=== PATIENT | female | born 1955 | race Caucasian/White ===

== ENCOUNTER 2023-06-15 20:23 | Observation (INO) | payer MEDICARE, SELFPAY ==
[2023-06-15] VITALS (32 sets, daily range): BP systolic 128–182; BP diastolic 69–104; PULSE 64–84; RESP 11–28; O2SAT 94–97; BMI 34.6
--- NOTE | 2023-06-15 20:39 | ECG_ITS ---
[facility] Test Date: 2023-06-15 Pat Name: MARTHA AVILA Department: Room: 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
--- NOTE | 2023-06-15 20:39 | XR_ITS ---
The [address] [address] Patient Name: MARTHA AVILA MRN: [id number] date: 1955 Sex: F Assigned Patient Location: ED.MAIN Current Patient Location: ER Accession/Order Number: [id number] Exam Date: 06/15/2023 21:19 Report Date: 06/15/2023 21:42 At the request of: MELLISSA WALKER Procedure: XR chest 1V EXAM: XR chest 1V HISTORY: Chest pain COMPARISON: 03/28/2022. TECHNIQUE: AP view of the chest FINDINGS: There is no focal airspace consolidation. There are mild reticular opacities in bilateral lower lungs and lingula, consistent with scarring or mild atelectasis. The cardiomediastinal silhouette is not enlarged. Median sternotomy wires and mediastinal surgical clips consistent with CABG. No evidence of pleural effusion or pneumothorax are identified. No acute osseous abnormality. XR/XR chest 1V IMPRESSION: No acute cardiopulmonary process. EXAM: XR shoulder LT min 2V HISTORY: Numbness in the left arm. COMPARISON: 06/29/2019. TECHNIQUE: 3 views of the left shoulder were obtained. FINDINGS: There is no radiographic evidence of acute fracture or dislocation. No significant focal osseous or articular abnormalities are identified. Soft tissues are grossly within normal limits. IMPRESSION: No acute osseous or joint abnormality. Electronically authenticated by: ISRA VINESU Date: 06/15/2023 21:42
[2023-06-15] MEDS: NITROGLYCERIN 0.4 MG TAB.SUBL PO (20:43)
[2023-06-15 20:48] LABS: Basophils Absolute Auto 0.1 10^3/uL (0.0-0.1); Basophils Percent Auto 1.1 % (0.2-2.0); Eosinophils Absolute Auto 0.5 10^3/uL (0.0-0.7); Eosinophils Percent Auto 4.3 % (0.9-7.0); Hematocrit 40.6 % (36.0-48.0); Hemoglobin 14.2 g/dL (12.0-16.0); Immature Granulocytes Abs Auto 0.04 10^3/uL (0.00-0.03); Immature Granulocytes Pct Auto 0.4 % (0.0-0.5); Lymphocytes Absolute Auto 3.7 10^3/uL (1.2-3.8); Lymphocytes Percent Auto 33.7 % (20.5-60.0); Mean Corpuscular Hemoglobin 30.7 pg (26.7-34.0); Mean Corpuscular Volume 87.7 fL (81.0-99.0); Mean Platelet Volume 11.1 fL (9.5-13.5); Monocytes Absolute Auto 0.8 10^3/uL (0.3-0.8); Monocytes Percent Auto 7.1 % (1.7-12.0); Neutrophils Absolute Auto 5.9 10^3/uL (1.4-6.5); Neutrophils Percent Auto 53.4 % (43.0-75.0); Platelet Count 257 10^3/uL (150-450); Red Blood Count 4.63 10^6/uL (4.20-5.40); Red Cell Distribution Width 12.4 % (11.0-15.0); White Blood Count 11.1 10^3/uL (4.0-11.0)
--- NOTE | 2023-06-15 20:48 | XR_ITS ---
The [address] [address] Patient Name: MARTHA AVILA MRN: [id number] date: 1955 Sex: F Assigned Patient Location: ED.MAIN Current Patient Location: ER Accession/Order Number: [id number] Exam Date: 06/15/2023 21:19 Report Date: 06/15/2023 21:42 At the request of: MELLISSA WALKER Procedure: XR shoulder LT min 2V EXAM: XR chest 1V HISTORY: Chest pain COMPARISON: 03/28/2022. TECHNIQUE: AP view of the chest FINDINGS: There is no focal airspace consolidation. There are mild reticular opacities in bilateral lower lungs and lingula, consistent with scarring or mild atelectasis. The cardiomediastinal silhouette is not enlarged. Median sternotomy wires and mediastinal surgical clips consistent with CABG. No evidence of pleural effusion or pneumothorax are identified. No acute osseous abnormality. XR/XR shoulder LT min 2V IMPRESSION: No acute cardiopulmonary process. EXAM: XR shoulder LT min 2V HISTORY: Numbness in the left arm. COMPARISON: 06/29/2019. TECHNIQUE: 3 views of the left shoulder were obtained. FINDINGS: There is no radiographic evidence of acute fracture or dislocation. No significant focal osseous or articular abnormalities are identified. Soft tissues are grossly within normal limits. IMPRESSION: No acute osseous or joint abnormality. Electronically authenticated by: ISRA CASTELLON Date: 06/15/2023 21:42
[2023-06-15] MEDS: MORPHINE SULFATE 2 MG/ML SYRINGE IV (20:51)
--- NOTE | 2023-06-15 20:51 | ED.CHESTPAI1 ---
HPI - Chest Pain General Chief Complaint: Chest Pain Stated Complaint: CHEST PAIN Time Seen by Provider: 06/15/23 20:30 Related Data Home Medications Medication Instructions Recorded Confirmed carvedilol 25 mg tablet 25 mg PO DAILY 06/15/23 06/15/23 clopidogrel 75 mg tablet 75 mg PO DAILY 06/15/23 06/15/23 duloxetine 60 mg capsule,delayed 60 mg PO DAILY 06/15/23 06/15/23 release glimepiride 4 mg tablet 4 mg PO DAILY 06/15/23 06/15/23 insulin NPH-regular 70-30 U-100 subcut 06/15/23 insulin 100 unit/mL subcutaneous pen (Novolin 70-30 FlexPen U-100 Insulin) irbesartan 150 mg tablet 150 mg PO DAILY 06/15/23 06/15/23 pantoprazole 40 mg tablet,delayed 40 mg PO DAILY 06/15/23 06/15/23 release simvastatin 40 mg tablet 40 mg PO DAILY 06/15/23 06/15/23 tizanidine 4 mg tablet 4 mg PO Q8H PRN muscle spasticity 06/15/23 06/15/23 Allergies Allergy/AdvReac Type Severity Reaction Status Date / Time acetaminophen Allergy Intermediate Hives Verified 06/15/23 20:49 [From Excedrin Migraine] aspirin Allergy Intermediate Hives Verified 06/15/23 20:49 [From Excedrin Migraine] caffeine Allergy Intermediate Hives Verified 06/15/23 20:49 [From Excedrin Migraine] sumatriptan [From Imitrex] Allergy Intermediate Nausea Verified 06/15/23 20:49 topiramate [From Topamax] Allergy Intermediate Nausea Verified 06/15/23 20:49 Iodinated Contrast Media Allergy Mild Hives Verified 06/15/23 20:49 lisinopril AdvReac Severe Swelling Verified 06/15/23 20:49 of Lip/Tongue/Throat Exam Constitutional Vital Signs, click to edit/add: Last Vital Signs Pulse 65 06/15/23 23:30 Resp 17 06/15/23 23:30 BP 139/72 06/15/23 23:30 Pulse Ox 95 06/15/23 22:50 O2 Del Method Room Air 06/15/23 20:30 Course Vital Signs Vital signs: Vital Signs Pulse Rate 78 06/15/23 20:30 Respiratory Rate 24 06/15/23 20:30 Blood Pressure 158/87 H 06/15/23 20:30 Pulse Oximetry 97 06/15/23 20:30 Oxygen Delivery Method Room Air 06/15/23 20:30 Pulse Rate 65 06/15/23 23:30 Respiratory Rate 17 06/15/23 23:30 Blood Pressure 139/72 06/15/23 23:30 Pulse Oximetry 95 06/15/23 22:50 Oxygen Delivery Method Room Air 06/15/23 20:30 MDM - Chest Pain MDM Narrative Medical decision making narrative: Patient EKG showing sinus rhythm with a heart rate of [address] elevation or depression compared to the old EKG The patient CBC and chemistry showed no acute significant pathology the troponin was repeated twice and was found to be negative yet her initial treatment with morphine and Toradol did not control the pain adequately she still have pain 7 out of 10 X-ray of the left shoulder as well as x-ray of the chest showed no acute significant pathology The patient is high risk with her heart score being 5 I will keep the patient for observation The patient case was discussed with Dr. Saavedra and he will admit the pt for observation pt admitteed under Dr Mclain Lab Data Labs: Lab Results 06/15/23 06/15/23 Range/Units 20:37 22:22 WBC 11.1 H (4.0-11.0) 10^3/uL RBC 4.63 (4.20-5.40) 10^6/uL Hgb 14.2 (12.0-16.0) g/dL Hct 40.6 (36.0-48.0) % MCV 87.7 (81.0-99.0) fL MCH 30.7 (26.7-34.0) pg MCHC 35.0 (29.9-35.2) g/dL RDW 12.4 (11.0-15.0) % Plt Count 257 (150-450) 10^3/uL MPV 11.1 (9.5-13.5) fL Neut % (Auto) 53.4 (43.0-75.0) % Lymph % (Auto) 33.7 (20.5-60.0) % [place] % (Auto) 7.1 (1.7-12.0) % Eos % (Auto) 4.3 (0.9-7.0) % Baso % (Auto) 1.1 (0.2-2.0) % Neut # (Auto) 5.9 (1.4-6.5) 10^3/uL Lymph # (Auto) 3.7 (1.2-3.8) 10^3/uL [place] # (Auto) 0.8 (0.3-0.8) 10^3/uL Eos # (Auto) 0.5 (0.0-0.7) 10^3/uL Baso # (Auto) 0.1 (0.0-0.1) 10^3/uL Abs Immat Gran (auto) 0.04 H (0.00-0.03) 10^3/uL Imm/Tot Granulo (auto) 0.4 (0.0-0.5) % Sodium 136 (136-145) mmol/L Potassium 4.0 (3.5-5.1) mmol/L Chloride 99 (98-107) mmol/L Carbon Dioxide 26.4 (21.0-32.0) mmol/L Anion Gap 14.6 BUN 16.0 (7.0-18.0) mg/dL Creatinine 1.16 H (0.55-1.02) mg/dL Est GFR ( Amer) 57 L (>=60) Est GFR (Non-Af Amer) 47 L (>=60) BUN/Creatinine Ratio 13.8 Glucose 350 H (74-106) mg/dL Calcium 9.0 (8.5-10.1) mg/dL Total Bilirubin 0.6 (0.2-1.0) mg/dL AST 9 L (15-37) U/L ALT 19 (14-59) U/L Alkaline Phosphatase 116 (46-116) U/L Troponin I High Sens 6.0 6.0 (4.0-51.3) pg/mL Total Protein 7.8 (6.4-8.2) g/dL Albumin 4.3 (3.4-5.0) g/dL Globulin 3.5 g/dL Albumin/Globulin Ratio 1.2 Heart Score History: Moderatly Suspicious ECG: Normal Age: >65 years Risk Factors: >3 Risk Factors/ HX of CAD:2 Troponin: <Normal Limit Total Heart Score Recommendations & Risks:: 5 Discharge Plan Discharge Chief Complaint: Chest Pain Clinical Impression: Chest pain Patient Disposition: Admitted as Observation Time of Disposition Decision: 23:59 Condition: Good
[2023-06-15] MEDS: KETOROLAC TROMETHAMINE 30 MG/ML VIAL 15 MG IVP (20:55)
[2023-06-15] MEDS: FAMOTIDINE/PF 20 MG/2 ML VIAL IV (20:55)
[2023-06-15 21:01] LABS: Alanine Aminotransferase 19 U/L (14-59); Albumin Globulin Ratio 1.2; Albumin Level 4.3 g/dL (3.4-5.0); Alkaline Phosphatase 116 U/L (46-116); Anion Gap 14.6; Aspartate Amino Transferase 9 U/L (15-37); BUN Creatinine Ratio 13.8; Bilirubin Total 0.6 mg/dL (0.2-1.0); Carbon Dioxide 26.4 mmol/L (21.0-32.0); Chloride 99 mmol/L (98-107); Estimated GFR (African America 57 (>=60); Estimated GFR (Non-African Ame 47 (>=60); Globulin 3.5 g/dL; Glucose 350 mg/dL (74-106); Sodium 136 mmol/L (136-145); Total Protein 7.8 g/dL (6.4-8.2)
[2023-06-15] MEDS: MORPHINE SULFATE 2 MG/ML SYRINGE 1 MG IV (23:58)
[2023-06-15] MEDS: ACETAMINOPHEN 325 MG TABLET 650 MG PO (23:59)
[2023-06-16] VITALS (16 sets, daily range): BP systolic 129–172; BP diastolic 68–96; PULSE 55–68; RESP 9–21; TEMP 36.1–36.6; O2SAT 94–99; BMI 35.8
--- NOTE | 2023-06-16 04:32 | ECG_ITS ---
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
--- NOTE | 2023-06-16 04:32 | CA_ITS ---
Patient: MARTHA AVILA Exam Date: 06/16/2023 : 1955 Gender:F Ordering : DR ROBIN PONCE . Admission #: [id number] Family : Order #: [id number] CLICK HERE TO VIEW EXAM ECHOCARDIOGRAM REPORT PROCEDURE: CA ECHO DOPPLER COMPLETE INDICATIONS: chest pain COMPARISON: None. DESCRIPTION: COMPLETE ECHOCARDIOGRAM Real-time transthoracic echocardiography with 2D, M-mode, spectral and color flow Doppler performed. QUALITY: Technical quality was adequate. LEFT VENTRICLE: Normal chamber size. Moderate concentric left ventricular hypertrophy. Global left ventricular systolic function is normal. LV EF: Estimated left ventricular ejection fraction is 60%. DIASTOLIC: Normal diastolic function. ATRIAL SEPTUM: LEFT ATRIUM: Normal chamber size. RIGHT ATRIUM: Normal chamber size. RIGHT VENTRICLE: Normal chamber size. Normal right ventricular systolic function. TRICUSPID VALVE: Normal mobility and thickness. No stenosis with mild to moderate regurgitation. No evidence of pulmonary hypertension. RVSP 27 mmHg MITRAL VALVE: Normal mobility and thickness. No evidence of mitral valve stenosis. Mild mitral annular calcification. Mild mitral regurgitation. AORTIC VALVE: Normal trileaflet appearance. No visible sclerosis. Normal leaflet mobility. No evidence of aortic valve stenosis. No aortic regurgitation. AORTIC ROOT: Normal diameter and appearance. PULMONIC VALVE: Normal thickness and mobility. No stenosis. Trivial regurgitation. PERICARDIUM: No evidence of pericardial effusion. IVC: Collapses with inspirations. Normal size. PLEURA: CONCLUSION: 1. Mild concentric left ventricular hypertrophy with normal systolic function. LVEF is 60%. 2. Normal right ventricular size and systolic function. 3. Mild mitral regurgitation. 4. Mild to moderate tricuspid regurgitation. 5. Normal right-sided pressures. 6. No pericardial effusion. Adult Echocardiography Procedure Report Left Ventricle LVEDD (3.7 - 5.6 cm): 4.45 cm LVESD (2.2 - 4.0 cm): 3.17 cm LVIVS thickness (0.6 - 1.2 cm): 1.37 cm LVPW thickness (0.5 - 1.0 cm): 1.46 cm e': 0.11 m/s E - e': 6.58 LVOT Max Gradient: 2.21 mm[Hg] LVOT Area (cm2): 0.74 m/s Peak Velocity (LVOT): 0.74 m/s Mean Velocity (LVOT): 0.53 m/s LVOT Diameter 2.22 cm Left Ventricular Ejection Fraction: 60 % Left Atrium LA Volume Index (2D A2C): 29.71 ml/m2 Left Atrium Systolic Dimension: 4.14 cm Mitral Valve MV E to A Ratio: 0.85 Mitral Valve A-Wave Peak Velocity: 0.84 m/s Mitral Valve E-Wave Peak Velocity: 0.71 m/s Right Ventricle RV Internal Diastolic Dimension: 3.59 cm Aorta AO Root Diam: 3.54 cm Ascending Ao Diam: 3.03 cm Aortic Valve AoV Area (Peak Wiliam): 2.70 cm2, 2.70 cm2 AoV Area (VTI): 2.80 cm2, 2.80 cm2 Peak Velocity(Antegrade Flow): 1.06 m/s Peak Gradient(Antegrade Flow): 4.52 mm[Hg] Mean Velocity(Antegrade Flow): 0.79 m/s Mean Gradient(Antegrade Flow): 2.67 mm[Hg] Velocity Time Integral: 26.70 cm Tricuspid Valve Peak Velocity (Regurgitant Flow): 2.33 m/s, 2.42 m/s, 2.45 m/s Pulmonic Valve Mean Gradient: 1.77 mm[Hg] Mean Velocity: 0.62 m/s Peak Velocity: 0.91 m/s, 0.95 m/s Peak Gradient: 3.64 mm[Hg], 3.32 mm[Hg] Right Atrium Right Atrium Systolic Pressure: 55.37 ml, 55.37 ml Dictated by: Javed Santana M.D. on 06/16/2023 at 17:36 Approved by: Javed Santana M.D. on 06/16/2023 at 17:38
--- NOTE | 2023-06-16 04:38 | W.PM.TELEPN ---
Progress Note: Subjective Subjective Interval history: Retrosternal pressure-like chest pain radiating to left shoulder and accompanied by tingling of the left and HPI: This is a 67 years old female with past medical history significant for coronary artery disease, diabetes, dyslipidemia, obesity who presents with above complaints. Patient stating that she has been in her usual state of health prior to developing above symptoms she also complains of shortness of breath. No fever or chills. No nausea or vomiting. Evaluation in the emergency room has been unremarkable including 2 sets of cardiac enzymes and electrocardiogram. Admitted for further work-up. Exam Narrative Exam Narrative: Physical Exam: Not in distress, pleasant, lucid, cooperative, obese, Head - atraumatic, eyes - pupils equal, round, reactive to light, extra ocular movement intact, MMM Neck - supple, thyroid not enlarged, LN not palpated Lungs - clear to auscultation, no dullness on percussion CVS - heart sounds S1, S2, no additional murmurs gallop, regular rate and rhythm Gastrointestinal?abdomen is soft, non-tender, non-distended, no organomegaly, positive bowel sounds Extremities no clubbing, cyanosis or edema Neurological?cranial nerve II?XII grossly intact, no meningeal signs, no cerebellar signs, no sensory deficit Musculoskeletal - DJD related changes in multiple joints, no effusions, ROM preserved Dermatological - the skin dry, warm, no rashes Psychiatric?patient is AAO X3, patient has normal affect Constitutional Vital Signs, click to edit/add: Last Vital Signs Temp 97.7 F 06/16/23 00:38 Pulse 64 06/16/23 04:00 Resp 18 06/16/23 02:00 BP 129/78 06/16/23 00:38 Pulse Ox 94 L 06/16/23 02:00 O2 Del Method Room Air 06/16/23 02:00 Progress Note: Objective Labs Labs: Short CBC 06/15/23 Range/Units 20:37 WBC 11.1 H (4.0-11.0) 10^3/uL Hgb 14.2 (12.0-16.0) g/dL Hct 40.6 (36.0-48.0) % Plt Count 257 (150-450) 10^3/uL BMP 06/15/23 20:37 Sodium 136 Potassium 4.0 Chloride 99 Carbon Dioxide 26.4 BUN 16.0 Creatinine 1.16 H Glucose 350 H Calcium 9.0 Liver Function 06/15/23 Range/Units 20:37 Total Bilirubin 0.6 (0.2-1.0) mg/dL AST 9 L (15-37) U/L ALT 19 (14-59) U/L Alkaline Phosphatase 116 (46-116) U/L Albumin 4.3 (3.4-5.0) g/dL Progress Note: A&P Assessment and Plan (1) Chest pain: Assessment and Plan: CAD - patient's condition is guarded and requires admission to telemetry floor for close monitoring and medical management - continue to trend Marina to r/u possibility of acute coronary event - will make sure that patient is on at least moderate potency dose of Atorvastatin, full dose of EC ASA (for now), BBs and ACEI if not contraindicated - will order an ECHO to look for wall motion abnormalities and evaluate valvular structures - Consider consulting Metal Organ Pipe Maker to assist with management (2) Diabetes mellitus: Assessment and Plan: DM- continue with ADA diet - hold off oral hypoglycemic agents while in the hospital to avoid hypoglycemic episodes - frequent accuchecks (TID AC + HS) - will provide coverage with long acting insulin as well as short acting insulin with meals - adjust as needed - hypoglycemia protocol in place (3) Coronary stent occlusion: Onset Date: ~2011 Assessment and Plan: As above (4) Aorta aneurysm: (5) CVA (cerebral vascular accident): Assessment and Plan: Evaluation in the emergency room has been negative for any signs of ruptured aneurysm Plan While examining the patient and noted that patient developed left-sided facial droop and relative weakness?patient's left arm is weaker than right and she cannot move her left leg. Code stroke activated. Waiting for further recommendation from neurologist. END: As the provider for the telehealth service, I attest that I introduced myself to the patient, provided my credentials, disclosed by location and determined that based on a review of the patient's chart and discussion with members of the patient's treatment team, telemedicine via real-time, 2 way, and interactive audio and video platform is an appropriate and effective means of providing the service. ?The patient and I mutually agree this visit is appropriate for telemedicine. ?The virtual encounter was taken place from? [facility] [place]. ?The encounter took approximately 35 minutes. ?The nurse was present during the entire time and I was able to move the stethoscope in appropriate directions. ?The patient was evaluated at the Hospital ? Portions of this note may be dictated using [employer] voice recognition software. Variances in spelling and vocabulary are possible and unintentional. Not all errors may be caught and/or corrected. Please notify the author if any discrepancies are noted and/or if the meaning of any statement is unclear.? ? Patient verbally consented for treatment via video visit with patient currently located at [facility] and provider located in [place]. Telemedicine Attestation Telemedicine Attestation I conducted this encounter from [[place]] via secure live, [id number] video conference with the patient, located at [facility] with []. Prior to the interview, the risks and benefits of telemedicine were discussed with the patient and verbal consent was obtained.
--- NOTE | 2023-06-16 04:48 | CT_ITS ---
[address] [address] Patient Name: MARTHA AVILA MRN: [id number] date: 1955 Sex: F Assigned Patient Location: ICU Current Patient Location: ICU Accession/Order Number: [id number] Exam Date: 06/16/2023 04:55 Report Date: 06/16/2023 05:23 At the request of: MELLISSA WALKER Procedure: CT head/brain wo con EXAMINATION: CT head/brain wo con, 06/16/2023 4:55 AM EDT HISTORY: Stroke symptoms COMPARISON: 03/28/2022 TECHNIQUE: CT scan of the head was performed without IV contrast. CT dose reduction technique was used, including Automated Exposure Control. FINDINGS: BRAIN: No edema, hemorrhage, mass, acute infarction, or inappropriate atrophy. CSF SPACES: No hydrocephalus, subarachnoid hemorrhage, or mass. Appropriate for age. SKULL: No fracture, mass, or other significant visible lesion. Hyperostosis frontalis interna SINUSES: No significant mucosal thickening or fluid on the limited views. ORBITS: No appreciable abnormality on the limited views. OTHER: Vascular calcifications CT/CT head/brain wo con IMPRESSION: No acute intracranial abnormality Electronically authenticated by: MIKAEL WILHELM Date: 06/16/2023 05:23
[2023-06-16] MEDS: KETOROLAC TROMETHAMINE 30 MG/ML VIAL 15 MG IVP (04:50)
[2023-06-16 04:56] LABS: Glucometer 324 mg/dL (74-106)
[2023-06-16 05:17] LABS: Basophils Absolute Auto 0.1 10^3/uL (0.0-0.1); Basophils Percent Auto 1.2 % (0.2-2.0); Eosinophils Absolute Auto 0.4 10^3/uL (0.0-0.7); Eosinophils Percent Auto 5.1 % (0.9-7.0); Hematocrit 38.8 % (36.0-48.0); Hemoglobin 13.3 g/dL (12.0-16.0); Immature Granulocytes Abs Auto 0.04 10^3/uL (0.00-0.03); Immature Granulocytes Pct Auto 0.5 % (0.0-0.5); Lymphocytes Absolute Auto 3.2 10^3/uL (1.2-3.8); Lymphocytes Percent Auto 37.1 % (20.5-60.0); Mean Corpuscular HGB Conc 34.3 g/dL (29.9-35.2); Mean Corpuscular Hemoglobin 30.8 pg (26.7-34.0); Mean Corpuscular Volume 89.8 fL (81.0-99.0); Mean Platelet Volume 10.9 fL (9.5-13.5); Monocytes Absolute Auto 0.6 10^3/uL (0.3-0.8); Monocytes Percent Auto 7.5 % (1.7-12.0); Neutrophils Absolute Auto 4.1 10^3/uL (1.4-6.5); Neutrophils Percent Auto 48.6 % (43.0-75.0); Platelet Count 210 10^3/uL (150-450); Red Blood Count 4.32 10^6/uL (4.20-5.40); Red Cell Distribution Width 12.3 % (11.0-15.0); White Blood Count 8.5 10^3/uL (4.0-11.0)
[2023-06-16 05:32] LABS: Chol HDL Ratio 2.8; Cholesterol 107 mg/dL (<=200); HDL Cholesterol 38 mg/dL (40-60); Prealbumin 26.4 mg/dL (20.9-45.5); Triglycerides 187 mg/dL (<=150); VLDL CHOLESTEROL 37.4 mg/dL
[2023-06-16 05:34] LABS: Troponin I High Sensitivity 6.6 pg/mL (4.0-51.3)
[2023-06-16 05:43] LABS: Partial Thromboplastin Time 26.8 sec (22.3-36.2)
--- NOTE | 2023-06-16 05:49 | PC.NURSE ---
04:08 Patient was sleeping when I walked into the room with Dr. Espinoza. When I woke the patient up to see the Dr. she was startled and said she can't stop shaking. After a few seconds Dr. Espinoza started his assessment on the patient. I noticed the patient was not speaking the same as she did earlier and was having difficulty remembering where she was and her name and situation. After Dr. Espinoza was done with his assessment I expressed to him that she has had a change in status and was behaving differently then she was when she came to the floor. Rik took Dr. Espinoza in to see another patient. I went back in to see Jessi and she was demonstrating severe weakness on the left hand side, slight droop in the corner of her mouth on the left side, she was not able to move her left arm or feel my hand on the left side of her face. She was also unable to tell me how she got to the hospital and her name. When she came up to the floor at 00:22 she was able to do all these acts. I called out for Rik QUEZADA and while he was doing his assessment I place 2L via NC on the patient. Patients VS were 160/85, pulse 68, O2 96%, Temperature 97.7, Respirations 18. While Rik finished his assessment, I contacted the sheet metal shop supervisor Steve QUEZADA as well as Dr. Espinoza. At 04:24 Dr. Espinoza instructed me to call a stroke code and we transferred the patient to the ICU. I gave report to Maria Esther QUEZADA.
[2023-06-16 07:05] LABS: Anion Gap 13.8; BUN Creatinine Ratio 18.8; Carbon Dioxide 27.2 mmol/L (21.0-32.0); Chloride 99 mmol/L (98-107); Estimated GFR (African America 59 (>=60); Estimated GFR (Non-African Ame 49 (>=60); Glucose 339 mg/dL (74-106); Sodium 136 mmol/L (136-145)
--- NOTE | 2023-06-16 07:41 | PC.NURSE ---
perform pt physical assessment at 0222 on 06/16/23, pt wasable to answer all questions asked and expressed pain in her chest or a squeezing feeling. noticed that there was a minute difference in pt grasp strength and after getting a history from pt that included stnts from a [place] asked if she ever had a stroke. pt stated she had a stroke in 2018, neuro checks at this time were negative. telehspitalist got back wi us @ 0400 and did his initial admit assessment, during the assessment nurse noticeda change in pt condition, called for myself and after assessing the pt found pt was not alert and oriented as before, left side was markedly weaker, and patient had troubleanswering even questions about her name. other nurse present was notifying the telehospitalist, I notified the cleaning supervisor and a plan was made to transfer to ICU and have pt re-evaluated by ER physician on condition. She did not remeber the ER doctor and a marked left side weaknes in the leg was noted. transfer care to ER nurse.
[2023-06-16 07:50] LABS: Glucometer 291 mg/dL (74-106)
--- NOTE | 2023-06-16 07:55 | MR_ITS ---
The [address] [address] Patient Name: MARTHA AVILA MRN: [facility]:[id number] date: 1955 Sex: F Assigned Patient Location: ICU Current Patient Location: ICU Accession/Order Number: [id number] Exam Date: 06/16/2023 08:30 Report Date: 06/16/2023 09:34 At the request of: ROBIN PONCE Procedure: MR head/brain wo con EXAM: MR head/brain wo con CLINICAL INDICATION: ams COMPARISON: CT head 06/16/2023. TECHNIQUE/PROTOCOL: Standard noncontrast protocol brain MRI performed (Sagittal T1 with axial T1, T2, GRE, FLAIR, and diffusion-weighted imaging). FINDINGS: No restricted diffusion, extra-axial fluid collection, hydrocephalus, midline shift, or other mass effect. Intracranial flow voids are maintained. Few punctate hyperintense T2/FLAIR periventricular and subcortical foci are likely on the basis of chronic microvascular angiopathic changes. Mild symmetric global volume loss without lobar predominance. Commensurate ventricular system caliber prominence. Normal marrow signal. No soft tissue abnormalities. Paranasal sinuses are well-aerated. Small right mastoid effusion. MR/MR head/brain wo con IMPRESSION: No acute intracranial process or recent infarction. Electronically authenticated by: ARTUR JEFFREY Date: 06/16/2023 09:34
[2023-06-16] MEDS: OMEPRAZOLE 20 MG CAPSULE.DR PO (08:26)
[2023-06-16] MEDS: INSULIN ASPART 300 UNIT/3 ML PEN SUBQ ×2 (08:26→12:39)
[2023-06-16] MEDS: DULOXETINE HCL 60 MG CAPSULE.DR PO (08:26)
[2023-06-16] MEDS: LOSARTAN POTASSIUM 50 MG TABLET PO (08:26)
[2023-06-16] MEDS: ATORVASTATIN CALCIUM 20 MG TABLET PO (08:27)
[2023-06-16] MEDS: CLOPIDOGREL BISULFATE 75 MG TABLET PO (08:27)
[2023-06-16] MEDS: ASPIRIN 81 MG TAB.CHEW PO (08:27)
[2023-06-16] MEDS: BUPROPION HCL 150 MG XL TABLET 24H PO (08:27)
[2023-06-16 08:50] LABS: Troponin I High Sensitivity 6.3 pg/mL (4.0-51.3)
--- NOTE | 2023-06-16 08:55 | P.HP_ITS ---
H&P: HPI History of Present Illness Chief complaint: CHEST PAIN Narrative: Patient presented to the emergency room with more left shoulder pain but describes some substernal nature to it as well. Was admitted for observation. Patient then developed difficulty with moving her left side. Some difficulty with her speech but it was was 4 in the morning. Staff noticed left facial droop. Stroke alert was instituted. Stroke team was consulted. [facility] Medical History (Updated 06/16/23 @ 04:41 by Farshad Saavedra MD) (~2011) Social History (Updated 06/16/23 @ 01:34 by Malcolm Hamilton) Within the past year, how often did you have a drink containing alcohol: never Score interpretation: A score less than 3 is consistent with normal alcohol consumption. Smoking status: Current every day smoker Non-prescribed substance use: denies use Feel stressed/tense/nervous/anxious/difficulty sleeping: only a little Life stressors: recent of family or friend Life stressor details: Husbands Due to disability, difficulty making decisions: No Meds Home Medications and Allergies Home Medications Medication Instructions Recorded Confirmed Type carvedilol 25 mg tablet 25 mg PO DAILY 06/15/23 06/16/23 History clopidogrel 75 mg tablet 75 mg PO DAILY 06/15/23 06/16/23 History duloxetine 60 mg capsule,delayed 60 mg PO DAILY 06/15/23 06/16/23 History release glimepiride 4 mg tablet 4 mg PO DAILY 06/15/23 06/16/23 History insulin NPH-regular 70-30 U-100 subcut 06/15/23 History insulin 100 unit/mL subcutaneous pen (Novolin 70-30 FlexPen U-100 Insulin) irbesartan 150 mg tablet 150 mg PO DAILY 06/15/23 06/16/23 History pantoprazole 40 mg tablet,delayed 40 mg PO DAILY 06/15/23 06/16/23 History release simvastatin 40 mg tablet 40 mg PO DAILY 06/15/23 06/16/23 History tizanidine 4 mg tablet 4 mg PO Q8H PRN muscle spasticity 06/15/23 06/16/23 History bupropion HCl 150 mg 24 hr tablet, 150 mg PO DAILY 06/16/23 06/16/23 History extended release diphenhydramine-phenylephrine 25 1 tab PO TID 06/16/23 06/16/23 History mg-10 mg tablet (Allergy and Sinus Relief) isosorbide mononitrate 60 mg 30 mg PO 06/16/23 History tablet,extended release 24 hr metoclopramide HCl 10 mg tablet mg 06/16/23 History Allergies Allergy/AdvReac Type Severity Reaction Status Date / Time acetaminophen Allergy Intermediate Hives Verified 06/15/23 20:49 [From Excedrin Migraine] aspirin Allergy Intermediate Hives Verified 06/15/23 20:49 [From Excedrin Migraine] caffeine Allergy Intermediate Hives Verified 06/15/23 20:49 [From Excedrin Migraine] sumatriptan [From Imitrex] Allergy Intermediate Nausea Verified 06/15/23 20:49 topiramate [From Topamax] Allergy Intermediate Nausea Verified 06/15/23 20:49 Iodinated Contrast Media Allergy Mild Hives Verified 06/15/23 20:49 lisinopril AdvReac Severe Swelling Verified 06/15/23 20:49 of Lip/Tongue/Throat Exam Constitutional Vital Signs, click to edit/add: Last Vital Signs Temp 97.9 F 06/16/23 08:12 Pulse 58 L 06/16/23 08:14 Resp 18 06/16/23 08:12 BP 145/74 H 06/16/23 08:12 Pulse Ox 98 06/16/23 08:12 O2 Del Method Room Air 06/16/23 08:12 O2 Flow Rate 2 06/16/23 06:05 Documenting provider has reviewed patient's vital signs: yes Common normals: no apparent distress HENMT Common normals: normocephalic (I did not notice any significant left facial droop) Chest Common normals: inspection of chest normal Respiratory Common normals: normal respiratory effort and clear to auscultation bilaterally Cardio Common normals: regular rate, regular rhythm and no murmurs GI Common normals: Normal to inspection, nondistended, normoactive bowel sounds present Neuro Common normals: oriented x3, CN's II-XII intact bilaterally and moves all extremities (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 weakness grant specialist Left sided- sl more than expected for being R handed) Results Labs Labs: Short CBC 06/15/23 06/16/23 Range/Units 20:37 05:05 WBC 11.1 H 8.5 (4.0-11.0) 10^3/uL Hgb 14.2 13.3 (12.0-16.0) g/dL Hct 40.6 38.8 (36.0-48.0) % Plt Count 257 210 (150-450) 10^3/uL BMP 06/15/23 06/16/23 20:37 05:05 Sodium 136 136 Potassium 4.0 4.0 Chloride 99 99 Carbon Dioxide 26.4 27.2 BUN 16.0 21.0 H Creatinine 1.16 H 1.12 H Glucose 350 H 339 H Calcium 9.0 9.0 Liver Function 06/15/23 Range/Units 20:37 Total Bilirubin 0.6 (0.2-1.0) mg/dL AST 9 L (15-37) U/L ALT 19 (14-59) U/L Alkaline Phosphatase 116 (46-116) U/L Albumin 4.3 (3.4-5.0) g/dL Assessment and Plan Assessment and Plan (1) Chest pain: (2) Diabetes mellitus: (3) Coronary stent occlusion: Onset Date: ~2011 (4) Aorta aneurysm: (5) CVA (cerebral vascular accident): Plan Chest pain with risk factors. - check echo, cardiac markers are neg - ecg unremarkable Left sided wakness - check ing MRI - unable to do CTA due to allergy, check carotid doppler, daughter feels is leda, to baseline but she didnt see her at 4 am. Poorly controlled DM - will work on med adjustments and diet - more as an outpt - Leukocytosis but no source - resolved today If all testing is neg - possible d/c to home with close follow up - see me later this week or next
--- NOTE | 2023-06-16 09:30 | US_ITS ---
[address] [address] Patient Name: MARTHA AVILA MRN: [id number] date: 1955 Sex: F Assigned Patient Location: ICU Current Patient Location: ICU Accession/Order Number: [id number] Exam Date: 06/16/2023 09:30 Report Date: 06/16/2023 12:03 At the request of: ROBIN PONCE Procedure: US carotid duplex BI EXAMINATION: US carotid duplex BI HISTORY: tia - left sided weakness COMPARISON: No relevant comparison available. TECHNIQUE: Duplex Doppler ultrasound analysis of carotid and vertebral arteries. . Bilateral carotid arterial duplex examination was performed using B-mode, color flow and spectral analysis. Carotid stenosis is reported according to validated velocity parameters, similar to NASCET criteria. FINDINGS: RIGHT CAROTID ARTERY: Mild plaque within bulb and proximal ICA without significant stenosis. RIGHT VERTEBRAL: Antegrade flow. Subclavian: PSV: 85.9 cm/s EDV: 5.1 cm/s CCA: Prox: PSV: 175.6 cm/s EDV: 22.3 cm/s Mid: PSV: 140.8 cm/s EDV: 17.7 cm/s Distal: PSV: 75.3 cm/s EDV: 12.3 cm/s BULB: PSV: 58.9 cm/s EDV: 13.8 cm/s ICA: Prox: PSV: 45.7 cm/s EDV: 13.8 cm/s Mid: PSV: 99.0 cm/s EDV: 29.6 cm/s Distal: PSV: 87.7 cm/s EDV: 18.2 cm/s ECA: PSV: 101.1 cm/s EDV: 10.7 cm/s VERTEBRAL: PSV: 30.3 cm/s EDV: 0.0 cm/s ICA/CCA ratio: PSV: 1.3 EDV: 2.4 LEFT CAROTID ARTERY: Mild plaque within bulb and proximal ICA without significant stenosis. LEFT VERTEBRAL: Antegrade flow. Subclavian: PSV: 159.5 cm/s EDV: 4.1 cm/s CCA: Prox: PSV: 108.2 cm/s EDV: 15.6 cm/s Mid: PSV: 68.1 cm/s EDV: 13.7 cm/s Distal: PSV: 73.2 cm/s EDV: 11.1 cm/s BULB: PSV: 50.0 cm/s EDV: 6.0 cm/s ICA: Prox: PSV: 83.6 cm/s EDV: 22.8 cm/s Mid: PSV: 82.3 cm/s EDV: 22.8 cm/s Distal: PSV: 109.5 cm/s EDV: 24.1 cm/s ECA: PSV: 75.8 cm/s EDV: 6.0 cm/s VERTEBRAL: PSV: 46.1 cm/s EDV: 12.4 cm/s ICA/CCA ratio: PSV: 1.5 EDV: 2.2 US/US carotid duplex BI IMPRESSION: 1. 0-49% flow stenosis within the right and left carotid arteries. 2. Mild atherosclerotic disease. Electronically authenticated by: MERCEDES ZEPEDA Date: 06/16/2023 12:03
--- NOTE | 2023-06-16 09:35 | CM.NOTE ---
Rounds made with Dr. Mclain. Potential discharge later today depending on MRI, Echo and carotids.
--- NOTE | 2023-06-16 11:22 | SWNOTE1 ---
SW met with pt to discuss dc needs. Pt's daughter in room as well. Pt lives at home by herself. She is independent at home and has been up independently in room as well during stay at hospital. Pt's daughter lives in [place] and helps any time pt needs anything. Pt does not voice any discharge concerns or needs at this time. Pt and daughter did want to know who was listed on her Health care power of assistant city attorney. SW went in to old system and printed her HCPOA and living will. Daughter is listed as secondary. SW gave daughter a copy. Pt's has passed and he was the POA, but SW advised it will go to daughter as she is listed. Daughter and pt asked about DNR, SW advised to address with her primary care physician. No other needs at this time. ANNE MARIE reviewed PHILLIPS form with pt, she voiced understanding, no questions. Pt signed PHILLIPS form and a copy was placed in chart and original given to patient.
[2023-06-16 11:31] LABS: Troponin I High Sensitivity 5.8 pg/mL (4.0-51.3)
[2023-06-16] MEDS: TIZANIDINE HCL 4 MG TABLET PO (11:50)
[2023-06-16 12:21] LABS: Glucometer 179 mg/dL (74-106)
--- NOTE | 2023-06-24 14:55 | CM.DCFOLLOWU ---
3 discharge follow up call attempts were made, no answer.
== END 2023-06-16 14:50 | disposition home or self-care (01) ==
LOC: ER 23:59 → MS 06-16 00:23 → ICU 06-16 04:44
PROVIDERS: Admitting Provider Internal Medicine; Emergency Provider Emergency Medicine; PCP Family Medicine; Visit Provider Family Medicine
DX: R07.9 Chest pain, unspecified (principal); R53.1 Weakness; E11.65 Type 2 diabetes mellitus with hyperglycemia; D72.829 Elevated white blood cell count, unspecified; I25.10 Atherosclerotic heart disease of native coronary artery without angina pectoris; E78.5 Hyperlipidemia, unspecified; E66.9 Obesity, unspecified; R06.02 Shortness of breath; R29.810 Facial weakness; I71.9 Aortic aneurysm of unspecified site, without rupture; F17.210 Nicotine dependence, cigarettes, uncomplicated; Z79.899 Other long term (current) drug therapy; Z79.4 Long term (current) use of insulin; Z68.35 Body mass index [BMI] 35.0-35.9, adult
CPT/HCPCS: 36415; 70450; 70551; 71045; 73030; 80048; 80053; 80061; 82948; 83880; 84134; 84484; 85025; 85730; 93005; 93306; 93880; 94761; 96374; 96375; 96376; 99285; G0378; Q3014

== ENCOUNTER 2023-08-25 17:45 | Emergency (ER) | payer MEDICARE, SELFPAY ==
[2023-08-25 17:51] VITALS: BP 120/81; PULSE 100; RESP 20; TEMP 37.1; O2SAT 96; BMI 43.6
--- NOTE | 2023-08-25 18:22 | ED_ITS ---
HPI - General Adult General Chief complaint: Skin/Abscess/Foreign Body Stated complaint: URTI, Rash Time Seen by Provider: 08/25/23 17:55 Source: patient Mode of arrival: walk-in History of Present Illness HPI narrative: Patient is a 67-year-old female who presents to the Emergency Room with chief complaint of bilateral hand itching, rash, irritation, swelling. This has been ongoing for a week. Patient was placed on oral steroids to help with the rash noted to it is not improved and actually has made it worse according to the patient. Patient also had a injection into her left shoulder of cortisone by Dr. Mclain. Dr. Mclain prescribed the steroids to help with the hand rash/itching. Patient has been using Benadryl with little relief. Patient feels like the itching, rash and mild swelling is getting worse. No secondary signs of infection of abscess or cellulitis. Patient has her bilateral hands, forearms or elbows that are involved. Not her feet, legs, face, or any other areas of skin. Patient also has a mild sore throat that started today. Patient says that she's also had mild midepigastric irritation in the past couple days. She has a history of acid reflux. . All systems are negative except as noted/marked. All systems reviewed and otherwise negative. . Nurses note and vital signs reviewed and patient is not hypoxic. General: The patient appears well and in no apparent distress. Patient is resting comfortably on cart. Patient is not toxic, lethargic, or listless Skin: Warm, dry, no pallor noted. There is no rash noted. No petechiae, purpura. Patient does have small areas of burrowing and tracking to the dorsal aspect of bilateral hands, bilateral wrists, and into her right and left elbow. Patient has some mild redness to the area from itching and irritation, she has mild swelling to bilateral hands. She appears to have burrowing or tracking that could be representation of scabies, fleas or mites. No track guerrero that are concerning for any type of IV illicit drug use. Patient does not have this note d to her toes or feet bilateral. No skin involvement of the face or anywhere else patient states. Head: Normocephalic, atraumatic Eye: Normal conjunctiva, no drainage, EOMI. PERRL Ears, Nose, Mouth, and Throat: oral mucosa is moist. Nares patent. Mouth without vesicles. Cardiovascular: Regular Rate and Rhythm, no murmur, gallop, rub Respiratory: Patient is in no distress, Back: non-tender, GI: soft, no tenderness to palpation, Midepigastric tenderness to palpation. no masses appreciated. No rebound, guarding, or rigidity noted. No flank pain bilateral, No distention Musculoskeletal: Patient has full range of motion of all of the extremities, no motor, sensory, or focal neurological deficits Neurological: A&O x3, normal speech Psychiatric: Cooperative Related Data Home Medications Medication Instructions Recorded Confirmed carvedilol 25 mg tablet 25 mg PO DAILY 06/15/23 06/16/23 clopidogrel 75 mg tablet 75 mg PO DAILY 06/15/23 06/16/23 duloxetine 60 mg capsule,delayed 60 mg PO DAILY 06/15/23 06/16/23 release glimepiride 4 mg tablet 4 mg PO DAILY 06/15/23 06/16/23 insulin NPH-regular 70-30 U-100 subcut 06/15/23 insulin 100 unit/mL subcutaneous pen (Novolin 70-30 FlexPen U-100 Insulin) irbesartan 150 mg tablet 150 mg PO DAILY 06/15/23 06/16/23 pantoprazole 40 mg tablet,delayed 40 mg PO DAILY 06/15/23 06/16/23 release simvastatin 40 mg tablet 40 mg PO DAILY 06/15/23 06/16/23 tizanidine 4 mg tablet 4 mg PO Q8H PRN muscle spasticity 06/15/23 06/16/23 bupropion HCl 150 mg 24 hr tablet, 150 mg PO DAILY 06/16/23 06/16/23 extended release diphenhydramine-phenylephrine 25 1 tab PO TID 06/16/23 06/16/23 mg-10 mg tablet (Allergy and Sinus Relief) isosorbide mononitrate 60 mg 30 mg PO 06/16/23 tablet,extended release 24 hr metoclopramide HCl 10 mg tablet mg 06/16/23 Previous Rx's Medication Instructions Recorded hydroxyzine pamoate 50 mg capsule 50 mg PO Q8H PRN itching #10 caps 08/25/23 (Vistaril) permethrin 5 % topical cream 1 applic topical Q14D scabies 2 08/25/23 (Elimite) doses #60 grams Allergies Allergy/AdvReac Type Severity Reaction Status Date / Time acetaminophen Allergy Intermediate Hives Verified 06/15/23 20:49 [From Excedrin Migraine] aspirin Allergy Intermediate Hives Verified 06/15/23 20:49 [From Excedrin Migraine] caffeine Allergy Intermediate Hives Verified 06/15/23 20:49 [From Excedrin Migraine] sumatriptan [From Imitrex] Allergy Intermediate Nausea Verified 06/15/23 20:49 topiramate [From Topamax] Allergy Intermediate Nausea Verified 06/15/23 20:49 Iodinated Contrast Media Allergy Mild Hives Verified 06/15/23 20:49 lisinopril AdvReac Severe Swelling Verified 06/15/23 20:49 of Lip/Tongue/Throat PFSH PFSH Medical History (Updated 08/25/23 @ 18:16 by Yusef Ho MD) Achilles rupture ?S86.019A - Strain of unspecified Achilles tendon, initial encounter (ICD-10) Aorta aneurysm ?I71.9 - Aortic aneurysm of unspecified site, without rupture (ICD-10) Chest pain ?R07.9 - Chest pain, unspecified (ICD-10) Coronary stent occlusion (~2011) ?T82.897A - Other specified complication of cardiac prosthetic devices, implants and grafts, initial encounter (ICD-10) CVA (cerebral vascular accident) ?I63.9 - Cerebral infarction, unspecified (ICD-10) Diabetes mellitus ?E11.9 - Type 2 diabetes mellitus without complications (ICD-10) Social History (Updated 06/16/23 @ 01:34 by Malcolm Hamilton) Within the past year, how often did you have a drink containing alcohol: never Score interpretation: A score less than 3 is consistent with normal alcohol consumption. Smoking status: Current every day smoker Non-prescribed substance use: denies use Feel stressed/tense/nervous/anxious/difficulty sleeping: only a little Life stressors: recent of family or friend Life stressor details: Husbands Due to disability, difficulty making decisions: No Exam Constitutional Vital Signs, click to edit/add: Last Vital Signs Temp 98.7 F 08/25/23 17:51 Pulse 100 H 08/25/23 17:51 Resp 20 08/25/23 17:51 BP 120/81 08/25/23 17:51 Pulse Ox 96 08/25/23 17:51 O2 Del Method Room Air 08/25/23 17:51 Course Vital Signs Vital signs: Vital Signs Temperature 98.7 F 08/25/23 17:51 Pulse Rate 100 H 08/25/23 17:51 Respiratory Rate 20 08/25/23 17:51 Blood Pressure 120/81 08/25/23 17:51 Pulse Oximetry 96 08/25/23 17:51 Oxygen Delivery Method Room Air 08/25/23 17:51 Temperature 98.7 F 08/25/23 17:51 Pulse Rate 100 H 08/25/23 17:51 Respiratory Rate 20 08/25/23 17:51 Blood Pressure 120/81 08/25/23 17:51 Pulse Oximetry 96 08/25/23 17:51 Oxygen Delivery Method Room Air 08/25/23 17:51 Medical Decision Making MDM Narrative Medical decision making narrative: Patient has what could be representation of fleas, mites, or scabies. Patient carty s been on steroids for 1 week and with no improvement. Patient has been using Benadryl no help. Steroids patient believes is made it worse. Patient also has some mild epigastric discomfort, she has a history of acid reflux. Patient was educated on using Pepcid help with itching and acid reflux. Patient was Claritin and Zyrtec in the morning, continue Benadryl nighttime. Patient was given a prescription for Vistaril. Patient was given a prescription for Elimite. Patient was educated there is no improvement in rash and itching it didn't really, to call Dr. Mclain make an appointment and she'll need to follow up with dermatology. Patient understands this, no questions at discharge Discharge Plan Discharge Chief Complaint: Skin/Abscess/Foreign Body Clinical Impression: Scabies, Rash/skin eruption, Itching Patient Disposition: Home, Self-Care Condition: Good Prescriptions / Home Meds: New hydroxyzine pamoate [Vistaril] 50 mg capsule 50 mg PO Q8H PRN (Reason: itching) Qty: 10 0RF permethrin [Elimite] 5 % cream 1 applic topical Q14D Qty: 60 0RF Rx Instructions: apply To all areas of skin below your chin at bedtime, keep lotion on for 8- 10 hours, and take a shower and rinse it off. second treatment 14 days after first treatment if live rash remains No Action carvedilol 25 mg tablet 25 mg PO DAILY tizanidine 4 mg tablet 4 mg PO Q8H PRN (Reason: muscle spasticity) clopidogrel 75 mg tablet 75 mg PO DAILY simvastatin 40 mg tablet 40 mg PO DAILY pantoprazole 40 mg tablet,delayed release (DR/EC) 40 mg PO DAILY glimepiride 4 mg tablet 4 mg PO DAILY irbesartan 150 mg tablet 150 mg PO DAILY duloxetine 60 mg capsule,delayed release(DR/EC) 60 mg PO DAILY Novolin 70-30 FlexPen U-100 100 unit/mL (70-30) insulin pen SUBCUT isosorbide mononitrate 60 mg tablet extended release 24 hr 30 mg PO metoclopramide HCl 10 mg tablet Allergy and Sinus Relief 25-10 mg tablet 1 tab PO TID bupropion HCl 150 mg tablet extended release 24 hr 150 mg PO DAILY Instructions: Contact Dermatitis (ED), Scabies (ED), Itchy Skin (ED) Additional Instructions: Sleeping clean sheets tonight. Take a shower, and apply the lotion on all areas of skin from her neck down to toes. Keep lotion on for 8-10 hours. Take a shower in the morning and then wash her sheets and sleep and new sheets tomorrow night in her bed. He may repeat this in one week if needed. If no improvement by the end of the week, follow-up with Dr. Mclain again for reevaluation. For your sore throat and itching, use Claritin or Zyrtec in the morning and then use Benadryl at nighttime. Use Pepcid twice a day to help with itching And acid reflux as well. He may also take the Vistaril with the Benadryl needed to help with itching and sleeping. Stand Alone Forms: Portal Instructions Referrals: Danilo Mclain MD [Primary Care Provider] - 1 week
== END 2023-08-25 18:30 | disposition home or self-care (01) ==
PROVIDERS: Emergency Provider Emergency Medicine; PCP Family Medicine
DX: B86 Scabies (principal); R21 Rash and other nonspecific skin eruption; L29.9 Pruritus, unspecified; K21.9 Gastro-esophageal reflux disease without esophagitis; Z79.899 Other long term (current) drug therapy; Z79.4 Long term (current) use of insulin; E11.9 Type 2 diabetes mellitus without complications; F17.210 Nicotine dependence, cigarettes, uncomplicated; Z86.73 Personal history of transient ischemic attack (TIA), and cerebral infarction without residual deficits
CPT/HCPCS: 99283

== ENCOUNTER 2023-08-27 10:12 | Outpatient (OUT) | payer MEDICARE, SELFPAY ==
--- NOTE | 2023-08-27 10:17 | MM_ITS ---
Patient: MARTHA AVILA Exam Date: 08/27/2023 : 1955 Gender:F Ordering : DR Danilo Mclain . Admission #: [id number] Family : Order #: [id number] CLICK HERE TO VIEW EXAM RADIOLOGY REPORT PROCEDURE: MM TOMOSYNTHESIS SCREENING BI COMPARISON: MG MAMM SCREEN 3D FELY CAD, 01/04/2022. MG MAMM SCREEN FELY W CAD, 10/06/2020. MG MAMM SCREEN FELY W CAD, 09/20/2019. MG MAMM FELY SCRN W CAD DIG, 08/03/2015. INDICATIONS: Screening Calculator Name NCI Breast Cancer Risk Assessment Tool 5 Year Breast Cancer Risk 1.50% Lifetime Breast Cancer Risk 5.60% Personal Breast Cancer No Personal Ovarian Cancer No Treatments excision of cancerous lesion from bladder wall Family Cancers Grandmother-paternal with breast cancer at age ~75. LOCATION: [facility] BREAST COMPOSITION: Heterogeneously dense,which may obscure small masses. FINDINGS: DIAGNOSTIC CATEGORY 2--BENIGN FINDING: RIGHT BREAST: No significant suspicious finding. Scattered benign-appearing calcifications are present. No significant change has occurred. LEFT BREAST: No significant suspicious finding. Scattered benign-appearing calcifications are present. No significant change has occurred. RECOMMENDATIONS: ROUTINE MAMMOGRAM AND CLINICAL EVALUATION IN 12 MONTHS. PLEASE NOTE: A NORMAL MAMMOGRAM DOES NOT EXCLUDE THE POSSIBILITY OF BREAST CANCER. A CLINICALLY SUSPICIOUS PALPABLE LUMP SHOULD BE BIOPSIED. Dictated by: Bart Clark M.D. on 08/28/2023 at 10:41 Approved by: Bart Clark M.D. on 08/28/2023 at 10:50
== END 2023-08-27 10:13 | disposition home or self-care (01) ==
LOC: MAMMO 10:14
PROVIDERS: PCP Family Medicine; Visit Provider Family Medicine
DX: Z12.31 Encounter for screening mammogram for malignant neoplasm of breast (principal); Z80.3 Family history of malignant neoplasm of breast
CPT/HCPCS: 77063; 77067

== ENCOUNTER 2023-08-28 11:40 | Emergency (ER) | payer MEDICARE, SELFPAY ==
[2023-08-28 11:46] VITALS: BP 142/71; PULSE 70; RESP 16; TEMP 36.9; O2SAT 97; BMI 34.5
--- NOTE | 2023-08-28 13:42 | PC.NURSE ---
rash is noted and areas have scabbed over. pt c/o eye lids itching. no swelling of the face, lips or tongue
--- NOTE | 2023-08-28 13:44 | ED_ITS ---
HPI - Skin/Abscess/Foreign Bdy General Chief complaint: Skin/Abscess/Foreign Body Stated complaint: ITCHY/BROKE OUT/SPREADING TO EYES Time Seen by Provider: 08/28/23 13:10 Source: patient Mode of arrival: walk-in History of Present Illness HPI narrative: patient is a 67-year-old female well-known to this emergency department who presents to the Emergency Room for continued itching associated with the rash. She states that she was diagnosed with scabies earlier this week, she was seen by both this emergency Department and her PCP. She used permethrin last night, she states that she was on a very short course of steroids earlier this week from her PCP but she has now run out. She complains of continued itching and states that she is now itching around her eyes and is worried that the scabies is spreading to her eyes. She has had no drainage or visual changes. She is Benadryl once without improvement. Related Data Home Medications Medication Instructions Recorded Confirmed carvedilol 25 mg tablet 25 mg PO DAILY 06/15/23 06/16/23 clopidogrel 75 mg tablet 75 mg PO DAILY 06/15/23 06/16/23 duloxetine 60 mg capsule,delayed 60 mg PO DAILY 06/15/23 06/16/23 release glimepiride 4 mg tablet 4 mg PO DAILY 06/15/23 06/16/23 insulin NPH-regular 70-30 U-100 subcut 06/15/23 insulin 100 unit/mL subcutaneous pen (Novolin 70-30 FlexPen U-100 Insulin) irbesartan 150 mg tablet 150 mg PO DAILY 06/15/23 06/16/23 pantoprazole 40 mg tablet,delayed 40 mg PO DAILY 06/15/23 06/16/23 release simvastatin 40 mg tablet 40 mg PO DAILY 06/15/23 06/16/23 tizanidine 4 mg tablet 4 mg PO Q8H PRN muscle spasticity 06/15/23 06/16/23 bupropion HCl 150 mg 24 hr tablet, 150 mg PO DAILY 06/16/23 06/16/23 extended release diphenhydramine-phenylephrine 25 1 tab PO TID 06/16/23 06/16/23 mg-10 mg tablet (Allergy and Sinus Relief) isosorbide mononitrate 60 mg 30 mg PO 06/16/23 tablet,extended release 24 hr metoclopramide HCl 10 mg tablet mg 06/16/23 Previous Rx's Medication Instructions Recorded hydroxyzine pamoate 50 mg capsule 50 mg PO Q8H PRN itching #10 caps 08/25/23 (Vistaril) permethrin 5 % topical cream 1 applic topical Q14D scabies 2 08/25/23 (Elimite) doses #60 grams hydroxyzine HCl 25 mg tablet 25 mg PO Q6H PRN itching #20 tabs 08/28/23 permethrin 5 % topical cream 1 applic topical ONCE 1 dose #60 08/28/23 grams prednisone 20 mg tablet See Rx Instructions .Route 08/28/23 .COMPLEX #8 tabs Allergies Allergy/AdvReac Type Severity Reaction Status Date / Time acetaminophen Allergy Intermediate Hives Verified 06/15/23 20:49 [From Excedrin Migraine] aspirin Allergy Intermediate Hives Verified 06/15/23 20:49 [From Excedrin Migraine] caffeine Allergy Intermediate Hives Verified 06/15/23 20:49 [From Excedrin Migraine] sumatriptan [From Imitrex] Allergy Intermediate Nausea Verified 06/15/23 20:49 topiramate [From Topamax] Allergy Intermediate Nausea Verified 06/15/23 20:49 Iodinated Contrast Media Allergy Mild Hives Verified 06/15/23 20:49 lisinopril AdvReac Severe Swelling Verified 06/15/23 20:49 of Lip/Tongue/Throat Review of Systems ROS Constitutional Denies: fever or chills Ears, nose, mouth, and throat Denies: throat pain Cardiovascular Denies: chest pain Respiratory Denies: shortness of breath or cough Gastrointestinal Denies: nausea or vomiting Musculoskeletal Denies: back pain Integumentary/Breast Reports: rash and itching Neurological Denies: headache Hematologic/Lymphatic Denies: easy bruising Allergic/Immunologic Denies: hives [facility] Medical History (Updated 08/28/23 @ 13:48 by REYNA Ellis) Achilles rupture ?S86.019A - Strain of unspecified Achilles tendon, initial encounter (ICD-10) Aorta aneurysm ?I71.9 - Aortic aneurysm of unspecified site, without rupture (ICD-10) Chest pain ?R07.9 - Chest pain, unspecified (ICD-10) Coronary stent occlusion (~2011) ?T82.897A - Other specified complication of cardiac prosthetic devices, implants and grafts, initial encounter (ICD-10) CVA (cerebral vascular accident) ?I63.9 - Cerebral infarction, unspecified (ICD-10) Diabetes mellitus ?E11.9 - Type 2 diabetes mellitus without complications (ICD-10) Social History Within the past year, how often did you have a drink containing alcohol: never Score interpretation: A score less than 3 is consistent with normal alcohol consumption. Smoking status: Current every day smoker Non-prescribed substance use: denies use Feel stressed/tense/nervous/anxious/difficulty sleeping: only a little Life stressors: recent of family or friend Life stressor details: Husbands Due to disability, difficulty making decisions: No Exam Narrative Exam Narrative: Gen.: Awake, alert, in no distress Head: Normocephalic, atraumatic ENT: Moist mucous membranes; no facial swelling noted, no conjunctival erythema or injection Respiratory: No respiratory distress Extremities: Moves extremities equally Psych: Normal mood and affect Neuro: No focal neuro deficit Skin: Warm, dry, excoriated linear rash over the volar forearms; no extension of rash to the face, patient with no vesicles, crusting or excoriation of the face or eyes. Constitutional Vital Signs, click to edit/add: Last Vital Signs Temp 98.4 F 08/28/23 11:46 Pulse 70 08/28/23 11:46 Resp 16 08/28/23 11:46 BP 142/71 H 08/28/23 11:46 Pulse Ox 97 08/28/23 11:46 O2 Del Method Room Air 08/28/23 11:46 Course Vital Signs Vital signs: Vital Signs Temperature 98.4 F 08/28/23 11:46 Pulse Rate 70 08/28/23 11:46 Respiratory Rate 16 08/28/23 11:46 Blood Pressure 142/71 H 08/28/23 11:46 Pulse Oximetry 97 08/28/23 11:46 Oxygen Delivery Method Room Air 08/28/23 11:46 Temperature 98.4 F 08/28/23 11:46 Pulse Rate 70 08/28/23 11:46 Respiratory Rate 16 08/28/23 11:46 Blood Pressure 142/71 H 08/28/23 11:46 Pulse Oximetry 97 08/28/23 11:46 Oxygen Delivery Method Room Air 08/28/23 11:46 MDM - Skin/Abscess/Foreign Bdy MDM Narrative Medical decision making narrative: patient will be treated with a short course of steroids. She was counseled that because she is diabetic she will need to be very careful with her diet and monitor her sugars closely over the next several days to avoid significant hyperglycemia. She verbalizes understanding. This is reiterated by attending physician prior to discharge. Patient with a benign exam, consistent with scabies rash. She was instructed she may need to repeat that permethrin in seven days, she is given an extra prescription of permethrin for this. Atarax given for itching. Return to the Emergency Room if symptoms change or worsen. Medical Records Attestation: I reviewed the patient's medical records. Discharge Plan Discharge Chief Complaint: Skin/Abscess/Foreign Body Clinical Impression: Scabies, Itching Patient Disposition: Home, Self-Care Time of Disposition Decision: 13:48 Condition: Good Prescriptions / Home Meds: New permethrin 5 % cream 1 applic topical ONCE Qty: 60 0RF Rx Instructions: Apply to skin and wash off after 8-10 hours; apply 7 days after initial application prednisone 20 mg tablet See Rx Instructions .ROUTE .COMPLEX Qty: 8 0RF Rx Instructions: 3 tabs daily for 1 days, then 2 tabs daily for 2 days, then 1 tab daily for 1 days hydroxyzine HCl 25 mg tablet 25 mg PO Q6H PRN (Reason: itching) Qty: 20 0RF No Action hydroxyzine pamoate [Vistaril] 50 mg capsule 50 mg PO Q8H PRN (Reason: itching) Qty: 10 0RF permethrin [Elimite] 5 % cream 1 applic topical Q14D Qty: 60 0RF Rx Instructions: apply To all areas of skin below your chin at bedtime, keep lotion on for 8- 10 hours, and take a shower and rinse it off. second treatment 14 days after first treatment if live rash remains carvedilol 25 mg tablet 25 mg PO DAILY tizanidine 4 mg tablet 4 mg PO Q8H PRN (Reason: muscle spasticity) clopidogrel 75 mg tablet 75 mg PO DAILY simvastatin 40 mg tablet 40 mg PO DAILY pantoprazole 40 mg tablet,delayed release (DR/EC) 40 mg PO DAILY glimepiride 4 mg tablet 4 mg PO DAILY irbesartan 150 mg tablet 150 mg PO DAILY duloxetine 60 mg capsule,delayed release(DR/EC) 60 mg PO DAILY Novolin 70-30 FlexPen U-100 100 unit/mL (70-30) insulin pen SUBCUT isosorbide mononitrate 60 mg tablet extended release 24 hr 30 mg PO metoclopramide HCl 10 mg tablet Allergy and Sinus Relief 25-10 mg tablet 1 tab PO TID bupropion HCl 150 mg tablet extended release 24 hr 150 mg PO DAILY Instructions: Scabies (ED), Itchy Skin (ED) Stand Alone Forms: Portal Instructions Referrals: Danilo Mclain MD [Primary Care Provider] - 1 week
--- NOTE | 2023-08-28 13:48 | PC.NURSE ---
excoriated rash to lower forarms after being dignosed with scabies nd started on medication. She hasno fcial swelling or resp. problems
== END 2023-08-28 13:55 | disposition home or self-care (01) ==
PROVIDERS: Emergency Provider Emergency Medicine; PCP Family Medicine
DX: B86 Scabies (principal); L29.9 Pruritus, unspecified; Z79.899 Other long term (current) drug therapy; Z79.4 Long term (current) use of insulin; E11.9 Type 2 diabetes mellitus without complications; Z86.73 Personal history of transient ischemic attack (TIA), and cerebral infarction without residual deficits; F17.210 Nicotine dependence, cigarettes, uncomplicated
CPT/HCPCS: 99282

== ENCOUNTER 2023-11-11 13:20 | Emergency (ER) | payer MEDICARE, SELFPAY ==
[2023-11-11 13:30] VITALS: BP 175/72; PULSE 73; RESP 20; TEMP 36.7; O2SAT 98; BMI 34.1
--- NOTE | 2023-11-11 13:40 | CT_ITS ---
The [address] [address] Patient Name: MARTHA AVILA MRN: [id number] date: 1955 Sex: F Assigned Patient Location: ER Current Patient Location: ER Accession/Order Number: [id number] Exam Date: 11/11/2023 14:16 Report Date: 11/11/2023 14:44 At the request of: CORINA PRETTY Procedure: CT abdomen pelvis wo con EXAM: CT ABDOMEN AND PELVIS WITHOUT CONTRAST HISTORY: kidney stone low back pain, left lower abdominal pain for 5 days. COMPARISON: CT 04/01/2023 TECHNIQUE: Computed tomography of the abdomen and pelvis was performed without intravenous contrast with a renal stone protocol. Coronal and sagittal reformations were obtained. Dose reduction: mA and/or kV are adjusted by automated exposure control software based on patient size. FINDINGS: There is a 10 x 6 x 14 mm stone lodged at the left renal pelvis and is slightly increased in size from previous study. There are few additional nonobstructing stones clustered at the lower pole left kidney, largest is 5 x 5 x 6 mm. There is no left hydronephrosis but there is mild urothelial thickening at the left renal pelvis. There is no ureteral calculus or stone seen on the right side. No obstructive or inflammatory changes of the right kidney. Bladder is decompressed without bladder stone. Soft tissue structures are suboptimally evaluated without intravenous contrast. Liver and spleen size are normal. There is a 1.3 cm nodule interposed between the spleen and the upper pole of the left kidney, with punctate calcification is probably a tiny splenule rather than a stable nodule arising from the left kidney, and appearance is unchanged from 11/21/2021. No inflammation of the gallbladder or the fatty replaced pancreas. No radiopaque gallstones. Adrenal glands are normal. Small and large bowel loops are normal caliber. Small to moderate colonic stool burden. No focal bowel inflammation. There is atherosclerosis of the abdominal aorta and branch vessels, without abdominal aortic aneurysm. Uterus surgically absent no adnexal abnormality. No free fluid, mesenteric inflammation, or free air. Limited imaging of lower chest demonstrates clear lungs. Heart size within normal limits with coronary artery stents and median sternotomy changes noted. Bony structures are normal for age. There is a tiny fat-containing umbilical hernia. CT/CT abdomen pelvis wo con IMPRESSION: 1. 10 x 6 x 14 mm stone lodged at the left renal pelvis with mild urothelial thickening of the left renal pelvis reflecting inflammation, without hydronephrosis. The size of the stone has increased from prior study 04/01/2023. There are additional stones in the left kidney measuring up to 6 mm. 2. Negative for ureteral calculus. No right-sided renal stone or obstructive changes. 3. 1.3 cm soft tissue nodule interposed between the spleen and the upper pole of the left kidney and contains a punctate calcification, probably a tiny splenule and less likely a nodule arising from the left kidney, and appearance is unchanged from 11/21/2021. Attention on follow-up studies to document stability. 4. Hysterectomy, coronary artery stents, and additional incidental findings as described. Electronically authenticated by: ERASTO CHENG Date: 11/11/2023 14:44
--- NOTE | 2023-11-11 13:56 | ED.GENADUL1 ---
HPI - General Adult General Chief complaint: Abdominal Pain Stated complaint: ABDOMINAL/BACK PAIN Time Seen by Provider: 11/11/23 13:40 Source: patient Mode of arrival: walk-in Limitations: no limitations History of Present Illness HPI narrative: Patient is a 68-year-old female who presents to the emergency department for left flank pain that an approximately 1 week ago. She states she has a history of passing a kidney stone about 40 years ago, no history of stones since that time. She states her urine is starting to get slightly darker but she has not noted any blood. She has had frequent urination but no dysuria. She has not had any fevers or vomiting but does have nausea. She states the pain started in the left low back, no injuries or traumas. Pain is now radiating to the left lower quadrant of the abdomen. No medications taken prior to arrival. Related Data Home Medications Medication Instructions Recorded Confirmed carvedilol 25 mg tablet 25 mg PO DAILY 06/15/23 06/16/23 clopidogrel 75 mg tablet 75 mg PO DAILY 06/15/23 06/16/23 duloxetine 60 mg capsule,delayed 60 mg PO DAILY 06/15/23 06/16/23 release glimepiride 4 mg tablet 4 mg PO DAILY 06/15/23 06/16/23 insulin NPH-regular 70-30 U-100 subcut 06/15/23 insulin 100 unit/mL subcutaneous pen (Novolin 70-30 FlexPen U-100 Insulin) irbesartan 150 mg tablet 150 mg PO DAILY 06/15/23 06/16/23 pantoprazole 40 mg tablet,delayed 40 mg PO DAILY 06/15/23 06/16/23 release simvastatin 40 mg tablet 40 mg PO DAILY 06/15/23 06/16/23 tizanidine 4 mg tablet 4 mg PO Q8H PRN muscle spasticity 06/15/23 06/16/23 bupropion HCl 150 mg 24 hr tablet, 150 mg PO DAILY 06/16/23 06/16/23 extended release diphenhydramine-phenylephrine 25 1 tab PO TID 06/16/23 06/16/23 mg-10 mg tablet (Allergy and Sinus Relief) isosorbide mononitrate 60 mg 30 mg PO 06/16/23 tablet,extended release 24 hr metoclopramide HCl 10 mg tablet mg 06/16/23 Previous Rx's Medication Instructions Recorded hydroxyzine pamoate 50 mg capsule 50 mg PO Q8H PRN itching #10 caps 08/25/23 (Vistaril) permethrin 5 % topical cream 1 applic topical Q14D scabies 2 08/25/23 (Elimite) doses #60 grams hydroxyzine HCl 25 mg tablet 25 mg PO Q6H PRN itching #20 tabs 08/28/23 permethrin 5 % topical cream 1 applic topical ONCE 1 dose #60 08/28/23 grams prednisone 20 mg tablet See Rx Instructions .Route 08/28/23 .COMPLEX #8 tabs cephalexin 500 mg capsule 500 mg PO BID 7 days #14 caps 11/11/23 hydrocodone 5 mg-acetaminophen 325 1 tab PO Q6H PRN pain 4 days #14 11/11/23 mg tablet tabs ondansetron 4 mg disintegrating 4 mg PO Q6H PRN nausea and 11/11/23 tablet vomiting #20 tabs Allergies Allergy/AdvReac Type Severity Reaction Status Date / Time acetaminophen Allergy Intermediate Hives Verified 06/15/23 20:49 [From Excedrin Migraine] aspirin Allergy Intermediate Hives Verified 06/15/23 20:49 [From Excedrin Migraine] caffeine Allergy Intermediate Hives Verified 06/15/23 20:49 [From Excedrin Migraine] sumatriptan [From Imitrex] Allergy Intermediate Nausea Verified 06/15/23 20:49 topiramate [From Topamax] Allergy Intermediate Nausea Verified 06/15/23 20:49 Iodinated Contrast Media Allergy Mild Hives Verified 06/15/23 20:49 lisinopril AdvReac Severe Swelling Verified 06/15/23 20:49 of Lip/Tongue/Throat Review of Systems ROS Constitutional Denies: fever or chills Ears, nose, mouth, and throat Denies: throat pain or nasal congestion Cardiovascular Denies: chest pain Respiratory Denies: shortness of breath or cough Gastrointestinal Reports: abdominal pain and nausea; Denies: vomiting or diarrhea Genitourinary Reports: urinary frequency; Denies: painful urination Musculoskeletal Reports: back pain Integumentary/Breast Denies: rash Endocrine Denies: excessive urination PFSH PFSH Medical History (Updated 11/11/23 @ 15:19 by Norman Knox) CVA (cerebral vascular accident) ?I63.9 - Cerebral infarction, unspecified (ICD-10) Diabetes mellitus ?E11.9 - Type 2 diabetes mellitus without complications (ICD-10) Aorta aneurysm ?I71.9 - Aortic aneurysm of unspecified site, without rupture (ICD-10) Achilles rupture ?S86.019A - Strain of unspecified Achilles tendon, initial encounter (ICD-10) Coronary stent occlusion (~2011) ?T82.897A - Other specified complication of cardiac prosthetic devices, implants and grafts, initial encounter (ICD-10) Chest pain ?R07.9 - Chest pain, unspecified (ICD-10) Social History Within the past year, how often did you have a drink containing alcohol: never Score interpretation: A score less than 3 is consistent with normal alcohol consumption. Smoking status: Heavy tobacco smoker Non-prescribed substance use: denies use Feel stressed/tense/nervous/anxious/difficulty sleeping: only a little Life stressors: recent of family or friend Life stressor details: Husbands Due to disability, difficulty making decisions: No Exam Narrative Exam Narrative: Gen.: Awake, alert, in no distress Head: Normocephalic, atraumatic ENT: Moist mucous membranes Respiratory: No respiratory distress, lungs clear bilaterally Cardio: Regular rate and rhythm Gastrointestinal: Abdomen is soft, nondistended and nontender to palpation; no CVA tenderness Extremities: Moves extremities equally Psych: Normal mood and affect Neuro: No focal neuro deficit Skin: Warm, dry, intact Constitutional Vital Signs, click to edit/add: Last Vital Signs Temp 98.1 F 11/11/23 13:30 Pulse 73 11/11/23 13:30 Resp 20 11/11/23 13:30 BP 175/72 H 11/11/23 13:30 Pulse Ox 98 11/11/23 13:30 O2 Del Method Room Air 11/11/23 13:30 Course Vital Signs Vital signs: Vital Signs Temperature 98.1 F 11/11/23 13:30 Pulse Rate 73 11/11/23 13:30 Respiratory Rate 20 11/11/23 13:30 Blood Pressure 175/72 H 11/11/23 13:30 Pulse Oximetry 98 11/11/23 13:30 Oxygen Delivery Method Room Air 11/11/23 13:30 Temperature 98.1 F 11/11/23 13:30 Pulse Rate 73 11/11/23 13:30 Respiratory Rate 20 11/11/23 13:30 Blood Pressure 175/72 H 11/11/23 13:30 Pulse Oximetry 98 11/11/23 13:30 Oxygen Delivery Method Room Air 11/11/23 13:30 Medical Decision Making MDM Narrative Medical decision making narrative: Laboratory studies reviewed and noted showing no leukocytosis, normal creatinine and urine with no evidence of UTI. CT of the abdomen and pelvis shows a 10 x 14 mm left renal pelvis stone causing inflammation with urothelial thickening. There is no evidence of ureteral stone or hydronephrosis. I discussed the case with Dr. Doran for urology, he would like to see the patient in the office in [place] tomorrow at 9 AM. He recommended that she be n.p.o. after midnight in case he pursues a stent tomorrow. He requested she be placed on antibiotics, she was also given a prescription for short course of analgesics and nausea medication. Return to the ER if symptoms change or worsen. Medical Records Medical records reviewed: Yes I reviewed the patient's medical records Lab Data Lab results reviewed: Yes I reviewed the patient's lab results Labs: Lab Results 11/11/23 11/11/23 Range/Units 13:50 14:03 WBC 10.2 (4.0-11.0) 10^3/uL RBC 4.92 (4.20-5.40) 10^6/uL Hgb 15.1 (12.0-16.0) g/dL Hct 45.1 (36.0-48.0) % MCV 91.7 (81.0-99.0) fL MCH 30.7 (26.7-34.0) pg MCHC 33.5 (29.9-35.2) g/dL RDW 12.2 (11.0-15.0) % Plt Count 249 (150-450) 10^3/uL MPV 10.8 (9.5-13.5) fL Neut % (Auto) 56.0 (43.0-75.0) % Lymph % (Auto) 32.3 (20.5-60.0) % [place] % (Auto) 6.5 (1.7-12.0) % Eos % (Auto) 3.8 (0.9-7.0) % Baso % (Auto) 1.2 (0.2-2.0) % Neut # (Auto) 5.7 (1.4-6.5) 10^3/uL Lymph # (Auto) 3.3 (1.2-3.8) 10^3/uL [place] # (Auto) 0.7 (0.3-0.8) 10^3/uL Eos # (Auto) 0.4 (0.0-0.7) 10^3/uL Baso # (Auto) 0.1 (0.0-0.1) 10^3/uL Abs Immat Gran (auto) 0.02 (0.00-0.03) 10^3/uL Imm/Tot Granulo (auto) 0.2 (0.0-0.5) % Sodium 134 L (136-145) mmol/L Potassium 4.0 (3.5-5.1) mmol/L Chloride 98 (98-107) mmol/L Carbon Dioxide 28.0 (21.0-32.0) mmol/L Anion Gap 12.0 BUN 16.0 (7.0-18.0) mg/dL Creatinine 0.86 (0.55-1.02) mg/dL Est GFR ( Amer) >60 (>=60) Est GFR (Non-Af Amer) >60 (>=60) BUN/Creatinine Ratio 18.6 Glucose 169 H (74-106) mg/dL Lactate 1.0 (0.4-2.0) mmol/L Calcium 9.9 (8.5-10.1) mg/dL Total Bilirubin 0.7 (0.2-1.0) mg/dL AST 14 L (15-37) U/L ALT 17 (14-59) U/L Alkaline Phosphatase 74 (46-116) U/L Total Protein 8.1 (6.4-8.2) g/dL Albumin 4.1 (3.4-5.0) g/dL Globulin 4.0 g/dL Albumin/Globulin Ratio 1.0 Urine Color Yellow (YELLOW) Urine Clarity Clear (CLEAR) Urine pH 5.5 (5.0-9.0) Ur Specific [place] 1.025 (1.005-1.025) Urine Protein Negative (NEG/TRACE) mg/dL Urine Glucose (UA) Negative (NEGATIVE) mg/dL Urine Ketones Negative (NEGATIVE) mg/dL Urine Occult Blood Trace-i (NEGATIVE) Urine Nitrite Negative (NEGATIVE) Urine Bilirubin Negative (NEGATIVE) Urine Urobilinogen 0.2 (0.2-1.0) EU/dL Ur Leukocyte Esterase Negative (NEGATIVE) Urine RBC 0-2 (0-2) #/HPF Urine WBC 0-2 A (NONE SEEN) #/HPF Ur Squamous Epith Cells Many A (NONE/RARE) #/LPF Urine Crystals Not Reportable Urine Bacteria Moderate A (NONE SEEN) #/HPF Urine Casts Not Reportable Urine Mucus None seen (NONE SEEN) Ur Culture Indicated? Yes Imaging Data CT scan - abdomen: Attestation: I have reviewed the pertinent imaging results. Radiologist's impression: Procedure: CT abdomen pelvis wo con EXAM: CT ABDOMEN AND PELVIS WITHOUT CONTRAST HISTORY: kidney stone low back pain, left lower abdominal pain for 5 days. COMPARISON: CT 04/01/2023 TECHNIQUE: Computed tomography of the abdomen and pelvis was performed without intravenous contrast with a renal stone protocol. Coronal and sagittal reformations were obtained. Dose reduction: mA and/or kV are adjusted by automated exposure control software based on patient size. FINDINGS: There is a 10 x 6 x 14 mm stone lodged at the left renal pelvis and is slightly increased in size from previous study. There are few additional nonobstructing stones clustered at the lower pole left kidney, largest is 5 x 5 x 6 mm. There is no left hydronephrosis but there is mild urothelial thickening at the left renal pelvis. There is no ureteral calculus or stone seen on the right side. No obstructive or inflammatory changes of the right kidney. Bladder is decompressed without bladder stone. Soft tissue structures are suboptimally evaluated without intravenous contrast. Liver and spleen size are normal. There is a 1.3 cm nodule interposed between the spleen and the upper pole of the left kidney, with punctate calcification is probably a tiny splenule rather than a stable nodule arising from the left kidney, and appearance is unchanged from 11/21/2021. No inflammation of the gallbladder or the fatty replaced pancreas. No radiopaque gallstones. Adrenal glands are normal. Small and large bowel loops are normal caliber. Small to moderate colonic stool burden. No focal bowel inflammation. There is atherosclerosis of the abdominal aorta and branch vessels, without abdominal aortic aneurysm. Uterus surgically absent no adnexal abnormality. No free fluid, mesenteric inflammation, or free air. Limited imaging of lower chest demonstrates clear lungs. Heart size within normal limits with coronary artery stents and median sternotomy changes noted. Bony structures are normal for age. There is a tiny fat-containing umbilical hernia. IMPRESSION: 1. 10 x 6 x 14 mm stone lodged at the left renal pelvis with mild urothelial thickening of the left renal pelvis reflecting inflammation, without hydronephrosis. The size of the stone has increased from prior study 04/01/2023. There are additional stones in the left kidney measuring up to 6 mm. 2. Negative for ureteral calculus. No right-sided renal stone or obstructive changes. 3. 1.3 cm soft tissue nodule interposed between the spleen and the upper pole of the left kidney and contains a punctate calcification, probably a tiny splenule and less likely a nodule arising from the left kidney, and appearance is unchanged from 11/21/2021. Attention on follow-up studies to document stability. 4. Hysterectomy, coronary artery stents, and additional incidental findings as described. Electronically authenticated by: ERASTO CHENG Date: 11/11/2023 14:44 Discharge Plan Discharge Chief Complaint: Abdominal Pain Clinical Impression: Renal colic, Calculus, renal Patient Disposition: Home, Self-Care Time of Disposition Decision: 15:19 Prescriptions / Home Meds: New cephalexin 500 mg capsule 500 mg PO BID 7 Days Qty: 14 0RF ondansetron 4 mg tablet,disintegrating 4 mg PO Q6H PRN (Reason: nausea and vomiting) Qty: 20 0RF hydrocodone-acetaminophen 5-325 mg tablet 1 tab PO Q6H PRN (Reason: pain) 4 Days Qty: 14 0RF Rx Instructions: ICD 10 = N20 No Action hydroxyzine pamoate [Vistaril] 50 mg capsule 50 mg PO Q8H PRN (Reason: itching) Qty: 10 0RF permethrin [Elimite] 5 % cream 1 applic topical Q14D Qty: 60 0RF Rx Instructions: apply To all areas of skin below your chin at bedtime, keep lotion on for 8-10 hours, and take a shower and rinse it off. second treatment 14 days after first treatment if live rash remains permethrin 5 % cream 1 applic topical ONCE Qty: 60 0RF Rx Instructions: Apply to skin and wash off after 8-10 hours; apply 7 days after initial application prednisone 20 mg tablet See Rx Instructions .ROUTE .COMPLEX Qty: 8 0RF Rx Instructions: 3 tabs daily for 1 days, then 2 tabs daily for 2 days, then 1 tab daily for 1 days hydroxyzine HCl 25 mg tablet 25 mg PO Q6H PRN (Reason: itching) Qty: 20 0RF carvedilol 25 mg tablet 25 mg PO DAILY tizanidine 4 mg tablet 4 mg PO Q8H PRN (Reason: muscle spasticity) clopidogrel 75 mg tablet 75 mg PO DAILY simvastatin 40 mg tablet 40 mg PO DAILY pantoprazole 40 mg tablet,delayed release (DR/EC) 40 mg PO DAILY glimepiride 4 mg tablet 4 mg PO DAILY irbesartan 150 mg tablet 150 mg PO DAILY duloxetine 60 mg capsule,delayed release(DR/EC) 60 mg PO DAILY Novolin 70-30 FlexPen U-100 100 unit/mL (70-30) insulin pen SUBCUT isosorbide mononitrate 60 mg tablet extended release 24 hr 30 mg PO metoclopramide HCl 10 mg tablet Allergy and Sinus Relief 25-10 mg tablet 1 tab PO TID bupropion HCl 150 mg tablet extended release 24 hr 150 mg PO DAILY Instructions: Kidney Stones (ED), Renal Colic (ED) Stand Alone Forms: Portal Instructions Referrals: Arturo Doran MD [Physician] - 11/12/23 9:00 am Discharge Date/Time: 11/11/23 15:45
[2023-11-11 14:06] LABS: Bilirubin Urine NEGATIVE (NEGATIVE); Blood Urine TRACE-I (NEGATIVE); Clarity Urine CLEAR (CLEAR); Color Urine YELLOW (YELLOW); Glucose Urine UA NEGATIVE (NEGATIVE); Ketones Urine NEGATIVE (NEGATIVE); Leukocyte Esterase Urine NEGATIVE (NEGATIVE); Nitrite Urine NEGATIVE (NEGATIVE); Protein Urine NEGATIVE (NEG/TRACE); Specific Gravity Urine 1.025 (1.005-1.025); Urobilinogen Urine 0.2 EU/dL (0.2-1.0); pH Urine 5.5 (5.0-9.0)
[2023-11-11] MEDS: ONDANSETRON PF 4 MG/2 ML VIAL IV (14:07)
[2023-11-11] MEDS: 0.9 % SODIUM CHLORIDE 1,000 ML 1000 ML IV (14:07)
[2023-11-11 14:10] LABS: Basophils Absolute Auto 0.1 10^3/uL (0.0-0.1); Basophils Percent Auto 1.2 % (0.2-2.0); Eosinophils Absolute Auto 0.4 10^3/uL (0.0-0.7); Eosinophils Percent Auto 3.8 % (0.9-7.0); Hematocrit 45.1 % (36.0-48.0); Hemoglobin 15.1 g/dL (12.0-16.0); Immature Granulocytes Abs Auto 0.02 10^3/uL (0.00-0.03); Immature Granulocytes Pct Auto 0.2 % (0.0-0.5); Lymphocytes Absolute Auto 3.3 10^3/uL (1.2-3.8); Lymphocytes Percent Auto 32.3 % (20.5-60.0); Mean Corpuscular HGB Conc 33.5 g/dL (29.9-35.2); Mean Corpuscular Hemoglobin 30.7 pg (26.7-34.0); Mean Corpuscular Volume 91.7 fL (81.0-99.0); Mean Platelet Volume 10.8 fL (9.5-13.5); Monocytes Absolute Auto 0.7 10^3/uL (0.3-0.8); Monocytes Percent Auto 6.5 % (1.7-12.0); Neutrophils Absolute Auto 5.7 10^3/uL (1.4-6.5); Platelet Count 249 10^3/uL (150-450); Red Blood Count 4.92 10^6/uL (4.20-5.40); Red Cell Distribution Width 12.2 % (11.0-15.0); White Blood Count 10.2 10^3/uL (4.0-11.0)
[2023-11-11] MEDS: HYDROMORPHONE HCL 1 MG/ML CARTRIDGE IV (14:10)
[2023-11-11 14:21] LABS: Urine Microscopic Indicated YES
[2023-11-11 14:22] LABS: RBC Urine 0-2 #/HPF (0-2); WBC Urine 0-2 #/HPF (NONE SEEN)
[2023-11-11 14:23] LABS: Bacteria Urine MODERATE #/HPF (NONE SEEN); Mucus Urine NONE SEEN (NONE SEEN); Squamous Epithelial Cell Urine MANY #/LPF (NONE/RARE)
[2023-11-11 14:25] LABS: Urine Culture Indicated YES
[2023-11-11 14:25] LABS: Alanine Aminotransferase 17 U/L (14-59); Albumin Level 4.1 g/dL (3.4-5.0); Alkaline Phosphatase 74 U/L (46-116); Aspartate Amino Transferase 14 U/L (15-37); BUN Creatinine Ratio 18.6; Bilirubin Total 0.7 mg/dL (0.2-1.0); Calcium 9.9 mg/dL (8.5-10.1); Chloride 98 mmol/L (98-107); Estimated GFR (African America >60 (>=60); Estimated GFR (Non-African Ame >60 (>=60); Glucose 169 mg/dL (74-106); Sodium 134 mmol/L (136-145); Total Protein 8.1 g/dL (6.4-8.2)
[2023-11-11] MEDS: OXYCODONE HCL/ACETAMINOPHEN 5MG/325MG 1 TAB PO (15:43)
== END 2023-11-11 15:45 | disposition home or self-care (01) ==
PROVIDERS: Physician Assistant; Emergency Provider Emergency Medicine; PCP Family Medicine
DX: N20.0 Calculus of kidney (principal); Z87.442 Personal history of urinary calculi; Z79.84 Long term (current) use of oral hypoglycemic drugs; Z79.4 Long term (current) use of insulin; Z79.899 Other long term (current) drug therapy; Z90.710 Acquired absence of both cervix and uterus; Z95.5 Presence of coronary angioplasty implant and graft; Z86.73 Personal history of transient ischemic attack (TIA), and cerebral infarction without residual deficits; E11.9 Type 2 diabetes mellitus without complications; I71.9 Aortic aneurysm of unspecified site, without rupture; F17.200 Nicotine dependence, unspecified, uncomplicated
CPT/HCPCS: 36415; 74176; 80053; 81001; 83605; 85025; 87086; 96374; 96375; 99285; J1170

== ENCOUNTER 2023-11-12 14:24 | Outpatient (OUT) | payer MEDICARE, SELFPAY ==
--- NOTE | 2023-11-12 14:30 | XR_ITS ---
The [address] [address] Patient Name: MARTHA AVILA MRN: [id number] date: 1955 Sex: F Assigned [facility] Current Patient Location: [facility] Accession/Order Number: [id number] Exam Date: 11/12/2023 15:12 Report Date: 11/12/2023 17:29 At the request of: KALYN DOLAN Procedure: XR chest 2V EXAM: XR chest 2V HISTORY: Preop examination. COMPARISON: Chest radiograph dated 06/15/2023. TECHNIQUE: PA and lateral views of the chest performed. FINDINGS: Stable median sternotomy wires. The trachea is midline. The heart size is within normal limits. The cardiomediastinal silhouette and hilar shadows are stable and unremarkable. Stable chronic reticular interstitial densities throughout both lung [place]. There is no new consolidation or infiltrate. There is no pleural effusion or pulmonary vascular congestion. There is no pneumothorax or osseous abnormality. XR/XR chest 2V IMPRESSION: There is no acute cardiopulmonary process. Stable chronic reticular interstitial densities throughout both lung [place]. Electronically authenticated by: MARIMAR MARCANO Date: 11/12/2023 17:29
--- NOTE | 2023-11-12 14:30 | ECG_ITS ---
[facility] Test Date: 2023-11-12 Pat Name: MARTHA AVILA Department: Room: - Gender: Female Radio Dispatcher: : 1955 Requested By: KALYN DOLAN Order Number: [id number] Reading MD: ESTELA JACOBS Measurements Intervals [place] Rate: 72 P: 54 MI: 220 QRS: 65 QRSD: 110 T: 78 QT: 422 QTc: 462 Interpretive Statements SINUS RHYTHM WITH FIRST DEGREE AV BLOCK Compared to ECG 06/16/2023 10:44:23 No significant changes Electronically Signed On 11-13-2023 7:12:23 EST by ESTELA JACOBS
[2023-11-12 15:42] LABS: INR 1.03; Partial Thromboplastin Time 27.2 sec (22.3-36.2); Prothrombin Time 10.9 sec (9.0-11.6)
== END 2023-11-12 14:25 | disposition home or self-care (01) ==
PROVIDERS: PCP Family Medicine; Visit Provider Urology
DX: Z01.812 Encounter for preprocedural laboratory examination (principal); Z01.810 Encounter for preprocedural cardiovascular examination; Z85.51 Personal history of malignant neoplasm of bladder; N20.0 Calculus of kidney
CPT/HCPCS: 71046; 85610; 85730; 93005

== ENCOUNTER 2023-11-13 10:50 | Day surgery (SDC) | payer MEDICARE, SELFPAY ==
[2023-11-12 15:04] VITALS: BP 138/78; PULSE 76; RESP 20; TEMP 36.2; O2SAT 95; BMI 34.4
[2023-11-13] VITALS (8 sets, daily range): BP systolic 120–142; BP diastolic 58–83; PULSE 61–76; RESP 12–18; TEMP 36.5–36.6; O2SAT 94–98; BMI 34.2
--- NOTE | 2023-11-13 | FL_ITS ---
[address] [address] Patient Name: MARTHA AVILA MRN: [id number] date: 1955 Sex: F Assigned Patient Location: [facility] Current Patient Location: Accession/Order Number: [id number] Exam Date: 11/13/2023 13:27 Report Date: 11/18/2023 09:12 At the request of: KALYN DOLAN Procedure: FL fluoroscopy <1hr NON-READ EXAM: FL fluoroscopy <1hr NON-READ HISTORY: left kidney stone TECHNIQUE: FINDINGS: Please see Operative Report. Electronically authenticated by: RADIOLOGIST NO Date: 11/18/2023 09:12
--- OUTSIDE RECORDS SUMMARY | 2023-11-13 11:00 | XMS_ITS | CCD ---
Author Name Unknown Address [address] [place] [address] Organization [facility] Care Team Providers Care Accounting Technician Name Role Phone Robin Ponce Primary Care Provider [phone] HERMELINDO ADKINS Consulting Unavailable ROBIN PONCE Primary Care Unavailable HERMELINDO ADKINS Attending Unavailable HERMELINDO ADKINS Admitting Unavailable LONDON VALLEJO Consulting Unavailable PATRICIATAJES, EHAB A Attending Unavailable CONCEPCIÓN EHAB A Admitting Unavailable ROBIN PONCE Referring Unavailable ROBIN PONCE Primary Care Unavailable MD Darby Hernandez Primary Care Provider MD Ese Tan Attending Provider [phone] SHAIKH HERNANDEZ Primary Care Physician DR DANK JOHNSON Admitting UnavailDR ROBIN Marie Primary Care Unavailable DR DANK JOHNSON Attending UnavailREYNA Ni Consulting UnavailLISSETT Simon Consulting Unavailable DR ROBIN SEGOVIA Primary Care Unavailable FAVIO Bingham, JEFFRY Admitting Unavailable SHELLEY II, TIMOTEO Consulting Unavailable TAMLYN ., JEFFRY Attending Unavailable TAMLYN ., JEFFRY Consulting Unavailable CHITO DE SOUZA Consulting Unavailable SHAIKH Enio HERNANDEZ Admitting Unavailable SHAIKH Enio HERNANDEZ Attending Unavailable SHAIKH Enio HERNANDEZ Primary Care Unavailable DR ROBIN SEGOVIA Admitting Unavailable DR ROBIN SEGOVIA Attending Unavailable DR ROBIN SEGOVIA Consulting Unavailable SHAIKH Enio HERNANDEZ Primary Care Unavailable MISC, DR SONI Admitting Unavailable MISC, DR DOCTOR Attending Unavailable MISC, DOCTOR Consulting Unavailable KRIS ., DR KELLY Primary Care Unavailable KATELYN, DR MERCEDES Bates Consulting Unavailable MISC, DOCTOR Attending Unavailable MISC, DR SONI Consulting Unavailable MISC, DOCTOR Admitting Unavailable FAWWAD, TRENT H Primary Care Unavailable REGIS, DR ZELALEM Bates Admitting Unavailable FAWWAD, TRENT H Primary Care Unavailable REGIS, DR ZELALEM Bates Attending Unavailable REGIS, DR ZELALEM Bates Consulting Unavailable MIKAEL GUZMAN Consulting Unavailable JONO LOPEZ Attending Unavailable JONO LOPEZ Attending Unavailable ALEXIA CLINE Attending Unavailable FAWWAD, TRENT Primary Care Unavailable PERLA Mbanefo Attending Unavailable DO Sunshine DUARTE Admitting Unavailabl e FAWWAD, TRENT Primary Care Unavailable Zaki Muñoz H Attending Unavailable Robin Ponce Primary Care Physician Allergies Allergy Classification Reported Allergen(s) Allergy Type Date of Onset Reaction(s) Facility Angiotensin Converting Enzyme (RYANNE) Inhibitors (1 source) Lisinopril Drug Allergy 011 [facility] Anti-Epileptic Agents (1 source) topiramate Drug Allergy [facility] Berries (1 source) [place] Food Allergy [facility] Cats (1 source) Cat Animal Allergy (Dander) [facility] Dextroamphetamine (1 source) Dextroamphetamine Drug Allergy [facility] Iodine (and Iodine containting drugs) (1 source) Iodine (And Iodine Containting Drugs) Drug Allergy [facility] Unclassified (2 sources) BLUE DYE; Translations: [BLUE DYE] Drug allergy (disorder) [facility] (6 sources) Aspirin; Translations: [Aspirin] Drug Allergy 016 Nausea [facility] Comment on above: uncoded aspirin (4 sources) atorvastatin; Translations: [atorvastatin] Drug Allergy 014 Unknown Reaction [facility] (7 sources) Lisinopril; Translations: [Lisinopril] Drug Allergy 013 Swelling of Lip/Tongue/Th roat, morphine [facility] (2 sources) Morphine; Translations: [morphine] Drug Allergy [facility] (4 sources) strawberry allergenic extract; Translations: [[place]] Drug Allergy 011 [facility] (4 sources) topiramate; Translations: [topiramate] Drug Allergy Urticaria (disorder) [facility] (1 source) cat dander Allergy to substance [facility] (2 sources) Iodinated Contrast Media; Translations: [IODINATED CONTRAST MEDIA] Allergy to substance [facility] (3 sources) Contrast media; Translations: [Contrast Dye] Drug allergy Urticaria (disorder) [facility] (3 sources) [place]; Translations: [Strawberries] Drug allergy Urticaria (disorder) [facility] (3 sources) SUMAtriptan; Translations: [sumatriptan] Drug Allergy [facility] (1 source) Acetaminophen / Aspirin / Caffeine Drug Allergy [facility] (2 sources) Dextroamphetamine; Translations: [Lipitor] Drug Allergy [facility] (2 sources) Iodine (And Iodine Containting Drugs) Drug allergy (disorder) [facility] (1 source) Ketorolac Drug Allergy [facility] (1 source) Plasmin Drug Allergy [facility] (3 sources) topiramate; Translations: [Topamax] Drug Allergy [facility] (2 sources) Dhe Drug allergy (disorder) [facility] (2 sources) Cat/Feline Product Derivatives Drug allergy (disorder) [facility] (1 source) Iodine; Translations: [IODINE] Drug Allergy [facility] (1 source) CAT/FELINE PRODUCTS; Translations: [CAT/FELINE PRODUCTS] Propensity to adverse reactions to drug (disorder) 016 [facility] Medications Current Medications Medication Drug Class(es) Dates Sig (Normalized) Sig (Original) acetaminophen 325 mg oral tablet (1 source) Start: 08-31-2020 650 mg, Oral, EVERY 4 HOURS PRN, Pain Mild (1-3), Pain Mild (1-3) or Fever greater than 100.5 F (38 C), Starting [facility] 08/31/20 at 0353 Maximum dose of acetaminophen is 4000 mg from all sources in 24 hours. acetaminophen 325 mg / butalbital 50 mg / caffeine 40 mg oral tablet (2 sources) Barbiturate, Central Nervous System Stimulant, Methylxanthine Start: 09-01-2020 butalbital-acetami nophen-caffeine (FIORICET, ESGIC) 50-325-40 MG per tablet Take 1 tab only for severe headache. Can repeat after 4 hrs. Max 2 tabs/24 hrs. Max 4 tabs/week 15 tablet 3 09/01/2020 Active Start: 08-04-2020 End: 09-01-2020 take 1 tablet by mouth every six hours as needed vnpshfaoto-ubmliorgvbhpz-zxmodfol (DAISY CET, ESGIC) 50-325-40 MG per tablet Take 1 tablet by mouth every 6 hours as needed for Migraine 0 08/04/2020 09/01/2020 Discontinued (REORDER) Acetaminophen / HYDROcodone (2 sources) Opioid Agonist Start: 09-25-2010 Vicodin Oral, q4hr, Refill(s) 0 Start Date: 09/25/10 Status: Ordered acetaminophen 325 mg / oxyCODONE hydrochloride 5 mg oral tablet (1 source) Opioid Agonist Start: 07-13-2023 End: 07-16-2023 Percocet 5 mg-325 mg oral tablet 1 tab(s), Oral, q6hr as needed for pain for 3 day(s), 15 tab(s), Refill(s) 0, [facility]/pharmacy #[id number], 165, cm, 07/13/23 11:34:00 EDT, Height/Length Dosing, 95.5, kg, 07/13/23 11:34:00 EDT, Weight Dosing Start Date: 07/13/23 Stop Date: 07/16/23 Status: Ordered aspirin 81 mg delayed release oral tablet (3 sources) Platelet Aggregation Inhibitor, Nonsteroidal Anti-inflammatory Drug Start: 09-02-2020 take 1 tablet by mouth once daily aspirin 81 MG EC tablet Take 1 tablet by mouth daily 30 tablet 3 09/02/2020 Active Start: 10-24-2018 take 81 mg by mouth once daily 81 mg, Oral, DAILY, First dose on [facility] 08/31/20 at 0900 Do NOT administer if bleed present on follow up CT-Head. Aspirin 81 mg Tab-EC (2 sources) Start: 07-06-2015 take 1 tablet by mouth once daily Aspirin 81 mg Tab-EC 81 mg = 1 tab(s), Oral, Daily, Refills(s) 0 Start Date: 07/06/15 Status: Ordered atorvastatin 20 mg oral tablet (2 sources) HMG-CoA Reductase Inhibitor Start: 09-01-2020 atorvastatin (LIPITOR) tablet 20 mg Start: 08-31-2020 End: 09-01-2020 take 80 mg by mouth once daily 80 mg, Oral, NIGHTLY, F irst dose on [facility] 08/31/20 at 2100 carvedilol 25 mg oral tablet (3 sources) alpha-Adrenergic Grabiel, beta-Adrenergic Grabiel Start: 10-24-2018 take 25 mg by mouth twice daily Carvedilol Active 25 MG PO Twice daily October 24, 2018 9:44pm Start: 07-06-2015 take 1 tablet by ray th twice daily Coreg 12.5 mg Tab 12.5 mg = 1 tab(s), Oral, BID, Refills(s) 0 Start Date: 07/06/15 Status: Ordered citalopram 20 mg oral tablet (3 sources) Serotonin Reuptake Inhibitor Start: 10-24-2018 take 1 tablet by mouth once daily Citalopram (Celexa) 20 mg Tablet Active 20 MG PO Daily October 24, 2018 9:44pm Start: 07-06-2015 take 1 tablet by ray th once daily CeleXA 40 mg Tab 40 mg = 1 tab(s), Oral, Daily, Refills(s) 0 Start Date: 07/06/15 Status: Ordered clonazePAM 0.5 mg oral tablet (1 source) Benzodiazepine Start: 08-15-2020 take 1 tablet by mouth once daily clonazePAM (KLONOPIN) 0.5 MG tablet Take 1 tablet by mouth daily. 0 08/15/2020 Active cloNIDine hydrochloride 0.1 mg oral tablet (2 sources) Central alpha-2 Adrenergic Agonist Start: 06-01-2020 take 0.1 mg by mouth three times daily 0.1 mg, Oral, 3 TIMES DAILY, First dose on Fri09/01/20 at 1400 clopidogrel 75 mg oral tablet (5 sources) P2Y12 Platelet Inhibitor Start: 07-06-2015 take 1 tablet by mouth once daily Plavix 75 mg Tab 75 mg = 1 tab(s), Oral, Daily, Refills(s) 0 Start Date: 07/06/15 Status: Ordered docusate sodium 100 mg oral capsule (2 sources) Start: 07-06-2015 take 1 capsule by mouth twice daily as needed for constipation Colace 100 mg Cap 100 mg = 1 cap(s), Oral, BID, PRN for constipation, # 20 cap(s), Refills(s) 0 Start Date: 07/06/15 Status: Ordered doxepin hydrochloride 10 mg oral capsule (2 sources) Tricyclic Antidepressant Start: 06-01-2020 take 10 mg by mouth twice daily 10 mg, Oral, 2 TIMES DAILY, First dose on Fri09/01/20 at 1345 DULoxetine 30 mg delayed release oral capsule (2 sources) Serotonin and Norepinephrine Reuptake Inhibitor Start: 09-01-2020 take 1 capsule by mouth once daily 60 mg, Oral, DAILY, First dose on Fri09/01/20 at 1345 Do not crush or break. May add contents of capsule to apple juice or apple sauce, but not chocolate. Start: 08-22-2020 take 1 capsule by mo [facility] once daily DULoxetine (CYMBALTA) 60 MG extended release capsule Take 1 capsule by mouth daily 0 08/22/2020 Active 0.4 ml enoxaparin sodium 100 mg/ml prefilled syringe (1 source) Low Molecular Weight Heparin Start: 08-31-2020 inject 40 mg by subcutaneous injection once daily 40 mg, Subcutaneous, DAILY, First dose on [facility] 08/31/20 at 0900 glimepiride 2 mg oral tablet (1 source) Sulfonylurea Start: 10-26-2018 take 2 mg by mouth once daily Glimepiride Active 2 MG PO Daily October 26, 2018 6:26pm hydrOXYzine hydrochloride 25 mg oral tablet (2 sources) Antihistamine Start: 09-01-2020 take 25 mg by mouth four times daily as needed for anxiety 25 mg, Oral, 4 TIMES DAILY PRN, Anxiety, Starting 09/01/20 at 1321 Start: 06-01-2020 take 1 capsule by [facility] four times daily as needed for anxiety hydrOXYzine (VISTARIL) 25 MG capsule Take 1 capsule by mouth 4 times daily as needed for Anxiety 0 06/01/2020 Active iopamidol (ISOVUE-370) 76 % injection 70 mL (1 source) Start: 08-30-2020 iopamidol (ISOVUE-370) 76 % injection 70 mL irbesartan 150 mg oral tablet (1 source) Angiotensin 2 Receptor Grabiel Start: 08-14-2020 take 1 tablet by mouth once daily irbesartan (AVAPRO) 150 MG tablet Take 1 tablet by mouth daily 0 08/14/2020 Active isosorbide dinitrate 30 mg oral tablet (2 sources) Nitrate Vasodilator Start: 07-06-2015 take 30 mg by mouth once daily isosorbide dinitrate 30 mg, Oral, Daily, Refills(s) 0 Start Date: 07/06/15 Status: Ordered losartan potassium 50 mg oral tablet (1 source) Angiotensin 2 Receptor Grabiel Start: 09-01-2020 losartan (COZAAR) tablet 50 mg omeprazole 40 mg delayed release oral capsule (3 sources) Proton Pump Inhibitor Start: 07-06-2015 take 1 capsule by mouth once daily omeprazole 40 mg Cap-EC 40 mg = 1 cap(s), Oral, Daily, Refills(s) 0 Start Date: 07/06/15 Status: Ordered perflutren lipid microspheres (DEFINITY) injection 1.65 mg (1 source) Start: 08-31-2020 1.65 mg (1.5 mL), Intravenous, IMG ONCE PRN, Other, Inability to detect 2 or more contiguous segments in any of the 3 apical views due to poor endocardial border definition, Starting [facility] 08/31/20 at 0353, For 1 dose Echocardiogram should first be performed without contrast and if exam is adequate then DO NOT administer the contrast and delete the order using Per Protocol order mode. If unable to detect 2 or more contiguous segments in any of the 3 apical views due to poor endocardial border definition, then assess patient for any contraindications to echo contrast and if none present administer the echo contrast. polyethylene glycol 3350 07654 mg powder for oral solution (1 source) Osmotic Laxative Start: 08-31-2020 17 g, Oral, DAILY PRN, Constipation, Starting [facility] 08/31/20 at 0353 First line therapy for constipation pravastatin sodium 10 mg oral tablet (2 sources) HMG-CoA Reductase Inhibitor Start: 09-07-2010 take 1 tablet by mouth once daily pravastatin 10 mg oral tablet = 1 tab(s), Oral, Daily, # 30 tab(s), Refills(s) 0 Start Date: 09/07/10 Status: Ordered rizatriptan 10 mg oral tablet (1 source) Serotonin-1b and Serotonin-1d Receptor Agonist Start: 08-02-2020 take 1 tablet by mouth every two hours as needed rizatriptan (MAXALT) 10 MG tablet Take 1 tablet by mouth every 2 hours as needed for Migraine 0 08/02/2020 Active simvastatin 40 mg oral tablet (4 sources) HMG-CoA Reductase Inhibitor Start: 07-06-2015 take 1 tablet by mouth once daily at bedtime simvastatin 40 mg Tab 40 mg = 1 tab(s), Oral, Once a day (at bedtime), Refills(s) 0 Start Date: 07/06/15 Status: Ordered 3 ml sodium chloride 9 mg/ml injection (6 sources) Start: 08-31-2020 10 mL, Intravenous, EVERY 12 HOURS SCHEDULED (2 times per day), First dose on [facility] 08/31/20 at 0900 Start: 08-31-2020 take 10 mL intraveno us route once as needed 10 mL, Intravenous, PRN, Line Care, After every IV line use, Starting [facility] 08/31/20 at 0353 Start: 08-30-2020 0.9 % sodium c hloride infusion Start: 08-30-2020 End: 08-31-2020 0.9 % sodium chloride bolus tiZANidine 4 mg oral tablet (2 sources) Central alpha-2 Adrenergic Agonist Start: 07-06-2015 take 1 tablet by mouth twice daily as needed for pain Zanaflex 4 mg Tab 4 mg = 1 tab(s), Oral, BID, PRN Muscle pain, Refills(s) 0 Start Date: 07/06/15 Status: Ordered Completed/Discontinued Medications Medication Drug Class(es) Dates Sig (Normalized) Sig (Original) cyclobenzaprine hydrochloride 10 mg oral tablet (2 sources) Muscle Relaxant Start: 10-24-2018 End: 09-01-2020 cyclobenzaprine (FLEXERIL) tablet 10 mg 1 ml diphenhydrAMINE hydrochloride 50 mg/ml cartridge (3 sources) Histamine-1 Receptor Antagonist Start: 08-31-2020 End: 08-31-2020 diphenhydrAMINE (BENADRYL) injection 12.5 mg Start: 08-30-2020 End: 09-02-2020 diphenhydrAMINE (BENADRYL) i njection 25 mg iopamidol (ISOVUE-370) 76 % injection 130 mL (1 source) Start: 08-30-2020 End: 08-30-2020 iopamidol (ISOVUE-370) 76 % injection 130 mL 4 ml labetalol hydrochloride 5 mg/ml cartridge (2 sources) beta-Adrenergic Grabiel Start: 09-01-2020 End: 09-01-2020 labetalol (NORMODYNE;TRANDATE) injection 10 mg Start: 08-31-2020 End: 09-01-2020 10 mg, Intravenous, EVERY 10 MIN PRN, High Blood Pressure, Starting [facility] 08/31/20 at 0353 Administer 10 mg IV every 10 minutes if SBP is 220 mmHg or greater OR DBP is 120 mmHg or greater. Notify provider if SBP is 220 mmHg or greater OR DBP is 120 mmHg or greater after 3 consecutive doses. 50 ml magnesium sulfate 40 mg/ml injection (1 source) Start: 08-30-2020 End: 08-31-2020 magnesium sulfate 2 g in 50 mL IVPB premix magnesium sulfate 1.5 g in dextrose 5 % 100 mL IVPB (1 source) Start: 08-31-2020 End: 09-01-2020 magnesium sulfate 1.5 g in dextrose 5 % 100 mL IVPB metFORMIN hydrochloride 1000 mg oral tablet (1 source) Biguanide Start: 10-24-2018 End: 03-19-2021 take 1000 mg by mouth twice daily Metformin Discontinued 1000 MG PO Twice daily October 24, 2018 9:44pm March 19, 2021 9:17pm 2 ml ondansetron 2 mg/ml injection (2 sources) Serotonin-3 Receptor Antagonist Start: 08-31-2020 End: 08-31-2020 ondansetron (ZOFRAN) injection 4 mg 2 ml prochlorperazine 5 mg/ml injection (2 sources) Phenothiazine Start: 08-30-2020 End: 08-31-2020 prochlorperazine (COMPAZINE) injection 10 mg Problems Active Problems Problem Classification Problem Date Documented Da te Episodic/Chronic Abdominal pain (1 source) Unspecified abdominal pain; Translations: [UNSPECIFIED ABDOMINAL PAIN] Onset: 04-03-2023 Episodic Acute and unspecified renal failure (1 source) Acute renal failure syndrome; Translations: [Acute kidney failure, unspecified] Onset: 02-24-2023 Episodic Anxiety disorders (3 sources) Anxiety disorder, unspecified; Translations: [Generalized anxiety disorder] Onset: 03-10-2023 Chronic Aortic; peripheral; and visceral artery aneurysms (1 source) Aortic aneurysm; Translations: [Aortic aneurysm of unspecified site, without rupture] Onset: 02-24-2023 Chronic Asthma (2 sources) Asthma 12-05-2021 Chronic Calculus of urinary tract (3 sources) Kidney stone; Translations: [Calculus of ureter] Onset: 04-03-2023 12-05-2021 Episodic Cancer of bladder (4 sources) Malignant tumor of urinary bladder 07-06-2015 Chronic Cancer of bladder (1 source) Personal history of malignant neoplasm of bladder; Translations: [PERSONAL HX MALIG NEOPLASM BLADDER] Onset: 04-16-2023 Episodic Chronic obstructive pulmonary disease and bronchiectasis (7 sources) Chronic obstructive lung disease; Translations: [Chronic obstructive pulmonary disease, unspecified] Onset: 02-14-2023 12-05-2021 Chronic Conditions associated with dizziness or vertigo (2 sources) Dizziness and giddiness; Translations: [Dizziness and giddiness] Onset: 04-25-2023 Episodic Congestive heart failure; nonhypertensive (3 sources) Heart failure, unspecified; Translations: [Chronic systolic (congestive) heart failure] Onset: 03-10-2023 Chronic Coronary atherosclerosis and other heart disease (10 sources) Coronary arteriosclerosis; Translations: [Atherosclerotic heart disease of [place] coronary artery without angina pectoris] Onset: 02-24-2023 03-20-2021 Chronic Coronary atherosclerosis and other heart disease (2 sources) Presence of coronary angioplasty implant and graft; Translations: [Coronary angioplasty status] Onset: 04-03-2023 Episodic Deficiency and other anemia (2 sources) Anemia 12-05-2021 Episodic Diabetes mellitus without complication (5 sources) Diabetes mellitus; Translations: [Type 2 diabetes mellitus without complications] Onset: 02-24-2023 03-20-2021 Chronic Diseases of white blood cells (1 source) Leukocytosis; Translations: [Elevated white blood cell count, unspecified] 03-20-2021 Chronic Disorders of lipid metabolism (7 sources) Hyperlipidemia; Translations: [Hyperlipidemia, unspecified] Onset: 02-24-2023 03-20-2021 Chronic Diverticulosis and diverticulitis (2 sources) Diverticular disease 01-28-2014 Chronic Esophageal disorders (1 source) Gastro-esophageal reflux disease without esophagitis; Translations: [GERD WITHOUT ESOPHAGITIS] Onset: 04-16-2023 Chronic Essential hypertension (9 sources) Hypertensive disorder; Translations: [Essential (primary) hypertension] Onset: 02-24-2023 03-20-2021 Chronic External cause codes: Fall (2 sources) Fall; Translations: [Fall] Onset: 08-30-2020 08-30-2020 Fluid and electrolyte disorders (1 source) Hypokalemia; Translations: [Hypokalemia] Onset: 02-24-2023 Episodic Gastrointestinal hemorrhage (5 sources) Hemorrhage of anus and rectum; Translations: [HEMORRHAGE OF ANUS AND RECTUM] Onset: 04-03-2023 Episodic Genitourinary symptoms and ill-defined conditions (1 source) Personal history of urinary (tract) infections; Translations: [PERS HX URINARY TRACT INFECTIONS] Onset: 04-03-2023 Episodic Headache; including migraine (6 sources) Hemiplegic migraine; 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] Onset: 08-30-2020 08-31-2020 Chronic Heart valve disorders (1 source) Presence of prosthetic heart valve; Translations: [PRESENCE OF PROSTHETIC HEART VALVE] Onset: 04-16-2023 Chronic Hypertension with complications and secondary hypertension (3 sources) Hypertensive urgency ; Translations: [Hypertensive heart disease with heart failure] Onset: 04-03-2023 08-31-2020 Chronic Mood disorders (1 source) Mood disorders; Translations: [DEPRESSION UNSPECIFIED] Onset: 04-03-2023 Nausea and vomiting (1 source) Nausea and vomiting; Translations: [Nausea with vomiting, unspecified] 03-20-2021 Episodic Osteoarthritis (3 sources) Arthritis; Translations: [Unspecified osteoarthritis, unspecified site] Onset: 04-16-2023 12-05-2021 Chronic Other aftercare (1 source) Long-term current use of drug therapy; Translations: [Other termite renewal inspector (current) drug therapy] Onset: 02-24-2023 Episodic Other aftercare (1 source) 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; Translations: [NURSING HOME CURRENT USE OF INSULIN] Onset: 04-16-2023 Episodic Other aftercare (1 source) Other termite renewal inspector (current) drug therapy; Translations: [OTH MERCHANDISE HANDLER CURRENT DRUG THERAPY] Onset: 04-16-2023 Episodic Other and ill-defined heart disease (2 sources) Heart disease 12-05-2021 Chronic Other circulatory disease (2 sources) History of cerebrovascular accident; Translations: [History of stroke] 08-31-2020 Episodic Other circulatory disease (1 source) Personal history of transient ischemic attack (TIA), and cerebral infarction without residual deficits; Translations: [PERS HX TIA AND CI NO RESID DEFICIT] Onset: 04-16-2023 Episodic Other connective tissue disease (2 sources) Fibromyositis 01-28-2014 Episodic Other connective tissue disease (1 source) Fibromyalgia; Translations: [FIBROMYALGIA] Onset: 04-16-2023 Episodic Other injuries and conditions due to external causes (2 sources) Injury of head; Translations: [Injury of head, initial encounter] 08-31-2020 Episodic Other nervous system disorders (1 source) Impaired cognition; Translations: [Other symptoms and signs involving cognitive functions and awareness] Onset: 02-24-2023 Episodic Other non-traumatic joint disorders (1 source) Shoulder joint pain; Translations: [Pain in unspecified shoulder] Onset: 07-13-2023 Episodic Other nutritional; endocrine; and metabolic disorders (2 sources) Obesity; Translations: [Obesity, unspecified] Onset: 02-24-2023 03-20-2021 Chronic Other nutritional; endocrine; and metabolic disorders (1 source) Obesity, unspecified; Translations: [OBESITY UNSPECIFIED] Onset: 04-03-2023 Chronic Other nutritional; endocrine; and metabolic disorders (1 source) Body mass index (BMI) 34.0-34.9, adult; Translations: [BODY MASS INDEX BMI 34.0-34.9 ADULT] Onset: 04-03-2023 Chronic Residual codes; unclassified (1 source) Acquired absence of both cervix and uterus; Translations: [ACQUIRED ABSENCE BOTH CERVIX AND UTERUS] Onset: 04-03-2023 Episodic Substance-related disorders (3 sources) Smoker; Translations: [Nicotine dependence, cigarettes, uncomplicated] Onset: 04-16-2023 02-24-2023 Chronic Comment on above: Added secondary to d ocumentation in Social History. Syncope (7 sources) Syncope and collapse; Translations: [Near syncope] Onset: 08-31-2020 08-31-2020 Episodic Unclassified (1 source) PERSONAL HISTORY OF COVID-19; Translations: [PERSONAL HISTORY OF COVID-19] Onset: 04-03-2023 Unclassified (1 source) CONTACT W/AND (SUSP) EXPOS COVID-19; Translations: [CONTACT W/AND (SUSP) EXPOS COVID-19] Onset: 02-21-2023 Past or Other Problems Problem Classification Problem Date Documented Date Episodic/Chronic E Codes: Fall (1 source) Unspecified fall, initial encounter; Translations: [UNSPECIFIED FALL INITIAL ENCOUNTER] Onset: 2022 Episodic Nonspecific chest pain (8 sources) Left sided chest pain; Translations: [Chest pain, unspecified] Onset: 03-10-2023 03-20-2021 Episodic Other aftercare (1 source) [facility] (current) use of antithrombotics/anti platelets; Translations: [NURSING HOME ANTITHROMBOT/ANTIPLA TLETS] Onset: 2022 Episodic Other aftercare (1 source) 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) use of 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; Translations: [NURSING HOME CURRENT USE OF ASPIRIN] Onset: 2022 Episodic Other aftercare (1 source) 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) use of oral hypoglycemic drugs; Translations: [NURSING HOME USE ORAL HYPOGLYCEMIC DX] Onset: 2022 Episodic Other lower respiratory disease (1 source) Personal history of pneumonia (recurrent); Translations: [PERSONAL HX OF PNEUMONIA RECURRENT] Onset: 2022 Episodic Other non-traumatic joint disorders (3 sources) Pain in right knee; Translations: [PAIN IN RIGHT KNEE] Onset: 10-05-2022 Episodic Superficial injury; contusion (1 source) Contusion of right knee, initial encounter; Translations: [CONTUSION RIGHT KNEE INITIAL ENC] Onset: 2022 Episodic Unclassified (2 sources) Cystoscopy and transurethral resection of bladder tumor 09-07-2010 Results Test Name Value Interpretation Reference Range Facility Consent for Treatmenton 06-18 Consent for Treatment [id number] #1.00CD:127 Normal [facility] Discharge Instructionson Discharge Instructions [id number] #1.00CD:127 Normal [facility] ED Clinical Summaryon 2022 ED Clinical Summary Normal [facility] ED Note-Physicianon 07-13-20 ED Note-Physician Normal [facility] Comment on above: Result Comment: Elec tronically Signed By: Rubén STAFFORD, Mathew\.br\Date and Time Signed: 07/13/23 12:04 EDT\.br\Electronically Co-Signed By: Zaki Muñoz M.D.\.br\Date and Time Co-Signed: 07/13/23 12:37 EDT ED Patient Education Noteon 07-13-2023 ED Patient Education Note Normal [facility] ED Patient Summaryon 023 ED Patient Summary Normal [facility] Office Visiton 07-08-2023 Follow-up visit [id number] JnaaronakYeyo S 1955 Date Provider Department Center 07/08/2023 120-ALEXIA CLINE [facility] No family history on file Level of Service:56420 [place] OFFICE/OUTPATIENT ESTABLISHED MOD MDM 30-39 MIN Reason for Visit and Comments: Hospital Follow-up [832] - Chest pain Normal [facility] Office Visiton 04-25-2023 Follow-up visit [id number] Yeyo Avila S 1955 F Date Provider Department Center 04/25/2023 [id number] LOPEZ [facility] No family history on file Level of Service:26882 [place] OFFICE/OUTPATIENT ESTABLISHED LOW MDM 20-29 MIN Normal [facility] POINT OF CARE GLUCOSEon 053 Glucose [Mass/Vol] 90 mg/dL Normal 74-106 [facility] Comment on above: Performed By: #### P OCGLUC #### [facility] [address] [address] [address] Win Ardon CARDIAC STRESS TESTon 2022 CARDIAC STRESS TEST CARDIAC STRESS TEST Requesting Physician: Procedure Date:04/01/2023 PERFORMING PROVIDER: Quintin Myers M.D. INDICATION: Chest pain, syncope, collapse. STRESS TEST PROTOCOL: Nuclear stress test with Lexiscan injection. Resting EKG: Sinus rhythm and non-specific ST/T-wave changes, first degree AV block. Resting heart rate: 61 Peak heart rate: 85 Resting blood pressure: 138/78 Peak blood pressure: 138/78 Symptoms: None. Arrhythmias: None. ST changes: No ST changes meeting the definite criteria of ischemia. CONCLUSIONS: 1. Abnormal resting EKG - Sinus rhythm with first degree AV block, non-specific ST-T wave changes. 2. No definitive EKG changes meeting the criteria for ischemia post Lexiscan injection. 3. Please refer to separately interpreted and reported nuclear myocardial perfusion imaging. Normal [facility] CBC AUTO DIFFon 04-01-2023 BASO # 0.1 103/ul Normal 0.0-0.1 [facility] Comment on above: Performed By: #### C BC #### [facility] [address] [address] [address] Win Ardon Basophils/100 WBC (Bld) 1.3 % Normal 0.2-2.0 [facility] Comment on above: Performed By: #### C BC #### [facility] [address] [address] [address] Win Ardon EO # 0.4 103/ul Normal 0.0-0.7 [facility] Comment on above: Performed By: #### C BC #### [facility] [address] [address] [address] Win Ardon Eosinophils/100 WBC (Bld) 4.1 % Normal 0.9-7.0 [facility] Comment on above: Performed By: #### C BC #### [facility] [address] [place] [address] Dr. Win Ardon Erythrocyte distribution width (RBC) [Ratio] 13.3 % Normal 11.0-15.0 [facility] Comment on above: Performed By: #### C BC #### [facility] [address] [address] [address] Win Ardon Hematocrit (Bld) [Volume fraction] 38.9 % Normal 36.0-48.0 [facility] Comment on above: Performed By: #### C BC #### [facility] [address] [address] [address] iWn Ardon Hemoglobin (Bld) [Mass/Vol] 13.2 g/dL Normal 12.0-16.0 [facility] Comment on above: Performed By: #### C BC #### [facility] [address] [address] [address] Win Ardon IG # 0.04 10e3/ul Critically high 0.00-0.03 [facility] Comment on above: Performed By: #### C BC #### [facility] [address] [place] [address] Dr. Win Ardon IG % 0.4 % Normal 0.0-0.5 [facility] Comment on above: Performed By: #### C BC #### [facility] [address] [place] [address] Dr. Win Ardon LYMPH # 3.2 103/ul Normal 1.2-3.8 [facility] Comment on above: Performed By: #### C BC #### [facility] [address] [place] [address] Dr. Win Ardon Lymphocytes/100 WBC (Bld) 34.7 % Normal 20.5-60.0 [facility] Comment on above: Performed By: #### C BC #### [facility] [address] [place] [address] Dr. Win Ardon MANUAL DIFF REQ NO Normal [facility] Comment on above: Performed By: #### C BC #### [facility] [address] [place] [address] Dr. Win Ardon MCH (RBC) [Entitic mass] 31.3 pg Normal 26.7-34.0 [facility] Comment on above: Performed By: #### C BC #### [facility] [address] [address] [address] Win Ardon MCHC (RBC) [Mass/Vol] 33.9 g/dL Normal 29.9-35.2 [facility] Comment on above: Performed By: #### C BC #### [facility] [address] [address] [address] Win Ardon MCV (RBC) [Entitic vol] 92.2 fL Normal 81.0-99.0 [facility] Comment on above: Performed By: #### C BC #### [facility] [address] [place] [address] Dr. Win Ardon MONO # 0.7 103/ul Normal 0.3-0.8 [facility] Comment on above: Performed By: #### C BC #### [facility] [address] [place] [address] Dr. Win Ardon Monocytes/100 WBC (Bld) 7.1 % Normal 1.7-12.0 [facility] Comment on above: Performed By: #### C BC #### [facility] [address] [place] [address] Dr. Win Ardon NEUT # 4.9 103/ul Normal 1.4-6.5 [facility] Comment on above: Performed By: #### C BC #### [facility] [address] [place] [address] Dr. Win Ardon Neutrophils/100 WBC (Bld) 52.4 % Normal 43.0-75.0 [facility] Comment on above: Performed By: #### C BC #### [facility] [address] [place] [address] Dr. Win Ardon Platelet mean volume (Bld) [Entitic vol] 10.6 fL Normal 9.5-13.5 [facility] Comment on above: Performed By: #### C BC #### [facility] [address] [place] [address] Dr. Win Ardon PLT 231 103/ul Normal 150-450 [facility] Comment on above: Performed By: #### C BC #### [facility] [address] [address] [address] Win Ardon RBC 4.22 106/ul Normal 4.20-5.40 [facility] Comment on above: Performed By: #### C BC #### [facility] [address] [address] [address] Win Ardon WBC 9.3 103/ul Normal 4.0-11.0 [facility] Comment on above: Performed By: #### C BC #### [facility] [address] [address] ABD/PELVIS WO CONon 04-01 CT ABD/PELVIS WO CON EXAMINATION: CT ABDOMEN AND PELVIS WITHOUT IV CONTRAST CLINICAL HISTORY: 3 day history of hematochezia TECHNIQUE: Non-IV contrast imaging of the abdomen and pelvis was performed using standard technique, scanning from just above the dome of the diaphragm to the symphysis pubis. Unenhanced imaging is limited for the evaluation of some intra-abdominal and pelvic pathology. All CT scans at this facility use dose modulation, iterative reconstruction, and/or weight based dosing when appropriate to reduce radiation dose to as low as reasonably achievable. Contrast: IV: None COMPARISON: CT abdomen and pelvis 11/21/2021 RESULT: Abdomen / Pelvis: Liver: Unremarkable. Biliary: The gallbladder is unremarkable. Spleen: No splenomegaly. Pancreas: Unremarkable. Adrenals: Normal. Kidneys: 8mm left proximal ureteral calculus. No significant hydronephrosis. GI Tract: No bowel dilation. Appendix not visualized. No diverticulosis. Lymph Nodes: No lymphadenopathy. Mesentery/peritoneum : No ascites. Retroperitoneum: No mass. Vasculature: No abdominal aortic or iliac artery aneurysm. Pelvis: No mass or ascites. Urinary bladder is unremarkable. Bones/Soft Tissues: No acute abnormality. Lower thorax: Unremarkable. IMPRESSION: No acute findings in the abdomen and pelvis. 8 mm proximal left ureteral calculus without hydronephrosis. Electronically authenticated by: LISSETT ALAN Date: 2023-04-01 20:03 Normal [facility] LACTATE/LACTIC ACIDon 2022 Lactate [Moles/Vol] 1.2 mmol/L Normal 0.4-2.0 [facility] Comment on above: Performed By: #### L ACT #### [facility] [address] [address] [address] 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 Order #: [id number] CLICK HERE TO VIEW EXAM RADIOLOGY REPORT PROCEDURE: RADIONUCLIDE IMAGING STRESS/REST MULTI COMPARISON: NM STRESS/REST MULTI, 01/31/2021. INDICATIONS: Chest pain, syncope and collapse TECHNIQUE: Exam Description: Stress/Rest one day protocol gated SPECT Rest Imagin.9 mCi Tc-99m Cardiolite IV on 04/01/2023 Stress Imaging 30.5 mCi Tc-99m Cardiolite IV on 04/01/2023 Exercise Protocol: 0.4 mg Lexiscan given IV Heart Rate (bpm): Rest: 61 Max: 85 PMHR: 54 Blood Pressure: Rest: 138/78 Max: 138/78 Symptoms: Rest and peak stress ECG findings were pending and the exercise portion of the study was pending per attending physician Dr. NEWMAN . For more details please see separate cardiac stress test report. FINDINGS: QUALITY OF STUDY: Excellent. PERFUSION DEFECT: None. LOCATION: N/A SIZE: N/A. SEVERITY: N/A. TYPE: N/A. WALL MOTION: Normal. LV SIZE: Normal. 103 mL. TID / TCD: None; 1.0 LVEF: Normal. Calculated EF 76%. SUMMARY: Myocardial perfusion imaging study is NORMAL. CONCLUSION: 1. Normal nuclear medicine myocardial perfusion scan. Dictated by: Mercedes Clark M.D. on 04/02/2023 at 11:08 Approved by: Mercedes Clark M.D. on 04/02/2023 at 11:10 Normal [facility] OCC BLD IMMUNO SCREENon 03-17 OCCULT BLOOD Positive Abnormal NEGATIVE [facility] Comment on above: Performed By: #### O BSCRN #### [facility] [address] [address] [address] Win Ardon PROF 14(COMP METB)on 023 Albumin [Mass/Vol] 3.8 g/dL Normal 3.4-5.0 [facility] Comment on above: Performed By: #### C MP ####[facility] [address] [place], [place] [address]DrOtilia Ardon Albumin/Globulin [Mass ratio] 1.1 {ratio} Normal [facility] Comment on above: Performed By: #### C MP ####[facility] [address] [place], [place] [address]DrOtilia Ardon ALP [Catalytic activity/Vol] 99 U/L Normal 46-116 [facility] Comment on above: Performed By: #### C MP ####[facility] [address] [place], [place] [address]DrOtilia Ardon ALT [Catalytic activity/Vol] 17 U/L Normal 14-59 [facility] Comment on above: Performed By: #### C MP ####[facility] [address] [place], [place] [address]DrOtilia Ardon Anion gap [Moles/Vol] 13.4 mmol/L Normal [facility] Comment on above: Performed By: #### C MP ####[facility] [address] [place], [place] [address]DrOtilia Ardon AST [Catalytic activity/Vol] 11 U/L Critically low 15-37 [facility] Comment on above: Performed By: #### C MP ####[facility] [address] [place], [place] [address]DrOtilia Ardon Bilirubin [Mass/Vol] 0.6 mg/dL Normal 0.2-1.0 [facility] Comment on above: Performed By: #### C MP ####[facility] [address] [place], [place] [address]DrOtilia Ardon Calcium [Mass/Vol] 9.1 mg/dL Normal 8.5-10.1 [facility] Comment on above: Performed By: #### C MP ####[facility] [address] [place], [place] [address]DrOtilia Ardon Chloride [Moles/Vol] 106 mmol/L Normal 98-107 [facility] Comment on above: Performed By: #### C MP ####[facility] [address] [address]Dr. Win Ardon CO2 [Moles/Vol] 29.2 mmol/L Normal 21.0-32.0 The [facility] Comment on above: Performed By: #### C MP ####[facility] [address] [address]Dr. Win Duglas Creatinine [Mass/Vol] 0.95 mg/dL Normal 0.55-1.02 [facility] Comment on above: Performed By: #### C MP ####[facility] [address] [place], [place] [address]Dr. Win Duglas EGFR-AF URUGUAYAN >60 Normal >=60 The [facility] Comment on above: Performed By: #### C MP ####[facility] [address] [address]Dr. Win Duglas EGFR-NON AF URUGUAYAN 59 mL/min/1.73m2 Critically low >=60 [facility] Comment on above: Performed By: #### C MP ####[facility] [address] [place], [place] [address]Dr. Win Duglas Globulin (S) [Mass/Vol] 3.4 g/dL Normal [facility] Comment on above: Performed By: #### C MP ####[facility] [address] [address]Dr. Win Duglas Glucose [Mass/Vol] 162 mg/dL Critically high 74-106 [facility] Comment on above: Performed By: #### C MP ####[facility] [address] [place], [place] [address]Dr. Win Duglas Potassium [Moles/Vol] 3.6 mmol/L Normal 3.5-5.1 [facility] Comment on above: Performed By: #### C MP ####[facility] [address] [place], [place] [address]Dr. Claudiaaida Ardon Protein [Mass/Vol] 7.2 g/dL Normal 6.4-8.2 [facility] Comment on above: Performed By: #### C MP ####[facility] [address] [place], [place] [address]Dr. Win Ardon Sodium [Moles/Vol] 145 mmol/L Normal 136-145 [facility] Comment on above: Performed By: #### C MP ####[facility] [address] [place], [place] [address]Dr. Win Ardon Urea nitrogen [Mass/Vol] 14.0 mg/dL Normal 7.0-18.0 [facility] Comment on above: Performed By: #### C MP ####[facility] [address] [place], [place] [address]Dr. Win Ardon Urea nitrogen/Creatinine [Mass ratio] 14.7 mg/mg Normal [facility] Comment on above: Performed By: #### C MP ####[facility] [address] [place], [place] [address]Dr. Win Ardon PROTIMEon 04-01-2023 INR Coag (PPP) [Relative time] 1.02 {INR} Normal [facility] Comment on above: Performed By: #### P TT, PT ####[facility] [address] [place], [place] [address]Dr. Win Ardon INR GUIDELINES SEE BELOW Normal [facility] Comment on above: Result Comment: MAGDA RED INR: 2.0 - 3.0 CONDITIONS NOT LISTED BELOW 2.5 - 3.5 FOR PROSTHETIC HEART VALVE REPLACEMENT 2.5 - 3.5 RECURRENT THROMBOSIS Performed By: #### P TT, PT ####[facility] [address] [place], [place] [address]Dr. Win Ardon PT Coag (PPP) [Time] 10.8 s Normal 9.0-11.6 [facility] Comment on above: Performed By: #### P TT, PT ####[facility] [address] [place], [place] [address]Dr. Win Ardon PTTon 04-01-2023 aPTT Coag (Bld) [Time] 26.5 s Normal 22.3-36.2 Th e [facility] Comment on above: Performed By: #### P TT, PT ####[facility] [address] [place], [place] [address]Dr. Win Duglas TYPE AND SCREENon 04-01-2023 TYPE AND SCREEN Negative Normal [facility] [place] Comment on above: Performed By: #### T NS ####[facility] [address] [place], [place] [address]Dr. Win Duglas CBC AUTO DIFFon 03-24-2023 BASO # 0.1 103/ul Normal 0.0-0.1 [facility] Comment on above: Performed By: #### C BC ####[facility] [address] [place], [place] [address]Dr. Win Ardon Basophils/100 WBC (Bld) 1.0 % Normal 0.2-2.0 [facility] Comment on above: Performed By: #### C BC ####[facility] [address] [place], [place] [address]Dr. Win Ardon EO # 0.3 103/ul Normal 0.0-0.7 [facility] Comment on above: Performed By: #### C BC ####[facility] [address] [place], [place] [address]Dr. Win Ardon Eosinophils/100 WBC (Bld) 3.3 % Normal 0.9-7.0 [facility] Comment on above: Performed By: #### C BC ####[facility] [address] [place], [place] [address]Dr. Win Ardon Erythrocyte distribution width (RBC) [Ratio] 13.2 % Normal 11.0-15.0 [facility] Comment on above: Performed By: #### C BC ####[facility] [address] [place], [place] [address]Dr. Win Ardon Hematocrit (Bld) [Volume fraction] 41.3 % Normal 36.0-48.0 [facility] Comment on above: Performed By: #### C BC ####[facility] [address] [place], [place] [address]DrOtilia Ardon Hemoglobin (Bld) [Mass/Vol] 13.6 g/dL Normal 12.0-16.0 [facility] Comment on above: Performed By: #### C BC ####[facility] [address] [address]DrOtilia Ardon IG # 0.04 10e3/ul Critically high 0.00-0.03 [facility] Comment on above: Performed By: #### C BC ####[facility] [address] [address]DrOtilia Ardon IG % 0.4 % Normal 0.0-0.5 [facility] Comment on above: Performed By: #### C BC ####[facility] [address] [place], [place] [address]DrOtilia Ardon LYMPH # 2.2 103/ul Normal 1.2-3.8 [facility] Comment on above: Performed By: #### C BC ####[facility] [address] [place], [place] [address]DrOtilia Ardon Lymphocytes/100 WBC (Bld) 23.8 % Normal 20.5-60.0 [facility] Comment on above: Performed By: #### C BC ####[facility] [address] [place], [place] [address]DrOtilia Ardon MANUAL DIFF REQ NO Normal [facility] Comment on above: Performed By: #### C BC ####[facility] [address] [address]DrOtilia Ardon MCH (RBC) [Entitic mass] 30.6 pg Normal 26.7-34.0 [facility] Comment on above: Performed By: #### C BC ####[facility] [address] [place], [place] [address]DrOtilia Ardon MCHC (RBC) [Mass/Vol] 32.9 g/dL Normal 29.9-35.2 [facility] Comment on above: Performed By: #### C BC ####[facility] [address] [place], [place] [address]DrOtilia Ardon MCV (RBC) [Entitic vol] 93.0 fL Normal 81.0-99.0 [facility] Comment on above: Performed By: #### C BC ####[facility] [address] [place], [place] [address]Dr. Win Ardon MONO # 0.7 103/ul Normal 0.3-0.8 [facility] Comment on above: Performed By: #### C BC ####[facility] [address] [place], [place] [address]Dr. Win Ardon Monocytes/100 WBC (Bld) 7.3 % Normal 1.7-12.0 [facility] Comment on above: Performed By: #### C BC ####[facility] [address] [place], [place] [address]Dr. Win Ardon NEUT # 5.8 103/ul Normal 1.4-6.5 [facility] Comment on above: Performed By: #### C BC ####[facility] [address] [place], [place] [address]Dr. Win Ardon Neutrophils/100 WBC (Bld) 64.2 % Normal 43.0-75.0 [facility] Comment on above: Performed By: #### C BC ####[facility] [address] [place], [place] [address]Dr. Win Ardon Platelet mean volume (Bld) [Entitic vol] 11.0 fL Normal 9.5-13.5 [facility] Comment on above: Performed By: #### C BC ####[facility] [address] [place], [place] [address]Dr. Win Ardon PLT 243 103/ul Normal 150-450 [facility] Comment on above: Performed By: #### C BC ####[facility] [address] [place], [place] [address]Dr. Win Duglas RBC 4.44 106/ul Normal 4.20-5.40 [facility] Comment on above: Performed By: #### C BC ####[facility] [address] [place], [place] [address]Dr. Claudiaaida Duglas WBC 9.1 103/ul Normal 4.0-11.0 [facility] Comment on above: Performed By: #### C BC ####[facility] [address] [place], [place] [address]IyDr. Win Ardon LIPID PROFILEon 03-24-2023 CHOL-HDL RATIO NORM SEE BELOW Normal [facility] Comment on above: Result Comment: 3.3 - 4.4 LOW RISK 4.4 - 7.1 AVERAGE RISK 7.1 - 11.0 MODERATE RISK >11.0 HIGH RISK Performed By: #### C MP, LIPID #### [facility] [address] [place], [place] [address] Dr. Win Ardon Cholesterol [Mass/Vol] 99 mg/dL Normal <=200 Th [facility] Comment on above: Performed By: #### C MP, LIPID #### [facility] [address] [place], [place] [address] Dr. Win Ardon Cholesterol in HDL [Mass/Vol] 34 mg/dL Critically low 40-60 [facility] Comment on above: Performed By: #### C MP, LIPID #### [facility] [address] [place], [place] [address] Dr. Win Ardon Cholesterol in LDL [Mass/Vol] 35.8 mg/dL Normal [facility] Comment on above: Performed By: #### C MP, LIPID #### [facility] [address] [place], [place] [address] Dr. Win Ardon Cholesterol.total/Chol esterol in HDL [Mass ratio] 2.9 {ratio} Normal [facility] Comment on above: Performed By: #### C MP, LIPID #### [facility] [address] [place], [place] [address] Dr. Win Ardon HDL NORMAL > or = 60 mg/dl - LOW CARDIOVASCULAR RISK <40 mg/dl - HIGH CARDIOVASCULAR RISK Normal [facility] Comment on above: Performed By: #### C MP, LIPID #### [facility] [address] [place], [place] [address] Dr. Win Ardon LDL CALC NORMAL SEE BELOW Normal [facility] [place] Comment on above: Result Comment: <100 mg/dl OPTIMAL 100 - 129 mg/dl NEAR OR ABOVE OPTIMAL 130 - 159 mg/dl BORDERLINE HIGH 160 - 189 mg/dl HIGH >190 mg/dl VERY HIGH Performed By: #### C MP, LIPID #### [facility] [address] [place] [address] Dr. Win Ardon Triglyceride [Mass/Vol] 146 mg/dL Normal <=150 [facility] Comment on above: Performed By: #### C MP, LIPID #### [facility] [address] [place] [address] Dr. Win Ardon VLDL CALC 29.2 mg/dL Normal [facility] Comment on above: Performed By: #### C MP, LIPID #### [facility] [address] [place] [address] Dr. Win Ardon PROF 14(COMP METB)on 023 Albumin [Mass/Vol] 3.9 g/dL Normal 3.4-5.0 [facility] Comment on above: Performed By: #### C MP, LIPID #### [facility] [address] [place] [address] Dr. Win Ardon Albumin/Globulin [Mass ratio] 1.1 {ratio} Normal [facility] Comment on above: Performed By: #### C MP, LIPID #### [facility] [address] [place] [address] Dr. Win Ardon ALP [Catalytic activity/Vol] 96 U/L Normal 46-116 [facility] Comment on above: Performed By: #### C MP, LIPID #### [facility] [address] [place] [address] Dr. Win Ardon ALT [Catalytic activity/Vol] 15 U/L Normal 14-59 [facility] Comment on above: Performed By: #### C MP, LIPID #### [facility] [address] [place] [address] Dr. Win Ardon Anion gap [Moles/Vol] 12.1 mmol/L Normal [facility] Comment on above: Performed By: #### C MP, LIPID #### [facility] [address] [place] [address] Dr. Win Ardon AST [Catalytic activity/Vol] 10 U/L Critically low 15-37 [facility] Comment on above: Performed By: #### C MP, LIPID #### [facility] [address] [place] [address] Dr. Win Ardon Bilirubin [Mass/Vol] 0.8 mg/dL Normal 0.2-1.0 [facility] Comment on above: Performed By: #### C MP, LIPID #### [facility] [address] [place] [address] Dr. Win Ardon Calcium [Mass/Vol] 9.1 mg/dL Normal 8.5-10.1 [facility] Comment on above: Performed By: #### C MP, LIPID #### [facility] [address] [place] [address] Dr. Win Ardon Chloride [Moles/Vol] 102 mmol/L Normal 98-107 [facility] Comment on above: Performed By: #### C MP, LIPID #### [facility] [address] [place] [address] Dr. Win Ardon CO2 [Moles/Vol] 26.0 mmol/L Normal 21.0-32.0 [facility] Comment on above: Performed By: #### C MP, LIPID #### [facility] [address] [place] [address] Dr. Win Ardon Creatinine [Mass/Vol] 0.95 mg/dL Normal 0.55-1.02 [facility] Comment on above: Performed By: #### C MP, LIPID #### [facility] [address] [place] [address] Dr. Win Ardon EGFR-AF URUGUAYAN >60 Normal >=60 [facility] Comment on above: Performed By: #### C MP, LIPID #### [facility] [address] [place] [address] Dr. Win Ardon EGFR-NON AF URUGUAYAN 59 mL/min/1.73m2 Critically low >=60 [facility] Comment on above: Performed By: #### C MP, LIPID #### [facility] [address] [place] [address] Dr. Win Ardon Globulin (S) [Mass/Vol] 3.7 g/dL Normal [facility] Comment on above: Performed By: #### C MP, LIPID #### [facility] [address] [place] [address] Dr. Win Ardon Glucose [Mass/Vol] 336 mg/dL Critically high 74-106 [facility] Comment on above: Performed By: #### C MP, LIPID #### [facility] [address] [place] [address] Dr. Win Ardon Potassium [Moles/Vol] 4.1 mmol/L Normal 3.5-5.1 [facility] Comment on above: Performed By: #### C MP, LIPID #### [facility] [address] [place] [address] Dr. Win Ardon Protein [Mass/Vol] 7.6 g/dL Normal 6.4-8.2 [facility] Comment on above: Performed By: #### C MP, LIPID #### [facility] [address] [place] [address] Dr. Win Ardon Sodium [Moles/Vol] 136 mmol/L Normal 136-145 [facility] Comment on above: Performed By: #### C MP, LIPID #### [facility] [address] [place] [address] Dr. Win Ardon Urea nitrogen [Mass/Vol] 10.0 mg/dL Normal 7.0-18.0 [facility] Comment on above: Performed By: #### C MP, LIPID #### [facility] [address] [place] [address] Dr. Win Ardon Urea nitrogen/Creatinine [Mass ratio] 10.5 mg/mg Normal [facility] Comment on above: Performed By: #### C MP, LIPID #### [facility] [address] [place], [place] [id number] Dr. Win Ardon EMS Documentationon 03-18-20 23 EMS Documentation Normal [facility] Office Visiton 03-10-2023 Follow-up visit [id number] Yeyo Avila 1955 Date Provider Department [place] 03/10/2023 JONO SAMS BH CARD [facility] No family history on file Level of Service:24338 [place] OFFICE/OUTPATIENT ESTABLISHED MOD MDM 30-39 MIN Reason for Visit and Comments: Coronary Artery Disease [187] Hypertension [138452] aneurysm of thoracic aorta [Other] Normal [facility] Coding Summary.on 02-27-2023 Coding Summary. Normal [facility] EMS Documentationon 02-28-20 EMS Documentation Normal [facility] EMS Documentation Normal [facility] Auto Diffon 02-24-2023 Basophils/100 WBC (Bld) 0.3 % Normal 0.0-2.0 [facility] Comment on above: Order Comment: Order Added by Discern Expert. Performed By: #### 2 163844, [id number], 0273584, 60851866, 2008940, 20212326, 5771887 ####[facility] [address] [place] [address] Basophils/Leukocytes Auto (Bld) [Pure # fraction] 0.1 E9/L Normal 0.0-0.2 [facility] Comment on above: Order Comment: Order Added by Discern Expert. Performed By: #### 2 990854, 30032564, 5682606, 68995818, 0733179, 72361118, 7400356 ####[facility] [address] [place] [address] Eosinophils/100 WBC (Bld) 1.4 % Normal 0.0-8.0 [facility] Comment on above: Order Comment: Order Added by Discern Expert. Performed By: #### 2 943463, 15756202, 1234483, 12353993, 3816702, 53682485, 4751379 ####[facility] [address] [place] [address] Eosinophils/Leukocytes Auto (Bld) [Pure # fraction] 0.2 E9/L Normal 0.0-0.5 [facility] Comment on above: Order Comment: Order Added by Discern Expert. Performed By: #### 2 754001, 85937128, 6876434, 69937639, 2879377, 28551448, 2590552 ####[facility] [address] [place] [address] Lymphocytes/100 WBC (Bld) 30.2 % Normal 14.0-50.0 [facility] Comment on above: Order Comment: Order Added by Discern Expert. Performed By: #### 2 400637, 89997326, 7059547, 23133701, 6825220, 19721575, 4060519 ####[address] [place] [address] Lymphocytes/Leukocytes Auto (Bld) [Pure # fraction] 5.1 E9/L High 1.0-4.0 [facility] Comment on above: Order Comment: Order Added by Discern Expert. Performed By: #### 2 772558, 79947924, 1470100, 24776979, 6972638, 80859511, 0349811 ####[address] [address] Monocytes/100 WBC (Bld) 8.3 % Normal 4.0-14.0 [facility] Comment on above: Order Comment: Order Added by Discern Expert. Performed By: #### 2 070903, 92625255, 4245768, 97479695, 9725806, 26415905, 3531996 ####[address] [place] [address] Monocytes/Leukocytes Auto (Bld) [Pure # fraction] 1.4 E9/L High 0.2-1.0 [facility] Comment on above: Order Comment: Order Added by Discern Expert. Performed By: #### 2 676022, 49293689, 1298588, 51556846, 4623922, 44703509, 7025739 ####[address] [address] Neutrophils/100 WBC (Bld) 59.8 % Normal 36.0-75.0 [facility] Comment on above: Order Comment: Order Added by Discern Expert. Performed By: #### 2 047042, 90739767, 8292391, 36656455, 9520185, 21672968, 7692755 ####[facility] [address] [place] [address] Neutrophils/Leukocytes Auto (Bld) [Pure # fraction] 10.0 E9/L High 2.0-7.5 [facility] Comment on above: Order Comment: Order Added by Discern Expert. Performed By: #### 2 164309, 57881864, 4797767, 77109274, 3557513, 23208904, 5809621 ####[facility] [address] [place] [address] BMPon 02-24-2023 Anion gap [Moles/Vol] 8 mmol/L Normal 6-16 [facility] Comment on above: Performed By: #### 1 3515883, 14154795, 3543801, 3325166, 2910630 ####[facility] [address] [place] [address] Calcium [Mass/Vol] 8.4 mg/dL Low 8.9-11.1 [facility] Comment on above: Performed By: #### 1 4004598, 57114858, 7609671, 5175895, 1905231 ####[facility] [address] [place] [address] Chloride [Moles/Vol] 108 mmol/L Normal 101-111 [facility] Comment on above: Performed By: #### 1 2953785, 64408737, 8997146, 5226034, 9004978 ####[facility] [address] [place] [address] CO2 [Moles/Vol] 25 mmol/L Normal 21-31 [facility] Comment on above: Performed By: #### 1 0465532, 66476796, 2283058, 9362176, 7638851 ####[facility] [address] [place] [address] Creatinine [Mass/Vol] 1.2 mg/dL Normal 0.5-1.3 [facility] Comment on above: Performed By: #### 1 6713760, 46152887, 4851710, 5643782, 1849559 ####[facility] [address] [place] [address] Glucose [Mass/Vol] 102 mg/dL Normal 55-199 [facility] Comment on above: Result Comment: If t his glucose result represents a fasting glucose, interpretation should refer to the following reference range: 55-99 mg/dL Performed By: #### 1 6767916, 24666381, 2403948, 5232188, 6026187 ####[facility] [address] [place] [address] Potassium [Moles/Vol] 3.4 mmol/L Low 3.5-5.3 [facility] Comment on above: Performed By: #### 1 2314454, 01618507, 4856857, 7769453, 8297362 ####[facility] [address] [place] [address] Sodium [Moles/Vol] 138 mmol/L Normal 135-145 [facility] Comment on above: Performed By: #### 1 4744868, 67654537, 2734998, 9398515, 9771113 ####[facility] [address] [place] [address] Urea nitrogen [Mass/Vol] 30 mg/dL High 5-21 [facility] Comment on above: Performed By: #### 1 7762430, 60692214, 1258917, 4436630, 2045906 ####[facility] [address] [place] [address] Urea nitrogen/Creatinine [Mass ratio] 25 No Units High 10-20 [facility] Comment on above: Performed By: #### 1 7118306, 27681959, 5947883, 6885051, 1444789 ####[facility] [address] [place] [address] Creatinine [Mass/Vol] 1.4 mg/dL High 0.5-1.3 [facility] Comment on above: Performed By: #### 2 976163, 54154186, 6067483, 37914049, 6424432, 27571237, 7922479 ####[facility] [address] [place] [address] Urea nitrogen [Mass/Vol] 30 mg/dL High 5-21 [facility] Comment on above: Performed By: #### 2 349060, 59337140, 3927229, 57087874, 9269254, 45345219, 1897684 ####[facility] [address] [place] [address] Urea nitrogen/Creatinine [Mass ratio] 21 No Units High 10-20 [facility] Comment on above: Performed By: #### 2 946023, 89191308, 0136650, 49542856, 1143144, 05035343, 1570748 ####[facility] [address] [place] [address] Anion gap [Moles/Vol] 11 mmol/L Normal 6-16 [facility] Comment on above: Performed By: #### 2 508495, 93614617, 1934035, 41884342, 4670170, 36331304, 1461868 ####[facility] [address] [place] [address] Calcium [Mass/Vol] 8.9 mg/dL Normal 8.9-11.1 [facility] Comment on above: Performed By: #### 2 084320, 35770195, 2033791, 33238268, 5318225, 66955249, 3277771 ####[facility] [address] [place] [address] Chloride [Moles/Vol] 103 mmol/L Normal 101-111 [facility] Comment on above: Performed By: #### 2 123719, 18909159, 6076622, 49208599, 2834952, 37404782, 3737029 ####[facility] [address] [place] [address] CO2 [Moles/Vol] 26 mmol/L Normal 21-31 [facility] Comment on above: Performed By: #### 2 749047, 82530682, 2452947, 98818709, 6399865, 32870531, 8585093 ####[facility] [address] [place] [address] Glucose [Mass/Vol] 118 mg/dL Normal 55-199 [facility] Comment on above: Result Comment: If t his glucose result represents a fasting glucose, interpretation should refer to the following reference range: 55-99 mg/dL Performed By: #### 2 585821, 86534352, 7828102, 36988089, 3972793, 42293267, 9257226 ####[facility] [address] [place] [address] Potassium [Moles/Vol] 3.0 mmol/L Low 3.5-5.3 [facility] Comment on above: Performed By: #### 2 484732, 75433313, 1851007, 52072714, 0677099, 10620315, 4466807 ####[facility] [address] [place] [address] Sodium [Moles/Vol] 137 mmol/L Normal 135-145 [facility] Comment on above: Performed By: #### 2 309104, 02969945, 2413596, 67008050, 2717861, 17079469, 7025045 ####[facility] [address] [place] [address] CBC w/ Auto Diffon Erythrocyte distribution width (RBC) [Ratio] 13.5 % Normal 10.9-14.2 [facility] Comment on above: Performed By: #### 2 865768, 93948366, 5374516, 40155052, 3351304, 52359643, 2082309 ####[facility] [address] [place] [address] Hematocrit (Bld) [Volume fraction] 40.8 % Normal 34.0-46.0 [facility] Comment on above: Performed By: #### 2 578259, 26777168, 4629531, 92469454, 7466767, 42565942, 4874467 ####[facility] [address] [place] [address] Hemoglobin (Bld) [Mass/Vol] 13.8 g/dL Normal 12.0-16.0 [facility] Comment on above: Performed By: #### 2 012603, 80264568, 8941247, 72182096, 6377365, 94078053, 0581759 ####[facility] [address] [place] [address] MCH (RBC) [Entitic mass] 29.6 pg Normal 27.0-34.0 [facility] Comment on above: Performed By: #### 2 130937, 19131619, 1940619, 37534550, 5941605, 43829949, 2735762 ####[address] [address] MCHC (RBC) [Mass/Vol] 33.9 g/dL Normal 31.4-36.0 [facility] Comment on above: Performed By: #### 2 076236, 71434453, 2602355, 83671903, 0848856, 02726051, 5385165 ####[address] [address] MCV (RBC) [Entitic vol] 87.3 fL Normal 80.0-100.0 [facility] Comment on above: Performed By: #### 2 597056, 97599261, 6067280, 34277851, 9838800, 66181308, 5249077 ####[facility] [address] [place] [address] Platelet mean volume (Bld) [Entitic vol] 9.3 fL Normal 6.4-10.8 [facility] Comment on above: Performed By: #### 2 537995, 33426686, 6434702, 98488543, 3942792, 46372645, 0576820 ####[address] [address] Platelets (Bld) [#/Vol] 234.0 E9/L Normal 150.0-500.0 [facility] Comment on above: Performed By: #### 2 124036, 56462331, 5901291, 96973398, 4760534, 78603686, 9787312 ####[facility] [address] [place] [address] RBC (Bld) [#/Vol] 4.7 E12/L Normal 4.3-5.9 [facility] Comment on above: Performed By: #### 2 835493, 13863996, 1505982, 57627751, 5672487, 45062975, 3381575 ####[facility] [address] [place] [address] WBC corrected for nucl RBC Auto (Bld) [#/Vol] 16.7 E9/L High 4.0-11.0 [facility] Comment on above: Result Comment: Slid e reviewed by AD. Performed By: #### 2 922054, 31253475, 8242230, 53281011, 4045822, 00459135, 7134693 ####[facility] [address] [place] [address] CHEMISTRYOrdered By: Lab ROP User on 02-24-2023 Glucose [Mass/Vol] 144 mg/dL High 55 - 99 mg/dL [facility] POC Subsection Comment on above: Result Comment: Edilia arleth Meter POC Device SN [id number] Invalid Interpretation Code [facility] POC Subsection POC User ID [id number] Invalid Interpretation Code [facility] POC Subsection POC Username KRISTI MADDEN Invalid Interpretation Code [facility] POC Subsection Glucose [Mass/Vol] 76 mg/dL Normal 55 - 99 mg/dL [facility] POC Subsection Comment on above: Result Comment: Edilia arleth Meter POC Device SN [id number] Invalid Interpretation Code [facility] POC Subsection POC User ID [id number] Invalid Interpretation Code [facility] POC Subsection POC Username KRISTI MADDEN Invalid Interpretation Code [facility] POC Subsection CHEMISTRYOrdered By: SYSTEM SYSTEM on 02-24-2023 Potassium [Moles/Vol] 3.7 mmol/L Normal 3.5 - 5.3 mmol/L [facility] Anion gap [Moles/Vol] 8 mmol/L Normal 6 - 16 mEq/L [facility] Calcium [Mass/Vol] 8.4 mg/dL Low 8.9 - 11. 1 mg/dL [facility] Chloride [Moles/Vol] 108 mmol/L Normal 101 - 1 11 mmol/L [facility] CO2 [Moles/Vol] 25 mmol/L Normal 21 - 31 mmol/L [facility] Creatinine [Mass/Vol] 1.2 mg/dL Normal 0.5 - 1.3 mg/dL [facility] GFR/1.73 sq M.predicted among blacks MDRD (S/P/Bld) [Vol rate/Area] 55 mL/min/1.73 m2 Low >=59mL/min/1 .73 m2 FT Chem S GFR/1.73 sq M.predicted among non-blacks MDRD (S/P/Bld) [Vol rate/Area] 45 mL/min/1.73 m2 Low >=59mL/min/1 .73 m2 [facility] Chem S Glucose [Mass/Vol] 102 mg/dL Normal 55 - 199 mg/dL [facility] Magnesium [Mass/Vol] 2.1 mg/dL Normal 1.3 - 2 .4 mg/dL [facility] Potassium [Moles/Vol] 3.4 mmol/L Low 3.5 - 5.3 mmol/L [facility] Sodium [Moles/Vol] 138 mmol/L Normal 135 - 145 mmol/L [facility] Troponin I.cardiac [Mass/Vol] 7.40 pg/mL Low 10.10 - 27.10 pg/mL [facility] TSH Qn 0.97 m[IU]/L Normal 0.34 - 5.60 mcIU/mL [facility] Urea nitrogen [Mass/Vol] 30 mg/dL High 5 - 21 mg/dL [facility] Urea nitrogen/Creatinine [Mass ratio] 25 mg/mg High 10 - 20 [facility] Troponin I.cardiac [Mass/Vol] 6.70 pg/mL Low 10.10 - 27.10 pg/mL [facility] Albumin [Mass/Vol] 3.7 g/dL Normal 3.3 - 5.0 gm/dL [facility] Albumin/Globulin [Mass ratio] 1.3 {ratio} Normal 1.1 - 2.2 [facility] ALP [Catalytic activity/Vol] 84 [iU]/d Normal 21 - 98 Int._Unit/L [facility] ALT No additional P-5'-P [Catalytic activity/Vol] 13 [iU]/d Normal 6 - 46 Int._Unit/L [facility] Anion gap [Moles/Vol] 11 mmol/L Normal 6 - 16 mEq/L [facility] AST [Catalytic activity/Vol] 14 [iU]/d Normal 5 - 43 Int._Unit/L [facility] Bilirubin [Mass/Vol] 1.1 mg/dL Normal 0.0 - 1 .1 mg/dL [facility] Bilirubin.direct [Mass/Vol] 0.3 mg/dL Normal 0.1 - 0.4 mg/dL [facility] Bilirubin.indirect [Mass or moles/Vol] 0.8 mg/dL Normal 0.1 - 0.9 mg/dL [facility] Calcium [Mass/Vol] 8.9 mg/dL Normal 8.9 - 11. 1 mg/dL [facility] Chloride [Moles/Vol] 103 mmol/L Normal 101 - 1 11 mmol/L [facility] CO2 [Moles/Vol] 26 mmol/L Normal 21 - 31 mmol/L [facility] Creatinine [Mass/Vol] 1.4 mg/dL High 0.5 - 1.3 mg/dL [facility] GFR/1.73 sq M.predicted among blacks MDRD (S/P/Bld) [Vol rate/Area] 46 mL/min/1.73 m2 Low >=59mL/min/1 .73 m2 [facility] Chem S GFR/1.73 sq M.predicted among non-blacks MDRD (S/P/Bld) [Vol rate/Area] 38 mL/min/1.73 m2 Low >=59mL/min/1 .73 m2 [facility] Chem S Globulin (S) [Mass/Vol] 2.8 g/dL Normal 1.4 - 4.0 gm/dL [facility] Glucose [Mass/Vol] 118 mg/dL Normal 55 - 199 mg/dL [facility] Potassium [Moles/Vol] 3.0 mmol/L Low 3.5 - 5.3 mmol/L [facility] Protein [Mass/Vol] 6.5 g/dL Normal 6.0 - 7.8 gm/dL [facility] Sodium [Moles/Vol] 137 mmol/L Normal 135 - 145 mmol/L [facility] Troponin I.cardiac [Mass/Vol] 8.00 pg/mL Low 10.10 - 27.10 pg/mL [facility] Urea nitrogen [Mass/Vol] 30 mg/dL High 5 - 21 mg/dL [facility] Urea nitrogen/Creatinine [Mass ratio] 21 mg/mg High 10 - 20 [facility] COAGULATIONOrdered By: Soheila Jenkins on 02-24-2023 aPTT Coag (PPP) [Time] 23.9 s Low 25.1 - 36.5 second(s) [facility] Auto Coag INR Coag (PPP) [Relative time] 1.2 {INR} Invalid Interpretation Code [facility] Auto Coag PT Coag (PPP) [Time] 13.7 s High 9.4 - 1 2.5 second(s) [facility] Auto Coag CT Head or Brain w/o Contras ton 02-24-2023 CT Head or Brain w/o Contrast Normal [facility] CT Spine Cervical w/o Contra ston 02-24-2023 CT Spine Cervical w/o Contrast Normal [facility] Capillary Glucose POCon 02-15 Glucose [Mass/Vol] 144 mg/dL High 55-99 [facility] Comment on above: Result Comment: Edilia arleth Meter Performed By: #### 2 [id number] ####[facility] [address] [place] [address] Glucose [Mass/Vol] 76 mg/dL Normal 55-99 [facility] Comment on above: Result Comment: Edilia arleth Meter Performed By: #### 2 [id number] ####[facility] [address] [place] [address] Consent for Treatmenton 02-15 Consent for Treatment [id number] 5#1.00CD:127 Normal [facility] Discharge Instructionson Discharge Instructions [id number] 8#1.00CD:127 Normal [facility] ED Clinical Summaryon 2022 ED Clinical Summary Normal [facility] ED Note-Physicianon 02-25-20 ED Note-Physician Normal [facility] Comment on above: Result Comment: Elec tronically Signed By: Timoteo PRADO, Jordy\.br\Date and Time Signed: 02/24/23 02:05 EDT ED Patient Education Noteon 02-24-2023 ED Patient Education Note Normal [facility] ED Patient Summaryon 023 ED Patient Summary Normal [facility] ED Traumaon 02-24-2023 ED Trauma [id number] 1#1.00CD:127 Normal [facility] HEMATOLOGYOrdered By: SYSTEM SYSTEM on 02-24-2023 Basophils/100 WBC (Bld) 0.3 % Normal 0.0 - 2.0 % [facility] HemeAutoSS Basophils/Leukocytes Auto (Bld) [Pure # fraction] 0.1 E9/L Normal 0.0 - 0.2 E9/L [facility] HemeAutoSS Eosinophils/100 WBC (Bld) 1.4 % Normal 0.0 - 8.0 % [facility] HemeAutoSS Eosinophils/Leukocytes Auto (Bld) [Pure # fraction] 0.2 E9/L Normal 0.0 - 0.5 E9/L [facility] HemeAutoSS Lymphocytes/100 WBC (Bld) 30.2 % Normal 14.0 - 50.0 % [facility] HemeAutoSS Lymphocytes/Leukocytes Auto (Bld) [Pure # fraction] 5.1 E9/L High 1.0 - 4.0 E9/L [facility] HemeAutoSS Monocytes/100 WBC (Bld) 8.3 % Normal 4.0 - 14.0 % [facility] HemeAutoSS Monocytes/Leukocytes Auto (Bld) [Pure # fraction] 1.4 E9/L High 0.2 - 1.0 E9/L [facility] HemeAutoSS Neutrophils/100 WBC (Bld) 59.8 % Normal 36.0 - 75.0 % [facility] HemeAutoSS Neutrophils/Leukocytes Auto (Bld) [Pure # fraction] 10.0 E9/L High 2.0 - 7.5 E9/L [facility] HemeAutoSS HEMATOLOGYOrdered By: Dave Jenkins on 02-24-2023 Erythrocyte distribution width (RBC) [Ratio] 13.5 % Normal 10.9 - 14.2 % [facility] HemeAutoSS Hematocrit (Bld) [Volume fraction] 40.8 % Normal 34.0 - 46.0 % [facility] HemeAutoSS Hemoglobin (Bld) [Mass/Vol] 13.8 g/dL Normal 12.0 - 16.0 gm/dL [facility] HemeAutoSS MCH (RBC) [Entitic mass] 29.6 pg Normal 27.0 - 34.0 pg [facility] HemeAutoSS MCHC (RBC) [Mass/Vol] 33.9 g/dL Normal 31.4 - 36.0 gm/dL [facility] HemeAutoSS MCV (RBC) [Entitic vol] 87.3 fL Normal 80.0 - 100.0 fL [facility]eAuto[facility] Platelet mean volume (Bld) [Entitic vol] 9.3 fL Normal 6.4 - 10.8 fL [facility] HemeAutoSS Platelets (Bld) [#/Vol] 234.0 E9/L Normal 150.0 - 500.0 E9/L [facility] HemeAutoSS RBC (Bld) [#/Vol] 4.7 E12/L Normal 4.3 - 5.9 E12/L [facility] HemeAutoSS WBC corrected for nucl RBC Auto (Bld) [#/Vol] 16.7 E9/L High 4.0 - 11.0 E9/L [facility]eAutoSS Comment on above: Result Comment: Slid e reviewed by Hep Func Panelon 02-24-2023 Albumin [Mass/Vol] 3.7 g/dL Normal 3.3-5.0 [facility] Comment on above: Performed By: #### 2 349267, 21025531, 5556809, 55745550, 9406637, 50626842, 4107681 ####[facility] [address] [place] [address] Albumin/Globulin (S) [Mass conc ratio] 1.3 Normal 1.1-2.2 [facility] Comment on above: Performed By: #### 2 338917, 17604511, 3260615, 50686704, 3516819, 88180187, 7829584 ####[facility] [address] [place] [address] ALP [Catalytic activity/Vol] 84 Int._Unit/L Normal 21-98 [facility] Comment on above: Performed By: #### 2 112334, 38094497, 7833720, 30814994, 9624397, 94458739, 8232340 ####[facility] [address] [place] [address] ALT No additional P-5'-P [Catalytic activity/Vol] 13 Int._Unit/L Normal 6-46 [facility] Comment on above: Performed By: #### 2 112330, 78527279, 7357332, 46790272, 7823561, 38584844, 8399552 ####[place] [address] AST [Catalytic activity/Vol] 14 Int._Unit/L Normal 5-43 [facility] Comment on above: Performed By: #### 2 764485, 77604379, 2192576, 69762367, 9848744, 45116836, 2184011 ####[place] [place] [address] Bilirubin [Mass/Vol] 1.1 mg/dL Normal 0.0-1.1 [facility] Comment on above: Performed By: #### 2 174677, 48787155, 9615476, 77445758, 9926537, 48324285, 5741646 ####[address] [place] [address] Bilirubin.direct [Mass/Vol] 0.3 mg/dL Normal 0.1-0.4 [facility] Comment on above: Performed By: #### 2 875579, 79730270, 7040523, 06838486, 6316855, 87163191, 5188796 ####[address] [place] [address] Bilirubin.indirect [Mass or moles/Vol] 0.8 mg/dL Normal 0.1-0.9 [facility] Comment on above: Performed By: #### 2 102382, 25728079, 4033304, 45572215, 4455760, 11544747, 8475267 ####[facility] [address] [place] [address] Globulin (S) [Mass/Vol] 2.8 g/dL Normal 1.4-4.0 [facility] Comment on above: Performed By: #### 2 651876, 96972751, 0991917, 19951310, 1124608, 97666753, 5115801 ####[facility] [address] [place] [address] Protein [Mass/Vol] 6.5 g/dL Normal 6.0-7.8 [facility] Comment on above: Performed By: #### 2 162556, 20371328, 1577493, 29190667, 4185746, 19255176, 8996204 ####[facility] [address] [place] [address] Inpatient Clinical Summaryon 02-24-2023 Inpatient Clinical Summary Normal [facility] Inpatient Patient Summaryon 02-24-2023 Inpatient Patient Summary Normal [facility] Inpatient Patient Summary Normal [facility] Interdisciplinary Note - Aaron e Manageron 02-24-2023 Interdisciplinary Note - Brazer Helper Induction Normal [facility] Comment on above: Result Comment: Elec tronically Signed By: Freda Dodson\.diane\Date and Time Signed: 02/24/23 11:14 EDT Interdisciplinary Note - PTo n 02-24-2023 Interdisciplinary Note - PT Normal [facility] Magnesiumon 02-24-2023 Magnesium [Mass/Vol] 2.1 mg/dL Normal 1.3-2.4 [facility] Comment on above: Performed By: #### 1 0790358, 75137035, 2453591, 1090286, 8227310 ####[facility] [address] [place] [address] Monitor Recordon 02-24-2023 Monitor Record [id number] 4#1.00CD:127 Normal [facility] Monitor Record [id number] 0#1.00CD:127 Normal [facility] Monitor Record [id number] 6#1.00CD:127 Normal [facility] PT & PTTon 02-24-2023 aPTT Coag (PPP) [Time] 23.9 second(s) Low 25.1-36.5 [facility] Comment on above: Result Comment: Para meter 15 days - 4 weeks 1 - 5 months 6 - 11 months 1 - 5 years 6 - 10 years 11 - 17 years PTT Mean: 35.4 (27.6-45.6) Mean: 33.5 (24.8-40.7) Mean: 32.4 (25.1-40.7) Mean: 31.6 (24.0-39.2) Mean: 31.6 (26.9-38.7) Mean: 31.0 (24.6-38.4) Pediatric Reference ranges were obtained from a study by Ganesh Hawkins et al. prepared from 1437 samples obtained at 7 different centers using the same coagulation reagent and instrumentation as [facility]. Currently there are no coagulation studies available worldwide for children to 14 days, and no normal ranges. Heparin therapeutic range (represented by Anti-Factor Xa activity of 0.2 - 0.4 U/mL) corresponds to PTT of 56.6 - 109.0 sec. Performed By: #### 2 038942, 12137877, 0446328, 30106802, 5684532, 95660768, 4823299 ####[facility] [address] [place] [address] INR Coag (PPP) [Relative time] 1.2 {INR} Invalid Interpretation Code [facility] Comment on above: Result Comment: INR results are specifically intended to assess patients stabilized on long-term Anticoagulation therapy suggested INR?s ?Less Intensive Anticoagulation? 2.0 ? 3.0Conventional Range 3.0 ? 4.5 Performed By: #### 2 968477, 38283198, 5037696, 41181681, 7948652, 17534202, 0290849 ####[facility] [address] [place] [address] PT Coag (PPP) [Time] 13.7 second(s) High 9.4-12.5 [facility] Comment on above: Result Comment: 15 d ays - 4 weeks 1 - 5 months 6 -11 months 1 ? 5 years 6 ? 10 years 11 -17 years Mean: 11.2 (9.5 ? 12.6) Mean: 11.0 (9.7 ? 12.8) Mean: 11.0 (9.8 ? 13.0) Mean: 11.3 (9.9 ? 13.4) Mean: 11.7 (10.0 ? 14.6) Mean: 11.8 (10.0 - 14.1) Pediatric Reference ranges were obtained from a study by froy Hung al. prepared from 1437 samples obtained at 7 different centers using the same coagulation reagent and instrumentation as [facility]. Currently there are no coagulation studies available worldwide for children to 14 days, and no normal ranges. Performed By: #### 2 361279, 90301983, 1549455, 57573650, 9828615, 05072630, 4902331 ####[facility] [address] [place] [address] Patient Education - Texton 0 02-24-2023 Patient Education - Text Normal [facility] Potassiumon 02-24-2023 Potassium [Moles/Vol] 3.7 mmol/L Normal 3.5-5.3 [facility] Comment on above: Order Comment: Gold e call me with result. Thanks Performed By: #### 2 836777 ####[facility] [address] [place] [address] Pre-Arrival Noteon Pre-Arrival Note Normal [facility] Progress Note-Physicianon Progress Note-Physician Normal [facility] Comment on above: Result Comment: Elec tronically Signed By: PERLA PRADO, Betyanefo\.br\Date and Time Signed: 02/24/23 09:47 EDT RAD - Preliminary Cat Scan R eporton 02-24-2023 RAD - Preliminary Cat Scan Report [id number] 6#1.00CD:127 Normal [facility] RAD - Preliminary Cat Scan Report [id number] 5#1.00CD:127 Normal [facility] TSH With T4fr Reflexon 02-24 TSH Qn 0.97 m[IU]/L Normal 0.34-5.60 [facility] Comment on above: Performed By: #### 1 3202684, 00392485, 5617029, 5917066, 4537346 ####[facility] [address] [place] [address] Troponinon 02-24-2023 Troponin I.cardiac [Mass/Vol] 7.40 pg/mL Low 10.10-27.10 [facility] Comment on above: Result Comment: The 95% CI (Confidence Interval) PPV (Positive Predictive Value) for myocardial infarction in females is 38 pg/mL, in males 51 pg/mL. The results should be used in conjunction with clinical conditions of myocardial infarction.(Buxfer High Sensitivity Troponin I Instructions For Use, [employer], June 2018) Performed By: #### 1 7997010, 00431531, 3787369, 0091346, 0058588 ####[facility] [address] [place] [address] Troponin 0 Hr.on 02-24-2023 Troponin I.cardiac [Mass/Vol] 8.00 pg/mL Low 10.10-27.10 [facility] Comment on above: Result Comment: The 95% CI (Confidence Interval) PPV (Positive Predictive Value) for myocardial infarction in females is 38 pg/mL, in males 51 pg/mL. The results should be used in conjunction with clinical conditions of myocardial infarction.(Access High Sensitivity Troponin I Instructions For Use, [employer], June 2018) Performed By: #### 2 808286, 36790867, 7882291, 67347178, 8985374, 43956956, 3690424 ####[facility] [address] [place] [address] Troponin 3 Hr.on 02-24-2023 Troponin I.cardiac [Mass/Vol] 6.70 pg/mL Low 10.10-27.10 [facility] Comment on above: Result Comment: The 95% CI (Confidence Interval) PPV (Positive Predictive Value) for myocardial infarction in females is 38 pg/mL, in males 51 pg/mL. The results should be used in conjunction with clinical conditions of myocardial infarction.(Access High Sensitivity Troponin I Instructions For Use, [employer], June 2018) Performed By: #### 1 4293484 ####[address] [address] UA With Cult Reflexon 2022 Bacteria LM Ql (Urine sed) TRACE Normal Trace [facility] Comment on above: Performed By: #### 1 6273204 ####[address] [address] Bilirubin Ql (U) Negative Normal Negative [facility] Comment on above: Performed By: #### 1 0564692 ####[address] [address] Clarity (U) SL CLOUDY Abnormal Clear [facility] Comment on above: Performed By: #### 1 4719324 ####[address] [address] Color (U) YELLOW Normal Yellow [facility] Comment on above: Performed By: #### 1 2899854 ####[facility] [address] [place] [address] Crystals LM Ql (Urine sed) Present Normal [facility] Comment on above: Performed By: #### 1 2942587 ####[address] [address] Epithelial cells.squamous LM.HPF (Urine sed) [#/Area] /[HPF] Normal 0-2 [facility] Comment on above: Performed By: #### 1 6564781 ####[facility] [address] [place] [address] Glucose Test strip (U) [Mass/Vol] Negative Normal Negative [facility] Comment on above: Performed By: #### 1 4568458 ####[address] [address] Hemoglobin Ql (U) 3+ Abnormal Negative [facility] Comment on above: Performed By: #### 1 8435422 ####[address] [address] Ketones (U) [Mass/Vol] TRACE Abnormal Negative [facility] Comment on above: Performed By: #### 1 6424225 ####[address] [address] [place].plasma/[place] .RBC (Bld) [Mass ratio] 21-30 Abnormal 0-3 [facility] Comment on above: Performed By: #### 1 0009164 ####[address] [address] Mucus Ql (Urine sed) TRACE Normal [facility] Comment on above: Performed By: #### 1 4108664 ####[address] [address] Nitrite Ql (U) Negative Normal Negative [facility] Comment on above: Performed By: #### 1 6842170 ####[address] [address] pH (U) 6.0 [pH] Invalid Interpretation Code 5.0-9.0 [facility] Comment on above: Performed By: #### 1 5330801 ####[address] [address] Protein (U) [Mass/Vol] 1+ Abnormal Negative [facility] Comment on above: Performed By: #### 1 2890938 ####[address] [address] Specific gravity (U) [Rel density] 1.020 Invalid Interpretation Code 1.005-1.030 [facility] Comment on above: Performed By: #### 1 9638539 ####[facility] [address] [place] [address] Type of Urine collection method Clean Catch Normal [facility] Comment on above: Performed By: #### 1 5065966 ####[facility] [address] [place] [address] Urobilinogen Qn (U) 0.2 {John'U}/dL Normal 0.0-1.0 [facility] Comment on above: Performed By: #### 1 9826516 ####[facility] [address] [place] [address] WBC Auto Ql (U) TRACE Abnormal Negative [facility] Comment on above: Performed By: #### 1 4867199 ####[facility] [address] [place] [address] WBC casts LM.LPF (Urine sed) [#/Area] 4-10 Normal [facility] Comment on above: Performed By: #### 1 0338671 ####[facility] [address] [place] [address] WBC LM.HPF (Urine sed) [#/Area] 0-5 Normal 0-5 [facility] Comment on above: Performed By: #### 1 1167799 ####[facility] [address] [place] [address] URINALYSISOrdered By: Dave Jenkins on 02-24-2023 Bacteria LM Ql (Urine sed) Trace /HPF Normal Trace/HPF [facility] UA Auto SS Bilirubin Ql (U) Negative (02/24/23 2:06 AM) Normal Negative [facility] UA Auto SS Clarity (U) Slightly Cloudy *ABN* (02/24/23 2:06 AM) Invalid Interpretation Code Clear [facility] UA Auto SS Color (U) Yellow (02/24/23 2:06 AM) Normal Yellow [facility] UA Auto SS Crystals LM Ql (Urine sed) Present (02/24/23 2:06 AM) Normal [facility] UA Auto SS Epithelial cells.squamous LM.HPF (Urine sed) [#/Area] /[HPF] Normal 0-2/HPF [facility] UA Aut o SS Glucose Test strip (U) [Mass/Vol] Negative (02/24/23 2:06 AM) Normal Negative [facility] UA Auto SS Hemoglobin Ql (U) 3+ *ABN* (02/24/23 2:06 AM) Invalid Interpretation Code Negative [facility] UA Auto SS Ketones (U) [Mass/Vol] Trace *ABN* (02/24/23 2:06 AM) Invalid Interpretation Code Negative [facility] UA Auto SS [place].plasma/[place] .RBC (Bld) [Mass ratio] 21-30 /HPF Invalid Interpretation Code 0-3/HPF [facility] UA Auto SS Mucus Ql (Urine sed) Trace (02/24/23 2:06 AM) Normal [facility] UA Auto SS Nitrite Ql (U) Negative (02/24/23 2:06 AM) Normal Negative [facility] UA Auto SS pH (U) 6.0 *NA* (02/24/23 2:06 AM) Invalid Interpretation Code 5.0 - 9.0 [facility]A Auto SS Protein (U) [Mass/Vol] 1+ *ABN* (02/24/23 2:06 AM) Invalid Interpretation Code Negative [facility] UA Auto SS Specific gravity (U) [Rel density] 1.020 *NA* (02/24/23 2:06 AM) Invalid Interpretation Code 1.005 - 1.030 [facility] UA Auto SS UA Spec Desc Clean Catch (02/24/23 2:06 AM) Normal [facility] UA Auto SS Urobilinogen Qn (U) 0.5669017 {John'U}/dL Normal 0.0 - 1.0 EU/dL [facility] UA Auto SS WBC Auto Ql (U) Trace *ABN* (02/24/23 2:06 AM) Invalid Interpretation Code Negative [facility] UA Auto SS WBC casts LM.LPF (Urine sed) [#/Area] 4-10 (02/24/23 2:06 AM) Normal [facility] UA Auto SS WBC LM.HPF (Urine sed) [#/Area] 0-5 /HPF Normal 0-5/HPF [facility] UA Auto SS XR Chest Single Viewon 02-24 XR Chest Single View Normal [facility] XR Spine Lumbosacral 2 or 3 Viewson 02-24-2023 XR Spine Lumbosacral 2 or 3 Views Normal [facility] eGFRon 02-24-2023 GFR/1.73 sq M.predicted among blacks MDRD (S/P/Bld) [Vol rate/Area] 55 mL/min/1.73 m2 Low >=59 [facility] Comment on above: Order Comment: Order added by Discern Expert. Result Comment: eGFR is race adjusted. AA=. Performed By: #### 1 8258005, 29339814, 1051946, 4993753, 6664061 ####[facility] [address] [place] [address] GFR/1.73 sq M.predicted among non-blacks MDRD (S/P/Bld) [Vol rate/Area] 45 mL/min/1.73 m2 Low >=59 [facility] Comment on above: Order Comment: Order added by Dereje Expert. Result Comment: Rd Project Manager kuldip kidney disease could be indicated at eGFR's of less than 60 mL/min/1.73m2. Kidney failure is indicated at less than 15 mL/min/1.73m2. Performed By: #### 1 7887538, 04086843, 6040698, 6400294, 2320509 ####[facility] [address] [place] [address] GFR/1.73 sq M.predicted among blacks MDRD (S/P/Bld) [Vol rate/Area] 46 mL/min/1.73 m2 Low >=59 [facility] Comment on above: Order Comment: Order added by Discern Expert. Result Comment: eGFR is race adjusted. AA=. Performed By: #### 2 117928, 24312982, 2730708, 86835683, 4535864, 60165572, 6073510 ####[facility] [address] [place] [address] GFR/1.73 sq M.predicted among non-blacks MDRD (S/P/Bld) [Vol rate/Area] 38 mL/min/1.73 m2 Low >=59 [facility] Comment on above: Order Comment: Order added by Discern Expert. Result Comment: Rd Project Manager kuldip kidney disease could be indicated at eGFR's of less than 60 mL/min/1.73m2. Kidney failure is indicated at less than 15 mL/min/1.73m2. Performed By: #### 2 472765, 37421438, 3901905, 15211611, 1398415, 03404021, 4805683 ####[facility] [address] [place] [address] Covid-19 PCR (CVDTB)on 01-17 SARS-CoV-2 (COVID-19) RNA OSVALDO+probe Ql (Unsp spec) Not detected Normal NOT DETECTED [facility] Comment on above: Result Comment: This test is not yet approved or cleared by the [place] FDA. When there are no FDA-approved or cleared tests available, and other criteria are met, FDA can make tests available under an emergency access mechanism called an Emergency Use Authorization (EUA). The EUA for this test is supported by the [place] and Human Service's (HHS's) declaration that circumstances exist to justify the emergency use of in vitro diagnostics for the detection and/or diagnosis of the virus that causes COVID-19. This EUA will remain in effect (meaning this test can be used) for the duration of the COVID-19 declaration justifying emergency of IVDs, unless it is terminated or revoked by FDA (after which the test may no longer be used). When diagnostic testing is negative, the possibility of a false negative should be considered in the context of a patient's recent exposures and the presence of clinical signs and symptoms consistent with SARS-CoV-2. Performed By: #### C VDTB #### [facility] [address] [place], [place] [address] Dr. Win Ardon SYMPTOMATIC COVID-19 ANTIGEN on 02-14-2023 EUA Statement SEE BELOW Normal [facility] Comment on above: Result Comment: This test has not been FDA cleared or approved, but has been authorized by the FDA under an Emergency Use Authorization (EUA) for use by authorized laboratories certified under CLIA that meet the requirements to perform moderate or high complexity testing. This test has been authorized only for the detection of proteins from SARS-CoV-2, not for any other viruses or pathogens. The emergency use of this test is authorized for the duration of the declaration that circumstances exist justifying the authorization of emergency use of in vitro diagnostic tests for detection and/or diagnosis of Covid-19 under section 564(b)(1) of the Act, 21 U.S.C. 360bbb-3(b)(1), unless the declaration is terminated or authorization is revoked sooner. Performed By: #### C VDAGS #### [facility] [address] [place] [address] [address] Win Ardon SARS-CoV-2 (COVID-19) RNA OSVALDO+probe Ql (Unsp spec) Negative Normal NEGATIVE [facility] Comment on above: Performed By: #### C VDAGS #### [facility] [address] [place] [address] Dr. Win Ardon XR KNEE RT 4V or >on 022 XR KNEE RT 4V or > EXAM: XR KNEE RT 4V or > HISTORY: Pain COMPARISON: None. TECHNIQUE: 4 views FINDINGS: No fracture, dislocation, subluxation or osseous lesion. Osteophytes are present off all articular surfaces with a medial compartment predominance. Medial compartment joint space narrowing. No knee effusion. Nondescript soft tissue edema. IMPRESSION: No visualized acute abnormality Electronically authenticated by: MIKAEL GUZMAN Date: 2022-10-05 19:58 Normal [facility] Creatinine (Bld) [Mass/Vol]O rdered By: Ese Tan on 02-18-2022 Creatinine [Mass/Vol] 0.8 mg/dL 0.6-1.3 [facility] Comment on above: ER/ESD physician is notified/shown all ISTAT results.Critical values may be confirmed by laboratory testing ifdeemed necessary by ER attending doctor. ISTAT XRay CREon 02-18-2022 Creatinine [Mass/Vol] 0.8 mg/dL Normal 0.6-1.3 [facility] Comment on above: Result Comment: ER/E SD physician is notified/shown all ISTAT results. Critical values may be confirmed by laboratory testing if deemed necessary by ER attending doctor. Performed By: #### B CNC WOOD LATHE OPERATOR, PTT, CKMB, LIPASE, CK, TROP, CBC, PT, CMP #### [address] ISTAT GFR ( > 60 Normal [facility] Comment on above: Result Comment: GFR estimated reference range: According to KDOQI guidelines, <60 ml/min/1.73m2 is sufficient to diagnose a patient with chronic kidney disease. PERFORMED BY: [place] [address] PATHOLOGIST MEDICAL BILLING ASSISTANT WALDO WANG M.D. Performed By: #### B CNC WOOD LATHE OPERATOR, PTT, CKMB, LIPASE, CK, TROP, CBC, PT, CMP #### [address] ISTAT GFR (Non- Am > 60 Normal [facility] Comment on above: Performed By: #### B CNC WOOD LATHE OPERATOR, PTT, CKMB, LIPASE, CK, TROP, CBC, PT, CMP #### [address] MR abdomen wo/w conon 2021 MR abdomen wo/w con [facility] [place] [address] [place] [address] MRI Report Signed Patient: Yeyo Avila MR#: [id number] : 1955 Acct:[id number] Age/Sex: 66 / F ADM Date: 02/18/22 Loc: Room: Type: [facility] Attending Dr: Ese Tan MD Ordering Provider: Ese Tan MD Date of Service: 02/18/22 MR/MR abdomen wo/w con: C67.9 Copies to: Ese Tan MD MRI OF THE ABDOMEN WITH AND WITHOUT CONTRAST: CLINICAL HISTORY: Renal mass on CT. COMPARISON: CTA abdomen and pelvis 03/19/2021 TECHNIQUE: Multisequence, multiplanar imaging of the abdomen was obtained before and after the use of IV contrast. FINDINGS: Visualized liver appears normal in contour with a Carmela's lobe present. Hepatic steatosis. No intraductal duct dilatation. A few subcentimeter arterial enhancing areas are identified within the liver likely represent vascular shunts. Visualized portal veins appear patent. Gallbladder appears unremarkable. No CBD dilatation is seen. No perinephric divisum. Pancreas enhances homogeneously without evidence of mass or pancreatitis. Visualized spleen appears grossly unremarkable. Visualized Adrenal glands appear unremarkable.. Abdominal aorta appears normal in caliber. No bulky lymphadenopathy or ascites. No pleural effusion. A small nonenhancing cyst is identified involving the superior pole of the left kidney. No enhancing renal mass is seen of either kidney. No hydronephrosis. IVC and renal veins appear patent. MR/MR abdomen wo/w con IMPRESSION: NONENHANCING RENAL CYST SUPERIOR POLE LEFT KIDNEY. NO ENHANCING RENAL MASS IS IDENTIFIED. Impression dictated by: Javi Warren Jr., D.O.02/18/2022 4:02 PM Dictation Location: [place] [address] Transcribed By: [facility] 02/18/22 1602 Dictated By: Javi Warren Jr, DO 02/18/22 1556 Signed By: 02/18/22 1602 Normal [facility] No Panel InformationOrdered By: Ese Tan on 02-18-2022 POC Estimated GFR > 60 [facility] Comment on above: GFR estimated refere nce range: According to KDOQI guidelines, <60 ml/min/1.73m2 is sufficient to diagnose a patient with chronic kidney disease. POC Estimated GFR Non- Amer > 60 [facility] Cardiovascular Lab Reporton 03-22-2021 Cardiovascular Lab Report [facility] Patient Name: Sheila [facility] Yeyo Cooper MR #: [id number] Department of Physician: Radha Carter M.D. Division of Service Date: 03/21/2021 Cardiology Birthdate: 1955 Adult Cardiovascular Room #: [address] [place] [address] Cardiovascular Laboratory Report FINAL IMPRESSIONS: 1. 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 2. Patent stent in the second diagonal branch of the left anterior descending coronary artery with [id number] in-stent restenosis. 3. Otherwise, nonobstructive coronary arteries angiographically. 4. Mildly elevated right-sided heart pressures. 5. Normal pulmonary capillary wedge pressure. 6. Normal cardiac output/cardiac index. 7. Moderate systemic hypertension. RECOMMENDATIONS: 1. Consider alternate etiologies for the patient's shortness of breath, mainly pulmonary and/or obesity related. 2. Aggressive cardiovascular risk factor modification. 3. Optimization of medical management; continue aspirin, high intensity statin therapy, beta-grabiel +/- an angiotensin-converti ng enzyme inhibitor as appropriate. 4. Follow up with Alexia Cline, certified nurse practitioner as scheduled. 5. Follow up with Dr. Robin Ponce as scheduled. PROCEDURES: Ultrasound-guided access to the right common femoral artery and right common femoral vein, right heart catheterization, bilateral selective coronary angiography, placement of a 6-Lithuanian MynxGrip closure device. METHODS: After risks, benefits, and alternatives were explained, written informed consent was obtained. The patient was prepped and draped in the usual sterile fashion over the right groin. Using 1% lidocaine solution, local infiltration anesthesia was achieved. Using a modified Seldinger technique, a micropuncture kit, an ultrasound guidance access to the right common femoral vein and artery was obtained. A 6-Lithuanian x 11 cm sheath were placed in each. Limited femoral angiography was performed via the micropuncture kit prior to upsizing through the 6-Lithuanian sheath in the artery. A Cazares catheter was used for right heart catheterization measuring pressures in the right atrium, right ventricle, pulmonary artery, and pulmonary capillary wedge positions. Oxygen saturations were obtained and cardiac output/cardiac index was calculated using the modified Lcaey principle. The Cazares catheter was removed. Bilateral selective coronary angiography was performed using JL4 and JR4 catheters. After reviewing the images, it was elected to conclude the procedure. All catheters were removed. A 6-Lithuanian MynxGrip closure device was deployed per protocol achieving optimal hemostasis. Overall, the patient tolerated the procedure well. There were no overt complications. She was to be transferred to the holding area in stable condition. FINDINGS: Hemodynamics. AO 146/82 (99). RA 10. RV 33/1, 7. PA 33/4 (24). PCWP 30. TPG 11. Cardiac output 7.08/cardiac index 3.33. AO sat 91%/PA sat 71%. LEFT VENTRICULOGRAPHY: This was not performed. Ejection fraction is normal by noninvasive imaging. CORONARY ARTERIES: Left main coronary artery: This arises from the left coronary cusp. It bifurcates into the left anterior descending and left circumflex coronary arteries and is free of significant stenosis. Left anterior descending coronary artery: It shows evidence of a patent stent in the proximal to midportion of the vessel with 20% to 30% in-stent restenosis. A moderate-sized second diagonal shows a patent stent in the proximal portion with a 40% to 50% proximal in-stent restenosis. The remainder of the left anterior descending shows mild luminal irregularities. Left circumflex coronary artery: This is angiographically nonobstructive. Right coronary artery: This is a dominant vessel giving rise to the posterior descending and posterolateral branches. It is angiographically nonobstructive. Limited femoral angiography shows no significant plaque and anatomy suitable for closure device. INDICATIONS: Exertional shortness of breath, chest pain, and abnormal stress test. Electronically Signed by: Rebeka Pardo M.D. 03/22/2021 02:45 P Rebeka Pardo M.D. Date Dict: 03/21/2021/01:03 P/Rebeka Pardo M.D. Date Trans: 03/22/2021 05:11 A/yoel [id number] cc: Alexia Cline, MSN, ACTIVITIES SPECIALIST-C Department Of Surgery [place] [address] [facility] [address] Robin Ponce M.D. [address] [address] [facility] angio abdomen pelvison CT angio abdomen pelvis [facility] [place] [address] [place] [address] [address] Scan Report Signed Patient: Yeyo Avila MR#: [id number] : 1955 Acct:[id number] Age/Sex: 65 / F ADM Date: 03/19/21 Loc: ER Room: Type: [facility] ER Attending Dr: Ordering Provider: Ismael Santillan DO Date of Service: 03/19/21 CT/CT angio chest: r/o dissection ([id number]) CT/CT angio abdomen pelvis: R/O DISSECTION Copies to: Ismael Santillan, DO CTA chest and CTA abdomen and pelvis 03/19/2021. CLINICAL DATA: Left chest pain. Abdominal pain with nausea and vomiting. Lower extremity weakness and numbness. TECHNIQUE: Intravenous contrast-enhanced CT angiography of the chest and CT angiography of the abdomen and pelvis were performed. Axial, sagittal, coronal, and 3-dimensional reconstructions were created and reviewed. These CT exams were performed using one or more of the following dose reduction techniques: Automated exposure control, adjustment of the mA and/or kV according to patient size, or use of iterative reconstruction technique. COMPARISON: CT abdomen and pelvis 10/26/2018. CHEST FINDINGS: The patient is status post sternotomy. The heart is normal in size. There is coronary calcification. The thoracic aorta appears unremarkable. No pulmonary embolus is identified on the right or left. There is incomplete imaging of a hypodense nodule in the left lobe of the thyroid. There is no mediastinal or hilar lymphadenopathy. There is no hiatal hernia. The central airways appear unremarkable. No pulmonary consolidation or collapse is identified. No pleural effusion is seen. No chest wall abnormality is noted. ABDOMEN AND PELVIS FINDINGS: Atherosclerotic changes are noted. The abdominal aorta appears otherwise unremarkable. The liver, spleen, pancreas, right kidney, and both adrenal glands appear unremarkable. There is a small cyst arising from the upper pole of the left kidney. The urinary bladder appears unremarkable. The uterus is surgically absent. No acute intestinal abnormality is identified. The appendix is surgically absent. No free intra-abdominal air or ascites is seen. No abdominal wall abnormality is noted. CT/CT angio chest IMPRESSION: 1. Atherosclerotic changes. Otherwise unremarkable thoracoabdominal aorta. 2. Left thyroid lobe nodule. 3. Small left renal cyst. Impression dictated by: Gavin Martinez Jr., M.D.03/20/2021 8:52 AM Dictation Location: [place] [address] Transcribed By: [facility] 03/20/2152 Dictated By: Gavin Martinez Jr, MD 03/20/21 0841 Signed By: 03/20/21 0852 Normal [facility] Dipstick and Microscopicon 0 03-20-2021 Appearance (U) Clear Normal Clear [facility] Comment on above: Order Comment: Name Collection Type:: Clean-Voided Midstream Performed By: #### A DDONUAPLUS #### [facility] [address] [place] [address] [place] Bacteria,Urine None Seen Normal None Seen [facility] Comment on above: Order Comment: Name Collection Type:: Clean-Voided Midstream Performed By: #### A DDONUAPLUS #### [facility] [address] [place] [address] [place] Bilirubin,Urine Negative Normal Negative [facility] Comment on above: Order Comment: Name Collection Type:: Clean-Voided Midstream Performed By: #### A DDONUAPLUS #### [place] [address] [place] Color (U) Yellow Normal Yellow [facility] Comment on above: Order Comment: Name Collection Type:: Clean-Voided Midstream Performed By: #### A DDONUAPLUS #### [facility] [address] [place] [address] [place] Glucose Ql (U) 500 mg/dL High Normal [facility] Comment on above: Order Comment: Name Collection Type:: Clean-Voided Midstream Performed By: #### A DDONUAPLUS #### [place] [address] [place] Hyaline Casts,Urine 0-8 Normal 0-8 [facility] Comment on above: Order Comment: Name Collection Type:: Clean-Voided Midstream Result Comment: PERF ORMED BY: [place] [address] PATHOLOGIST MEDICAL BILLING ASSISTANT WALDO WANG M.D. Performed By: #### A DDONUAPLUS #### [facility] [address] [place] [address] [place] Ketones Ql (U) Trace High Negative [facility] Comment on above: Order Comment: Name Collection Type:: Clean-Voided Midstream Performed By: #### A DDONUAPLUS #### [facility] [address] [place] [address] [place] Leukocyte esterase Test strip Ql (U) Negative Normal Negative [facility] Comment on above: Order Comment: Name Collection Type:: Clean-Voided Midstream Performed By: #### A DDONUAPLUS #### [facility] [address] [place] [address] [place] Nitrite,Urine Negative Normal Negative [facility] Comment on above: Order Comment: Name Collection Type:: Clean-Voided Midstream Performed By: #### A DDONUAPLUS #### [facility] [address] [place] [address] [place] Occult Blood,Urine Negative Normal Negative [facility] Comment on above: Order Comment: Name Collection Type:: Clean-Voided Midstream Performed By: #### A DDONUAPLUS #### [address] pH (U) 6.0 [pH] Normal 5.0-9.0 [facility] Comment on above: Order Comment: Name Collection Type:: Clean-Voided Midstream Performed By: #### A DDONUAPLUS #### [place] [address] [place] Protein,Urine Trace High Negative [facility] Comment on above: Order Comment: Name Collection Type:: Clean-Voided Midstream Performed By: #### A DDONUAPLUS #### [place] [address] [place] RBC,Urine 1-2 Normal 0-4 [facility] Comment on above: Order Comment: Name Collection Type:: Clean-Voided Midstream Performed By: #### A DDONUAPLUS #### [facility] [address] [place] [address] [place] Renal Epithelial Cells,Urine None Seen Normal 0-1 [facility] Comment on above: Order Comment: Name Collection Type:: Clean-Voided Midstream Performed By: #### A DDONUAPLUS #### [facility] [address] [place] [address] [place] Specificy [place],Urine > 1.050 High 1.001-1.030 [facility] Comment on above: Order Comment: Name Collection Type:: Clean-Voided Midstream Performed By: #### A DDONUAPLUS #### [place] [id number] [place] Squamous Epithelial Cell,Urine 3-4 High 0-2 [facility] Comment on above: Order Comment: Name Collection Type:: Clean-Voided Midstream Performed By: #### A DDONUAPLUS #### [facility] [address] [place] [address] Urobilinogen,Urine Normal Normal Normal [facility] Comment on above: Order Comment: Name Collection Type:: Clean-Voided Midstream Performed By: #### A DDONUAPLUS #### [facility] [address] [place] [address] WBC,Urine 1-2 Normal 0-4 [facility] Comment on above: Order Comment: Name Collection Type:: Clean-Voided Midstream Performed By: #### A DDONUAPLUS #### [address] ECG 12 lead ECGon 03-20-2021 ECG 12 lead ECG [facility] [place] [address] [place] [address] Electrocardiograph Report Signed Patient: Yeyo Avila MR#: [id number] : 1955 Acct:[id number] Age/Sex: 65 / F ADM Date: 03/19/21 Loc: ER Room: Type: [facility] ER Attending Dr: Ordering Provider: Ismael Santillan DO Date of Service: 03/19/21 ECG/ECG 12 lead ECG: Chest Pain Copies to: Test Reason : Blood Pressure : 139/071 mmHG Vent. Rate : 073 BPM Atrial Rate : 073 BPM P-R Int : 200 ms QRS Dur : 104 ms QT Int : 436 ms P-R-T Axes : 049 068 078 degrees QTc Int : 480 ms Normal sinus rhythm Nonspecific ST abnormality Prolonged QT Abnormal ECG When compared with ECG of 19-MAR-2021 21:13, (Unconfirmed) No significant change was found Confirmed by TIMOTEO COOPER MD ([id number]) on 03/21/2021 9:05:43 AM Referred By: Electronically Signed By:TIMOTEO COOPER MD Transcribed By: MUS Dictated By: Timoteo Cooper MD 03/19/212224 Signed By: 03/21/21 0905 [facility] XR chest 2V*on 03-20-2021 XR chest 2V* [facility] [place] [address] [place], [place] [id number] XRay Report Signed Patient: Yeyo Avila MR#: [id number] : 1955 Acct:[id number] Age/Sex: 65 / F ADM Date: 03/19/21 Loc: ER Room: Type: [facility] ER Attending Dr: Ordering Provider: Ismael Santillan DO Date of Service: 03/19/21 XR/XR chest 2V*: Chest Pain Copies to: Ismael Santillan DO Chest 03/19/2021. CLINICAL DATA: Chest pain. FINDINGS: 2 views of the chest were obtained and are compared with a prior study 10/24/2018. The patient is status post sternotomy. The cardiac silhouette is normal in size. The pulmonary vasculature is within normal limits. There are mild chronic findings in both lungs. No pulmonary consolidation or collapse is identified. No pneumothorax or pleural effusion is seen. XR/XR chest 2V* IMPRESSION: Mild chronic findings. No acute cardiopulmonary disease. Impression dictated by: Gavin Martinez Jr., M.D.03/20/2021 8:53 AM Dictation Location: [place] [address] Transcribed By: [facility] 03/20/21 0853 Dictated By: Gavin Martinez Jr, MD 03/20/21 0852 Signed By: 03/20/21 0853 [facility] B-Type Natriuretic Peptideon 03-19-2021 Natriuretic peptide B (Bld) [Mass/Vol] 30.0 pg/mL Normal 5-100 [facility] Comment on above: Result Comment: PERF ORMED BY: [place] [address] PATHOLOGIST MEDICAL BILLING ASSISTANT WALDO WANG M.D. Performed By: #### B CNC WOOD LATHE OPERATOR, PTT, CKMB, LIPASE, CK, TROP, CBC, PT, CMP #### [place] [id number] [facility] Complete Blood Count Auto Di ffon 03-19-2021 Basophils (Bld) [#/Vol] 0.2 10*3/uL Normal 0.0-0.2 [facility] Comment on above: Result Comment: PERF ORMED BY: [place] [address] PATHOLOGIST MEDICAL BILLING ASSISTANT WALDO WANG M.D. Performed By: #### B CNC WOOD LATHE OPERATOR, PTT, CKMB, LIPASE, CK, TROP, CBC, PT, CMP #### [address] Basophils/100 WBC (Bld) 0.9 % Normal . [facility] Comment on above: Performed By: #### B CNC WOOD LATHE OPERATOR, PTT, CKMB, LIPASE, CK, TROP, CBC, PT, CMP #### [address] Eosinophils (Bld) [#/Vol] 0.2 10*3/uL Normal 0.0-0.45 [facility] Comment on above: Performed By: #### B CNC WOOD LATHE OPERATOR, PTT, CKMB, LIPASE, CK, TROP, CBC, PT, CMP #### [address] Eosinophils/100 WBC (Bld) 1.1 % Normal . [facility] Comment on above: Performed By: #### B CNC WOOD LATHE OPERATOR, PTT, CKMB, LIPASE, CK, TROP, CBC, PT, CMP #### [address] Erythrocyte distribution width (RBC) [Ratio] 13.7 % Normal 11.9-15.3 [facility] Comment on above: Performed By: #### B CNC WOOD LATHE OPERATOR, PTT, CKMB, LIPASE, CK, TROP, CBC, PT, CMP #### [address] Hematocrit (Bld) [Volume fraction] 43.7 % Normal 34.0-46.4 [facility] Comment on above: Performed By: #### B CNC WOOD LATHE OPERATOR, PTT, CKMB, LIPASE, CK, TROP, CBC, PT, CMP #### [place] [address] [place] Hemoglobin (Bld) [Mass/Vol] 14.8 g/dL Normal 11.8-15.4 [facility] Comment on above: Performed By: #### B CNC WOOD LATHE OPERATOR, PTT, CKMB, LIPASE, CK, TROP, CBC, PT, CMP #### [address] Lymphocytes (Bld) [#/Vol] 4.2 10*3/uL Normal 1.00-4.8 [facility] Comment on above: Performed By: #### B CNC WOOD LATHE OPERATOR, PTT, CKMB, LIPASE, CK, TROP, CBC, PT, CMP #### [address] Lymphocytes/100 WBC (Bld) 23.0 % Normal . [facility] Comment on above: Performed By: #### B CNC WOOD LATHE OPERATOR, PTT, CKMB, LIPASE, CK, TROP, CBC, PT, CMP #### [address] MCH (RBC) [Entitic mass] 29.8 pg Normal 24.7-34.3 [facility] Comment on above: Performed By: #### B CNC WOOD LATHE OPERATOR, PTT, CKMB, LIPASE, CK, TROP, CBC, PT, CMP #### [address] MCV (RBC) [Entitic vol] 87.7 fL Normal 80-100 [facility] Comment on above: Performed By: #### B CNC WOOD LATHE OPERATOR, PTT, CKMB, LIPASE, CK, TROP, CBC, PT, CMP #### [address] Mean Corpuscular HGB Conc 33.9 g/dL Normal 32.0-35.0 [facility] Comment on above: Performed By: #### B CNC WOOD LATHE OPERATOR, PTT, CKMB, LIPASE, CK, TROP, CBC, PT, CMP #### [address] Monocytes (Bld) [#/Vol] 1.1 10*3/uL High 0.0-0.8 [facility] Comment on above: Performed By: #### B CNC WOOD LATHE OPERATOR, PTT, CKMB, LIPASE, CK, TROP, CBC, PT, CMP #### [address] Monocytes/100 WBC (Bld) 6.1 % Normal . [facility] Comment on above: Performed By: #### B CNC WOOD LATHE OPERATOR, PTT, CKMB, LIPASE, CK, TROP, CBC, PT, CMP #### [address] Neutrophils (Bld) [#/Vol] 12.4 10*3/uL High 1.8-7.7 [facility] Comment on above: Performed By: #### B CNC WOOD LATHE OPERATOR, PTT, CKMB, LIPASE, CK, TROP, CBC, PT, CMP #### [address] Neutrophils/100 WBC (Bld) 68.9 % Normal . [facility] Comment on above: Performed By: #### B CNC WOOD LATHE OPERATOR, PTT, CKMB, LIPASE, CK, TROP, CBC, PT, CMP #### [address] Nucleated RBC/100 WBC (Bld) [Ratio] 0.2 % Normal 0-0.5 [facility] Comment on above: Performed By: #### B CNC WOOD LATHE OPERATOR, PTT, CKMB, LIPASE, CK, TROP, CBC, PT, CMP #### [address] Platelet mean volume (Bld) [Entitic vol] 9.2 fL Normal 6.3-10.7 [facility] Comment on above: Performed By: #### B CNC WOOD LATHE OPERATOR, PTT, CKMB, LIPASE, CK, TROP, CBC, PT, CMP #### [place] [address] [place] Platelets (Bld) [#/Vol] 340 10*3/uL Normal 150-450 [facility] Comment on above: Performed By: #### B CNC WOOD LATHE OPERATOR, PTT, CKMB, LIPASE, CK, TROP, CBC, PT, CMP #### [address] RBC (Bld) [#/Vol] 4.98 10*6/uL Normal 3.60-5.00 [facility] Comment on above: Performed By: #### B CNC WOOD LATHE OPERATOR, PTT, CKMB, LIPASE, CK, TROP, CBC, PT, CMP #### [address] WBC (Bld) [#/Vol] 18.0 10*3/uL High 4.5-11.0 [facility] Comment on above: Performed By: #### B CNC WOOD LATHE OPERATOR, PTT, CKMB, LIPASE, CK, TROP, CBC, PT, CMP #### [address] Comprehensive Metabolic Pane talia 03-19-2021 Albumin [Mass/Vol] 4.7 g/dL Normal 3.2-5.5 [facility] Comment on above: Performed By: #### B CNC WOOD LATHE OPERATOR, PTT, CKMB, LIPASE, CK, TROP, CBC, PT, CMP #### [address] Albumin/Globulin [Mass ratio] 1.4 {ratio} Normal [facility] Comment on above: Performed By: #### B CNC WOOD LATHE OPERATOR, PTT, CKMB, LIPASE, CK, TROP, CBC, PT, CMP #### [address] ALP [Catalytic activity/Vol] 83 U/L Normal 32-92 [facility] Comment on above: Performed By: #### B CNC WOOD LATHE OPERATOR, PTT, CKMB, LIPASE, CK, TROP, CBC, PT, CMP #### [address] ALT [Catalytic activity/Vol] 15 U/L Normal 10-60 [facility] Comment on above: Performed By: #### B CNC WOOD LATHE OPERATOR, PTT, CKMB, LIPASE, CK, TROP, CBC, PT, CMP #### [address] AST [Catalytic activity/Vol] 15 U/L Normal 10-42 [facility] Comment on above: Performed By: #### B CNC WOOD LATHE OPERATOR, PTT, CKMB, LIPASE, CK, TROP, CBC, PT, CMP #### [facility] [address] Bilirubin [Mass/Vol] 1.6 mg/dL High 0.3-1.2 [facility] Comment on above: Result Comment: Samp les from patients who have taken Naproxen have shown spurious elevation in Total Bilirubin levels. A metabolite of Naproxen, O-desmethylnaproxen, has been shown to interfere with the Jendrassik-Grof method for measuring Total Bilirubin. Performed By: #### B CNC WOOD LATHE OPERATOR, PTT, CKMB, LIPASE, CK, TROP, CBC, PT, CMP #### [facility] [address] Calcium [Mass/Vol] 10.1 mg/dL Normal 8.2-10.2 [facility] Comment on above: Performed By: #### B CNC WOOD LATHE OPERATOR, PTT, CKMB, LIPASE, CK, TROP, CBC, PT, CMP #### [facility] [address] Chloride [Moles/Vol] 99 mmol/L Normal 95-114 [facility] Comment on above: Performed By: #### B CNC WOOD LATHE OPERATOR, PTT, CKMB, LIPASE, CK, TROP, CBC, PT, CMP #### [facility] [address] CO2 [Moles/Vol] 23.1 mmol/L Normal 22.0-30.0 [facility] Comment on above: Performed By: #### B CNC WOOD LATHE OPERATOR, PTT, CKMB, LIPASE, CK, TROP, CBC, PT, CMP #### [facility] [address] Creatinine [Mass/Vol] 1.07 mg/dL High 0.44-1.03 [facility] Comment on above: Performed By: #### B CNC WOOD LATHE OPERATOR, PTT, CKMB, LIPASE, CK, TROP, CBC, PT, CMP #### [facility] [address] Creatinine Clr Calc Pharmacy 64.26 [facility] Comment on above: Performed By: #### B CNC WOOD LATHE OPERATOR, PTT, CKMB, LIPASE, CK, TROP, CBC, PT, CMP #### [facility] [address] Estimated GFR ( [place] > 60 [facility] Comment on above: Result Comment: GFR estimated reference range: According to KDOQI guidelines, <60 ml/min/1.73m2 is sufficient to diagnose a patient with chronic kidney disease. Performed By: #### B CNC WOOD LATHE OPERATOR, PTT, CKMB, LIPASE, CK, TROP, CBC, PT, CMP #### [facility] [address] Estimated GFR (Non- Am 52 [facility] Comment on above: Performed By: #### B CNC WOOD LATHE OPERATOR, PTT, CKMB, LIPASE, CK, TROP, CBC, PT, CMP #### [facility] [address] Globulin (S) [Mass/Vol] 3.3 g/dL [facility] Comment on above: Performed By: #### B CNC WOOD LATHE OPERATOR, PTT, CKMB, LIPASE, CK, TROP, CBC, PT, CMP #### [facility] [address] Glucose [Mass/Vol] 264 mg/dL High 70-100 [facility] [facility] Comment on above: Result Comment: [place] Glucose Reference Range is dependent on time and content of last meal. Glucose of more than 200 mg/dL in a nonstressed, ambulatory subject supports the diagnosis of Diabetes Mellitus. ADA recommended reference range Performed By: #### B CNC WOOD LATHE OPERATOR, PTT, CKMB, LIPASE, CK, TROP, CBC, PT, CMP #### [facility] [address] Potassium [Moles/Vol] 3.8 mmol/L Normal 3.5-5.1 [facility] Comment on above: Performed By: #### B CNC WOOD LATHE OPERATOR, PTT, CKMB, LIPASE, CK, TROP, CBC, PT, CMP #### [facility] [address] Protein [Mass/Vol] 8.0 g/dL High 6.1-7.9 [facility] Comment on above: Performed By: #### B CNC WOOD LATHE OPERATOR, PTT, CKMB, LIPASE, CK, TROP, CBC, PT, CMP #### [facility] [address] Sodium [Moles/Vol] 137 mmol/L Normal 136-146 [facility] Comment on above: Performed By: #### B CNC WOOD LATHE OPERATOR, PTT, CKMB, LIPASE, CK, TROP, CBC, PT, CMP #### [facility] [address] Urea nitrogen [Mass/Vol] 29 mg/dL High 9-23 [facility] Comment on above: Performed By: #### B CNC WOOD LATHE OPERATOR, PTT, CKMB, LIPASE, CK, TROP, CBC, PT, CMP #### [address] Creatine Kinaseon 03-19-2021 CK [Catalytic activity/Vol] 42 U/L Normal 22-269 [facility] Comment on above: Performed By: #### B CNC WOOD LATHE OPERATOR, PTT, CKMB, LIPASE, CK, TROP, CBC, PT, CMP #### [facility] [address] Creatinine Kinase MBon 03-19 CK.MB [Mass/Vol] 1.3 ng/mL Normal 0.6-6.3 [facility] Comment on above: Performed By: #### B CNC WOOD LATHE OPERATOR, PTT, CKMB, LIPASE, CK, TROP, CBC, PT, CMP #### [address] CKMB Relative Index 3.0 % High 0.00-2.50 [facility] Comment on above: Performed By: #### B CNC WOOD LATHE OPERATOR, PTT, CKMB, LIPASE, CK, TROP, CBC, PT, CMP #### [address] ECG 12 lead ECGon 03-19-2021 ECG 12 lead ECG [facility] [address] [place] [address] Electrocardiograph Report Signed Patient: Yeyo Avila MR#: [id number] : 1955 Acct:[id number] Age/Sex: 65 / F ADM Date: 03/19/21 Loc: ER Room: Type: [facility] ER Attending Dr: Ordering Provider: Ismael Santillan DO Date of Service: 03/19/21 ECG/ECG 12 lead ECG: Chest Pain Copies to: Test Reason : Blood Pressure : 156/082 mmHG Vent. Rate : 075 BPM Atrial Rate : 075 BPM P-R Int : 190 ms QRS Dur : 100 ms QT Int : 430 ms P-R-T Axes : 060 078 078 degrees QTc Int : 480 ms Normal sinus rhythm Nonspecific ST abnormality Prolonged QT Abnormal ECG When compared with ECG of 24-OCT-2018 21:25, No significant change was found Confirmed by TIMOTEO COOPER MD ([id number]) on 03/21/2021 9:05:27 AM Referred By: Electronically Signed By:TIMOTEO COOPER MD Transcribed By: MUS Dictated By: Timoteo Cooper MD 03/19/212112 Signed By: 03/21/21 0905 Normal [facility] Lipaseon 03-19-2021 Lipase [Catalytic activity/Vol] 21.0 U/L Low 22-51 [facility] Comment on above: Result Comment: PERF ORMED BY: [place] [address] PATHOLOGIST MEDICAL BILLING ASSISTANT WALDO WANG M.D. Performed By: #### B CNC WOOD LATHE OPERATOR, PTT, CKMB, LIPASE, CK, TROP, CBC, PT, CMP #### [address] Partial Thromboplastin Timeo n 03-19-2021 aPTT Coag (Bld) [Time] 26.1 s Normal 25.1-36.5 [facility] Comment on above: Result Comment: PERF ORMED BY: [place] [address] PATHOLOGIST MEDICAL BILLING ASSISTANT WALDO WANG M.D. Performed By: #### B CNC WOOD LATHE OPERATOR, PTT, CKMB, LIPASE, CK, TROP, CBC, PT, CMP #### [place] [id number] [place] Prothrombin Time INRon 03-19 INR Coag (PPP) [Relative time] 1.2 {INR} Normal [facility] Comment on above: Result Comment: INR Therapeutic Range A) Pre- and Peroperative OAT started two weeks before surgery. NOT HIP SURGERY: 1.5 - 2.5 HIP SURGERY: 2 - 3 B) Primary and secondary prevention of venous THROMBOSIS: 2 - 3 C) Active venous thrombosis, pulmonary embolism and prevention of recurrent venous thrombosis: 2 - 3 D) Prevention of arterial thromboembolism including patients with mechanical heart valves: 3 - 4.5 Performed By: #### B CNC WOOD LATHE OPERATOR, PTT, CKMB, LIPASE, CK, TROP, CBC, PT, CMP #### [facility] [address] PT Coag (PPP) [Time] 13.6 s High 9.0-12.9 [facility] Comment on above: Performed By: #### B CNC WOOD LATHE OPERATOR, PTT, CKMB, LIPASE, CK, TROP, CBC, PT, CMP #### [facility] [address] Troponin I(TnI)on 03-19-2021 Troponin I.cardiac [Mass/Vol] ng/mL Normal 0-0.02 [facility] Comment on above: Result Comment: EBONY SD Cut off value > or equal to 0.03 ng/mL in conjunction with clinical conditions of myocardial infarction. (www.escardio.org/guidelines) PERFORMED BY: [place] [address] PATHOLOGIST MEDICAL BILLING ASSISTANT WALDO WANG M.D. Performed By: #### B CNC WOOD LATHE OPERATOR, PTT, CKMB, LIPASE, CK, TROP, CBC, PT, CMP #### [facility] [address] Basic Metab w/rfx MGon 09-01 (cont.) Normal [facility] Comment on above: Result Comment: Aver age GFR for 60-69 years old: 85 mL/min/1.73sq m Chronic Kidney Disease: <60 mL/min/1.73sq m Kidney failure: <15 mL/min/1.73sq m eGFR calculated using average adult body mass. Additional eGFR calculator available at: http://www.[employer].co.[employer]/multiple_crcl_2012.htm Performed By: #### E RTPF #### [address] [address] Ota: Dheeraj Garcia MD Anion gap [Moles/Vol] 13 mmol/L Normal 9-17 [facility] Comment on above: Performed By: #### E RTPF #### [address] [address] Ota: Dheeraj Garcia MD Calcium [Mass/Vol] 8.8 mg/dL Normal 8.6-10.4 [facility] Comment on above: Performed By: #### E RTPF #### [address] [address] Ota: Dheeraj Garcia MD Chloride [Moles/Vol] 106 mmol/L Normal 98-107 [facility] Comment on above: Performed By: #### E RTPF #### [address] [address] Ota: Dheeraj Garcia MD CO2 [Moles/Vol] 21 mmol/L Normal 20-31 [facility] Comment on above: Performed By: #### E RTPF #### [address] [address] Ota: Dheeraj Garcia MD Creatinine [Mass/Vol] 0.53 mg/dL Normal 0.50-0.90 [facility] Comment on above: Performed By: #### E RTPF #### [address] [address] Ota: Dheeraj Garcia MD GFR, Amer >60 Normal >60 [facility] Comment on above: Performed By: #### E RTPF #### [address] [address] Ota: Dheeraj Garcia MD GFR,non Amer >60 Normal >60 [facility] Comment on above: Performed By: #### E RTPF #### [address] [address] Ota: Dheeraj Garcia MD Glucose [Mass/Vol] 169 mg/dL High 70-99 [facility] Comment on above: Performed By: #### E RTPF #### [address] [address] Ota: Dheeraj Garcia MD Potassium [Moles/Vol] 4.0 mmol/L Normal 3.7-5.3 [facility] Comment on above: Performed By: #### E RTPF #### [address] [address] Ota: Dheeraj Garcia MD Sodium [Moles/Vol] 140 mmol/L Normal 135-144 [facility] Comment on above: Performed By: #### E RTPF #### [address] [address] Ota: Dheeraj Garcia MD Urea nitrogen [Mass/Vol] 10 mg/dL Normal 8-23 [facility] Comment on above: Performed By: #### E RTPF #### [address] [address] Ota: Dheeraj Garcia MD BUN/CRE Ratio NOT REPORTED Normal 9-20 [facility] Comment on above: Performed By: #### E RTPF #### [address] [address] Ota: Dheeraj Garcia MD Staging: NOT REPORTED Normal [facility] Comment on above: Performed By: #### E RTPF #### [facility] [address] [place] [address] Ota: Dheeraj Garcia MD Basic Metabolic Panel w/ Ref martín to MGon 09-01-2020 Anion gap [Moles/Vol] 13 mmol/L 9 - 17 mmol/L [place] Bun/Cre Ratio NOT REPORTED [place] Calcium [Mass/Vol] 8.8 mg/dL 8.6 - 10. 4 mg/dL [place] Chloride [Moles/Vol] 106 mmol/L 98 - 10 7 mmol/L [place] CO2 [Moles/Vol] 21 mmol/L 20 - 31 mmol/L [place] Creatinine [Mass/Vol] 0.53 mg/dL 0.5 - 0.9 mg/dL [place] GFR >60 >60 mL/min [place] GFR Non- >60 >60 mL/min [place] GFR/1.73 sq M predicted among non-blacks MDRD (S/P/Bld) [Vol rate/Area] [place] Comment on above: Average GFR for 60-6 9 years old: 85 mL/min/1.73sq m Chronic Kidney Disease: <60 mL/min/1.73sq m Kidney failure: <15 mL/min/1.73sq m eGFR calculated using average adult body mass. Additional eGFR calculator available at: http://www.[employer].co.[employer]/multiple_crcl_2012.htm GFR/1.73 sq M predicted among non-blacks MDRD (S/P/Bld) [Vol rate/Area] NOT REPORTED [place] Glucose [Mass/Vol] 169 mg/dL High 70 - 99 mg/dL [place] Interpretation and review of laboratory results Abnormal [place] Potassium [Moles/Vol] 4.0 mmol/L 3.7 - 5.3 mmol/L [place] Sodium [Moles/Vol] 140 mmol/L 135 - 144 mmol/L [place] Urea nitrogen [Mass/Vol] 10 mg/dL 8 - 23 mg/dL [place] CBC auto differentialon 10- 6-2019 Basophils (Bld) [#/Vol] 0.10 10*3/uL [place] Basophils/100 WBC (Bld) 1 % 0 - 2 % [place] Differential Type NOT REPORTED [place] Eosinophils (Bld) [#/Vol] 0.25 10*3/uL [place] Eosinophils/100 WBC (Bld) 3 % 1 - 4 % [place] Erythrocyte distribution width (RBC) [Ratio] 14.0 % 11.8 - 14.4 % [place] Hematocrit (Bld) [Volume fraction] 40.7 % 36.3 - 47.1 % [place] Hemoglobin (Bld) [Mass/Vol] 12.7 g/dL 11.9 - 15.1 g/dL [place] Immature granulocytes (Bld) [#/Vol] 0.06 10*3/uL [place] Immature granulocytes (Bld) [#/Vol] 1 % High 0 [place] Interpretation and review of laboratory results Abnormal [place] Lymphocytes (Bld) [#/Vol] 2.12 10*3/uL [place] Lymphocytes/100 WBC (Bld) 23 % Low 24 - 43 % [place] MCH (RBC) [Entitic mass] 28.1 pg 25.2 - 33.5 pg [place] MCHC (RBC) [Mass/Vol] 31.2 g/dL 28.4 - 34.8 g/dL [place] MCV (RBC) [Entitic vol] 90.0 fL 82.6 - 102.9 fL [place] Monocytes (Bld) [#/Vol] 0.68 10*3/uL [place] Monocytes/100 WBC (Bld) 7 % 3 - 12 % [place] Platelet mean volume (Bld) [Entitic vol] 10.6 fL 8.1 - 13.5 fL [place] Platelets (Bld) [#/Vol] NOT REPORTED [place] Platelets (Bld) [#/Vol] 251 10*3/uL [place] RBC (Bld) [#/Vol] 4.52 10*6/uL 3.95 - 5.1 1 m/uL [place] RBC morphology finding Nom (Bld) NOT REPORTED [place] Segmented neutrophils/100 WBC (Bld) 65 % 36 - 65 % [place] Segs Absolute 6.18 [place] WBC (Bld) [#/Vol] 0.0 10*3/uL 0.0 per 10 0 WBC [place] WBC (Bld) [#/Vol] 9.4 10*3/uL [place] WBC Morphology NOT REPORTED [place] CBC with Diffon 09-01-2020 Abs. Basophil 0.10 k/uL Normal 0.00-0.20 [facility] Comment on above: Performed By: #### C DP, HCG, ALCB, BMPX, LIPR, GLYHGB #### [facility] [address] [place] [address] Ota: Dheeraj Garcia MD Abs.Imm.Granulocyte 0.06 k/uL Normal 0.00-0.30 [facility] Comment on above: Performed By: #### C DP, HCG, ALCB, BMPX, LIPR, GLYHGB #### [facility] [address] [place] [address] [id number] Ota: Dheeraj Garcia MD Abs.Neutrophil (Seg) 6.18 k/uL Normal 1.50-8.10 [facility] Comment on above: Performed By: #### C DP, HCG, ALCB, BMPX, LIPR, GLYHGB #### [facility] [address] [place] [address] Ota: Dheeraj Garcia MD Basophils/100 WBC (Bld) 1 % Normal 0-2 [facility] Comment on above: Performed By: #### C DP, HCG, ALCB, BMPX, LIPR, GLYHGB #### [address] [address] Ota: Dheeraj Garcia MD Eosinophils (Bld) [#/Vol] 0.25 10*3/uL Normal 0.00-0.44 [facility] Comment on above: Performed By: #### C DP, HCG, ALCB, BMPX, LIPR, GLYHGB #### [facility] [address] [place] [address] [id number] Ota: Dheeraj Garcia MD Eosinophils/100 WBC (Bld) 3 % Normal 1-4 [facility] Comment on above: Performed By: #### C DP, HCG, ALCB, BMPX, LIPR, GLYHGB #### [place] [address] Ota: Dheeraj Garcia MD Erythrocyte distribution width (RBC) [Ratio] 14.0 % Normal 11.8-14.4 [facility] Comment on above: Performed By: #### C DP, HCG, ALCB, BMPX, LIPR, GLYHGB #### [address] [address] Ota: Dheeraj Garcia MD Hematocrit (Bld) [Volume fraction] 40.7 % Normal 36.3-47.1 [facility] Comment on above: Performed By: #### C DP, HCG, ALCB, BMPX, LIPR, GLYHGB #### [address] [phone] Ota: Dheeraj Garcia MD Hemoglobin (Bld) [Mass/Vol] 12.7 g/dL Normal 11.9-15.1 [facility] Comment on above: Performed By: #### C DP, HCG, ALCB, BMPX, LIPR, GLYHGB #### [address] [address] Ota: Dheeraj Garcia MD Immature granulocytes (Bld) [#/Vol] 1 % High 0 [facility] Comment on above: Performed By: #### C DP, HCG, ALCB, BMPX, LIPR, GLYHGB #### [address] [address] Ota: Dheeraj Garcia MD Lymphocytes (Bld) [#/Vol] 2.12 10*3/uL Normal 1.10-3.70 [facility] Comment on above: Performed By: #### C DP, HCG, ALCB, BMPX, LIPR, GLYHGB #### [address] [address] Ota: Dheeraj Garcia MD Lymphocytes/100 WBC (Bld) 23 % Low 24-43 [facility] Comment on above: Performed By: #### C DP, HCG, ALCB, BMPX, LIPR, GLYHGB #### [address] [address] Ota: Dheeraj Garcia MD MCH (RBC) [Entitic mass] 28.1 pg Normal 25.2-33.5 [facility] Comment on above: Performed By: #### C DP, HCG, ALCB, BMPX, LIPR, GLYHGB #### [address] [address] Ota: Dheeraj Garcia MD MCHC (RBC) [Mass/Vol] 31.2 g/dL Normal 28.4-34.8 [facility] Comment on above: Performed By: #### C DP, HCG, ALCB, BMPX, LIPR, GLYHGB #### [address] [address] Ota: Dheeraj Garcia MD MCV (RBC) [Entitic vol] 90.0 fL Normal 82.6-102.9 [facility] Comment on above: Performed By: #### C DP, HCG, ALCB, BMPX, LIPR, GLYHGB #### [address] [address] Ota: Dheeraj Garcia MD Monocytes (Bld) [#/Vol] 0.68 10*3/uL Normal 0.10-1.20 [facility] Comment on above: Performed By: #### C DP, HCG, ALCB, BMPX, LIPR, GLYHGB #### [address] [address] Ota: Dheeraj Garcia MD Monocytes/100 WBC (Bld) 7 % Normal 3-12 [facility] Comment on above: Performed By: #### C DP, HCG, ALCB, BMPX, LIPR, GLYHGB #### [place] [address] Ota: Dheeraj Garcia MD Neutrophil (Seg) 65 % Normal 36-65 [facility] Comment on above: Performed By: #### C DP, HCG, ALCB, BMPX, LIPR, GLYHGB #### [address] [address] Ota: Dheeraj Garcia MD NRBC Automated 0.0 per 100 WBC Normal 0.0 [facility] Comment on above: Performed By: #### C DP, HCG, ALCB, BMPX, LIPR, GLYHGB #### [address] [address] Ota: Dheeraj Garcia MD Platelet mean volume (Bld) [Entitic vol] 10.6 fL Normal 8.1-13.5 [facility] Comment on above: Performed By: #### C DP, HCG, ALCB, BMPX, LIPR, GLYHGB #### [address] [address] Ota: Dheeraj Garcia MD Platelets (Bld) [#/Vol] 251 10*3/uL Normal 138-453 [facility] Comment on above: Performed By: #### C DP, HCG, ALCB, BMPX, LIPR, GLYHGB #### [address] [address] Ota: Dheeraj Garcia MD RBC (Bld) [#/Vol] 4.52 10*6/uL Normal 3.95-5.11 [facility] Comment on above: Performed By: #### C DP, HCG, ALCB, BMPX, LIPR, GLYHGB #### [address] [address] Ota: Dheeraj Garcia MD WBC (Bld) [#/Vol] 9.4 10*3/uL Normal 3.5-11.3 [facility] Comment on above: Performed By: #### C DP, HCG, ALCB, BMPX, LIPR, GLYHGB #### [address] [address] Ota: Dheeraj Garcia MD Auto Diff Performed NOT REPORTED Normal [facility] Comment on above: Performed By: #### C DP, HCG, ALCB, BMPX, LIPR, GLYHGB #### [address] [address] Ota: Dheeraj Garcia MD Platelets (Bld) [#/Vol] NOT REPORTED Normal [facility] Comment on above: Performed By: #### C DP, HCG, ALCB, BMPX, LIPR, GLYHGB #### [address] [address] Ota: Dheeraj Garcia MD RBC morphology finding Nom (Bld) NOT REPORTED Normal [facility] Comment on above: Performed By: #### C DP, HCG, ALCB, BMPX, LIPR, GLYHGB #### [facility] [address] [place], [place] [phone] Ota: Dheeraj Garcia MD WBC Morphology NOT REPORTED Normal [facility] Comment on above: Performed By: #### C DP, HCG, ALCB, BMPX, LIPR, GLYHGB #### [facility] [address] [place], [place] [phone] Ota: Dheeraj Garcia MD Echo Completeon 09-01-2020 [place], pn Incoming Card[facility] - 09/01/2020 3:37 PM EDT Transthoracic Echocardiography Report (TTE) Patient Name DENDINGER Date of Study 09/01/2020 YEYO Date of 1955 Gender Female Age 64 year(s) Race Room Number 0234 Height: 65 inch, 165.1 cm Corporate ID [id number] Weight: 232 pounds, 105.2 kg # Patient Acct [id number] BSA: 2.11 m^2 BMI: 38.61 # kg/m^2 MR # [id number] Flake Or Shred Roll Operator GarfieldShanksPérez fritz Interpreting Physician Abundio Aguilar Fellow Referring Nurse Practitioner Interpreting Referring Physician Moisés Rodríguez Fellow Type of Study TTE procedure:2D Echocardiogram, M-Mode, Doppler, Color Doppler, Bubble Study. Procedure Date Date: 09/01/2020 Start: 07:38 AM Study Location: [facility] Technical Quality: Fair visualization Comments:Syncope, R/o CVA History / Tech. Comments: Procedure explained to patient. HTN. Patient Status: Inpatient Height: 65 inches Weight: 232 pounds BSA: 2.11 m^2 BMI: 38.61 kg/m^2 CONCLUSIONS Summary Left ventricle is normal in size Global left ventricular systolic function is hyperdynamic Estimated ejection fraction is 55 % . No obvious wall motion abnormality seen. Moderate left ventricular hypertrophy. No significant valvular regurgitation or stenosis seen. No significant pericardial effusion is seen. Signature - - - - FINDINGS Left Atrium Left atrium is normal in size. No evidence of patent foramen ovale by injection of agitated saline. Left Ventricle Left ventricle is normal in size Global left ventricular systolic function is hyperdynamic Estimated ejection fraction is 55 % . No obvious wall motion abnormality seen. Moderate left ventricular hypertrophy. Right Atrium Right atrium is normal in size. Right Ventricle Normal right ventricular size and function. Mitral Valve Thickened mitral valve leaflets. Trivial mitral regurgitation. Aortic Valve Aortic valve is sclerotic but opens well. No aortic insufficiency. Tricuspid Valve Normal tricuspid valve structure and function. Pulmonic Valve The pulmonic valve is normal in structure. No pulmonic insufficiency. Pericardial Effusion No significant pericardial effusion is seen. Miscellaneous Normal aortic root dimension. E/E' average = 9. IVC normal diameter & inspiratory collapse indicating normal RA filling pressure . M-mode / 2D Measurements & Calculations: LVIDd:4.2 cm(3.7 - 5.6 cm) Diastolic Volume:74.1 ml LVIDs:3.1 cm(2.2 - 4.0 cm) Systolic Volume:29.8 ml IVSd:1.5 cm(0.6 - 1.1 cm) Aortic Root:3.7 cm(2.0 - 3.7 cm) LVPWd:1.4 cm(0.6 - 1.1 cm) LA Dimension: 3.8 cm(1.9 - 4.0 cm) Fractional Shortenin.19 % LA volume/Index: 56 ml /27m^2 Calculated LVEF (%): 59.78 % LVOT:2.3 cm RVDd:3.4 cm Mitral: Aortic Valve Area (P1/2-Time): 3.38 cm^2 Peak Velocity: 1.26 m/s Peak E-Wave: 0.65 m/s Mean Velocity: 0.90 m/s Peak A-Wave: 0.87 m/s Peak Gradient: 6.35 mmHg E/A Ratio: 0.74 Mean Gradient: 4 mmHg Peak Gradient: 1.7 mmHg Mean Gradient: 2 mmHg Deceleration Time: 222 msec Area (continuity): 3.33 cm^2 P1/2t: 65 msec AV VTI: 28.1 cm Area (continuity): 4.08 cm^2 Mean Velocity: 0.69 m/s Tricuspid: Pulmonic: Peak TR Velocity: 2.56 m/s Peak Velocity: 1.00 m/s Peak TR Gradient: 26.2144 mmHg Peak Gradient: 4 mmHg Estimated RA Pressure: 5 mmHg Estimated PASP: 31.21 mmHg Diastology / Tissue Doppler Septal Wall E' velocity:0.07 m/s Septal Wall E/E':9.2 Lateral Wall E' velocity:0.07 m/s Lateral Wall E/E':8.8 [place] Transthoracic Echocardiography Report (TTE) Patient Name DENDINGER Date of Study 09/01/2020 YEYO Date of 1955 Gender Female Age 64 year(s) Race Room Number 0234 Height: 65 inch, 165.1 cm Corporate ID [id number] Weight: 232 pounds, 105.2 kg # Patient Acct [id number] BSA: 2.11 m^2 BMI: 38.61 # kg/m^2 MR # [id number] Flake Or Shred Roll Operator Pérez Lao Interpreting Physician Abundio Aguilar Fellow Referring Nurse Practitioner Interpreting Referring Physician Moisés Rodríguez Fellow Type of Study TTE procedure:2D Echocardiogram, M-Mode, Doppler, Color Doppler, Bubble Study. Procedure Date Date: 09/01/2020 Start: 07:38 AM Study Location: [facility] Technical Quality: Fair visualization Comments:Syncope, R/o CVA History / Tech. Comments: Procedure explained to patient. HTN. Patient Status: Inpatient Height: 65 inches Weight: 232 pounds BSA: 2.11 m^2 BMI: 38.61 kg/m^2 CONCLUSIONS Summary Left ventricle is normal in size Global left ventricular systolic function is hyperdynamic Estimated ejection fraction is 55 % . No obvious wall motion abnormality seen. Moderate left ventricular hypertrophy. No significant valvular regurgitation or stenosis seen. No significant pericardial effusion is seen. Signature FINDINGS Left Atrium Left atrium is normal in size. No evidence of patent foramen ovale by injection of agitated saline. Left Ventricle Left ventricle is normal in size Global left ventricular systolic function is hyperdynamic Estimated ejection fraction is 55 % . No obvious wall motion abnormality seen. Moderate left ventricular hypertrophy. Right Atrium Right atrium is normal in size. Right Ventricle Normal right ventricular size and function. Mitral Valve Thickened mitral valve leaflets. Trivial mitral regurgitation. Aortic Valve Aortic valve is sclerotic but opens well. No aortic insufficiency. Tricuspid Valve Normal tricuspid valve structure and function. Pulmonic Valve The pulmonic valve is normal in structure. No pulmonic insufficiency. Pericardial Effusion No significant pericardial effusion is seen. Miscellaneous Normal aortic root dimension. E/E' average = 9. IVC normal diameter & inspiratory collapse indicating normal RA filling pressure . M-mode / 2D Measurements & Calculations: LVIDd:4.2 cm(3.7 - 5.6 cm) Diastolic Volume:74.1 ml LVIDs:3.1 cm(2.2 - 4.0 cm) Systolic Volume:29.8 ml IVSd:1.5 cm(0.6 - 1.1 cm) Aortic Root:3.7 cm(2.0 - 3.7 cm) LVPWd:1.4 cm(0.6 - 1.1 cm) LA Dimension: 3.8 cm(1.9 - 4.0 cm) Fractional Shortenin.19 % LA volume/Index: 56 ml /27m^2 Calculated LVEF (%): 59.78 % LVOT:2.3 cm RVDd:3.4 cm Mitral: Aortic Valve Area (P1/2-Time): 3.38 cm^2 Peak Velocity: 1.26 m/s Peak E-Wave: 0.65 m/s Mean Velocity: 0.90 m/s Peak A-Wave: 0.87 m/s Peak Gradient: 6.35 mmHg E/A Ratio: 0.74 Mean Gradient: 4 mmHg Peak Gradient: 1.7 mmHg Mean Gradient: 2 mmHg Deceleration Time: 222 msec Area (continuity): 3.33 cm^2 P1/2t: 65 msec AV VTI: 28.1 cm Area (continuity): 4.08 cm^2 Mean Velocity: 0.69 m/s Tricuspid: Pulmonic: Peak TR Velocity: 2.56 m/s Peak Velocity: 1.00 m/s Peak TR Gradient: 26.2144 mmHg Peak Gradient: 4 mmHg Estimated RA Pressure: 5 mmHg Estimated PASP: 31.21 mmHg Diastology / Tissue Doppler Septal Wall E' velocity:0.07 m/s Septal Wall E/E':9.2 Lateral Wall E' velocity:0.07 m/s Lateral Wall E/E':8.8 [place] Ethanolon 09-01-2020 Ethanol [Mass/Vol] mg/dL <10 mg/dL [place] Ethanol percent <0.010 <0.010 % [place] Ethanol Alcoholon 09-01-2020 Ethanol [Mass/Vol] mg/dL Normal <10 [facility] Comment on above: Performed By: #### E RTPF #### [address] [address] Ota: Dheeraj Garcia MD Ethanol percent <0.010 Normal <0.010 [facility] Comment on above: Performed By: #### E RTPF #### [place] [id number] [place], [place] [id number] Ota: Dheeraj Garcia MD HCG Qualitative, Serumon hCG Qual Negative NEGATIVE [place], [place] Comment on above: Specimens with hCG l evels near the threshold of the test (25 mIU/mL) may give a negative or indeterminate result. In such cases, another test should be performed with a new specimen in 48-72 hours. If early is suspected clinically in this setting, correlation with quantitative serum b-hCG level is suggested. [employer] has confirmed the use of plasma for this test. This has not been cleared or approved by the U.S. Food and Drug Administration. The FDA has determined that such clearance is not necessary. HCG Screen, Blood 09-01-20 20 HCG Qn Negative Normal NEG [facility] Comment on above: Result Comment: Spec imens with hCG levels near the threshold of the test (25 mIU/mL) may give a negative or indeterminate result. In such cases, another test should be performed with a new specimen in 48-72 hours. If early is suspected clinically in this setting, correlation with quantitative serum b-hCG level is suggested. [facility] the use of plasma for this test. This has not been cleared or approved by the U.S. Food and Drug Administration. The FDA has determined that such clearance is not necessary. Performed By: #### E RTPF #### [address] [id number] Ota: Dheeraj Garcia MD Hematologyon 09-01-2020 WBC (Bld) [#/Vol] DUPLICATE ORDER per 100 WBC M [place], [place] Hemoglobin A1Con 09-01-2020 HbA1c (Bld) [Mass fraction] 151 mg/dL Normal [facility] Comment on above: Result Comment: The ADA and AACC recommend providing the estimated average glucose result to permit better patient understanding of their HBA1c result. Performed By: #### E RTPF #### [facility] [employer] [address] [place] [address] [id number] Ota: Dheeraj Garcia MD HbA1c (Bld) [Mass fraction] 6.9 % High 4.0-6.0 [facility] Comment on above: Performed By: #### E RTPF #### [facility] [address] [place], [place] [id number] Ota: Dheeraj Garcia MD Hemoglobin A1con 09-01-2020 Glucose [Mass/Vol] 151 mg/dL [place], [place] Comment on above: The ADA and AACC rec ommend providing the estimated average glucose result to permit better patient understanding of their HBA1c result. HbA1c (Bld) [Mass fraction] 6.9 % High 4 - 6 % [place], [place] Interpretation and review of laboratory results Abnormal [place] Lipid Profileon 09-01-2020 Cholesterol [Mass/Vol] 123 mg/dL Normal <200 [facility] Comment on above: Result Comment: Cholesterol Guidelines: <200 Desirable 200-240 Borderline >240 Undesirable Performed By: #### E RTPF #### [address] [address] Ota: Dheeraj Garcia MD Cholesterol in HDL [Mass/Vol] 43 mg/dL Normal >40 [facility] Comment on above: Result Comment: HDL Guidelines: <40 Undesirable 40-59 Borderline >59 Desirable Performed By: #### E RTPF #### [address] [address] Ota: Dheeraj Garcia MD Cholesterol in LDL [Mass/Vol] 50 mg/dL Normal 0-130 [facility] Comment on above: Result Comment: LDL Guidelines: <100 Desirable 100-129 Near to/above Desirable 130-159 Borderline >159 Undesirable Direct (measured) LDL and calculated LDL are not interchangeable tests. Performed By: #### E RTPF #### [address] [address] Ota: Dheeraj Garcia MD Cholesterol.total/Chol esterol in HDL [Mass ratio] 2.9 {ratio} Normal <5 [facility] Comment on above: Performed By: #### E RTPF #### [address] [address] Ota: Dheeraj Garcia MD Triglyceride [Mass/Vol] 149 mg/dL Normal <150 [facility] Comment on above: Result Comment: Triglyceride Guidelines: <150 Desirable 150-199 Borderline 200-499 High >499 Very high Based on AHA Guidelines for fasting triglyceride, August 2012. Performed By: #### E RTPF #### [address] [address] Ota: Dheeraj Garcia MD Cholesterol in VLDL [Mass/Vol] NOT REPORTED Normal 1-30 [facility] Comment on above: Performed By: #### E RTPF #### [facility] [employer] [address] [place], [place] [id number] Ota: Dheeraj Garcia MD Lipid panel - fastingon 08-17 Cholesterol [Mass/Vol] 123 mg/dL <200 [place], [place] Comment on above: Cholesterol Guidelines: <200 Desirable 200-240 Borderline >240 Undesirable Cholesterol in HDL [Mass/Vol] 43 mg/dL >40 [place] Comment on above: HDL Guidelines: <40 Undesirable 40-59 Borderline >59 Desirable Cholesterol in LDL [Mass/Vol] 50 mg/dL 0 - 130 mg/dL [place] Comment on above: LDL Guidelines: <100 Desirable 100-129 Near to/above Desirable 130-159 Borderline >159 Undesirable Direct (measured) LDL and calculated LDL are not interchangeable tests. Cholesterol in VLDL [Mass/Vol] NOT REPORTED 1 - 30 mg/dL [place] Cholesterol.total/Chol esterol in HDL [Mass ratio] 2.9 {ratio} <5 [place] Triglyceride [Mass/Vol] 149 mg/dL <150 [place] Comment on above: Triglyceride Guidelines: <150 Desirable 150-199 Borderline 200-499 High >499 Very high Based on AHA Guidelines for fasting triglyceride, August 2012. Metabolic Panelon 09-01-2020 GFR/1.73 sq M predicted among non-blacks MDRD (S/P/Bld) [Vol rate/Area] DUPLICATE ORDER [place], [place] TRAUMA PANELon 09-01-2020 Hubert Test NOT REPORTED [place], [place] Anion gap [Moles/Vol] DUPLICATE ORDER mmol/L [place] aPTT Coag (Bld) [Time] 27.5 s [place], [place] Comment on above: IV Heparin Therapy Range: 48.6-77.8 aPTT Coag (Bld) [Time] 37.0 s [place] Blood Bank Specimen BILL FOR SERVICES PERFORMED [place], [place] Carboxyhemoglobin 0.6 % 0 - 5 % [place], [place] Comment on above: Reference Range: Non-Smokers 0-2% Average Smoker 2-4% Heavy Smoker <10% Chloride [Moles/Vol] DUPLICATE ORDER mmol/L [place] CO2 [Moles/Vol] DUPLICATE ORDER mmol/L [place], [place] Creatinine [Mass/Vol] DUPLICATE ORDER mg/dL [place] Erythrocyte distribution width (RBC) [Ratio] DUPLICATE ORDER % [place] Ethanol [Mass/Vol] Order moved to nearest draw time. [id number] mg/dL [place] Ethanol percent Order moved to nearest draw time. [id number] % [place] FIO2 UNKNOWN [place] GFR DUPLICATE ORDER >60 mL/min [place] GFR Non- DUPLICATE ORDER >60 mL/min [place] Glucose [Mass/Vol] DUPLICATE ORDER mg/dL M [place] hCG Qual Order moved to nearest draw time. [id number] NEGATIVE [place] HCO3, Venous 27.6 mmol/L 24 - 30 mmol/L [place] Hematocrit (Bld) [Volume fraction] DUPLICATE ORDER % [place] Hemoglobin (Bld) [Mass/Vol] DUPLICATE ORDER g/dL [place], [place] INR Coag (PPP) [Relative time] 1.0 {INR} [place], [place] Comment on above: Therapeutic Range: Moderate Anticoagulant Intensity: INR = 2.0-3.0 High Anticoagulant Intensity: INR = 2.5-3.5 Interpretation and review of laboratory results Abnormal [place] MCH (RBC) [Entitic mass] DUPLICATE ORDER pg [place] MCHC (RBC) [Mass/Vol] DUPLICATE ORDER g/dL [place] MCV (RBC) [Entitic vol] DUPLICATE ORDER fL [place], [place] Methemoglobin NOT REPORTED 0 - 1.5 % [facility] [place], [place] Mode NOT REPORTED [place] Negative Base Excess, Christo NOT REPORTED 0 - 2 mmol/L [place] NOTIFICATION NOT REPORTED [place], [place] NOTIFICATION TIME NOT REPORTED [place] O2 Device/Flow/% NOT REPORTED [place] Oxygen saturation in Blood 43.1 % Low 60 - 85 % [place] Oxyhemoglobin NOT REPORTED 95 - 98 % [place], [place] pCO2, Christo 48.8 [place] pCO2, Christo, Temp Adj NOT REPORTED [place], [place] Peep/Cpap NOT REPORTED [place] pH, Christo 7.371 [place], [place] pH, Christo, Temp Adj NOT REPORTED [place] Platelet mean volume (Bld) [Entitic vol] DUPLICATE ORDER fL [place] Platelets (Bld) [#/Vol] DUPLICATE ORDER k/uL [place] pO2, Christo 23.6 Low [place] pO2, Christo, Temp Adj NOT REPORTED [place] Positive Base Excess, Christo 2.1 mmol/L High 0 - 2 mmol/L [place] Potassium [Moles/Vol] DUPLICATE ORDER mmol/L [place] PSV NOT REPORTED [place] PT Coag (PPP) [Time] 10.4 s [place] Pt. Position NOT REPORTED [place] RBC (Bld) [#/Vol] DUPLICATE ORDER m/uL [place] Sample Site NOT REPORTED [place], [place] Set Rate NOT REPORTED [place] Sodium [Moles/Vol] DUPLICATE ORDER mmol/L [place], [place] Text for Respiratory NOT REPORTED [place] Total Hb NOT REPORTED 12 - 16 g/dl [place], [place] Total Rate NOT REPORTED [place] Urea nitrogen [Mass/Vol] DUPLICATE ORDER mg/dL [place], [place] VT NOT REPORTED [place] Trauma Profileon 09-01-2020 aPTT Coag (Bld) [Time] 27.5 s Normal 20.5-30.5 [facility] Comment on above: Result Comment: IV Heparin Therapy Range: 48.6-77.8 Performed By: #### E RTPF #### [facility] [employer] [address] [place] [id number] Ota: Dheeraj Garcia MD INR Coag (PPP) [Relative time] 1.0 {INR} Normal [facility] Comment on above: Result Comment: Therapeutic Range: Moderate Anticoagulant Intensity: INR = 2.0-3.0 High Anticoagulant Intensity: INR = 2.5-3.5 Performed By: #### E RTPF #### [address] [address] Ota: Dheeraj Garcia MD PT Coag (PPP) [Time] 10.4 s Normal 9.0-12.0 [facility] Comment on above: Performed By: #### E RTPF #### [address] [address] Ota: Dheeraj Garcia MD Body Temp. 37.0 Normal [facility] Comment on above: Performed By: #### E RTPF #### [address] [address] Ota: Dheeraj Garcia MD Carboxy Hgb 0.6 % Normal 0-5 [facility] Comment on above: Result Comment: Reference Range: Non-Smokers 0-2% Average Smoker 2-4% Heavy Smoker <10% Performed By: #### E RTPF #### [address] [address] Ota: Dheeraj Garcia MD FIO2 UNKNOWN Normal [facility] Comment on above: Performed By: #### E RTPF #### [address] [address] Ota: Dheeraj Garcia MD HCO3 (Bld) [Moles/Vol] 27.6 mmol/L Normal 24-30 M [facility] Comment on above: Performed By: #### E RTPF #### [address] [address] Ota: Dheeraj Garcia MD Oxygen (Bld) [Partial pressure] 23.6 mm[Hg] Low 30-50 [facility] Comment on above: Performed By: #### E RTPF #### [address] [address] Ota: Dheeraj Garcia MD Oxygen saturation in Blood 43.1 % Low 60.0-85.0 [facility] Comment on above: Performed By: #### E RTPF #### [address] [address] Ota: Dheeraj Garcia MD pCO2 48.8 Normal 39-55 [facility] Comment on above: Performed By: #### E RTPF #### [address] [address] Ota: Dheeraj Garcia MD pH (Bld) 7.371 [pH] Normal 7.320-7.420 [facility] Comment on above: Performed By: #### E RTPF #### [address] [address] Ota: Dheeraj Garcia MD Positive Base Excess 2.1 mmol/L High 0.0-2.0 [facility] Comment on above: Performed By: #### E RTPF #### [address] [address] Ota: Dheeraj Garcia MD Hubert Test NOT REPORTED Normal [facility] Comment on above: Performed By: #### E RTPF #### [address] [address] Ota: Dheeraj Garcia MD Methemoglobin NOT REPORTED Normal 0.0-1.5 [facility] Comment on above: Performed By: #### E RTPF #### [address] [address] Ota: Dheeraj Garcia MD Mode NOT REPORTED Normal [facility] Comment on above: Performed By: #### E RTPF #### [address] [address] Ota: Dheeraj Garcia MD Negative Base Excess NOT REPORTED Normal 0.0-2.0 [facility] Comment on above: Performed By: #### E RTPF #### [address] [address] Ota: Dheeraj Garcia MD Notification Time NOT REPORTED Normal [facility] Comment on above: Performed By: #### E RTPF #### [address] [address] Ota: Dheeraj Garcia MD Notification: NOT REPORTED Normal [facility] Comment on above: Performed By: #### E RTPF #### [address] [address] Ota: Dheeraj Garcia MD O2 Device/Flow/% NOT REPORTED Normal [facility] Comment on above: Performed By: #### E RTPF #### [address] [address] Ota: Dheeraj Garcia MD Oxyhemoglobin NOT REPORTED Normal 95.0-98.0 [facility] Comment on above: Performed By: #### E RTPF #### [address] [address] Ota: Dheeraj Garcia MD Pco2 Adj'd for Temp. NOT REPORTED Normal 39-55 [facility] Comment on above: Performed By: #### E RTPF #### [address] [address] Ota: Dheeraj Garcia MD PEEP/CPAP NOT REPORTED Normal [facility] Comment on above: Performed By: #### E RTPF #### [facility] [employer] [address] [place] [id number] Ota: Dheeraj Garcia MD pH Adjst'd for Temp. NOT REPORTED Normal 7.320-7.420 M [facility] Comment on above: Performed By: #### E RTPF #### [address] [address] Ota: Dheeraj Garcia MD pO2 Adj'd for Temp. NOT REPORTED Normal 30-50 [facility] Comment on above: Performed By: #### E RTPF #### [address] [address] Ota: Dheeraj Garcia MD PSV NOT REPORTED Normal [facility] Comment on above: Performed By: #### E RTPF #### [address] [address] Ota: Dheeraj Garcia MD Pt. Position NOT REPORTED Normal [facility] Comment on above: Performed By: #### E RTPF #### [address] [address] Ota: Dheeraj Garcia MD Set Rate NOT REPORTED Normal [facility] Comment on above: Performed By: #### E RTPF #### [facility] [employer] [address] [place] [id number] Ota: Dheeraj Garcia MD Site Drawn NOT REPORTED Normal [facility] Comment on above: Performed By: #### E RTPF #### [facility] [employer] [address] [place] [id number] Ota: Dheeraj Garcia MD Text for Respiratory NOT REPORTED Normal [facility] Comment on above: Performed By: #### E RTPF #### [facility] [address] [place] [address] Ota: Dheeraj Garcia MD Total Hb NOT REPORTED Normal 12.0-16.0 [facility] Comment on above: Performed By: #### E RTPF #### [facility] [address] [place] [address] Ota: Dheeraj Garcia MD Total Rate NOT REPORTED Normal [facility] Comment on above: Performed By: #### E RTPF #### [facility] [place] [address] Ota: Dheeraj Garcia MD [place] NOT REPORTED Normal [facility] Comment on above: Performed By: #### E RTPF #### [address] [address] Ota: Dheeraj Garcia MD Blood Bank BILL FOR SERVICES PERFORMED Normal [facility] Comment on above: Performed By: #### E RTPF #### [address] [address] Ota: Dheeraj Garcia MD CT CERVICAL SPINE WO CONTRAS Ton 08-31-2020 CT CERVICAL SPINE WO CONTRAST EXAMINATION: CT OF THE CERVICAL SPINE WITHOUT CONTRAST 08/30/2020 9:33 pm TECHNIQUE: CT of the cervical spine was performed without the administration of intravenous contrast. Multiplanar reformatted images are provided for review. Dose modulation, iterative reconstruction, and/or weight based adjustment of the mA/kV was utilized to reduce the radiation dose to as low as reasonably achievable. COMPARISON: None. HISTORY: ORDERING SYSTEM PROVIDED HISTORY: trauma TECHNOLOGIST PROVIDED HISTORY: trauma Reason for Exam: trauma Acuity: Acute Type of Exam: Initial FINDINGS: BONES/ALIGNMENT: There is no acute fracture or traumatic malalignment. DEGENERATIVE CHANGES: Multilevel degenerative changes are present, most prominent at the C5-6 and C6-7 disc levels. SOFT TISSUES: There is no prevertebral soft tissue swelling. IMPRESSION: No evidence of an acute fracture or traumatic malalignment involving the cervical spine Interpreted by: Krishna Martell DO Signed by: Krishna Martell DO 08/30/20 Final result Normal [facility] CT CHEST ABDOMEN PELVIS W CO NTRASTon 08-31-2020 CT CHEST ABDOMEN PELVIS W CONTRAST EXAMINATION: CT OF THE CHEST, ABDOMEN, AND PELVIS WITH CONTRAST 08/30/2020 10:31 pm TECHNIQUE: CT of the chest, abdomen and pelvis was performed with the administration of intravenous contrast. Multiplanar reformatted images are provided for review. Dose modulation, iterative reconstruction, and/or weight based adjustment of the mA/kV was utilized to reduce the radiation dose to as low as reasonably achievable. COMPARISON: None HISTORY: ORDERING SYSTEM PROVIDED HISTORY: trauma TECHNOLOGIST PROVIDED HISTORY: trauma Reason for Exam: trauma Acuity: Acute Type of Exam: Initial FINDINGS: Chest: Mediastinum: Heart size is normal without pericardial effusion. Coronary artery atherosclerosis. The thoracic aorta is normal in caliber. There is dilation of the main pulmonary artery to 3.8 cm. No mediastinal hematoma. Lungs/pleura: No pulmonary contusion. No pleural effusion or pneumothorax. Soft Tissues/Bones: Prior sternotomy. No acute osseous abnormality. Abdomen/Pelvis: Organs: The liver is diffusely hypoattenuating with calcified granulomas. No cholelithiasis. There is heterogeneous enhancement of the spleen, likely due to contrast timing. No acute abnormality within the pancreas, adrenal glands, or kidneys. 1.6 cm left upper pole renal lesion is indeterminate. GI/Bowel: Stomach is partially distended. The small bowel is nondilated. The colon is normal in caliber. Pelvis: Bladder is partially collapsed around a Ac catheter. Uterus is absent. Peritoneum/Retroperi toneum: No ascites or pneumoperitoneum. Atherosclerosis of the nondilated abdominal aorta. Bones/Soft Tissues: No acute osseous abnormality. IMPRESSION: 1. No acute or traumatic intrathoracic abnormality. 2. No acute or traumatic intra-abdominal abnormality. 3. Dilation of the main pulmonary artery, suggestive of pulmonary artery hypertension. 4. Hepatic steatosis. 5. 1.6 cm left upper pole renal lesion is indeterminate, possibly a cyst. Renal protocol CT or MRI could provide further information as clinically indicated. Interpreted by: Brenda Sheldon MD Signed by: Brenda Sheldon MD 08/30/20 Final result Normal [facility] CT LUMBAR SPINE TRAUMA RECON STRUCTIONon 08-31-2020 CT LUMBAR SPINE TRAUMA RECONSTRUCTION EXAMINATION: CT OF THE LUMBAR SPINE WITHOUT CONTRAST 08/30/2020 TECHNIQUE: CT of the lumbar spine was performed without the administration of intravenous contrast. Multiplanar reformatted images are provided for review. Dose modulation, iterative reconstruction, and/or weight based adjustment of the mA/kV was utilized to reduce the radiation dose to as low as reasonably achievable. COMPARISON: None HISTORY: ORDERING SYSTEM PROVIDED HISTORY: TRAUMA TECHNOLOGIST PROVIDED HISTORY: trauma Reason for Exam: trauma Acuity: Acute Type of Exam: Initial FINDINGS: BONES/ALIGNMENT: There is normal alignment of the spine. The vertebral body heights are maintained. No osseous destructive lesion is seen. DEGENERATIVE CHANGES: No significant degenerative changes of the lumbar spine. SOFT TISSUES/RETROPERITON EUM: No paraspinal mass is seen. Cortical cyst formation is seen on the upper pole of the left kidney. IMPRESSION: No evidence of an acute fracture or traumatic malalignment involving the lumbar spine. Interpreted by: Krishna Martell DO Signed by: Krishna Martell DO 08/30/20 Final result Normal [facility] CT THORACIC SPINE TRAUMA REC ONSTRUCTIONon 08-31-2020 CT THORACIC SPINE TRAUMA RECONSTRUCTION EXAMINATION: CT OF THE THORACIC SPINE WITHOUT CONTRAST 08/30/2020 10:31 pm: TECHNIQUE: CT of the thoracic spine was performed without the administration of intravenous contrast. Multiplanar reformatted images are provided for review. Dose modulation, iterative reconstruction, and/or weight based adjustment of the mA/kV was utilized to reduce the radiation dose to as low as reasonably achievable. COMPARISON: None. HISTORY: ORDERING SYSTEM PROVIDED HISTORY: trauma TECHNOLOGIST PROVIDED HISTORY: trauma Reason for Exam: trauma Acuity: Acute Type of Exam: Initial FINDINGS: BONES/ALIGNMENT: There is normal alignment of the spine. The vertebral body heights are maintained. No osseous destructive lesion is seen. DEGENERATIVE CHANGES: No gross spinal canal stenosis or bony neural foraminal narrowing of the thoracic spine. Osseous fusion across the anterior aspect of the T5-T6 disc level is noted. SOFT TISSUES: No paraspinal mass is seen. Dependent changes are seen within the lung bases. No pneumothorax is noted. IMPRESSION: No evidence of an acute fracture or traumatic malalignment involving the thoracic spine Interpreted by: Krishna Martell DO Signed by: Krishna Martell DO 08/30/20 Final result Normal [facility] CTA HEAD NECK W CONTRASTon 1 0-15-2020 CTA HEAD NECK W CONTRAST EXAMINATION: CTA OF THE HEAD AND NECK WITH CONTRAST 08/30/2020 10:49 pm: TECHNIQUE: CTA of the head and neck was performed with the administration of intravenous contrast. Multiplanar reformatted images are provided for review. MIP images are provided for review. Stenosis of the internal carotid arteries measured using NASCET criteria. Dose modulation, iterative reconstruction, and/or weight based adjustment of the mA/kV was utilized to reduce the radiation dose to as low as reasonably achievable. 3D reconstructed images were performed on a separate workstation and provided for review. COMPARISON: None. HISTORY: ORDERING SYSTEM PROVIDED HISTORY: left arm and face weakness AMS TECHNOLOGIST PROVIDED HISTORY: left arm and face weakness AMS Reason for Exam: stroke Acuity: Unknown Type of Exam: Unknown FINDINGS: CTA NECK: AORTIC ARCH/ARCH VESSELS: No dissection or arterial injury. No significant stenosis of the brachiocephalic or subclavian arteries. CAROTID ARTERIES: No dissection, arterial injury, or hemodynamically significant stenosis by NASCET criteria. VERTEBRAL ARTERIES: No dissection, arterial injury, or significant stenosis. SOFT TISSUES: The lung apices are clear. No cervical or superior mediastinal lymphadenopathy. The larynx and pharynx are unremarkable. No acute abnormality of the salivary and thyroid glands. BONES: No acute osseous abnormality. CTA HEAD: ANTERIOR CIRCULATION: 50% stenosis of left paraclinoid segment ICA. No significant stenosis of the right intracranial internal carotid, either anterior cerebral, or either middle cerebral arteries. No aneurysm. POSTERIOR CIRCULATION: supply on the right. No significant stenosis of the vertebral, basilar, or posterior cerebral arteries. No aneurysm. OTHER: No dural venous sinus thrombosis on this non-dedicated study. BRAIN: No mass effect or midline shift. No extra-axial fluid collection. The durán-white differentiation is maintained. IMPRESSION: Unremarkable CTA of the neck. 50% stenosis left intracranial ICA, otherwise unremarkable CTA head. Interpreted by: Dom Zhong MD Signed by: Dom Zhong MD 08/30/20 Final result Normal [facility] MRI LIMITED BRAINon 08-31-20 20 MRI LIMITED BRAIN EXAMINATION: MRI OF THE BRAIN WITHOUT CONTRAST 08/31/2020 11:24 am TECHNIQUE: Multiplanar multisequence MRI of the brain was performed without the administration of intravenous contrast. COMPARISON: None. HISTORY: ORDERING SYSTEM PROVIDED HISTORY: Fall with bilateral upper and lower weakness. Rule out Acute CVA TECHNOLOGIST PROVIDED HISTORY: Fall with bilateral upper and lower weakness. Rule out Acute CVA Reason for Exam: fall with bilateral upper and lower weaknesses FINDINGS: INTRACRANIAL STRUCTURES/VENTRICLE S: There is no acute hemorrhage, mass effect, or midline shift. There is satisfactory overall durán-white matter differentiation. There is minimal chronic microvascular disease. The ventricular structures are symmetric and unremarkable. The infratentorial structures including the cerebellopontine angles and internal auditory canals are unremarkable. There is no abnormal restricted diffusion. There is no abnormal blooming artifact on susceptibility weighted imaging. ORBITS: The visualized portion of the orbits demonstrate no acute abnormality. SINUSES: The visualized paranasal sinuses and mastoid air cells are well aerated. BONES/SOFT TISSUES: The bone marrow signal intensity appears normal. The soft tissues demonstrate no acute abnormality. IMPRESSION: Minimal chronic microvascular disease without acute intracranial abnormality. Interpreted by: Hector Cooper MD Signed by: Hector Cooper MD 08/31/20 Final result Normal [facility] [place], [place] Incoming Radiant Results From [employer] - 08/31/2020 11:56 AM EDT EXAMINATION: MRI OF THE BRAIN WITHOUT CONTRAST 08/31/2020 11:24 am TECHNIQUE: Multiplanar multisequence MRI of the brain was performed without the administration of intravenous contrast. COMPARISON: None. HISTORY: ORDERING SYSTEM PROVIDED HISTORY: Fall with bilateral upper and lower weakness. Rule out Acute CVA TECHNOLOGIST PROVIDED HISTORY: Fall with bilateral upper and lower weakness. Rule out Acute CVA Reason for Exam: fall with bilateral upper and lower weaknesses FINDINGS: INTRACRANIAL STRUCTURES/VENTRICLE S: There is no acute hemorrhage, mass effect, or midline shift. There is satisfactory overall durán-white matter differentiation. There is minimal chronic microvascular disease. The ventricular structures are symmetric and unremarkable. The infratentorial structures including the cerebellopontine angles and internal auditory canals are unremarkable. There is no abnormal restricted diffusion. There is no abnormal blooming artifact on susceptibility weighted imaging. ORBITS: The visualized portion of the orbits demonstrate no acute abnormality. SINUSES: The visualized paranasal sinuses and mastoid air cells are well aerated. BONES/SOFT TISSUES: The bone marrow signal intensity appears normal. The soft tissues demonstrate no acute abnormality. IMPRESSION: Minimal chronic microvascular disease without acute intracranial abnormality. [facility], [place] Minimal chronic microvascular disease without acute intracranial abnormality. [place], [place] EXAMINATION: MRI OF THE BRAIN WITHOUT CONTRAST 08/31/2020 11:24 am TECHNIQUE: Multiplanar multisequence MRI of the brain was performed without the administration of intravenous contrast. COMPARISON: None. HISTORY: ORDERING SYSTEM PROVIDED HISTORY: Fall with bilateral upper and lower weakness. Rule out Acute CVA TECHNOLOGIST PROVIDED HISTORY: Fall with bilateral upper and lower weakness. Rule out Acute CVA Reason for Exam: fall with bilateral upper and lower weaknesses FINDINGS: INTRACRANIAL STRUCTURES/VENTRICLE S: There is no acute hemorrhage, mass effect, or midline shift. There is satisfactory overall durán-white matter differentiation. There is minimal chronic microvascular disease. The ventricular structures are symmetric and unremarkable. The infratentorial structures including the cerebellopontine angles and internal auditory canals are unremarkable. There is no abnormal restricted diffusion. There is no abnormal blooming artifact on susceptibility weighted imaging. ORBITS: The visualized portion of the orbits demonstrate no acute abnormality. SINUSES: The visualized paranasal sinuses and mastoid air cells are well aerated. BONES/SOFT TISSUES: The bone marrow signal intensity appears normal. The soft tissues demonstrate no acute abnormality. [place], [place] Trauma Profileon 08-31-2020 Erythrocyte distribution width (RBC) [Ratio] 14.1 % Normal 11.8-14.4 [facility] Comment on above: Performed By: #### E RTPF #### [employer] [address] [place] [address] [phone] Ota: Dheeraj Garcia MD Hematocrit (Bld) [Volume fraction] 38.2 % Normal 36.3-47.1 [facility] Comment on above: Performed By: #### E RTPF #### [employer] [facility] [place] [address] Ota: Dheeraj Garcia MD Hemoglobin (Bld) [Mass/Vol] 12.3 g/dL Normal 11.9-15.1 [facility] Comment on above: Performed By: #### E RTPF #### [facility] [address] [place] [address] [phone] Ota: Dheeraj Garcia MD MCH (RBC) [Entitic mass] 28.9 pg Normal 25.2-33.5 [facility] Comment on above: Performed By: #### E RTPF #### [address] [address] Ota: Dheeraj Garcia MD MCHC (RBC) [Mass/Vol] 32.2 g/dL Normal 28.4-34.8 [facility] Comment on above: Performed By: #### E RTPF #### [address] [address] Ota: Dheeraj Garcia MD MCV (RBC) [Entitic vol] 89.7 fL Normal 82.6-102.9 [facility] Comment on above: Performed By: #### E RTPF #### [address] [address] Ota: Dheeraj Garcia MD NRBC Automated 0.0 per 100 WBC Normal 0.0 [facility] Comment on above: Performed By: #### E RTPF #### [address] [address] Ota: Dheeraj Garcia MD Platelet mean volume (Bld) [Entitic vol] 10.6 fL Normal 8.1-13.5 [facility] Comment on above: Performed By: #### E RTPF #### [place] [address] Ota: Dheeraj Garcia MD Platelets (Bld) [#/Vol] 268 10*3/uL Normal 138-453 [facility] Comment on above: Performed By: #### E RTPF #### [address] [address] Ota: Dheeraj Garcia MD RBC (Bld) [#/Vol] 4.26 10*6/uL Normal 3.95-5.11 [facility] Comment on above: Performed By: #### E RTPF #### [address] [address] Ota: Dheeraj Garcia MD WBC (Bld) [#/Vol] 8.7 10*3/uL Normal 3.5-11.3 [facility] Comment on above: Performed By: #### E RTPF #### [place] [address] Ota: Dheeraj Garcia MD (cont.) [facility] Comment on above: Result Comment: Aver age GFR for 60-69 years old: 85 mL/min/1.73sq m Chronic Kidney Disease: <60 mL/min/1.73sq m Kidney failure: <15 mL/min/1.73sq m eGFR calculated using average adult body mass. Additional eGFR calculator available at: http://www.[employer]/multiple_crcl_2012.htm Performed By: #### E RTPF #### [address] [address] Ota: Dheeraj Garcia MD Anion gap [Moles/Vol] 10 mmol/L Normal 9-17 [facility] Comment on above: Performed By: #### E RTPF #### [address] [address] Ota: Dheeraj Garcia MD Chloride [Moles/Vol] 106 mmol/L Normal 98-107 [facility] Comment on above: Performed By: #### E RTPF #### [address] [address] Ota: Dheeraj Garcia MD CO2 [Moles/Vol] 23 mmol/L Normal 20-31 [facility] Comment on above: Performed By: #### E RTPF #### [address] [address] Ota: Dheeraj Garcia MD Creatinine [Mass/Vol] 0.62 mg/dL Normal 0.50-0.90 [facility] Comment on above: Performed By: #### E RTPF #### [address] [address] Ota: Dheeraj Garcia MD Ethanol [Mass/Vol] mg/dL Normal <10 [facility] Comment on above: Performed By: #### E RTPF #### [address] [address] Ota: Dheeraj Garcia MD Ethanol percent <0.010 Normal <0.010 [facility] Comment on above: Performed By: #### E RTPF #### [address] [address] Ota: Dheeraj Garcia MD GFR, Amer >60 Normal >60 [facility] Comment on above: Performed By: #### E RTPF #### [address] [address] Ota: Dheeraj Garcia MD GFR,non Amer >60 Normal >60 [facility] Comment on above: Performed By: #### E RTPF #### [address] [address] Ota: Dheeraj Garcia MD Glucose [Mass/Vol] 186 mg/dL High 70-99 [facility] Comment on above: Performed By: #### E RTPF #### [address] [address] Ota: Dheeraj Garcia MD Potassium [Moles/Vol] 3.5 mmol/L Low 3.7-5.3 [facility] Comment on above: Performed By: #### E RTPF #### [address] [address] Ota: Dheeraj Garcia MD Sodium [Moles/Vol] 139 mmol/L Normal 135-144 [facility] Comment on above: Performed By: #### E RTPF #### [address] [address] Ota: Dheeraj Garcia MD Urea nitrogen [Mass/Vol] 11 mg/dL Normal 8-23 [facility] Comment on above: Performed By: #### E RTPF #### [address] [address] Ota: Dheeraj Garcia MD aPTT Coag (Bld) [Time] 24.4 s Normal 20.5-30.5 [facility] Comment on above: Result Comment: IV Heparin Therapy Range: 48.6-77.8 Performed By: #### E RTPF #### [address] [address] Ota: Dheeraj Garcia MD INR Coag (PPP) [Relative time] 1.0 {INR} Normal [facility] Comment on above: Result Comment: Therapeutic Range: Moderate Anticoagulant Intensity: INR = 2.0-3.0 High Anticoagulant Intensity: INR = 2.5-3.5 Performed By: #### E RTPF #### [address] [address] Ota: Dheeraj Garcia MD PT Coag (PPP) [Time] 10.5 s Normal 9.0-12.0 [facility] Comment on above: Performed By: #### E RTPF #### [address] [address] Ota: Dheeraj Garcia MD Body Temp. 37.0 Normal [facility] Comment on above: Performed By: #### E RTPF #### [address] [address] Ota: Dheeraj Garcia MD Carboxy Hgb 2.2 % Normal 0-5 [facility] Comment on above: Result Comment: Reference Range: Non-Smokers 0-2% Average Smoker 2-4% Heavy Smoker <10% Performed By: #### E RTPF #### [address] [address] Ota: Dheeraj Garcia MD FIO2 INFORMATION NOT PROVIDED Normal [facility] Comment on above: Performed By: #### E RTPF #### [address] [address] Ota: Dheeraj Garcia MD HCO3 (Bld) [Moles/Vol] 23.6 mmol/L Low 24-30 M [facility] Comment on above: Performed By: #### E RTPF #### [address] [address] Ota: Dheeraj Garcia MD Negative Base Excess 0.8 mmol/L Normal 0.0-2.0 [facility] Comment on above: Performed By: #### E RTPF #### [address] [address] Ota: Dheeraj Garcia MD Oxygen (Bld) [Partial pressure] 143.0 mm[Hg] High 30-50 [facility] Comment on above: Performed By: #### E RTPF #### [address] [address] Ota: Dheeraj Garcia MD Oxygen saturation in Blood 98.6 % High 60.0-85.0 [facility] Comment on above: Performed By: #### E RTPF #### [address] [address] Ota: Dheeraj Garcia MD pCO2 40.6 Normal 39-55 [facility] Comment on above: Performed By: #### E RTPF #### [facility] [employer] [address] [place] [phone] Ota: Dheeraj Garcia MD pH (Bld) 7.383 [pH] Normal 7.320-7.420 [facility] Comment on above: Performed By: #### E RTPF #### [facility] [employer] [address] [place] [id number] Ota: Dheearj Garcia MD Blood Bank BILL FOR SERVICES PERFORMED Normal [facility] Comment on above: Performed By: #### E RTPF #### [address] [address] Ota: Dheeraj Garcia MD Hubert Test NOT REPORTED Normal [facility] Comment on above: Performed By: #### E RTPF #### [facility] [employer] [address] [place] [phone] Ota: Dheeraj Garcia MD Methemoglobin NOT REPORTED Normal 0.0-1.5 [facility] Comment on above: Performed By: #### E RTPF #### [address] [address] Ota: Dheeraj Garcia MD Mode NOT REPORTED Normal [facility] Comment on above: Performed By: #### E RTPF #### [facility] [employer] [address] [place] [id number] Ota: Dheeraj Garcia MD Notification Time NOT REPORTED Normal [facility] Comment on above: Performed By: #### E RTPF #### [facility] [employer] [address] [place] [phone] Ota: Dheeraj Garcia MD Notification: NOT REPORTED Normal [facility] Comment on above: Performed By: #### E RTPF #### [address] [address] Ota: Dheeraj Garcia MD O2 Device/Flow/% NOT REPORTED Normal [facility] Comment on above: Performed By: #### E RTPF #### [address] [address] Ota: Dheeraj Garcia MD Oxyhemoglobin NOT REPORTED Normal 95.0-98.0 [facility] Comment on above: Performed By: #### E RTPF #### [address] [address] Ota: Dheeraj Garcia MD Pco2 Adj'd for Temp. NOT REPORTED Normal 39-55 [facility] Comment on above: Performed By: #### E RTPF #### [address] [address] Ota: Dheeraj Garcia MD PEEP/CPAP NOT REPORTED Normal [facility] Comment on above: Performed By: #### E RTPF #### [address] [address] Ota: Dheeraj Garcia MD pH Adjst'd for Temp. NOT REPORTED Normal 7.320-7.420 M [facility] Comment on above: Performed By: #### E RTPF #### [address] [address] Ota: Dheeraj Garcia MD pO2 Adj'd for Temp. NOT REPORTED Normal 30-50 [facility] Comment on above: Performed By: #### E RTPF #### [address] [address] Ota: Dheeraj Garcia MD Positive Base Excess NOT REPORTED Normal 0.0-2.0 [facility] Comment on above: Performed By: #### E RTPF #### [address] [address] Ota: Dheeraj Garcia MD PSV NOT REPORTED Normal [facility] Comment on above: Performed By: #### E RTPF #### [address] [address] Ota: Dheeraj Garcia MD Pt. Position NOT REPORTED Normal [facility] Comment on above: Performed By: #### E RTPF #### [address] [address] Ota: Dheeraj Garcia MD Set Rate NOT REPORTED Normal [facility] Comment on above: Performed By: #### E RTPF #### [address] [address] Ota: Dheeraj Garcia MD Site Drawn NOT REPORTED Normal [facility] Comment on above: Performed By: #### E RTPF #### [address] [address] Ota: Dheeraj Garcia MD Staging: NOT REPORTED Normal [facility] Comment on above: Performed By: #### E RTPF #### [address] [address] Ota: Dheeraj Garcia MD Text for Respiratory NOT REPORTED Normal [facility] Comment on above: Performed By: #### E RTPF #### [address] [address] Ota: Dheeraj Garcia MD Total Hb NOT REPORTED Normal 12.0-16.0 [facility] Comment on above: Performed By: #### E RTPF #### [address] [address] Ota: Dheeraj Garcia MD Total Rate NOT REPORTED Normal [facility] Comment on above: Performed By: #### E RTPF #### [facility] [address] [place] [phone] Ota: Dheeraj Garcia MD VT NOT REPORTED Normal [facility] Comment on above: Performed By: #### E RTPF #### [facility] [address] [place] [id number] Ota: Dheeraj Garcia MD Type + Screenon 08-31-2020 Type + Screen Sample Expiration 09/02/2020,2359 Arm Band Number BE [id number] ABO/Rh(D) O POSITIVE Antibody Screen NEGATIVE Normal [facility] Comment on above: Performed By: #### T YS #### [address] [address] Ota: Dheeraj Garcia MD XR SHOULDER LEFT (MIN 2 VIEW S)on 08-31-2020 XR SHOULDER LEFT (MIN 2 VIEWS) EXAMINATION: TWO XRAY VIEWS OF THE LEFT SHOULDER 08/31/2020 8:25 am COMPARISON: None. HISTORY: ORDERING SYSTEM PROVIDED HISTORY: trauma TECHNOLOGIST PROVIDED HISTORY: trauma Reason for Exam: trauma Acuity: Acute Type of Exam: Initial FINDINGS: The bones and joints are unremarkable without definite fracture, dislocation, abnormal soft tissue calcification or bony destructive lesion IMPRESSION: Unremarkable three view left shoulder series Interpreted by: Delmis Adams MD Signed by: Delmis Adams MD 08/31/20 Final result Normal [facility] EXAMINATION: TWO XRAY VIEWS OF THE LEFT SHOULDER 08/31/2020 8:25 am COMPARISON: None. HISTORY: ORDERING SYSTEM PROVIDED HISTORY: trauma TECHNOLOGIST PROVIDED HISTORY: trauma Reason for Exam: trauma Acuity: Acute Type of Exam: Initial FINDINGS: The bones and joints are unremarkable without definite fracture, dislocation, abnormal soft tissue calcification or bony destructive lesion [facility] Unremarkable three view left shoulder series [facility] [place], [employer] Incoming Radiant Results From [employer] - 08/31/2020 8:46 AM EDT EXAMINATION: TWO XRAY VIEWS OF THE LEFT SHOULDER 08/31/2020 8:25 am COMPARISON: None. HISTORY: ORDERING SYSTEM PROVIDED HISTORY: trauma TECHNOLOGIST PROVIDED HISTORY: trauma Reason for Exam: trauma Acuity: Acute Type of Exam: Initial FINDINGS: The bones and joints are unremarkable without definite fracture, dislocation, abnormal soft tissue calcification or bony destructive lesion IMPRESSION: Unremarkable three view left shoulder series [place], [place] CT CERVICAL SPINE WO CONTRAS Ton 08-30-2020 No evidence of an acute fracture or traumatic malalignment involving the cervical spine [place], [place] EXAMINATION: CT OF THE CERVICAL SPINE WITHOUT CONTRAST 08/30/2020 9:33 pm TECHNIQUE: CT of the cervical spine was performed without the administration of intravenous contrast. Multiplanar reformatted images are provided for review. Dose modulation, iterative reconstruction, and/or weight based adjustment of the mA/kV was utilized to reduce the radiation dose to as low as reasonably achievable. COMPARISON: None. HISTORY: ORDERING SYSTEM PROVIDED HISTORY: trauma TECHNOLOGIST PROVIDED HISTORY: trauma Reason for Exam: trauma Acuity: Acute Type of Exam: Initial FINDINGS: BONES/ALIGNMENT: There is no acute fracture or traumatic malalignment. DEGENERATIVE CHANGES: Multilevel degenerative changes are present, most prominent at the C5-6 and C6-7 disc levels. SOFT TISSUES: There is no prevertebral soft tissue swelling. [place], [place], [place] Incoming Radiant Results From [employer] - 08/30/2020 11:01 PM EDT EXAMINATION: CT OF THE CERVICAL SPINE WITHOUT CONTRAST 08/30/2020 9:33 pm TECHNIQUE: CT of the cervical spine was performed without the administration of intravenous contrast. Multiplanar reformatted images are provided for review. Dose modulation, iterative reconstruction, and/or weight based adjustment of the mA/kV was utilized to reduce the radiation dose to as low as reasonably achievable. COMPARISON: None. HISTORY: ORDERING SYSTEM PROVIDED HISTORY: trauma TECHNOLOGIST PROVIDED HISTORY: trauma Reason for Exam: trauma Acuity: Acute Type of Exam: Initial FINDINGS: BONES/ALIGNMENT: There is no acute fracture or traumatic malalignment. DEGENERATIVE CHANGES: Multilevel degenerative changes are present, most prominent at the C5-6 and C6-7 disc levels. SOFT TISSUES: There is no prevertebral soft tissue swelling. IMPRESSION: No evidence of an acute fracture or traumatic malalignment involving the cervical spine [place], [place] CT CHEST ABDOMEN PELVIS W CO NTRASTon 08-30-2020 EXAMINATION: CT OF THE CHEST, ABDOMEN, AND PELVIS WITH CONTRAST 08/30/2020 10:31 pm TECHNIQUE: CT of the chest, abdomen and pelvis was performed with the administration of intravenous contrast. Multiplanar reformatted images are provided for review. Dose modulation, iterative reconstruction, and/or weight based adjustment of the mA/kV was utilized to reduce the radiation dose to as low as reasonably achievable. COMPARISON: None HISTORY: ORDERING SYSTEM PROVIDED HISTORY: trauma TECHNOLOGIST PROVIDED HISTORY: trauma Reason for Exam: trauma Acuity: Acute Type of Exam: Initial FINDINGS: Chest: Mediastinum: Heart size is normal without pericardial effusion. Coronary artery atherosclerosis. The thoracic aorta is normal in caliber. There is dilation of the main pulmonary artery to 3.8 cm. No mediastinal hematoma. Lungs/pleura: No pulmonary contusion. No pleural effusion or pneumothorax. Soft Tissues/Bones: Prior sternotomy. No acute osseous abnormality. Abdomen/Pelvis: Organs: The liver is diffusely hypoattenuating with calcified granulomas. No cholelithiasis. There is heterogeneous enhancement of the spleen, likely due to contrast timing. No acute abnormality within the pancreas, adrenal glands, or kidneys. 1.6 cm left upper pole renal lesion is indeterminate. GI/Bowel: Stomach is partially distended. The small bowel is nondilated. The colon is normal in caliber. Pelvis: Bladder is partially collapsed around a Ac catheter. Uterus is absent. Peritoneum/Retroperi toneum: No ascites or pneumoperitoneum. Atherosclerosis of the nondilated abdominal aorta. Bones/Soft Tissues: No acute osseous abnormality. [facility] [place], [place], [place] Incoming Radiant Results From [employer] - 08/30/2020 11:25 PM EDT EXAMINATION: CT OF THE CHEST, ABDOMEN, AND PELVIS WITH CONTRAST 08/30/2020 10:31 pm TECHNIQUE: CT of the chest, abdomen and pelvis was performed with the administration of intravenous contrast. Multiplanar reformatted images are provided for review. Dose modulation, iterative reconstruction, and/or weight based adjustment of the mA/kV was utilized to reduce the radiation dose to as low as reasonably achievable. COMPARISON: None HISTORY: ORDERING SYSTEM PROVIDED HISTORY: trauma TECHNOLOGIST PROVIDED HISTORY: trauma Reason for Exam: trauma Acuity: Acute Type of Exam: Initial FINDINGS: Chest: Mediastinum: Heart size is normal without pericardial effusion. Coronary artery atherosclerosis. The thoracic aorta is normal in caliber. There is dilation of the main pulmonary artery to 3.8 cm. No mediastinal hematoma. Lungs/pleura: No pulmonary contusion. No pleural effusion or pneumothorax. Soft Tissues/Bones: Prior sternotomy. No acute osseous abnormality. Abdomen/Pelvis: Organs: The liver is diffusely hypoattenuating with calcified granulomas. No cholelithiasis. There is heterogeneous enhancement of the spleen, likely due to contrast timing. No acute abnormality within the pancreas, adrenal glands, or kidneys. 1.6 cm left upper pole renal lesion is indeterminate. GI/Bowel: Stomach is partially distended. The small bowel is nondilated. The colon is normal in caliber. Pelvis: Bladder is partially collapsed around a Ac catheter. Uterus is absent. Peritoneum/Retroperi toneum: No ascites or pneumoperitoneum. Atherosclerosis of the nondilated abdominal aorta. Bones/Soft Tissues: No acute osseous abnormality. IMPRESSION: 1. No acute or traumatic intrathoracic abnormality. 2. No acute or traumatic intra-abdominal abnormality. 3. Dilation of the main pulmonary artery, suggestive of pulmonary artery hypertension. 4. Hepatic steatosis. 5. 1.6 cm left upper pole renal lesion is indeterminate, possibly a cyst. Renal protocol CT or MRI could provide further information as clinically indicated. [place], [place] 1. No acute or traumatic intrathoracic abnormality. 2. No acute or traumatic intra-abdominal abnormality. 3. Dilation of the main pulmonary artery, suggestive of pulmonary artery hypertension. 4. Hepatic steatosis. 5. 1.6 cm left upper pole renal lesion is indeterminate, possibly a cyst. Renal protocol CT or MRI could provide further information as clinically indicated. [place], [place] CT LUMBAR SPINE TRAUMA RECON STRUCTIONon 08-30-2020 EXAMINATION: CT OF THE LUMBAR SPINE WITHOUT CONTRAST 08/30/2020 TECHNIQUE: CT of the lumbar spine was performed without the administration of intravenous contrast. Multiplanar reformatted images are provided for review. Dose modulation, iterative reconstruction, and/or weight based adjustment of the mA/kV was utilized to reduce the radiation dose to as low as reasonably achievable. COMPARISON: None HISTORY: ORDERING SYSTEM PROVIDED HISTORY: TRAUMA TECHNOLOGIST PROVIDED HISTORY: trauma Reason for Exam: trauma Acuity: Acute Type of Exam: Initial FINDINGS: BONES/ALIGNMENT: There is normal alignment of the spine. The vertebral body heights are maintained. No osseous destructive lesion is seen. DEGENERATIVE CHANGES: No significant degenerative changes of the lumbar spine. SOFT TISSUES/RETROPERITON EUM: No paraspinal mass is seen. Cortical cyst formation is seen on the upper pole of the left kidney. [place], [place], [place] Incoming Radiant Results From [employer] - 08/30/2020 11:26 PM EDT EXAMINATION: CT OF THE LUMBAR SPINE WITHOUT CONTRAST 08/30/2020 TECHNIQUE: CT of the lumbar spine was performed without the administration of intravenous contrast. Multiplanar reformatted images are provided for review. Dose modulation, iterative reconstruction, and/or weight based adjustment of the mA/kV was utilized to reduce the radiation dose to as low as reasonably achievable. COMPARISON: None HISTORY: ORDERING SYSTEM PROVIDED HISTORY: TRAUMA TECHNOLOGIST PROVIDED HISTORY: trauma Reason for Exam: trauma Acuity: Acute Type of Exam: Initial FINDINGS: BONES/ALIGNMENT: There is normal alignment of the spine. The vertebral body heights are maintained. No osseous destructive lesion is seen. DEGENERATIVE CHANGES: No significant degenerative changes of the lumbar spine. SOFT TISSUES/RETROPERITON EUM: No paraspinal mass is seen. Cortical cyst formation is seen on the upper pole of the left kidney. IMPRESSION: No evidence of an acute fracture or traumatic malalignment involving the lumbar spine. [place], [place] No evidence of an acute fracture or traumatic malalignment involving the lumbar spine. [place], [place] THORACIC SPINE TRAUMA REC ONSTRUCTIONon 08-30-2020 EXAMINATION: CT OF THE THORACIC SPINE WITHOUT CONTRAST 08/30/2020 10:31 pm: TECHNIQUE: CT of the thoracic spine was performed without the administration of intravenous contrast. Multiplanar reformatted images are provided for review. Dose modulation, iterative reconstruction, and/or weight based adjustment of the mA/kV was utilized to reduce the radiation dose to as low as reasonably achievable. COMPARISON: None. HISTORY: ORDERING SYSTEM PROVIDED HISTORY: trauma TECHNOLOGIST PROVIDED HISTORY: trauma Reason for Exam: trauma Acuity: Acute Type of Exam: Initial FINDINGS: BONES/ALIGNMENT: There is normal alignment of the spine. The vertebral body heights are maintained. No osseous destructive lesion is seen. DEGENERATIVE CHANGES: No gross spinal canal stenosis or bony neural foraminal narrowing of the thoracic spine. Osseous fusion across the anterior aspect of the T5-T6 disc level is noted. SOFT TISSUES: No paraspinal mass is seen. Dependent changes are seen within the lung bases. No pneumothorax is noted. [place], [place], [place] Incoming Radiant Results From [employer] - 08/30/2020 11:29 PM EDT EXAMINATION: CT OF THE THORACIC SPINE WITHOUT CONTRAST 08/30/2020 10:31 pm: TECHNIQUE: CT of the thoracic spine was performed without the administration of intravenous contrast. Multiplanar reformatted images are provided for review. Dose modulation, iterative reconstruction, and/or weight based adjustment of the mA/kV was utilized to reduce the radiation dose to as low as reasonably achievable. COMPARISON: None. HISTORY: ORDERING SYSTEM PROVIDED HISTORY: trauma TECHNOLOGIST PROVIDED HISTORY: trauma Reason for Exam: trauma Acuity: Acute Type of Exam: Initial FINDINGS: BONES/ALIGNMENT: There is normal alignment of the spine. The vertebral body heights are maintained. No osseous destructive lesion is seen. DEGENERATIVE CHANGES: No gross spinal canal stenosis or bony neural foraminal narrowing of the thoracic spine. Osseous fusion across the anterior aspect of the T5-T6 disc level is noted. SOFT TISSUES: No paraspinal mass is seen. Dependent changes are seen within the lung bases. No pneumothorax is noted. IMPRESSION: No evidence of an acute fracture or traumatic malalignment involving the thoracic spine [place] No evidence of an acute fracture or traumatic malalignment involving the thoracic spine [place] CTA HEAD NECK W CONTRASTon 1 Unremarkable CTA of the neck. 50% stenosis left intracranial ICA, otherwise unremarkable CTA head. [place], [place], Rust Incoming Radiant Results From [facility] - 08/30/2020 11:48 PM EDT EXAMINATION: CTA OF THE HEAD AND NECK WITH CONTRAST 08/30/2020 10:49 pm: TECHNIQUE: CTA of the head and neck was performed with the administration of intravenous contrast. Multiplanar reformatted images are provided for review. MIP images are provided for review. Stenosis of the internal carotid arteries measured using NASCET criteria. Dose modulation, iterative reconstruction, and/or weight based adjustment of the mA/kV was utilized to reduce the radiation dose to as low as reasonably achievable. 3D reconstructed images were performed on a separate workstation and provided for review. COMPARISON: None. HISTORY: ORDERING SYSTEM PROVIDED HISTORY: left arm and face weakness AMS TECHNOLOGIST PROVIDED HISTORY: left arm and face weakness AMS Reason for Exam: stroke Acuity: Unknown Type of Exam: Unknown FINDINGS: CTA NECK: AORTIC ARCH/ARCH VESSELS: No dissection or arterial injury. No significant stenosis of the brachiocephalic or subclavian arteries. CAROTID ARTERIES: No dissection, arterial injury, or hemodynamically significant stenosis by NASCET criteria. VERTEBRAL ARTERIES: No dissection, arterial injury, or significant stenosis. SOFT TISSUES: The lung apices are clear. No cervical or superior mediastinal lymphadenopathy. The larynx and pharynx are unremarkable. No acute abnormality of the salivary and thyroid glands. BONES: No acute osseous abnormality. CTA HEAD: ANTERIOR CIRCULATION: 50% stenosis of left paraclinoid segment ICA. No significant stenosis of the right intracranial internal carotid, either anterior cerebral, or either middle cerebral arteries. No aneurysm. POSTERIOR CIRCULATION: supply on the right. No significant stenosis of the vertebral, basilar, or posterior cerebral arteries. No aneurysm. OTHER: No dural venous sinus thrombosis on this non-dedicated study. BRAIN: No mass effect or midline shift. No extra-axial fluid collection. The durán-white differentiation is maintained. IMPRESSION: Unremarkable CTA of the neck. 50% stenosis left intracranial ICA, otherwise unremarkable CTA head. [place] EXAMINATION: CTA OF THE HEAD AND NECK WITH CONTRAST 08/30/2020 10:49 pm: TECHNIQUE: CTA of the head and neck was performed with the administration of intravenous contrast. Multiplanar reformatted images are provided for review. MIP images are provided for review. Stenosis of the internal carotid arteries measured using NASCET criteria. Dose modulation, iterative reconstruction, and/or weight based adjustment of the mA/kV was utilized to reduce the radiation dose to as low as reasonably achievable. 3D reconstructed images were performed on a separate workstation and provided for review. COMPARISON: None. HISTORY: ORDERING SYSTEM PROVIDED HISTORY: left arm and face weakness AMS TECHNOLOGIST PROVIDED HISTORY: left arm and face weakness AMS Reason for Exam: stroke Acuity: Unknown Type of Exam: Unknown FINDINGS: CTA NECK: AORTIC ARCH/ARCH VESSELS: No dissection or arterial injury. No significant stenosis of the brachiocephalic or subclavian arteries. CAROTID ARTERIES: No dissection, arterial injury, or hemodynamically significant stenosis by NASCET criteria. VERTEBRAL ARTERIES: No dissection, arterial injury, or significant stenosis. SOFT TISSUES: The lung apices are clear. No cervical or superior mediastinal lymphadenopathy. The larynx and pharynx are unremarkable. No acute abnormality of the salivary and thyroid glands. BONES: No acute osseous abnormality. CTA HEAD: ANTERIOR CIRCULATION: 50% stenosis of left paraclinoid segment ICA. No significant stenosis of the right intracranial internal carotid, either anterior cerebral, or either middle cerebral arteries. No aneurysm. POSTERIOR CIRCULATION: supply on the right. No significant stenosis of the vertebral, basilar, or posterior cerebral arteries. No aneurysm. OTHER: No dural venous sinus thrombosis on this non-dedicated study. BRAIN: No mass effect or midline shift. No extra-axial fluid collection. The durán-white differentiation is maintained. [place], [place] TYPE AND SCREENon 08-30-2020 ABO/Rh Positive [place], [place] Arm Band Number BE [id number] [place], [place] Expiration Date 09/02/2020,235 [place], [place] Trauma Panelon 08-30-2020 Hubert Test NOT REPORTED [place] Anion gap [Moles/Vol] 10 mmol/L 9 - 17 mmol/L [place] aPTT Coag (Bld) [Time] 37.0 s [place] aPTT Coag (Bld) [Time] 24.4 s [place] Comment on above: IV Heparin Therapy Range: 48.6-77.8 Blood Bank Specimen BILL FOR SERVICES PERFORMED [place] Carboxyhemoglobin 2.2 % 0 - 5 % [place], [place] Comment on above: Reference Range: Non-Smokers 0-2% Average Smoker 2-4% Heavy Smoker <10% Chloride [Moles/Vol] 106 mmol/L 98 - 10 7 mmol/L [place] CO2 [Moles/Vol] 23 mmol/L 20 - 31 mmol/L [place] Creatinine [Mass/Vol] 0.62 mg/dL 0.5 - 0.9 mg/dL [place] Erythrocyte distribution width (RBC) [Ratio] 14.1 % 11.8 - 14.4 % [place] Ethanol [Mass/Vol] mg/dL <10 mg/dL [place] Ethanol percent <0.010 <0.010 % [place] FIO2 INFORMATION NOT PROVIDED [place] GFR >60 >60 mL/min [place] GFR Non- >60 >60 mL/min [place] GFR/1.73 sq M predicted among non-blacks MDRD (S/P/Bld) [Vol rate/Area] [place], [place] Comment on above: Average GFR for 60-6 9 years old: 85 mL/min/1.73sq m Chronic Kidney Disease: <60 mL/min/1.73sq m Kidney failure: <15 mL/min/1.73sq m eGFR calculated using average adult body mass. Additional eGFR calculator available at: http://www.[employer]/multiple_crcl_2012.htm GFR/1.73 sq M predicted among non-blacks MDRD (S/P/Bld) [Vol rate/Area] NOT REPORTED [place] Glucose [Mass/Vol] 186 mg/dL High 70 - 99 mg/dL [place] hCG Qual CANCELLED PER ED NEGATIVE [place] HCO3, Venous 23.6 mmol/L Low 24 - 30 mmol/L [place] Hematocrit (Bld) [Volume fraction] 38.2 % 36.3 - 47.1 % [place] Hemoglobin (Bld) [Mass/Vol] 12.3 g/dL 11.9 - 15.1 g/dL [place] INR Coag (PPP) [Relative time] 1.0 {INR} [place] Comment on above: Therapeutic Range: Moderate Anticoagulant Intensity: INR = 2.0-3.0 High Anticoagulant Intensity: INR = 2.5-3.5 Interpretation and review of laboratory results Abnormal [place] MCH (RBC) [Entitic mass] 28.9 pg 25.2 - 33.5 pg [place] MCHC (RBC) [Mass/Vol] 32.2 g/dL 28.4 - 34.8 g/dL [place] MCV (RBC) [Entitic vol] 89.7 fL 82.6 - 102.9 fL [place] Methemoglobin NOT REPORTED 0 - 1.5 % [place] Mode NOT REPORTED [place] Negative Base Excess, Christo 0.8 mmol/L 0 - 2 mmol/L [place] NOTIFICATION NOT REPORTED [place], [place] NOTIFICATION TIME NOT REPORTED [place] O2 Device/Flow/% NOT REPORTED [place] Oxygen saturation in Blood 98.6 % High 60 - 85 % [place] Oxyhemoglobin NOT REPORTED 95 - 98 % [place] pCO2, Christo 40.6 [place] pCO2, Christo, Temp Adj NOT REPORTED [place], [place] Peep/Cpap NOT REPORTED [place] pH, Christo 7.383 [place] pH, Christo, Temp Adj NOT REPORTED [place] Platelet mean volume (Bld) [Entitic vol] 10.6 fL 8.1 - 13.5 fL [place] Platelets (Bld) [#/Vol] 268 10*3/uL [place] pO2, Christo 143.0 High [place] pO2, Christo, Temp Adj NOT REPORTED [place], [place] Positive Base Excess, Christo NOT REPORTED 0 - 2 mmol/L [place] Potassium [Moles/Vol] 3.5 mmol/L Low 3.7 - 5.3 mmol/L [place] PSV NOT REPORTED [place] PT Coag (PPP) [Time] 10.5 s [place] Pt. Position NOT REPORTED [place] RBC (Bld) [#/Vol] 4.26 10*6/uL 3.95 - 5.1 1 m/uL [place] Sample Site NOT REPORTED [facility] [place] Set Rate NOT REPORTED [place] Sodium [Moles/Vol] 139 mmol/L 135 - 144 mmol/L [place] Text for Respiratory NOT REPORTED [place] Total Hb NOT REPORTED 12 - 16 g/dl [place] Total Rate NOT REPORTED [place] Urea nitrogen [Mass/Vol] 11 mg/dL 8 - 23 mg/dL [place] VT NOT REPORTED [place] WBC (Bld) [#/Vol] 0.0 10*3/uL 0.0 per 10 0 WBC [facility] WBC (Bld) [#/Vol] 8.7 10*3/uL [facility] Protein mass conc HNO ID: [id number] Author: Kamilah Jean) Kyle Service: ? Author Type: Physician Truck Greaser Type: Progress Notes Filed: 03/25/2019 10:38 AM Note Text: [facility] NOTE NAME: SHEMAR AVILA NO.: [id number] DATE OF SERVICE: 03/24/2019 [facility] DATE OF : 1955 CHIEF COMPLAINT: Skilled followup visit for discharge. Also complains of a cyst on her back. SUBJECTIVE FINDINGS: The patient was seen in her room today at [facility]. She is tentatively scheduled for discharge to home on March 24, 2019. She is scheduled to undergo home evaluation tomorrow. She reports that she resides in a trailer with her . Overall, she is feeling well and ambulating independently with a walker. She is doing well with her ADLs. She has slight headaches but reports that they are tolerable. She reports a chronic sebaceous cyst of her upper back, which is particularly painful and bothersome to her today. Her blood sugars have been fairly well controlled. She has had no significant anxiety. REVIEW OF SYSTEMS: Please see above. MEDICATIONS: Medications were reviewed in the detention records. [facility] report was run today and the patient was given prescription for 1 week supplies of clonazepam and tramadol for discharge. PHYSICAL EXAMINATION: Temp 97.9, pulse 82, respirations 18, and BP 128/74. Exam revealed a very pleasant, chronically ill-appearing woman who is able to ambulate with her walker without difficulty. Skin revealed an approximately 2 x 2 cm enlarged sebaceous cyst at the right mid back. This was manually expressed for a very moderate amount of thick, white discharge. The area was cleansed and a dry, sterile dressing was applied. HEENT: Mucosa moist. Neck: No JVD. Heart: Regular rate and rhythm. Lungs: Clear. Abdomen: Positive bowel sounds, soft. No tenderness. Lower extremities: No edema or calf tenderness. The patient on neurological exam did have some mild left-sided weakness. ASSESSMENT AND PLAN: 1. Sebaceous cyst. The cyst was manually expressed and area cleansed. This will need follow up as an outpatient. 2. Recent stroke with headache-type syndrome. She is utilizing tramadol and acetaminophen as well as antiplatelet therapy with Plavix and aspirin and on a statin for secondary prevention. She has done very well with therapy. She is okay for discharge to home on March 26, 2019, where she resides with her . She is undergoing home evaluation tomorrow and we will address any additional equipment needs at that time. 3. Anxiety with depression. She remains on Cymbalta and clonazepam, which is effective for her. 4. Type 2 diabetes mellitus. Blood sugars are well controlled on current regimen of metformin and glimepiride. 5. Coronary artery disease with previous coronary stent. Continue antiplatelet therapy. This can be followed as an outpatient. 6. Hypertension. Continue Coreg. 7. Gastroesophageal reflux disease. Continue PPI. Greater than 31 minutes spent in the discharge process on this patient. DICTATED BY: Kamilah Wright PA-C PG/Niharika JOB# [id number] cc:[facility] PROGRESSon 03-22-2019 Protein mass conc HNO ID: [id number] Author: Kamilah Wright (Pa) Service: ? Author Type: Physician Truck Greaser Type: Progress Notes Filed: 03/23/2019 11:37 AM Note Text: [facility] NOTE NAME: SHEMAR AVILA NO.: [id number] DATE OF SERVICE: 03/22/2019 [facility] DATE OF : 1955 CHIEF COMPLAINT: Skilled followup visit for stroke; today complaining of heartburn. SUBJECTIVE FINDINGS: The patient was seen in the therapy department at [facility]. She reports that overall she is feeling well. She had a slight headache this morning, but reported that it was tolerable. Yesterday, twice after taking her medications, she reported some heartburn-like discomfort in the chest. This resolved after drinking more water. She has not experienced this today. She is presently on pantoprazole daily for GERD. She does report some dysphagia since her stroke but states that this is not new. She has had no fever or chills. Blood sugar control has been fair on her present regimen with blood sugars in the high 100s to low 200s. REVIEW OF SYSTEMS: See above. MEDICATIONS: Reviewed in the detention record. CODE STATUS: Full code. PHYSICAL EXAM: Temp 98, pulse 76, respirations 18, and BP 116/72. Examination revealed a pleasant, chronically ill-appearing woman, sitting in a wheelchair in therapy, in no distress. She was at her baseline. She had a very slight left nasolabial droop and left-sided weakness. Skin: Dry. HEENT: Mucosa moist. Pharynx: No erythema. Neck: No adenopathy. Heart: Revealed a regular rate and rhythm. Lungs: Clear. Abdomen: Positive bowel sounds, soft. No tenderness. Lower extremities: No edema or calf tenderness. ASSESSMENT AND PLAN: 1. Heartburn. We will treat with Maalox or Mylanta as needed. 2. Recent stroke with headache-type syndrome. She is utilizing tramadol and acetaminophen as needed. She will continue intense physical and occupational therapy. She remains on antiplatelet therapy with Plavix and aspirin and also on a statin for secondary prevention. She is scheduled to undergo a home evaluation later this week. 3. Anxiety with depression. She reports that she has a lot on her mind with recent deaths in her family. She will remain on glimepiride. If she is still in the facility, she will also be seen by Psychiatry when he comes in. 4. Type 2 diabetes mellitus. Fair control on metformin and glimepiride. We will continue to monitor. 5. Coronary artery disease with previous coronary stent. Continue antiplatelet therapy and monitor. She is not having any anginal symptoms. 6. Hypertension. Blood pressure well controlled on Coreg. 7. Gastroesophageal reflux disease. We will continue PPI and monitor closely. DICTATED BY: Kamilah Wright PA-C PG/Niharika JOB# [id number] cc:[facility] PROGRESSon 03-19-2019 Protein mass conc HNO ID: [id number] Author: Kamilah Jean) Kyle Service: ? Author Type: Physician Truck Greaser Type: Progress Notes Filed: 03/22/2019 12:17 PM Note Text: [facility] NOTE NAME: SHEMAR AVILA NO.: [id number] DATE OF SERVICE: 03/19/2019 [facility] DATE OF : 1955 CHIEF COMPLAINT: Follow up for stroke and weakness. SUBJECTIVE FINDINGS: The patient was seen in her room at [facility]. She is complaining of a headache today. She states that she did not sleep well last night and relates this to not receiving her clonazepam to help her sleep. She is doing well with therapy and ambulating with the use of a walker. She reports that her strength is improving on the left side. She seems to be eating and drinking well. Her fingerstick blood sugars have not been checked. However, on recent lab work from 2 days ago was noted to have some hyperglycemia with a blood sugar of 225. She denies any chest pain or dyspnea. REVIEW OF SYSTEMS: See above. MEDICATIONS: Reviewed in the detention record. CODE STATUS: Full code. PHYSICAL EXAM: Temp 97. 4, pulse 66, respirations 18, and BP 117/78. Examination revealed an obese, elderly woman who was alert. She was lying in bed with the lights off and her eyes closed. She appeared to be somewhat uncomfortable. Skin: Slightly pale. HEENT: Mucosa moist. Neck: Supple. Heart: Regular rate and rhythm. Lungs: Clear. Abdomen: Positive bowel sounds, soft. Extremities: No significant edema. Neuro exam revealed a very slight left facial droop, also mild weakness of the left upper and left lower extremity, which was unchanged. ASSESSMENT AND PLAN: 1. Recent stroke. She remains on antiplatelet therapy with Plavix and aspirin. She will receive intense physical and occupational therapy as well as speech therapy. She hopes to return to her home in the near future. 2. Hyperlipidemia. We will continue statin. 3. Depression. She remains on duloxetine. She utilizes clonazepam at h.s. She will be followed also by Psychiatry. 4. Type 2 diabetes mellitus. Blood sugar well controlled on metformin and glimepiride. If fact, she is having some hyperglycemia. We will check fingerstick blood sugars b.i.d. 5. Coronary artery disease without angina. We will continue antiplatelet therapy and Isordil. 6. Hypertension. Continue carvedilol. Blood pressure controlled. 7. Gastroesophageal reflux disease. We will continue pantoprazole and monitor closely. DICTATED BY: Kamilah Wright PA-C PG/Niharika JOB# [id number] cc:[facility] PROGRESSon 03-17-2019 Protein mass conc HNO ID: [id number] Author: Kamilah Wright (Pa) Service: ? Author Type: Physician Truck Greaser Type: Progress Notes Filed: 03/18/2019 10:28 AM Note Text: [facility] NOTE NAME: SHEMAR AVILA NO.: [id number] DATE OF SERVICE: 03/17/2019 [facility] DATE OF : 1955 CHIEF COMPLAINT: Follow up for stroke and weakness. SUBJECTIVE FINDINGS: The patient was seen in the therapy department at [facility]. She is doing very well with therapy and ambulating with the use of a walker. She reports her strength is improving on the left side. She denies any headaches today. Her speech is improving. She relates that she is not particularly anxious at this time. She is eating and drinking well. Her blood sugars have been well controlled. She denies any chest pain. REVIEW OF SYSTEMS: See above. MEDICATIONS: Reviewed in the detention record. CODE STATUS: Full code. PHYSICAL EXAM: Temp 98, pulse 72, respirations 18, BP 120/60, and pulse ox 97%. Exam revealed an obese, elderly woman who is alert and very appropriate. She was quite pleasant. Skin slightly pale. No lesions. HEENT: Very slight left facial droop. Mucosa moist. Neck: No JVD. Heart: Regular rate and rhythm. Lungs: Clear. Abdomen: Obese. Positive bowel sounds, soft. Extremities: No significant edema. ASSESSMENT AND PLAN: 1. Possible recent stroke. She remains on antiplatelet therapy with Plavix and aspirin. She will receive intense physical occupational therapy and speech therapy. 2. Hyperlipidemia. We will continue statin. 3. Depression. She remains on clonazepam and duloxetine. She will be followed also by Psychiatry. 4. Type 2 diabetes mellitus. Blood sugar well controlled on metformin. Continue to monitor. 5. History of coronary artery disease without angina. Continue antiplatelet therapy and isosorbide. 6. Hypertension. Blood pressure well controlled on carvedilol. 7. Gastroesophageal reflux disease. We will change omeprazole to pantoprazole due to potential interaction with Plavix. We will continue to follow closely. She hopes to return home, where she resides with her . DICTATED BY: Kamilah Wright PA-C PG/Niharika JOB# [id number] cc:[facility] PROGRESSon 03-15-2019 Protein mass conc HNO ID: [id number] Author: Kyra Butler Service: ? Author Type: Physician Type: Progress Notes Filed: 03/18/2019 5:07 PM Note Text: [facility] DETENTION NOTE NAME: YEYO AVILA COLEEN NO.: [id number] DATE OF SERVICE: 03/15/2019 [facility] DATE OF : 1955 New Patient History and Physical HISTORY OF PRESENT ILLNESS: The patient is a 63-year-old female was admitted to us from [facility] in [place] with the diagnoses of complicated headache syndrome and major depressive disorder with stroke-like symptoms, chronic migraines, diabetes mellitus type 2, hypertension, GERD, history of depression and anxiety, previous ascending aortic aneurysm repair in 2010, anxiety disorder, surgically treated bladder cancer, COPD with smoking history, CAD with previous coronary stent placement x2, decreased urine, hyperlipidemia, obesity, remote hysterectomy and appendectomy, status post Achilles tendon rupture repair, and generalized weakness. She did initially presented to an outside hospital with the headache along with new onset left-sided numbness, tingling, and weakness along with slurred speech and left facial droop. She did undergo CT scan of the brain, which was negative. She was then transferred to [facility] where repeat CT scan along with MRI of the brain as well as MRI of the orbits were negative. She was seen in consultation by the neurology service. There is no evidence of acute stroke. She was also seen by the psychiatry service for her recurrent major depression. It was felt that she had developed stroke-like symptoms related to her complicated headache and major depression. Her medications were adjusted, her condition was stabilized, and she is now admitted to our facility for continued therapy prior to returning back to her home where she lives with her . REVIEW OF SYSTEMS: She is currently sitting up in her room. She is alert and oriented. She states she is feeling much better, though she still does have some left-sided head pain / headaches as well as left-sided weakness. She denies any shortness of breath. She does have a history of COPD, which has been stable. No recent pneumonias. She does have a CAD and previous coronary stent placement. She did undergo ascending aortic aneurysm in 2010. She is not aware of any actual heart attacks. She has been experiencing chest pain related to anxiety. No pacemakers or heart failure. She does have hypertension and hyperlipidemia. Her appetite has been improving. No bleeding ulcers, hepatitis, or melena. No prior past history of strokes or seizures. She is a diabetic type 2 with diabetic neuropathy. No bleeding problems or blood clots or any recent fevers, chills, or documented fall. Rest of system review is negative. FAMILY HISTORY: Positive for her mother with cancer. SOCIAL / FUNCTIONAL HISTORY: The patient stopped smoking 5 years ago. No history of alcohol abuse. Once again, she has been living at home with her . MEDICATIONS: Albuterol inhaler p.r.n., aspirin 325 mg daily, clonazepam 0.5 mg at bedtime, Coreg 25 mg b.i.d., Flexeril 10 mg t.i.d., Cymbalta 30 mg daily, fluticasone / albuterol inhaler b.i.d., glimepiride 4 mg at bedtime, isosorbide mononitrate 30 mg daily, magnesium oxide 400 mg daily, metformin 1000 mg b.i.d., omeprazole 40 mg daily, Plavix 75 mg daily, simvastatin 40 mg at bedtime, and tizanidine p.r.n. ALLERGIES: ATORVASTATIN, LISINOPRIL, TOPIRAMATE, IODINATED DIAGNOSTIC AGENTS, STRAWBERRIES, BLUE DYE, CATS / FELINE PRODUCTS, AND IODINE. EXAMINATION: Afebrile, vital signs stable. She is in no distress. She appears chronically ill. HEENT: Extraocular movements intact. Sclerae nonicteric. Ears intact. Lungs are clear. Heart: Regular. Abdomen: Soft, nontender. Bowel sounds present. Extremities: With trace edema. No calf tenderness or palpable cords. No ischemia or cyanosis. She does have left-sided weakness. IMPRESSION: 1. Acute stroke-like symptoms thought to be related to complicated headache along with recurrent major depression and anxiety - evaluation in the hospital negative for acute stroke. We will continue to monitor her neurologic status and symptoms closely. She is requesting stronger pain medication for her headache. I will try Ultram. She will follow up with Psychiatry and Neurology services outpatient as indicated. 2. Coronary artery disease with previous coronary stent placement - cardiac status appears stable. Maintain current cardiac medications. Monitor her cardiac status closely. 3. Hypertension - monitor blood pressure closely and make adjustment as needed. 4. Diabetes mellitus type 2 - maintain current diabetic regimen. Monitor blood sugars closely and make adjustment as needed. 5. Functional assessment - she does have generalized weakness including left-sided hemiparesis. She will be receiving aggressive rehabilitation services for overall strengthening and conditioning. Overall condition and prognosis is somewhat guarded. We will obtain followup laboratories including CBC and BMP. She will be returning home upon completion of therapy. DICTATED BY: MD NELIDA Larose/Niharika JOB# [id number] cc:[facility] Vital Signs Date Time Vital Sign Value Performing Clinician Facility 07-13-2023 11:32-0400 Body temperature 97.88 [degF] [facility] 07-13-2023 11:32-0400 Diastolic blood pressure 85 mm[Hg] [facility] 07-13-2023 11:32-0400 Heart rate 76 /min [facility] 07-13-2023 11:32-0400 Respiratory rate 18 /min [facility] 07-13-2023 11:32-0400 SaO2% (BldA) [Mass fraction] 97 % [facility] 07-13-2023 11:32-0400 Systolic blood pressure 147 mm[Hg] Zaki Muñoz [facility] 02-24-2023 13:08-0400 Promise to Return Ronobir FELICIA [facility] 02-24-2023 12:00-0400 Hourly Rounding Ronobir FELICIA [facility] 02-24-2023 12:00-0400 Promise to Return Ronobir FELICIA [facility] 02-24-2023 11:56-0400 Heart rate 62 /min Ronobir FELICIA [facility] 02-24-2023 11:56-0400 SaO2% (BldA) [Mass fraction] 97 % Ronobir FELICIA [facility] 02-24-2023 11:54-0400 Diastolic blood pressure 67 mm[Hg] Ronobir FELICIA [facility] 02-24-2023 11:54-0400 Mean blood pressure 88 mm[Hg] Ronobir FELICIA [facility] 02-24-2023 11:54-0400 Systolic blood pressure 130 mm[Hg] Ronobir FELICIA [facility] 02-24-2023 11:54-0400 Body temperature 97.88 [degF] Ronobir FELICIA [facility] 02-24-2023 11:11-0400 Hourly Rounding Ronobir FELICIA [facility] 02-24-2023 11:11-0400 Promise to Return Ronobir FELICIA [facility] 02-24-2023 11:00-0400 Hourly Rounding Ronobir FELICIA [facility] 02-24-2023 07:50-0400 SaO2% (BldA) [Mass fraction] 98 % Ronobir FELICIA [facility] 02-24-2023 07:43-0400 Heart rate 61 /min Ronobir FELICIA [facility] 02-24-2023 07:43-0400 SaO2% (BldA) [Mass fraction] 98 % Ronobir FELICIA [facility] 02-24-2023 07:41-0400 Body temperature 98.06 [degF] Ronobir FELICIA [facility] 02-24-2023 07:41-0400 Diastolic blood pressure 74 mm[Hg] Ronobir FELICIA [facility] 02-24-2023 07:41-0400 Mean blood pressure 92 mm[Hg] Ronobir FELICIA [facility] 02-24-2023 07:41-0400 Systolic blood pressure 128 mm[Hg] Ronobir FELICIA [facility] 02-24-2023 03:47-0400 Blood Pressure Location Ronobir FELICIA [facility] 02-24-2023 03:47-0400 Body temperature 97.52 [degF] Ronobir FELICIA [facility] 02-24-2023 03:47-0400 Diastolic blood pressure 70 mm[Hg] Ronobir FELICIA [facility] 02-24-2023 03:47-0400 Heart rate 57 /min Ronobir FELICIA [facility] 02-24-2023 03:47-0400 Mean blood pressure 87 mm[Hg] Ronobir FELICIA [facility] 02-24-2023 03:47-0400 Respiratory rate 17 /min Ronobir FELICIA [facility] 02-24-2023 03:47-0400 Systolic blood pressure 120 mm[Hg] Ronobir FELICIA [facility] 02-24-2023 03:06-0400 Mean blood pressure 77 mm[Hg] Ronobir FELICIA [facility] 02-24-2023 03:06-0400 Respiratory rate 16 /min Ronobir FELICIA [facility] 02-24-2023 02:49-0400 Respiratory rate 16 /min Ronobir FELICIA [facility] 02-24-2023 02:04-0400 Body temperature 96.8 [degF] Ronobir FELICIA [facility] 02-24-2023 02:04-0400 Mean blood pressure 68 mm[Hg] Ronobir FELICIA [facility] 02-24-2023 01:09-0400 Body temperature 96.62 [degF] Ronobir FELICIA [facility] 02-24-2023 00:21-0400 Heart rate 58 /min Ronobir FELICIA [facility] 02-24-2023 00:06-0400 gluc 139 mg/dL Ronobir FELICIA [facility] 02-24-2023 00:06-0400 Heart rate 61 /min Ronobir FELICIA [facility] 02-18-2022 13:50-0400 Body height 165.1 cm MD Shaikh Hernandez Work Phone: [facility] 02-18-2022 13:50-0400 Body weight 104.32 kg MD Shaikh Hernandez Work Phone: [facility] 09-01-2020 16:00-0400 BP Diastolic 85 mm[Hg] [facility] [place] 09-01-2020 16:00-0400 BP Systolic 158 mm[Hg] [facility] [place] 09-01-2020 14:12-0400 Pulse (Heart Rate) 72 /min [facility] [place] 09-01-2020 13:30-0400 Respiratory rate NOT REPORTED [facility] [place] [facility] 12:27-0400 Body Temperature 97.7 [degF] [facility] [place] [facility] 12:27-0400 Pulse Oximetry 94 % [facility] [place] 09-01-2020 07:15-0400 Respiratory rate NOT REPORTED [facility] Comment on above: Performed By: #### ERTPF #### [employer] [address], [place] [id number] Ota: Dheeraj Garcia MD 09-01-2020 04:45-0400 Respiratory Rate 15 /min Dankpaula Nunes [facility] [place] 08-31-2020 18:45-0400 BMI (Body Mass Index) 38.72 kg/m2 [facility] [place] 08-31-2020 18:45-0400 Body weight 105.55 kg [facility] [place] 08-31-2020 18:45-0400 Height 165.1 cm [facility] [place] 08-31-2020 00:34-0400 Respiratory rate NOT REPORTED [facility] Comment on above: Performed By: #### ERTPF #### [facility] [address], [place] [id number] Ota: Dheeraj Garcia MD 08-30-2020 23:08-0400 Respiratory rate NOT REPORTED Dank Manju [facility] [place] Encounters Encounter Date Encounter Type Care Provider Facility Start: 07-13-2023 End: 07-13-2023 Emergency department patient visit SHAIKH MARY Facility:[facility] Start: 07-13-2023 End: 07-13-2023 Emergency department patient visit Zaki Ramonsherice [facility] Start: 07-08-2023 End: 07-08-2023 ambulatory ALEXIA CLINE [facility] Start: 04-25-2023 End: 04-25-2023 ambulatory JONO [facility] Start: 04-15-2023 End: 04-15-[address] ROBIN PONCE . Facility:[facility] Start: 04-01-2023 End: 04-01-[address] DANK JOHSNON Facility:[facility] Start: 04-01-2023 End: 04-02-[address] DOCTOR CASTELLON Facility:[facility] Start: 03-24-2023 End: 03-25-[address] DOCTOR CASTELLON Facility:[facility] Start: 03-10-2023 End: 03[facility]10[facility] Start: 02-24-2023 End: 02-24-2023 ambulatory SHAIKH MARY Facility:[facility] Start: 02-24-2023 End: 02-24-2023 Observation Sunshine DUARTE [facility] Start: 02-14-2023 End: 02-14-[address] ROBIN PONCE . Facility:[facility] Start: 10-05-2022 End: 10-05-[address] ZELALEM STACY Facility:[facility] Start: 09-23-2022 ambulatory SHAIKH Enio HERNANDEZ Facilit y:[facility] Start: 02-18-2022 End: 02-18-2022 Patient encounter procedure MD Shaikh Hernandez Work Phone: [facility] Start: 03-21-2021 End: 03-22-2021 ambulatory EHAB A PATRICIATAHAWY Facility:[facility] Start: 08-31-2020 End: 09-01-2020 Evaluation and management of inpatient HERMELINDO ADKINS [facility] Start: 08-30-2020 End: 09-01-2020 Evaluation and management of inpatient Dank Nunes [facility] Comment on above: Injury of head, init ial encounter (Primary Dx) Procedures Date Procedure Procedure Detail Performing Clinician Start: 02-18-2022 MRI of abdomen with contrast MD Shaikh Hernandez Work Phone: Start: 09-01-2020 DISCHARGE PATIENT HERMELINDO ADKINS Start: 09-01-2020 IP CONSULT TO HOME CARE NEEDS HERMELINDO LUCILLE Start: 09-01-2020 PT EVAL AND TREAT HERMELINDO ADKINS Start: 09-01-2020 INITIATE OXYGEN THERAPY PROTOCOL HERMELINDO ADKINS Start: 09-01-2020 Echo tthrc r-t 2d w/wom-mode compl spec&colr d HERMELINDO ADKINS Start: 09-01-2020 Echo tthrc r-t 2d w/wom-mode compl spec&colr d Moisés A Tyda Start: 09-01-2020 Assay of ethanol HERMELINDO ADKINS Start: 09-01-2020 Blood count complete auto&auto difrntl wbc HERMELINDO ADKINS Start: 09-01-2020 Comprehensive metabolic panel HERMELINDO LUCILLE Start: 09-01-2020 Gonadotropin chorionic qualitative HERMELINDO ADKINS Start: 09-01-2020 Hemoglobin glycosylated a1c HERMELINDO ADKINS Start: 09-01-2020 Lipid panel HERMELINDO ADKINS Start: 09-01-2020 Cell enumeration immune selectj & id fluid spec HERMELINDO LUCILLE Start: 09-01-2020 Assay of ethanol Hermelindo Mehta Lucille Work Phone: Start: 09-01-2020 BASIC METABOLIC PANEL W/ REFLEX TO MG FOR LOW K Hermelindo Mehta Lucille Work Phone: Start: 09-01-2020 Blood count complete auto&auto difrntl wbc Hermelindo Mehta Lucille Work Phone: Start: 09-01-2020 Gonadotropin chorionic qualitative Hermelindo Mehta Lucille Work Phone: Start: 09-01-2020 Hemoglobin glycosylated a1c Hermelindo Mehta [place] Work Phone: Start: 09-01-2020 Lipid panel Hermelindo Mehta [place]ille Work Phone: Start: 09-01-2020 TRAUMA PANEL Hermelindo Mehta Lucille Work Phone: Start: 08-31-2020 CATHETER REMOVAL HERMELINDO LUCILLE Start: 08-31-2020 ADVANCE DIET TOLERATED (NURSING COMMUNICATION) HERMELINDO ADKINS Start: 08-31-2020 DIET CARB CONTROL HERMELINDOWHITNEY ADKINS Start: 08-31-2020 OT EVAL AND TREAT HERMELINDO LUCILLE Start: 08-31-2020 PLACE INTERMITTENT PNEUMATIC COMPRESSION DEVICE HERMELINDOWHITNEY ADKINS Start: 08-31-2020 TELEMETRY MONITORING HERMELINDO ADKINS Start: 08-31-2020 Mri brain brain stem w/o contrast material HERMELINDO ADKINS Start: 08-31-2020 Mri brain brain stem w/o contrast material Moisés A Tyda Start: 08-31-2020 Radex shoulder complete minimum 2 views HERMELINDO ADKINS Start: 08-31-2020 INITIATE OXYGEN THERAPY PROTOCOL HERMELINDOWHITNEY ADKINS Start: 08-31-2020 Radex shoulder complete minimum 2 views Christina Ever Work Phone: Start: 08-31-2020 HEIGHT AND WEIGHT HERMELINDO ADKINS Start: 08-31-2020 NURSING COMMUNICATION HERMELINDO ADKINS Start: 08-31-2020 FULL CODE HERMELINDOWHITNEY ADKINS Start: 08-31-2020 INITIATE OXYGEN THERAPY PROTOCOL HERMELINDO ADKINS Start: 08-31-2020 MISCELLANEOUS NURSING CARE ORDER (SPECIFY) HERMELINDO ADKINS Start: 08-31-2020 NIHSS HERMELINDO ADKINS Start: 08-31-2020 NOTIFY PHYSICIAN (SPECIFY) HERMELINDO ADKINS Start: 08-31-2020 NURSING SWALLOW ASSESSMENT HERMELINDO ADKINS Start: 08-31-2020 OT EVAL AND TREAT HERMELINDO ADKINS Start: 08-31-2020 PROVIDE PATIENT EDUCATION MATERIALS HERMELINDO ADKINS Start: 08-31-2020 PT EVAL AND TREAT HERMELINDO ADKINS Start: 08-31-2020 REASON FOR NO CHEMICAL VTE PROPHYLAXIS HERMELINDO ADKINS Start: 08-31-2020 PHOTOVOLTAIC PANEL INSTALLER EVAL AND TREAT HERMELINDO ADKINS Start: 08-31-2020 TOBACCO CESSATION EDUCATION HERMELINDO ADKINS Start: 08-31-2020 VITAL SIGNS HERMELINDO ADKINS Start: 08-31-2020 VITAL SIGNS - NOTIFY MD HERMELINDO ADKINS Start: 08-31-2020 PATIENT STATUS (FROM ED OR OR/PROCEDURAL) HERMELINDO ADKINS Start: 08-31-2020 IP CONSULT TO NEUROLOGY HERMELINDO ADKINS Start: 08-31-2020 Ct angiography head w/contrast/noncontrast HERMELINDO ADKINS Start: 08-31-2020 Ct lumbar spine w/o contrast material HERMELINDO ADKINS Start: 08-31-2020 Ct thoracic spine w/o contrast material HERMELINDO ADKINS Start: 08-31-2020 Ct thorax w/contrast material HERMELINDO ADKINS Start: 08-31-2020 Ct cervical spine w/o contrast material HERMELINDO ADKINS Start: 08-31-2020 TYPE AND SCREEN HERMELINDO ADKINS Start: 08-31-2020 Cell enumeration immune selectj & id fluid spec HERMELINDO ADKINS Start: 08-30-2020 Antibody screen Dank Nunes Start: 08-30-2020 Ct angiography neck w/contrast/noncontrast Moisés A Tyda Start: 08-30-2020 CT LUMBAR SPINE TRAUMA RECONSTRUCTION Pati B Zoodak Work Phone: Start: 08-30-2020 CT THORACIC SPINE TRAUMA RECONSTRUCTION Pati B Diop Work Phone: Start: 08-30-2020 Ct thorax w/contrast material Pati B Diop Work Phone: Start: 08-30-2020 Ct cervical spine w/o contrast material Pati B Diop Work Phone: Start: 08-30-2020 Blood typing serologic abo Dank Jorgensen n Start: 08-30-2020 TRAUMA PANEL Dank Nunes Abdominal hysterectomy Ronob ir FELICIA Appendectomy Ronobir FELICIA Closed fracture of p atella (disorder) Ronobir FELICIA Colonoscopy Ronobir FELICIA Exploratory laparotomy Ronob ir FELICIA History of coronary artery bypass grafting H/O coronary artery bypass surgery MD Shaikh Hernandez Work Phone: Plan of Treatment Date Care Activity Detail Author Start: 09-01-2021 Creatinine measurement Creatinine mo nitoring [place], [place] Start: 09-01-2021 HbA1c (Bld) [Mass fraction] A1C test (Diabetic or Prediabetic) [place], [place] Start: 09-01-2021 Lipid panel Lipid screen [place], [place] Start: 09-01-2021 Potassium monitoring Potassium monit [place]ing [place], [place] Start: 08-31-2020 Annual Wellness Visi t (AWV) Annual Wellness Visit (AWV) [place], [place] Start: 07-18-2020 Influenza vaccination Flu vaccine (# 1) [place], [place] Start: 2007 Screening for malign ant neoplasm of breast Breast cancer screen [place], [place] Start: 2007 Screening for malign ant neoplasm of colon Colon cancer screen colonoscopy [place], [place] Start: 2007 Shingles Vaccine (1 of 2) Shingles V accine (1 of 2) [place], [place] Start: 1978 Screening for malign ant neoplasm of cervix Cervical cancer screen [place], [place] Start: 1976 DTaP/Tdap/Td vaccine (1 - Tdap) DTaP/Tdap/Td vaccine (1 - Tdap) [place], [place] Start: 1975 Diabetic microalbumi betzy test Diabetic microalbuminuria test [place], [place] Start: 1972 HIV screening HIV screen [place], [place] Start: 1967 Diabetic foot examination Diabetic f oot exam [place], [place] Start: 1967 Diabetic retinal exam Diabetic retin al exam [place], [place] Start: 1957 Hepatitis C screening Hepatitis C sc reen [place], [place] Oxygen therapy [[facility] Data Set] Initiate Oxygen Therapy Protocol Respiratory Care Routine Daily until discontinued starting 08/31/2020 [place], [place] Comment on above: Daily until disconti nued starting 08/31/2020 End: 08-31-2020 Speech and language therapy regime [place], [place] Comment on above: One Time for 1 Occur rences starting 08/31/2020 until 08/31/2020 Immunizations Immunization Date Immunization Notes Care Provider Ronny pathak 08-17-2021 influenza virus vaccine, unspecified formulation Sunshine DUARTE [facility] 02-15-2021 SARS-CoV-2 (COVID-19 ) Ad26 vaccine, recombinant Ronobir FELICIA [facility] 01-15-2021 SARS-CoV-2 (COVID-19 ) Ad26 vaccine, recombinant Ronobir FELICIA [facility] Payers Date Payer Category Payer Medicare [id number] 1957 Self-pay [id number] 1955 Unknown [id number] [id number] 1957 Unknown [id number] 2.16.8 [id number] 1957 Unknown [id number] 2.16.84 [id number] 1957 Unknown [id number] 2.16.84 [id number] 1957 Unknown [id number] 2.16.84 [id number] 1957 Unknown [id number] 2.16.84 [id number] 1957 Unknown [id number] 2.16.84 [id number] 1957 Unknown [id number] 2.16.84 [id number] 1957 Unknown [id number] 2.16.84 [id number] 1957 Unknown [id number] 2.16.8 [id number] 1957 Unknown [id number] 2.16.8 [id number] Self-pay Self Pay [id number] Social History Date Type Detail Facility Tobacco smoking stat [facility] Unknown if ever smoked [facility]igned At Not on [facility] Start: 03-19-2021 Tobacco smoking stat [facility] Ex-smoker (finding) [facility] Start: 1955 Sex Assigned At Female [facility] Start: 02-24-2023 End: 07-13-2023 Tobacco smoking status Heavy tobacco smoker (finding) [facility] Comment on above: 1 pack a day Sex Assigned At Female [facility] Functional Status Date Assessment Result Facility 07-13-2023 Functional Status N/A [facility] 02-24-2023 Functional Status No [facility] 02-24-2023 Functional Status [facility] Clinical Notes 02-24-2023 to 07-13-2023 Note Date & Type Note Facility 07-13-2023 Hospital Discharg e instructions Patient Education 07/13/2023 12:19:06 Shoulder Pain Shoulder Pain Many things can cause shoulder pain, including: An injury to the shoulder. Overuse of the shoulder. Arthritis. The source of the pain can be: Inflammation. An injury to the shoulder joint. An injury to a tendon, ligament, or bone. Follow these instructions at home: Pay attention to changes in your symptoms. Let your health care provider know about them. Follow these instructions to relieve your pain. If you have a sling: Wear the sling as told by your health care provider. Remove it only as told by your health care provider. Loosen the sling if your fingers tingle, become numb, or turn cold and blue. Keep the sling clean. If the sling is not waterproof: ?Do not let it get wet. Remove it to shower or bathe. Move your arm as little as possible, but keep your hand moving to prevent swelling. Managing pain, stiffness, and swelling If directed, put ice on the painful area: ?Put ice in a plastic bag. ?Place a towel between your skin and the bag. ?Leave the ice on for 20 minutes, 2 3 times per day. Stop applying ice if it does not help with the pain. Squeeze a soft ball or a foam pad as much as possible. This helps to keep the shoulder from swelling. It also helps to strengthen the arm. General instructions Take etrt-wld-suntbbf and prescription medicines only as told by your health care provider. Keep all follow-up visits as told by your health care provider. This is important. Contact a health care provider if: Your pain gets worse. Your pain is not relieved with medicines. New pain develops in your arm, hand, or fingers. Get help right away if: Your arm, hand, or fingers: ?Tingle. ?Become numb. ?Become swollen. ?Become painful. ?Turn white or blue. Summary Shoulder pain can be caused by an injury, overuse, or arthritis. Pay attention to changes in your symptoms. Let your health care provider know about them. This condition may be treated with a sling, ice, and pain medicines. Contact your health care provider if the pain gets worse or new pain develops. Get help right away if your arm, hand, or fingers tingle or become numb, swollen, or painful. Keep all follow-up visits as told by your health care provider. This is important. This information is not intended to replace advice given to you by your health care provider. Make sure you discuss any questions you have with your health care provider. Document Revised: 07/19/2022 Document Reviewed: 07/19/2022 RxResults Patient Education 2022 [employer]. 07/13/2023 12:19:06 Muscle Strain Muscle Strain A muscle strain is an injury that occurs when a muscle is stretched beyond its normal length. Usually, a small number of muscle fibers are torn when this happens. There are three types of muscle strains. First-degree strains have the least amount of muscle fiber tearing and the least amount of pain. Second-degree and third-degree strains have more tearing and pain. Usually, recovery from muscle strain takes 1 2 weeks. Complete healing normally takes 5 6 weeks. What are the causes? This condition is caused when a sudden, violent force is placed on a muscle and stretches it too far. This may occur with a fall, while lifting, or during sports. What increases the risk? This condition is more likely to develop in athletes and people who are physically active. What are the signs or symptoms? Symptoms of this condition include: Pain. Tenderness. Bruising. Swelling. Trouble using the muscle. How is this diagnosed? This condition is diagnosed based on a physical exam and your medical history. Tests may also be done, including an X-ray, ultrasound, or MRI. How is this treated? This condition is initially treated with PALAFOX therapy. This therapy involves: Protecting the muscle from being injured again. Resting the injured muscle. Icing the injured muscle. Applying pressure (compression) to the injured muscle. This may be done with a splint or elastic bandage. Raising (elevating) the injured muscle. Your health care provider may also recommend medicine for pain. Follow these instructions at home: If you have a removable splint: Wear the splint as told by your health care provider. Remove it only as told by your health care provider. Check the skin around the splint every day. Tell your health care provider about any concerns. Loosen the splint if your fingers or toes tingle, become numb, or turn cold and blue. Keep the splint clean. If the splint is not waterproof: ?Do not let it get wet. ?Cover it with a watertight covering when you take a bath or a shower. Managing pain, stiffness, and swelling If directed, put ice on the injured area. To do this: ?If you have a removable splint, remove it as told by your health care provider. ?Put ice in a plastic bag. ?Place a towel between your skin and the bag. ?Leave the ice on for 20 minutes, 2 3 times a day. ?Remove the ice if your skin turns bright red. This is very important. If you cannot feel pain, heat, or cold, you have a greater risk of damage to the area. Move your fingers or toes often to reduce stiffness and swelling. Raise (elevate) the injured area above the level of your heart while you are sitting or lying down. Wear an elastic bandage as told by your health care provider. Make sure that it is not too tight. General instructions Take fcwm-noy-hdrgbnj and prescription medicines only as told by your health care provider. Treatment may include muscle relaxants or medicines for pain and inflammation that are taken by mouth or applied to the skin. Restrict your activity and rest the injured muscle as told by your health care provider. Gentle movements may be allowed. If physical therapy was prescribed, do exercises as told by your health care provider. Do not put pressure on any part of the splint until it is fully hardened. This may take several hours. Do not use any products that contain nicotine or tobacco. These products include cigarettes, chewing tobacco, and vaping devices, such as e-cigarettes. If you need help quitting, ask your health care provider. Ask your health care provider when it is safe to drive if you have a splint. Keep all follow-up visits. This is important. How is this prevented? Warm up before exercising. This helps to prevent future muscle strains. Contact a health care provider if: You have more pain or swelling in the injured area. Get help right away if: You have numbness or tingling in the injured area. You lose a lot of strength in the injured area. Summary A muscle strain is an injury that occurs when a muscle is stretched beyond its normal length. This condition is caused when a sudden, violent force is placed on a muscle and stretches it too far. This condition is initially treated with PALAFOX therapy, which involves protecting, resting, icing, compressing, and elevating. Gentle movements may be allowed. If physical therapy was prescribed, do exercises as told by your health care provider. This information is not intended to replace advice given to you by your health care provider. Make sure you discuss any questions you have with your health care provider. Document Revised: 01/21/2022 Document Reviewed: 01/21/2022 RxResults Patient Education 2022 [employer]. Follow Up Care 07/13/2023 11:23:52 With:Robin Kris Address: [address] [place] [id number] Business (1) When:07/16/2023 12:02:34 [facility] 07-13-2023 Evaluation + Plan note Extrac sherita from: Title:ED Note Author:Mathew Montana PA-C te:07/13/23 Shoulder pain (M25.519: Pain in unspecified shoulder) Ordered: acetaminophen-oxycodone, 1 tab(s), Oral, q6hr as needed for pain for 3 day(s), 15 tab(s), Refill(s) 0, [id number], 165, cm, 07/13/23 11:34:00 EDT, Height/Length Dosing, 95.5, kg, 07/13/23 11:34:00 EDT, Weight Dosing [facility]08-22-2023 NoteWill increase imdur to 60 mg and d/w pt that if migraines worsen she can reduce back to 30 mg Recent [facility] Recommended pt to [place] NoteCoronary artery disease is stable Continue GDMT- Coreg, simvastatin, imdur continue risk factor modifications- heart healthy diet, regular exercise as tolerated and continue all medications.[facility] 07-08-2023 NoteNYHC II- currently LVEF normal 60%- recovered Mild MR and TV regurg Normal rt sided pressure Continue current med regime. Coreg, irbesartan, simvastatin, [facility]ur[facility]2023 NoteHypertension is well controlled, Continue all current medsUniversity of [facility]08-[facility]-2023 NoteUTP CARDIOLOGY PROGRESS NOTE HPI: Yeyo Avila is a 67 y.o. female here for hospital f/U chest pain and Lt sided weakness/parathesia HPI Pt presents to clinic for hospital f/U after recent ED visit for chest pain and while there she had Lt sided weakness and r/O stroke. Currently admits chest discomfort, states it feels like her CABG scar and worsens with palpation. Denied shortness of breath, orthopnea, palpitations. Admits to having migraines frequently since she had children for about last 40 years. 06/16/23 ED visit Chief Complaint of: Left Sided Weakness, chest pain History of Present Illness: Yeyo Avila is a 67 year old female with past medical history significant for hypertension, hyperlipemia, CAD s/p stent, diabetes mellitus, nicotine use, depression, and migraines who initially presented to the ED with chest pain. While in the ED, she complained of left-sided weakness and paresthesia. Her noncontrast CT brain was negative for acute pathology. She is unable to get vessel imaging due to contrast allergy. She is on aspirin and Plavix at home. Yeyo was admitted for further cardiac and stroke workup. Her MRI brain was negative for acute stroke. This afternoon, yeyo is resting in bed and continues to have left-sided weakness and paresthesia in her arm and leg. She also complains of a headache. Of note, yeyo states she gets left-sided weakness and paresthesia associated with her migraines. She denies new neurologic symptoms including vision changes, speech disturbance, dizziness, diplopia or dysphagia. ASSESSMENT & PLAN - Teneteplase : No Symptoms resolved or minor - Transfer to comprehensive stroke center:No - Interventional Stroke Team activation: No tPA contraindications: non disabling and improving symptoms Additional Recommendations: Yeyo Avila is a 67 year old female with past medical history significant for hypertension, hyperlipemia, CAD s/p stent, diabetes mellitus, nicotine use, depression, and migraines who initially presented to the ED with chest pain. While in the ED, she complained of left-sided weakness and paresthesia. Her noncontrast CT brain was negative for acute pathology. She is unable to get vessel imaging due to contrast allergy. MRI brain is negative for acute stroke. Discussed with Yeyo her symptoms may be related to migraines as she states this is typical presentation of her symptoms. She denies recent neck or back injury. Complains of mild neck pain that she associates to being in bed. Echocardiogram ordered is currently pending. She remains on aspirin, plavix, and statin which are home medications. Last LDL per RN is 32. Consider lowering dose with follow up lipid profile in 3 months. SBP goal normotension. No further stroke warranted at this time. Stroke team will sign off. No need for outpatient stroke follow up as MRI brain is negative and persistent symptoms not consistent with TIA. Plan discussed with patient, family, and RN present at bedside. Consult completed in collaboration with my attending, Dr. Lin, who was present on camera for evaluation. Review of Systems Constitutional: Negative. Respiratory: Negative. Cardiovascular: Positive for chest pain. Neurological: Negative. All other systems reviewed and are negative. Visit Vitals BP 116/73 (BP Location: Left arm, Patient Position: Sitting, BP Cuff Size: Large adult) Pulse 76 Ht 1.651 m (5' 5 ) Wt 94.8 kg (209 lb) SpO2 97% BMI 34.78 kg/m??? Smoking Status Every Day BSA 2.09 m??? Allergies Allergen Reactions Iodinated Contrast Media Swelling Aspirin GI intolerance Atorvastatin Other States pain in groin Cat/Feline Products Hives [place] Hives Topiramate Hives and Other Blue Dye Other Iodine Other Lisinopril Other Medications: Current Outpatient Medications on File Prior to Visit Medication Sig Dispense Refill amLODIPine (Norvasc) 5 mg tablet Take 1 tablet (5 mg) by mouth once daily as directed. 90 tablet 3 buPROPion XL (Wellbutrin XL) 150 mg 24 hr tablet bupropion HCl XL 150 mg 24 hr tablet, extended release carvedilol (Coreg) 25 mg tablet Take 25 mg by mouth with breakfast and with evening meal. clopidogrel (Plavix) 75 mg tablet Take by mouth in the morning. DULoxetine (Cymbalta) [address] capsule Take 1 capsule by mouth in the morning. glimepiride (Amaryl) 4 mg tablet glimepiride 4 mg tablet hydrOXYzine pamoate (Vistaril) 25 mg capsule Take 25 mg by mouth at bedtime. irbesartan (Avapro) 150 mg tablet Take by mouth in the morning. metoclopramide (Reglan) 5 mg tablet nitroglycerin (Nitrostat) 0.4 mg SL tablet nitroglycerin 0.4 mg sublingual tablet 30 tablet 0 NovoLIN 70-30 FlexPen U-100 100 unit/mL (70-30) injection pantoprazole (ProtoNix) 40 mg EC tablet Take 1 tablet by mouth in the morning. simvastatin (Zocor) 40 mg tablet Take 40 mg by mouth at bedtime. [DISCONTINUED] isosorbide mononitrate ER (I (more content not included)... [facility]06-09-2023 NotePatient here for follow up Holter monitor and stress test. Also had labs a few weeks ago. Review of Systems Cardiovascular: Positive for chest pain, dyspnea on exertion and near-syncope (with bending over). Neurological: Positive for dizziness and light-headedness. All other systems reviewed and are negative.[facility] 04-25-2023 NoteCardiology Clinic Note Subjective Yeyo Avila is a 67 y.o. year old female patient medical history of coronary artery disease status post PCI to LAD and first diagonal in March 2014, hypertension, type 2 diabetes, systolic heart failure, are seen in follow-up. Patient Active Problem List Diagnosis Achilles tendon rupture Acquired cystic kidney disease Aneurysm of thoracic aorta (CMS/HCC) Benign essential hypertension Hypertension Cerebral infarction (CMS/HCC) Chronic obstructive pulmonary disease, unspecified (CMS/HCC) Chronic systolic heart failure (CMS/HCC) Complicated migraine Migraine, unspecified, not intractable, with status migrainosus Diabetes mellitus due to underlying condition without complications (CMS/HCC) Coronary atherosclerosis Diabetes (CMS/HCC) Difficulty in walking, not elsewhere classified Disorder of urinary tract Dyspnea Zaina hematuria Hemiplegia and hemiparesis following cerebral infarction affecting left non-dominant side (CMS/HCC) Head injury GERD (gastroesophageal reflux disease) NEGRITA (generalized anxiety disorder) Anxiety disorder, unspecified Hypertensive urgency Hyperlipidemia, unspecified History of stroke Hemiplegic migraine Major depressive disorder, recurrent, unspecified (CMS/HCC) MDD (major depressive disorder), recurrent episode, moderate (CMS/HCC) Muscle weakness (generalized) Obesity, unspecified Primary malignant neoplasm of bladder (CMS/HCC) Palpitations Old myocardial infarction Severe episode of recurrent major depressive disorder, without psychotic features (CMS/HCC) Stroke-like symptoms Status post percutaneous transluminal coronary angioplasty Syncope and collapse Transient ischemic attack Uterine leiomyoma No family history on file. HPI Yeyo Avila is a 67 y.o. year old female patient medical history of coronary artery disease status post PCI to LAD and first diagonal in March 2014, hypertension, type 2 diabetes, systolic heart failure, are seen in follow-up. She was last seen by Dr. Pardo in February 2022. She has been experiencing chest discomfort lasting for several minutes then dissipates since the loss of her in early January. Symptoms occur on exertion as well requiring frequent rest. She experiences lightheadedness and dizziness, with room spinning. She had a syncopal event the day after her 's . Update: 04/25/2023 Still has lightheadedness and dizziness Has brief chest pains No recurrent syncope Has a lot vertigo, has to sit down when symptoms occur Has a lot of stress related to the of her , found out today children are homeless Review of Systems Cardiovascular: Positive for chest pain and near-syncope. Negative for claudication, dyspnea on exertion, irregular heartbeat, leg swelling, orthopnea, palpitations, paroxysmal nocturnal dyspnea and syncope. Neurological: Positive for dizziness and light-headedness. Objective Visit Vitals BP 121/72 (BP Location: Left arm, Patient Position: Sitting) Pulse 70 Ht 1.651 m (5' 5 ) Wt 96.6 kg (213 lb) SpO2 98% BMI 35.45 kg/m??? BSA 2.1 m??? Physical Exam General: Awake, alert, good spirits. NAD Pulm: Breath sounds clear to ascultation bilaterally with no wheeze, crackles or rhonchi Cards: Regular rate and rhythm, S1, S2. No S3 or S4 gallop. Murmur: none Abd: Soft, Nontender, physiologic bowel sounds are present Extr: Lower extremity edema: None Skin: warm, dry, well perfused Neuro: A&Ox3, No gross deficits Allergies Allergies Allergen Reactions Iodinated Contrast Media Swelling Atorvastatin Other States pain in groin Cat/Feline Products Hives [place] Hives Topiramate Hives and Other Blue Dye Other Lisinopril Other Medications Current Outpatient Medications: amLODIPine (Norvasc) 5 mg tablet, Take 1 tablet (5 mg) by mouth once daily as directed., Disp: 90 tablet, Rfl: 3 buPROPion XL (Wellbutrin XL) 150 mg 24 hr tablet, bupropion HCl XL 150 mg 24 hr tablet, extended release, Disp: , Rfl: carvedilol (Coreg) 25 mg tablet, Take 25 mg by mouth with breakfast and with evening meal., Disp: , Rfl: clopidogrel (Plavix) 75 mg tablet, Take by mouth in the morning., Disp: , Rfl: DULoxetine (Cymbalta) [address] capsule, Take 1 capsule by mouth in the morning., Disp: , Rfl: glimepiride (Amaryl) 4 mg tablet, glimepiride 4 mg tablet, Disp: , Rfl: irbesartan (Avapro) 150 mg tablet, Take by mouth in the morning., Disp: , Rfl: isosorbide mononitrate ER (Imdur) 30 mg 24 hr tablet, isosorbide mononitrate ER 30 mg tablet,extended release 24 hr, Disp: , Rfl: metoclopramide (Reglan) 5 mg tablet, , Disp: , Rfl: pantoprazole (ProtoNix) 40 mg EC tablet, Take 1 tablet by mouth in the morning., Disp: , Rfl: simvastatin (Zocor) 40 mg tablet, Take 40 mg by mouth at bedtime., Disp: , Rfl: nitroglycerin (Nitrostat) 0.4 mg SL tablet, nitroglycerin 0.4 mg sublingual tablet, Dis (more content not included)...[facility] 03-10-2023 NoteCardiology Clinic Note Subjective Yeyo Avila is a 67 y.o. year old female patient medical history of coronary artery disease status post PCI to LAD and first diagonal in March 2014, hypertension, type 2 diabetes, systolic heart failure, are seen in follow-up. She was last seen by Dr. Pardo in February 2022. She has been experiencing chest discomfort lasting for several minutes them dissipates since the loss of her in early January. Symptoms occur on exertion as well requiring frequent rest. She experiences lightheadedness and dizziness, with room spinning. She had a syncopal event the day after her 's . Patient Active Problem List Diagnosis Achilles tendon rupture Acquired cystic kidney disease Aneurysm of thoracic aorta (CMS/HCC) Benign essential hypertension Hypertension Cerebral infarction (CMS/HCC) Chronic obstructive pulmonary disease, unspecified (CMS/HCC) Chronic systolic heart failure (CMS/HCC) Complicated migraine Migraine, unspecified, not intractable, with status migrainosus Diabetes mellitus due to underlying condition without complications (CMS/HCC) Coronary atherosclerosis Diabetes (CMS/HCC) Difficulty in walking, not elsewhere classified Disorder of urinary tract Dyspnea Zaina hematuria Hemiplegia and hemiparesis following cerebral infarction affecting left non-dominant side (CMS/HCC) Head injury GERD (gastroesophageal reflux disease) NEGRITA (generalized anxiety disorder) Anxiety disorder, unspecified Hypertensive urgency Hyperlipidemia, unspecified History of stroke Hemiplegic migraine Major depressive disorder, recurrent, unspecified (CMS/HCC) MDD (major depressive disorder), recurrent episode, moderate (CMS/HCC) Muscle weakness (generalized) Obesity, unspecified Primary malignant neoplasm of bladder (CMS/HCC) Palpitations Old myocardial infarction Severe episode of recurrent major depressive disorder, without psychotic features (CMS/HCC) Stroke-like symptoms Status post percutaneous transluminal coronary angioplasty Syncope and collapse Transient ischemic attack Uterine leiomyoma No family history on file. Review of Systems Cardiovascular: Positive for chest pain, dyspnea on exertion, near-syncope and syncope. Negative for claudication, irregular heartbeat, leg swelling, orthopnea, palpitations and paroxysmal nocturnal dyspnea. Neurological: Positive for dizziness and light-headedness. Objective Visit Vitals BP 139/77 (BP Location: Right arm, Patient Position: Standing) Pulse 73 Ht 1.651 m (5' 5 ) Wt 97.1 kg (214 lb) SpO2 95% BMI 35.61 kg/m??? BSA 2.11 m??? Physical Exam General: Awake, alert, good spirits. NAD Pulm: Breath sounds clear to ascultation bilaterally with no wheeze, crackles or rhonchi Cards: Regular rate and rhythm, S1, S2. No S3 or S4 gallop. Murmur: none Abd: Soft, Nontender, physiologic bowel sounds are present Extr: Lower extremity edema: None Skin: warm, dry, well perfused Neuro: A&Ox3, No gross deficits Allergies Allergies Allergen Reactions Iodinated Contrast Media Swelling Atorvastatin Other States pain in groin Cat/Feline Products Hives [place] Hives Topiramate Hives and Other Blue Dye Other Lisinopril Other Medications Current Outpatient Medications: buPROPion XL (Wellbutrin XL) 150 mg 24 hr tablet, bupropion HCl XL 150 mg 24 hr tablet, extended release, Disp: , Rfl: carvedilol (Coreg) 25 mg tablet, Take 25 mg by mouth with breakfast and with evening meal., Disp: , Rfl: clopidogrel (Plavix) 75 mg tablet, Take by mouth in the morning., Disp: , Rfl: DULoxetine (Cymbalta) [address] capsule, Take 1 capsule by mouth in the morning., Disp: , Rfl: glimepiride (Amaryl) 4 mg tablet, glimepiride 4 mg tablet, Disp: , Rfl: irbesartan (Avapro) 150 mg tablet, Take by mouth in the morning., Disp: , Rfl: isosorbide mononitrate ER (Imdur) 30 mg 24 hr tablet, isosorbide mononitrate ER 30 mg tablet,extended release 24 hr, Disp: , Rfl: metoclopramide (Reglan) 5 mg tablet, , Disp: , Rfl: nitroglycerin (Nitrostat) 0.4 mg SL tablet, nitroglycerin 0.4 mg sublingual tablet, Disp: , Rfl: pantoprazole (ProtoNix) 40 mg EC tablet, Take 1 tablet by mouth in the morning., Disp: , Rfl: simvastatin (Zocor) 40 mg tablet, Take 40 mg by mouth at bedtime., Disp: , Rfl: amLODIPine (Norvasc) 5 mg tablet, Take 1 tablet (5 mg) by mouth once daily as directed., Disp: 90 tablet, Rfl: 3 Recent Labs No results found for: NA, K, CL, CO2, BUN, CREATININE, GLUCOSE, CALCIUM No results found for: WBC, HGB, HCT, MCV, PLT No results found for: CHOL, TRIG, HDL, LDLDIRECT Imaging and other tests Echo: 03/29/2022 Global left ventricular systolic function is normal ejection fraction 60 to 65%. Mild left ventricular hypertrophy. Significant wall motion abnormalities Normal diastolic function Right ventricle is normal in size and systolic function. No significant (more content not included)...[facility] 02-24-2023 NoteOur [facility] - AndersonComment on above:Result Comment: Electronically Signed By: Leann GUNTER MD\.br\Date and Time Signed: 02/24/23 12:35 [id number] Evaluation + Plan noteExtracted from: Title:Discharge Note Author:Leann GUNTER MD ate:02/24/23 Discharge To, Anticipated II - Home with responsible caregiver Discharged to - Home independently Discharge Diet(s): Low Sodium- 2000 mg (02/24/23 08:44:00) Prescriptions No active prescription medications Home Aspirin 81 mg Tab-EC, 81 mg= 1 tab(s), Oral, Daily CeleXA 40 mg Tab, 40 mg= 1 tab(s), Oral, Daily Colace 100 mg Cap, 100 mg= 1 cap(s), Oral, BID, PRN, Not taking: patient states I don't know I am suppose to Coreg 12.5 mg Tab, 12.5 mg= 1 tab(s), Oral, BID isosorbide dinitrate, 30 mg, Oral, Daily omeprazole 40 mg Cap-EC, 40 mg= 1 cap(s), Oral, Daily Plavix 75 mg Tab, 75 mg= 1 tab(s), Oral, Daily pravastatin 10 mg oral tablet, 1 tab(s), Oral, Daily simvastatin 40 mg Tab, 40 mg= 1 tab(s), Oral, Once a day (at bedtime) Vicodin, Oral, q4hr Zanaflex 4 mg Tab, 4 mg= 1 tab(s), Oral, BID, PRN With When Contact Information Robin Ponce [address] [place] [address] [place] [address]- Business (1) Additional Instructions: Office is closed for lunch between Noon and 1 p.m. Please contact office for follow up appointment. Thank you! SHAIKH SHANEMARIO Within 5 to 7 days [address] [place] [address] Business (1) Additional Instructions: Not a patient. Syncope, [id number] Extracted from: Title:APSO Note Author:PERLA PRADO, Mbanefo Date: 67-year-old obese female with history of diabetes mellitus, hypertension, hyperlipidemia, coronary artery disease, aortic aneurysm status post surgery, who has not been drinking enough water or eating following the demise of her earlier on in the day presented because of a syncopal episode and was admitted with syncope, acute kidney injury, hypokalemia. 1. Syncopal episodes (R55: Syncope and collapse) Suspect secondary to orthostatic hypotension from not drinking. CT scan of the brain and cervical spine that showed no acute pathology. No events reported on heart monitor. Check orthostatic vital signs. Ordered: [facility] Hospital Care/Day Moderate 35 Minutes [id number] 2. RAMA (acute kidney injury) (N17.9: Acute kidney failure, unspecified) Acute kidney injury secondary to ATN from dehydration and antihypertensives. Resolved. Treated with IV fluid. Ordered: [facility] Care/Day Moderate 35 Minutes [id number] 3. Hypokalemia (E87.6: Hypokalemia) Secondary to poor oral intake. Potassium level improving to 3.4. We will give patient additional potassium chloride. Ordered: potassium chloride, 40 mEq = 2 tab(s), Tab-ER, Oral, Once, Stop date 02/24/23 10:00:00 EDT, Routine, Start date 02/24/23 10:00:00 EDT, 02/24/23 9:46:00 EDT [facility] Hospital Care/Day Moderate 35 Minutes [id number] 4. Diabetes mellitus (E11.9: Type 2 diabetes mellitus without complications) Continue sliding scale insulin. Ordered: [facility] Care/Day Moderate 35 Minutes 97372 5. High cholesterol (E78.00: Pure hypercholesterolemia, unspecified) On Lipitor at home. Ordered: [facility] Hospital Care/Day Moderate 35 Minutes [id number] 6. Hypertension (I10: Essential (primary) hypertension) Blood pressure on the low side of normal. 7. CAD (coronary artery disease) (I25.10: Atherosclerotic heart disease of [place] coronary artery without angina pectoris) Continue on aspirin, Plavix. 8. Aortic aneurysm (I71.9: Aortic aneurysm of unspecified site, without rupture) Status post surgery. 9. Obese (E66.9: Obesity, unspecified) Recommend therapeutic lifestyle modification changes. 10. On deep vein thrombosis (DVT) prophylaxis (Z79.899: Other termite renewal inspector (current) drug therapy) Heparin. Disposition: Home soon pending physical therapy evaluation. I discussed the diagnosis and plan of care with the patient at the bedside. Moderate level of MDM based on addressing above issues. This documentation was transcribed using voice recognition software. Several attempts were made to ensure accuracy. However inadvertent computerized linen supervisor errors may be present. Leann Gunter. Hospitalist. Unresponsive episode (R41.89: Other symptoms and signs involving cognitive functions and awareness) Orders: Discharge Patient Orthostatic Vitals Signs Potassium Level Extracted from: Title:Admission H & P Author:Sunshine DUARTE DO Date:02/24/23 1. Syncopal episodes (R55: S yncope and collapse) Suspect patient was orthostatic due to dehydration. Will gently hydrate patient overnight and have physical therapy work with her for evaluation. Patient has no focal neurologic deficits therefore do not think cerebrovascular accident is likely cause of her syncope. Cardiac markers will be trended. We will check TSH with morning labs. 2. RAMA (acute kidney injury) (N17.9: Acute kidney failure, unspecified) Unknown baseline creatinine 2 therefore unclear if this is a chronic or acute issue. Will hydrate patient as noted above and recheck labs in the morning. 3. Hypokalemia (E87.6: Hypokalemia) Replete and recheck 4. Diabetes mellitus (E11.9: Type 2 diabetes mellitus without complications) Diabetic diet. Sliding scale insulin. Resume home medications once reconciled. 5. High cholesterol (E78.00: Pure hypercholesterolemia, unspecified) Resume home medications once reconciled. 6. Hypertension (I10: Essential (primary) hypertension) Hydralazine iv prn. see orders. Resume home medications once reconciled. 7. On deep vein thrombosis (DVT) prophylaxis (Z79.899: Other snf (current) drug therapy) SCD, heparin Orders: acetaminophen, 650 mg = 2 tab(s), Tab, Oral, q6hr PRN Pain, Routine, Start date 02/24/23 3:20:00 EDT, 02/24/23 3:20:00 EDT diphenhydrAMINE, 25 mg = 1 cap(s), Cap, Oral, q6hr PRN Itching, Routine, Start date 02/24/23 3:20:00 EDT, 02/24/23 3:20:00 EDT glucose, 50 mL, Soln-IV, IV Push, Once PRN Blood glucose, STAT, Start date 02/24/23 3:19:00 EDT heparin, 5,000 unit(s) = 1 mL, Injection, SubCutaneous, BID for 30 day(s), Stop date 03/26/23 8:59:00 EDT, Routine, Start date 02/24/23 9:00:00 EDT, 02/24/23 3:20:00 EDT hydrALAZINE, 10 mg = 0.5 mL, Injection, IV Push, q6hr PRN Other (see comment), Routine, Start date 02/24/23 3:20:00 EDT, 02/24/23 3:20:00 EDT insulin lispro, 0-10 Units, Injection-Insulin, SubCutaneous, QIDACHS, Routine, Start date 02/24/23 7:30:00 EDT ondansetron, 4 mg = 2 mL, Injection, IV Push, q6hr PRN Nausea, Routine, Start date 02/24/23 3:20:00 EDT, 02/24/23 3:20:00 EDT potassium chloride, 40 mEq = 2 tab(s), Tab-ER, Oral, Once, Stop date 02/24/23 4:00:00 EDT, Routine, Start date 02/24/23 4:00:00 EDT, 02/24/23 3:26:00 EDT promethazine, 12.5 mg = 0.5 mL, Injection, IV Push, q6hr PRN Nausea, Routine, Start date 02/24/23 3:20:00 EDT, 02/24/23 3:20:00 EDT Sodium Chloride 0.9% intravenous solution 1,000 mL, 1,000 mL, IV, 125 mL/hr, Routine, Start date 02/24/23 3:20:00 EDT, 8 hour(s), Total volume (mL): 1,000, 99.3 kg, 2.13, m2 Ambulate with Assistance Basic Metabolic Panel Below the Knee Intermittent Pneumatic Compression Device Cardiac Monitoring Diabetic/Calorie Control Diet Hypoglycemia Protocol Responsive Patient Hypoglycemia Protocol Unresponsive Patient Intake and Output Magnesium Level Notify Provider Vital Signs Notify Provider Vital Signs Oxygen Protocol Physical Therapy Evaluate Patient, Develop a Plan of Care and Implement Plan Place in Status Precautions Resuscitation Status - Full Routine Capillary Glucose POC Troponin TSH With T4fr Reflex Vital Signs Weight Anticipated stay less than 2 midnights. Patient will be observation status. Extracted from: Title:ED Note Author:Jordy Del Toro MD Date: 1. Syncopal episodes (R55: S yncope and collapse) 2. Unresponsive episode (R41.89: Other symptoms and signs involving cognitive functions and awareness) 3. Hypokalemia (E87.6: Hypokalemia) Orders: Sodium Chloride 0.9% intravenous solution, 1,000 mL, Soln-IV, IV, Once, Stop date 02/24/23 0:18:00 EDT, STAT, Start date 02/24/23 0:18:00 EDT, Infuse over 61, minute(s) Sodium Chloride 0.9% with KCl 20 mEq/l 1,000 mL, 1,000 mL, IV, 125 mL/hr, STAT, Start date 02/24/23 1:36:00 EDT, 8 hour(s), Total volume (mL): 1,000, 99.3 kg, 2.13, m2 Automated Diff Basic Metabolic Panel CBC w/ Auto Diff CT Head or Brain w/o Contrast CT Spine Cervical w/o Contrast ECG 12 Lead Adult ED Cardiac Monitoring ED Physician consult Hospitalist for continued care eGFR Hepatic Function Panel Oxygen Saturation PT & PTT Saline Lock Insert Troponin 0 Hr. Troponin 3 Hr. Troponin 6 Hr. Troponin 9 Hr. UA With Cult Reflex XR Chest Single View XR Spine Lumbosacral 2 or 3 Views [facility]04-10-2023 Hospital Discharge instructions Patient Education 02/24/2023 11:49:54 Syncope, [id number] Syncope Syncope is when you pass out (faint) for a short time. It is caused by a sudden decrease in blood flow to the brain. Signs that you may be about to pass out include: Feeling dizzy or light-headed. Feeling sick to your stomach (nauseous). Seeing all white or all black. Having cold, clammy skin. If you pass out, get help right away. Call your local emergency services (911 in the [place] Do not drive yourself to the hospital. Follow these instructions at home: Watch for any changes in your symptoms. Take these actions to stay safe and help with your symptoms: Lifestyle Do not drive, use machinery, or play sports until your doctor says it is okay. Do not drink alcohol. Do not use any products that contain nicotine or tobacco, such as cigarettes and e-cigarettes. If you need help quitting, ask your doctor. Drink enough fluid to keep your pee (urine) pale yellow. General instructions Take ozgv-lnl-rjpwezq and prescription medicines only as told by your doctor. If you are taking blood pressure or heart medicine, sit up and stand up slowly. Spend a few minutesgetting ready to sit and then stand. This can help you feel less dizzy. Have someone stay with you until you feel stable. If you start to feel like you might pass out, lie down right away and raise (elevate) your feet above the level of your heart. Breathe deeply and steadily. Wait until all of the symptoms are gone. Keep all follow-up visits as told by your doctor. This is important. Get help right away if: You have a very bad headache. You pass out once or more than once. You have pain in your chest, belly, or back. You have a very fast or uneven heartbeat (palpitations). It hurts to breathe. You are bleeding from your mouth or your bottom (rectum). You have black or tarry poop (stool). You have jerky movements that you cannot control (seizure). You are confused. You have trouble walking. You are very weak. You have vision problems. These symptoms may be an emergency. Do not wait to see if the symptoms will go away. Get medical help right away. Call your local emergency services (331 in the [place] Do not drive yourself to the hospital. Summary Syncope is when you pass out (faint) for a short time. It is caused by a sudden decrease in blood flow to the brain. Signs that you may be about to faint include feeling dizzy, light-headed, or sick to your stomach, seeing all white or all black, or having cold, clammy skin. If you start to feel like you might pass out, lie down right away and raise (elevate) your feet above the level of your heart. Breathe deeply and steadily. Wait until all of the symptoms are gone. This information is not intended to replace advice given to you by your health care provider. Make sure you discuss any questions you have with your health care provider. Document Released: 04/21/2009 Document Revised: 12/16/2018 Document Reviewed: 12/16/2018 RxResults Patient Education 2020 [employer]. Follow Up Care 02/24/2023 00:01:37 With:Robin Ponce Address: [address] [place] [id number] Business (1) When: Unknown Comments:Office is closed for lunch between Noon and 1 p.m. Please contact office for follow up appointment.Thank you! With:SHAIKH MARY Address: [address] [place] [id number] Business (1) When:5 to 7 days Comments:Not a patient. [facility]04-10-2023 NoteFisher Brandenburg CenterComment on above:Result Comment: Electronically Signed By: Sunshine DUARTE DO\Date and Time Signed: 02/24/23 03:41 EDTEvaluation noteNo assessment information availableTrumbull Regional Medical Center Work Phone: Hospital course Narrative No data available for this section [facility] No data available for this section [facility] Summary Purpose Family History No Family History Records FoundNo Family History Records FoundNo Family History Records FoundNo Family History Records FoundNo Family History Records FoundNo Family History Records FoundNo Family History Records Found Advance Directives Latest Code Status on File Code Status Date Activated Date Inactivated Comments Full Code 08/31/2020 3:54 AM Full Code 08/31/2020 3:54 AM 08/31/2020 3:54 AM Advance Directive Response Recorded Date/ Time Advance Directives No October 24, 2018 10:10pm Discharge Instructions * Discharge Instr - JOSH* Karal Call RN - 09/01/2020 11:36 AM EDT Continuity of Care Form Patient Name: Yeyo Avila : 1955 Admit date: 08/30/2020 Discharge date: 09/01/2020 Code Status Order: Full Code Advance Directives: Admitting Physician: Hermelindo Adkins MD PCP: Robin Ponce MD Discharging Nurse: Zaina QUEZADA Discharging Hospital Unit/Room#: 0234/0234-01 Discharging Unit Emergency Contact: Extended Emergency Contact Information Primary Emergency Contact: Jared Avila Mobile Relation: Spouse Past Surgical History: No past surgical history on file. Immunization History: There is no immunization history on file for this patient. Active Problems: Patient Active Problem List Diagnosis Code Fall W19.XXXA Hemiplegic migraine G43.409 Syncope and collapse R55 Hypertensive urgency I16.0 Complicated migraine G43.109 History of stroke Z86.73 Head injury S09.90XA Isolation/Infection: Isolation No Isolation Patient Infection Status None to display Nurse Assessment: Last Vital Signs: BP (!) 185/87 Pulse 81 Temp 98.3 F (36.8 C) (Oral) Resp 15 Ht 5' 5 (1.651 m) Wt 232 lb 11.2 oz (105.6 kg) SpO2 100% BMI 38.72 kg/m Last documented pain score (0-10 scale): Pain Level: 9 Last Weight: Wt Readings from Last 1 Encounters: 08/31/20 232 lb 11.2 oz (105.6 kg) Mental Status: oriented and alert IV Access: - None Nursing Mobility/ADLs: Walking Assisted Transfer Assisted Bathing Assisted Dressing Independent Toileting Assisted Feeding Independent Carbider Independent Med Delivery whole Wound Care Documentation and Therapy: Elimination: Continence: Bowel: Yes Bladder: Yes Urinary Catheter: None Colostomy/Ileostomy/Ileal Conduit: No Date of Last BM: 09/01/2020 Intake/Output Summary (Last 24 hours) at 09/01/2020 1136 Last data filed at 09/01/2020 0000 Gross per 24 hour Intake Output 1000 ml Net -1000 ml I/O last 3 completed shifts: In: - Out: 1000 [Urine:1000] Safety Concerns: At Risk for Falls Impairments/Disabilities: Paralysis - left hemiplegia Nutrition Therapy: Current Nutrition Therapy: - Oral Diet: General Routes of Feeding: Oral Liquids: No Restrictions Daily Fluid Restriction: no Last Modified Barium Swallow with Video (Video Swallowing Test): not done Treatments at the Time of Hospital Discharge: Respiratory Treatments: none Oxygen Therapy: is not on home oxygen therapy. Ventilator: - No ventilator support Rehab Therapies: Physical Therapy, Occupational Therapy and Speech/Language Therapy Weight Bearing Status/Restrictions: No weight bearing restirctions Other Medical Equipment (for information only, NOT a DME order): walker Other Treatments: none Patient's personal belongings (please select all that are sent with patient): None RN SIGNATURE: CASE MANAGEMENT/SOCIAL WORK SECTION Inpatient Status Date: 08/31/2020 Readmission Risk Assessment Score: Readmission Risk Risk of Unplanned Readmission: 9 Discharging to Facility/ Agency Name: [facility] FAX [address] [facility] [address] Address: Phone: Fax: Dialysis Facility (if applicable) Name: Address: Dialysis Schedule: Phone: Fax: [facility] Induction/Accident Investigator signature: EDT PHYSICIAN SECTION Prognosis: Good Condition at Discharge: Stable Rehab Potential (if transferring to Rehab): {Prognosis:[id number]} Recommended Labs or Other Treatments After Discharge: Physician Certification: I certify the above information and transfer of Yeyo Avila is necessary for the continuing treatment of the diagnosis listed and that she requires Home Care for less 30 days. Update Admission H&P: No change in H&P PHYSICIAN SIGNATURE: * Additional Instructions* Jose Daniel Tee RN - 09/01/2020 Discharge Instructions for Trauma What to do after you leave the hospital: General questions or concerns may be called to the trauma nurse line at [phone] and please leave a message. Trauma is a life-threatening condition. Your doctor will want to closely monitor you. Be sure to goto all of your appointments. * Attachments The following attachments cannot be sent through Care Everywhere. * Fall Prevention (Telugu) * Falls: Get Up Safely Instruction (Telugu) * Vasovagal Syncope (Telugu) documented in this encounter History of Present Illness * Debi Marques, OT - 09/01/2020 2:46 PM EDT Occupational Therapy Occupational Therapy Initial Assessment Date: 09/01/2020 Patient Name: Yeyo Avila : 1955 Date of Service: 09/01/2020 Discharge Recommendations: Further therapy recommended at discharge. Assessment Performance deficits / Impairments: Decreased functional mobility ;Decreased ADL status;Decreased ROM;Decreased strength;Decreased endurance;Decreased sensation;Decreased balance;Decreased high-levelIADLs;Decreased fine motor control Assessment: pt would benefit from further therapy at discharge in order to increase independence with ADLS and functional mobility. pt limited by decreased fine motor coordination and sensation to L UE impacting ability to participate in daily tasks. Treatment Diagnosis: fall Prognosis: Good Decision Making: Medium Complexity Patient Education: pt ed on POC, purpose of eval, benefits of therapy, importance of incorporating L UE into functional tasks, benefits of AAROM, step- to gait, AE, increasing sensation to L UE. good return REQUIRES OT FOLLOW UP: Yes Activity Tolerance Activity Tolerance: Patient Tolerated treatment well Safety Devices Safety Devices in place: Yes Type of devices: Gait belt;Patient at risk for falls;Call light within reach;Left in bed Restraints Initially in place: No Patient Diagnosis(es): The encounter diagnosis was Injury of head, initial encounter. has no past medical history on file. has no past surgical history on file. Treatment Diagnosis: fall Restrictions Restrictions/Precautions Restrictions/Precautions: Fall Risk Required Braces or Orthoses?: No Position Activity Restriction Other position/activity restrictions: CTLS clear, up as tolerated, Hx of CVA Subjective General Patient assessed for rehabilitation services?: Yes Family / Caregiver Present: No Diagnosis: fall General Comment Comments: RN ok'd for therapy this afternoon. Pt agreeable to participate in session and cooperative/pleasant throughout Patient Currently in Pain: Yes Pain Assessment Pain Assessment: 0-10 Pain Level: 7 Pain Type: Chronic pain Pain Location: Head Non-Pharmaceutical Pain Intervention(s): Ambulation/Increased Activity;Distraction;Therapeutic presence Response to Pain Intervention: Patient Satisfied Oxygen Therapy O2 Device: None (Room air) Social/Functional History Social/Functional History Lives With: Spouse Type of Home: House(duplex on bottom level) Home Layout: One level Home Access: Stairs to enter with rails Entrance Stairs - Number of Steps: 3 Entrance Stairs - Rails: Both Bathroom Shower/Tub: Walk-in shower, Shower chair with back Bathroom Toilet: Standard Bathroom Equipment: Toilet raiser, Grab bars around toilet, Grab bars in shower, Shower chair, Hand-held shower Home Equipment: Standard walker, Rolling walker, 4 wheeled walker, Cane, Quad cane, Crutches, Ibm Mainframe Developer, Sock aid(pt reported no use of DME at baseline) ADL Assistance: Independent Homemaking Assistance: Independent Homemaking Responsibilities: Yes Meal Prep Responsibility: Primary Laundry Responsibility: Primary Cleaning Responsibility: Primary Ambulation Assistance: Independent Transfer Assistance: Independent Active Automotive Mechanic: Yes Mode of Transportation: Car 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 pt reported daughter ableto stay if needed Objective Vision: Impaired Vision Exceptions: Wears glasses at all times Hearing: Exceptions to WFL(pt reported difficulty with hearing out of L ear) Hearing Exceptions: Hard of hearing/hearing concerns Orientation Overall Orientation Status: Within Functional Limits Balance Sitting Balance: Modified independent (~20 minutes on EOB) Standing Balance: Contact guard assistance(with RW) Standing Balance Time: ~3 minutes Activity: pt completed functional mobility to doorway and back to bed Comment: pt ed on utilizing step-to gait due to pt reported feeling like L LE was going to [facility] functional mobility. pt with no LOB ADL Feeding: Modified independent ;Increased time to complete;Setup Grooming: Setup;Increased time to complete;Minimal assistance UE Bathing: Minimal assistance;Increased time to complete;Setup LE Bathing: Increased time to complete;Setup;Moderate assistance UE Dressing: Increased time to complete;Setup;Moderate assistance LE Dressing: Increased time to complete;Setup;Moderate assistance Toileting: Moderate assistance Additional Comments: OT facilitated pt in donning/doffing R socks while sitting on EOB. pt able to doffing sock with increased time and SBA, but required mod A for donning sock Tone RUE RUE Tone: Normotonic Tone LUE LUE Tone: Normotonic Coordination Movements Are Fluid And Coordinated: No Coordination and Movement description: Fine motor impairments;Decreased speed;Left UE;Gross motor impairments Quality of Movement Other Comment: pt able to oppose all digits to thumb, except 5th digit, but required significantly increased time to complete. Pt also exhibited decreased gross motor movements Bed mobility Supine to Sit: Contact guard assistance Sit to Supine: Minimal assistance(for B LE progression) Scooting: Contact guard assistance Transfers Sit to stand: Minimal assistance Stand to sit: Contact guard assistance Transfer Comments: with RW Cognition Overall Cognitive Status: WFL Sensation Overall Sensation Status: Impaired(pt reported N/T to L UE and L LE. pt unable to identify when play writer was touching L UE (on elbow and distally) with eyes closed, but was able to identify on R UE) LUE AROM (degrees) LUE AROM : Exceptions L Shoulder Flexion 0-180: WFL AAROM L Elbow Flexion 0-145: 0-90 AAROM Left Hand AROM (degrees) Left Hand AROM: Exceptions Left Hand General AROM: pt able to extend all digits but unable to complete full flexion of all digits at MCP and PIP joints RUE AROM (degrees) RUE AROM : WFL Right Hand AROM (degrees) Right Hand AROM: WFL LUE Strength Gross LUE Strength: Exceptions to WFL L Shoulder Flex: 1/5 L Hand General: 1/5 RUE Strength Gross RUE Strength: WFL R Hand General: 5/5 Plan Plan Times per week: 3-5x/wk AM-PAC Score [facility] Inpatient Daily Activity Raw Score: 16 (09/01/20 144) AM-PAC Inpatient ADL T-Scale Score : 35.96 (09/01/20 144) ADL Inpatient CMS 0-100% Score: 53.32 (09/01/20 144) ADL Inpatient CMS G-Code Modifier : CK (09/01/201440) Goals Short term goals Time Frame for Short term goals: pt will, by discharge Short term goal 1: complete LB ADLs and toileting tasks with min A, set up and AE, as needed Short term goal 2: complete UB ADLs and grooming tasks with CGA, set up and modified tech Short term goal 3: increase activity tolerance to 25+ minutes in order to participate in daily tasks Short term goal 4: ind incorporate L UE into functional tasks in order to increase ROM and strength Short term goal 5: participate in ~6 minutes fine motor activity in order to increase coordination and coding coordinator strength to L hand Short term goal 6: dem SBA during functional transfers/functional mobility with LRD, as needed Therapy Time Individual Concurrent Group Co-treatment Time In 1316 Time Out 1404 Minutes 48 Variance: 40 Debi Marques OTR/L * Taya Bergeron, PHOTOVOLTAIC PANEL INSTALLER - 09/01/2020 11:39 AM EDT Speech Language Pathology Facility/Department: [address] ORTHO/MED SURG Initial Speech/Language/Cognitive Assessment NAME: Yeyo Avila : 1955 ADMISSION DATE: 08/30/2020 ADMITTING DIAGNOSIS: has Fall; Hemiplegic migraine; Syncope and collapse; Hypertensive urgency; Complicated migraine; History of stroke; and Head injury on their problem list. Date of Eval: 09/01/2020 Evaluating Therapist: Debi Andrade Primary Complaint: Yeyo Avila is a 64 y.o. female with history of stroke and falling who fell upon standing from the toilet tonight, upon which she hit her head on the bathtub. +LOC, on Plavix. Taken to [facility] where a stroke alert was initiated. CT head at 6pm today at [facility] did not show intracranial bleed. Transferred to [place] for trauma and neurology work-up. Upon arrival, Pt without neurological deficit, GCS 15, c/o REYNA. Pt deemed hemodynamically stable and was sent to CT. Pain: Pain Assessment Pain Assessment: Faces Pain Level: 0 Assessment: Pt presents with mild-moderate cognitive deficits characterized by difficulty with immediate and short-term memory, verbal reasoning skills, and word associations. Pt. SOKAOGON, which may haveaffected results of evaluation. Multiple repetitions provided throughout evaluation. Pt. Presents with no dysarthria, no O/M deficits at this time. ST to follow up and provide treatment to address noted deficits. Education provided. Recommendations: Requires PHOTOVOLTAIC PANEL INSTALLER Intervention: Yes Duration/Frequency of Treatment: 3-5X/week D/C Recommendations: Further therapy recommended at discharge. Plan: Goals: Short-term Goals Goal 1: Pt will complete word association tasks with 90% accuracy Goal 2: Pt will recall 3-5 units with and without distractions with 90% accuracy Goal 3: Pt will complete verbal reasoning tasks with 90% accuracy Goal 4: Pt. Will utilize memory compensatory strategies to aid in recall. Patient/family involved in developing goals and treatment plan: yes Subjective: General Chart Reviewed: Yes Patient assessed for rehabilitation services?: Yes Family / Caregiver Present: No Social/Functional History Lives With: Spouse Vision Vision: Impaired Vision Exceptions: Wears glasses at all times Hearing Hearing: Exceptions to WFL Hearing Exceptions: Hard of hearing/hearing concerns Objective: Oral/Motor Oral Motor: Within functional limits Motor Speech Motor Speech: Within Functional Limits Cognition: Orientation Overall Orientation Status: Within Normal Limits Attention Attention: Within Functional Limits Memory Memory: Exceptions to WFL Short-term Memory: Mild(1/3; 3/3) immediate Memory: Mild(Immediate Recall: 2/3; 4/5; 2/3) Problem Solving Problem Solving: Exceptions to WFL Verbal Reasoning Skills: Moderate(Opposites: 2/4) Safety/Judgement Safety/Judgement: Within Functional Limits Word Associations: Moderate (3/5) Sequencing: Within Functional Limits Word Generation: Within Functional Limits Prognosis: Speech Therapy Prognosis Prognosis: Fair Individuals consulted Consulted and agree with results and recommendations: Patient Education: Patient Education: yes Patient Education Response: Verbalizes understanding Therapy Time: Individual Concurrent Group Co-treatment Time In 1114 Time Out 1126 Minutes 12 Completed by: Debi Andrade Surgical Elastic Knitter Hand Frame Clinician Cosigned By: Taya Bergeron M.A.CCC/PHOTOVOLTAIC PANEL INSTALLER 09/01/2020 11:40 AM * Caleb Jefferson MD - 09/01/2020 10:26 AM EDT PROGRESS NOTE PATIENT NAME: Yeyo Avila DATE: 09/01/2020 SURGEON: Lucille PRIMARY CARE PHYSICIAN: Robin Ponce MD HD: # 2 ASSESSMENT Patient Active Problem List Diagnosis Fall Hemiplegic migraine Syncope and collapse Hypertensive urgency Complicated migraine History of stroke Head injury MEDICAL DECISION MAKING AND PLAN 1. Follow up neurosurgery recommendations 2. ECHO read pending 3. Tylenol pain control 4. DVT ppx Lovenox 40mg daily 5. CV: ASA and Plavix, labetalol PRN 6. PT/OT 7. Dispo: If patient tolerates physical therapy, anticipate discharge CC: I have a headache SUBJECTIVE Yeyo Avila is doing well this morning. She has a mild headache but overall fells better. She is eagar to go home today. Bilateral weakness has improved on the right. Back to baseline on left side from previous stroke. Patient is tolerating diet. Denies nausea, vomiting and SOB. OBJECTIVE VITALS: Temp: Temp: 98.3 F (36.8 C)Temp Av.3 F (36.8 C) Min: 98 F (36.7 C) Max: 98.7 F (37.1 C) BP Systolic (24hrs), Av , Min:158 , Max:186 Diastolic (24hrs), Av, Min:76, Max:95 Pulse Pulse Av Min: 81 Max: 89 Resp Resp Av.2 Min: 15 Max: 21 Pulse ox SpO2 Av.9 % Min: 95 % Max: 100 % GENERAL: alert, no distress NEURO: positive findings: baseline left upper and lower extremity weakness HEENT: PERRLA, mucosal membranes moist, forehead/ anterior skull tender. Trachea midline. : deferred LUNGS: symmetrical rise and fall of chest, no acute respiratory distress HEART: normal rate and regular rhythm ABDOMEN: soft, non-tender and non-distended EXTERMITY: No joint tenderness or erythema Drain/tube output: In: - Out: 1000 [Urine:1000] LAB: CBC: Recent Labs 08/30/20 2234 09/01/20 0515 09/01/20 0529 WBC 8.7 DUPLICATE ORDER 9.4 HGB 12.3 DUPLICATE ORDER 12.7 HCT 38.2 DUPLICATE ORDER 40.7 MCV 89.7 DUPLICATE ORDER 90.0 PLT 268 DUPLICATE ORDER 251 BMP: Recent Labs 08/30/20223309/01/2051409/01/2029 NA 139 DUPLICATE ORDER 140 K 3.5* DUPLICATE ORDER 4.0 CL 106 DUPLICATE ORDER 106 CO2 23 DUPLICATE ORDER 21 BUN 11 DUPLICATE ORDER 10 CREATININE 0.62 DUPLICATE ORDER 0.53 GLUCOSE 186* DUPLICATE ORDER 169* COAGS: Recent Labs 08/30/20223309/01/20514 APTT 24.4 PENDING INR 1.0 PENDING RADIOLOGY: No new imaging Christina Curtis MD 09/01/20, 10:26 AM Attending Note I have reviewed the above GCS note(s) and I either performed the gbibs elements of the medical history and physical exam or was present with the trauma resident when the gibbs elements of the medical history and physical exam were performed. I have discussed the findings, established the care plan and recommendations with the trauma team. Resting comfortably. No significant traumatic issues. W/u per neurology. Discharge planning. Caleb Jefferson MD 09/01/2020 4:00 PM * Nader Petit, GLOVE BOARDER - 09/01/2020 10:02 AM EDT Physical Therapy Facility/Department: [address] ORTHO/MED SURG Daily Treatment Note NAME: Yeyo Avila : 1955 Date of Service: 09/01/2020 Discharge Recommendations: Patient would benefit from continued therapy after discharge Assessment Body structures, Functions, Activity limitations: Decreased functional mobility ;Decreased strength;Decreased endurance;Decreased sensation;Decreased balance;Decreased cognition;Increased pain;Decreased posture;Decreased coordination;Decreased fine motor control Assessment: CGA for bed mobility. Ambulated ~20ft with CGA and RW. Pt Asc/Dsc 4 steps with B handrails and CGA. Pt demonstrates significant decrease in L sided function and is a fall risk. Pt would benefit from continued PT services to address balance and coordination deficits. Prognosis: Good PT Education: Goals;PT Role;Plan of Care;General Safety;Gait Training;Home Exercise Program;Adaptive Device Training Patient Education: Safe use of RW Barriers to Learning: SOKAOGON REQUIRES PT FOLLOW UP: Yes Activity Tolerance Activity Tolerance: Patient limited by fatigue;Patient limited by endurance Activity Tolerance: LLE fatigued after Ther Ex and AMB Patient Diagnosis(es): The encounter diagnosis was Injury of head, initial encounter. has no past medical history on file. has no past surgical history on file. Restrictions Restrictions/Precautions Restrictions/Precautions: General Precautions, Fall Risk, Up as Tolerated Required Braces or Orthoses?: No Position Activity Restriction Other position/activity restrictions: CTLS clear Subjective General Chart Reviewed: Yes Family / Caregiver Present: No Subjective Subjective: RN and pt in agreement to PT today. Pt supine in bed upon arrival. Pt reported that theleft side of her face hurts a little and that she feels achy from not moving much Pain Screening Patient Currently in Pain: Yes Pain Assessment Pain Assessment: Faces Torrez-Cuadra Pain Rating: Hurts little more Pain Type: Acute pain Pain Location: Generalized Pain Descriptors: Aching Non-Pharmaceutical Pain Intervention(s): Repositioned;Rest;Ambulation/Increased Activity;Distraction Response to Pain Intervention: Patient Satisfied Multiple Pain Sites: Yes Pain 2 Pain Rating 2: 4 Pain Type 2: Acute Pain Pain Location 2: Face Pain Orientation 2: Left Pain Descriptors 2: Aching Vital Signs Patient Currently in Pain: Yes Orientation Orientation Overall Orientation Status: Within Normal Limits Objective Bed mobility Supine to Sit: Contact guard assistance Sit to Supine: Contact guard assistance Scooting: Contact guard assistance Comment: HOB upright Transfers Sit to Stand: Contact guard assistance Stand to sit: Contact guard assistance Comment: Performed w RW Ambulation Ambulation?: Yes Ambulation 1 Surface: level tile Device: Rolling Walker Assistance: Contact guard assistance Gait Deviations: Slow Yudith;Decreased step height;Decreased step length Distance: 20ft Stairs: Pt Asc/Dsc 4 (8 ) steps with B handrails and CGA Balance Posture: Fair Sitting - Static: Good;- Sitting - Dynamic: Fair;+ Standing - Static: Fair Standing - Dynamic: Fair Exercises Heelslides: BLE x15 Hip Flexion: BLE x15 Hip Abduction: BLE x15 supine and seated Knee Long Arc Quad: BLE x15 Ankle Pumps: BLE x15 Goals Short term goals Time Frame for Short term goals: 14 visits Short term goal 1: Pt to perform bed mobility with modified independence Short term goal 2: Pt to perform functional transfers w least restrictive device and SBA Short term goal 3: Pt to ambulate 100 ft w least restrictive device and SBA Short term goal 4: Pt to demo good - standing dynamic balance to reduce risk of falls Short term goal 5: Pt to negotiate 3 stairs with CGA and use og 1 HR to simulate home environment Plan Plan Times per week: 5-6x/wk Times per day: Daily Current Treatment Recommendations: Strengthening, Balance Training, Functional Mobility Training, Transfer Training, Stair training, Gait Training, Neuromuscular Re-education, Home Exercise Program, Safety Education & Training, Patient/Caregiver Education & Training, Endurance Training Safety Devices Type of devices: All fall risk precautions in place, Call light within reach, Nurse notified, Gait belt, Left in chair, Patient at risk for falls Restraints Initially in place: No Therapy Time Individual Time In 1002 Time Out 1046 Minutes 44 Timed Code Treatment Minutes: 40 Minutes GLOVE BOARDER returned to pt's room to have her attempt stair management, to return home safely Individual Individual Time In 1140 Time Out 1205 Minutes 25 Timed Code Treatment Minutes: 9 Minutes (a doctor interrupted PT, to assess the pt) Nader Petit, GLOVE BOARDER * Debi Marques OT - 09/01/2020 8:34 AM EDT Occupational Therapy Not Seen Note DATE: 09/01/2020 Name: Yeyo Avila : 1955 Patient not available for Occupational Therapy due to: Testing echo Next Scheduled Treatment: check back later as able or 09/02/2020 * Pérez Gotti - 09/01/2020 8:05 AM EDT Echo done in echo lab. * Molly Lyons RN - 09/01/2020 1:00 AM EDT Patient's BP is 186/76. HR 89. Notified Dr. Madison via [employer]. Will continue to monitor. * Kiara Luna, PT - 08/31/2020 3:09 PM EDT Physical Therapy Facility/Department: [facility] ED Initial Assessment NAME: Yeyo Avila : 1955 Chief Complaint Patient presents with Fall Trauma Date of Service: 08/31/2020 Discharge Recommendations: Further therapy recommended at discharge. Pt is a fall risk and requires assistance for all mobility based on pt presentation this date. The patient should be able to tolerate at least three hours oftherapy per day over 5 days or 15 hours over 7 days. PT Equipment Recommendations Equipment Needed: No(Pt reports ownding RW, 4WW, crutches, cane) Assessment Body structures, Functions, Activity limitations: Decreased functional mobility ;Decreased strength;Decreased endurance;Decreased sensation;Decreased balance;Decreased cognition;Increased pain;Decreased posture;Decreased coordination;Decreased fine motor control Assessment: Pt ambulated 2 ft to HOB w CGA and RW. Pt sat EOB ~ 8 min. Pt required maxA for bed mobility for LLE progression. Pt demonstrates significant decrease in L sided function and is a fall risk. Pt would be unsafe to return to prior living arrangements. Pt would benfit from continued PT services to address balance and coordination deficits. Prognosis: Good Decision Making: Medium Complexity PT Education: Goals;PT Role;Plan of Care;General Safety;Gait Training;Transfer Training;Precautions Barriers to Learning: none REQUIRES PT FOLLOW UP: Yes Activity Tolerance Activity Tolerance: Patient limited by fatigue;Patient limited by endurance Activity Tolerance: Pt limited by coordination Patient Diagnosis(es): The encounter diagnosis was Injury of head, initial encounter. has no past medical history on file. has no past surgical history on file. Restrictions Restrictions/Precautions Restrictions/Precautions: General Precautions, Fall Risk, Up as Tolerated Required Braces or Orthoses?: No Position Activity Restriction Other position/activity restrictions: CTLS clear Vision/Hearing Vision: Impaired Vision Exceptions: (Pt reports new B blurred vision) Hearing: Exceptions to WFL Hearing Exceptions: (Hearing assessed: Diminished hearing in R more than L. Pt reports upcoming appointment for hearing aides) Subjective General Chart Reviewed: Yes Family / Caregiver Present: No Follows Commands: Within Functional Limits Subjective Subjective: RN and pt in agreement to eval/ treat. Pt supine in bed upon arrival. Pt distressed butpleasant and cooperative throughout. Pain Screening Patient Currently in Pain: Yes Pain Assessment Pain Assessment: 0-10 Pain Level: 9 Pain Type: Acute pain Pain Location: Head;Back Pain Frequency: Continuous Non-Pharmaceutical Pain Intervention(s): Repositioned;Ambulation/Increased Activity Response to Pain Intervention: Patient Satisfied Vital Signs Patient Currently in Pain: Yes Orientation Orientation Overall Orientation Status: Within Functional Limits(AAOx4. Pt reports distress about not remembering prior events) Social/Functional History Social/Functional History Lives With: Spouse Type of Home: Apartment Home Layout: One level(First story) Home Access: Stairs to enter with rails Entrance Stairs - Number of Steps: 3 Entrance Stairs - Rails: Both Bathroom Shower/Tub: Walk-in shower Bathroom Toilet: Handicap height Bathroom Equipment: Grab bars around toilet, Toilet raiser, Grab bars in shower Home Equipment: Crutches, Cane, Rolling walker, 4 wheeled walker(Pt reports not using AD at baseline. 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 PROM: DF WFL ROM RUE: WFL ROM LUE: AROM: shoulder abduction ~40 deg PROM WFL. PROM: shoulder abduction WFL Strength RLE Strength RLE: WFL Comment: grossly 4+/5 Strength LLE Strength LLE: Exception L Hip Flexion: 3-/5 L Knee Flexion: 3-/5 L Knee Extension: 3-/5 L Ankle Dorsiflexion: 3-/5 L Ankle Plantar Flexion: 3/5 Strength RUE Strength RUE: WFL Strength LUE Strength LUE: Exception Comment: Grossly 3-/5 Tone RLE RLE Tone: Normotonic Tone LLE LLE Tone: Hypotonic Motor Control Gross Motor?: Exceptions Comments: Unable to initiate motion in all planes on LUE/LLE Sensation Overall Sensation Status: Impaired(Pt demonstrates L sided numbness at foot and leg. Pt reports sensation of pressure but dimished sensation at lateral thigh. Pt reports chronic L sided tingling during migraines.) Bed mobility Supine to Sit: Maximum assistance(For LLE progression) Sit to Supine: Maximum assistance(For LLE progression) Scooting: Stand by assistance Comment: Performed w HOB elevated ~50 deg. Transfers Sit to Stand: Contact guard assistance Stand to sit: Contact guard assistance Comment: Performed w RW. Pt cued for foot placement to prevent posterior fall. Performed twice during session. Ambulation Ambulation?: Yes More Ambulation?: No Ambulation 1 Surface: level tile Device: Rolling Walker Assistance: Contact guard assistance Quality of Gait: Uncoordinated, laterally leans leans trunk to promote Hip adduction. Limited gait with report of dizziness with mobility. Pt reports high levels of fatigue and unable to ambulate further distance. Gait Deviations: Slow Yudith;Decreased step height;Decreased step length Distance: 2 ft Stairs/Curb Stairs?: No Balance Posture: Fair Sitting - Static: Good;- Sitting - Dynamic: Fair;+ Standing - Static: Fair Standing - Dynamic: Fair Comments: Standing balance assessed w RW. Plan Plan Times per week: 5-6x/wk Times per day: Daily Current Treatment Recommendations: Strengthening, Balance Training, Functional Mobility Training, Transfer Training, Stair training, Gait Training, Neuromuscular Re-education, Home Exercise Program, Safety Education & Training, Patient/Caregiver Education & Training, Endurance Training Safety Devices Type of devices: All fall risk precautions in place, Call light within reach, Left in bed, Nurse notified, Gait belt Restraints Initially in place: No AM-PAC Score AM-PAC Inpatient Mobility Raw Score : 13 (08/31/201509) AM-PAC Inpatient T-Scale Score : 36.74 (08/31/201509) Mobility Inpatient CMS 0-100% Score: 64.91 (08/31/201509) Mobility Inpatient CMS G-Code Modifier : CL (08/31/201509) Goals Short term goals Time Frame for Short term goals: 14 visits Short term goal 1: Pt to perform bed mobility with modified independence Short term goal 2: Pt to perform functional transfers w least restrictive device and SBA Short term goal 3: Pt to ambulate 100 ft w least restrictive device and SBA Short term goal 4: Pt to demo good - standing dynamic balance to reduce risk of falls Short term goal 5: Pt to negotiate 3 stairs with CGA and use og 1 HR to simulate home environment Therapy Time Individual Concurrent Group Co-treatment Time In 1347 Time Out 1426 Minutes 39 Timed Code Treatment Minutes: 24 Minutes Cammie Jason Evaluation/treatment performed by Student PT under the supervision of co-signing PT who agrees withall evaluation/treatment and documentation. * Angelina Madison MD - 08/31/2020 2:57 AM EDT C- Spine Evaluation for Spine Clearance: Pt is a 64 y.o. female who was admitted on 08/30/2020 s/p fall SH. Pt w/ complaints of her typical chronic back pain. C-Spine precautions of C-collar with spinal neutrality maintained since arrival with current exam directed at further evaluation of spine for clearance purposes. Pt chart and current images reviewed. CT C-Spine negative for acute fracture, subluxation, or traumatic injury. Patient does not have a distracting injury, is not acutely intoxicated and is alert, oriented and fully able to participate in exam. Pt denies c-spine pain while resting in c-collar. C-collar removed w/ c-spine neutrality maintained. Pt denies midline pain with palpation of spinous processes and axial loading. Pt demonstrated fullflexion, extension, and SB ROM without complaints of pain. TLS precautions of supine position maintained since arrival. Pt denies midline pain with palpation of spinous processes. CT dorsal lumbar negative for acute fracture, subluxation, or traumatic injury. C-spine is considered cleared w/out need for further imaging, evaluation, or continuation of c-collar. TLS considered clear w/out need for further imagine, evaluation, or continuation of supine bedrest precautions. 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 without mention of status migrainosus Syncope and collapse Hypertensive urgency Unspecified essential hypertension Complicated migraine Migraine with aura, without mention of intractable migraine without mention of status migrainosus History of stroke Transient ischemic attack (TIA), and cerebral infarction without residual deficits Chief Complaint and Reason for Visit Chief Complaint c67.9 Additional Source Comments INFORMATION SOURCE (unrecogn ized section and content) DATE CREATED AUTHOR 04/06/2019 [facility] DATE CREATED AUTHOR AUTHOR'S ORGANIZ ATION 09/12/2020 [facility] DATE CREATED AUTHOR AUTHOR'S ORGANIZ ATION 03/28/2021 [facility] DATE CREATED AUTHOR AUTHOR'S ORGANIZ ATION 03/03/2022 [facility] DATE CREATED AUTHOR AUTHOR'S ORGANIZ ATION 04/25/2023 [facility] DATE CREATED AUTHOR AUTHOR'S ORGANIZ ATION 07/09/2023 [facility] DATE CREATED AUTHOR AUTHOR'S ORGANIZ ATION 07/13/2023 [facility] Reason for Visit (unrecogniz ed section and content) Reason Comments Fall Trauma Status Reason Specialty Diagnoses / Procedures Referre d By Contact Referred To Contact Diagnoses Syncope and collapse Procedures Syncope and collapse Hermelindo Adkins MD [facility] [id number], [phone] [place] [address] [facility] Care Teams (unrecognized sec tion and content) Personnel Name: Robin Ponce MD Address: Address: [address] [place] [address] Team Status: Inactive Member Role Status Dates Shaikh Mary MD Primary Care Provider Active Ese Tan MD Attending Provider Active Team Status: Active Member Role Status Dates Shaikh Mary MD Primary Care Provider Active Goals (unrecognized section and content) Goals may be documented in a n alternate section No data available for this section No data available for this section FOR RECORDS PERTAINING TO PATIENTS WHO ARE OR HAVE BEEN ENROLLED IN A CHEMICAL DEPENDENCY/SUBSTANCEABUSE PROGRAM, SOME INFORMATION MAY BE OMITTED. This clinical summary was aggregated from multiple sources. Caution should be exercised in using it in the provision of clinical care. This summary normalizes information from multiple sources, and as a consequence, information in this document may materially change the coding, format and clinical context of patient data. In addition, data may be omitted in some cases. CLINICAL DECISIONS SHOULD BE BASED ON THE PRIMARY CLINICAL RECORDS. [facility] provides no warranty or guarantee of the accuracy or completeness of information in this document.
[2023-11-13] MEDS: LACTATED RINGER'S SOLUTION 1,000 ML 50 ML IV (11:20)
[2023-11-13] MEDS: CEFAZOLIN SODIUM/DEXTROSE,ISO 1 GM/50 ML IV.SOLN IV (13:12)
--- NOTE | 2023-11-13 13:47 | PM.URSON ---
Urology Surgery Operative Note Operative Note Procedure Date: 11/13/23 Time Out Performed: yes Pre-op Diagnosis: Left renal calculus Post-op Diagnosis: same as pre-op Procedures performed: 1. Cystoscopy. 2. Placement of 6 Albanian variable length left ureteral stent Anesthesia: General-LMA Primary Surgeon: Arturo Doran Complications: None Estimated blood loss (mL): 0 Findings: Left renal pelvis stone Specimens: None Drains: 6 Albanian variable length left ureteral stent Indications for Procedures: This lady has a 1.4 cm left renal pelvis stone causing pain. She now presents for cystoscopy and left stent placement. She has signed an informed consent. Detailed description of Procedure: The patient was brought to the operating room and placed on the operating room table in the supine position. SCDs were placed on the lower extremities and turned on and functioning during the entire case. Timeout was done by all parties in the room. We all agreed upon the patient's identification and the planned procedures for this patient. Genn. anesthesia was then administered. The patient was then repositioned into the modified dorsal lithotomy position. All pressure points were satisfactorily padded. Genitalia were sterilely prepped and draped in usual fashion. I started by passing a 22 Albanian Olympus cystoscope per urethra and into the bladder. Careful duran endoscopy in the bladder showed no evidence of any tumors stones or erythematous mucosal lesions. While using fluoroscopy I was unable to clearly see the stone in the area of the renal pelvis. I could not do a retrograde pyelogram due to her iodine allergy. I then passed a Glidewire through the scope and cannulated the left ureter. The wire went up to the L1 position and it then curled upon itself presumedly within the renal pelvis. I then slid a 6 Albanian variable length ureteral stent over the wire and up to the kidney. The wire was removed and there were good curls in the kidney and in the bladder. The bladder was drained of its contents and the scope was then removed. She was then transferred to a [facility] bed and wheeled to PACU in stable condition. She will continue her Keflex. I have sent a prescription for oxybutynin ER 10 mg daily. We will bring her back in a few weeks and we will do definitive ureteroscopic laser lithotripsy.
[2023-11-13] MEDS: SOLIFENACIN SUCCINATE 10 MG TABLET PO (14:24)
--- NOTE | 2023-11-13 15:01 | PC.NURSE ---
Up to bathroom and voided pink clear urine; has urgency
== END 2023-11-13 15:02 | disposition home or self-care (01) ==
PROVIDERS: PCP Family Medicine; Visit Provider Urology
PROC: (CPT 52332; principal; 2023-11-13 12:05)
DX: N20.0 Calculus of kidney (principal); E78.5 Hyperlipidemia, unspecified; M79.7 Fibromyalgia; M19.90 Unspecified osteoarthritis, unspecified site; I10 Essential (primary) hypertension; Z79.01 Long term (current) use of anticoagulants; D64.9 Anemia, unspecified; Z85.51 Personal history of malignant neoplasm of bladder; J44.9 Chronic obstructive pulmonary disease, unspecified; I25.10 Atherosclerotic heart disease of native coronary artery without angina pectoris; E78.00 Pure hypercholesterolemia, unspecified; I51.9 Heart disease, unspecified; Z87.442 Personal history of urinary calculi; Z90.710 Acquired absence of both cervix and uterus; R35.1 Nocturia; R39.15 Urgency of urination; Z95.5 Presence of coronary angioplasty implant and graft; Z79.82 Long term (current) use of aspirin; Z79.4 Long term (current) use of insulin; Z79.02 Long term (current) use of antithrombotics/antiplatelets; N28.1 Cyst of kidney, acquired; F17.200 Nicotine dependence, unspecified, uncomplicated; E10.9 Type 1 diabetes mellitus without complications
CPT/HCPCS: 52332; 36415; 76000; J2704

== ENCOUNTER 2023-12-11 11:01 | Outpatient (OUT) | payer MEDICARE, SELFPAY ==
--- OUTSIDE RECORDS SUMMARY | 2023-12-11 11:05 | XMS_ITS | CCD ---
Author Name Unknown Address [address] [place] [address] Organization [facility] Care Team Providers Care Hand Packager Name Role Phone Robin Ponce Primary Care Provider HERMELINDO ADKINS Consulting Unavailable ROBIN PONCE Primary Care Unavailable HERMELINDO ADKINS Attending Unavailable HERMELINDO ADKINS Admitting Unavailable GENEVIEVE LINGDEBO Consulting Unavailable CONCEPCIÓN, EHAB A Attending Unavailable VIJAY PARDOAB A Admitting Unavailable ROBIN PONCE Referring Unavailable ROBIN PONCE Primary Care Unavailable MD Darby Hernandez Primary Care Provider [phone] MD Ese Tan Attending Provider SHAIKH HERNANDEZ Primary Care Physician [phone] DR DANK JOHNSON Admitting UnavailDR ROBIN Marie Primary Care Unavailable DR DANK JOHNSON Attending UnavailREYNA Ni Consulting UnavailLISSETT Simon Consulting Unavailable DR ROBIN SEGOVIA Primary Care Unavailable JEFFRY WILLIAMSON Admitting Unavailable SHELLEY II, TIMOTEO Consulting Unavailable TAMYAHAIRA Bingham JEFFRY Attending Unavailable JEFFRY WILLIAMSON Consulting Unavailable CHITO DE SOUZA Consulting Unavailable SHAIKH Enio HERNANDEZ Admitting Unavailable SHAIKH Enio HERNANDEZ Attending Unavailable SHAIKH Enio HERNANDEZ Primary Care Unavailable DR ROBIN SEGOVIA Admitting Unavailable DR ROBIN SEGOVIA Attending Unavailable DR ROBIN SEGOVIA Consulting Unavailable SHAIKH Enio HERNANDEZ Primary Care Unavailable MISC, DR SONI Admitting Unavailable MISC, DR DOCTOR Attending Unavailable MISC, DR SONI Consulting Unavailable KRSI ., DR KELLY Primary Care Unavailable KATELYN, DR MERCEDES Bates Consulting Unavailable MISC, DR SONI Attending Unavailable MISC, DR SONI Consulting Unavailable MISC, DR SONI Admitting Unavailable FAWWAD, TRENT H Primary Care Unavailable REGIS, DR ZELALEM Bates Admitting Unavailable FAWWAD, TRENT H Primary Care Unavailable REGIS, DR ZELALEM Bates Attending Unavailable REGIS, DR ZELALEM Bates Consulting Unavailable MIKAEL GUZMAN Consulting Unavailable Robin Ponce Primary Care Physician FAWWAD, TRENT Primary Care Unavailable DO Sunshine DUARTE Admitting Unavailabl e OJUKWU, Mbanefo Attending Unavailable Zaki Muñzo Attending Unavailable MRAY, TRENT Primary Care Unavailable Arturo DOLAN Attending Unavailable Arturo DOLAN Attending Unavailable JONO LOPEZ Attending Unavailable JONO LOPEZ Attending Unavailable ALEXIA CLINE Attending Unavailable Allergies Allergy Classification Reported Allergen(s) Allergy Type Date of Onset Reaction(s) Facility Angiotensin Converting Enzyme (RYANNE) Inhibitors (1 source) Lisinopril Drug Allergy [facility] Anti-Epileptic Agents (1 source) topiramate Drug Allergy 011 [facility] Berries (1 source) [place] Food Allergy 009 [facility] Cats (1 source) Cat Animal Allergy (Dander) [facility] Dextroamphetamine (1 source) Dextroamphetamine Drug Allergy 011 [facility] Iodine (and Iodine containting drugs) (1 source) Iodine (And Iodine Containting Drugs) Drug Allergy 012 [facility] Unclassified (2 sources) BLUE DYE; Translations: [BLUE DYE] Drug allergy (disorder) [facility] (6 sources) Aspirin; Translations: [Aspirin] Drug Allergy 016 Nausea [facility] Comment on above: uncoded aspirin (4 sources) atorvastatin; Translations: [atorvastatin] Drug Allergy 014 Unknown Reaction [facility] (7 sources) Lisinopril; Translations: [Lisinopril] Drug Allergy Swelling of Lip/Tongue/Th roat, morphine [facility] (2 sources) Morphine; Translations: [morphine] Drug Allergy [facility] (4 sources) strawberry allergenic extract; Translations: [[place]] Drug Allergy 011 [facility] (4 sources) topiramate; Translations: [topiramate] Drug Allergy Urticaria (disorder) [facility] (1 source) cat dander Allergy to substance [facility] (2 sources) Iodinated Contrast Media; Translations: [IODINATED CONTRAST MEDIA] Allergy to substance [facility] (3 sources) Contrast media; Translations: [Contrast Dye] Drug allergy Urticaria (disorder) [facility] (3 sources) [place]; Translations: [Strawberries] Drug allergy Urticaria (disorder) [facility] (3 sources) SUMAtriptan; Translations: [sumatriptan] Drug Allergy [facility] (1 source) Acetaminophen / Aspirin / Caffeine Drug Allergy [facility] Repository (2 sources) Dextroamphetamine; Translations: [Lipitor] Drug Allergy [facility] Rep[facility] (2 sources) Iodine (And Iodine Containting Drugs) Drug allergy (disorder) [facility] Rep[facility] (1 source) Ketorolac Drug Allergy [facility] Rep[facility] (1 source) Plasmin Drug Allergy [facility] Rep[facility] (3 sources) topiramate; Translations: [Topamax] Drug Allergy [facility] Rep[facility] (2 sources) Dhe Drug allergy (disorder) [facility] Rep[facility] (2 sources) Cat/Feline Product Derivatives Drug allergy (disorder) [facility] Repository (1 source) Iodine; Translations: [IODINE] Drug Allergy [facility] (1 source) CAT/FELINE PRODUCTS; Translations: [CAT/FELINE PRODUCTS] Propensity to adverse reactions to drug (disorder) 016 [facility] Medications Current Medications Medication Drug Class(es) Dates Sig (Normalized) Sig (Original) acetaminophen 325 mg oral tablet (1 source) Start: 08-31-2020 650 mg, Oral, EVERY 4 HOURS PRN, Pain Mild (1-3), Pain Mild (1-3) or Fever greater than 100.5 F (38 C), Starting [facility] 08/31/20 at 0353 Maximum dose of acetaminophen [...] by mouth every six hours as needed gkvswxhyfs-gkrynesrsqdyn-cthfzbxk (DAISY CET, ESGIC) 50-325-40 MG per tablet [...] for 3 day(s), 15 tab(s), Refill(s) 0, [facility]/pharmacy #[id number], 165, cm, 07/13/23 11:34:00 EDT, Height/Length Dosing, [...] 81 mg, Oral, DAILY, First dose on [facility] 08/31/20 at 0900 Do NOT administer if [...] mg, Oral, NIGHTLY, F irst dose on [facility] 08/31/20 at 2100 carvedilol 25 mg oral [...] chocolate. Start: 08-22-2020 take 1 capsule by [facility] once daily DULoxetine (CYMBALTA) 60 MG extended [...] 1321 Start: 06-01-2020 take 1 capsule by [facility] four times daily as needed for anxiety [...] due to poor endocardial border definition, Starting [facility] 08/31/20 at 0353, For 1 dose Echocardiogram [...] administer the echo contrast. polyethylene glycol 3350 57349 mg powder for oral solution (1 source) Osmotic Laxative Start: 08-31-2020 17 g, Oral, DAILY PRN, Constipation, Starting [facility] 08/31/20 at 0353 First line therapy for [...] (2 times per day), First dose on [facility] 08/31/20 at 0900 Start: 08-31-2020 take 10 mL intraveno us route once as needed 10 mL, Intravenous, PRN, Line Care, After every IV line use, Starting [facility] 08/31/20 at 0353 Start: 08-30-2020 0.9 % [...] 10 MIN PRN, High Blood Pressure, Starting [facility] 08/31/20 at 0353 Administer 10 mg IV [...] pulmonary disease, unspecified] Onset: 02-14-2023 12-05-2021 Chronic Congestive heart failure; nonhypertensive (3 sources) Heart failure, unspecified; Translations: [Chronic systolic (congestive) heart failure] Onset: 03-10-2023 Chronic Coronary atherosclerosis and other heart disease (10 sources) Coronary arteriosclerosis; Translations: [Atherosclerotic heart disease of [place] coronary artery without angina pectoris] Onset: 02-24-2023 [...] current use of drug therapy; Translations: [Other longterm (current) drug therapy] Onset: 02-24-2023 Episodic Other aftercare (1 source) skilled nursing (current) use of insulin; 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 Unclassified (1 source) PERSONAL HISTORY OF COVID-19; Translations: [PERSONAL HISTORY OF COVID-19] Onset: 04-03-2023 Unclassified (1 source) CONTACT W/AND (SUSP) EXPOS COVID-19; Translations: [CONTACT W/AND (SUSP) EXPOS COVID-19] Onset: 02-21-2023 Past or Other Problems Problem Classification Problem Date Documented Date Episodic/Chronic Conditions associated with dizziness or vertigo (2 sources) Dizziness and giddiness; Translations: [Dizziness and giddiness] Onset: 04-25-2023 Episodic E Codes: Fall (1 source) Unspecified fall, initial encounter; Translations: [UNSPECIFIED FALL INITIAL ENCOUNTER] Onset: 2022 Episodic Nonspecific chest pain (8 sources) Left sided chest pain; Translations: [Chest pain, unspecified] Onset: 03-10-2023 03-20-2021 Episodic Other aftercare (1 source) skilled nursing (current) use of antithrombotics/anti platelets; Translations: [NURSING HOME ANTITHROMBOT/ANTIPLA TLETS] Onset: 2022 Episodic Other aftercare (1 source) 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; Translations: [NURSING HOME CURRENT USE OF ASPIRIN] Onset: 2022 Episodic Other aftercare (1 source) skilled nursing (current) use of oral hypoglycemic drugs; Translations: [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 No family history on file Normal [facility] RAD - MISCon 11-19-2023 RAD - MISC [id number] #1.00TIFF Normal [facility] Consent for Procedure/Surger yon 11-13-2023 Consent for Procedure/Surgery [id number] #1.00TIFF Normal [facility] ECG 12-Leadon 11-13-2023 ECG 12-Lead [id number] #1.00TIFF Normal [facility] Lab Reportson 11-13-2023 Lab Reports [id number] #1.00TIFF Normal [facility] Operative Reporton Operative Report [id number] #1.00TIFF Normal [facility] RAD - MISCon 11-13-2023 RAD - MISC [id number] #1.00TIFF [facility] Ambulatory Visit Summaryon 01-13-2023 Ambulatory Visit Summary Normal [facility] Ambulatory Visit Summary Normal [facility] ECG 12-Leadon 11-12-2023 ECG 12-Lead [id number] #1.00TIFF Normal [facility] ED Note-Physicianon 11-12-20 ED Note-Physician [id number] #1.00TIFF [facility] Lab Reportson 11-12-2023 Lab Reports [id number] #1.00TIFF Normal [facility] Patient Educationon 11-12-20 Patient Education Normal [facility] RAD - CT Reporton 11-12-2023 RAD - CT Report [id number] #1.00TIFF Normal [facility] Urology Office/Clinic Noteon 11-12-2023 Urology Office/Clinic Note Normal [facility] Comment on above: Result Comment: Elec tronically Signed By: Arturo DOLAN MD\.br\Date and Time Signed: 11/12/23 10:49 EST\.br\Electronically Co-Signed By: Francie Myers\.br\Date and Time Co-Signed: 11/12/23 10:44 EST Consent for Treatmenton 06-18 Consent for Treatment [id number] #1.00CD:127 Normal [facility] Discharge Instructionson Discharge Instructions [id number] #1.00CD:127 Normal [facility] ED Clinical Summaryon 2022 ED Clinical Summary Normal [facility] ED Note-Physicianon 07-13-20 ED Note-Physician Normal [facility] Comment on above: Result Comment: Elec tronically Signed By: Mathew Montana PA-C\.br\Date and Time Signed: 07/13/23 12:04 EDT\.br\Electronically Co-Signed By: Zaki Muñoz M.D.\.br\Date and Time Co-Signed: 07/13/23 12:37 EDT ED Patient Education Noteon 07-13-2023 ED Patient Education Note Normal [facility] ED Patient Summaryon 023 ED Patient Summary Normal [facility] Office Visiton 07-08-2023 Follow-up visit [id number] Yeyo Avila 1955 F Date Provider Department Center 07/08/2023 120-ALEXIA CLINE BH CARD [facility] No family history on file Level of Service:17212 [place] OFFICE/OUTPATIENT ESTABLISHED MOD MDM 30-39 MIN Reason for Visit and Comments: Hospital Follow-up [832] - Chest pain Normal [facility] Office Visiton 04-25-2023 Follow-up visit [id number] Yeyo Avila 1955 F Date Provider Department Center 04/25/2023 [id number] LOPEZ CARD [facility] No family history on file Level of Service:96569 [place] OFFICE/OUTPATIENT ESTABLISHED LOW MDM 20-29 MIN Normal [facility] POINT OF CARE GLUCOSEon 03-19 Glucose [Mass/Vol] 90 mg/dL Normal 74-106 [facility] Comment on above: Performed By: #### P OCGLUC #### [facility] [address] [place] [address] Dr. Win Ardon CARDIAC STRESS TESTon 2022 [...] reported nuclear myocardial perfusion imaging. Normal [facility] CBC AUTO DIFFon 04-01-2023 BASO # 0.1 103/ul Normal 0.0-0.1 [facility] Comment on above: Performed By: #### C BC #### [facility] [address] [address] [address] Win Ardon Basophils/100 WBC (Bld) 1.3 % Normal 0.2-2.0 [facility] Comment on above: Performed By: #### C BC #### [facility] [address] [place] [address] Dr. Win Ardon EO # 0.4 103/ul Normal 0.0-0.[address] [facility] Comment on above: Performed By: #### C BC #### [facility] [address] [place] [address] Dr. Win Ardon Eosinophils/100 WBC (Bld) 4.1 % Normal 0.9-7.[address] [facility] Comment on above: Performed By: #### C BC #### [facility] [address] [place] [address] Dr. Win Ardon Erythrocyte distribution width (RBC) [Ratio] 13.3 % Normal 11.0-15.0 [facility] Comment on above: Performed By: #### C BC #### [facility] [address] [place] [address] Dr. Win Ardon Hematocrit (Bld) [Volume fraction] 38.9 % Normal 36.0-48.0 [facility] Comment on above: Performed By: #### C BC #### [facility] [address] [place] [address] Dr. Win Ardon Hemoglobin (Bld) [Mass/Vol] 13.2 g/dL Normal 12.0-16.0 [facility] Comment on above: Performed By: #### C BC #### [facility] [address] [place] [address] Dr. Win Ardon IG # 0.04 10e3/ul Critically high 0.00-0.03 [facility] Comment on above: Performed By: #### C BC #### [facility] [address] [place] [address] Dr. Win Ardon IG % 0.4 % Normal 0.0-0.[address] [facility] Comment on above: Performed By: #### C BC #### [facility] [address] [place] [address] Dr. Win Ardon LYMPH # 3.2 103/ul Normal 1.2-3.[address] [facility] Comment on above: Performed By: #### C BC #### [facility] [address] [place] [address] Dr. Win Ardon Lymphocytes/100 WBC (Bld) 34.7 % Normal 20.5-60.[address] [facility] Comment on above: Performed By: #### C BC #### [facility] [address] [place] [address] Dr. Win Ardon MANUAL DIFF REQ NO Normal [facility] Comment on above: Performed By: #### C BC #### [facility] [address] [place] [address] Dr. Win Ardon MCH (RBC) [Entitic mass] 31.3 pg Normal 26.7-34.[address] [facility] Comment on above: Performed By: #### C BC #### [facility] [address] [place] [address] Dr. Win Ardon MCHC (RBC) [Mass/Vol] 33.9 g/dL Normal 29.9-35.[address] [facility] Comment on above: Performed By: #### C BC #### [facility] [address] [place] [address] Dr. Win Ardon MCV (RBC) [Entitic vol] 92.2 fL Normal 81.0-99.[address] [facility] Comment on above: Performed By: #### C BC #### [facility] [address] [place] [address] Dr. Win Ardon MONO # 0.7 103/ul Normal 0.3-0.[address] [facility] Comment on above: Performed By: #### C BC #### [facility] [address] [place] [address] Dr. Win Ardon Monocytes/100 WBC (Bld) 7.1 % Normal 1.7-12.[address] [facility] Comment on above: Performed By: #### C BC #### [facility] [address] [place] [address] Dr. Win Ardon NEUT # 4.9 103/ul Normal 1.4-6.[address] [facility] Comment on above: Performed By: #### C BC #### [facility] [address] [place] [address] Dr. Win Ardon Neutrophils/100 WBC (Bld) 52.4 % Normal 43.0-75.0 [facility] Comment on above: Performed By: #### C BC #### [facility] [address] [place] [address] Dr. Win Ardon Platelet mean volume (Bld) [Entitic vol] 10.6 fL Normal 9.5-13.5 [facility] Comment on above: Performed By: #### C BC #### [facility] [address] [place] [address] Dr. Win Ardon PLT 231 103/ul Normal 150-[address] [facility] Comment on above: Performed By: #### C BC #### [facility] [address] [place] [address] Dr. Win Ardon RBC 4.22 106/ul Normal 4.20-5.40 [facility] Comment on above: Performed By: #### C BC #### [facility] [address] [place] [address] Dr. Win Ardon WBC 9.3 103/ul Normal 4.0-11.[address] [facility] Comment on above: Performed By: #### C BC #### [facility] [address] [place] [address] ABD/PELVIS WO CONon [...] ALAN Date: 2023-04-01 20:03 Normal [facility] LACTATE/LACTIC ACIDon 2022 Lactate [Moles/Vol] 1.2 mmol/L Normal 0.4-2.0 [facility] Comment on above: Performed By: #### L ACT #### [facility] [address] [place] [address] Dr. 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 Order #: [id number] CLICK HERE TO VIEW EXAM RADIOLOGY REPORT [...] Clark M.D. on 04/02/2023 at 11:10 Normal [facility] OCC BLD IMMUNO SCREENon 03-17 OCCULT BLOOD Positive Abnormal NEGATIVE [facility] Comment on above: Performed By: #### O BSCRN #### [facility] [address] [address] [address] Win Ardon PROF 14(COMP METB)on 023 Albumin [Mass/Vol] 3.8 g/dL Normal 3.4-5.0 [facility] Comment on above: Performed By: #### C MP ####[facility] [address] [address]DrOtilia Ardon Albumin/Globulin [Mass ratio] 1.1 {ratio} Normal [facility] Comment on above: Performed By: #### C MP ####[facility] [address] [id number] Ardon ALP [Catalytic activity/Vol] 99 U/L Normal 46-116 [facility] Comment on above: Performed By: #### C MP ####[facility] [address] [id number] Ardon ALT [Catalytic activity/Vol] 17 U/L Normal 14-59 [facility] Comment on above: Performed By: #### C MP ####[facility] [address] [id number] Ardon Anion gap [Moles/Vol] 13.4 mmol/L Normal [facility] Comment on above: Performed By: #### C MP ####[facility] [address] [id number] Ardon AST [Catalytic activity/Vol] 11 U/L Critically low 15-37 [facility] Comment on above: Performed By: #### C MP ####[facility] [address] [address]Dr. Win Ardon Bilirubin [Mass/Vol] 0.6 mg/dL Normal 0.2-1.0 [facility] Comment on above: Performed By: #### C MP ####[facility] [address] [address]Dr. Win Ardon Calcium [Mass/Vol] 9.1 mg/dL Normal 8.5-10.1 [facility] Comment on above: Performed By: #### C MP ####[facility] [address] [address]Dr. Win Ardon Chloride [Moles/Vol] 106 mmol/L Normal 98-107 [facility] Comment on above: Performed By: #### C MP ####[facility] [address] [place], [place] [address]Dr. Win Ardon CO2 [Moles/Vol] 29.2 mmol/L Normal 21.0-32.0 [facility] Comment on above: Performed By: #### C MP ####[facility] [address] [place], [place] [address]Dr. Win Ardon Creatinine [Mass/Vol] 0.95 mg/dL Normal 0.55-1.02 [facility] Comment on above: Performed By: #### C MP ####[facility] [address] [place], [place] [address]Dr. Win Duglas EGFR-AF CITIZEN OF [place] >60 Normal >=60 [facility] Comment on above: Performed By: #### C MP ####[facility] [address] [id number][address] Win Duglas EGFR-NON AF CITIZEN OF [place] 59 mL/min/1.73m2 Critically low >=60 [facility] Comment on above: Performed By: #### C MP ####[facility] [address] [place], [place] [address]Dr. Win Ardon Globulin (S) [Mass/Vol] 3.4 g/dL Normal [facility] Comment on above: Performed By: #### C MP ####[facility] [address] [place] [id number]. Win Ardon Glucose [Mass/Vol] 162 mg/dL Critically high 74-106 T [facility] Comment on above: Performed By: #### C MP ####[facility] [address] [place] [address]Dr. Win Ardon Potassium [Moles/Vol] 3.6 mmol/L Normal 3.5-5.1 [facility] Comment on above: Performed By: #### C MP ####[facility] [address] [place] [address]Dr. Win Duglas Protein [Mass/Vol] 7.2 g/dL Normal 6.4-8.2 [facility] Comment on above: Performed By: #### C MP ####[facility] [address] [place], [place] [address]Dr. Win Ardon Sodium [Moles/Vol] 145 mmol/L Normal 136-145 [facility] Comment on above: Performed By: #### C MP ####[facility] Vxihxaewxn[address] [place], [place] [address]Dr. Claudiaaida Ardon Urea nitrogen [Mass/Vol] 14.0 mg/dL Normal 7.0-18.0 [facility] Comment on above: Performed By: #### C MP ####[facility] [address]vdtttju[address] [place], [place] [address]Dr. Win Ardon Urea nitrogen/Creatinine [Mass ratio] 14.7 mg/mg Normal [facility] Comment on above: Performed By: #### C MP ####[facility] [address] [place] [address]Dr. Win Ardon PROTIMEon 04-01-2023 INR Coag (PPP) [Relative time] 1.02 {INR} [facility] Comment on above: Performed By: #### P TT, PT ####[facility] [address] [place], [place] [address]Dr. Win Ardon INR GUIDELINES SEE BELOW Normal [facility] Comment on above: Result Comment: MAGDA RED INR: 2.0 - 3.0 CONDITIONS NOT LISTED BELOW 2.5 - 3.5 FOR PROSTHETIC HEART VALVE REPLACEMENT 2.5 - 3.5 RECURRENT THROMBOSIS Performed By: #### P TT, PT ####[facility] [address] [place] [address]Dr. Win Ardon PT Coag (PPP) [Time] 10.8 s Normal 9.0-11.6 [facility] Comment on above: Performed By: #### P TT, PT ####[facility] [address] [place], [place] [address]Dr. Win Ardon PTTon 04-01-2023 aPTT Coag (Bld) [Time] 26.5 s Normal 22.3-36.2 [facility] Comment on above: Performed By: #### P TT, PT ####[facility] [address] [place], [place] [address]Dr. Win Ardon TYPE AND SCREENon 04-01-2023 TYPE AND SCREEN Negative Normal [facility] Comment on above: Performed By: #### T NS ####[facility] Zy[address]cqtk[address] [place], [place] [address]Dr. Win Ardon CBC AUTO DIFFon 03-24-2023 BASO # 0.1 103/ul Normal 0.0-0.1 [facility] Comment on above: Performed By: #### C BC ####[facility] [address] [place], [place] [address]Dr. Win Ardon Basophils/100 WBC (Bld) 1.0 % Normal 0.2-2.[address] [facility] Comment on above: Performed By: #### C BC ####[facility] Ibkmpdgbze[address] [place], [place] [address]Dr. Win Ardon EO # 0.3 103/ul Normal 0.0-0.[address] [facility] Comment on above: Performed By: #### C BC ####[facility] Eoiximqpks[address] [place], [place] [address]Dr. Win Ardon Eosinophils/100 WBC (Bld) 3.3 % Normal 0.9-7.[address] [facility] Comment on above: Performed By: #### C BC ####[facility] [address] [place] [address]Dr. Win Ardon Erythrocyte distribution width (RBC) [Ratio] 13.2 % Normal 11.0-15.0 [facility] Comment on above: Performed By: #### C BC ####[facility] [address] [place] [address]Dr. Win Ardon Hematocrit (Bld) [Volume fraction] 41.3 % Normal 36.0-48.0 [facility] Comment on above: Performed By: #### C BC ####[facility] Alwcrsyszl[address] [place], [place] [address]Dr. Win Ardon Hemoglobin (Bld) [Mass/Vol] 13.6 g/dL Normal 12.0-16.0 [facility] Comment on above: Performed By: #### C BC ####[facility] [address]we[address]fzms[address] [place], [place] [address]Dr. Win Ardon IG # 0.04 10e3/ul Critically high 0.00-0.03 [facility] Comment on above: Performed By: #### C BC ####[facility] Dfqhwmlidp[address] [place], [place] [address]Dr. Win Ardon IG % 0.4 % Normal 0.0-0.5 [facility] Comment on above: Performed By: #### C BC ####[facility] Gxiavktehv[address] [place], [place] [address]Dr. Win Ardon LYMPH # 2.2 103/ul Normal 1.2-3.[address] [facility] Comment on above: Performed By: #### C BC ####[facility] Plqqagiint[address] [place], [place] [address]Dr. Win Ardon Lymphocytes/100 WBC (Bld) 23.8 % Normal 20.5-60.0 [facility] Comment on above: Performed By: #### C BC ####[facility] [address]ovtnokkx[address] [place], [place] [address]Dr. Win Ardon MANUAL DIFF REQ NO Normal [facility] Comment on above: Performed By: #### C BC ####[facility] [address] [place] [id number]. iWn Ardon MCH (RBC) [Entitic mass] 30.6 pg Normal 26.7-34.0 [facility] Comment on above: Performed By: #### C BC ####[facility] [address] [place] [address]Dr. Win Duglas MCHC (RBC) [Mass/Vol] 32.9 g/dL Normal 29.9-35.2 [facility] Comment on above: Performed By: #### C BC ####[facility] X[address]fdjzrl[address] [place], [place] [address]Dr. Claudiaaida Ardon MCV (RBC) [Entitic vol] 93.0 fL Normal 81.0-99.0 [facility] Comment on above: Performed By: #### C BC ####[facility] Cxuchcgrac[address] [place], [place] [address]Dr. Win Ardon MONO # 0.7 103/ul Normal 0.3-0.[address] [facility] Comment on above: Performed By: #### C BC ####[facility] W[address]tyhneuo[address] [place], [place] [address]Dr. Claudiaaida Ardon Monocytes/100 WBC (Bld) 7.3 % Normal 1.7-12.0 [facility] Comment on above: Performed By: #### C BC ####[facility] U[address]tszfvpy[address] [place], [place] [address]Dr. Claudiaaida Ardon NEUT # 5.8 103/ul Normal 1.4-6.[address] [facility] Comment on above: Performed By: #### C BC ####[facility] [address] [place], [place] [address]Dr. Win Ardon Neutrophils/100 WBC (Bld) 64.2 % Normal 43.0-75.[address] [facility] Comment on above: Performed By: #### C BC ####[facility] [address] [place], [place] [address]Dr. Win Ardon Platelet mean volume (Bld) [Entitic vol] 11.0 fL Normal 9.5-13.5 [facility] Comment on above: Performed By: #### C BC ####[facility] [address] [place], [place] [address]Yg. Claudiaaida Ardon PLT 243 103/ul Normal 150-450 [facility] Comment on above: Performed By: #### C BC ####[facility] [address] [place], [place] [address]Dr. Win Ardon RBC 4.44 106/ul Normal 4.20-5.40 [facility] Comment on above: Performed By: #### C BC ####[facility] [address] [place], [place] [address]Tp. Win Ardon WBC 9.1 103/ul Normal 4.0-11.0 [facility] Comment on above: Performed By: #### C BC ####[facility] [address] [place], [place] [address]WrOtilia Ardon LIPID PROFILEon 03-24-2023 CHOL-HDL RATIO NORM SEE BELOW Normal [facility] Comment on above: Result Comment: 3.3 - 4.4 LOW RISK 4.4 - 7.1 AVERAGE RISK 7.1 - 11.0 MODERATE RISK >11.0 HIGH RISK Performed By: #### C MP, LIPID #### [facility] [address] [address] [address] Win Ardon Cholesterol [Mass/Vol] 99 mg/dL Normal <=200 Th [facility] Comment on above: Performed By: #### C MP, LIPID #### [facility] [address] [address] [address] Win Ardon Cholesterol in HDL [Mass/Vol] 34 mg/dL Critically low 40-60 [facility] Comment on above: Performed By: #### C MP, LIPID #### [facility] [address] [address] [address] Win Ardon Cholesterol in LDL [Mass/Vol] 35.8 mg/dL Normal [facility] Comment on above: Performed By: #### C MP, LIPID #### [facility] [address] [address] [address] Win Ardon Cholesterol.total/Chol esterol in HDL [Mass ratio] 2.9 {ratio} Normal [facility] Comment on above: Performed By: #### C MP, LIPID #### [facility] [address] [address] [address] Win Ardon HDL NORMAL > or = 60 mg/dl - LOW CARDIOVASCULAR RISK <40 mg/dl - HIGH CARDIOVASCULAR RISK Normal [facility] Comment on above: Performed By: #### C MP, LIPID #### [facility] [address] [address] [address] Win Ardon LDL CALC NORMAL SEE BELOW Normal [facility] Comment on above: Result Comment: <100 mg/dl OPTIMAL 100 - 129 mg/dl NEAR OR ABOVE OPTIMAL 130 - 159 mg/dl BORDERLINE HIGH 160 - 189 mg/dl HIGH >190 mg/dl VERY HIGH Performed By: #### C MP, LIPID #### [facility] [address] [address] [address] Win Ardon Triglyceride [Mass/Vol] 146 mg/dL Normal <=150 [facility] Comment on above: Performed By: #### C MP, LIPID #### [facility] [address] [address] [address] Win Ardon VLDL CALC 29.2 mg/dL Normal [facility] Comment on above: Performed By: #### C MP, LIPID #### [facility] [address] [address] [address] Win Ardon PROF 14(COMP METB)on 023 Albumin [Mass/Vol] 3.9 g/dL Normal 3.4-5.0 [facility] Comment on above: Performed By: #### C MP, LIPID #### [facility] [address] [address] [address] Win Ardon Albumin/Globulin [Mass ratio] 1.1 {ratio} Normal [facility] Comment on above: Performed By: #### C MP, LIPID #### [facility] [address] [address] [address] Win Ardon ALP [Catalytic activity/Vol] 96 U/L Normal 46-116 [facility] Comment on above: Performed By: #### C MP, LIPID #### [facility] [address] [address] [address] Win Ardon ALT [Catalytic activity/Vol] 15 U/L Normal 14-59 [facility] Comment on above: Performed By: #### C MP, LIPID #### [facility] [address] [address] [address] Win Ardon Anion gap [Moles/Vol] 12.1 mmol/L Normal [facility] Comment on above: Performed By: #### C MP, LIPID #### [facility] [address] [address] [address] Win Ardon AST [Catalytic activity/Vol] 10 U/L Critically low 15-37 [facility] Comment on above: Performed By: #### C MP, LIPID #### [facility] [address] [address] [address] Win Ardon Bilirubin [Mass/Vol] 0.8 mg/dL Normal 0.2-1.0 [facility] Comment on above: Performed By: #### C MP, LIPID #### [facility] [address] [address] [address] Win Ardon Calcium [Mass/Vol] 9.1 mg/dL Normal 8.5-10.1 [facility] Comment on above: Performed By: #### C MP, LIPID #### [facility] [address] [address] [address] Win Ardon Chloride [Moles/Vol] 102 mmol/L Normal 98-107 [facility] Comment on above: Performed By: #### C MP, LIPID #### [facility] [address] [address] [address] Win Ardon CO2 [Moles/Vol] 26.0 mmol/L Normal 21.0-32.0 [facility] Comment on above: Performed By: #### C MP, LIPID #### [facility] [address] [address] [address] Win Ardon Creatinine [Mass/Vol] 0.95 mg/dL Normal 0.55-1.02 [facility] Comment on above: Performed By: #### C MP, LIPID #### [facility] [address] [address] [address] Win Ardon EGFR-AF CITIZ[place] >60 Normal >=60 [facility] Comment on above: Performed By: #### C MP, LIPID #### [facility] [address] [address] [address] Win Ardon EGFR-NON AF CITIZEN OF [place] 59 mL/min/1.73m2 Critically low >=60 [facility] Comment on above: Performed By: #### C MP, LIPID #### [facility] [address] [address] [address] Win Ardon Globulin (S) [Mass/Vol] 3.7 g/dL Normal [facility] Comment on above: Performed By: #### C MP, LIPID #### [facility] [address] [address] [address] Win Ardon Glucose [Mass/Vol] 336 mg/dL Critically high 74-106 [facility] Comment on above: Performed By: #### C MP, LIPID #### [facility] [address] [address] [address] Win Ardon Potassium [Moles/Vol] 4.1 mmol/L Normal 3.5-5.1 [facility] Comment on above: Performed By: #### C MP, LIPID #### [facility] [address] [address] [address] Win Ardon Protein [Mass/Vol] 7.6 g/dL Normal 6.4-8.2 [facility] Comment on above: Performed By: #### C MP, LIPID #### [facility] [address] [address] [address] Win Ardon Sodium [Moles/Vol] 136 mmol/L Normal 136-145 [facility] Comment on above: Performed By: #### C MP, LIPID #### [facility] [address] [address] [address] Win Ardon Urea nitrogen [Mass/Vol] 10.0 mg/dL Normal 7.0-18.0 [facility] Comment on above: Performed By: #### C MP, LIPID #### [facility] [address] [place], [place] [address] Dr. Win Ardon Urea nitrogen/Creatinine [Mass ratio] 10.5 mg/mg Normal [facility] Comment on above: Performed By: #### C MP, LIPID #### [facility] [address] [place], [place] [address] Dr. Win Ardon EMS Documentationon 03-18-20 23 EMS Documentation Normal [facility] Office Visiton 03-10-2023 Follow-up visit [id number] Yeyo Avila S 1955 F Date Provider Department Center 03/10/2023 [id number]-RMDZHBJVAJONO LOPEZ [facility] family history on file Level of Service:73906 [place] OFFICE/OUTPATIENT ESTABLISHED MOD MDM 30-39 MIN Reason for Visit and Comments: Coronary Artery Disease [187] Hypertension [314187] aneurysm of thoracic aorta [Other] Normal [facility] Coding Summary.on 02-27-2023 Coding Summary. Normal [facility] EMS Documentationon 02-28-20 23 EMS Documentation Normal [facility] EMS Documentation Normal [facility] Auto Diffon 02-24-2023 Basophils/100 WBC (Bld) 0.3 % Normal 0.0-2.0 [facility] Comment on above: Order Comment: Order Added by Discern Expert. Performed By: #### 2 759274, [id number], 0164966, 90052271, 7089395, 35187246, 4784166 ####[facility] [address] [place] [address] Basophils/Leukocytes Auto (Bld) [Pure # fraction] 0.1 E9/L Normal 0.0-0.2 [facility] Comment on above: Order Comment: Order Added by Discern Expert. Performed By: #### 2 694249, 65907443, 8754592, 48552908, 7045084, 75053908, 5375214 ####[facility] [address] [place] [address] Eosinophils/100 WBC (Bld) 1.4 % Normal 0.0-8.0 [facility] Comment on above: Order Comment: Order Added by Discern Expert. Performed By: #### 2 247732, 37583732, 0719476, 92958499, 3225794, 85860763, 2430252 ####[facility] [address] [place] [address] Eosinophils/Leukocytes Auto (Bld) [Pure # fraction] 0.2 E9/L Normal 0.0-0.5 [facility] Comment on above: Order Comment: Order Added by Discern Expert. Performed By: #### 2 943767, 12620469, 0377672, 49365469, 6692210, 26587553, 5865406 ####[address] [address] Lymphocytes/100 WBC (Bld) 30.2 % Normal 14.0-50.0 [facility] Comment on above: Order Comment: Order Added by Discern Expert. Performed By: #### 2 755577, 52241470, 2542572, 16045330, 7856914, 79785537, 1164765 ####[address] [address] Lymphocytes/Leukocytes Auto (Bld) [Pure # fraction] 5.1 E9/L High 1.0-4.0 [facility] Comment on above: Order Comment: Order Added by Discern Expert. Performed By: #### 2 084523, 48787192, 1523173, 95985875, 8443905, 46358697, 3537378 ####[facility] [address] [place] [address] Monocytes/100 WBC (Bld) 8.3 % Normal 4.0-14.0 [facility] Comment on above: Order Comment: Order Added by Discern Expert. Performed By: #### 2 478954, 86423827, 3339786, 97719411, 5559632, 72424278, 9450960 ####[facility] [address] [place] [address] Monocytes/Leukocytes Auto (Bld) [Pure # fraction] 1.4 E9/L High 0.2-1.0 [facility] Comment on above: Order Comment: Order Added by Discern Expert. Performed By: #### 2 057296, 35643178, 5706442, 12859964, 5136604, 66338997, 0979869 ####[facility] [address] [place] [address] Neutrophils/100 WBC (Bld) 59.8 % Normal 36.0-75.0 [facility] Comment on above: Order Comment: Order Added by Discern Expert. Performed By: #### 2 108171, 48936563, 6345300, 24250677, 2593046, 29908117, 0462473 ####[facility] [address] [place] [address] Neutrophils/Leukocytes Auto (Bld) [Pure # fraction] 10.0 E9/L High 2.0-7.5 [facility] Comment on above: Order Comment: Order Added by Discern Expert. Performed By: #### 2 756584, 36528618, 5588400, 76187334, 2352613, 37512864, 2460590 ####[facility] [address] [place] [address] BMPon 02-24-2023 Anion gap [Moles/Vol] 8 mmol/L Normal 6-16 [facility] Comment on above: Performed By: #### 1 9968958, 27980563, 4373598, 0365254, 5073258 ####[facility] [address] [place] [address] Calcium [Mass/Vol] 8.4 mg/dL Low 8.9-11.1 [facility] Comment on above: Performed By: #### 1 1640442, 20585358, 5853526, 7521791, 5686534 ####[facility] [address] [place] [address] Chloride [Moles/Vol] 108 mmol/L Normal 101-111 [facility] Comment on above: Performed By: #### 1 5134476, 25273836, 8050082, 8392466, 3085867 ####[facility] [address] [place] [address] CO2 [Moles/Vol] 25 mmol/L Normal 21-31 [facility] Comment on above: Performed By: #### 1 0285580, 40933707, 1941186, 9031961, 4679865 ####[facility] [address] [place] [address] Creatinine [Mass/Vol] 1.2 mg/dL Normal 0.5-1.3 [facility] Comment on above: Performed By: #### 1 0825824, 33325133, 6271350, 9272231, 4944697 ####[facility] [address] [place] [address] Glucose [Mass/Vol] 102 mg/dL Normal 55-199 [facility] Comment on above: Result Comment: If t his glucose result represents a fasting glucose, interpretation should refer to the following reference range: 55-99 mg/dL Performed By: #### 1 6976837, 93787077, 9498195, 5269345, 6915997 ####[facility] [address] [place] [address] Potassium [Moles/Vol] 3.4 mmol/L Low 3.5-5.3 [facility] Comment on above: Performed By: #### 1 1352333, 87303586, 3435014, 6558240, 8635258 ####[facility] [address] [place] [address] Sodium [Moles/Vol] 138 mmol/L Normal 135-145 [facility] Comment on above: Performed By: #### 1 2030766, 87146150, 1449121, 0306398, 5036373 ####[facility] [address] [place] [address] Urea nitrogen [Mass/Vol] 30 mg/dL High 5-21 [facility] Comment on above: Performed By: #### 1 7417743, 44165361, 8160923, 7207517, 1513629 ####[facility] [address] [place] [address] Urea nitrogen/Creatinine [Mass ratio] 25 No Units High 10-20 [facility] Comment on above: Performed By: #### 1 5893675, 14700917, 5854724, 7419816, 1026479 ####[facility] [address] [place] [address] Creatinine [Mass/Vol] 1.4 mg/dL High 0.5-1.3 [facility] Comment on above: Performed By: #### 2 880471, 78615129, 7817629, 96470492, 1721645, 92684336, 1731286 ####[facility] [address] [place] [address] Urea nitrogen [Mass/Vol] 30 mg/dL High 5-21 [facility] Comment on above: Performed By: #### 2 265029, 95736893, 2552093, 27437018, 0026628, 45485990, 6235404 ####[facility] [address] [place] [address] Urea nitrogen/Creatinine [Mass ratio] 21 No Units High 10-20 [facility] Comment on above: Performed By: #### 2 944775, 58068386, 2598032, 60573762, 0508144, 34011155, 5503467 ####[facility] [address] [place] [address] Anion gap [Moles/Vol] 11 mmol/L Normal 6-16 [facility] Comment on above: Performed By: #### 2 920844, 14848203, 5763811, 49223117, 8991881, 82301612, 9014278 ####[facility] [address] [place] [address] Calcium [Mass/Vol] 8.9 mg/dL Normal 8.9-11.1 [facility] Comment on above: Performed By: #### 2 885467, 89746017, 8010061, 87361107, 3073694, 11067669, 4378657 ####[facility] [address] [place] [address] Chloride [Moles/Vol] 103 mmol/L Normal 101-111 [facility] Comment on above: Performed By: #### 2 511676, 63715500, 5066154, 57637593, 5449852, 53612214, 8860421 ####[facility] [address] [place] [address] CO2 [Moles/Vol] 26 mmol/L Normal 21-31 [facility] Comment on above: Performed By: #### 2 556225, 69405791, 5057408, 37787535, 0482362, 15652542, 3731823 ####[facility] [address] [place] [address] Glucose [Mass/Vol] 118 mg/dL Normal 55-199 [facility] Comment on above: Result Comment: If t his glucose result represents a fasting glucose, interpretation should refer to the following reference range: 55-99 mg/dL Performed By: #### 2 205237, 43298186, 0877675, 24609397, 0407636, 36626824, 5500816 ####[facility] [address] [place] [address] Potassium [Moles/Vol] 3.0 mmol/L Low 3.5-5.3 [facility] Comment on above: Performed By: #### 2 674232, 89983066, 2330888, 82129709, 3455191, 94453765, 9813842 ####[facility] [address] [place] [address] Sodium [Moles/Vol] 137 mmol/L Normal 135-145 [facility] Comment on above: Performed By: #### 2 107463, 71843762, 3458364, 50418073, 1003599, 96978195, 7088842 ####[facility] [address] [place] [address] CBC w/ Auto Diffon Erythrocyte distribution width (RBC) [Ratio] 13.5 % Normal 10.9-14.2 [facility] Comment on above: Performed By: #### 2 023033, 89923269, 3946872, 37435726, 9140634, 46895480, 1025842 ####[facility] [address] [place] [address] Hematocrit (Bld) [Volume fraction] 40.8 % Normal 34.0-46.0 [facility] Comment on above: Performed By: #### 2 615843, 02537921, 3902468, 69180195, 2406135, 18169024, 6136015 ####[facility] [address] [place] [address] Hemoglobin (Bld) [Mass/Vol] 13.8 g/dL Normal 12.0-16.0 [facility] Comment on above: Performed By: #### 2 548409, 96457215, 2510843, 21403435, 6334191, 91060357, 3873296 ####[facility] [address] [place] [address] MCH (RBC) [Entitic mass] 29.6 pg Normal 27.0-34.0 [facility] Comment on above: Performed By: #### 2 894587, 64564343, 2230268, 48107672, 1363197, 22659573, 7235668 ####[facility] [address] [place] [address] MCHC (RBC) [Mass/Vol] 33.9 g/dL Normal 31.4-36.0 [facility] Comment on above: Performed By: #### 2 024184, 29660323, 3493259, 80893851, 2149204, 86727697, 3831617 ####[facility] [address] [place] [address] MCV (RBC) [Entitic vol] 87.3 fL Normal 80.0-100.0 [facility] Comment on above: Performed By: #### 2 158092, 73887174, 0994861, 23069050, 1754472, 76044805, 7581402 ####[facility] [address] [place] [address] Platelet mean volume (Bld) [Entitic vol] 9.3 fL Normal 6.4-10.8 [facility] Comment on above: Performed By: #### 2 252153, 57895782, 5914019, 94351418, 5050002, 53717575, 5908844 ####[facility] [address] [place] [address] Platelets (Bld) [#/Vol] 234.0 E9/L Normal 150.0-500.0 [facility] Comment on above: Performed By: #### 2 946254, 24919445, 4379522, 68886900, 1873755, 59293865, 9278385 ####[facility] [address] [place] [address] RBC (Bld) [#/Vol] 4.7 E12/L Normal 4.3-5.9 [facility] Comment on above: Performed By: #### 2 544442, 02493334, 4421928, 87599678, 5202148, 38929675, 8910642 ####[facility] [address] [place] [address] WBC corrected for nucl RBC Auto (Bld) [#/Vol] 16.7 E9/L High 4.0-11.0 [facility] Comment on above: Result Comment: Slid e reviewed by AD. Performed By: #### 2 762206, 54695328, 8804203, 86974687, 2936240, 99222189, 9021837 ####[facility] [address] [place] [address] CHEMISTRYOrdered By: Lab ROP User on 02-24-2023 Glucose [Mass/Vol] 144 mg/dL High 55 - 99 mg/dL [facility] POC Subsection Comment on above: Result Comment: Edilia arleth Meter POC Device SN [id number] Invalid Interpretation Code [facility] POC Subsection POC User ID [id number] Invalid Interpretation Code [facility] POC Subsection POC Username KRISTI MADDEN Invalid Interpretation Code [facility] POC Subsection Glucose [Mass/Vol] 76 mg/dL Normal 55 - 99 mg/dL [facility] POC Subsection Comment on above: Result Comment: Edilia arleth Meter POC Device SN [id number] Invalid Interpretation Code [facility] POC Subsection POC User ID [id number] Invalid Interpretation Code [facility] POC Subsection POC Username KRISTI MADDEN Invalid Interpretation Code [facility] POC Subsection CHEMISTRYOrdered By: SYSTEM SYSTEM on 02-24-2023 Potassium [Moles/Vol] 3.7 mmol/L Normal 3.5 - 5.3 mmol/L [facility] Remisol Anion gap [Moles/Vol] 8 mmol/L Normal 6 - 16 mEq/L [facility] Remisol Calcium [Mass/Vol] 8.4 mg/dL Low 8.9 - 11. 1 mg/dL [facility] Chloride [Moles/Vol] 108 mmol/L Normal 101 - 1 11 mmol/L [facility] CO2 [Moles/Vol] 25 mmol/L Normal 21 - 31 mmol/L [facility] Creatinine [Mass/Vol] 1.2 mg/dL Normal 0.5 - 1.3 mg/dL [facility] Remisol GFR/1.73 sq M.predicted among blacks MDRD (S/P/Bld) [Vol rate/Area] 55 mL/min/1.73 m2 Low >=59mL/min/1 .73 m2 [facility] Chem S GFR/1.73 sq M.predicted among non-blacks MDRD (S/P/Bld) [Vol rate/Area] 45 mL/min/1.73 m2 Low >=59mL/min/1 .73 m2 [facility] Chem S Glucose [Mass/Vol] 102 mg/dL Normal 55 - 199 mg/dL [facility] Magnesium [Mass/Vol] 2.1 mg/dL Normal 1.3 - 2 .4 mg/dL [facility] Potassium [Moles/Vol] 3.4 mmol/L Low 3.5 - 5.3 mmol/L [facility] Sodium [Moles/Vol] 138 mmol/L Normal 135 [...] 1.4 mg/dL High 0.5 - 1.3 mg/dL [facility] GFR/1.73 sq M.predicted among blacks MDRD (S/P/Bld) [Vol rate/Area] 46 mL/min/1.73 m2 Low >=59mL/min/1 .73 m2 [facility] Chem S GFR/1.73 sq M.predicted among non-blacks MDRD (S/P/Bld) [Vol rate/Area] 38 mL/min/1.73 m2 Low >=59mL/min/1 .73 m2 [facility] Chem S Globulin (S) [Mass/Vol] 2.8 g/dL Normal 1.4 - 4.0 gm/dL [facility] Glucose [Mass/Vol] 118 mg/dL Normal 55 - 199 mg/dL [facility] Potassium [Moles/Vol] 3.0 mmol/L Low 3.5 - 5.3 mmol/L [facility] Protein [Mass/Vol] 6.5 g/dL Normal 6.0 - 7.8 gm/dL [facility] Sodium [Moles/Vol] 137 mmol/L Normal 135 - 145 mmol/L [facility] Remisol Troponin I.cardiac [Mass/Vol] 8.00 pg/mL Low 10.10 - 27.10 pg/mL [facility] Remisol Urea nitrogen [Mass/Vol] 30 mg/dL High 5 - 21 mg/dL [facility] Remisol Urea nitrogen/Creatinine [Mass ratio] 21 mg/mg High 10 - 20 [facility] Remisol COAGULATIONOrdered By: Soheila Jenkins on 02-24-2023 [...] CT Head or Brain w/o Contrast Normal [facility] CT Spine Cervical w/o Contra ston 02-24-2023 CT Spine Cervical w/o Contrast Normal [facility] Capillary Glucose POCon 02-15 Glucose [Mass/Vol] 144 mg/dL High 55-99 [facility] Comment on above: Result Comment: Edilia arleth Meter Performed By: #### 2 [id number] ####[facility] [address] [place] [address] Glucose [Mass/Vol] 76 mg/dL Normal 55-99 [facility] Comment on above: Result Comment: Edilia arleth Meter Performed By: #### 2 [id number] ####[facility] [address] [place] [address] Consent for Treatmenton 02-15 Consent for Treatment [id number] 5#1.00CD:127 Normal [facility] Discharge Instructionson Discharge Instructions [id number] 8#1.00CD:127 Normal [facility] ED Clinical Summaryon 2022 ED Clinical Summary Normal [facility] ED Note-Physicianon 02-25-20 ED Note-Physician Normal [facility] Comment on above: Result Comment: Elec tronically Signed By: Timoteo PRADO, Jordy\.br\Date and Time Signed: 02/24/23 02:05 EDT ED Patient Education Noteon 02-24-2023 ED Patient Education Note Normal [facility] ED Patient Summaryon 023 ED Patient Summary Normal [facility] ED Traumaon 02-24-2023 ED Trauma [id number] 1#1.00CD:127 Normal [facility] HEMATOLOGYOrdered By: SYSTEM SYSTEM on 02-24-2023 Basophils/100 [...] 10.0 E9/L High 2.0 - 7.5 E9/L [facility] HemeAutoSS HEMATOLOGYOrdered By: Dave Jenkins on 02-24-2023 Erythrocyte distribution width (RBC) [Ratio] 13.5 % Normal 10.9 - 14.2 % [facility] HemeAutoSS Hematocrit (Bld) [Volume fraction] 40.8 % Normal 34.0 - 46.0 % [facility] HemeAutoSS Hemoglobin (Bld) [Mass/Vol] 13.8 g/dL Normal 12.0 - 16.0 gm/dL [facility] HemeAutoSS MCH (RBC) [Entitic mass] 29.6 pg Normal 27.0 - 34.0 pg [facility] HemeAutoSS MCHC (RBC) [Mass/Vol] 33.9 g/dL Normal 31.4 - 36.0 gm/dL [facility] HemeAutoSS MCV (RBC) [Entitic vol] 87.3 fL Normal 80.0 - 100.0 fL [facility] HemeAutoSS Platelet mean volume (Bld) [Entitic vol] 9.3 fL Normal 6.4 - 10.8 fL [facility] HemeAutoSS Platelets (Bld) [#/Vol] 234.0 E9/L Normal 150.0 - 500.0 E9/L [facility] HemeAutoSS RBC (Bld) [#/Vol] 4.7 E12/L Normal 4.3 - 5.9 E12/L [facility] HemeAutoSS WBC corrected for nucl RBC Auto (Bld) [#/Vol] 16.7 E9/L High 4.0 - 11.0 E9/L [facility] HemeAutoSS Comment on above: Result Comment: Slid e reviewed by AD. Barb Hopkinsc Panelon 02-24-2023 Albumin [Mass/Vol] 3.7 g/dL Normal 3.3-5.0 [facility] Comment on above: Performed By: #### 2 794569, 01135842, 5829651, 27286790, 9110199, 34938099, 0530161 ####[facility] [address] [place] [address] Albumin/Globulin (S) [Mass conc ratio] 1.3 Normal 1.1-2.2 [facility] Comment on above: Performed By: #### 2 263808, 78833577, 9539334, 37382956, 3314276, 50028259, 1360713 ####[facility] [address] [place] [address] ALP [Catalytic activity/Vol] 84 Int._Unit/L Normal 21-98 [facility] Comment on above: Performed By: #### 2 504738, 68866185, 7275994, 66012178, 1480088, 78291591, 4488596 ####[facility] [address] [place] [address] ALT No additional P-5'-P [Catalytic activity/Vol] 13 Int._Unit/L Normal 6-46 [facility] Comment on above: Performed By: #### 2 953774, 49587978, 4833646, 28113774, 4509642, 45660103, 4828533 ####[facility] [address] [place] [address] AST [Catalytic activity/Vol] 14 Int._Unit/L Normal 5-43 [facility] Comment on above: Performed By: #### 2 219435, 29174117, 9363172, 14336719, 7162625, 63373141, 8727926 ####[facility] [address] [place] [address] Bilirubin [Mass/Vol] 1.1 mg/dL Normal 0.0-1.1 [facility] Comment on above: Performed By: #### 2 613575, 02413343, 1930162, 94816185, 9054561, 81499239, 1565690 ####[facility] [address] [place] [address] Bilirubin.direct [Mass/Vol] 0.3 mg/dL Normal 0.1-0.4 [facility] Comment on above: Performed By: #### 2 881891, 26658520, 2754239, 59303645, 3370665, 08446098, 4283470 ####[facility] [address] [place] [address] Bilirubin.indirect [Mass or moles/Vol] 0.8 mg/dL Normal 0.1-0.9 [facility] Comment on above: Performed By: #### 2 655268, 00545707, 0648871, 63089466, 9881568, 66371967, 8136466 ####[facility] [address] [place] [address] Globulin (S) [Mass/Vol] 2.8 g/dL Normal 1.4-4.0 [facility] Comment on above: Performed By: #### 2 919773, 08248507, 9191430, 78608389, 5385809, 78199683, 5238808 ####[facility] [address] [place] [address] Protein [Mass/Vol] 6.5 g/dL Normal 6.0-7.8 [facility] Comment on above: Performed By: #### 2 645260, 85951399, 2961632, 34059525, 0302601, 76613559, 6422835 ####[facility] [address] [place] [address] Inpatient Clinical Summaryon 02-24-2023 Inpatient Clinical Summary Normal [facility] Inpatient Patient Summaryon 02-24-2023 Inpatient Patient Summary Normal [facility] Inpatient Patient Summary Normal [facility] Interdisciplinary Note - Aaron e Manageron 02-24-2023 Interdisciplinary Note - Tram Inspector Normal [facility] Comment on above: Result Comment: Elec tronically Signed By: Freda Dodson\Date and Time Signed: 02/24/23 11:14 EDT Interdisciplinary Note - PTo n 02-24-2023 Interdisciplinary Note - PT Normal [facility] Magnesiumon 02-24-2023 Magnesium [Mass/Vol] 2.1 mg/dL Normal 1.3-2.4 [facility] Comment on above: Performed By: #### 1 3682660, 86094128, 9850828, 0023234, 3358291 ####[facility] [address] [place] [address] Monitor Recordon 02-24-2023 Monitor Record [id number] 4#1.00CD:127 Normal [facility] Monitor Record [id number] 0#1.00CD:127 Normal [facility] Monitor Record [id number] 6#1.00CD:127 Normal [facility] PT & PTTon 02-24-2023 aPTT Coag (PPP) [Time] 23.9 second(s) Low 25.1-36.5 [facility] Comment on above: Result Comment: Para meter [...] the same coagulation reagent and instrumentation as [facility]. Currently there are no coagulation studies available worldwide for children to 14 days, and no normal ranges. Heparin therapeutic range (represented by Anti-Factor Xa activity of 0.2 - 0.4 U/mL) corresponds to PTT of 56.6 - 109.0 sec. Performed By: #### 2 392520, 39554339, 2158734, 26299316, 5076609, 64194920, 6931815 ####[facility] [address] [place] [address] INR Coag (PPP) [Relative time] 1.2 {INR} Invalid Interpretation Code [facility] Comment on above: Result Comment: INR results are specifically intended to assess patients stabilized on long-term Anticoagulation therapy suggested INR?s ?Less Intensive Anticoagulation? 2.0 ? 3.0Conventional Range 3.0 ? 4.5 Performed By: #### 2 552504, 26002207, 8729484, 78616754, 8633205, 29194560, 6266271 ####[facility] [address] [place] [address] PT Coag (PPP) [Time] 13.7 second(s) High 9.4-12.5 [facility] Comment on above: Result Comment: 15 d [...] the same coagulation reagent and instrumentation as [facility]. Currently there are no coagulation studies available worldwide for children to 14 days, and no normal ranges. Performed By: #### 2 570970, 26528394, 7768125, 63651434, 0104826, 30562217, 6605622 ####[facility] [address] [place] [address] Patient Education - Texton 0 02-24-2023 Patient Education - Text Normal [facility] Potassiumon 02-24-2023 Potassium [Moles/Vol] 3.7 mmol/L Normal 3.5-5.3 [facility] Comment on above: Order Comment: Pleas e call me with result. Thanks Performed By: #### 2 246985 ####[facility] [address] [place] [address] Pre-Arrival Noteon 3 Pre-Arrival Note Normal [facility] Progress Note-Physicianon Progress Note-Physician Normal [facility] Comment on above: Result Comment: Elec tronically Signed By: PERLA PRADO, Leann\.br\Date and Time Signed: 02/24/23 09:47 EDT RAD - Preliminary Cat Scan R eporton 02-24-2023 RAD - Preliminary Cat Scan Report [id number] 6#1.00CD:127 Normal [facility] RAD - Preliminary Cat Scan Report [id number] 5#1.00CD:127 Normal [facility] TSH With T4fr Reflexon 02-24 TSH Qn 0.97 m[IU]/L Normal 0.34-5.60 [facility] Comment on above: Performed By: #### 1 7478208, 80462067, 5889603, 4345727, 8888095 ####[facility] [address] [place] [address] Troponinon 02-24-2023 Troponin I.cardiac [Mass/Vol] 7.40 pg/mL Low 10.10-27.10 [facility] Comment on above: Result Comment: The 95% CI (Confidence Interval) PPV (Positive Predictive Value) for myocardial infarction in females is 38 pg/mL, in males 51 pg/mL. The results should be used in conjunction with clinical conditions of myocardial infarction.(Access High Sensitivity Troponin I Instructions For Use, Mary Cherry, June 2018) Performed By: #### 1 1496759, 51785723, 3679327, 4120815, 1574650 ####[facility] [address] [place] [address] Troponin 0 Hr.on 02-24-2023 Troponin I.cardiac [Mass/Vol] 8.00 pg/mL Low 10.10-27.10 [facility] Comment on above: Result Comment: The 95% CI (Confidence Interval) PPV (Positive Predictive Value) for myocardial infarction in females is 38 pg/mL, in males 51 pg/mL. The results should be used in conjunction with clinical conditions of myocardial infarction.(Access High Sensitivity Troponin I Instructions For Use, Tax Alli, June 2018) Performed By: #### 2 456160, 27965489, 3792168, 28745098, 5911628, 92393661, 2093480 ####[facility] [address] [place] [address] Troponin 3 Hr.on 02-24-2023 Troponin I.cardiac [Mass/Vol] 6.70 pg/mL Low 10.10-27.10 [facility] Comment on above: Result Comment: The 95% CI (Confidence Interval) PPV (Positive Predictive Value) for myocardial infarction in females is 38 pg/mL, in males 51 pg/mL. The results should be used in conjunction with clinical conditions of myocardial infarction.(Access High Sensitivity Troponin I Instructions For Use, Tax [employer], June 2018) Performed By: #### 1 [id number] ####[facility] [address] [place] [address] UA With Cult Reflexon 2022 Bacteria LM Ql (Urine sed) TRACE Normal Trace [facility] Comment on above: Performed By: #### 1 5485827 ####[facility] [address] [place] [address] Bilirubin Ql (U) Negative Normal Negative [facility] Comment on above: Performed By: #### 1 2746400 ####[facility] [address] [place] [address] Clarity (U) SL CLOUDY Abnormal Clear [facility] Comment on above: Performed By: #### 1 6999018 ####[facility] [address] [place] [address] Color (U) YELLOW Normal Yellow [facility] Comment on above: Performed By: #### 1 8176709 ####[facility] [address] [place] [address] Crystals LM Ql (Urine sed) Present Normal [facility] Comment on above: Performed By: #### 1 7965765 ####[address] [address] Epithelial cells.squamous LM.HPF (Urine sed) [#/Area] /[HPF] Normal 0-2 [facility] Comment on above: Performed By: #### 1 1794496 ####[address] [address] Glucose Test strip (U) [Mass/Vol] Negative Normal Negative [facility] Comment on above: Performed By: #### 1 7190212 ####[address] [address] Hemoglobin Ql (U) 3+ Abnormal Negative [facility] Comment on above: Performed By: #### 1 9252162 ####[address] [address] Ketones (U) [Mass/Vol] TRACE Abnormal Negative Fi [facility] Comment on above: Performed By: #### 1 1928317 ####[address] [address] [place].plasma/[place] .RBC (Bld) [Mass ratio] 21-30 Abnormal 0-3 [facility] Comment on above: Performed By: #### 1 6073712 ####[facility] [address] [place] [address] Mucus Ql (Urine sed) TRACE Normal [facility] Comment on above: Performed By: #### 1 0335847 ####[address] [address] Nitrite Ql (U) Negative Normal Negative [facility] Comment on above: Performed By: #### 1 1254987 ####[address] [address] pH (U) 6.0 [pH] Invalid Interpretation Code 5.0-9.0 [facility] Comment on above: Performed By: #### 1 5713525 ####[address] [address] Protein (U) [Mass/Vol] 1+ Abnormal Negative [facility] Comment on above: Performed By: #### 1 9060559 ####[address] [address] Specific gravity (U) [Rel density] 1.020 Invalid Interpretation Code 1.005-1.030 [facility] Comment on above: Performed By: #### 1 0619345 ####[address] [address] Type of Urine collection method Clean Catch Normal [facility] Comment on above: Performed By: #### 1 1922471 ####[address] [address] Urobilinogen Qn (U) 0.2 {John'U}/dL Normal 0.0-1.0 [facility] Comment on above: Performed By: #### 1 9379744 ####[address] [address] WBC Auto Ql (U) TRACE Abnormal Negative [facility] Comment on above: Performed By: #### 1 8143199 ####[address] [address] WBC casts LM.LPF (Urine sed) [#/Area] 4-10 Normal [facility] Comment on above: Performed By: #### 1 5512558 ####[address] [address] WBC LM.HPF (Urine sed) [#/Area] 0-5 Normal 0-5 [facility] Comment on above: Performed By: #### 1 4234322 ####[address] [place] [address] URINALYSISOrdered By: Dave Jenkins on 02-24-2023 Bacteria LM Ql (Urine sed) Trace /HPF Normal Trace/HPF [facility] UA Auto SS Bilirubin Ql (U) Negative [...] Interpretation Code Negative [facility] UA Auto SS [place].plasma/[place] .RBC (Bld) [Mass ratio] 21-30 /HPF Invalid Interpretation Code 0-3/HPF [facility] UA Auto SS Mucus Ql (Urine sed) Trace (02/24/23 2:06 AM) Normal [facility] UA Auto SS Nitrite Ql (U) Negative (02/24/23 2:06 AM) Normal Negative [facility] UA Auto SS pH (U) 6.0 *NA* (02/24/23 2:06 AM) Invalid Interpretation Code 5.0 - 9.0 [facility] UA Auto SS Protein (U) [Mass/Vol] 1+ *ABN* (02/24/23 2:06 AM) Invalid Interpretation Code Negative [facility] UA Auto SS Specific gravity (U) [Rel density] 1.020 *NA* (02/24/23 2:06 AM) Invalid Interpretation Code 1.005 - 1.030 [facility] UA Auto SS UA Spec Desc Clean Catch (02/24/23 2:06 AM) Normal [facility] UA Auto SS Urobilinogen Qn (U) 0.6840400 {John'U}/dL Normal 0.0 - 1.0 EU/dL [facility] UA Auto SS WBC Auto Ql (U) Trace *ABN* (02/24/23 2:06 AM) Invalid Interpretation Code Negative [facility] UA Auto SS WBC casts LM.LPF (Urine sed) [#/Area] 4-10 (02/24/23 2:06 AM) Normal [facility] UA Auto SS WBC LM.HPF (Urine sed) [#/Area] 0-5 /HPF Normal 0-5/HPF [facility] UA Auto SS XR Chest Single Viewon 02-24 XR Chest Single View Normal [facility] XR Spine Lumbosacral 2 or 3 Viewson 02-24-2023 XR Spine Lumbosacral 2 or 3 Views Normal [facility] eGFRon 02-24-2023 GFR/1.73 sq M.predicted among blacks MDRD (S/P/Bld) [Vol rate/Area] 55 mL/min/1.73 m2 Low >=59 [facility] Comment on above: Order Comment: Order added by Discern Expert. Result Comment: eGFR is race adjusted. AA=. Performed By: #### 1 4785696, 15726903, 0570054, 6051213, 5565184 ####[facility] [address] [place] [address] GFR/1.73 sq M.predicted among non-blacks MDRD (S/P/Bld) [Vol rate/Area] 45 mL/min/1.73 m2 Low >=59 [facility] Comment on above: Order Comment: Order added by Discern Expert. Result Comment: Manager Division kuldip kidney disease could be indicated at eGFR's of less than 60 mL/min/1.73m2. Kidney failure is indicated at less than 15 mL/min/1.73m2. Performed By: #### 1 4542697, 51180009, 9827307, 7112694, 4757576 ####[facility] [address] [place] [address] GFR/1.73 sq M.predicted among blacks MDRD (S/P/Bld) [Vol rate/Area] 46 mL/min/1.73 m2 Low >=59 [facility] Comment on above: Order Comment: Order added by Discern Expert. Result Comment: eGFR is race adjusted. AA=. Performed By: #### 2 003815, 54969645, 3365646, 08811768, 4013497, 84875378, 2851605 ####[facility] [address] [place] [address] GFR/1.73 sq M.predicted among non-blacks MDRD (S/P/Bld) [Vol rate/Area] 38 mL/min/1.73 m2 Low >=59 [facility] Comment on above: Order Comment: Order added by Discern Expert. Result Comment: Manager Division kuldip kidney disease could be indicated at eGFR's of less than 60 mL/min/1.73m2. Kidney failure is indicated at less than 15 mL/min/1.73m2. Performed By: #### 2 [id number], [id number], [id number], [id number], [id number], [id number], [id number] ####[facility] [address] [place] [address] [facility]17 SARS-CoV-2 (COVID-19) RNA OSVALDO+probe Ql (Unsp spec) Not detected Normal NOT DETECTED [facility] Comment on above: Result Comment: This test is not yet approved or cleared by the [place] FDA. When there are no FDA-approved or cleared tests available, and other criteria are met, FDA can make tests available under an emergency access mechanism called an Emergency Use Authorization (EUA). The EUA for this test is supported by the [employer] of Health and Human Service's (HHS's) declaration [...] consistent with SARS-CoV-2. Performed By: #### C VDTBH #### [facility] [address] [place], [place] [address] Dr. Win Ardon SYMPTOMATIC COVID-19 ANTIGEN on 02-14-2023 EUA Statement SEE BELOW Normal [facility] Comment on above: Result Comment: This [...] sooner. Performed By: #### C VDAGS #### [facility] [address] [place], [place] [address] Dr. Win Ardon SARS-CoV-2 (COVID-19) RNA OSVALDO+probe Ql (Unsp spec) Negative Normal NEGATIVE [facility] Comment on above: Performed By: #### C VDAGS #### [facility] [address] [place] [address] [id number] [address] Win Ardon XR KNEE RT 4V [...] MIKAEL GUZMAN Date: 2022-10-05 19:58 Normal [facility] Creatinine (Bld) [Mass/Vol]O rdered By: Ese Tan on 02-18-2022 Creatinine [Mass/Vol] 0.8 mg/dL 0.6-1.3 [facility] Comment on above: ER/ESD physician is notified/shown all ISTAT results.Critical values may be confirmed by laboratory testing ifdeemed necessary by ER attending doctor. ISTAT XRay CREon 02-18-2022 Creatinine [Mass/Vol] 0.8 mg/dL Normal 0.6-1.3 [facility] Comment on above: Result Comment: ER/E SD physician is notified/shown all ISTAT results. Critical values may be confirmed by laboratory testing if deemed necessary by ER attending doctor. Performed By: #### B MEDICAL MANAGEMENT TRAINER, PTT, CKMB, LIPASE, CK, TROP, CBC, PT, CMP #### [address] ISTAT GFR ( > 60 Normal [facility] Comment on above: Result Comment: GFR estimated reference range: According to KDOQI guidelines, <60 ml/min/1.73m2 is sufficient to diagnose a patient with chronic kidney disease. PERFORMED BY: [place] [address] PATHOLOGIST TACK MAKER WALDO WANG M.D. Performed By: #### B MEDICAL MANAGEMENT TRAINER, PTT, CKMB, LIPASE, CK, TROP, CBC, PT, CMP #### [address] ISTAT GFR (Non- Am > 60 Normal [facility] Comment on above: Performed By: #### B MEDICAL MANAGEMENT TRAINER, PTT, CKMB, LIPASE, CK, TROP, CBC, PT, CMP #### [address] MR abdomen wo/w conon 2021 MR abdomen wo/w con [facility] Main [place] [address] [place] [address] MRI Report Signed Patient: Yeyo Avila MR#: [id number] : 1955 Acct:[id number] Age/Sex: 66 / F ADM Date: 02/18/22 Loc: MR Room: Type: [facility] CLI Attending Dr: Ese Tan MD Ordering Provider: [...] Warren Jr., D.O.02/18/2022 4:02 PM Dictation Location: [place] [address] Transcribed By: [facility] 02/18/22 1602 Dictated By: Javi Warren Jr, DO 02/18/22 1556 Signed By: 02/18/22 1602 Normal [facility] No Panel InformationOrdered By: Ese Tan on 02-18-2022 POC Estimated GFR > 60 [facility] Comment on above: GFR estimated refere nce range: According to KDOQI guidelines, <60 ml/min/1.73m2 is sufficient to diagnose a patient with chronic kidney disease. POC Estimated GFR Non- Amer > 60 [facility] Cardiovascular Lab Reporton 03-22-2021 Cardiovascular Lab Report [facility] MR #: [id number] Department of Physician: Radha Carter M.D. Division of Service Date: 03/21/2021 Cardiology Birthdate: 1955 Adult Cardiovascular Room [address]: [address] [place] [place] [address] Cardiovascular Laboratory Report FINAL IMPRESSIONS: 1. 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 2. Patent stent in the second diagonal branch of the left anterior descending coronary artery with asae-xs-pgrnyyan in-stent restenosis. 3. Otherwise, nonobstructive coronary arteries [...] bilateral selective coronary angiography, placement of a 6-Scottish MynxGrip closure device. METHODS: After risks, benefits, and alternatives were explained, written informed consent was obtained. The patient was prepped and draped in the usual sterile fashion over the right groin. Using 1% lidocaine solution, local infiltration anesthesia was achieved. Using a modified Seldinger technique, a micropuncture kit, an ultrasound guidance access to the right common femoral vein and artery was obtained. A 6-Scottish x 11 cm sheath were placed in each. Limited femoral angiography was performed via the micropuncture kit prior to upsizing through the 6-Scottish sheath in the artery. A Cazares catheter was used for right heart catheterization measuring pressures in the right atrium, right ventricle, pulmonary artery, and pulmonary capillary wedge positions. Oxygen saturations were obtained and cardiac output/cardiac index was calculated using the modified Lacey principle. The Cazares catheter was removed. Bilateral selective coronary angiography was performed using JL4 and JR4 catheters. After reviewing the images, it was elected to conclude the procedure. All catheters were removed. A 6-Scottish MynxGrip closure device was deployed per protocol [...] P Rebeka Pardo M.D. Date Dict: 03/21/2021/01:03 Sergio/Rebeka Pardo M.D. Date Trans: 03/22/2021 05:11 Sean/yoel [id number] cc: Alexia Cline, MSN, ASSISTANT PROFESSOR OF PHYSICS-C Department Of Surgery [place] [address] [facility] [address] Robin Ponce M.D. [address] [place] [address] Normal [facility] CT angio abdomen pelvison CT angio abdomen pelvis [facility] Main [place] [address] [place] [address] [address] Scan Report Signed Patient: Yeyo Avila MR#: [id number] : 1955 Acct:[id number] Age/Sex: 65 / F ADM Date: 03/19/21 Loc: ER Room: Type: [facility] ER Attending Dr: Ordering Provider: Ismael Santillan DO Date of Service: 03/19/21 CT/CT angio chest: r/o dissection ([id number]) CT/CT angio abdomen pelvis: R/O DISSECTION Copies to: Ismael Santillan DO CTA chest and CTA abdomen and [...] Martinez Jr., M.D.03/20/2021 8:52 AM Dictation Location: [place] [address] Transcribed By: [facility] 03/20/2152 Dictated By: Gavin Martinez Jr, MD 03/20/2141 Signed By: 03/20/2152 Normal [facility] Dipstick and Microscopicon 0 03-20-2021 Appearance (U) Clear Normal Clear [facility] Comment on above: Order Comment: Name Collection Type:: Clean-Voided Midstream Performed By: #### A DDONUAPLUS #### [facility] [address] [place] [address] [place] Bacteria,Urine None Seen Normal None Seen [facility] Comment on above: Order Comment: Name Collection Type:: Clean-Voided Midstream Performed By: #### A DDONUAPLUS #### [facility] [address] [place] [id number] [place] Bilirubin,Urine Negative Normal Negative [facility] Comment on above: Order Comment: Name Collection Type:: Clean-Voided Midstream Performed By: #### A DDONUAPLUS #### [facility] [address] [place] [address] [place] Color (U) Yellow Normal Yellow [facility] Comment on above: Order Comment: Name Collection Type:: Clean-Voided Midstream Performed By: #### A DDONUAPLUS #### [facility] [address] [place] [id number] [place] Glucose Ql (U) 500 mg/dL High Normal [facility] Comment on above: Order Comment: Name Collection Type:: Clean-Voided Midstream Performed By: #### A DDONUAPLUS #### [facility] [address] [place] [id number] [place] Hyaline Casts,Urine 0-8 Normal 0-[address] [facility] Comment on above: Order Comment: Name Collection Type:: Clean-Voided Midstream Result Comment: PERF ORMED BY: [place] [address] PATHOLOGIST TACK MAKER WALDO WANG M.D. Performed By: #### A DDONUAPLUS #### [place] [address] [place] Ketones Ql (U) Trace High Negative [facility] Comment on above: Order Comment: Name Collection Type:: Clean-Voided Midstream Performed By: #### A DDONUAPLUS #### [address] Leukocyte esterase Test strip Ql (U) Negative Normal Negative [facility] Comment on above: Order Comment: Name Collection Type:: Clean-Voided Midstream Performed By: #### A DDONUAPLUS #### [place] [address] [place] Nitrite,Urine Negative Normal Negative [facility] Comment on above: Order Comment: Name Collection Type:: Clean-Voided Midstream Performed By: #### A DDONUAPLUS #### [place] [address] [place] Occult Blood,Urine Negative Normal Negative [facility] Comment on above: Order Comment: Name Collection Type:: Clean-Voided Midstream Performed By: #### A DDONUAPLUS #### [place] [address] [place] pH (U) 6.0 [pH] Normal 5.0-9.0 [facility] Comment on above: Order Comment: Name Collection Type:: Clean-Voided Midstream Performed By: #### A DDONUAPLUS #### [place] [address] [place] Protein,Urine Trace High Negative [facility] Comment on above: Order Comment: Name Collection Type:: Clean-Voided Midstream Performed By: #### A DDONUAPLUS #### [place] [address] [place] RBC,Urine 1-2 Normal 0-4 [facility] Comment on above: Order Comment: Name Collection Type:: Clean-Voided Midstream Performed By: #### A DDONUAPLUS #### [facility] [address] [place] [address] Renal Epithelial Cells,Urine None Seen Normal 0-1 [facility] Comment on above: Order Comment: Name Collection Type:: Clean-Voided Midstream Performed By: #### A DDONUAPLUS #### [address] Specificy [place],Urine > 1.050 High 1.001-1.030 [facility] Comment on above: Order Comment: Name Collection Type:: Clean-Voided Midstream Performed By: #### A DDONUAPLUS #### [address] Squamous Epithelial Cell,Urine 3-4 High 0-2 [facility] Comment on above: Order Comment: Name Collection Type:: Clean-Voided Midstream Performed By: #### A DDONUAPLUS #### [address] Urobilinogen,Urine Normal Normal Normal [facility] Comment on above: Order Comment: Name Collection Type:: Clean-Voided Midstream Performed By: #### A DDONUAPLUS #### [address] WBC,Urine 1-2 Normal 0-4 [facility] Comment on above: Order Comment: Name Collection Type:: Clean-Voided Midstream Performed By: #### A DDONUAPLUS #### [address] ECG 12 lead ECGon 03-20-2021 ECG 12 lead ECG [facility] [place] [address] Electrocardiograph Report Signed Patient: Yeyo Avila MR#: [id number] : 1955 Acct:[id number] Age/Sex: 65 / F ADM Date: 03/19/21 [...] Electronically Signed By:TIMOTEO COOPER MD Transcribed By: [facility] Dictated By: Timoteo Cooper MD 03/19/212224 Signed By: 03/21/21 0905 Normal [facility] XR chest 2V*on 03-20-2021 XR chest 2V* [facility] [place] [place] [address] XRay Report Signed Patient: Yeyo Avila MR#: [id number] : 1955 Acct:[id number] Age/Sex: 65 / F ADM Date: 03/19/21 [...] Martinez Jr., M.D.03/20/2021 8:53 AM Dictation Location: [place] [address] Transcribed By: [facility] 03/20/21 0853 Dictated By: Gavin Martinez Jr, MD 03/20/21 0852 Signed By: 03/20/21 0853 Normal [facility] B-Type Natriuretic Peptideon 03-19-2021 Natriuretic peptide B (Bld) [Mass/Vol] 30.0 pg/mL Normal 5-100 [facility] Comment on above: Result Comment: PERF ORMED BY: [place] [address] PATHOLOGIST TACK MAKER WALDO WANG M.D. Performed By: #### B MEDICAL MANAGEMENT TRAINER, PTT, CKMB, LIPASE, CK, TROP, CBC, PT, CMP #### [address] Complete Blood Count Auto Di ffon 03-19-2021 Basophils (Bld) [#/Vol] 0.2 10*3/uL Normal 0.0-0.2 [facility] Comment on above: Result Comment: PERF ORMED BY: [place] [address] PATHOLOGIST TACK MAKER WALDO WANG M.D. Performed By: #### B MEDICAL MANAGEMENT TRAINER, PTT, CKMB, LIPASE, CK, TROP, CBC, PT, CMP #### [address] Basophils/100 WBC (Bld) 0.9 % Normal . [facility] Comment on above: Performed By: #### B MEDICAL MANAGEMENT TRAINER, PTT, CKMB, LIPASE, CK, TROP, CBC, PT, CMP #### [place] [address] [place] Eosinophils (Bld) [#/Vol] 0.2 10*3/uL Normal 0.0-0.45 [facility] Comment on above: Performed By: #### B MEDICAL MANAGEMENT TRAINER, PTT, CKMB, LIPASE, CK, TROP, CBC, PT, CMP #### [address] Eosinophils/100 WBC (Bld) 1.1 % Normal . [facility] Comment on above: Performed By: #### B MEDICAL MANAGEMENT TRAINER, PTT, CKMB, LIPASE, CK, TROP, CBC, PT, CMP #### [address] Erythrocyte distribution width (RBC) [Ratio] 13.7 % Normal 11.9-15.3 [facility] Comment on above: Performed By: #### B MEDICAL MANAGEMENT TRAINER, PTT, CKMB, LIPASE, CK, TROP, CBC, PT, CMP #### [address] Hematocrit (Bld) [Volume fraction] 43.7 % Normal 34.0-46.4 [facility] Comment on above: Performed By: #### B MEDICAL MANAGEMENT TRAINER, PTT, CKMB, LIPASE, CK, TROP, CBC, PT, CMP #### [address] Hemoglobin (Bld) [Mass/Vol] 14.8 g/dL Normal 11.8-15.4 [facility] Comment on above: Performed By: #### B MEDICAL MANAGEMENT TRAINER, PTT, CKMB, LIPASE, CK, TROP, CBC, PT, CMP #### [address] Lymphocytes (Bld) [#/Vol] 4.2 10*3/uL Normal 1.00-4.8 [facility] Comment on above: Performed By: #### B MEDICAL MANAGEMENT TRAINER, PTT, CKMB, LIPASE, CK, TROP, CBC, PT, CMP #### [address] Lymphocytes/100 WBC (Bld) 23.0 % Normal . [facility] Comment on above: Performed By: #### B MEDICAL MANAGEMENT TRAINER, PTT, CKMB, LIPASE, CK, TROP, CBC, PT, CMP #### [address] MCH (RBC) [Entitic mass] 29.8 pg Normal 24.7-34.3 [facility] Comment on above: Performed By: #### B MEDICAL MANAGEMENT TRAINER, PTT, CKMB, LIPASE, CK, TROP, CBC, PT, CMP #### [address] MCV (RBC) [Entitic vol] 87.7 fL Normal 80-100 [facility] Comment on above: Performed By: #### B MEDICAL MANAGEMENT TRAINER, PTT, CKMB, LIPASE, CK, TROP, CBC, PT, CMP #### [address] Mean Corpuscular HGB Conc 33.9 g/dL Normal 32.0-35.0 [facility] Comment on above: Performed By: #### B MEDICAL MANAGEMENT TRAINER, PTT, CKMB, LIPASE, CK, TROP, CBC, PT, CMP #### [address] Monocytes (Bld) [#/Vol] 1.1 10*3/uL High 0.0-0.8 [facility] Comment on above: Performed By: #### B MEDICAL MANAGEMENT TRAINER, PTT, CKMB, LIPASE, CK, TROP, CBC, PT, CMP #### [address] Monocytes/100 WBC (Bld) 6.1 % Normal . [facility] Comment on above: Performed By: #### B MEDICAL MANAGEMENT TRAINER, PTT, CKMB, LIPASE, CK, TROP, CBC, PT, CMP #### [address] Neutrophils (Bld) [#/Vol] 12.4 10*3/uL High 1.8-7.7 [facility] Comment on above: Performed By: #### B MEDICAL MANAGEMENT TRAINER, PTT, CKMB, LIPASE, CK, TROP, CBC, PT, CMP #### [address] Neutrophils/100 WBC (Bld) 68.9 % Normal . [facility] Comment on above: Performed By: #### B MEDICAL MANAGEMENT TRAINER, PTT, CKMB, LIPASE, CK, TROP, CBC, PT, CMP #### [place] [address] [place] Nucleated RBC/100 WBC (Bld) [Ratio] 0.2 % Normal 0-0.5 [facility] Comment on above: Performed By: #### B MEDICAL MANAGEMENT TRAINER, PTT, CKMB, LIPASE, CK, TROP, CBC, PT, CMP #### [address] Platelet mean volume (Bld) [Entitic vol] 9.2 fL Normal 6.3-10.7 [facility] Comment on above: Performed By: #### B MEDICAL MANAGEMENT TRAINER, PTT, CKMB, LIPASE, CK, TROP, CBC, PT, CMP #### [address] Platelets (Bld) [#/Vol] 340 10*3/uL Normal 150-450 [facility] Comment on above: Performed By: #### B MEDICAL MANAGEMENT TRAINER, PTT, CKMB, LIPASE, CK, TROP, CBC, PT, CMP #### [address] RBC (Bld) [#/Vol] 4.98 10*6/uL Normal 3.60-5.[address] [facility] Comment on above: Performed By: #### B MEDICAL MANAGEMENT TRAINER, PTT, CKMB, LIPASE, CK, TROP, CBC, PT, CMP #### [address] WBC (Bld) [#/Vol] 18.0 10*3/uL High 4.5-11.[address] [facility] Comment on above: Performed By: #### B MEDICAL MANAGEMENT TRAINER, PTT, CKMB, LIPASE, CK, TROP, CBC, PT, CMP #### [address] Comprehensive Metabolic Pane talia 03-19-2021 Albumin [Mass/Vol] 4.7 g/dL Normal 3.2-5.5 [facility] Comment on above: Performed By: #### B MEDICAL MANAGEMENT TRAINER, PTT, CKMB, LIPASE, CK, TROP, CBC, PT, CMP #### [address] Albumin/Globulin [Mass ratio] 1.4 {ratio} Normal [facility] Comment on above: Performed By: #### B MEDICAL MANAGEMENT TRAINER, PTT, CKMB, LIPASE, CK, TROP, CBC, PT, CMP #### [address] ALP [Catalytic activity/Vol] 83 U/L Normal 32-92 [facility] Comment on above: Performed By: #### B MEDICAL MANAGEMENT TRAINER, PTT, CKMB, LIPASE, CK, TROP, CBC, PT, CMP #### [address] ALT [Catalytic activity/Vol] 15 U/L Normal 10-60 [facility] Comment on above: Performed By: #### B MEDICAL MANAGEMENT TRAINER, PTT, CKMB, LIPASE, CK, TROP, CBC, PT, CMP #### [address] AST [Catalytic activity/Vol] 15 U/L Normal 10-42 [facility] Comment on above: Performed By: #### B MEDICAL MANAGEMENT TRAINER, PTT, CKMB, LIPASE, CK, TROP, CBC, PT, CMP #### [address] Bilirubin [Mass/Vol] 1.6 mg/dL High 0.3-1.2 [facility] Comment on above: Result Comment: Samp les from patients who have taken Naproxen have shown spurious elevation in Total Bilirubin levels. A metabolite of Naproxen, O-desmethylnaproxen, has been shown to interfere with the Jendrassik-Grof method for measuring Total Bilirubin. Performed By: #### B MEDICAL MANAGEMENT TRAINER, PTT, CKMB, LIPASE, CK, TROP, CBC, PT, CMP #### [address] Calcium [Mass/Vol] 10.1 mg/dL Normal 8.2-10.2 [facility] Comment on above: Performed By: #### B MEDICAL MANAGEMENT TRAINER, PTT, CKMB, LIPASE, CK, TROP, CBC, PT, CMP #### [address] Chloride [Moles/Vol] 99 mmol/L Normal 95-114 [facility] Comment on above: Performed By: #### B MEDICAL MANAGEMENT TRAINER, PTT, CKMB, LIPASE, CK, TROP, CBC, PT, CMP #### [place] [address] [place] CO2 [Moles/Vol] 23.1 mmol/L Normal 22.0-30.0 [facility] Comment on above: Performed By: #### B MEDICAL MANAGEMENT TRAINER, PTT, CKMB, LIPASE, CK, TROP, CBC, PT, CMP #### [facility] [address] Creatinine [Mass/Vol] 1.07 mg/dL High 0.44-1.03 [facility] Comment on above: Performed By: #### B MEDICAL MANAGEMENT TRAINER, PTT, CKMB, LIPASE, CK, TROP, CBC, PT, CMP #### [facility] [address] Creatinine Clr Calc Pharmacy 64.26 [facility] Comment on above: Performed By: #### B MEDICAL MANAGEMENT TRAINER, PTT, CKMB, LIPASE, CK, TROP, CBC, PT, CMP #### [facility] [address] Estimated GFR ( [place] > 60 [facility] Comment on above: Result Comment: GFR estimated reference range: According to KDOQI guidelines, <60 ml/min/1.73m2 is sufficient to diagnose a patient with chronic kidney disease. Performed By: #### B MEDICAL MANAGEMENT TRAINER, PTT, CKMB, LIPASE, CK, TROP, CBC, PT, CMP #### [facility] [address] Estimated GFR (Non- Am 52 [facility] Comment on above: Performed By: #### B MEDICAL MANAGEMENT TRAINER, PTT, CKMB, LIPASE, CK, TROP, CBC, PT, CMP #### [facility] [address] Globulin (S) [Mass/Vol] 3.3 g/dL [facility] Comment on above: Performed By: #### B MEDICAL MANAGEMENT TRAINER, PTT, CKMB, LIPASE, CK, TROP, CBC, PT, CMP #### [facility] [address] Glucose [Mass/Vol] 264 mg/dL High 70-100 [facility] Comment on above: Result Comment: [facility] Glucose Reference Range is dependent on time and content of last meal. Glucose of more than 200 mg/dL in a nonstressed, ambulatory subject supports the diagnosis of Diabetes Mellitus. ADA recommended reference range Performed By: #### B MEDICAL MANAGEMENT TRAINER, PTT, CKMB, LIPASE, CK, TROP, CBC, PT, CMP #### [address] Potassium [Moles/Vol] 3.8 mmol/L Normal 3.5-5.1 [facility] Comment on above: Performed By: #### B MEDICAL MANAGEMENT TRAINER, PTT, CKMB, LIPASE, CK, TROP, CBC, PT, CMP #### [address] Protein [Mass/Vol] 8.0 g/dL High 6.1-7.9 [facility] Comment on above: Performed By: #### B MEDICAL MANAGEMENT TRAINER, PTT, CKMB, LIPASE, CK, TROP, CBC, PT, CMP #### [address] Sodium [Moles/Vol] 137 mmol/L Normal 136-146 [facility] Comment on above: Performed By: #### B MEDICAL MANAGEMENT TRAINER, PTT, CKMB, LIPASE, CK, TROP, CBC, PT, CMP #### [address] Urea nitrogen [Mass/Vol] 29 mg/dL High 9-23 [facility] Comment on above: Performed By: #### B MEDICAL MANAGEMENT TRAINER, PTT, CKMB, LIPASE, CK, TROP, CBC, PT, CMP #### [address] Creatine Kinaseon 03-19-2021 CK [Catalytic activity/Vol] 42 U/L Normal 22-269 [facility] Comment on above: Performed By: #### B MEDICAL MANAGEMENT TRAINER, PTT, CKMB, LIPASE, CK, TROP, CBC, PT, CMP #### [address] Creatinine Kinase MBon 03-19 CK.MB [Mass/Vol] 1.3 ng/mL Normal 0.6-6.3 [facility] Comment on above: Performed By: #### B MEDICAL MANAGEMENT TRAINER, PTT, CKMB, LIPASE, CK, TROP, CBC, PT, CMP #### [facility] [address] CKMB Relative Index 3.0 % High 0.00-2.[address] [facility] Comment on above: Performed By: #### B MEDICAL MANAGEMENT TRAINER, PTT, CKMB, LIPASE, CK, TROP, CBC, PT, CMP #### [facility] [address] ECG 12 lead ECGon 03-19-2021 ECG 12 lead ECG [facility] Main [place] [address] [place] [address] Electrocardiograph Report Signed Patient: Yeyo Avila MR#: [id number] : 1955 Acct:[id number] Age/Sex: 65 / F ADM Date: 03/19/21 [...] MD 03/19/212112 Signed By: 03/21/21 0905 Normal [facility] Lipaseon 03-19-2021 Lipase [Catalytic activity/Vol] 21.0 U/L Low 22-51 [facility] Comment on above: Result Comment: PERF ORMED BY: [place] [address] PATHOLOGIST TACK MAKER WALDO WNAG M.D. Performed By: #### B MEDICAL MANAGEMENT TRAINER, PTT, CKMB, LIPASE, CK, TROP, CBC, PT, CMP #### [facility] [address] Partial Thromboplastin Timeo n 03-19-2021 aPTT Coag (Bld) [Time] 26.1 s Normal 25.1-36.5 [facility] Comment on above: Result Comment: PERF ORMED BY: [place] [address] PATHOLOGIST TACK MAKER WALDO WANG M.D. Performed By: #### B MEDICAL MANAGEMENT TRAINER, PTT, CKMB, LIPASE, CK, TROP, CBC, PT, CMP #### [facility] [address] Prothrombin Time INRon 03-19 INR Coag (PPP) [Relative time] 1.2 {INR} Normal [facility] Comment on above: Result Comment: INR Therapeutic [...] 3 - 4.5 Performed By: #### B MEDICAL MANAGEMENT TRAINER, PTT, CKMB, LIPASE, CK, TROP, CBC, PT, CMP #### [facility] [address] PT Coag (PPP) [Time] 13.6 s High 9.0-12.9 [facility] Comment on above: Performed By: #### B MEDICAL MANAGEMENT TRAINER, PTT, CKMB, LIPASE, CK, TROP, CBC, PT, CMP #### [facility] [address] Troponin I(TnI)on 03-19-2021 Troponin I.cardiac [Mass/Vol] ng/mL Normal 0-0.02 [facility] Comment on above: Result Comment: EBONY ME Cut off value > or equal to 0.03 ng/mL in conjunction with clinical conditions of myocardial infarction. (www.escardio.org/guidelines) PERFORMED BY: [place] [address] PATHOLOGIST TACK MAKER WALDO WANG M.D. Performed By: #### B MEDICAL MANAGEMENT TRAINER, PTT, CKMB, LIPASE, CK, TROP, CBC, PT, CMP #### [facility] [address] Basic Metab w/rfx MGon 09-01 (cont.) Normal [facility] Comment on above: Result Comment: Aver age GFR for 60-69 years old: 85 mL/min/1.73sq m Chronic Kidney Disease: <60 mL/min/1.73sq m Kidney failure: <15 mL/min/1.73sq m eGFR calculated using average adult body mass. Additional eGFR calculator available at: http://www.PageFreezer/multiple_crcl_2012.htm Performed By: #### E RTPF #### [address] [address] Registered Nurse Behavioral Health: Dheeraj Garcia MD Anion gap [Moles/Vol] 13 mmol/L Normal 9-17 [facility] Comment on above: Performed By: #### E RTPF #### [address] [address] Registered Nurse Behavioral Health: Dheeraj Garcia MD Calcium [Mass/Vol] 8.8 mg/dL Normal 8.6-10.4 [facility] Comment on above: Performed By: #### E RTPF #### [address] [address] Registered Nurse Behavioral Health: Dheeraj Garcia MD Chloride [Moles/Vol] 106 mmol/L Normal 98-107 [facility] Comment on above: Performed By: #### E RTPF #### [address] [address] Registered Nurse Behavioral Health: Dheeraj Garcia MD CO2 [Moles/Vol] 21 mmol/L Normal 20-31 [facility] Comment on above: Performed By: #### E RTPF #### [address] [address] Registered Nurse Behavioral Health: Dheeraj Garcia MD Creatinine [Mass/Vol] 0.53 mg/dL Normal 0.50-0.90 [facility] Comment on above: Performed By: #### E RTPF #### [address] [address] Registered Nurse Behavioral Health: Dheeraj Garcia MD GFR, Amer >60 Normal >60 [facility] Comment on above: Performed By: #### E RTPF #### [address] [address] Registered Nurse Behavioral Health: Dheeraj Garcia MD GFR,non Amer >60 Normal >60 [facility] Comment on above: Performed By: #### E RTPF #### [address] [address] Registered Nurse Behavioral Health: Dheeraj Garcia MD Glucose [Mass/Vol] 169 mg/dL High 70-99 [facility] Comment on above: Performed By: #### E RTPF #### [address] [address] Registered Nurse Behavioral Health: Dheeraj Garcia MD Potassium [Moles/Vol] 4.0 mmol/L Normal 3.7-5.3 [facility] Comment on above: Performed By: #### E RTPF #### [address] [address] Registered Nurse Behavioral Health: Dheeraj Garcia MD Sodium [Moles/Vol] 140 mmol/L Normal 135-144 [facility] Comment on above: Performed By: #### E RTPF #### [address] [address] Registered Nurse Behavioral Health: Dheeraj Garcia MD Urea nitrogen [Mass/Vol] 10 mg/dL Normal 8-23 [facility] Comment on above: Performed By: #### E RTPF #### [facility] [address] [place], [place] [id number] Registered Nurse Behavioral Health: Dheeraj Garcia MD BUN/CRE Ratio NOT REPORTED Normal 9-20 [facility] Comment on above: Performed By: #### E RTPF #### [facility] [address] [place], [place] [id number] Registered Nurse Behavioral Health: Dheeraj Garcia MD Staging: NOT REPORTED Normal [facility] Comment on above: Performed By: #### E RTPF #### [facility] [address] [place], [place] [id number] Registered Nurse Behavioral Health: Dheeraj Garcia MD Basic Metabolic Panel w/ Ref martín to MGon 09-01-2020 Anion gap [Moles/Vol] 13 mmol/L 9 - 17 mmol/L [place] Bun/Cre Ratio NOT REPORTED [place] Calcium [Mass/Vol] 8.8 mg/dL 8.6 - 10. 4 mg/dL [place] Chloride [Moles/Vol] 106 mmol/L 98 - 10 7 mmol/L [place] CO2 [Moles/Vol] 21 mmol/L 20 - 31 mmol/L [place] Creatinine [Mass/Vol] 0.53 mg/dL 0.5 - 0.9 mg/dL [place] GFR >60 >60 mL/min [place] GFR Non- >60 >60 mL/min [place] GFR/1.73 sq M predicted among non-blacks MDRD (S/P/Bld) [Vol rate/Area] [place] Comment on above: Average GFR for 60-6 9 years old: 85 mL/min/1.73sq m Chronic Kidney Disease: <60 mL/min/1.73sq m Kidney failure: <15 mL/min/1.73sq m eGFR calculated using average adult body mass. Additional eGFR calculator available at: http://www.Your Survival.Blue Egg/multiple_crcl_2012.htm GFR/1.73 sq M predicted among non-blacks MDRD (S/P/Bld) [Vol rate/Area] NOT REPORTED [place] Glucose [Mass/Vol] 169 mg/dL High 70 - 99 mg/dL [place] Interpretation and review of laboratory results Abnormal [place] Potassium [Moles/Vol] 4.0 mmol/L 3.7 - 5.3 mmol/L [place] Sodium [Moles/Vol] 140 mmol/L 135 - 144 mmol/L [place] Urea nitrogen [Mass/Vol] 10 mg/dL 8 - 23 mg/dL [place] CBC auto differentialon 08-17 Basophils (Bld) [#/Vol] 0.10 10*3/uL [place] Basophils/100 WBC (Bld) 1 % 0 - 2 % [place] Differential Type NOT REPORTED [place] Eosinophils (Bld) [#/Vol] 0.25 10*3/uL [place] Eosinophils/100 WBC (Bld) 3 % 1 - 4 % [place] Erythrocyte distribution width (RBC) [Ratio] 14.0 % 11.8 - 14.4 % [place] Hematocrit (Bld) [Volume fraction] 40.7 % 36.3 - 47.1 % [place] Hemoglobin (Bld) [Mass/Vol] 12.7 g/dL 11.9 - 15.1 g/dL [place] Immature granulocytes (Bld) [#/Vol] 0.06 10*3/uL [place] Immature granulocytes (Bld) [#/Vol] 1 % High 0 [place] Interpretation and review of laboratory results Abnormal [place] Lymphocytes (Bld) [#/Vol] 2.12 10*3/uL [place] Lymphocytes/100 WBC (Bld) 23 % Low 24 - 43 % [place] MCH (RBC) [Entitic mass] 28.1 pg 25.2 - 33.5 pg [place] MCHC (RBC) [Mass/Vol] 31.2 g/dL 28.4 - 34.8 g/dL [place] MCV (RBC) [Entitic vol] 90.0 fL 82.6 - 102.9 fL [place] Monocytes (Bld) [#/Vol] 0.68 10*3/uL [place] Monocytes/100 WBC (Bld) 7 % 3 - 12 % [place] Platelet mean volume (Bld) [Entitic vol] 10.6 fL 8.1 - 13.5 fL [place] Platelets (Bld) [#/Vol] NOT REPORTED [place] Platelets (Bld) [#/Vol] 251 10*3/uL [place] RBC (Bld) [#/Vol] 4.52 10*6/uL 3.95 - 5.1 1 m/uL [place] RBC morphology finding Nom (Bld) NOT REPORTED [place] Segmented neutrophils/100 WBC (Bld) 65 % 36 - 65 % [place] Segs Absolute 6.18 [place] WBC (Bld) [#/Vol] 0.0 10*3/uL 0.0 per 10 0 WBC [place] WBC (Bld) [#/Vol] 9.4 10*3/uL [place] WBC Morphology NOT REPORTED [place] CBC with Diffon 09-01-2020 Abs. Basophil 0.10 k/uL Normal 0.00-0.20 [facility] Comment on above: Performed By: #### C DP, HCG, ALCB, BMPX, LIPR, GLYHGB #### [facility] [address] [place] [address] Registered Nurse Behavioral Health: Dheeraj Garcia MD Abs.Imm.Granulocyte 0.06 k/uL Normal 0.00-0.30 [facility] Comment on above: Performed By: #### C DP, HCG, ALCB, BMPX, LIPR, GLYHGB #### [facility] res[facility] [address] [place] [address] Registered Nurse Behavioral Health: Dheeraj Garcia MD Abs.Neutrophil (Seg) 6.18 k/uL Normal 1.50-8.10 [facility] Comment on above: Performed By: #### C DP, HCG, ALCB, BMPX, LIPR, GLYHGB #### [facility] [address] [place] [address] Registered Nurse Behavioral Health: Dheeraj Garcia MD Basophils/100 WBC (Bld) 1 % Normal 0-2 [facility] Comment on above: Performed By: #### C DP, HCG, ALCB, BMPX, LIPR, GLYHGB #### [facility] [address] [place] [address] Registered Nurse Behavioral Health: Dheeraj Garcia MD Eosinophils (Bld) [#/Vol] 0.25 10*3/uL Normal 0.00-0.44 [facility] Comment on above: Performed By: #### C DP, HCG, ALCB, BMPX, LIPR, GLYHGB #### [facility] [address] [place] [address] Registered Nurse Behavioral Health: Dheeraj Garcia MD Eosinophils/100 WBC (Bld) 3 % Normal 1-4 [facility] Comment on above: Performed By: #### C DP, HCG, ALCB, BMPX, LIPR, GLYHGB #### [facility] [address] [place] [address] Registered Nurse Behavioral Health: Dheeraj Garcia MD Erythrocyte distribution width (RBC) [Ratio] 14.0 % Normal 11.8-14.4 [facility] Comment on above: Performed By: #### C DP, HCG, ALCB, BMPX, LIPR, GLYHGB #### [facility] [address] [place] [address] Registered Nurse Behavioral Health: Dheeraj Garcia MD Hematocrit (Bld) [Volume fraction] 40.7 % Normal 36.3-47.1 [facility] Comment on above: Performed By: #### C DP, HCG, ALCB, BMPX, LIPR, GLYHGB #### [address] [address] Registered Nurse Behavioral Health: Dheeraj Garcia MD Hemoglobin (Bld) [Mass/Vol] 12.7 g/dL Normal 11.9-15.1 [facility] Comment on above: Performed By: #### C DP, HCG, ALCB, BMPX, LIPR, GLYHGB #### [place] [address] Registered Nurse Behavioral Health: Dheeraj Garcia MD Immature granulocytes (Bld) [#/Vol] 1 % High 0 [facility] Comment on above: Performed By: #### C DP, HCG, ALCB, BMPX, LIPR, GLYHGB #### [place] [address] Registered Nurse Behavioral Health: Dheeraj Garcia MD Lymphocytes (Bld) [#/Vol] 2.12 10*3/uL Normal 1.10-3.70 [facility] Comment on above: Performed By: #### C DP, HCG, ALCB, BMPX, LIPR, GLYHGB #### [place] [address] Registered Nurse Behavioral Health: Dheeraj Garcia MD Lymphocytes/100 WBC (Bld) 23 % Low 24-43 [facility] Comment on above: Performed By: #### C DP, HCG, ALCB, BMPX, LIPR, GLYHGB #### [place] [address] Registered Nurse Behavioral Health: Dheeraj Garcia MD MCH (RBC) [Entitic mass] 28.1 pg Normal 25.2-33.5 [facility] Comment on above: Performed By: #### C DP, HCG, ALCB, BMPX, LIPR, GLYHGB #### [address] [address] Registered Nurse Behavioral Health: Dheeraj Garcia MD MCHC (RBC) [Mass/Vol] 31.2 g/dL Normal 28.4-34.8 [facility] Comment on above: Performed By: #### C DP, HCG, ALCB, BMPX, LIPR, GLYHGB #### [address] [address] Registered Nurse Behavioral Health: Dheeraj Garcia MD MCV (RBC) [Entitic vol] 90.0 fL Normal 82.6-102.9 [facility] Comment on above: Performed By: #### C DP, HCG, ALCB, BMPX, LIPR, GLYHGB #### [place] [address] Registered Nurse Behavioral Health: Dheeraj Garcia MD Monocytes (Bld) [#/Vol] 0.68 10*3/uL Normal 0.10-1.20 [facility] Comment on above: Performed By: #### C DP, HCG, ALCB, BMPX, LIPR, GLYHGB #### [address] [address] Registered Nurse Behavioral Health: Dheeraj Garcia MD Monocytes/100 WBC (Bld) 7 % Normal 3-12 [facility] Comment on above: Performed By: #### C DP, HCG, ALCB, BMPX, LIPR, GLYHGB #### [address] [address] Registered Nurse Behavioral Health: Dheeraj Garcia MD Neutrophil (Seg) 65 % Normal 36-65 [facility] Comment on above: Performed By: #### C DP, HCG, ALCB, BMPX, LIPR, GLYHGB #### [place] [address] Registered Nurse Behavioral Health: Dheeraj Garcia MD NRBC Automated 0.0 per 100 WBC Normal 0.0 [facility] Comment on above: Performed By: #### C DP, HCG, ALCB, BMPX, LIPR, GLYHGB #### [address] [address] Registered Nurse Behavioral Health: Dheeraj Garcia MD Platelet mean volume (Bld) [Entitic vol] 10.6 fL Normal 8.1-13.5 [facility] Comment on above: Performed By: #### C DP, HCG, ALCB, BMPX, LIPR, GLYHGB #### [address] [address] Registered Nurse Behavioral Health: Dheeraj Garcia MD Platelets (Bld) [#/Vol] 251 10*3/uL Normal 138-453 [facility] Comment on above: Performed By: #### C DP, HCG, ALCB, BMPX, LIPR, GLYHGB #### [address] [address] Registered Nurse Behavioral Health: Dheeraj Garcia MD RBC (Bld) [#/Vol] 4.52 10*6/uL Normal 3.95-5.11 [facility] Comment on above: Performed By: #### C DP, HCG, ALCB, BMPX, LIPR, GLYHGB #### [address] [address] Registered Nurse Behavioral Health: Dheeraj Garcia MD WBC (Bld) [#/Vol] 9.4 10*3/uL Normal 3.5-11.3 [facility] Comment on above: Performed By: #### C DP, HCG, ALCB, BMPX, LIPR, GLYHGB #### [address] [address] Registered Nurse Behavioral Health: Dheeraj Garcia MD Auto Diff Performed NOT REPORTED Normal [facility] Comment on above: Performed By: #### C DP, HCG, ALCB, BMPX, LIPR, GLYHGB #### [facility] [address] [place] [address] Registered Nurse Behavioral Health: Dheeraj Garcia MD Platelets (Bld) [#/Vol] NOT REPORTED Normal [facility] Comment on above: Performed By: #### C DP, HCG, ALCB, BMPX, LIPR, GLYHGB #### [facility] [address] [place] [address] Registered Nurse Behavioral Health: Dheeraj Garcia MD RBC morphology finding Nom (Bld) NOT REPORTED Normal [facility] Comment on above: Performed By: #### C DP, HCG, ALCB, BMPX, LIPR, GLYHGB #### [facility] [address] [place] [address] Registered Nurse Behavioral Health: Dheeraj Garcia MD WBC Morphology NOT REPORTED Normal [facility] Comment on above: Performed By: #### C DP, HCG, ALCB, BMPX, LIPR, GLYHGB #### [facility] [address] [place] [address] Registered Nurse Behavioral Health: Dheeraj Garcia MD Echo Completeon 09-01-2020 [facility] Incoming Cardio Results From [facility]/ - 09/01/2020 3:37 PM EDT Transthoracic Echocardiography Report (TTE) Patient Name DENDINGER Date of Study 09/01/2020 YEYO Date of 1955 Gender Female Age 64 year(s) Race Room Number 0234 Height: 65 inch, 165.1 cm Corporate ID [id number] Weight: 232 pounds, 105.2 kg # Patient Acct [id number] BSA: 2.11 m^2 BMI: 38.61 # kg/m^2 MR # [id number] Supervisory Aide GarfieldRimmaPérez Interpreting Physician Abundio Aguilar Fellow Referring Nurse Practitioner Interpreting Referring Physician Moisés Rodríguez Fellow Type of Study TTE procedure:2D Echocardiogram, M-Mode, Doppler, Color Doppler, Bubble Study. Procedure Date Date: 09/01/2020 Start: 07:38 AM Study Location: [facility] Technical Quality: Fair visualization Comments:Syncope, R/o CVA [...] Wall E' velocity:0.07 m/s Lateral Wall E/E':8.8 [facility] [place] Transthoracic Echocardiography Report (TTE) Patient Name MARGARITA Date of Study 09/01/2020 YEYO Date of 1955 Gender Female Age 64 year(s) Race Room Number 0234 Height: 65 inch, 165.1 cm Corporate ID [id number] Weight: 232 pounds, 105.2 kg # Patient Acct [id number] BSA: 2.11 m^2 BMI: 38.61 # kg/m^2 MR # [id number] Supervisory Aide Pérez Lao Interpreting Physician Abundio Aguilar Fellow Referring Nurse Practitioner Interpreting Referring Physician Moisés Rodríguez Fellow Type of Study TTE procedure:2D Echocardiogram, M-Mode, Doppler, Color Doppler, Bubble Study. Procedure Date Date: 09/01/2020 Start: 07:38 AM Study Location: [facility] Technical Quality: Fair visualization Comments:Syncope, R/o CVA [...] Wall E' velocity:0.07 m/s Lateral Wall E/E':8.8 [place] Ethanolon 09-01-2020 Ethanol [Mass/Vol] mg/dL <10 mg/dL [place] Ethanol percent <0.010 <0.010 % [place] Ethanol Alcoholon 09-01-2020 Ethanol [Mass/Vol] mg/dL Normal <10 [facility] Comment on above: Performed By: #### E RTPF #### [facility] [address] [place] [address] Registered Nurse Behavioral Health: Dheeraj Garcia MD Ethanol percent <0.010 Normal <0.010 [facility] Comment on above: Performed By: #### E RTPF #### [facility] [address] [place], [place] [id number] Registered Nurse Behavioral Health: Dheeraj Garcia MD HCG Qualitative, Serumon hCG Qual Negative NEGATIVE [place] Comment on above: Specimens with hCG l evels near the threshold of the test (25 mIU/mL) may give a negative or indeterminate result. In such cases, another test should be performed with a new specimen in 48-72 hours. If early is suspected clinically in this setting, correlation with quantitative serum b-hCG level is suggested. [facility] has confirmed the use of plasma for this test. This has not been cleared or approved by the U.S. Food and Drug Administration. The FDA has determined that such clearance is not necessary. HCG Screen, Bloodon 09-01-20 20 HCG Qn Negative Normal NEG [facility] Comment on above: Result Comment: Spec imens with hCG levels near the threshold of the test (25 mIU/mL) may give a negative or indeterminate result. In such cases, another test should be performed with a new specimen in 48-72 hours. If early is suspected clinically in this setting, correlation with quantitative serum b-hCG level is suggested. [facility] has confirmed the use of plasma for this test. This has not been cleared or approved by the U.S. Food and Drug Administration. The FDA has determined that such clearance is not necessary. Performed By: #### E RTPF #### [facility] [address] [place], [place] [id number] Registered Nurse Behavioral Health: Dheeraj Garcia MD Hematologyon 09-01-2020 WBC (Bld) [#/Vol] DUPLICATE ORDER per 100 WBC [place] Hemoglobin A1Con 09-01-2020 HbA1c (Bld) [Mass fraction] 151 mg/dL Normal [facility] Comment on above: Result Comment: The ADA and AACC recommend providing the estimated average glucose result to permit better patient understanding of their HBA1c result. Performed By: #### E RTPF #### [facility] [address] [place], [place] [id number] Registered Nurse Behavioral Health: Dheeraj Garcia MD HbA1c (Bld) [Mass fraction] 6.9 % High 4.0-6.0 [facility] Comment on above: Performed By: #### E RTPF #### [address] [address] Registered Nurse Behavioral Health: Dheeraj Garcia MD Hemoglobin A1con 09-01-2020 Glucose [Mass/Vol] 151 mg/dL [place] Comment on above: The ADA and AACC rec ommend providing the estimated average glucose result to permit better patient understanding of their HBA1c result. HbA1c (Bld) [Mass fraction] 6.9 % High 4 - 6 % [place] Interpretation and review of laboratory results Abnormal [place] Lipid Profileon 09-01-2020 Cholesterol [Mass/Vol] 123 mg/dL Normal <200 [facility] Comment on above: Result Comment: Cholesterol Guidelines: <200 Desirable 200-240 Borderline >240 Undesirable Performed By: #### E RTPF #### [address] [address] Registered Nurse Behavioral Health: Dheeraj Garcia MD Cholesterol in HDL [Mass/Vol] 43 mg/dL Normal >40 [facility] Comment on above: Result Comment: HDL Guidelines: <40 Undesirable 40-59 Borderline >59 Desirable Performed By: #### E RTPF #### [address] [address] Registered Nurse Behavioral Health: Dheeraj Garcia MD Cholesterol in LDL [Mass/Vol] 50 mg/dL Normal 0-130 [facility] Comment on above: Result Comment: LDL Guidelines: <100 Desirable 100-129 Near to/above Desirable 130-159 Borderline >159 Undesirable Direct (measured) LDL and calculated LDL are not interchangeable tests. Performed By: #### E RTPF #### [address] [address] Registered Nurse Behavioral Health: Dheeraj Garcia MD Cholesterol.total/Chol esterol in HDL [Mass ratio] 2.9 {ratio} Normal <5 [facility] Comment on above: Performed By: #### E RTPF #### [facility] [address] [place] [address] Registered Nurse Behavioral Health: Dheeraj Garcia MD Triglyceride [Mass/Vol] 149 mg/dL Normal <150 [facility] Comment on above: Result Comment: Triglyceride Guidelines: <150 Desirable 150-199 Borderline 200-499 High >499 Very high Based on AHA Guidelines for fasting triglyceride, August 2012. Performed By: #### E RTPF #### [facility] [address] [place] [address] Registered Nurse Behavioral Health: Dheeraj Garcia MD Cholesterol in VLDL [Mass/Vol] NOT REPORTED Normal -30 [facility] Comment on above: Performed By: #### E RTPF #### [facility] [address] [place] [address] Registered Nurse Behavioral Health: Dheeraj Garcia MD Lipid panel - fastingon 08-17 Cholesterol [Mass/Vol] 123 mg/dL <200 [place] Comment on above: Cholesterol Guidelines: <200 Desirable 200-240 Borderline >240 Undesirable Cholesterol in HDL [Mass/Vol] 43 mg/dL >40 [place] Comment on above: HDL Guidelines: <40 Undesirable 40-59 Borderline >59 Desirable Cholesterol in LDL [Mass/Vol] 50 mg/dL 0 - 130 mg/dL [place] Comment on above: LDL Guidelines: <100 Desirable 100-129 Near to/above Desirable 130-159 Borderline >159 Undesirable Direct (measured) LDL and calculated LDL are not interchangeable tests. Cholesterol in VLDL [Mass/Vol] NOT REPORTED 1 - 30 mg/dL [place] Cholesterol.total/Chol esterol in HDL [Mass ratio] 2.9 {ratio} <5 [place] Triglyceride [Mass/Vol] 149 mg/dL <150 [place] Comment on above: Triglyceride Guidelines: <150 Desirable 150-199 Borderline 200-499 High >499 Very high Based on AHA Guidelines for fasting triglyceride, August 2012. Metabolic Panelon 09-01-2020 GFR/1.73 sq M predicted among non-blacks MDRD (S/P/Bld) [Vol rate/Area] DUPLICATE ORDER [place] TRAUMA PANELon 09-01-2020 Hubert Test NOT REPORTED [place] Anion gap [Moles/Vol] DUPLICATE ORDER mmol/L [place] aPTT Coag (Bld) [Time] 27.5 s [place] Comment on above: IV Heparin Therapy Range: 48.6-77.8 aPTT Coag (Bld) [Time] 37.0 s [place] Blood Bank Specimen BILL FOR SERVICES PERFORMED [place] Carboxyhemoglobin 0.6 % 0 - 5 % [place] Comment on above: Reference Range: Non-Smokers 0-2% Average Smoker 2-4% Heavy Smoker <10% Chloride [Moles/Vol] DUPLICATE ORDER mmol/L [place] CO2 [Moles/Vol] DUPLICATE ORDER mmol/L [place] Creatinine [Mass/Vol] DUPLICATE ORDER mg/dL [place] Erythrocyte distribution width (RBC) [Ratio] DUPLICATE ORDER % [place] Ethanol [Mass/Vol] Order moved to nearest draw time. [id number] mg/dL [place] Ethanol percent Order moved to nearest draw time. [id number] % [place] FIO2 UNKNOWN [place] GFR DUPLICATE ORDER >60 mL/min [place] GFR Non- DUPLICATE ORDER >60 mL/min [place] Glucose [Mass/Vol] DUPLICATE ORDER mg/dL [place] hCG Qual Order moved to nearest draw time. [id number] NEGATIVE [place] HCO3, Venous 27.6 mmol/L 24 - 30 mmol/L [place] Hematocrit (Bld) [Volume fraction] DUPLICATE ORDER % [place] Hemoglobin (Bld) [Mass/Vol] DUPLICATE ORDER g/dL [place] INR Coag (PPP) [Relative time] 1.0 {INR} [place] Comment on above: Therapeutic Range: Moderate Anticoagulant Intensity: INR = 2.0-3.0 High Anticoagulant Intensity: INR = 2.5-3.5 Interpretation and review of laboratory results Abnormal [place] MCH (RBC) [Entitic mass] DUPLICATE ORDER pg [place] MCHC (RBC) [Mass/Vol] DUPLICATE ORDER g/dL [place] MCV (RBC) [Entitic vol] DUPLICATE ORDER fL [place] Methemoglobin NOT REPORTED 0 - 1.5 % [place] Mode NOT REPORTED [place] Negative Base Excess, Christo NOT REPORTED 0 - 2 mmol/L [place] NOTIFICATION NOT REPORTED [place] NOTIFICATION TIME NOT REPORTED [place] O2 Device/Flow/% NOT REPORTED [place] Oxygen saturation in Blood 43.1 % Low 60 - 85 % [place] Oxyhemoglobin NOT REPORTED 95 - 98 % [place] pCO2, Christo 48.8 [place] pCO2, Christo, Temp Adj NOT REPORTED [place], [place] Peep/Cpap NOT REPORTED [place] pH, Christo 7.371 [place] pH, Christo, Temp Adj NOT REPORTED [place] Platelet mean volume (Bld) [Entitic vol] DUPLICATE ORDER fL [place] Platelets (Bld) [#/Vol] DUPLICATE ORDER k/uL [place] pO2, Christo 23.6 Low [place] pO2, Christo, Temp Adj NOT REPORTED [place] Positive Base Excess, Christo 2.1 mmol/L High 0 - 2 mmol/L [place] Potassium [Moles/Vol] DUPLICATE ORDER mmol/L [place] PSV NOT REPORTED [place] PT Coag (PPP) [Time] 10.4 s [place] Pt. Position NOT REPORTED [place] RBC (Bld) [#/Vol] DUPLICATE ORDER m/uL Me [place] Sample Site NOT REPORTED [facility] [place] Set Rate NOT REPORTED [place] Sodium [Moles/Vol] DUPLICATE ORDER mmol/L [place], [place] Text for Respiratory NOT REPORTED [place] Total Hb NOT REPORTED 12 - 16 g/dl [place] Total Rate NOT REPORTED [place] Urea nitrogen [Mass/Vol] DUPLICATE ORDER mg/dL [place] NOT REPORTED [place] Trauma Profileon 09-01-2020 aPTT Coag (Bld) [Time] 27.5 s Normal 20.5-30.5 [facility] Comment on above: Result Comment: IV Heparin Therapy Range: 48.6-77.8 Performed By: #### E RTPF #### [place] [address] Registered Nurse Behavioral Health: Dheeraj Garcia MD INR Coag (PPP) [Relative time] 1.0 {INR} Normal [facility] Comment on above: Result Comment: Therapeutic Range: Moderate Anticoagulant Intensity: INR = 2.0-3.0 High Anticoagulant Intensity: INR = 2.5-3.5 Performed By: #### E RTPF #### [place] [address] Registered Nurse Behavioral Health: Dheeraj Garcia MD PT Coag (PPP) [Time] 10.4 s Normal 9.0-12.0 [facility] Comment on above: Performed By: #### E RTPF #### [place] [address] Registered Nurse Behavioral Health: Dheeraj Garcia MD Body Temp. 37.0 Normal [facility] Comment on above: Performed By: #### E RTPF #### [place] [address] Registered Nurse Behavioral Health: Dheeraj Garcia MD Carboxy Hgb 0.6 % Normal 0-5 [facility] Comment on above: Result Comment: Reference Range: Non-Smokers 0-2% Average Smoker 2-4% Heavy Smoker <10% Performed By: #### E RTPF #### [address] [address] Registered Nurse Behavioral Health: Dheeraj Garcia MD FIO2 UNKNOWN Normal [facility] Comment on above: Performed By: #### E RTPF #### [address] [address] Registered Nurse Behavioral Health: Dheeraj Garcia MD HCO3 (Bld) [Moles/Vol] 27.6 mmol/L Normal 24-30 [facility] Comment on above: Performed By: #### E RTPF #### [address] [address] Registered Nurse Behavioral Health: Dheeraj Garcia MD Oxygen (Bld) [Partial pressure] 23.6 mm[Hg] Low 30-50 [facility] Comment on above: Performed By: #### E RTPF #### [address] [address] Registered Nurse Behavioral Health: Dheeraj Garcia MD Oxygen saturation in Blood 43.1 % Low 60.0-85.0 [facility] Comment on above: Performed By: #### E RTPF #### [address] [address] Registered Nurse Behavioral Health: Dheeraj Garcia MD pCO2 48.8 Normal 39-55 [facility] Comment on above: Performed By: #### E RTPF #### [address] [address] Registered Nurse Behavioral Health: Dheeraj Garcia MD pH (Bld) 7.371 [pH] Normal 7.320-7.420 [facility] Comment on above: Performed By: #### E RTPF #### [address] [address] Registered Nurse Behavioral Health: Dheeraj Garcia MD Positive Base Excess 2.1 mmol/L High 0.0-2.0 [facility] Comment on above: Performed By: #### E RTPF #### [address] [address] Registered Nurse Behavioral Health: Dheeraj Garcia MD Hubert Test NOT REPORTED Normal [facility] Comment on above: Performed By: #### E RTPF #### [address] [address] Registered Nurse Behavioral Health: Dheeraj Garcia MD Methemoglobin NOT REPORTED Normal 0.0-1.5 [facility] Comment on above: Performed By: #### E RTPF #### [address] [address] Registered Nurse Behavioral Health: Dheeraj Garcia MD Mode NOT REPORTED Normal [facility] Comment on above: Performed By: #### E RTPF #### [address] [address] Registered Nurse Behavioral Health: Dheeraj Garcia MD Negative Base Excess NOT REPORTED Normal 0.0-2.0 [facility] Comment on above: Performed By: #### E RTPF #### [address] [address] Registered Nurse Behavioral Health: Dheeraj Garcia MD Notification Time NOT REPORTED Normal [facility] Comment on above: Performed By: #### E RTPF #### [facility] [address] [place] [address] Registered Nurse Behavioral Health: Dheeraj Garcia MD Notification: NOT REPORTED Normal [facility] Comment on above: Performed By: #### E RTPF #### [facility] [address] [place] [address] Registered Nurse Behavioral Health: Dheeraj Garcia MD O2 Device/Flow/% NOT REPORTED Normal [facility] Comment on above: Performed By: #### E RTPF #### [facility] [address] [place] [address] Registered Nurse Behavioral Health: Dheeraj Garcia MD Oxyhemoglobin NOT REPORTED Normal 95.0-98.0 [facility] Comment on above: Performed By: #### E RTPF #### [address] [address] Registered Nurse Behavioral Health: Dheeraj Garcia MD Pco2 Adj'd for Temp. NOT REPORTED Normal 39-55 [facility] Comment on above: Performed By: #### E RTPF #### [address] [address] Registered Nurse Behavioral Health: Dheeraj Garcia MD PEEP/CPAP NOT REPORTED Normal [facility] Comment on above: Performed By: #### E RTPF #### [address] [address] Registered Nurse Behavioral Health: Dheeraj Garcia MD pH Adjst'd for Temp. NOT REPORTED Normal 7.320-7.420 [facility] Comment on above: Performed By: #### E RTPF #### [address] [address] Registered Nurse Behavioral Health: Dheeraj Garcia MD pO2 Adj'd for Temp. NOT REPORTED Normal 30-50 [facility] Comment on above: Performed By: #### E RTPF #### [address] [address] Registered Nurse Behavioral Health: Dheeraj Garcia MD PSV NOT REPORTED Normal [facility] Comment on above: Performed By: #### E RTPF #### [address] [address] Registered Nurse Behavioral Health: Dheeraj Garcia MD Pt. Position NOT REPORTED Normal [facility] Comment on above: Performed By: #### E RTPF #### [address] [address] Registered Nurse Behavioral Health: Dheeraj Garcia MD Set Rate NOT REPORTED Normal [facility] Comment on above: Performed By: #### E RTPF #### [address] [address] Registered Nurse Behavioral Health: Dheeraj Garcia MD Site Drawn NOT REPORTED Normal [facility] Comment on above: Performed By: #### E RTPF #### [address] [address] Registered Nurse Behavioral Health: Dheeraj Garcia MD Text for Respiratory NOT REPORTED Normal [facility] Comment on above: Performed By: #### E RTPF #### [address] [address] Registered Nurse Behavioral Health: Dheeraj Garcia MD Total Hb NOT REPORTED Normal 12.0-16.0 [facility] Comment on above: Performed By: #### E RTPF #### [address] [address] Registered Nurse Behavioral Health: Dheeraj Garcia MD Total Rate NOT REPORTED Normal [facility] Comment on above: Performed By: #### E RTPF #### [address] [address] Registered Nurse Behavioral Health: Dheeraj Garcia MD [place] NOT REPORTED Normal [facility] Comment on above: Performed By: #### E RTPF #### [address] [address] Registered Nurse Behavioral Health: Dheeraj Garcia MD Blood Bank BILL FOR SERVICES PERFORMED Normal [facility] Comment on above: Performed By: #### E RTPF #### [address] [address] Registered Nurse Behavioral Health: Dheeraj Garcia MD CT CERVICAL SPINE WO [...] Krishna Martell DO 08/30/20 Final result Normal [facility] CT CHEST ABDOMEN PELVIS W CO NTRASTon [...] Brenda Sheldon MD 08/30/20 Final result Normal [facility] CT LUMBAR SPINE TRAUMA RECON STRUCTIONon 08-31-2020 [...] Krishna Martell DO 08/30/20 Final result Normal [facility] CT THORACIC SPINE TRAUMA REC ONSTRUCTIONon 08-31-2020 [...] Krishna Martell DO 08/30/20 Final result Normal [facility] CTA HEAD NECK W CONTRASTon 1 CTA HEAD NECK W CONTRAST EXAMINATION: CTA [...] Dom Zhong MD 08/30/20 Final result Normal [facility] MRI LIMITED BRAINon 08-31-20 MRI LIMITED BRAIN EXAMINATION: MRI OF THE [...] Hector Cooper MD 08/31/20 Final result Normal [facility] [place], [place] Incoming Radiant Results From [employer] - 08/31/2020 11:56 AM EDT EXAMINATION: MRI [...] chronic microvascular disease without acute intracranial abnormality. [place] Minimal chronic microvascular disease without acute intracranial abnormality. [place] EXAMINATION: MRI OF THE BRAIN WITHOUT [...] The soft tissues demonstrate no acute abnormality[facility] Tra[facility] Profileon 08-31-2020 Erythrocyte distribution width (RBC) [Ratio] 14.1 % Normal 11.8-14.4 [facility] Comment on above: Performed By: #### E RTPF #### [facility] resmio [address] [place] [address] Registered Nurse Behavioral Health: Dheeraj Garcia MD Hematocrit (Bld) [Volume fraction] 38.2 % Normal 36.3-47.1 [facility] Comment on above: Performed By: #### E RTPF #### [address] [address] Registered Nurse Behavioral Health: Dheeraj Garcia MD Hemoglobin (Bld) [Mass/Vol] 12.3 g/dL Normal 11.9-15.1 [facility] Comment on above: Performed By: #### E RTPF #### [address] [address] Registered Nurse Behavioral Health: Dheeraj Garcia MD MCH (RBC) [Entitic mass] 28.9 pg Normal 25.2-33.5 [facility] Comment on above: Performed By: #### E RTPF #### [address] [address] Registered Nurse Behavioral Health: Dheeraj Garcia MD MCHC (RBC) [Mass/Vol] 32.2 g/dL Normal 28.4-34.8 [facility] Comment on above: Performed By: #### E RTPF #### [address] [address] Registered Nurse Behavioral Health: Dheeraj Garcia MD MCV (RBC) [Entitic vol] 89.7 fL Normal 82.6-102.9 [facility] Comment on above: Performed By: #### E RTPF #### [address] [address] Registered Nurse Behavioral Health: Dheeraj Garcia MD NRBC Automated 0.0 per 100 WBC Normal 0.0 [facility] Comment on above: Performed By: #### E RTPF #### [address] [address] Registered Nurse Behavioral Health: Dheeraj Garcia MD Platelet mean volume (Bld) [Entitic vol] 10.6 fL Normal 8.1-13.5 [facility] Comment on above: Performed By: #### E RTPF #### [address] [place] [address] Registered Nurse Behavioral Health: Dheeraj Garcia MD Platelets (Bld) [#/Vol] 268 10*3/uL Normal 138-453 [facility] Comment on above: Performed By: #### E RTPF #### [address] [address] Registered Nurse Behavioral Health: Dheeraj Garcia MD RBC (Bld) [#/Vol] 4.26 10*6/uL Normal 3.95-5.11 [facility] Comment on above: Performed By: #### E RTPF #### [address] [address] Registered Nurse Behavioral Health: Dheeraj Garcia MD WBC (Bld) [#/Vol] 8.7 10*3/uL Normal 3.5-11.3 [facility] Comment on above: Performed By: #### E RTPF #### [address] [address] Registered Nurse Behavioral Health: Dheeraj Garcia MD (cont.) Normal [facility] Comment on above: Result Comment: Aver age GFR for 60-69 years old: 85 mL/min/1.73sq m Chronic Kidney Disease: <60 mL/min/1.73sq m Kidney failure: <15 mL/min/1.73sq m eGFR calculated using average adult body mass. Additional eGFR calculator available at: http://www.Your [employer].com/multiple_crcl_2012.htm Performed By: #### E RTPF #### [address] [address] Registered Nurse Behavioral Health: Dheeraj Garcia MD Anion gap [Moles/Vol] 10 mmol/L Normal 9-17 [facility] Comment on above: Performed By: #### E RTPF #### [facility] resm[facility] [address] [place] [address] Registered Nurse Behavioral Health: Dheeraj Garcia MD Chloride [Moles/Vol] 106 mmol/L Normal 98-107 [facility] Comment on above: Performed By: #### E RTPF #### [address] [address] Registered Nurse Behavioral Health: Dheeraj Garcia MD CO2 [Moles/Vol] 23 mmol/L Normal 20-31 [facility] Comment on above: Performed By: #### E RTPF #### [address] [address] Registered Nurse Behavioral Health: Dheeraj Garcia MD Creatinine [Mass/Vol] 0.62 mg/dL Normal 0.50-0.90 [facility] Comment on above: Performed By: #### E RTPF #### [address] [address] Registered Nurse Behavioral Health: Dheeraj Garcia MD Ethanol [Mass/Vol] mg/dL Normal <10 [facility] Comment on above: Performed By: #### E RTPF #### [address] [address] Registered Nurse Behavioral Health: Dheeraj Garcia MD Ethanol percent <0.010 Normal <0.010 [facility] Comment on above: Performed By: #### E RTPF #### [facility] [address] [place] [address] Registered Nurse Behavioral Health: Dheeraj Garcia MD GFR, Amer >60 Normal >60 [facility] Comment on above: Performed By: #### E RTPF #### [address] [address] Registered Nurse Behavioral Health: Dheeraj Garcia MD GFR,non Amer >60 Normal >60 [facility] Comment on above: Performed By: #### E RTPF #### [address] [address] Registered Nurse Behavioral Health: Dheeraj Garcia MD Glucose [Mass/Vol] 186 mg/dL High 70-99 [facility] Comment on above: Performed By: #### E RTPF #### [address] [address] Registered Nurse Behavioral Health: Dheeraj Garcia MD Potassium [Moles/Vol] 3.5 mmol/L Low 3.7-5.3 [facility] Comment on above: Performed By: #### E RTPF #### [address] [address] Registered Nurse Behavioral Health: Dheeraj Garcia MD Sodium [Moles/Vol] 139 mmol/L Normal 135-144 [facility] Comment on above: Performed By: #### E RTPF #### [address] [address] Registered Nurse Behavioral Health: Dheeraj Garcia MD Urea nitrogen [Mass/Vol] 11 mg/dL Normal 8-23 [facility] Comment on above: Performed By: #### E RTPF #### [address] [address] Registered Nurse Behavioral Health: Dheeraj Garcia MD aPTT Coag (Bld) [Time] 24.4 s Normal 20.5-30.5 [facility] Comment on above: Result Comment: IV Heparin Therapy Range: 48.6-77.8 Performed By: #### E RTPF #### [address] [address] Registered Nurse Behavioral Health: Dheeraj Garcia MD INR Coag (PPP) [Relative time] 1.0 {INR} Normal [facility] Comment on above: Result Comment: Therapeutic Range: Moderate Anticoagulant Intensity: INR = 2.0-3.0 High Anticoagulant Intensity: INR = 2.5-3.5 Performed By: #### E RTPF #### [address] [address] Registered Nurse Behavioral Health: Dheeraj Garcia MD PT Coag (PPP) [Time] 10.5 s Normal 9.0-12.0 [facility] Comment on above: Performed By: #### E RTPF #### [address] [address] Registered Nurse Behavioral Health: Dheeraj Garcia MD Body Temp. 37.0 Normal [facility] Comment on above: Performed By: #### E RTPF #### [address] [address] Registered Nurse Behavioral Health: Dheeraj Garcia MD Carboxy Hgb 2.2 % Normal 0-5 [facility] Comment on above: Result Comment: Reference Range: Non-Smokers 0-2% Average Smoker 2-4% Heavy Smoker <10% Performed By: #### E RTPF #### [address] [address] Registered Nurse Behavioral Health: Dheeraj Garcia MD FIO2 INFORMATION NOT PROVIDED [facility] Comment on above: Performed By: #### E RTPF #### [address] [address] Registered Nurse Behavioral Health: Dheeraj Garcia MD HCO3 (Bld) [Moles/Vol] 23.6 mmol/L Low 24-30 [facility] Comment on above: Performed By: #### E RTPF #### [address] [address] Registered Nurse Behavioral Health: Dheeraj Garcia MD Negative Base Excess 0.8 mmol/L Normal 0.0-2.0 [facility] Comment on above: Performed By: #### E RTPF #### [address] [address] Registered Nurse Behavioral Health: Dheeraj Garcia MD Oxygen (Bld) [Partial pressure] 143.0 mm[Hg] High 30-50 [facility] Comment on above: Performed By: #### E RTPF #### [address] [address] Registered Nurse Behavioral Health: Dheeraj Garcia MD Oxygen saturation in Blood 98.6 % High 60.0-85.0 [facility] Comment on above: Performed By: #### E RTPF #### [address] [address] Registered Nurse Behavioral Health: Dheeraj Garcia MD pCO2 40.6 Normal 39-55 [facility] Comment on above: Performed By: #### E RTPF #### [address] [address] Registered Nurse Behavioral Health: Dheeraj Garcia MD pH (Bld) 7.383 [pH] Normal 7.320-7.420 [facility] Comment on above: Performed By: #### E RTPF #### [address] [address] Registered Nurse Behavioral Health: Dheeraj Garcia MD Blood Bank BILL FOR SERVICES PERFORMED Normal [facility] Comment on above: Performed By: #### E RTPF #### [address] [address] Registered Nurse Behavioral Health: Dheeraj Garcia MD Hubert Test NOT REPORTED Normal [facility] Comment on above: Performed By: #### E RTPF #### [address] [address] Registered Nurse Behavioral Health: Dheeraj Garcia MD Methemoglobin NOT REPORTED Normal 0.0-1.5 [facility] Comment on above: Performed By: #### E RTPF #### [address] [address] Registered Nurse Behavioral Health: Dheeraj Garcia MD Mode NOT REPORTED Normal [facility] Comment on above: Performed By: #### E RTPF #### [address] [address] Registered Nurse Behavioral Health: Dheeraj Garcia MD Notification Time NOT REPORTED Normal [facility] Comment on above: Performed By: #### E RTPF #### [address] [address] Registered Nurse Behavioral Health: Dheeraj Garcia MD Notification: NOT REPORTED Normal [facility] Comment on above: Performed By: #### E RTPF #### [address] [address] Registered Nurse Behavioral Health: Dheeraj Garcia MD O2 Device/Flow/% NOT REPORTED Normal [facility] Comment on above: Performed By: #### E RTPF #### [address] [address] Registered Nurse Behavioral Health: Dheeraj Garcia MD Oxyhemoglobin NOT REPORTED Normal 95.0-98.0 [facility] Comment on above: Performed By: #### E RTPF #### [address] [address] Registered Nurse Behavioral Health: Dheeraj Garcia MD Pco2 Adj'd for Temp. NOT REPORTED Normal 39-55 [facility] Comment on above: Performed By: #### E RTPF #### [address] [address] Registered Nurse Behavioral Health: Dheeraj Garcia MD PEEP/CPAP NOT REPORTED Normal [facility] Comment on above: Performed By: #### E RTPF #### [address] [address] Registered Nurse Behavioral Health: Dheeraj Garcia MD pH Adjst'd for Temp. NOT REPORTED Normal 7.320-7.420 [facility] Comment on above: Performed By: #### E RTPF #### [address] [address] Registered Nurse Behavioral Health: Dheeraj Garcia MD pO2 Adj'd for Temp. NOT REPORTED Normal 30-[address] [facility] Comment on above: Performed By: #### E RTPF #### [address] [address] Registered Nurse Behavioral Health: Dheeraj Garcia MD Positive Base Excess NOT REPORTED Normal 0.0-2.0 [facility] Comment on above: Performed By: #### E RTPF #### [address] [address] Registered Nurse Behavioral Health: Dheeraj Garcia MD PSV NOT REPORTED Normal [facility] Comment on above: Performed By: #### E RTPF #### [address] [address] Registered Nurse Behavioral Health: Dheeraj Garcia MD Pt. Position NOT REPORTED Normal [facility] Comment on above: Performed By: #### E RTPF #### [address] [address] Registered Nurse Behavioral Health: Dheeraj Garcia MD Set Rate NOT REPORTED Normal [facility] Comment on above: Performed By: #### E RTPF #### [address] [address] Registered Nurse Behavioral Health: Dheeraj Garcia MD Site Drawn NOT REPORTED Normal [facility] Comment on above: Performed By: #### E RTPF #### [address] [address] Registered Nurse Behavioral Health: Dheerja Garcia MD Staging: NOT REPORTED Normal [facility] Comment on above: Performed By: #### E RTPF #### [facility] resmio [address] [place] [address] Registered Nurse Behavioral Health: Dheeraj Garcia MD Text for Respiratory NOT REPORTED Normal [facility] Comment on above: Performed By: #### E RTPF #### [address] [address] Registered Nurse Behavioral Health: Dheeraj Garcia MD Total Hb NOT REPORTED Normal 12.0-16.0 [facility] Comment on above: Performed By: #### E RTPF #### [address] [address] Registered Nurse Behavioral Health: Dheeraj Garcia MD Total Rate NOT REPORTED Normal [facility] Comment on above: Performed By: #### E RTPF #### [address] [address] Registered Nurse Behavioral Health: Dheeraj Garcia MD [place] NOT REPORTED Normal [facility] Comment on above: Performed By: #### E RTPF #### [address] [address] Registered Nurse Behavioral Health: Dheeraj Garcia MD Type + Screenon 08-31-2020 Type + Screen Sample Expiration 09/02/2020,2359 Arm Band Number BE [id number] ABO/Rh(D) O POSITIVE Antibody Screen NEGATIVE Normal [facility] Comment on above: Performed By: #### T YS #### [address] [address] Registered Nurse Behavioral Health: Dheeraj Garcia MD XR SHOULDER LEFT (MIN [...] Delmis Adams MD 08/31/20 Final result Normal [facility] EXAMINATION: TWO XRAY VIEWS OF THE LEFT SHOULDER 08/31/2020 8:25 am COMPARISON: None. HISTORY: ORDERING SYSTEM PROVIDED HISTORY: trauma TECHNOLOGIST PROVIDED HISTORY: trauma Reason for Exam: trauma Acuity: Acute Type of Exam: Initial FINDINGS: The bones and joints are unremarkable without definite fracture, dislocation, abnormal soft tissue calcification or bony destructive lesion [facility] [place] Unremarkable three view left shoulder series [place] Incoming Radiant Results From [employer] - 08/31/2020 8:46 AM EDT EXAMINATION: TWO [...] IMPRESSION: Unremarkable three view left shoulder series [place] CT CERVICAL SPINE WO CONTRAS Ton 08-30-2020 No evidence of an acute fracture or traumatic malalignment involving the cervical spine [place], [place] EXAMINATION: CT OF THE CERVICAL SPINE [...] There is no prevertebral soft tissue swelling. [facility] [place] [place], [place] Incoming Radiant Results From [employer] - 08/30/2020 11:01 PM EDT EXAMINATION: CT [...] or traumatic malalignment involving the cervical spine [facility] [place] [facility]: CT OF THE CHEST, ABDOMEN, [...] aorta. Bones/Soft Tissues: No acute osseous abnormality. [place], [place] Incoming Radiant Results From [employer] - 08/30/2020 11:25 PM EDT EXAMINATION: CT [...] could provide further information as clinically indicated. [place], [place] 1. No acute or traumatic intrathoracic abnormality. 2. No acute or traumatic intra-abdominal abnormality. 3. Dilation of the main pulmonary artery, suggestive of pulmonary artery hypertension. 4. Hepatic steatosis. 5. 1.6 cm left upper pole renal lesion is indeterminate, possibly a cyst. Renal protocol CT or MRI could provide further information as clinically indicated. [place] LUMBAR SPINE TRAUMA RECON STRUCTIONon [...] the upper pole of the left kidney. [place], [place], [place] Incoming Radiant Results From [employer] - 08/30/2020 11:26 PM EDT EXAMINATION: CT [...] or traumatic malalignment involving the lumbar spine. [place] No evidence of an acute fracture or traumatic malalignment involving the lumbar spine. [place] THORACIC SPINE TRAUMA REC ONSTRUCTIONon [...] the lung bases. No pneumothorax is noted. [place] Incoming Radiant Results From [employer] - 08/30/2020 11:29 PM EDT EXAMINATION: CT [...] or traumatic malalignment involving the thoracic spine [place] No evidence of an acute fracture or traumatic malalignment involving the thoracic spine [place] CTA HEAD NECK W CONTRASTon 1 Unremarkable CTA of the neck. 50% stenosis left intracranial ICA, otherwise unremarkable CTA head. [place], [place] Incoming Radiant Results From [employer]/[facility] - 08/30/2020 11:48 PM EDT EXAMINATION: CTA [...] left intracranial ICA, otherwise unremarkable CTA head. [place] EXAMINATION: CTA OF THE HEAD AND [...] fluid collection. The durán-white differentiation is maintained. [place] TYPE AND SCREENon 08-30-2020 ABO/Rh Positive [place], [place] Arm Band Number BE [id number] [facility] [place] [place] Expiration Date 09/02/2020,2359 [place], [place] Trauma Panelon 08-30-2020 Hubert Test NOT REPORTED [place] Anion gap [Moles/Vol] 10 mmol/L 9 - 17 mmol/L [place] aPTT Coag (Bld) [Time] 37.0 s [place] aPTT Coag (Bld) [Time] 24.4 s [place] Comment on above: IV Heparin Therapy Range: 48.6-77.8 Blood Bank Specimen BILL FOR SERVICES PERFORMED [place] Carboxyhemoglobin 2.2 % 0 - 5 % [place] Comment on above: Reference Range: Non-Smokers 0-2% Average Smoker 2-4% Heavy Smoker <10% Chloride [Moles/Vol] 106 mmol/L 98 - 10 7 mmol/L [place] CO2 [Moles/Vol] 23 mmol/L 20 - 31 mmol/L [place] Creatinine [Mass/Vol] 0.62 mg/dL 0.5 - 0.9 mg/dL [place] Erythrocyte distribution width (RBC) [Ratio] 14.1 % 11.8 - 14.4 % [place] Ethanol [Mass/Vol] mg/dL <10 mg/dL [place] Ethanol percent <0.010 <0.010 % [place] FIO2 INFORMATION NOT PROVIDED [place] GFR >60 >60 mL/min [place] GFR Non- >60 >60 mL/min [place] GFR/1.73 sq M predicted among non-blacks MDRD (S/P/Bld) [Vol rate/Area] [place] Comment on above: Average GFR for 60-6 9 years old: 85 mL/min/1.73sq m Chronic Kidney Disease: <60 mL/min/1.73sq m Kidney failure: <15 mL/min/1.73sq m eGFR calculated using average adult body mass. Additional eGFR calculator available at: http://www.Page[employer]/multiple_crcl_2012.htm GFR/1.73 sq M predicted among non-blacks MDRD (S/P/Bld) [Vol rate/Area] NOT REPORTED [place] Glucose [Mass/Vol] 186 mg/dL High 70 - 99 mg/dL [place] hCG Qual CANCELLED PER ED NEGATIVE [place] HCO3, Venous 23.6 mmol/L Low 24 - 30 mmol/L [place] Hematocrit (Bld) [Volume fraction] 38.2 % 36.3 - 47.1 % [place] Hemoglobin (Bld) [Mass/Vol] 12.3 g/dL 11.9 - 15.1 g/dL [place] INR Coag (PPP) [Relative time] 1.0 {INR} [place] Comment on above: Therapeutic Range: Moderate Anticoagulant Intensity: INR = 2.0-3.0 High Anticoagulant Intensity: INR = 2.5-3.5 Interpretation and review of laboratory results Abnormal [place] MCH (RBC) [Entitic mass] 28.9 pg 25.2 - 33.5 pg [place] MCHC (RBC) [Mass/Vol] 32.2 g/dL 28.4 - 34.8 g/dL [place] MCV (RBC) [Entitic vol] 89.7 fL 82.6 - 102.9 fL [place] Methemoglobin NOT REPORTED 0 - 1.5 % [place] Mode NOT REPORTED [place] Negative Base Excess, Christo 0.8 mmol/L 0 - 2 mmol/L [place] NOTIFICATION NOT REPORTED [place] NOTIFICATION TIME NOT REPORTED [place] O2 Device/Flow/% NOT REPORTED [place] Oxygen saturation in Blood 98.6 % High 60 - 85 % [place] Oxyhemoglobin NOT REPORTED 95 - 98 % [place] pCO2, Christo 40.6 [place] pCO2, Christo, Temp Adj NOT REPORTED [place], [place] Peep/Cpap NOT REPORTED [place] pH, Christo 7.383 [place] pH, Christo, Temp Adj NOT REPORTED [place] Platelet mean volume (Bld) [Entitic vol] 10.6 fL 8.1 - 13.5 fL [place] Platelets (Bld) [#/Vol] 268 10*3/uL [place] pO2, Christo 143.0 High [place] pO2, Christo, Temp Adj NOT REPORTED [place], [place] Positive Base Excess, Christo NOT REPORTED 0 - 2 mmol/L [place] Potassium [Moles/Vol] 3.5 mmol/L Low 3.7 - 5.3 mmol/L [place] PSV NOT REPORTED [place] PT Coag (PPP) [Time] 10.5 s [place] Pt. Position NOT REPORTED [place] RBC (Bld) [#/Vol] 4.26 10*6/uL 3.95 - 5.1 1 m/uL [place] Sample Site NOT REPORTED [place] Set Rate NOT REPORTED [place] Sodium [Moles/Vol] 139 mmol/L 135 - 144 mmol/L [place] Text for Respiratory NOT REPORTED [place] Total Hb NOT REPORTED 12 - 16 g/dl [place], [place] Total Rate NOT REPORTED [place] Urea nitrogen [Mass/Vol] 11 mg/dL 8 - 23 mg/dL [place] VT NOT REPORTED [place] WBC (Bld) [#/Vol] 0.0 10*3/uL 0.0 per 10 0 WBC [place] WBC (Bld) [#/Vol] 8.7 10*3/uL [place] PROGRESSon 03-24-2019 Protein mass conc HNO ID: [id number] Author: Kamilah Jean) Kyle Service: ? Author Type: Physician Compliance Consultant Type: Progress Notes Filed: 03/25/2019 10:38 AM Note Text: [facility] NOTE NAME: SHEMAR AVILA NO.: [id number] DATE OF SERVICE: 03/24/2019 [facility] DATE OF : 1955 CHIEF COMPLAINT: Skilled followup visit for discharge. Also complains of a cyst on her back. SUBJECTIVE FINDINGS: The patient was seen in her room today at [facility]. She is tentatively scheduled for discharge to [...] above. MEDICATIONS: Medications were reviewed in the fdc records. OARRS report was run today and [...] DICTATED BY: Kamilah Wright PA-C PG/Niharika JOB# [id number] cc:[facility]iviana M[facility] PROGRESSon 03-22-2019 Protein mass conc HNO ID: [id number] Author: Kamilah Jean) Kyle Service: ? Author Type: Physician Compliance Consultant Type: Progress Notes Filed: 03/23/2019 11:37 AM Note Text: [facility] NOTE NAME: SHEMAR AVILA NO.: [id number] DATE OF SERVICE: 03/22/2019 [facility] DATE OF : 1955 CHIEF COMPLAINT: Skilled followup visit for stroke; today complaining of heartburn. SUBJECTIVE FINDINGS: The patient was seen in the therapy department at [facility]. She reports that overall she is feeling [...] SYSTEMS: See above. MEDICATIONS: Reviewed in the fdc record. CODE STATUS: Full code. PHYSICAL EXAM: [...] DICTATED BY: Kamilah Wright PA-C PG/Niharika JOB# [id number] cc:[facility] PROGRESSon 03-19-2019 Protein mass conc HNO ID: [id number] Author: Kamilah Wright (Pa) Service: ? Author Type: Physician Compliance Consultant Type: Progress Notes Filed: 03/22/2019 12:17 PM Note Text: [facility] NOTE NAME: SHEMAR AVILA NO.: [id number] DATE OF SERVICE: 03/19/2019 [facility] DATE OF : 1955 CHIEF COMPLAINT: Follow up for stroke and weakness. SUBJECTIVE FINDINGS: The patient was seen in her room at [facility]. She is complaining of a headache today. [...] SYSTEMS: See above. MEDICATIONS: Reviewed in the fdc record. CODE STATUS: Full code. PHYSICAL EXAM: [...] DICTATED BY: Kamilah Wright PA-C PG/Niharika JOB# [id number] cc:[facility] PROGRESSon 03-17-2019 Protein mass conc HNO ID: [id number] Author: Kamilah Wright (Pa) Service: ? Author Type: Physician Compliance Consultant Type: Progress Notes Filed: 03/18/2019 10:28 AM Note Text: [facility] NOTE NAME: SHEMAR AVILA NO.: [id number] DATE OF SERVICE: 03/17/2019 [facility] DATE OF : 1955 CHIEF COMPLAINT: Follow up for stroke and weakness. SUBJECTIVE FINDINGS: The patient was seen in the therapy department at [facility]. She is doing very well with therapy [...] SYSTEMS: See above. MEDICATIONS: Reviewed in the fdc record. CODE STATUS: Full code. PHYSICAL EXAM: [...] DICTATED BY: Kamilah Wright PA-C PG/Niharika JOB# [id number] cc:[facility]iviana M[facility] PROGRESSon 03-15-2019 Protein mass conc HNO ID: [id number] Author: Kyra Butler Service: ? Author Type: Physician Type: Progress Notes Filed: 03/18/2019 5:07 PM Note Text: [facility] NOTE NAME: YEYO AVILA COLEEN NO.: [id number] DATE OF SERVICE: 03/15/2019 Viviana Mota DATE OF : 1955 New Patient History and Physical HISTORY OF PRESENT ILLNESS: The patient is a 63-year-old female was admitted to us from [facility] in [place] with the diagnoses of complicated headache syndrome and major depressive disorder with stroke-like symptoms, chronic migraines, diabetes mellitus type 2, hypertension, GERD, history of depression and anxiety, previous ascending aortic aneurysm repair in 2011, anxiety disorder, surgically treated bladder cancer, COPD [...] was negative. She was then transferred to [facility] where repeat CT scan along with MRI [...] therapy. DICTATED BY: MD NELIDA Larose/Niharika JOB# [id number] cc:[facility] Vital Signs Date Time Vital Sign Value Performing Clinician Facility 07-13-2023 11:32-0400 Body temperature 97.88 [degF] [facility] 07-13-2023 11:32-0400 Diastolic blood pressure 85 mm[Hg] [facility] 07-13-2023 11:32-0400 Heart rate 76 /min [facility] 07-13-2023 11:32-0400 Respiratory rate 18 /min [facility] 07-13-2023 11:32-0400 SaO2% (BldA) [Mass fraction] 97 % [facility] 07-13-2023 11:32-0400 Systolic blood pressure 147 mm[Hg] [facility] 02-24-2023 13:08-0400 Promise to Return Ronobir FELICIA [facility] 02-24-2023 12:00-0400 Hourly Rounding Ronobir FELICIA [facility] 02-24-2023 12:00-0400 Promise to Return Ronobir FELICIA [facility] 02-24-2023 11:56-0400 Heart rate 62 /min Ronobir FELICIA [facility] 02-24-2023 11:56-0400 SaO2% (BldA) [Mass fraction] 97 % Ronobir FELICIA [facility] 02-24-2023 11:54-0400 Diastolic blood pressure 67 mm[Hg] Ronobir FELICIA [facility] 02-24-2023 11:54-0400 Mean blood pressure 88 mm[Hg] Ronobir FELICIA [facility] 02-24-2023 11:54-0400 Systolic blood pressure 130 mm[Hg] Ronobir FELICIA [facility] 02-24-2023 11:54-0400 Body temperature 97.88 [degF] Ronobir FELICIA [facility] 02-24-2023 11:11-0400 Hourly Rounding Ronobir FELICIA [facility] 02-24-2023 11:11-0400 Promise to Return Ronobir FELICIA [facility] 02-24-2023 11:00-0400 Hourly Rounding Ronobir FELICIA [facility] 02-24-2023 07:50-0400 SaO2% (BldA) [Mass fraction] 98 % Ronobir FELICIA [facility] 02-24-2023 07:43-0400 Heart rate 61 /min Ronobir FELICIA [facility] 02-24-2023 07:43-0400 SaO2% (BldA) [Mass fraction] 98 % Ronobir FELICIA [facility] 02-24-2023 07:41-0400 Body temperature 98.06 [degF] Ronobir FELICIA [facility] 02-24-2023 07:41-0400 Diastolic blood pressure 74 mm[Hg] Ronobir FELICIA [facility] 02-24-2023 07:41-0400 Mean blood pressure 92 mm[Hg] Ronobir FELICIA [facility] 02-24-2023 07:41-0400 Systolic blood pressure 128 mm[Hg] Ronobir FELICIA [facility] 02-24-2023 03:47-0400 Blood Pressure Location Ronobir FELICIA [facility] 02-24-2023 03:47-0400 Body temperature 97.52 [degF] Ronobir FELICIA [facility] 02-24-2023 03:47-0400 Diastolic blood pressure 70 mm[Hg] Ronobir FELICIA [facility] 02-24-2023 03:47-0400 Heart rate 57 /min Ronobir FELICIA [facility] 02-24-2023 03:47-0400 Mean blood pressure 87 mm[Hg] Ronobir FELICIA [facility] 02-24-2023 03:47-0400 Respiratory rate 17 /min Ronobir FELICIA [facility] 02-24-2023 03:47-0400 Systolic blood pressure 120 mm[Hg] Ronobir FELICIA [facility] 02-24-2023 03:06-0400 Mean blood pressure 77 mm[Hg] Ronobir FELICIA [facility] 02-24-2023 03:06-0400 Respiratory rate 16 /min Ronobir FELICIA [facility] 02-24-2023 02:49-0400 Respiratory rate 16 /min Ronobir FELICIA [facility] 02-24-2023 02:04-0400 Body temperature 96.8 [degF] Ronobir FELICIA [facility] 02-24-2023 02:04-0400 Mean blood pressure 68 mm[Hg] Ronobir FELICIA [facility] 02-24-2023 01:09-0400 Body temperature 96.62 [degF] Ronobir FELICIA [facility] 02-24-2023 00:21-0400 Heart rate 58 /min Ronobir FELICIA [facility] 02-24-2023 00:06-0400 gluc 139 mg/dL Ronobir FELICIA [facility] 02-24-2023 00:06-0400 Heart rate 61 /min Ronobir FELICIA [facility] 02-18-2022 13:50-0400 Body height 165.1 cm MD Shaikh Hernandez Work Phone: [facility] 02-18-2022 13:50-0400 Body weight 104.32 kg MD Shaikh Hernandez Work Phone: [facility] 09-01-2020 16:00-0400 BP Diastolic 85 mm[Hg] [facility] [place] 09-01-2020 16:00-0400 BP Systolic 158 mm[Hg] [facility] , [place] 09-01-2020 14:12-0400 Pulse (Heart Rate) 72 /min [facility] 09-01-2020 13:30-0400 Respiratory rate NOT REPORTED [facility] 09-01-2020 12:27-0400 Body Temperature 97.7 [degF] [facility]ank MichelleCounts include 234 beds at the [facility] [place] , [place] 09-01-2020 12:27-0400 Pulse Oximetry 94 % [facility] [place] 09-01-2020 07:15-0400 Respiratory rate NOT REPORTED HERMELINDO ADKINS [facility] Comment on above: Performed By: #### ERTPF #### [facility] [address] [place] [id number] Registered Nurse Behavioral Health: Dheeraj Garcia MD 09-01-2020 04:45-0400 Respiratory Rate 15 /min [facility] [place] [facility] [place] 08-31-2020 18:45-0400 BMI (Body Mass Index) 38.72 kg/m2 Dank Rodgers [facility] [place], [place] 08-31-2020 18:45-0400 Body weight 105.55 kg Dank Rodgers [facility] , [place] 08-31-2020 18:45-0400 Height 165.1 cm Dank Rodgers [facility] , [place] 08-31-2020 00:34-0400 Respiratory rate NOT REPORTED HERMELINDO ADKINS [facility] Comment on above: Performed By: #### ERTPF #### [facility] [address] [place] [address] Registered Nurse Behavioral Health: Dheeraj Garcia MD 08-30-2020 23:08-0400 Respiratory rate NOT REPORTED Dank [facility], [place] Encounters Encounter Date Encounter Type Care Provider Facility Start: 11-13-2023 ambulatory Arturo DOLAN [facility] ty:CD:[id number] Start: 11-12-2023 End: 11-13-2023 ambulatory Arturo DOLAN Facility: [place] Start: 07-13-2023 End: 07-13-2023 Emergency department patient visit [facility] Enio Muñoz Facility:[facility] Start: 07-13-2023 End: 07-13-2023 [facility] Start: 07-08-2023 End: 07-08-2023 ambulatory ALEXIA CLINE [facility] Start: 04-25-2023 End: 04-25-2023 ambulatory JONO LOPEZ [facility] Start: 04-15-2023 End: 04-15-[address] ROBIN PONCE . Facility:[facility] Start: 04-01-2023 End: 04-01-[address] DANK JOHNSON Facility:[facility] Start: 04-01-2023 End: 04-02-[address] DOCTOR CASTELLON Facility:[facility] Start: 03-24-2023 End: 03-25-[address] DOCTOR CASTELLON Facility:[facility] Start: 03-10-2023 End: 03-10-2023 ambulatory JONO LOPEZ [facility] Start: 02-24-2023 End: 02-24-2023 ambulatory SHAIKH MARY Facility:[facility] Start: 02-24-2023 End: 02-24-2023 Observation Sunshine DUARTE [facility] Start: 02-14-2023 End: 02-14-[address] ROBIN PONCE . Facility:[facility] Start: 10-05-2022 End: 10-05-[address] ZELALEM STACY Facility:[facility] Start: 09-23-2022 ambulatory SHAIKH Enio HERNANDEZ Facilit y:[facility] Start: 02-18-2022 End: 02-18-2022 Patient encounter procedure MD Shaikh Hernandez Work Phone: [facility] [place] Start: 03-21-2021 End: 03-22-2021 ambulatory REBEKA PARDO Facility:[facility] Start: 08-31-2020 End: 09-01-2020 Evaluation and management of inpatient HERMELINDO ADKINS [facility] Start: 08-30-2020 End: 09-01-2020 Evaluation and management of inpatient Dank Diamond Nunes [facility] 2C Ortho/Med Surg Comment on above: Injury of head, init ial encounter (Primary Dx) Procedures Date Procedure Procedure Detail Performing Clinician Start: 02-18-2022 MRI of abdomen with contrast MD Shaikh Hernandez Work Phone: Start: 09-01-2020 DISCHARGE PATIENT HERMELINDO ADKINS Start: 09-01-2020 IP CONSULT TO HOME CARE NEEDS HERMELINDO LUCILLE Start: 09-01-2020 PT EVAL AND TREAT HERMELINDO LUCILLE Start: 09-01-2020 INITIATE OXYGEN THERAPY PROTOCOL HERMELINDO LUCILLE Start: 09-01-2020 Echo tthrc r-t 2d w/wom-mode compl spec&colr d HERMELINDO LUCILLE Start: 09-01-2020 Echo tthrc r-t 2d w/wom-mode compl spec&colr d Moisés A Tyda Start: 09-01-2020 Assay of ethanol HERMELINDO LUCILLE Start: 09-01-2020 Blood count complete auto&auto difrntl wbc HERMELINDO LUCILLE Start: 09-01-2020 Comprehensive metabolic panel HERMELINDO LUCILLE Start: 09-01-2020 Gonadotropin chorionic qualitative HERMELINDO LUCILLE Start: 09-01-2020 Hemoglobin glycosylated a1c HERMELINDO LUCILLE Start: 09-01-2020 Lipid panel HERMELINDO LUCILLE Start: 09-01-2020 Cell enumeration immune selectj & id fluid spec HERMELINDO ADKINS Start: 09-01-2020 Assay of ethanol Hermelindo Mehta Adkins Work Phone: Start: 09-01-2020 BASIC METABOLIC PANEL W/ REFLEX TO MG FOR LOW K Hermelindo Adkins Work Phone: Start: 09-01-2020 Blood count complete auto&auto difrntl wbc Hermelindo Adkins Work Phone: Start: 09-01-2020 Gonadotropin chorionic qualitative Hermelindo Adkins Work Phone: Start: 09-01-2020 Hemoglobin glycosylated a1c Hermelindo Adkins Work Phone: Start: 09-01-2020 Lipid panel Hermelindo Mehta Adkins Work Phone: Start: 09-01-2020 TRAUMA PANEL Hermelindo Adkins Work Phone: Start: 08-31-2020 CATHETER REMOVAL HERMELINDO LUCILLE Start: 08-31-2020 ADVANCE DIET TOLERATED (NURSING COMMUNICATION) HERMELINDOWHITNEY ADKINS Start: 08-31-2020 DIET CARB CONTROL HERMELINDO LUCILLE Start: 08-31-2020 OT EVAL AND TREAT HERMELINDO [...] OXYGEN THERAPY PROTOCOL HERMELINDO ADKINS Start: 08-31-2020 Radex shoulder complete minimum 2 views Christina Curtis Work Phone: Start: 08-31-2020 HEIGHT AND WEIGHT HERMELINDO ADKINS Start: 08-31-2020 NURSING COMMUNICATION HERMELINDO ADKINS Start: 08-31-2020 FULL CODE HERMELINDO ADKINS Start: 08-31-2020 INITIATE OXYGEN THERAPY PROTOCOL HERMELINDOWHITNEY ADKINS Start: 08-31-2020 MISCELLANEOUS NURSING CARE ORDER (SPECIFY) HERMELINDOWHITNEY ADKINS Start: 08-31-2020 NIHSS HERMELINDO ADKINS Start: 08-31-2020 NOTIFY PHYSICIAN (SPECIFY) HERMELINDO ADKINS Start: 08-31-2020 NURSING SWALLOW ASSESSMENT HERMELINDOWHITNEY ADKINS Start: 08-31-2020 OT EVAL AND TREAT HERMELINDO LUCILLE Start: 08-31-2020 PROVIDE PATIENT EDUCATION MATERIALS HERMELINDO ADKINS Start: 08-31-2020 PT EVAL AND TREAT HERMELINDO ADKINS Start: 08-31-2020 REASON FOR NO CHEMICAL VTE PROPHYLAXIS HERMELINDO ADKINS Start: 08-31-2020 BOTTOM SAW OPERATOR EVAL AND TREAT HERMELINDOWHITNEY ADKINS Start: 08-31-2020 TOBACCO CESSATION EDUCATION HERMELINDO ADKINS Start: 08-31-2020 VITAL SIGNS HERMELINDO ADKINS Start: 08-31-2020 VITAL SIGNS - NOTIFY MD HERMELINDO ADKINS Start: 08-31-2020 PATIENT STATUS (FROM ED OR OR/PROCEDURAL) HERMELINDOWHITNEY ADKINS Start: 08-31-2020 IP CONSULT TO NEUROLOGY HERMELINDO ADKINS Start: 08-31-2020 Ct angiography head w/contrast/noncontrast HERMELINDO ADKINS Start: 08-31-2020 Ct lumbar spine w/o contrast material HERMELINDO ADKINS Start: 08-31-2020 Ct thoracic spine w/o contrast material HERMELINDO ADKINS Start: 08-31-2020 Ct thorax w/contrast material HERMELINDO ADKINS Start: 08-31-2020 Ct cervical spine w/o contrast material HERMELINDO ADKINS Start: 08-31-2020 TYPE AND SCREEN HERMELINDOWHITNEY ADKINS Start: 08-31-2020 Cell enumeration immune selectj & id fluid spec HERMELINDO ADKINS Start: 08-30-2020 Antibody screen Dank Nunes Start: 08-30-2020 Ct angiography neck w/contrast/noncontrast Moisés A Tyda Start: 08-30-2020 CT LUMBAR SPINE TRAUMA RECONSTRUCTION Pati Hernandezon Work Phone: Start: 08-30-2020 CT THORACIC SPINE TRAUMA RECONSTRUCTION Pati B Diop Work Phone: Start: 08-30-2020 Ct thorax w/contrast material Pati B Diop Work Phone: Start: 08-30-2020 Ct cervical spine w/o contrast material Pati Stewardderon Work Phone: Start: 08-30-2020 Blood typing serologic abo Dank Jorgensen n Start: 08-30-2020 TRAUMA PANEL Dank iFelds Michellecharanjit Abdominal hysterectomy Ronob ir FELICIA Appendectomy Ronobir FELICIA Closed fracture of p atella (disorder) Ronobir FELICIA Colonoscopy Guidoobir FELICIA Exploratory laparotomy Ronob ir FELICIA History of coronary artery bypass grafting H/O coronary artery bypass surgery MD Shaikh Hernandez Work Phone: Plan of Treatment Date Care Activity Detail Author Start: 09-01-2021 Creatinine measurement Creatinine mo [place]itoring [place] Start: 09-01-2021 HbA1c (Bld) [Mass fraction] A1C test (Diabetic or Prediabetic) [place] Start: 09-01-2021 Lipid panel Lipid screen [place], [place] Start: 09-01-2021 Potassium monitoring Potassium monit oring [place] Start: 08-31-2020 Annual Wellness Visi t (AWV) Annual Wellness Visit (AWV) [place] Start: 07-18-2020 Influenza vaccination Flu vaccine (# 1) [place] Start: 2007 Screening for malign ant neoplasm of breast Breast cancer screen [place] Start: 2007 Screening for malign ant neoplasm of colon Colon cancer screen colonoscopy [place] Start: 2007 Shingles Vaccine (1 of 2) Shingles V accine (1 of 2) [place] Start: 1978 Screening for malign ant neoplasm of cervix Cervical cancer screen [place] Start: 1976 DTaP/Tdap/Td vaccine (1 - Tdap) DTaP/Tdap/Td vaccine (1 - Tdap) [place] Start: 1975 Diabetic microalbumi betzy test Diabetic microalbuminuria test [place], [place] Start: 1972 HIV screening HIV screen [facility] [place] Start: 1967 Diabetic foot examination Diabetic f oot exam [place] Start: 1967 Diabetic retinal exam Diabetic retin al exam [place] Start: 1957 Hepatitis C screening Hepatitis C sc reen [place] Oxygen therapy [[facility] Data Set] Initiate Oxygen Therapy Protocol Respiratory Care Routine Daily until discontinued starting 08/31/2020 [place] Comment on above: Daily until disconti nued starting 08/31/2020 End: 08-31-2020 Speech and language therapy regime [place] Comment on above: One Time for 1 Occur rences starting 08/31/2020 until 08/31/2020 Immunizations Immunization Date Immunization Notes Care Provider Ronny pathak 08-17-2021 influenza virus vaccine, unspecified formulation Ronobir FELICIA [facility] 02-15-2021 SARS-CoV-2 (COVID-19 ) Ad26 vaccine, recombinant Ronobir FELICIA [facility] 01-15-2021 SARS-CoV-2 (COVID-19 ) Ad26 vaccine, recombinant Ronobir FELICIA [facility] Payers Date Payer Category Payer Medicare [id number] 1957 Self-pay [id number] 1955 Unknown [id number] 2.16.8 40.1.303098.3.579.2.175 1955 Unknown [id number] 2.16.8 40.1.417653.3.579.2.647 1955 Unknown [id number] 2.16.84 0.1.611940.3.579.2.593 1957 Unknown [id number] 2.16.84 0.1.598158.3.579.2.593 1957 Unknown [id number] 2.16.84 0.1.708612.3.579.2.593 1957 Unknown [id number] 2.16.84 0.1.939867.3.579.2.593 1957 Unknown [id number] 2.16.84 0.1.736318.3.579.2.593 1957 Unknown [id number] 2.16.84 0.1.013689.3.579.2.593 1957 Unknown [id number] 2.16.84 0.1.361537.3.579.2.593 1957 Unknown [id number] 2.16.8 40.1.294941.3.579.2.727 1957 Unknown [id number] 2.16.8 40.1.924632.3.579.2.727 1957 Unknown [id number] 2.16.8 40.1.302288.3.579.2.727 Self-pay Self Pay [id number] Social History Date Type Detail Facility Tobacco smoking stat [facility] Unknown if ever smoked [place], [place] Sex Assigned At Not on file [place], [place] Start: 03-19-2021 [facility] Start: 1955 Sex Assigned At Female [facility] Start: 02-24-2023 End: 07-13-2023 Tobacco smoking status Heavy tobacco smoker (finding) [facility] Comment on above: 1 pack a day Sex Assigned At Female [facility] Functional Status Date Assessment Result Facility 07-13-2023 Functional Status N/A [facility] 02-24-2023 Functional Status No [facility] 02-24-2023 Functional Status [facility] Clinical Notes 02-24-2023 to 01-17-2024 Note Date & Type Note Facility 12-03-2023 Note RCRI=3 points Class IV Risk 15.0 % 30-day risk of , ME, or cardiac arrest PMH- CAD s/p Stent, HFrEF, Stroke/TIAs, HTN, HPL, DM From a cardiac perspective pt may hold Plavix- but she most likely still is on DAPT r/t Stroke. Would prefer pt to not stop ASA if possible. She is a moderate risk for a low to mod risk urological procedure. Please monitor hemodynamics carefully and prevent any major fluid shifts. Resume all meds post op. Thank you Alexia Cline NP Division of Cardiology, [facility]- [phone] Pager- [phone] Email- [email or web address] 07-13-2023 Hospital Discharg e instructions Patient Education [...] to strengthen the arm. General instructions Take zidj-ilr-hoyqqhi and prescription medicines only as told by [...] provider. Document Revised: 07/19/2022 Document Reviewed: 07/19/2022 [employer] Patient Education 2022 [employer]af. 07/13/2023 12:19:06 Muscle Strain Muscle Strain A [...] is not too tight. General instructions Take texk-hwm-gjulzug and prescription medicines only as told by [...] provider. Document Revised: 01/21/2022 Document Reviewed: 01/21/2022 [employer] Patient Education 2022 FamilyLeaf. Follow Up Care 07/13/2023 11:23:52 With:Robin Ponce Address: [address] [place], [place] [phone] Business (1) When:07/16/2023 12:02:34 [facility] 07-13-2023 Evaluation + Plan note Extrac sherita from: Title:ED Note Author:Rubén STAFFORD, Mathew Sadler te:07/13/23 Shoulder pain (M25.519: Pain in unspecified shoulder) Ordered: acetaminophen-oxycodone, 1 tab(s), Oral, q6hr as needed for pain for 3 day(s), 15 tab(s), Refill(s) 0, [id number], 165, cm, 07/13/23 11:34:00 EDT, Height/Length Dosing, 95.5, kg, 07/13/23 11:34:00 EDT, Weight Dosing [facility]08-22-2023 NoteWill increase imdur to 60 mg and d/w pt that if migraines worsen she can reduce back to 30 mg Recent [facility] Recommended pt to [place] a [place] specialist [place]-2023 NoteCoronary artery disease is stable Continue GDMT- Coreg, simvastatin, imdur continue risk factor modifications- heart healthy diet, regular exercise as tolerated and continue all medications.[facility] 07-08-2023 NoteNYHC II- currently LVEF normal 60%- recovered Mild MR and TV regurg Normal rt sided pressure Continue current med regime. Coreg, irbesartan, simvastatin, [facility]ur[facility] 07-[facility]-2023 NoteHypertension is well controlled, Continue all current medsUniversity [facility]08-[facility]-2023 NoteUTP CARDIOLOGY PROGRESS NOTE HPI: Yeyo Avila [...] States pain in groin Cat/Feline Products Hives [place] Hives Topiramate Hives and Other Blue Dye [...] mononitrate ER (I (more content not included)... [facility]06-09-2023 NotePatient here for follow up Holter monitor and stress test. Also had labs a few weeks ago. Review of Systems Cardiovascular: Positive for chest pain, dyspnea on exertion and near-syncope (with bending over). Neurological: Positive for dizziness and light-headedness. All other systems reviewed and are negative.[facility] 04-25-2023 NoteCardiology Clinic Note Subjective Yeyo [...] States pain in groin Cat/Feline Products Hives [place] Hives Topiramate Hives and Other Blue Dye [...] mg sublingual tablet, Dis (more content not included)...[facility] 03-10-2023 NoteCardiology Clinic Note Subjective Yeyo [...] States pain in groin Cat/Feline Products Hives [place] Hives Topiramate Hives and Other Blue Dye [...] systolic function. No significant (more content not included)...[facility] 02-24-2023 NoteFisher The [facility] Pratt HospitalComment on above:Result Comment: Electronically Signed By: Leann GUNTER MD\.br\Date and Time Signed: 02/24/23 12:35 [id number] Evaluation + Plan noteExtracted from: Title:Discharge Note [...] PRN With When Contact Information Robin Ponce [address] [place] [address]- Business (1) Additional Instructions: Office is closed for lunch between Noon and 1 p.m. Please contact office for follow up appointment. Thank you! TRENT FAWWAD Within 5 to 7 days [address] [place] [address] Business (1) Additional Instructions: Not a patient. Syncope, Jmhe-dn-Wvyh Extracted from: Title:APSO Note Author:PERLA PRADO, Mbanefo [...] heart monitor. Check orthostatic vital signs. Ordered: [facility] Hospital Care/Day Moderate 35 Minutes 04229 2. RAMA (acute kidney injury) (N17.9: Acute kidney failure, unspecified) Acute kidney injury secondary to ATN from dehydration and antihypertensives. Resolved. Treated with IV fluid. Ordered: [facility] Hospital Care/Day Moderate 35 Minutes 34837 3. Hypokalemia (E87.6: Hypokalemia) Secondary to poor oral intake. Potassium level improving to 3.4. We will give patient additional potassium chloride. Ordered: potassium chloride, 40 mEq = 2 tab(s), Tab-ER, Oral, Once, Stop date 02/24/23 10:00:00 EDT, Routine, Start date 02/24/23 10:00:00 EDT, 02/24/23 9:46:00 EDT [facility] Hospital Care/Day Moderate 35 Minutes 74393 4. Diabetes mellitus (E11.9: Type 2 diabetes mellitus without complications) Continue sliding scale insulin. Ordered: [facility] Hospital Care/Day Moderate 35 Minutes 22293 5. High cholesterol (E78.00: Pure hypercholesterolemia, unspecified) On Lipitor at home. Ordered: [facility] Hospital Care/Day Moderate 35 Minutes 55252 6. Hypertension (I10: Essential (primary) hypertension) Blood pressure on the low side of normal. 7. CAD (coronary artery disease) (I25.10: Atherosclerotic heart disease of [place] coronary artery without angina pectoris) Continue on aspirin, Plavix. 8. Aortic aneurysm (I71.9: Aortic aneurysm of unspecified site, without rupture) Status post surgery. 9. Obese (E66.9: Obesity, unspecified) Recommend therapeutic lifestyle modification changes. 10. On deep vein thrombosis (DVT) prophylaxis (Z79.899: Other intermediate accountant (current) drug therapy) Heparin. Disposition: Home soon pending physical therapy evaluation. I discussed the diagnosis and plan of care with the patient at the bedside. Moderate level of MDM based on addressing above issues. This documentation was transcribed using voice recognition software. Several attempts were made to ensure accuracy. However inadvertent computerized limited radiology technician errors may be present. Leann Gunter. Hospitalist. [...] deep vein thrombosis (DVT) prophylaxis (Z79.899: Other longterm (current) drug therapy) SCD, heparin Orders: acetaminophen, [...] XR Spine Lumbosacral 2 or 3 Views [facility]04-10-2023 Hospital Discharge instructions Patient Education 02/24/2023 11:49:54 Syncope, Wlbf-aa-Uoqh Syncope Syncope is when you pass out [...] pee (urine) pale yellow. General instructions Take gvfs-bqf-qygcqxh and prescription medicines only as told by [...] right away. Call your local emergency services (801 in the [place] Do not drive yourself [...] 04/21/2009 Document Revised: 12/16/2018 Document Reviewed: 12/16/2018 [employer] Patient Education 2019 FamilyLeaf. Follow Up Care 02/24/2023 00:01:37 With:Robin Ponce Address: [facility] [place] [address]- Business (1) When: Unknown Comments:Office is closed for lunch between Noon and 1 p.m. Please contact office for follow up appointment.Thank you! With:TRENT SHANEAZConcepcion Address: [address] [place] [phone] Business (1) When:5 to 7 days Comments:Not a patient. [facility]04-10-2023 NoteAt[facility] Health Union Wester [facility] HospitalComment on above:Result Comment: Electronically Signed By: Sunshine DUARTE DO.diane\Date and Time Signed: 02/24/23 03:41 EDTEvaluation noteNo assessment information availableTogus Va Medical Center Work Phone: Hospital course Narrative No data available for this section [facility] HospitalProgress note No data available for this section [facility] Summary Purpose Family History No Family History Records FoundNo Family History Records FoundNo Family History Records FoundNo Family History Records FoundNo Family History Records FoundNo Family History Records FoundNo Family History Records Found Advance Directives No Advanced Directives Records FoundLatest Code Status on File Code Status Date Activated Date Inactivated Comments Full Code 08/31/2020 3:54 AM Full Code 08/31/2020 3:54 AM 08/31/2020 3:54 AM Advance Directive Response Recorded Date/ Time Advance Directives No October 24, 2018 10:10pm Discharge Instructions * Discharge Instr - JOSH* Karla Call RN - 09/01/2020 11:36 AM EDT [...] Assisted Dressing Independent Toileting Assisted Feeding Independent Cell Attendant Helper Independent Med Delivery whole Wound Care Documentation [...] Readmission: 9 Discharging to Facility/ Agency Name: [facility] FAX [address] [facility] [address] Address: Phone: Fax: Dialysis Facility (if applicable) Name: Address: Dialysis Schedule: Phone: Fax: Tram Inspector/Oil Filters Inspector signature: EDT PHYSICIAN SECTION Prognosis: Good Condition at Discharge: Stable Rehab Potential (if transferring to Rehab): {Prognosis:[id number]} Recommended Labs or Other Treatments After Discharge: [...] called to the trauma nurse line at [phone] and please leave a message. Trauma is a life-threatening condition. Your doctor will want to closely monitor you. Be sure to goto all of your appointments. * Attachments The following attachments cannot be sent through Care Everywhere. * Fall Prevention (Gibraltarian) * Falls: Get Up Safely Instruction (Gibraltarian) * Vasovagal Syncope (Gibraltarian) documented in this encounter History of Present [...] 4 wheeled walker, Cane, Quad cane, Crutches, Marking Machine Operator, Sock aid(pt reported no use of DME at baseline) ADL Assistance: Independent Homemaking Assistance: Independent Homemaking Responsibilities: Yes Meal Prep Responsibility: Primary Laundry Responsibility: Primary Cleaning Responsibility: Primary Ambulation Assistance: Independent Transfer Assistance: Independent Active Material Control Analyst: Yes Mode of Transportation: Car 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 pt with no LOB ADL [...] L LE. pt unable to identify when job specification writer was touching L UE (on elbow [...] Plan Times per week: 3-5x/wk AM-PAC Score AM-[facility] Inpatient Daily Activity Raw Score: 16 (09/01/201440) AM-PAC Inpatient ADL T-Scale Score : 35.96 (09/01/201440) ADL Inpatient [facility] 0-100% Score: 53.32 (09/01/201440) ADL Inpatient [facility] G-Code Modifier : CK (09/01/201440) Goals Short [...] activity in order to increase coordination and loss prevention investigator strength to L hand Short term goal 6: dem SBA during functional transfers/functional mobility with LRD, as needed Therapy Time Individual Concurrent Group Co-treatment Time In 1316 Time Out 1404 Minutes 48 Variance: 40 Debi Marques OTR/L * Taya Bergeron, BOTTOM SAW OPERATOR - 09/01/2020 11:39 AM EDT Speech Language Pathology Facility/Department: [address] ORTHO/MED SURG Initial Speech/Language/Cognitive Assessment NAME: [...] the bathtub. +LOC, on Plavix. Taken to [facility] where a stroke alert was initiated. CT head at 6pm today at [facility] did not show intracranial bleed. Transferred to [place] for trauma and neurology work-up. Upon arrival, Pt without neurological deficit, GCS 15, c/o REYNA. Pt deemed hemodynamically stable and was sent to CT. Pain: Pain Assessment Pain Assessment: Faces Pain Level: 0 Assessment: Pt presents with mild-moderate cognitive deficits characterized by difficulty with immediate and short-term memory, verbal reasoning skills, and word associations. Pt. NIKOLSKI, which may haveaffected results of evaluation. Multiple repetitions provided throughout evaluation. Pt. Presents with no dysarthria, no O/M deficits at this time. ST to follow up and provide treatment to address noted deficits. Education provided. Recommendations: Requires BOTTOM SAW OPERATOR Intervention: Yes Duration/Frequency of Treatment: 3-5X/week D/C [...] 1126 Minutes 12 Completed by: Debi Andrade Compliance Manager Clinician Cosigned By: Taya Bergeron M.A.CCC/BOTTOM SAW OPERATOR 09/01/2020 11:40 AM * Caleb Jefferson MD [...] Out: 1000 [Urine:1000] LAB: CBC: Recent Labs 08/30/20223309/01/20 0515 09/01/20 0529 WBC 8.7 DUPLICATE ORDER 9.4 HGB 12.3 DUPLICATE ORDER 12.7 HCT 38.2 DUPLICATE ORDER 40.7 MCV 89.7 DUPLICATE ORDER 90.0 PLT 268 DUPLICATE ORDER 251 BMP: Recent Labs 08/30/20223309/01/2015 09/01/20 0529 NA 139 DUPLICATE ORDER 140 K 3.5* DUPLICATE ORDER 4.0 CL 106 DUPLICATE ORDER 106 CO2 23 DUPLICATE ORDER 21 BUN 11 DUPLICATE ORDER 10 CREATININE 0.62 DUPLICATE ORDER 0.53 GLUCOSE 186* DUPLICATE ORDER 169* COAGS: Recent Labs 08/30/20 2234 09/01/20 0515 APTT 24.4 PENDING INR 1.0 PENDING RADIOLOGY: No new imaging Christina Curtis MD 09/01/20, 10:26 AM Attending Note I have reviewed the above GCS note(s) and I either performed the gibbs elements of the medical history and physical exam or was present with the trauma resident when the gibbs elements of the medical history and physical exam were performed. I have discussed the findings, established the care plan and recommendations with the trauma team. Resting comfortably. No significant traumatic issues. W/u per neurology. Discharge planning. Calbe Jefferson MD 09/01/2020 4:00 PM * Nader Petit, AIR CONDITIONING INSTALLER SUPERVISOR - 09/01/2020 10:02 AM EDT Physical Therapy Facility/Department: [address] ORTHO/MED SURG Daily Treatment Note NAME: [...] Safe use of RW Barriers to Learning: NIKOLSKI REQUIRES PT FOLLOW UP: Yes Activity Tolerance [...] 44 Timed Code Treatment Minutes: 40 Minutes AIR CONDITIONING INSTALLER SUPERVISOR returned to pt's room to have her attempt stair management, to return home safely Individual Individual Time In 1140 Time Out 1205 Minutes 25 Timed Code Treatment Minutes: 9 Minutes (a doctor interrupted PT, to assess the pt) Nader Petit, AIR CONDITIONING INSTALLER SUPERVISOR * Debi Marques OT - 09/01/2020 8:34 [...] Serve. Will continue to monitor. * Kiara Luna PT - 08/31/2020 3:09 PM EDT Physical Therapy Facility/Department: 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 Cognition Cognition Overall Cognitive [...] Restraints Initially in place: No AM-PAC Score AM-[facility] Inpatient Mobility Raw Score : 13 (08/31/201509) [facility] Inpatient T-Scale Score : 36.74 (08/31/201509) Mobility Inpatient CMS 0-100% Score: 64.91 (08/31/201509) Mobility Inpatient [facility] G-Code Modifier : CL (08/31/201509) Goals Short [...] section and content) DATE CREATED AUTHOR 04/06/2019 [facility] DATE CREATED AUTHOR AUTHOR'S ORGANIZ ATION 09/12/2020 [facility] DATE CREATED AUTHOR AUTHOR'S ORGANIZ ATION 03/28/2021 [facility] DATE CREATED AUTHOR AUTHOR'S ORGANIZ ATION 03/03/2022 [facility] DATE CREATED AUTHOR AUTHOR'S ORGANIZ ATION 04/25/2023 [facility] DATE CREATED AUTHOR AUTHOR'S ORGANIZ ATION 11/20/2023 [facility] DATE CREATED AUTHOR AUTHOR'S ORGANIZ ATION 12/04/2023 [facility] Reason for Visit (unrecogniz ed section and content) Reason Comments Fall Trauma Status Reason Specialty Diagnoses / Procedures Referre d By Contact Referred To Contact Diagnoses Syncope and collapse Procedures Syncope and collapse Hermelindo Adkins MD [address] [address], [address] [place] [phone] [facility] Care Teams (unrecognized sec tion and content) Team Status: Inactive Member Role Status Dates [...] BE BASED ON THE PRIMARY CLINICAL RECORDS. [employer] provides no warranty or guarantee of the accuracy or completeness of information in this document.
[2023-12-11 11:50] LABS: Basophils Absolute Auto 0.1 10^3/uL (0.0-0.1); Basophils Percent Auto 1.5 % (0.2-2.0); Eosinophils Absolute Auto 0.4 10^3/uL (0.0-0.7); Hematocrit 41.8 % (36.0-48.0); Immature Granulocytes Abs Auto 0.04 10^3/uL (0.00-0.03); Immature Granulocytes Pct Auto 0.6 % (0.0-0.5); Lymphocytes Absolute Auto 1.8 10^3/uL (1.2-3.8); Lymphocytes Percent Auto 26.6 % (20.5-60.0); Mean Corpuscular HGB Conc 33.5 g/dL (29.9-35.2); Mean Corpuscular Hemoglobin 30.5 pg (26.7-34.0); Mean Corpuscular Volume 91.1 fL (81.0-99.0); Mean Platelet Volume 10.9 fL (9.5-13.5); Monocytes Absolute Auto 0.5 10^3/uL (0.3-0.8); Monocytes Percent Auto 7.1 % (1.7-12.0); Neutrophils Absolute Auto 3.9 10^3/uL (1.4-6.5); Neutrophils Percent Auto 58.2 % (43.0-75.0); Platelet Count 252 10^3/uL (150-450); Red Blood Count 4.59 10^6/uL (4.20-5.40); White Blood Count 6.7 10^3/uL (4.0-11.0)
[2023-12-11 11:53] LABS: Anion Gap 16.2; BUN Creatinine Ratio 12.7; Carbon Dioxide 24.5 mmol/L (21.0-32.0); Chloride 102 mmol/L (98-107); Estimated GFR (African America >60 (>=60); Estimated GFR (Non-African Ame 50 (>=60); Glucose 239 mg/dL (74-106); Potassium 3.7 mmol/L (3.5-5.1); Sodium 139 mmol/L (136-145)
--- NOTE | 2023-12-11 12:05 | PM.PRESUREVA ---
History of Present Illness History of Present Illness Chief complaint: LEFT S/P STENT & LEFT KIDNEY STONE Narrative: Patient presents for preadmission testing accompanied by her friend. The patient states she had a procedure done here on 11/13/2023 and since the stent has been placed she has had incontinence. She states she is going through multiple Depends a day. The patient states she does continue to have dysuria as well as left flank pain. She denies hematuria, abdominal pain, nausea, vomiting, fever, or any other complaints. Review of Systems ROS Narrative REVIEW OF SYSTEMS: Negative except as stated in HPI, ten or more systems reviewed. Constitutional: No fever , chills, weakness ENT: No sore throat or epistaxis Cardiovascular: No edema, chest pain, or palpitations; Chronic dyspnea on exertion Respiratory: No cough or wheezing Musculoskeletal: No joint pain or swelling Neurological: No numbness, tingling, weakness, or headache Psychiatric: No mood changes PFSH [facility] Medical History (Updated 12/11/23 @ 11:27 by Freda Monteiro NP) Incontinence ?R32 - Unspecified urinary incontinence (ICD-10) Dysuria ?R30.0 - Dysuria (ICD-10) Atypical chest pain ?R07.89 - Other chest pain (ICD-10) Hemiplegic migraine ?G43.409 - Hemiplegic migraine, not intractable, without status migrainosus (ICD-10) Coronary atherosclerosis ?I25.10 - Atherosclerotic heart disease of [place] coronary artery without angina pectoris (ICD-10) Systolic heart failure ?I50.20 - Unspecified systolic (congestive) heart failure (ICD-10) 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 ?Z87.74 - Personal history of (corrected) congenital malformations of heart and circulatory system (ICD-10) Anemia ?D64.9 - Anemia, unspecified (ICD-10) Depression ?F32.A - Depression, unspecified (ICD-10) Chronic obstructive pulmonary disease ?J44.9 - Chronic obstructive pulmonary disease, unspecified (ICD-10) Right sided weakness ?R53.1 - Weakness (ICD-10) GERD (gastroesophageal reflux disease) ?K21.9 - Gastro-esophageal reflux disease without esophagitis (ICD-10) Dyspnea on exertion ?R06.09 - Other forms of dyspnea (ICD-10) Angina at rest ?I20.89 - Other forms of angina pectoris (ICD-10) Arthritis ?M19.90 - Unspecified osteoarthritis, unspecified site (ICD-10) Fibromyalgia ?M79.7 - Fibromyalgia (ICD-10) Hyperlipidemia ?E78.5 - Hyperlipidemia, unspecified (ICD-10) Bladder cancer ?C67.9 - Malignant neoplasm of bladder, unspecified (ICD-10) Hearing loss ?H91.90 - Unspecified hearing loss, unspecified ear (ICD-10) CVA (cerebral vascular accident) ?I63.9 - Cerebral infarction, unspecified (ICD-10) Diabetes mellitus ?E11.9 - Type 2 diabetes mellitus without complications (ICD-10) Aorta aneurysm ?I71.9 - Aortic aneurysm of unspecified site, without rupture (ICD-10) Achilles rupture ?S86.019A - Strain of unspecified Achilles tendon, initial encounter (ICD-10) Coronary stent occlusion (~2011) ?T82.897A - Other specified complication of cardiac prosthetic devices, implants and grafts, initial encounter (ICD-10) Chest pain ?R07.9 - Chest pain, unspecified (ICD-10) Surgical History (Updated 12/11/23 @ 12:08 by Freda Monteiro NP) Status post cystoscopy with ureteral stent placement ?Z96.0 - Presence of urogenital implants (ICD-10) H/O cystoscopy ?Z98.890 - Other specified postprocedural states (ICD-10) H/O cystoscopy (11/13/23) ?Z98.890 - Other specified postprocedural states (ICD-10) History of tonsillectomy ?Z90.89 - Acquired absence of other organs (ICD-10) History of laparoscopy ?Z98.890 - Other specified postprocedural states (ICD-10) History of colonoscopy ?Z98.890 - Other specified postprocedural states (ICD-10) H/O knee surgery ?Z98.890 - Other specified postprocedural states (ICD-10) H/O knee surgery ?Z98.890 - Other specified postprocedural states (ICD-10) History of appendectomy ?Z90.49 - Acquired absence of other specified parts of digestive tract (ICD-10) History of hysterectomy ?Z90.710 - Acquired absence of both cervix and uterus (ICD-10) History of cardiac catheterization ?Z98.890 - Other specified postprocedural states (ICD-10) History of heart artery stent ?Z95.5 - Presence of coronary angioplasty implant and graft (ICD-10) History of bladder surgery ?Z98.890 - Other specified postprocedural states (ICD-10) Family History (Updated 11/12/23 @ 14:55 by Freda Monteiro NP) Other Family history of diabetes mellitus Family history of hypertension Family history of lung cancer Family history of myocardial infarction Social History (Updated 11/12/23 @ 14:46 by Freda Monteiro NP) Within the past year, how often did you have a drink containing alcohol: never Score interpretation: A score less than 3 is consistent with normal alcohol consumption. Smoking status: Heavy tobacco smoker What tobacco products do you use: cigarettes Packs per day: 1 Years smoked: 50 Smoking pack-years: 50.00 Non-prescribed substance use: denies use Highest level of school completed/degree received: high school graduate Feel stressed/tense/nervous/anxious/difficulty sleeping: only a little Life stressors: recent of family or friend Life stressor details: Husbands Due to disability, difficulty making decisions: No Meds Home Medications and Allergies Home Medications Medication Instructions Recorded Confirmed Type carvedilol 25 mg tablet 25 mg PO DAILY 06/15/23 12/11/23 History clopidogrel 75 mg tablet 75 mg PO DAILY 06/15/23 12/11/23 History duloxetine 60 mg capsule,delayed 60 mg PO DAILY 06/15/23 12/11/23 History release glimepiride 4 mg tablet 4 mg PO DAILY 06/15/23 12/11/23 History insulin NPH-regular 70-30 U-100 See Protocol subcut 06/15/23 History insulin 100 unit/mL subcutaneous pen (Novolin 70-30 FlexPen U-100 Insulin) irbesartan 150 mg tablet 150 mg PO DAILY 06/15/23 12/11/23 History pantoprazole 40 mg tablet,delayed 40 mg PO DAILY 06/15/23 12/11/23 History release simvastatin 40 mg tablet 40 mg PO DAILY 06/15/23 12/11/23 History tizanidine 4 mg tablet 4 mg PO Q8H PRN muscle spasticity 06/15/23 12/11/23 History bupropion HCl 150 mg 24 hr tablet, 150 mg PO DAILY 06/16/23 12/11/23 History extended release diphenhydramine-phenylephrine 25 1 tab PO TID 06/16/23 12/11/23 History mg-10 mg tablet (Allergy and Sinus Relief) isosorbide mononitrate 60 mg 30 mg PO DAILY 06/16/23 12/11/23 History tablet,extended release 24 hr metoclopramide HCl 10 mg tablet 10 mg PO Q6H 06/16/23 12/11/23 History hydroxyzine pamoate 50 mg capsule 50 mg PO Q8H PRN itching #10 caps 08/25/23 11/12/23 Rx (Vistaril) cephalexin 500 mg capsule 500 mg PO BID 7 days #14 caps 11/11/23 11/12/23 Rx hydrocodone 5 mg-acetaminophen 325 1 tab PO Q6H PRN pain 4 days #14 11/11/23 11/12/23 Rx mg tablet tabs ondansetron 4 mg disintegrating 4 mg PO Q6H PRN nausea and 11/11/23 11/12/23 Rx tablet vomiting #20 tabs oxybutynin chloride 10 mg 10 mg PO DAILY #30 tabs 11/13/23 12/11/23 Rx tablet,extended release 24 hr Allergies Allergy/AdvReac Type Severity Reaction Status Date / Time acetaminophen Allergy Intermediate Hives Verified 06/15/23 20:49 [From Excedrin Migraine] aspirin Allergy Intermediate Hives Verified 06/15/23 20:49 [From Excedrin Migraine] caffeine Allergy Intermediate Hives Verified 06/15/23 20:49 [From Excedrin Migraine] Iodinated Contrast Media Allergy Mild Hives Verified 06/15/23 20:49 strawberry Allergy Verified 11/12/23 14:36 lisinopril AdvReac Severe Swelling Verified 06/15/23 20:49 of Lip/Tongue/Throat sumatriptan [From Imitrex] AdvReac Intermediate Nausea Verified 11/12/23 14:37 topiramate [From Topamax] AdvReac Intermediate Nausea Verified 11/12/23 14:37 Exam Narrative Exam Narrative: Constitutional: Awake, alert, comfortable, well-appearing, nontoxic, interactive, vital signs as charted Head: Normocephalic, atraumatic ENT: Edentulous, oral mucosa tacky Neck: Supple, normal appearance, normal range of motion, no meningeal signs, no lymphadenopathy Respiratory: No respiratory distress, breath sounds Diminished bilateral bases Cardiovascular: Regular rate and rhythm, strong and regular heart tones Abdomen: Nontender, normal bowel sounds, soft, no CVA tenderness Musculoskeletal: Normal gait, no swelling or edema Skin: No rashes or induration, no lesions, only visible skin inspected Neuro: No neurological deficits, normal sensation Psychiatric: Oriented ?3, normal affect Assessment and Plan Assessment and Plan (1) Calculus, renal: (2) Status post cystoscopy with ureteral stent placement: Plan Cystoscopy, left retrograde, left ureteroscopy, holmium laser, possible left stent change or removal scheduled with Dr. Doran 12/18/2023.
[2023-12-11 12:11] LABS: INR 1.03; Partial Thromboplastin Time 30.8 sec (22.3-36.2); Prothrombin Time 10.9 sec (9.0-11.6)
== END 2023-12-11 11:02 | disposition home or self-care (01) ==
LOC: PST 11:02
PROVIDERS: PCP Family Medicine; Visit Provider Urology
DX: Z01.810 Encounter for preprocedural cardiovascular examination (principal); I10 Essential (primary) hypertension; E11.9 Type 2 diabetes mellitus without complications; Z79.01 Long term (current) use of anticoagulants; D64.9 Anemia, unspecified; J44.9 Chronic obstructive pulmonary disease, unspecified; N20.0 Calculus of kidney; E78.00 Pure hypercholesterolemia, unspecified; M79.7 Fibromyalgia; Z85.51 Personal history of malignant neoplasm of bladder
CPT/HCPCS: 36415; 80048; 85025; 85610; 85730; G0463

== ENCOUNTER 2023-12-18 06:56 | Day surgery (SDC) | payer MEDICARE, SELFPAY ==
[2023-12-18] VITALS (23 sets, daily range): BP systolic 141–184; BP diastolic 68–138; PULSE 68–80; RESP 10–24; TEMP 35.4–36.4; O2SAT 95–99; BMI 33.6
--- OUTSIDE RECORDS SUMMARY | 2023-12-18 07:00 | XMS_ITS | CCD ---
Author Name Unknown Address [address] [place] [address] Organization [facility] Care Team Providers Care Business Unit Controller Name Role Phone Robin Ponce Primary Care Provider HERMELINDO ADKINS Consulting Unavailable ROBIN PONCE Primary Care Unavailable HERMELINDO ADKINS Attending Unavailable HERMELINDO ADKINS Admitting Unavailable GENEVIEVE LINGDEBO Consulting Unavailable CONCEPCIÓN, EHAB A Attending Unavailable VIJAY PARDOAB A Admitting Unavailable ROBIN PONCE Referring Unavailable ROBIN PONCE Primary Care Unavailable MD Darby Hernandez Primary Care Provider [phone] MD Ese Tan Attending Provider [phone] SHAIKH HERNANDEZ Primary Care Physician [phone] DR DANK JOHNSON Admitting UnavailDR ROBIN Marie Primary Care Unavailable DR DANK JOHNSON Attending UnavailREYNA Ni Consulting UnavailLISSETT Simon Consulting Unavailable DR ROBIN SEGOVIA Primary Care Unavailable JEFFRY WILILAMSON Admitting Unavailable SHELLEY II, TIMOTEO Consulting Unavailable [...] Attending Unavailable MISC, DR SONI Consulting Unavailable KRIS ., DR KELLY Primary [...] Consulting Unavailable Robin Ponce Primary Care Physician [phone] FAWWAD, TRENT Primary Care Unavailable DO Sunshine DUARTE Admitting Unavailabl e OJUKWU, Mbanefo Attending Unavailable Zaki Muñoz Attending Unavailable MARY, TRENT Primary Care Unavailable Arturo DOLAN Attending Unavailable Arturo DOLAN Attending Unavailable JONO LOPEZ Attending Unavailable JONO LOPEZ Attending Unavailable ALEXIA CLINE Attending Unavailable Allergies Allergy Classification Reported Allergen(s) Allergy Type Date of Onset Reaction(s) Facility Angiotensin Converting Enzyme (RYANNE) Inhibitors (1 source) Lisinopril Drug Allergy [facility] Repository Anti-Epileptic Agents (1 source) topiramate Drug Allergy [address] [facility] Berries (1 source) [place] Food Allergy [address] [facility] Cats (1 source) Cat Animal Allergy (Dander) [facility] Dextroamphetamine (1 source) Dextroamphetamine Drug Allergy [address] [facility] Iodine (and Iodine containting drugs) (1 source) Iodine (And Iodine Containting Drugs) Drug Allergy [address] [facility] Unclassified (2 sources) BLUE DYE; Translations: [BLUE DYE] Drug allergy (disorder) [facility] (6 sources) Aspirin; Translations: [Aspirin] Drug Allergy 016 Nausea [facility] Comment on above: uncoded aspirin (4 sources) atorvastatin; Translations: [atorvastatin] Drug Allergy 014 Unknown Reaction [facility] (7 sources) Lisinopril; Translations: [Lisinopril] Drug Allergy Swelling of Lip/Tongue/Th roat, morphine [facility] (2 sources) Morphine; Translations: [morphine] Drug Allergy [facility] (4 sources) strawberry allergenic extract; Translations: [[place]] Drug Allergy 011 [facility] (4 sources) topiramate; Translations: [topiramate] Drug Allergy Urticaria (disorder) [facility] (1 source) cat dander Allergy to substance [facility] (2 sources) Iodinated Contrast Media; Translations: [IODINATED CONTRAST MEDIA] Allergy to substance [facility] (3 sources) Contrast media; Translations: [Contrast Dye] Drug allergy Urticaria (disorder) [facility] (3 sources) [place]; Translations: [Strawberries] Drug allergy Urticaria (disorder) [facility] (3 sources) SUMAtriptan; Translations: [sumatriptan] Drug Allergy [facility] (1 source) Acetaminophen / Aspirin / Caffeine Drug Allergy [facility] Rep[facility] (2 sources) Dextroamphetamine; Translations: [Lipitor] Drug Allergy [facility] (2 sources) Iodine (And Iodine Containting Drugs) Drug allergy (disorder) [facility] (1 source) Ketorolac Drug Allergy [facility] (1 source) Plasmin Drug Allergy [facility] (3 sources) topiramate; Translations: [Topamax] Drug Allergy [facility] (2 sources) Dhe Drug allergy (disorder) [facility] (2 sources) Cat/Feline Product Derivatives Drug allergy (disorder) [facility] (1 source) Iodine; Translations: [IODINE] Drug Allergy [facility] (1 source) CAT/FELINE PRODUCTS; Translations: [CAT/FELINE PRODUCTS] Propensity to adverse reactions to drug (disorder) 016 [facility] Medications Current Medications Medication Drug Class(es) Dates Sig (Normalized) Sig (Original) acetaminophen 325 mg oral tablet (1 source) Start: 08-31-2020 650 mg, Oral, EVERY 4 HOURS PRN, Pain Mild (1-3), Pain Mild (1-3) or Fever greater than 100.5 F (38 C), Starting [facility] 08/31/20 at 0353 Maximum dose of acetaminophen [...] by mouth every six hours as needed nknvursjxi-gnrydafsasfoy-oskdlmkj (DAISY CET, ESGIC) 50-325-40 MG per tablet [...] for 3 day(s), 15 tab(s), Refill(s) 0, [facility]/pharmacy #[id number], 165, cm, 07/13/23 11:34:00 EDT, Height/Length Dosing, [...] 81 mg, Oral, DAILY, First dose on [facility] 08/31/20 at 0900 Do NOT administer if [...] mg, Oral, NIGHTLY, F irst dose on [facility] 08/31/20 at 2100 carvedilol 25 mg oral [...] chocolate. Start: 08-22-2020 take 1 capsule by [facility] once daily DULoxetine (CYMBALTA) 60 MG extended [...] 1321 Start: 06-01-2020 take 1 capsule by [facility] four times daily as needed for anxiety [...] due to poor endocardial border definition, Starting [facility] 08/31/20 at 0353, For 1 dose Echocardiogram [...] administer the echo contrast. polyethylene glycol 3350 30110 mg powder for oral solution (1 source) Osmotic Laxative Start: 08-31-2020 17 g, Oral, DAILY PRN, Constipation, Starting [facility] 08/31/20 at 0353 First line therapy for [...] (2 times per day), First dose on [facility] 08/31/20 at 0900 Start: 08-31-2020 take 10 mL intraveno us route once as needed 10 mL, Intravenous, PRN, Line Care, After every IV line use, Starting [facility] 08/31/20 at 0353 Start: 08-30-2020 0.9 % [...] 10 MIN PRN, High Blood Pressure, Starting [facility] 08/31/20 at 0353 Administer 10 mg IV [...] Coronary arteriosclerosis; Translations: [Atherosclerotic heart disease of [place] coronary artery without angina pectoris] Onset: 02-24-2023 [...] current use of drug therapy; Translations: [Other half-way (current) drug therapy] Onset: 02-24-2023 Episodic Other aftercare (1 source) correction (current) use of insulin; Translations: [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 INSULIN] Onset: 04-16-2023 Episodic Other aftercare (1 source) 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 (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) drug therapy; Translations: [OTH INTERMEDIATE CURRENT DRUG THERAPY] Onset: 04-16-2023 Episodic Other [...] 03-10-2023 03-20-2021 Episodic Other aftercare (1 source) correction (current) use of antithrombotics/anti platelets; Translations: [INTERMEDIATE ANTITHROMBOT/ANTIPLA TLETS] Onset: 2022 Episodic Other aftercare (1 source) 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 No family history on file Normal [facility] RAD - MISCon 11-19-2023 RAD - MISC [id number] #1.00TIFF Normal [facility] Consent for Procedure/Surger yon 11-13-2023 Consent for Procedure/Surgery [id number] #1.00TIFF Normal [facility] ECG 12-Leadon 11-13-2023 ECG 12-Lead [id number] #1.00TIFF Normal [facility] Lab Reportson 11-13-2023 Lab Reports [id number] #1.00TIFF Normal [facility] Operative Reporton Operative Report [id number] #1.00TIFF Normal [facility] RAD - MISCon 11-13-2023 RAD - MISC [id number] #1.00TIFF [facility] Ambulatory Visit Summaryon 01-13-2023 Ambulatory Visit Summary Normal [facility] Ambulatory Visit Summary Normal [facility] ECG 12-Leadon 11-12-2023 ECG 12-Lead [id number] #1.00TIFF Normal [facility] ED Note-Physicianon 11-12-20 ED Note-Physician [id number] #1.00TIFF [facility] Lab Reportson 11-12-2023 Lab Reports [id number] #1.00TIFF Normal [facility] Patient Educationon 11-12-20 Patient Education Normal [facility] RAD - CT Reporton 11-12-2023 RAD - CT Report [id number] #1.00TIFF Normal [facility] Urology Office/Clinic Noteon 11-12-2023 Urology Office/Clinic Note Normal [facility] Comment on above: Result Comment: Elec tronically Signed By: Arturo DOLAN MD\.br\Date and Time Signed: 11/12/23 10:49 EST\.br\Electronically Co-Signed By: Francie Myers\.br\Date and Time Co-Signed: 11/12/23 10:44 EST Consent for Treatmenton 06-18 Consent for Treatment [id number] #1.00CD:127 Normal [facility] Discharge Instructionson Discharge Instructions [id number] #1.00CD:127 Normal [facility] ED Clinical Summaryon 2022 ED Clinical Summary Normal [facility] ED Note-Physicianon 07-13-20 ED Note-Physician Normal [facility] Comment on above: Result Comment: Elec tronically Signed By: Mathew Montana PA-C\.br\Date and Time Signed: 07/13/23 12:04 EDT\.br\Electronically Co-Signed By: Zaki Muñoz M.D.\.br\Date and Time Co-Signed: 07/13/23 12:37 EDT ED Patient Education Noteon 07-13-2023 ED Patient Education Note Normal [facility] ED Patient Summaryon 023 ED Patient Summary Normal [facility] Office Visiton 07-08-2023 Follow-up visit [id number] Yeyo Avila 1955 F Date Provider Department Center 07/08/2023 120-ALEXIA CLINE BH CARD [facility] No family history on file Level of Service:32744 [place] OFFICE/OUTPATIENT ESTABLISHED MOD MDM 30-39 MIN Reason for Visit and Comments: Hospital Follow-up [832] - Chest pain Normal [facility] Office Visiton 04-25-2023 Follow-up visit [id number] Yeyo Avila 1955 F Date Provider Department Center 04/25/2023 12186-ZAYBPWCLQJONO LOPEZ CARD [facility] No family history on file Level of Service:43020 [place] OFFICE/OUTPATIENT ESTABLISHED LOW MDM 20-[address] [facility] POINT OF CARE GLUCOSEon 03-19 Glucose [Mass/Vol] 90 mg/dL Normal 74-106 [facility] Comment on above: Performed By: #### P OCGLUC #### [facility] [address] [place] [address] Dr. Win Ardon CARDIAC STRESS TESTon 2022 [...] reported nuclear myocardial perfusion imaging. Normal [facility] CBC AUTO DIFFon 04-01-2023 BASO # 0.1 103/ul Normal 0.0-0.1 [facility] Comment on above: Performed By: #### C BC #### [facility] [address] [address] [address] Win Ardon Basophils/100 WBC (Bld) 1.3 % Normal 0.2-2.0 [facility] Comment on above: Performed By: #### C BC #### [facility] [address] [place] [address] Dr. Win Ardno EO # 0.4 103/ul Normal 0.0-0.7 [facility] Comment on above: Performed By: #### C BC #### [facility] [address] [place] [address] Dr. Win Ardon Eosinophils/100 WBC (Bld) 4.1 % Normal 0.9-7.0 [facility] Comment on above: Performed By: #### C BC #### [facility] [address] [place] [address] Dr. Win Ardon Erythrocyte distribution width (RBC) [Ratio] 13.3 % Normal 11.0-15.0 [facility] Comment on above: Performed By: #### C BC #### [facility] [address] [place] [address] Dr. Win Ardon Hematocrit (Bld) [Volume fraction] 38.9 % Normal 36.0-48.0 [facility] Comment on above: Performed By: #### C BC #### [facility] [address] [place] [address] Dr. Win Ardon Hemoglobin (Bld) [Mass/Vol] 13.2 g/dL Normal 12.0-16.0 [facility] Comment on above: Performed By: #### C BC #### [facility] [address] [place] [address] Dr. Win Ardon IG # 0.04 10e3/ul Critically high 0.00-0.03 [facility] Comment on above: Performed By: #### C BC #### [facility] [address] [place] [address] Dr. Win Ardon IG % 0.4 % Normal 0.0-0.5 [facility] Comment on above: Performed By: #### C BC #### [facility] [address] [place] [address] Dr. Win Ardon LYMPH # 3.2 103/ul Normal 1.2-3.8 [facility] Comment on above: Performed By: #### C BC #### [facility] [address] [place] [address] Dr. Win Ardon Lymphocytes/100 WBC (Bld) 34.7 % Normal 20.5-60.0 [facility] Comment on above: Performed By: #### C BC #### [facility] [address] [place] [address] Dr. Win Ardon MANUAL DIFF REQ NO Normal [facility] Comment on above: Performed By: #### C BC #### [facility] [address] [place] [address] Dr. Win Ardon MCH (RBC) [Entitic mass] 31.3 pg Normal 26.7-34.0 [facility] Comment on above: Performed By: #### C BC #### [facility] [address] [place] [address] Dr. Win Ardon MCHC (RBC) [Mass/Vol] 33.9 g/dL Normal 29.9-35.2 [facility] Comment on above: Performed By: #### C BC #### [facility] [address] [place] [address] Dr. Win Ardon MCV (RBC) [Entitic vol] 92.2 fL Normal 81.0-99.0 [facility] Comment on above: Performed By: #### C BC #### [facility] [address] [place] [address] Dr. Win Ardon MONO # 0.7 103/ul Normal 0.3-0.8 [facility] Comment on above: Performed By: #### C BC #### [facility] [address] [place] [address] Dr. Win Ardon Monocytes/100 WBC (Bld) 7.1 % Normal 1.7-12.0 [facility] Comment on above: Performed By: #### C BC #### [facility] [address] [place] [address] Dr. Win Ardon NEUT # 4.9 103/ul Normal 1.4-6.5 [facility] Comment on above: Performed By: #### C BC #### [facility] [address] [place] [address] Dr. Win Ardon Neutrophils/100 WBC (Bld) 52.4 % Normal 43.0-75.0 [facility] Comment on above: Performed By: #### C BC #### [facility] [address] [place] [address] Dr. Win Ardon Platelet mean volume (Bld) [Entitic vol] 10.6 fL Normal 9.5-13.5 [facility] Comment on above: Performed By: #### C BC #### [facility] [address] [place] [address] Dr. Win Ardon PLT 231 103/ul Normal 150-450 [facility] Comment on above: Performed By: #### C BC #### [facility] [address] [place] [address] Dr. Win Ardon RBC 4.22 106/ul Normal 4.20-5.40 [facility] Comment on above: Performed By: #### C BC #### [facility] [address] [place] [address] Dr. Win Ardon WBC 9.3 103/ul Normal 4.0-11.0 [facility] Comment on above: Performed By: #### C BC #### [facility] [address] [place] [address] ABD/PELVIS WO CONon [...] by: LISSETT ALAN Date: 2023-04-01 20:03 Normal [facility] LACTATE/LACTIC ACIDon 2022 Lactate [Moles/Vol] 1.2 mmol/L Normal 0.4-2.0 [facility] Comment on above: Performed By: #### L ACT #### [facility] [address] [place] [address] Dr. 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 Order #: [id number] CLICK HERE TO VIEW EXAM RADIOLOGY REPORT [...] Clark M.D. on 04/02/2023 at 11:10 Normal [facility] OCC BLD IMMUNO SCREENon 03-17 OCCULT BLOOD Positive Abnormal NEGATIVE [facility] Comment on above: Performed By: #### O BSCRN #### [facility] [address] [address] [address] Win Ardon PROF 14(COMP METB)on 023 Albumin [Mass/Vol] 3.8 g/dL Normal 3.4-5.0 [facility] Comment on above: Performed By: #### C MP ####[facility] [address] [address]DrOtilia Ardon Albumin/Globulin [Mass ratio] 1.1 {ratio} Normal [facility] Comment on above: Performed By: #### C MP ####[facility] [address] [id number] Ardon ALP [Catalytic activity/Vol] 99 U/L Normal 46-116 [facility] Comment on above: Performed By: #### C MP ####[facility] [address] [id number] Ardon ALT [Catalytic activity/Vol] 17 U/L Normal 14-59 [facility] Comment on above: Performed By: #### C MP ####[facility] [address] [id number] Ardon Anion gap [Moles/Vol] 13.4 mmol/L Normal [facility] Comment on above: Performed By: #### C MP ####[facility] [address] [id number] Ardon AST [Catalytic activity/Vol] 11 U/L Critically low 15-37 [facility] Comment on above: Performed By: #### C MP ####[facility] [address] [address]Dr. Win Ardon Bilirubin [Mass/Vol] 0.6 mg/dL Normal 0.2-1.0 [facility] Comment on above: Performed By: #### C MP ####[facility] [address] [address]Dr. Win Ardon Calcium [Mass/Vol] 9.1 mg/dL Normal 8.5-10.1 [facility] Comment on above: Performed By: #### C MP ####[facility] [address] [address]Dr. Win Ardon Chloride [Moles/Vol] 106 mmol/L Normal 98-107 [facility] Comment on above: Performed By: #### C MP ####[facility] [address] [place], [place] [address]Dr. Win Ardon CO2 [Moles/Vol] 29.2 mmol/L Normal 21.0-32.0 [facility] Comment on above: Performed By: #### C MP ####[facility] [address] [place], [place] [address]Dr. Win Ardon Creatinine [Mass/Vol] 0.95 mg/dL Normal 0.55-1.02 [facility] Comment on above: Performed By: #### C MP ####[facility] [address] [place], [place] [address]Dr. Win Duglas EGFR-AF COMORAN >60 Normal >=60 [facility] Comment on above: Performed By: #### C MP ####[facility] [address] [id number][address] Win Duglas EGFR-NON AF COMORAN 59 mL/min/1.73m2 Critically low >=60 [facility] Comment on above: Performed By: #### C MP ####[facility] [address] [place], [place] [address]Dr. Win Ardon Globulin (S) [Mass/Vol] 3.4 g/dL Normal [facility] Comment on above: Performed By: #### C MP ####[facility] [address] [id number][address] Win Ardon Glucose [Mass/Vol] 162 mg/dL Critically high 74-[address] [facility] Comment on above: Performed By: #### C MP ####[facility] [address] [address]Dr. Win Ardon Potassium [Moles/Vol] 3.6 mmol/L Normal 3.5-5.1 [facility] Comment on above: Performed By: #### C MP ####[facility] [address] [address]Dr. Win Duglas Protein [Mass/Vol] 7.2 g/dL Normal 6.4-8.2 [facility] Comment on above: Performed By: #### C MP ####[facility] [address] [place], [place] [address]Dr. Win Ardon Sodium [Moles/Vol] 145 mmol/L Normal 136-145 [facility] Comment on above: Performed By: #### C MP ####[facility] [address] [place], [place] [address]Dr. Claudiaaida Ardon Urea nitrogen [Mass/Vol] 14.0 mg/dL Normal 7.0-18.0 [facility] Comment on above: Performed By: #### C MP ####[facility] [address] [place], [place] [address]Dr. Win Ardon Urea nitrogen/Creatinine [Mass ratio] 14.7 mg/mg Normal [facility] Comment on above: Performed By: #### C MP ####[facility] [address] [address]Dr[address] Win Ardon PROTIMEon 04-01-2023 INR Coag (PPP) [Relative time] 1.02 {INR} [facility] Comment on above: Performed By: #### P TT, PT ####[facility] [address] [place], [place] [address]Dr. Win Ardon INR GUIDELINES SEE BELOW Normal [facility] Comment on above: Result Comment: MAGDA RED INR: 2.0 - 3.0 CONDITIONS NOT LISTED BELOW 2.5 - 3.5 FOR PROSTHETIC HEART VALVE REPLACEMENT 2.5 - 3.5 RECURRENT THROMBOSIS Performed By: #### P TT, PT ####[facility] [address] [address]Dr[address] Win Ardon PT Coag (PPP) [Time] 10.8 s Normal 9.0-11.6 [facility] Comment on above: Performed By: #### P TT, PT ####[facility] [address] [place], [place] [address]Dr. Win Ardon PTTon 04-01-2023 aPTT Coag (Bld) [Time] 26.5 s Normal 22.3-36.2 [facility] Comment on above: Performed By: #### P TT, PT ####[facility] [address] [place], [place] [address]Dr. Win Ardon TYPE AND SCREENon 04-01-2023 TYPE AND SCREEN Negative Normal [facility] Comment on above: Performed By: #### T NS ####[facility] [address] [place], [place] [address]Dr. Win Ardon CBC AUTO DIFFon 03-24-2023 BASO # 0.1 103/ul Normal 0.0-0.1 [facility] Comment on above: Performed By: #### C BC ####[facility] [address] [place], [place] [address]Dr. Win Ardon Basophils/100 WBC (Bld) 1.0 % Normal 0.2-2.0 [facility] Comment on above: Performed By: #### C BC ####[facility] [address] [place], [place] [address]Dr. Win Ardon EO # 0.3 103/ul Normal 0.0-0.7 [facility] Comment on above: Performed By: #### C BC ####[facility] [address] [place], [place] [address]Dr. Win Ardon Eosinophils/100 WBC (Bld) 3.3 % Normal 0.9-7.0 [facility] Comment on above: Performed By: #### C BC ####[facility] [address] [address]Dr. Win Ardon Erythrocyte distribution width (RBC) [Ratio] 13.2 % Normal 11.0-15.0 [facility] Comment on above: Performed By: #### C BC ####[facility] [address] [address]Dr. Win Ardon Hematocrit (Bld) [Volume fraction] 41.3 % Normal 36.0-48.0 [facility] Comment on above: Performed By: #### C BC ####[facility] V[address] [place], [place] [address]Dr. Win Ardon Hemoglobin (Bld) [Mass/Vol] 13.6 g/dL Normal 12.0-16.0 [facility] Comment on above: Performed By: #### C BC ####[facility] [address] [place], [place] [address]Dr. Win Ardon IG # 0.04 10e3/ul Critically high 0.00-0.03 [facility] Comment on above: Performed By: #### C BC ####[facility] [address] [place], [place] [address]Dr. Win Ardon IG % 0.4 % Normal 0.0-0.5 [facility] Comment on above: Performed By: #### C BC ####[facility] Npdtsd[address] [place], [place] [address]Dr. Win Ardon LYMPH # 2.2 103/ul Normal 1.2-3.8 [facility] Comment on above: Performed By: #### C BC ####[facility] [address] [place], [place] [address]Dr. Win Ardon Lymphocytes/100 WBC (Bld) 23.8 % Normal 20.5-60.0 [facility] Comment on above: Performed By: #### C BC ####[facility] Lds[address] [place], [place] [address]Dr. Win Ardon MANUAL DIFF REQ NO Normal [facility] Comment on above: Performed By: #### C BC ####[facility] [address] [id number]. Win Ardon MCH (RBC) [Entitic mass] 30.6 pg Normal 26.7-34.0 [facility] Comment on above: Performed By: #### C BC ####[facility] [address] [address]Dr. Win Duglas MCHC (RBC) [Mass/Vol] 32.9 g/dL Normal 29.9-35.2 [facility] Comment on above: Performed By: #### C BC ####[facility] B[address] [place], [place] [address]Dr. Claudiaaida Ardon MCV (RBC) [Entitic vol] 93.0 fL Normal 81.0-99.0 [facility] Comment on above: Performed By: #### C BC ####[facility] Seoc[address]cmq[address] [place], [place] [address]Dr. Win Ardon MONO # 0.7 103/ul Normal 0.3-0.8 [facility] Comment on above: Performed By: #### C BC ####[facility] [address] [place], [place] [address]Dr. Claudiaaida Ardon Monocytes/100 WBC (Bld) 7.3 % Normal 1.7-12.0 [facility] Comment on above: Performed By: #### C BC ####[facility] [address] [place], [place] [address]Dr. Claudiaaida Ardon NEUT # 5.8 103/ul Normal 1.4-6.5 [facility] Comment on above: Performed By: #### C BC ####[facility] [address] [place], [place] [address]Dr. Win Ardon Neutrophils/100 WBC (Bld) 64.2 % Normal 43.0-75.0 [facility] Comment on above: Performed By: #### C BC ####[facility] [address] [place], [place] [address]Dr. Win Ardon Platelet mean volume (Bld) [Entitic vol] 11.0 fL Normal 9.5-13.5 [facility] Comment on above: Performed By: #### C BC ####[facility] [address] [place], [place] [address]Qy. Claudiaaida Ardon PLT 243 103/ul Normal 150-450 [facility] Comment on above: Performed By: #### C BC ####[facility] [address] [place], [place] [address]By. Win Ardon RBC 4.44 106/ul Normal 4.20-5.40 [facility] Comment on above: Performed By: #### C BC ####[facility] [address] [place], [place] [address]Ct. Win Ardon WBC 9.1 103/ul Normal 4.0-11.0 [facility] Comment on above: Performed By: #### C BC ####[facility] [address] [place], [place] [address]YiOtilia Ardon LIPID PROFILEon 03-24-2023 CHOL-HDL RATIO NORM SEE BELOW Normal [facility] Comment on above: Result Comment: 3.3 - 4.4 LOW RISK 4.4 - 7.1 AVERAGE RISK 7.1 - 11.0 MODERATE RISK >11.0 HIGH RISK Performed By: #### C MP, LIPID #### [facility] [address] [address] [address] Win Ardon Cholesterol [Mass/Vol] 99 mg/dL Normal <=200 [facility] Comment on above: Performed By: #### C MP, LIPID #### [facility] [address] [address] [address] Win Ardon Cholesterol in HDL [Mass/Vol] 34 mg/dL Critically low 40-60 [facility] Comment on above: Performed By: #### C MP, LIPID #### [facility] [address] [address] [address] Win Ardon Cholesterol in LDL [Mass/Vol] 35.8 mg/dL Normal [facility] Comment on above: Performed By: #### C MP, LIPID #### [facility] [address] [address] [address] Win Ardon Cholesterol.total/Chol esterol in HDL [Mass ratio] 2.9 {ratio} Normal [facility] Comment on above: Performed By: #### C MP, LIPID #### [facility] [address] [address] [address] Win Ardon HDL NORMAL > or = 60 mg/dl - LOW CARDIOVASCULAR RISK <40 mg/dl - HIGH CARDIOVASCULAR RISK Normal [facility] Comment on above: Performed By: #### C MP, LIPID #### [facility] [address] [address] [address] Win Ardon LDL CALC NORMAL SEE BELOW Normal [facility] Comment on above: Result Comment: <100 mg/dl OPTIMAL 100 - 129 mg/dl NEAR OR ABOVE OPTIMAL 130 - 159 mg/dl BORDERLINE HIGH 160 - 189 mg/dl HIGH >190 mg/dl VERY HIGH Performed By: #### C MP, LIPID #### [facility] [address] [address] [address] Win Ardon Triglyceride [Mass/Vol] 146 mg/dL Normal <=150 [facility] Comment on above: Performed By: #### C MP, LIPID #### [facility] [address] [address] [address] Win Ardon VLDL CALC 29.2 mg/dL Normal [facility] Comment on above: Performed By: #### C MP, LIPID #### [facility] [address] [address] [address] Win Ardon PROF 14(COMP METB)on 023 Albumin [Mass/Vol] 3.9 g/dL Normal 3.4-5.0 [facility] Comment on above: Performed By: #### C MP, LIPID #### [facility] [address] [address] [address] Win Ardon Albumin/Globulin [Mass ratio] 1.1 {ratio} Normal [facility] Comment on above: Performed By: #### C MP, LIPID #### [facility] [address] [address] [address] Win Ardon ALP [Catalytic activity/Vol] 96 U/L Normal 46-116 [facility] Comment on above: Performed By: #### C MP, LIPID #### [facility] [address] [address] [address] Win Ardon ALT [Catalytic activity/Vol] 15 U/L Normal 14-59 [facility] Comment on above: Performed By: #### C MP, LIPID #### [facility] [address] [address] [address] Win Ardon Anion gap [Moles/Vol] 12.1 mmol/L Normal [facility] Comment on above: Performed By: #### C MP, LIPID #### [facility] [address] [address] [address] Win Ardon AST [Catalytic activity/Vol] 10 U/L Critically low 15-37 [facility] Comment on above: Performed By: #### C MP, LIPID #### [facility] [address] [address] [address] Win Ardon Bilirubin [Mass/Vol] 0.8 mg/dL Normal 0.2-1.0 [facility] Comment on above: Performed By: #### C MP, LIPID #### [facility] [address] [address] [address] Win Ardon Calcium [Mass/Vol] 9.1 mg/dL Normal 8.5-10.1 [facility] Comment on above: Performed By: #### C MP, LIPID #### [facility] [address] [address] [address] Win Ardon Chloride [Moles/Vol] 102 mmol/L Normal 98-107 [facility] Comment on above: Performed By: #### C MP, LIPID #### [facility] [address] [address] [address] Win Ardon CO2 [Moles/Vol] 26.0 mmol/L Normal 21.0-32.0 [facility] Comment on above: Performed By: #### C MP, LIPID #### [facility] [address] [address] [address] Win Ardon Creatinine [Mass/Vol] 0.95 mg/dL Normal 0.55-1.02 [facility] Comment on above: Performed By: #### C MP, LIPID #### [facility] [address] [address] [address] Win Ardon EGFR-AF COMORAN >60 Normal >=60 [facility] Comment on above: Performed By: #### C MP, LIPID #### [facility] [address] [address] [address] Win Ardon EGFR-NON AF COMORAN 59 mL/min/1.73m2 Critically low >=60 [facility] Comment on above: Performed By: #### C MP, LIPID #### [facility] [address] [address] [address] Win Ardon Globulin (S) [Mass/Vol] 3.7 g/dL Normal [facility] Comment on above: Performed By: #### C MP, LIPID #### [facility] [address] [address] [address] Win Ardon Glucose [Mass/Vol] 336 mg/dL Critically high 74-106 [facility] Comment on above: Performed By: #### C MP, LIPID #### [facility] [address] [address] [address] Win Ardon Potassium [Moles/Vol] 4.1 mmol/L Normal 3.5-5.1 [facility] Comment on above: Performed By: #### C MP, LIPID #### [facility] [address] [address] [address] Win Ardon Protein [Mass/Vol] 7.6 g/dL Normal 6.4-8.2 [facility] Comment on above: Performed By: #### C MP, LIPID #### [facility] [address] [address] [address] Win Ardon Sodium [Moles/Vol] 136 mmol/L Normal 136-145 [facility] Comment on above: Performed By: #### C MP, LIPID #### [facility] [address] [address] [address] Win Ardon Urea nitrogen [Mass/Vol] 10.0 mg/dL Normal 7.0-18.0 [facility] Comment on above: Performed By: #### C MP, LIPID #### [facility] [address] [place], [place] [address] Dr. Win Ardon Urea nitrogen/Creatinine [Mass ratio] 10.5 mg/mg Normal [facility] Comment on above: Performed By: #### C MP, LIPID #### [facility] [address] [place], [place] [address] Dr. Win Ardon EMS Documentationon 03-18-20 23 EMS Documentation Normal [facility] Office Visiton 03-10-2023 Follow-up visit [id number] Yeyo Avila S 1955 F Date Provider Department Center 03/10/2023 31135-C[facility]JONO [facility] No family history on file Level of Service:28061 [place] OFFICE/OUTPATIENT ESTABLISHED MOD MDM 30-39 MIN Reason for Visit and Comments: Coronary Artery Disease [187] Hypertension [163915] aneurysm of thoracic aorta [Other] Normal [facility] Coding Summary.on 02-27-2023 Coding Summary. Normal [facility] EMS Documentationon 02-28-20 23 EMS Documentation Normal [facility] EMS Documentation Normal [facility] Auto Diffon 02-24-2023 Basophils/100 WBC (Bld) 0.3 % Normal 0.0-2.0 [facility] Comment on above: Order Comment: Order Added by Discern Expert. Performed By: #### 2 047667, 24329339, 3011680, 82904513, 4532131, 82967502, 9839832 ####[facility] [address] [place] [address] Basophils/Leukocytes Auto (Bld) [Pure # fraction] 0.1 E9/L Normal 0.0-0.2 [facility] Comment on above: Order Comment: Order Added by Discern Expert. Performed By: #### 2 549316, 61318837, 4221420, 88523846, 9611765, 02217809, 5568032 ####[facility] [address] [place] [address] Eosinophils/100 WBC (Bld) 1.4 % Normal 0.0-8.0 [facility] Comment on above: Order Comment: Order Added by Discern Expert. Performed By: #### 2 756608, 20269497, 9736460, 76936799, 5378226, 63998517, 2406658 ####[facility] [address] [place] [address] Eosinophils/Leukocytes Auto (Bld) [Pure # fraction] 0.2 E9/L Normal 0.0-0.5 [facility] Comment on above: Order Comment: Order Added by Discern Expert. Performed By: #### 2 847631, 72022336, 5631342, 58063941, 9973638, 40264459, 1186775 ####[address] [address] Lymphocytes/100 WBC (Bld) 30.2 % Normal 14.0-50.0 [facility] Comment on above: Order Comment: Order Added by Discern Expert. Performed By: #### 2 491141, 67589008, 2915257, 85711343, 4891577, 03050247, 0238806 ####[address] [address] Lymphocytes/Leukocytes Auto (Bld) [Pure # fraction] 5.1 E9/L High 1.0-4.0 [facility] Comment on above: Order Comment: Order Added by Discern Expert. Performed By: #### 2 473565, 55361502, 0391906, 70455780, 6065755, 21982707, 0167553 ####[facility] [address] [place] [address] Monocytes/100 WBC (Bld) 8.3 % Normal 4.0-14.0 [facility] Comment on above: Order Comment: Order Added by Discern Expert. Performed By: #### 2 847571, 73375979, 7183347, 00538796, 5486736, 20746741, 4164178 ####[facility] [address] [place] [address] Monocytes/Leukocytes Auto (Bld) [Pure # fraction] 1.4 E9/L High 0.2-1.0 [facility] Comment on above: Order Comment: Order Added by Discern Expert. Performed By: #### 2 046167, 98794710, 3767895, 33385185, 1909552, 29437201, 7246847 ####[facility] [address] [place] [address] Neutrophils/100 WBC (Bld) 59.8 % Normal 36.0-75.0 [facility] Comment on above: Order Comment: Order Added by Discern Expert. Performed By: #### 2 929756, 44779597, 4900971, 42994410, 2683025, 63113495, 1182643 ####[facility] [address] [place] [address] Neutrophils/Leukocytes Auto (Bld) [Pure # fraction] 10.0 E9/L High 2.0-7.5 [facility] Comment on above: Order Comment: Order Added by Discern Expert. Performed By: #### 2 860368, 77488572, 7732213, 78076090, 5473268, 53462631, 3868692 ####[facility] [address] [place] [address] BMPon 02-24-2023 Anion gap [Moles/Vol] 8 mmol/L Normal 6-16 [facility] Comment on above: Performed By: #### 1 4543453, 37867355, 5881559, 5451928, 4578138 ####[facility] [address] [place] [address] Calcium [Mass/Vol] 8.4 mg/dL Low 8.9-11.1 [facility] Comment on above: Performed By: #### 1 7180679, 00858928, 6641941, 9617910, 1299139 ####[facility] [address] [place] [address] Chloride [Moles/Vol] 108 mmol/L Normal 101-111 [facility] Comment on above: Performed By: #### 1 7685326, 47257592, 8724079, 2039923, 0631711 ####[facility] [address] [place] [address] CO2 [Moles/Vol] 25 mmol/L Normal 21-31 [facility] Comment on above: Performed By: #### 1 4349070, 32088254, 0339522, 8853994, 0073909 ####[facility] [address] [place] [address] Creatinine [Mass/Vol] 1.2 mg/dL Normal 0.5-1.3 [facility] Comment on above: Performed By: #### 1 0937057, 83744770, 6484333, 9125340, 4021047 ####[facility] [address] [place] [address] Glucose [Mass/Vol] 102 mg/dL Normal 55-199 [facility] Comment on above: Result Comment: If t his glucose result represents a fasting glucose, interpretation should refer to the following reference range: 55-99 mg/dL Performed By: #### 1 0761973, 33869889, 9312217, 6098895, 3128323 ####[facility] [address] [place] [address] Potassium [Moles/Vol] 3.4 mmol/L Low 3.5-5.3 [facility] Comment on above: Performed By: #### 1 8220387, 43439719, 5519877, 4114860, 9872819 ####[facility] [address] [place] [address] Sodium [Moles/Vol] 138 mmol/L Normal 135-145 [facility] Comment on above: Performed By: #### 1 2846197, 41707746, 5261143, 7221397, 7192094 ####[facility] [address] [place] [address] Urea nitrogen [Mass/Vol] 30 mg/dL High 5-21 [facility] Comment on above: Performed By: #### 1 6653845, 88391010, 3620684, 5042611, 0591773 ####[facility] [address] [place] [address] Urea nitrogen/Creatinine [Mass ratio] 25 No Units High 10-20 [facility] Comment on above: Performed By: #### 1 0299812, 76457567, 3486388, 8347763, 8517155 ####[facility] [address] [place] [address] Creatinine [Mass/Vol] 1.4 mg/dL High 0.5-1.3 [facility] Comment on above: Performed By: #### 2 522228, 45136834, 1991786, 84837977, 6417367, 13535944, 1281594 ####[facility] [address] [place] [address] Urea nitrogen [Mass/Vol] 30 mg/dL High 5-21 [facility] Comment on above: Performed By: #### 2 130727, 26189924, 6621640, 18591496, 5109033, 20718228, 7310032 ####[facility] [address] [place] [address] Urea nitrogen/Creatinine [Mass ratio] 21 No Units High 10-20 [facility] Comment on above: Performed By: #### 2 625617, 93583568, 5350159, 04187626, 6414229, 35162544, 3983906 ####[facility] [address] [place] [address] Anion gap [Moles/Vol] 11 mmol/L Normal 6-16 [facility] Comment on above: Performed By: #### 2 186614, 55058218, 4891608, 48344414, 3073211, 46084956, 6612488 ####[facility] [address] [place] [address] Calcium [Mass/Vol] 8.9 mg/dL Normal 8.9-11.1 [facility] Comment on above: Performed By: #### 2 884613, 80860933, 6456207, 78934206, 0900811, 63422180, 5062855 ####[facility] [address] [place] [address] Chloride [Moles/Vol] 103 mmol/L Normal 101-111 [facility] Comment on above: Performed By: #### 2 257878, 11214195, 1589827, 05665822, 7745216, 43424727, 9775506 ####[facility] [address] [place] [address] CO2 [Moles/Vol] 26 mmol/L Normal 21-31 [facility] Comment on above: Performed By: #### 2 135270, 17840129, 6172074, 29133414, 1661415, 48208645, 1036119 ####[facility] [address] [place] [address] Glucose [Mass/Vol] 118 mg/dL Normal 55-199 [facility] Comment on above: Result Comment: If t his glucose result represents a fasting glucose, interpretation should refer to the following reference range: 55-99 mg/dL Performed By: #### 2 131386, 52669708, 5125474, 19328700, 3407668, 13029866, 3973637 ####[facility] [address] [place] [address] Potassium [Moles/Vol] 3.0 mmol/L Low 3.5-5.3 [facility] Comment on above: Performed By: #### 2 794337, 72796659, 4745941, 44579272, 5545682, 14739265, 2553977 ####[facility] [address] [place] [address] Sodium [Moles/Vol] 137 mmol/L Normal 135-145 [facility] Comment on above: Performed By: #### 2 450279, 77961878, 6153162, 13707803, 0084099, 77803268, 1960353 ####[facility] [address] [place] [address] CBC w/ Auto Diffon Erythrocyte distribution width (RBC) [Ratio] 13.5 % Normal 10.9-14.2 [facility] Comment on above: Performed By: #### 2 992597, 08430669, 6628498, 40738151, 4322153, 51534393, 6918544 ####[facility] [address] [place] [address] Hematocrit (Bld) [Volume fraction] 40.8 % Normal 34.0-46.0 [facility] Comment on above: Performed By: #### 2 880561, 95333657, 4220426, 79798444, 2435291, 18940884, 0959677 ####[facility] [address] [place] [address] Hemoglobin (Bld) [Mass/Vol] 13.8 g/dL Normal 12.0-16.0 [facility] Comment on above: Performed By: #### 2 279654, 39967429, 9758895, 96601383, 4742703, 63003430, 6242593 ####[facility] [address] [place] [address] MCH (RBC) [Entitic mass] 29.6 pg Normal 27.0-34.0 [facility] Comment on above: Performed By: #### 2 207728, 27981252, 1660664, 98802138, 3204051, 11823208, 2525982 ####[facility] [address] [place] [address] MCHC (RBC) [Mass/Vol] 33.9 g/dL Normal 31.4-36.0 [facility] Comment on above: Performed By: #### 2 256256, 27775260, 4203053, 83600195, 1779976, 69749047, 1526625 ####[facility] [address] [place] [address] MCV (RBC) [Entitic vol] 87.3 fL Normal 80.0-100.0 [facility] Comment on above: Performed By: #### 2 312262, 31293063, 0608150, 27606283, 5978367, 84394362, 6294795 ####[facility] [address] [place] [address] Platelet mean volume (Bld) [Entitic vol] 9.3 fL Normal 6.4-10.8 [facility] Comment on above: Performed By: #### 2 017719, 87780604, 2490203, 85151479, 1368169, 86971401, 6864598 ####[facility] [address] [place] [address] Platelets (Bld) [#/Vol] 234.0 E9/L Normal 150.0-500.0 [facility] Comment on above: Performed By: #### 2 140435, 61581807, 1179820, 72324929, 6128950, 90869412, 1799592 ####[facility] [address] [place] [address] RBC (Bld) [#/Vol] 4.7 E12/L Normal 4.3-5.9 [facility] Comment on above: Performed By: #### 2 438413, 33956023, 2431689, 15401408, 9729109, 12070772, 0476502 ####[facility] [address] [place] [address] WBC corrected for nucl RBC Auto (Bld) [#/Vol] 16.7 E9/L High 4.0-11.0 [facility] Comment on above: Result Comment: Slid e reviewed by AD. Performed By: #### 2 889427, 00209079, 5157811, 99391154, 7227707, 02556816, 3001839 ####[facility] [address] [place] [address] CHEMISTRYOrdered By: Lab ROP User on 02-24-2023 Glucose [Mass/Vol] 144 mg/dL High 55 - 99 mg/dL [facility] POC Subsection Comment on above: Result Comment: Edilia arleth Meter POC Device SN [id number] Invalid Interpretation Code [facility] POC Subsection POC User ID [id number] Invalid Interpretation Code [facility] POC Subsection POC Username KRISTI MADDEN Invalid Interpretation Code [facility] POC Subsection Glucose [Mass/Vol] 76 mg/dL Normal 55 - 99 mg/dL [facility] POC Subsection Comment on above: Result Comment: Edilia arleth Meter POC Device SN [id number] Invalid Interpretation Code [facility] POC Subsection POC User ID [id number] Invalid Interpretation Code [facility] POC Subsection POC Username KRISTI MADDEN Invalid Interpretation Code [facility] POC Subsection CHEMISTRYOrdered By: SYSTEM SYSTEM on 02-24-2023 Potassium [Moles/Vol] 3.7 mmol/L Normal 3.5 - 5.3 mmol/L [facility] Remisol Anion gap [Moles/Vol] 8 mmol/L Normal 6 - 16 mEq/L [facility] Remisol Calcium [Mass/Vol] 8.4 mg/dL Low 8.9 - 11. 1 mg/dL [facility] Chloride [Moles/Vol] 108 mmol/L Normal 101 - 1 11 mmol/L [facility] Remisol CO2 [Moles/Vol] 25 mmol/L Normal 21 - 31 mmol/L [facility] Remisol Creatinine [Mass/Vol] 1.2 mg/dL Normal 0.5 - 1.3 mg/dL [facility] Remisol GFR/1.73 sq M.predicted among blacks MDRD (S/P/Bld) [Vol rate/Area] 55 mL/min/1.73 m2 Low >=59mL/min/1 .73 m2 [facility] Chem S GFR/1.73 sq M.predicted among non-blacks MDRD (S/P/Bld) [Vol rate/Area] 45 mL/min/1.73 m2 Low >=59mL/min/1 .73 m2 [facility] Chem S Glucose [Mass/Vol] 102 mg/dL Normal [...] 38 mL/min/1.73 m2 Low >=59mL/min/1 .73 m2 [facility] Chem S Globulin (S) [Mass/Vol] 2.8 g/dL [...] CT Head or Brain w/o Contrast Normal [facility] CT Spine Cervical w/o Contra ston 02-24-2023 CT Spine Cervical w/o Contrast Normal [facility] Capillary Glucose POCon 02-15 Glucose [Mass/Vol] 144 mg/dL High 55-99 [facility] Comment on above: Result Comment: Edilia arleth Meter Performed By: #### 2 [id number] ####[facility] [address] [place] [address] Glucose [Mass/Vol] 76 mg/dL Normal 55-99 [facility] Comment on above: Result Comment: Edilia arleth Meter Performed By: #### 2 [id number] ####[facility] [address] [place] [address] Consent for Treatmenton 02-15 Consent for Treatment [id number] 5#1.00CD:127 Normal [facility] Discharge Instructionson Discharge Instructions [id number] 8#1.00CD:127 Normal [facility] ED Clinical Summaryon 2022 ED Clinical Summary Normal [facility] ED Note-Physicianon 02-25-20 ED Note-Physician Normal [facility] Comment on above: Result Comment: Elec tronically Signed By: Timoteo PRADO, Jordy\.br\Date and Time Signed: 02/24/23 02:05 EDT ED Patient Education Noteon 02-24-2023 ED Patient Education Note Normal [facility] ED Patient Summaryon 023 ED Patient Summary Normal [facility] ED Traumaon 02-24-2023 ED Trauma [id number] 1#1.00CD:127 Normal [facility] HEMATOLOGYOrdered By: SYSTEM SYSTEM on 02-24-2023 [...] 16.7 E9/L High 4.0 - 11.0 E9/L [facility] HemeAutoSS Comment on above: Result Comment: Slid e reviewed by AD. Barb Hopkinsc Panelon 02-24-2023 Albumin [Mass/Vol] 3.7 g/dL Normal 3.3-5.0 [facility] Comment on above: Performed By: #### 2 862833, 99006860, 2117037, 77901617, 8739680, 92445732, 2976952 ####[facility] [address] [place] [address] Albumin/Globulin (S) [Mass conc ratio] 1.3 Normal 1.1-2.2 [facility] Comment on above: Performed By: #### 2 204130, 84142048, 1771708, 63544533, 0917116, 50883713, 7688036 ####[facility] [address] [place] [address] ALP [Catalytic activity/Vol] 84 Int._Unit/L Normal 21-98 [facility] Comment on above: Performed By: #### 2 702807, 37692343, 6402548, 49709443, 0642433, 02193139, 4502686 ####[facility] [address] [place] [address] ALT No additional P-5'-P [Catalytic activity/Vol] 13 Int._Unit/L Normal 6-46 [facility] Comment on above: Performed By: #### 2 247600, 37215892, 2699379, 59057637, 5474819, 90706894, 3907065 ####[facility] [address] [place] [address] AST [Catalytic activity/Vol] 14 Int._Unit/L Normal 5-43 [facility] Comment on above: Performed By: #### 2 275471, 57360214, 0859513, 41970644, 4254516, 80649821, 1791001 ####[facility] [address] [place] [address] Bilirubin [Mass/Vol] 1.1 mg/dL Normal 0.0-1.1 [facility] Comment on above: Performed By: #### 2 966094, 64061216, 9453330, 59850553, 3020001, 07435028, 2494812 ####[facility] [address] [place] [address] Bilirubin.direct [Mass/Vol] 0.3 mg/dL Normal 0.1-0.4 [facility] Comment on above: Performed By: #### 2 019866, 12326370, 5098057, 21463514, 4167437, 04620016, 4291400 ####[facility] [address] [place] [address] Bilirubin.indirect [Mass or moles/Vol] 0.8 mg/dL Normal 0.1-0.9 [facility] Comment on above: Performed By: #### 2 927539, 58051454, 3606733, 14057019, 7017682, 71901715, 2287368 ####[facility] [address] [place] [address] Globulin (S) [Mass/Vol] 2.8 g/dL Normal 1.4-4.0 [facility] Comment on above: Performed By: #### 2 844383, 45415111, 2146762, 88692682, 1763286, 71191126, 0585560 ####[facility] [address] [place] [address] Protein [Mass/Vol] 6.5 g/dL Normal 6.0-7.8 [facility] Comment on above: Performed By: #### 2 407194, 68871939, 5654798, 55475664, 5610837, 11455713, 9613541 ####[facility] [address] [place] [address] Inpatient Clinical Summaryon 02-24-2023 Inpatient Clinical Summary Normal [facility] Inpatient Patient Summaryon 02-24-2023 Inpatient Patient Summary Normal [facility] Inpatient Patient Summary Normal [facility] Interdisciplinary Note - Aaron e Manageron 02-24-2023 Interdisciplinary Note - Financial Aid Coordinator Normal [facility] Comment on above: Result Comment: Elec tronically Signed By: Freda Dodson\Date and Time Signed: 02/24/23 11:14 EDT Interdisciplinary Note - PTo n 02-24-2023 Interdisciplinary Note - PT Normal [facility] Magnesiumon 02-24-2023 Magnesium [Mass/Vol] 2.1 mg/dL Normal 1.3-2.4 [facility] Comment on above: Performed By: #### 1 3534307, 40989143, 0623597, 8683190, 4700687 ####[facility] [address] [place] [address] Monitor Recordon 02-24-2023 Monitor Record [id number] 4#1.00CD:127 Normal [facility] Monitor Record [id number] 0#1.00CD:127 Normal [facility] Monitor Record [id number] 6#1.00CD:127 Normal [facility] PT & PTTon 02-24-2023 aPTT Coag (PPP) [Time] 23.9 second(s) Low 25.1-36.5 [facility] Comment on above: Result Comment: Para [...] the same coagulation reagent and instrumentation as [facility]. Currently there are no coagulation studies available worldwide for children to 14 days, and no normal ranges. Heparin therapeutic range (represented by Anti-Factor Xa activity of 0.2 - 0.4 U/mL) corresponds to PTT of 56.6 - 109.0 sec. Performed By: #### 2 636544, 33254349, 7021272, 79703422, 4175528, 10869684, 5756944 ####[facility] [address] [place] [address] INR Coag (PPP) [Relative time] 1.2 {INR} Invalid Interpretation Code [facility] Comment on above: Result Comment: INR results are specifically intended to assess patients stabilized on long-term Anticoagulation therapy suggested INR?s ?Less Intensive Anticoagulation? 2.0 ? 3.0Conventional Range 3.0 ? 4.5 Performed By: #### 2 405449, 48581915, 9748156, 93281956, 0008058, 07840468, 9009062 ####[facility] [address] [place] [address] PT Coag (PPP) [Time] 13.7 second(s) High 9.4-12.5 [facility] Comment on above: Result Comment: 15 [...] the same coagulation reagent and instrumentation as [facility]. Currently there are no coagulation studies available worldwide for children to 14 days, and no normal ranges. Performed By: #### 2 122143, 89015463, 2808942, 80013353, 8196718, 26809692, 2744219 ####[facility] [address] [place] [address] Patient Education - Texton 0 02-24-2023 Patient Education - Text Normal [facility] Potassiumon 02-24-2023 Potassium [Moles/Vol] 3.7 mmol/L Normal 3.5-5.3 [facility] Comment on above: Order Comment: Pleas e call me with result. Thanks Performed By: #### 2 357705 ####[facility] [address] [place] [address] Pre-Arrival Noteon 3 Pre-Arrival Note Normal [facility] Progress Note-Physicianon Progress Note-Physician Normal [facility] Comment on above: Result Comment: Elec tronically Signed By: PERLA PRADO, Leann\.br\Date and Time Signed: 02/24/23 09:47 EDT RAD - Preliminary Cat Scan R eporton 02-24-2023 RAD - Preliminary Cat Scan Report [id number] 6#1.00CD:127 Normal [facility] RAD - Preliminary Cat Scan Report [id number] 5#1.00CD:127 Normal [facility] TSH With T4fr Reflexon 02-24 TSH Qn 0.97 m[IU]/L Normal 0.34-5.60 [facility] Comment on above: Performed By: #### 1 8179866, 69010583, 4118477, 5064310, 7561814 ####[facility] [address] [place] [address] Troponinon 02-24-2023 Troponin I.cardiac [Mass/Vol] 7.40 pg/mL Low 10.10-27.10 [facility] Comment on above: Result Comment: The 95% CI (Confidence Interval) PPV (Positive Predictive Value) for myocardial infarction in females is 38 pg/mL, in males 51 pg/mL. The results should be used in conjunction with clinical conditions of myocardial infarction.(Access High Sensitivity Troponin I Instructions For Use, Mary Cherry, June 2018) Performed By: #### 1 5519839, 94642160, 5809295, 8314567, 2201719 ####[facility] [address] [place] [address] Troponin 0 Hr.on 02-24-2023 Troponin I.cardiac [Mass/Vol] 8.00 pg/mL Low 10.10-27.10 [facility] Comment on above: Result Comment: The 95% CI (Confidence Interval) PPV (Positive Predictive Value) for myocardial infarction in females is 38 pg/mL, in males 51 pg/mL. The results should be used in conjunction with clinical conditions of myocardial infarction.(Access High Sensitivity Troponin I Instructions For Use, [employer], June 2018) Performed By: #### 2 279586, 56719841, 5372064, 44015185, 6484306, 27861401, 6775466 ####[facility] [address] [place] [address] Troponin 3 Hr.on 02-24-2023 Troponin I.cardiac [Mass/Vol] 6.70 pg/mL Low 10.10-27.10 [facility] Comment on above: Result Comment: The 95% CI (Confidence Interval) PPV (Positive Predictive Value) for myocardial infarction in females is 38 pg/mL, in males 51 pg/mL. The results should be used in conjunction with clinical conditions of myocardial infarction.(Access High Sensitivity Troponin I Instructions For Use, [employer], June 2018) Performed By: #### 1 3055305 ####[facility] [address] [place] [address] UA With Cult Reflexon 2022 Bacteria LM Ql (Urine sed) TRACE Normal Trace [facility] Comment on above: Performed By: #### 1 1879526 ####[facility] [address] [place] [address] Bilirubin Ql (U) Negative Normal Negative [facility] Comment on above: Performed By: #### 1 2360307 ####[facility] [address] [place] [address] Clarity (U) SL CLOUDY Abnormal Clear [facility] Comment on above: Performed By: #### 1 9247557 ####[facility] [address] [place] [address] Color (U) YELLOW Normal Yellow [facility] Comment on above: Performed By: #### 1 4603709 ####[facility] [address] [place] [address] Crystals LM Ql (Urine sed) Present Normal [facility] Comment on above: Performed By: #### 1 9871192 ####[address] [address] Epithelial cells.squamous LM.HPF (Urine sed) [#/Area] /[HPF] Normal 0-2 [facility] Comment on above: Performed By: #### 1 5747580 ####[address] [address] Glucose Test strip (U) [Mass/Vol] Negative Normal Negative [facility] Comment on above: Performed By: #### 1 7325868 ####[address] [address] Hemoglobin Ql (U) 3+ Abnormal Negative [facility] Comment on above: Performed By: #### 1 4189472 ####[address] [address] Ketones (U) [Mass/Vol] TRACE Abnormal Negative Fi [facility] Comment on above: Performed By: #### 1 4454559 ####[address] [address] [place].plasma/[place] .RBC (Bld) [Mass ratio] 21-30 Abnormal 0-3 [facility] Comment on above: Performed By: #### 1 0504067 ####[facility] [address] [place] [address] Mucus Ql (Urine sed) TRACE Normal [facility] Comment on above: Performed By: #### 1 7246742 ####[address] [address] Nitrite Ql (U) Negative Normal Negative [facility] Comment on above: Performed By: #### 1 0694612 ####[address] [address] pH (U) 6.0 [pH] Invalid Interpretation Code 5.0-9.0 [facility] Comment on above: Performed By: #### 1 8502775 ####[address] [address] Protein (U) [Mass/Vol] 1+ Abnormal Negative [facility] Comment on above: Performed By: #### 1 0760095 ####[address] [address] Specific gravity (U) [Rel density] 1.020 Invalid Interpretation Code 1.005-1.030 [facility] Comment on above: Performed By: #### 1 3526972 ####[address] [address] Type of Urine collection method Clean Catch Normal [facility] Comment on above: Performed By: #### 1 4698237 ####[address] [address] Urobilinogen Qn (U) 0.2 {John'U}/dL Normal 0.0-1.0 [facility] Comment on above: Performed By: #### 1 8944005 ####[address] [address] WBC Auto Ql (U) TRACE Abnormal Negative [facility] Comment on above: Performed By: #### 1 2326063 ####[address] [address] WBC casts LM.LPF (Urine sed) [#/Area] 4-10 Normal [facility] Comment on above: Performed By: #### 1 2310991 ####[address] [address] WBC LM.HPF (Urine sed) [#/Area] 0-5 Normal 0-5 [facility] Comment on above: Performed By: #### 1 3456502 ####[address] [place] [address] URINALYSISOrdered By: Dave Jenkins on 02-24-2023 Bacteria [...] Interpretation Code Negative [facility] UA Auto SS [place].plasma/[place] .RBC (Bld) [Mass ratio] 21-30 /HPF Invalid [...] [facility] UA Auto SS Urobilinogen Qn (U) 0.5676543 {John'U}/dL Normal 0.0 - 1.0 EU/dL [facility] UA Auto SS WBC Auto Ql (U) Trace *ABN* (02/24/23 2:06 AM) Invalid Interpretation Code Negative [facility] UA Auto SS WBC casts LM.LPF (Urine sed) [#/Area] 4-10 (02/24/23 2:06 AM) Normal [facility] UA Auto SS WBC LM.HPF (Urine sed) [#/Area] 0-5 /HPF Normal 0-5/HPF [facility] UA Auto SS XR Chest Single Viewon 02-24 XR Chest Single View Normal [facility] XR Spine Lumbosacral 2 or 3 Viewson 02-24-2023 XR Spine Lumbosacral 2 or 3 Views Normal [facility] eGFRon 02-24-2023 GFR/1.73 sq M.predicted among blacks MDRD (S/P/Bld) [Vol rate/Area] 55 mL/min/1.73 m2 Low >=59 [facility] Comment on above: Order Comment: Order added by Discern Expert. Result Comment: eGFR is race adjusted. AA=. Performed By: #### 1 8738587, 76595632, 3120690, 3273707, 6268921 ####[facility] [address] [place] [address] GFR/1.73 sq M.predicted among non-blacks MDRD (S/P/Bld) [Vol rate/Area] 45 mL/min/1.73 m2 Low >=59 [facility] Comment on above: Order Comment: Order added by Discern Expert. Result Comment: Professor Of History kuldip kidney disease could be indicated at eGFR's of less than 60 mL/min/1.73m2. Kidney failure is indicated at less than 15 mL/min/1.73m2. Performed By: #### 1 5081301, 23263898, 6625768, 0391969, 7072950 ####[facility] [address] [place] [address] GFR/1.73 sq M.predicted among blacks MDRD (S/P/Bld) [Vol rate/Area] 46 mL/min/1.73 m2 Low >=59 [facility] Comment on above: Order Comment: Order added by Discern Expert. Result Comment: eGFR is race adjusted. AA=. Performed By: #### 2 391299, 80582289, 7011108, 44788796, 7869189, 94460059, 1637936 ####[facility] [address] [place] [address] GFR/1.73 sq M.predicted among non-blacks MDRD (S/P/Bld) [Vol rate/Area] 38 mL/min/1.73 m2 Low >=59 [facility] Comment on above: Order Comment: Order added by Discern Expert. Result Comment: Professor Of History kuldip kidney disease could be indicated at eGFR's of less than 60 mL/min/1.73m2. Kidney failure is indicated at less than 15 mL/min/1.73m2. Performed By: #### 2 441023, 40998996, 1861625, 44479537, 9330430, 27164391, 2415286 ####[facility] [address] [place] [address] [facility] SARS-CoV-2 (COVID-19) RNA OSVALDO+probe Ql (Unsp spec) Not detected Normal NOT DETECTED [facility] Comment on above: Result Comment: This test is not yet approved or cleared by the [place] FDA. When there are no FDA-approved or cleared tests available, and other criteria are met, FDA can make tests available under an emergency access mechanism called an Emergency Use Authorization (EUA). The EUA for this test is supported by the Burning Machine Operator of Health and Human Service's (HHS's) declaration [...] SARS-CoV-2. Performed By: #### C VDTBH #### [facility] [address] [place], [place] [address] Dr. Win Ardon SYMPTOMATIC COVID-19 ANTIGEN on 02-14-2023 EUA Statement SEE BELOW Normal [facility] Comment on above: Result Comment: This [...] sooner. Performed By: #### C VDAGS #### [facility] [address] [place], [place] [address] Dr. Win Ardon SARS-CoV-2 (COVID-19) RNA OSVALDO+probe Ql (Unsp spec) Negative Normal NEGATIVE [facility] Comment on above: Performed By: #### C VDAGS #### [facility] [address] [place] [address] [address] [address] Win Ardon XR KNEE RT 4V [...] MIKAEL GUZMAN Date: 2022-10-05 19:58 Normal [facility] Creatinine (Bld) [Mass/Vol]O rdered By: Ese Tan on 02-18-2022 Creatinine [Mass/Vol] 0.8 mg/dL 0.6-1.3 [facility] Comment on above: ER/ESD physician is notified/shown all ISTAT results.Critical values may be confirmed by laboratory testing ifdeemed necessary by ER attending doctor. ISTAT XRay CREon 02-18-2022 Creatinine [Mass/Vol] 0.8 mg/dL Normal 0.6-1.3 [facility] Comment on above: Result Comment: ER/E SD physician is notified/shown all ISTAT results. Critical values may be confirmed by laboratory testing if deemed necessary by ER attending doctor. Performed By: #### B CLAY SHOP SUPERVISOR, PTT, CKMB, LIPASE, CK, TROP, CBC, PT, CMP #### [address] ISTAT GFR ( > 60 Normal [facility] Comment on above: Result Comment: GFR estimated reference range: According to KDOQI guidelines, <60 ml/min/1.73m2 is sufficient to diagnose a patient with chronic kidney disease. PERFORMED BY: [place] [address] PATHOLOGIST NATIONAL BUSINESS DIRECTOR WALDO WANG M.D. Performed By: #### B CLAY SHOP SUPERVISOR, PTT, CKMB, LIPASE, CK, TROP, CBC, PT, CMP #### [address] ISTAT GFR (Non- Am > 60 Normal [facility] Comment on above: Performed By: #### B CLAY SHOP SUPERVISOR, PTT, CKMB, LIPASE, CK, TROP, CBC, PT, CMP #### [address] MR abdomen wo/w conon 2021 MR abdomen wo/w con [facility] [place] [address] [place] [address] MRI Report Signed Patient: Yeyo Avila MR#: [id number] : 1955 Acct:[id number] Age/Sex: 66 / F ADM Date: 02/18/22 Loc: MR Room: Type: [facility] CLI Attending Dr: Ese Tan MD Ordering [...] Warren Jr., D.O.02/18/2022 4:02 PM Dictation Location: [place] [address] Transcribed By: [facility] 02/18/22 1602 Dictated By: Javi Warren Jr, DO 02/18/22 1556 Signed By: 02/18/22 1602 Normal [facility] No Panel InformationOrdered By: Ese Tan on 02-18-2022 POC Estimated GFR > 60 [facility] Comment on above: GFR estimated refere nce range: According to KDOQI guidelines, <60 ml/min/1.73m2 is sufficient to diagnose a patient with chronic kidney disease. POC Estimated GFR Non- Amer > 60 [facility] Cardiovascular Lab Reporton 03-22-2021 Cardiovascular Lab Report [facility] MR #: [id number] Department of Physician: Radha Carter M.D. Division of Service Date: 03/21/2021 Cardiology Birthdate: 1955 Adult Cardiovascular [address] [place] [place] [address] Cardiovascular Laboratory Report FINAL IMPRESSIONS: 1. 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 2. Patent stent in the second diagonal branch of the left anterior descending coronary artery with ohbe-kg-ziekgyhw in-stent restenosis. 3. Otherwise, nonobstructive coronary arteries [...] bilateral selective coronary angiography, placement of a 6-Swiss MynxGrip closure device. METHODS: After risks, benefits, and alternatives were explained, written informed consent was obtained. The patient was prepped and draped in the usual sterile fashion over the right groin. Using 1% lidocaine solution, local infiltration anesthesia was achieved. Using a modified Seldinger technique, a micropuncture kit, an ultrasound guidance access to the right common femoral vein and artery was obtained. A 6-Swiss x 11 cm sheath were placed in each. Limited femoral angiography was performed via the micropuncture kit prior to upsizing through the 6-Swiss sheath in the artery. A Cazares catheter [...] the procedure. All catheters were removed. A 6-Swiss MynxGrip closure device was deployed per protocol [...] Pardo M.D. Date Trans: 03/22/2021 05:11 Sean/yoel [id number] cc: Alexia Cline, MSN, CONSULTING TECHNICAL DIRECTOR-C Department Of Surgery [place] [address] [facility] [address] Robin Ponce M.D. [address] [place] [address] [facility] CT angio abdomen pelvison CT angio abdomen pelvis [facility] [place] [address] [place] [id number] Scan Report Signed Patient: Yeyo Avila MR#: [id number] : 1955 Acct:[id number] Age/Sex: 65 / F ADM Date: 03/19/21 Loc: ER Room: Type: [facility] ER Attending Dr: Ordering Provider: Ismael Santillan DO Date of Service: 03/19/21 CT/CT angio chest: r/o dissection ([id number]) CT/CT angio abdomen pelvis: R/O DISSECTION Copies [...] Martinez Jr., M.D.03/20/2021 8:52 AM Dictation Location: [place] [address] Transcribed By: [facility] 03/20/2152 Dictated By: Gavin Martinez Jr, MD 03/20/2141 Signed By: 03/20/2152 Normal [facility] Dipstick and Microscopicon 0 03-20-2021 Appearance (U) Clear Normal Clear [facility] Comment on above: Order Comment: Name Collection Type:: Clean-Voided Midstream Performed By: #### A DDONUAPLUS #### [facility] [address] [place] [address] [place] Bacteria,Urine None Seen Normal None Seen [facility] Comment on above: Order Comment: Name Collection Type:: Clean-Voided Midstream Performed By: #### A DDONUAPLUS #### [facility] [address] [place] [id number] [place] Bilirubin,Urine Negative Normal Negative [facility] Comment on above: Order Comment: Name Collection Type:: Clean-Voided Midstream Performed By: #### A DDONUAPLUS #### [facility] [address] [place] [address] [place] Color (U) Yellow Normal Yellow [facility] Comment on above: Order Comment: Name Collection Type:: Clean-Voided Midstream Performed By: #### A DDONUAPLUS #### [facility] [address] [place] [id number] [place] Glucose Ql (U) 500 mg/dL High Normal [facility] Comment on above: Order Comment: Name Collection Type:: Clean-Voided Midstream Performed By: #### A DDONUAPLUS #### [facility] [address] [place] [id number] [place] Hyaline Casts,Urine 0-8 Normal 0-8 [facility] Comment on above: Order Comment: Name Collection Type:: Clean-Voided Midstream Result Comment: PERF ORMED BY: [place] [address] PATHOLOGIST NATIONAL BUSINESS DIRECTOR WALDO WANG M.D. Performed By: #### A DDONUAPLUS #### [place] [address] [place] Ketones Ql (U) Trace High Negative [facility] Comment on above: Order Comment: Name Collection Type:: Clean-Voided Midstream Performed By: #### A DDONUAPLUS #### [address] Leukocyte esterase Test strip Ql (U) Negative Normal Negative [facility] Comment on above: Order Comment: Name Collection Type:: Clean-Voided Midstream Performed By: #### A DDONUAPLUS #### [place] [address] [place] Nitrite,Urine Negative Normal Negative [facility] Comment on above: Order Comment: Name Collection Type:: Clean-Voided Midstream Performed By: #### A DDONUAPLUS #### [place] [address] [place] Occult Blood,Urine Negative Normal Negative [facility] Comment on above: Order Comment: Name Collection Type:: Clean-Voided Midstream Performed By: #### A DDONUAPLUS #### [place] [address] [place] pH (U) 6.0 [pH] Normal 5.0-9.0 [facility] Comment on above: Order Comment: Name Collection Type:: Clean-Voided Midstream Performed By: #### A DDONUAPLUS #### [place] [address] [place] Protein,Urine Trace High Negative [facility] Comment on above: Order Comment: Name Collection Type:: Clean-Voided Midstream Performed By: #### A DDONUAPLUS #### [place] [address] [place] RBC,Urine 1-2 Normal 0-4 [facility] Comment on above: Order Comment: Name Collection Type:: Clean-Voided Midstream Performed By: #### A DDONUAPLUS #### [facility] [address] [place] [address] Renal Epithelial Cells,Urine None Seen Normal 0-1 [facility] Comment on above: Order Comment: Name Collection Type:: Clean-Voided Midstream Performed By: #### A DDONUAPLUS #### [address] Specificy [place],Urine > 1.050 High 1.001-1.030 [facility] Comment on above: Order Comment: Name Collection Type:: Clean-Voided Midstream Performed By: #### A DDONUAPLUS #### [address] Squamous Epithelial Cell,Urine 3-4 High 0-2 [facility] Comment on above: Order Comment: Name Collection Type:: Clean-Voided Midstream Performed By: #### A DDONUAPLUS #### [address] Urobilinogen,Urine Normal Normal Normal [facility] Comment on above: Order Comment: Name Collection Type:: Clean-Voided Midstream Performed By: #### A DDONUAPLUS #### [address] WBC,Urine 1-2 Normal 0-4 [facility] Comment on above: Order Comment: Name Collection Type:: Clean-Voided Midstream Performed By: #### A DDONUAPLUS #### [address] ECG 12 lead ECGon 03-20-2021 ECG 12 lead ECG [facility] [place] [address] Electrocardiograph Report Signed Patient: Yeyo Avila MR#: [id number] : 1955 Acct:[id number] Age/Sex: 65 / F ADM Date: 03/19/21 Loc: ER Room: Type: [facility] ER Attending Dr: Ordering Provider: Ismael [...] Electronically Signed By:TIMOTEO COOPER MD Transcribed By: [facility] Dictated By: Timoteo Cooper MD 03/19/212224 Signed By: 03/21/21 0905 Normal [facility] XR chest 2V*on 03-20-2021 XR chest 2V* [facility] [place] [address] XRay Report Signed Patient: Yeyo Avila MR#: [id number] : 1955 Acct:[id number] Age/Sex: 65 / F ADM Date: 03/19/21 Loc: ER Room: Type: [facility] ER Attending Dr: Ordering Provider: Ismael [...] Martinez Jr., M.D.03/20/2021 8:53 AM Dictation Location: [place] [address] Transcribed By: [facility] 03/20/21 0853 Dictated By: Gavin Martinez Jr, MD 03/20/21 0852 Signed By: 03/20/21 0853 Normal [facility] B-Type Natriuretic Peptideon 03-19-2021 Natriuretic peptide B (Bld) [Mass/Vol] 30.0 pg/mL Normal 5-100 [facility] Comment on above: Result Comment: PERF ORMED BY: [place] [address] PATHOLOGIST NATIONAL BUSINESS DIRECTOR WALDO WANG M.D. Performed By: #### B CLAY SHOP SUPERVISOR, PTT, CKMB, LIPASE, CK, TROP, CBC, PT, CMP #### [address] Complete Blood Count Auto Di ffon 03-19-2021 Basophils (Bld) [#/Vol] 0.2 10*3/uL Normal 0.0-0.2 [facility] Comment on above: Result Comment: PERF ORMED BY: [place] [address] PATHOLOGIST NATIONAL BUSINESS DIRECTOR WALDO WANG M.D. Performed By: #### B CLAY SHOP SUPERVISOR, PTT, CKMB, LIPASE, CK, TROP, CBC, PT, CMP #### [address] Basophils/100 WBC (Bld) 0.9 % Normal . [facility] Comment on above: Performed By: #### B CLAY SHOP SUPERVISOR, PTT, CKMB, LIPASE, CK, TROP, CBC, PT, CMP #### [place] [address] [place] Eosinophils (Bld) [#/Vol] 0.2 10*3/uL Normal 0.0-0.45 [facility] Comment on above: Performed By: #### B CLAY SHOP SUPERVISOR, PTT, CKMB, LIPASE, CK, TROP, CBC, PT, CMP #### [address] Eosinophils/100 WBC (Bld) 1.1 % Normal . [facility] Comment on above: Performed By: #### B CLAY SHOP SUPERVISOR, PTT, CKMB, LIPASE, CK, TROP, CBC, PT, CMP #### [address] Erythrocyte distribution width (RBC) [Ratio] 13.7 % Normal 11.9-15.3 [facility] Comment on above: Performed By: #### B CLAY SHOP SUPERVISOR, PTT, CKMB, LIPASE, CK, TROP, CBC, PT, CMP #### [address] Hematocrit (Bld) [Volume fraction] 43.7 % Normal 34.0-46.4 [facility] Comment on above: Performed By: #### B CLAY SHOP SUPERVISOR, PTT, CKMB, LIPASE, CK, TROP, CBC, PT, CMP #### [address] Hemoglobin (Bld) [Mass/Vol] 14.8 g/dL Normal 11.8-15.4 [facility] Comment on above: Performed By: #### B CLAY SHOP SUPERVISOR, PTT, CKMB, LIPASE, CK, TROP, CBC, PT, CMP #### [address] Lymphocytes (Bld) [#/Vol] 4.2 10*3/uL Normal 1.00-4.8 [facility] Comment on above: Performed By: #### B CLAY SHOP SUPERVISOR, PTT, CKMB, LIPASE, CK, TROP, CBC, PT, CMP #### [address] Lymphocytes/100 WBC (Bld) 23.0 % Normal . [facility] Comment on above: Performed By: #### B CLAY SHOP SUPERVISOR, PTT, CKMB, LIPASE, CK, TROP, CBC, PT, CMP #### [address] MCH (RBC) [Entitic mass] 29.8 pg Normal 24.7-34.3 [facility] Comment on above: Performed By: #### B CLAY SHOP SUPERVISOR, PTT, CKMB, LIPASE, CK, TROP, CBC, PT, CMP #### [address] MCV (RBC) [Entitic vol] 87.7 fL Normal 80-100 [facility] Comment on above: Performed By: #### B CLAY SHOP SUPERVISOR, PTT, CKMB, LIPASE, CK, TROP, CBC, PT, CMP #### [address] Mean Corpuscular HGB Conc 33.9 g/dL Normal 32.0-35.0 [facility] Comment on above: Performed By: #### B CLAY SHOP SUPERVISOR, PTT, CKMB, LIPASE, CK, TROP, CBC, PT, CMP #### [address] Monocytes (Bld) [#/Vol] 1.1 10*3/uL High 0.0-0.8 [facility] Comment on above: Performed By: #### B CLAY SHOP SUPERVISOR, PTT, CKMB, LIPASE, CK, TROP, CBC, PT, CMP #### [address] Monocytes/100 WBC (Bld) 6.1 % Normal . [facility] Comment on above: Performed By: #### B CLAY SHOP SUPERVISOR, PTT, CKMB, LIPASE, CK, TROP, CBC, PT, CMP #### [address] Neutrophils (Bld) [#/Vol] 12.4 10*3/uL High 1.8-7.7 [facility] Comment on above: Performed By: #### B CLAY SHOP SUPERVISOR, PTT, CKMB, LIPASE, CK, TROP, CBC, PT, CMP #### [address] Neutrophils/100 WBC (Bld) 68.9 % Normal . [facility] Comment on above: Performed By: #### B CLAY SHOP SUPERVISOR, PTT, CKMB, LIPASE, CK, TROP, CBC, PT, CMP #### [place] [address] [place] Nucleated RBC/100 WBC (Bld) [Ratio] 0.2 % Normal 0-0.5 [facility] Comment on above: Performed By: #### B CLAY SHOP SUPERVISOR, PTT, CKMB, LIPASE, CK, TROP, CBC, PT, CMP #### [address] Platelet mean volume (Bld) [Entitic vol] 9.2 fL Normal 6.3-10.7 [facility] Comment on above: Performed By: #### B CLAY SHOP SUPERVISOR, PTT, CKMB, LIPASE, CK, TROP, CBC, PT, CMP #### [address] Platelets (Bld) [#/Vol] 340 10*3/uL Normal 150-450 [facility] Comment on above: Performed By: #### B CLAY SHOP SUPERVISOR, PTT, CKMB, LIPASE, CK, TROP, CBC, PT, CMP #### [address] RBC (Bld) [#/Vol] 4.98 10*6/uL Normal 3.60-5.00 [facility] Comment on above: Performed By: #### B CLAY SHOP SUPERVISOR, PTT, CKMB, LIPASE, CK, TROP, CBC, PT, CMP #### [address] WBC (Bld) [#/Vol] 18.0 10*3/uL High 4.5-11.0 [facility] Comment on above: Performed By: #### B CLAY SHOP SUPERVISOR, PTT, CKMB, LIPASE, CK, TROP, CBC, PT, CMP #### [address] Comprehensive Metabolic Pane talia 03-19-2021 Albumin [Mass/Vol] 4.7 g/dL Normal 3.2-5.5 [facility] Comment on above: Performed By: #### B CLAY SHOP SUPERVISOR, PTT, CKMB, LIPASE, CK, TROP, CBC, PT, CMP #### [address] Albumin/Globulin [Mass ratio] 1.4 {ratio} Normal [facility] Comment on above: Performed By: #### B CLAY SHOP SUPERVISOR, PTT, CKMB, LIPASE, CK, TROP, CBC, PT, CMP #### [address] ALP [Catalytic activity/Vol] 83 U/L Normal 32-92 [facility] Comment on above: Performed By: #### B CLAY SHOP SUPERVISOR, PTT, CKMB, LIPASE, CK, TROP, CBC, PT, CMP #### [address] ALT [Catalytic activity/Vol] 15 U/L Normal 10-60 [facility] Comment on above: Performed By: #### B CLAY SHOP SUPERVISOR, PTT, CKMB, LIPASE, CK, TROP, CBC, PT, CMP #### [address] AST [Catalytic activity/Vol] 15 U/L Normal 10-42 [facility] Comment on above: Performed By: #### B CLAY SHOP SUPERVISOR, PTT, CKMB, LIPASE, CK, TROP, CBC, PT, CMP #### [address] Bilirubin [Mass/Vol] 1.6 mg/dL High 0.3-1.2 [facility] Comment on above: Result Comment: Samp les from patients who have taken Naproxen have shown spurious elevation in Total Bilirubin levels. A metabolite of Naproxen, O-desmethylnaproxen, has been shown to interfere with the Jendrassik-Grof method for measuring Total Bilirubin. Performed By: #### B CLAY SHOP SUPERVISOR, PTT, CKMB, LIPASE, CK, TROP, CBC, PT, CMP #### [address] Calcium [Mass/Vol] 10.1 mg/dL Normal 8.2-10.2 [facility] Comment on above: Performed By: #### B CLAY SHOP SUPERVISOR, PTT, CKMB, LIPASE, CK, TROP, CBC, PT, CMP #### [address] Chloride [Moles/Vol] 99 mmol/L Normal 95-114 [facility] Comment on above: Performed By: #### B CLAY SHOP SUPERVISOR, PTT, CKMB, LIPASE, CK, TROP, CBC, PT, CMP #### [place] [address] [place] CO2 [Moles/Vol] 23.1 mmol/L Normal 22.0-30.0 [facility] Comment on above: Performed By: #### B CLAY SHOP SUPERVISOR, PTT, CKMB, LIPASE, CK, TROP, CBC, PT, CMP #### [facility] [address] Creatinine [Mass/Vol] 1.07 mg/dL High 0.44-1.03 [facility] Comment on above: Performed By: #### B CLAY SHOP SUPERVISOR, PTT, CKMB, LIPASE, CK, TROP, CBC, PT, CMP #### [facility] [address] Creatinine Clr Calc Pharmacy 64.26 [facility] Comment on above: Performed By: #### B CLAY SHOP SUPERVISOR, PTT, CKMB, LIPASE, CK, TROP, CBC, PT, CMP #### [facility] [address] Estimated GFR ( Aleah > 60 [facility] Comment on above: Result Comment: GFR estimated reference range: According to KDOQI guidelines, <60 ml/min/1.73m2 is sufficient to diagnose a patient with chronic kidney disease. Performed By: #### B CLAY SHOP SUPERVISOR, PTT, CKMB, LIPASE, CK, TROP, CBC, PT, CMP #### [facility] [address] Estimated GFR (Non- Am 52 [facility] Comment on above: Performed By: #### B CLAY SHOP SUPERVISOR, PTT, CKMB, LIPASE, CK, TROP, CBC, PT, CMP #### [facility] [address] Globulin (S) [Mass/Vol] 3.3 g/dL [facility] Comment on above: Performed By: #### B CLAY SHOP SUPERVISOR, PTT, CKMB, LIPASE, CK, TROP, CBC, PT, CMP #### [facility] [address] Glucose [Mass/Vol] 264 mg/dL High 70-100 [facility] Comment on above: Result Comment: [facility] Glucose Reference Range is dependent on time and content of last meal. Glucose of more than 200 mg/dL in a nonstressed, ambulatory subject supports the diagnosis of Diabetes Mellitus. ADA recommended reference range Performed By: #### B CLAY SHOP SUPERVISOR, PTT, CKMB, LIPASE, CK, TROP, CBC, PT, CMP #### [address] Potassium [Moles/Vol] 3.8 mmol/L Normal 3.5-5.1 [facility] Comment on above: Performed By: #### B CLAY SHOP SUPERVISOR, PTT, CKMB, LIPASE, CK, TROP, CBC, PT, CMP #### [address] Protein [Mass/Vol] 8.0 g/dL High 6.1-7.9 [facility] Comment on above: Performed By: #### B CLAY SHOP SUPERVISOR, PTT, CKMB, LIPASE, CK, TROP, CBC, PT, CMP #### [address] Sodium [Moles/Vol] 137 mmol/L Normal 136-146 [facility] Comment on above: Performed By: #### B CLAY SHOP SUPERVISOR, PTT, CKMB, LIPASE, CK, TROP, CBC, PT, CMP #### [address] Urea nitrogen [Mass/Vol] 29 mg/dL High 9-23 [facility] Comment on above: Performed By: #### B CLAY SHOP SUPERVISOR, PTT, CKMB, LIPASE, CK, TROP, CBC, PT, CMP #### [address] Creatine Kinaseon 03-19-2021 CK [Catalytic activity/Vol] 42 U/L Normal 22-269 [facility] Comment on above: Performed By: #### B CLAY SHOP SUPERVISOR, PTT, CKMB, LIPASE, CK, TROP, CBC, PT, CMP #### [address] Creatinine Kinase MBon 03-19 CK.MB [Mass/Vol] 1.3 ng/mL Normal 0.6-6.3 [facility] Comment on above: Performed By: #### B CLAY SHOP SUPERVISOR, PTT, CKMB, LIPASE, CK, TROP, CBC, PT, CMP #### [facility] [address] CKMB Relative Index 3.0 % High 0.00-2.50 [facility] Comment on above: Performed By: #### B CLAY SHOP SUPERVISOR, PTT, CKMB, LIPASE, CK, TROP, CBC, PT, CMP #### [facility] [address] ECG 12 lead ECGon 03-19-2021 ECG 12 lead ECG [facility] [place] [address] [place] [address] Electrocardiograph Report Signed Patient: Yeyo Avila MR#: [id number] : 1955 Acct:[id number] Age/Sex: 65 / F ADM Date: 03/19/21 Loc: ER Room: Type: [facility] ER Attending Dr: Ordering Provider: Ismael [...] MD 03/19/212112 Signed By: 03/21/21 0905 Normal [facility] Lipaseon 03-19-2021 Lipase [Catalytic activity/Vol] 21.0 U/L Low 22-51 [facility] Comment on above: Result Comment: PERF ORMED BY: [place] [address] PATHOLOGIST NATIONAL BUSINESS DIRECTOR WALDO WANG M.D. Performed By: #### B CLAY SHOP SUPERVISOR, PTT, CKMB, LIPASE, CK, TROP, CBC, PT, CMP #### [facility] [address] Partial Thromboplastin Timeo n 03-19-2021 aPTT Coag (Bld) [Time] 26.1 s Normal 25.1-36.5 [facility] Comment on above: Result Comment: PERF ORMED BY: [place] [address] PATHOLOGIST NATIONAL BUSINESS DIRECTOR WALDO WANG M.D. Performed By: #### B CLAY SHOP SUPERVISOR, PTT, CKMB, LIPASE, CK, TROP, CBC, PT, CMP #### [facility] [address] Prothrombin Time INRon 03-19 INR Coag (PPP) [Relative time] 1.2 {INR} Normal [facility] Comment on above: Result Comment: INR Therapeutic [...] 3 - 4.5 Performed By: #### B CLAY SHOP SUPERVISOR, PTT, CKMB, LIPASE, CK, TROP, CBC, PT, CMP #### [facility] [address] PT Coag (PPP) [Time] 13.6 s High 9.0-12.9 [facility] Comment on above: Performed By: #### B CLAY SHOP SUPERVISOR, PTT, CKMB, LIPASE, CK, TROP, CBC, PT, CMP #### [facility] [address] Troponin I(TnI)on 03-19-2021 Troponin I.cardiac [Mass/Vol] ng/mL Normal 0-0.02 [facility] Comment on above: Result Comment: EBONY AR Cut off value > or equal to 0.03 ng/mL in conjunction with clinical conditions of myocardial infarction. (www.escardio.org/guidelines) PERFORMED BY: [place] [address] PATHOLOGIST NATIONAL BUSINESS DIRECTOR WALDO WANG M.D. Performed By: #### B CLAY SHOP SUPERVISOR, PTT, CKMB, LIPASE, CK, TROP, CBC, PT, CMP #### [facility] [address] Basic Metab w/rfx MGon 09-01 (cont.) Normal [facility] Comment on above: Result Comment: Aver age GFR for 60-69 years old: 85 mL/min/1.73sq m Chronic Kidney Disease: <60 mL/min/1.73sq m Kidney failure: <15 mL/min/1.73sq m eGFR calculated using average adult body mass. Additional eGFR calculator available at: http://www.[employer]/multiple_crcl_2012.htm Performed By: #### E RTPF #### [address] [address] Information Consultant: Dheeraj Garcia MD Anion gap [Moles/Vol] 13 mmol/L Normal 9-17 [facility] Comment on above: Performed By: #### E RTPF #### [address] [address] Information Consultant: Dheeraj Garcia MD Calcium [Mass/Vol] 8.8 mg/dL Normal 8.6-10.4 [facility] Comment on above: Performed By: #### E RTPF #### [address] [address] Information Consultant: Dheeraj Garcia MD Chloride [Moles/Vol] 106 mmol/L Normal 98-107 [facility] Comment on above: Performed By: #### E RTPF #### [address] [address] Information Consultant: Dheeraj Garcia MD CO2 [Moles/Vol] 21 mmol/L Normal 20-31 [facility] Comment on above: Performed By: #### E RTPF #### [address] [address] Information Consultant: Dheeraj Garcia MD Creatinine [Mass/Vol] 0.53 mg/dL Normal 0.50-0.90 [facility] Comment on above: Performed By: #### E RTPF #### [address] [address] Information Consultant: Dheeraj Garcia MD GFR, Amer >60 Normal >60 [facility] Comment on above: Performed By: #### E RTPF #### [address] [address] Information Consultant: Dheeraj Garcia MD GFR,non Amer >60 Normal >60 [facility] Comment on above: Performed By: #### E RTPF #### [address] [address] Information Consultant: Dheeraj Garcia MD Glucose [Mass/Vol] 169 mg/dL High 70-99 [facility] Comment on above: Performed By: #### E RTPF #### [address] [address] Information Consultant: Dheeraj Garcia MD Potassium [Moles/Vol] 4.0 mmol/L Normal 3.7-5.3 [facility] Comment on above: Performed By: #### E RTPF #### [address] [address] Information Consultant: Dheeraj Garcia MD Sodium [Moles/Vol] 140 mmol/L Normal 135-144 [facility] Comment on above: Performed By: #### E RTPF #### [address] [address] Information Consultant: Dheeraj Garcia MD Urea nitrogen [Mass/Vol] 10 mg/dL Normal 8-23 [facility] Comment on above: Performed By: #### E RTPF #### [facility] [employer] [address] [place], [place] [id number] Information Consultant: Dheeraj Garcia MD BUN/CRE Ratio NOT REPORTED Normal 9-20 [facility] Comment on above: Performed By: #### E RTPF #### [facility] [employer] [address] [place], [place] [id number] Information Consultant: Dheeraj Garcia MD Staging: NOT REPORTED Normal [facility] Comment on above: Performed By: #### E RTPF #### [facility] [address] [place], [place] [id number] Information Consultant: Dheeraj Garcia MD Basic Metabolic Panel w/ Ref martín to MGon 09-01-2020 Anion gap [Moles/Vol] 13 mmol/L 9 - 17 mmol/L [place], [place] Bun/Cre Ratio NOT REPORTED [place], [place] Calcium [Mass/Vol] 8.8 mg/dL 8.6 - 10. 4 mg/dL [place] Chloride [Moles/Vol] 106 mmol/L 98 - 10 7 mmol/L [place] CO2 [Moles/Vol] 21 mmol/L 20 - 31 mmol/L [place] Creatinine [Mass/Vol] 0.53 mg/dL 0.5 - 0.9 mg/dL [place] GFR >60 >60 mL/min [place], [place] GFR Non- >60 >60 mL/min [place] GFR/1.73 sq M predicted among non-blacks MDRD (S/P/Bld) [Vol rate/Area] [place], [place] Comment on above: Average GFR for 60-6 9 years old: 85 mL/min/1.73sq m Chronic Kidney Disease: <60 mL/min/1.73sq m Kidney failure: <15 mL/min/1.73sq m eGFR calculated using average adult body mass. Additional eGFR calculator available at: http://www.[employer]/multiple_crcl_2012.htm GFR/1.73 sq M predicted among non-blacks MDRD (S/P/Bld) [Vol rate/Area] NOT REPORTED [place], [place] Glucose [Mass/Vol] 169 mg/dL High 70 - 99 mg/dL [place], [place] Interpretation and review of laboratory results Abnormal [place] Potassium [Moles/Vol] 4.0 mmol/L 3.7 - 5.3 mmol/L [place] Sodium [Moles/Vol] 140 mmol/L 135 - 144 mmol/L [place] Urea nitrogen [Mass/Vol] 10 mg/dL 8 - 23 mg/dL [place] CBC auto differentialon 08-17 Basophils (Bld) [#/Vol] 0.10 10*3/uL [place] Basophils/100 WBC (Bld) 1 % 0 - 2 % [place] Differential Type NOT REPORTED [place] Eosinophils (Bld) [#/Vol] 0.25 10*3/uL [place] Eosinophils/100 WBC (Bld) 3 % 1 - 4 % [place] Erythrocyte distribution width (RBC) [Ratio] 14.0 % 11.8 - 14.4 % [place] Hematocrit (Bld) [Volume fraction] 40.7 % 36.3 - 47.1 % [place] Hemoglobin (Bld) [Mass/Vol] 12.7 g/dL 11.9 - 15.1 g/dL [place] Immature granulocytes (Bld) [#/Vol] 0.06 10*3/uL [place] Immature granulocytes (Bld) [#/Vol] 1 % High 0 [place] Interpretation and review of laboratory results Abnormal [place] Lymphocytes (Bld) [#/Vol] 2.12 10*3/uL [place] Lymphocytes/100 WBC (Bld) 23 % Low 24 - 43 % [place] MCH (RBC) [Entitic mass] 28.1 pg 25.2 - 33.5 pg [place] MCHC (RBC) [Mass/Vol] 31.2 g/dL 28.4 - 34.8 g/dL [place] MCV (RBC) [Entitic vol] 90.0 fL 82.6 - 102.9 fL [place] Monocytes (Bld) [#/Vol] 0.68 10*3/uL [place] Monocytes/100 WBC (Bld) 7 % 3 - 12 % [place] Platelet mean volume (Bld) [Entitic vol] 10.6 fL 8.1 - 13.5 fL [place] Platelets (Bld) [#/Vol] NOT REPORTED [place] Platelets (Bld) [#/Vol] 251 10*3/uL [place] RBC (Bld) [#/Vol] 4.52 10*6/uL 3.95 - 5.1 1 m/uL [place] RBC morphology finding Nom (Bld) NOT REPORTED [place] Segmented neutrophils/100 WBC (Bld) 65 % 36 - 65 % [place] Segs Absolute 6.18 [place] WBC (Bld) [#/Vol] 0.0 10*3/uL 0.0 per 10 0 WBC [place] WBC (Bld) [#/Vol] 9.4 10*3/uL [place] WBC Morphology NOT REPORTED [place] CBC with Diffon 09-01-2020 Abs. Basophil 0.10 k/uL Normal 0.00-0.20 [facility] Comment on above: Performed By: #### C DP, HCG, ALCB, BMPX, LIPR, GLYHGB #### [facility] [address] [place] [address] Information Consultant: Dheeraj Garcia MD Abs.Imm.Granulocyte 0.06 k/uL Normal 0.00-0.30 [facility] Comment on above: Performed By: #### C DP, HCG, ALCB, BMPX, LIPR, GLYHGB #### [facility] [employer] [address] [place] [address] Information Consultant: Dheeraj Garcia MD Abs.Neutrophil (Seg) 6.18 k/uL Normal 1.50-8.10 [facility] Comment on above: Performed By: #### C DP, HCG, ALCB, BMPX, LIPR, GLYHGB #### [facility] [employer] [address] [place] [address] Information Consultant: Dheeraj Garcia MD Basophils/100 WBC (Bld) 1 % Normal 0-2 [facility] Comment on above: Performed By: #### C DP, HCG, ALCB, BMPX, LIPR, GLYHGB #### [facility] [employer] [address] [place] [address] Information Consultant: Dheeraj Garcia MD Eosinophils (Bld) [#/Vol] 0.25 10*3/uL Normal 0.00-0.44 [facility] Comment on above: Performed By: #### C DP, HCG, ALCB, BMPX, LIPR, GLYHGB #### [facility] [employer] [address] [place] [address] Information Consultant: Dheeraj Garcia MD Eosinophils/100 WBC (Bld) 3 % Normal 1-4 [facility] Comment on above: Performed By: #### C DP, HCG, ALCB, BMPX, LIPR, GLYHGB #### [facility] [employer] [address] [place] [address] Information Consultant: Dheeraj Garcia MD Erythrocyte distribution width (RBC) [Ratio] 14.0 % Normal 11.8-14.4 [facility] Comment on above: Performed By: #### C DP, HCG, ALCB, BMPX, LIPR, GLYHGB #### [facility] [employer] [address] [place] [address] Information Consultant: Dheeraj Garcia MD Hematocrit (Bld) [Volume fraction] 40.7 % Normal 36.3-47.1 [facility] Comment on above: Performed By: #### C DP, HCG, ALCB, BMPX, LIPR, GLYHGB #### [address] [address] Information Consultant: Dheeraj Garcia MD Hemoglobin (Bld) [Mass/Vol] 12.7 g/dL Normal 11.9-15.1 [facility] Comment on above: Performed By: #### C DP, HCG, ALCB, BMPX, LIPR, GLYHGB #### [place] [address] Information Consultant: Dheeraj Garcia MD Immature granulocytes (Bld) [#/Vol] 1 % High 0 [facility] Comment on above: Performed By: #### C DP, HCG, ALCB, BMPX, LIPR, GLYHGB #### [place] [address] Information Consultant: Dheeraj Garcia MD Lymphocytes (Bld) [#/Vol] 2.12 10*3/uL Normal 1.10-3.70 [facility] Comment on above: Performed By: #### C DP, HCG, ALCB, BMPX, LIPR, GLYHGB #### [place] [address] Information Consultant: Dheeraj Garcia MD Lymphocytes/100 WBC (Bld) 23 % Low 24-43 [facility] Comment on above: Performed By: #### C DP, HCG, ALCB, BMPX, LIPR, GLYHGB #### [place] [address] Information Consultant: Dheeraj Garcia MD MCH (RBC) [Entitic mass] 28.1 pg Normal 25.2-33.5 [facility] Comment on above: Performed By: #### C DP, HCG, ALCB, BMPX, LIPR, GLYHGB #### [address] [address] Information Consultant: Dheeraj Garcia MD MCHC (RBC) [Mass/Vol] 31.2 g/dL Normal 28.4-34.8 [facility] Comment on above: Performed By: #### C DP, HCG, ALCB, BMPX, LIPR, GLYHGB #### [address] [address] Information Consultant: Dheeraj Garcia MD MCV (RBC) [Entitic vol] 90.0 fL Normal 82.6-102.9 [facility] Comment on above: Performed By: #### C DP, HCG, ALCB, BMPX, LIPR, GLYHGB #### [place] [address] Information Consultant: Dheeraj Garcia MD Monocytes (Bld) [#/Vol] 0.68 10*3/uL Normal 0.10-1.20 [facility] Comment on above: Performed By: #### C DP, HCG, ALCB, BMPX, LIPR, GLYHGB #### [address] [address] Information Consultant: Dheeraj Garcia MD Monocytes/100 WBC (Bld) 7 % Normal 3-12 [facility] Comment on above: Performed By: #### C DP, HCG, ALCB, BMPX, LIPR, GLYHGB #### [address] [address] Information Consultant: Dheeraj Garcia MD Neutrophil (Seg) 65 % Normal 36-65 [facility] Comment on above: Performed By: #### C DP, HCG, ALCB, BMPX, LIPR, GLYHGB #### [place] [address] Information Consultant: Dheeraj Garcia MD NRBC Automated 0.0 per 100 WBC Normal 0.0 [facility] Comment on above: Performed By: #### C DP, HCG, ALCB, BMPX, LIPR, GLYHGB #### [address] [address] Information Consultant: Dheeraj Garcia MD Platelet mean volume (Bld) [Entitic vol] 10.6 fL Normal 8.1-13.5 [facility] Comment on above: Performed By: #### C DP, HCG, ALCB, BMPX, LIPR, GLYHGB #### [address] [address] Information Consultant: Dheeraj Garcia MD Platelets (Bld) [#/Vol] 251 10*3/uL Normal 138-453 [facility] Comment on above: Performed By: #### C DP, HCG, ALCB, BMPX, LIPR, GLYHGB #### [address] [address] Information Consultant: Dheeraj Garcia MD RBC (Bld) [#/Vol] 4.52 10*6/uL Normal 3.95-5.11 [facility] Comment on above: Performed By: #### C DP, HCG, ALCB, BMPX, LIPR, GLYHGB #### [address] [address] Information Consultant: Dheeraj Garcia MD WBC (Bld) [#/Vol] 9.4 10*3/uL Normal 3.5-11.3 [facility] Comment on above: Performed By: #### C DP, HCG, ALCB, BMPX, LIPR, GLYHGB #### [address] [address] Information Consultant: Dheeraj Garcia MD Auto Diff Performed NOT REPORTED Normal [facility] Comment on above: Performed By: #### C DP, HCG, ALCB, BMPX, LIPR, GLYHGB #### [facility] [address] [place] [address] Information Consultant: Dheeraj Garcia MD Platelets (Bld) [#/Vol] NOT REPORTED Normal [facility] Comment on above: Performed By: #### C DP, HCG, ALCB, BMPX, LIPR, GLYHGB #### [facility] [address] [place] [address] Information Consultant: Dheeraj Garcia MD RBC morphology finding Nom (Bld) NOT REPORTED Normal [facility] Comment on above: Performed By: #### C DP, HCG, ALCB, BMPX, LIPR, GLYHGB #### [facility] [address] [place] [address] Information Consultant: Dheeraj Garcia MD WBC Morphology NOT REPORTED Normal [facility] Comment on above: Performed By: #### C DP, HCG, ALCB, BMPX, LIPR, GLYHGB #### [facility] [address] [place] [address] Information Consultant: Dheeraj Garcia MD Echo Completeon 09-01-2020 [facility] Incoming Cardio Results From [facility]/ - 09/01/2020 3:37 PM EDT Transthoracic Echocardiography Report (TTE) Patient Name DENDINGER Date of Study 09/01/2020 YEYO Date of 1955 Gender Female Age 64 year(s) Race Room Number 0234 Height: 65 inch, 165.1 cm Corporate ID [id number] Weight: 232 pounds, 105.2 kg # Patient Acct [id number] BSA: 2.11 m^2 BMI: 38.61 # kg/m^2 MR # [id number] On Site Construction Superintendent GarfieldRimmaPérez Interpreting Physician Abundio Aguilar Fellow Referring Nurse Practitioner Interpreting Referring Physician Moisés Rodríguez Fellow Type of Study TTE procedure:2D Echocardiogram, M-Mode, Doppler, Color Doppler, Bubble Study. Procedure Date Date: 09/01/2020 Start: 07:38 AM Study Location: [facility] Technical Quality: Fair visualization Comments:Syncope, R/o CVA [...] Wall E' velocity:0.07 m/s Lateral Wall E/E':8.8 [facility] [place] Transthoracic Echocardiography Report (TTE) Patient Name MARGARITA Date of Study 09/01/2020 YEYO Date of 1955 Gender Female Age 64 year(s) Race Room Number 0234 Height: 65 inch, 165.1 cm Corporate ID [id number] Weight: 232 pounds, 105.2 kg # Patient Acct [id number] BSA: 2.11 m^2 BMI: 38.61 # kg/m^2 MR # [id number] On Site Construction Superintendent Pérez Lao Interpreting Physician Abundio Aguilar Fellow Referring Nurse Practitioner Interpreting Referring Physician Moisés Rodríguez Fellow Type of Study TTE procedure:2D Echocardiogram, M-Mode, Doppler, Color Doppler, Bubble Study. Procedure Date Date: 09/01/2020 Start: 07:38 AM Study Location: [facility] Technical Quality: Fair visualization Comments:Syncope, R/o CVA [...] Wall E' velocity:0.07 m/s Lateral Wall E/E':8.8 [place] Ethanolon 09-01-2020 Ethanol [Mass/Vol] mg/dL <10 mg/dL [place] Ethanol percent <0.010 <0.010 % [place] Ethanol Alcoholon 09-01-2020 Ethanol [Mass/Vol] mg/dL Normal <10 [facility] Comment on above: Performed By: #### E RTPF #### [employer] [address] [place] [address] Information Consultant: Dheeraj Garcia MD Ethanol percent <0.010 Normal <0.010 [facility] Comment on above: Performed By: #### E RTPF #### [employer] [address] [place], [place] [id number] Information Consultant: Dheeraj Garcia MD HCG Qualitative, Serumon hCG Qual Negative NEGATIVE [place] Comment on above: Specimens with hCG l evels near the threshold of the test (25 mIU/mL) may give a negative or indeterminate result. In such cases, another test should be performed with a new specimen in 48-72 hours. If early is suspected clinically in this setting, correlation with quantitative serum b-hCG level is suggested. [employer] has confirmed the use of plasma for this test. This has not been cleared or approved by the U.S. Food and Drug Administration. The FDA has determined that such clearance is not necessary. HCG Screen, Bloodon 09-01-20 20 HCG Qn Negative Normal NEG [facility] Comment on above: Result Comment: Spec imens with hCG levels near the threshold of the test (25 mIU/mL) may give a negative or indeterminate result. In such cases, another test should be performed with a new specimen in 48-72 hours. If early is suspected clinically in this setting, correlation with quantitative serum b-hCG level is suggested. [employer] has confirmed the use of plasma for this test. This has not been cleared or approved by the U.S. Food and Drug Administration. The FDA has determined that such clearance is not necessary. Performed By: #### E RTPF #### [facility] [employer] [address] [place], [place] [id number] Information Consultant: Dheeraj Garcia MD Hematologyon 09-01-2020 WBC (Bld) [#/Vol] DUPLICATE ORDER per 100 WBC [place] Hemoglobin A1Con 09-01-2020 HbA1c (Bld) [Mass fraction] 151 mg/dL Normal [facility] Comment on above: Result Comment: The ADA and AACC recommend providing the estimated average glucose result to permit better patient understanding of their HBA1c result. Performed By: #### E RTPF #### [facility] [address] [place], [place] [phone] Information Consultant: Dheeraj Garcia MD HbA1c (Bld) [Mass fraction] 6.9 % High 4.0-6.0 [facility] Comment on above: Performed By: #### E RTPF #### [address] [address] Information Consultant: Dheeraj Garcia MD Hemoglobin A1con 09-01-2020 Glucose [Mass/Vol] 151 mg/dL [place] Comment on above: The ADA and AACC rec ommend providing the estimated average glucose result to permit better patient understanding of their HBA1c result. HbA1c (Bld) [Mass fraction] 6.9 % High 4 - 6 % [place] Interpretation and review of laboratory results Abnormal [place] Lipid Profileon 09-01-2020 Cholesterol [Mass/Vol] 123 mg/dL Normal <200 [facility] Comment on above: Result Comment: Cholesterol Guidelines: <200 Desirable 200-240 Borderline >240 Undesirable Performed By: #### E RTPF #### [address] [address] Information Consultant: Dheeraj Garcia MD Cholesterol in HDL [Mass/Vol] 43 mg/dL Normal >40 [facility] Comment on above: Result Comment: HDL Guidelines: <40 Undesirable 40-59 Borderline >59 Desirable Performed By: #### E RTPF #### [address] [address] Information Consultant: Dheeraj Garcia MD Cholesterol in LDL [Mass/Vol] 50 mg/dL Normal 0-130 [facility] Comment on above: Result Comment: LDL Guidelines: <100 Desirable 100-129 Near to/above Desirable 130-159 Borderline >159 Undesirable Direct (measured) LDL and calculated LDL are not interchangeable tests. Performed By: #### E RTPF #### [address] [address] Information Consultant: Dheeraj Garcia MD Cholesterol.total/Chol esterol in HDL [Mass ratio] 2.9 {ratio} Normal <5 [facility] Comment on above: Performed By: #### E RTPF #### [facility] [address] [place] [address] Information Consultant: Dheeraj Garcia MD Triglyceride [Mass/Vol] 149 mg/dL Normal <150 [facility] Comment on above: Result Comment: Triglyceride Guidelines: <150 Desirable 150-199 Borderline 200-499 High >499 Very high Based on AHA Guidelines for fasting triglyceride, August 2012. Performed By: #### E RTPF #### [facility] [address] [place] [address] Information Consultant: Dheeraj Garcia MD Cholesterol in VLDL [Mass/Vol] NOT REPORTED Normal -30 [facility] Comment on above: Performed By: #### E RTPF #### [facility] [employer] [address] [place] [address] Information Consultant: Dheeraj Garcia MD Lipid panel - fastingon 08-17 Cholesterol [Mass/Vol] 123 mg/dL <200 [place] Comment on above: Cholesterol Guidelines: <200 Desirable 200-240 Borderline >240 Undesirable Cholesterol in HDL [Mass/Vol] 43 mg/dL >40 [place] Comment on above: HDL Guidelines: <40 Undesirable 40-59 Borderline >59 Desirable Cholesterol in LDL [Mass/Vol] 50 mg/dL 0 - 130 mg/dL [place] Comment on above: LDL Guidelines: <100 Desirable 100-129 Near to/above Desirable 130-159 Borderline >159 Undesirable Direct (measured) LDL and calculated LDL are not interchangeable tests. Cholesterol in VLDL [Mass/Vol] NOT REPORTED 1 - 30 mg/dL [place] Cholesterol.total/Chol esterol in HDL [Mass ratio] 2.9 {ratio} <5 [place] Triglyceride [Mass/Vol] 149 mg/dL <150 [place] Comment on above: Triglyceride Guidelines: <150 Desirable 150-199 Borderline 200-499 High >499 Very high Based on AHA Guidelines for fasting triglyceride, August 2012. Metabolic Panelon 09-01-2020 GFR/1.73 sq M predicted among non-blacks MDRD (S/P/Bld) [Vol rate/Area] DUPLICATE ORDER [place] TRAUMA PANELon 09-01-2020 Hubert Test NOT REPORTED [place] Anion gap [Moles/Vol] DUPLICATE ORDER mmol/L [place] aPTT Coag (Bld) [Time] 27.5 s [place] Comment on above: IV Heparin Therapy Range: 48.6-77.8 aPTT Coag (Bld) [Time] 37.0 s [place] Blood Bank Specimen BILL FOR SERVICES PERFORMED [place], [place] Carboxyhemoglobin 0.6 % 0 - 5 % [place] Comment on above: Reference Range: Non-Smokers 0-2% Average Smoker 2-4% Heavy Smoker <10% Chloride [Moles/Vol] DUPLICATE ORDER mmol/L [place] CO2 [Moles/Vol] DUPLICATE ORDER mmol/L [place] Creatinine [Mass/Vol] DUPLICATE ORDER mg/dL [place] Erythrocyte distribution width (RBC) [Ratio] DUPLICATE ORDER % [place] Ethanol [Mass/Vol] Order moved to nearest draw time. [id number] mg/dL [place] Ethanol percent Order moved to nearest draw time. [id number] % [place] FIO2 UNKNOWN [place] GFR DUPLICATE ORDER >60 mL/min [place] GFR Non- DUPLICATE ORDER >60 mL/min [place] Glucose [Mass/Vol] DUPLICATE ORDER mg/dL [place] hCG Qual Order moved to nearest draw time. [id number] NEGATIVE [place] HCO3, Venous 27.6 mmol/L 24 - 30 mmol/L [place] Hematocrit (Bld) [Volume fraction] DUPLICATE ORDER % [place] Hemoglobin (Bld) [Mass/Vol] DUPLICATE ORDER g/dL [place] INR Coag (PPP) [Relative time] 1.0 {INR} [place] Comment on above: Therapeutic Range: Moderate Anticoagulant Intensity: INR = 2.0-3.0 High Anticoagulant Intensity: INR = 2.5-3.5 Interpretation and review of laboratory results Abnormal [place] MCH (RBC) [Entitic mass] DUPLICATE ORDER pg [place] MCHC (RBC) [Mass/Vol] DUPLICATE ORDER g/dL [place] MCV (RBC) [Entitic vol] DUPLICATE ORDER fL [place] Methemoglobin NOT REPORTED 0 - 1.5 % [place] Mode NOT REPORTED [place] Negative Base Excess, Christo NOT REPORTED 0 - 2 mmol/L [place] NOTIFICATION NOT REPORTED [place] NOTIFICATION TIME NOT REPORTED [place] O2 Device/Flow/% NOT REPORTED [place] Oxygen saturation in Blood 43.1 % Low 60 - 85 % [place] Oxyhemoglobin NOT REPORTED 95 - 98 % [place] pCO2, Christo 48.8 [place] pCO2, Christo, Temp Adj NOT REPORTED [place] Peep/Cpap NOT REPORTED [place] pH, Christo 7.371 [place], [place] pH, Christo, Temp Adj NOT REPORTED [place] Platelet mean volume (Bld) [Entitic vol] DUPLICATE ORDER fL [place] Platelets (Bld) [#/Vol] DUPLICATE ORDER k/uL [place] pO2, Christo 23.6 Low [place] pO2, Christo, Temp Adj NOT REPORTED [place] Positive Base Excess, Christo 2.1 mmol/L High 0 - 2 mmol/L [place] Potassium [Moles/Vol] DUPLICATE ORDER mmol/L [place] PSV NOT REPORTED [place] PT Coag (PPP) [Time] 10.4 s [place] Pt. Position NOT REPORTED [place] RBC (Bld) [#/Vol] DUPLICATE ORDER m/uL [place] Sample Site NOT REPORTED [facility] [place] Set Rate NOT REPORTED [place] Sodium [Moles/Vol] DUPLICATE ORDER mmol/L [place] Text for Respiratory NOT REPORTED [place] Total Hb NOT REPORTED 12 - 16 g/dl [place] Total Rate NOT REPORTED [place] Urea nitrogen [Mass/Vol] DUPLICATE ORDER mg/dL [place], [place] VT NOT REPORTED [place] Trauma Profileon 09-01-2020 aPTT Coag (Bld) [Time] 27.5 s Normal 20.5-30.5 [facility] Comment on above: Result Comment: IV Heparin Therapy Range: 48.6-77.8 Performed By: #### E RTPF #### [place] [address] Information Consultant: Dheeraj Garcia MD INR Coag (PPP) [Relative time] 1.0 {INR} Normal [facility] Comment on above: Result Comment: Therapeutic Range: Moderate Anticoagulant Intensity: INR = 2.0-3.0 High Anticoagulant Intensity: INR = 2.5-3.5 Performed By: #### E RTPF #### [place] [address] Information Consultant: Dheeraj Garcia MD PT Coag (PPP) [Time] 10.4 s Normal 9.0-12.0 [facility] Comment on above: Performed By: #### E RTPF #### [place] [address] Information Consultant: Dheeraj Garcia MD Body Temp. 37.0 Normal [facility] Comment on above: Performed By: #### E RTPF #### [place] [address] Information Consultant: Dheeraj Garcia MD Carboxy Hgb 0.6 % Normal 0-5 [facility] Comment on above: Result Comment: Reference Range: Non-Smokers 0-2% Average Smoker 2-4% Heavy Smoker <10% Performed By: #### E RTPF #### [address] [address] Information Consultant: Dheeraj Garcia MD FIO2 UNKNOWN Normal [facility] Comment on above: Performed By: #### E RTPF #### [address] [address] Information Consultant: Dheeraj Garcia MD HCO3 (Bld) [Moles/Vol] 27.6 mmol/L Normal 24-30 [facility] Comment on above: Performed By: #### E RTPF #### [address] [address] Information Consultant: Dheeraj Garcia MD Oxygen (Bld) [Partial pressure] 23.6 mm[Hg] Low 30-50 [facility] Comment on above: Performed By: #### E RTPF #### [address] [address] Information Consultant: Dheeraj Garcia MD Oxygen saturation in Blood 43.1 % Low 60.0-85.0 [facility] Comment on above: Performed By: #### E RTPF #### [address] [address] Information Consultant: Dheeraj Garcia MD pCO2 48.8 Normal 39-55 [facility] Comment on above: Performed By: #### E RTPF #### [address] [address] Information Consultant: Dheeraj Garcia MD pH (Bld) 7.371 [pH] Normal 7.320-7.420 [facility] Comment on above: Performed By: #### E RTPF #### [address] [address] Information Consultant: Dheeraj Garcia MD Positive Base Excess 2.1 mmol/L High 0.0-2.0 [facility] Comment on above: Performed By: #### E RTPF #### [address] [address] Information Consultant: Dheeraj Garcia MD Hubert Test NOT REPORTED Normal [facility] Comment on above: Performed By: #### E RTPF #### [address] [address] Information Consultant: Dheeraj Garcia MD Methemoglobin NOT REPORTED Normal 0.0-1.5 [facility] Comment on above: Performed By: #### E RTPF #### [address] [address] Information Consultant: Dheeraj Garcia MD Mode NOT REPORTED Normal [facility] Comment on above: Performed By: #### E RTPF #### [address] [address] Information Consultant: Dheeraj Garcia MD Negative Base Excess NOT REPORTED Normal 0.0-2.0 [facility] Comment on above: Performed By: #### E RTPF #### [address] [address] Information Consultant: Dheeraj Garcia MD Notification Time NOT REPORTED Normal [facility] Comment on above: Performed By: #### E RTPF #### [facility] [employer] [address] [place] [address] Information Consultant: Dheeraj Garcia MD Notification: NOT REPORTED Normal [facility] Comment on above: Performed By: #### E RTPF #### [facility] [employer] [address] [place] [address] Information Consultant: Dheeraj Garcia MD O2 Device/Flow/% NOT REPORTED Normal [facility] Comment on above: Performed By: #### E RTPF #### [facility] [employer] [address] [place] [address] Information Consultant: Dheeraj Garcia MD Oxyhemoglobin NOT REPORTED Normal 95.0-98.0 [facility] Comment on above: Performed By: #### E RTPF #### [address] [address] Information Consultant: Dheeraj Garcia MD Pco2 Adj'd for Temp. NOT REPORTED Normal 39-55 [facility] Comment on above: Performed By: #### E RTPF #### [address] [address] Information Consultant: Dheeraj Garcia MD PEEP/CPAP NOT REPORTED Normal [facility] Comment on above: Performed By: #### E RTPF #### [address] [address] Information Consultant: Dheeraj Garcia MD pH Adjst'd for Temp. NOT REPORTED Normal 7.320-7.420 [facility] Comment on above: Performed By: #### E RTPF #### [address] [address] Information Consultant: Dheeraj Garcia MD pO2 Adj'd for Temp. NOT REPORTED Normal 30-50 [facility] [facility] Comment on above: Performed By: #### E RTPF #### [address] [address] Information Consultant: Dheeraj Garcia MD PSV NOT REPORTED Normal [facility] Comment on above: Performed By: #### E RTPF #### [address] [address] Information Consultant: Dheeraj Garcia MD Pt. Position NOT REPORTED Normal [facility] Comment on above: Performed By: #### E RTPF #### [address] [address] Information Consultant: Dheeraj Garcia MD Set Rate NOT REPORTED Normal [facility] Comment on above: Performed By: #### E RTPF #### [address] [address] Information Consultant: Dheeraj Garcia MD Site Drawn NOT REPORTED Normal [facility] Comment on above: Performed By: #### E RTPF #### [address] [address] Information Consultant: Dheeraj Garcia MD Text for Respiratory NOT REPORTED Normal [facility] Comment on above: Performed By: #### E RTPF #### [address] [address] Information Consultant: Dheeraj Garcia MD Total Hb NOT REPORTED Normal 12.0-16.0 [facility] Comment on above: Performed By: #### E RTPF #### [address] [address] Information Consultant: Dheeraj Garcia MD Total Rate NOT REPORTED Normal [facility] Comment on above: Performed By: #### E RTPF #### [address] [address] Information Consultant: Dheeraj Garcia MD [place] NOT REPORTED Normal [facility] Comment on above: Performed By: #### E RTPF #### [address] [address] Information Consultant: Dheeraj Garcia MD Blood Bank BILL FOR SERVICES PERFORMED Normal [facility] Comment on above: Performed By: #### E RTPF #### [address] [address] Information Consultant: Dheeraj Garcia MD CT CERVICAL SPINE WO [...] Krishna Martell DO 08/30/20 Final result Normal [facility] CT CHEST ABDOMEN PELVIS W CO NTRASTon [...] Brenda Sheldon MD 08/30/20 Final result Normal [facility] CT LUMBAR SPINE TRAUMA RECON STRUCTIONon 08-31-2020 [...] Krishna Martell DO 08/30/20 Final result Normal [facility] CT THORACIC SPINE TRAUMA REC ONSTRUCTIONon 08-31-2020 [...] Krishna Martell DO 08/30/20 Final result Normal [facility] CTA HEAD NECK W CONTRASTon 1 CTA [...] Dom Zhong MD 08/30/20 Final result Normal [facility] MRI LIMITED BRAINon 08-31-20 MRI LIMITED BRAIN [...] Hector Cooper MD 08/31/20 Final result Normal [facility] [place], [place] Incoming Radiant Results From [employer]/Pacs - 08/31/2020 11:56 AM EDT EXAMINATION: MRI [...] chronic microvascular disease without acute intracranial abnormality. [place] Minimal chronic microvascular disease without acute intracranial abnormality. [place] EXAMINATION: MRI OF THE BRAIN WITHOUT [...] The soft tissues demonstrate no acute abnormality. [facility] Erythrocyte distribution width (RBC) [Ratio] 14.1 % Normal 11.8-14.4 [facility] Comment on above: Performed By: #### E RTPF #### [facility] [employer] [address] [place] [address] Information Consultant: Dheeraj Garcia MD Hematocrit (Bld) [Volume fraction] 38.2 % Normal 36.3-47.1 [facility] Comment on above: Performed By: #### E RTPF #### [address] [address] Information Consultant: Dheeraj Garcia MD Hemoglobin (Bld) [Mass/Vol] 12.3 g/dL Normal 11.9-15.1 [facility] Comment on above: Performed By: #### E RTPF #### [address] [address] Information Consultant: Dheeraj Garcia MD MCH (RBC) [Entitic mass] 28.9 pg Normal 25.2-33.5 [facility] Comment on above: Performed By: #### E RTPF #### [address] [address] Information Consultant: Dheeraj Garcia MD MCHC (RBC) [Mass/Vol] 32.2 g/dL Normal 28.4-34.8 [facility] Comment on above: Performed By: #### E RTPF #### [address] [address] Information Consultant: Dheeraj Garcia MD MCV (RBC) [Entitic vol] 89.7 fL Normal 82.6-102.9 [facility] Comment on above: Performed By: #### E RTPF #### [address] [address] Information Consultant: Dheeraj Garcia MD NRBC Automated 0.0 per 100 WBC Normal 0.0 [facility] Comment on above: Performed By: #### E RTPF #### [address] [address] Information Consultant: Dheeraj Garcia MD Platelet mean volume (Bld) [Entitic vol] 10.6 fL Normal 8.1-13.5 [facility] Comment on above: Performed By: #### E RTPF #### [address] [place] [address] Information Consultant: Dheeraj Garcia MD Platelets (Bld) [#/Vol] 268 10*3/uL Normal 138-453 [facility] Comment on above: Performed By: #### E RTPF #### [address] [address] Information Consultant: Dheeraj Garcia MD RBC (Bld) [#/Vol] 4.26 10*6/uL Normal 3.95-5.11 [facility] Comment on above: Performed By: #### E RTPF #### [address] [address] Information Consultant: Dheeraj Garcia MD WBC (Bld) [#/Vol] 8.7 10*3/uL Normal 3.5-11.3 [facility] Comment on above: Performed By: #### E RTPF #### [address] [address] Information Consultant: Dheeraj Garcia MD (cont.) Normal [facility] Comment on above: Result Comment: Aver age GFR for 60-69 years old: 85 mL/min/1.73sq m Chronic Kidney Disease: <60 mL/min/1.73sq m Kidney failure: <15 mL/min/1.73sq m eGFR calculated using average adult body mass. Additional eGFR calculator available at: http://www.InitMe.com/multiple_crcl_2012.htm Performed By: #### E RTPF #### [address] [address] Information Consultant: Dheeraj Garcia MD Anion gap [Moles/Vol] 10 mmol/L Normal 9-17 [facility] Comment on above: Performed By: #### E RTPF #### [facility] [employer] [address] [place] [address] Information Consultant: Dheeraj Garcia MD Chloride [Moles/Vol] 106 mmol/L Normal 98-107 [facility] Comment on above: Performed By: #### E RTPF #### [address] [address] Information Consultant: Dheeraj Garcia MD CO2 [Moles/Vol] 23 mmol/L Normal 20-31 [facility] Comment on above: Performed By: #### E RTPF #### [address] [address] Information Consultant: Dheeraj Garcia MD Creatinine [Mass/Vol] 0.62 mg/dL Normal 0.50-0.90 [facility] Comment on above: Performed By: #### E RTPF #### [address] [address] Information Consultant: Dheeraj Garcia MD Ethanol [Mass/Vol] mg/dL Normal <10 [facility] Comment on above: Performed By: #### E RTPF #### [address] [address] Information Consultant: Dheeraj Garcia MD Ethanol percent <0.010 Normal <0.010 [facility] Comment on above: Performed By: #### E RTPF #### [facility] [employer] [address] [place] [address] Information Consultant: Dheeraj Garcia MD GFR, Amer >60 Normal >60 [facility] Comment on above: Performed By: #### E RTPF #### [address] [address] Information Consultant: Dheeraj Garcia MD GFR,non Amer >60 Normal >60 [facility] Comment on above: Performed By: #### E RTPF #### [address] [address] Information Consultant: Dheeraj Garcia MD Glucose [Mass/Vol] 186 mg/dL High 70-99 [facility] Comment on above: Performed By: #### E RTPF #### [address] [address] Information Consultant: Dheeraj Garcia MD Potassium [Moles/Vol] 3.5 mmol/L Low 3.7-5.3 [facility] Comment on above: Performed By: #### E RTPF #### [address] [address] Information Consultant: Dheeraj Garcia MD Sodium [Moles/Vol] 139 mmol/L Normal 135-144 [facility] Comment on above: Performed By: #### E RTPF #### [address] [address] Information Consultant: Dheeraj Garcia MD Urea nitrogen [Mass/Vol] 11 mg/dL Normal 8-23 [facility] Comment on above: Performed By: #### E RTPF #### [address] [address] Information Consultant: Dheeraj Garcia MD aPTT Coag (Bld) [Time] 24.4 s Normal 20.5-30.5 [facility] Comment on above: Result Comment: IV Heparin Therapy Range: 48.6-77.8 Performed By: #### E RTPF #### [address] [address] Information Consultant: Dheeraj Garcia MD INR Coag (PPP) [Relative time] 1.0 {INR} Normal [facility] Comment on above: Result Comment: Therapeutic Range: Moderate Anticoagulant Intensity: INR = 2.0-3.0 High Anticoagulant Intensity: INR = 2.5-3.5 Performed By: #### E RTPF #### [address] [address] Information Consultant: Dheeraj Garcia MD PT Coag (PPP) [Time] 10.5 s Normal 9.0-12.0 [facility] Comment on above: Performed By: #### E RTPF #### [address] [address] Information Consultant: Dheeraj Garcia MD Body Temp. 37.0 Normal [facility] Comment on above: Performed By: #### E RTPF #### [address] [address] Information Consultant: Dheeraj Garcia MD Carboxy Hgb 2.2 % Normal 0-5 [facility] Comment on above: Result Comment: Reference Range: Non-Smokers 0-2% Average Smoker 2-4% Heavy Smoker <10% Performed By: #### E RTPF #### [address] [address] Information Consultant: Dheeraj Garcia MD FIO2 INFORMATION NOT PROVIDED [facility] Comment on above: Performed By: #### E RTPF #### [address] [address] Information Consultant: Dheeraj Garcia MD HCO3 (Bld) [Moles/Vol] 23.6 mmol/L Low 24-30 [facility] Comment on above: Performed By: #### E RTPF #### [address] [address] Information Consultant: Dheeraj Garcia MD Negative Base Excess 0.8 mmol/L Normal 0.0-2.0 [facility] Comment on above: Performed By: #### E RTPF #### [address] [address] Information Consultant: Dheeraj Garcia MD Oxygen (Bld) [Partial pressure] 143.0 mm[Hg] High 30-50 [facility] Comment on above: Performed By: #### E RTPF #### [address] [address] Information Consultant: Dheeraj Garcia MD Oxygen saturation in Blood 98.6 % High 60.0-85.0 [facility] Comment on above: Performed By: #### E RTPF #### [address] [address] Information Consultant: Dheeraj Garcia MD pCO2 40.6 Normal 39-55 [facility] Comment on above: Performed By: #### E RTPF #### [address] [address] Information Consultant: Dheeraj Garcia MD pH (Bld) 7.383 [pH] Normal 7.320-7.420 [facility] Comment on above: Performed By: #### E RTPF #### [address] [address] Information Consultant: Dheeraj Garcia MD Blood Bank BILL FOR SERVICES PERFORMED Normal [facility] Comment on above: Performed By: #### E RTPF #### [address] [address] Information Consultant: Dheeraj Garcia MD Hubert Test NOT REPORTED Normal [facility] Comment on above: Performed By: #### E RTPF #### [address] [address] Information Consultant: Dheeraj Garcia MD Methemoglobin NOT REPORTED Normal 0.0-1.5 [facility] Comment on above: Performed By: #### E RTPF #### [address] [address] Information Consultant: Dheeraj Garcia MD Mode NOT REPORTED Normal [facility] Comment on above: Performed By: #### E RTPF #### [address] [address] Information Consultant: Dheeraj Garcia MD Notification Time NOT REPORTED Normal [facility] Comment on above: Performed By: #### E RTPF #### [address] [address] Information Consultant: Dheeraj Garcia MD Notification: NOT REPORTED Normal [facility] Comment on above: Performed By: #### E RTPF #### [address] [address] Information Consultant: Dheeraj Garcia MD O2 Device/Flow/% NOT REPORTED Normal [facility] Comment on above: Performed By: #### E RTPF #### [address] [address] Information Consultant: Dheeraj Garcia MD Oxyhemoglobin NOT REPORTED Normal 95.0-98.0 [facility] Comment on above: Performed By: #### E RTPF #### [address] [address] Information Consultant: Dheeraj Garcia MD Pco2 Adj'd for Temp. NOT REPORTED Normal 39-55 [facility] Comment on above: Performed By: #### E RTPF #### [address] [address] Information Consultant: Dheeraj Garcia MD PEEP/CPAP NOT REPORTED Normal [facility] Comment on above: Performed By: #### E RTPF #### [address] [address] Information Consultant: Dheeraj Garcia MD pH Adjst'd for Temp. NOT REPORTED Normal 7.320-7.420 [facility] Comment on above: Performed By: #### E RTPF #### [address] [address] Information Consultant: Dheeraj Garcia MD pO2 Adj'd for Temp. NOT REPORTED Normal 30-50 [facility] Comment on above: Performed By: #### E RTPF #### [address] [address] Information Consultant: Dheeraj Garcia MD Positive Base Excess NOT REPORTED Normal 0.0-2.0 [facility] Comment on above: Performed By: #### E RTPF #### [address] [address] Information Consultant: Dheeraj Garcia MD PSV NOT REPORTED Normal [facility] Comment on above: Performed By: #### E RTPF #### [address] [address] Information Consultant: Dheeraj Garcia MD Pt. Position NOT REPORTED Normal [facility] Comment on above: Performed By: #### E RTPF #### [address] [address] Information Consultant: Dheeraj Garcia MD Set Rate NOT REPORTED Normal [facility] Comment on above: Performed By: #### E RTPF #### [address] [address] Information Consultant: Dheeraj Garcia MD Site Drawn NOT REPORTED Normal [facility] Comment on above: Performed By: #### E RTPF #### [address] [address] Information Consultant: Dheeraj Garcia MD Staging: NOT REPORTED Normal [facility] Comment on above: Performed By: #### E RTPF #### [facility] [employer] [address] [place] [address] Information Consultant: Dheeraj Garcia MD Text for Respiratory NOT REPORTED Normal [facility] Comment on above: Performed By: #### E RTPF #### [address] [address] Information Consultant: Dheeraj Garcia MD Total Hb NOT REPORTED Normal 12.0-16.0 [facility] Comment on above: Performed By: #### E RTPF #### [address] [address] Information Consultant: Dheeraj Garcia MD Total Rate NOT REPORTED Normal [facility] Comment on above: Performed By: #### E RTPF #### [address] [address] Information Consultant: Dheeraj Garcia MD [place] NOT REPORTED Normal [facility] Comment on above: Performed By: #### E RTPF #### [address] [address] Information Consultant: Dheeraj Garcia MD Type + Screenon 08-31-2020 Type + Screen Sample Expiration 09/02/2020,2359 Arm Band Number [id number] ABO/Rh(D) O POSITIVE Antibody Screen NEGATIVE Normal [facility] Comment on above: Performed By: #### T YS #### [address] [address] Information Consultant: Dheeraj Garcia MD XR SHOULDER LEFT (MIN [...] Delmis Adams MD 08/31/20 Final result Normal [facility] EXAMINATION: TWO XRAY VIEWS OF THE LEFT SHOULDER 08/31/2020 8:25 am COMPARISON: None. HISTORY: ORDERING SYSTEM PROVIDED HISTORY: trauma TECHNOLOGIST PROVIDED HISTORY: trauma Reason for Exam: trauma Acuity: Acute Type of Exam: Initial FINDINGS: The bones and joints are unremarkable without definite fracture, dislocation, abnormal soft tissue calcification or bony destructive lesion [facility] [place] Unremarkable three view left shoulder series [place], [place], [place] Incoming Radiant Results From [employer]/Ion Cores - 08/31/2020 8:46 AM EDT EXAMINATION: TWO [...] IMPRESSION: Unremarkable three view left shoulder series [place] CT CERVICAL SPINE WO CONTRAS Ton 08-30-2020 No evidence of an acute fracture or traumatic malalignment involving the cervical spine [place], [place] EXAMINATION: CT OF THE CERVICAL SPINE [...] There is no prevertebral soft tissue swelling. [facility] [place] [place], [place] Incoming Radiant Results From [employer]/Pacs - 08/30/2020 11:01 PM EDT EXAMINATION: CT [...] or traumatic malalignment involving the cervical spine [facility], [place] CT CHEST [facility]OM[facility] EXAMINATION: CT OF THE CHEST, [...] aorta. Bones/Soft Tissues: No acute osseous abnormality. [place], [place], [place] Incoming Radiant Results From [employer]/Ion Cores - 08/30/2020 11:25 PM EDT EXAMINATION: CT [...] could provide further information as clinically indicated. [place], [place] 1. No acute or traumatic intrathoracic abnormality. 2. No acute or traumatic intra-abdominal abnormality. 3. Dilation of the main pulmonary artery, suggestive of pulmonary artery hypertension. 4. Hepatic steatosis. 5. 1.6 cm left upper pole renal lesion is indeterminate, possibly a cyst. Renal protocol CT or MRI could provide further information as clinically indicated. [place] CT LUMBAR SPINE TRAUMA RECON STRUCTIONon [...] the upper pole of the left kidney. [place] Incoming Radiant Results From [employer] - 08/30/2020 11:26 PM EDT EXAMINATION: CT [...] or traumatic malalignment involving the lumbar spine. [place] No evidence of an acute fracture or traumatic malalignment involving the lumbar spine. [place] CT THORACIC SPINE TRAUMA REC ONSTRUCTIONon [...] the lung bases. No pneumothorax is noted. [place] Incoming Radiant Results From [employer]/OY LX Therapies - 08/30/2020 11:29 PM EDT EXAMINATION: CT [...] or traumatic malalignment involving the thoracic spine [place] No evidence of an acute fracture or traumatic malalignment involving the thoracic spine [place] CTA HEAD NECK W CONTRASTon 1 Unremarkable CTA of the neck. 50% stenosis left intracranial ICA, otherwise unremarkable CTA head. [place] Incoming Radiant Results From [employer] LX Therapies - 08/30/2020 11:48 PM EDT EXAMINATION: CTA [...] left intracranial ICA, otherwise unremarkable CTA head. [place] EXAMINATION: CTA OF THE HEAD AND [...] fluid collection. The durán-white differentiation is maintained. [place], [place] TYPE AND SCREENon 08-30-2020 ABO/Rh Positive [place], [place] Arm Band Number [id number] [facility] [place], [place] Expiration Date 09/02/2020,2359 [place], [place] Trauma Panelon 08-30-2020 Hubert Test NOT REPORTED [place] Anion gap [Moles/Vol] 10 mmol/L 9 - 17 mmol/L [place] aPTT Coag (Bld) [Time] 37.0 s [place] aPTT Coag (Bld) [Time] 24.4 s [place] Comment on above: IV Heparin Therapy Range: 48.6-77.8 Blood Bank Specimen BILL FOR SERVICES PERFORMED [place] Carboxyhemoglobin 2.2 % 0 - 5 % [place] Comment on above: Reference Range: Non-Smokers 0-2% Average Smoker 2-4% Heavy Smoker <10% Chloride [Moles/Vol] 106 mmol/L 98 - 10 7 mmol/L [place] CO2 [Moles/Vol] 23 mmol/L 20 - 31 mmol/L [place] Creatinine [Mass/Vol] 0.62 mg/dL 0.5 - 0.9 mg/dL [place] Erythrocyte distribution width (RBC) [Ratio] 14.1 % 11.8 - 14.4 % [place] Ethanol [Mass/Vol] mg/dL <10 mg/dL [place] Ethanol percent <0.010 <0.010 % [place] FIO2 INFORMATION NOT PROVIDED [place] GFR >60 >60 mL/min [place] GFR Non- >60 >60 mL/min [place] GFR/1.73 sq M predicted among non-blacks MDRD (S/P/Bld) [Vol rate/Area] [place], [place] Comment on above: Average GFR for 60-6 9 years old: 85 mL/min/1.73sq m Chronic Kidney Disease: <60 mL/min/1.73sq m Kidney failure: <15 mL/min/1.73sq m eGFR calculated using average adult body mass. Additional eGFR calculator available at: http://www.[employer]/multiple_crcl_2012.htm GFR/1.73 sq M predicted among non-blacks MDRD (S/P/Bld) [Vol rate/Area] NOT REPORTED [place], [place] Glucose [Mass/Vol] 186 mg/dL High 70 - 99 mg/dL [place] hCG Qual CANCELLED PER ED NEGATIVE [place] HCO3, Venous 23.6 mmol/L Low 24 - 30 mmol/L [place] Hematocrit (Bld) [Volume fraction] 38.2 % 36.3 - 47.1 % [place] Hemoglobin (Bld) [Mass/Vol] 12.3 g/dL 11.9 - 15.1 g/dL [place] INR Coag (PPP) [Relative time] 1.0 {INR} [place] Comment on above: Therapeutic Range: Moderate Anticoagulant Intensity: INR = 2.0-3.0 High Anticoagulant Intensity: INR = 2.5-3.5 Interpretation and review of laboratory results Abnormal [place] MCH (RBC) [Entitic mass] 28.9 pg 25.2 - 33.5 pg [place] MCHC (RBC) [Mass/Vol] 32.2 g/dL 28.4 - 34.8 g/dL [place] MCV (RBC) [Entitic vol] 89.7 fL 82.6 - 102.9 fL [place] Methemoglobin NOT REPORTED 0 - 1.5 % [place] Mode NOT REPORTED [place] Negative Base Excess, Christo 0.8 mmol/L 0 - 2 mmol/L [place] NOTIFICATION NOT REPORTED [place] NOTIFICATION TIME NOT REPORTED [place] O2 Device/Flow/% NOT REPORTED [place] Oxygen saturation in Blood 98.6 % High 60 - 85 % [place] Oxyhemoglobin NOT REPORTED 95 - 98 % [place] pCO2, Christo 40.6 [place] pCO2, Christo, Temp Adj NOT REPORTED [place] Peep/Cpap NOT REPORTED [place] pH, Christo 7.383 [place] pH, Christo, Temp Adj NOT REPORTED [place] Platelet mean volume (Bld) [Entitic vol] 10.6 fL 8.1 - 13.5 fL [place] Platelets (Bld) [#/Vol] 268 10*3/uL [place] pO2, Christo 143.0 High [place] pO2, Christ[place], Temp Adj NOT REPORTED [place] Positive Base Excess, Christo NOT REPORTED 0 - 2 mmol/L [place] Potassium [Moles/Vol] 3.5 mmol/L Low 3.7 - 5.3 mmol/L [place] PSV NOT REPORTED [place] PT Coag (PPP) [Time] 10.5 s [place] Pt. Position NOT REPORTED [place] RBC (Bld) [#/Vol] 4.26 10*6/uL 3.95 - 5.1 1 m/uL [place] Sample Site NOT REPORTED [place] Set Rate NOT REPORTED [place] Sodium [Moles/Vol] 139 mmol/L 135 - 144 mmol/L [place] Text for Respiratory NOT REPORTED [place] Total Hb NOT REPORTED 12 - 16 g/dl [place] Total Rate NOT REPORTED [place] Urea nitrogen [Mass/Vol] 11 mg/dL 8 - 23 mg/dL [place] NOT REPORTED [place] WBC (Bld) [#/Vol] 0.0 10*3/uL 0.0 per 10 0 WBC [place] WBC (Bld) [#/Vol] 8.7 10*3/uL [place] PROGRESSon 03-24-2019 Protein mass conc HNO ID: [id number] Author: Kamilah Jean) Kyle Service: ? Author Type: Physician Carpenter Maintenance Type: Progress Notes Filed: 03/25/2019 10:38 AM Note Text: [facility] NOTE NAME: SHEMAR AVILA NO.: [id number] DATE OF SERVICE: 03/24/2019 [facility] DATE OF : 1955 CHIEF COMPLAINT: Skilled followup visit for discharge. Also complains of a cyst on her back. SUBJECTIVE FINDINGS: The patient was seen in her room today at [facility]. She is tentatively scheduled for discharge [...] above. MEDICATIONS: Medications were reviewed in the custodial records. OAR[facility] report was run today and [...] DICTATED BY: Kamilah Wright PA-C PG/Niharika JOB# [id number] cc:Viviana Mota Normal [facility] PROGRESSon 03-22-2019 Protein mass conc HNO ID: [id number] Author: Kamilah Jean) Kyle Service: ? Author Type: Physician Carpenter Maintenance Type: Progress Notes Filed: 03/23/2019 11:37 AM Note Text: [facility] NOTE NAME: SHEMAR AVILA NO.: [id number] DATE OF SERVICE: 03/22/2019 [facility] DATE OF : 1955 CHIEF COMPLAINT: Skilled followup visit for stroke; today complaining of heartburn. SUBJECTIVE FINDINGS: The patient was seen in the therapy department at [facility]. She reports that overall she is [...] SYSTEMS: See above. MEDICATIONS: Reviewed in the custodial record. CODE STATUS: Full code. PHYSICAL EXAM: [...] DICTATED BY: Kamilah Wright PA-C PG/Niharika JOB# [id number] cc:[facility] Normal [facility] PROGRESSon 03-19-2019 Protein mass conc HNO ID: [id number] Author: Kamilah Wright (Pa) Service: ? Author Type: Physician Carpenter Maintenance Type: Progress Notes Filed: 03/22/2019 12:17 PM Note Text: [facility] NOTE NAME: SHEMAR AVILA NO.: [id number] DATE OF SERVICE: 03/19/2019 [facility] DATE OF : 1955 CHIEF COMPLAINT: Follow up for stroke and weakness. SUBJECTIVE FINDINGS: [facility] [facility] She is complaining of a headache [...] SYSTEMS: See above. MEDICATIONS: Reviewed in the custodial record. CODE STATUS: Full code. PHYSICAL EXAM: [...] DICTATED BY: Kamilah Wright PA-C PG/Niharika JOB# [id number] cc:[facility] PROGRESSon 03-17-2019 Protein mass conc HNO ID: [id number] Author: Kamilah Wright (Pa) Service: ? Author Type: Physician Carpenter Maintenance Type: Progress Notes Filed: 03/18/2019 10:28 AM Note Text: [facility] NOTE NAME: SHEMAR AVILA NO.: [id number] DATE OF SERVICE: 03/17/2019 [facility] DATE OF : 1955 CHIEF COMPLAINT: Follow up for stroke and weakness. SUBJECTIVE FINDINGS: The patient was seen in the therapy department at [facility]. She is doing very well with [...] SYSTEMS: See above. MEDICATIONS: Reviewed in the custodial record. CODE STATUS: Full code. PHYSICAL EXAM: [...] DICTATED BY: Kamilah Wright PA-C PG/Niharika JOB# [id number] cc:Viviana Mota Normal [facility] PROGRESSon 03-15-2019 Protein mass conc HNO ID: [id number] Author: Kyra Butler Service: ? Author Type: Physician Type: Progress Notes Filed: 03/18/2019 5:07 PM Note Text: [facility] NOTE NAME: YEYO AVILA COLEEN NO.: [id number] DATE OF SERVICE: 03/15/2019 Viviana Mota DATE OF : 1955 New Patient History and Physical HISTORY OF PRESENT ILLNESS: The patient is a 63-year-old female was admitted to us from [facility] in [place] with the diagnoses of complicated headache syndrome [...] was negative. She was then transferred to [facility] where repeat CT scan along with MRI [...] completion of therapy. DICTATED BY: MD NELIDA aLrose/Niharika JOB# [id number] cc:[facility] Normal [facility] Vital Signs Date Time Vital Sign Value Performing Clinician Facility 07-13-2023 11:32-0400 Body temperature 97.88 [degF] [facility] 07-13-2023 11:32-0400 Diastolic blood pressure 85 mm[Hg] [facility] 07-13-2023 11:32-0400 Heart rate 76 /min [facility] 07-13-2023 11:32-0400 Respiratory rate 18 /min [facility] 07-13-2023 11:32-0400 SaO2% (BldA) [Mass fraction] 97 % [facility] 07-13-2023 11:32-0400 Systolic blood pressure 147 mm[Hg] [facility] 02-24-2023 13:08-0400 Promise to Return Ronobir FELICIA [facility] 02-24-2023 12:00-0400 Hourly Rounding Ronobir FELICIA [facility] 02-24-2023 12:00-0400 Promise to Return Ronobir FELICIA [facility] 02-24-2023 11:56-0400 Heart rate 62 /min Ronobir FELICIA [facility] 02-24-2023 11:56-0400 SaO2% (BldA) [Mass fraction] 97 % Ronobir FELICIA [facility] 02-24-2023 11:54-0400 Diastolic blood pressure 67 mm[Hg] Ronobir FELICIA [facility] 02-24-2023 11:54-0400 Mean blood pressure 88 mm[Hg] Ronobir FELICIA [facility] 02-24-2023 11:54-0400 Systolic blood pressure 130 mm[Hg] Ronobir FELICIA [facility] 02-24-2023 11:54-0400 Body temperature 97.88 [degF] Ronobir FELICIA [facility] 02-24-2023 11:11-0400 Hourly Rounding Ronobir FELICIA [facility] 02-24-2023 11:11-0400 Promise to Return Ronobir FELICIA [facility] 02-24-2023 11:00-0400 Hourly Rounding Ronobir FELICIA [facility] 02-24-2023 07:50-0400 SaO2% (BldA) [Mass fraction] 98 % Ronobir FELICIA [facility] 02-24-2023 07:43-0400 Heart rate 61 /min Ronobir FELICIA [facility] 02-24-2023 07:43-0400 SaO2% (BldA) [Mass fraction] 98 % Ronobir FELICIA [facility] 02-24-2023 07:41-0400 Body temperature 98.06 [degF] Ronobir FELICIA [facility] 02-24-2023 07:41-0400 Diastolic blood pressure 74 mm[Hg] Ronobir FELICIA [facility] 02-24-2023 07:41-0400 Mean blood pressure 92 mm[Hg] Ronobir FELICIA [facility] 02-24-2023 07:41-0400 Systolic blood pressure 128 mm[Hg] Ronobir FELICIA [facility] 02-24-2023 03:47-0400 Blood Pressure Location Ronobir FELICIA [facility] 02-24-2023 03:47-0400 Body temperature 97.52 [degF] Ronobir FELICIA [facility] 02-24-2023 03:47-0400 Diastolic blood pressure 70 mm[Hg] Ronobir FELICIA [facility] 02-24-2023 03:47-0400 Heart rate 57 /min Ronobir FELICIA [facility] 02-24-2023 03:47-0400 Mean blood pressure 87 mm[Hg] Ronobir FELICIA [facility] 02-24-2023 03:47-0400 Respiratory rate 17 /min Ronobir FELICIA [facility] 02-24-2023 03:47-0400 Systolic blood pressure 120 mm[Hg] Ronobir FELICIA [facility] 02-24-2023 03:06-0400 Mean blood pressure 77 mm[Hg] Ronobir FELICIA [facility] 02-24-2023 03:06-0400 Respiratory rate 16 /min Ronobir FELICIA [facility] 02-24-2023 02:49-0400 Respiratory rate 16 /min Ronobir FELICIA [facility] 02-24-2023 02:04-0400 Body temperature 96.8 [degF] Ronobir FELICIA [facility] 02-24-2023 02:04-0400 Mean blood pressure 68 mm[Hg] Ronobir FELICIA [facility] 02-24-2023 01:09-0400 Body temperature 96.62 [degF] Ronobir FELICIA [facility] 02-24-2023 00:21-0400 Heart rate 58 /min Ronobir FELICIA [facility] 02-24-2023 00:06-0400 gluc 139 mg/dL Ronobir FELICIA [facility] 02-24-2023 00:06-0400 Heart rate 61 /min Ronobir FELICIA [facility] 02-18-2022 13:50-0400 Body height 165.1 cm MD Shaikh Hernandez Work Phone: [facility] 02-18-2022 13:50-0400 Body weight 104.32 kg MD Shaikh Hernandez Work Phone: [facility] 09-01-2020 16:00-0400 BP Diastolic 85 mm[Hg] Dank [facility] , [place] 09-01-2020 16:00-0400 BP Systolic 158 mm[Hg] [facility] , [place] 09-01-2020 14:12-0400 Pulse (Heart Rate) 72 /min [facility], [place] 09-01-2020 13:30-0400 Respiratory rate NOT REPORTED [facility] [place] 09-01-2020 12:27-0400 Body Temperature 97.7 [degF] [facility] [place] 09-01-2020 12:27-0400 Pulse Oximetry 94 % [facility]ank [facility] , [place] 09-01-2020 07:15-0400 Respiratory rate NOT REPORTED HERMELINDO ADKINS [facility] Comment on above: Performed By: #### ERTPF #### [facility] [address] [place] [address] Information Consultant: Dheeraj Garcia MD 09-01-2020 04:45-0400 Respiratory Rate 15 /min [facility] [place] [facility] [place] 08-31-2020 18:45-0400 BMI (Body Mass Index) 38.72 kg/m2 Dank Rodgers [facility] [place], [place] 08-31-2020 18:45-0400 Body weight 105.[address] [facility] , JHONATAN 08-31-2020 18:45-0400 Height 165.[address] [facility] , [place] 08-31-2020 00:34-0400 Respiratory rate NOT REPORTED HERMELINDO ADKINS [facility] Comment on above: Performed By: #### ERTPF #### [facility] [address] [place] [address] Information Consultant: Dheeraj Garcia MD 08-30-2020 23:08-0400 Respiratory rate NOT REPORTED Dank Rodgers [facility] H, [place]ON[place]AN Encounters Encounter Date Encounter Type Care Provider Facility Start: 11-13-2023 ambulatory Arturo DOLAN [facility] ty:CD:[id number] Start: 11-12-2023 End: 11-13-2023 ambulatory Arturo DOLAN Facility: [facility] Start: 07-13-2023 End: 07-13-2023 Emergency department patient visit [facility] Enio Muñoz Facility:[facility] Start: 07-13-2023 End: 07-13-2023 [facility] Start: 07-08-2023 End: 07-08-[address] [facility] Start: 04-25-2023 End: 04-25-[address] [facility] Start: 04-15-2023 End: 04-15-[address] ROBIN PONCE . Facility:[facility] Start: 04-01-2023 End: 04-01-[address] DANK JOHNSON Facility:[facility] Start: 04-01-2023 End: 04-02-[address] DOCTOR CASTELLON Facility:[facility] Start: 03-24-2023 End: 03-25-[address] DOCTOR CASTELLON Facility:[facility] Start: 03-10-2023 End: 03-10-[address] [facility] Start: 02-24-2023 End: 02-24-2023 ambulatory SHAIKH MARY Facility:[facility] Start: 02-24-2023 End: 02-24-2023 Observation Sunshine DUARTE [facility] Start: 02-14-2023 End: 02-14-[address] ROBIN PONCE . Facility:[facility] Start: 10-05-2022 End: 10-05-[address] ZELALEM STACY Facility:[facility] Start: 09-23-2022 ambulatory SHAIKH Enio HERNANDEZ Facilit y:[facility] Start: 02-18-2022 End: 02-18-2022 Patient encounter procedure MD Shaikh Hernandez Work Phone: [facility] [place] Start: 03-21-2021 End: 03-22-2021 ambulatory REBEKA PARDO Facility:[facility] Start: 08-31-2020 End: 09-01-2020 Evaluation and management of inpatient HERMELINDO ADKINS [facility] Start: 08-30-2020 End: 09-01-2020 Evaluation and management of inpatient Dank Diamond Nunes [facility] 2C Ortho/Med Surg Comment on above: Injury [...] CHEMICAL VTE PROPHYLAXIS HERMELINDO ADKINS Start: 08-31-2020 ESCROW SECRETARY EVAL AND TREAT HERMELINDOWHITNEY ADKINS Start: 08-31-2020 [...] Jorgensen n Start: 08-30-2020 TRAUMA PANEL Dank Fields Michellecharanjit Abdominal hysterectomy Ronob ir FELICIA Appendectomy Ronobir FELICIA Closed fracture of p atella (disorder) Ronobir FELICIA Colonoscopy Guidoobir FELICIA Exploratory laparotomy Ronob ir FELICIA History of coronary artery bypass grafting H/O coronary artery bypass surgery MD Shaikh Hernandez Work Phone: Plan of Treatment Date Care Activity Detail Author Start: 09-01-2021 Creatinine measurement Creatinine mo nitoring [place], [place] Start: 09-01-2021 HbA1c (Bld) [Mass fraction] A1C test (Diabetic or Prediabetic) [place] Start: 09-01-2021 Lipid panel Lipid screen [place], [place] Start: 09-01-2021 Potassium monitoring Potassium monit [place]ing [place] Start: 08-31-2020 Annual Wellness Visi t (AWV) Annual Wellness Visit (AWV) [place] Start: 07-18-2020 Influenza vaccination Flu vaccine (# 1) [place], [place] Start: 2007 Screening for malign ant neoplasm of breast Breast cancer screen [place], [place] Start: 2007 Screening for malign ant neoplasm of colon Colon cancer screen colonoscopy [place], [place] Start: 2007 Shingles Vaccine (1 of 2) Shingles V accine (1 of 2) [place] Start: 1978 Screening for malign ant neoplasm of cervix Cervical cancer screen [place] Start: 1976 DTaP/Tdap/Td vaccine (1 - Tdap) DTaP/Tdap/Td vaccine (1 - Tdap) [place] Start: 1975 Diabetic microalbumi betzy test Diabetic microalbuminuria test [place] Start: 1972 HIV screening HIV screen [facility] [place] Start: 1967 Diabetic foot examination Diabetic f oot exam [place], [place] Start: 1967 Diabetic retinal exam Diabetic retin al exam [place], [place] Start: 1955 Hepatitis C screening Hepatitis C sc reen [place], [place] Oxygen therapy [[facility] Data Set] Initiate Oxygen Therapy Protocol Respiratory Care Routine Daily until discontinued starting 08/31/2020 [place] Comment on above: Daily until disconti nued starting 08/31/2020 End: 08-31-2020 Speech and language therapy regime [place], [place] Comment on above: One Time for 1 Occur rences starting 08/31/2020 until 08/31/2020 Immunizations Immunization Date Immunization Notes Care Provider Ronny pathak 08-17-2021 influenza virus vaccine, unspecified formulation Ronobir FELICIA [facility] 02-15-2021 SARS-CoV-2 (COVID-19 ) Ad26 vaccine, recombinant Ronobir FELICIA [facility] 01-15-2021 SARS-CoV-2 (COVID-19 ) Ad26 vaccine, recombinant Ronobir FELICIA [facility] Payers Date Payer Category Payer Medicare [id number] [id number] [id number] 1957 Self-pay [id number] 1955 Unknown [id number] 2.16.8 [id number] 1955 Unknown [id number] 2.16.8 [id number] 1955 Unknown [id number] 2.16.84 [id number] 1955 Unknown [id number] 2.16.84 [id number] 1955 Unknown [id number] 2.16.84 [id number] 1955 Unknown [id number] 2.16.84 [id number] 1955 Unknown [id number] 2.16.84 [id number] 1955 Unknown [id number] 2.16.84 [id number] 1955 Unknown [id number] 2.16.84 [id number] 1955 Unknown [id number] 2.16.8 [id number] 1955 Unknown [id number] 2.16.8 [id number] 1955 Unknown [id number] 2.16.8 [id number] Self-pay Self Pay [id number] Social History Date Type Detail Facility Tobacco smoking stat [facility] Unknown if ever smoked [place], [place] Sex Assigned At Not on file [place] Start: 03-19-2021 [facility] Start: 1955 Sex Assigned At Female [facility] Start: 02-24-2023 End: 07-13-2023 Tobacco smoking status Heavy tobacco smoker (finding) [facility] Comment on above: 1 pack a day Sex Assigned At Female [facility] Functional Status Date Assessment Result Facility 07-13-2023 Functional Status N/A [facility] 02-24-2023 Functional Status No [facility] 02-24-2023 Functional Status [facility] Clinical Notes 02-24-2023 to 01-17-2024 Note Date & Type Note Facility 12-03-2023 Note RCRI=3 points Class IV Risk 15.0 % 30-day risk of , AR, or cardiac arrest PMH- CAD s/p Stent, [...] you Alexia Cline NP Division of Cardiology, [facility]- [phone] Pager- [phone] Email- [email or web address] 07-13-2023 Hospital Discharg e instructions Patient [...] to strengthen the arm. General instructions Take lvye-jhk-xxcjdqz and prescription medicines only as told by [...] provider. Document Revised: 07/19/2022 Document Reviewed: 07/19/2022 [employer]Genius Patient Education 2022 [employer]. 07/13/2023 12:19:06 Muscle Strain Muscle Strain A [...] is not too tight. General instructions Take xecl-gqm-tznugui and prescription medicines only as told by [...] provider. Document Revised: 01/21/2022 Document Reviewed: 01/21/2022 [employer]ius Patient Education 2022 [employer]. Follow Up Care 07/13/2023 11:23:52 With:Robin Ponce Address: [address] [place], [place] [phone] Business (1) When:07/16/2023 12:02:34 [facility] 07-13-2023 Evaluation + Plan note Extrac sherita from: Title:ED Note Author:Rubén STAFFORD, Mathew Sadler te:07/13/23 Shoulder pain (M25.519: Pain in unspecified shoulder) Ordered: acetaminophen-oxycodone, 1 tab(s), Oral, q6hr as needed for pain for 3 day(s), 15 tab(s), Refill(s) 0, [id number], 165, cm, 07/13/23 11:34:00 EDT, Height/Length Dosing, 95.5, kg, 07/13/23 11:34:00 EDT, Weight Dosing [facility]08-22-2023 NoteWill increase imdur to 60 mg and d/w pt that if migraines worsen she can reduce back to 30 mg [facility] Recommended pt to see a migraine specialist [place] NoteCoronary artery disease is stable Continue GDMT- Coreg, simvastatin, imdur continue risk factor modifications- heart healthy diet, regular exercise as tolerated and continue all medications.[facility] 07-08-2023 NoteNYHC II- currently LVEF normal 60%- recovered Mild MR and TV regurg Normal rt sided pressure Continue current med regime. Coreg, irbesartan, simvastatin, [facility]ur[facility] 07-08-2023 NoteHypertension is well controlled, Continue all current medsUniversity of [facility]08-22-2023 NoteUTP CARDIOLOGY PROGRESS NOTE HPI: Yeyo Avila [...] States pain in groin Cat/Feline Products Hives [place] Hives Topiramate Hives and Other Blue Dye [...] mononitrate ER (I (more content not included)... [facility]06-09-2023 NotePatient here for follow up Holter monitor and stress test. Also had labs a few weeks ago. Review of Systems Cardiovascular: Positive for chest pain, dyspnea on exertion and near-syncope (with bending over). Neurological: Positive for dizziness and light-headedness. All other systems reviewed and are negative.[facility] 04-25-2023 NoteCardiology Clinic Note Subjective Yeyo [...] States pain in groin Cat/Feline Products Hives [place] Hives Topiramate Hives and Other Blue Dye [...] mg sublingual tablet, Dis (more content not included)...[facility] 03-10-2023 NoteCardiology Clinic Note Subjective Yeyo [...] States pain in groin Cat/Feline Products Hives [place] Hives Topiramate Hives and Other Blue Dye [...] systolic function. No significant (more content not included)...[facility] 02-24-2023 NoteFisher [facility] Center [facility] HospitalComment on above:Result Comment: Electronically Signed By: Leann GUNTER MD\.br\Date and Time Signed: 02/24/23 12:35 [id number] Evaluation + Plan noteExtracted from: Title:Discharge Note [...] PRN With When Contact Information Robin Ponce [address] [place] [address]- Business (1) Additional Instructions: Office is closed for lunch between Noon and 1 p.m. Please contact office for follow up appointment. Thank you! TRENT FAWWAD Within 5 to 7 days [address] [place] [address] Business (1) Additional Instructions: Not a patient. Syncope, [id number] Extracted from: Title:APSO Note Author:PERLA PRADO, Mbanefo [...] heart monitor. Check orthostatic vital signs. Ordered: [facility] Hospital Care/Day Moderate 35 Minutes 49999 2. RAMA (acute kidney injury) (N17.9: Acute kidney failure, unspecified) Acute kidney injury secondary to ATN from dehydration and antihypertensives. Resolved. Treated with IV fluid. Ordered: [facility] Hospital Care/Day Moderate 35 Minutes 82181 3. Hypokalemia (E87.6: Hypokalemia) Secondary to poor oral intake. Potassium level improving to 3.4. We will give patient additional potassium chloride. Ordered: potassium chloride, 40 mEq = 2 tab(s), Tab-ER, Oral, Once, Stop date 02/24/23 10:00:00 EDT, Routine, Start date 02/24/23 10:00:00 EDT, 02/24/23 9:46:00 EDT [facility] Hospital Care/Day Moderate 35 Minutes 65593 4. Diabetes mellitus (E11.9: Type 2 diabetes mellitus without complications) Continue sliding scale insulin. Ordered: [facility] Hospital Care/Day Moderate 35 Minutes 10960 5. High cholesterol (E78.00: Pure hypercholesterolemia, unspecified) On Lipitor at home. Ordered: [facility] Hospital Care/Day Moderate 35 Minutes [id number] 6. Hypertension (I10: Essential (primary) hypertension) Blood pressure on the low side of normal. 7. CAD (coronary artery disease) (I25.10: Atherosclerotic heart disease of [place] coronary artery without angina pectoris) Continue on aspirin, Plavix. 8. Aortic aneurysm (I71.9: Aortic aneurysm of unspecified site, without rupture) Status post surgery. 9. Obese (E66.9: Obesity, unspecified) Recommend therapeutic lifestyle modification changes. 10. On deep vein thrombosis (DVT) prophylaxis (Z79.899: 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 (current) drug therapy) Heparin. Disposition: Home soon pending physical therapy evaluation. I discussed the diagnosis and plan of care with the patient at the bedside. Moderate level of MDM based on addressing above issues. This documentation was transcribed using voice recognition software. Several attempts were made to ensure accuracy. However inadvertent computerized corporate legal intern errors may be present. Leann Gunter. Hospitalist. [...] deep vein thrombosis (DVT) prophylaxis (Z79.899: Other half-way (current) drug therapy) SCD, heparin Orders: acetaminophen, [...] XR Spine Lumbosacral 2 or 3 Views [facility]04-10-2023 Hospital Discharge instructions Patient Education 02/24/2023 11:49:54 Syncope, Lhye-ll-Cwpz Syncope Syncope is when you pass out [...] pee (urine) pale yellow. General instructions Take bvsn-deg-zjazjft and prescription medicines only as told by [...] right away. Call your local emergency services (341 in the [place] Do not drive yourself [...] 04/21/2009 Document Revised: 12/16/2018 Document Reviewed: 12/16/2018 [employer]Genius Patient Education 2019 [employer]. Follow Up Care 02/24/2023 00:01:37 With:Robin Ponce Address: [facility] [place] [address]- Business (1) When: Unknown Comments:Office is closed for lunch between Noon and 1 p.m. Please contact office for follow up appointment.Thank you! With:TRENT SHANEVAConcepcion Address: [address] [place] [phone] Business (1) When:5 to 7 days Comments:Not a patient. [facility]04-10-2023 NoteCape Fear/Harnett Healther [facility] And HospitalComment on above:Result Comment: Electronically Signed By: Sunshine DUARTE DO.diane\Date and Time Signed: 02/24/23 03:41 EDTEvaluation noteNo assessment information availablePremier Health [facility] Work Phone: Hospital course Narrative No data available for this section [facility] No data available for this section [facility] Summary Purpose Family History No Family [...] Assisted Dressing Independent Toileting Assisted Feeding Independent Retail Selling Floor Leader Independent Med Delivery whole Wound Care Documentation [...] Readmission: 9 Discharging to Facility/ Agency Name: [facility] FAX [address] [facility] [address] Address: Phone: Fax: Dialysis Facility (if applicable) Name: Address: Dialysis Schedule: Phone: Fax: Financial Aid Coordinator/Mental Hygiene Consultant signature: EDT PHYSICIAN SECTION Prognosis: Good Condition at Discharge: Stable Rehab Potential (if transferring to Rehab): {Prognosis:[id number]} Recommended Labs or Other Treatments After Discharge: [...] called to the trauma nurse line at [phone] and please leave a message. Trauma is a life-threatening condition. Your doctor will want to closely monitor you. Be sure to goto all of your appointments. * Attachments The following attachments cannot be sent through Care Everywhere. * Fall Prevention (Croatian) * Falls: Get Up Safely Instruction (Croatian) * Vasovagal Syncope (Croatian) documented in this encounter History of Present [...] 4 wheeled walker, Cane, Quad cane, Crutches, Manager Social Media, Sock aid(pt reported no use of DME at baseline) ADL Assistance: Independent Homemaking Assistance: Independent Homemaking Responsibilities: Yes Meal Prep Responsibility: Primary Laundry Responsibility: Primary Cleaning Responsibility: Primary Ambulation Assistance: Independent Transfer Assistance: Independent Active Turbogenerator Operator: Yes Mode of Transportation: Car 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 pt with no LOB ADL [...] L LE. pt unable to identify when selling underwriter was touching L UE (on elbow and [...] Plan Times per week: 3-5x/wk AM-PAC Score [facility] Inpatient Daily Activity Raw Score: 16 (09/01/201440) AM-PAC Inpatient ADL T-Scale Score : 35.96 (09/01/201440) ADL Inpatient [facility] 0-100% Score: 53.32 (09/01/201440) ADL Inpatient [facility] G-Code Modifier : CK (09/01/201440) Goals Short [...] activity in order to increase coordination and ceo strength to L hand Short term goal 6: dem SBA during functional transfers/functional mobility with LRD, as needed Therapy Time Individual Concurrent Group Co-treatment Time In 1316 Time Out 1404 Minutes 48 Variance: 40 Debi Marques OTR/L * Taya Bergeron, ESCROW SECRETARY - 09/01/2020 11:39 AM EDT Speech Language Pathology Facility/Department: [address] ORTHO/MED SURG Initial Speech/Language/Cognitive Assessment NAME: [...] the bathtub. +LOC, on Plavix. Taken to [place] where a stroke alert was initiated. CT head at 6pm today at [place] did not show intracranial bleed. Transferred to [place] for trauma and neurology work-up. Upon arrival, Pt without neurological deficit, GCS 15, c/o REYNA. Pt deemed hemodynamically stable and was sent to CT. Pain: Pain Assessment Pain Assessment: Faces Pain Level: 0 Assessment: Pt presents with mild-moderate cognitive deficits characterized by difficulty with immediate and short-term memory, verbal reasoning skills, and word associations. Pt. [place], which may haveaffected results of evaluation. Multiple repetitions provided throughout evaluation. Pt. Presents with no dysarthria, no O/M deficits at this time. ST to follow up and provide treatment to address noted deficits. Education provided. Recommendations: Requires ESCROW SECRETARY Intervention: Yes Duration/Frequency of Treatment: 3-5X/week D/C [...] 1126 Minutes 12 Completed by: Debi Andrade Metal Sash Setter Clinician Cosigned By: Taya Bergeron M.A.CCC/ESCROW SECRETARY 09/01/2020 11:40 AM * Caleb Jefferson MD [...] MD 09/01/2020 4:00 PM * Nader Petit, TIN ASSORTER - 09/01/2020 10:02 AM EDT Physical Therapy Facility/Department: [address] ORTHO/MED SURG Daily Treatment Note NAME: [...] Safe use of RW Barriers to Learning: [place] REQUIRES PT FOLLOW UP: Yes Activity Tolerance [...] 44 Timed Code Treatment Minutes: 40 Minutes TIN ASSORTER returned to pt's room to have her attempt stair management, to return home safely Individual Individual Time In 1140 Time Out 1205 Minutes 25 Timed Code Treatment Minutes: 9 Minutes (a doctor interrupted PT, to assess the pt) Nader Petit, TIN ASSORTER * Debi Marques OT - 09/01/2020 8:34 [...] 08/31/2020 3:09 PM EDT Physical Therapy Facility/Department: [facility] ED Initial Assessment NAME: Yeyo Avila : [...] Ambulation Assistance: Independent Transfer Assistance: Independent Active Turbogenerator Operator: Yes Mode of Transportation: Car 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[employer], 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 Cognition Cognition Overall Cognitive [...] Restraints Initially in place: No AM-PAC Score [facility] Inpatient Mobility Raw Score : 13 (08/31/201509) [facility] Inpatient T-Scale Score : 36.74 (08/31/201509) Mobility Inpatient CMS 0-100% Score: 64.91 (08/31/201509) Mobility Inpatient [facility] G-Code Modifier : CL (08/31/201509) Goals Short [...] section and content) DATE CREATED AUTHOR 04/06/2019 [facility] DATE CREATED AUTHOR AUTHOR'S ORGANIZ ATION 09/12/2020 [facility] DATE CREATED AUTHOR AUTHOR'S ORGANIZ ATION 03/28/2021 [facility] DATE CREATED AUTHOR AUTHOR'S ORGANIZ ATION 03/03/2022 [facility] DATE CREATED AUTHOR AUTHOR'S ORGANIZ ATION 04/25/2023 [facility] DATE CREATED AUTHOR AUTHOR'S ORGANIZ ATION 11/20/2023 [facility] DATE CREATED AUTHOR AUTHOR'S ORGANIZ ATION 12/04/2023 [facility] Reason for Visit (unrecogniz ed section and content) Reason Comments Fall Trauma Status Reason Specialty Diagnoses / Procedures Referre d By Contact Referred To Contact Diagnoses Syncope and collapse Procedures Syncope and collapse Hermelindo Adkins MD [address] [id number], [phone] [place] [phone] [facility] Care Teams (unrecognized sec tion and content) [...] BE BASED ON THE PRIMARY CLINICAL RECORDS. [employer] provides no warranty or guarantee of the accuracy or completeness of information in this document.
[2023-12-18 07:16] LABS: Glucometer 93 mg/dL (74-106)
[2023-12-18] MEDS: LACTATED RINGER'S SOLUTION 1,000 ML 50 ML IV (07:34)
[2023-12-18] MEDS: CEFAZOLIN SODIUM/DEXTROSE,ISO 1 GM/50 ML IV.SOLN IV (08:00)
--- NOTE | 2023-12-18 09:23 | PM.URSON ---
Urology Surgery Operative Note Operative Note Procedure Date: 12/18/23 Time Out Performed: yes Pre-op Diagnosis: Left renal calculi status post left stent placement Post-op Diagnosis: same as pre-op Procedures performed: 1. Cystoscopy. 2. Left stent changed to 6 Bahraini variable length. 3. Left ureteroscopy. 4. Left pyeloscopy. 5. Thulium laser lithotripsy of the left renal calculi. 6. Stone fragment basket extraction. Anesthesia: General-LMA Primary Surgeon: Arturo Doran Complications: None Estimated blood loss (mL): 5 Findings: Large left renal stone burden Specimens: Left renal stone fragments Drains: 6 [place]raini variable length left ureteral stent Indications for Procedures: This lady has multiple left renal calculi. One of them is 1.2 cm and the others are 6 to 8 mm in size. She has been stented. She now presents for definitive ureteroscopic laser lithotripsy and possible stent change. She has signed an informed consent after risks were explained. Detailed description of Procedure: The patient was brought to the operating room and placed on the operating room table in the supine position. SCDs were placed on the lower extremities and turned on and functioning during the entire case. Timeout was done by all parties in the room. We all agreed upon the patient's identification and the planned procedures for this patient. Genn. anesthesia was then administered. The patient was then repositioned into the modified dorsal lithotomy position. All pressure points were satisfactorily padded. Genitalia were sterilely prepped and draped in usual fashion. I started by passing a 22 Bahraini Olympus cystoscope per urethra and into the bladder. 9 encrusted stent was grasped with a flexible grasping forceps. The end of the stent was then brought out the urethral meatus. I then slid a Glidewire through the stent into the kidney and removed the old stent. I then passed a navigator 09/29 ureteral access sheath over the wire and up to the L5 level. The wire and stylette were then removed. I then passed a flexible ureteroscope through the access sheath and into the ureter and ascended up the ureter and went into the kidney. Pyeloscopy revealed there was a large stone within the mid to lower pole calyx and there were several other stones in adjacent calyces. I started on the large stone and used a 200 ? laser fiber. I then began lasering at 10 W continuously under the dusting mode. We increased to a maximum of 12 W. We had a copious amount of laser dust due to the large size of the stone. Once it was totally dusted we then went into the adjacent calyx and began dusting the other stones. We were able to dust all of them leaving just a few fragments. I then used a 0 tip nitinol basket and engaged the fragments and these were taken out and sent for stone analysis. Due to the copious amount of dust I elected to replace a stent so she would not get obstructed. A wire was passed in the access sheath and the sheath was removed. The cystoscope was backloaded over the wire and passed into the bladder. I then slid a 6 Bahraini variable length stent over the wire up into the kidney. The wire was removed and there were good curls in the kidney and in the bladder. The bladder was drained of its contents and the scope was then removed. She was then transferred to a [facility] bed and wheeled to PACU in stable condition.
[2023-12-18 09:28] LABS: Glucometer 106 mg/dL (74-106)
[2023-12-18] MEDS: HYDRALAZINE HCL 20 MG/ML VIAL 5 MG IVP ×2 (09:41→09:56)
--- NOTE | 2023-12-18 11:09 | PC.NURSE ---
Incontinent of large amount urine on cart; up to bathroom and does pericare; no bleeding noted
[2023-12-27 15:08] LABS: Calcium Oxalate Monohydrate 10 % (.); Size 2x2 mm (.); Uric Acid 90 % (.)
== END 2023-12-18 11:05 | disposition home or self-care (01) ==
PROVIDERS: PCP Family Medicine; Visit Provider Urology
PROC: (CPT 52356; principal; 2023-12-18 08:00)
DX: N20.0 Calculus of kidney (principal); E78.00 Pure hypercholesterolemia, unspecified; M79.7 Fibromyalgia; Z85.51 Personal history of malignant neoplasm of bladder; I10 Essential (primary) hypertension; E11.9 Type 2 diabetes mellitus without complications; Z79.01 Long term (current) use of anticoagulants; D64.9 Anemia, unspecified; J44.9 Chronic obstructive pulmonary disease, unspecified; I25.10 Atherosclerotic heart disease of native coronary artery without angina pectoris; F17.210 Nicotine dependence, cigarettes, uncomplicated; F32.A Depression, unspecified; Z90.710 Acquired absence of both cervix and uterus; Z79.02 Long term (current) use of antithrombotics/antiplatelets; Z79.4 Long term (current) use of insulin; Z79.84 Long term (current) use of oral hypoglycemic drugs; Z79.82 Long term (current) use of aspirin; Z95.5 Presence of coronary angioplasty implant and graft
CPT/HCPCS: 52356; 36415; 76000; 82365; 82948; 99999; J0360; J0690; J1100; J1885; J2250; J2405; J2704; J3010

== ENCOUNTER 2024-01-01 15:56 | Outpatient (OUT) | payer MEDICARE, SELFPAY ==
[2024-01-01 16:29] LABS: Calcium 9.4 mg/dL (8.5-10.1); Carbon Dioxide 28.1 mmol/L (21.0-32.0); Chloride 100 mmol/L (98-107); Estimated GFR (African America >60 (>=60); Estimated GFR (Non-African Ame 55 (>=60); Phosphorus 3.2 mg/dL (2.6-4.7); Sodium 139 mmol/L (136-145); Uric Acid 4.9 mg/dL (2.6-6.0)
[2024-01-01 16:55] LABS: Creatinine Urine Random 87.77 mg/dL (20.00-300.00); Sodium Urine Random 74 mmol/L (30-90)
[2024-01-01 17:13] LABS: Sodium 24 Hour Urine 126 mmol/24h (40-220); Total Volume 24 Hour Urine 1700 mL/24hr
[2024-01-03 04:07] LABS: Magnesium, U 8.5 mg/dL (Not Estab.); Magnesium,Urine 24hr 148.8 mg/24 hr (12.0-293.0); Phosphorus, Urine 64.5 mg/dL (Not Estab.); Phosphorus,Urine 24h 1129 mg/24 hr (261-1078)
[2024-01-03 06:08] LABS: Uric Acid, Urine 43.7 mg/dL (Not Estab.); Uric Acid,Urine 24hr 764.8 mg/24 hr (142.3-713.2)
[2024-01-04 12:07] LABS: PTH, Intact 63 pg/mL (15-65)
[2024-01-05 16:16] LABS: Oxalates, Urine 12 mg/L (Undefined); Oxalates, Urine 24hr 21 mg/24 hr (4-31)
[2024-01-05 17:07] LABS: Citric Acid, U, 24hr 754 mg/24 hr (320-1240); Citric Acid, Urine 431 mg/L (Undefined)
== END 2024-01-01 15:57 | disposition home or self-care (01) ==
LOC: LAB 15:56
PROVIDERS: PCP Family Medicine; Visit Provider Urology
DX: N20.0 Calculus of kidney (principal)
CPT/HCPCS: 36415; 81050; 82310; 82340; 82374; 82435; 82507; 82565; 82570; 83735; 83945; 83970; 84100; 84105; 84295; 84300; 84520; 84550; 84560

== ENCOUNTER 2024-01-23 08:45 | Outpatient (OUT) | payer MEDICARE, SELFPAY ==
--- OUTSIDE RECORDS SUMMARY | 2024-01-23 08:56 | XMS_ITS | CCD ---
Author Name Unknown Address [address] [place] [address] Organization [facility] Care Team Providers Care Ocular Pathologist Name Role Phone Robin Ponce Primary Care Provider [phone] HERMELINDO ADKINS Consulting Unavailable ROBIN PONCE Primary Care Unavailable HERMELINDO ADKINS Attending Unavailable HERMELINDO ADKINS Admitting Unavailable LONDON VALLEJO Consulting Unavailable ELTAJES, EHAB A Attending Unavailable VIJAY PARDOAB Sean Admitting Unavailable ROBIN PONCE Referring Unavailable ROBIN PONCE Primary Care Unavailable MD Darby Hernandez Primary Care Provider MD Ese Tan Attending Provider SHAIKH HERNANDEZ Primary Care Physician DR DANK JOHNSON Admitting UnavailDR ROBIN Marie Primary Care Unavailable DR DANK JOHNSON Attending UnavailREYNA Ni Consulting UnavailLISSETT Simon Consulting Unavailable DR ROBIN SEGOVIA Primary Care Unavailable JEFFRY WILLIAMSON Admitting Unavailable SHELLEY II, TIMOTEO Consulting Unavailable TAMLYN ., JEFFRY Attending Unavailable FAVIO ., JEFFRY Consulting Unavailable CHITO DE SOUZA Consulting Unavailable SHAIKH Enio HERNANDEZ Admitting Unavailable SHAIKH Enio HERNANDEZ Attending Unavailable SHAIKH Enio HERNANDEZ Primary Care Unavailable DR ROBIN SEGOVIA Admitting Unavailable DR ROBIN SEGOVIA Attending Unavailable DR ROBIN SEGOVIA Consulting Unavailable SHAIKH Enio HERNANDEZ Primary Care Unavailable [facility] Admitting Unavailable MISC, DOCTOR Attending Unavailable MISC, DR SONI Consulting Unavailable KRIS ., DR KELLY Primary Care Unavailable KATELYN, DR MERCEDES Bates Consulting Unavailable MISC, DR SONI Attending Unavailable MISC, DR SONI Consulting Unavailable MISC, DR SONI Admitting Unavailable FAWWAD, TRENT H Primary Care Unavailable REGIS, DR ZELALEM Bates Admitting Unavailable FATalWAD, TRENT H Primary Care Unavailable REGIS, DR ZELALEM Bates Attending Unavailable REGIS, DR ZELALEM Bates Consulting Unavailable MIKAEL GUZMAN Consulting Unavailable Robin Ponce Primary Care Physician JONO LOPEZ Attending Unavailable JONO LOPEZ Attending Unavailable ALEXIA CLINE Attending Unavailable DOLAN, Arturo Bates Attending Unavailable DOLAN, Arturo Bates Referring Unavailable DOLAN, Arturo Bates Admitting Unavailable DOLANArturo Attending Unavailable OJUKWULeann Attending Unavailable FAWWAD, TRENT Primary Care Unavailable Sunshine DUARTE Admitting Unavailable Hajdari, Astrit H Attending Unavailable FAWWAD, TRENT Primary Care Unavailable DOLANArturo Attending Unavailable DOLAN, Arturo Bates Attending Unavailable Allergies Allergy Classification Reported Allergen(s) Allergy Type Date of Onset Reaction(s) Facility Angiotensin Converting Enzyme (RYANNE) Inhibitors (1 source) Lisinopril Drug Allergy [facility] Repository Anti-Epileptic Agents (1 source) topiramate Drug Allergy 011 [facility] Rep[facility] Berries (1 source) [place] Food Allergy [facility] Rep[facility] Cats (1 source) Cat Animal Allergy (Dander) [facility] Dextroamphetamine (1 source) Dextroamphetamine Drug Allergy 011 [facility] Rep[facility] Iodine (and Iodine containting drugs) (1 source) Iodine (And Iodine Containting Drugs) Drug Allergy [facility] Rep[facility] Unclassified (2 sources) BLUE DYE; Translations: [BLUE DYE] Drug allergy (disorder) [facility] (7 sources) Aspirin; Translations: [Aspirin] Drug Allergy 016 [facility] Comment on above: uncoded aspirin (5 sources) atorvastatin; Translations: [atorvastatin] Drug Allergy Unknown Reaction [facility] (8 sources) Lisinopril; Translations: [Lisinopril] Drug Allergy Swelling of Lip/Tongue/Th roat, morphine [facility] (2 sources) Morphine; Translations: [morphine] Drug Allergy [facility] (4 sources) strawberry allergenic extract; Translations: [[place]] Drug Allergy [facility] (5 sources) topiramate; Translations: [topiramate] Drug Allergy Urticaria (disorder) [facility] (1 source) cat dander Allergy to substance [facility] (2 sources) Iodinated Contrast Media; Translations: [IODINATED CONTRAST MEDIA] Allergy to substance [facility] (4 sources) Contrast media; Translations: [Contrast Dye] Drug allergy Urticaria (disorder) [facility] (4 sources) [place]; Translations: [Strawberries] Drug allergy Urticaria (disorder) [facility] (4 sources) SUMAtriptan; Translations: [sumatriptan] Drug Allergy [facility] (1 source) Acetaminophen / Aspirin / Caffeine Drug Allergy [facility] (2 sources) Dextroamphetamine; Translations: [Lipitor] Drug Allergy [facility] (2 sources) Iodine (And Iodine Containting Drugs) Drug allergy (disorder) [facility] (1 source) Ketorolac Drug Allergy [facility] (1 source) Plasmin Drug Allergy [facility] (3 sources) topiramate; Translations: [Topamax] Drug Allergy [facility] (2 sources) Dhe Drug allergy (disorder) [facility] (2 sources) Cat/Feline Product Derivatives Drug allergy (disorder) [facility] (1 source) Iodine; Translations: [IODINE] Drug Allergy [facility] Rep[facility] (1 source) CAT/FELINE PRODUCTS; Translations: [CAT/FELINE PRODUCTS] Propensity to adverse reactions to drug (disorder) [facility] Repository Medications Current Medications Medication Drug Class(es) [...] by mouth every six hours as needed egurcdfeiq-fyqliqswwbrat-ehczesza (DAISY CET, ESGIC) 50-325-40 MG per tablet Take 1 tablet by mouth every 6 hours as needed for Migraine 0 08/04/2020 09/01/2020 Discontinued (REORDER) acetaminophen 325 mg / HYDROcodone bitartrate 5 mg oral tablet (4 sources) Opioid Agonist Start: 11-12-2023 acetaminophen- hydrocodone 325 mg-5 mg oral tablet Refill(s) 0 Start Date: 11/12/23 Status: Ordered Start: 09-25-2010 Vicodin Oral, q4hr, Refill(s) 0 Start Date: 09/25/10 Status: Ordered acetaminophen 325 mg / oxyCODONE hydrochloride 5 mg oral tablet (1 source) Opioid Agonist Start: 07-13-2023 End: 07-16-2023 Percocet 5 mg-325 mg oral tablet 1 tab(s), Oral, q6hr as needed for pain for 3 day(s), 15 tab(s), Refill(s) 0, [facility]/pharmacy #[id number], 165, cm, 07/13/23 11:34:00 EDT, Height/Length [...] 81 mg, Oral, DAILY, First dose on Erinn 08/31/20 at 0900 Do NOT administer if bleed present on follow up CT-Head. Aspirin 81 mg Tab-EC (3 sources) Start: 07-06-2015 take 1 tablet by [...] mg, Oral, NIGHTLY, F irst dose on Erinn 08/31/20 at 2100 carvedilol 25 mg oral tablet (4 sources) alpha-Adrenergic Grabiel, beta-Adrenergic Grabiel Start: 10-24-2018 take 25 mg by mouth twice daily Carvedilol Active 25 MG PO Twice daily October 24, 2018 9:44pm Start: 07-06-2015 take 1 tablet by ray th twice daily Coreg 12.5 mg Tab 12.5 mg = 1 tab(s), Oral, BID, Refills(s) 0 Start Date: 07/06/15 Status: Ordered cephalexin 500 mg oral capsule (1 source) Cephalosporin Antibacterial Start: 11-12-2023 cephalexin 500 mg Cap Refills(s) 0 Start Date: 11/12/23 Status: Ordered citalopram 20 mg oral tablet (4 sources) Serotonin Reuptake Inhibitor Start: 10-24-2018 take 1 tablet by mouth once daily Citalopram (Celexa) 20 mg Tablet Active 20 MG PO Daily October 24, 2018 9:44pm Start: 07-06-2015 take 1 tablet by ray once daily CeleXA 40 mg Tab 40 [...] at 1400 clopidogrel 75 mg oral tablet (6 sources) P2Y12 Platelet Inhibitor Start: 07-06-2015 take [...] Start: 08-22-2020 take 1 capsule by mo [facility] once daily DULoxetine (CYMBALTA) 60 MG [...] PO Daily October 26, 2018 6:26pm hydrOXYzine pamoate 25 mg oral capsule (3 sources) Antihistamine Start: 11-12-2023 hydrOXYzine pamoate 25 mg Cap Refills(s) 0 Start Date: 11/12/23 Status: Ordered Start: 09-01-2020 take 25 mg by mouth four times daily as needed for anxiety 25 mg, Oral, 4 TIMES DAILY PRN, Anxiety, Starting 09/01/20 at 1321 Start: 06-01-2020 take 1 capsule by mo ut four times daily as needed for anxiety hydrOXYzine (VISTARIL) 25 MG capsule Take 1 capsule by mouth 4 times daily as needed for Anxiety 0 06/01/2020 Active 3 ml insulin isophane, human 70 unt/ml / insulin, regular, human 30 unt/ml pen injector (1 source) Insulin Start: 11-12-2023 NovoLIN 70/30 FlexPen subcutaneous suspension Refills(s) 0 Start Date: 11/12/23 Status: Ordered iopamidol (ISOVUE-370) 76 % injection 70 mL (1 source) Start: 08-30-2020 iopamidol (ISOVUE-370) 76 % injection 70 mL irbesartan 150 mg oral tablet (1 source) Angiotensin 2 Receptor Grabiel Start: 08-14-2020 take 1 tablet by mouth once daily irbesartan (AVAPRO) 150 MG tablet Take 1 tablet by mouth daily 0 08/14/2020 Active 24 hr isosorbide mononitrate 60 mg extended release oral tablet (1 source) Nitrate Vasodilator Start: 11-12-2023 isosorbide mononitrate 60 mg ER Tab Refills(s) 0 Start Date: 11/12/23 Status: Ordered isosorbide dinitrate 30 mg oral tablet (2 sources) Nitrate Vasodilator Start: 07-06-2015 take 30 mg by mouth once daily isosorbide dinitrate 30 mg, Oral, Daily, Refills(s) 0 Start Date: 07/06/15 Status: Ordered losartan potassium 50 mg oral tablet (1 source) Angiotensin 2 Receptor Grabiel Start: 09-01-2020 losartan (COZAAR) tablet 50 mg nitroglycerin 0.4 mg sublingual tablet (1 source) Nitrate Vasodilator Start: 11-12-2023 nitroglycerin 0.4 mg sublingual Tab Refills(s) 0 Start Date: 11/12/23 Status: Ordered omeprazole 40 mg delayed release oral capsule (4 sources) Proton Pump Inhibitor Start: 07-06-2015 take 1 capsule by mouth once daily omeprazole 40 mg Cap-EC 40 mg = 1 cap(s), Oral, Daily, Refills(s) 0 Start Date: 07/06/15 Status: Ordered ondansetron 4 mg disintegrating oral tablet (3 sources) Serotonin-3 Receptor Antagonist Start: 11-12-2023 ondansetron 4 mg Dis Tab Refills(s) 0 Start Date: 11/12/23 Status: Ordered Start: 08-31-2020 End: 08-31-2020 ondansetron (ZOFRAN) injecti on 4 mg perflutren lipid microspheres (DEFINITY) injection 1.65 mg (1 source) Start: 08-31-2020 1.65 mg (1.5 mL), Intravenous, IMG ONCE PRN, Other, Inability to detect 2 or more contiguous segments in any of the 3 apical views due to poor endocardial border definition, Starting Erinn 08/31/20 at 0353, For 1 dose Echocardiogram [...] administer the echo contrast. polyethylene glycol 3350 57237 mg powder for oral solution (1 source) Osmotic Laxative Start: 08-31-2020 17 g, Oral, DAILY PRN, Constipation, Starting Erinn 08/31/20 at 0353 First line therapy for constipation pravastatin sodium 10 mg oral tablet (3 sources) HMG-CoA Reductase Inhibitor Start: 09-07-2010 take [...] chloride bolus tiZANidine 4 mg oral tablet (3 sources) Central alpha-2 Adrenergic Agonist Start: 07-06-2015 [...] 10 MIN PRN, High Blood Pressure, Starting Erinn 08/31/20 at 0353 Administer 10 mg IV [...] 9:44pm March 19, 2021 9:17pm 2 ml prochlorperazine 5 mg/ml injection (2 [...] site, without rupture] Onset: 02-24-2023 Chronic Asthma (3 sources) Asthma 12-05-2021 Chronic Calculus of urinary tract (4 sources) Kidney stone; Translations: [Calculus of ureter] Onset: 04-03-2023 12-05-2021 Episodic Cancer of bladder (6 sources) Malignant tumor of urinary bladder 07-06-2015 Chronic Cancer of bladder (1 source) Personal history of malignant neoplasm of bladder; Translations: [PERSONAL HX MALIG NEOPLASM BLADDER] Onset: 04-16-2023 Episodic Cancer; other and unspecified primary (1 source) H/O: malignant neoplasm 11-12-2023 Episodic Chronic obstructive pulmonary disease and bronchiectasis (8 sources) Chronic obstructive lung disease; Translations: [Chronic obstructive pulmonary disease, unspecified] Onset: 02-14-2023 12-05-2021 Chronic Congestive heart failure; nonhypertensive (3 sources) Heart failure, unspecified; Translations: [Chronic systolic (congestive) heart failure] Onset: 03-10-2023 Chronic Coronary atherosclerosis and other heart disease (10 sources) Coronary arteriosclerosis; Translations: [Atherosclerotic heart disease of [place] coronary artery without angina pectoris] Onset: 02-24-2023 03-20-2021 Chronic Coronary atherosclerosis and other heart disease (2 sources) Presence of coronary angioplasty implant and graft; Translations: [Coronary angioplasty status] Onset: 04-03-2023 Episodic Deficiency and other anemia (3 sources) Anemia 12-05-2021 Episodic Diabetes mellitus without complication (6 sources) Diabetes mellitus; Translations: [Type 2 diabetes mellitus without complications] Onset: 02-24-2023 03-20-2021 Chronic Diseases of white blood cells (1 source) Leukocytosis; Translations: [Elevated white blood cell count, unspecified] 03-20-2021 Chronic Disorders of lipid metabolism (9 sources) Hyperlipidemia; Translations: [Hyperlipidemia, unspecified] Onset: 02-24-2023 03-20-2021 Chronic Diverticulosis and diverticulitis (3 sources) Diverticular disease 01-28-2014 Chronic Esophageal disorders (1 source) Gastro-esophageal reflux disease without esophagitis; Translations: [GERD WITHOUT ESOPHAGITIS] Onset: 04-16-2023 Chronic Essential hypertension (11 sources) Hypertensive disorder; Translations: [Essential (primary) hypertension] [...] [Nausea with vomiting, unspecified] 03-20-2021 Episodic Osteoarthritis (4 sources) Arthritis; Translations: [Unspecified osteoarthritis, unspecified site] Onset: 04-16-2023 12-05-2021 Chronic Other aftercare (1 source) Long-term current use of drug therapy; Translations: [Other terminal operator (current) drug therapy] Onset: 02-24-2023 Episodic Other aftercare (1 source) custodial (current) use of insulin; Translations: [BEEF SKINNER CURRENT USE OF INSULIN] Onset: 04-16-2023 Episodic Other aftercare (1 source) Other correction (current) drug therapy; Translations: [OTH FCI CURRENT DRUG THERAPY] Onset: 04-16-2023 Episodic Other and ill-defined heart disease (3 sources) Heart disease 12-05-2021 Chronic Other circulatory disease (2 sources) History of cerebrovascular accident; Translations: [History of stroke] 08-31-2020 Episodic Other circulatory disease (1 source) Personal history of transient ischemic attack (TIA), and cerebral infarction without residual deficits; Translations: [PERS HX TIA AND CI NO RESID DEFICIT] Onset: 04-16-2023 Episodic Other connective tissue disease (3 sources) Fibromyositis 01-28-2014 Episodic Other connective tissue disease (1 source) Fibromyalgia; Translations: [FIBROMYALGIA] Onset: 04-16-2023 Episodic Other diseases of kidney and ureters (1 source) Cyst of kidney 11-12-2023 Episodic Other injuries and conditions due to [...] AND UTERUS] Onset: 04-03-2023 Episodic Substance-related disorders (4 sources) Smoker; Translations: [Nicotine dependence, cigarettes, uncomplicated] [...] 03-10-2023 03-20-2021 Episodic Other aftercare (1 source) 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 of antithrombotics/anti platelets; Translations: [BEEF SKINNER ANTITHROMBOT/ANTIPLA TLETS] Onset: 2022 Episodic Other aftercare (1 source) custodial (current) use of aspirin; Translations: [FCI CURRENT USE OF ASPIRIN] Onset: 2022 Episodic Other aftercare (1 source) 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 of oral hypoglycemic drugs; Translations: [BEEF SKINNER USE ORAL HYPOGLYCEMIC DX] Onset: 2022 Episodic [...] [Near syncope] Onset: 08-31-2020 08-31-2020 Episodic Unclassified (3 sources) Cystoscopy and transurethral resection of bladder tumor 09-07-2010 Results Test Name Value Interpretation Reference Range Facility [facility] Reportson 01-06-2024 Lab Reports [id number] #1.00TIFF Normal [facility] Lab Reports [id number] #1.00TIFF Normal [facility] Lab Reports [id number] #1.00TIFF Normal [facility] Lab Reportson 01-05-2024 Lab Reports [id number] #1.00TIFF Normal [facility] Lab Reportson 01-02-2024 Lab Reports [id number] #1.00TIFF Normal [facility] Lab Reports [id number] #1.00TIFF Normal [facility] Consent for Procedure/Surger yon 12-30-2023 Consent for Procedure/Surgery [id number] 7#1.00TIFF Normal [facility] Consent for Treatmenton 12-18 Consent for Treatment [id number] #1.00TIFF [facility] IntraOperative Documentson 0 12-30-2023 IntraOperative Documents [id number]#1.00TIFF [facility] Main OR Intraoperative Recor don 12-30-2023 Main OR Intraoperative Record Normal [facility] Main OR Preoperative Recordo n 12-30-2023 Main OR Preoperative Record Normal [facility] Operative Reporton Operative Report Normal [facility] Comment on above: Result Comment: Elec tronically Signed By: MAGDALENO PRADO, Arturo Busch.diane\Date and Time Signed: 12/30/23 11:59 EST Patient Educationon 12-30-19 24 Patient Education Normal [facility] Lab Reportson 12-29-2023 Lab Reports [id number] #1.00TIFF [facility] Lab Reportson 12-19-2023 Lab Reports [id number] #1.00TIFF Normal [facility] Lab Reports [id number] #1.00TIFF Normal [facility] Operative Reporton Operative Report [id number] #1.00TIFF Normal [facility] Lab Reportson 12-12-2023 Lab Reports [id number] #1.00TIFF Normal [facility] Lab Reports [id number]# 1.00TIFF Normal [facility] Consultation Noteon 12-04-19 Consultation Note [id number] #1.00TIFF Normal [facility] Formson 12-04-2023 Forms [id number]# 1.00TIFF Normal [facility] Documentationon 12-03-2023 Documentation [id number] Yeyo Avila 1955 F Date Provider Department Center 12/03/2023 Adryan-ALEXIA CLINE [facility]. No family history on file Normal [facility] Consent for Procedure/Surger yon 11-28-2023 Consent for Procedure/Surgery [id number] 9#1.00TIFF Normal [facility] RAD - MISCon 11-19-2023 RAD - MISC [id number] #1.00TIFF Normal [facility] Consent for Procedure/Surger yon 11-13-2023 Consent for Procedure/Surgery [id number] #1.00TIFF Normal [facility] ECG 12-Leadon 11-13-2023 ECG 12-Lead [id number] #1.00TIFF Normal [facility] Lab Reportson 11-13-2023 Lab Reports [id number] #1.00TIFF Normal [facility] Operative Reporton Operative Report [id number] #1.00TIFF Normal [facility] RAD - MISCon 11-13-2023 RAD - MISC [id number] #1.00TIFF Normal [facility] Ambulatory Visit Summaryon 01-13-2023 Ambulatory Visit Summary Normal [facility] Ambulatory Visit Summary Normal [facility] ECG 12-Leadon 11-12-2023 ECG 12-Lead [id number] #1.00TIFF [facility] ED Note-Physicianon 11-12-20 ED Note-Physician [id number] #1.00TIFF Normal [facility] Lab Reportson 11-12-2023 Lab Reports [id number] #1.00TIFF [facility] Patient Educationon 11-12-20 Patient Education Normal [facility] RAD - CT Reporton 11-12-2023 RAD - CT Report [id number] #1.00TIFF [facility] Urology Office/Clinic Noteon 11-12-2023 Urology Office/Clinic Note Normal [facility] Comment on above: Result Comment: Elec tronically Signed By: Arturo DOLAN MD\.br\Date and Time Signed: 11/12/23 10:49 EST\.br\Electronically Co-Signed By: Francie Myers\.br\Date and Time Co-Signed: 11/12/23 10:44 EST Consent for Treatmenton 06-18 Consent for Treatment [id number] #1.00CD:127 Normal [facility] Discharge Instructionson Discharge Instructions [id number] #1.00CD:127 Normal [facility] ED Clinical Summaryon 2022 ED Clinical Summary Normal Doron b[facility] ED Note-Physicianon 07-13-20 ED Note-Physician Normal [facility] Comment on above: Result Comment: Elec tronically Signed By: Mathew Montana PA-C\.br\Date and Time Signed: 07/13/23 12:04 EDT\.br\Electronically Co-Signed By: Zaki Muñoz M.D.\.br\Date and Time Co-Signed: 07/13/23 12:37 EDT ED Patient Education Noteon 07-13-2023 ED Patient Education Note Normal [facility] ED Patient Summaryon 023 ED Patient Summary Normal [facility] Office Visiton 07-08-2023 Follow-up visit [id number] Yeyo Avila S 1955 Date Provider Department Center 07/08/2023 120-ALEXIA CLINE [facility] No family history on file Level of Service:52288 DC OFFICE/OUTPATIENT ESTABLISHED MOD MDM 30-39 MIN Reason for Visit and Comments: Hospital Follow-up [832] - Chest pain Normal [facility] Office Visiton 04-25-2023 Follow-up visit [id number] Yeyo Avila S 1955 F Date Provider Department Center 04/25/2023 [id number] LOPEZ [facility] No family history on file Level of Service:87699 DC OFFICE/OUTPATIENT ESTABLISHED LOW MDM 20-29 MIN Normal [facility] POINT OF CARE GLUCOSEon 05-3 Glucose [Mass/Vol] 90 mg/dL Normal 74-[address] [facility] Comment on above: Performed By: #### P OCGLUC #### [facility] [address] [place] [address] Dr. Win Ardon CARDIAC STRESS TESTon 2022 [...] reported nuclear myocardial perfusion imaging. Normal [facility] CBC AUTO DIFFon 04-01-2023 BASO # 0.1 103/ul Normal 0.0-0.1 [facility] Comment on above: Performed By: #### C BC #### [facility] [address] [address] [address] Win Ardon Basophils/100 WBC (Bld) 1.3 % Normal 0.2-2.0 [facility] Comment on above: Performed By: #### C BC #### [facility] [address] [address] [address] iWn Ardon EO # 0.4 103/ul Normal 0.0-0.7 [facility] Comment on above: Performed By: #### C BC #### [facility] [address] [address] [address] Win Ardon Eosinophils/100 WBC (Bld) 4.1 % Normal 0.9-7.0 [facility] Comment on above: Performed By: #### C BC #### [facility] [address] [address] [address] Win Ardon Erythrocyte distribution width (RBC) [Ratio] 13.3 % Normal 11.0-15.0 [facility] Comment on above: Performed By: #### C BC #### [facility] [address] [address] [address] Win Ardon Hematocrit (Bld) [Volume fraction] 38.9 % Normal 36.0-48.0 [facility] Comment on above: Performed By: #### C BC #### [facility] [address] [place] [address] Dr. Win Ardon Hemoglobin (Bld) [Mass/Vol] 13.2 g/dL Normal 12.0-16.0 [facility] Comment on above: Performed By: #### C BC #### [facility] [address] [place] [address] Dr. Win Ardon IG # 0.04 10e3/ul Critically high 0.00-0.03 [facility] Comment on above: Performed By: #### C BC #### [facility] [address] [place] [address] Dr. Win Ardon IG % 0.4 % Normal 0.0-0.5 [facility] Comment on above: Performed By: #### C BC #### [facility] [address] [place] [address] Dr. Win Ardon LYMPH # 3.2 103/ul Normal 1.2-3.8 [facility] Comment on above: Performed By: #### C BC #### [facility] [address] [place] [address] Dr. Win Ardon Lymphocytes/100 WBC (Bld) 34.7 % Normal 20.5-60.0 [facility] Comment on above: Performed By: #### C BC #### [facility] [address] [place] [address] Dr. Win Ardon MANUAL DIFF REQ NO Normal [facility] Comment on above: Performed By: #### C BC #### [facility] [address] [place] [address] Dr. Win Ardon MCH (RBC) [Entitic mass] 31.3 pg Normal 26.7-34.0 [facility] Comment on above: Performed By: #### C BC #### [facility] [address] [place] [address] Dr. Win Ardon MCHC (RBC) [Mass/Vol] 33.9 g/dL Normal 29.9-35.2 [facility] Comment on above: Performed By: #### C BC #### [facility] [address] [address] [address] Win Ardon MCV (RBC) [Entitic vol] 92.2 fL Normal 81.0-99.0 [facility] Comment on above: Performed By: #### C BC #### [facility] [address] [address] [address] Win Ardon MONO # 0.7 103/ul Normal 0.3-0.8 [facility] Comment on above: Performed By: #### C BC #### [facility] [address] [place] [address] Dr. Win Ardon Monocytes/100 WBC (Bld) 7.1 % Normal 1.7-12.0 [facility] Comment on above: Performed By: #### C BC #### [facility] [address] [place] [address] Dr. Win Ardon NEUT # 4.9 103/ul Normal 1.4-6.5 [facility] Comment on above: Performed By: #### C BC #### [facility] [address] [place] [address] Dr. Win Ardon Neutrophils/100 WBC (Bld) 52.4 % Normal 43.0-75.0 [facility] Comment on above: Performed By: #### C BC #### [facility] [address] [place] [address] Dr. Win Ardon Platelet mean volume (Bld) [Entitic vol] 10.6 fL Normal 9.5-13.5 [facility] Comment on above: Performed By: #### C BC #### [facility] [address] [place] [address] Dr. Win Ardon PLT 231 103/ul Normal 150-450 [facility] Comment on above: Performed By: #### C BC #### [facility] [address] [place] [address] Dr. Win Ardon RBC 4.22 106/ul Normal 4.20-5.40 [facility] Comment on above: Performed By: #### C BC #### [facility] [address] [place] [address] Dr. Win Ardon WBC 9.3 103/ul Normal 4.0-11.0 [facility] Comment on above: Performed By: #### C BC #### [facility] [address] ABD/PELVIS WO CONon [...] by: LISSETT ALAN Date: 2023-04-01 20:03 Normal [facility] LACTATE/LACTIC ACIDon 2022 Lactate [Moles/Vol] 1.2 mmol/L Normal 0.4-2.0 [facility] Comment on above: Performed By: #### L ACT #### [facility] [address] [address] [address] 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 Order #: [id number] CLICK HERE TO VIEW EXAM RADIOLOGY REPORT [...] M.D. on 04/02/2023 at 11:10 Normal [facility] OCC BLD IMMUNO SCREENon 03-17 OCCULT BLOOD Positive Abnormal NEGATIVE [facility] Comment on above: Performed By: #### O BSCRN #### [facility] [address] [place], [place] [address] Dr. Win Ardon PROF 14(COMP METB)on 023 Albumin [Mass/Vol] 3.8 g/dL Normal 3.4-5.[address] [facility] Comment on above: Performed By: #### C MP ####[facility] [address] [address]Dr. Win Ardon Albumin/Globulin [Mass ratio] 1.1 {ratio} Normal [facility] Comment on above: Performed By: #### C MP ####[facility] [address] [place], [place] [address]Dr. Win Ardon ALP [Catalytic activity/Vol] 99 U/L Normal 46-116 [facility] Comment on above: Performed By: #### C MP ####[facility] [address] [place], [place] [address]Dr. Win Ardon ALT [Catalytic activity/Vol] 17 U/L Normal 14-59 [facility] Comment on above: Performed By: #### C MP ####[facility] [address] [place], [place] [address]Dr. Win Ardon Anion gap [Moles/Vol] 13.4 mmol/L Normal [facility] Comment on above: Performed By: #### C MP ####[facility] [address] [place], [place] [address]Dr. Win Ardon AST [Catalytic activity/Vol] 11 U/L Critically low 15-37 [facility] Comment on above: Performed By: #### C MP ####[facility] [address] [place], [place] [address]Dr. Win Ardon Bilirubin [Mass/Vol] 0.6 mg/dL Normal 0.2-1.0 [facility] Comment on above: Performed By: #### C MP ####[facility] [address] [place], [place] [address]Dr. Win Ardon Calcium [Mass/Vol] 9.1 mg/dL Normal 8.5-10.[address] [facility] Comment on above: Performed By: #### C MP ####[facility] [address] [place], [place] [address]Dr. Win Ardon Chloride [Moles/Vol] 106 mmol/L Normal 98-107 [facility] Comment on above: Performed By: #### C MP ####[facility] [address] [place], [place] [address]Dr. Win Ardon CO2 [Moles/Vol] 29.2 mmol/L Normal 21.0-32.0 [facility] Comment on above: Performed By: #### C MP ####[facility] [address] [address]Dr. Win Duglas Creatinine [Mass/Vol] 0.95 mg/dL Normal 0.55-1.02 [facility] Comment on above: Performed By: #### C MP ####[facility] [address] [address]Dr. Win Duglas EGFR-AF [facility] >60 Normal >=60 [facility] Comment on above: Performed By: #### C MP ####[facility] [address] [place], [place] [address]Dr. Win Duglas EGFR-NON AF [facility] 59 mL/min/1.73m2 Critically low >=60 [facility] Comment on above: Performed By: #### C MP ####[facility] [address] [place], [place] [address]Dr. Win Duglas Globulin (S) [Mass/Vol] 3.4 g/dL Normal [facility] Comment on above: Performed By: #### C MP ####[facility] [address] [place], [place] [address]Dr. Win Duglas Glucose [Mass/Vol] 162 mg/dL Critically high 74-106 T [facility] Comment on above: Performed By: #### C MP ####[facility] [address] [place], [place] [address]Dr. Win Duglas Potassium [Moles/Vol] 3.6 mmol/L Normal 3.5-5.1 [facility] Comment on above: Performed By: #### C MP ####[facility] [address] [place], [place] [address]Dr. Win Ardon Protein [Mass/Vol] 7.2 g/dL Normal 6.4-8.2 [facility] Comment on above: Performed By: #### C MP ####[facility] [address] [place], [place] [address]Dr. Claudiaaida Ardon Sodium [Moles/Vol] 145 mmol/L Normal 136-[address] [facility] Comment on above: Performed By: #### C MP ####[facility] [address] [place], [place] [address]Dr. Win Ardon Urea nitrogen [Mass/Vol] 14.0 mg/dL Normal 7.0-18.0 [facility] Comment on above: Performed By: #### C MP ####[facility] [address] [place], [place] [address]Dr. Win Ardon Urea nitrogen/Creatinine [Mass ratio] 14.7 mg/mg Normal [facility] Comment on above: Performed By: #### C MP ####[facility] [address] [place], [place] [address]Dr. Win Ardon PROTIMEon 04-01-2023 INR Coag (PPP) [Relative time] 1.02 {INR} Normal [facility] Comment on above: Performed By: #### P TT, PT ####[facility] [address] [place], [place] [address]Dr. Win Ardon INR GUIDELINES SEE BELOW Normal [facility] Comment on above: Result Comment: MAGDA RED INR: 2.0 - 3.0 CONDITIONS NOT LISTED BELOW 2.5 - 3.5 FOR PROSTHETIC HEART VALVE REPLACEMENT 2.5 - 3.5 RECURRENT THROMBOSIS Performed By: #### P TT, PT ####[facility] [address] [place], [place] [address]Dr. Win Ardon PT Coag (PPP) [Time] 10.8 s Normal 9.0-11.6 [facility] Comment on above: Performed By: #### P TT, PT ####[facility] [address] [place], [place] [address]Dr. Win Ardon PTTon 04-01-2023 aPTT Coag (Bld) [Time] 26.5 s Normal 22.3-36.2 [facility] Comment on above: Performed By: #### P TT, PT ####[facility] [address] [place], [place] [address]Dr. Win Ardon TYPE AND SCREENon 04-01-2023 TYPE AND SCREEN Negative Normal [facility] Comment on above: Performed By: #### T NS ####[facility] [address] [address]Dr. Claudiaaida Duglas CBC AUTO DIFFon 03-24-2023 BASO # 0.1 103/ul Normal 0.0-0.1 [facility] Comment on above: Performed By: #### C BC ####[facility] [address] [place], [place] [address]Dr. Win Ardon Basophils/100 WBC (Bld) 1.0 % Normal 0.2-2.0 [facility] Comment on above: Performed By: #### C BC ####[facility] [address] [place], [place] [address]DrOtilia Ardon EO # 0.3 103/ul Normal 0.0-0.7 [facility] Comment on above: Performed By: #### C BC ####[facility] [address] [place], [place] [address]Dr. Win Ardon Eosinophils/100 WBC (Bld) 3.3 % Normal 0.9-7.0 [facility] Comment on above: Performed By: #### C BC ####[facility] [address] [place], [place] [address]Dr. Win Ardon Erythrocyte distribution width (RBC) [Ratio] 13.2 % Normal 11.0-15.0 [facility] Comment on above: Performed By: #### C BC ####[facility] [address] [place], [place] [address]Dr. Win Ardon Hematocrit (Bld) [Volume fraction] 41.3 % Normal 36.0-48.0 [facility] Comment on above: Performed By: #### C BC ####[facility] Rxzyzrtill[address] [place], [place] [address]Dr. Win Ardon Hemoglobin (Bld) [Mass/Vol] 13.6 g/dL Normal 12.0-16.0 [facility] Comment on above: Performed By: #### C BC ####[facility] T[address] [place], [place] [address]DrOtilia Ardon IG # 0.04 10e3/ul Critically high 0.00-0.03 [facility] Comment on above: Performed By: #### C BC ####[facility] [address] [address]DrOtilia Ardon IG % 0.4 % Normal 0.0-0.5 [facility] Comment on above: Performed By: #### C BC ####[facility] [address] [address]DrOtilia Ardon LYMPH # 2.2 103/ul Normal 1.2-3.8 [facility] Comment on above: Performed By: #### C BC ####[facility] [address] [address]DrOtilia Ardon Lymphocytes/100 WBC (Bld) 23.8 % Normal 20.5-60.0 [facility] Comment on above: Performed By: #### C BC ####[facility] [address] [place], [place] [address]DrOtilia Ardon MANUAL DIFF REQ NO Normal [facility] Comment on above: Performed By: #### C BC ####[facility] [address] [address]DrOtilia Ardon MCH (RBC) [Entitic mass] 30.6 pg Normal 26.7-34.0 [facility] Comment on above: Performed By: #### C BC ####[facility] [address] [address]DrOtilia Ardon MCHC (RBC) [Mass/Vol] 32.9 g/dL Normal 29.9-35.2 [facility] Comment on above: Performed By: #### C BC ####[facility] [address] [address]DrOtilia Ardon MCV (RBC) [Entitic vol] 93.0 fL Normal 81.0-99.0 [facility] Comment on above: Performed By: #### C BC ####[facility] [address] [place], [place] [address]DrOtilia Ardon MONO # 0.7 103/ul Normal 0.3-0.8 [facility] Comment on above: Performed By: #### C BC ####[facility] [address] [address]Dr. Win Ardon Monocytes/100 WBC (Bld) 7.3 % Normal 1.7-12.0 [facility] Comment on above: Performed By: #### C BC ####[facility] [address] [address]Dr. Win Ardon NEUT # 5.8 103/ul Normal 1.4-6.5 [facility] Comment on above: Performed By: #### C BC ####[facility] [address] [address]Dr. Win Ardon Neutrophils/100 WBC (Bld) 64.2 % Normal 43.0-75.0 [facility] Comment on above: Performed By: #### C BC ####[facility] [address] [place], [place] [address]Dr. Win Ardon Platelet mean volume (Bld) [Entitic vol] 11.0 fL Normal 9.5-13.5 [facility] Comment on above: Performed By: #### C BC ####[facility] [address] [place], [place] [address]Dr. Win Ardon PLT 243 103/ul Normal 150-450 [facility] Comment on above: Performed By: #### C BC ####[facility] [address] [place], [place] [address]Dr. Win Ardon RBC 4.44 106/ul Normal 4.20-5.40 [facility] Comment on above: Performed By: #### C BC ####[facility] [address] [address]Dr. Win Ardon WBC 9.1 103/ul Normal 4.0-11.0 [facility] Comment on above: Performed By: #### C BC ####[facility] [address] [place], [place] [address]DrOtilia Win Ardon LIPID PROFILEon 05-08-2023 CHOL-HDL RATIO NORM SEE BELOW Normal [facility] Comment on above: Result Comment: 3.3 - 4.4 LOW RISK 4.4 - 7.1 AVERAGE RISK 7.1 - 11.0 MODERATE RISK >11.0 HIGH RISK Performed By: #### C MP, LIPID #### [facility] [address] [address] [address] Win Ardon Cholesterol [Mass/Vol] 99 mg/dL Normal <=200 [facility] Comment on above: Performed By: #### C MP, LIPID #### [facility] [address] [address] [address] Win Ardon Cholesterol in HDL [Mass/Vol] 34 mg/dL Critically low 40-60 [facility] Comment on above: Performed By: #### C MP, LIPID #### [facility] [address] [address] [address] Win Ardon Cholesterol in LDL [Mass/Vol] 35.8 mg/dL Normal [facility] Comment on above: Performed By: #### C MP, LIPID #### [facility] [address] [address] [address] Win Ardon Cholesterol.total/Chol esterol in HDL [Mass ratio] 2.9 {ratio} Normal [facility] Comment on above: Performed By: #### C MP, LIPID #### [facility] [address] [address] [address] Win Ardon HDL NORMAL > or = 60 mg/dl - LOW CARDIOVASCULAR RISK <40 mg/dl - HIGH CARDIOVASCULAR RISK Normal [facility] Comment on above: Performed By: #### C MP, LIPID #### [facility] [address] [address] [address] Win Ardon LDL CALC NORMAL SEE BELOW Normal [facility] Comment on above: Result Comment: <100 mg/dl OPTIMAL 100 - 129 mg/dl NEAR OR ABOVE OPTIMAL 130 - 159 mg/dl BORDERLINE HIGH 160 - 189 mg/dl HIGH >190 mg/dl VERY HIGH Performed By: #### C MP, LIPID #### [facility] [address] [address] [address] Win Ardon Triglyceride [Mass/Vol] 146 mg/dL Normal <=150 [facility] Comment on above: Performed By: #### C MP, LIPID #### [facility] [address] [place] [address] Dr. Win Ardon VLDL CALC 29.2 mg/dL Normal [facility] Comment on above: Performed By: #### C MP, LIPID #### [facility] [address] [place] [address] Dr. Win Ardon PROF 14(COMP METB)on 023 Albumin [Mass/Vol] 3.9 g/dL Normal 3.4-5.[address] [facility] Comment on above: Performed By: #### C MP, LIPID #### [facility] [address] [place] [address] Dr. Win Ardon Albumin/Globulin [Mass ratio] 1.1 {ratio} Normal [facility] Comment on above: Performed By: #### C MP, LIPID #### [facility] [address] [place] [address] Dr. Win Ardon ALP [Catalytic activity/Vol] 96 U/L Normal 46-116 [facility] Comment on above: Performed By: #### C MP, LIPID #### [facility] [address] [place] [address] Dr. Win Ardon ALT [Catalytic activity/Vol] 15 U/L Normal 14-59 [facility] Comment on above: Performed By: #### C MP, LIPID #### [facility] [address] [place] [address] Dr. Win Ardon Anion gap [Moles/Vol] 12.1 mmol/L Normal [facility] Comment on above: Performed By: #### C MP, LIPID #### [facility] [address] [place] [address] Dr. Win Ardon AST [Catalytic activity/Vol] 10 U/L Critically low 15-37 [facility] Comment on above: Performed By: #### C MP, LIPID #### [facility] [address] [place] [address] Dr. Win Ardon Bilirubin [Mass/Vol] 0.8 mg/dL Normal 0.2-1.0 [facility] Comment on above: Performed By: #### C MP, LIPID #### [facility] [address] [place] [address] Dr. Win Ardon Calcium [Mass/Vol] 9.1 mg/dL Normal 8.5-10.[address] [facility] Comment on above: Performed By: #### C MP, LIPID #### [facility] [address] [place] [address] Dr. Win Ardon Chloride [Moles/Vol] 102 mmol/L Normal 98-107 [facility] Comment on above: Performed By: #### C MP, LIPID #### [facility] [address] [place] [address] Dr. Win Ardon CO2 [Moles/Vol] 26.0 mmol/L Normal 21.0-32.0 [facility] Comment on above: Performed By: #### C MP, LIPID #### [facility] [address] [place] [address] Dr. Win Ardon Creatinine [Mass/Vol] 0.95 mg/dL Normal 0.55-1.02 [facility] Comment on above: Performed By: #### C MP, LIPID #### [facility] [address] [place] [address] Dr. Win Ardon EGFR-AF [facility] >60 Normal >=60 [facility] Comment on above: Performed By: #### C MP, LIPID #### [facility] [address] [place] [address] Dr. Win Ardon EGFR-NON AF [facility] 59 mL/min/1.73m2 Critically low >=60 [facility] Comment on above: Performed By: #### C MP, LIPID #### [facility] [address] [place] [address] Dr. Win Ardon Globulin (S) [Mass/Vol] 3.7 g/dL Normal [facility] Comment on above: Performed By: #### C MP, LIPID #### [facility] [address] [place] [address] Dr. Win Ardon Glucose [Mass/Vol] 336 mg/dL Critically high 74-106 T [facility] Comment on above: Performed By: #### C MP, LIPID #### [facility] [address] [address] [address] Win Ardon Potassium [Moles/Vol] 4.1 mmol/L Normal 3.5-5.1 [facility] Comment on above: Performed By: #### C MP, LIPID #### [facility] [address] [address] [address] Win Ardon Protein [Mass/Vol] 7.6 g/dL Normal 6.4-8.[address] [facility] Comment on above: Performed By: #### C MP, LIPID #### [facility] [address] [address] [address] Win Ardon Sodium [Moles/Vol] 136 mmol/L Normal 136-[address] [facility] Comment on above: Performed By: #### C MP, LIPID #### [facility] [address] [address] [address] Win Ardon Urea nitrogen [Mass/Vol] 10.0 mg/dL Normal 7.0-18.0 [facility] Comment on above: Performed By: #### C MP, LIPID #### [facility] [address] [place] [address] Dr. Win Ardon Urea nitrogen/Creatinine [Mass ratio] 10.5 mg/mg Normal [facility] Comment on above: Performed By: #### C MP, LIPID #### [facility] [address] [place] [address] Dr. Win Ardon EMS Documentationon 03-18-20 23 EMS Documentation Normal [facility] Office Visiton 03-10-2023 Follow-up visit [id number] Yeyo Avila 1955 F Date Provider Department Center 03/10/2023 [id number] LOPEZ [facility] No family history on file Level of Service:52337 DC OFFICE/OUTPATIENT ESTABLISHED MOD MDM 30-39 MIN Reason for Visit and Comments: Coronary Artery Disease [187] Hypertension [401847] aneurysm of thoracic aorta [Other] Normal [facility] Coding Summary.on 02-27-2023 Coding Summary. Normal [facility] EMS Documentationon 02-28-20 EMS Documentation Normal [facility] EMS Documentation Normal [facility] Auto Diffon 02-24-2023 Basophils/100 WBC (Bld) 0.3 % Normal 0.0-2.0 [facility] Comment on above: Order Comment: Order Added by Discern Expert. Performed By: #### 2 [id number], [id number], [id number], [id number], [id number], [id number], [id number] ####[facility] [address] [place] [address] Basophils/Leukocytes Auto (Bld) [Pure # fraction] 0.1 E9/L Normal 0.0-0.2 [facility] Comment on above: Order Comment: Order Added by Discern Expert. Performed By: #### 2 [id number], [id number], [id number], [id number], 9810014, [id number], [id number] ####[facility] [address] [place] [address] Eosinophils/100 WBC (Bld) 1.4 % Normal 0.0-8.0 [facility] Comment on above: Order Comment: Order Added by Discern Expert. Performed By: #### 2 [id number], [id number], 3899106, 08815395, 6850397, [id number], 4109583 ####[facility] [address] [place] [address] Eosinophils/Leukocytes Auto (Bld) [Pure # fraction] 0.2 E9/L Normal 0.0-0.5 [facility] Comment on above: Order Comment: Order Added by Discern Expert. Performed By: #### 2 [id number], [id number], 0907062, [id number], 3774170, [id number], [id number] ####[facility] [address] [place] [address] Lymphocytes/100 WBC (Bld) 30.2 % Normal 14.0-50.0 [facility] Comment on above: Order Comment: Order Added by Discern Expert. Performed By: #### 2 [id number], [id number], 5442351, [id number], 7514757, 12089970, 2585590 ####[address] [place] [address] Lymphocytes/Leukocytes Auto (Bld) [Pure # fraction] 5.1 E9/L High 1.0-4.0 [facility] Comment on above: Order Comment: Order Added by Discern Expert. Performed By: #### 2 129756, [id number], 4396830, 55118073, 7208490, 96649322, 9621532 ####[address] [place] [address] Monocytes/100 WBC (Bld) 8.3 % Normal 4.0-14.0 [facility] Comment on above: Order Comment: Order Added by Dereje Expert. Performed By: #### 2 291670, [id number], 4770657, 96085035, 7396485, [id number], 9692987 ####[address] [place] [address] Monocytes/Leukocytes Auto (Bld) [Pure # fraction] 1.4 E9/L High 0.2-1.0 [facility] Comment on above: Order Comment: Order Added by Dereje Expert. Performed By: #### 2 883298, 64310250, 5551169, 24780219, 6275709, 09696821, 0181901 ####[address] [place] [address] Neutrophils/100 WBC (Bld) 59.8 % Normal 36.0-75.0 [facility] Comment on above: Order Comment: Order Added by Dereje Expert. Performed By: #### 2 750908, 99442395, 6739965, 66073091, 5630289, 31042742, 9538656 ####[facility] [address] [place] [address] Neutrophils/Leukocytes Auto (Bld) [Pure # fraction] 10.0 E9/L High 2.0-7.5 [facility] Comment on above: Order Comment: Order Added by Discern Expert. Performed By: #### 2 717015, 99452756, 5117441, 28460349, 5941500, 23995850, 7481227 ####[facility] [address] [place] [address] BMPon 02-24-2023 Anion gap [Moles/Vol] 8 mmol/L Normal 6-16 [facility] Comment on above: Performed By: #### 1 4214367, 13997297, 8004241, 8102460, 6620503 ####[facility] [address], [place] [address] Calcium [Mass/Vol] 8.4 mg/dL Low 8.9-11.1 [facility] Comment on above: Performed By: #### 1 3543467, 27466791, 2606881, 6870697, 6096758 ####[facility] [address] [place] [address] Chloride [Moles/Vol] 108 mmol/L Normal 101-111 [facility] Comment on above: Performed By: #### 1 3936749, 69184258, 4802466, 1765703, 5553816 ####[facility] [address] [place] [address] CO2 [Moles/Vol] 25 mmol/L Normal 21-31 [facility] Comment on above: Performed By: #### 1 1991164, 95151223, 6444409, 2382899, 7187387 ####[facility] [address] [place] [address] Creatinine [Mass/Vol] 1.2 mg/dL Normal 0.5-1.3 [facility] Comment on above: Performed By: #### 1 9216595, 13005598, 4562971, 0112252, 4624235 ####[facility] [address] [facility], [place] [address] Glucose [Mass/Vol] 102 mg/dL Normal 55-199 [facility] Comment on above: Result Comment: If t his glucose result represents a fasting glucose, interpretation should refer to the following reference range: 55-99 mg/dL Performed By: #### 1 9779536, 71824875, 0088293, 2888615, 5787619 ####[facility] [address] [place] [address] Potassium [Moles/Vol] 3.4 mmol/L Low 3.5-5.3 [facility] Comment on above: Performed By: #### 1 0445777, 70752362, 9289511, 6344770, 6907440 ####[facility] [address] [place] [address] Sodium [Moles/Vol] 138 mmol/L Normal 135-145 [facility] Comment on above: Performed By: #### 1 0177979, 72511330, 1334996, 8961349, 1391146 ####[facility] [address] [place] [address] Urea nitrogen [Mass/Vol] 30 mg/dL High 5-21 [facility] Comment on above: Performed By: #### 1 5902376, 14802258, 1990559, 4331510, 6265811 ####[facility] [address] [place] [address] Urea nitrogen/Creatinine [Mass ratio] 25 No Units High 10-20 [facility] Comment on above: Performed By: #### 1 4287879, 54280956, 3812155, 6969368, 9580033 ####[facility] [address] [place] [address] Creatinine [Mass/Vol] 1.4 mg/dL High 0.5-1.3 [facility] Comment on above: Performed By: #### 2 774799, 63679121, 2337141, 51337229, 6275592, 72694233, 8885606 ####[facility] [address] [place] [address] Urea nitrogen [Mass/Vol] 30 mg/dL High 5-21 [facility] Comment on above: Performed By: #### 2 695830, 12616285, 7720150, 93261533, 7718163, 16608625, 0409990 ####[facility] [address] [place] [address] Urea nitrogen/Creatinine [Mass ratio] 21 No Units High 10-20 [facility] Comment on above: Performed By: #### 2 612673, 69876619, 9299307, 90629421, 7838877, 74347565, 7475691 ####[facility] [address] [place] [address] Anion gap [Moles/Vol] 11 mmol/L Normal 6-16 [facility] Comment on above: Performed By: #### 2 522318, 81139676, 9496951, 19775938, 4699351, 60797748, 3019828 ####[facility] [address] [place] [address] Calcium [Mass/Vol] 8.9 mg/dL Normal 8.9-11.1 [facility] Comment on above: Performed By: #### 2 529841, 37505243, 6560396, 87337060, 9575700, 29076323, 4354949 ####[facility] [address] [place] [address] Chloride [Moles/Vol] 103 mmol/L Normal 101-111 [facility] Comment on above: Performed By: #### 2 394470, 56845717, 8659578, 46358164, 3608181, 99603928, 8101748 ####[facility] [address] [place] [address] CO2 [Moles/Vol] 26 mmol/L Normal 21-31 [facility] Comment on above: Performed By: #### 2 783326, 58104619, 1460803, 96948228, 6349915, 21922434, 2358927 ####[facility] [address] [place] [address] Glucose [Mass/Vol] 118 mg/dL Normal 55-199 [facility] Comment on above: Result Comment: If t his glucose result represents a fasting glucose, interpretation should refer to the following reference range: 55-99 mg/dL Performed By: #### 2 323486, 35642797, 2805341, 23719108, 0304514, 67236657, 7756333 ####[facility] [address] [place] [address] Potassium [Moles/Vol] 3.0 mmol/L Low 3.5-5.3 [facility] Comment on above: Performed By: #### 2 444276, 90248193, 6702814, 63141631, 9372999, 33146666, 5820819 ####[facility] [address] [place] [address] Sodium [Moles/Vol] 137 mmol/L Normal 135-145 [facility] Comment on above: Performed By: #### 2 546692, 67556586, 5057814, 25850216, 2690515, 47308762, 6176295 ####[facility] [address] [place] [address] CBC w/ Auto Diffon 3 Erythrocyte distribution width (RBC) [Ratio] 13.5 % Normal 10.9-14.2 [facility] Comment on above: Performed By: #### 2 464657, 47137578, 9316543, 41059957, 5768617, 74156631, 8783838 ####[facility] [address] [place] [address] Hematocrit (Bld) [Volume fraction] 40.8 % Normal 34.0-46.0 [facility] Comment on above: Performed By: #### 2 305976, 79016397, 7907333, 22760326, 4201786, 97806524, 3536269 ####[facility] [address] [place] [address] Hemoglobin (Bld) [Mass/Vol] 13.8 g/dL Normal 12.0-16.0 [facility] Comment on above: Performed By: #### 2 539607, 59562003, 8179694, 43754454, 4238855, 23528933, 7040269 ####[facility] [address] [place] [address] MCH (RBC) [Entitic mass] 29.6 pg Normal 27.0-34.0 [facility] Comment on above: Performed By: #### 2 634846, 21416420, 9048565, 54494926, 0821946, 00608449, 3348266 ####[facility] [address]ns[address] [place] [address] MCHC (RBC) [Mass/Vol] 33.9 g/dL Normal 31.4-36.0 [facility] Comment on above: Performed By: #### 2 971903, 87564517, 0578247, 87560729, 3691632, 43690336, 0009485 ####[address] [address] MCV (RBC) [Entitic vol] 87.3 fL Normal 80.0-100.0 [facility] Comment on above: Performed By: #### 2 127242, 66791881, 1386096, 57774877, 2048553, 65461025, 4295904 ####[address] [address] Platelet mean volume (Bld) [Entitic vol] 9.3 fL Normal 6.4-10.8 [facility] Comment on above: Performed By: #### 2 242476, 98030273, 8605126, 20271706, 7277480, 66127115, 9082250 ####[address] [address] Platelets (Bld) [#/Vol] 234.0 E9/L Normal 150.0-500.0 [facility] Comment on above: Performed By: #### 2 986712, 21392897, 9921382, 65291155, 2228682, 87316899, 1998645 ####[facility] [address] [place] [address] RBC (Bld) [#/Vol] 4.7 E12/L Normal 4.3-5.9 [facility] Comment on above: Performed By: #### 2 690729, 20419671, 5594802, 29260116, 1447874, 23930501, 3177098 ####[facility] [address] [place] [address] WBC corrected for nucl RBC Auto (Bld) [#/Vol] 16.7 E9/L High 4.0-11.0 [facility] Comment on above: Result Comment: Slid e reviewed by AD. Performed By: #### 2 136394, 84141236, 8683469, 20521149, 4821737, 19675305, 7228649 ####[facility] [address] [place] [address] CHEMISTRYOrdered By: Lab ROP User on 02-24-2023 Glucose [Mass/Vol] 144 mg/dL High 55 - 99 mg/dL [facility] POC Subsection Comment on above: Result Comment: Edilia arleth Meter POC Device SN [id number] Invalid Interpretation Code [facility] POC Subsection POC User ID [id number] Invalid Interpretation Code [facility] POC Subsection POC Username KRISTI MADDEN Invalid Interpretation Code [facility] POC Subsection Glucose [Mass/Vol] 76 mg/dL Normal 55 - 99 mg/dL [facility] POC Subsection Comment on above: Result Comment: Edilia arleth Meter POC Device SN [id number] Invalid Interpretation Code [facility] POC Subsection POC User ID [id number] Invalid Interpretation Code [facility] POC Subsection POC Username KRISTI MADDEN Invalid Interpretation Code [facility] POC Subsection CHEMISTRYOrdered By: SYSTEM SYSTEM on 02-24-2023 Potassium [Moles/Vol] 3.7 mmol/L Normal 3.5 - 5.3 mmol/L [facility] Anion gap [Moles/Vol] 8 mmol/L Normal 6 - 16 mEq/L [facility] Calcium [Mass/Vol] 8.4 mg/dL Low 8.9 - 11. 1 mg/dL [facility] Chloride [Moles/Vol] 108 mmol/L Normal 101 - 1 11 mmol/L [facility] CO2 [Moles/Vol] 25 mmol/L Normal 21 - 31 mmol/L [facility] Creatinine [Mass/Vol] 1.2 mg/dL Normal 0.5 - 1.3 mg/dL [facility] GFR/1.73 sq M.predicted among blacks MDRD (S/P/Bld) [Vol rate/Area] 55 mL/min/1.73 m2 Low >=59mL/min/1 .73 m2 [facility] Chem S GFR/1.73 sq M.predicted among non-blacks MDRD (S/P/Bld) [Vol rate/Area] 45 mL/min/1.73 m2 Low >=59mL/min/1 .73 m2 [facility] Chem S Glucose [Mass/Vol] 102 mg/dL Normal [...] 38 mL/min/1.73 m2 Low >=59mL/min/1 .73 m2 [facility] Chem S Globulin (S) [Mass/Vol] 2.8 g/dL Normal 1.4 - 4.0 gm/dL [facility] Glucose [Mass/Vol] 118 mg/dL Normal 55 - 199 mg/dL [facility] Potassium [Moles/Vol] 3.0 mmol/L Low 3.5 - 5.3 mmol/L [facility] Protein [Mass/Vol] 6.5 g/dL Normal 6.0 - 7.8 gm/dL [facility] Sodium [Moles/Vol] 137 mmol/L Normal 135 - 145 mmol/L [facility] Remisol Troponin I.cardiac [Mass/Vol] 8.00 pg/mL Low 10.10 - 27.10 pg/mL [facility] Remisol Urea nitrogen [Mass/Vol] 30 mg/dL High 5 - 21 mg/dL [facility] Remisol Urea nitrogen/Creatinine [Mass ratio] 21 mg/mg High 10 - 20 [facility] Remisol COAGULATIONOrdered By: Soheila Jenkins on 02-24-2023 aPTT Coag (PPP) [Time] 23.9 s Low 25.1 - 36.5 second(s) [facility] Auto Coag INR Coag (PPP) [Relative time] 1.2 {INR} Invalid Interpretation Code [facility] Auto Coag PT Coag (PPP) [Time] 13.7 s High 9.4 - 1 2.5 second(s) [facility] Auto Coag CT Head or Brain w/o Contras ton 02-24-2023 CT Head or Brain w/o Contrast Normal [facility] CT Spine Cervical w/o Contra ston 02-24-2023 CT Spine Cervical w/o Contrast Normal [facility] Capillary Glucose POCon 02-15 Glucose [Mass/Vol] 144 mg/dL High 55-99 [facility] Comment on above: Result Comment: Edilia arleth Meter Performed By: #### 2 69945633 ####[facility] [address] [place] [address] Glucose [Mass/Vol] 76 mg/dL Normal 55-99 [facility] Comment on above: Result Comment: Edilia arleth Meter Performed By: #### 2 02506586 ####[facility] [address] [place] [address] Consent for Treatmenton 02-15 Consent for Treatment [id number] 5#1.00CD:127 Normal [facility] Discharge Instructionson Discharge Instructions [id number] 8#1.00CD:127 Normal [facility] ED Clinical Summaryon 2022 ED Clinical Summary Normal [facility]on [facility] ED Note-Physicianon 02-25-20 ED Note-Physician Normal [facility] Comment on above: Result Comment: Elec tronically Signed By: Timoteo PRADO, Jordy\.br\Date and Time Signed: 02/24/23 02:05 EDT ED Patient Education Noteon 02-24-2023 ED Patient Education Note Normal [facility] ED Patient Summaryon 023 ED Patient Summary Normal [facility] ED Traumaon 02-24-2023 ED Trauma [id number] 1#1.00CD:127 Normal [facility] HEMATOLOGYOrdered By: SYSTEM SYSTEM on 02-24-2023 Basophils/100 [...] Result Comment: Slid e reviewed by AD. Day Fun Panelon 02-24-2023 Albumin [Mass/Vol] 3.7 g/dL Normal 3.3-5.0 [facility] Comment on above: Performed By: #### 2 296972, 52942599, 8298216, 27952606, 3769464, 86104546, 2142999 ####[facility] [address] [place] [address] Albumin/Globulin (S) [Mass conc ratio] 1.3 Normal 1.1-2.2 [facility] Comment on above: Performed By: #### 2 623416, 07549492, 0539073, 48458932, 3401791, 09706154, 3545631 ####[facility] [address] [place] [address] ALP [Catalytic activity/Vol] 84 Int._Unit/L Normal 21-98 [facility] Comment on above: Performed By: #### 2 916308, 53595316, 3330077, 81352703, 2866375, 57816645, 9789423 ####[facility] [address] [place] [address] ALT No additional P-5'-P [Catalytic activity/Vol] 13 Int._Unit/L Normal 6-46 [facility] Comment on above: Performed By: #### 2 559852, 18627898, 3175321, 39623204, 7678317, 10729819, 4402364 ####[address] [place] [address] AST [Catalytic activity/Vol] 14 Int._Unit/L Normal 5-43 [facility] Comment on above: Performed By: #### 2 962859, 62742031, 5187774, 30716182, 1671666, 91325903, 7183105 ####[facility] [address] [place] [address] Bilirubin [Mass/Vol] 1.1 mg/dL Normal 0.0-1.1 [facility] Comment on above: Performed By: #### 2 619359, 77156928, 5960760, 86941564, 6093191, 63772904, 9155948 ####[address] [place] [address] Bilirubin.direct [Mass/Vol] 0.3 mg/dL Normal 0.1-0.4 [facility] Comment on above: Performed By: #### 2 526350, 76159282, 1347679, 68322970, 4512086, 88950010, 3628979 ####[facility] [address] [place] [address] Bilirubin.indirect [Mass or moles/Vol] 0.8 mg/dL Normal 0.1-0.9 [facility] Comment on above: Performed By: #### 2 077842, 25987318, 7988720, 65506128, 5323763, 83363196, 6658777 ####[facility] [address] [place] [address] Globulin (S) [Mass/Vol] 2.8 g/dL Normal 1.4-4.0 [facility] Comment on above: Performed By: #### 2 556726, 99424195, 8092000, 89400699, 8010109, 08000778, 3004614 ####[facility] [address] [place] [address] Protein [Mass/Vol] 6.5 g/dL Normal 6.0-7.8 [facility] Comment on above: Performed By: #### 2 427389, 59875279, 2566182, 67949358, 9752131, 41890264, 7268038 ####[facility] [address] [place] [address] Inpatient Clinical Summaryon 02-24-2023 Inpatient Clinical Summary Normal [facility] Inpatient Patient Summaryon 02-24-2023 Inpatient Patient Summary Normal [facility] Inpatient Patient Summary Normal [facility] Interdisciplinary Note - Aaron e Manageron 02-24-2023 Interdisciplinary Note - Sorting Cows Worker Normal [facility] Comment on above: Result Comment: Elec tronically Signed By: Freda Dodson\.br\Date and Time Signed: 02/24/23 11:14 EDT Interdisciplinary Note - PTo n 02-24-2023 Interdisciplinary Note - PT Normal [facility] Magnesiumon 02-24-2023 Magnesium [Mass/Vol] 2.1 mg/dL Normal 1.3-2.4 [facility] Comment on above: Performed By: #### 1 6155269, 58214095, 7192829, 4575485, 9158681 ####[facility] [address] [place] [address] Monitor Recordon 02-24-2023 Monitor Record [id number] 4#1.00CD:127 Normal [facility] Monitor Record [id number] 0#1.00CD:127 Normal [facility] Monitor Record [id number] 6#1.00CD:127 Normal [facility] PT & PTTon 02-24-2023 aPTT Coag (PPP) [Time] 23.9 second(s) Low 25.1-36.5 [facility] Comment on above: Result Comment: Para meter [...] the same coagulation reagent and instrumentation as [facility]. Currently there are no coagulation studies available worldwide for children to 14 days, and no normal ranges. Heparin therapeutic range (represented by Anti-Factor Xa activity of 0.2 - 0.4 U/mL) corresponds to PTT of 56.6 - 109.0 sec. Performed By: #### 2 123963, 39311981, 7584102, 51804497, 7455434, 73064983, 9615711 ####[facility] [address] [place] [address] INR Coag (PPP) [Relative time] 1.2 {INR} Invalid Interpretation Code [facility] Comment on above: Result Comment: INR results are specifically intended to assess patients stabilized on long-term Anticoagulation therapy suggested INR?s ?Less Intensive Anticoagulation? 2.0 ? 3.0Conventional Range 3.0 ? 4.5 Performed By: #### 2 917750, 49781015, 3797755, 27631253, 3552345, 23423411, 4561978 ####[facility] [address] [place] [address] PT Coag (PPP) [Time] 13.7 second(s) High 9.4-12.5 [facility] Comment on above: Result Comment: 15 d [...] the same coagulation reagent and instrumentation as [facility]. Currently there are no coagulation studies available worldwide for children to 14 days, and no normal ranges. Performed By: #### 2 169724, 03019421, 2989133, 02977974, 6843739, 28122362, 3046267 ####[facility] [address] [place] [address] Patient Education - Texton 0 02-24-2023 Patient Education - Text Normal [facility] Potassiumon 02-24-2023 Potassium [Moles/Vol] 3.7 mmol/L Normal 3.5-5.3 [facility] Comment on above: Order Comment: Pleas e call me with result. Thanks Performed By: #### 2 789880 ####[facility] [address] [place] [address] Pre-Arrival Noteon Pre-Arrival Note Normal [facility] Progress Note-Physicianon Progress Note-Physician Normal [facility] Comment on above: Result Comment: Elec tronically Signed By: PERLA PRADO, Cuauhtemocfo\.br\Date and Time Signed: 02/24/23 09:47 EDT RAD - Preliminary Cat Scan R eporton 02-24-2023 RAD - Preliminary Cat Scan Report [id number] 6#1.00CD:127 Normal [facility] RAD - Preliminary Cat Scan Report [id number] 5#1.00CD:127 Normal [facility] TSH With T4fr Reflexon 02-24 TSH Qn 0.97 m[IU]/L Normal 0.34-5.60 [facility] Comment on above: Performed By: #### 1 2863282, 16269142, 8611874, 1456055, 7235190 ####[facility] [address] [place] [address] Troponinon 02-24-2023 Troponin I.cardiac [Mass/Vol] 7.40 pg/mL Low 10.10-27.10 [facility] Comment on above: Result Comment: The 95% CI (Confidence Interval) PPV (Positive Predictive Value) for myocardial infarction in females is 38 pg/mL, in males 51 pg/mL. The results should be used in conjunction with clinical conditions of myocardial infarction.(Access High Sensitivity Troponin I Instructions For Use, [employer], June 2018) Performed By: #### 1 1055767, 61942539, 9440471, 4203044, 0131622 ####[facility] [address] [place] [address] Troponin 0 Hr.on 02-24-2023 Troponin I.cardiac [Mass/Vol] 8.00 pg/mL Low 10.10-27.10 [facility] Comment on above: Result Comment: The 95% CI (Confidence Interval) PPV (Positive Predictive Value) for myocardial infarction in females is 38 pg/mL, in males 51 pg/mL. The results should be used in conjunction with clinical conditions of myocardial infarction.(Access High Sensitivity Troponin I Instructions For Use, [employer], June 2018) Performed By: #### 2 895471, 56900849, 7980190, 38740161, 6979658, 82346578, 1904481 ####[facility] [address] [place] [address] Troponin 3 Hr.on 02-24-2023 Troponin I.cardiac [Mass/Vol] 6.70 pg/mL Low 10.10-27.10 [facility] Comment on above: Result Comment: The 95% CI (Confidence Interval) PPV (Positive Predictive Value) for myocardial infarction in females is 38 pg/mL, in males 51 pg/mL. The results should be used in conjunction with clinical conditions of myocardial infarction.(Access High Sensitivity Troponin I Instructions For Use, Mary Cherry, June 2018) Performed By: #### 1 0093440 ####[facility] [address] [place] [address] UA With Cult Reflexon 2022 Bacteria LM Ql (Urine sed) TRACE Normal Trace [facility] Comment on above: Performed By: #### 1 8404382 ####[facility] [address] [place] [address] Bilirubin Ql (U) Negative Normal Negative [facility] Comment on above: Performed By: #### 1 6301043 ####[facility] [address] [place] [address] Clarity (U) SL CLOUDY Abnormal Clear [facility] Comment on above: Performed By: #### 1 8495875 ####[facility] [address] [place] [address] Color (U) YELLOW Normal Yellow [facility] Comment on above: Performed By: #### 1 9646626 ####[facility] [address] [place] [address] Crystals LM Ql (Urine sed) Present Normal [facility] Comment on above: Performed By: #### 1 4130383 ####[facility] [address] [place] [address] Epithelial cells.squamous LM.HPF (Urine sed) [#/Area] /[HPF] Normal 0-2 [facility] Comment on above: Performed By: #### 1 8634152 ####[facility] [address] [place] [address] Glucose Test strip (U) [Mass/Vol] Negative Normal Negative [facility] Comment on above: Performed By: #### 1 5799033 ####[facility] [address] [place] [address] Hemoglobin Ql (U) 3+ Abnormal Negative [facility] Comment on above: Performed By: #### 1 1925133 ####[address] [address] Ketones (U) [Mass/Vol] TRACE Abnormal Negative [facility] Comment on above: Performed By: #### 1 0245965 ####[address] [address] [place].plasma/[place] .RBC (Bld) [Mass ratio] 21-30 Abnormal 0-3 [facility] Comment on above: Performed By: #### 1 4634170 ####[address] [address] Mucus Ql (Urine sed) TRACE Normal [facility] Comment on above: Performed By: #### 1 3747400 ####[address] [address] Nitrite Ql (U) Negative Normal Negative [facility] Comment on above: Performed By: #### 1 1436957 ####[address] [address] pH (U) 6.0 [pH] Invalid Interpretation Code 5.0-9.0 [facility] Comment on above: Performed By: #### 1 6453646 ####[facility] [address] [place] [address] Protein (U) [Mass/Vol] 1+ Abnormal Negative [facility] Comment on above: Performed By: #### 1 3245102 ####[address] [address] Specific gravity (U) [Rel density] 1.020 Invalid Interpretation Code 1.005-1.030 [facility] Comment on above: Performed By: #### 1 6559259 ####[address] [address] Type of Urine collection method Clean Catch Normal [facility] Comment on above: Performed By: #### 1 5415510 ####[facility] [address] [place] [address] Urobilinogen Qn (U) 0.2 {John'U}/dL Normal 0.0-1.0 [facility] Comment on above: Performed By: #### 1 7546976 ####[facility] [address] [place] [address] WBC Auto Ql (U) TRACE Abnormal Negative [facility] Comment on above: Performed By: #### 1 5220128 ####[facility] [address] [place] [address] WBC casts LM.LPF (Urine sed) [#/Area] 4-10 Normal [facility] Comment on above: Performed By: #### 1 7021087 ####[facility] [address] [place] [address] WBC LM.HPF (Urine sed) [#/Area] 0-5 Normal 0-5 [facility] Comment on above: Performed By: #### 1 1457213 ####[facility] [address] [place] [address] URINALYSISOrdered By: Dave Jenkins on 02-24-2023 Bacteria LM Ql (Urine sed) Trace /HPF Normal Trace/HPF [facility] UA Auto SS Bilirubin Ql (U) Negative (02/24/23 2:06 AM) Normal Negative FT UA Auto SS Clarity (U) Slightly Cloudy *ABN* (02/24/23 2:06 AM) Invalid Interpretation Code Clear FT UA Auto SS Color (U) Yellow (02/24/23 2:06 AM) Normal Yellow FT UA Auto SS Crystals LM Ql (Urine [...] Interpretation Code Negative [facility] UA Auto SS [place].plasma/[place] .RBC (Bld) [Mass ratio] 21-30 /HPF Invalid [...] [facility] UA Auto SS Urobilinogen Qn (U) [id number] {John'U}/dL Normal 0.0 - 1.0 EU/dL [facility] [...] XR Chest Single View Normal [facility] XR Spine Lumbosacral 2 or 3 Viewson 02-24-2023 XR Spine Lumbosacral 2 or 3 Views Normal [facility] eGFRon 02-24-2023 GFR/1.73 sq M.predicted among blacks MDRD (S/P/Bld) [Vol rate/Area] 55 mL/min/1.73 m2 Low >=59 [facility] Comment on above: Order Comment: Order added by Discern Expert. Result Comment: eGFR is race adjusted. AA=. Performed By: #### 1 [id number], [id number], [id number], [id number], [id number] ####[facility] [address] [place] [address] GFR/1.73 sq M.predicted among non-blacks MDRD (S/P/Bld) [Vol rate/Area] 45 mL/min/1.73 m2 Low >=59 [facility] Comment on above: Order Comment: Order added by Discern Expert. Result Comment: Inside Sales Manager kuldip kidney disease could be indicated at eGFR's of less than 60 mL/min/1.73m2. Kidney failure is indicated at less than 15 mL/min/1.73m2. Performed By: #### 1 [id number], [id number], [id number], [id number], [id number] ####[facility] [address] [place] [address] GFR/1.73 sq M.predicted among blacks MDRD (S/P/Bld) [Vol rate/Area] 46 mL/min/1.73 m2 Low >=59 [facility] Comment on above: Order Comment: Order added by Discern Expert. Result Comment: eGFR is race adjusted. AA=. Performed By: #### 2 [id number], [id number], [id number], [id number], [id number], [id number], [id number] ####[facility] [address] [place] [address] GFR/1.73 sq M.predicted among non-blacks MDRD (S/P/Bld) [Vol rate/Area] 38 mL/min/1.73 m2 Low >=59 [facility] Comment on above: Order Comment: Order added by Discern Expert. Result Comment: Inside Sales Manager kuldip kidney disease could be indicated at eGFR's of less than 60 mL/min/1.73m2. Kidney failure is indicated at less than 15 mL/min/1.73m2. Performed By: #### 2 [id number], [id number], [id number], [id number], [id number], [id number], [id number] ####[facility] [address] [place] [address] Covid-19 PCR ([facility])on 01-17 SARS-CoV-2 (COVID-19) RNA OSVALDO+probe Ql (Unsp spec) Not detected Normal NOT DETECTED [facility] Comment on above: Result Comment: This test is not yet approved or cleared by the [place] FDA. When there are no FDA-approved or cleared tests available, and other criteria are met, FDA can make tests available under an emergency access mechanism called an Emergency Use Authorization (EUA). The EUA for this test is supported by the [place] of Health and Human Service's (HHS's) declaration [...] consistent with SARS-CoV-2. Performed By: #### [facility] #### [facility] [address] [address] [address] Win Ardon SYMPTOMATIC COVID-19 ANTIGEN on 02-14-2023 EUA Statement SEE BELOW Normal [facility] Comment on above: Result Comment: This [...] sooner. Performed By: #### C VDAGS #### [facility] [address] [address] [address] Win Ardon SARS-CoV-2 (COVID-19) RNA OSVALDO+probe Ql (Unsp spec) Negative Normal NEGATIVE [facility] Comment on above: Performed By: #### C VDAGS #### [facility] [id number] Win Ardon XR KNEE RT 4V [...] MIKAEL GUZMAN Date: 2022-10-05 19:58 Normal [facility] Creatinine (Bld) [Mass/Vol]O rdered By: Ese Tan on 02-18-2022 Creatinine [Mass/Vol] 0.8 mg/dL 0.6-1.3 [facility] Comment on above: ER/ESD physician is notified/shown all ISTAT results.Critical values may be confirmed by laboratory testing ifdeemed necessary by ER attending doctor. ISTAT XRay CREon 02-18-2022 Creatinine [Mass/Vol] 0.8 mg/dL Normal 0.6-1.3 [facility] Comment on above: Result Comment: ER/E SD physician is notified/shown all ISTAT results. Critical values may be confirmed by laboratory testing if deemed necessary by ER attending doctor. Performed By: #### B ELEVATOR SUPERVISOR, PTT, CKMB, LIPASE, CK, TROP, CBC, PT, CMP #### [facility] [address] ISTAT GFR ( > 60 Normal [facility] Comment on above: Result Comment: GFR estimated reference range: According to KDOQI guidelines, <60 ml/min/1.73m2 is sufficient to diagnose a patient with chronic kidney disease. PERFORMED BY: [place] [address] PATHOLOGIST PROTOTYPER WALDO WANG M.D. Performed By: #### B ELEVATOR SUPERVISOR, PTT, CKMB, LIPASE, CK, TROP, CBC, PT, CMP #### [facility] [address] ISTAT GFR (Non- Am > 60 Normal [facility] Comment on above: Performed By: #### B ELEVATOR SUPERVISOR, PTT, CKMB, LIPASE, CK, TROP, CBC, PT, CMP #### [facility] [address] MR abdomen wo/w conon 2021 MR abdomen wo/w con [facility] Main [place] [address] [place] [address] MRI Report Signed Patient: Yeyo Avila MR#: [id number] : 1955 Acct:[id number] Age/Sex: 66 / F ADM Date: 02/18/22 Loc: MR Room: Type: [facility] Attending Dr: Ese Tan MD Ordering [...] Warren Jr., D.O.02/18/2022 4:02 PM Dictation Location: [facility]--11 Transcribed By: [facility] 02/18/22 1602 Dictated By: Javi Warren Jr, DO 02/18/22 1556 Signed By: 02/18/22 1602 Normal [facility] No Panel InformationOrdered By: Ese Tan on 02-18-2022 POC Estimated GFR > 60 [facility] Comment on above: GFR estimated refere nce range: According to KDOQI guidelines, <60 ml/min/1.73m2 is sufficient to diagnose a patient with chronic kidney disease. POC Estimated GFR Non- Amer > 60 [facility] Cardiovascular Lab Reporton 03-22-2021 Cardiovascular Lab Report [facility] Patient Name: [facility] Yeyo Cooper MR #: [id number] Department of Physician: Radha Carter M.D. Division of Service Date: 03/21/2021 Cardiology Birthdate: 1955 Adult Cardiovascular Room #: [place] [address] Cardiovascular Laboratory Report FINAL IMPRESSIONS: 1. 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 2. Patent stent in the second diagonal branch of the left anterior descending coronary artery with [id number] in-stent restenosis. 3. Otherwise, nonobstructive coronary arteries [...] bilateral selective coronary angiography, placement of a 6-Pakistani MynxGrip closure device. METHODS: After risks, benefits, and alternatives were explained, written informed consent was obtained. The patient was prepped and draped in the usual sterile fashion over the right groin. Using 1% lidocaine solution, local infiltration anesthesia was achieved. Using a modified Seldinger technique, a micropuncture kit, an ultrasound guidance access to the right common femoral vein and artery was obtained. A 6-Pakistani x 11 cm sheath were placed in each. Limited femoral angiography was performed via the micropuncture kit prior to upsizing through the 6-Pakistani sheath in the artery. A Cazares catheter [...] the procedure. All catheters were removed. A 6-Pakistani MynxGrip closure device was deployed per protocol [...] P Rebeka Pardo M.D. Date Dict: 03/21/2021/01:03 Mariano Pardo M.D. Date Trans: 03/22/2021 05:11 A/yoel [id number] cc: Alexia Cline, MSN, COMMUNITY MARKETING MANAGER-C Department Of Surgery [place] [address] [facility] [address] Robin Ponce M.D. [address] [id number] [place] [facility] CT angio abdomen pelvison CT angio abdomen pelvis [facility] [address] [place] [id number] CT Scan Report Signed Patient: Yeyo Avila MR#: [id number] : 1955 Acct:[id number] Age/Sex: 65 / F ADM Date: 03/19/21 Loc: ER Room: Type: [facility] ER Attending Dr: Ordering Provider: Ismael Santillan DO Date of Service: 03/19/21 CT/CT angio chest: r/o dissection ([id number]) CT/CT angio abdomen pelvis: R/O DISSECTION Copies [...] Martinez Jr., M.D.03/20/2021 8:52 AM Dictation Location: [place] [address] Transcribed By: [facility] 03/20/21 0852 Dictated By: Gavin Martinez Jr, MD 03/20/21 0841 Signed By: 03/20/21 0852 Normal [facility] Dipstick and Microscopicon 0 03-20-2021 Appearance (U) Clear Normal Clear [facility] Comment on above: Order Comment: Name Collection Type:: Clean-Voided Midstream Performed By: #### A DDONUAPLUS #### [address] Bacteria,Urine None Seen Normal None Seen [facility] Comment on above: Order Comment: Name Collection Type:: Clean-Voided Midstream Performed By: #### A DDONUAPLUS #### [facility] [address] [place] [address] [place] Bilirubin,Urine Negative Normal Negative [facility] Comment on above: Order Comment: Name Collection Type:: Clean-Voided Midstream Performed By: #### A DDONUAPLUS #### [facility] [address] [place] [address] [place] Color (U) Yellow Normal Yellow [facility] Comment on above: Order Comment: Name Collection Type:: Clean-Voided Midstream Performed By: #### A DDONUAPLUS #### [facility] [address] [place] [address] [place] Glucose Ql (U) 500 mg/dL High Normal [facility] Comment on above: Order Comment: Name Collection Type:: Clean-Voided Midstream Performed By: #### A DDONUAPLUS #### [facility] [address] [place] [address] [place] Hyaline Casts,Urine 0-8 Normal 0-8 [facility] Comment on above: Order Comment: Name Collection Type:: Clean-Voided Midstream Result Comment: PERF ORMED BY: [place] [address] PATHOLOGIST PROTOTYPER WALDO WANG M.D. Performed By: #### A DDONUAPLUS #### [facility] [address] [place] [address] [place] Ketones Ql (U) Trace High Negative [facility] Comment on above: Order Comment: Name Collection Type:: Clean-Voided Midstream Performed By: #### A DDONUAPLUS #### [facility] [address] [place] [address] [place] Leukocyte esterase Test strip Ql (U) Negative Normal Negative [facility] Comment on above: Order Comment: Name Collection Type:: Clean-Voided Midstream Performed By: #### A DDONUAPLUS #### [facility] [address] [place] [address] [place] Nitrite,Urine Negative Normal Negative [facility] Comment on above: Order Comment: Name Collection Type:: Clean-Voided Midstream Performed By: #### A DDONUAPLUS #### [facility] [address] [place] [address] Occult Blood,Urine Negative Normal Negative [facility] Comment on above: Order Comment: Name Collection Type:: Clean-Voided Midstream Performed By: #### A DDONUAPLUS #### [address] pH (U) 6.0 [pH] Normal 5.0-9.0 [facility] Comment on above: Order Comment: Name Collection Type:: Clean-Voided Midstream Performed By: #### A DDONUAPLUS #### [address] Protein,Urine Trace High Negative [facility] Comment on above: Order Comment: Name Collection Type:: Clean-Voided Midstream Performed By: #### A DDONUAPLUS #### [address] RBC,Urine 1-2 Normal 0-4 [facility] Comment on above: Order Comment: Name Collection Type:: Clean-Voided Midstream Performed By: #### A DDONUAPLUS #### [address] Renal Epithelial Cells,Urine None Seen Normal 0-1 [facility] Comment on above: Order Comment: Name Collection Type:: Clean-Voided Midstream Performed By: #### A DDONUAPLUS #### [facility] [address] [place] [address] Specificy [place],Urine > 1.050 High 1.001-1.030 [facility] Comment on above: Order Comment: Name Collection Type:: Clean-Voided Midstream Performed By: #### A DDONUAPLUS #### [place] [address] [place] Squamous Epithelial Cell,Urine 3-4 High 0-2 [facility] Comment on above: Order Comment: Name Collection Type:: Clean-Voided Midstream Performed By: #### A DDONUAPLUS #### [address] [place] [address] [place] Urobilinogen,Urine Normal Normal Normal [facility] Comment on above: Order Comment: Name Collection Type:: Clean-Voided Midstream Performed By: #### A DDONUAPLUS #### [facility] [address] [place], [place] [id number] [place] WBC,Urine 1-2 Normal 0-4 [facility] Comment on above: Order Comment: Name Collection Type:: Clean-Voided Midstream Performed By: #### A DDONUAPLUS #### [facility] [address] [place], [place] [id number] [place] ECG 12 lead ECGon 03-20-2021 ECG 12 lead ECG [facility] [place] [address] Electrocardiograph Report Signed Patient: Yeyo Avila MR#: [id number] : 1955 Acct:[id number] Age/Sex: 65 / F ADM Date: 03/19/21 Loc: ER Room: Type: [facility] ER Attending Dr: Ordering Provider: Ismael [...] MD 03/19/212224 Signed By: 03/21/21 0905 Normal [facility] XR chest 2V*on 03-20-2021 XR chest 2V* [facility] [place] [address] XRay Report Signed Patient: Yeyo Avila MR#: [id number] : 1955 Acct:[id number] Age/Sex: 65 / F ADM Date: 03/19/21 Loc: ER Room: Type: [facility] ER Attending Dr: Ordering Provider: Ismael [...] Martinez Jr., M.D.03/20/2021 8:53 AM Dictation Location: [place] [address] Transcribed By: [facility] 03/20/21 0853 Dictated By: Gavin Martinez Jr, MD 03/20/21 0852 Signed By: 03/20/21 0853 Normal [facility] B-Type Natriuretic Peptideon 03-19-2021 Natriuretic peptide B (Bld) [Mass/Vol] 30.0 pg/mL Normal 5-100 [facility] Comment on above: Result Comment: PERF ORMED BY: [place] [address] PATHOLOGIST PROTOTYPER WALDO WANG M.D. Performed By: #### B ELEVATOR SUPERVISOR, PTT, CKMB, LIPASE, CK, TROP, CBC, PT, CMP #### [address] Complete Blood Count Auto Di ffon 03-19-2021 Basophils (Bld) [#/Vol] 0.2 10*3/uL Normal 0.0-0.2 [facility] Comment on above: Result Comment: PERF ORMED BY: [place] [address] PATHOLOGIST PROTOTYPER WALDO WANG M.D. Performed By: #### B ELEVATOR SUPERVISOR, PTT, CKMB, LIPASE, CK, TROP, CBC, PT, CMP #### [address] Basophils/100 WBC (Bld) 0.9 % Normal . [facility] Comment on above: Performed By: #### B ELEVATOR SUPERVISOR, PTT, CKMB, LIPASE, CK, TROP, CBC, PT, CMP #### [address] Eosinophils (Bld) [#/Vol] 0.2 10*3/uL Normal 0.0-0.45 [facility] Comment on above: Performed By: #### B ELEVATOR SUPERVISOR, PTT, CKMB, LIPASE, CK, TROP, CBC, PT, CMP #### [address] Eosinophils/100 WBC (Bld) 1.1 % Normal . [facility] Comment on above: Performed By: #### B ELEVATOR SUPERVISOR, PTT, CKMB, LIPASE, CK, TROP, CBC, PT, CMP #### [address] Erythrocyte distribution width (RBC) [Ratio] 13.7 % Normal 11.9-15.3 [facility] Comment on above: Performed By: #### B ELEVATOR SUPERVISOR, PTT, CKMB, LIPASE, CK, TROP, CBC, PT, CMP #### [address] Hematocrit (Bld) [Volume fraction] 43.7 % Normal 34.0-46.4 [facility] Comment on above: Performed By: #### B ELEVATOR SUPERVISOR, PTT, CKMB, LIPASE, CK, TROP, CBC, PT, CMP #### [address] Hemoglobin (Bld) [Mass/Vol] 14.8 g/dL Normal 11.8-15.4 [facility] Comment on above: Performed By: #### B ELEVATOR SUPERVISOR, PTT, CKMB, LIPASE, CK, TROP, CBC, PT, CMP #### [address] Lymphocytes (Bld) [#/Vol] 4.2 10*3/uL Normal 1.00-4.8 [facility] Comment on above: Performed By: #### B ELEVATOR SUPERVISOR, PTT, CKMB, LIPASE, CK, TROP, CBC, PT, CMP #### [address] Lymphocytes/100 WBC (Bld) 23.0 % Normal . [facility] Comment on above: Performed By: #### B ELEVATOR SUPERVISOR, PTT, CKMB, LIPASE, CK, TROP, CBC, PT, CMP #### [address] MCH (RBC) [Entitic mass] 29.8 pg Normal 24.7-34.3 [facility] Comment on above: Performed By: #### B ELEVATOR SUPERVISOR, PTT, CKMB, LIPASE, CK, TROP, CBC, PT, CMP #### [address] MCV (RBC) [Entitic vol] 87.7 fL Normal 80-100 [facility] Comment on above: Performed By: #### B ELEVATOR SUPERVISOR, PTT, CKMB, LIPASE, CK, TROP, CBC, PT, CMP #### [address] Mean Corpuscular HGB Conc 33.9 g/dL Normal 32.0-35.0 [facility] Comment on above: Performed By: #### B ELEVATOR SUPERVISOR, PTT, CKMB, LIPASE, CK, TROP, CBC, PT, CMP #### [address] Monocytes (Bld) [#/Vol] 1.1 10*3/uL High 0.0-0.8 [facility] Comment on above: Performed By: #### B ELEVATOR SUPERVISOR, PTT, CKMB, LIPASE, CK, TROP, CBC, PT, CMP #### [address] Monocytes/100 WBC (Bld) 6.1 % Normal . [facility] Comment on above: Performed By: #### B ELEVATOR SUPERVISOR, PTT, CKMB, LIPASE, CK, TROP, CBC, PT, CMP #### [address] Neutrophils (Bld) [#/Vol] 12.4 10*3/uL High 1.8-7.7 [facility] Comment on above: Performed By: #### B ELEVATOR SUPERVISOR, PTT, CKMB, LIPASE, CK, TROP, CBC, PT, CMP #### [address] Neutrophils/100 WBC (Bld) 68.9 % Normal . [facility] Comment on above: Performed By: #### B ELEVATOR SUPERVISOR, PTT, CKMB, LIPASE, CK, TROP, CBC, PT, CMP #### [address] Nucleated RBC/100 WBC (Bld) [Ratio] 0.2 % Normal 0-0.5 [facility] Comment on above: Performed By: #### B ELEVATOR SUPERVISOR, PTT, CKMB, LIPASE, CK, TROP, CBC, PT, CMP #### [address] Platelet mean volume (Bld) [Entitic vol] 9.2 fL Normal 6.3-10.7 [facility] Comment on above: Performed By: #### B ELEVATOR SUPERVISOR, PTT, CKMB, LIPASE, CK, TROP, CBC, PT, CMP #### [address] Platelets (Bld) [#/Vol] 340 10*3/uL Normal 150-450 [facility] Comment on above: Performed By: #### B ELEVATOR SUPERVISOR, PTT, CKMB, LIPASE, CK, TROP, CBC, PT, CMP #### [address] RBC (Bld) [#/Vol] 4.98 10*6/uL Normal 3.60-5.00 [facility] Comment on above: Performed By: #### B ELEVATOR SUPERVISOR, PTT, CKMB, LIPASE, CK, TROP, CBC, PT, CMP #### [facility] [address] WBC (Bld) [#/Vol] 18.0 10*3/uL High 4.5-11.0 [facility] Comment on above: Performed By: #### B ELEVATOR SUPERVISOR, PTT, CKMB, LIPASE, CK, TROP, CBC, PT, CMP #### [facility] [address] Comprehensive Metabolic Pane talia 03-19-2021 Albumin [Mass/Vol] 4.7 g/dL Normal 3.2-5.5 [facility] Comment on above: Performed By: #### B ELEVATOR SUPERVISOR, PTT, CKMB, LIPASE, CK, TROP, CBC, PT, CMP #### [address] Albumin/Globulin [Mass ratio] 1.4 {ratio} Normal [facility] Comment on above: Performed By: #### B ELEVATOR SUPERVISOR, PTT, CKMB, LIPASE, CK, TROP, CBC, PT, CMP #### [address] ALP [Catalytic activity/Vol] 83 U/L Normal 32-92 [facility] Comment on above: Performed By: #### B ELEVATOR SUPERVISOR, PTT, CKMB, LIPASE, CK, TROP, CBC, PT, CMP #### [address] ALT [Catalytic activity/Vol] 15 U/L Normal 10-60 [facility] Comment on above: Performed By: #### B ELEVATOR SUPERVISOR, PTT, CKMB, LIPASE, CK, TROP, CBC, PT, CMP #### [address] AST [Catalytic activity/Vol] 15 U/L Normal 10-42 [facility] Comment on above: Performed By: #### B ELEVATOR SUPERVISOR, PTT, CKMB, LIPASE, CK, TROP, CBC, PT, CMP #### [address] Bilirubin [Mass/Vol] 1.6 mg/dL High 0.3-1.2 [facility] Comment on above: Result Comment: Samp les from patients who have taken Naproxen have shown spurious elevation in Total Bilirubin levels. A metabolite of Naproxen, O-desmethylnaproxen, has been shown to interfere with the Jendrassik-Grof method for measuring Total Bilirubin. Performed By: #### B ELEVATOR SUPERVISOR, PTT, CKMB, LIPASE, CK, TROP, CBC, PT, CMP #### [facility] [address] Calcium [Mass/Vol] 10.1 mg/dL Normal 8.2-10.2 [facility] Comment on above: Performed By: #### B ELEVATOR SUPERVISOR, PTT, CKMB, LIPASE, CK, TROP, CBC, PT, CMP #### [facility] [address] Chloride [Moles/Vol] 99 mmol/L Normal 95-114 [facility] Comment on above: Performed By: #### B ELEVATOR SUPERVISOR, PTT, CKMB, LIPASE, CK, TROP, CBC, PT, CMP #### [facility] [address] CO2 [Moles/Vol] 23.1 mmol/L Normal 22.0-30.0 [facility] Comment on above: Performed By: #### B ELEVATOR SUPERVISOR, PTT, CKMB, LIPASE, CK, TROP, CBC, PT, CMP #### [facility] [address] Creatinine [Mass/Vol] 1.07 mg/dL High 0.44-1.03 [facility] Comment on above: Performed By: #### B ELEVATOR SUPERVISOR, PTT, CKMB, LIPASE, CK, TROP, CBC, PT, CMP #### [facility] [address] Creatinine Clr Calc Pharmacy 64.26 [facility] Comment on above: Performed By: #### B ELEVATOR SUPERVISOR, PTT, CKMB, LIPASE, CK, TROP, CBC, PT, CMP #### [facility] [address] Estimated GFR ( [place] > 60 Normal [facility] Comment on above: Result Comment: GFR estimated reference range: According to KDOQI guidelines, <60 ml/min/1.73m2 is sufficient to diagnose a patient with chronic kidney disease. Performed By: #### B ELEVATOR SUPERVISOR, PTT, CKMB, LIPASE, CK, TROP, CBC, PT, CMP #### [facility] [address] Estimated GFR (Non- Am 52 [facility] Comment on above: Performed By: #### B ELEVATOR SUPERVISOR, PTT, CKMB, LIPASE, CK, TROP, CBC, PT, CMP #### [address] Globulin (S) [Mass/Vol] 3.3 g/dL [facility] Comment on above: Performed By: #### B ELEVATOR SUPERVISOR, PTT, CKMB, LIPASE, CK, TROP, CBC, PT, CMP #### [address] Glucose [Mass/Vol] 264 mg/dL High 70-100 [facility] Comment on above: Result Comment: [facility] Glucose Reference Range is dependent on time and content of last meal. Glucose of more than 200 mg/dL in a nonstressed, ambulatory subject supports the diagnosis of Diabetes Mellitus. ADA recommended reference range Performed By: #### B ELEVATOR SUPERVISOR, PTT, CKMB, LIPASE, CK, TROP, CBC, PT, CMP #### [address] Potassium [Moles/Vol] 3.8 mmol/L Normal 3.5-5.1 [facility] Comment on above: Performed By: #### B ELEVATOR SUPERVISOR, PTT, CKMB, LIPASE, CK, TROP, CBC, PT, CMP #### [address] Protein [Mass/Vol] 8.0 g/dL High 6.1-7.9 [facility] Comment on above: Performed By: #### B ELEVATOR SUPERVISOR, PTT, CKMB, LIPASE, CK, TROP, CBC, PT, CMP #### [address] Sodium [Moles/Vol] 137 mmol/L Normal 136-146 [facility] Comment on above: Performed By: #### B ELEVATOR SUPERVISOR, PTT, CKMB, LIPASE, CK, TROP, CBC, PT, CMP #### [address] Urea nitrogen [Mass/Vol] 29 mg/dL High 9-23 [facility] Comment on above: Performed By: #### B ELEVATOR SUPERVISOR, PTT, CKMB, LIPASE, CK, TROP, CBC, PT, CMP #### [facility] [address] Creatine Kinaseon 03-19-2021 CK [Catalytic activity/Vol] 42 U/L Normal 22-269 [facility] Comment on above: Performed By: #### B ELEVATOR SUPERVISOR, PTT, CKMB, LIPASE, CK, TROP, CBC, PT, CMP #### [address] Creatinine Kinase MBon 03-19 CK.MB [Mass/Vol] 1.3 ng/mL Normal 0.6-6.3 [facility] Comment on above: Performed By: #### B ELEVATOR SUPERVISOR, PTT, CKMB, LIPASE, CK, TROP, CBC, PT, CMP #### [address] CKMB Relative Index 3.0 % High 0.00-2.50 [facility] Comment on above: Performed By: #### B ELEVATOR SUPERVISOR, PTT, CKMB, LIPASE, CK, TROP, CBC, PT, CMP #### [address] ECG 12 lead ECGon 03-19-2021 ECG 12 lead ECG [facility] Main [place] [address] [place] [address] Electrocardiograph Report Signed Patient: Yeyo Avila MR#: [id number] : 1955 Acct:[id number] Age/Sex: 65 / F ADM Date: 03/19/21 Loc: ER Room: Type: [facility] ER Attending Dr: Ordering Provider: Ismael [...] Timoteo Cooper MD 03/19/212112 Signed By: 03/21/21 09 Normal [facility] Lipaseon 03-19-2021 Lipase [Catalytic activity/Vol] 21.0 U/L Low 22-51 [facility] Comment on above: Result Comment: PERF ORMED BY: [place] [phone] PATHOLOGIST PROTOTYPER WALDO WANG M.D. Performed By: #### B ELEVATOR SUPERVISOR, PTT, CKMB, LIPASE, CK, TROP, CBC, PT, CMP #### [address] Partial Thromboplastin Timeo n 03-19-2021 aPTT Coag (Bld) [Time] 26.1 s Normal 25.1-36.5 [facility] Comment on above: Result Comment: PERF ORMED BY: [place] [address] PATHOLOGIST PROTOTYPER WALDO WANG M.D. Performed By: #### B ELEVATOR SUPERVISOR, PTT, CKMB, LIPASE, CK, TROP, CBC, PT, CMP #### [address] Prothrombin Time INRon 03-19 INR Coag (PPP) [Relative time] 1.2 {INR} Normal [facility] Comment on above: Result Comment: INR Therapeutic [...] 3 - 4.5 Performed By: #### B ELEVATOR SUPERVISOR, PTT, CKMB, LIPASE, CK, TROP, CBC, PT, CMP #### [facility] [address] PT Coag (PPP) [Time] 13.6 s High 9.0-12.9 [facility] Comment on above: Performed By: #### B ELEVATOR SUPERVISOR, PTT, CKMB, LIPASE, CK, TROP, CBC, PT, CMP #### [facility] [address] Troponin I(TnI)on 03-19-2021 Troponin I.cardiac [Mass/Vol] ng/mL Normal 0-0.02 [facility] Comment on above: Result Comment: EBONY AL Cut off value > or equal to 0.03 ng/mL in conjunction with clinical conditions of myocardial infarction. (www.escardio.org/guidelines) PERFORMED BY: [place] [address] PATHOLOGIST PROTOTYPER WALDO WANG M.D. Performed By: #### B ELEVATOR SUPERVISOR, PTT, CKMB, LIPASE, CK, TROP, CBC, PT, CMP #### [place] [id number] RUST Basic Metab w/rfx MGon 09-01 (cont.) Normal [facility] Comment on above: Result Comment: Aver age GFR for 60-69 years old: 85 mL/min/1.73sq m Chronic Kidney Disease: <60 mL/min/1.73sq m Kidney failure: <15 mL/min/1.73sq m eGFR calculated using average adult body mass. Additional eGFR calculator available at: http://www.FinancialForce.com.Chosen.fm/multiple_crcl_2012.htm Performed By: #### E RTPF #### [address] [address] Bench Carpenter: Dheeraj Garcia MD Anion gap [Moles/Vol] 13 mmol/L Normal 9-17 [facility] Comment on above: Performed By: #### E RTPF #### [address] [address] Bench Carpenter: Dheeraj Garcia MD Calcium [Mass/Vol] 8.8 mg/dL Normal 8.6-10.4 [facility] Comment on above: Performed By: #### E RTPF #### [address] [address] Bench Carpenter: Dheeraj Garcia MD Chloride [Moles/Vol] 106 mmol/L Normal 98-107 [facility] Comment on above: Performed By: #### E RTPF #### [address] [address] Bench Carpenter: Dheeraj Garcia MD CO2 [Moles/Vol] 21 mmol/L Normal 20-31 [facility] Comment on above: Performed By: #### E RTPF #### [address] [address] Bench Carpenter: Dheeraj Garcia MD Creatinine [Mass/Vol] 0.53 mg/dL Normal 0.50-0.90 [facility] Comment on above: Performed By: #### E RTPF #### [address] [address] Bench Carpenter: Dheeraj Garcia MD GFR, Amer >60 Normal >60 [facility] Comment on above: Performed By: #### E RTPF #### [address] [address] Bench Carpenter: Dheeraj Garcia MD GFR,non Amer >60 Normal >60 [facility] Comment on above: Performed By: #### E RTPF #### [address] [address] Bench Carpenter: Dheeraj Garcia MD Glucose [Mass/Vol] 169 mg/dL High 70-99 [facility] Comment on above: Performed By: #### E RTPF #### [address] [address] Bench Carpenter: Dheeraj Garcia MD Potassium [Moles/Vol] 4.0 mmol/L Normal 3.7-5.3 [facility] Comment on above: Performed By: #### E RTPF #### [address] [address] Bench Carpenter: Dheeraj Garcia MD Sodium [Moles/Vol] 140 mmol/L Normal 135-144 [facility] Comment on above: Performed By: #### E RTPF #### [address] [address] Bench Carpenter: Dheeraj Garcia MD Urea nitrogen [Mass/Vol] 10 mg/dL Normal 8-23 [facility] Comment on above: Performed By: #### E RTPF #### [address] [address] Bench Carpenter: Dheeraj Garcia MD BUN/CRE Ratio NOT REPORTED Normal 9-20 [facility] Comment on above: Performed By: #### E RTPF #### [address] [address] Bench Carpenter: Dheeraj Garcia MD Staging: NOT REPORTED Normal [facility] Comment on above: Performed By: #### E RTPF #### [address] [address] Bench Carpenter: Dheeraj Garcia MD Basic Metabolic Panel w/ Ref martín to MGon 09-01-2020 Anion gap [Moles/Vol] 13 mmol/L 9 - 17 mmol/L [place] Bun/Cre Ratio NOT REPORTED [place] Calcium [Mass/Vol] 8.8 mg/dL 8.6 - 10. 4 mg/dL [place] Chloride [Moles/Vol] 106 mmol/L 98 - 10 7 mmol/L [place] CO2 [Moles/Vol] 21 mmol/L 20 - 31 mmol/L [place] Creatinine [Mass/Vol] 0.53 mg/dL 0.5 - 0.9 mg/dL [place] GFR >60 >60 mL/min [place], [place] GFR Non- >60 >60 mL/min [place] GFR/1.73 sq M predicted among non-blacks MDRD (S/P/Bld) [Vol rate/Area] [place] Comment on above: Average GFR for 60-6 9 years old: 85 mL/min/1.73sq m Chronic Kidney Disease: <60 mL/min/1.73sq m Kidney failure: <15 mL/min/1.73sq m eGFR calculated using average adult body mass. Additional eGFR calculator available at: http://www.[employer]/multiple_crcl_2012.htm GFR/1.73 sq M predicted among non-blacks MDRD (S/P/Bld) [Vol rate/Area] NOT REPORTED [place] Glucose [Mass/Vol] 169 mg/dL High 70 - 99 mg/dL [place] Interpretation and review of laboratory results Abnormal [place] Potassium [Moles/Vol] 4.0 mmol/L 3.7 - 5.3 mmol/L [place] Sodium [Moles/Vol] 140 mmol/L 135 - 144 mmol/L [place] Urea nitrogen [Mass/Vol] 10 mg/dL 8 - 23 mg/dL [place] CBC auto differentialon 08-17 Basophils (Bld) [#/Vol] 0.10 10*3/uL [place] Basophils/100 WBC (Bld) 1 % 0 - 2 % [place] Differential Type NOT REPORTED [place] Eosinophils (Bld) [#/Vol] 0.25 10*3/uL [place] Eosinophils/100 WBC (Bld) 3 % 1 - 4 % [place] Erythrocyte distribution width (RBC) [Ratio] 14.0 % 11.8 - 14.4 % [place] Hematocrit (Bld) [Volume fraction] 40.7 % 36.3 - 47.1 % [place] Hemoglobin (Bld) [Mass/Vol] 12.7 g/dL 11.9 - 15.1 g/dL [place] Immature granulocytes (Bld) [#/Vol] 0.06 10*3/uL [place] Immature granulocytes (Bld) [#/Vol] 1 % High 0 [place] Interpretation and review of laboratory results Abnormal [place] Lymphocytes (Bld) [#/Vol] 2.12 10*3/uL [place] Lymphocytes/100 WBC (Bld) 23 % Low 24 - 43 % [place] MCH (RBC) [Entitic mass] 28.1 pg 25.2 - 33.5 pg [place] MCHC (RBC) [Mass/Vol] 31.2 g/dL 28.4 - 34.8 g/dL [place] MCV (RBC) [Entitic vol] 90.0 fL 82.6 - 102.9 fL [place] Monocytes (Bld) [#/Vol] 0.68 10*3/uL [place] Monocytes/100 WBC (Bld) 7 % 3 - 12 % [place] Platelet mean volume (Bld) [Entitic vol] 10.6 fL 8.1 - 13.5 fL [place] Platelets (Bld) [#/Vol] NOT REPORTED [place] Platelets (Bld) [#/Vol] 251 10*3/uL [place] RBC (Bld) [#/Vol] 4.52 10*6/uL 3.95 - 5.1 1 m/uL [place] RBC morphology finding Nom (Bld) NOT REPORTED [place] Segmented neutrophils/100 WBC (Bld) 65 % 36 - 65 % [place] Segs Absolute 6.18 [place] WBC (Bld) [#/Vol] 0.0 10*3/uL 0.0 per 10 0 WBC [place] WBC (Bld) [#/Vol] 9.4 10*3/uL [place] WBC Morphology NOT REPORTED [place], [place] CBC with Diffon 09-01-2020 Abs. Basophil 0.10 k/uL Normal 0.00-0.20 [facility] Comment on above: Performed By: #### C DP, HCG, ALCB, BMPX, LIPR, GLYHGB #### [facility] [address] [place] [address] Bench Carpenter: Dheeraj Garcia MD Abs.Imm.Granulocyte 0.06 k/uL Normal 0.00-0.30 [facility] Comment on above: Performed By: #### C DP, HCG, ALCB, BMPX, LIPR, GLYHGB #### [facility] [address] [place] [address] [phone] Bench Carpenter: Dheeraj Garcia MD Abs.Neutrophil (Seg) 6.18 k/uL Normal 1.50-8.10 [facility] Comment on above: Performed By: #### C DP, HCG, ALCB, BMPX, LIPR, GLYHGB #### [facility] [address] [place] [address] Bench Carpenter: Dheeraj Garcia MD Basophils/100 WBC (Bld) 1 % Normal 0-2 [facility] Comment on above: Performed By: #### C DP, HCG, ALCB, BMPX, LIPR, GLYHGB #### [facility] [address] [place] [address] [phone] Bench Carpenter: Dheeraj Garcia MD Eosinophils (Bld) [#/Vol] 0.25 10*3/uL Normal 0.00-0.44 [facility] Comment on above: Performed By: #### C DP, HCG, ALCB, BMPX, LIPR, GLYHGB #### [place] [address] Bench Carpenter: Dheeraj Garcia MD Eosinophils/100 WBC (Bld) 3 % Normal 1-4 [facility] Comment on above: Performed By: #### C DP, HCG, ALCB, BMPX, LIPR, GLYHGB #### [place] [address] Bench Carpenter: Dheeraj Garcia MD Erythrocyte distribution width (RBC) [Ratio] 14.0 % Normal 11.8-14.4 [facility] Comment on above: Performed By: #### C DP, HCG, ALCB, BMPX, LIPR, GLYHGB #### [place] [address] Bench Carpenter: Dheeraj Garcia MD Hematocrit (Bld) [Volume fraction] 40.7 % Normal 36.3-47.1 [facility] Comment on above: Performed By: #### C DP, HCG, ALCB, BMPX, LIPR, GLYHGB #### [place] [address] Bench Carpenter: Dheeraj Garcia MD Hemoglobin (Bld) [Mass/Vol] 12.7 g/dL Normal 11.9-15.1 [facility] Comment on above: Performed By: #### C DP, HCG, ALCB, BMPX, LIPR, GLYHGB #### [facility] [address] [place] [address] Bench Carpenter: Dheeraj Garcia MD Immature granulocytes (Bld) [#/Vol] 1 % High 0 [facility] Comment on above: Performed By: #### C DP, HCG, ALCB, BMPX, LIPR, GLYHGB #### [address] [address] Bench Carpenter: Dheeraj Garcia MD Lymphocytes (Bld) [#/Vol] 2.12 10*3/uL Normal 1.10-3.70 [facility] Comment on above: Performed By: #### C DP, HCG, ALCB, BMPX, LIPR, GLYHGB #### [address] [address] Bench Carpenter: Dheeraj Garcia MD Lymphocytes/100 WBC (Bld) 23 % Low 24-43 [facility] Comment on above: Performed By: #### C DP, HCG, ALCB, BMPX, LIPR, GLYHGB #### [address] [address] Bench Carpenter: Dheeraj Garcia MD MCH (RBC) [Entitic mass] 28.1 pg Normal 25.2-33.5 [facility] Comment on above: Performed By: #### C DP, HCG, ALCB, BMPX, LIPR, GLYHGB #### [address] [address] Bench Carpenter: Dheeraj Garcia MD MCHC (RBC) [Mass/Vol] 31.2 g/dL Normal 28.4-34.8 [facility] Comment on above: Performed By: #### C DP, HCG, ALCB, BMPX, LIPR, GLYHGB #### [facility] [address] [place] [address] Bench Carpenter: Dheeraj Garcia MD MCV (RBC) [Entitic vol] 90.0 fL Normal 82.6-102.9 [facility] Comment on above: Performed By: #### C DP, HCG, ALCB, BMPX, LIPR, GLYHGB #### [facility] [address] [place] [address] Bench Carpenter: Dheeraj Garcia MD Monocytes (Bld) [#/Vol] 0.68 10*3/uL Normal 0.10-1.20 [facility] Comment on above: Performed By: #### C DP, HCG, ALCB, BMPX, LIPR, GLYHGB #### [place] [address] Bench Carpenter: Dheeraj Garcia MD Monocytes/100 WBC (Bld) 7 % Normal 3-12 [facility] Comment on above: Performed By: #### C DP, HCG, ALCB, BMPX, LIPR, GLYHGB #### [place] [address] Bench Carpenter: Dheeraj Garcia MD Neutrophil (Seg) 65 % Normal 36-65 [facility] Comment on above: Performed By: #### C DP, HCG, ALCB, BMPX, LIPR, GLYHGB #### [place] [address] Bench Carpenter: Dheeraj Garcia MD NRBC Automated 0.0 per 100 WBC Normal 0.0 [facility] Comment on above: Performed By: #### C DP, HCG, ALCB, BMPX, LIPR, GLYHGB #### [place] [address] Bench Carpenter: Dheeraj Garcia MD Platelet mean volume (Bld) [Entitic vol] 10.6 fL Normal 8.1-13.5 [facility] Comment on above: Performed By: #### C DP, HCG, ALCB, BMPX, LIPR, GLYHGB #### [place] [address] Bench Carpenter: Dheeraj Garcia MD Platelets (Bld) [#/Vol] 251 10*3/uL Normal 138-453 [facility] Comment on above: Performed By: #### C DP, HCG, ALCB, BMPX, LIPR, GLYHGB #### [address] [address] Bench Carpenter: Dheeraj Garcia MD RBC (Bld) [#/Vol] 4.52 10*6/uL Normal 3.95-5.11 [facility] Comment on above: Performed By: #### C DP, HCG, ALCB, BMPX, LIPR, GLYHGB #### [facility] [address] [place] [phone] Bench Carpenter: Dheeraj Garcia MD WBC (Bld) [#/Vol] 9.4 10*3/uL Normal 3.5-11.3 [facility] Comment on above: Performed By: #### C DP, HCG, ALCB, BMPX, LIPR, GLYHGB #### [address] [address] Bench Carpenter: Dheeraj Garcia MD Auto Diff Performed NOT REPORTED Normal [facility] Comment on above: Performed By: #### C DP, HCG, ALCB, BMPX, LIPR, GLYHGB #### [address] [address] Bench Carpenter: Dheeraj Garcia MD Platelets (Bld) [#/Vol] NOT REPORTED Normal [facility] Comment on above: Performed By: #### C DP, HCG, ALCB, BMPX, LIPR, GLYHGB #### [address] [address] Bench Carpenter: Dheeraj Garcia MD RBC morphology finding Nom (Bld) NOT REPORTED Normal [facility] Comment on above: Performed By: #### C DP, HCG, ALCB, BMPX, LIPR, GLYHGB #### [address] [address] Bench Carpenter: Dheeraj Garcia MD WBC Morphology NOT REPORTED Normal [facility] Comment on above: Performed By: #### C DP, HCG, ALCB, BMPX, LIPR, GLYHGB #### [facility] [address] [place] [address] Bench Carpenter: Dheeraj Garcia MD Echo Completeon 09-01-2020 [place], pn Incoming Cardio Results From [facility] - 09/01/2020 3:37 PM EDT Transthoracic Echocardiography Report (TTE) Patient Name MARGARITA Date of Study 09/01/2020 YEYO Date of 1955 Gender Female Age 64 year(s) Race Room Number 0234 Height: 65 inch, 165.1 cm Corporate ID [id number] Weight: 232 pounds, 105.2 kg # Patient Acct [id number] BSA: 2.11 m^2 BMI: 38.61 # kg/m^2 MR # [id number] Medical Concierge Pérez Lao Interpreting Physician Abundio Aguilar Fellow Referring Nurse Practitioner Interpreting Referring Physician Moisés Rodríguez Fellow Type of Study TTE procedure:2D Echocardiogram, M-Mode, Doppler, Color Doppler, Bubble Study. Procedure Date Date: 09/01/2020 Start: 07:38 AM Study Location: [facility] Technical Quality: Fair visualization Comments:Syncope, R/o CVA [...] Wall E' velocity:0.07 m/s Lateral Wall E/E':8.8 [place], [place] Transthoracic Echocardiography Report (TTE) Patient Name DENDINGER Date of Study 09/01/2020 YEYO Date of 1955 Gender Female Age 64 year(s) Race Room Number 0234 Height: 65 inch, 165.1 cm Corporate ID [id number] Weight: 232 pounds, 105.2 kg # Patient Acct [id number] BSA: 2.11 m^2 BMI: 38.61 # kg/m^2 MR # [id number] Medical Concierge GarfieldRimmaPérez Interpreting Physician Abundio Aguilar Fellow Referring Nurse Practitioner Interpreting Referring Physician Moisés Rodríguez Fellow Type of Study TTE procedure:2D Echocardiogram, M-Mode, Doppler, Color Doppler, Bubble Study. Procedure Date Date: 09/01/2020 Start: 07:38 AM Study Location: [facility] Technical Quality: Fair visualization Comments:Syncope, R/o CVA [...] Wall E' velocity:0.07 m/s Lateral Wall E/E':8.8 [place] Ethanolon 09-01-2020 Ethanol [Mass/Vol] mg/dL <10 mg/dL [place] Ethanol percent <0.010 <0.010 % [facility] [place] [place] Ethanol Alcoholon 09-01-2020 Ethanol [Mass/Vol] mg/dL Normal <10 [facility] Comment on above: Performed By: #### E RTPF #### [address] [phone] Bench Carpenter: Dheeraj Garcia MD Ethanol percent <0.010 Normal <0.010 [facility] Comment on above: Performed By: #### E RTPF #### [address] [address] Bench Carpenter: Dheeraj Garcia MD HCG Qualitative, Serumon hCG Qual Negative NEGATIVE [place] Comment on above: Specimens with hCG l evels near the threshold of the test (25 mIU/mL) may give a negative or indeterminate result. In such cases, another test should be performed with a new specimen in 48-72 hours. If early is suspected clinically in this setting, correlation with quantitative serum b-hCG level is suggested. [facility] has confirmed the use of plasma for this test. This has not been cleared or approved by the U.S. Food and Drug Administration. The FDA has determined that such clearance is not necessary. HCG Screen, Bloodon 09-01-20 20 HCG Qn Negative Normal NEG [facility] Comment on above: Result Comment: Spec imens with hCG levels near the threshold of the test (25 mIU/mL) may give a negative or indeterminate result. In such cases, another test should be performed with a new specimen in 48-72 hours. If early is suspected clinically in this setting, correlation with quantitative serum b-hCG level is suggested. [facility] confirmed the use of plasma for this test. This has not been cleared or approved by the U.S. Food and Drug Administration. The FDA has determined that such clearance is not necessary. Performed By: #### E RTPF #### [facility] [address] [place] [address] [phone] Bench Carpenter: Dheeraj Garcia MD Hematologyon 09-01-2020 WBC (Bld) [#/Vol] DUPLICATE ORDER per 100 WBC M [place] Hemoglobin A1Con 09-01-2020 HbA1c (Bld) [Mass fraction] 151 mg/dL Normal [facility] Comment on above: Result Comment: The ADA and AACC recommend providing the estimated average glucose result to permit better patient understanding of their HBA1c result. Performed By: #### E RTPF #### [address] [phone] Bench Carpenter: Dheeraj Garcia MD HbA1c (Bld) [Mass fraction] 6.9 % High 4.0-6.0 [facility] Comment on above: Performed By: #### E RTPF #### [address] [phone] Bench Carpenter: Dheeraj Garcia MD Hemoglobin A1con 09-01-2020 Glucose [Mass/Vol] 151 mg/dL [place] Comment on above: The ADA and AACC rec ommend providing the estimated average glucose result to permit better patient understanding of their HBA1c result. HbA1c (Bld) [Mass fraction] 6.9 % High 4 - 6 % [place] Interpretation and review of laboratory results Abnormal [place] Lipid Profileon 09-01-2020 Cholesterol [Mass/Vol] 123 mg/dL Normal <200 [facility] Comment on above: Result Comment: Cholesterol Guidelines: <200 Desirable 200-240 Borderline >240 Undesirable Performed By: #### E RTPF #### [address] [place] [address] Bench Carpenter: Dheeraj Garcia MD Cholesterol in HDL [Mass/Vol] 43 mg/dL Normal >40 [facility] Comment on above: Result Comment: HDL Guidelines: <40 Undesirable 40-59 Borderline >59 Desirable Performed By: #### E RTPF #### [facility] [address] [place] [phone] Bench Carpenter: Dheeraj Garcia MD Cholesterol in LDL [Mass/Vol] 50 mg/dL Normal 0-130 [facility] Comment on above: Result Comment: LDL Guidelines: <100 Desirable 100-129 Near to/above Desirable 130-159 Borderline >159 Undesirable Direct (measured) LDL and calculated LDL are not interchangeable tests. Performed By: #### E RTPF #### [facility] [address] [place] [phone] Bench Carpenter: Dheeraj Garcia MD Cholesterol.total/Chol esterol in HDL [Mass ratio] 2.9 {ratio} Normal <5 [facility] Comment on above: Performed By: #### E RTPF #### [facility] [address] [place] [phone] Bench Carpenter: Dheeraj Garcia MD Triglyceride [Mass/Vol] 149 mg/dL Normal <150 [facility] Comment on above: Result Comment: Triglyceride Guidelines: <150 Desirable 150-199 Borderline 200-499 High >499 Very high Based on AHA Guidelines for fasting triglyceride, August 2012. Performed By: #### E RTPF #### [facility] [address] [place] [phone] Bench Carpenter: Dheeraj Garcia MD Cholesterol in VLDL [Mass/Vol] NOT REPORTED Normal - [facility] Comment on above: Performed By: #### E RTPF #### [facility] [address] [place] [phone] Bench Carpenter: Dheeraj Garcia MD Lipid panel - fastingon 08-17 Cholesterol [Mass/Vol] 123 mg/dL <200 [place] Comment on above: Cholesterol Guidelines: <200 Desirable 200-240 Borderline >240 Undesirable Cholesterol in HDL [Mass/Vol] 43 mg/dL >40 [place] Comment on above: HDL Guidelines: <40 Undesirable 40-59 Borderline >59 Desirable Cholesterol in LDL [Mass/Vol] 50 mg/dL 0 - 130 mg/dL [place] Comment on above: LDL Guidelines: <100 Desirable 100-129 Near to/above Desirable 130-159 Borderline >159 Undesirable Direct (measured) LDL and calculated LDL are not interchangeable tests. Cholesterol in VLDL [Mass/Vol] NOT REPORTED 1 - 30 mg/dL [place] Cholesterol.total/Chol esterol in HDL [Mass ratio] 2.9 {ratio} <5 [place] Triglyceride [Mass/Vol] 149 mg/dL <150 [place] Comment on above: Triglyceride Guidelines: <150 Desirable 150-199 Borderline 200-499 High >499 Very high Based on AHA Guidelines for fasting triglyceride, August 2012. Metabolic Panelon 09-01-2020 GFR/1.73 sq M predicted among non-blacks MDRD (S/P/Bld) [Vol rate/Area] DUPLICATE ORDER [place] TRAUMA PANELon 09-01-2020 Hubert Test NOT REPORTED [place], [place] Anion gap [Moles/Vol] DUPLICATE ORDER mmol/L [place] aPTT Coag (Bld) [Time] 27.5 s [place], [place] Comment on above: IV Heparin Therapy Range: 48.6-77.8 aPTT Coag (Bld) [Time] 37.0 s [place] Blood Bank Specimen BILL FOR SERVICES PERFORMED [place] Carboxyhemoglobin 0.6 % 0 - 5 % [place], [place] Comment on above: Reference Range: Non-Smokers 0-2% Average Smoker 2-4% Heavy Smoker <10% Chloride [Moles/Vol] DUPLICATE ORDER mmol/L [place] CO2 [Moles/Vol] DUPLICATE ORDER mmol/L [place], [place] Creatinine [Mass/Vol] DUPLICATE ORDER mg/dL [place] Erythrocyte distribution width (RBC) [Ratio] DUPLICATE ORDER % [place] Ethanol [Mass/Vol] Order moved to nearest draw time. [id number] mg/dL [place] Ethanol percent Order moved to nearest draw time. [id number] % [place] FIO2 UNKNOWN [place] GFR DUPLICATE ORDER >60 mL/min [place] GFR Non- DUPLICATE ORDER >60 mL/min [place] Glucose [Mass/Vol] DUPLICATE ORDER mg/dL [place] hCG Qual Order moved to nearest draw time. [id number] NEGATIVE [place] HCO3, Venous 27.6 mmol/L 24 - 30 mmol/L [place] Hematocrit (Bld) [Volume fraction] DUPLICATE ORDER % [place] Hemoglobin (Bld) [Mass/Vol] DUPLICATE ORDER g/dL [place] INR Coag (PPP) [Relative time] 1.0 {INR} [place] Comment on above: Therapeutic Range: Moderate Anticoagulant Intensity: INR = 2.0-3.0 High Anticoagulant Intensity: INR = 2.5-3.5 Interpretation and review of laboratory results Abnormal [place] MCH (RBC) [Entitic mass] DUPLICATE ORDER pg [place] MCHC (RBC) [Mass/Vol] DUPLICATE ORDER g/dL [place] MCV (RBC) [Entitic vol] DUPLICATE ORDER fL [place] Methemoglobin NOT REPORTED 0 - 1.5 % [place] Mode NOT REPORTED [place] Negative Base Excess, Christo NOT REPORTED 0 - 2 mmol/L [place] NOTIFICATION NOT REPORTED [place] NOTIFICATION TIME NOT REPORTED [place] O2 Device/Flow/% NOT REPORTED [place] Oxygen saturation in Blood 43.1 % Low 60 - 85 % [place] Oxyhemoglobin NOT REPORTED 95 - 98 % [place] pCO2, Christo 48.8 [place] pCO2, Christo, Temp Adj NOT REPORTED [place], [place] Peep/Cpap NOT REPORTED [place] pH, Christo 7.371 [place] pH, Christo, Temp Adj NOT REPORTED [place] Platelet mean volume (Bld) [Entitic vol] DUPLICATE ORDER fL [place] Platelets (Bld) [#/Vol] DUPLICATE ORDER k/uL [place] pO2, Christo 23.6 Low [place] pO2, Christo, Temp Adj NOT REPORTED [place], [place] Positive Base Excess, Christo 2.1 mmol/L High 0 - 2 mmol/L [place] Potassium [Moles/Vol] DUPLICATE ORDER mmol/L [place] PSV NOT REPORTED [place] PT Coag (PPP) [Time] 10.4 s [place], [place] Pt. Position NOT REPORTED [place] RBC (Bld) [#/Vol] DUPLICATE ORDER m/uL [place], [place] Sample Site NOT REPORTED [place], [place] Set Rate NOT REPORTED [place] Sodium [Moles/Vol] DUPLICATE ORDER mmol/L [place], [place] Text for Respiratory NOT REPORTED [place] Total Hb NOT REPORTED 12 - 16 g/dl [place] Total Rate NOT REPORTED [place] Urea nitrogen [Mass/Vol] DUPLICATE ORDER mg/dL [place] NOT REPORTED [place] Trauma Profileon 09-01-2020 aPTT Coag (Bld) [Time] 27.5 s Normal 20.5-30.5 [facility] Comment on above: Result Comment: IV Heparin Therapy Range: 48.6-77.8 Performed By: #### E RTPF #### [facility] B[facility] [place] [address] Bench Carpenter: Dheeraj Garcia MD INR Coag (PPP) [Relative time] 1.0 {INR} Normal [facility] Comment on above: Result Comment: Therapeutic Range: Moderate Anticoagulant Intensity: INR = 2.0-3.0 High Anticoagulant Intensity: INR = 2.5-3.5 Performed By: #### E RTPF #### [address] [address] Bench Carpenter: Dheeraj Garcia MD PT Coag (PPP) [Time] 10.4 s Normal 9.0-12.0 [facility] Comment on above: Performed By: #### E RTPF #### [address] [address] Bench Carpenter: Dheeraj Garcia MD Body Temp. 37.0 Normal [facility] Comment on above: Performed By: #### E RTPF #### [address] [address] Bench Carpenter: Dheeraj Garcia MD Carboxy Hgb 0.6 % Normal 0-5 [facility] Comment on above: Result Comment: Reference Range: Non-Smokers 0-2% Average Smoker 2-4% Heavy Smoker <10% Performed By: #### E RTPF #### [address] [address] Bench Carpenter: Dheeraj Garcia MD FIO2 UNKNOWN Normal [facility] Comment on above: Performed By: #### E RTPF #### [address] [address] Bench Carpenter: Dheeraj Garcia MD HCO3 (Bld) [Moles/Vol] 27.6 mmol/L Normal 24-30 M [facility] Comment on above: Performed By: #### E RTPF #### [address] [address] Bench Carpenter: Dheeraj Garcia MD Oxygen (Bld) [Partial pressure] 23.6 mm[Hg] Low 30-50 [facility] Comment on above: Performed By: #### E RTPF #### [place] [address] Bench Carpenter: Dheeraj Garcia MD Oxygen saturation in Blood 43.1 % Low 60.0-85.0 [facility] Comment on above: Performed By: #### E RTPF #### [address] [address] Bench Carpenter: Dheeraj Garcia MD pCO2 48.8 Normal 39-55 [facility] Comment on above: Performed By: #### E RTPF #### [address] [address] Bench Carpenter: Dheeraj Garcia MD pH (Bld) 7.371 [pH] Normal 7.320-7.420 [facility] Comment on above: Performed By: #### E RTPF #### [address] [address] Bench Carpenter: Dheeraj Garcia MD Positive Base Excess 2.1 mmol/L High 0.0-2.0 [facility] Comment on above: Performed By: #### E RTPF #### [address] [address] Bench Carpenter: Dheeraj Garcia MD Hubert Test NOT REPORTED Normal [facility] Comment on above: Performed By: #### E RTPF #### [address] [address] Bench Carpenter: Dheeraj Garcia MD Methemoglobin NOT REPORTED Normal 0.0-1.5 [facility] Comment on above: Performed By: #### E RTPF #### [address] [address] Bench Carpenter: Dheeraj Garcia MD Mode NOT REPORTED Normal [facility] Comment on above: Performed By: #### E RTPF #### [address] [address] Bench Carpenter: Dheeraj Garcia MD Negative Base Excess NOT REPORTED Normal 0.0-2.0 [facility] Comment on above: Performed By: #### E RTPF #### [address] [address] Bench Carpenter: Dheeraj Garcia MD Notification Time NOT REPORTED Normal [facility] Comment on above: Performed By: #### E RTPF #### [address] [address] Bench Carpenter: Dheeraj Garcia MD Notification: NOT REPORTED Normal [facility] Comment on above: Performed By: #### E RTPF #### [address] [address] Bench Carpenter: Dheeraj Garcia MD O2 Device/Flow/% NOT REPORTED Normal [facility] Comment on above: Performed By: #### E RTPF #### [address] [address] Bench Carpenter: Dheeraj Garcia MD Oxyhemoglobin NOT REPORTED Normal 95.0-98.0 [facility] Comment on above: Performed By: #### E RTPF #### [address] [address] Bench Carpenter: Dheeraj Garcia MD Pco2 Adj'd for Temp. NOT REPORTED Normal 39-55 [facility] Comment on above: Performed By: #### E RTPF #### [address] [address] Bench Carpenter: Dheeraj Garcia MD PEEP/CPAP NOT REPORTED Normal [facility] Comment on above: Performed By: #### E RTPF #### [address] [address] Bench Carpenter: Dheeraj Garcia MD pH Adjst'd for Temp. NOT REPORTED Normal 7.320-7.420 M [facility] Comment on above: Performed By: #### E RTPF #### [address] [address] Bench Carpenter: Dheeraj Garcia MD pO2 Adj'd for Temp. NOT REPORTED Normal 30-50 [facility] Comment on above: Performed By: #### E RTPF #### [address] [address] Bench Carpenter: Dheeraj Garcia MD PSV NOT REPORTED Normal [facility] Comment on above: Performed By: #### E RTPF #### [address] [address] Bench Carpenter: Dheeraj Garcia MD Pt. Position NOT REPORTED Normal [facility] Comment on above: Performed By: #### E RTPF #### [address] [address] Bench Carpenter: Dheeraj Garcia MD Set Rate NOT REPORTED Normal [facility] Comment on above: Performed By: #### E RTPF #### [address] [address] Bench Carpenter: Dheeraj Garcia MD Site Drawn NOT REPORTED Normal [facility] Comment on above: Performed By: #### E RTPF #### [address] [address] Bench Carpenter: Dheeraj Garcia MD Text for Respiratory NOT REPORTED Normal [facility] Comment on above: Performed By: #### E RTPF #### [address] [address] Bench Carpenter: Dheeraj Garcia MD Total Hb NOT REPORTED Normal 12.0-16.0 [facility] Comment on above: Performed By: #### E RTPF #### [facility] [address] [place] [address] Bench Carpenter: Dheeraj Garcia MD Total Rate NOT REPORTED Normal [facility] Comment on above: Performed By: #### E RTPF #### [facility] [address] [place] [address] Bench Carpenter: Dheeraj Garcia MD [place] NOT REPORTED Normal [facility] Comment on above: Performed By: #### E RTPF #### [facility] [address] [place], [place] [id number] Bench Carpenter: Dheeraj Garcia MD Blood Bank BILL FOR SERVICES PERFORMED Normal [facility] Comment on above: Performed By: #### E RTPF #### [facility] [place], [place] [id number] Bench Carpenter: Dheeraj Garcia MD CT CERVICAL SPINE WO [...] Krishna Martell DO 08/30/20 Final result Normal [facility] CT CHEST ABDOMEN PELVIS W CO [...] Brenda Sheldon MD 08/30/20 Final result Normal [facility] CT LUMBAR SPINE TRAUMA RECON STRUCTIONon [...] Krishna Martell DO 08/30/20 Final result Normal [facility] CT THORACIC SPINE TRAUMA REC ONSTRUCTIONon [...] Krishna Martell DO 08/30/20 Final result Normal [facility] CTA HEAD NECK W CONTRASTon 1 CTA [...] Dom Zhong MD 08/30/20 Final result Normal [facility] MRI LIMITED BRAINon 08-31-20 20 MRI [...] Hector Cooper MD 08/31/20 Final result Normal [facility] [place], Mhpn Incoming Radiant Results From [employer] - 08/31/2020 11:56 AM EDT EXAMINATION: MRI [...] chronic microvascular disease without acute intracranial abnormality. [place], [place] Minimal chronic microvascular disease without acute intracranial abnormality. [place] EXAMINATION: MRI OF THE BRAIN WITHOUT [...] The soft tissues demonstrate no acute abnormality. [place] Trauma Profileon 08-31-2020 Erythrocyte distribution width (RBC) [Ratio] 14.1 % Normal 11.8-14.4 [facility] Comment on above: Performed By: #### E RTPF #### [facility]ISON [address] [place] [address] Bench Carpenter: Dheeraj Garcia MD Hematocrit (Bld) [Volume fraction] 38.2 % Normal 36.3-47.1 [facility] Comment on above: Performed By: #### E RTPF #### [facility] [address] [place] [address] Bench Carpenter: Dheeraj Garcia MD Hemoglobin (Bld) [Mass/Vol] 12.3 g/dL Normal 11.9-15.1 [facility] Comment on above: Performed By: #### E RTPF #### [facility] [address] [place] [address] Bench Carpenter: Dheeraj Garcia MD MCH (RBC) [Entitic mass] 28.9 pg Normal 25.2-33.5 [facility] Comment on above: Performed By: #### E RTPF #### [facility] [address] [place] [address] Bench Carpenter: Dheeraj Garcia MD MCHC (RBC) [Mass/Vol] 32.2 g/dL Normal 28.4-34.8 [facility] Comment on above: Performed By: #### E RTPF #### [address] [address] Bench Carpenter: Dheeraj Garcia MD MCV (RBC) [Entitic vol] 89.7 fL Normal 82.6-102.9 [facility] Comment on above: Performed By: #### E RTPF #### [address] [address] Bench Carpenter: Dheeraj Garcia MD NRBC Automated 0.0 per 100 WBC Normal 0.0 [facility] Comment on above: Performed By: #### E RTPF #### [address] [address] Bench Carpenter: Dheeraj Garcia MD Platelet mean volume (Bld) [Entitic vol] 10.6 fL Normal 8.1-13.5 [facility] Comment on above: Performed By: #### E RTPF #### [address] [address] Bench Carpenter: Dheeraj Garcia MD Platelets (Bld) [#/Vol] 268 10*3/uL Normal 138-453 [facility] Comment on above: Performed By: #### E RTPF #### [address] [address] Bench Carpenter: Dheeraj Garcia MD RBC (Bld) [#/Vol] 4.26 10*6/uL Normal 3.95-5.11 [facility] Comment on above: Performed By: #### E RTPF #### [address] [address] Bench Carpenter: Dheeraj Garcia MD WBC (Bld) [#/Vol] 8.7 10*3/uL Normal 3.5-11.3 [facility] Comment on above: Performed By: #### E RTPF #### [address] [address] Bench Carpenter: Dheeraj Garcia MD (cont.) [facility] Comment on above: Result Comment: Aver age GFR for 60-69 years old: 85 mL/min/1.73sq m Chronic Kidney Disease: <60 mL/min/1.73sq m Kidney failure: <15 mL/min/1.73sq m eGFR calculated using average adult body mass. Additional eGFR calculator available at: http://www.[employer]/multiple_crcl_2011.htm Performed By: #### E RTPF #### [place] [address] Bench Carpenter: Dheeraj Garcia MD Anion gap [Moles/Vol] 10 mmol/L Normal 9-17 [facility] Comment on above: Performed By: #### E RTPF #### [place] [address] Bench Carpenter: Dheeraj Garcia MD Chloride [Moles/Vol] 106 mmol/L Normal 98-107 [facility] Comment on above: Performed By: #### E RTPF #### [place] [address] Bench Carpenter: Dheeraj Garcia MD CO2 [Moles/Vol] 23 mmol/L Normal 20-31 [facility] Comment on above: Performed By: #### E RTPF #### [address] [address] Bench Carpenter: Dheeraj Garcia MD Creatinine [Mass/Vol] 0.62 mg/dL Normal 0.50-0.90 [facility] Comment on above: Performed By: #### E RTPF #### [address] [address] Bench Carpenter: Dheeraj Garcia MD Ethanol [Mass/Vol] mg/dL Normal <10 [facility] Comment on above: Performed By: #### E RTPF #### [address] [address] Bench Carpenter: Dheeraj Garcia MD Ethanol percent <0.010 Normal <0.010 [facility] Comment on above: Performed By: #### E RTPF #### [address] [address] Bench Carpenter: Dheeraj Garcia MD GFR, Amer >60 Normal >60 [facility] Comment on above: Performed By: #### E RTPF #### [address] [address] Bench Carpenter: Dheeraj Garcia MD GFR,non Amer >60 Normal >60 [facility] Comment on above: Performed By: #### E RTPF #### [address] [address] Bench Carpenter: Dheeraj Garcia MD Glucose [Mass/Vol] 186 mg/dL High 70-99 [facility] Comment on above: Performed By: #### E RTPF #### [address] [address] Bench Carpenter: Dheeraj Garcia MD Potassium [Moles/Vol] 3.5 mmol/L Low 3.7-5.3 [facility] Comment on above: Performed By: #### E RTPF #### [address] [address] Bench Carpenter: Dheeraj Garcia MD Sodium [Moles/Vol] 139 mmol/L Normal 135-144 [facility] Comment on above: Performed By: #### E RTPF #### [address] [address] Bench Carpenter: Dheeraj Garcia MD Urea nitrogen [Mass/Vol] 11 mg/dL Normal 8-23 [facility] Comment on above: Performed By: #### E RTPF #### [address] [address] Bench Carpenter: Dheeraj Garcia MD aPTT Coag (Bld) [Time] 24.4 s Normal 20.5-30.5 [facility] Comment on above: Result Comment: IV Heparin Therapy Range: 48.6-77.8 Performed By: #### E RTPF #### [address] [address] Bench Carpenter: Dheeraj Garcia MD INR Coag (PPP) [Relative time] 1.0 {INR} Normal [facility] Comment on above: Result Comment: Therapeutic Range: Moderate Anticoagulant Intensity: INR = 2.0-3.0 High Anticoagulant Intensity: INR = 2.5-3.5 Performed By: #### E RTPF #### [address] [address] Bench Carpenter: Dheeraj Garcia MD PT Coag (PPP) [Time] 10.5 s Normal 9.0-12.0 [facility] Comment on above: Performed By: #### E RTPF #### [address] [address] Bench Carpenter: Dheeraj Garcia MD Body Temp. 37.0 Normal [facility] Comment on above: Performed By: #### E RTPF #### [address] [address] Bench Carpenter: Dheeraj Garcia MD Carboxy Hgb 2.2 % Normal 0-5 [facility] Comment on above: Result Comment: Reference Range: Non-Smokers 0-2% Average Smoker 2-4% Heavy Smoker <10% Performed By: #### E RTPF #### [address] [address] Bench Carpenter: Dheeraj Garcia MD FIO2 INFORMATION NOT PROVIDED [facility] Comment on above: Performed By: #### E RTPF #### [address] [address] Bench Carpenter: Dheeraj Garcia MD HCO3 (Bld) [Moles/Vol] 23.6 mmol/L Low 24-30 M [facility] Comment on above: Performed By: #### E RTPF #### [address] [address] Bench Carpenter: Dheeraj Garcia MD Negative Base Excess 0.8 mmol/L Normal 0.0-2.0 [facility] Comment on above: Performed By: #### E RTPF #### [address] [address] Bench Carpenter: Dheeraj Garcia MD Oxygen (Bld) [Partial pressure] 143.0 mm[Hg] High 30-50 [facility] Comment on above: Performed By: #### E RTPF #### [address] [address] Bench Carpenter: Dheeraj Garcia MD Oxygen saturation in Blood 98.6 % High 60.0-85.0 [facility] Comment on above: Performed By: #### E RTPF #### [address] [address] Bench Carpenter: Dheeraj Garcia MD pCO2 40.6 Normal 39-55 [facility] Comment on above: Performed By: #### E RTPF #### [address] [address] Bench Carpenter: Dheeraj Garcia MD pH (Bld) 7.383 [pH] Normal 7.320-7.420 [facility] Comment on above: Performed By: #### E RTPF #### [facility] [address] [place] [address] Bench Carpenter: Dheeraj Garcia MD Blood Bank BILL FOR SERVICES PERFORMED Normal [facility] Comment on above: Performed By: #### E RTPF #### [facility] [address] [place] [address] Bench Carpenter: Dheeraj Garcia MD Hubert Test NOT REPORTED Normal [facility] Comment on above: Performed By: #### E RTPF #### [facility] [address] [place] [address] Bench Carpenter: Dheeraj Garcia MD Methemoglobin NOT REPORTED Normal 0.0-1.5 [facility] Comment on above: Performed By: #### E RTPF #### [facility] [address] [place] [address] Bench Carpenter: Dheeraj Garcia MD Mode NOT REPORTED Normal [facility] Comment on above: Performed By: #### E RTPF #### [facility] [address] [place] [address] Bench Carpenter: Dheeraj Garcia MD Notification Time NOT REPORTED Normal [facility] Comment on above: Performed By: #### E RTPF #### [facility] [address] [place] [address] Bench Carpenter: Dheeraj Garcia MD Notification: NOT REPORTED Normal [facility] Comment on above: Performed By: #### E RTPF #### [facility] [address] [place] [address] Bench Carpenter: Dheeraj Garcia MD O2 Device/Flow/% NOT REPORTED Normal [facility] Comment on above: Performed By: #### E RTPF #### [address] [address] Bench Carpenter: Dheeraj Garcia MD Oxyhemoglobin NOT REPORTED Normal 95.0-98.0 [facility] Comment on above: Performed By: #### E RTPF #### [address] [address] Bench Carpenter: Dheeraj Garcia MD Pco2 Adj'd for Temp. NOT REPORTED Normal 39-55 [facility] Comment on above: Performed By: #### E RTPF #### [address] [address] Bench Carpenter: Dheeraj Garcia MD PEEP/CPAP NOT REPORTED Normal [facility] Comment on above: Performed By: #### E RTPF #### [address] [address] Bench Carpenter: Dheeraj Garcia MD pH Adjst'd for Temp. NOT REPORTED Normal 7.320-7.420 M [facility] Comment on above: Performed By: #### E RTPF #### [address] [address] Bench Carpenter: Dheeraj Garcia MD pO2 Adj'd for Temp. NOT REPORTED Normal 30-50 [facility] Comment on above: Performed By: #### E RTPF #### [address] [address] Bench Carpenter: Dheeraj Garcia MD Positive Base Excess NOT REPORTED Normal 0.0-2.0 [facility] Comment on above: Performed By: #### E RTPF #### [address] [address] Bench Carpenter: Dheeraj Garcia MD PSV NOT REPORTED Normal [facility] Comment on above: Performed By: #### E RTPF #### [facility] [address] [place] [address] Bench Carpenter: Dheeraj Garcia MD Pt. Position NOT REPORTED Normal [facility] Comment on above: Performed By: #### E RTPF #### [address] [address] Bench Carpenter: Dheeraj Garcia MD Set Rate NOT REPORTED Normal [facility] Comment on above: Performed By: #### E RTPF #### [address] [address] Bench Carpenter: Dheeraj Garcia MD Site Drawn NOT REPORTED Normal [facility] Comment on above: Performed By: #### E RTPF #### [address] [address] Bench Carpenter: Dheeraj Garcia MD Staging: NOT REPORTED Normal [facility] Comment on above: Performed By: #### E RTPF #### [address] [address] Bench Carpenter: Dheeraj Garcia MD Text for Respiratory NOT REPORTED Normal [facility] Comment on above: Performed By: #### E RTPF #### [address] [address] Bench Carpenter: Dheeraj Garcia MD Total Hb NOT REPORTED Normal 12.0-16.0 [facility] Comment on above: Performed By: #### E RTPF #### [address] [address] Bench Carpenter: Dheeraj Garcia MD Total Rate NOT REPORTED Normal [facility] Comment on above: Performed By: #### E RTPF #### [address] [address] Bench Carpenter: Dheeraj Garcia MD [place] NOT REPORTED Normal [facility] Comment on above: Performed By: #### E RTPF #### [facility] [address] [place] [phone] Bench Carpenter: Dheeraj Garcia MD Type + Screenon 08-31-2020 Type + Screen Sample Expiration 09/02/2020,2359 Arm Band Number BE [id number] ABO/Rh(D) O POSITIVE Antibody Screen NEGATIVE Normal [facility] Comment on above: Performed By: #### T YS #### [facility] [address] [place] [address] Bench Carpenter: Dheeraj Garcia MD XR SHOULDER LEFT (MIN [...] Delmis Adams MD 08/31/20 Final result Normal [facility] EXAMINATION: TWO XRAY VIEWS OF THE LEFT SHOULDER 08/31/2020 8:25 am COMPARISON: None. HISTORY: ORDERING SYSTEM PROVIDED HISTORY: trauma TECHNOLOGIST PROVIDED HISTORY: trauma Reason for Exam: trauma Acuity: Acute Type of Exam: Initial FINDINGS: The bones and joints are unremarkable without definite fracture, dislocation, abnormal soft tissue calcification or bony destructive lesion [employer] Unremarkable three view left shoulder series [employer] [place], [place]pn Incoming Radiant Results From [employer] - 08/31/2020 8:46 AM EDT EXAMINATION: TWO [...] IMPRESSION: Unremarkable three view left shoulder series [place] CT CERVICAL SPINE WO CONTRAS Ton 08-30-2020 No evidence of an acute fracture or traumatic malalignment involving the cervical spine [place], [place] EXAMINATION: CT OF THE CERVICAL SPINE [...] There is no prevertebral soft tissue swelling. [place], [place] Incoming Radiant Results From [employer] - 08/30/2020 11:01 PM EDT EXAMINATION: CT [...] or traumatic malalignment involving the cervical spine [place] CT CHEST ABDOMEN PELVIS W CO [...] aorta. Bones/Soft Tissues: No acute osseous abnormality. [facility] [place], [place], [place] Incoming Radiant Results From [employer] - 08/30/2020 11:25 PM EDT EXAMINATION: CT [...] could provide further information as clinically indicated. [place], [place] 1. No acute or traumatic intrathoracic abnormality. 2. No acute or traumatic intra-abdominal abnormality. 3. Dilation of the main pulmonary artery, suggestive of pulmonary artery hypertension. 4. Hepatic steatosis. 5. 1.6 cm left upper pole renal lesion is indeterminate, possibly a cyst. Renal protocol CT or MRI could provide further information as clinically indicated. [place] CT LUMBAR SPINE TRAUMA RECON STRUCTIONon [...] the upper pole of the left kidney. [place], [place] Incoming Radiant Results From [employer] - 08/30/2020 11:26 PM EDT EXAMINATION: CT [...] or traumatic malalignment involving the lumbar spine. [facility] [employer] [place] No evidence of an acute fracture or traumatic malalignment involving the lumbar spine. [place] CT THORACIC SPINE TRAUMA REC ONSTRUCTIONon [...] the lung bases. No pneumothorax is noted. [facility] [employer] [place], [place] Incoming Radiant Results From [employer] - 08/30/2020 11:29 PM EDT EXAMINATION: CT [...] or traumatic malalignment involving the thoracic spine [place] No evidence of an acute fracture or traumatic malalignment involving the thoracic spine [place] CTA HEAD NECK W CONTRASTon 1 Unremarkable CTA of the neck. 50% stenosis left intracranial ICA, otherwise unremarkable CTA head. [place] Ellis, Mhpn Incoming Radiant Results From [employer]STYLHUNTs - 08/30/2020 11:48 PM EDT EXAMINATION: CTA [...] left intracranial ICA, otherwise unremarkable CTA head. [place], [place] EXAMINATION: CTA OF THE HEAD AND [...] fluid collection. The durán-white differentiation is maintained. [place], [place] TYPE AND SCREENon 08-30-2020 ABO/Rh Positive [place], [place] Arm Band Number BE [id number] [place], [place] Expiration Date 09/02/2020,235 [place], [place] Trauma Panelon 08-30-2020 Hubert Test NOT REPORTED [place] Anion gap [Moles/Vol] 10 mmol/L 9 - 17 mmol/L [place] aPTT Coag (Bld) [Time] 37.0 s [place] aPTT Coag (Bld) [Time] 24.4 s [place] Comment on above: IV Heparin Therapy Range: 48.6-77.8 Blood Bank Specimen BILL FOR SERVICES PERFORMED [place] Carboxyhemoglobin 2.2 % 0 - 5 % [place], [place] Comment on above: Reference Range: Non-Smokers 0-2% Average Smoker 2-4% Heavy Smoker <10% Chloride [Moles/Vol] 106 mmol/L 98 - 10 7 mmol/L [place] CO2 [Moles/Vol] 23 mmol/L 20 - 31 mmol/L [place] Creatinine [Mass/Vol] 0.62 mg/dL 0.5 - 0.9 mg/dL [place] Erythrocyte distribution width (RBC) [Ratio] 14.1 % 11.8 - 14.4 % [place] Ethanol [Mass/Vol] mg/dL <10 mg/dL [place] Ethanol percent <0.010 <0.010 % [place] FIO2 INFORMATION NOT PROVIDED [place] GFR >60 >60 mL/min [place], [place] GFR Non- >60 >60 mL/min [place] GFR/1.73 sq M predicted among non-blacks MDRD (S/P/Bld) [Vol rate/Area] [place], [place] Comment on above: Average GFR for 60-6 9 years old: 85 mL/min/1.73sq m Chronic Kidney Disease: <60 mL/min/1.73sq m Kidney failure: <15 mL/min/1.73sq m eGFR calculated using average adult body mass. Additional eGFR calculator available at: http://www.[employer]/multiple_crcl_2012.htm GFR/1.73 sq M predicted among non-blacks MDRD (S/P/Bld) [Vol rate/Area] NOT REPORTED [place] Glucose [Mass/Vol] 186 mg/dL High 70 - 99 mg/dL [place] hCG Qual CANCELLED PER ED NEGATIVE [place] HCO3, Venous 23.6 mmol/L Low 24 - 30 mmol/L [place] Hematocrit (Bld) [Volume fraction] 38.2 % 36.3 - 47.1 % [place] Hemoglobin (Bld) [Mass/Vol] 12.3 g/dL 11.9 - 15.1 g/dL [place] INR Coag (PPP) [Relative time] 1.0 {INR} [place] Comment on above: Therapeutic Range: Moderate Anticoagulant Intensity: INR = 2.0-3.0 High Anticoagulant Intensity: INR = 2.5-3.5 Interpretation and review of laboratory results Abnormal [place] MCH (RBC) [Entitic mass] 28.9 pg 25.2 - 33.5 pg [place] MCHC (RBC) [Mass/Vol] 32.2 g/dL 28.4 - 34.8 g/dL [place] MCV (RBC) [Entitic vol] 89.7 fL 82.6 - 102.9 fL [place] Methemoglobin NOT REPORTED 0 - 1.5 % [place] Mode NOT REPORTED [place] Negative Base Excess, Christo 0.8 mmol/L 0 - 2 mmol/L [place] NOTIFICATION NOT REPORTED [place] NOTIFICATION TIME NOT REPORTED [place] O2 Device/Flow/% NOT REPORTED [place] Oxygen saturation in Blood 98.6 % High 60 - 85 % [place] Oxyhemoglobin NOT REPORTED 95 - 98 % [facility] [place] pCO2, Christo 40.6 [place] pCO2, Christo, Temp Adj NOT REPORTED [place], [place] Peep/Cpap NOT REPORTED [place] pH, Christo 7.383 [place], [place] pH, Christo, Temp Adj NOT REPORTED [place] Platelet mean volume (Bld) [Entitic vol] 10.6 fL 8.1 - 13.5 fL [place] Platelets (Bld) [#/Vol] 268 10*3/uL [place] pO2, Christo 143.0 High [place] pO2, Christo, Temp Adj NOT REPORTED [place], [place] Positive Base Excess, Christo NOT REPORTED 0 - 2 mmol/L [place] Potassium [Moles/Vol] 3.5 mmol/L Low 3.7 - 5.3 mmol/L [place] PSV NOT REPORTED [place] PT Coag (PPP) [Time] 10.5 s [place], [place] Pt. Position NOT REPORTED [place] RBC (Bld) [#/Vol] 4.26 10*6/uL 3.95 - 5.1 1 m/uL [place] Sample Site NOT REPORTED [place], [place] Set Rate NOT REPORTED [place] Sodium [Moles/Vol] 139 mmol/L 135 - 144 mmol/L [place], [place] Text for Respiratory NOT REPORTED [place] Total Hb NOT REPORTED 12 - 16 g/dl [place] Total Rate NOT REPORTED [place] Urea nitrogen [Mass/Vol] 11 mg/dL 8 - 23 mg/dL [place] VT NOT REPORTED [place] WBC (Bld) [#/Vol] 0.0 10*3/uL 0.0 per 10 0 WBC [place] WBC (Bld) [#/Vol] 8.7 10*3/uL [facility] 03-24-2019 Protein mass conc HNO ID: [id number] Author: Kamilah Jean) Kyle Service: ? Author Type: Physician Field Talent Qualification Specialist Type: Progress Notes Filed: 03/25/2019 10:38 AM Note Text: [facility] NOTE NAME: SHEMAR AVILA NO.: [id number] DATE OF SERVICE: 03/24/2019 [facility] DATE OF : 1955 CHIEF COMPLAINT: Skilled followup visit for discharge. Also complains of a cyst on her back. SUBJECTIVE FINDINGS: The patient was seen in her room today at [facility]. She is tentatively scheduled for discharge [...] above. MEDICATIONS: Medications were reviewed in the half-way records. OARRS report was run today and [...] DICTATED BY: Kamilah Wright PA-C PG/Niharika JOB# [id number] cc:[facility] Normal [facility] PROGRESSon 03-22-2019 Protein mass conc HNO ID: [id number] Author: Kamilah Wright (Pa) Service: ? Author Type: Physician Field Talent Qualification Specialist Type: Progress Notes Filed: 03/23/2019 11:37 AM Note Text: [facility] NOTE NAME: SHEMAR AVILA NO.: [id number] DATE OF SERVICE: 03/22/2019 [facility] DATE OF : 1955 CHIEF COMPLAINT: Skilled followup visit for stroke; today complaining of heartburn. SUBJECTIVE FINDINGS: The patient was seen in the therapy department at [facility]. She reports that overall she is [...] SYSTEMS: See above. MEDICATIONS: Reviewed in the half-way record. CODE STATUS: Full code. PHYSICAL EXAM: [...] DICTATED BY: Kamilah Wright PA-C PG/Niharika JOB# [id number] cc:Viviana Mota Normal [facility] PROGRESSon 03-19-2019 Protein mass conc HNO ID: [id number] Author: Kamilah Wright (Pa) Service: ? Author Type: Physician Field Talent Qualification Specialist Type: Progress Notes Filed: 03/22/2019 12:17 PM Note Text: [facility] NOTE NAME: SHEMAR AVILA NO.: [id number] DATE OF SERVICE: 03/19/2019 [facility] DATE OF : 1955 CHIEF COMPLAINT: Follow up for stroke and weakness. SUBJECTIVE FINDINGS: The patient was seen in her room at [facility]. She is complaining of a headache [...] SYSTEMS: See above. MEDICATIONS: Reviewed in the half-way record. CODE STATUS: Full code. PHYSICAL EXAM: [...] monitor closely. DICTATED BY: Kamilah Wright PA-C PG/Acusis JOB# [id number] cc:[facility] Normal [facility] PROGRESSon 03-17-2019 Protein mass conc HNO ID: [id number] Author: Kamilah Wright (Pa) Service: ? Author Type: Physician Field Talent Qualification Specialist Type: Progress Notes Filed: 03/18/2019 10:28 AM Note Text: [facility] NOTE NAME: SHEMAR AVILA NO.: [id number] DATE OF SERVICE: 03/17/2019 [facility] DATE OF : 1955 CHIEF COMPLAINT: Follow up for stroke and weakness. SUBJECTIVE FINDINGS: The patient was seen in the therapy department at [facility]. She is doing very well with [...] SYSTEMS: See above. MEDICATIONS: Reviewed in the half-way record. CODE STATUS: Full code. PHYSICAL EXAM: [...] DICTATED BY: Kamilah Wright PA-C PG/Niharika JOB# [id number] cc:[employer] Normal [facility] PROGRESSon 03-15-2019 Protein mass conc HNO ID: [id number] Author: Kyra Butler Service: ? Author Type: Physician Type: Progress Notes Filed: 03/18/2019 5:07 PM Note Text: [facility] NOTE NAME: YEYO AVILA NO.: [id number] DATE OF SERVICE: 03/15/2019 [employer] DATE OF : 1955 New Patient History and Physical HISTORY OF PRESENT ILLNESS: The patient is a 63-year-old female was admitted to us from [facility] in [place] with the diagnoses of complicated headache syndrome [...] was negative. She was then transferred to [facility] where repeat CT scan along with MRI [...] therapy. DICTATED BY: MD NELIDA Larose/Niharika JOB# [id number] cc:Viviana Mota Normal [facility] Vital Signs Date Time Vital Sign Value Performing Clinician Facility 07-13-2023 11:32-0400 Body temperature 97.88 [degF] [facility] 07-13-2023 11:32-0400 Diastolic blood pressure 85 mm[Hg] [facility] 07-13-2023 11:32-0400 Heart rate 76 /min [facility] 07-13-2023 11:32-0400 Respiratory rate 18 /min [facility] 07-13-2023 11:32-0400 SaO2% (BldA) [Mass fraction] 97 % [facility] 07-13-2023 11:32-0400 Systolic blood pressure 147 mm[Hg] [facility] 02-24-2023 13:08-0400 Promise to Return Sunshine GROSSMANICK [facility] 02-24-2023 12:00-0400 Hourly Rounding Ronobir FELICIA [facility] 02-24-2023 12:00-0400 Promise to Return Ronobir FELICIA [facility] 02-24-2023 11:56-0400 Heart rate 62 /min Ronobir FELICIA [facility] 02-24-2023 11:56-0400 SaO2% (BldA) [Mass fraction] 97 % Ronobir FELICIA [facility] 02-24-2023 11:54-0400 Diastolic blood pressure 67 mm[Hg] Ronobir FELICIA [facility] 02-24-2023 11:54-0400 Mean blood pressure 88 mm[Hg] Ronobir FELICIA [facility] 02-24-2023 11:54-0400 Systolic blood pressure 130 mm[Hg] Ronobir FELICIA [facility] 02-24-2023 11:54-0400 Body temperature 97.88 [degF] Ronobir FELICIA [facility] 02-24-2023 11:11-0400 Hourly Rounding Ronobir FELICIA [facility] 02-24-2023 11:11-0400 Promise to Return Ronobir FELICIA [facility] 02-24-2023 11:00-0400 Hourly Rounding Ronobir FELICIA [facility] 02-24-2023 07:50-0400 SaO2% (BldA) [Mass fraction] 98 % Ronobir FELICIA [facility] 02-24-2023 07:43-0400 Heart rate 61 /min Ronobir FELICIA [facility] 02-24-2023 07:43-0400 SaO2% (BldA) [Mass fraction] 98 % Ronobir FELICIA [facility] 02-24-2023 07:41-0400 Body temperature 98.06 [degF] Ronobir FELICIA [facility] 02-24-2023 07:41-0400 Diastolic blood pressure 74 mm[Hg] Ronobir FELICIA [facility] 02-24-2023 07:41-0400 Mean blood pressure 92 mm[Hg] Ronobir FELICIA [facility] 02-24-2023 07:41-0400 Systolic blood pressure 128 mm[Hg] Ronobir FELICIA [facility] 02-24-2023 03:47-0400 Blood Pressure Location Ronobir FELIICA [facility] 02-24-2023 03:47-0400 Body temperature 97.52 [degF] Ronobir FELICIA [facility] 02-24-2023 03:47-0400 Diastolic blood pressure 70 mm[Hg] Ronobir FELICIA [facility] 02-24-2023 03:47-0400 Heart rate 57 /min Ronobir FELICIA [facility] 02-24-2023 03:47-0400 Mean blood pressure 87 mm[Hg] Ronobir FELICIA [facility] 02-24-2023 03:47-0400 Respiratory rate 17 /min Ronobir FELICIA [facility] 02-24-2023 03:47-0400 Systolic blood pressure 120 mm[Hg] Ronobir FELICIA [facility] 02-24-2023 03:06-0400 Mean blood pressure 77 mm[Hg] Ronobir FELICIA [facility] 02-24-2023 03:06-0400 Respiratory rate 16 /min Ronobir FELICIA [facility] 02-24-2023 02:49-0400 Respiratory rate 16 /min Ronobir FELICIA [facility] 02-24-2023 02:04-0400 Body temperature 96.8 [degF] Ronobir FELICIA [facility] 02-24-2023 02:04-0400 Mean blood pressure 68 mm[Hg] Ronobir FELICIA [facility] 02-24-2023 01:09-0400 Body temperature 96.62 [degF] Ronobir FELICIA [facility] 02-24-2023 00:21-0400 Heart rate 58 /min Ronobir FELICIA [facility] 02-24-2023 00:06-0400 gluc 139 mg/dL Ronobir FELICIA [facility] 02-24-2023 00:06-0400 Heart rate 61 /min Ronobir FELICIA [facility] 02-18-2022 13:50-0400 Body height 165.1 cm MD Shaikh Hernandez Work Phone: [facility] 02-18-2022 13:50-0400 Body weight 104.32 kg MD Shaikh Hernandez Work Phone: [facility] 09-01-2020 16:00-0400 BP Diastolic 85 mm[Hg] Dank Rodgers [facility] , [place] 09-01-2020 16:00-0400 BP Systolic 158 mm[Hg] Dank Rodgers [facility] [place] 09-01-2020 14:12-0400 Pulse (Heart Rate) 72 /min Dank Rodgers [facility] 09-01-2020 13:30-0400 Respiratory rate NOT REPORTED Dank Rodgers [facility] 09-01-2020 12:27-0400 Body Temperature 97.7 [degF] Dank Rodgers [facility] , [place] 09-01-2020 12:27-0400 Pulse Oximetry 94 % [facility] [place] 09-01-2020 07:15-0400 Respiratory rate NOT REPORTED [facility] Comment on above: Performed By: #### ERTPF #### [facility] [address] [place], [place] [id number] Bench Carpenter: Dheeraj Garcia MD 09-01-2020 04:45-0400 Respiratory Rate 15 /min Dank Rodgers [facility] 08-31-2020 18:45-0400 BMI (Body Mass Index) 38.72 kg/m2 Dank Rodgers [facility] 08-31-2020 18:45-0400 Body weight 105.55 kg Dank Rodgers [facility] , [place] 08-31-2020 18:45-0400 Height 165.1 cm Dank Rodgers [place] 08-31-2020 00:34-0400 Respiratory rate NOT REPORTED [facility] Comment on above: Performed By: #### ERTPF #### [facility] [address] [place], [place] [id number] Bench Carpenter: Dheeraj Garcia MD 08-30-2020 23:08-0400 Respiratory rate NOT REPORTED Dank Rodgers [facility] , [place] Encounters Encounter Date Encounter Type Care Provider Facility Start: 12-30-2023 End: 12-31-2023 ambulatory Arturo DOLAN Facility:[facility] Start: 12-30-2023 End: 12-30-2023 Patient encounter procedure Arturo DOLAN [facility] Start: 12-18-2023 End: 12-19-2023 ambulatory Arturo DOLAN Facility:[id number] Start: 11-13-2023 End: 11-14-2023 ambulatory Arturo DOLAN Facility:CD:[id number] Start: 11-12-2023 End: 11-13-2023 ambulatory Arturo DOLAN Facility:[facility] [place] Start: 07-13-2023 End: 07-13-2023 Emergency department patient visit Zaki Steen Toni Facility:[facility] Start: 07-13-2023 End: 07-13-2023 Emergency department patient visit Zaki Steen Toni [facility] Start: 07-08-2023 End: 07-08-2023 ambulatory ALEXIA CLINE [facility] Start: 04-25-2023 End: 04-25-2023 ambulatory [facility] Start: 04-15-2023 End: 04-15-[address] ROBIN PONCE . Facility: Start: 04-01-2023 End: 04-01-[address] DANK JOHNSON Facility:[facility] Start: 04-01-2023 End: 04-02-[address] DOCTOR CASTELLON Facility:[facility] Start: 03-24-2023 End: 03-25-[address] DOCTOR CASTELLON Facility:[facility] Start: 03-10-2023 End: 03-10-2023 ambulatory [facility] Start: 02-24-2023 End: 02-24-2023 ambulatory Leann GUNTER Facility:[facility] Start: 02-24-2023 End: 02-24-2023 Observation Sunshine DUARTE [facility] Start: 02-14-2023 End: 02-14-[address] ROBIN PONCE . Facility:[facility] Start: 10-05-2022 End: 10-05-[address] ZELALEM STACY Facility: Start: 09-23-2022 ambulatory SHAIKH Enio HERNANDEZ Facilit y:[facility] Start: 02-18-2022 End: 02-18-2022 Patient encounter procedure MD Shaikh Hernandez Work Phone: [facility] [place] Start: 03-21-2021 End: 03-22-2021 ambulatory REBEKA Sean MCADAMSGENIEKarissa Facility:[facility] Start: 08-31-2020 End: 09-01-2020 Evaluation and management of inpatient HERMELINDO ADKINS [facility] Start: 08-30-2020 End: 09-01-2020 Evaluation and management of inpatient Dank Fields [facility]o/Med Surg Comment on above: Injury of head, init ial encounter (Primary Dx) Procedures Date Procedure Procedure Detail Performing Clinician Start: 02-18-2022 MRI of abdomen with contrast MD Shaikh Hernandez Work Phone: Start: 09-01-2020 DISCHARGE PATIENT HERMELINDO ADKINS Start: 09-01-2020 IP CONSULT TO HOME CARE NEEDS HERMELINDO ADKINS Start: 09-01-2020 PT EVAL AND TREAT HERMELINDO [...] ADKINS Start: 09-01-2020 Comprehensive metabolic panel HERMELINDO ADKINS Start: 09-01-2020 Gonadotropin chorionic qualitative HERMELINDO ADKINS Start: 09-01-2020 Hemoglobin glycosylated a1c HERMELINDO ADKINS Start: 09-01-2020 Lipid panel HERMELINDO ADKINS Start: 09-01-2020 Cell enumeration immune selectj & id fluid spec HERMELINDO ADKINS Start: 09-01-2020 Assay of ethanol Hermelindo Adkins Work Phone: Start: 09-01-2020 BASIC METABOLIC PANEL W/ REFLEX TO MG FOR LOW K Hermelindo Adkins Work Phone: Start: 09-01-2020 Blood count complete auto&auto difrntl wbc Hermelindo Adkins Work Phone: Start: 09-01-2020 Gonadotropin chorionic qualitative Hermelindo Adkins Work Phone: Start: 09-01-2020 Hemoglobin glycosylated a1c Hermelindo Adkins Work Phone: Start: 09-01-2020 Lipid panel Hermelindo Adkins Work Phone: Start: 09-01-2020 TRAUMA PANEL Hermelindo Adkins Work Phone: Start: 08-31-2020 CATHETER REMOVAL HERMELINDO ADKINS Start: 08-31-2020 ADVANCE DIET TOLERATED (NURSING COMMUNICATION) HERMELINDO ADKINS Start: 08-31-2020 DIET CARB CONTROL HERMELINDO ADKINS Start: 08-31-2020 OT EVAL AND TREAT HERMELINDO ADKINS Start: 08-31-2020 PLACE INTERMITTENT PNEUMATIC COMPRESSION DEVICE HERMELINDO ADKINS Start: 08-31-2020 TELEMETRY MONITORING HERMELINDO ADKINS [...] HERMELINDO ADKINS Start: 08-31-2020 NURSING COMMUNICATION HERMELINDO ADKISN Start: 08-31-2020 FULL CODE HERMELINDO ADKINS Start: [...] REASON FOR NO CHEMICAL VTE PROPHYLAXIS HERMELINDO LUCILLE Start: 08-31-2020 SPEECH ASSISTANT EVAL AND TREAT HERMELINDO LUCILLE Start: 08-31-2020 TOBACCO CESSATION EDUCATION HERMELINDO LUCILLE Start: 08-31-2020 VITAL SIGNS HERMELINDO LUCILLE Start: 08-31-2020 VITAL SIGNS - NOTIFY MD HERMELINDO LUCILLE Start: 08-31-2020 PATIENT STATUS (FROM ED OR OR/PROCEDURAL) HERMELINDO ADKINS Start: 08-31-2020 IP CONSULT TO NEUROLOGY HERMELINDO LUCILLE Start: 08-31-2020 Ct angiography head w/contrast/noncontrast HERMELINDO LUCILLE Start: 08-31-2020 Ct lumbar spine w/o contrast material HERMELINDO LUCILLE Start: 08-31-2020 Ct thoracic spine w/o contrast material HERMELINDO LUCILLE Start: 08-31-2020 Ct thorax w/contrast material HERMELINDO LUCILLE Start: 08-31-2020 Ct cervical spine w/o contrast material HERMELINDO LUCILLE Start: 08-31-2020 TYPE AND SCREEN HERMELINDO LUCILLE Start: 08-31-2020 Cell enumeration immune selectj & id fluid spec HERMELINDO LUCILLE Start: 08-30-2020 Antibody screen Dank Manju Start: 08-30-2020 Ct angiography neck w/contrast/noncontrast Moisés A Tyda Start: 08-30-2020 CT LUMBAR SPINE TRAUMA RECONSTRUCTION Elyssafregori B [place] Work Phone: Start: 08-30-2020 CT THORACIC SPINE TRAUMA RECONSTRUCTION Pati B [place] Work Phone: Start: 08-30-2020 Ct thorax w/contrast [...] Start: 09-01-2021 Creatinine measurement Creatinine mo [place]itoring [place], [place] Start: 09-01-2021 HbA1c (Bld) [Mass fraction] A1C test (Diabetic or Prediabetic) [place], [place] Start: 09-01-2021 Lipid panel Lipid screen [place] Start: 09-01-2021 Potassium monitoring Potassium monit [place]ing [place] Start: 08-31-2020 Annual Wellness Visi t (AWV) Annual Wellness Visit (AWV) [place] Start: 07-18-2020 Influenza vaccination Flu vaccine (# 1) [place], [place] Start: 2007 Screening for malign ant neoplasm of breast Breast cancer screen [place], [place] Start: 2007 Screening for malign ant neoplasm of colon Colon cancer screen colonoscopy [place] Start: 2007 Shingles Vaccine (1 of 2) Shingles V accine (1 of 2) [place] Start: 1978 Screening for malign ant neoplasm of cervix Cervical cancer screen [place] Start: 1976 DTaP/Tdap/Td vaccine (1 - Tdap) DTaP/Tdap/Td vaccine (1 - Tdap) [place] Start: 1975 Diabetic microalbumi betzy test Diabetic microalbuminuria test [place], [place] Start: 1972 HIV screening HIV screen [place], [place] Start: 1967 Diabetic foot examination Diabetic f [place]ot exam [place] Start: 1967 Diabetic retinal exam Diabetic retin al exam [place] Start: 1957 Hepatitis C screening Hepatitis C sc reen [place] Oxygen therapy [[facility] [place]] Initiate Oxygen Therapy Protocol Respiratory Care Routine Daily until discontinued starting 08/31/2020 [place] Comment on above: Daily until disconti nued starting 08/31/2020 End: 08-31-2020 Speech and language therapy regime [facility] Comment on above: One Time for 1 Occur rences starting 08/31/2020 until 08/31/2020 Immunizations Immunization Date Immunization Notes Care Provider Ronny pathak 08-17-2021 influenza virus vaccine, unspecified formulation Ronobir FELICIA [facility] 02-15-2021 SARS-CoV-2 (COVID-19 ) Ad26 vaccine, recombinant Ronobir FELICIA [facility] 01-15-2021 SARS-CoV-2 (COVID-19 ) Ad26 vaccine, recombinant Ronobir FELICIA [facility] 09-19-2017 pneumococcal conjuga te vaccine, 13 valent Arturo DOLAN [facility] [place] Payers Date Payer Category Payer Medicare [id number] [id number] 1957 Self-pay [id number] 1955 Unknown [id number] 2.16.8 [id number] 1955 Unknown [id number] 2.16.8 [id number] 1955 Unknown [id number] 2.16.84 [id number] 1955 Unknown [id number] 2.16.84 [id number] 1955 Unknown [id number] 2.16.84 [id number] 1955 Unknown [id number] 2.16.84 [id number] 1955 Unknown [id number] 2.16.84 [id number] 1955 Unknown [id number] 2.16.84 [id number] 1955 Unknown [id number] 2.16.84 [id number] 1957 Unknown [id number] 2.16.8 [id number] 1955 Unknown [id number] 2.16.8 [id number] 1957 Unknown [id number] 2.16.8 [id number] 1957 Unknown [id number] 2.16.8 [id number] 1955 Unknown [id number] 2.16.8 [id number] 1955 Unknown [id number] 2.16.8 [id number] Self-pay Self Pay [id number] Social History Date Type Detail Facility Tobacco smoking stat [facility] Unknown if ever smoked [place] Sex Assigned At Not on file [place] Start: 03-19-2021 [facility] Start: 1955 Sex Assigned At Female [facility] Start: 02-24-2023 End: 11-12-2023 Tobacco smoking status Heavy tobacco smoker (finding) [facility] Comment on above: 1 pack a day Sex Assigned At Female [facility] Tobacco smoking status Never [facility] Comment on above: 1 pack a day Functional Status Date Assessment Result Facility 12-30-2023 Functional Status N/A [facility] 07-13-2023 Functional Status N/A [facility] 02-24-2023 Functional Status No [facility] 02-24-2023 Functional Status [facility] Clinical Notes 02-24-2023 to 12-30-2023 Note Date & Type Note Facility 12-30-2023 Note [id number] [facility] 12-30-2023 Hospital Discharg e instructions Patient Education 12/30/2023 11:56:19 EU - Cystoscopy with Stent Removal Discharge Instructions (CUSTOM) Cystoscopy with Stent Removal Voiding after the procedure: there may be some pain, burning, urgency, frequency and blood tinged urine following the procedure. These symptoms usually resolve within 2-5 days. Drink the amount of fluid it takes to keep the urine pink to yellow or clear in color. Drinking enough water and fluids will help to ease any discomfort after your procedure. If you are having problems that seem out of the ordinary, please call. If unable to contact your physician and you feel it is an emergency, go to the nearest emergency room or call 911 Diet you may resume your normal diet. Activity you may resume your normal activities Call if you have a fever over 100 degrees. Follow Up Care 12/23/2023 13:40:22 With:Arturo DOLAN Address: [facility] [address] [place] [address]- Business (1) When:03/29/2024 11:56:00 Comments:With a stone metabolic workup [facility] 12-03-2023 Note RCRI=3 points Class IV Risk 15.0 % 30-day risk of , AL, or cardiac arrest PMH- CAD s/p Stent, [...] you Alexia Cline NP Division of Cardiology, [facility]- [phone] Pager- [phone] Email- [email or web address] 07-13-2023 Hospital Discharg e instructions Patient [...] to strengthen the arm. General instructions Take auti-nux-ssekbed and prescription medicines only as told by [...] provider. Document Revised: 07/19/2022 Document Reviewed: 07/19/2022 [employer] Patient Education 2022 [employer]. 07/13/2023 12:19:06 Muscle Strain Muscle Strain A [...] is not too tight. General instructions Take vuhq-rpq-corpetn and prescription medicines only as told by [...] provider. Document Revised: 01/21/2022 Document Reviewed: 01/21/2022 [employer] Patient Education 2022 [employer]. Follow Up Care 07/13/2023 11:23:52 With:Robin Ponce Address: [address] [place] [id number] Business (1) When:07/16/2023 12:02:34 [facility] 07-13-2023 Evaluation + Plan note Extrac sherita from: Title:ED Note Author:Rubén STAFFORD, Mathew Sadler te:07/13/23 Shoulder pain (M25.519: Pain in unspecified shoulder) Ordered: acetaminophen-oxycodone, 1 tab(s), Oral, q6hr as needed for pain for 3 day(s), 15 tab(s), Refill(s) 0, [id number], 165, cm, 07/13/23 11:34:00 EDT, Height/Length Dosing, 95.5, kg, 07/13/23 11:34:00 EDT, Weight Dosing [facility]08-22-2023 NoteWill increase imdur to 60 mg and d/w pt that if migraines worsen she can reduce back to 30 mg [facility] Recommended [place] [facility] NoteCoronary artery disease is stable Continue GDMT- Coreg, simvastatin, imdur continue risk factor modifications- heart healthy diet, regular exercise as tolerated and continue all medications.[facility] 07-08-2023 NoteNYHC II- currently LVEF normal 60%- recovered Mild MR and TV regurg Normal rt sided pressure Continue current med regime. Coreg, irbesartan, simvastatin, [facility]urUniversity [facility] 07-08-2023 NoteHypertension is well controlled, Continue all current [facility]sUniversity [facility]-2023 NoteUTP CARDIOLOGY PROGRESS NOTE HPI: Yeyo Avila [...] States pain in groin Cat/Feline Products Hives [place] Hives Topiramate Hives and Other Blue Dye [...] mononitrate ER (I (more content not included)... [facility]06-09-2023 NotePatient here for follow up Holter monitor and stress test. Also had labs a few weeks ago. Review of Systems Cardiovascular: Positive for chest pain, dyspnea on exertion and near-syncope (with bending over). Neurological: Positive for dizziness and light-headedness. All other systems reviewed and are negative.[facility] 04-25-2023 NoteCardiology Clinic Note Subjective Yeyo Avila [...] States pain in groin Cat/Feline Products Hives [place] Hives Topiramate Hives and Other Blue Dye [...] mg sublingual tablet, Dis (more content not included)...[facility] 03-10-2023 NoteCardiology Clinic Note Subjective Yeyo Avila [...] disease, unspecified (CMS/HCC) Chronic systolic heart failure ([facility]/HCC) Complicated migraine Migraine, unspecified, not intractable, with status migrainosus Diabetes mellitus due to underlying condition without complications ([facility]/HCC) Coronary atherosclerosis Diabetes ([facility]/HCC) Difficulty in walking, not elsewhere classified Disorder of urinary tract Dyspnea Zaina hematuria Hemiplegia and hemiparesis following cerebral infarction affecting left non-dominant side ([facility]) Head injury GERD (gastroesophageal reflux disease) NEGRITA (generalized anxiety disorder) Anxiety disorder, unspecified Hypertensive urgency Hyperlipidemia, unspecified History of stroke Hemiplegic migraine Major depressive disorder, recurrent, unspecified ([facility]/HCC) MDD (major depressive disorder), recurrent episode, moderate ([facility]/HCC) Muscle weakness (generalized) Obesity, unspecified Primary malignant neoplasm of bladder ([facility]) Palpitations Old myocardial infarction Severe episode of recurrent major depressive disorder, without psychotic features ([facility]) Stroke-like symptoms Status post percutaneous transluminal coronary [...] States pain in groin Cat/Feline Products Hives [place] Hives Topiramate Hives and Other Blue Dye [...] systolic function. No significant (more content not included)...[facility] 02-24-2023 NoteSelect [facility]ty Hospital - [facility]boroer Holy Cross HospitalComment on above:Result Comment: Electronically Signed By: PERLA PRADO, Leann\.br\Date and Time Signed: 02/24/23 12:35 [id number] Evaluation + Plan noteExtracted from: Title:Discharge Note Author:Leann GUNTER MD D ate:02/24/23 Discharge To, Anticipated II - Home [...] BID, PRN With When Contact Information Robin Kris [address] [place] [phone]- [employer] (1) Additional Instructions: Office is closed for lunch between Noon and 1 p.m. Please contact office for follow up appointment. Thank you! SHAIKH MARY Within 5 to [address] [place] [address] [employer] (1) Additional Instructions: Not a patient. Syncope, Xvuc-vo-Mkgm Extracted from: Title:APSO Note Author:Leann GUNTER MD Date: 67-year-old obese female with history of [...] heart monitor. Check orthostatic vital signs. Ordered: [facility] Care/Day Moderate 35 Minutes 84809 2. RAMA (acute kidney injury) (N17.9: Acute kidney failure, unspecified) Acute kidney injury secondary to ATN from dehydration and antihypertensives. Resolved. Treated with IV fluid. Ordered: [facility] Care/Day Moderate 35 Minutes 46563 3. Hypokalemia (E87.6: Hypokalemia) Secondary to poor oral intake. Potassium level improving to 3.4. We will give patient additional potassium chloride. Ordered: potassium chloride, 40 mEq = 2 tab(s), Tab-ER, Oral, Once, Stop date 02/24/23 10:00:00 EDT, Routine, Start date 02/24/23 10:00:00 EDT, 02/24/23 9:46:00 EDT [facility] Care/Day Moderate 35 Minutes 82602 4. Diabetes mellitus (E11.9: Type 2 diabetes mellitus without complications) Continue sliding scale insulin. Ordered: [facility] Care/Day Moderate 35 Minutes 47099 5. High cholesterol (E78.00: Pure hypercholesterolemia, unspecified) On Lipitor at home. Ordered: [facility] Care/Day Moderate 35 Minutes 72409 6. Hypertension (I10: Essential (primary) hypertension) Blood pressure on the low side of normal. 7. CAD (coronary artery disease) (I25.10: Atherosclerotic heart disease of [place] coronary artery without angina pectoris) Continue on aspirin, Plavix. 8. Aortic aneurysm (I71.9: Aortic aneurysm of unspecified site, without rupture) Status post surgery. 9. Obese (E66.9: Obesity, unspecified) Recommend therapeutic lifestyle modification changes. 10. On deep vein thrombosis (DVT) prophylaxis (Z79.899: Other terminal operator (current) drug therapy) Heparin. Disposition: Home soon pending physical therapy evaluation. I discussed the diagnosis and plan of care with the patient at the bedside. Moderate level of MDM based on addressing above issues. This documentation was transcribed using voice recognition software. Several attempts were made to ensure accuracy. However inadvertent computerized director outpatient services errors may be present. Leann Gunter. Hospitalist. [...] deep vein thrombosis (DVT) prophylaxis (Z79.899: Other correction (current) drug therapy) SCD, heparin Orders: acetaminophen, [...] be observation status. Extracted from: Title:ED Note Author:Timoteo PRADO, Jordy Date: 1. Syncopal episodes (R55: S yncope [...] XR Spine Lumbosacral 2 or 3 Views [facility]04-10-2023 Hospital Discharge instructions Patient Education 02/24/2023 11:49:54 Syncope, Zkmm-np-Yjyy Syncope Syncope is when you pass out [...] pee (urine) pale yellow. General instructions Take tvhh-ner-nkugptg and prescription medicines only as told by [...] 04/21/2009 Document Revised: 12/16/2018 Document Reviewed: 12/16/2018 Global Weather Patient Education 2020 [employer] Follow Up Care 02/24/2023 00:01:37 With:Robin Ponce Address: [address] [place] [address]- Business (1) When: Unknown Comments:Office is closed for lunch between Noon and 1 p.m. Please contact office for follow up appointment.Thank you! With:SHAIKH MARY Address: [address] [place] [address] Business (1) When:5 to 7 days Comments:Not a patient. [facility]04-10-2023 NoteFisher Holy Cross HospitalComment on above:Result Comment: Electronically Signed By: Sunshine DUARTE DO\.br\Date and Time Signed: 02/24/23 03:41 EDTEvaluation noteNo assessment information availableSelect Medical Specialty [facility] Work Phone: Hospital course Narrative No data available for this section [facility] No data available for this section [facility] Summary Purpose Family History No Family History Records FoundNo Family History Records FoundNo Family History Records FoundNo Family History Records FoundNo Family History Records FoundNo Family History Records Found No data available for this section No Family History Records Found Advance Directives No [...] Assisted Dressing Independent Toileting Assisted Feeding Independent Services Advisor Independent Med Delivery whole Wound Care Documentation [...] 9 Discharging to Facility/ Agency Name[facility]X [address] [address] [facility] [address] Address: Phone: Fax: Dialysis Facility (if applicable) Name: Address: Dialysis Schedule: Phone: Fax: Sorting Cows Worker/Remote Control Assembler signature: EDT PHYSICIAN SECTION Prognosis: Good Condition at Discharge: Stable Rehab Potential (if transferring to Rehab): {Prognosis:[id number]} Recommended Labs or Other Treatments After Discharge: [...] called to the trauma nurse line at [phone] and please leave a message. Trauma is a life-threatening condition. Your doctor will want to closely monitor you. Be sure to goto all of your appointments. * Attachments The following attachments cannot be sent through Care Everywhere. * Fall Prevention (Albanian) * Falls: Get Up Safely Instruction (Albanian) * Vasovagal Syncope (Albanian) documented in this encounter History of Present Illness * Debi Marques OT - 09/01/2020 2:46 PM EDT Occupational [...] 4 wheeled walker, Cane, Quad cane, Crutches, Water Fabricator Operator, Sock aid(pt reported no use of DME at baseline) ADL Assistance: Independent Homemaking Assistance: Independent Homemaking Responsibilities: Yes Meal Prep Responsibility: Primary Laundry Responsibility: Primary Cleaning Responsibility: Primary Ambulation Assistance: Independent Transfer Assistance: Independent Active Exhibit Artist: Yes Mode of Transportation: Car Occupation: Retired [...] feeling like L LE was going to [facility] functional mobility. pt with no [...] L LE. pt unable to identify when scientific writer was touching L UE (on elbow [...] Plan Times per week: 3-5x/wk AM-PAC Score [facility] Inpatient Daily Activity Raw Score: 16 (09/01/201440) [facility] Inpatient ADL T-Scale Score : 35.96 (09/01/201440) ADL Inpatient CMS 0-100% Score: 53.32 (09/01/201440) ADL Inpatient [facility] G-Code Modifier : CK (09/01/201440) Goals Short [...] activity in order to increase coordination and completion manager strength to L hand Short term goal 6: dem SBA during functional transfers/functional mobility with LRD, as needed Therapy Time Individual Concurrent Group Co-treatment Time In 1316 Time Out 1404 Minutes 48 Variance: 40 Debi Marques OTR/L * Taya Bergeron, SPEECH ASSISTANT - 09/01/2020 11:39 AM EDT Speech Language Pathology Facility/Department: [address] ORTHO/MED SURG Initial Speech/Language/Cognitive Assessment NAME: [...] the bathtub. +LOC, on Plavix. Taken to [place] where a stroke alert was initiated. CT head at 6pm today at [place] did not show intracranial bleed. Transferred to [place] for trauma and neurology work-up. Upon arrival, Pt without neurological deficit, GCS 15, c/o REYNA. Pt deemed hemodynamically stable and was sent to CT. Pain: Pain Assessment Pain Assessment: Faces Pain Level: 0 Assessment: Pt presents with mild-moderate cognitive deficits characterized by difficulty with immediate and short-term memory, verbal reasoning skills, and word associations. Pt. [place], which may haveaffected results of evaluation. Multiple repetitions provided throughout evaluation. Pt. Presents with no dysarthria, no O/M deficits at this time. ST to follow up and provide treatment to address noted deficits. Education provided. Recommendations: Requires SPEECH ASSISTANT Intervention: Yes Duration/Frequency of Treatment: 3-5X/week D/C [...] 1126 Minutes 12 Completed by: Debi Andrade Light Technician Clinician Cosigned By: Taya Bergeron M.A.CCC/SPEECH ASSISTANT 09/01/2020 11:40 AM * Caleb Jefferson MD [...] 268 DUPLICATE ORDER 251 BMP: Recent Labs 08/30/20223309/01/20 0515 09/01/20 0529 NA 139 DUPLICATE ORDER 140 K 3.5* DUPLICATE ORDER 4.0 CL 106 DUPLICATE ORDER 106 CO2 23 DUPLICATE ORDER 21 BUN 11 DUPLICATE ORDER 10 CREATININE 0.62 DUPLICATE ORDER 0.53 GLUCOSE 186* DUPLICATE ORDER 169* COAGS: Recent Labs 08/30/20223309/01/20 0515 APTT 24.4 PENDING INR 1.0 PENDING [...] MD 09/01/2020 4:00 PM * Nader Petit, COUNSELING SPECIALIST - 09/01/2020 10:02 AM EDT Physical Therapy Facility/Department: [address] ORTHO/MED SURG Daily Treatment Note NAME: [...] Safe use of RW Barriers to Learning: [place] REQUIRES PT FOLLOW UP: Yes Activity Tolerance [...] 44 Timed Code Treatment Minutes: 40 Minutes COUNSELING SPECIALIST returned to pt's room to have her attempt stair management, to return home safely Individual Individual Time In 1140 Time Out 1205 Minutes 25 Timed Code Treatment Minutes: 9 Minutes (a doctor interrupted PT, to assess the pt) Nader Petit, COUNSELING SPECIALIST * Debi Marques OT - 09/01/2020 8:34 AM EDT Occupational Therapy Not Seen Note DATE: 09/01/2020 Name: Yeyo Avila : 1955 Patient not available for Occupational Therapy due to: Testing echo Next Scheduled Treatment: check back later as able or 09/02/2020 * Pérez Gotti - 09/01/2020 8:05 AM EDT Echo done in echo lab. * Molly Lyons, PILAR - 09/01/2020 1:00 AM EDT Patient's BP is 186/76. HR 89. Notified Dr. Madison via [employer]. Will continue to monitor. * Kiara Luna, BERE - 08/31/2020 3:09 PM EDT Physical Therapy Facility/Department: [facility] ED Initial Assessment NAME: Yeyo [...] new B blurred vision) Hearing: Exceptions to WF Hearing Exceptions: (Hearing assessed: Diminished hearing in [...] Ambulation Assistance: Independent Transfer Assistance: Independent Active Exhibit Artist: Yes Mode of Transportation: Car Occupation: Retired [...] section and content) DATE CREATED AUTHOR 04/06/2019 [facility] DATE CREATED AUTHOR AUTHOR'S ORGANIZ ATION 09/12/2020 [facility] DATE CREATED AUTHOR AUTHOR'S ORGANIZ ATION 03/28/2021 [facility] DATE CREATED AUTHOR AUTHOR'S ORGANIZ ATION 03/03/2022 [facility] DATE CREATED AUTHOR AUTHOR'S ORGANIZ ATION 04/25/2023 [facility] DATE CREATED AUTHOR AUTHOR'S ORGANIZ ATION 12/04/2023 [facility] DATE CREATED AUTHOR AUTHOR'S ORGANIZ ATION [facility]/13/2024 [facility] Reason for Visit (unrecogniz ed section and content) Reason Comments Fall Trauma Status Reason Specialty Diagnoses / Procedures Referre d By Contact Referred To Contact Diagnoses Syncope and collapse Procedures Syncope and collapse Hermelindo Adkins MD [address] [place] [address] [facility] Care Teams (unrecognized sec tion and content) [...] BE BASED ON THE PRIMARY CLINICAL RECORDS. [employer] [facility]. provides no warranty or guarantee of the accuracy or completeness of information in this document.
--- OUTSIDE RECORDS SUMMARY | 2024-01-23 08:59 | XMS_ITS | CCD ---
Author Name Unknown Address [address] [place] [address] Organization [facility] Care Team Providers Care Research Chef Name Role Phone Robin Ponce Primary Care [...] Unavailable SHAIKH Enio HERNANDEZ Primary [facility] Admitting Unavailable MISC, DOCTOR Attending [...] Inhibitors (1 source) Lisinopril Drug Allergy [facility] Repository Anti-Epileptic Agents (1 source) topiramate Drug Allergy 011 [facility] Repository Berries (1 source) Ozark Food Allergy [facility] Repository Cats (1 source) Cat Animal Allergy (Dander) [facility] Repository Dextroamphetamine (1 source) Dextroamphetamine Drug Allergy 011 [facility] Repository Iodine (and Iodine containting drugs) (1 source) Iodine (And Iodine Containting Drugs) Drug Allergy [facility] Repository Unclassified (2 sources) BLUE DYE; Translations: [BLUE DYE] Drug allergy (disorder) [facility] Repository (7 sources) Aspirin; Translations: [Aspirin] Drug Allergy 016 [facility] Comment on above: uncoded aspirin (5 sources) atorvastatin; Translations: [atorvastatin] Drug Allergy Unknown Reaction [facility] (8 sources) Lisinopril; Translations: [Lisinopril] Drug Allergy Swelling of Lip/Tongue/Th roat, morphine [facility] (2 sources) Morphine; Translations: [morphine] Drug Allergy [facility] (4 sources) strawberry allergenic extract; Translations: [Ozark] Drug Allergy [facility] (5 sources) topiramate; Translations: [topiramate] Drug Allergy Urticaria (disorder) [facility] (1 source) cat dander Allergy to substance [facility] (2 sources) Iodinated Contrast Media; Translations: [IODINATED CONTRAST MEDIA] Allergy to substance [facility] (4 sources) Contrast media; Translations: [Contrast Dye] Drug allergy Urticaria (disorder) [facility] (4 sources) Ozark; Translations: [Strawberries] Drug allergy Urticaria (disorder) [facility] (4 sources) SUMAtriptan; Translations: [sumatriptan] Drug Allergy [facility] (1 source) Acetaminophen / Aspirin / Caffeine Drug Allergy [facility] Repository (2 sources) Dextroamphetamine; Translations: [Lipitor] Drug Allergy [facility] Repository (2 sources) Iodine (And Iodine Containting Drugs) Drug allergy (disorder) [facility] Repository (1 source) Ketorolac Drug Allergy [facility] Repository (1 source) Plasmin Drug Allergy [facility] Repository (3 sources) topiramate; Translations: [Topamax] Drug Allergy [facility] Repository (2 sources) Dhe Drug allergy (disorder) [facility] Repository (2 sources) Cat/Feline Product Derivatives Drug allergy (disorder) [facility] Repository (1 source) Iodine; Translations: [IODINE] Drug Allergy [facility] Repository (1 source) CAT/FELINE PRODUCTS; Translations: [CAT/FELINE PRODUCTS] Propensity to adverse reactions to drug (disorder) [facility] Repository Medications Current Medications Medication Drug [...] by mouth every six hours as needed vpugcipely-cnujaiuoskgwj-yspjhsgv (DAISY CET, ESGIC) 50-325-40 MG per tablet [...] for 3 day(s), 15 tab(s), Refill(s) 0, [facility]/pharmacy #[id number], 165, cm, 07/13/23 11:34:00 EDT, Height/Length [...] Start: 08-22-2020 take 1 capsule by mo [facility] once daily DULoxetine (CYMBALTA) 60 MG extended [...] administer the echo contrast. polyethylene glycol 3350 77680 mg powder for oral solution (1 source) [...] Coronary arteriosclerosis; Translations: [Atherosclerotic heart disease of [place] coronary artery without angina pectoris] Onset: 02-24-2023 [...] current use of drug therapy; Translations: [Other ad terminal makeup operator (current) drug therapy] Onset: 02-24-2023 Episodic Other aftercare (1 source) FPC (current) use of insulin; Translations: [MORTGAGE CLERK CURRENT USE OF INSULIN] Onset: 04-16-2023 Episodic Other aftercare (1 source) Other assisted (current) drug therapy; Translations: [OTH SENIOR CARE CURRENT DRUG THERAPY] Onset: 04-16-2023 Episodic Other [...] 03-10-2023 03-20-2021 Episodic Other aftercare (1 source) ad terminal makeup operator (current) use of antithrombotics/anti platelets; Translations: [MORTGAGE CLERK ANTITHROMBOT/ANTIPLA TLETS] Onset: 2022 Episodic Other aftercare (1 source) FPC (current) use of aspirin; Translations: [SENIOR CARE CURRENT USE OF ASPIRIN] Onset: 2022 Episodic Other aftercare (1 source) ad terminal makeup operator (current) use of oral hypoglycemic drugs; Translations: [MORTGAGE CLERK USE ORAL HYPOGLYCEMIC DX] Onset: 2022 Episodic [...] Range Facility Lab Reportson 01-06-2024 Lab Reports [id number] #1.00TIFF Normal [facility] Lab Reports [id number] #1.00TIFF Normal [facility] Lab Reports [id number] #1.00TIFF Normal [facility] Lab Reportson 01-05-2024 Lab Reports [id number] #1.00TIFF Normal [facility] Lab Reportson 01-02-2024 Lab Reports [id number] #1.00TIFF Normal [facility] Lab Reports [id number] #1.00TIFF Normal [facility] Consent for Procedure/Surger yon 12-30-2023 Consent for Procedure/Surgery [id number] 7#1.00TIFF Normal [facility] Consent for Treatmenton 12-18 Consent for Treatment [id number] #1.00TIFF [facility] IntraOperative Documentson 0 12-30-2023 IntraOperative Documents [id number] 9#1.00TIFF [facility] Main OR Intraoperative Recor don 12-30-2023 Main OR Intraoperative Record Normal [facility] Main OR Preoperative Recordo n 12-30-2023 Main OR Preoperative Record Normal [facility] Operative Reporton Operative Report Normal [facility] Comment on above: Result Comment: Elec tronically Signed By: MAGDALENO PRADO, Arturo Busch.diane\Date and Time Signed: 12/30/23 11:59 EST Patient Educationon 12-30-19 24 Patient Education Normal [facility] Lab Reportson 12-29-2023 Lab Reports [id number] #1.00TIFF [facility] Lab Reportson 12-19-2023 Lab Reports [id number] #1.00TIFF Normal [facility] Lab Reports [id number] #1.00TIFF Normal [facility] Operative Reporton Operative Report [id number] #1.00TIFF Normal [facility] Lab Reportson 12-12-2023 Lab Reports [id number] #1.00TIFF Normal [facility] Lab Reports [id number]# 1.00TIFF Normal [facility] Consultation Noteon 12-04-19 Consultation Note [id number] #1.00TIFF Normal [facility] Formson 12-04-2023 Forms [id number]# 1.00TIFF Normal [facility] Documentationon 12-03-2023 Documentation [id number] Yeyo Avila 1955 F Date Provider Department Center 12/03/2023 Adryan-ALEXIA CLINE [facility]. No family history on file Normal [facility] Consent for Procedure/Surger yon 11-28-2023 Consent for Procedure/Surgery [id number] 9#1.00TIFF Normal [facility] RAD - MISCon 11-19-2023 RAD - MISC [id number] #1.00TIFF Normal [facility] Consent for Procedure/Surger yon 11-13-2023 Consent for Procedure/Surgery [id number] #1.00TIFF Normal [facility] ECG 12-Leadon 11-13-2023 ECG 12-Lead [id number] #1.00TIFF Normal [facility] Lab Reportson 11-13-2023 Lab Reports [id number] #1.00TIFF Normal [facility] Operative Reporton Operative Report [id number] #1.00TIFF Normal [facility] RAD - MISCon 11-13-2023 RAD - MISC [id number] #1.00TIFF Normal [facility] Ambulatory Visit Summaryon 01-13-2023 Ambulatory Visit Summary Normal [facility] Ambulatory Visit Summary Normal [facility] ECG 12-Leadon 11-12-2023 ECG 12-Lead [id number] #1.00TIFF [facility] ED Note-Physicianon 11-12-20 ED Note-Physician [id number] #1.00TIFF Normal [facility] Lab Reportson 11-12-2023 Lab Reports [id number] #1.00TIFF [facility] Patient Educationon 11-12-20 Patient Education Normal [facility] RAD - CT Reporton 11-12-2023 RAD - CT Report [id number] #1.00TIFF [facility] Urology Office/Clinic Noteon 11-12-2023 Urology Office/Clinic Note Normal [facility] Comment on above: Result Comment: Elec tronically Signed By: Arturo DOLAN MD\.br\Date and Time Signed: 11/12/23 10:49 EST\.br\Electronically Co-Signed By: Francie Myers\.br\Date and Time Co-Signed: 11/12/23 10:44 EST Consent for Treatmenton 06-18 Consent for Treatment [id number] #1.00CD:127 Normal [facility] Discharge Instructionson Discharge Instructions [id number] #1.00CD:127 Normal [facility] ED Clinical Summaryon 2022 ED Clinical Summary Normal Doron bates [facility] ED Note-Physicianon 07-13-20 ED Note-Physician Normal [facility] Comment on above: Result Comment: Elec tronically Signed By: Mathew Montana PA-C\.br\Date and Time Signed: 07/13/23 12:04 EDT\.br\Electronically Co-Signed By: Zaki Muñoz M.D.\.br\Date and Time Co-Signed: 07/13/23 12:37 EDT ED Patient Education Noteon 07-13-2023 ED Patient Education Note Normal [facility] ED Patient Summaryon 023 ED Patient Summary Normal [facility] Office Visiton 07-08-2023 Follow-up visit [id number] Yeyo Avila S 1955 Date Provider Department Center 07/08/2023 120-ALEXIA CLINE [facility] No family history on file Level of Service:30427 AR OFFICE/OUTPATIENT ESTABLISHED MOD MDM 30-39 MIN Reason for Visit and Comments: Hospital Follow-up [832] - Chest pain Normal [facility] Office Visiton 04-25-2023 Follow-up visit [id number] Yeyo Avila S 1955 F Date Provider Department Center 04/25/2023 84095-NLOXHZHRYJONO LOPEZ [facility] No family history on file Level of Service:08208 AR OFFICE/OUTPATIENT ESTABLISHED LOW MDM 20-29 MIN Normal [facility] POINT OF CARE GLUCOSEon 05-3 Glucose [Mass/Vol] 90 mg/dL Normal 74-106 [facility] Comment on above: Performed By: #### P OCGLUC #### [facility] [address] [place] [address] Dr. Win Ardon CARDIAC STRESS TESTon 2022 [...] myocardial perfusion imaging. Normal [facility] CBC AUTO DIFFon 04-01-2023 BASO # 0.1 103/ul Normal 0.0-0.1 [facility] Comment on above: Performed By: #### C BC #### [facility] [address] [address] [address] Win Ardon Basophils/100 WBC (Bld) 1.3 % Normal 0.2-2.0 [facility] Comment on above: Performed By: #### C BC #### [facility] [address] [address] [address] Win Ardon EO # 0.4 103/ul Normal 0.0-0.7 [facility] Comment on above: Performed By: #### C BC #### [facility] [address] [address] [address] Win Ardon Eosinophils/100 WBC (Bld) 4.1 % Normal 0.9-7.0 [facility] Comment on above: Performed By: #### C BC #### [facility] [address] [address] [address] Win Ardon Erythrocyte distribution width (RBC) [Ratio] 13.3 % Normal 11.0-15.0 [facility] Comment on above: Performed By: #### C BC #### [facility] [address] [address] [address] Win Ardon Hematocrit (Bld) [Volume fraction] 38.9 % Normal 36.0-48.0 [facility] Comment on above: Performed By: #### C BC #### [facility] [address] [place] [address] Dr. Win Ardon Hemoglobin (Bld) [Mass/Vol] 13.2 g/dL Normal 12.0-16.0 [facility] Comment on above: Performed By: #### C BC #### [facility] [address] [place] [address] Dr. Win Ardon IG # 0.04 10e3/ul Critically high 0.00-0.03 [facility] Comment on above: Performed By: #### C BC #### [facility] [address] [place] [address] Dr. Win Ardon IG % 0.4 % Normal 0.0-0.5 [facility] Comment on above: Performed By: #### C BC #### [facility] [address] [place] [address] Dr. Win Ardon LYMPH # 3.2 103/ul Normal 1.2-3.8 [facility] Comment on above: Performed By: #### C BC #### [facility] [address] [place] [address] Dr. Win Ardon Lymphocytes/100 WBC (Bld) 34.7 % Normal 20.5-60.0 [facility] Comment on above: Performed By: #### C BC #### [facility] [address] [place] [address] Dr. Win Ardon MANUAL DIFF REQ NO Normal [facility] Comment on above: Performed By: #### C BC #### [facility] [address] [place] [address] Dr. Win Ardon MCH (RBC) [Entitic mass] 31.3 pg Normal 26.7-34.0 [facility] Comment on above: Performed By: #### C BC #### [facility] [address] [place] [address] Dr. Win Ardon MCHC (RBC) [Mass/Vol] 33.9 g/dL Normal 29.9-35.2 [facility] Comment on above: Performed By: #### C BC #### [facility] [address] [address] [address] Win Ardon MCV (RBC) [Entitic vol] 92.2 fL Normal 81.0-99.0 [facility] Comment on above: Performed By: #### C BC #### [facility] [address] [address] [address] Win Ardon MONO # 0.7 103/ul Normal 0.3-0.8 [facility] Comment on above: Performed By: #### C BC #### [facility] [address] [place] [address] Dr. Win Ardon Monocytes/100 WBC (Bld) 7.1 % Normal 1.7-12.0 [facility] Comment on above: Performed By: #### C BC #### [facility] [address] [place] [address] Dr. Win Ardon NEUT # 4.9 103/ul Normal 1.4-6.5 [facility] Comment on above: Performed By: #### C BC #### [facility] [address] [place] [address] Dr. Win Ardon Neutrophils/100 WBC (Bld) 52.4 % Normal 43.0-75.0 [facility] Comment on above: Performed By: #### C BC #### [facility] [address] [place] [address] Dr. Win Ardon Platelet mean volume (Bld) [Entitic vol] 10.6 fL Normal 9.5-13.5 [facility] Comment on above: Performed By: #### C BC #### [facility] [address] [place] [address] Dr. Win Ardon PLT 231 103/ul Normal 150-450 [facility] Comment on above: Performed By: #### C BC #### [facility] [address] [place] [address] Dr. Win Ardon RBC 4.22 106/ul Normal 4.20-5.40 [facility] Comment on above: Performed By: #### C BC #### [facility] [address] [place] [address] Dr. Win Ardon WBC 9.3 103/ul Normal 4.0-11.0 [facility] Comment on above: Performed By: #### C BC #### [facility] [address] [address] [address] ABD/PELVIS WO CONon [...] LISSETT ALAN Date: 2023-04-01 20:03 Normal [facility] LACTATE/LACTIC ACIDon 2022 Lactate [Moles/Vol] 1.2 mmol/L Normal 0.4-2.0 [facility] Comment on above: Performed By: #### L ACT #### [facility] [address] [address] [address] 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 Order #: [id number] CLICK HERE TO VIEW EXAM RADIOLOGY REPORT [...] M.D. on 04/02/2023 at 11:10 Normal [facility] OCC BLD IMMUNO SCREENon 03-17 OCCULT BLOOD Positive Abnormal NEGATIVE [facility] Comment on above: Performed By: #### O BSCRN #### [facility] [address] [place], [place] [address] Dr. Win Ardon PROF 14(COMP METB)on 023 Albumin [Mass/Vol] 3.8 g/dL Normal 3.4-5.0 [facility] Comment on above: Performed By: #### C MP ####[facility] [address] [address]Dr[address] Win Ardon Albumin/Globulin [Mass ratio] 1.1 {ratio} Normal [facility] Comment on above: Performed By: #### C MP ####[facility] [address] [place], [place] [address]Dr. Win Ardon ALP [Catalytic activity/Vol] 99 U/L Normal 46-116 [facility] Comment on above: Performed By: #### C MP ####[facility] [address] [place], [place] [address]Dr. Win Ardon ALT [Catalytic activity/Vol] 17 U/L Normal 14-59 [facility] Comment on above: Performed By: #### C MP ####[facility] [address] [place], [place] [address]Dr. Win Ardon Anion gap [Moles/Vol] 13.4 mmol/L Normal [facility] Comment on above: Performed By: #### C MP ####[facility] [address] [place], [place] [address]Dr. Win Ardon AST [Catalytic activity/Vol] 11 U/L Critically low 15-37 [facility] Comment on above: Performed By: #### C MP ####[facility] [address] [place], [place] [address]Dr. Win Ardon Bilirubin [Mass/Vol] 0.6 mg/dL Normal 0.2-1.0 [facility] Comment on above: Performed By: #### C MP ####[facility] [address] [place], [place] [address]Dr. Win Ardon Calcium [Mass/Vol] 9.1 mg/dL Normal 8.5-10.1 [facility] Comment on above: Performed By: #### C MP ####[facility] [address] [place], [place] [address]Dr. Win Ardon Chloride [Moles/Vol] 106 mmol/L Normal 98-107 [facility] Comment on above: Performed By: #### C MP ####[facility] [address] [place], [place] [address]Dr. Win Ardon CO2 [Moles/Vol] 29.2 mmol/L Normal 21.0-32.0 [facility] Comment on above: Performed By: #### C MP ####[facility] [address] [id number][address] Win Duglas Creatinine [Mass/Vol] 0.95 mg/dL Normal 0.55-1.02 [facility] Comment on above: Performed By: #### C MP ####[facility] [address] [id number][address] Win Duglas EGFR-AF URUGUAYAN >60 Normal >=60 [facility] Comment on above: Performed By: #### C MP ####[facility] [address] [place], [place] [address]Dr. Win Duglas EGFR-NON AF URUGUAYAN 59 mL/min/1.73m2 Critically low >=60 [facility] Comment on above: Performed By: #### C MP ####[facility] [address] [place], [place] [address]Dr. Win Duglas Globulin (S) [Mass/Vol] 3.4 g/dL Normal [facility] Comment on above: Performed By: #### C MP ####[facility] [address] [place], [place] [address]Dr. Win Duglas Glucose [Mass/Vol] 162 mg/dL Critically high 74-106 [facility] Comment on above: Performed By: #### C MP ####[facility] [address] [place], [place] [address]Dr. Win Duglas Potassium [Moles/Vol] 3.6 mmol/L Normal 3.5-5.1 [facility] Comment on above: Performed By: #### C MP ####[facility] [address] [place], [place] [address]Dr. Win Ardon Protein [Mass/Vol] 7.2 g/dL Normal 6.4-8.2 [facility] Comment on above: Performed By: #### C MP ####[facility] [address] [place], [place] [address]Dr. Claudiaaida Ardon Sodium [Moles/Vol] 145 mmol/L Normal 136-145 [facility] Comment on above: Performed By: #### C MP ####[facility] [address] [place], [place] [address]Dr. Win Ardon Urea nitrogen [Mass/Vol] 14.0 mg/dL Normal 7.0-18.0 [facility] Comment on above: Performed By: #### C MP ####[facility] [address] [place], [place] [address]Dr. Win Ardon Urea nitrogen/Creatinine [Mass ratio] 14.7 mg/mg Normal [facility] Comment on above: Performed By: #### C MP ####[facility] [address] [place], [place] [address]Dr. Win Ardon PROTIMEon 04-01-2023 INR Coag (PPP) [Relative time] 1.02 {INR} Normal [facility] Comment on above: Performed By: #### P TT, PT ####[facility] [address] [place], [place] [address]Dr. Win Ardon INR GUIDELINES SEE BELOW Normal [facility] Comment on above: Result Comment: MAGDA RED INR: 2.0 - 3.0 CONDITIONS NOT LISTED BELOW 2.5 - 3.5 FOR PROSTHETIC HEART VALVE REPLACEMENT 2.5 - 3.5 RECURRENT THROMBOSIS Performed By: #### P TT, PT ####[facility] [address] [place], [place] [address]Dr. Win Ardon PT Coag (PPP) [Time] 10.8 s Normal 9.0-11.6 [facility] Comment on above: Performed By: #### P TT, PT ####[facility] [address] [place], [place] [address]Dr. Win Ardon PTTon 04-01-2023 aPTT Coag (Bld) [Time] 26.5 s Normal 22.3-36.2 [facility] Comment on above: Performed By: #### P TT, PT ####[facility] [address] [place], [place] [address]Dr. Win Ardon TYPE AND SCREENon 04-01-2023 TYPE AND SCREEN Negative Normal [facility] Comment on above: Performed By: #### T NS ####[facility] [address] [address]Dr. Claudiaaida Duglas CBC AUTO DIFFon 03-24-2023 BASO # 0.1 103/ul Normal 0.0-0.1 [facility] Comment on above: Performed By: #### C BC ####[facility] J[address] [place], [place] [address]Dr. Win Ardon Basophils/100 WBC (Bld) 1.0 % Normal 0.2-2.0 [facility] Comment on above: Performed By: #### C BC ####[facility] [address] [place], [place] [address]DrOtilia Ardon EO # 0.3 103/ul Normal 0.0-0.7 [facility] Comment on above: Performed By: #### C BC ####[facility] [address] [place], [place] [address]Dr. Win Ardon Eosinophils/100 WBC (Bld) 3.3 % Normal 0.9-7.0 [facility] Comment on above: Performed By: #### C BC ####[facility] Du[address]qu[address] [place], [place] [address]Dr. Win Ardon Erythrocyte distribution width (RBC) [Ratio] 13.2 % Normal 11.0-15.0 [facility] Comment on above: Performed By: #### C BC ####[facility] H[address] [place], [place] [address]Dr. Win Ardon Hematocrit (Bld) [Volume fraction] 41.3 % Normal 36.0-48.0 [facility] Comment on above: Performed By: #### C BC ####[facility] Lp[address] [place], [place] [address]Dr. Win Ardon Hemoglobin (Bld) [Mass/Vol] 13.6 g/dL Normal 12.0-16.0 [facility] Comment on above: Performed By: #### C BC ####[facility] W[address] [place], [place] [address]DrOtilia Ardon IG # 0.04 10e3/ul Critically high 0.00-0.03 [facility] Comment on above: Performed By: #### C BC ####[facility] [address] [address]DrOtilia Ardon IG % 0.4 % Normal 0.0-0.5 [facility] Comment on above: Performed By: #### C BC ####[facility] [address] [address]DrOtilia Ardon LYMPH # 2.2 103/ul Normal 1.2-3.8 [facility] Comment on above: Performed By: #### C BC ####[facility] [address] [address]DrOtilia Ardon Lymphocytes/100 WBC (Bld) 23.8 % Normal 20.5-60.0 [facility] Comment on above: Performed By: #### C BC ####[facility] K[address] [place], [place] [address]DrOtilia Ardon MANUAL DIFF REQ NO Normal [facility] Comment on above: Performed By: #### C BC ####[facility] [address] [address]DrOtilia Ardon MCH (RBC) [Entitic mass] 30.6 pg Normal 26.7-34.0 [facility] Comment on above: Performed By: #### C BC ####[facility] [address] [address]DrOtilia Ardon MCHC (RBC) [Mass/Vol] 32.9 g/dL Normal 29.9-35.2 [facility] Comment on above: Performed By: #### C BC ####[facility] [address] [address]DrOtilia Ardon MCV (RBC) [Entitic vol] 93.0 fL Normal 81.0-99.0 [facility] Comment on above: Performed By: #### C BC ####[facility] Y[address] [place], [place] [address]DrOtilia Ardon MONO # 0.7 103/ul Normal 0.3-0.8 [facility] Comment on above: Performed By: #### C BC ####[facility] [address] [id number]. Win Ardon Monocytes/100 WBC (Bld) 7.3 % Normal 1.7-12.0 [facility] Comment on above: Performed By: #### C BC ####[facility] [address] [id number]. Win Ardon NEUT # 5.8 103/ul Normal 1.4-6.5 [facility] Comment on above: Performed By: #### C BC ####[facility] [address] [id number]. Win Ardon Neutrophils/100 WBC (Bld) 64.2 % Normal 43.0-75.0 [facility] Comment on above: Performed By: #### C BC ####[facility] Jud[address]ys[address] [place], [place] [address]Dr. Win Ardon Platelet mean volume (Bld) [Entitic vol] 11.0 fL Normal 9.5-13.5 [facility] Comment on above: Performed By: #### C BC ####[facility] [address] [place], [place] [address]Dr. Win Ardon PLT 243 103/ul Normal 150-450 [facility] Comment on above: Performed By: #### C BC ####[facility] [address] [place], [place] [address]Dr. Win Ardon RBC 4.44 106/ul Normal 4.20-5.40 [facility] Comment on above: Performed By: #### C BC ####[facility] [address] [id number]. Win Ardon WBC 9.1 103/ul Normal 4.0-11.0 [facility] Comment on above: Performed By: #### C BC ####[facility] M[address] [place], [place] [address]DrOtilia Win Ardon LIPID PROFILEon 05-08-2023 CHOL-HDL RATIO NORM SEE BELOW Normal [facility] Comment on above: Result Comment: 3.3 - 4.4 LOW RISK 4.4 - 7.1 AVERAGE RISK 7.1 - 11.0 MODERATE RISK >11.0 HIGH RISK Performed By: #### C MP, LIPID #### [facility] [address] [address] [address] Win Ardon Cholesterol [Mass/Vol] 99 mg/dL Normal <=200 [facility] Comment on above: Performed By: #### C MP, LIPID #### [facility] [address] [address] [address] Win Ardon Cholesterol in HDL [Mass/Vol] 34 mg/dL Critically low 40-60 [facility] Comment on above: Performed By: #### C MP, LIPID #### [facility] [address] [address] [address] Win Ardon Cholesterol in LDL [Mass/Vol] 35.8 mg/dL Normal [facility] Comment on above: Performed By: #### C MP, LIPID #### [facility] [address] [address] [address] Win Ardon Cholesterol.total/Chol esterol in HDL [Mass ratio] 2.9 {ratio} Normal [facility] Comment on above: Performed By: #### C MP, LIPID #### [facility] [address] [address] [address] Win Ardon HDL NORMAL > or = 60 mg/dl - LOW CARDIOVASCULAR RISK <40 mg/dl - HIGH CARDIOVASCULAR RISK Normal [facility] Comment on above: Performed By: #### C MP, LIPID #### [facility] [address] [address] [address] Win Ardon LDL CALC NORMAL SEE BELOW Normal [facility] Comment on above: Result Comment: <100 mg/dl OPTIMAL 100 - 129 mg/dl NEAR OR ABOVE OPTIMAL 130 - 159 mg/dl BORDERLINE HIGH 160 - 189 mg/dl HIGH >190 mg/dl VERY HIGH Performed By: #### C MP, LIPID #### [facility] [address] [address] [address] Win Ardon Triglyceride [Mass/Vol] 146 mg/dL Normal <=150 [facility] Comment on above: Performed By: #### C MP, LIPID #### [facility] [address] [place] [address] Dr. Win Ardon VLDL CALC 29.2 mg/dL Normal [facility] Comment on above: Performed By: #### C MP, LIPID #### [facility] [address] [place] [address] Dr. Win Ardon PROF 14(COMP METB)on 023 Albumin [Mass/Vol] 3.9 g/dL Normal 3.4-5.0 [facility] Comment on above: Performed By: #### C MP, LIPID #### [facility] [address] [place] [address] Dr. Win Ardon Albumin/Globulin [Mass ratio] 1.1 {ratio} Normal [facility] Comment on above: Performed By: #### C MP, LIPID #### [facility] [address] [place] [address] Dr. Win Ardon ALP [Catalytic activity/Vol] 96 U/L Normal 46-116 [facility] Comment on above: Performed By: #### C MP, LIPID #### [facility] [address] [place] [address] Dr. Win Ardon ALT [Catalytic activity/Vol] 15 U/L Normal 14-59 [facility] Comment on above: Performed By: #### C MP, LIPID #### [facility] [address] [place] [address] Dr. Win Ardon Anion gap [Moles/Vol] 12.1 mmol/L Normal [facility] Comment on above: Performed By: #### C MP, LIPID #### [facility] [address] [place] [address] Dr. Win Ardon AST [Catalytic activity/Vol] 10 U/L Critically low 15-37 [facility] Comment on above: Performed By: #### C MP, LIPID #### [facility] [address] [place] [address] Dr. Win Ardon Bilirubin [Mass/Vol] 0.8 mg/dL Normal 0.2-1.0 [facility] Comment on above: Performed By: #### C MP, LIPID #### [facility] [address] [place] [address] Dr. Win Ardon Calcium [Mass/Vol] 9.1 mg/dL Normal 8.5-10.1 [facility] Comment on above: Performed By: #### C MP, LIPID #### [facility] [address] [place] [address] Dr. Win Ardon Chloride [Moles/Vol] 102 mmol/L Normal 98-107 [facility] Comment on above: Performed By: #### C MP, LIPID #### [facility] [address] [place] [address] Dr. Win Ardon CO2 [Moles/Vol] 26.0 mmol/L Normal 21.0-32.0 [facility] Comment on above: Performed By: #### C MP, LIPID #### [facility] [address] [place] [address] Dr. Win Ardon Creatinine [Mass/Vol] 0.95 mg/dL Normal 0.55-1.02 [facility] Comment on above: Performed By: #### C MP, LIPID #### [facility] [address] [place] [address] Dr. Win Ardon EGFR-AF URUGUAYAN >60 Normal >=60 [facility] Comment on above: Performed By: #### C MP, LIPID #### [facility] [address] [place] [address] Dr. iWn Ardon EGFR-NON AF URUGUAYAN 59 mL/min/1.73m2 Critically low >=60 [facility] Comment on above: Performed By: #### C MP, LIPID #### [facility] [address] [place] [address] Dr. Win Ardon Globulin (S) [Mass/Vol] 3.7 g/dL Normal [facility] Comment on above: Performed By: #### C MP, LIPID #### [facility] [address] [place] [address] Dr. Win Ardon Glucose [Mass/Vol] 336 mg/dL Critically high 74-106 T [facility] Comment on above: Performed By: #### C MP, LIPID #### [facility] [address] [address] [address] Win Ardon Potassium [Moles/Vol] 4.1 mmol/L Normal 3.5-5.1 [facility] Comment on above: Performed By: #### C MP, LIPID #### [facility] [address] [address] [address] Win Ardon Protein [Mass/Vol] 7.6 g/dL Normal 6.4-8.2 [facility] Comment on above: Performed By: #### C MP, LIPID #### [facility] [address] [address] [address] Win Ardon Sodium [Moles/Vol] 136 mmol/L Normal 136-145 [facility] Comment on above: Performed By: #### C MP, LIPID #### [facility] [address] [address] [address] Win Ardon Urea nitrogen [Mass/Vol] 10.0 mg/dL Normal 7.0-18.0 [facility] Comment on above: Performed By: #### C MP, LIPID #### [facility] [address] [place] [address] Dr. Win Ardon Urea nitrogen/Creatinine [Mass ratio] 10.5 mg/mg Normal [facility] Comment on above: Performed By: #### C MP, LIPID #### [facility] [address] [place] [address] Dr. Wni Ardon EMS Documentationon 03-18-20 23 EMS Documentation Normal [facility] Office Visiton 03-10-2023 Follow-up visit [id number] Yeyo Avila 1955 F Date Provider Department Center 03/10/2023 [id number] LOPEZ [facility] No family history on file Level of Service:52294 AR OFFICE/OUTPATIENT ESTABLISHED MOD MDM 30-39 MIN Reason for Visit and Comments: Coronary Artery Disease [187] Hypertension [703926] aneurysm of thoracic aorta [Other] Normal [facility] Coding Summary.on 02-27-2023 Coding Summary. Normal [facility] EMS Documentationon 02-28-20 EMS Documentation Normal [facility] EMS Documentation Normal [facility] Auto Diffon 02-24-2023 Basophils/100 WBC (Bld) 0.3 % Normal 0.0-2.0 [facility] Comment on above: Order Comment: Order Added by Discern Expert. Performed By: #### 2 068019, 68316155, 8327314, 35927962, 9399372, 75578364, 5690073 ####[facility] [address] [place] [address] Basophils/Leukocytes Auto (Bld) [Pure # fraction] 0.1 E9/L Normal 0.0-0.2 [facility] Comment on above: Order Comment: Order Added by Discern Expert. Performed By: #### 2 039783, 13481680, 0831096, 99182518, 7672202, 52410020, 6901353 ####[facility] [address] [place] [address] Eosinophils/100 WBC (Bld) 1.4 % Normal 0.0-8.0 [facility] Comment on above: Order Comment: Order Added by Discern Expert. Performed By: #### 2 425094, 30044806, 7716123, 33624387, 0211092, 45692857, 0366800 ####[facility] [address] [place] [address] Eosinophils/Leukocytes Auto (Bld) [Pure # fraction] 0.2 E9/L Normal 0.0-0.5 [facility] Comment on above: Order Comment: Order Added by Discern Expert. Performed By: #### 2 563039, 79593876, 3485132, 25719875, 4384313, 23554200, 3829864 ####[facility] [address] [place] [address] Lymphocytes/100 WBC (Bld) 30.2 % Normal 14.0-50.0 [facility] Comment on above: Order Comment: Order Added by Discern Expert. Performed By: #### 2 995017, 51020683, 1551069, 29981240, 7101267, 54725098, 6099453 ####[address] [place] [address] Lymphocytes/Leukocytes Auto (Bld) [Pure # fraction] 5.1 E9/L High 1.0-4.0 [facility] Comment on above: Order Comment: Order Added by Discern Expert. Performed By: #### 2 165726, 11231525, 5899243, 60849680, 5991310, 26395702, 7916774 ####[address] [place] [address] Monocytes/100 WBC (Bld) 8.3 % Normal 4.0-14.0 [facility] Comment on above: Order Comment: Order Added by Dereje Expert. Performed By: #### 2 055873, 68784161, 8052396, 05126322, 0864853, 42392430, 6921416 ####[address] [place] [address] Monocytes/Leukocytes Auto (Bld) [Pure # fraction] 1.4 E9/L High 0.2-1.0 [facility] Comment on above: Order Comment: Order Added by Dereje Expert. Performed By: #### 2 198513, 08659181, 4763932, 66988010, 4199943, 31826614, 0057912 ####[address] [place] [address] Neutrophils/100 WBC (Bld) 59.8 % Normal 36.0-75.0 [facility] Comment on above: Order Comment: Order Added by Dereje Expert. Performed By: #### 2 171779, 40886689, 1641035, 27504857, 5964972, 84456060, 9463234 ####[facility] [address] [place] [address] Neutrophils/Leukocytes Auto (Bld) [Pure # fraction] 10.0 E9/L High 2.0-7.5 [facility] Comment on above: Order Comment: Order Added by Discern Expert. Performed By: #### 2 506502, 44471262, 0773401, 59195400, 8300168, 83784639, 3847666 ####[facility] [address] [place] [address] BMPon 02-24-2023 Anion gap [Moles/Vol] 8 mmol/L Normal 6-16 [facility] Comment on above: Performed By: #### 1 1787594, 33521355, 5042222, 9126306, 8003345 ####[facility] [address] [place] [address] Calcium [Mass/Vol] 8.4 mg/dL Low 8.9-11.1 [facility] Comment on above: Performed By: #### 1 5075490, 53967331, 9029730, 5980423, 6397186 ####[facility] [address] [place] [address] Chloride [Moles/Vol] 108 mmol/L Normal 101-111 [facility] Comment on above: Performed By: #### 1 6720618, 57303187, 2971519, 4471405, 1177717 ####[facility] [address] [place] [address] CO2 [Moles/Vol] 25 mmol/L Normal 21-31 [facility] Comment on above: Performed By: #### 1 8372377, 02931612, 3568817, 9288908, 8553953 ####[facility] [address] [place] [address] Creatinine [Mass/Vol] 1.2 mg/dL Normal 0.5-1.3 [facility] Comment on above: Performed By: #### 1 2882376, 72238082, 5772236, 6160021, 4365996 ####[facility] [address] [place] [place] [address] Glucose [Mass/Vol] 102 mg/dL Normal 55-199 [facility] Comment on above: Result Comment: If t his glucose result represents a fasting glucose, interpretation should refer to the following reference range: 55-99 mg/dL Performed By: #### 1 2895477, 64988506, 1739290, 3760814, 4303550 ####[facility] [address] [place] [address] Potassium [Moles/Vol] 3.4 mmol/L Low 3.5-5.3 [facility] Comment on above: Performed By: #### 1 3438459, 07388047, 3592749, 5716304, 5761079 ####[facility] [address] [place] [address] Sodium [Moles/Vol] 138 mmol/L Normal 135-145 [facility] Comment on above: Performed By: #### 1 8407545, 32481466, 0634344, 5807555, 6551638 ####[facility] [address] [place] [address] Urea nitrogen [Mass/Vol] 30 mg/dL High 5-21 [facility] Comment on above: Performed By: #### 1 0038661, 30840569, 5871159, 4310178, 7598034 ####[facility] [address] [place] [address] Urea nitrogen/Creatinine [Mass ratio] 25 No Units High 10-20 [facility] Comment on above: Performed By: #### 1 8829844, 66116774, 1891068, 1232919, 8376485 ####[facility] [address] [place] [address] Creatinine [Mass/Vol] 1.4 mg/dL High 0.5-1.3 [facility] Comment on above: Performed By: #### 2 247266, 33159497, 2997691, 84817682, 7790106, 63551139, 3993626 ####[facility] [address] [place] [address] Urea nitrogen [Mass/Vol] 30 mg/dL High 5-21 [facility] Comment on above: Performed By: #### 2 331129, 44480992, 4333323, 08550559, 1638017, 39424752, 7344342 ####[facility] [address] [place] [address] Urea nitrogen/Creatinine [Mass ratio] 21 No Units High 10-20 [facility] Comment on above: Performed By: #### 2 082555, 15619975, 2704722, 29483457, 2445612, 57097207, 5971301 ####[facility] [address] [place] [address] Anion gap [Moles/Vol] 11 mmol/L Normal 6-16 [facility] Comment on above: Performed By: #### 2 419759, 06776996, 4012209, 17937867, 7985541, 96888219, 2010737 ####[facility] [address] [place] [address] Calcium [Mass/Vol] 8.9 mg/dL Normal 8.9-11.1 [facility] Comment on above: Performed By: #### 2 167705, 61244209, 2312031, 12091344, 4455299, 10802863, 4479873 ####[facility] [address] [place] [address] Chloride [Moles/Vol] 103 mmol/L Normal 101-111 [facility] Comment on above: Performed By: #### 2 915453, 32154208, 6240353, 81730569, 1380356, 51151329, 7048225 ####[facility] [address] [place] [address] CO2 [Moles/Vol] 26 mmol/L Normal 21-31 [facility] Comment on above: Performed By: #### 2 083398, 44767020, 3463012, 46074778, 6493924, 64946473, 5616161 ####[facility] [address] [place] [address] Glucose [Mass/Vol] 118 mg/dL Normal 55-199 [facility] Comment on above: Result Comment: If t his glucose result represents a fasting glucose, interpretation should refer to the following reference range: 55-99 mg/dL Performed By: #### 2 001595, 51181992, 5728403, 11669582, 3921748, 67503517, 1927160 ####[facility] [address] [place] [address] Potassium [Moles/Vol] 3.0 mmol/L Low 3.5-5.3 [facility] Comment on above: Performed By: #### 2 561502, 48363959, 9423217, 62815246, 3831315, 63356967, 9292582 ####[facility] [address] [place] [address] Sodium [Moles/Vol] 137 mmol/L Normal 135-145 [facility] Comment on above: Performed By: #### 2 443178, 33866305, 0648875, 35189626, 5882818, 22968183, 6079258 ####[facility] [address] [place] [address] CBC w/ Auto Diffon 3 Erythrocyte distribution width (RBC) [Ratio] 13.5 % Normal 10.9-14.2 [facility] Comment on above: Performed By: #### 2 021039, 09496315, 5895500, 32301295, 7311384, 21955815, 1284919 ####[facility] [address] [place] [address] Hematocrit (Bld) [Volume fraction] 40.8 % Normal 34.0-46.0 [facility] Comment on above: Performed By: #### 2 737328, 03269321, 2913685, 38432761, 5545592, 54882215, 2897000 ####[facility] [address] [place] [address] Hemoglobin (Bld) [Mass/Vol] 13.8 g/dL Normal 12.0-16.0 [facility] Comment on above: Performed By: #### 2 782585, 38619331, 2441759, 95891155, 4286552, 83541537, 9616640 ####[facility] [address] [place] [address] MCH (RBC) [Entitic mass] 29.6 pg Normal 27.0-34.0 [facility] Comment on above: Performed By: #### 2 064926, 55481498, 1678444, 08173124, 4841857, 33474655, 0288825 ####[facility] [address] [place] [address] MCHC (RBC) [Mass/Vol] 33.9 g/dL Normal 31.4-36.0 [facility] Comment on above: Performed By: #### 2 555646, 47325527, 9026221, 81979214, 5257452, 17474218, 1752277 ####[address] [address] MCV (RBC) [Entitic vol] 87.3 fL Normal 80.0-100.0 [facility] Comment on above: Performed By: #### 2 549905, 50518854, 1562627, 70870464, 0118440, 53768777, 0735756 ####[address] [address] Platelet mean volume (Bld) [Entitic vol] 9.3 fL Normal 6.4-10.8 [facility] Comment on above: Performed By: #### 2 933554, 66433509, 3818721, 59766094, 3686241, 94043914, 1137690 ####[address] [address] Platelets (Bld) [#/Vol] 234.0 E9/L Normal 150.0-500.0 [facility] Comment on above: Performed By: #### 2 724432, 06083474, 6612294, 32063104, 3646936, 45978200, 9547569 ####[facility] [address] [place] [address] RBC (Bld) [#/Vol] 4.7 E12/L Normal 4.3-5.9 [facility] Comment on above: Performed By: #### 2 900858, 27938947, 8324212, 49985772, 6674199, 07893794, 9170396 ####[facility] [address] [place] [address] WBC corrected for nucl RBC Auto (Bld) [#/Vol] 16.7 E9/L High 4.0-11.0 [facility] Comment on above: Result Comment: Slid e reviewed by AD. Performed By: #### 2 133657, 40164582, 1071525, 57166979, 3849945, 88011299, 4415891 ####[facility] [address] [place] [address] CHEMISTRYOrdered By: Lab ROP User on 02-24-2023 Glucose [Mass/Vol] 144 mg/dL High 55 - 99 mg/dL LINDSAY [facility] P[facility] Subsection Comment on above: Result Comment: Edilia arleth Meter POC Device SN [id number] Invalid Interpretation Code [facility] P[facility] Subsection POC User ID [id number] Invalid Interpretation Code [facility] P[facility] Subsection POC Username KRISTI MADDEN Invalid Interpretation Code [facility] POC Subsection Glucose [Mass/Vol] 76 mg/dL Normal 55 - 99 mg/dL [facility] POC Subsection Comment on above: Result Comment: Edilia arleth Meter POC Device SN [id number] Invalid Interpretation Code [facility] P[facility] Subsection POC User ID [id number] Invalid Interpretation Code [facility] P[facility] Subsection POC Username KRISTI MADDEN Invalid Interpretation Code [facility] POC Subsection CHEMISTRYOrdered By: SYSTEM SYSTEM on [...] 137 mmol/L Normal 135 - 145 mmol/L [facility] Remisol Troponin I.cardiac [Mass/Vol] 8.00 pg/mL Low 10.10 - 27.10 pg/mL [facility] Remisol Urea nitrogen [Mass/Vol] 30 mg/dL High 5 - 21 mg/dL [facility] Remisol Urea nitrogen/Creatinine [Mass ratio] 21 mg/mg High 10 - 20 [facility] Remisol COAGULATIONOrdered By: Soheila Jenkins on 02-24-2023 aPTT Coag (PPP) [Time] 23.9 s Low 25.1 - 36.5 second(s) [facility] Auto Coag INR Coag (PPP) [Relative time] 1.2 {INR} Invalid Interpretation Code [facility] Auto Coag PT Coag (PPP) [Time] 13.7 s High 9.4 - 1 2.5 second(s) [facility] Auto Coag CT Head or Brain w/o Contras ton 02-24-2023 CT Head or Brain w/o Contrast Normal [facility] CT Spine Cervical w/o Contra ston 02-24-2023 CT Spine Cervical w/o Contrast Normal [facility] Capillary Glucose POCon 02-15 Glucose [Mass/Vol] 144 mg/dL High 55-99 [facility] Comment on above: Result Comment: Edilia arleth Meter Performed By: #### 2 [id number] ####[facility] [address] [place] [address] Glucose [Mass/Vol] 76 mg/dL Normal 55-99 [facility] Comment on above: Result Comment: Edilia arleth Meter Performed By: #### 2 [id number] ####[facility] [address] [place] [address] Consent for Treatmenton 02-15 Consent for Treatment [id number] 5#1.00CD:127 Normal [facility] Discharge Instructionson Discharge Instructions [id number] 8#1.00CD:127 Normal [facility] ED Clinical Summaryon 2022 ED Clinical Summary Normal Doron bates [facility] ED Note-Physicianon 02-25-20 ED Note-Physician Normal [facility] Comment on above: Result Comment: Elec tronically Signed By: Timoteo PRADO, Jordy\.br\Date and Time Signed: 02/24/23 02:05 EDT ED Patient Education Noteon 02-24-2023 ED Patient Education Note Normal [facility] ED Patient Summaryon 023 ED Patient Summary Normal [facility] ED Traumaon 02-24-2023 ED Trauma [id number] 1#1.00CD:127 Normal [facility] HEMATOLOGYOrdered By: SYSTEM SYSTEM on 02-24-2023 [...] 02-24-2023 Albumin [Mass/Vol] 3.7 g/dL Normal 3.3-5.0 [facility] Comment on above: Performed By: #### 2 319599, 67247108, 5624495, 81639547, 2743552, 41971154, 4791983 ####[facility] [address] [place] [address] Albumin/Globulin (S) [Mass conc ratio] 1.3 Normal 1.1-2.2 [facility] Comment on above: Performed By: #### 2 328179, 36818376, 2230277, 14489450, 8767996, 50197698, 0290806 ####[facility] [address] [place] [address] ALP [Catalytic activity/Vol] 84 Int._Unit/L Normal 21-98 [facility] Comment on above: Performed By: #### 2 104612, 10551805, 6750767, 03055863, 4278851, 19334962, 2833438 ####[facility] [address] [place] [address] ALT No additional P-5'-P [Catalytic activity/Vol] 13 Int._Unit/L Normal 6-46 [facility] Comment on above: Performed By: #### 2 073804, 16368738, 5941962, 82569368, 5365284, 67163023, 0044019 ####[place] [place] 04[address] AST [Catalytic activity/Vol] 14 Int._Unit/L Normal 5-43 [facility] Comment on above: Performed By: #### 2 782010, 02435359, 6867250, 18139950, 1988892, 05836111, 1992735 ####[facility] [address] [place] [address] Bilirubin [Mass/Vol] 1.1 mg/dL Normal 0.0-1.1 [facility] Comment on above: Performed By: #### 2 755037, 43998504, 1381904, 45704440, 2510448, 74591233, 1809637 ####[address] [place] [address] Bilirubin.direct [Mass/Vol] 0.3 mg/dL Normal 0.1-0.4 [facility] Comment on above: Performed By: #### 2 237772, 16034700, 9359347, 49170478, 7392349, 77923591, 2499185 ####[facility] [address] [place] [address] Bilirubin.indirect [Mass or moles/Vol] 0.8 mg/dL Normal 0.1-0.9 [facility] Comment on above: Performed By: #### 2 894009, 08724077, 1900972, 57870848, 8721104, 70818974, 4480008 ####[facility] [address] [place] [address] Globulin (S) [Mass/Vol] 2.8 g/dL Normal 1.4-4.0 [facility] Comment on above: Performed By: #### 2 263764, 14062875, 1590329, 98493594, 6751075, 84143041, 7602570 ####[facility] [address] [place] [address] Protein [Mass/Vol] 6.5 g/dL Normal 6.0-7.8 [facility] Comment on above: Performed By: #### 2 370650, 59259635, 1592941, 02803027, 0007090, 51424918, 7356984 ####[facility] [address] [place] [address] Inpatient Clinical Summaryon 02-24-2023 Inpatient Clinical Summary Normal [facility] Inpatient Patient Summaryon 02-24-2023 Inpatient Patient Summary Normal [facility] Inpatient Patient Summary Normal [facility] Interdisciplinary Note - Aaron e Manageron 02-24-2023 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 Normal [facility] Comment on above: Result Comment: Elec tronically Signed By: Freda Dodson\.br\Date and Time Signed: 02/24/23 11:14 EDT Interdisciplinary Note - PTo n 02-24-2023 Interdisciplinary Note - PT Normal [facility] Magnesiumon 02-24-2023 Magnesium [Mass/Vol] 2.1 mg/dL Normal 1.3-2.4 [facility] Comment on above: Performed By: #### 1 2073822, 15973076, 4673229, 2079397, 8757429 ####[facility] [address] [place] [address] Monitor Recordon 02-24-2023 Monitor Record [id number] 4#1.00CD:127 Normal [facility] Monitor Record [id number] 0#1.00CD:127 Normal [facility] Monitor Record [id number] 6#1.00CD:127 Normal [facility] PT & PTTon 02-24-2023 aPTT Coag (PPP) [Time] 23.9 second(s) Low 25.1-36.5 [facility] Comment on above: Result Comment: Para [...] the same coagulation reagent and instrumentation as [facility]. Currently there are no coagulation studies available worldwide for children to 14 days, and no normal ranges. Heparin therapeutic range (represented by Anti-Factor Xa activity of 0.2 - 0.4 U/mL) corresponds to PTT of 56.6 - 109.0 sec. Performed By: #### 2 886645, 34829302, 8377239, 00431937, 7048224, 29722344, 3510531 ####[facility] [address] [place] [address] INR Coag (PPP) [Relative time] 1.2 {INR} Invalid Interpretation Code [facility] Comment on above: Result Comment: INR results are specifically intended to assess patients stabilized on long-term Anticoagulation therapy suggested INR?s ?Less Intensive Anticoagulation? 2.0 ? 3.0Conventional Range 3.0 ? 4.5 Performed By: #### 2 999132, 58613093, 8959909, 90157530, 2473432, 02303168, 8002423 ####[facility] [address] [place] [address] PT Coag (PPP) [Time] 13.7 second(s) High 9.4-12.5 [facility] Comment on above: Result Comment: 15 [...] the same coagulation reagent and instrumentation as [facility]. Currently there are no coagulation studies available worldwide for children to 14 days, and no normal ranges. Performed By: #### 2 485688, 20346771, 5876013, 54569458, 5601801, 45153468, 0388793 ####[facility] [address] [place] [address] Patient Education - Texton 0 02-24-2023 Patient Education - Text Normal [facility] Potassiumon 02-24-2023 Potassium [Moles/Vol] 3.7 mmol/L Normal 3.5-5.3 [facility] Comment on above: Order Comment: Pleas e call me with result. Thanks Performed By: #### 2 666785 ####[facility] [address] [place] [address] Pre-Arrival Noteon Pre-Arrival Note Normal [facility] Progress Note-Physicianon Progress Note-Physician Normal [facility] Comment on above: Result Comment: Elec tronically Signed By: PERLA PRADO, Cuauhtemocfo\.br\Date and Time Signed: 02/24/23 09:47 EDT RAD - Preliminary Cat Scan R eporton 02-24-2023 RAD - Preliminary Cat Scan Report [id number] 6#1.00CD:127 Normal [facility] RAD - Preliminary Cat Scan Report [id number] 5#1.00CD:127 Normal [facility] TSH With T4fr Reflexon 02-24 TSH Qn 0.97 m[IU]/L Normal 0.34-5.60 [facility] Comment on above: Performed By: #### 1 7823538, 59109459, 1151098, 1973705, 9115900 ####[facility] [address] [place] [address] Troponinon 02-24-2023 Troponin I.cardiac [Mass/Vol] 7.40 pg/mL Low 10.10-27.10 [facility] Comment on above: Result Comment: The 95% CI (Confidence Interval) PPV (Positive Predictive Value) for myocardial infarction in females is 38 pg/mL, in males 51 pg/mL. The results should be used in conjunction with clinical conditions of myocardial infarction.(Access High Sensitivity Troponin I Instructions For Use, [employer], June 2018) Performed By: #### 1 2995539, 30033442, 7076803, 0788096, 9378910 ####[facility] [address] [place] [address] Troponin 0 Hr.on 02-24-2023 Troponin I.cardiac [Mass/Vol] 8.00 pg/mL Low 10.10-27.10 [facility] Comment on above: Result Comment: The 95% CI (Confidence Interval) PPV (Positive Predictive Value) for myocardial infarction in females is 38 pg/mL, in males 51 pg/mL. The results should be used in conjunction with clinical conditions of myocardial infarction.(Access High Sensitivity Troponin I Instructions For Use, [employer], June 2018) Performed By: #### 2 310160, 92361999, 9897847, 13472713, 2472510, 80984891, 1092017 ####[facility] [address] [place] [address] Troponin 3 Hr.on 02-24-2023 Troponin I.cardiac [Mass/Vol] 6.70 pg/mL Low 10.10-27.10 [facility] Comment on above: Result Comment: The 95% CI (Confidence Interval) PPV (Positive Predictive Value) for myocardial infarction in females is 38 pg/mL, in males 51 pg/mL. The results should be used in conjunction with clinical conditions of myocardial infarction.(Access High Sensitivity Troponin I Instructions For Use, Mary Cherry, June 2018) Performed By: #### 1 [id number] ####[facility] [address] [facility] [place] [address] UA With Cult Reflexon 2022 Bacteria LM Ql (Urine sed) TRACE Normal Trace [facility] Comment on above: Performed By: #### 1 1056399 ####[facility] [address] [place] [address] Bilirubin Ql (U) Negative Normal Negative [facility] Comment on above: Performed By: #### 1 2997250 ####[facility] [address] [place] [address] Clarity (U) SL CLOUDY Abnormal Clear [facility] Comment on above: Performed By: #### 1 3078705 ####[facility] [address] [facility] [place] [address] Color (U) YELLOW Normal Yellow [facility] Comment on above: Performed By: #### 1 5070649 ####[facility] [address] [facility] [place] [address] Crystals LM Ql (Urine sed) Present Normal [facility] Comment on above: Performed By: #### 1 4893456 ####[facility] [address] [place] [address] Epithelial cells.squamous LM.HPF (Urine sed) [#/Area] /[HPF] Normal 0-2 [facility] Comment on above: Performed By: #### 1 6130593 ####[facility] [address] [place] [address] Glucose Test strip (U) [Mass/Vol] Negative Normal Negative [facility] Comment on above: Performed By: #### 1 6262648 ####[facility] [address] [place] [address] Hemoglobin Ql (U) 3+ Abnormal Negative [facility] Comment on above: Performed By: #### 1 5353563 ####[address] [address] Ketones (U) [Mass/Vol] TRACE Abnormal Negative [facility] Comment on above: Performed By: #### 1 6995427 ####[address] [address] [place].plasma/[place] .RBC (Bld) [Mass ratio] 21-30 Abnormal 0-3 [facility] Comment on above: Performed By: #### 1 2914228 ####[address] [address] Mucus Ql (Urine sed) TRACE Normal Fish [facility] Comment on above: Performed By: #### 1 7719945 ####[address] [address] Nitrite Ql (U) Negative Normal Negative [facility] Comment on above: Performed By: #### 1 3640136 ####[address] [address] pH (U) 6.0 [pH] Invalid Interpretation Code 5.0-9.0 [facility] Comment on above: Performed By: #### 1 4659927 ####[facility] [address] [place] [address] Protein (U) [Mass/Vol] 1+ Abnormal Negative [facility] Comment on above: Performed By: #### 1 1067324 ####[address] [address] Specific gravity (U) [Rel density] 1.020 Invalid Interpretation Code 1.005-1.030 [facility] Comment on above: Performed By: #### 1 6466679 ####[address] [address] Type of Urine collection method Clean Catch Normal [facility] Comment on above: Performed By: #### 1 9784603 ####[facility] [address] [place] [address] Urobilinogen Qn (U) 0.2 {John'U}/dL Normal 0.0-1.0 [facility] Comment on above: Performed By: #### 1 7149013 ####[facility] [address] [place] [address] WBC Auto Ql (U) TRACE Abnormal Negative [facility] Comment on above: Performed By: #### 1 9646063 ####[facility] [address] [place] [address] WBC casts LM.LPF (Urine sed) [#/Area] 4-10 Normal [facility] Comment on above: Performed By: #### 1 4219364 ####[facility] [address] [place] [address] WBC LM.HPF (Urine sed) [#/Area] 0-5 Normal 0-5 [facility] Comment on above: Performed By: #### 1 6333187 ####[facility] [address] [place] [address] URINALYSISOrdered By: Dave Jenkins on 02-24-2023 Bacteria LM Ql (Urine sed) Trace /HPF Normal Trace/HPF [facility] UA Auto SS Bilirubin Ql (U) Negative [...] Interpretation Code Negative [facility] UA Auto SS [place].plasma/[place] .RBC (Bld) [Mass ratio] 21-30 /HPF Invalid [...] [facility] UA Auto SS Urobilinogen Qn (U) 0.8202713 {John'U}/dL Normal 0.0 - 1.0 EU/dL [facility] [...] XR Chest Single View Normal Fish [facility] XR Spine Lumbosacral 2 or 3 Viewson 02-24-2023 XR Spine Lumbosacral 2 or 3 Views Normal [facility] eGFRon 02-24-2023 GFR/1.73 sq M.predicted among blacks MDRD (S/P/Bld) [Vol rate/Area] 55 mL/min/1.73 m2 Low >=59 [facility] Comment on above: Order Comment: Order added by Discern Expert. Result Comment: eGFR is race adjusted. AA=. Performed By: #### 1 2842896, 65143431, 1834454, 9911032, 7224808 ####[facility] [address] [place] [address] GFR/1.73 sq M.predicted among non-blacks MDRD (S/P/Bld) [Vol rate/Area] 45 mL/min/1.73 m2 Low >=59 [facility] Comment on above: Order Comment: Order added by Discern Expert. Result Comment: Auto Clocks Repairer kuldip kidney disease could be indicated at eGFR's of less than 60 mL/min/1.73m2. Kidney failure is indicated at less than 15 mL/min/1.73m2. Performed By: #### 1 2168772, 23615018, 4469542, 3138351, 9865242 ####[facility] [address] [place] [address] GFR/1.73 sq M.predicted among blacks MDRD (S/P/Bld) [Vol rate/Area] 46 mL/min/1.73 m2 Low >=59 [facility] Comment on above: Order Comment: Order added by Discern Expert. Result Comment: eGFR is race adjusted. AA=. Performed By: #### 2 461326, 07547643, 2621825, 27987015, 8380764, 37284650, 2806568 ####[facility] [address] [place] [address] GFR/1.73 sq M.predicted among non-blacks MDRD (S/P/Bld) [Vol rate/Area] 38 mL/min/1.73 m2 Low >=59 [facility] Comment on above: Order Comment: Order added by Discern Expert. Result Comment: Auto Clocks Repairer kuldip kidney disease could be indicated at eGFR's of less than 60 mL/min/1.73m2. Kidney failure is indicated at less than 15 mL/min/1.73m2. Performed By: #### 2 022576, 68801271, 4761127, 55361530, 4410757, 94454632, 0786489 ####[facility] [address] [place] [address] Covid-19 PCR [facility]on 01-17 SARS-CoV-2 (COVID-19) RNA OSVALDO+probe Ql (Unsp spec) Not detected Normal NOT DETECTED [facility] Comment on above: Result Comment: This test is not yet approved or cleared by the [place] FDA. When there are no FDA-approved or cleared tests available, and other criteria are met, FDA can make tests available under an emergency access mechanism called an Emergency Use Authorization (EUA). The EUA for this test is supported by the [place] of Health and Human Service's (HHS's) declaration [...] consistent with SARS-CoV-2. Performed By: #### [facility] #### [facility] [address] [address] [address] Win Ardon SYMPTOMATIC COVID-19 ANTIGEN on 02-14-2023 EUA Statement SEE BELOW Normal [facility] Comment on above: Result Comment: This [...] By: #### C VDAGS #### [facility] [address] [address] [address] Win Ardon SARS-CoV-2 (COVID-19) RNA OSVALDO+probe Ql (Unsp spec) Negative Normal NEGATIVE [facility] Comment on above: Performed By: #### C VDAGS #### [facility] [id number] Win Ardon XR KNEE RT 4V [...] Date: 2022-10-05 19:58 Normal [facility] Creatinine (Bld) [Mass/Vol]O rdered By: Ese Tan on 02-18-2022 Creatinine [Mass/Vol] 0.8 mg/dL 0.6-1.3 [facility] Comment on above: ER/ESD physician is notified/shown all ISTAT results.Critical values may be confirmed by laboratory testing ifdeemed necessary by ER attending doctor. ISTAT XRay CREon 02-18-2022 Creatinine [Mass/Vol] 0.8 mg/dL Normal 0.6-1.3 [facility] Comment on above: Result Comment: ER/E SD physician is notified/shown all ISTAT results. Critical values may be confirmed by laboratory testing if deemed necessary by ER attending doctor. Performed By: #### B KNIFE SETTER ASSEMBLER, PTT, CKMB, LIPASE, CK, TROP, CBC, PT, CMP #### [facility] [address] ISTAT GFR ( > 60 Normal [facility] Comment on above: Result Comment: GFR estimated reference range: According to KDOQI guidelines, <60 ml/min/1.73m2 is sufficient to diagnose a patient with chronic kidney disease. PERFORMED BY: [place] [address] PATHOLOGIST AIR BRAKE WORKER WALDO WANG M.D. Performed By: #### B KNIFE SETTER ASSEMBLER, PTT, CKMB, LIPASE, CK, TROP, CBC, PT, CMP #### [facility] [address] ISTAT GFR (Non- Am > 60 Normal [facility] Comment on above: Performed By: #### B KNIFE SETTER ASSEMBLER, PTT, CKMB, LIPASE, CK, TROP, CBC, PT, CMP #### [facility] [address] MR abdomen wo/w conon 2021 MR abdomen wo/w con [facility] Main [place] [address] [place] [address] MRI Report Signed Patient: Yeyo Avila MR#: [id number] : 1955 Acct:[id number] Age/Sex: 66 / F ADM Date: 02/18/22 Loc: MR Room: Type: [facility] Attending Dr: Ese Tan MD Ordering [...] Warren Jr., D.O.02/18/2022 4:02 PM Dictation Location: [facility]--11 Transcribed By: [facility] 02/18/22 1602 Dictated By: Javi Warren Jr, DO 02/18/22 1556 Signed By: 02/18/22 1602 Normal [facility] No Panel InformationOrdered By: Ese Tan on 02-18-2022 POC Estimated GFR > 60 [facility] Comment on above: GFR estimated refere nce range: According to KDOQI guidelines, <60 ml/min/1.73m2 is sufficient to diagnose a patient with chronic kidney disease. POC Estimated GFR Non- Amer > 60 [facility] Cardiovascular Lab Reporton 03-22-2021 Cardiovascular Lab Report [facility] Patient Name: [facility] Yeyo Cooper MR #: [id number] Department of Physician: Radha Carter M.D. Division of Service Date: 03/21/2021 Cardiology Birthdate: 1955 Adult Cardiovascular Room #: [place] [address] Cardiovascular Laboratory Report FINAL IMPRESSIONS: 1. 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 2. Patent stent in the second diagonal branch of the left anterior descending coronary artery with tllp-gy-qrrpicqb in-stent restenosis. 3. Otherwise, nonobstructive coronary arteries [...] bilateral selective coronary angiography, placement of a 6-[place] Islander MynxGrip closure device. METHODS: After risks, benefits, and alternatives were explained, written informed consent was obtained. The patient was prepped and draped in the usual sterile fashion over the right groin. Using 1% lidocaine solution, local infiltration anesthesia was achieved. Using a modified Seldinger technique, a micropuncture kit, an ultrasound guidance access to the right common femoral vein and artery was obtained. A 6-[place] Islander x 11 cm sheath were placed in each. Limited femoral angiography was performed via the micropuncture kit prior to upsizing through the 6-[place] Islander sheath in the artery. A Cazares catheter [...] the procedure. All catheters were removed. A 6-[place] Islander MynxGrip closure device was deployed per protocol [...] Pardo M.D. Date Trans: 03/22/2021 05:11 A/yoel DN_[id number] cc: Alexia Cline, MSN, SHOE LINING FITTER-C Department Of Surgery [place] [address] [facility] [address] Robin Ponce M.D. [address] [address] [place] [facility] CT angio abdomen pelvison CT angio abdomen pelvis [facility] Main [place] [id number] CT Scan Report Signed Patient: Yeyo Avila MR#: [id number] : 1955 Acct:[id number] Age/Sex: 65 / F ADM Date: 03/19/21 Loc: ER Room: Type: [facility] ER Attending Dr: Ordering Provider: Ismael Santillan DO Date of Service: 03/19/21 CT/CT angio chest: r/o dissection ([id number]) CT/CT angio abdomen pelvis: R/O DISSECTION Copies [...] Martinez Jr., M.D.03/20/2021 8:52 AM Dictation Location: [place] [address] Transcribed By: [facility] 03/20/21 0852 Dictated By: Gavin Martinez Jr, MD 03/20/21 0841 Signed By: 03/20/21 0852 Normal [facility] Dipstick and Microscopicon 0 03-20-2021 Appearance (U) Clear Normal Clear [facility] Comment on above: Order Comment: Name Collection Type:: Clean-Voided Midstream Performed By: #### A DDONUAPLUS #### [address] Bacteria,Urine None Seen Normal None Seen [facility] Comment on above: Order Comment: Name Collection Type:: Clean-Voided Midstream Performed By: #### A DDONUAPLUS #### [facility] [address] [place] [address] [place] Bilirubin,Urine Negative Normal Negative [facility] Comment on above: Order Comment: Name Collection Type:: Clean-Voided Midstream Performed By: #### A DDONUAPLUS #### [facility] [address] [place] [address] [place] Color (U) Yellow Normal Yellow [facility] Comment on above: Order Comment: Name Collection Type:: Clean-Voided Midstream Performed By: #### A DDONUAPLUS #### [facility] [address] [place], [place] [address] [place] Glucose Ql (U) 500 mg/dL High Normal [facility] Comment on above: Order Comment: Name Collection Type:: Clean-Voided Midstream Performed By: #### A DDONUAPLUS #### [facility] [address] [place] [address] [place] Hyaline Casts,Urine 0-8 Normal 0-8 [facility] Comment on above: Order Comment: Name Collection Type:: Clean-Voided Midstream Result Comment: PERF ORMED BY: [place] [address] PATHOLOGIST AIR BRAKE WORKER WALDO WANG M.D. Performed By: #### A DDONUAPLUS #### [facility] [address] [place] [address] [place] Ketones Ql (U) Trace High Negative [facility] Comment on above: Order Comment: Name Collection Type:: Clean-Voided Midstream Performed By: #### A DDONUAPLUS #### [facility] [address] [place] [address] [place] Leukocyte esterase Test strip Ql (U) Negative Normal Negative [facility] Comment on above: Order Comment: Name Collection Type:: Clean-Voided Midstream Performed By: #### A DDONUAPLUS #### [facility] [address] [place] [address] [place] Nitrite,Urine Negative Normal Negative [facility] Comment on above: Order Comment: Name Collection Type:: Clean-Voided Midstream Performed By: #### A DDONUAPLUS #### [facility] [address] [place] [address] Occult Blood,Urine Negative Normal Negative [facility] Comment on above: Order Comment: Name Collection Type:: Clean-Voided Midstream Performed By: #### A DDONUAPLUS #### [address] pH (U) 6.0 [pH] Normal 5.0-9.0 [facility] Comment on above: Order Comment: Name Collection Type:: Clean-Voided Midstream Performed By: #### A DDONUAPLUS #### [address] Protein,Urine Trace High Negative [facility] Comment on above: Order Comment: Name Collection Type:: Clean-Voided Midstream Performed By: #### A DDONUAPLUS #### [address] RBC,Urine 1-2 Normal 0-4 [facility] Comment on above: Order Comment: Name Collection Type:: Clean-Voided Midstream Performed By: #### A DDONUAPLUS #### [address] Renal Epithelial Cells,Urine None Seen Normal 0-1 [facility] Comment on above: Order Comment: Name Collection Type:: Clean-Voided Midstream Performed By: #### A DDONUAPLUS #### [facility] [address] [place] [address] Specificy [place],Urine > 1.050 High 1.001-1.030 [facility] Comment on above: Order Comment: Name Collection Type:: Clean-Voided Midstream Performed By: #### A DDONUAPLUS #### [place] [address] [place] Squamous Epithelial Cell,Urine 3-4 High 0-2 [facility] Comment on above: Order Comment: Name Collection Type:: Clean-Voided Midstream Performed By: #### A DDONUAPLUS #### [address] [place] [address] [place] Urobilinogen,Urine Normal Normal Normal [facility] Comment on above: Order Comment: Name Collection Type:: Clean-Voided Midstream Performed By: #### A DDONUAPLUS #### [facility] [address] [place], [place] [id number] [place] WBC,Urine 1-2 Normal 0-4 [facility] Comment on above: Order Comment: Name Collection Type:: Clean-Voided Midstream Performed By: #### A DDONUAPLUS #### [facility] [address] [place], [place] [id number] RUST ECG 12 lead ECGon 03-20-2021 ECG 12 lead ECG [facility] [address] Electrocardiograph Report Signed Patient: Yeyo Avila MR#: [id number] : 1955 Acct:[id number] Age/Sex: 65 / F ADM Date: 03/19/21 Loc: ER Room: Type: [facility] ER Attending Dr: Ordering Provider: Ismael Santillan [...] MD 03/19/212224 Signed By: 03/21/21 0905 Normal [facility] XR chest 2V*on 03-20-2021 XR chest 2V* [facility] [place] [address] XRay Report Signed Patient: Yeyo Avila MR#: [id number] : 1955 Acct:[id number] Age/Sex: 65 / F ADM Date: 03/19/21 Loc: ER Room: Type: [facility] ER Attending Dr: Ordering Provider: Ismael Santillan [...] Martinez Jr., M.D.03/20/2021 8:53 AM Dictation Location: [place] [address] Transcribed By: [facility] 03/20/21 0853 Dictated By: Gavin Martinez Jr, MD 03/20/21 0852 Signed By: 03/20/21 0853 Normal [facility] B-Type Natriuretic Peptideon 03-19-2021 Natriuretic peptide B (Bld) [Mass/Vol] 30.0 pg/mL Normal 5-100 [facility] Comment on above: Result Comment: PERF ORMED BY: [place] [address] PATHOLOGIST AIR BRAKE WORKER WALDO WANG M.D. Performed By: #### B KNIFE SETTER ASSEMBLER, PTT, CKMB, LIPASE, CK, TROP, CBC, PT, CMP #### [address] Complete Blood Count Auto Di ffon 03-19-2021 Basophils (Bld) [#/Vol] 0.2 10*3/uL Normal 0.0-0.2 [facility] Comment on above: Result Comment: PERF ORMED BY: [place] [address] PATHOLOGIST AIR BRAKE WORKER WALDO WANG M.D. Performed By: #### B KNIFE SETTER ASSEMBLER, PTT, CKMB, LIPASE, CK, TROP, CBC, PT, CMP #### [address] Basophils/100 WBC (Bld) 0.9 % Normal . [facility] Comment on above: Performed By: #### B KNIFE SETTER ASSEMBLER, PTT, CKMB, LIPASE, CK, TROP, CBC, PT, CMP #### [address] Eosinophils (Bld) [#/Vol] 0.2 10*3/uL Normal 0.0-0.45 [facility] Comment on above: Performed By: #### B KNIFE SETTER ASSEMBLER, PTT, CKMB, LIPASE, CK, TROP, CBC, PT, CMP #### [address] Eosinophils/100 WBC (Bld) 1.1 % Normal . [facility] Comment on above: Performed By: #### B KNIFE SETTER ASSEMBLER, PTT, CKMB, LIPASE, CK, TROP, CBC, PT, CMP #### [address] Erythrocyte distribution width (RBC) [Ratio] 13.7 % Normal 11.9-15.3 [facility] Comment on above: Performed By: #### B KNIFE SETTER ASSEMBLER, PTT, CKMB, LIPASE, CK, TROP, CBC, PT, CMP #### [address] Hematocrit (Bld) [Volume fraction] 43.7 % Normal 34.0-46.4 [facility] Comment on above: Performed By: #### B KNIFE SETTER ASSEMBLER, PTT, CKMB, LIPASE, CK, TROP, CBC, PT, CMP #### [address] Hemoglobin (Bld) [Mass/Vol] 14.8 g/dL Normal 11.8-15.4 [facility] Comment on above: Performed By: #### B KNIFE SETTER ASSEMBLER, PTT, CKMB, LIPASE, CK, TROP, CBC, PT, CMP #### [address] Lymphocytes (Bld) [#/Vol] 4.2 10*3/uL Normal 1.00-4.8 [facility] Comment on above: Performed By: #### B KNIFE SETTER ASSEMBLER, PTT, CKMB, LIPASE, CK, TROP, CBC, PT, CMP #### [address] Lymphocytes/100 WBC (Bld) 23.0 % Normal . [facility] Comment on above: Performed By: #### B KNIFE SETTER ASSEMBLER, PTT, CKMB, LIPASE, CK, TROP, CBC, PT, CMP #### [address] MCH (RBC) [Entitic mass] 29.8 pg Normal 24.7-34.3 [facility] Comment on above: Performed By: #### B KNIFE SETTER ASSEMBLER, PTT, CKMB, LIPASE, CK, TROP, CBC, PT, CMP #### [address] MCV (RBC) [Entitic vol] 87.7 fL Normal 80-100 [facility] Comment on above: Performed By: #### B KNIFE SETTER ASSEMBLER, PTT, CKMB, LIPASE, CK, TROP, CBC, PT, CMP #### [address] Mean Corpuscular HGB Conc 33.9 g/dL Normal 32.0-35.0 [facility] Comment on above: Performed By: #### B KNIFE SETTER ASSEMBLER, PTT, CKMB, LIPASE, CK, TROP, CBC, PT, CMP #### [address] Monocytes (Bld) [#/Vol] 1.1 10*3/uL High 0.0-0.8 [facility] Comment on above: Performed By: #### B KNIFE SETTER ASSEMBLER, PTT, CKMB, LIPASE, CK, TROP, CBC, PT, CMP #### [address] Monocytes/100 WBC (Bld) 6.1 % Normal . [facility] Comment on above: Performed By: #### B KNIFE SETTER ASSEMBLER, PTT, CKMB, LIPASE, CK, TROP, CBC, PT, CMP #### [address] Neutrophils (Bld) [#/Vol] 12.4 10*3/uL High 1.8-7.7 [facility] Comment on above: Performed By: #### B KNIFE SETTER ASSEMBLER, PTT, CKMB, LIPASE, CK, TROP, CBC, PT, CMP #### [address] Neutrophils/100 WBC (Bld) 68.9 % Normal . [facility] Comment on above: Performed By: #### B KNIFE SETTER ASSEMBLER, PTT, CKMB, LIPASE, CK, TROP, CBC, PT, CMP #### [address] Nucleated RBC/100 WBC (Bld) [Ratio] 0.2 % Normal 0-0.5 [facility] Comment on above: Performed By: #### B KNIFE SETTER ASSEMBLER, PTT, CKMB, LIPASE, CK, TROP, CBC, PT, CMP #### [address] Platelet mean volume (Bld) [Entitic vol] 9.2 fL Normal 6.3-10.7 [facility] Comment on above: Performed By: #### B KNIFE SETTER ASSEMBLER, PTT, CKMB, LIPASE, CK, TROP, CBC, PT, CMP #### [address] Platelets (Bld) [#/Vol] 340 10*3/uL Normal 150-450 [facility] Comment on above: Performed By: #### B KNIFE SETTER ASSEMBLER, PTT, CKMB, LIPASE, CK, TROP, CBC, PT, CMP #### [address] RBC (Bld) [#/Vol] 4.98 10*6/uL Normal 3.60-5.00 [facility] Comment on above: Performed By: #### B KNIFE SETTER ASSEMBLER, PTT, CKMB, LIPASE, CK, TROP, CBC, PT, CMP #### [facility] [address] WBC (Bld) [#/Vol] 18.0 10*3/uL High 4.5-11.0 [facility] Comment on above: Performed By: #### B KNIFE SETTER ASSEMBLER, PTT, CKMB, LIPASE, CK, TROP, CBC, PT, CMP #### [facility] [address] Comprehensive Metabolic Pane talia 03-19-2021 Albumin [Mass/Vol] 4.7 g/dL Normal 3.2-5.5 [facility] Comment on above: Performed By: #### B KNIFE SETTER ASSEMBLER, PTT, CKMB, LIPASE, CK, TROP, CBC, PT, CMP #### [address] Albumin/Globulin [Mass ratio] 1.4 {ratio} Normal [facility] Comment on above: Performed By: #### B KNIFE SETTER ASSEMBLER, PTT, CKMB, LIPASE, CK, TROP, CBC, PT, CMP #### [address] ALP [Catalytic activity/Vol] 83 U/L Normal 32-92 [facility] Comment on above: Performed By: #### B KNIFE SETTER ASSEMBLER, PTT, CKMB, LIPASE, CK, TROP, CBC, PT, CMP #### [address] ALT [Catalytic activity/Vol] 15 U/L Normal 10-60 [facility] Comment on above: Performed By: #### B KNIFE SETTER ASSEMBLER, PTT, CKMB, LIPASE, CK, TROP, CBC, PT, CMP #### [address] AST [Catalytic activity/Vol] 15 U/L Normal 10-42 [facility] Comment on above: Performed By: #### B KNIFE SETTER ASSEMBLER, PTT, CKMB, LIPASE, CK, TROP, CBC, PT, CMP #### [address] Bilirubin [Mass/Vol] 1.6 mg/dL High 0.3-1.2 [facility] Comment on above: Result Comment: Samp les from patients who have taken Naproxen have shown spurious elevation in Total Bilirubin levels. A metabolite of Naproxen, O-desmethylnaproxen, has been shown to interfere with the Jendrassik-Grof method for measuring Total Bilirubin. Performed By: #### B KNIFE SETTER ASSEMBLER, PTT, CKMB, LIPASE, CK, TROP, CBC, PT, CMP #### [facility] [address] Calcium [Mass/Vol] 10.1 mg/dL Normal 8.2-10.2 [facility] Comment on above: Performed By: #### B KNIFE SETTER ASSEMBLER, PTT, CKMB, LIPASE, CK, TROP, CBC, PT, CMP #### [facility] [address] Chloride [Moles/Vol] 99 mmol/L Normal 95-114 [facility] Comment on above: Performed By: #### B KNIFE SETTER ASSEMBLER, PTT, CKMB, LIPASE, CK, TROP, CBC, PT, CMP #### [facility] [address] CO2 [Moles/Vol] 23.1 mmol/L Normal 22.0-30.0 [facility] Comment on above: Performed By: #### B KNIFE SETTER ASSEMBLER, PTT, CKMB, LIPASE, CK, TROP, CBC, PT, CMP #### [facility] [address] Creatinine [Mass/Vol] 1.07 mg/dL High 0.44-1.03 [facility] Comment on above: Performed By: #### B KNIFE SETTER ASSEMBLER, PTT, CKMB, LIPASE, CK, TROP, CBC, PT, CMP #### [facility] [address] Creatinine Clr Calc Pharmacy 64.26 [facility] Comment on above: Performed By: #### B KNIFE SETTER ASSEMBLER, PTT, CKMB, LIPASE, CK, TROP, CBC, PT, CMP #### [facility] [address] Estimated GFR ( [place] > 60 Normal [facility] Comment on above: Result Comment: GFR estimated reference range: According to KDOQI guidelines, <60 ml/min/1.73m2 is sufficient to diagnose a patient with chronic kidney disease. Performed By: #### B KNIFE SETTER ASSEMBLER, PTT, CKMB, LIPASE, CK, TROP, CBC, PT, CMP #### [facility] [address] Estimated GFR (Non- Am 52 [facility] Comment on above: Performed By: #### B KNIFE SETTER ASSEMBLER, PTT, CKMB, LIPASE, CK, TROP, CBC, PT, CMP #### [address] Globulin (S) [Mass/Vol] 3.3 g/dL [facility] Comment on above: Performed By: #### B KNIFE SETTER ASSEMBLER, PTT, CKMB, LIPASE, CK, TROP, CBC, PT, CMP #### [address] Glucose [Mass/Vol] 264 mg/dL High 70-100 [facility] Comment on above: Result Comment: [facility] Glucose Reference Range is dependent on time and content of last meal. Glucose of more than 200 mg/dL in a nonstressed, ambulatory subject supports the diagnosis of Diabetes Mellitus. ADA recommended reference range Performed By: #### B KNIFE SETTER ASSEMBLER, PTT, CKMB, LIPASE, CK, TROP, CBC, PT, CMP #### [address] Potassium [Moles/Vol] 3.8 mmol/L Normal 3.5-5.1 [facility] Comment on above: Performed By: #### B KNIFE SETTER ASSEMBLER, PTT, CKMB, LIPASE, CK, TROP, CBC, PT, CMP #### [address] Protein [Mass/Vol] 8.0 g/dL High 6.1-7.9 [facility] Comment on above: Performed By: #### B KNIFE SETTER ASSEMBLER, PTT, CKMB, LIPASE, CK, TROP, CBC, PT, CMP #### [address] Sodium [Moles/Vol] 137 mmol/L Normal 136-146 [facility] Comment on above: Performed By: #### B KNIFE SETTER ASSEMBLER, PTT, CKMB, LIPASE, CK, TROP, CBC, PT, CMP #### [address] Urea nitrogen [Mass/Vol] 29 mg/dL High 9-23 [facility] Comment on above: Performed By: #### B KNIFE SETTER ASSEMBLER, PTT, CKMB, LIPASE, CK, TROP, CBC, PT, CMP #### [facility] [address] Creatine Kinaseon 03-19-2021 CK [Catalytic activity/Vol] 42 U/L Normal 22-269 [facility] Comment on above: Performed By: #### B KNIFE SETTER ASSEMBLER, PTT, CKMB, LIPASE, CK, TROP, CBC, PT, CMP #### [address] Creatinine Kinase MBon 03-19 CK.MB [Mass/Vol] 1.3 ng/mL Normal 0.6-6.3 [facility] Comment on above: Performed By: #### B KNIFE SETTER ASSEMBLER, PTT, CKMB, LIPASE, CK, TROP, CBC, PT, CMP #### [address] CKMB Relative Index 3.0 % High 0.00-2.50 [facility] Comment on above: Performed By: #### B KNIFE SETTER ASSEMBLER, PTT, CKMB, LIPASE, CK, TROP, CBC, PT, CMP #### [address] ECG 12 lead ECGon 03-19-2021 ECG 12 lead ECG [facility] [place] [address] [place] [address] Electrocardiograph Report Signed Patient: Yeyo Avila MR#: [id number] : 1955 Acct:[id number] Age/Sex: 65 / F ADM Date: 03/19/21 Loc: ER Room: Type: [facility] ER Attending Dr: Ordering Provider: Ismael Santillan [...] MD 03/19/212112 Signed By: 03/21/21 09 Normal [facility] Lipaseon 03-19-2021 Lipase [Catalytic activity/Vol] 21.0 U/L Low 22-51 [facility] Comment on above: Result Comment: PERF ORMED BY: [place] [id number] PATHOLOGIST AIR BRAKE WORKER WALDO WANG M.D. Performed By: #### B KNIFE SETTER ASSEMBLER, PTT, CKMB, LIPASE, CK, TROP, CBC, PT, CMP #### [address] Partial Thromboplastin Timeo n 03-19-2021 aPTT Coag (Bld) [Time] 26.1 s Normal 25.1-36.5 [facility] Comment on above: Result Comment: PERF ORMED BY: [place] [address] PATHOLOGIST AIR BRAKE WORKER WALDO WANG M.D. Performed By: #### B KNIFE SETTER ASSEMBLER, PTT, CKMB, LIPASE, CK, TROP, CBC, PT, CMP #### [address] Prothrombin Time INRon 03-19 INR Coag (PPP) [Relative time] 1.2 {INR} Normal [facility] Comment on above: Result Comment: INR Therapeutic [...] 3 - 4.5 Performed By: #### B KNIFE SETTER ASSEMBLER, PTT, CKMB, LIPASE, CK, TROP, CBC, PT, CMP #### [facility] [address] PT Coag (PPP) [Time] 13.6 s High 9.0-12.9 [facility] Comment on above: Performed By: #### B KNIFE SETTER ASSEMBLER, PTT, CKMB, LIPASE, CK, TROP, CBC, PT, CMP #### [facility] [address] Troponin I(TnI)on 03-19-2021 Troponin I.cardiac [Mass/Vol] ng/mL Normal 0-0.02 [facility] Comment on above: Result Comment: EBONY NM Cut off value > or equal to 0.03 ng/mL in conjunction with clinical conditions of myocardial infarction. (www.escardio.org/guidelines) PERFORMED BY: [place] [address] PATHOLOGIST AIR BRAKE WORKER WALDO WANG M.D. Performed By: #### B KNIFE SETTER ASSEMBLER, PTT, CKMB, LIPASE, CK, TROP, CBC, PT, CMP #### [place] [id number] [place]UST Basic Metab w/rfx MGon 09-01 (cont.) Normal [facility] Comment on above: Result Comment: Aver age GFR for 60-69 years old: 85 mL/min/1.73sq m Chronic Kidney Disease: <60 mL/min/1.73sq m Kidney failure: <15 mL/min/1.73sq m eGFR calculated using average adult body mass. Additional eGFR calculator available at: http://www.[employer]/multiple_crcl_2012.htm Performed By: #### E RTPF #### [address] [address] [employer] Worker: Dheeraj Garcia MD Anion gap [Moles/Vol] 13 mmol/L Normal 9-17 [facility] Comment on above: Performed By: #### E RTPF #### [address] [address] [employer] Worker: Dheeraj Garcia MD Calcium [Mass/Vol] 8.8 mg/dL Normal 8.6-10.4 [facility] Comment on above: Performed By: #### E RTPF #### [address] [address] [employer] Worker: Dheeraj Garcia MD Chloride [Moles/Vol] 106 mmol/L Normal 98-107 [facility] Comment on above: Performed By: #### E RTPF #### [address] [address] [employer] Worker: Dheeraj Garcia MD CO2 [Moles/Vol] 21 mmol/L Normal 20-31 [facility] Comment on above: Performed By: #### E RTPF #### [address] [address] [employer] Worker: Dheeraj Garcia MD Creatinine [Mass/Vol] 0.53 mg/dL Normal 0.50-0.90 [facility] Comment on above: Performed By: #### E RTPF #### [address] [address] [employer] Worker: Dheeraj Garcia MD GFR, Amer >60 Normal >60 [facility] Comment on above: Performed By: #### E RTPF #### [address] [address] [employer] Worker: Dheeraj Garcia MD GFR,non Amer >60 Normal >60 [facility] Comment on above: Performed By: #### E RTPF #### [address] [address] [employer] Worker: Dheeraj Garcia MD Glucose [Mass/Vol] 169 mg/dL High 70-99 [facility] Comment on above: Performed By: #### E RTPF #### [address] [address] [employer] Worker: Dheeraj Gacria MD Potassium [Moles/Vol] 4.0 mmol/L Normal 3.7-5.3 [facility] Comment on above: Performed By: #### E RTPF #### [address] [address] [employer] Worker: Dheeraj Garcia MD Sodium [Moles/Vol] 140 mmol/L Normal 135-144 [facility] Comment on above: Performed By: #### E RTPF #### [address] [address] [employer] Worker: Dheeraj Garcia MD Urea nitrogen [Mass/Vol] 10 mg/dL Normal 8-23 [facility] Comment on above: Performed By: #### E RTPF #### [address] [address] [employer] Worker: Dheeraj Garcia MD BUN/CRE Ratio NOT REPORTED Normal 9-20 [facility] Comment on above: Performed By: #### E RTPF #### [address] [address] [employer] Worker: Dheeraj Garcia MD Staging: NOT REPORTED Normal [facility] Comment on above: Performed By: #### E RTPF #### [address] [address] [employer] Worker: Dheeraj Garcia MD Basic Metabolic Panel w/ Ref martín to MGon 09-01-2020 Anion gap [Moles/Vol] 13 mmol/L 9 - 17 mmol/L [place] Bun/Cre Ratio NOT REPORTED [place], [place] Calcium [Mass/Vol] 8.8 mg/dL 8.6 - 10. 4 mg/dL [place] Chloride [Moles/Vol] 106 mmol/L 98 - 10 7 mmol/L [place] CO2 [Moles/Vol] 21 mmol/L 20 - 31 mmol/L [place] Creatinine [Mass/Vol] 0.53 mg/dL 0.5 - 0.9 mg/dL [place] GFR >60 >60 mL/min [place] GFR Non- >60 >60 mL/min [place] GFR/1.73 sq M predicted among non-blacks MDRD (S/P/Bld) [Vol rate/Area] [place] Comment on above: Average GFR for 60-6 9 years old: 85 mL/min/1.73sq m Chronic Kidney Disease: <60 mL/min/1.73sq m Kidney failure: <15 mL/min/1.73sq m eGFR calculated using average adult body mass. Additional eGFR calculator available at: http://www.[employer]/multiple_crcl_2012.htm GFR/1.73 sq M predicted among non-blacks MDRD (S/P/Bld) [Vol rate/Area] NOT REPORTED [place] Glucose [Mass/Vol] 169 mg/dL High 70 - 99 mg/dL [place] Interpretation and review of laboratory results Abnormal [place] Potassium [Moles/Vol] 4.0 mmol/L 3.7 - 5.3 mmol/L [place] Sodium [Moles/Vol] 140 mmol/L 135 - 144 mmol/L [place] Urea nitrogen [Mass/Vol] 10 mg/dL 8 - 23 mg/dL [place] CBC auto differentialon 08-17 Basophils (Bld) [#/Vol] 0.10 10*3/uL [place] Basophils/100 WBC (Bld) 1 % 0 - 2 % [place] Differential Type NOT REPORTED [place] Eosinophils (Bld) [#/Vol] 0.25 10*3/uL [place] Eosinophils/100 WBC (Bld) 3 % 1 - 4 % [place] Erythrocyte distribution width (RBC) [Ratio] 14.0 % 11.8 - 14.4 % [place] Hematocrit (Bld) [Volume fraction] 40.7 % 36.3 - 47.1 % [place] Hemoglobin (Bld) [Mass/Vol] 12.7 g/dL 11.9 - 15.1 g/dL [place] Immature granulocytes (Bld) [#/Vol] 0.06 10*3/uL [place] Immature granulocytes (Bld) [#/Vol] 1 % High 0 [place] Interpretation and review of laboratory results Abnormal [place] Lymphocytes (Bld) [#/Vol] 2.12 10*3/uL [place] Lymphocytes/100 WBC (Bld) 23 % Low 24 - 43 % [place] MCH (RBC) [Entitic mass] 28.1 pg 25.2 - 33.5 pg [place] MCHC (RBC) [Mass/Vol] 31.2 g/dL 28.4 - 34.8 g/dL [place] MCV (RBC) [Entitic vol] 90.0 fL 82.6 - 102.9 fL [place] Monocytes (Bld) [#/Vol] 0.68 10*3/uL [place] Monocytes/100 WBC (Bld) 7 % 3 - 12 % [place] Platelet mean volume (Bld) [Entitic vol] 10.6 fL 8.1 - 13.5 fL [place] Platelets (Bld) [#/Vol] NOT REPORTED [place] Platelets (Bld) [#/Vol] 251 10*3/uL [place] RBC (Bld) [#/Vol] 4.52 10*6/uL 3.95 - 5.1 1 m/uL [place] RBC morphology finding Nom (Bld) NOT REPORTED [place] Segmented neutrophils/100 WBC (Bld) 65 % 36 - 65 % [place] Segs Absolute 6.18 [place], [place] WBC (Bld) [#/Vol] 0.0 10*3/uL 0.0 per 10 0 WBC [place] WBC (Bld) [#/Vol] 9.4 10*3/uL [place] WBC Morphology NOT REPORTED [place] CBC with Diffon 09-01-2020 Abs. Basophil 0.10 k/uL Normal 0.00-0.20 [facility] Comment on above: Performed By: #### C DP, HCG, ALCB, BMPX, LIPR, GLYHGB #### [facility] [address] [place] [id number] [employer] Worker: Dheeraj Garcia MD Abs.Imm.Granulocyte 0.06 k/uL Normal 0.00-0.30 [facility] Comment on above: Performed By: #### C DP, HCG, ALCB, BMPX, LIPR, GLYHGB #### [facility] [address] [place] [address] [id number] [employer] Worker: Dheeraj Garcia MD Abs.Neutrophil (Seg) 6.18 k/uL Normal 1.50-8.10 [facility] Comment on above: Performed By: #### C DP, HCG, ALCB, BMPX, LIPR, GLYHGB #### [facility] [address] [place] [id number] [employer] Worker: Dheeraj Garcia MD Basophils/100 WBC (Bld) 1 % Normal 0-2 [facility] Comment on above: Performed By: #### C DP, HCG, ALCB, BMPX, LIPR, GLYHGB #### [facility] [address] [place] [address] [id number] [employer] Worker: Dheeraj Garcia MD Eosinophils (Bld) [#/Vol] 0.25 10*3/uL Normal 0.00-0.44 [facility] Comment on above: Performed By: #### C DP, HCG, ALCB, BMPX, LIPR, GLYHGB #### [place] [address] [employer] Worker: Dheeraj Garcia MD Eosinophils/100 WBC (Bld) 3 % Normal 1-4 [facility] Comment on above: Performed By: #### C DP, HCG, ALCB, BMPX, LIPR, GLYHGB #### [place] [address] [employer] Worker: Dheeraj Garcia MD Erythrocyte distribution width (RBC) [Ratio] 14.0 % Normal 11.8-14.4 [facility] Comment on above: Performed By: #### C DP, HCG, ALCB, BMPX, LIPR, GLYHGB #### [place] [address] [employer] Worker: Dheeraj Garcia MD Hematocrit (Bld) [Volume fraction] 40.7 % Normal 36.3-47.1 [facility] Comment on above: Performed By: #### C DP, HCG, ALCB, BMPX, LIPR, GLYHGB #### [place] [address] [employer] Worker: Dheeraj Garcia MD Hemoglobin (Bld) [Mass/Vol] 12.7 g/dL Normal 11.9-15.1 [facility] Comment on above: Performed By: #### C DP, HCG, ALCB, BMPX, LIPR, GLYHGB #### [facility] [address] [place] [address] [employer]iscuit Factory Worker: Dheeraj Garcia MD Immature granulocytes (Bld) [#/Vol] 1 % High 0 [facility] Comment on above: Performed By: #### C DP, HCG, ALCB, BMPX, LIPR, GLYHGB #### [address] [address] [employer] Factory Worker: Dheeraj Garcia MD Lymphocytes (Bld) [#/Vol] 2.12 10*3/uL Normal 1.10-3.70 [facility] Comment on above: Performed By: #### C DP, HCG, ALCB, BMPX, LIPR, GLYHGB #### [address] [address] [employer] Worker: Dheeraj Garcia MD Lymphocytes/100 WBC (Bld) 23 % Low 24-43 [facility] Comment on above: Performed By: #### C DP, HCG, ALCB, BMPX, LIPR, GLYHGB #### [address] [address] [employer] Worker: Dheeraj Garcia MD MCH (RBC) [Entitic mass] 28.1 pg Normal 25.2-33.5 [facility] Comment on above: Performed By: #### C DP, HCG, ALCB, BMPX, LIPR, GLYHGB #### [address] [address] [employer] Worker: Dheeraj Garcia MD MCHC (RBC) [Mass/Vol] 31.2 g/dL Normal 28.4-34.8 [facility] Comment on above: Performed By: #### C DP, HCG, ALCB, BMPX, LIPR, GLYHGB #### [facility] [address] [place] [address] [employer] Worker: Dheeraj Garcia MD MCV (RBC) [Entitic vol] 90.0 fL Normal 82.6-102.9 [facility] Comment on above: Performed By: #### C DP, HCG, ALCB, BMPX, LIPR, GLYHGB #### [facility] [address] [place] [address] [employer] Worker: Dheeraj Garcia MD Monocytes (Bld) [#/Vol] 0.68 10*3/uL Normal 0.10-1.20 [facility] Comment on above: Performed By: #### C DP, HCG, ALCB, BMPX, LIPR, GLYHGB #### [place] [address] [employer] Worker: Dheeraj Garcia MD Monocytes/100 WBC (Bld) 7 % Normal 3-12 [facility] Comment on above: Performed By: #### C DP, HCG, ALCB, BMPX, LIPR, GLYHGB #### [place] [address] [employer] Worker: Dheeraj Garcia MD Neutrophil (Seg) 65 % Normal 36-65 [facility] Comment on above: Performed By: #### C DP, HCG, ALCB, BMPX, LIPR, GLYHGB #### [place] [address] [employer] Worker: Dheeraj Garcia MD NRBC Automated 0.0 per 100 WBC Normal 0.0 [facility] Comment on above: Performed By: #### C DP, HCG, ALCB, BMPX, LIPR, GLYHGB #### [place] [address] [employer] Worker: Dheeraj Garcia MD Platelet mean volume (Bld) [Entitic vol] 10.6 fL Normal 8.1-13.5 [facility] Comment on above: Performed By: #### C DP, HCG, ALCB, BMPX, LIPR, GLYHGB #### [place] [address] [employer] Worker: Dheeraj Garcia MD Platelets (Bld) [#/Vol] 251 10*3/uL Normal 138-453 [facility] Comment on above: Performed By: #### C DP, HCG, ALCB, BMPX, LIPR, GLYHGB #### [address] [address] [employer] Worker: Dheeraj Garcia MD RBC (Bld) [#/Vol] 4.52 10*6/uL Normal 3.95-5.11 [facility] Comment on above: Performed By: #### C DP, HCG, ALCB, BMPX, LIPR, GLYHGB #### [facility] [address] [place] [address] [employer] Worker: Dheeraj Garcia MD WBC (Bld) [#/Vol] 9.4 10*3/uL Normal 3.5-11.3 [facility] Comment on above: Performed By: #### C DP, HCG, ALCB, BMPX, LIPR, GLYHGB #### [address] [address] [employer] Worker: Dheeraj Garcia MD Auto Diff Performed NOT REPORTED Normal [facility] Comment on above: Performed By: #### C DP, HCG, ALCB, BMPX, LIPR, GLYHGB #### [address] [address] [employer] Worker: Dheeraj Garcia MD Platelets (Bld) [#/Vol] NOT REPORTED Normal [facility] Comment on above: Performed By: #### C DP, HCG, ALCB, BMPX, LIPR, GLYHGB #### [address] [address] [employer] Worker: Dheeraj Garcia MD RBC morphology finding Nom (Bld) NOT REPORTED Normal [facility] Comment on above: Performed By: #### C DP, HCG, ALCB, BMPX, LIPR, GLYHGB #### [address] [address] [employer] Worker: Dheeraj Garcia MD WBC Morphology NOT REPORTED Normal [facility] Comment on above: Performed By: #### C DP, HCG, ALCB, BMPX, LIPR, GLYHGB #### [facility] [address] [place] [address] [employer] Worker: Dheeraj Garcia MD Echo Completeon 09-01-2020 [place], pn Incoming Cardio Results From [facility] - 09/01/2020 3:37 PM EDT Transthoracic Echocardiography Report (TTE) Patient Name MARGARITA Date of Study 09/01/2020 YEYO Date of 1955 Gender Female Age 64 year(s) Race Room Number 0234 Height: 65 inch, 165.1 cm Corporate ID [id number] Weight: 232 pounds, 105.2 kg # Patient Acct [id number] BSA: 2.11 m^2 BMI: 38.61 # kg/m^2 MR # [id number] Management Planner Pérez Lao Interpreting Physician Abundio Aguilar Fellow Referring Nurse Practitioner Interpreting Referring Physician Moisés Rodríguez Fellow Type of Study TTE procedure:2D Echocardiogram, M-Mode, Doppler, Color Doppler, Bubble Study. Procedure Date Date: 09/01/2020 Start: 07:38 AM Study Location: [facility] Technical Quality: Fair visualization Comments:Syncope, [...] Wall E' velocity:0.07 m/s Lateral Wall E/E':8.8 [place] Transthoracic Echocardiography Report (TTE) Patient Name DENDINGER Date of Study 09/01/2020 YEYO Date of 1955 Gender Female Age 64 year(s) Race Room Number 0234 Height: 65 inch, 165.1 cm Corporate ID [id number] Weight: 232 pounds, 105.2 kg # Patient Acct [id number] BSA: 2.11 m^2 BMI: 38.61 # kg/m^2 MR # [id number] Management Planner GarfieldRimmaPérez Interpreting Physician Abundio Aguilar Fellow Referring Nurse Practitioner Interpreting Referring Physician Moisés Rodríguez Fellow Type of Study TTE procedure:2D Echocardiogram, M-Mode, Doppler, Color Doppler, Bubble Study. Procedure Date Date: 09/01/2020 Start: 07:38 AM Study Location: [facility] Technical Quality: Fair visualization Comments:Syncope, [...] Wall E' velocity:0.07 m/s Lateral Wall E/E':8.8 [place] Ethanolon 09-01-2020 Ethanol [Mass/Vol] mg/dL <10 mg/dL [place] Ethanol percent <0.010 <0.010 % [facility] [place] Eth[facility] Alcoholon 09-01-2020 Ethanol [Mass/Vol] mg/dL Normal <10 [facility] Comment on above: Performed By: #### E RTPF #### [address] [id number] [employer] Worker: Dheeraj Garcia MD Ethanol percent <0.010 Normal <0.010 [facility] Comment on above: Performed By: #### E RTPF #### [address] [address] [employer] Worker: Dheeraj Garcia MD HCG Qualitative, Serumon hCG Qual Negative NEGATIVE [place] Comment on above: Specimens with hCG l evels near the threshold of the test (25 mIU/mL) may give a negative or indeterminate result. In such cases, another test should be performed with a new specimen in 48-72 hours. If early is suspected clinically in this setting, correlation with quantitative serum b-hCG level is suggested. [employer] has confirmed the use of plasma for this test. This has not been cleared or approved by the U.S. Food and Drug Administration. The FDA has determined that such clearance is not necessary. HCG Screen, Bloodon 09-01-20 20 HCG Qn Negative Normal NEG [facility] Comment on above: Result Comment: Spec imens with hCG levels near the threshold of the test (25 mIU/mL) may give a negative or indeterminate result. In such cases, another test should be performed with a new specimen in 48-72 hours. If early is suspected clinically in this setting, correlation with quantitative serum b-hCG level is suggested. [facility] confirmed the use of plasma for this test. This has not been cleared or approved by the U.S. Food and Drug Administration. The FDA has determined that such clearance is not necessary. Performed By: #### E RTPF #### [facility] [address] [place] [address] [id number] [employer] Worker: Dheeraj Garcia MD Hematologyon 09-01-2020 WBC (Bld) [#/Vol] DUPLICATE ORDER per 100 WBC M [place] Hemoglobin A1Con 09-01-2020 HbA1c (Bld) [Mass fraction] 151 mg/dL Normal [facility] Comment on above: Result Comment: The ADA and AACC recommend providing the estimated average glucose result to permit better patient understanding of their HBA1c result. Performed By: #### E RTPF #### [address] [id number] [employer] Worker: Dheeraj Garcia MD HbA1c (Bld) [Mass fraction] 6.9 % High 4.0-6.0 [facility] Comment on above: Performed By: #### E RTPF #### [address] [id number] [employer] Worker: Dheerja Garcia MD Hemoglobin A1con 09-01-2020 Glucose [Mass/Vol] 151 mg/dL [place] Comment on above: The ADA and AACC rec ommend providing the estimated average glucose result to permit better patient understanding of their HBA1c result. HbA1c (Bld) [Mass fraction] 6.9 % High 4 - 6 % [place] Interpretation and review of laboratory results Abnormal [place] Lipid Profileon 09-01-2020 Cholesterol [Mass/Vol] 123 mg/dL Normal <200 [facility] Comment on above: Result Comment: Cholesterol Guidelines: <200 Desirable 200-240 Borderline >240 Undesirable Performed By: #### E RTPF #### [address] [place] [address] [employer] Worker: Dheeraj Garcia MD Cholesterol in HDL [Mass/Vol] 43 mg/dL Normal >40 [facility] Comment on above: Result Comment: HDL Guidelines: <40 Undesirable 40-59 Borderline >59 Desirable Performed By: #### E RTPF #### [facility] [address] [place] [address] [employer] Worker: Dheeraj Garcia MD Cholesterol in LDL [Mass/Vol] 50 mg/dL Normal 0-130 [facility] Comment on above: Result Comment: LDL Guidelines: <100 Desirable 100-129 Near to/above Desirable 130-159 Borderline >159 Undesirable Direct (measured) LDL and calculated LDL are not interchangeable tests. Performed By: #### E RTPF #### [facility] [address] [place] [address] [employer] Worker: Dheeraj Garcia MD Cholesterol.total/Chol esterol in HDL [Mass ratio] 2.9 {ratio} Normal <5 [facility] Comment on above: Performed By: #### E RTPF #### [facility] [address] [place] [address] [employer] Worker: Dheeraj Garcia MD Triglyceride [Mass/Vol] 149 mg/dL Normal <150 [facility] Comment on above: Result Comment: Triglyceride Guidelines: <150 Desirable 150-199 Borderline 200-499 High >499 Very high Based on AHA Guidelines for fasting triglyceride, August 2012. Performed By: #### E RTPF #### [facility] [address] [place] [address] [employer] Worker: Dheeraj Garcia MD Cholesterol in VLDL [Mass/Vol] NOT REPORTED Normal - [facility] Comment on above: Performed By: #### E RTPF #### [facility] [address] [place] [address] [employer] Worker: Dheeraj Garcia MD Lipid panel - fastingon 08-17 Cholesterol [Mass/Vol] 123 mg/dL <200 [place] Comment on above: Cholesterol Guidelines: <200 Desirable 200-240 Borderline >240 Undesirable Cholesterol in HDL [Mass/Vol] 43 mg/dL >40 [place] Comment on above: HDL Guidelines: <40 Undesirable 40-59 Borderline >59 Desirable Cholesterol in LDL [Mass/Vol] 50 mg/dL 0 - 130 mg/dL [place] Comment on above: LDL Guidelines: <100 Desirable 100-129 Near to/above Desirable 130-159 Borderline >159 Undesirable Direct (measured) LDL and calculated LDL are not interchangeable tests. Cholesterol in VLDL [Mass/Vol] NOT REPORTED 1 - 30 mg/dL [place] Cholesterol.total/Chol esterol in HDL [Mass ratio] 2.9 {ratio} <5 [place] Triglyceride [Mass/Vol] 149 mg/dL <150 [place] Comment on above: Triglyceride Guidelines: <150 Desirable 150-199 Borderline 200-499 High >499 Very high Based on AHA Guidelines for fasting triglyceride, August 2012. Metabolic Panelon 09-01-2020 GFR/1.73 sq M predicted among non-blacks MDRD (S/P/Bld) [Vol rate/Area] DUPLICATE ORDER [place] TRAUMA PANELon 09-01-2020 Hubert Test NOT REPORTED [place], [place] Anion gap [Moles/Vol] DUPLICATE ORDER mmol/L [place] aPTT Coag (Bld) [Time] 27.5 s [place] Comment on above: IV Heparin Therapy Range: 48.6-77.8 aPTT Coag (Bld) [Time] 37.0 s [place] Blood Bank Specimen BILL FOR SERVICES PERFORMED [place] Carboxyhemoglobin 0.6 % 0 - 5 % [place], [place] Comment on above: Reference Range: Non-Smokers 0-2% Average Smoker 2-4% Heavy Smoker <10% Chloride [Moles/Vol] DUPLICATE ORDER mmol/L [place] CO2 [Moles/Vol] DUPLICATE ORDER mmol/L [place] Creatinine [Mass/Vol] DUPLICATE ORDER mg/dL [place] Erythrocyte distribution width (RBC) [Ratio] DUPLICATE ORDER % [place] Ethanol [Mass/Vol] Order moved to nearest draw time. [id number] mg/dL [place] Ethanol percent Order moved to nearest draw time. [id number] % [place] FIO2 UNKNOWN [place] GFR DUPLICATE ORDER >60 mL/min [place] GFR Non- DUPLICATE ORDER >60 mL/min [place] Glucose [Mass/Vol] DUPLICATE ORDER mg/dL M [place] hCG Qual Order moved to nearest draw time. [id number] NEGATIVE [place] HCO3, Venous 27.6 mmol/L 24 - 30 mmol/L [place] Hematocrit (Bld) [Volume fraction] DUPLICATE ORDER % [place] Hemoglobin (Bld) [Mass/Vol] DUPLICATE ORDER g/dL [place] INR Coag (PPP) [Relative time] 1.0 {INR} [place] Comment on above: Therapeutic Range: Moderate Anticoagulant Intensity: INR = 2.0-3.0 High Anticoagulant Intensity: INR = 2.5-3.5 Interpretation and review of laboratory results Abnormal [place] MCH (RBC) [Entitic mass] DUPLICATE ORDER pg [place] MCHC (RBC) [Mass/Vol] DUPLICATE ORDER g/dL [place] MCV (RBC) [Entitic vol] DUPLICATE ORDER fL [place] Methemoglobin NOT REPORTED 0 - 1.5 % [place], [place] Mode NOT REPORTED [place] Negative Base Excess, Christo NOT REPORTED 0 - 2 mmol/L [place] NOTIFICATION NOT REPORTED [place] NOTIFICATION TIME NOT REPORTED [place] O2 Device/Flow/% NOT REPORTED [place] Oxygen saturation in Blood 43.1 % Low 60 - 85 % [place] Oxyhemoglobin NOT REPORTED 95 - 98 % [place] pCO2, Christo 48.8 [place] pCO2, Christo, Temp Adj NOT REPORTED [place], [place] Peep/Cpap NOT REPORTED [place] pH, Christo 7.371 [place] pH, Christo, Temp Adj NOT REPORTED [place] Platelet mean volume (Bld) [Entitic vol] DUPLICATE ORDER fL [place] Platelets (Bld) [#/Vol] DUPLICATE ORDER k/uL [place] pO2, Christo 23.6 Low [place] pO2, Christo, Temp Adj NOT REPORTED [place], [place] Positive Base Excess, Christo 2.1 mmol/L High 0 - 2 mmol/L [place] Potassium [Moles/Vol] DUPLICATE ORDER mmol/L [place] PSV NOT REPORTED [place] PT Coag (PPP) [Time] 10.4 s [place] Pt. Position NOT REPORTED [place] RBC (Bld) [#/Vol] DUPLICATE ORDER m/uL [place] Sample Site NOT REPORTED [place], [place] Set Rate NOT REPORTED [place] Sodium [Moles/Vol] DUPLICATE ORDER mmol/L [place], [place] Text for Respiratory NOT REPORTED [place] Total Hb NOT REPORTED 12 - 16 g/dl [place] Total Rate NOT REPORTED [place] Urea nitrogen [Mass/Vol] DUPLICATE ORDER mg/dL [place] NOT REPORTED [place] Trauma Profileon 09-01-2020 aPTT Coag (Bld) [Time] 27.5 s Normal 20.5-30.5 [facility] Comment on above: Result Comment: IV Heparin Therapy Range: 48.6-77.8 Performed By: #### E RTPF #### [facility] [place] [address] [employer] Worker: Dheeraj Garcia MD INR Coag (PPP) [Relative time] 1.0 {INR} Normal [facility] Comment on above: Result Comment: Therapeutic Range: Moderate Anticoagulant Intensity: INR = 2.0-3.0 High Anticoagulant Intensity: INR = 2.5-3.5 Performed By: #### E RTPF #### [address] [address] [employer] Worker: Dheeraj Garcia MD PT Coag (PPP) [Time] 10.4 s Normal 9.0-12.0 [facility] Comment on above: Performed By: #### E RTPF #### [address] [address] [employer] Worker: Dheeraj Garcia MD Body Temp. 37.0 Normal [facility] Comment on above: Performed By: #### E RTPF #### [address] [address] [employer] Worker: Dheeraj Garcia MD Carboxy Hgb 0.6 % Normal 0-5 [facility] Comment on above: Result Comment: Reference Range: Non-Smokers 0-2% Average Smoker 2-4% Heavy Smoker <10% Performed By: #### E RTPF #### [address] [address] [employer] Worker: Dheeraj Garcia MD FIO2 UNKNOWN Normal [facility] Comment on above: Performed By: #### E RTPF #### [address] [address] [employer] Worker: Dheeraj Garcia MD HCO3 (Bld) [Moles/Vol] 27.6 mmol/L Normal 24-30 [facility] Comment on above: Performed By: #### E RTPF #### [address] [address] [employer] Worker: Dheeraj Garcia MD Oxygen (Bld) [Partial pressure] 23.6 mm[Hg] Low 30-50 [facility] Comment on above: Performed By: #### E RTPF #### [place] [address] [employer] Worker: Dheeraj Garcia MD Oxygen saturation in Blood 43.1 % Low 60.0-85.0 [facility] Comment on above: Performed By: #### E RTPF #### [address] [address] [employer] Worker: Dheeraj Garcia MD pCO2 48.8 Normal 39-55 [facility] Comment on above: Performed By: #### E RTPF #### [address] [address] [employer] Worker: Dheeraj Garcia MD pH (Bld) 7.371 [pH] Normal 7.320-7.420 [facility] Comment on above: Performed By: #### E RTPF #### [address] [address] [employer] Worker: Dheeraj Garcia MD Positive Base Excess 2.1 mmol/L High 0.0-2.0 [facility] Comment on above: Performed By: #### E RTPF #### [address] [address] [employer] Worker: Dheeraj Garcia MD Hubert Test NOT REPORTED Normal [facility] Comment on above: Performed By: #### E RTPF #### [address] [address] [employer] Worker: Dheeraj Garcia MD Methemoglobin NOT REPORTED Normal 0.0-1.5 [facility] Comment on above: Performed By: #### E RTPF #### [address] [address] [employer] Worker: Dheeraj Garcia MD Mode NOT REPORTED Normal [facility] Comment on above: Performed By: #### E RTPF #### [address] [address] [employer] Worker: Dheeraj Garcia MD Negative Base Excess NOT REPORTED Normal 0.0-2.0 [facility] Comment on above: Performed By: #### E RTPF #### [address] [address] [employer] Worker: Dheeraj Garcia MD Notification Time NOT REPORTED Normal [facility] Comment on above: Performed By: #### E RTPF #### [address] [address] [employer] Worker: Dheeraj Garcia MD Notification: NOT REPORTED Normal [facility] Comment on above: Performed By: #### E RTPF #### [address] [address] [employer] Worker: Dheeraj Garcia MD O2 Device/Flow/% NOT REPORTED Normal [facility] Comment on above: Performed By: #### E RTPF #### [address] [address] [employer] Worker: Dheeraj Garcia MD Oxyhemoglobin NOT REPORTED Normal 95.0-98.0 [facility] Comment on above: Performed By: #### E RTPF #### [address] [address] [employer] Worker: Dheeraj Garcia MD Pco2 Adj'd for Temp. NOT REPORTED Normal 39-55 [facility] Comment on above: Performed By: #### E RTPF #### [address] [address] [employer] Worker: Dheeraj Garcia MD PEEP/CPAP NOT REPORTED Normal [facility] Comment on above: Performed By: #### E RTPF #### [address] [address] [employer] Worker: Dheeraj Garcia MD pH Adjst'd for Temp. NOT REPORTED Normal 7.320-7.420 [facility] Comment on above: Performed By: #### E RTPF #### [address] [address] [employer] Worker: Dheeraj Garcia MD pO2 Adj'd for Temp. NOT REPORTED Normal 30-50 [facility] Comment on above: Performed By: #### E RTPF #### [address] [address] [employer] Worker: Dheeraj Garcia MD PSV NOT REPORTED Normal [facility] Comment on above: Performed By: #### E RTPF #### [address] [address] [employer] Worker: Dheeraj Garcia MD Pt. Position NOT REPORTED Normal [facility] Comment on above: Performed By: #### E RTPF #### [address] [address] [employer] Worker: Dheeraj Garcia MD Set Rate NOT REPORTED Normal [facility] Comment on above: Performed By: #### E RTPF #### [address] [address] [employer] Worker: Dheeraj Garcia MD Site Drawn NOT REPORTED Normal [facility] Comment on above: Performed By: #### E RTPF #### [address] [address] [employer] Worker: Dheeraj Garcia MD Text for Respiratory NOT REPORTED Normal [facility] Comment on above: Performed By: #### E RTPF #### [address] [address] [employer] Worker: Dheeraj Garcia MD Total Hb NOT REPORTED Normal 12.0-16.0 [facility] Comment on above: Performed By: #### E RTPF #### [facility] [address] [place] [address] [employer] Worker: Dheeraj Garcia MD Total Rate NOT REPORTED Normal [facility] Comment on above: Performed By: #### E RTPF #### [facility] [address] [place] [address] [employer] Worker: Dheeraj Garcia MD [place] NOT REPORTED Normal [facility] Comment on above: Performed By: #### E RTPF #### [facility] [address] [place], [place] [id number] [employer] Worker: Dheeraj Garcia MD Blood Bank BILL FOR SERVICES PERFORMED Normal [facility] Comment on above: Performed By: #### E RTPF #### [facility] [place], [place] [id number] [employer] Worker: Dheeraj Garcia MD CT CERVICAL SPINE WO [...] Krishna Martell DO 08/30/20 Final result Normal [facility] CT CHEST ABDOMEN PELVIS W CO [...] Brenda Sheldon MD 08/30/20 Final result Normal [facility] CT LUMBAR SPINE TRAUMA RECON STRUCTIONon [...] Krishna Martell DO 08/30/20 Final result Normal [facility] CT THORACIC SPINE TRAUMA REC ONSTRUCTIONon [...] Krishna Martell DO 08/30/20 Final result Normal [facility] CTA HEAD NECK W CONTRASTon 1 [...] Dom Zhong MD 08/30/20 Final result Normal [facility] MRI LIMITED BRAINon 08-31-20 20 MRI [...] Hector Cooper MD 08/31/20 Final result Normal [facility] [place], [facility] Incoming Radiant Results From [employer] - 08/31/2020 11:56 AM EDT EXAMINATION: MRI [...] chronic microvascular disease without acute intracranial abnormality. [place] Minimal chronic microvascular disease without acute intracranial abnormality. [place] EXAMINATION: MRI OF THE BRAIN WITHOUT [...] The soft tissues demonstrate no acute abnormality. [place] Trauma Profileon 08-31-2020 Erythrocyte distribution width (RBC) [Ratio] 14.1 % Normal 11.8-14.4 [facility] Comment on above: Performed By: #### E RTPF #### [facility] [address] [place] [address] [employer] Worker: Dheeraj Garcia MD Hematocrit (Bld) [Volume fraction] 38.2 % Normal 36.3-47.1 [facility] Comment on above: Performed By: #### E RTPF #### [facility] [address] [place] [address] [employer] Worker: Dheeraj Garcia MD Hemoglobin (Bld) [Mass/Vol] 12.3 g/dL Normal 11.9-15.1 [facility] Comment on above: Performed By: #### E RTPF #### [facility] [address] [place] [address] [employer] Worker: Dheeraj Garcia MD MCH (RBC) [Entitic mass] 28.9 pg Normal 25.2-33.5 [facility] Comment on above: Performed By: #### E RTPF #### [facility] [address] [place] [address] [employer] Worker: Dheeraj Garcia MD MCHC (RBC) [Mass/Vol] 32.2 g/dL Normal 28.4-34.8 [facility] Comment on above: Performed By: #### E RTPF #### [address] [address] [employer] Worker: Dheeraj Garcia MD MCV (RBC) [Entitic vol] 89.7 fL Normal 82.6-102.9 [facility] Comment on above: Performed By: #### E RTPF #### [address] [address] [employer] Worker: Dheeraj Garcia MD NRBC Automated 0.0 per 100 WBC Normal 0.0 [facility] Comment on above: Performed By: #### E RTPF #### [address] [address] [employer] Worker: Dheeraj Garcia MD Platelet mean volume (Bld) [Entitic vol] 10.6 fL Normal 8.1-13.5 [facility] Comment on above: Performed By: #### E RTPF #### [address] [address] [employer] Worker: Dheeraj Garcia MD Platelets (Bld) [#/Vol] 268 10*3/uL Normal 138-453 [facility] Comment on above: Performed By: #### E RTPF #### [address] [address] [employer] Worker: Dheeraj Garcia MD RBC (Bld) [#/Vol] 4.26 10*6/uL Normal 3.95-5.11 [facility] Comment on above: Performed By: #### E RTPF #### [address] [address] [employer] Worker: Dheeraj Garcia MD WBC (Bld) [#/Vol] 8.7 10*3/uL Normal 3.5-11.3 [facility] Comment on above: Performed By: #### E RTPF #### [address] [address] [employer] Worker: Dheeraj Garcia MD (cont.) [facility] Comment on above: Result Comment: Aver age GFR for 60-69 years old: 85 mL/min/1.73sq m Chronic Kidney Disease: <60 mL/min/1.73sq m Kidney failure: <15 mL/min/1.73sq m eGFR calculated using average adult body mass. Additional eGFR calculator available at: http://www.[employer]/multiple_crcl_2011.htm Performed By: #### E RTPF #### [place] [address] [employer] Worker: Dheeraj Garcia MD Anion gap [Moles/Vol] 10 mmol/L Normal 9-17 [facility] Comment on above: Performed By: #### E RTPF #### [place] [address] [employer] Worker: Dheeraj Garcia MD Chloride [Moles/Vol] 106 mmol/L Normal 98-107 [facility] Comment on above: Performed By: #### E RTPF #### [place] [address] [employer] Worker: Dheeraj Garcia MD CO2 [Moles/Vol] 23 mmol/L Normal 20-31 [facility] Comment on above: Performed By: #### E RTPF #### [address] [address] [employer] Worker: Dheeraj Garcia MD Creatinine [Mass/Vol] 0.62 mg/dL Normal 0.50-0.90 [facility] Comment on above: Performed By: #### E RTPF #### [address] [address] [employer] Worker: Dheeraj Garcia MD Ethanol [Mass/Vol] mg/dL Normal <10 [facility] Comment on above: Performed By: #### E RTPF #### [address] [address] [employer] Worker: Dheeraj Garcia MD Ethanol percent <0.010 Normal <0.010 [facility] Comment on above: Performed By: #### E RTPF #### [address] [address] [employer] Worker: Dheeraj Garcia MD GFR, Amer >60 Normal >60 [facility] Comment on above: Performed By: #### E RTPF #### [address] [address] [employer] Worker: Dheeraj Garcia MD GFR,non Amer >60 Normal >60 [facility] Comment on above: Performed By: #### E RTPF #### [address] [address] [employer] Worker: Dheeraj Garcia MD Glucose [Mass/Vol] 186 mg/dL High 70-99 [facility] Comment on above: Performed By: #### E RTPF #### [address] [address] [employer] Worker: Dheeraj Garcia MD Potassium [Moles/Vol] 3.5 mmol/L Low 3.7-5.3 [facility] Comment on above: Performed By: #### E RTPF #### [address] [address] [employer] Worker: Dheeraj Garcia MD Sodium [Moles/Vol] 139 mmol/L Normal 135-144 [facility] Comment on above: Performed By: #### E RTPF #### [address] [address] [employer] Worker: Dheeraj Garcia MD Urea nitrogen [Mass/Vol] 11 mg/dL Normal 8-23 [facility] Comment on above: Performed By: #### E RTPF #### [address] [address] [employer] Worker: Dheeraj Garcia MD aPTT Coag (Bld) [Time] 24.4 s Normal 20.5-30.5 [facility] Comment on above: Result Comment: IV Heparin Therapy Range: 48.6-77.8 Performed By: #### E RTPF #### [address] [address] [employer] Worker: Dheeraj Garcia MD INR Coag (PPP) [Relative time] 1.0 {INR} Normal [facility] Comment on above: Result Comment: Therapeutic Range: Moderate Anticoagulant Intensity: INR = 2.0-3.0 High Anticoagulant Intensity: INR = 2.5-3.5 Performed By: #### E RTPF #### [address] [address] [employer] Worker: Dheeraj Garcia MD PT Coag (PPP) [Time] 10.5 s Normal 9.0-12.0 [facility] Comment on above: Performed By: #### E RTPF #### [address] [address] [employer] Worker: Dheeraj Garcia MD Body Temp. 37.0 Normal [facility] Comment on above: Performed By: #### E RTPF #### [address] [address] [employer] Worker: Dheeraj Garcia MD Carboxy Hgb 2.2 % Normal 0-5 [facility] Comment on above: Result Comment: Reference Range: Non-Smokers 0-2% Average Smoker 2-4% Heavy Smoker <10% Performed By: #### E RTPF #### [address] [address] [employer] Worker: Dheeraj Garcia MD FIO2 INFORMATION NOT PROVIDED [facility] Comment on above: Performed By: #### E RTPF #### [address] [address] [employer] Worker: Dheeraj Garcia MD HCO3 (Bld) [Moles/Vol] 23.6 mmol/L Low 24-30 [facility] Comment on above: Performed By: #### E RTPF #### [address] [address] [employer] Worker: Dheeraj Garcia MD Negative Base Excess 0.8 mmol/L Normal 0.0-2.0 [facility] Comment on above: Performed By: #### E RTPF #### [address] [address] [employer] Worker: Dheeraj Garcia MD Oxygen (Bld) [Partial pressure] 143.0 mm[Hg] High 30-50 [facility] Comment on above: Performed By: #### E RTPF #### [address] [address] [employer] Worker: Dheeraj Garcia MD Oxygen saturation in Blood 98.6 % High 60.0-85.0 [facility] Comment on above: Performed By: #### E RTPF #### [address] [address] [employer] Worker: Dheeraj Garcia MD pCO2 40.6 Normal 39-55 [facility] Comment on above: Performed By: #### E RTPF #### [address] [address] [employer] Worker: Dheeraj Garcia MD pH (Bld) 7.383 [pH] Normal 7.320-7.420 [facility] Comment on above: Performed By: #### E RTPF #### [facility] [address] [place] [address] [employer] Worker: Dheeraj Garcia MD Blood Bank BILL FOR SERVICES PERFORMED Normal [facility] Comment on above: Performed By: #### E RTPF #### [facility] [address] [place] [address] [employer] Worker: Dheeraj Garcia MD Hubert Test NOT REPORTED Normal [facility] Comment on above: Performed By: #### E RTPF #### [facility] [address] [place] [address] [employer] Worker: Dheeraj Garcia MD Methemoglobin NOT REPORTED Normal 0.0-1.5 [facility] Comment on above: Performed By: #### E RTPF #### [facility] [address] [place] [address] [employer] Worker: Dheeraj Garcia MD Mode NOT REPORTED Normal [facility] Comment on above: Performed By: #### E RTPF #### [facility] [address] [place] [address] [employer] Worker: Dheeraj Garcia MD Notification Time NOT REPORTED Normal [facility] Comment on above: Performed By: #### E RTPF #### [facility] [address] [place] [address] [employer] Worker: Dheeraj Garcia MD Notification: NOT REPORTED Normal [facility] Comment on above: Performed By: #### E RTPF #### [facility] [address] [place] [address] [employer] Worker: Dheeraj Garcia MD O2 Device/Flow/% NOT REPORTED Normal [facility] Comment on above: Performed By: #### E RTPF #### [address] [address] [employer] Worker: Dheeraj Garcia MD Oxyhemoglobin NOT REPORTED Normal 95.0-98.0 [facility] Comment on above: Performed By: #### E RTPF #### [address] [address] [employer] Worker: Dheeraj Garcia MD Pco2 Adj'd for Temp. NOT REPORTED Normal 39-55 [facility] Comment on above: Performed By: #### E RTPF #### [address] [address] [employer] Worker: Dheeraj Garcia MD PEEP/CPAP NOT REPORTED Normal [facility] Comment on above: Performed By: #### E RTPF #### [address] [address] [employer] Worker: Dheeraj Garcia MD pH Adjst'd for Temp. NOT REPORTED Normal 7.320-7.420 [facility] Comment on above: Performed By: #### E RTPF #### [address] [address] [employer] Worker: Dheeraj Garcia MD pO2 Adj'd for Temp. NOT REPORTED Normal 30-50 [facility] Comment on above: Performed By: #### E RTPF #### [address] [address] [employer] Worker: Dheeraj Garcia MD Positive Base Excess NOT REPORTED Normal 0.0-2.0 [facility] Comment on above: Performed By: #### E RTPF #### [address] [address] [employer] Worker: Dheeraj Garcia MD PSV NOT REPORTED Normal [facility] Comment on above: Performed By: #### E RTPF #### [facility] [address] [place] [address] [employer] Worker: Dheeraj Garcia MD Pt. Position NOT REPORTED Normal [facility] Comment on above: Performed By: #### E RTPF #### [address] [address] [employer] Worker: Dheeraj Garcia MD Set Rate NOT REPORTED Normal [facility] Comment on above: Performed By: #### E RTPF #### [address] [address] [employer] Worker: Dheeraj Garcia MD Site Drawn NOT REPORTED Normal [facility] Comment on above: Performed By: #### E RTPF #### [address] [address] [employer] Worker: Dheeraj Garcia MD Staging: NOT REPORTED Normal [facility] Comment on above: Performed By: #### E RTPF #### [address] [address] [employer] Worker: Dheeraj Garcia MD Text for Respiratory NOT REPORTED Normal [facility] Comment on above: Performed By: #### E RTPF #### [address] [address] [employer] Worker: Dheeraj Garcia MD Total Hb NOT REPORTED Normal 12.0-16.0 [facility] Comment on above: Performed By: #### E RTPF #### [address] [address] [employer] Worker: Dheeraj Garcia MD Total Rate NOT REPORTED Normal [facility] Comment on above: Performed By: #### E RTPF #### [address] [address] [employer] Worker: Dheeraj Garcia MD [place] NOT REPORTED Normal [facility] Comment on above: Performed By: #### E RTPF #### [facility] [address] [place] [id number] [employer] Worker: Dheeraj Garcia MD Type + Screenon 08-31-2020 Type + Screen Sample Expiration 09/02/2020,2359 Arm Band Number BE [id number] ABO/Rh(D) O POSITIVE Antibody Screen NEGATIVE Normal [facility] Comment on above: Performed By: #### T YS #### [employer] [address] [place] [address] [employer] Worker: Dheeraj Garcia MD XR SHOULDER LEFT (MIN [...] Delmis Adams MD 08/31/20 Final result Normal [facility] EXAMINATION: TWO XRAY VIEWS OF THE LEFT SHOULDER 08/31/2020 8:25 am COMPARISON: None. HISTORY: ORDERING SYSTEM PROVIDED HISTORY: trauma TECHNOLOGIST PROVIDED HISTORY: trauma Reason for Exam: trauma Acuity: Acute Type of Exam: Initial FINDINGS: The bones and joints are unremarkable without definite fracture, dislocation, abnormal soft tissue calcification or bony destructive lesion [employer] Unremarkable three view left shoulder series [employer] [place], [facility] Incoming Radiant Results From [employer] - 08/31/2020 8:46 AM EDT EXAMINATION: TWO [...] IMPRESSION: Unremarkable three view left shoulder series [place] CT CERVICAL SPINE WO CONTRAS Ton 08-30-2020 No evidence of an acute fracture or traumatic malalignment involving the cervical spine [place] EXAMINATION: CT OF THE CERVICAL SPINE [...] There is no prevertebral soft tissue swelling. [place], [facility] Incoming Radiant Results From [employer] - 08/30/2020 11:01 PM EDT EXAMINATION: CT [...] or traumatic malalignment involving the cervical spine [place] CT CHEST ABDOMEN PELVIS W CO [...] aorta. Bones/Soft Tissues: No acute osseous abnormality. [facility] [place], [facility] Incoming Radiant Results From [employer] - 08/30/2020 11:25 PM EDT EXAMINATION: CT [...] could provide further information as clinically indicated. [place] 1. No acute or traumatic intrathoracic abnormality. 2. No acute or traumatic intra-abdominal abnormality. 3. Dilation of the main pulmonary artery, suggestive of pulmonary artery hypertension. 4. Hepatic steatosis. 5. 1.6 cm left upper pole renal lesion is indeterminate, possibly a cyst. Renal protocol CT or MRI could provide further information as clinically indicated. [place] LUMBAR SPINE TRAUMA RECON STRUCTIONon [...] the upper pole of the left kidney. [place], [place] Incoming Radiant Results From [employer] - 08/30/2020 11:26 PM EDT EXAMINATION: CT [...] or traumatic malalignment involving the lumbar spine. [facility] [place] No evidence of an acute fracture or traumatic malalignment involving the lumbar spine. [place] THORACIC SPINE TRAUMA REC ONSTRUCTIONon [...] the lung bases. No pneumothorax is noted. [facility] [place], [facility] Incoming Radiant Results From [employer] - 08/30/2020 11:29 PM EDT EXAMINATION: CT [...] or traumatic malalignment involving the thoracic spine [place] No evidence of an acute fracture or traumatic malalignment involving the thoracic spine [place] CTA HEAD NECK W CONTRASTon 1 Unremarkable CTA of the neck. 50% stenosis left intracranial ICA, otherwise unremarkable CTA head. [place], [place] Incoming Radiant Results From [employer] - 08/30/2020 11:48 PM EDT EXAMINATION: CTA [...] left intracranial ICA, otherwise unremarkable CTA head. [place] EXAMINATION: CTA OF THE HEAD AND [...] fluid collection. The durán-white differentiation is maintained. [place] TYPE AND SCREENon 08-30-2020 ABO/Rh Positive [place], [place] Arm Band Number BE [id number] [place], [place] Expiration Date 09/02/2020,235 [place], [place] Trauma Panelon 08-30-2020 Hubert Test NOT REPORTED [place] Anion gap [Moles/Vol] 10 mmol/L 9 - 17 mmol/L [place] aPTT Coag (Bld) [Time] 37.0 s [place] aPTT Coag (Bld) [Time] 24.4 s [place] Comment on above: IV Heparin Therapy Range: 48.6-77.8 Blood Bank Specimen BILL FOR SERVICES PERFORMED [place] Carboxyhemoglobin 2.2 % 0 - 5 % [place] Comment on above: Reference Range: Non-Smokers 0-2% Average Smoker 2-4% Heavy Smoker <10% Chloride [Moles/Vol] 106 mmol/L 98 - 10 7 mmol/L [place] CO2 [Moles/Vol] 23 mmol/L 20 - 31 mmol/L [place] Creatinine [Mass/Vol] 0.62 mg/dL 0.5 - 0.9 mg/dL [place] Erythrocyte distribution width (RBC) [Ratio] 14.1 % 11.8 - 14.4 % [place] Ethanol [Mass/Vol] mg/dL <10 mg/dL [place] Ethanol percent <0.010 <0.010 % [place] FIO2 INFORMATION NOT PROVIDED [place] GFR >60 >60 mL/min [place] GFR Non- >60 >60 mL/min [place] GFR/1.73 sq M predicted among non-blacks MDRD (S/P/Bld) [Vol rate/Area] [place] Comment on above: Average GFR for 60-6 9 years old: 85 mL/min/1.73sq m Chronic Kidney Disease: <60 mL/min/1.73sq m Kidney failure: <15 mL/min/1.73sq m eGFR calculated using average adult body mass. Additional eGFR calculator available at: http://www.[employer]/multiple_crcl_2012.htm GFR/1.73 sq M predicted among non-blacks MDRD (S/P/Bld) [Vol rate/Area] NOT REPORTED [place] Glucose [Mass/Vol] 186 mg/dL High 70 - 99 mg/dL [place] hCG Qual CANCELLED PER ED NEGATIVE [place] HCO3, Venous 23.6 mmol/L Low 24 - 30 mmol/L [place] Hematocrit (Bld) [Volume fraction] 38.2 % 36.3 - 47.1 % [place] Hemoglobin (Bld) [Mass/Vol] 12.3 g/dL 11.9 - 15.1 g/dL [place] INR Coag (PPP) [Relative time] 1.0 {INR} [place] Comment on above: Therapeutic Range: Moderate Anticoagulant Intensity: INR = 2.0-3.0 High Anticoagulant Intensity: INR = 2.5-3.5 Interpretation and review of laboratory results Abnormal [place] MCH (RBC) [Entitic mass] 28.9 pg 25.2 - 33.5 pg [place] MCHC (RBC) [Mass/Vol] 32.2 g/dL 28.4 - 34.8 g/dL [place] MCV (RBC) [Entitic vol] 89.7 fL 82.6 - 102.9 fL [place] Methemoglobin NOT REPORTED 0 - 1.5 % [place] Mode NOT REPORTED [place] Negative Base Excess, Christo 0.8 mmol/L 0 - 2 mmol/L [place] NOTIFICATION NOT REPORTED [place] NOTIFICATION TIME NOT REPORTED [place] O2 Device/Flow/% NOT REPORTED [place] Oxygen saturation in Blood 98.6 % High 60 - 85 % [place] Oxyhemoglobin NOT REPORTED 95 - 98 % [facility] [place] pCO2, Christo 40.6 [place] pCO2, Christo, Temp Adj NOT REPORTED [place] Peep/Cpap NOT REPORTED [place] pH, Christo 7.383 [place] pH, Christo, Temp Adj NOT REPORTED [place] Platelet mean volume (Bld) [Entitic vol] 10.6 fL 8.1 - 13.5 fL [place] Platelets (Bld) [#/Vol] 268 10*3/uL [place] pO2, Christo 143.0 High [place] pO2, Christ[place], Temp Adj NOT REPORTED [place], [place] Positive Base Excess, Christo NOT REPORTED 0 - 2 mmol/L [place] Potassium [Moles/Vol] 3.5 mmol/L Low 3.7 - 5.3 mmol/L [place] PSV NOT REPORTED [place] PT Coag (PPP) [Time] 10.5 s [place] Pt. Position NOT REPORTED [place] RBC (Bld) [#/Vol] 4.26 10*6/uL 3.95 - 5.1 1 m/uL [place] Sample Site NOT REPORTED [place], [place] Set Rate NOT REPORTED [place] Sodium [Moles/Vol] 139 mmol/L 135 - 144 mmol/L [place] Text for Respiratory NOT REPORTED [place] Total Hb NOT REPORTED 12 - 16 g/dl [place] Total Rate NOT REPORTED [place] Urea nitrogen [Mass/Vol] 11 mg/dL 8 - 23 mg/dL [place] NOT REPORTED [place] WBC (Bld) [#/Vol] 0.0 10*3/uL 0.0 per 10 0 WBC [place] WBC (Bld) [#/Vol] 8.7 10*3/uL [facility] 03-24-2019 Protein mass conc HNO ID: [id number] Author: Kamilah Jean) Kyle Service: ? Author Type: Physician Lyric Writer Type: Progress Notes Filed: 03/25/2019 10:38 AM Note Text: [facility] NOTE NAME: SHEMAR AVILA NO.: [id number] DATE OF SERVICE: 03/24/2019 [facility] DATE OF : 1955 CHIEF COMPLAINT: Skilled followup visit for discharge. Also complains of a cyst on her back. SUBJECTIVE FINDINGS: The patient was seen in her room today at [facility]. She is tentatively scheduled for [...] above. MEDICATIONS: Medications were reviewed in the skilled nursing records. OARRS report was run today and [...] DICTATED BY: Kamilah Wright PA-C PG/Niharika JOB# [id number] cc:[facility] Normal [facility] PROGRESSon 03-22-2019 Protein mass conc HNO ID: [id number] Author: Kamilah Wright (Pa) Service: ? Author Type: Physician Lyric Writer Type: Progress Notes Filed: 03/23/2019 11:37 AM Note Text: [facility] NAME: SHEMAR AVILA NO.: [id number] DATE OF SERVICE: 03/22/2019 [facility] DATE OF : 1955 CHIEF COMPLAINT: Skilled followup visit for stroke; today complaining of heartburn. SUBJECTIVE FINDINGS: The patient was seen in the therapy department at [facility]. She reports that overall she [...] SYSTEMS: See above. MEDICATIONS: Reviewed in the skilled nursing record. CODE STATUS: Full code. PHYSICAL EXAM: [...] DICTATED BY: Kamilah Wright PA-C PG/Niharika JOB# [id number] cc:Viviana Mota Normal [facility] PROGRESSon 03-19-2019 Protein mass conc HNO ID: [id number] Author: Kamilah Wright (Pa) Service: ? Author Type: Physician Lyric Writer Type: Progress Notes Filed: 03/22/2019 12:17 PM Note Text: [facility] NAME: SHEMAR AVILA NO.: [id number] DATE OF SERVICE: 03/19/2019 [facility] DATE OF : 1955 CHIEF COMPLAINT: Follow up for stroke and weakness. SUBJECTIVE FINDINGS: The patient was seen in her room at [facility]. She is complaining of a [...] SYSTEMS: See above. MEDICATIONS: Reviewed in the skilled nursing record. CODE STATUS: Full code. PHYSICAL EXAM: [...] DICTATED BY: Kamilah Wright PA-C PG/Acusis JOB# [id number] cc:[facility] Normal [facility] PROGRESSon 03-17-2019 Protein mass conc HNO ID: [id number] Author: Kamilah Wright (Pa) Service: ? Author Type: Physician Lyric Writer Type: Progress Notes Filed: 03/18/2019 10:28 AM Note Text: [facility] NAME: SHEMAR AVILA NO.: [id number] DATE OF SERVICE: 03/17/2019 [facility] DATE OF : 1955 CHIEF COMPLAINT: Follow up for stroke and weakness. SUBJECTIVE FINDINGS: The patient was seen in the therapy department at [facility]. She is doing very well [...] SYSTEMS: See above. MEDICATIONS: Reviewed in the skilled nursing record. CODE STATUS: Full code. PHYSICAL EXAM: [...] DICTATED BY: Kamilah Wright PA-C PG/Niharika JOB# [id number] cc:[facility] Normal [facility] PROGRESSon 03-15-2019 Protein mass conc HNO ID: [id number] Author: Kyra Butler Service: ? Author Type: Physician Type: Progress Notes Filed: 03/18/2019 5:07 PM Note Text: [facility] NOTE NAME: YEYO AVILA NO.: [id number] DATE OF SERVICE: 03/15/2019 [place] DATE OF : 1955 New Patient History and Physical HISTORY OF PRESENT ILLNESS: The patient is a 63-year-old female was admitted to us from [facility] in [place] with the diagnoses of complicated headache syndrome [...] negative. She was then transferred to [facility] where repeat CT scan along [...] therapy. DICTATED BY: MD NELIDA Larose/Niharika JOB# [id number] cc:Viviana Mota Normal [facility] Vital Signs Date Time Vital Sign Value Performing Clinician Facility 07-13-2023 11:32-0400 Body temperature 97.88 [degF] [facility] 07-13-2023 11:32-0400 Diastolic blood pressure 85 mm[Hg] [facility] 07-13-2023 11:32-0400 Heart rate 76 /min [facility] 07-13-2023 11:32-0400 Respiratory rate 18 /min [facility] 07-13-2023 11:32-0400 SaO2% (BldA) [Mass fraction] 97 % [facility] 07-13-2023 11:32-0400 Systolic blood pressure 147 mm[Hg] [facility] 02-24-2023 13:08-0400 Promise to Return Sunshine GROSSMANICK [facility] 02-24-2023 12:00-0400 Hourly Rounding Ronobir FELICIA [facility] 02-24-2023 12:00-0400 Promise to Return Ronobir FELICIA [facility] 02-24-2023 11:56-0400 Heart rate 62 /min Ronobir FELICIA [facility] 02-24-2023 11:56-0400 SaO2% (BldA) [Mass fraction] 97 % Ronobir FELICIA [facility] 02-24-2023 11:54-0400 Diastolic blood pressure 67 mm[Hg] Ronobir FELICIA [facility] 02-24-2023 11:54-0400 Mean blood pressure 88 mm[Hg] Ronobir FELICIA [facility] 02-24-2023 11:54-0400 Systolic blood pressure 130 mm[Hg] Ronobir FELICIA [facility] 02-24-2023 11:54-0400 Body temperature 97.88 [degF] Ronobir FELICIA [facility] 02-24-2023 11:11-0400 Hourly Rounding Ronobir FELICIA [facility] 02-24-2023 11:11-0400 Promise to Return Ronobir FELICIA [facility] 02-24-2023 11:00-0400 Hourly Rounding Ronobir FELICIA [facility] 02-24-2023 07:50-0400 SaO2% (BldA) [Mass fraction] 98 % Ronobir FELICIA [facility] 02-24-2023 07:43-0400 Heart rate 61 /min Ronobir FELICIA [facility] 02-24-2023 07:43-0400 SaO2% (BldA) [Mass fraction] 98 % Ronobir FELICIA [facility] 02-24-2023 07:41-0400 Body temperature 98.06 [degF] Ronobir FELICIA [facility] 02-24-2023 07:41-0400 Diastolic blood pressure 74 mm[Hg] Ronobir FELICIA [facility] 02-24-2023 07:41-0400 Mean blood pressure 92 mm[Hg] Ronobir FELICIA [facility] 02-24-2023 07:41-0400 Systolic blood pressure 128 mm[Hg] Ronobir FELICIA [facility] 02-24-2023 03:47-0400 Blood Pressure Location Ronobir FELICIA [facility] 02-24-2023 03:47-0400 Body temperature 97.52 [degF] Ronobir FELICIA [facility] 02-24-2023 03:47-0400 Diastolic blood pressure 70 mm[Hg] Ronobir FELICIA [facility] 02-24-2023 03:47-0400 Heart rate 57 /min Ronobir FELICIA [facility] 02-24-2023 03:47-0400 Mean blood pressure 87 mm[Hg] Ronobir FELICIA [facility] 02-24-2023 03:47-0400 Respiratory rate 17 /min Ronobir FELICIA [facility] 02-24-2023 03:47-0400 Systolic blood pressure 120 mm[Hg] Ronobir FELICIA [facility] 02-24-2023 03:06-0400 Mean blood pressure 77 mm[Hg] Ronobir FELICIA [facility] 02-24-2023 03:06-0400 Respiratory rate 16 /min Ronobir FELICIA [facility] 02-24-2023 02:49-0400 Respiratory rate 16 /min Ronobir FELICIA [facility] 02-24-2023 02:04-0400 Body temperature 96.8 [degF] Ronobir FELICIA [facility] 02-24-2023 02:04-0400 Mean blood pressure 68 mm[Hg] Ronobir FELICIA [facility] 02-24-2023 01:09-0400 Body temperature 96.62 [degF] Ronobir FELICIA [facility] 02-24-2023 00:21-0400 Heart rate 58 /min Ronobir FELICIA [facility] 02-24-2023 00:06-0400 gluc 139 mg/dL Ronobir FELICIA [facility] 02-24-2023 00:06-0400 Heart rate 61 /min Ronobir FELICIA [facility] 02-18-2022 13:50-0400 Body height 165.1 cm MD Shaikh Hernandez Work Phone: [facility] 02-18-2022 13:50-0400 Body weight 104.32 kg MD Shaikh Hernandez Work Phone: [facility] 09-01-2020 16:00-0400 BP Diastolic 85 mm[Hg] Dank Rodgers [facility] [place] 09-01-2020 16:00-0400 BP Systolic 158 mm[Hg] Dank Rodgers [facility] [place] 09-01-2020 14:12-0400 Pulse (Heart Rate) 72 /min Dank Rodgers [facility] 09-01-2020 13:30-0400 Respiratory rate NOT REPORTED Dank Rodgers [facility] 09-01-2020 12:27-0400 Body Temperature 97.7 [degF] Dank Rodgers [facility] [place] 09-01-2020 12:27-0400 Pulse Oximetry 94 % [facility] [place] 09-01-2020 07:15-0400 Respiratory rate NOT REPORTED [facility] Comment on above: Performed By: #### ERTPF #### [facility] [address] [place], [place] [id number] [employer] Worker: Dheeraj Garcia MD 09-01-2020 04:45-0400 Respiratory Rate 15 /min Dank Rodgers [facility] 08-31-2020 18:45-0400 BMI (Body Mass Index) 38.72 kg/m2 Dank Rodgers [facility] 08-31-2020 18:45-0400 Body weight 105.55 kg Dank Rodgers [facility] [place] 08-31-2020 18:45-0400 Height 165.1 cm Dank Rodgers [place], [place] 08-31-2020 00:34-0400 Respiratory rate NOT REPORTED [facility] Comment on above: Performed By: #### ERTPF #### [facility] [address] [place], [place] [id number] [employer] Worker: Dheeraj Garcia MD 08-30-2020 23:08-0400 Respiratory rate NOT REPORTED Dank Rodgers [facility] [place] Encounters Encounter Date Encounter Type Care Provider Facility Start: 12-30-2023 End: 12-31-2023 ambulatory Arturo DOLAN [facility] Start: 12-30-2023 End: 12-30-2023 Patient encounter procedure Arturo DOLAN [facility] Start: 12-18-2023 End: 12-19-2023 ambulatory Arturo DOLAN Facility:CD:[id number] Start: 11-13-2023 End: 11-14-2023 ambulatory Arturo DOLAN Facility:CD:[id number] Start: 11-12-2023 End: 11-13-2023 ambulatory Arturo DOLAN Facility:[facility] [place] Start: 07-13-2023 End: 07-13-2023 Emergency department patient visit Zaki Steen Toni Facility[facility] Start: 07-13-2023 End: 07-13-2023 Emergency department patient visit Zaki Steen Toni [facility] Start: 07-08-2023 End: 07-08-2023 ambulatory ALEXIA CLINE [facility] Start: 04-25-2023 End: 04-25-2023 ambulatory [facility] Start: 04-15-2023 End: 04-15-[address] ROBIN PONCE . Facility: Start: 04-01-2023 End: 04-01-[address] DANK JOHNSON Facility:[facility] Start: 04-01-2023 End: 04-02-[address] DOCTOR CSATELLON Facility:[facility] Start: 03-24-2023 End: 03-25-[address] DOCTOR CASTELLON Facility:[facility] Start: 03-10-2023 End: 03-10-2023 ambulatory [facility] Start: 02-24-2023 End: 02-24-2023 ambulatory Leann GUNTER Facility:[facility] Start: 02-24-2023 End: 02-24-2023 Observation Sunshine DUARTE [facility] Start: 02-14-2023 End: 02-14-[address] ROBIN PONCE . Facility:[facility] Start: 10-05-2022 End: 10-05-[address] ZELALEM STACY Facility: Start: 09-23-2022 ambulatory SHAIKH Enio HERNANDEZ Facilit y:[facility] Start: 02-18-2022 End: 02-18-2022 Patient encounter procedure MD Shaikh Hernandez Work Phone: [facility] Start: 03-21-2021 End: 03-22-2021 ambulatory REBEKA Sean MCADAMSGENIEKarissa Facility:[facility] Start: 08-31-2020 End: 09-01-2020 Evaluation and management of inpatient HERMELINDO ADKINS [facility] Start: 08-30-2020 End: 09-01-2020 Evaluation and [...] CHEMICAL VTE PROPHYLAXIS HERMELINDO LUCILLE Start: 08-31-2020 VENEER SUPERVISOR EVAL AND TREAT HERMELINDO LUCILLE Start: 08-31-2020 [...] Start: 08-30-2020 CT LUMBAR SPINE TRAUMA RECONSTRUCTION [place] [employer] Work Phone: Start: 08-30-2020 CT THORACIC SPINE TRAUMA RECONSTRUCTION [place] [employer] Work Phone: Start: 08-30-2020 Ct thorax w/contrast [...] Colonoscopy Ronobir FELICIA Exploratory laparotomy Ronob ir FELCIIA History of coronary artery bypass grafting H/O coronary artery bypass surgery MD Shaikh Hernandez Work Phone: Plan of Treatment Date Care Activity Detail Author Start: 09-01-2021 Creatinine measurement Creatinine mo nitoring [place], [place] Start: 09-01-2021 HbA1c (Bld) [Mass fraction] A1C test (Diabetic or Prediabetic) [place] Start: 09-01-2021 Lipid panel Lipid screen [place], [place] Start: 09-01-2021 Potassium monitoring Potassium monit oring [place] Start: 08-31-2020 Annual Wellness Visi t (AWV) Annual Wellness Visit (AWV) [place] Start: 07-18-2020 Influenza vaccination Flu vaccine (# 1) [place] Start: 2007 Screening for malign ant neoplasm of breast Breast cancer screen [place] Start: 2007 Screening for malign ant neoplasm of colon Colon cancer screen colonoscopy [place] Start: 2007 Shingles Vaccine (1 of 2) Shingles V accine (1 of 2) [place] Start: 1978 Screening for malign ant neoplasm of cervix Cervical cancer screen [place] Start: 1976 DTaP/Tdap/Td vaccine (1 - Tdap) DTaP/Tdap/Td vaccine (1 - Tdap) [place] Start: 1975 Diabetic microalbumi betzy test Diabetic microalbuminuria test [place] Start: 1972 HIV screening HIV screen [place], [place] Start: 1967 Diabetic foot examination Diabetic f oot exam [place] Start: 1967 Diabetic retinal exam Diabetic retin al exam [place] Start: 1957 Hepatitis C screening Hepatitis C sc reen [place] Oxygen therapy [[facility]] Initiate Oxygen Therapy Protocol Respiratory Care Routine Daily until discontinued starting 08/31/2020 [place] Comment on above: Daily until disconti nued starting 08/31/2020 End: 08-31-2020 Speech and language therapy regime [facility] Comment on above: One Time for 1 Occur rences starting 08/31/2020 until 08/31/2020 Immunizations Immunization Date Immunization Notes Care Provider Ronny pathak 08-17-2021 influenza virus vaccine, unspecified formulation Ronobir FELICIA [facility] 02-15-2021 SARS-CoV-2 (COVID-19 ) Ad26 vaccine, recombinant Ronobir FELICIA [facility] 01-15-2021 SARS-CoV-2 (COVID-19 ) Ad26 vaccine, recombinant Ronobir FELICIA [facility] 09-19-2017 pneumococcal conjuga te vaccine, 13 valent Arturo DOLAN [facility] [place] Payers Date Payer Category Payer Medicare [id number] 1.2.8 [id number] 1957 Self-pay [id number] 1957 Unknown [id number] 2.16.8 [id number] 1957 Unknown [id number] 2.16.8 40.1.831263.3.579.2.647 1957 Unknown [id number] 2.16.84 0.1.188355.3.579.2.593 1957 Unknown [id number] 2.16.84 0.1.061259.3.579.2.593 1957 Unknown [id number] 2.16.84 0.1.054069.3.579.2.593 1957 Unknown [id number] 2.16.84 0.1.710295.3.579.2.593 1957 Unknown [id number] 2.16.84 0.1.663925.3.579.2.593 1957 Unknown [id number] 2.16.84 0.1.976196.3.579.2.593 1957 Unknown [id number] 2.16.84 0.1.813548.3.579.2.593 1957 Unknown [id number] 2.16.8 40.1.909316.3.579.2.727 1957 Unknown [id number] 2.16.8 40.1.046672.3.579.2.727 1957 Unknown [id number] 2.16.8 40.1.299766.3.579.2.727 1957 Unknown [id number] 2.16.8 40.1.370827.3.579.2.727 1957 Unknown [id number] 2.16.8 40.1.651890.3.579.2.727 1957 Unknown [id number] 2.16.8 40.1.071461.3.579.2.727 Self-pay Self Pay [id number] Social History Date Type Detail Facility Tobacco smoking stat [facility] Unknown if ever smoked [place] Sex Assigned At Not on file [place] Start: 03-19-2021 [facility] Start: 1955 Sex Assigned At Female [facility] Start: 02-24-2023 End: 11-12-2023 Tobacco smoking status Heavy tobacco smoker (finding) [facility] Comment on above: 1 pack a day Sex Assigned At Female [facility] Tobacco smoking status Never [facility] Comment on above: 1 pack a day Functional Status Date Assessment Result Facility 12-30-2023 Functional Status N/A [facility] 07-13-2023 Functional Status N/A [facility] 02-24-2023 Functional Status No [facility] 02-24-2023 Functional Status [facility] Clinical Notes 02-24-2023 to 12-30-2023 Note Date & Type Note Facility 12-30-2023 Note [id number] [facility] 12-30-2023 Hospital Discharg e instructions Patient Education [...] DOLAN Address: [facility] [address] [place] [address]- Business (1) When:03/29/2024 11:56:00 Comments:With a stone metabolic workup [facility] 12-03-2023 Note RCRI=3 points Class IV Risk 15.0 % 30-day risk of , NM, or cardiac arrest PMH- CAD s/p Stent, [...] you Alexia Cline NP Division of Cardiology, [facility]- [phone] Pager- [phone] Email- [email or web address] 07-13-2023 Hospital Discharg e instructions Patient [...] to strengthen the arm. General instructions Take apcx-ugj-yiwwmrk and prescription medicines only as told by [...] provider. Document Revised: 07/19/2022 Document Reviewed: 07/19/2022 [employer] Patient Education 2022 [employer]. 07/13/2023 12:19:06 Muscle Strain Muscle Strain A [...] is not too tight. General instructions Take eubv-gqa-ztvxqpc and prescription medicines only as told by [...] provider. Document Revised: 01/21/2022 Document Reviewed: 01/21/2022 [employer] Patient Education 2022 [employer]. Follow Up Care 07/13/2023 11:23:52 With:Robin Ponce Address: [address] [place] [phone] Business (1) When:07/16/2023 12:02:34 [facility] 07-13-2023 Evaluation + Plan note Extrac sherita from: Title:ED Note Author:Rubén STAFFORD, Mathew Sadler te:07/13/23 Shoulder pain (M25.519: Pain in unspecified shoulder) Ordered: acetaminophen-oxycodone, 1 tab(s), Oral, q6hr as needed for pain for 3 day(s), 15 tab(s), Refill(s) 0, [id number], 165, cm, 07/13/23 11:34:00 EDT, Height/Length Dosing, 95.5, kg, 07/13/23 11:34:00 EDT, Weight Dosing [facility]08-22-2023 NoteWill increase imdur to 60 mg and d/w pt that if migraines worsen she can reduce back to 30 mg Recent [facility] Note Recommended pt to see a migraine specialist in [place] or [place]08-22-2023 NoteCoronary artery disease is stable Continue GDMT- Coreg, simvastatin, imdur continue risk factor modifications- heart healthy diet, regular exercise as tolerated and continue all medications.[facility] 07-08-2023 NoteNYHC II- currently LVEF normal 60%- recovered Mild MR and TV regurg Normal rt sided pressure Continue current med regime. Coreg, irbesartan, simvastatin, imdurUniversity [facility] 07-08-2023 NoteHypertension is well controlled, Continue all current medsUniversity [facility]08-22-2023 NoteUTP CARDIOLOGY PROGRESS NOTE HPI: Yeyo [...] States pain in groin Cat/Feline Products Hives Ozark Hives Topiramate Hives and Other Blue Dye [...] mononitrate ER (I (more content not included)... [facility]06-09-2023 NotePatient here for follow up Holter monitor and stress test. Also had labs a few weeks ago. Review of Systems Cardiovascular: Positive for chest pain, dyspnea on exertion and near-syncope (with bending over). Neurological: Positive for dizziness and light-headedness. All other systems reviewed and are negative.[facility] 04-25-2023 NoteCardiology Clinic Note Subjective Yeyo [...] States pain in groin Cat/Feline Products Hives [place]ark Hives Topiramate Hives and Other Blue Dye [...] mg sublingual tablet, Dis (more content not included)...[facility] 03-10-2023 NoteCardiology Clinic Note Subjective Yeyo [...] disease, unspecified (CMS/HCC) Chronic systolic heart failure ([facility]/HCC) Complicated migraine Migraine, unspecified, not intractable, with status migrainosus Diabetes mellitus due to underlying condition without complications ([facility]/HCC) Coronary atherosclerosis Diabetes ([facility]/HCC) Difficulty in walking, not elsewhere classified Disorder of urinary tract Dyspnea Zaina hematuria Hemiplegia and hemiparesis following cerebral infarction affecting left non-dominant side ([facility]) Head injury GERD (gastroesophageal reflux disease) NEGRITA (generalized anxiety disorder) Anxiety disorder, unspecified Hypertensive urgency Hyperlipidemia, unspecified History of stroke Hemiplegic migraine Major depressive disorder, recurrent, unspecified ([facility]/HCC) MDD (major depressive disorder), recurrent episode, moderate ([facility]/HCC) Muscle weakness (generalized) Obesity, unspecified Primary malignant neoplasm of bladder ([facility]) Palpitations Old myocardial infarction Severe episode of recurrent major depressive disorder, without psychotic features ([facility]) Stroke-like symptoms Status post percutaneous transluminal coronary [...] States pain in groin Cat/Feline Products Hives Ozark Hives Topiramate Hives and Other Blue Dye [...] systolic function. No significant (more content not included)...[facility] 02-24-2023 NoteCape Fear Valley Bladen County Hospitaler [facility] HospitalComment on above:Result Comment: Electronically Signed By: PERLA PRADO, Leann\.br\Date and Time Signed: 02/24/23 12:35 [id number] Evaluation + Plan noteExtracted from: Title:Discharge Note [...] PRN With When Contact Information Robin Kris [address] [place] [phone]- [employer] (1) Additional Instructions: Office is closed for lunch between Noon and 1 p.m. Please contact office for follow up appointment. Thank you! SHAIKH MARY Within 5 to [address] [place] [address] [employer] (1) Additional Instructions: Not a patient. Syncope, Knkc-fa-Phmy Extracted from: Title:APSO Note Author:Leann GUNTER MD [...] heart monitor. Check orthostatic vital signs. Ordered: [facility] Care/Day Moderate 35 Minutes [id number] 2. RAMA (acute kidney injury) (N17.9: Acute kidney failure, unspecified) Acute kidney injury secondary to ATN from dehydration and antihypertensives. Resolved. Treated with IV fluid. Ordered: [facility] Care/Day Moderate 35 Minutes [id number] 3. Hypokalemia (E87.6: Hypokalemia) Secondary to poor oral intake. Potassium level improving to 3.4. We will give patient additional potassium chloride. Ordered: potassium chloride, 40 mEq = 2 tab(s), Tab-ER, Oral, Once, Stop date 02/24/23 10:00:00 EDT, Routine, Start date 02/24/23 10:00:00 EDT, 02/24/23 9:46:00 EDT [facility] Care/Day Moderate 35 Minutes [id number] 4. Diabetes mellitus (E11.9: Type 2 diabetes mellitus without complications) Continue sliding scale insulin. Ordered: [facility] Care/Day Moderate 35 Minutes 29438 5. High cholesterol (E78.00: Pure hypercholesterolemia, unspecified) On Lipitor at home. Ordered: [facility] Care/Day Moderate 35 Minutes [id number] 6. Hypertension (I10: Essential (primary) hypertension) Blood pressure on the low side of normal. 7. CAD (coronary artery disease) (I25.10: Atherosclerotic heart disease of grindstone coronary artery without angina pectoris) Continue on aspirin, Plavix. 8. Aortic aneurysm (I71.9: Aortic aneurysm of unspecified site, without rupture) Status post surgery. 9. Obese (E66.9: Obesity, unspecified) Recommend therapeutic lifestyle modification changes. 10. On deep vein thrombosis (DVT) prophylaxis (Z79.899: Other ad terminal makeup operator (current) drug therapy) Heparin. Disposition: Home soon pending physical therapy evaluation. I discussed the diagnosis and plan of care with the patient at the bedside. Moderate level of MDM based on addressing above issues. This documentation was transcribed using voice recognition software. Several attempts were made to ensure accuracy. However inadvertent computerized special tester errors may be present. Leann Gunter. Hospitalist. [...] deep vein thrombosis (DVT) prophylaxis (Z79.899: Other assisted (current) drug therapy) SCD, heparin Orders: acetaminophen, [...] XR Spine Lumbosacral 2 or 3 Views [facility]04-10-2023 Hospital Discharge instructions Patient Education 02/24/2023 11:49:54 Syncope, [id number] Syncope Syncope is when you pass out [...] pee (urine) pale yellow. General instructions Take jfxw-wfh-tbehzdc and prescription medicines only as told by [...] 04/21/2009 Document Revised: 12/16/2018 Document Reviewed: 12/16/2018 [employer] Patient Education 2020 [employer] Follow Up Care 02/24/2023 00:01:37 With:Robin Ponce Address: [address] [facility] [place] [address]- Business (1) When: Unknown Comments:Office is closed for lunch between Noon and 1 p.m. Please contact office for follow up appointment.Thank you! With:SHAIKH MARY Address: [address] [place] [address] Business (1) When:5 to 7 days Comments:Not a patient. [facility]04-10-2023 NoteFisher [facility]. [facility] Pediatric HospitalComment on above:Result Comment: Electronically Signed By: Sunshine DUARTE DO\.br\Date and Time Signed: 02/24/23 03:41 EDTEvaluation noteNo assessment information availableWilson Health Work Phone: Hospital course Narrative No data available for this section [facility] No data available for this section [facility] Summary Purpose Family History No Family [...] 10:10pm Discharge Instructions * Discharge Instr - JSOH* Karla Call RN - 09/01/2020 11:36 AM [...] Assisted Dressing Independent Toileting Assisted Feeding Independent Band Salvager Independent Med Delivery whole Wound Care Documentation [...] Agency Name: [facility] FAX [id number] [address] [facility] [address] Address: Phone: Fax: Dialysis Facility (if applicable) Name: Address: Dialysis Schedule: Phone: Fax: [employer] Presser/High Speed Printer Operator signature: EDT PHYSICIAN SECTION Prognosis: Good Condition at Discharge: Stable Rehab Potential (if transferring to Rehab): {Prognosis:[id number]} Recommended Labs or Other Treatments After Discharge: [...] called to the trauma nurse line at [phone] and please leave a message. Trauma is a life-threatening condition. Your doctor will want to closely monitor you. Be sure to goto all of your appointments. * Attachments The following attachments cannot be sent through Care Everywhere. * Fall Prevention (Arabic) * Falls: Get Up Safely Instruction (Arabic) * Vasovagal Syncope (Arabic) documented in this encounter History of Present [...] 4 wheeled walker, Cane, Quad cane, Crutches, Alteration Specialist, Sock aid(pt reported no use of DME at baseline) ADL Assistance: Independent Homemaking Assistance: Independent Homemaking Responsibilities: Yes Meal Prep Responsibility: Primary Laundry Responsibility: Primary Cleaning Responsibility: Primary Ambulation Assistance: Independent Transfer Assistance: Independent Active Air Pollution Compliance Inspector: Yes Mode of Transportation: Car Occupation: Retired [...] like L LE was going to [facility] functional mobility. pt with no [...] L LE. pt unable to identify when narrative writer was touching L UE (on elbow [...] Plan Times per week: 3-5x/wk AM-PAC Score [facility] Inpatient Daily Activity Raw Score: 16 (09/01/201440) [facility] Inpatient ADL T-Scale Score : 35.96 (09/01/201440) ADL Inpatient CMS 0-100% Score: 53.32 (09/01/201440) ADL Inpatient [facility] G-Code Modifier : CK (09/01/201440) Goals Short [...] activity in order to increase coordination and treasury specialist strength to L hand Short term goal 6: dem SBA during functional transfers/functional mobility with LRD, as needed Therapy Time Individual Concurrent Group Co-treatment Time In 1316 Time Out 1404 Minutes 48 Variance: 40 Debi Marques OTR/L * Taya Bergeron, VENEER SUPERVISOR - 09/01/2020 11:39 AM EDT Speech Language Pathology Facility/Department: [address] ORTHO/MED SURG Initial Speech/Language/Cognitive Assessment NAME: [...] the bathtub. +LOC, on Plavix. Taken to [place] where a stroke alert was initiated. CT head at 6pm today at [place] did not show intracranial bleed. Transferred to [place] for trauma and neurology work-up. Upon arrival, Pt without neurological deficit, GCS 15, c/o REYNA. Pt deemed hemodynamically stable and was sent to CT. Pain: Pain Assessment Pain Assessment: Faces Pain Level: 0 Assessment: Pt presents with mild-moderate cognitive deficits characterized by difficulty with immediate and short-term memory, verbal reasoning skills, and word associations. Pt. KING SALMON, which may haveaffected results of evaluation. Multiple repetitions provided throughout evaluation. Pt. Presents with no dysarthria, no O/M deficits at this time. ST to follow up and provide treatment to address noted deficits. Education provided. Recommendations: Requires VENEER SUPERVISOR Intervention: Yes Duration/Frequency of Treatment: 3-5X/week D/C [...] 1126 Minutes 12 Completed by: Debi Andrade Superintendent Storage Area Clinician Cosigned By: Taya Bergeron M.A.CCC/VENEER SUPERVISOR 09/01/2020 11:40 AM * Caleb Jefferson MD [...] MD 09/01/2020 4:00 PM * Nader Petit, LEAD MATERIAL HANDLER - 09/01/2020 10:02 AM EDT Physical Therapy Facility/Department: [address] ORTHO/MED SURG Daily Treatment Note NAME: [...] Safe use of RW Barriers to Learning: KING SALMON REQUIRES PT FOLLOW UP: Yes Activity Tolerance [...] 44 Timed Code Treatment Minutes: 40 Minutes LEAD MATERIAL HANDLER returned to pt's room to have her attempt stair management, to return home safely Individual Individual Time In 1140 Time Out 1205 Minutes 25 Timed Code Treatment Minutes: 9 Minutes (a doctor interrupted PT, to assess the pt) Nader Petit, LEAD MATERIAL HANDLER * Debi Marques OT - 09/01/2020 8:34 [...] 08/31/2020 3:09 PM EDT Physical Therapy Facility/Department: [facility] ED Initial Assessment NAME: Yeyo Avila [...] Ambulation Assistance: Independent Transfer Assistance: Independent Active Air Pollution Compliance Inspector: Yes Mode of Transportation: Car Occupation: Retired [...] section and content) DATE CREATED AUTHOR 04/06/2019 [facility] DATE CREATED AUTHOR AUTHOR'S ORGANIZ ATION 09/12/2020 [facility] DATE CREATED AUTHOR AUTHOR'S ORGANIZ ATION 03/28/2021 [facility] DATE CREATED AUTHOR AUTHOR'S ORGANIZ ATION 03/03/2022 [facility] [place] DATE CREATED AUTHOR AUTHOR'S ORGANIZ ATION 04/25/2023 [facility] DATE CREATED AUTHOR AUTHOR'S ORGANIZ ATION 12/04/2023 [facility] DATE CREATED AUTHOR AUTHOR'S ORGANIZ ATION [facility]2024 [facility] Reason for Visit (unrecogniz ed section and content) Reason Comments Fall Trauma Status Reason Specialty Diagnoses / Procedures Referre d By Contact Referred To Contact Diagnoses Syncope and collapse Procedures Syncope and collapse Hermelindo Adkins MD [address] [facility] [address] [place] [address] [facility] Care Teams (unrecognized sec tion and [...] BE BASED ON THE PRIMARY CLINICAL RECORDS. [employer] [facility]. provides no warranty or guarantee of the accuracy or completeness of information in this document.
[2024-01-23 11:13] LABS: Anion Gap 16.2; BUN Creatinine Ratio 12.6; Calcium 8.6 mg/dL (8.5-10.1); Carbon Dioxide 23.5 mmol/L (21.0-32.0); Chloride 102 mmol/L (98-107); Estimated GFR (African America 60 (>=60); Estimated GFR (Non-African Ame 49 (>=60); Glucose 280 mg/dL (74-106); Potassium 3.7 mmol/L (3.5-5.1); Sodium 138 mmol/L (136-145)
== END 2024-01-23 08:46 | disposition home or self-care (01) ==
LOC: LAB 08:45
PROVIDERS: PCP Family Medicine; Visit Provider Family Medicine
DX: I50.41 Acute combined systolic (congestive) and diastolic (congestive) heart failure (principal)
CPT/HCPCS: 36415; 80048

== ENCOUNTER 2024-02-18 10:24 | Outpatient (OUT) | payer MEDICARE, SELFPAY ==
--- NOTE | 2024-02-18 10:30 | CA_ITS ---
[facility] Test Date: 2024-03-01 Pat Name: MARTHA AVILA Department: Room: - Gender: Female Target Man: : 1955 Requested By: ROBIN PONCE Order Number: [id number] Reading MD: ESTELA JACOBS Interpretive Statements Predominant rhythm is sinus with average rate of 75 bpm Tachycardia - max rate of 112 bpm (PSVT) - 1 episode of PSVT w/ duration of 13 beats - longest episode of 34sec with rates between 101-103 bpm Bradycardia - min rate of 54 bpm - longest episode of 15min 7sec with rates between 57-59 bpm Ventricular ectopy - 746 tota., <1% - 746 PVC Patient triggered events: none Impression: Predominant rhythm is sinus with average rate of 75 bpm Fastest rate of 112 bpm (PSVT) and slowest rate of 54 bpm 746 PVC No atrial fib No pauses or blocks Electronically Signed On 03-02-2024 6:52:54 EDT by ESTELA JACOBS
--- OUTSIDE RECORDS SUMMARY | 2024-02-18 10:50 | XMS_ITS | CCD ---
Author Organization [facility] Care Team Providers Care Bsa/Aml Compliance Officer Name Role Phone Robin Ponce Primary Care Provider HERMELINDO ADKINS Consulting Unavailable ROBIN PONCE Primary Care Unavailable HERMELINDO ADKINS Attending Unavailable HERMELINDO ADKINS Admitting Unavailable GENEVIEVELONDON Consulting Unavailable ELTAJES, EHAB A Attending Unavailable CONCEPCIÓN EHAB A Admitting Unavailable ROBIN PONCE Referring Unavailable ROBIN PONCE Primary Care Unavailable MD Darby Hernandez Primary Care Provider MD Ese Tan Attending Provider SHAIKH HERNANDEZ Primary Care Physician [phone] DR DANK JOHNSON Admitting UnavailDR ROBIN Marie Primary Care Unavailable DR DANK JOHNSON Attending UnavailREYNA Ni Consulting UnavailLISSETT Simon Consulting Unavailable DR ROBIN SEGOVIA Primary Care Unavailable FAVIO Bingham, JEFFRY Admitting Unavailable SHELLEY II, TIMOTEO Consulting Unavailable TAMYAHAIRA Bingham, JEFFRY Attending Unavailable FAVIO ., JEFFRY Consulting Unavailable FILUTZE, CHITO Consulting Unavailable SHAIK HERNANDEZH H Admitting Unavailable SHAIKH Enio HERNANDEZ Attending Unavailable SHAIKH Enio HERNANDEZ Primary Care Unavailable DR ROBIN SEGOVIA Admitting Unavailable DR ROBIN SEGOVIA Attending Unavailable DR ROBIN SEGOVIA Consulting Unavailable SHAIKH Enio HERNANDEZ Primary Care Unavailable MISC, DR SONI Admitting Unavailable MISC, DR SONI Attending Unavailable MISC, DR SONI Consulting Unavailable KRIS Bingham, DR KELLY Primary Care Unavailable KATELYN, DR [...] Consulting Unavailable Robin Ponce Primary Care Physician Arturo DOLAN Attending Unavailable DOLAN, Arturo Btaes Referring Unavailable DOLAN, Arturo R Admitting Unavailable DOLANArturo R Attending Unavailable OJUKWU, Mbanefo Attending Unavailable FAWWAD, TRENT Primary Care Unavailable Sunshine DUARTE Admitting Unavailable Hajdari, Astrit H Attending Unavailable FAWWAD, TRENT Primary Care Unavailable Arturo DOLAN Attending Unavailable MAGDALENO, Arturo Bates Attending Unavailable JONO LOPEZ Attending Unavailable ELTAJES, EH Attending Unavailable MARLYNALEXIA Cooper Attending Unavailable WITHJONO LUI Attending Unavailable Allergies Allergy Classification Reported Allergen(s) Allergy Type Date of Onset Reaction(s) Facility Angiotensin Converting Enzyme (RYANNE) Inhibitors (1 source) Lisinopril Drug Allergy [facility] Anti-Epileptic Agents (1 source) topiramate Drug Allergy 011 [facility] Berries (1 source) Delmar Food Allergy [facility] Cats (1 source) Cat Animal Allergy (Dander) [facility] Dextroamphetamine (1 source) Dextroamphetamine Drug Allergy 011 [facility] Iodine (and Iodine containting drugs) (1 source) Iodine (And Iodine Containting Drugs) Drug Allergy [facility] Unclassified (2 sources) BLUE DYE; Translations: [BLUE DYE] Drug allergy (disorder) 009 [facility] (7 sources) Aspirin; Translations: [Aspirin] Drug Allergy [facility] Comment on above: uncoded aspirin (5 sources) atorvastatin; Translations: [atorvastatin] Drug Allergy Unknown Reaction [facility] (8 sources) Lisinopril; Translations: [Lisinopril] Drug Allergy Swelling of Lip/Tongue/Th roat, morphine [facility] (2 sources) Morphine; Translations: [morphine] Drug Allergy [facility] (4 sources) strawberry allergenic extract; Translations: [Delmar] Drug Allergy [facility] (5 sources) topiramate; Translations: [topiramate] Drug Allergy Urticaria (disorder) [facility] (1 source) cat dander Allergy to substance [facility] (2 sources) Iodinated Contrast Media; Translations: [IODINATED CONTRAST MEDIA] Allergy to substance [facility] (4 sources) Contrast media; Translations: [Contrast Dye] Drug allergy Urticaria (disorder) [facility] (4 sources) Delmar; Translations: [Strawberries] Drug allergy Urticaria (disorder) [facility] (4 sources) SUMAtriptan; Translations: [sumatriptan] Drug Allergy [facility] (1 source) Acetaminophen / Aspirin / Caffeine Drug Allergy [facility] (2 sources) Dextroamphetamine; Translations: [Lipitor] Drug Allergy [facility] (2 sources) Iodine (And Iodine Containting Drugs) Drug allergy (disorder) [facility] (1 source) Ketorolac Drug Allergy [facility] (1 source) Plasmin Drug Allergy [facility] (3 sources) topiramate; Translations: [Topamax] Drug Allergy [facility] (2 sources) Dhe Drug allergy (disorder) [facility] (2 sources) Cat/Feline Product Derivatives Drug allergy (disorder) [facility] (1 source) Iodine; Translations: [IODINE] Drug Allergy [facility] (1 source) CAT/FELINE PRODUCTS; Translations: [CAT/FELINE PRODUCTS] Propensity to adverse reactions to drug (disorder) 0[facility] Medications Current Medications Medication Drug [...] by mouth every six hours as needed bbtvqdmemf-zxuqwujitizgn-zycalsct (DAISY CET, ESGIC) 50-325-40 MG per tablet [...] for 3 day(s), 15 tab(s), Refill(s) 0, [facility]/pharmacy #[id number], 165, cm, 07/13/23 11:34:00 EDT, [...] Start: 08-22-2020 take 1 capsule by mo uth once daily DULoxetine (CYMBALTA) 60 MG extended [...] Start: 06-01-2020 take 1 capsule by mo uth four times daily as needed for anxiety [...] administer the echo contrast. polyethylene glycol 3350 21845 mg powder for oral solution (1 source) [...] Care, After every IV line use, Starting [facility] 08/31/20 at 0353 Start: 08-30-2020 0.9 [...] 02-14-2023 12-05-2021 Chronic Congestive heart failure; nonhypertensive (5 sources) Heart failure, unspecified; Translations: [Acute combined systolic (congestive) and diastolic (congestive) heart failure] Onset: 03-10-2023 Chronic Coronary atherosclerosis and other heart disease (10 sources) Coronary arteriosclerosis; Translations: [Atherosclerotic heart disease of [place] coronary artery without angina pectoris] Onset: 02-24-2023 [...] sources) Diverticular disease 01-28-2014 Chronic Esophageal disorders (3 sources) Gastro-esophageal reflux disease without esophagitis; Translations: [GERD WITHOUT ESOPHAGITIS] Onset: 03-10-2023 Chronic Essential hypertension (11 sources) Hypertensive disorder; [...] use of drug therapy; Translations: [Other 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 treater (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) drug 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] Onset: 02-24-2023 Episodic Other aftercare (1 source) 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; Translations: [INTERMEDIATE CURRENT USE OF INSULIN] Onset: 04-16-2023 Episodic Other aftercare (1 source) Other residential (current) drug therapy; Translations: [OTH INTERMEDIATE CURRENT [...] NO RESID DEFICIT] Onset: 04-16-2023 Episodic Other circulatory disease (2 sources) Personal history of other diseases of the circulatory system; Translations: [Personal history of other diseases of the circulatory system] Onset: 01-14-2024 Episodic Other connective tissue disease (3 sources) Fibromyositis 01-28-2014 Episodic Other connective tissue disease (1 source) Fibromyalgia; Translations: [FIBROMYALGIA] Onset: 04-16-2023 Episodic Other diseases of kidney and ureters (1 source) Cyst of kidney 11-12-2023 Episodic Other gastrointestinal disorders (2 sources) Dysphagia, unspecified; Translations: [Dysphagia, unspecified] Onset: 01-14-2024 Episodic Other injuries and conditions due to [...] BOTH CERVIX AND UTERUS] Onset: 04-03-2023 Episodic Residual codes; unclassified (2 sources) Other specified postprocedural states; Translations: [Other specified postprocedural states] Onset: 01-14-2024 Episodic Substance-related disorders (4 sources) Smoker; Translations: [...] and giddiness; Translations: [Dizziness and giddiness] Onset: 03-10-2023 Episodic E Codes: Fall (1 source) Unspecified fall, initial encounter; Translations: [UNSPECIFIED FALL INITIAL ENCOUNTER] Onset: 2022 Episodic Nonspecific chest pain (8 sources) Left sided chest pain; Translations: [Chest pain, unspecified] Onset: 03-10-2023 03-20-2021 Episodic Other aftercare (1 source) nursing home (current) use of antithrombotics/anti platelets; Translations: [RADIOLOGICAL TECHNOLOGIST ANTITHROMBOT/ANTIPLA TLETS] Onset: 2022 Episodic Other aftercare (1 source) 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; Translations: [INTERMEDIATE CURRENT USE OF ASPIRIN] Onset: 2022 Episodic Other aftercare (1 source) 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) use of oral hypoglycemic drugs; Translations: [RADIOLOGICAL TECHNOLOGIST USE ORAL HYPOGLYCEMIC DX] Onset: 2022 Episodic [...] Test Name Value Interpretation Reference Range Facility 36on 02-05-2024 36 PT DAUGHTER STATES SHE IS ON VACATION, SHE FELICIA;L CALL THE OFFICE NEXT WEEK [facility] 36on 01-28-2024 36 I have been tying to call pt for about a week, no vm 01/27 Normal [facility] Telephoneon 01-15-2024 Telephone [id number] Yeyo Avila S 1955 F Date Provider Department Center 01/15/2024 KISHAN DONOHUE CARD [facility] No family history on file [facility] Office Visiton 01-14-2024 Follow-up visit [id number] Yeyo Avila S 1955 F Date Provider Department Center 01/14/2024 Jesse-REBEKA PARDO CARD [facility] No family history on file Level of Service:42303 OR OFFICE/OUTPATIENT ESTABLISHED MOD MDM 30 MIN [facility] Lab Reportson 01-06-2024 Lab Reports [id number] #1.00TIFF Normal [facility] Lab Reports [id number] #1.00TIFF Normal [facility] Lab Reports [id number] #1.00TIFF Normal [facility] Lab Reportson 01-05-2024 Lab Reports [id number] #1.00TIFF Normal [facility] Lab Reportson 01-02-2024 Lab Reports [id number] #1.00TIFF Normal [facility] Lab Reports [id number] #1.00TIFF Normal [facility] Consent for Procedure/Surger yon 12-30-2023 Consent for Procedure/Surgery [id number] 7#1.00TIFF Normal [facility] Consent for Treatmenton 12-18 Consent for Treatment [id number] #1.00TIFF Normal [facility] IntraOperative Documentson 0 12-30-2023 IntraOperative Documents [id number]#1.00TIFF Normal [facility] Main OR Intraoperative Recor don 12-30-2023 Main OR Intraoperative Record Normal [facility] Main OR Preoperative Recordo n 12-30-2023 Main OR Preoperative Record Normal [facility] Operative Reporton 4 Operative Report Normal [facility] Comment on above: Result Comment: Elec tronically Signed By: MAGDALENO PRADO, Arturo Rodriguezbr\Date and Time Signed: 12/30/23 11:59 EST Patient Educationon 12-30-19 Patient Education Normal [facility] Lab Reportson 12-29-2023 Lab Reports [id number] #1.00TIFF Normal [facility] Lab Reportson 12-19-2023 Lab Reports [id number] #1.00TIFF Normal [facility] Lab Reports [id number] #1.00TIFF Normal [facility] Operative Reporton 4 Operative Report [id number] #1.00TIFF Normal [facility] Lab Reportson 12-12-2023 Lab Reports [id number] #1.00TIFF Normal [facility] Lab Reports [id number]# 1.00TIFF Normal [facility] Consultation Noteon 12-04-19 Consultation Note [id number] #1.00TIFF Normal [facility] Formson 12-04-2023 Forms [id number]# 1.00TIFF Normal [facility] Documentationon 12-03-2023 Documentation [id number] Yeyo Avila 1955 F Date Provider Department Center 12/03/2023 Adryan-ALEXIA CLINE CARD [facility]. No family history on file [facility] Consent for Procedure/Surger yon 11-28-2023 Consent for Procedure/Surgery [id number] 9#1.00TIFF Normal [facility] RAD - MISCon 11-19-2023 RAD - MISC [id number] #1.00TIFF Normal [facility] Consent for Procedure/Surger yon 11-13-2023 Consent for Procedure/Surgery [id number] #1.00TIFF Normal [facility] ECG 12-Leadon 11-13-2023 ECG 12-Lead [id number] #1.00TIFF Normal [facility] Lab Reportson 11-13-2023 Lab Reports [id number] #1.00TIFF [facility] Operative Reporton Operative Report [id number] #1.00TIFF Normal [facility] RAD - MISCon 11-13-2023 RAD - MISC [id number] #1.00TIFF Normal [facility] Ambulatory Visit Summaryon 1 01-13-2023 Ambulatory Visit Summary Normal [facility] Ambulatory Visit Summary Normal [facility] ECG 12-Leadon 11-12-2023 ECG 12-Lead [id number] #1.00TIFF Normal [facility] ED Note-Physicianon 11-12-20 ED Note-Physician [id number] #1.00TIFF Normal [facility] Lab Reportson 11-12-2023 Lab Reports [id number] #1.00TIFF Normal [facility] Patient Educationon 11-12-20 Patient Education [facility] RAD - CT Reporton 11-12-2023 RAD - CT Report [id number] #1.00TIFF Normal [facility] Urology Office/Clinic Noteon 11-12-2023 Urology Office/Clinic Note [facility] Comment on above: Result Comment: Elec tronically Signed By: Arturo DOLAN MD\.br\Date and Time Signed: 11/12/23 10:49 EST\.br\Electronically Co-Signed By: Francie Myers\.br\Date and Time Co-Signed: 11/12/23 10:44 EST Consent for Treatmenton 06-18 Consent for Treatment [id number] #1.00CD:127 [facility] Discharge Instructionson Discharge Instructions [id number] #1.00CD:127 Normal [facility] ED Clinical Summaryon 2022 ED Clinical Summary Normal [facility] ED Note-Physicianon 07-13-20 ED Note-Physician [facility] Comment on above: Result Comment: Elec tronically Signed By: Mathew Montana PA-C\.br\Date and Time Signed: 07/13/23 12:04 EDT\.br\Electronically Co-Signed By: Zaki Muñoz M.D.\.br\Date and Time Co-Signed: 07/13/23 12:37 EDT ED Patient Education Noteon 07-13-2023 ED Patient Education Note [facility] ED Patient Summaryon 023 ED Patient Summary Normal [facility] Office Visiton 07-08-2023 Follow-up visit [id number] Yeyo Avila 1955 F Date Provider Department Center 07/08/2023 120-ALEXIA CLINE [facility] No family history on file Level of Service:46855 OR OFFICE/OUTPATIENT ESTABLISHED MOD MDM 30-39 MIN Reason for Visit and Comments: Hospital Follow-up [832] - Chest pain Normal [facility] Office Visiton 04-25-2023 Follow-up visit [id number] Yeyo Avila 1955 F Date Provider Department Center 04/25/2023 [id number] LOPEZ [facility] No family history on file Level of Service:99122 OR OFFICE/OUTPATIENT ESTABLISHED LOW MDM 20-29 MIN Normal [facility] POINT OF CARE GLUCOSEon 03-19 Glucose [Mass/Vol] 90 mg/dL Normal 74-106 [facility] Comment on above: Performed By: #### P OCGLUC #### [facility] [address] [address] [address] Win Ardon CARDIAC STRESS TESTon 2022 [...] and reported nuclear myocardial perfusion imaging. Normal [facility] CBC AUTO DIFFon 04-01-2023 BASO # 0.1 103/ul Normal 0.0-0.1 [facility] Comment on above: Performed By: #### C BC #### [facility] [address] [address] [address] Win Ardon Basophils/100 WBC (Bld) 1.3 % Normal 0.2-2.0 [facility] Comment on above: Performed By: #### C BC #### [facility] [address] [address] [address] Win Ardon EO # 0.4 103/ul Normal 0.0-0.7 [facility] Comment on above: Performed By: #### C BC #### [facility] [address] [address] [address] Win Ardon Eosinophils/100 WBC (Bld) 4.1 % Normal 0.9-7.0 [facility] Comment on above: Performed By: #### C BC #### [facility] [address] [place] [address] Dr. Win Ardon Erythrocyte distribution width (RBC) [Ratio] 13.3 % Normal 11.0-15.0 [facility] Comment on above: Performed By: #### C BC #### [facility] [address] [address] [address] Win Ardon Hematocrit (Bld) [Volume fraction] 38.9 % Normal 36.0-48.0 [facility] Comment on above: Performed By: #### C BC #### [facility] [address] [address] [address] Win Ardon Hemoglobin (Bld) [Mass/Vol] 13.2 g/dL Normal 12.0-16.0 [facility] Comment on above: Performed By: #### C BC #### [facility] [address] [address] [address] Win Ardon IG # 0.04 10e3/ul Critically high 0.00-0.03 [facility] Comment on above: Performed By: #### C BC #### [facility] [address] [address] [address] Win Ardon IG % 0.4 % Normal 0.0-0.5 [facility] Comment on above: Performed By: #### C BC #### [facility] [address] [place] [address] Dr. Win Ardon LYMPH # 3.2 103/ul Normal 1.2-3.8 [facility] Comment on above: Performed By: #### C BC #### [facility] [address] [place] [address] Dr. Win Ardon Lymphocytes/100 WBC (Bld) 34.7 % Normal 20.5-60.0 [facility] Comment on above: Performed By: #### C BC #### [facility] [address] [place] [address] Dr. Win Ardon MANUAL DIFF REQ NO Normal [facility] Comment on above: Performed By: #### C BC #### [facility] [address] [place] [address] Dr. Win Ardon MCH (RBC) [Entitic mass] 31.3 pg Normal 26.7-34.0 [facility] Comment on above: Performed By: #### C BC #### [facility] [address] [place] [address] Dr. Win Ardon MCHC (RBC) [Mass/Vol] 33.9 g/dL Normal 29.9-35.2 [facility] Comment on above: Performed By: #### C BC #### [facility] [address] [place] [address] Dr. Win Ardon MCV (RBC) [Entitic vol] 92.2 fL Normal 81.0-99.0 [facility] Comment on above: Performed By: #### C BC #### [facility] [address] [place] [address] Dr. Win Ardon MONO # 0.7 103/ul Normal 0.3-0.8 [facility] Comment on above: Performed By: #### C BC #### [facility] [address] [place] [address] Dr. Win Ardon Monocytes/100 WBC (Bld) 7.1 % Normal 1.7-12.0 [facility] Comment on above: Performed By: #### C BC #### [facility] [address] [place] [address] Dr. Win Ardon NEUT # 4.9 103/ul Normal 1.4-6.5 [facility] Comment on above: Performed By: #### C BC #### [facility] [address] [place] [address] Dr. Win Ardon Neutrophils/100 WBC (Bld) 52.4 % Normal 43.0-75.0 [facility] Comment on above: Performed By: #### C BC #### [facility] [address] [place] [address] Dr. Win Ardon Platelet mean volume (Bld) [Entitic vol] 10.6 fL Normal 9.5-13.5 [facility] Comment on above: Performed By: #### C BC #### [facility] [address] [place] [address] Dr. Win Ardon PLT 231 103/ul Normal 150-450 [facility] Comment on above: Performed By: #### C BC #### [facility] [address] [place] [address] Dr. Win Ardon RBC 4.22 106/ul Normal 4.20-5.40 [facility] Comment on above: Performed By: #### C BC #### [facility] [address] [place] [address] Dr. Win Ardon WBC 9.3 103/ul Normal 4.0-11.0 [facility] Comment on above: Performed By: #### C BC #### [facility] [address] [place] [address] ABD/PELVIS WO CONon [...] by: LISSETT ALAN Date: 2023-04-01 20:[address] [facility] LACTATE/LACTIC ACIDon 2022 Lactate [Moles/Vol] 1.2 mmol/L Normal 0.4-2.0 [facility] Comment on above: Performed By: #### L ACT #### [facility] [address] [address] [address] Win Ardon CO STRESS/REST MULTIon 04-01 CO STRESS/REST MULTI Patient: YEYO AVILA Exam Date: 04/01/2023 : 1955 Gender:F Ordering : MRS. 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 Order #: [id number] CLICK HERE TO VIEW EXAM RADIOLOGY REPORT [...] Clark M.D. on 04/02/2023 at 11:[address] [facility] OCC BLD IMMUNO SCREENon 03-17 OCCULT BLOOD Positive Abnormal NEGATIVE [facility] Comment on above: Performed By: #### O BSCRN #### [facility] [address] [address] [address] Win Ardon PROF 14(COMP METB)on 023 Albumin [Mass/Vol] 3.8 g/dL Normal 3.4-5.0 [facility] Comment on above: Performed By: #### C MP ####[facility] [address] [address]DrOtilia Ardon Albumin/Globulin [Mass ratio] 1.1 {ratio} Normal [facility] Comment on above: Performed By: #### C MP ####[facility] [address] [address]Dr[address] Win Ardon ALP [Catalytic activity/Vol] 99 U/L Normal 46-116 [facility] Comment on above: Performed By: #### C MP ####[facility] [address] [address]Dr[address] Win Ardon ALT [Catalytic activity/Vol] 17 U/L Normal 14-59 [facility] Comment on above: Performed By: #### C MP ####[facility] [address] [address]Dr[address] Win Ardon Anion gap [Moles/Vol] 13.4 mmol/L Normal [facility] Comment on above: Performed By: #### C MP ####[facility] [address] [place], [place] [address]Dr. Win Ardon AST [Catalytic activity/Vol] 11 U/L Critically low 15-37 [facility] Comment on above: Performed By: #### C MP ####[facility] [address] [place], [place] [address]Dr. Win Ardon Bilirubin [Mass/Vol] 0.6 mg/dL Normal 0.2-1.0 [facility] Comment on above: Performed By: #### C MP ####[facility] [address] [place], [place] [address]Dr. Win Ardon Calcium [Mass/Vol] 9.1 mg/dL Normal 8.5-10.1 [facility] Comment on above: Performed By: #### C MP ####[facility] D[address]mpaqiedh[address] [place], [place] [address]Dr. Win Ardon Chloride [Moles/Vol] 106 mmol/L Normal 98-107 [facility] Comment on above: Performed By: #### C MP ####[facility] Mobauokvtf[address] [place], [place] [address]Dr. Claudiaaida Duglas CO2 [Moles/Vol] 29.2 mmol/L Normal 21.0-32.0 [facility] Comment on above: Performed By: #### C MP ####[facility] [address]mpn[address] [place], [place] [address]Dr. Win Ardon Creatinine [Mass/Vol] 0.95 mg/dL Normal 0.55-1.02 [facility] Comment on above: Performed By: #### C MP ####[facility] Sw[address]mweq[address] [place], [place] [address]Dr. Claudiaaida Duglas EGFR-AF IRISH >60 Normal >=60 [facility] Comment on above: Performed By: #### C MP ####[facility] [address]qprxgjty[address] [place], [place] [address]Dr. Win Ardon EGFR-NON AF IRISH 59 mL/min/1.73m2 Critically low >=60 [facility] Comment on above: Performed By: #### C MP ####[facility] [address] [place] [address]Dr. Win Duglas Globulin (S) [Mass/Vol] 3.4 g/dL Normal [facility] Comment on above: Performed By: #### C MP ####[facility] Jglflcbzuq[address] [place], [place] [address]Dr. Win Duglas Glucose [Mass/Vol] 162 mg/dL Critically high 74-106 [facility] Comment on above: Performed By: #### C MP ####[facility] W[address]xzwo[address] [place], [place] [address]Dr. Win Ardon Potassium [Moles/Vol] 3.6 mmol/L Normal 3.5-5.1 [facility] Comment on above: Performed By: #### C MP ####[facility] [address] [place], [place] [address]Dr. Claudiaaida Ardon Protein [Mass/Vol] 7.2 g/dL Normal 6.4-8.2 [facility] Comment on above: Performed By: #### C MP ####[facility] Rmvccsynfx[address] [place], [place] [address]Dr. Win Ardon Sodium [Moles/Vol] 145 mmol/L Normal 136-145 [facility] Comment on above: Performed By: #### C MP ####[facility] Weiobhuwam[address] [place], [place] [address]Dr. Claudiaaida Ardon Urea nitrogen [Mass/Vol] 14.0 mg/dL Normal 7.0-18.0 [facility] Comment on above: Performed By: #### C MP ####[facility] V[address]wapjv[address] [place], [place] [address]Dr. Win Ardon Urea nitrogen/Creatinine [Mass ratio] 14.7 mg/mg Normal [facility] Comment on above: Performed By: #### C MP ####[facility] Hxpgtnwnmh[address] [place], [place] [address]Dr. Win Ardon PROTIMEon 05-16-2023 INR Coag (PPP) [Relative time] 1.02 {INR} Normal [facility] Comment on above: Performed By: #### P TT, PT ####[facility] Z[address] [place], [place] [address]DrOtilia Ardon INR GUIDELINES SEE BELOW Normal [facility] Comment on above: Result Comment: MAGDA RED INR: 2.0 - 3.0 CONDITIONS NOT LISTED BELOW 2.5 - 3.5 FOR PROSTHETIC HEART VALVE REPLACEMENT 2.5 - 3.5 RECURRENT THROMBOSIS Performed By: #### P TT, PT ####[facility] [address] [place], [place] [address]DrOtilia Ardon PT Coag (PPP) [Time] 10.8 s Normal 9.0-11.6 [facility] Comment on above: Performed By: #### P TT, PT ####[facility] [address]tw[address] [place], [place] [address]DrOtilia Ardon PTTon 04-01-2023 aPTT Coag (Bld) [Time] 26.5 s Normal 22.3-36.2 [facility] Comment on above: Performed By: #### P TT, PT ####[facility] D[address] [place], [place] [address]DrOtilia Ardon TYPE AND SCREENon 04-01-2023 TYPE AND SCREEN Negative Normal [facility] Comment on above: Performed By: #### T NS ####[facility] B[address]wqa[address] [place], [place] [address]DrOtilia Ardon CBC AUTO DIFFon 03-24-2023 BASO # 0.1 103/ul Normal 0.0-0.1 [facility] Comment on above: Performed By: #### C BC ####[facility] Qu[address]jkg[address] [place], [place] [address]DrOtilia Ardon Basophils/100 WBC (Bld) 1.0 % Normal 0.2-2.0 [facility] Comment on above: Performed By: #### C BC ####[facility] E[address]fr[address] [place], [place] [address]DrOtilia Ardon EO # 0.3 103/ul Normal 0.0-0.7 [facility] Comment on above: Performed By: #### C BC ####[facility] [address] [place] [address]Dr. Win Ardon Eosinophils/100 WBC (Bld) 3.3 % Normal 0.9-7.0 [facility] Comment on above: Performed By: #### C BC ####[facility] S[address] [place], [place] [address]Dr. Win Ardon Erythrocyte distribution width (RBC) [Ratio] 13.2 % Normal 11.0-15.0 [facility] Comment on above: Performed By: #### C BC ####[facility] P[address]wujrp[address] [place], [place] [address]Dr. Win Ardon Hematocrit (Bld) [Volume fraction] 41.3 % Normal 36.0-48.0 [facility] Comment on above: Performed By: #### C BC ####[facility] [address]nlwlnp[address] [place], [place] [address]Dr. Win Ardon Hemoglobin (Bld) [Mass/Vol] 13.6 g/dL Normal 12.0-16.0 [facility] Comment on above: Performed By: #### C BC ####[facility] [address]qsabfv[address] [place], [place] [address]Dr. Win Ardon IG # 0.04 10e3/ul Critically high 0.00-0.03 [facility] Comment on above: Performed By: #### C BC ####[facility] I[address]wtkeh[address] [place], [place] [address]Dr. Win Ardon IG % 0.4 % Normal 0.0-0.5 [facility] Comment on above: Performed By: #### C BC ####[facility] O[address]my[address] [place], [place] [address]DrOtilia Win Ardon LYMPH # 2.2 103/ul Normal 1.2-3.8 [facility] Comment on above: Performed By: #### C BC ####[facility] H[address]fkiz[address] [place], [place] [address]Dr. Win Ardon Lymphocytes/100 WBC (Bld) 23.8 % Normal 20.5-60.0 [facility] Comment on above: Performed By: #### C BC ####[facility] [address] [place] [address]Dr. Win Ardon MANUAL DIFF REQ NO Normal [facility] Comment on above: Performed By: #### C BC ####[facility] [address] [place] [address]Dr. Win Ardon MCH (RBC) [Entitic mass] 30.6 pg Normal 26.7-34.0 [facility] Comment on above: Performed By: #### C BC ####[facility] R[address]aknr[address] [place], [place] [address]Dr. Win Ardon MCHC (RBC) [Mass/Vol] 32.9 g/dL Normal 29.9-35.2 [facility] Comment on above: Performed By: #### C BC ####[facility] E[address]unlhxmd[address] [place], [place] [address]Dr. Win Ardon MCV (RBC) [Entitic vol] 93.0 fL Normal 81.0-99.0 [facility] Comment on above: Performed By: #### C BC ####[facility] Buytdzimab[address] [place], [place] [address]Dr. Win Ardon MONO # 0.7 103/ul Normal 0.3-0.8 [facility] Comment on above: Performed By: #### C BC ####[facility] O[address]xb[address] [place], [place] [address]Dr. Win Ardon Monocytes/100 WBC (Bld) 7.3 % Normal 1.7-12.0 [facility] Comment on above: Performed By: #### C BC ####[facility] [address] [place], [place] [address]DrOtilia Ardon NEUT # 5.8 103/ul Normal 1.4-6.5 [facility] Comment on above: Performed By: #### C BC ####[facility] Pr[address]fhzw[address] [place], [place] [address]Dr. Win Ardon Neutrophils/100 WBC (Bld) 64.2 % Normal 43.0-75.0 [facility] Comment on above: Performed By: #### C BC ####[facility] [address] [place] [address]Dr. Win Ardon Platelet mean volume (Bld) [Entitic vol] 11.0 fL Normal 9.5-13.5 [facility] Comment on above: Performed By: #### C BC ####[facility] [address] [place] [address]Dr. Win Ardon PLT 243 103/ul Normal 150-450 [facility] Comment on above: Performed By: #### C BC ####[facility] [address] [place] [address]Dr. Win Ardon RBC 4.44 106/ul Normal 4.20-5.40 [facility] Comment on above: Performed By: #### C BC ####[facility] [address] [place] [address]Dr. Win Ardon WBC 9.1 103/ul Normal 4.0-11.0 [facility] Comment on above: Performed By: #### C BC ####[facility] [address] [place] [address]Dr. Tayloraida Duglas LIPID PROFILEon 03-24-2023 CHOL-HDL RATIO NORM SEE BELOW Normal [facility] Comment on above: Result Comment: 3.3 - 4.4 LOW RISK 4.4 - 7.1 AVERAGE RISK 7.1 - 11.0 MODERATE RISK >11.0 HIGH RISK Performed By: #### C MP, LIPID #### [facility] [address] [address] [address] Win Ardon Cholesterol [Mass/Vol] 99 mg/dL Normal <=200 [facility] [place] [facility] Comment on above: Performed By: #### C MP, LIPID #### [facility] [address] [address] [address] Win Ardon Cholesterol in HDL [Mass/Vol] 34 mg/dL Critically low 40-60 [facility] Comment on above: Performed By: #### C MP, LIPID #### [facility] [address] [address] [address] Win Ardon Cholesterol in LDL [Mass/Vol] 35.8 mg/dL Normal [facility] Comment on above: Performed By: #### C MP, LIPID #### [facility] [address] [address] [address] Win Ardon Cholesterol.total/Chol esterol in HDL [Mass ratio] 2.9 {ratio} Normal [facility] Comment on above: Performed By: #### C MP, LIPID #### [facility] [address] [address] [address] Win Ardon HDL NORMAL > or = 60 mg/dl - LOW CARDIOVASCULAR RISK <40 mg/dl - HIGH CARDIOVASCULAR RISK Normal [facility] Comment on above: Performed By: #### C MP, LIPID #### [facility] [address] [place] [address] Dr. Win Ardon LDL CALC NORMAL SEE BELOW Normal [facility] Comment on above: Result Comment: <100 mg/dl OPTIMAL 100 - 129 mg/dl NEAR OR ABOVE OPTIMAL 130 - 159 mg/dl BORDERLINE HIGH 160 - 189 mg/dl HIGH >190 mg/dl VERY HIGH Performed By: #### C MP, LIPID #### [facility] [address] [place] [address] Dr. Win Ardon Triglyceride [Mass/Vol] 146 mg/dL Normal <=150 [facility] Comment on above: Performed By: #### C MP, LIPID #### [facility] [address] [address] [address] Win Ardon VLDL CALC 29.2 mg/dL Normal [facility] Comment on above: Performed By: #### C MP, LIPID #### [facility] [address] [address] [address] Win Ardon PROF 14(COMP METB)on 023 Albumin [Mass/Vol] 3.9 g/dL Normal 3.4-5.0 [facility] Comment on above: Performed By: #### C MP, LIPID #### [facility] [address] [place] [address] Dr. Win Ardon Albumin/Globulin [Mass ratio] 1.1 {ratio} Normal [facility] Comment on above: Performed By: #### C MP, LIPID #### [facility] [address] [place] [address] Dr. Win Ardon ALP [Catalytic activity/Vol] 96 U/L Normal 46-116 [facility] Comment on above: Performed By: #### C MP, LIPID #### [facility] [address] [address] [address] Win Ardon ALT [Catalytic activity/Vol] 15 U/L Normal 14-59 [facility] Comment on above: Performed By: #### C MP, LIPID #### [facility] [address] [place] [address] Dr. Win Ardon Anion gap [Moles/Vol] 12.1 mmol/L Normal [facility] Comment on above: Performed By: #### C MP, LIPID #### [facility] [address] [place] [address] Dr. Win Ardon AST [Catalytic activity/Vol] 10 U/L Critically low 15-37 [facility] Comment on above: Performed By: #### C MP, LIPID #### [facility] [address] [place] [address] Dr. Win Ardon Bilirubin [Mass/Vol] 0.8 mg/dL Normal 0.2-1.0 [facility] Comment on above: Performed By: #### C MP, LIPID #### [facility] [address] [address] [address] Win Ardon Calcium [Mass/Vol] 9.1 mg/dL Normal 8.5-10.1 [facility] Comment on above: Performed By: #### C MP, LIPID #### [facility] [address] [place] [address] Dr. Win Ardon Chloride [Moles/Vol] 102 mmol/L Normal 98-107 [facility] Comment on above: Performed By: #### C MP, LIPID #### [facility] [address] [place] [address] Dr. Win Ardon CO2 [Moles/Vol] 26.0 mmol/L Normal 21.0-32.0 [facility] Comment on above: Performed By: #### C MP, LIPID #### [facility] [address] [address] [address] Win Ardon Creatinine [Mass/Vol] 0.95 mg/dL Normal 0.55-1.02 [facility] Comment on above: Performed By: #### C MP, LIPID #### [facility] [address] [address] [address] Win Ardon EGFR-AF IRISH >60 Normal >=60 [facility] Comment on above: Performed By: #### C MP, LIPID #### [facility] [address] [address] [address] Win Ardon EGFR-NON AF IRISH 59 mL/min/1.73m2 Critically low >=60 [facility] Comment on above: Performed By: #### C MP, LIPID #### [facility] [address] [address] [address] Win Ardon Globulin (S) [Mass/Vol] 3.7 g/dL Normal [facility] Comment on above: Performed By: #### C MP, LIPID #### [facility] [address] [address] [address] Win Ardon Glucose [Mass/Vol] 336 mg/dL Critically high 74-106 [facility] Comment on above: Performed By: #### C MP, LIPID #### [facility] [address] [address] [address] Win Ardon Potassium [Moles/Vol] 4.1 mmol/L Normal 3.5-5.1 [facility] Comment on above: Performed By: #### C MP, LIPID #### [facility] [address] [address] [address] Win Ardon Protein [Mass/Vol] 7.6 g/dL Normal 6.4-8.2 [facility] Comment on above: Performed By: #### C MP, LIPID #### [facility] [address] [address] [address] Win Ardon Sodium [Moles/Vol] 136 mmol/L Normal 136-145 [facility] Comment on above: Performed By: #### C MP, LIPID #### [facility] [address] [place], [place] [address] Dr. Win Ardon Urea nitrogen [Mass/Vol] 10.0 mg/dL Normal 7.0-18.0 [facility] Comment on above: Performed By: #### C MP, LIPID #### [facility] [address] [place], [place] [address] Dr. Win Ardon Urea nitrogen/Creatinine [Mass ratio] 10.5 mg/mg Normal [facility] Comment on above: Performed By: #### C MP, LIPID #### [facility] [address] [place], [place] [address] Dr. Win Ardon EMS Documentationon 03-18-20 23 EMS Documentation Normal [facility] Office Visiton 03-10-2023 Follow-up visit [id number] Yeyo Avila 1955 F Date Provider Department Center 03/10/2023 [id number] LOPEZ [facility] No family history on file Level of Service:69030 OR OFFICE/OUTPATIENT ESTABLISHED MOD MDM 30-39 MIN Reason for Visit and Comments: Coronary Artery Disease [187] Hypertension [381066] aneurysm of thoracic aorta [Other] Normal [facility] Coding Summary.on 02-27-2023 Coding Summary. Normal [facility] EMS Documentationon 02-28-20 EMS Documentation Normal [facility] EMS Documentation Normal [facility] Auto Diffon 02-24-2023 Basophils/100 WBC (Bld) 0.3 % Normal 0.0-2.0 [facility] Comment on above: Order Comment: Order Added by Discern Expert. Performed By: #### 2 822643, [id number], 1518004, 29252719, 4174191, 97354393, 8127476 ####[facility] [address] [place] [address] Basophils/Leukocytes Auto (Bld) [Pure # fraction] 0.1 E9/L Normal 0.0-0.2 [facility] Comment on above: Order Comment: Order Added by Dereje Expert. Performed By: #### 2 211107, 04570998, 1143368, 82954746, 4102154, 29844767, 5653077 ####[facility] [address] [place] [address] Eosinophils/100 WBC (Bld) 1.4 % Normal 0.0-8.0 [facility] Comment on above: Order Comment: Order Added by Discern Expert. Performed By: #### 2 963087, 93878261, 0834968, 24991251, 7379697, 71580397, 9411811 ####[facility] [address] [place] [address] Eosinophils/Leukocytes Auto (Bld) [Pure # fraction] 0.2 E9/L Normal 0.0-0.5 [facility] Comment on above: Order Comment: Order Added by Dereje Expert. Performed By: #### 2 994816, 20121978, 9092717, 13434140, 6116948, 14531008, 2299072 ####[address] [place] [address] Lymphocytes/100 WBC (Bld) 30.2 % Normal 14.0-50.0 [facility] Comment on above: Order Comment: Order Added by Dereje Expert. Performed By: #### 2 349008, 18377848, 3259785, 95045427, 6765030, 08825235, 1119829 ####[facility] [address] [place] [address] Lymphocytes/Leukocytes Auto (Bld) [Pure # fraction] 5.1 E9/L High 1.0-4.0 [facility] Comment on above: Order Comment: Order Added by Dereje Expert. Performed By: #### 2 145876, 70303517, 1530426, 65099660, 0834014, 56763789, 4688712 ####[facility] [address] [place] [address] Monocytes/100 WBC (Bld) 8.3 % Normal 4.0-14.0 [facility] Comment on above: Order Comment: Order Added by Discern Expert. Performed By: #### 2 357280, 76302634, 3976460, 27316173, 9646557, 69947645, 7519912 ####[facility] [address] [place] [address] Monocytes/Leukocytes Auto (Bld) [Pure # fraction] 1.4 E9/L High 0.2-1.0 [facility] Comment on above: Order Comment: Order Added by Discern Expert. Performed By: #### 2 889542, 88677676, 2756815, 48073207, 6859251, 35956417, 5979277 ####[facility] [address] [place] [address] Neutrophils/100 WBC (Bld) 59.8 % Normal 36.0-75.0 [facility] Comment on above: Order Comment: Order Added by Discern Expert. Performed By: #### 2 647802, 53408881, 4496020, 63736355, 7401757, 02285488, 4133716 ####[facility] [address] [place] [address] Neutrophils/Leukocytes Auto (Bld) [Pure # fraction] 10.0 E9/L High 2.0-7.5 [facility] Comment on above: Order Comment: Order Added by Discern Expert. Performed By: #### 2 297653, 38735519, 9183458, 42868858, 2388203, 02565925, 1594326 ####[facility] [address] [place] [address] BMPon 02-24-2023 Anion gap [Moles/Vol] 8 mmol/L Normal 6-16 [facility] Comment on above: Performed By: #### 1 1598336, 90506737, 7172966, 4275717, 9318330 ####[facility] [address] [place] [address] Calcium [Mass/Vol] 8.4 mg/dL Low 8.9-11.1 [facility] Comment on above: Performed By: #### 1 2750014, 72247858, 3337199, 7383879, 7025438 ####[facility] [address] [place] [address] Chloride [Moles/Vol] 108 mmol/L Normal 101-111 [facility] Comment on above: Performed By: #### 1 7765087, 36174466, 7936880, 4319812, 0662776 ####[facility] [address] [place] [address] CO2 [Moles/Vol] 25 mmol/L Normal 21-31 [facility] Comment on above: Performed By: #### 1 4950975, 30814493, 2080647, 6781010, 8966874 ####[facility] [address] [place] [address] Creatinine [Mass/Vol] 1.2 mg/dL Normal 0.5-1.3 [facility] Comment on above: Performed By: #### 1 1448365, 96764380, 9576732, 3122638, 1977912 ####[facility] [address] [place] [address] Glucose [Mass/Vol] 102 mg/dL Normal 55-199 [facility] Comment on above: Result Comment: If t his glucose result represents a fasting glucose, interpretation should refer to the following reference range: 55-99 mg/dL Performed By: #### 1 2255595, 70307014, 9099321, 7685603, 7961360 ####[facility] [address] [place] [address] Potassium [Moles/Vol] 3.4 mmol/L Low 3.5-5.3 [facility] Comment on above: Performed By: #### 1 9884257, 93732690, 0519967, 2620713, 0858200 ####[facility] [address] [place] [address] Sodium [Moles/Vol] 138 mmol/L Normal 135-145 [facility] Comment on above: Performed By: #### 1 1484911, 32105491, 9394433, 8531609, 0146927 ####[facility] [address] [place] [address] Urea nitrogen [Mass/Vol] 30 mg/dL High 5-21 [facility] Comment on above: Performed By: #### 1 6983057, 15269831, 0173453, 7869021, 1708785 ####[facility] [address] [place] [address] Urea nitrogen/Creatinine [Mass ratio] 25 No Units High 10-20 [facility] Comment on above: Performed By: #### 1 9188696, 39374603, 1899883, 9642928, 3139759 ####[facility] [address] [place] [address] Creatinine [Mass/Vol] 1.4 mg/dL High 0.5-1.3 [facility] Comment on above: Performed By: #### 2 132058, 48559304, 8120892, 48947992, 0612024, 75555408, 4826582 ####[facility] [address] [place] [address] Urea nitrogen [Mass/Vol] 30 mg/dL High 5-21 [facility] Comment on above: Performed By: #### 2 082567, 70361594, 5407722, 48454361, 4735003, 31449919, 6039403 ####[facility] [address] [place] [address] Urea nitrogen/Creatinine [Mass ratio] 21 No Units High 10-20 [facility] Comment on above: Performed By: #### 2 110839, 64685386, 8520618, 16856850, 3043584, 08647354, 8088200 ####[facility] [address] [place] [address] Anion gap [Moles/Vol] 11 mmol/L Normal 6-16 [facility] Comment on above: Performed By: #### 2 691130, 72297307, 2318798, 40301247, 2396588, 16669567, 3988348 ####[facility] [address] [place] [address] Calcium [Mass/Vol] 8.9 mg/dL Normal 8.9-11.1 [facility] Comment on above: Performed By: #### 2 712120, 74219920, 8517564, 31240488, 6316179, 29289221, 2586310 ####[facility] [address] [place] [address] Chloride [Moles/Vol] 103 mmol/L Normal 101-111 [facility] Comment on above: Performed By: #### 2 811757, 63903208, 2131047, 23920254, 4943976, 35963599, 5857317 ####[facility] [address] [place] [address] CO2 [Moles/Vol] 26 mmol/L Normal 21-31 [facility] Comment on above: Performed By: #### 2 374905, 77446951, 0385164, 80349692, 6051138, 20103087, 3040519 ####[facility] [address] [place] [address] Glucose [Mass/Vol] 118 mg/dL Normal 55-199 [facility] Comment on above: Result Comment: If t his glucose result represents a fasting glucose, interpretation should refer to the following reference range: 55-99 mg/dL Performed By: #### 2 367656, 85760159, 1651455, 84051719, 4123860, 48405790, 7143761 ####[facility] [address] [place] [address] Potassium [Moles/Vol] 3.0 mmol/L Low 3.5-5.3 [facility] Comment on above: Performed By: #### 2 089180, 68479239, 7853915, 22504816, 0670555, 44436690, 9137594 ####[facility] [address] [place] [address] Sodium [Moles/Vol] 137 mmol/L Normal 135-145 [facility] Comment on above: Performed By: #### 2 360533, 26970544, 3223709, 99733210, 0271601, 67828246, 6640635 ####[facility] [address] [place] [address] CBC w/ Auto Diffon Erythrocyte distribution width (RBC) [Ratio] 13.5 % Normal 10.9-14.2 [facility] Comment on above: Performed By: #### 2 071261, 22234054, 1080019, 42855545, 2655453, 34074261, 8634296 ####[facility] [address] [place] [address] Hematocrit (Bld) [Volume fraction] 40.8 % Normal 34.0-46.0 [facility] Comment on above: Performed By: #### 2 621276, 96741821, 7411486, 53119018, 6088613, 83846529, 7170167 ####[facility] [address] [place] [address] Hemoglobin (Bld) [Mass/Vol] 13.8 g/dL Normal 12.0-16.0 [facility] Comment on above: Performed By: #### 2 963708, 47117634, 9410557, 38756023, 4879213, 71483576, 9526435 ####[facility] [address] [place] [address] MCH (RBC) [Entitic mass] 29.6 pg Normal 27.0-34.0 [facility] Comment on above: Performed By: #### 2 308648, 50767113, 1943628, 25291437, 9458788, 31562020, 0915023 ####[facility] [address] [place] [address] MCHC (RBC) [Mass/Vol] 33.9 g/dL Normal 31.4-36.0 [facility] Comment on above: Performed By: #### 2 661285, 84172221, 0255878, 40018925, 2554988, 02869249, 3783720 ####[facility] [address] [place] [address] MCV (RBC) [Entitic vol] 87.3 fL Normal 80.0-100.0 [facility] Comment on above: Performed By: #### 2 761339, 99579145, 7077045, 44084497, 3229637, 36971533, 7950007 ####[facility] [address] [place] [address] Platelet mean volume (Bld) [Entitic vol] 9.3 fL Normal 6.4-10.8 [facility] Comment on above: Performed By: #### 2 606415, 70748414, 1124018, 47594097, 6794203, 90808107, 6095281 ####[address] [address] Platelets (Bld) [#/Vol] 234.0 E9/L Normal 150.0-500.0 [facility] Comment on above: Performed By: #### 2 248016, 91250812, 0058251, 93202098, 8189307, 70383680, 7668775 ####[address] [address] RBC (Bld) [#/Vol] 4.7 E12/L Normal 4.3-5.9 [facility] Comment on above: Performed By: #### 2 583063, 73218248, 2164182, 14727713, 9337487, 88791038, 0074568 ####[address] [place] [address] WBC corrected for nucl RBC Auto (Bld) [#/Vol] 16.7 E9/L High 4.0-11.0 [facility] Comment on above: Result Comment: Slid e reviewed by AD. Performed By: #### 2 052526, 60305788, 9109949, 26800134, 9525817, 55990054, 9719297 ####[facility] [address] [place] [address] CHEMISTRYOrdered By: Lab ROP User on 02-24-2023 Glucose [Mass/Vol] 144 mg/dL High 55 - 99 mg/dL [facility] POC Subsection Comment on above: Result Comment: Edilia arleth Meter POC Device SN [id number] Invalid Interpretation Code FT POC Subsection POC User ID [id number] Invalid Interpretation Code FT POC Subsection POC Username CHANO KRISTI Invalid Interpretation Code [facility] POC Subsection Glucose [Mass/Vol] 76 mg/dL Normal 55 - 99 mg/dL [facility] POC Subsection Comment on above: Result Comment: Edilia arleth Meter POC Device SN [id number] Invalid Interpretation Code FT POC Subsection POC User ID [id number] Invalid Interpretation Code FT POC Subsection POC Username KRISTI MADDEN Invalid Interpretation Code [facility] POC Subsection CHEMISTRYOrdered By: SYSTEM SYSTEM on 02-24-2023 Potassium [Moles/Vol] 3.7 mmol/L Normal 3.5 - 5.3 mmol/L FT Remisol Anion gap [Moles/Vol] 8 mmol/L Normal 6 - 16 mEq/L [facility] Remisol Calcium [Mass/Vol] 8.4 mg/dL Low 8.9 - 11. 1 mg/dL FT Remisol Chloride [Moles/Vol] 108 mmol/L Normal 101 - 1 11 mmol/L FT Remisol CO2 [Moles/Vol] 25 mmol/L Normal 21 - 31 mmol/L FT Remisol Creatinine [Mass/Vol] 1.2 mg/dL Normal 0.5 - 1.3 mg/dL FT Remisol GFR/1.73 sq M.predicted among blacks MDRD (S/P/Bld) [Vol rate/Area] 55 mL/min/1.73 m2 Low >=59mL/min/1 .73 m2 [facility] Chem S GFR/1.73 sq M.predicted among non-blacks MDRD (S/P/Bld) [Vol rate/Area] 45 mL/min/1.73 m2 Low >=59mL/min/1 .73 m2 [facility] Chem S Glucose [Mass/Vol] [...] mg/dL Normal 8.9 - 11. 1 mg/dL FT Remisol Chloride [Moles/Vol] 103 mmol/L Normal 101 [...] 38 mL/min/1.73 m2 Low >=59mL/min/1 .73 m2 [facility] Chem S Globulin (S) [...] s High 9.4 - 1 2.5 second(s) [facility] Auto Coag CT Head or Brain w/o Contras ton 02-24-2023 CT Head or Brain w/o Contrast Normal [facility] CT Spine Cervical w/o Contra ston 02-24-2023 CT Spine Cervical w/o Contrast Normal [facility] Capillary Glucose POCon 02-15 Glucose [Mass/Vol] 144 mg/dL High 55-99 [facility] Comment on above: Result Comment: Edilia arleth Meter Performed By: #### 2 [id number] ####[facility] [address] [place] [address] Glucose [Mass/Vol] 76 mg/dL Normal 55-99 [facility] Comment on above: Result Comment: Edilia arleth Meter Performed By: #### 2 11683935 ####[facility] [address] [place] [address] Consent for Treatmenton 02-15 Consent for Treatment [id number] 5#1.00CD:127 Normal [facility] Discharge Instructionson Discharge Instructions [id number]#1.00CD:127 Normal [facility] ED Clinical Summaryon 2022 ED Clinical Summary Normal [facility] ED Note-Physicianon 02-25-20 ED Note-Physician Normal [facility] Comment on above: Result Comment: Elec tronically Signed By: Timoteo PRADO, Jordy\.br\Date and Time Signed: 02/24/23 02:05 EDT ED Patient Education Noteon 02-24-2023 ED Patient Education Note Normal [facility] ED Patient Summaryon 023 ED Patient Summary Normal [facility] ED Traumaon 02-24-2023 ED Trauma [id number] 1#1.00CD:127 Normal [facility] HEMATOLOGYOrdered By: SYSTEM SYSTEM on 02-24-2023 [...] 234.0 E9/L Normal 150.0 - 500.0 E9/L [facility] HemeAutoSS RBC (Bld) [#/Vol] 4.7 E12/L Normal 4.3 - 5.9 E12/L [facility] HemeAutoSS WBC corrected for nucl RBC Auto (Bld) [#/Vol] 16.7 E9/L High 4.0 - 11.0 E9/L [facility] HemeAutoSS Comment on above: Result Comment: Slid e reviewed by Hep Fun Panelon 02-24-2023 Albumin [Mass/Vol] 3.7 g/dL Normal 3.3-5.0 [facility] Comment on above: Performed By: #### 2 328604, 49978074, 1934211, 65197691, 3166854, 34304723, 5369746 ####[facility] [address] [place] [address] Albumin/Globulin (S) [Mass conc ratio] 1.3 Normal 1.1-2.2 [facility] Comment on above: Performed By: #### 2 795405, 10855406, 5829444, 58547763, 4394884, 91767675, 6527349 ####[facility] [address] [place] [address] ALP [Catalytic activity/Vol] 84 Int._Unit/L Normal 21-98 [facility] Comment on above: Performed By: #### 2 154221, 09534803, 9592256, 24026680, 2949104, 37136376, 3536749 ####[facility] [address] [place] [address] ALT No additional P-5'-P [Catalytic activity/Vol] 13 Int._Unit/L Normal 6-46 [facility] Comment on above: Performed By: #### 2 718439, 02398353, 0366556, 78989977, 9116093, 65389036, 1985208 ####[facility] [address] [place] [address] AST [Catalytic activity/Vol] 14 Int._Unit/L Normal 5-43 [facility] Comment on above: Performed By: #### 2 398913, 03079339, 8362515, 69786101, 5859079, 26370090, 9653690 ####[facility] [address] [place] [address] Bilirubin [Mass/Vol] 1.1 mg/dL Normal 0.0-1.1 [facility] Comment on above: Performed By: #### 2 898418, 47066824, 8667566, 18053604, 5086871, 35570970, 4880044 ####[facility] [address] [place] [address] Bilirubin.direct [Mass/Vol] 0.3 mg/dL Normal 0.1-0.4 [facility] Comment on above: Performed By: #### 2 923354, 66851143, 1970668, 69631916, 0967278, 69092731, 0169720 ####[facility] [address] [place] [address] Bilirubin.indirect [Mass or moles/Vol] 0.8 mg/dL Normal 0.1-0.9 [facility] Comment on above: Performed By: #### 2 459688, 00417644, 0110143, 94147164, 4198483, 92488078, 7778398 ####[facility] [address] [place] [address] Globulin (S) [Mass/Vol] 2.8 g/dL Normal 1.4-4.0 [facility] Comment on above: Performed By: #### 2 237904, 38107730, 8410575, 19305978, 6713345, 63293757, 6539119 ####[facility] [address] [place] [address] Protein [Mass/Vol] 6.5 g/dL Normal 6.0-7.8 [facility] Comment on above: Performed By: #### 2 291953, 33446126, 1232963, 04779765, 3854538, 19369705, 1382102 ####[facility] [address] [place] [address] Inpatient Clinical Summaryon 02-24-2023 Inpatient Clinical Summary Normal [facility] Inpatient Patient Summaryon 02-24-2023 Inpatient Patient Summary Normal [facility] Inpatient Patient Summary Normal [facility] Interdisciplinary Note - Aaron e Manageron 02-24-2023 Interdisciplinary Note - Photogrammetric Engineer [facility] Comment on above: Result Comment: Elec tronically Signed By: Freda Dodson\.br\Date and Time Signed: 02/24/23 11:14 EDT Interdisciplinary Note - PTo n 02-24-2023 Interdisciplinary Note - PT Normal [facility] Magnesiumon 02-24-2023 Magnesium [Mass/Vol] 2.1 mg/dL Normal 1.3-2.4 [facility] Comment on above: Performed By: #### 1 4221058, 60942061, 6780168, 4098268, 2246343 ####[facility] [address] [place] [address] Monitor Recordon 02-24-2023 Monitor Record [id number] 4#1.00CD:127 [facility] Monitor Record [id number] 0#1.00CD:127 [facility] Monitor Record [id number] 6#1.00CD:127 [facility] PT & PTTon 02-24-2023 aPTT Coag (PPP) [Time] 23.9 second(s) Low 25.1-36.5 [facility] Comment on above: Result Comment: Para meter 15 days - 4 weeks 1 - 5 months 6 - 11 months 1 - 5 years 6 - 10 years 11 - 17 years PTT Mean: 35.4 (27.6-45.6) Mean: 33.5 (24.8-40.7) Mean: 32.4 (25.1-40.7) Mean: 31.6 (24.0-39.2) Mean: 31.6 (26.9-38.7) Mean: 31.0 (24.6-38.4) Pediatric Reference ranges were obtained from a study by dahlia Hung prepared from 1437 samples obtained at 7 different centers using the same coagulation reagent and instrumentation as [facility]. Currently there are no coagulation studies available worldwide for children to 14 days, and no normal ranges. Heparin therapeutic range (represented by Anti-Factor Xa activity of 0.2 - 0.4 U/mL) corresponds to PTT of 56.6 - 109.0 sec. Performed By: #### 2 409889, 97770017, 9390643, 21174503, 9166193, 81150737, 4521835 ####[facility] [address] [place] [address] INR Coag (PPP) [Relative time] 1.2 {INR} Invalid Interpretation Code [facility] Comment on above: Result Comment: INR results are specifically intended to assess patients stabilized on long-term Anticoagulation therapy suggested INR?s ?Less Intensive Anticoagulation? 2.0 ? 3.0Conventional Range 3.0 ? 4.5 Performed By: #### 2 367767, 66375342, 2543698, 58817163, 6806262, 72756676, 0557623 ####[facility] [address] [place] [address] PT Coag (PPP) [Time] 13.7 second(s) High 9.4-12.5 [facility] Comment on above: Result Comment: 15 [...] were obtained from a study by Ganesh Yantis, et al. prepared from 1437 samples obtained at 7 different centers using the same coagulation reagent and instrumentation as [facility]. Currently there are no coagulation studies available worldwide for children to 14 days, and no normal ranges. Performed By: #### 2 197431, 47811345, 4163032, 61945274, 9766870, 40857731, 9633004 ####[facility] [address] [place] [address] Patient Education - Texton 0 02-24-2023 Patient Education - Text Normal [facility] Potassiumon 02-24-2023 Potassium [Moles/Vol] 3.7 mmol/L Normal 3.5-5.3 [facility] Comment on above: Order Comment: Pleas e call me with result. Thanks Performed By: #### 2 620512 ####[facility] [address] [place] [address] Pre-Arrival Noteon Pre-Arrival Note Normal [facility] Progress Note-Physicianon Progress Note-Physician Normal [facility] Comment on above: Result Comment: Elec tronically Signed By: PERLA PRADO, Cuauhtemocfo\.br\Date and Time Signed: 02/24/23 09:47 EDT RAD - Preliminary Cat Scan R eporton 02-24-2023 RAD - Preliminary Cat Scan Report [id number] 6#1.00CD:127 Normal [facility] RAD - Preliminary Cat Scan Report [id number] 5#1.00CD:127 Normal [facility] TSH With T4fr Reflexon 02-24 TSH Qn 0.97 m[IU]/L Normal 0.34-5.60 [facility] Comment on above: Performed By: #### 1 1230914, 30954712, 1593547, 2030990, 7288834 ####[facility] [address] [place] [address] Troponinon 02-24-2023 Troponin I.cardiac [Mass/Vol] 7.40 pg/mL Low 10.10-27.10 [facility] Comment on above: Result Comment: The 95% CI (Confidence Interval) PPV (Positive Predictive Value) for myocardial infarction in females is 38 pg/mL, in males 51 pg/mL. The results should be used in conjunction with clinical conditions of myocardial infarction.(Access High Sensitivity Troponin I Instructions For Use, [employer], June 2018) Performed By: #### 1 5725208, 17765370, 2126759, 0579576, 2367476 ####[facility] [address] [place] 37[address]757 Troponin 0 Hr.on 02-24-2023 Troponin I.cardiac [Mass/Vol] 8.00 pg/mL Low 10.10-27.10 [facility] Comment on above: Result Comment: The 95% CI (Confidence Interval) PPV (Positive Predictive Value) for myocardial infarction in females is 38 pg/mL, in males 51 pg/mL. The results should be used in conjunction with clinical conditions of myocardial infarction.(Brammo High Sensitivity Troponin I Instructions For Use, [employer], June 2018) Performed By: #### 2 997003, 76972244, 4790403, 87244961, 7548670, 78151903, 8450345 ####[facility] [address] [place] 3737757 Troponin 3 Hr.on 02-24-2023 Troponin I.cardiac [Mass/Vol] 6.70 pg/mL Low 10.10-27.10 [facility] Comment on above: Result Comment: The 95% CI (Confidence Interval) PPV (Positive Predictive Value) for myocardial infarction in females is 38 pg/mL, in males 51 pg/mL. The results should be used in conjunction with clinical conditions of myocardial infarction.(Access High Sensitivity Troponin I Instructions For Use, [employer], June 2018) Performed By: #### 1 7742819 ####[facility] [address] [place] 3737757 UA With Cult Reflexon 2022 Bacteria LM Ql (Urine sed) TRACE Normal Trace [facility] Comment on above: Performed By: #### 1 2232817 ####[facility] [address] [place] [address] Bilirubin Ql (U) Negative Normal Negative [facility] Comment on above: Performed By: #### 1 9064309 ####[facility] [address] [place] [address] Clarity (U) SL CLOUDY Abnormal Clear [facility] Comment on above: Performed By: #### 1 8637314 ####[address] [address] Color (U) YELLOW Normal Yellow [facility] Comment on above: Performed By: #### 1 0975832 ####[facility] [address] [place] [address] Crystals LM Ql (Urine sed) Present Normal [facility] Comment on above: Performed By: #### 1 7391388 ####[address] [address] Epithelial cells.squamous LM.HPF (Urine sed) [#/Area] /[HPF] Normal 0-2 [facility] Comment on above: Performed By: #### 1 5139381 ####[facility] [address] [place] [address] Glucose Test strip (U) [Mass/Vol] Negative Normal Negative [facility] Comment on above: Performed By: #### 1 5676218 ####[address] [address] Hemoglobin Ql (U) 3+ Abnormal Negative [facility] Comment on above: Performed By: #### 1 3616214 ####[address] [address] Ketones (U) [Mass/Vol] TRACE Abnormal Negative [facility] Comment on above: Performed By: #### 1 5497689 ####[address] [address] [place].plasma/[place] .RBC (Bld) [Mass ratio] 21-30 Abnormal 0-3 [facility] Comment on above: Performed By: #### 1 6883037 ####[address] [place] [address] Mucus Ql (Urine sed) TRACE Normal [facility] Comment on above: Performed By: #### 1 3539160 ####[facility] [address] [place] [address] Nitrite Ql (U) Negative Normal Negative [facility] Comment on above: Performed By: #### 1 8816191 ####[address] [address] pH (U) 6.0 [pH] Invalid Interpretation Code 5.0-9.0 [facility] Comment on above: Performed By: #### 1 8050386 ####[address] [address] Protein (U) [Mass/Vol] 1+ Abnormal Negative [facility] Comment on above: Performed By: #### 1 0551255 ####[address] [address] Specific gravity (U) [Rel density] 1.020 Invalid Interpretation Code 1.005-1.030 [facility] Comment on above: Performed By: #### 1 7554609 ####[address] [address] Type of Urine collection method Clean Catch Normal [facility] Comment on above: Performed By: #### 1 2550397 ####[address] [address] Urobilinogen Qn (U) 0.2 {John'U}/dL Normal 0.0-1.0 [facility] Comment on above: Performed By: #### 1 0417143 ####[facility] [address] [place] [address] WBC Auto Ql (U) TRACE Abnormal Negative [facility] Comment on above: Performed By: #### 1 7077678 ####[facility] [address] [place] [address] WBC casts LM.LPF (Urine sed) [#/Area] 4-10 Normal [facility] Comment on above: Performed By: #### 1 7728581 ####[facility] [address] [place] [address] WBC LM.HPF (Urine sed) [#/Area] 0-5 Normal 0-5 [facility] Comment on above: Performed By: #### 1 7948919 ####[facility] [address] [place] [address] URINALYSISOrdered By: Dave Jenkins on 02-24-2023 Bacteria [...] Interpretation Code Negative [facility] UA Auto SS [place].plasma/[place] .RBC (Bld) [Mass ratio] 21-30 /HPF Invalid [...] (02/24/23 2:06 AM) Invalid Interpretation Code Negative [facility] UA Auto SS Specific gravity (U) [Rel density] 1.020 *NA* (02/24/23 2:06 AM) Invalid Interpretation Code 1.005 - 1.030 [facility] UA Auto SS UA Spec Desc Clean Catch (02/24/23 2:06 AM) Normal [facility] UA Auto SS Urobilinogen Qn (U) 0.2660690 {John'U}/dL Normal 0.0 - 1.0 EU/dL [facility] UA Auto SS WBC Auto Ql (U) Trace *ABN* (02/24/23 2:06 AM) Invalid Interpretation Code Negative [facility] UA Auto SS WBC casts LM.LPF (Urine sed) [#/Area] 4-10 (02/24/23 2:06 AM) Normal [facility] UA Auto SS WBC LM.HPF (Urine sed) [#/Area] 0-5 /HPF Normal 0-5/HPF [facility] UA Auto SS XR Chest Single Viewon 02-24 XR Chest Single View Normal [facility] XR Spine Lumbosacral 2 or 3 Viewson 02-24-2023 XR Spine Lumbosacral 2 or 3 Views Normal [facility] eGFRon 02-24-2023 GFR/1.73 sq M.predicted among blacks MDRD (S/P/Bld) [Vol rate/Area] 55 mL/min/1.73 m2 Low >=59 [facility] Comment on above: Order Comment: Order added by Discern Expert. Result Comment: eGFR is race adjusted. AA=. Performed By: #### 1 4287511, 53638090, 3828935, 3428828, 9135590 ####[facility] [address] [place] [address] GFR/1.73 sq M.predicted among non-blacks MDRD (S/P/Bld) [Vol rate/Area] 45 mL/min/1.73 m2 Low >=59 [facility] Comment on above: Order Comment: Order added by Discern Expert. Result Comment: [employer] Official kuldip kidney disease could be indicated at eGFR's of less than 60 mL/min/1.73m2. Kidney failure is indicated at less than 15 mL/min/1.73m2. Performed By: #### 1 7436704, 65948019, 7968421, 4846322, 6668861 ####[facility] [address] [place] [address] GFR/1.73 sq M.predicted among blacks MDRD (S/P/Bld) [Vol rate/Area] 46 mL/min/1.73 m2 Low >=59 [facility] Comment on above: Order Comment: Order added by Discern Expert. Result Comment: eGFR is race adjusted. AA=. Performed By: #### 2 [id number], [id number], [id number], [id number], [id number], [id number], [id number] ####[facility] [address] [place] [address] GFR/1.73 sq M.predicted among non-blacks MDRD (S/P/Bld) [Vol rate/Area] 38 mL/min/1.73 m2 Low >=59 [facility] Comment on above: Order Comment: Order added by Discern Expert. Result Comment: [employer] Official kuldip kidney disease could be indicated at eGFR's of less than 60 mL/min/1.73m2. Kidney failure is indicated at less than 15 mL/min/1.73m2. Performed By: #### 2 [id number], [id number], [id number], [id number], [id number], [id number], [id number] ####[facility] [address] [place] [address] [facility]-17 SARS-CoV-2 (COVID-19) RNA OSVALDO+probe Ql (Unsp spec) Not detected Normal NOT DETECTED [facility] Comment on above: Result Comment: This test is not yet approved or cleared by the [place] FDA. When there are no FDA-approved or cleared tests available, and other criteria are met, FDA can make tests available under an emergency access mechanism called an Emergency Use Authorization (EUA). The EUA for this test is supported by the Director Of Digital Platforms of Health and Human Service's (HHS's) declaration [...] SARS-CoV-2. Performed By: #### C VDTB #### [facility] [address] [place] [address] Dr. Win Ardon SYMPTOMATIC COVID-19 ANTIGEN on 02-14-2023 EUA Statement SEE BELOW Normal [facility] Comment on above: Result Comment: This [...] sooner. Performed By: #### C VDAGS #### [facility] [address] [place], [place] [id number] Dr. Win Ardon SARS-CoV-2 (COVID-19) RNA OSVALDO+probe Ql (Unsp spec) Negative Normal NEGATIVE [facility] Comment on above: Performed By: #### C VDAGS #### [facility] [address] [place] [id number] [address] Win Ardon XR KNEE RT 4V [...] MIKAEL GUZMAN Date: 2022-10-05 19:58 Normal [facility] Creatinine (Bld) [Mass/Vol]O rdered By: Ese Tan on 02-18-2022 Creatinine [Mass/Vol] 0.8 mg/dL 0.6-1.3 [facility] Comment on above: ER/ESD physician is notified/shown all ISTAT results.Critical values may be confirmed by laboratory testing ifdeemed necessary by ER attending doctor. ISTAT XRay CREon 02-18-2022 Creatinine [Mass/Vol] 0.8 mg/dL Normal 0.6-1.3 [facility] Comment on above: Result Comment: ER/E SD physician is notified/shown all ISTAT results. Critical values may be confirmed by laboratory testing if deemed necessary by ER attending doctor. Performed By: #### B CHILD CARE COUNSELOR, PTT, CKMB, LIPASE, CK, TROP, CBC, PT, CMP #### [facility] [address] ISTAT GFR ( > 60 Normal [facility] Comment on above: Result Comment: GFR estimated reference range: According to KDOQI guidelines, <60 ml/min/1.73m2 is sufficient to diagnose a patient with chronic kidney disease. PERFORMED BY: [place] [address] PATHOLOGIST [employer] LEAD TEACHER WALDO WANG M.D. Performed By: #### B CHILD CARE COUNSELOR, PTT, CKMB, LIPASE, CK, TROP, CBC, PT, CMP #### [facility] [address] ISTAT GFR (Non- Am > 60 Normal [facility] Comment on above: Performed By: #### B CHILD CARE COUNSELOR, PTT, CKMB, LIPASE, CK, TROP, CBC, PT, CMP #### [facility] [address] [place] [id number] [facility] MR abdomen wo/w conon 2021 MR abdomen wo/w con [facility] Main [place] [address] [place] [address] MRI Report Signed Patient: Yeyo Avila MR#: [id number] : 1955 Acct:[id number] Age/Sex: 66 / F ADM Date: 02/18/22 Loc: MR Room: Type: [facility] Attending Dr: Ese Tan MD Ordering Provider: [...] IDENTIFIED. Impression dictated by: Javi Warren Jr., D.OOtilia02/18/2022 4:02 PM Dictation Location: [place] [address] Transcribed By: [facility] 02/18/22 1602 Dictated By: Javi Warren Jr, DO 02/18/22 1556 Signed By: 02/18/22 1602 Normal [facility] No Panel InformationOrdered By: Ese Tan on 02-18-2022 POC Estimated GFR > 60 [facility] Comment on above: GFR estimated refere nce range: According to KDOQI guidelines, <60 ml/min/1.73m2 is sufficient to diagnose a patient with chronic kidney disease. POC Estimated GFR Non- Amer > 60 [facility] Cardiovascular Lab Reporton 03-22-2021 Cardiovascular Lab Report [place] Patient Name: Sheila [facility] Saulo Cooper MR #: [id number] Department of Physician: Radha Carter M.D. Division of Service Date: 03/21/2021 Cardiology Birthdate: 1955 Adult Cardiovascular Room #: [facility] [address] [place], [place] [address] Cardiovascular Laboratory Report FINAL IMPRESSIONS: 1. 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 2. Patent stent in the second diagonal branch of the left anterior descending coronary artery with [id number] in-stent restenosis. 3. Otherwise, nonobstructive coronary arteries [...] bilateral selective coronary angiography, placement of a 6-Panamanian MynxGrip closure device. METHODS: After risks, benefits, and alternatives were explained, written informed consent was obtained. The patient was prepped and draped in the usual sterile fashion over the right groin. Using 1% lidocaine solution, local infiltration anesthesia was achieved. Using a modified Seldinger technique, a micropuncture kit, an ultrasound guidance access to the right common femoral vein and artery was obtained. A 6-Panamanian x 11 cm sheath were placed in each. Limited femoral angiography was performed via the micropuncture kit prior to upsizing through the 6-Panamanian sheath in the artery. A Cazares catheter [...] the procedure. All catheters were removed. A 6-Panamanian MynxGrip closure device was deployed per protocol [...] Mariano Pardo M.D. Date Trans: 03/22/2021 05:11 Sean/yoel [id number] cc: Alexia Cline, MSN, PRESIDENT [employer]-C Department Of Surgery Ms [address] [facility] [address] Robin Ponce M.D. [address] [place] [address] Normal [facility] angio abdomen pelvison CT angio abdomen pelvis [facility] Main [place] [address] [place] [address] [address] Scan Report Signed Patient: Yeyo Avila MR#: [id number] : 1955 Acct:[id number] Age/Sex: 65 / F ADM Date: 03/19/21 Loc: ER Room: Type: [facility] ER Attending Dr: Ordering Provider: Ismael Santillan DO Date of Service: 03/19/21 CT/CT angio chest: r/o dissection ([id number]) CT/CT angio abdomen pelvis: R/O DISSECTION Copies [...] Martinez Jr., M.D.03/20/2021 8:52 AM Dictation Location: [place] [address] Transcribed By: [facility] 03/20/21851 Dictated By: Gavin [place] Jr, MD 03/20/2141 Signed By: 03/20/2152 Normal [facility] Dipstick and Microscopicon 0 03-20-2021 Appearance (U) Clear Normal Clear [facility] Comment on above: Order Comment: Name Collection Type:: Clean-Voided Midstream Performed By: #### A DDONUAPLUS #### [facility] [address] [place] [address] [place] Bacteria,Urine None Seen Normal None Seen [facility] Comment on above: Order Comment: Name Collection Type:: Clean-Voided Midstream Performed By: #### A DDONUAPLUS #### [facility] [address] [place] [id number] [place] Bilirubin,Urine Negative Normal Negative [facility] Comment on above: Order Comment: Name Collection Type:: Clean-Voided Midstream Performed By: #### A DDONUAPLUS #### [facility] [address] [place] [address] [place] Color (U) Yellow Normal Yellow [facility] Comment on above: Order Comment: Name Collection Type:: Clean-Voided Midstream Performed By: #### A DDONUAPLUS #### [facility] [address] [place] [id number] [place] Glucose Ql (U) 500 mg/dL High Normal [facility] Comment on above: Order Comment: Name Collection Type:: Clean-Voided Midstream Performed By: #### A DDONUAPLUS #### [facility] [address] [place] [address] [place] Hyaline Casts,Urine 0-8 Normal 0-8 [facility] Comment on above: Order Comment: Name Collection Type:: Clean-Voided Midstream Result Comment: PERF ORMED BY: [place] [address] PATHOLOGIST [employer]AD TE[employer]ER WALDO WANG M.D. Performed By: #### A DDONUAPLUS #### [facility] [address] [place] [address] Ketones Ql (U) Trace High Negative [facility] Comment on above: Order Comment: Name Collection Type:: Clean-Voided Midstream Performed By: #### A DDONUAPLUS #### [address] Leukocyte esterase Test strip Ql (U) Negative Normal Negative [facility] Comment on above: Order Comment: Name Collection Type:: Clean-Voided Midstream Performed By: #### A DDONUAPLUS #### [facility] [address] [place] [address] [place] Nitrite,Urine Negative Normal Negative [facility] Comment on above: Order Comment: Name Collection Type:: Clean-Voided Midstream Performed By: #### A DDONUAPLUS #### [facility] [address] [place] [address] [place] Occult Blood,Urine Negative Normal Negative [facility] Comment on above: Order Comment: Name Collection Type:: Clean-Voided Midstream Performed By: #### A DDONUAPLUS #### [facility] [address] [place] [address] [place] pH (U) 6.0 [pH] Normal 5.0-9.0 [facility] Comment on above: Order Comment: Name Collection Type:: Clean-Voided Midstream Performed By: #### A DDONUAPLUS #### [place] [address] [place] Protein,Urine Trace High Negative [facility] Comment on above: Order Comment: Name Collection Type:: Clean-Voided Midstream Performed By: #### A DDONUAPLUS #### [facility] [address] [place] [address] [place] RBC,Urine 1-2 Normal 0-4 [facility] Comment on above: Order Comment: Name Collection Type:: Clean-Voided Midstream Performed By: #### A DDONUAPLUS #### [facility] [address] [place] [address] Renal Epithelial Cells,Urine None Seen Normal 0-1 [facility] Comment on above: Order Comment: Name Collection Type:: Clean-Voided Midstream Performed By: #### A DDONUAPLUS #### [address] Specificy Stephen,Urine > 1.050 High 1.001-1.030 [facility] Comment on above: Order Comment: Name Collection Type:: Clean-Voided Midstream Performed By: #### A DDONUAPLUS #### [facility] [address] [place] [address] [place] Squamous Epithelial Cell,Urine 3-4 High 0-2 [facility] Comment on above: Order Comment: Name Collection Type:: Clean-Voided Midstream Performed By: #### A DDONUAPLUS #### [facility] [address] [place] [address] [place] Urobilinogen,Urine Normal Normal Normal [facility] Comment on above: Order Comment: Name Collection Type:: Clean-Voided Midstream Performed By: #### A DDONUAPLUS #### [facility] [address] [place] [address] [place] WBC,Urine 1-2 Normal 0-4 [facility] Comment on above: Order Comment: Name Collection Type:: Clean-Voided Midstream Performed By: #### A DDONUAPLUS #### [facility] [address] [place] [address] [place] ECG 12 lead ECGon 03-20-2021 ECG 12 lead ECG [facility] Main [place] [address] [place] [address] Electrocardiograph Report Signed Patient: Yeyo Avila MR#: [id number] : 1955 Acct:[id number] Age/Sex: 65 / F ADM Date: 03/19/21 Loc: ER Room: Type: [facility] ER Attending Dr: Ordering Provider: Ismael Santillan [...] MD 03/19/212224 Signed By: 03/21/21 0905 Normal [facility] XR chest 2V*on 03-20-2021 XR chest 2V* [facility] Main [address] [address] XRay Report Signed Patient: Yeyo Avila MR#: [id number] : 1955 Acct:[id number] Age/Sex: 65 / F ADM Date: 03/19/21 Loc: ER Room: Type: [facility] ER Attending Dr: Ordering Provider: Ismael Santillan [...] [place] Jr., M.D.03/20/2021 8:53 AM Dictation Location: [place] [address] Transcribed By: [facility] 03/20/2153 Dictated By: Gavin [place] Jr, MD 03/20/2152 Signed By: 03/20/21852 Normal [facility] B-Type Natriuretic Peptideon 03-19-2021 Natriuretic peptide B (Bld) [Mass/Vol] 30.0 pg/mL Normal 5-100 [facility] Comment on above: Result Comment: PERF ORMED BY: [place] [address] PATHOLOGIST [employer] LEAD TE[employer]ER WALDO WANG M.D. Performed By: #### B CHILD CARE COUNSELOR, PTT, CKMB, LIPASE, CK, TROP, CBC, PT, CMP #### [address] Complete Blood Count Auto Di ffon 03-19-2021 Basophils (Bld) [#/Vol] 0.2 10*3/uL Normal 0.0-0.2 [facility] Comment on above: Result Comment: PERF ORMED BY: [place] [address] PATHOLOGIST [employer] LEAD TEACHER WALDO WANG M.D. Performed By: #### B CHILD CARE COUNSELOR, PTT, CKMB, LIPASE, CK, TROP, CBC, PT, CMP #### [address] Basophils/100 WBC (Bld) 0.9 % Normal . [facility] Comment on above: Performed By: #### B CHILD CARE COUNSELOR, PTT, CKMB, LIPASE, CK, TROP, CBC, PT, CMP #### [address] Eosinophils (Bld) [#/Vol] 0.2 10*3/uL Normal 0.0-0.45 [facility] Comment on above: Performed By: #### B CHILD CARE COUNSELOR, PTT, CKMB, LIPASE, CK, TROP, CBC, PT, CMP #### [address] Eosinophils/100 WBC (Bld) 1.1 % Normal . [facility] Comment on above: Performed By: #### B CHILD CARE COUNSELOR, PTT, CKMB, LIPASE, CK, TROP, CBC, PT, CMP #### [address] Erythrocyte distribution width (RBC) [Ratio] 13.7 % Normal 11.9-15.3 [facility] Comment on above: Performed By: #### B CHILD CARE COUNSELOR, PTT, CKMB, LIPASE, CK, TROP, CBC, PT, CMP #### [address] Hematocrit (Bld) [Volume fraction] 43.7 % Normal 34.0-46.4 [facility] Comment on above: Performed By: #### B CHILD CARE COUNSELOR, PTT, CKMB, LIPASE, CK, TROP, CBC, PT, CMP #### [address] Hemoglobin (Bld) [Mass/Vol] 14.8 g/dL Normal 11.8-15.4 [facility] Comment on above: Performed By: #### B CHILD CARE COUNSELOR, PTT, CKMB, LIPASE, CK, TROP, CBC, PT, CMP #### [address] Lymphocytes (Bld) [#/Vol] 4.2 10*3/uL Normal 1.00-4.8 [facility] Comment on above: Performed By: #### B CHILD CARE COUNSELOR, PTT, CKMB, LIPASE, CK, TROP, CBC, PT, CMP #### [address] Lymphocytes/100 WBC (Bld) 23.0 % Normal . [facility] Comment on above: Performed By: #### B CHILD CARE COUNSELOR, PTT, CKMB, LIPASE, CK, TROP, CBC, PT, CMP #### [address] MCH (RBC) [Entitic mass] 29.8 pg Normal 24.7-34.3 [facility] Comment on above: Performed By: #### B CHILD CARE COUNSELOR, PTT, CKMB, LIPASE, CK, TROP, CBC, PT, CMP #### [address] MCV (RBC) [Entitic vol] 87.7 fL Normal 80-100 [facility] Comment on above: Performed By: #### B CHILD CARE COUNSELOR, PTT, CKMB, LIPASE, CK, TROP, CBC, PT, CMP #### [address] Mean Corpuscular HGB Conc 33.9 g/dL Normal 32.0-35.0 [facility] Comment on above: Performed By: #### B CHILD CARE COUNSELOR, PTT, CKMB, LIPASE, CK, TROP, CBC, PT, CMP #### [address] Monocytes (Bld) [#/Vol] 1.1 10*3/uL High 0.0-0.8 [facility] Comment on above: Performed By: #### B CHILD CARE COUNSELOR, PTT, CKMB, LIPASE, CK, TROP, CBC, PT, CMP #### [address] Monocytes/100 WBC (Bld) 6.1 % Normal . [facility] Comment on above: Performed By: #### B CHILD CARE COUNSELOR, PTT, CKMB, LIPASE, CK, TROP, CBC, PT, CMP #### [address] Neutrophils (Bld) [#/Vol] 12.4 10*3/uL High 1.8-7.7 [facility] Comment on above: Performed By: #### B CHILD CARE COUNSELOR, PTT, CKMB, LIPASE, CK, TROP, CBC, PT, CMP #### [address] Neutrophils/100 WBC (Bld) 68.9 % Normal . [facility] Comment on above: Performed By: #### B CHILD CARE COUNSELOR, PTT, CKMB, LIPASE, CK, TROP, CBC, PT, CMP #### [address] Nucleated RBC/100 WBC (Bld) [Ratio] 0.2 % Normal 0-0.5 [facility] Comment on above: Performed By: #### B CHILD CARE COUNSELOR, PTT, CKMB, LIPASE, CK, TROP, CBC, PT, CMP #### [address] Platelet mean volume (Bld) [Entitic vol] 9.2 fL Normal 6.3-10.7 [facility] Comment on above: Performed By: #### B CHILD CARE COUNSELOR, PTT, CKMB, LIPASE, CK, TROP, CBC, PT, CMP #### [address] Platelets (Bld) [#/Vol] 340 10*3/uL Normal 150-450 [facility] Comment on above: Performed By: #### B CHILD CARE COUNSELOR, PTT, CKMB, LIPASE, CK, TROP, CBC, PT, CMP #### [address] RBC (Bld) [#/Vol] 4.98 10*6/uL Normal 3.60-5.00 [facility] Comment on above: Performed By: #### B CHILD CARE COUNSELOR, PTT, CKMB, LIPASE, CK, TROP, CBC, PT, CMP #### [address] WBC (Bld) [#/Vol] 18.0 10*3/uL High 4.5-11.0 [facility] Comment on above: Performed By: #### B CHILD CARE COUNSELOR, PTT, CKMB, LIPASE, CK, TROP, CBC, PT, CMP #### [address] Comprehensive Metabolic Pane talia 03-19-2021 Albumin [Mass/Vol] 4.7 g/dL Normal 3.2-5.5 [facility] Comment on above: Performed By: #### B CHILD CARE COUNSELOR, PTT, CKMB, LIPASE, CK, TROP, CBC, PT, CMP #### [address] Albumin/Globulin [Mass ratio] 1.4 {ratio} Normal [facility] Comment on above: Performed By: #### B CHILD CARE COUNSELOR, PTT, CKMB, LIPASE, CK, TROP, CBC, PT, CMP #### [address] ALP [Catalytic activity/Vol] 83 U/L Normal 32-92 [facility] Comment on above: Performed By: #### B CHILD CARE COUNSELOR, PTT, CKMB, LIPASE, CK, TROP, CBC, PT, CMP #### [address] ALT [Catalytic activity/Vol] 15 U/L Normal 10-60 [facility] Comment on above: Performed By: #### B CHILD CARE COUNSELOR, PTT, CKMB, LIPASE, CK, TROP, CBC, PT, CMP #### [address] AST [Catalytic activity/Vol] 15 U/L Normal 10-42 [facility] Comment on above: Performed By: #### B CHILD CARE COUNSELOR, PTT, CKMB, LIPASE, CK, TROP, CBC, PT, CMP #### [address] Bilirubin [Mass/Vol] 1.6 mg/dL High 0.3-1.2 [facility] Comment on above: Result Comment: Samp les from patients who have taken Naproxen have shown spurious elevation in Total Bilirubin levels. A metabolite of Naproxen, O-desmethylnaproxen, has been shown to interfere with the Jendrassik-Grof method for measuring Total Bilirubin. Performed By: #### B CHILD CARE COUNSELOR, PTT, CKMB, LIPASE, CK, TROP, CBC, PT, CMP #### [address] Calcium [Mass/Vol] 10.1 mg/dL Normal 8.2-10.2 [facility] Comment on above: Performed By: #### B CHILD CARE COUNSELOR, PTT, CKMB, LIPASE, CK, TROP, CBC, PT, CMP #### [address] [place] [address] [place] Chloride [Moles/Vol] 99 mmol/L Normal 95-114 [facility] Comment on above: Performed By: #### B CHILD CARE COUNSELOR, PTT, CKMB, LIPASE, CK, TROP, CBC, PT, CMP #### [facility] [address] CO2 [Moles/Vol] 23.1 mmol/L Normal 22.0-30.0 [facility] Comment on above: Performed By: #### B CHILD CARE COUNSELOR, PTT, CKMB, LIPASE, CK, TROP, CBC, PT, CMP #### [address] Creatinine [Mass/Vol] 1.07 mg/dL High 0.44-1.03 [facility] Comment on above: Performed By: #### B CHILD CARE COUNSELOR, PTT, CKMB, LIPASE, CK, TROP, CBC, PT, CMP #### [address] Creatinine Clr Calc Pharmacy 64.26 [facility] Comment on above: Performed By: #### B CHILD CARE COUNSELOR, PTT, CKMB, LIPASE, CK, TROP, CBC, PT, CMP #### [address] Estimated GFR ( [place] > 60 [facility] Comment on above: Result Comment: GFR estimated reference range: According to KDOQI guidelines, <60 ml/min/1.73m2 is sufficient to diagnose a patient with chronic kidney disease. Performed By: #### B CHILD CARE COUNSELOR, PTT, CKMB, LIPASE, CK, TROP, CBC, PT, CMP #### [address] Estimated GFR (Non- Am 52 [facility] Comment on above: Performed By: #### B CHILD CARE COUNSELOR, PTT, CKMB, LIPASE, CK, TROP, CBC, PT, CMP #### [address] Globulin (S) [Mass/Vol] 3.3 g/dL [facility] Comment on above: Performed By: #### B CHILD CARE COUNSELOR, PTT, CKMB, LIPASE, CK, TROP, CBC, PT, CMP #### [facility] [address] Glucose [Mass/Vol] 264 mg/dL High 70-100 [facility] Comment on above: Result Comment: [facility] Glucose Reference Range is dependent on time and content of last meal. Glucose of more than 200 mg/dL in a nonstressed, ambulatory subject supports the diagnosis of Diabetes Mellitus. ADA recommended reference range Performed By: #### B CHILD CARE COUNSELOR, PTT, CKMB, LIPASE, CK, TROP, CBC, PT, CMP #### [address] Potassium [Moles/Vol] 3.8 mmol/L Normal 3.5-5.1 [facility] Comment on above: Performed By: #### B CHILD CARE COUNSELOR, PTT, CKMB, LIPASE, CK, TROP, CBC, PT, CMP #### [address] Protein [Mass/Vol] 8.0 g/dL High 6.1-7.9 [facility] Comment on above: Performed By: #### B CHILD CARE COUNSELOR, PTT, CKMB, LIPASE, CK, TROP, CBC, PT, CMP #### [address] Sodium [Moles/Vol] 137 mmol/L Normal 136-146 [facility] Comment on above: Performed By: #### B CHILD CARE COUNSELOR, PTT, CKMB, LIPASE, CK, TROP, CBC, PT, CMP #### [address] Urea nitrogen [Mass/Vol] 29 mg/dL High 9-23 [facility] Comment on above: Performed By: #### B CHILD CARE COUNSELOR, PTT, CKMB, LIPASE, CK, TROP, CBC, PT, CMP #### [address] Creatine Kinaseon 03-19-2021 CK [Catalytic activity/Vol] 42 U/L Normal 22-269 [facility] Comment on above: Performed By: #### B CHILD CARE COUNSELOR, PTT, CKMB, LIPASE, CK, TROP, CBC, PT, CMP #### [facility] [address] Creatinine Kinase MBon 03-19 CK.MB [Mass/Vol] 1.3 ng/mL Normal 0.6-6.3 [facility] Comment on above: Performed By: #### B CHILD CARE COUNSELOR, PTT, CKMB, LIPASE, CK, TROP, CBC, PT, CMP #### [facility] [address] CKMB Relative Index 3.0 % High 0.00-2.50 [facility] Comment on above: Performed By: #### B CHILD CARE COUNSELOR, PTT, CKMB, LIPASE, CK, TROP, CBC, PT, CMP #### [facility] [address] ECG 12 lead ECGon 03-19-2021 ECG 12 lead ECG [facility] [place] [address] Electrocardiograph Report Signed Patient: Yeyo Avila MR#: [id number] : 1955 Acct:[id number] Age/Sex: 65 / F ADM Date: 03/19/21 Loc: ER Room: Type: [facility] ER Attending Dr: Ordering Provider: Ismael Santillan [...] By: Timoteo Cooper MD 03/19/212112 Signed By: 03/21/21904 Normal [facility] Lipaseon 03-19-2021 Lipase [Catalytic activity/Vol] 21.0 U/L Low 22-51 [facility] Comment on above: Result Comment: PERF ORMED BY: [place] [address] PATHOLOGIST PRESCHOOL LEAD TEACHER WALDO WANG M.D. Performed By: #### B CHILD CARE COUNSELOR, PTT, CKMB, LIPASE, CK, TROP, CBC, PT, CMP #### [address] Partial Thromboplastin Timeo n 03-19-2021 aPTT Coag (Bld) [Time] 26.1 s Normal 25.1-36.5 [facility] Comment on above: Result Comment: PERF ORMED BY: [place] [address] PATHOLOGIST PRESCHOOL LEAD TEACHER WALDO WANG M.D. Performed By: #### B CHILD CARE COUNSELOR, PTT, CKMB, LIPASE, CK, TROP, CBC, PT, CMP #### [place] [address] [place] Prothrombin Time INRon 03-19 INR Coag (PPP) [Relative time] 1.2 {INR} Normal [facility] Comment on above: Result Comment: INR [...] 3 - 4.5 Performed By: #### B CHILD CARE COUNSELOR, PTT, CKMB, LIPASE, CK, TROP, CBC, PT, CMP #### [address] PT Coag (PPP) [Time] 13.6 s High 9.0-12.9 [facility] Comment on above: Performed By: #### B CHILD CARE COUNSELOR, PTT, CKMB, LIPASE, CK, TROP, CBC, PT, CMP #### [address] [address] [facility] Troponin I(TnI)on 03-19-2021 Troponin I.cardiac [Mass/Vol] ng/mL Normal 0-0.02 [facility] Comment on above: Result Comment: EBONY [place] Cut off value > or equal to 0.03 ng/mL in conjunction with clinical conditions of myocardial infarction. (www.escardio.org/guidelines) PERFORMED BY: [address] [place] [id number] PATHOLOGIST PRESCHOOL LEAD TEACHER WALDO WANG M.D. Performed By: #### B CHILD CARE COUNSELOR, PTT, CKMB, LIPASE, CK, TROP, CBC, PT, CMP #### [facility] [address] [id number] [facility] Basic Metab w/rfx MGon 09-01 (cont.) Normal [facility] Comment on above: Result Comment: Aver age GFR for 60-69 years old: 85 mL/min/1.73sq m Chronic Kidney Disease: <60 mL/min/1.73sq m Kidney failure: <15 mL/min/1.73sq m eGFR calculated using average adult body mass. Additional eGFR calculator available at: http://www.Metagenics.knowNormal/multiple_crcl_2012.htm Performed By: #### E RTPF #### [facility] [employer] [address] [place] [address] [phone] Roller Coaster Designer: Dheeraj Garcia MD Anion gap [Moles/Vol] 13 mmol/L Normal 9-17 [facility] Comment on above: Performed By: #### E RTPF #### [facility] [employer] [address] [place] [phone] Roller Coaster Designer: Dheeraj Garcia MD Calcium [Mass/Vol] 8.8 mg/dL Normal 8.6-10.4 [facility] Comment on above: Performed By: #### E RTPF #### [facility] [employer] [address] [place] [address] [phone] Roller Coaster Designer: Dheeraj Garcia MD Chloride [Moles/Vol] 106 mmol/L Normal 98-107 [facility] Comment on above: Performed By: #### E RTPF #### [address] [address] Roller Coaster Designer: Dheeraj Garcia MD CO2 [Moles/Vol] 21 mmol/L Normal 20-31 [facility] Comment on above: Performed By: #### E RTPF #### [address] [address] Roller Coaster Designer: Dheeraj Garcia MD Creatinine [Mass/Vol] 0.53 mg/dL Normal 0.50-0.90 [facility] Comment on above: Performed By: #### E RTPF #### [address] [address] Roller Coaster Designer: Dheeraj Garcia MD GFR, Amer >60 Normal >60 [facility] Comment on above: Performed By: #### E RTPF #### [address] [address] Roller Coaster Designer: Dheeraj Garcia MD GFR,non Amer >60 Normal >60 [facility] Comment on above: Performed By: #### E RTPF #### [address] [address] Roller Coaster Designer: Dheeraj Garcia MD Glucose [Mass/Vol] 169 mg/dL High 70-99 [facility] Comment on above: Performed By: #### E RTPF #### [address] [address] Roller Coaster Designer: Dheeraj Garcia MD Potassium [Moles/Vol] 4.0 mmol/L Normal 3.7-5.3 [facility] Comment on above: Performed By: #### E RTPF #### [address] [address] Roller Coaster Designer: Dheeraj Garcia MD Sodium [Moles/Vol] 140 mmol/L Normal 135-144 [facility] Comment on above: Performed By: #### E RTPF #### [facility] [address] [place] [address] Roller Coaster Designer: Dheeraj Garcia MD Urea nitrogen [Mass/Vol] 10 mg/dL Normal 8-23 [facility] Comment on above: Performed By: #### E RTPF #### [facility] [address] [place], [place] [phone] Roller Coaster Designer: Dheeraj Garcia MD BUN/CRE Ratio NOT REPORTED Normal - [facility] Comment on above: Performed By: #### E RTPF #### [facility] [employer] [address] [place] [address] Roller Coaster Designer: Dheeraj Garcia MD Staging: NOT REPORTED Normal [facility] Comment on above: Performed By: #### E RTPF #### [facility] [address] [place], [place] [phone] Roller Coaster Designer: Dheeraj Garcia MD Basic Metabolic Panel w/ Ref martín to MGon 09-01-2020 Anion gap [Moles/Vol] 13 mmol/L 9 - 17 mmol/L [place] Bun/Cre Ratio NOT REPORTED [place] Calcium [Mass/Vol] 8.8 mg/dL 8.6 - 10. 4 mg/dL [place] Chloride [Moles/Vol] 106 mmol/L 98 - 10 7 mmol/L [place] CO2 [Moles/Vol] 21 mmol/L 20 - 31 mmol/L [place] Creatinine [Mass/Vol] 0.53 mg/dL 0.5 - 0.9 mg/dL [place] GFR >60 >60 mL/min [place] GFR Non- >60 >60 mL/min [place] GFR/1.73 sq M predicted among non-blacks MDRD (S/P/Bld) [Vol rate/Area] [place] Comment on above: Average GFR for 60-6 9 years old: 85 mL/min/1.73sq m Chronic Kidney Disease: <60 mL/min/1.73sq m Kidney failure: <15 mL/min/1.73sq m eGFR calculated using average adult body mass. Additional eGFR calculator available at: http://www.NephroGenex/multiple_crcl_2012.htm GFR/1.73 sq M predicted among non-blacks MDRD (S/P/Bld) [Vol rate/Area] NOT REPORTED [place] Glucose [Mass/Vol] 169 mg/dL High 70 - 99 mg/dL [place] Interpretation and review of laboratory results Abnormal [place] Potassium [Moles/Vol] 4.0 mmol/L 3.7 - 5.3 mmol/L [place] Sodium [Moles/Vol] 140 mmol/L 135 - 144 mmol/L [place] Urea nitrogen [Mass/Vol] 10 mg/dL 8 - 23 mg/dL [place] CBC auto differentialon 10- Basophils (Bld) [#/Vol] 0.10 10*3/uL [place] Basophils/100 WBC (Bld) 1 % 0 - 2 % [place] Differential Type NOT REPORTED [place] Eosinophils (Bld) [#/Vol] 0.25 10*3/uL [place] Eosinophils/100 WBC (Bld) 3 % 1 - 4 % [place] Erythrocyte distribution width (RBC) [Ratio] 14.0 % 11.8 - 14.4 % [place] Hematocrit (Bld) [Volume fraction] 40.7 % 36.3 - 47.1 % [place] Hemoglobin (Bld) [Mass/Vol] 12.7 g/dL 11.9 - 15.1 g/dL [place] Immature granulocytes (Bld) [#/Vol] 0.06 10*3/uL [place] Immature granulocytes (Bld) [#/Vol] 1 % High 0 [place] Interpretation and review of laboratory results Abnormal [place] Lymphocytes (Bld) [#/Vol] 2.12 10*3/uL [place] Lymphocytes/100 WBC (Bld) 23 % Low 24 - 43 % [place] MCH (RBC) [Entitic mass] 28.1 pg 25.2 - 33.5 pg [place] MCHC (RBC) [Mass/Vol] 31.2 g/dL 28.4 - 34.8 g/dL [place] MCV (RBC) [Entitic vol] 90.0 fL 82.6 - 102.9 fL [place] Monocytes (Bld) [#/Vol] 0.68 10*3/uL [place] Monocytes/100 WBC (Bld) 7 % 3 - 12 % [place] Platelet mean volume (Bld) [Entitic vol] 10.6 fL 8.1 - 13.5 fL [place] Platelets (Bld) [#/Vol] NOT REPORTED [place] Platelets (Bld) [#/Vol] 251 10*3/uL [place] RBC (Bld) [#/Vol] 4.52 10*6/uL 3.95 - 5.1 1 m/uL [place] RBC morphology finding Nom (Bld) NOT REPORTED [place] Segmented neutrophils/100 WBC (Bld) 65 % 36 - 65 % [place] Segs Absolute 6.18 [place], [place] WBC (Bld) [#/Vol] 0.0 10*3/uL 0.0 per 10 0 WBC [place] WBC (Bld) [#/Vol] 9.4 10*3/uL [place] WBC Morphology NOT REPORTED [place] CBC with Diffon 09-01-2020 Abs. Basophil 0.10 k/uL Normal 0.00-0.20 [facility] Comment on above: Performed By: #### C DP, HCG, ALCB, BMPX, LIPR, GLYHGB #### [address] [address] Roller Coaster Designer: Dheeraj Garcia MD Abs.Imm.Granulocyte 0.06 k/uL Normal 0.00-0.30 [facility] Comment on above: Performed By: #### C DP, HCG, ALCB, BMPX, LIPR, GLYHGB #### [address] [address] Roller Coaster Designer: Dheeraj Garcia MD Abs.Neutrophil (Seg) 6.18 k/uL Normal 1.50-8.10 [facility] Comment on above: Performed By: #### C DP, HCG, ALCB, BMPX, LIPR, GLYHGB #### [place] [address] Roller Coaster Designer: Dheeraj Garcia MD Basophils/100 WBC (Bld) 1 % Normal 0-2 [facility] Comment on above: Performed By: #### C DP, HCG, ALCB, BMPX, LIPR, GLYHGB #### [place] [address] Roller Coaster Designer: Dheeraj Garcia MD Eosinophils (Bld) [#/Vol] 0.25 10*3/uL Normal 0.00-0.44 [facility] Comment on above: Performed By: #### C DP, HCG, ALCB, BMPX, LIPR, GLYHGB #### [address] [address] Roller Coaster Designer: Dheeraj Garcia MD Eosinophils/100 WBC (Bld) 3 % Normal 1-4 [facility] Comment on above: Performed By: #### C DP, HCG, ALCB, BMPX, LIPR, GLYHGB #### [address] [address] Roller Coaster Designer: Dheeraj Garcia MD Erythrocyte distribution width (RBC) [Ratio] 14.0 % Normal 11.8-14.4 [facility] Comment on above: Performed By: #### C DP, HCG, ALCB, BMPX, LIPR, GLYHGB #### [facility] [employer] [address] [place] [address] Roller Coaster Designer: Dheeraj Garcia MD Hematocrit (Bld) [Volume fraction] 40.7 % Normal 36.3-47.1 [facility] Comment on above: Performed By: #### C DP, HCG, ALCB, BMPX, LIPR, GLYHGB #### [place] [address] Roller Coaster Designer: Dheeraj Garcia MD Hemoglobin (Bld) [Mass/Vol] 12.7 g/dL Normal 11.9-15.1 [facility] Comment on above: Performed By: #### C DP, HCG, ALCB, BMPX, LIPR, GLYHGB #### [facility] [employer] [address] [place] [address] Roller Coaster Designer: Dheeraj Garcia MD Immature granulocytes (Bld) [#/Vol] 1 % High 0 [facility] Comment on above: Performed By: #### C DP, HCG, ALCB, BMPX, LIPR, GLYHGB #### [place] [address] Roller Coaster Designer: Dheeraj Garcia MD Lymphocytes (Bld) [#/Vol] 2.12 10*3/uL Normal 1.10-3.70 [facility] Comment on above: Performed By: #### C DP, HCG, ALCB, BMPX, LIPR, GLYHGB #### [facility] [employer] [address] [place] [address] Roller Coaster Designer: Dheeraj Garcia MD Lymphocytes/100 WBC (Bld) 23 % Low 24-43 [facility] Comment on above: Performed By: #### C DP, HCG, ALCB, BMPX, LIPR, GLYHGB #### [address] [address] Roller Coaster Designer: Dheeraj Garcia MD MCH (RBC) [Entitic mass] 28.1 pg Normal 25.2-33.5 [facility] Comment on above: Performed By: #### C DP, HCG, ALCB, BMPX, LIPR, GLYHGB #### [address] [address] Roller Coaster Designer: Dheeraj Garcai MD MCHC (RBC) [Mass/Vol] 31.2 g/dL Normal 28.4-34.8 [facility] Comment on above: Performed By: #### C DP, HCG, ALCB, BMPX, LIPR, GLYHGB #### [place] [address] Roller Coaster Designer: Dheeraj Garcia MD MCV (RBC) [Entitic vol] 90.0 fL Normal 82.6-102.9 [facility] Comment on above: Performed By: #### C DP, HCG, ALCB, BMPX, LIPR, GLYHGB #### [place] [address] Roller Coaster Designer: Dheeraj Garcia MD Monocytes (Bld) [#/Vol] 0.68 10*3/uL Normal 0.10-1.20 [facility] Comment on above: Performed By: #### C DP, HCG, ALCB, BMPX, LIPR, GLYHGB #### [address] [address] Roller Coaster Designer: Dheeraj Garcia MD Monocytes/100 WBC (Bld) 7 % Normal 3-12 [facility] Comment on above: Performed By: #### C DP, HCG, ALCB, BMPX, LIPR, GLYHGB #### [place] [address] Roller Coaster Designer: Dheeraj Garcia MD Neutrophil (Seg) 65 % Normal 36-65 [facility] Comment on above: Performed By: #### C DP, HCG, ALCB, BMPX, LIPR, GLYHGB #### [address] [address] Roller Coaster Designer: Dheeraj Garcia MD NRBC Automated 0.0 per 100 WBC Normal 0.0 [facility] Comment on above: Performed By: #### C DP, HCG, ALCB, BMPX, LIPR, GLYHGB #### [address] [address] Roller Coaster Designer: Dheeraj Garcia MD Platelet mean volume (Bld) [Entitic vol] 10.6 fL Normal 8.1-13.5 [facility] Comment on above: Performed By: #### C DP, HCG, ALCB, BMPX, LIPR, GLYHGB #### [address] [address] Roller Coaster Designer: Dheeraj Garcia MD Platelets (Bld) [#/Vol] 251 10*3/uL Normal 138-453 [facility] Comment on above: Performed By: #### C DP, HCG, ALCB, BMPX, LIPR, GLYHGB #### [address] [address] Roller Coaster Designer: Dheeraj Garcia MD RBC (Bld) [#/Vol] 4.52 10*6/uL Normal 3.95-5.11 [facility] Comment on above: Performed By: #### C DP, HCG, ALCB, BMPX, LIPR, GLYHGB #### [address] [address] Roller Coaster Designer: Dheeraj Garcia MD WBC (Bld) [#/Vol] 9.4 10*3/uL Normal 3.5-11.3 [facility] Comment on above: Performed By: #### C DP, HCG, ALCB, BMPX, LIPR, GLYHGB #### [facility] [address] [place] [address] Roller Coaster Designer: Dheeraj Garcia MD Auto Diff Performed NOT REPORTED Normal [facility] Comment on above: Performed By: #### C DP, HCG, ALCB, BMPX, LIPR, GLYHGB #### [address] [address] Roller Coaster Designer: Dheeraj Garcia MD Platelets (Bld) [#/Vol] NOT REPORTED Normal [facility] Comment on above: Performed By: #### C DP, HCG, ALCB, BMPX, LIPR, GLYHGB #### [address] [address] Roller Coaster Designer: Dheeraj Garcia MD RBC morphology finding Nom (Bld) NOT REPORTED Normal [facility] Comment on above: Performed By: #### C DP, HCG, ALCB, BMPX, LIPR, GLYHGB #### [address] [address] Roller Coaster Designer: Dheeraj Garcia MD WBC Morphology NOT REPORTED Normal [facility] Comment on above: Performed By: #### C DP, HCG, ALCB, BMPX, LIPR, GLYHGB #### [address] [address] Roller Coaster Designer: Dheeraj Garcia MD Echo Completeon 09-01-2020 [place], [facility] Incoming Cardio Results From [facility]/ - 09/01/2020 3:37 PM EDT Transthoracic Echocardiography Report (TTE) Patient Name DENDINGER Date of Study 09/01/2020 YEYO Date of 1955 Gender Female Age 64 year(s) Race Room Number 0234 Height: 65 inch, 165.1 cm Corporate ID [id number] Weight: 232 pounds, 105.2 kg # Patient Acct [id number] BSA: 2.11 m^2 BMI: 38.61 # kg/m^2 MR # [id number] Bo[employer] Tender Pérez Lao Interpreting Physician Abundio Aguilar Fellow Referring Nurse Practitioner Interpreting Referring Physician Moisés Knight Type of Study TTE procedure:2D Echocardiogram, M-Mode, Doppler, Color Doppler, Bubble Study. Procedure Date Date: 09/01/2020 Start: 07:38 AM Study Location: [facility] Technical Quality: Fair visualization Comments:Syncope, R/o [...] Wall E' velocity:0.07 m/s Lateral Wall E/E':8.8 [place] Transthoracic Echocardiography Report (TTE) Patient Name DENDINGER Date of Study 09/01/2020 YEYO Date of 1955 Gender Female Age 64 year(s) Race Room Number 0234 Height: 65 inch, 165.1 cm Corporate ID [id number] Weight: 232 pounds, 105.2 kg # Patient Acct [id number] BSA: 2.11 m^2 BMI: 38.61 # kg/m^2 MR # [id number] Boom Tender Pérez Lao Interpreting Physician Abundio Aguilar Fellow Referring Nurse Practitioner Interpreting Referring Physician Moisés Rodríguez Fellow Type of Study TTE procedure:2D Echocardiogram, M-Mode, Doppler, Color Doppler, Bubble Study. Procedure Date Date: 09/01/2020 Start: 07:38 AM Study Location: [facility] Technical Quality: Fair visualization Comments:Syncope, R/o [...] Wall E' velocity:0.07 m/s Lateral Wall E/E':8.8 [place] Ethanolon 09-01-2020 Ethanol [Mass/Vol] mg/dL <10 mg/dL [place] Ethanol percent <0.010 <0.010 % [place] Ethanol Alcoholon 09-01-2020 Ethanol [Mass/Vol] mg/dL Normal <10 [facility] Comment on above: Performed By: #### E RTPF #### [facility] [address] [place], [place] [phone] Roller Coaster Designer: Dheeraj Garcia MD Ethanol percent <0.010 Normal <0.010 [facility] Comment on above: Performed By: #### E RTPF #### [facility] [address] [place], [place] [phone] Roller Coaster Designer: Dheeraj Garcia MD HCG Qualitative, Serumon hCG Qual Negative NEGATIVE [place] Comment on above: Specimens with hCG l evels near the threshold of the test (25 mIU/mL) may give a negative or indeterminate result. In such cases, another test should be performed with a new specimen in 48-72 hours. If early is suspected clinically in this setting, correlation with quantitative serum b-hCG level is suggested. [employer] has confirmed the use of plasma for this test. This has not been cleared or approved by the U.S. Food and Drug Administration. The FDA has determined that such clearance is not necessary. HCG Screen, Bloodon 09-01-20 20 HCG Qn Negative Normal NEG [facility] Comment on above: Result Comment: Spec imens with hCG levels near the threshold of the test (25 mIU/mL) may give a negative or indeterminate result. In such cases, another test should be performed with a new specimen in 48-72 hours. If early is suspected clinically in this setting, correlation with quantitative serum b-hCG level is suggested. [employer] has confirmed the use of plasma for this test. This has not been cleared or approved by the U.S. Food and Drug Administration. The FDA has determined that such clearance is not necessary. Performed By: #### E RTPF #### [facility] [place], [place] [id number] Roller Coaster Designer: Dheeraj Garcia MD Hematologyon 09-01-2020 WBC (Bld) [#/Vol] DUPLICATE ORDER per 100 WBC M [place] Hemoglobin A1Con 09-01-2020 HbA1c (Bld) [Mass fraction] 151 mg/dL Normal [facility] Comment on above: Result Comment: The ADA and AACC recommend providing the estimated average glucose result to permit better patient understanding of their HBA1c result. Performed By: #### E RTPF #### [address] [id number] Roller Coaster Designer: Dheeraj Garcia MD HbA1c (Bld) [Mass fraction] 6.9 % High 4.0-6.0 [facility] Comment on above: Performed By: #### E RTPF #### [facility] [employer] [address] [place] [address] [phone] Roller Coaster Designer: Dheeraj Garcia MD Hemoglobin A1con 09-01-2020 Glucose [Mass/Vol] 151 mg/dL [place] Comment on above: The ADA and AACC rec ommend providing the estimated average glucose result to permit better patient understanding of their HBA1c result. HbA1c (Bld) [Mass fraction] 6.9 % High 4 - 6 % [place] Interpretation and review of laboratory results Abnormal [place] Lipid Profileon 09-01-2020 Cholesterol [Mass/Vol] 123 mg/dL Normal <200 [facility] Comment on above: Result Comment: Cholesterol Guidelines: <200 Desirable 200-240 Borderline >240 Undesirable Performed By: #### E RTPF #### [address] [phone] Roller Coaster Designer: Dheeraj Garcia MD Cholesterol in HDL [Mass/Vol] 43 mg/dL Normal >40 [facility] Comment on above: Result Comment: HDL Guidelines: <40 Undesirable 40-59 Borderline >59 Desirable Performed By: #### E RTPF #### [address] [id number] Roller Coaster Designer: Dheeraj Garcia MD Cholesterol in LDL [Mass/Vol] 50 mg/dL Normal 0-130 [facility] Comment on above: Result Comment: LDL Guidelines: <100 Desirable 100-129 Near to/above Desirable 130-159 Borderline >159 Undesirable Direct (measured) LDL and calculated LDL are not interchangeable tests. Performed By: #### E RTPF #### [facility] [employer] [facility] [place] [address] Roller Coaster Designer: Dheeraj Garcia MD Cholesterol.total/Chol esterol in HDL [Mass ratio] 2.9 {ratio} Normal <5 [facility] Comment on above: Performed By: #### E RTPF #### [facility] [employer] [address] [place] [address] Roller Coaster Designer: Dheeraj Garcia MD Triglyceride [Mass/Vol] 149 mg/dL Normal <150 [facility] Comment on above: Result Comment: Triglyceride Guidelines: <150 Desirable 150-199 Borderline 200-499 High >499 Very high Based on AHA Guidelines for fasting triglyceride, August 2012. Performed By: #### E RTPF #### [facility] [employer] [address] [place] [address] Roller Coaster Designer: Dheeraj Garcia MD Cholesterol in VLDL [Mass/Vol] NOT REPORTED Normal 1-30 [facility] Comment on above: Performed By: #### E RTPF #### [facility] [employer] [address] [place] [address] Roller Coaster Designer: Dheeraj Garcia MD Lipid panel - fastingon 08-17 Cholesterol [Mass/Vol] 123 mg/dL <200 [place] Comment on above: Cholesterol Guidelines: <200 Desirable 200-240 Borderline >240 Undesirable Cholesterol in HDL [Mass/Vol] 43 mg/dL >40 [place] Comment on above: HDL Guidelines: <40 Undesirable 40-59 Borderline >59 Desirable Cholesterol in LDL [Mass/Vol] 50 mg/dL 0 - 130 mg/dL [place] Comment on above: LDL Guidelines: <100 Desirable 100-129 Near to/above Desirable 130-159 Borderline >159 Undesirable Direct (measured) LDL and calculated LDL are not interchangeable tests. Cholesterol in VLDL [Mass/Vol] NOT REPORTED 1 - 30 mg/dL [place] Cholesterol.total/Chol esterol in HDL [Mass ratio] 2.9 {ratio} <5 [place] Triglyceride [Mass/Vol] 149 mg/dL <150 [place] Comment on above: Triglyceride Guidelines: <150 Desirable 150-199 Borderline 200-499 High >499 Very high Based on AHA Guidelines for fasting triglyceride, August 2012. Metabolic Panelon 09-01-2020 GFR/1.73 sq M predicted among non-blacks MDRD (S/P/Bld) [Vol rate/Area] DUPLICATE ORDER [place] TRAUMA PANELon 09-01-2020 Hubert Test NOT REPORTED [place] Anion gap [Moles/Vol] DUPLICATE ORDER mmol/L [place] aPTT Coag (Bld) [Time] 27.5 s [place] Comment on above: IV Heparin Therapy Range: 48.6-77.8 aPTT Coag (Bld) [Time] 37.0 s [place] Blood Bank Specimen BILL FOR SERVICES PERFORMED [place] Carboxyhemoglobin 0.6 % 0 - 5 % [place] Comment on above: Reference Range: Non-Smokers 0-2% Average Smoker 2-4% Heavy Smoker <10% Chloride [Moles/Vol] DUPLICATE ORDER mmol/L [place] CO2 [Moles/Vol] DUPLICATE ORDER mmol/L [place] Creatinine [Mass/Vol] DUPLICATE ORDER mg/dL [place] Erythrocyte distribution width (RBC) [Ratio] DUPLICATE ORDER % [place] Ethanol [Mass/Vol] Order moved to nearest draw time. [id number] mg/dL [place] Ethanol percent Order moved to nearest draw time. [id number] % [place] FIO2 UNKNOWN [place] GFR DUPLICATE ORDER >60 mL/min [place] GFR Non- DUPLICATE ORDER >60 mL/min [place] Glucose [Mass/Vol] DUPLICATE ORDER mg/dL M [place] hCG Qual Order moved to nearest draw time. [id number] NEGATIVE [place] HCO3, Venous 27.6 mmol/L 24 - 30 mmol/L [place] Hematocrit (Bld) [Volume fraction] DUPLICATE ORDER % [place] Hemoglobin (Bld) [Mass/Vol] DUPLICATE ORDER g/dL [place] INR Coag (PPP) [Relative time] 1.0 {INR} [place] Comment on above: Therapeutic Range: Moderate Anticoagulant Intensity: INR = 2.0-3.0 High Anticoagulant Intensity: INR = 2.5-3.5 Interpretation and review of laboratory results Abnormal [place] MCH (RBC) [Entitic mass] DUPLICATE ORDER pg [place] MCHC (RBC) [Mass/Vol] DUPLICATE ORDER g/dL [place] MCV (RBC) [Entitic vol] DUPLICATE ORDER fL [place] Methemoglobin NOT REPORTED 0 - 1.5 % [place] Mode NOT REPORTED [place] Negative Base Excess, Christo NOT REPORTED 0 - 2 mmol/L [place] NOTIFICATION NOT [place]PORTED [place] NOTIFICATION TIME NOT REPORTED [place] O2 Device/Flow/% NOT REPORTED [place] Oxygen saturation in Blood 43.1 % Low 60 - 85 % [place] Oxyhemoglobin NOT REPORTED 95 - 98 % [place] pCO2, Christo 48.8 [place] pCO2, Christo, Temp Adj NOT REPORTED [place] Peep/Cpap NOT REPORTED [place] pH, Christo 7.371 [place] pH, Christo, Temp Adj NOT REPORTED [place] Platelet mean volume (Bld) [Entitic vol] DUPLICATE ORDER fL [place] Platelets (Bld) [#/Vol] DUPLICATE ORDER k/uL [place] pO2, Hcristo 23.6 Low [place], [place] pO2, Christo, Temp Adj NOT REPORTED [place], [place] Positive Base Excess, Christo 2.1 mmol/L High 0 - 2 mmol/L [place] Potassium [Moles/Vol] DUPLICATE ORDER mmol/L [place] PSV NOT REPORTED [place] PT Coag (PPP) [Time] 10.4 s [place], [place] Pt. Position NOT REPORTED [place], [place] RBC (Bld) [#/Vol] DUPLICATE ORDER m/uL [place] Sample Site NOT REPORTED [place], [place] Set Rate NOT REPORTED [place] Sodium [Moles/Vol] DUPLICATE ORDER mmol/L [place], [place] Text for Respiratory NOT REPORTED [place] Total Hb NOT REPORTED 12 - 16 g/dl [place] Total Rate NOT REPORTED [place] Urea nitrogen [Mass/Vol] DUPLICATE ORDER mg/dL [place] REPORTED [place] Trauma Profileon 09-01-2020 aPTT Coag (Bld) [Time] 27.5 s Normal 20.5-30.5 [facility] Comment on above: Result Comment: IV Heparin Therapy Range: 48.6-77.8 Performed By: #### E RTPF #### [address] [id number] [employer] Coaster Designer: Dheeraj Garcia MD INR Coag (PPP) [Relative time] 1.0 {INR} Normal [facility] Comment on above: Result Comment: Therapeutic Range: Moderate Anticoagulant Intensity: INR = 2.0-3.0 High Anticoagulant Intensity: INR = 2.5-3.5 Performed By: #### E RTPF #### [place] [id number] [employer] Designer: Dheeraj Garcia MD PT Coag (PPP) [Time] 10.4 s Normal 9.0-12.0 [facility] Comment on above: Performed By: #### E RTPF #### [address] [phone] [employer] Designer: Dheeraj Garcia MD Body Temp. 37.0 Normal [facility] Comment on above: Performed By: #### E RTPF #### [address] [place] [address] Roller Coaster Designer: Dheeraj Garcia MD Carboxy Hgb 0.6 % Normal 0-5 [facility] Comment on above: Result Comment: Reference Range: Non-Smokers 0-2% Average Smoker 2-4% Heavy Smoker <10% Performed By: #### E RTPF #### [address] [address] [employer] Coaster Designer: Dheeraj Garcia MD FIO2 UNKNOWN Normal [facility] Comment on above: Performed By: #### E RTPF #### [address] [address] Roller Coaster Designer: Dheeraj Garcia MD HCO3 (Bld) [Moles/Vol] 27.6 mmol/L Normal 24-30 M [facility] [place] Comment on above: Performed By: #### E RTPF #### [address] [address] Rol[employer] Coaster Designer: Dheeraj Garcia MD Oxygen (Bld) [Partial pressure] 23.6 mm[Hg] Low 30-50 [facility] Comment on above: Performed By: #### E RTPF #### [address] [address] Roller Coaster Designer: Dheeraj Garcia MD Oxygen saturation in Blood 43.1 % Low 60.0-85.0 [facility] Comment on above: Performed By: #### E RTPF #### [address] [address] Roller Coaster Designer: Dheeraj Garcia MD pCO2 48.8 Normal 39-55 [facility] Comment on above: Performed By: #### E RTPF #### [address] [address] Roller Coaster Designer: Dheeraj Garcia MD pH (Bld) 7.371 [pH] Normal 7.320-7.420 [facility] Comment on above: Performed By: #### E RTPF #### [address] [address] Roller Coaster Designer: Dheeraj Garcia MD Positive Base Excess 2.1 mmol/L High 0.0-2.0 [facility] Comment on above: Performed By: #### E RTPF #### [address] [address] [employer] Coaster Designer: Dheeraj Garcia MD Hubert Test NOT REPORTED Normal [facility] Comment on above: Performed By: #### E RTPF #### [address] [address] [employer] Coaster Designer: Dheeraj Garcia MD Methemoglobin NOT REPORTED Normal 0.0-1.5 [facility] Comment on above: Performed By: #### E RTPF #### [address] [address] [employer] Coaster Designer: Dheeraj Garcia MD Mode NOT REPORTED Normal [facility] Comment on above: Performed By: #### E RTPF #### [address] [address] [employer] Coaster Designer: Dheeraj Garcia MD Negative Base Excess NOT REPORTED Normal 0.0-2.0 [facility] Comment on above: Performed By: #### E RTPF #### [facility] [employer] [address] [place] [address] Rol[employer] Coaster Designer: Dheeraj Garcia MD Notification Time NOT REPORTED Normal [facility] Comment on above: Performed By: #### E RTPF #### [facility] [employer] [address] [place] [address] [employer] Designer: Dheeraj Garcia MD Notification: NOT REPORTED Normal [facility] Comment on above: Performed By: #### E RTPF #### [address] [address] Rol[employer] Coaster Designer: Dheeraj Garcia MD O2 Device/Flow/% NOT REPORTED Normal [facility] Comment on above: Performed By: #### E RTPF #### [address] [address] [employer] Coaster Designer: Dheeraj Garcia MD Oxyhemoglobin NOT REPORTED Normal 95.0-98.0 [facility] Comment on above: Performed By: #### E RTPF #### [address] [address] [employer] Designer: Dheeraj Garcia MD Pco2 Adj'd for Temp. NOT REPORTED Normal 39-55 Me [facility] Comment on above: Performed By: #### E RTPF #### [address] [address] [employer] Coaster Designer: Dheeraj Garcia MD PEEP/CPAP NOT REPORTED Normal [facility] Comment on above: Performed By: #### E RTPF #### [address] [address] [employer] Coaster Designer: Dheeraj Garcia MD pH Adjst'd for Temp. NOT REPORTED Normal 7.320-7.420 M [facility] [place] Comment on above: Performed By: #### E RTPF #### [address] [address] [employer] Coaster Designer: Dheeraj Garcia MD pO2 Adj'd for Temp. NOT REPORTED Normal 30-50 [facility] Comment on above: Performed By: #### E RTPF #### [address] [address] [employer] Coaster Designer: Dheeraj Garcia MD PSV NOT REPORTED Normal [facility] Comment on above: Performed By: #### E RTPF #### [address] [place] [address] Roller Coaster Designer: Dheeraj Garcia MD Pt. Position NOT REPORTED Normal [facility] Comment on above: Performed By: #### E RTPF #### [facility] [place] [address] Roller Coaster Designer: Dheeraj Garcia MD Set Rate NOT REPORTED Normal [facility] Comment on above: Performed By: #### E RTPF #### [facility] [employer] [address] [place] [address] [employer] Coaster Designer: Dheeraj Garcia MD Site Drawn NOT REPORTED Normal [facility] Comment on above: Performed By: #### E RTPF #### [address] [address] Roller Coaster Designer: Dheeraj Garcia MD Text for Respiratory NOT REPORTED Normal [facility] Comment on above: Performed By: #### E RTPF #### [address] [address] [employer] Coaster Designer: Dheeraj Garcia MD Total Hb NOT REPORTED Normal 12.0-16.0 [facility] Comment on above: Performed By: #### E RTPF #### [address] [address] [employer] Coaster Designer: Dheeraj Garcia MD Total Rate NOT REPORTED Normal [facility] Comment on above: Performed By: #### E RTPF #### [facility] [employer] [address] [place] [address] [employer] Coaster Designer: Dheeraj Garcia MD [place] NOT REPORTED Normal [facility] Comment on above: Performed By: #### E RTPF #### [facility] [employer] [address] [place] [address] Rol[employer] Coaster Designer: Dheeraj Garcia MD Blood Bank BILL FOR SERVICES PERFORMED Normal [facility] Comment on above: Performed By: #### E RTPF #### [place] [id number] [place] [id number] Roller Coaster Designer: Dheeraj Garcia MD CT CERVICAL SPINE WO [...] Krishna Martell DO 08/30/20 Final result Normal [facility] CT CHEST ABDOMEN PELVIS W CO [...] Brenda Sheldon MD 08/30/20 Final result Normal [facility] CT LUMBAR SPINE TRAUMA RECON STRUCTIONon [...] Krishna Martell DO 08/30/20 Final result Normal [facility] CT THORACIC SPINE TRAUMA REC ONSTRUCTIONon [...] Krishna Martell DO 08/30/20 Final result Normal [facility] CTA HEAD NECK W CONTRASTon 1 [...] Dom Zhong MD 08/30/20 Final result Normal [facility] MRI LIMITED BRAINon 08-31-20 MRI LIMITED BRAIN [...] Hector Cooper MD 08/31/20 Final result Normal [facility] [place], [facility] Incoming Radiant Results From ReVera/Always Prepped - 08/31/2020 11:56 AM EDT EXAMINATION: MRI [...] chronic microvascular disease without acute intracranial abnormality. [place] Minimal chronic microvascular disease without acute intracranial abnormality. [place] EXAMINATION: MRI OF THE BRAIN WITHOUT [...] The soft tissues demonstrate no acute abnormality. [place] Trauma Profileon 08-31-2020 Erythrocyte distribution width (RBC) [Ratio] 14.1 % Normal 11.8-14.4 [facility] Comment on above: Performed By: #### E RTPF #### [address] [address] Roller Coaster Designer: Dheeraj Garcia MD Hematocrit (Bld) [Volume fraction] 38.2 % Normal 36.3-47.1 [facility] Comment on above: Performed By: #### E RTPF #### [address] [address] [employer] Coaster Designer: Dheeraj Garcia MD Hemoglobin (Bld) [Mass/Vol] 12.3 g/dL Normal 11.9-15.1 [facility] Comment on above: Performed By: #### E RTPF #### [address] [address] Roller Coaster Designer: Dheeraj Garcia MD MCH (RBC) [Entitic mass] 28.9 pg Normal 25.2-33.5 [facility] Comment on above: Performed By: #### E RTPF #### [address] [address] Roller Coaster Designer: Dheeraj Garcia MD MCHC (RBC) [Mass/Vol] 32.2 g/dL Normal 28.4-34.8 [facility] Comment on above: Performed By: #### E RTPF #### [address] [address] Roller Coaster Designer: Dheeraj Garcia MD MCV (RBC) [Entitic vol] 89.7 fL Normal 82.6-102.9 [facility] Comment on above: Performed By: #### E RTPF #### [address] [address] Roller Coaster Designer: Dheeraj Garcia MD NRBC Automated 0.0 per 100 WBC Normal 0.0 [facility] Comment on above: Performed By: #### E RTPF #### [address] [address] Roller Coaster Designer: Dheeraj Garcia MD Platelet mean volume (Bld) [Entitic vol] 10.6 fL Normal 8.1-13.5 [facility] Comment on above: Performed By: #### E RTPF #### [address] [address] Roller Coaster Designer: Dheeraj Garcia MD Platelets (Bld) [#/Vol] 268 10*3/uL Normal 138-453 [facility] Comment on above: Performed By: #### E RTPF #### [address] [address] Roller Coaster Designer: Dheeraj Garcia MD RBC (Bld) [#/Vol] 4.26 10*6/uL Normal 3.95-5.11 [facility] Comment on above: Performed By: #### E RTPF #### [address] [address] Roller Coaster Designer: Dheeraj Garcia MD WBC (Bld) [#/Vol] 8.7 10*3/uL Normal 3.5-11.3 [facility] Comment on above: Performed By: #### E RTPF #### [address] [address] Roller Coaster Designer: Dheeraj Garcia MD (cont.) Normal [facility] Comment on above: Result Comment: Aver age GFR for 60-69 years old: 85 mL/min/1.73sq m Chronic Kidney Disease: <60 mL/min/1.73sq m Kidney failure: <15 mL/min/1.73sq m eGFR calculated using average adult body mass. Additional eGFR calculator available at: http://www.[employer]/multiple_crcl_2011.htm Performed By: #### E RTPF #### [facility] [employer] [address] [place] [address] Roller Coaster Designer: Dheeraj Garcia MD Anion gap [Moles/Vol] 10 mmol/L Normal 9-17 [facility] Comment on above: Performed By: #### E RTPF #### [address] [address] Roller Coaster Designer: Dheeraj Garcia MD Chloride [Moles/Vol] 106 mmol/L Normal 98-107 [facility] Comment on above: Performed By: #### E RTPF #### [address] [address] Roller Coaster Designer: Dheeraj Garcia MD CO2 [Moles/Vol] 23 mmol/L Normal 20-31 [facility] Comment on above: Performed By: #### E RTPF #### [address] [address] [employer] Coaster Designer: Dheeraj Garcia MD Creatinine [Mass/Vol] 0.62 mg/dL Normal 0.50-0.90 [facility] Comment on above: Performed By: #### E RTPF #### [address] [address] [employer] Coaster Designer: Dheeraj Garcia MD Ethanol [Mass/Vol] mg/dL Normal <10 [facility] Comment on above: Performed By: #### E RTPF #### [facility] [employer] [address] [place] [address] Roller Coaster Designer: Dheeraj Garcia MD Ethanol percent <0.010 Normal <0.010 [facility] Comment on above: Performed By: #### E RTPF #### [facility] [employer] [address] [place] [address] Roller Coaster Designer: Dheeraj Garcia MD GFR, Amer >60 Normal >60 [facility] Comment on above: Performed By: #### E RTPF #### [address] [address] Roller Coaster Designer: Dheeraj Garcia MD GFR,non Amer >60 Normal >60 [facility] Comment on above: Performed By: #### E RTPF #### [address] [address] Rol[employer] Co[employer] Designer: Dheeraj Garcia MD Glucose [Mass/Vol] 186 mg/dL High 70-99 [facility] Comment on above: Performed By: #### E RTPF #### [address] [address] Roller Coaster Designer: Dheeraj Garcia MD Potassium [Moles/Vol] 3.5 mmol/L Low 3.7-5.3 [facility] Comment on above: Performed By: #### E RTPF #### [address] [address] Rol[employer] Coaster Designer: Dheeraj Garcia MD Sodium [Moles/Vol] 139 mmol/L Normal 135-144 [facility] Comment on above: Performed By: #### E RTPF #### [address] [address] Rol[employer] Coaster Designer: Dheeraj Garcia MD Urea nitrogen [Mass/Vol] 11 mg/dL Normal 8-23 [facility] Comment on above: Performed By: #### E RTPF #### [address] [address] Roller Coaster Designer: Dheeraj Garcia MD aPTT Coag (Bld) [Time] 24.4 s Normal 20.5-30.5 [facility] Comment on above: Result Comment: IV Heparin Therapy Range: 48.6-77.8 Performed By: #### E RTPF #### [address] [address] Roller Coaster Designer: Dheeraj Garcia MD INR Coag (PPP) [Relative time] 1.0 {INR} Normal [facility] Comment on above: Result Comment: Therapeutic Range: Moderate Anticoagulant Intensity: INR = 2.0-3.0 High Anticoagulant Intensity: INR = 2.5-3.5 Performed By: #### E RTPF #### [address] [address] Roller Coaster Designer: Dheeraj Garcia MD PT Coag (PPP) [Time] 10.5 s Normal 9.0-12.0 [facility] Comment on above: Performed By: #### E RTPF #### [address] [address] Roller Coaster Designer: Dheeraj Garcia MD Body Temp. 37.0 [facility] Comment on above: Performed By: #### E RTPF #### [address] [address] Roller Coaster Designer: Dheeraj Garcia MD Carboxy Hgb 2.2 % Normal 0-5 [facility] Comment on above: Result Comment: Reference Range: Non-Smokers 0-2% Average Smoker 2-4% Heavy Smoker <10% Performed By: #### E RTPF #### [address] [address] Roller Coaster Designer: Dheeraj Garcia MD FIO2 INFORMATION NOT PROVIDED Normal [facility] Comment on above: Performed By: #### E RTPF #### [address] [address] Roller Coaster Designer: Dheeraj Garcia MD HCO3 (Bld) [Moles/Vol] 23.6 mmol/L Low 24-30 M [facility] [place] Comment on above: Performed By: #### E RTPF #### [address] [place] [address] Roller Coaster Designer: Dheeraj Garcia MD Negative Base Excess 0.8 mmol/L Normal 0.0-2.0 [facility] Comment on above: Performed By: #### E RTPF #### [address] [address] Roller Coaster Designer: Dheeraj Garcia MD Oxygen (Bld) [Partial pressure] 143.0 mm[Hg] High 30-50 [facility] Comment on above: Performed By: #### E RTPF #### [address] [address] Roller Coaster Designer: Dheeraj Garcia MD Oxygen saturation in Blood 98.6 % High 60.0-85.0 [facility] Comment on above: Performed By: #### E RTPF #### [address] [address] Roller Coaster Designer: Dheeraj Garcia MD pCO2 40.6 Normal 39-55 [facility] Comment on above: Performed By: #### E RTPF #### [address] [address] Roller Coaster Designer: Dheeraj Garcia MD pH (Bld) 7.383 [pH] Normal 7.320-7.420 [facility] Comment on above: Performed By: #### E RTPF #### [address] [address] Roller Coaster Designer: Dheeraj Garcia MD Blood Bank BILL FOR SERVICES PERFORMED Normal [facility] Comment on above: Performed By: #### E RTPF #### [address] [address] Roller Coaster Designer: Dheeraj Garcia MD Hubert Test NOT REPORTED Normal [facility] Comment on above: Performed By: #### E RTPF #### [address] [address] Roller Coaster Designer: Dheeraj Garcia MD Methemoglobin NOT REPORTED Normal 0.0-1.5 [facility] Comment on above: Performed By: #### E RTPF #### [address] [address] Roller Coaster Designer: Dheeraj Garcia MD Mode NOT REPORTED Normal [facility] Comment on above: Performed By: #### E RTPF #### [address] [address] Roller Coaster Designer: Dheeraj Garcia MD Notification Time NOT REPORTED Normal [facility] Comment on above: Performed By: #### E RTPF #### [address] [address] Roller Coaster Designer: Dheeraj Garcia MD Notification: NOT REPORTED Normal [facility] Comment on above: Performed By: #### E RTPF #### [address] [address] Roller Coaster Designer: Dheeraj Garcia MD O2 Device/Flow/% NOT REPORTED Normal [facility] Comment on above: Performed By: #### E RTPF #### [address] [address] Roller Coaster Designer: Dheeraj Garcia MD Oxyhemoglobin NOT REPORTED Normal 95.0-98.0 [facility] Comment on above: Performed By: #### E RTPF #### [address] [address] Roller Coaster Designer: Dheeraj Garcia MD Pco2 Adj'd for Temp. NOT REPORTED Normal 39-55 [facility] Comment on above: Performed By: #### E RTPF #### [address] [address] Roller Coaster Designer: Dheeraj Garcia MD PEEP/CPAP NOT REPORTED Normal [facility] Comment on above: Performed By: #### E RTPF #### [address] [address] Roller Coaster Designer: Dheeraj Garcia MD pH Adjst'd for Temp. NOT REPORTED Normal 7.320-7.420 [facility] [place] Comment on above: Performed By: #### E RTPF #### [address] [address] Roller Coaster Designer: Dheeraj Garcia MD pO2 Adj'd for Temp. NOT REPORTED Normal 30-50 [facility] Comment on above: Performed By: #### E RTPF #### [address] [address] Roller Coaster Designer: Dheeraj Garcia MD Positive Base Excess NOT REPORTED Normal 0.0-2.0 [facility] Comment on above: Performed By: #### E RTPF #### [address] [address] Roller Coaster Designer: Dheeraj Garcia MD PSV NOT REPORTED Normal [facility] Comment on above: Performed By: #### E RTPF #### [address] [address] Roller Coaster Designer: Dheeraj Garcia MD Pt. Position NOT REPORTED Normal [facility] Comment on above: Performed By: #### E RTPF #### [address] [address] Roller Coaster Designer: Dheeraj Garcia MD Set Rate NOT REPORTED Normal [facility] Comment on above: Performed By: #### E RTPF #### [address] [address] Roller Coaster Designer: Dheeraj Garcia MD Site Drawn NOT REPORTED Normal [facility] Comment on above: Performed By: #### E RTPF #### [address] [address] Roller Coaster Designer: Dheeraj Garcia MD Staging: NOT REPORTED Normal [facility] Comment on above: Performed By: #### E RTPF #### [address] [address] Roller Coaster Designer: Dheeraj Garcia MD Text for Respiratory NOT REPORTED Normal [facility] Comment on above: Performed By: #### E RTPF #### [address] [address] Roller Coaster Designer: Dheeraj Garcia MD Total Hb NOT REPORTED Normal 12.0-16.0 [facility] Comment on above: Performed By: #### E RTPF #### [address] [address] Roller Coaster Designer: Dheeraj Garcia MD Total Rate NOT REPORTED Normal [facility] Comment on above: Performed By: #### E RTPF #### [address] [address] Roller Coaster Designer: Dheeraj Garcia MD [place] NOT REPORTED Normal [facility] Comment on above: Performed By: #### E RTPF #### [address] [address] Roller Coaster Designer: Dheeraj Garcia MD Type + Screenon 08-31-2020 Type + Screen Sample Expiration 09/02/2020,2359 Arm Band Number [place] [id number] ABO/Rh(D) O POSITIVE Antibody Screen NEGATIVE Normal [facility] Comment on above: Performed By: #### T YS #### [address] [address] Roller Coaster Designer: Dheeraj Garcia MD XR SHOULDER LEFT (MIN [...] Delmis Adams MD 08/31/20 Final result Normal [facility] EXAMINATION: TWO XRAY VIEWS OF THE LEFT SHOULDER 08/31/2020 8:25 am COMPARISON: None. HISTORY: ORDERING SYSTEM PROVIDED HISTORY: trauma TECHNOLOGIST PROVIDED HISTORY: trauma Reason for Exam: trauma Acuity: Acute Type of Exam: Initial FINDINGS: The bones and joints are unremarkable without definite fracture, dislocation, abnormal soft tissue calcification or bony destructive lesion [facility] [employer] Unremarkable three view left shoulder series [facility] [employer] [place] Incoming Radiant Results From ReVera/Always Prepped - 08/31/2020 8:46 AM EDT EXAMINATION: TWO [...] IMPRESSION: Unremarkable three view left shoulder series [facility] [employer] [place] CT CERVICAL SPINE WO CONTRAS Ton 08-30-2020 No evidence of an acute fracture or traumatic malalignment involving the cervical spine [facility] [employer] [place] EXAMINATION: CT OF THE CERVICAL SPINE WITHOUT [...] There is no prevertebral soft tissue swelling. [place] Incoming Radiant Results From ReVera/ODINs - 08/30/2020 11:01 PM EDT EXAMINATION: CT [...] or traumatic malalignment involving the cervical spine [place] CT CHEST ABDOMEN PELVIS W CO [...] aorta. Bones/Soft Tissues: No acute osseous abnormality. [facility] [place] [place] Incoming Radiant Results From ReVera/Always Prepped - 08/30/2020 11:25 PM EDT EXAMINATION: CT [...] could provide further information as clinically indicated. [place], [place] 1. No acute or traumatic intrathoracic abnormality. 2. No acute or traumatic intra-abdominal abnormality. 3. Dilation of the main pulmonary artery, suggestive of pulmonary artery hypertension. 4. Hepatic steatosis. 5. 1.6 cm left upper pole renal lesion is indeterminate, possibly a cyst. Renal protocol CT or MRI could provide further information as clinically indicated. [place] CT LUMBAR SPINE TRAUMA RECON STRUCTIONon [...] the upper pole of the left kidney. [place] Incoming Radiant Results From ReVera/Always Prepped - 08/30/2020 11:26 PM EDT EXAMINATION: CT [...] or traumatic malalignment involving the lumbar spine. [place] No evidence of an acute fracture or traumatic malalignment involving the lumbar spine. [place] CT THORACIC SPINE TRAUMA REC ONSTRUCTIONon [...] the lung bases. No pneumothorax is noted. [place] Incoming Radiant Results From ReVera/Always Prepped - 08/30/2020 11:29 PM EDT EXAMINATION: CT [...] or traumatic malalignment involving the thoracic spine [place] No evidence of an acute fracture or traumatic malalignment involving the thoracic spine [place] CTA HEAD NECK W CONTRASTon 1 Unremarkable CTA of the neck. 50% stenosis left intracranial ICA, otherwise unremarkable CTA head. [place] Incoming Radiant Results From ReVera/Pacs - 08/30/2020 11:48 PM EDT EXAMINATION: CTA [...] left intracranial ICA, otherwise unremarkable CTA head. [place] EXAMINATION: CTA OF THE HEAD AND [...] fluid collection. The durán-white differentiation is maintained. [place] TYPE AND SCREENon 08-30-2020 ABO/Rh Positive [place], [place] Arm Band Number BE [id number] [facility] [place] Expiration Date 09/02/2020,2357 [place], [place] Trauma Panelon 08-30-2020 Hubert Test NOT REPORTED [place] Anion gap [Moles/Vol] 10 mmol/L 9 - 17 mmol/L [place] aPTT Coag (Bld) [Time] 37.0 s [place] aPTT Coag (Bld) [Time] 24.4 s [place] Comment on above: IV Heparin Therapy Range: 48.6-77.8 Blood Bank Specimen BILL FOR SERVICES PERFORMED [place] Carboxyhemoglobin 2.2 % 0 - 5 % [facility] [employer] [place] Comment on above: Reference Range: Non-Smokers 0-2% Average Smoker 2-4% Heavy Smoker <10% Chloride [Moles/Vol] 106 mmol/L 98 - 10 7 mmol/L [place] CO2 [Moles/Vol] 23 mmol/L 20 - 31 mmol/L [place] Creatinine [Mass/Vol] 0.62 mg/dL 0.5 - 0.9 mg/dL [place] Erythrocyte distribution width (RBC) [Ratio] 14.1 % 11.8 - 14.4 % [place] Ethanol [Mass/Vol] mg/dL <10 mg/dL [place] Ethanol percent <0.010 <0.010 % [place] FIO2 INFORMATION NOT PROVIDED [place] GFR >60 >60 mL/min [place] GFR Non- >60 >60 mL/min [place] GFR/1.73 sq M predicted among non-blacks MDRD (S/P/Bld) [Vol rate/Area] [place] Comment on above: Average GFR for 60-6 9 years old: 85 mL/min/1.73sq m Chronic Kidney Disease: <60 mL/min/1.73sq m Kidney failure: <15 mL/min/1.73sq m eGFR calculated using average adult body mass. Additional eGFR calculator available at: http://www.[employer].com/multiple_crcl_2012.htm GFR/1.73 sq M predicted among non-blacks MDRD (S/P/Bld) [Vol rate/Area] NOT REPORTED [place] Glucose [Mass/Vol] 186 mg/dL High 70 - 99 mg/dL [place] hCG Qual CANCELLED PER ED NEGATIVE [place] HCO3, Venous 23.6 mmol/L Low 24 - 30 mmol/L [place] Hematocrit (Bld) [Volume fraction] 38.2 % 36.3 - 47.1 % [place] Hemoglobin (Bld) [Mass/Vol] 12.3 g/dL 11.9 - 15.1 g/dL [place] INR Coag (PPP) [Relative time] 1.0 {INR} [place] Comment on above: Therapeutic Range: Moderate Anticoagulant Intensity: INR = 2.0-3.0 High Anticoagulant Intensity: INR = 2.5-3.5 Interpretation and review of laboratory results Abnormal [place] MCH (RBC) [Entitic mass] 28.9 pg 25.2 - 33.5 pg [place] MCHC (RBC) [Mass/Vol] 32.2 g/dL 28.4 - 34.8 g/dL [place] MCV (RBC) [Entitic vol] 89.7 fL 82.6 - 102.9 fL [place] Methemoglobin NOT REPORTED 0 - 1.5 % [place] Mode NOT REPORTED [place] Negative Base Excess, Christo 0.8 mmol/L 0 - 2 mmol/L [place] NOTIFICATION NOT REPORTED [place] NOTIFICATION TIME NOT REPORTED [place] O2 Device/Flow/% NOT REPORTED [place] Oxygen saturation in Blood 98.6 % High 60 - 85 % [place] Oxyhemoglobin NOT REPORTED 95 - 98 % [place] pCO2, Christo 40.6 [place] pCO2, Christo, Temp Adj NOT REPORTED [place] Peep/Cpap NOT REPORTED [place] pH, Christo 7.383 [place] pH, Christo, Temp Adj NOT REPORTED [place] Platelet mean volume (Bld) [Entitic vol] 10.6 fL 8.1 - 13.5 fL [place] Platelets (Bld) [#/Vol] 268 10*3/uL [place] pO2, Christo 143.0 High [place] pO2, Christo, Temp Adj NOT REPORTED [place], [place] Positive Base Excess, Christo NOT REPORTED 0 - 2 mmol/L [place] Potassium [Moles/Vol] 3.5 mmol/L Low 3.7 - 5.3 mmol/L [place] PSV NOT REPORTED [place] PT Coag (PPP) [Time] 10.5 s [place], [place] Pt. Position NOT REPORTED [place] RBC (Bld) [#/Vol] 4.26 10*6/uL 3.95 - 5.1 1 m/uL [place] Sample Site NOT REPORTED [place], [place] Set Rate NOT REPORTED [place] Sodium [Moles/Vol] 139 mmol/L 135 - 144 mmol/L [place] Text for Respiratory NOT REPORTED [place] Total Hb NOT REPORTED 12 - 16 g/dl [place] Total Rate NOT REPORTED [place] Urea nitrogen [Mass/Vol] 11 mg/dL 8 - 23 mg/dL [place] VT NOT REPORTED [place] WBC (Bld) [#/Vol] 0.0 10*3/uL 0.0 per 10 0 WBC [place] WBC (Bld) [#/Vol] 8.7 10*3/uL [place] PROGRESSon 03-24-2019 Protein mass conc HNO ID: [id number] Author: Kamilah Jean) Kyle Service: ? Author Type: Physician Pharmacology Associate Type: Progress Notes Filed: 03/25/2019 10:38 AM Note Text: [facility] NOTE NAME: SHEMAR AVILA NO.: [id number] DATE OF SERVICE: 03/24/2019 [facility] DATE OF : 1955 CHIEF COMPLAINT: Skilled followup visit for discharge. Also complains of a cyst on her back. SUBJECTIVE FINDINGS: The patient was seen in her room today at [facility]. She is tentatively scheduled for discharge [...] above. MEDICATIONS: Medications were reviewed in the long-term records. OARRS report was run today and [...] this patient. DICTATED BY: Kamilah Wright PA-C PG/Acrajat JOB# [id number] cc:[facility] PROGRESSon 03-22-2019 Protein mass conc HNO ID: [id number] Author: Kamilah Wright (Pa) Service: ? Author Type: Physician Pharmacology Associate Type: Progress Notes Filed: 03/23/2019 11:37 AM Note Text: [facility] NOTE NAME: SHEMAR AVILA NO.: [id number] DATE OF SERVICE: 03/22/2019 [facility] DATE OF : 1955 CHIEF COMPLAINT: Skilled followup visit for stroke; today complaining of heartburn. SUBJECTIVE FINDINGS: The patient was seen in the therapy department at [facility]. She reports that overall she is [...] SYSTEMS: See above. MEDICATIONS: Reviewed in the long-term record. CODE STATUS: Full code. PHYSICAL EXAM: [...] DICTATED BY: Kamilah Wright PA-C PG/Niharika JOB# [id number] cc:[facility] PROGRESSon 03-19-2019 Protein mass conc HNO ID: [id number] Author: Kamilah Wright (Pa) Service: ? Author Type: Physician Pharmacology Associate Type: Progress Notes Filed: 03/22/2019 12:17 PM Note Text: [facility] NOTE NAME: SHEMAR AVILA NO.: [id number] DATE OF SERVICE: 03/19/2019 [facility] DATE OF : 1955 CHIEF COMPLAINT: Follow up for stroke and weakness. SUBJECTIVE FINDINGS: The patient was seen in her room at [facility]. She is complaining of a headache [...] SYSTEMS: See above. MEDICATIONS: Reviewed in the long-term record. CODE STATUS: Full code. PHYSICAL EXAM: [...] DICTATED BY: Kamilah Wright PA-C PG/Niharika JOB# [id number] cc:Viviana Mota [facility] PROGRESSon 03-17-2019 Protein mass conc HNO ID: [id number] Author: Kamilah Wright (Pa) Service: ? Author Type: Physician Pharmacology Associate Type: Progress Notes Filed: 03/18/2019 10:28 AM Note Text: [facility] NOTE NAME: SHEMAR AVILA NO.: [id number] DATE OF SERVICE: 03/17/2019 Viviana Mota DATE OF : 1955 CHIEF COMPLAINT: Follow up for stroke and weakness. SUBJECTIVE FINDINGS: The patient was seen in the therapy department at [facility]. She is doing very well with [...] SYSTEMS: See above. MEDICATIONS: Reviewed in the long-term record. CODE STATUS: Full code. PHYSICAL EXAM: [...] her . DICTATED BY: Kamilah Wright PA-C PG/Aciwonas JOB# [id number] cc:[facility] PROGRESSon 03-15-2019 Protein mass conc HNO ID: [id number] Author: Kyra Butler Service: ? Author Type: Physician Type: Progress Notes Filed: 03/18/2019 5:07 PM Note Text: [facility] NOTE NAME: YEYO AVILA NO.: [id number] DATE OF SERVICE: 03/15/2019 Viviana Mota DATE OF : 1955 New Patient History and Physical HISTORY OF PRESENT ILLNESS: The patient is a 63-year-old female was admitted to us from [facility] in [place] with the diagnoses of complicated headache syndrome [...] was negative. She was then transferred to [facility] where repeat CT scan along with [...] therapy. DICTATED BY: MD NELIDA Larose/Niharika JOB# [id number] cc:Viviana Mota [facility] Vital Signs Date Time Vital Sign Value Performing Clinician Facility 07-13-2023 11:32-0400 Body temperature 97.88 [degF] [facility] 07-13-2023 11:32-0400 Diastolic blood pressure 85 mm[Hg] [facility] 07-13-2023 11:32-0400 Heart rate 76 /min [facility] 07-13-2023 11:32-0400 Respiratory rate 18 /min [facility] 07-13-2023 11:32-0400 SaO2% (BldA) [Mass fraction] 97 % [facility] 07-13-2023 11:32-0400 Systolic blood pressure 147 mm[Hg] [facility] 02-24-2023 13:08-0400 Promise to Return Ronobir FELICIA [facility] 02-24-2023 12:00-0400 Hourly Rounding Ronobir FELICIA [facility] 02-24-2023 12:00-0400 Promise to Return Ronobir FELICIA [facility] 02-24-2023 11:56-0400 Heart rate 62 /min Ronobir FELICIA [facility] 02-24-2023 11:56-0400 SaO2% (BldA) [Mass fraction] 97 % Ronobir FELICIA [facility] 02-24-2023 11:54-0400 Diastolic blood pressure 67 mm[Hg] Ronobir FELICIA [facility] 02-24-2023 11:54-0400 Mean blood pressure 88 mm[Hg] Ronobir FELICIA [facility] 02-24-2023 11:54-0400 Systolic blood pressure 130 mm[Hg] Ronobir FELICIA [facility] 02-24-2023 11:54-0400 Body temperature 97.88 [degF] Ronobir FELICIA [facility] 02-24-2023 11:11-0400 Hourly Rounding Ronobir FELICIA [facility] 02-24-2023 11:11-0400 Promise to Return Ronobir FELICIA [facility] 02-24-2023 11:00-0400 Hourly Rounding Ronobir FELICIA [facility] 02-24-2023 07:50-0400 SaO2% (BldA) [Mass fraction] 98 % Ronobir FELICIA [facility] 02-24-2023 07:43-0400 Heart rate 61 /min Ronobir FELICIA [facility] 02-24-2023 07:43-0400 SaO2% (BldA) [Mass fraction] 98 % Ronobir FELICIA [facility] 02-24-2023 07:41-0400 Body temperature 98.06 [degF] Ronobir FELICIA [facility] 02-24-2023 07:41-0400 Diastolic blood pressure 74 mm[Hg] Ronobir FELICIA [facility] 02-24-2023 07:41-0400 Mean blood pressure 92 mm[Hg] Ronobir FELICIA [facility] 02-24-2023 07:41-0400 Systolic blood pressure 128 mm[Hg] Ronobir FELICIA [facility] 02-24-2023 03:47-0400 Blood Pressure Location Ronobir FELICIA [facility] 02-24-2023 03:47-0400 Body temperature 97.52 [degF] Ronobir FELICIA [facility] 02-24-2023 03:47-0400 Diastolic blood pressure 70 mm[Hg] Ronobir FELICIA [facility] 02-24-2023 03:47-0400 Heart rate 57 /min Ronobir FELICIA [facility] 02-24-2023 03:47-0400 Mean blood pressure 87 mm[Hg] Ronobir FELICIA [facility] 02-24-2023 03:47-0400 Respiratory rate 17 /min Ronobir FELICIA [facility] 02-24-2023 03:47-0400 Systolic blood pressure 120 mm[Hg] Ronobir FELICIA [facility] 02-24-2023 03:06-0400 Mean blood pressure 77 mm[Hg] Ronobir FELICIA [facility] 02-24-2023 03:06-0400 Respiratory rate 16 /min Ronobir FELICIA [facility] 02-24-2023 02:49-0400 Respiratory rate 16 /min Ronobir FELICIA [facility] 02-24-2023 02:04-0400 Body temperature 96.8 [degF] Ronobir FELICIA [facility] 02-24-2023 02:04-0400 Mean blood pressure 68 mm[Hg] Ronobir FELICIA [facility] 02-24-2023 01:09-0400 Body temperature 96.62 [degF] Ronobir FELICIA [facility] 02-24-2023 00:21-0400 Heart rate 58 /min Guidoobir FELICIA [facility] 02-24-2023 00:06-0400 gluc 139 mg/dL Ronobir FELICIA [facility] 02-24-2023 00:06-0400 Heart rate 61 /min Guidoobir FELICIA [facility] 02-18-2022 13:50-0400 Body height 165.1 cm MD Shaikh Hernandez Work Phone: [facility] 02-18-2022 13:50-0400 Body weight 104.32 kg MD Shaikh Hernandez Work Phone: [facility] 09-01-2020 16:00-0400 BP Diastolic 85 mm[Hg] [facility] [place] 09-01-2020 16:00-0400 BP Systolic 158 mm[Hg] [facility] [place] 09-01-2020 14:12-0400 Pulse (Heart Rate) 72 /min [facility] [place], [place] 09-01-2020 13:30-0400 Respiratory rate NOT REPORTED [facility] [place] [place] 09-01-2020 12:27-0400 Body Temperature 97.7 [degF] [facility], [place] 09-01-2020 12:27-0400 Pulse Oximetry 94 % [place], [place] 09-01-2020 07:15-0400 Respiratory rate NOT REPORTED HERMELINDO ADKINS [facility] Comment on above: Performed By: #### ERTPF #### [facility] [address] [place] [address] Roller Coaster Designer: Dheeraj Garcia MD 09-01-2020 04:45-0400 Respiratory Rate 15 /min [facility] [place] 08-31-2020 18:45-0400 BMI (Body Mass Index) 38.72 kg/m2 [facility] [place] [place] 08-31-2020 18:45-0400 Body weight 105.55 kg [facility] [place] [facility] , [place] 08-31-2020 18:45-0400 Height 165.1 cm [facility] [place] [facility] [place] 08-31-2020 00:34-0400 Respiratory rate NOT REPORTED HERMELINDO ADKINS [facility] Comment on above: Performed By: #### ERTPF #### [employer] [address] [place] [address] Roller Coaster Designer: Dheeraj Garcia MD 08-30-2020 23:08-0400 Respiratory rate NOT REPORTED [facility], [place] Encounters Encounter Date Encounter Type Care Provider Facility Start: 01-14-2024 End: 01-14-2024 ambulatory AB [facility] Start: 12-30-2023 End: 12-31-2023 ambulatory Arturo DOLAN Facility:[facility] Start: 12-30-2023 End: 12-30-2023 Patient encounter procedure Arturo DOLAN [facility] Start: 12-18-2023 End: 12-19-2023 ambulatory Arturo DOLAN Facility:[id number] Start: 11-13-2023 End: 11-14-2023 ambulatory Arturo DOLAN Facility:CD:[id number] Start: 11-12-2023 End: 11-13-2023 ambulatory Arturo DOLAN Facility:YOHANA Nguyen Start: 07-13-2023 End: 07-13-2023 Emergency department patient visit Zaki Muñoz Facility:[facility] Start: 07-13-2023 End: 07-13-2023 [facility] Start: 07-08-2023 End: 07-08-2023 ambulatory ALEXIA CLINE [facility] Start: 04-25-2023 End: 04-25-2023 ambulatory [facility] Start: 04-15-2023 End: 04-15-[address] ROBIN PONCE . Facility:[facility] Start: 04-01-2023 End: 04-01-[address] DANK JOHNSON Facility:[facility] Start: 04-01-2023 End: 04-02-[address] DOCTOR CASTELLON Facility:[facility] Start: 03-24-2023 End: 03-25-[address] DOCTOR CASTELLON Facility:[facility] Start: 03-10-2023 End: 03-10-2023 [facility] Start: 02-24-2023 End: 02-24-2023 ambulatory Leann GUNTER Facility:[facility] Start: 02-24-2023 End: 02-24-2023 Observation Sunshine DUARTE [facility] Start: 02-14-2023 End: 02-14-[address] ROBIN PONCE . Facility:[facility] Start: 10-05-2022 End: 10-05-[address] ZELALEM STACY Facility:[facility] Start: 09-23-2022 ambulatory SHAIKH Enio Farley y:[facility] Start: 02-18-2022 End: 02-18-2022 Patient encounter procedure MD Shaikh Hernandez Work Phone: [facility] [place] Start: 03-21-2021 End: 03-22-2021 ambulatory REBEKA PARDO Facility:[facility] Start: 08-31-2020 End: 09-01-2020 Evaluation and management of inpatient HERMELINDO ADKINS [facility] Start: 08-30-2020 End: 09-01-2020 Evaluation and [...] Phone: Start: 09-01-2020 Gonadotropin chorionic qualitative Hermelindo Janine Adkins Work Phone: Start: 09-01-2020 Hemoglobin glycosylated a1c Hermelindo Mehta Lucille Work Phone: Start: 09-01-2020 Lipid panel Hermelindo Janine Adkins Work Phone: Start: 09-01-2020 TRAUMA PANEL Hermelindo Janine Adkins Work Phone: Start: 08-31-2020 CATHETER REMOVAL [...] CHEMICAL VTE PROPHYLAXIS HERMELINDO ADKINS Start: 08-31-2020 DESSERT CUP MACHINE FEEDER EVAL AND TREAT HERMELINDO ADKINS Start: 08-31-2020 [...] CT LUMBAR SPINE TRAUMA RECONSTRUCTION Pati B Diop Work Phone: Start: 08-30-2020 CT THORACIC SPINE [...] Start: 09-01-2021 Creatinine measurement Creatinine mo [place]itoring [place] Start: 09-01-2021 HbA1c (Bld) [Mass fraction] A1C test (Diabetic or Prediabetic) [place] Start: 09-01-2021 Lipid panel Lipid screen [place] Start: 09-01-2021 Potassium monitoring Potassium monit [place]ing [place] Start: 08-31-2020 Annual Wellness Visi t (AWV) Annual Wellness Visit (AWV) [place] Start: 07-18-2020 Influenza vaccination Flu vaccine (# 1) [place] Start: 2007 Screening for malign ant neoplasm of breast Breast cancer screen [place] Start: 2007 Screening for malign ant neoplasm of colon Colon cancer screen colonoscopy [place] Start: 2007 Shingles Vaccine (1 of 2) Shingles V accine (1 of 2) [place] Start: 1978 Screening for malign ant neoplasm of cervix Cervical cancer screen [place] Start: 1976 DTaP/Tdap/Td vaccine (1 - Tdap) DTaP/Tdap/Td vaccine (1 - Tdap) [place] Start: 1975 Diabetic microalbumi betzy test Diabetic microalbuminuria test [place] Start: 1972 HIV screening HIV screen [place] Start: 1967 Diabetic foot examination Diabetic f [place]ot exam [place] Start: 1967 Diabetic retinal exam Diabetic retin al exam [place] Start: 1957 Hepatitis C screening Hepatitis C sc reen [place] Oxygen therapy [[facility] Data Set] Initiate Oxygen Therapy Protocol Respiratory Care Routine Daily until discontinued starting 08/31/2020 [place] Comment on above: Daily until disconti nued starting 08/31/2020 End: 08-31-2020 Speech and language therapy regime [place] Comment on above: One Time for 1 Occur rences starting 08/31/2020 until 08/31/2020 Immunizations Immunization Date Immunization Notes Care Provider Ronny pathak 08-17-2021 influenza virus vaccine, unspecified formulation Sunshine DUARTE [facility] 02-15-2021 SARS-CoV-2 (COVID-19 ) Ad26 vaccine, recombinant Sunshine DUARTE [facility] 01-15-2021 SARS-CoV-2 (COVID-19 ) Ad26 vaccine, recombinant Sunshine DUARTE [facility] 09-19-2017 pneumococcal conjuga te vaccine, 13 valent Arturo DOLAN [facility] Wendy Payers Date Payer Category Payer Medicare [id number] [id number] [id number] 1957 Self-pay [id number] 1955 Unknown [id number] 2.16.8 [id number] 1955 Unknown [id number] 2.16.8 [id number] 1955 Unknown [id number] 2.16.84 [id number] 1955 Unknown [id number] 2.16.84 [id number] 1955 Unknown [id number] 2.16.84 [id number] 1955 Unknown [id number] 2.16.84 [id number] 1955 Unknown [id number] 2.16.84 [id number] 1955 Unknown [id number] 2.16.84 [id number] 1955 Unknown [id number] 2.16.84 [id number] 1957 Unknown [id number] 2.16.8 [id number] 1957 Unknown [id number] 2.16.8 [id number] 1957 Unknown [id number] 2.16.8 [id number] 1957 Unknown [id number] 2.16.8 [id number] 1955 Unknown [id number] 2.16.8 [id number] 1955 Unknown [id number] 2.16.8 [id number] Self-pay Self Pay [id number] Social History Date Type Detail Facility Tobacco smoking stat [facility] Unknown if ever smoked [employer] [place] Sex [facility]igned [facility] [place] Start: 03-19-2021 Tobacco smoking stat [facility] Ex-smoker (finding) [facility] Start: 1955 Sex Assigned At Female [facility] Start: 02-24-2023 End: 11-12-2023 Tobacco smoking status Heavy tobacco smoker (finding) [facility] Comment on above: 1 pack a day Sex Assigned At Female [facility] Tobacco smoking status Never [facility] Wendy Comment on above: 1 pack a day Functional Status Date Assessment Result Facility 12-30-2023 Functional Status N/A [facility] 07-13-2023 Functional Status N/A [facility] 02-24-2023 Functional Status No [facility] 02-24-2023 Functional Status [facility] Clinical Notes 02-24-2023 to 01-14-2024 Note Date & Type Note Facility 01-14-2024 Note [facility] Cardiology Clinic Note Chief Complaint: Patient here for 6 mo follow up hypertension, chronic systolic heart failure, and CAD. Had labs 2 weeks ago. C/o right sided chest pain. Says she's fallen several times due to LE weakness and lightheadedness. She is diaphoretic with the chest pain. Feels palpitations quite often . HPI: Yeyo S Dendinger is a 68 y.o. female History of hypertension, dyslipidemia, coronary artery disease s/p stent, thoracic aortic repair, diabetes mellitus, depression, nicotine use and migraines The patient describes epigastric discomfort worsened exertional. She also has difficulty swallowing. He has a known history of gastroesophageal reflux disease. No angina. Shortness of breath is stable. 3 pillow orthopnea which is unchanged. No leg swelling. She has intermittent palpitations that last for seconds to a minute or 2. No syncope. She has a history of type 2 diabetes and is on insulin. Cardiology ROS: Review of Systems Constitutional: Positive for diaphoresis. HENT: Positive for hearing loss. Cardiovascular: Positive for chest pain, dyspnea on exertion and palpitations. Musculoskeletal: Positive for falls. Neurological: Positive for dizziness and light-headedness. All other systems reviewed and are negative. Past Medical History She has no past medical history on file. Surgical History She has no past surgical history on file. Social History She reports that she has been smoking cigarettes. She has never used smokeless tobacco. No history on file for alcohol use and drug use. Family History No family history on file. Allergies Iodinated contrast media, Aspirin, Atorvastatin, Cat/feline products, Delmar, Topiramate, Blue dye, Iodine, and Lisinopril Medications Current Outpatient Medications: amLODIPine (Norvasc) 5 [...] glimepiride 4 mg tablet, Disp: , Rfl: hydrOXYzine pamoate (Vistaril) 25 mg capsule, Take 25 mg by mouth at bedtime., Disp: , Rfl: irbesartan (Avapro) 150 mg tablet, Take by mouth in the morning., Disp: , Rfl: isosorbide mononitrate ER (Imdur) 60 mg 24 hr tablet, Take 1 tablet (60 mg) by mouth in the morning. Do not crush or chew., Disp: 90 tablet, Rfl: 3 metoclopramide (Reglan) 5 mg tablet, , Disp: , Rfl: nitroglycerin (Nitrostat) 0.4 mg SL tablet, nitroglycerin 0.4 mg sublingual tablet, Disp: 30 tablet, Rfl: 0 NovoLIN 70-30 FlexPen U-100 100 unit/mL (70-30) injection, , Disp: , Rfl: pantoprazole (ProtoNix) 40 mg EC tablet, Take 1 tablet by mouth in the morning., Disp: , Rfl: simvastatin (Zocor) 40 mg tablet, Take 40 mg by mouth at bedtime., Disp: , Rfl: Last Recorded Vitals BP 142/72 (BP Location: Right arm, Patient Position: Sitting) Pulse 75 Ht 1.651 m (5' 5 ) Wt 93.4 kg (206 lb) SpO2 97% BMI 34.28 kg/m??? Physical Examination: GENERAL: alert and oriented x3, well developed, in no acute distress. HEAD: atraumatic, normocephalic. EYES: BRANDI, EOMI. NECK: trachea midline, no JVD present, no carotid bruits present. CARDIAC: S1, S2 present. RRR. No murmur, rubs, or gallops. RESPIRATORY: CTAB, no increased effort of breathing, no rales, rhonchi, or wheezing. ABDOMEN: soft, nontender, nondistended. EXTREMITIES: no lower extremity edema, peripheral pulses are 2+ bilaterally. No rash/skin discoloration present. NEURO: strength/sensation equal and symmetric in bilateral upper and lower extremities. PSYCH: appropriate mood, affect, and judgement. Investigations: Echocardiogram : Conclusion: 1. Mild left ventricular hypertrophy 2. Normal left ventricular systolic function with EF of 60% 3. Normal right ventricular size and systolic function 4. Mild mitral regurgitation 5. Mild to moderate tricuspid regurgitation 6. Normal right-sided pressures 7. Aortic root is normal in appearance and diameter Carotid ultrasound 05/2023: 0 to 49% flow stenosis within the right and left carotid arteries 03/2033 abnormal resting EKG: No ischemia noted post Lexiscan. Normal myocardial perfusion stress test Assessment: Coronary artery disease, history of prior PCI/stent placement stents of lad and d1 in march 2014 In may 2014 patent stents HFrEF - recovered Mild mitral and tricuspid regurgitation Essential hypertension Hemiplegic migraine Atypical chest pain with a nonischemic stress test in 2022 Aneurysm of thoracic aorta - repaired 2010 hemishield graft (more content not included)... [facility] 12-30-2023 Note [id number] [facility] 12-30-2023 Hospital Discharge instructions Patient Education 12/30/2023 11:56:19 EU - [...] With:Arturo DOLAN Address: [facility] [address] [place] [address]- Business (1) When:03/29/2024 11:56:00 Comments:With a stone metabolic workup [facility] 12-03-2023 Note RCRI=3 points Class IV Risk 15.0 % 30-day risk of , [place], or cardiac arrest PMH- CAD s/p Stent, [...] you Alexia Cline NP Division of Cardiology, [facility]- [phone] Pager- [phone] Email- [email or web address] 07-13-2023 Hospital Discharge instructions Patient Education 07/13/2023 12:19:06 Shoulder Pain [...] to strengthen the arm. General instructions Take bora-cmu-rhuyolg and prescription medicines only as told by [...] provider. Document Revised: 07/19/2022 Document Reviewed: 07/19/2022 [employer] Patient Education 2022 [employer]. 07/13/2023 12:19:06 Muscle Strain Muscle Strain A [...] is not too tight. General instructions Take equz-xfu-okrfymt and prescription medicines only as told by [...] provider. Document Revised: 01/21/2022 Document Reviewed: 01/21/2022 [employer] Patient Education 2022 [employer]. Follow Up Care 07/13/2023 11:23:52 With:Robin Ponce Address: [address] [place] [address] Business (1) When:07/16/2023 12:02:34 [facility] 07-13-2023 Evaluation + Plan note Extrac sherita from: Title:ED Note Author:Mathew Montana PA-C te:07/13/23 Shoulder pain (M25.519: Pain in unspecified shoulder) Ordered: acetaminophen-oxycodone, 1 tab(s), Oral, q6hr as needed for pain for 3 day(s), 15 tab(s), Refill(s) 0, [id number], 165, cm, 07/13/23 11:34:00 EDT, Height/Length Dosing, 95.5, kg, 07/13/23 11:34:00 EDT, Weight Dosing [facility]08-22-2023 NoteWill increase imdur to 60 mg and d/w pt that if migraines worsen she can reduce back to 30 mg Recent stress test was [facility]Un[facility] Note Recommended pt to see a migraine specialist in [place] or [place] [facility]-2023 NoteCoronary artery disease is stable Continue GDMT- Coreg, simvastatin, imdur continue risk factor modifications- heart healthy diet, regular exercise as tolerated and continue all medications.[facility] 07-08-2023 NoteNYHC II- currently LVEF normal 60%- recovered Mild MR and TV regurg Normal rt sided pressure Continue current med regime. Coreg, irbesartan, simvastatin, [facility]ur[facility]-08-2023 NoteHypertension is well controlled, Continue all current medsUniversity of [facility]-22-2023 NoteUTP CARDIOLOGY PROGRESS NOTE HPI: Yeyo Avila [...] States pain in groin Cat/Feline Products Hives Delmar Hives Topiramate Hives and Other Blue Dye [...] mononitrate ER (I (more content not included)... [facility]06-09-2023 NotePatient here for follow up Holter monitor and stress test. Also had labs a few weeks ago. Review of Systems Cardiovascular: Positive for chest pain, dyspnea on exertion and near-syncope (with bending over). Neurological: Positive for dizziness and light-headedness. All other systems reviewed and are negative.[facility] 04-25-2023 NoteCardiology Clinic Note Subjective Yeyo [...] States pain in groin Cat/Feline Products Hives Delmar Hives Topiramate Hives and Other Blue Dye [...] mg sublingual tablet, Dis (more content not included)...[facility] 03-10-2023 NoteCardiology Clinic Note Subjective Yeyo [...] cystic kidney disease Aneurysm of thoracic aorta ([facility]/HCC) Benign essential hypertension Hypertension Cerebral infarction ([facility]/HCC) Chronic obstructive pulmonary disease, unspecified ([facility]/H[facility]) Chronic systolic heart failure ([facility]) Complicated migraine Migraine, unspecified, not intractable, with status migrainosus Diabetes mellitus due to underlying condition without complications ([facility]) Coronary atherosclerosis Diabetes ([facility]) Difficulty in walking, not elsewhere classified Disorder of urinary tract Dyspnea Zaina hematuria Hemiplegia and hemiparesis following cerebral infarction affecting left non-dominant side ([facility]) Head injury GERD (gastroesophageal reflux disease) NEGRITA (generalized anxiety disorder) Anxiety disorder, unspecified Hypertensive urgency Hyperlipidemia, unspecified History of stroke Hemiplegic migraine Major depressive disorder, recurrent, unspecified ([facility]) MDD (major depressive disorder), recurrent episode, moderate ([facility]) Muscle weakness (generalized) Obesity, unspecified Primary malignant neoplasm of bladder ([facility]) Palpitations Old myocardial infarction Severe episode of recurrent major depressive disorder, without psychotic features ([facility]) Stroke-like symptoms Status post percutaneous transluminal [...] States pain in groin Cat/Feline Products Hives Delmar Hives Topiramate Hives and Other Blue Dye [...] systolic function. No significant (more content not included)...[facility] 02-24-2023 NoteFisher Holy Cross HospitalComment on above:Result Comment: Electronically Signed By: PERLA PRADO, Leann\.br\Date and Time Signed: 02/24/23 12:35 [id number] Evaluation + Plan noteExtracted from: Title:Discharge Note [...] With When Contact Information Robin Ponce [address] [place] [address]- Business (1) Additional Instructions: Office is closed for lunch between Noon and 1 p.m. Please contact office for follow up appointment. Thank you! SHAIKH MARY Within 5 to [address] [place] [address] Business (1) Additional Instructions: Not a patient. Syncope, Lwkr-op-Houi Extracted from: Title:APSO Note Author:Leann GUNTER MD [...] heart monitor. Check orthostatic vital signs. Ordered: [facility] Hospital Care/Day Moderate 35 Minutes [id number] 2. RAMA (acute kidney injury) (N17.9: Acute kidney failure, unspecified) Acute kidney injury secondary to ATN from dehydration and antihypertensives. Resolved. Treated with IV fluid. Ordered: [facility] Hospital Care/Day Moderate 35 Minutes 98829 3. Hypokalemia (E87.6: Hypokalemia) Secondary to poor oral intake. Potassium level improving to 3.4. We will give patient additional potassium chloride. Ordered: potassium chloride, 40 mEq = 2 tab(s), Tab-ER, Oral, Once, Stop date 02/24/23 10:00:00 EDT, Routine, Start date 02/24/23 10:00:00 EDT, 02/24/23 9:46:00 EDT [facility] Hospital Care/Day Moderate 35 Minutes 97611 4. Diabetes mellitus (E11.9: Type 2 diabetes mellitus without complications) Continue sliding scale insulin. Ordered: [facility] Hospital Care/Day Moderate 35 Minutes 72473 5. High cholesterol (E78.00: Pure hypercholesterolemia, unspecified) On Lipitor at home. Ordered: [facility] Care/Day Moderate 35 Minutes 39419 6. Hypertension (I10: Essential (primary) hypertension) Blood pressure on the low side of normal. 7. CAD (coronary artery disease) (I25.10: Atherosclerotic heart disease of [place] coronary artery without angina pectoris) Continue on aspirin, Plavix. 8. Aortic aneurysm (I71.9: Aortic aneurysm of unspecified site, without rupture) Status post surgery. 9. Obese (E66.9: Obesity, unspecified) Recommend therapeutic lifestyle modification changes. 10. On deep vein thrombosis (DVT) prophylaxis (Z79.899: Other residential (current) drug therapy) Heparin. Disposition: Home soon pending physical therapy evaluation. I discussed the diagnosis and plan of care with the patient at the bedside. Moderate level of MDM based on addressing above issues. This documentation was transcribed using voice recognition software. Several attempts were made to ensure accuracy. However inadvertent computerized gold tooler errors may be present. Leann Gunter. Hospitalist. [...] deep vein thrombosis (DVT) prophylaxis (Z79.899: Other residential (current) drug therapy) SCD, heparin Orders: acetaminophen, [...] XR Spine Lumbosacral 2 or 3 Views [facility]04-10-2023 Hospital Discharge instructions Patient Education 02/24/2023 11:49:54 Syncope, Kwic-au-Rknv Syncope Syncope is when you pass out [...] pee (urine) pale yellow. General instructions Take jest-iot-yqgnqxm and prescription medicines only as told by [...] 04/21/2009 Document Revised: 12/16/2018 Document Reviewed: 12/16/2018 [employer] Patient Education 2020 [employer]. Follow Up Care 02/24/2023 00:01:37 With:Robin Ponce Address: [address] [place] [address]- Business (1) When: Unknown Comments:Office is closed for lunch between Noon and 1 p.m. Please contact office for follow up appointment.Thank you! With:SHAIKH MARY Address: [address] [place] [address] Business (1) When:5 to 7 days Comments:Not a patient. [facility]04-10-2023 NoteJoint Township District Memorial HospitalComment on above:Result Comment: Electronically Signed By: Sunshine DUARTE DO\.diane\Date and Time Signed: 02/24/23 03:41 EDTEvaluation noteNo assessment information availablePromedica Toledo Hospital Work Phone: Hospital course Narrative No data available for this section [facility] No data available for this section [facility] Summary Purpose Family History No Family History Records FoundNo Family History Records FoundNo Family History Records FoundNo Family History Records FoundNo Family History Records Found No data available for this section No Family History Records FoundNo Family History [...] Discharging Nurse: Zaina QUEZADA Discharging Hospital Unit/Room#: 0234/0234 Discharging Unit Emergency Contact: Extended Emergency Contact [...] Assisted Dressing Independent Toileting Assisted Feeding Independent School Year Nanny Independent Med Delivery whole Wound Care Documentation [...] Agency Name: [facility] FAX [address] [place] [address] Address: Phone: Fax: Dialysis Facility (if applicable) Name: Address: Dialysis Schedule: Phone: Fax: Photogrammetric Engineer/Consultant In Ergonomics And Safety signature: EDT PHYSICIAN SECTION Prognosis: Good Condition at Discharge: Stable Rehab Potential (if transferring to Rehab): {Prognosis:[id number]} Recommended Labs or Other Treatments After Discharge: [...] called to the trauma nurse line at [phone] and please leave a message. Trauma is a life-threatening condition. Your doctor will want to closely monitor you. Be sure to goto all of your appointments. * Attachments The following attachments cannot be sent through Care Everywhere. * Fall Prevention (Icelandic) * Falls: Get Up Safely Instruction (Icelandic) * Vasovagal Syncope (Icelandic) documented in this encounter History of Present [...] 4 wheeled walker, Cane, Quad cane, Crutches, Claims Technician, Sock aid(pt reported no use of DME at baseline) ADL Assistance: Independent Homemaking Assistance: Independent Homemaking Responsibilities: Yes Meal Prep Responsibility: Primary Laundry Responsibility: Primary Cleaning Responsibility: Primary Ambulation Assistance: Independent Transfer Assistance: Independent Active Sulphate Tester: Yes Mode of Transportation: Car Occupation: Retired [...] L LE was going to [facility] functional mobility. pt with no LOB ADL [...] L LE. pt unable to identify when sql report writer was touching L UE (on elbow [...] Plan Times per week: 3-5x/wk AM-PAC Score AM-[facility] Inpatient Daily Activity Raw Score: 16 (09/01/201440) AM-PAC Inpatient ADL T-Scale Score : 35.96 (09/01/201440) ADL Inpatient [facility] 0-100% Score: 53.32 (09/01/201440) ADL Inpatient [facility] G-Code Modifier : CK (09/01/201440) Goals Short [...] activity in order to increase coordination and virology teacher strength to L hand Short term goal 6: dem SBA during functional transfers/functional mobility with LRD, as needed Therapy Time Individual Concurrent Group Co-treatment Time In 1316 Time Out 1404 Minutes 48 Variance: 40 Debi Marques OTR/L * Taya Bergeron, DESSERT CUP MACHINE FEEDER - 09/01/2020 11:39 AM EDT Speech Language Pathology Facility/Department: [address] ORTHO/MED SURG Initial Speech/Language/Cognitive Assessment NAME: [...] the bathtub. +LOC, on Plavix. Taken to [place] where a stroke alert was initiated. CT head at 6pm today at [place] did not show intracranial bleed. Transferred to [facility] for trauma and neurology work-up. Upon arrival, Pt without neurological deficit, GCS 15, c/o REYNA. Pt deemed hemodynamically stable and was sent to CT. Pain: Pain Assessment Pain Assessment: Faces Pain Level: 0 Assessment: Pt presents with mild-moderate cognitive deficits characterized by difficulty with immediate and short-term memory, verbal reasoning skills, and word associations. Pt. STEBBINS, which may haveaffected results of evaluation. Multiple repetitions provided throughout evaluation. Pt. Presents with no dysarthria, no O/M deficits at this time. ST to follow up and provide treatment to address noted deficits. Education provided. Recommendations: Requires DESSERT CUP MACHINE FEEDER Intervention: Yes Duration/Frequency of Treatment: 3-5X/week D/C [...] 1126 Minutes 12 Completed by: Debi Andrade Head Start Director Clinician Cosigned By: Taya Bergeron M.A.CCC/DESSERT CUP MACHINE FEEDER 09/01/2020 11:40 AM * Caleb Jefferson MD [...] Out: 1000 [Urine:1000] LAB: CBC: Recent Labs 08/30/20223309/01/2015 09/01/20 0529 WBC 8.7 DUPLICATE ORDER 9.4 [...] MD 09/01/2020 4:00 PM * Nader Petit, SEPARATOR INSERTER - 09/01/2020 10:02 AM EDT Physical Therapy Facility/Department: [address] ORTHO/MED SURG Daily Treatment Note NAME: [...] Safe use of RW Barriers to Learning: STEBBINS REQUIRES PT FOLLOW UP: Yes Activity Tolerance [...] 44 Timed Code Treatment Minutes: 40 Minutes SEPARATOR INSERTER returned to pt's room to have her attempt stair management, to return home safely Individual Individual Time In 1140 Time Out 1205 Minutes 25 Timed Code Treatment Minutes: 9 Minutes (a doctor interrupted PT, to assess the pt) Nader Petit, SEPARATOR INSERTER * Debi Marques OT - 09/01/2020 8:34 [...] 08/31/2020 3:09 PM EDT Physical Therapy Facility/Department: [facility] ED Initial Assessment NAME: Yeyo [...] Ambulation Assistance: Independent Transfer Assistance: Independent Active Sulphate Tester: Yes Mode of Transportation: Car Occupation: Retired [...] section and content) DATE CREATED AUTHOR 04/06/2019 [facility] DATE CREATED AUTHOR AUTHOR'S ORGANIZ ATION 09/12/2020 [facility] DATE CREATED AUTHOR AUTHOR'S ORGANIZ ATION 03/28/2021 [facility] DATE CREATED AUTHOR AUTHOR'S ORGANIZ ATION 03/03/2022 [facility] DATE CREATED AUTHOR AUTHOR'S ORGANIZ ATION 04/25/2023 [facility] DATE CREATED AUTHOR AUTHOR'S ORGANIZ ATION 01/13/2024 [facility] DATE CREATED AUTHOR AUTHOR'S ORGANIZ ATION 02/16/2024 [facility] Reason for Visit (unrecogniz ed section and content) Reason Comments Fall Trauma Status Reason Specialty Diagnoses / Procedures Referre d By Contact Referred To Contact Diagnoses Syncope and collapse Procedures Syncope and collapse Hermelindo Adkins MD [address] [address], [address] [place] [address] [facility] Care Teams (unrecognized sec tion and [...] BE BASED ON THE PRIMARY CLINICAL RECORDS. [facility] [employer] [facility]. provides no warranty or guarantee of the accuracy or completeness of information in this document.
== END 2024-02-18 10:25 | disposition home or self-care (01) ==
LOC: CARD 10:25
PROVIDERS: PCP Family Medicine; Visit Provider Family Medicine
DX: I67.89 Other cerebrovascular disease (principal)
CPT/HCPCS: 93246

== ENCOUNTER 2024-03-10 08:16 | Outpatient (OUT) | payer MEDICARE, SELFPAY ==
--- NOTE | 2024-03-10 08:27 | XR_ITS ---
The [address] [address] Patient Name: MARTHA AVILA MRN: [id number] date: 1955 Sex: F Assigned Patient Location: [facility] Current Patient Location: [facility] Accession/Order Number: [id number] Exam Date: 03/10/2024 08:32 Report Date: 03/10/2024 09:11 At the request of: ROBIN PONCE Procedure: XR DEXA axial skeleton EXAMINATION: XR DEXA axial skeleton HISTORY: Related Osteoporosis M81.0 COMPARISON: No relevant comparison available. TECHNIQUE: Dual-energy X-ray absorptiometry (DXA) was performed. FINDINGS: SPINE ANALYSIS: Average bone mineral density is 0.962 g/cm2. T-score (standard deviation relative to young adult mean): -1.8 . HIP ANALYSIS: Lowest bone mineral density is within the femoral neck, 0.952 g/cm2. T-score (standard deviation relative to young adult mean): -0.6 . XR/XR DEXA axial skeleton IMPRESSION: [employer] Classification: Osteopenia - Moderate Fracture Risk Electronically authenticated by: MERCEDES ZEPEDA Date: 03/10/2024 09:11
--- OUTSIDE RECORDS SUMMARY | 2024-03-10 08:38 | XMS_ITS | CCD ---
Author Organization [facility] Care Team Providers Care Facility Maintenance Worker Name Role Phone Robin Ponce Primary Care Provider HERMELINDO ADKINS Consulting Unavailable ROBIN PONCE Primary Care Unavailable HERMELINDO ADKINS Attending Unavailable HERMELINDO ADKINS Admitting Unavailable GENEVIEVELONDON Consulting Unavailable ELTAJES, EHAB A Attending Unavailable CONCEPCIÓN EHAB A Admitting Unavailable ROBIN PONCE Referring Unavailable ROBIN PONCE Primary Care Unavailable MD Darby Hernandez Primary Care Provider MD Ese Tan Attending Provider [phone] SHAIKH HERNANDEZ Primary Care Physician [phone] DR DANK JOHNSON Admitting UnavailDR ROBIN Marie Primary Care Unavailable DR DANK JOHNSON Attending UnavailREYNA Ni Consulting UnavailLISSETT Simon Consulting Unavailable DR ROBIN SEGOVIA Primary Care Unavailable FAVIO Bingham, JEFFRY Admitting Unavailable SHELLEY II, TIMOTEO Consulting Unavailable TAMYAHAIRA Bingham, JEFFRY Attending Unavailable FAVIO ., JEFFRY Consulting Unavailable FILUTZE, LAURIE Consulting Unavailable CASANDRA HERNANDEZIKH H Admitting Unavailable SHAIKH Enio HERNANDEZ Attending [...] Consulting Unavailable MISC, DR SONI Admitting Unavailable FAKARINA, TRENT H Primary Care Unavailable REGIS, DR ZELALEM Bates Admitting Unavailable FAKARINA, TRENT H Primary Care Unavailable REGIS, DR ZELALEM Bates Attending Unavailable REGIS, DR ZELALEM Bates Consulting Unavailable MIKAEL GUZMAN Consulting Unavailable Robin Ponce Primary Care Physician JONO LOPEZ Attending Unavailable REBEKA PARDO Attending Unavailable ALEXIA CLINE Attending Unavailable JONO LOPEZ Attending Unavailable DOLAN, Arturo Bates Attending Unavailable Hajdari, Astrit H Attending Unavailable FAKARINA, TRENT Primary Care Unavailable DOLAN, Arturo Bates Attending Unavailable DOLAN, Arturo R Attending Unavailable DOLAN, Arturo R Admitting Unavailable DOLAN, Arturo R Attending Unavailable DOLAN, Arturo R Referring Unavailable Allergies Allergy Classification Reported Allergen(s) Allergy Type Date of Onset Reaction(s) Facility Angiotensin Converting Enzyme (RYANNE) Inhibitors (1 source) Lisinopril Drug Allergy [facility] Repository Anti-Epileptic Agents (1 source) topiramate Drug Allergy [facility] Berries (1 source) Richards Food Allergy [facility] Cats (1 source) Cat Animal Allergy (Dander) [facility] Dextroamphetamine (1 source) Dextroamphetamine Drug Allergy [facility] Iodine (and Iodine containting drugs) (1 source) Iodine (And Iodine Containting Drugs) Drug Allergy [facility] Unclassified (2 sources) BLUE DYE; Translations: [BLUE DYE] Drug allergy (disorder) [facility] (7 sources) Aspirin; Translations: [Aspirin] Drug Allergy 016 Nausea [facility] Comment on above: uncoded aspirin (5 sources) atorvastatin; Translations: [atorvastatin] Drug Allergy 014 Unknown Reaction [facility] (8 sources) Lisinopril; Translations: [Lisinopril] Drug Allergy Swelling of Lip/Tongue/Th roat, morphine [facility] (2 sources) Morphine; Translations: [morphine] Drug Allergy [facility] (4 sources) strawberry allergenic extract; Translations: [Richards] Drug Allergy [facility] (5 sources) topiramate; Translations: [topiramate] Drug Allergy Urticaria (disorder) [facility] (1 source) cat dander Allergy to substance [facility] (2 sources) Iodinated Contrast Media; Translations: [IODINATED CONTRAST MEDIA] Allergy to substance [facility] (4 sources) Contrast media; Translations: [Contrast Dye] Drug allergy Urticaria (disorder) [facility] (4 sources) Richards; Translations: [Strawberries] Drug allergy Urticaria (disorder) [facility] (4 sources) SUMAtriptan; Translations: [sumatriptan] Drug Allergy [facility] (1 source) Acetaminophen / Aspirin / Caffeine Drug Allergy [facility] (2 sources) Dextroamphetamine; Translations: [Lipitor] Drug Allergy [facility] (2 sources) Iodine (And Iodine Containting Drugs) Drug allergy (disorder) [facility] (1 source) Ketorolac Drug Allergy [facility] (1 source) Plasmin Drug Allergy [facility] (3 sources) topiramate; Translations: [Topamax] Drug Allergy [facility] (2 sources) Dhe Drug allergy (disorder) [facility] (2 sources) Cat/Feline Product Derivatives Drug allergy (disorder) [facility] (1 source) Iodine; Translations: [IODINE] Drug Allergy [facility] (1 source) CAT/FELINE PRODUCTS; Translations: [CAT/FELINE PRODUCTS] Propensity to adverse reactions to drug (disorder) 016 [facility] Medications Current Medications Medication Drug [...] by mouth every six hours as needed lrxgyvdzkv-uwnljuurwlwbt-dqdvxtvq (DAISY CET, ESGIC) 50-325-40 MG per tablet [...] for 3 day(s), 15 tab(s), Refill(s) 0, [facility]/pharmacy #[id number], 165, cm, 07/13/23 11:34:00 EDT, Height/Length [...] Start: 08-22-2020 take 1 capsule by mo [facility] once daily DULoxetine (CYMBALTA) 60 MG extended [...] Start: 06-01-2020 take 1 capsule by mo [facility] four times daily as needed for anxiety [...] administer the echo contrast. polyethylene glycol 3350 23419 mg powder for oral solution (1 source) [...] Coronary arteriosclerosis; Translations: [Atherosclerotic heart disease of [place] coronary artery without angina pectoris] Onset: 02-24-2023 [...] Hypertensive disorder; Translations: [Essential (primary) hypertension] Onset: 04-10-2023 05-04-2021 Chronic External cause codes: Fall (2 sources) [...] use of drug therapy; Translations: [Other terminal clerk (current) drug therapy] Onset: 02-24-2023 Episodic Other aftercare (1 source) alf (current) use of insulin; Translations: [RESIDENTIAL CURRENT USE OF INSULIN] Onset: 04-16-2023 Episodic Other aftercare (1 source) Other terminal clerk (current) drug therapy; Translations: [OTH DBA DEVELOPER CURRENT DRUG THERAPY] Onset: 04-16-2023 Episodic Other [...] Smoker; Translations: [Nicotine dependence, cigarettes, uncomplicated] Onset: 05-31-2023 04-10-2023 Chronic Comment on above: Added secondary to [...] 03-10-2023 03-20-2021 Episodic Other aftercare (1 source) terminal clerk (current) use of antithrombotics/anti platelets; Translations: [RESIDENTIAL ANTITHROMBOT/ANTIPLA TLETS] Onset: 2022 Episodic Other aftercare (1 source) terminal clerk (current) use of aspirin; Translations: [DBA DEVELOPER CURRENT USE OF ASPIRIN] Onset: 2022 Episodic Other aftercare (1 source) alf (current) use of oral hypoglycemic drugs; Translations: [RESIDENTIAL USE ORAL HYPOGLYCEMIC DX] Onset: 2022 Episodic [...] SHE FELICIA;L CALL THE OFFICE NEXT WEEK [facility] 36on 01-28-2024 36 I have been tying to call pt for about a week, no vm 01/[address] [facility] Telephoneon 01-15-2024 Telephone [id number] Yeyo Avila 1955 F Date Provider Department Center 01/15/2024 KISHAN DONOHUE [facility] No family history on file [facility] Office Visiton 01-14-2024 Follow-up visit [id number] Yeyo Avila 1955 F Date Provider Department Center 01/14/2024 Jesse-REBEKA PARDO [facility] No family history on file Level of Service:32533 MS OFFICE/OUTPATIENT ESTABLISHED MOD MDM 30 MIN [facility] Lab Reportson 01-06-2024 Lab Reports [id number] #1.00TIFF Normal [facility] Lab Reports [id number] #1.00TIFF Normal [facility] Lab Reports [id number] #1.00TIFF Normal [facility] Lab Reportson 01-05-2024 Lab Reports [id number] #1.00TIFF Normal [facility] Lab Reportson 01-02-2024 Lab Reports [id number] #1.00TIFF Normal [facility] Lab Reports [id number] #1.00TIFF [facility] Consent for Procedure/Surger yon 12-30-2023 Consent for Procedure/Surgery [id number]#1.00TIFF [facility] Consent for Treatmenton 12-18 Consent for Treatment [id number] #1.00TIFF Normal [facility] IntraOperative Documentson 0 12-30-2023 IntraOperative Documents [id number]#1.00TIFF Normal [facility] Main OR Intraoperative Recor don 12-30-2023 Main OR Intraoperative Record IntraOp Document Type FTURO Summary Primary Physician: Arturo DOLAN MD Finalized Date/Time: 12/30/23 11:54:47 Pt. Name: YEYO AVILA /Sex: 1955 Female Med Rec #: [id number] Physician: Arturo DOLAN MD Financial #: [id number] Pt. Type: O Room/Bed: / Admit/Disch: 12/30/23 10:56:10 - Institution: Case Times FTURO Entry 1 Patient Times In Room 12/30/23 11:48:00 Out Room 12/30/23 11:59:00 Procedure Times Start 12/30/23 11:51:00 Stop 12/30/23 11:54:00 Anesthesia Times Last Modified By: Kevin QUEZADA, FELICIAOR, Andie 12/30/23 11:54:21 Case Attendance FTURO Entry 1 Entry 2 Entry 3 Case Attendee Arturo DOLAN MD RN, CNOR, Parminder CRUZ, Ashlee Chaves Role Performed Surgeon - Primary Clay Carman - Primary Scrub - Primary Time In 12/30/23 11:48:00 12/30/23 11:48:00 12/30/23 11:48:00 Time Out 12/30/23 11:59:00 12/30/23 11:59:00 12/30/23 11:59:00 Procedure CYSTOSCOPY LOCAL WITH CYSTOSCOPY LOCAL WITH CYSTOSCOPY LOCAL WITH STENT REMOVAL(Left) STENT REMOVAL(Left) STENT REMOVAL(Left) Comments Last Modified By: Kevin RN, CNOR, Kevin RN, FELICIAOR, Kevin RN, FELICIAOR, Andie 12/30/23 Andie 12/30/23 Andie 12/30/23 11:54:22 11:54:22 11:54:22 Surgical Procedures FTURO Entry 1 Procedure Description Procedure CYSTOSCOPY LOCAL WITH Modifiers Left STENT REMOVAL Surgeon Description CYSTO LEFT STENT REMOVAL Primary Procedure Yes Primary Surgeon Arturo DOLAN MD Start 12/30/23 11:51:00 Stop 12/30/23 11:54:00 Anesthesia Type Local Surgical Service Urology Wound Class 2 - Clean-Contaminated Last Modified By: SALVADOR Brown RN, Ruthann 12/30/23 11:54:23 General Case Data FTURO Pre-Care Text: Classifies surgical wound, implements aseptic technique, initiates traffic control Entry 1 Case Information OR URO 1 FT Case Level None Wound Class 2 - Clean-Contaminated Specialty Urology Preop Diagnosis STATUS POST STENT Postop Same As Preop Yes PLACEMENT Postop Diagnosis STATUS POST STENT Outcomes Met? Yes PLACEMENT Last Modified By: SALVADOR Brown RN, Ruthann 12/30/23 11:50:01 Post-Care Text: The patient is free from signs and symptoms of infection EU IntraOp - FTURO Pre-Care Text: Implements protective measures prior to operative or invasive procedure, confirms identity before the operative or invasive procedure, verifies operative procedure, surgical site, and laterality Entry 1 EU Perioperative Protocols Procedure(s) CYSTOSCOPY LOCAL WITH Patient Identity Birthday, ID Band STENT REMOVAL(Left) Verified (select at Check, Patient least 2): Participation Consents / H and P HandP, Surgery/Procedure Operative Site N/A Verified Consent Marking Verified Surgical Site Yes Laterality Verified n/a Verified Procedure Verified Yes Correct Patient Yes Position Verified Availability Equipment, Medication Time Out Arturo DOLAN MD, Verified (If Participants FELICIA Brown RNOR, Applicable) Parminder Chaves CST, Kimberly A Time Out Complete 12/30/23 11:50:00 Allergies Reviewed? Yes Allergies Reviewed Self/Patient With Body Position Frog Legged Prep Area perineal area Prep Agents Betadine Solution Skin. Condition Unable to Visualize Additional None Specimens Collected Vitals - EU Blood Pressure Pulse Respirations SPO2 EBL 0 IandO - EU Total Intake 0 mL Total Output 0 mL Outcomes Met? Yes Last Modified By: SALVADOR Brown RN, Ruthann 12/30/23 11:51:15 Post-Care Text: The patient is free from signs and symptoms of injury caused by extraneous objects Sign Out FTURO Entry 1 Before Patient Leaves OR Nurse verbally Yes Nurse verbally n/a confirms with the confirms with the team the name of team that the procedure(s) instrument, sponge, recorded and needle counts are correct (or N/A) Nurse verbally n/a Nurse verbally n/a confirms with the confirms with the team how the team whether there specimen is labeled are any equipment (including patient problems to be name), if applicable addressed Sign Out Complete 12/30/23 11:55:00 Last Modified By: SALVADOR Brown RN, Ruthann 12/30/23 11:54:45 Case Comments Finalized By: SALVADOR Brown RN, Ruthann Document Signatures Signed By: SALVADOR Brown RN, Ruthann 12/30/23 11:[address] [facility] Main OR Preoperative Recordo n 12-30-2023 Main OR Preoperative Record Holding Area Document Type FTURO Summary Primary Physician: Arturo DOLAN MD Finalized Date/Time: 12/30/23 11:52:08 Pt. Name: MARGARITAYEYO/Sex: 1955 Female Med Rec #: [id number] Physician: Arturo DOLAN MD Financial #: [id number] Pt. Type: O Room/Bed: / Admit/Disch: 12/30/23 10:56:10 - Institution: Case Times Holding FTURO Pre-Care Text: Verifies consent for planned procedure, identifies individual values and wishes concerning care, includes family members in perioperative teaching Secures patient's records' belongings, and valuables, maintains patient's dignity and privacy, and maintains patient confidentiality Entry 1 In Holding 12/30/23 11:32:00 Outcomes Met? Yes Last Modified By: Laurie Venegas LPN 12/30/23 11:32:50 Post-Care Text: The patient participates in decisions affecting his or her perioperative plan of care The patient's right to privacy is maintained Surgery Checklist FTURO Entry 1 Patient Birthday, ID Band NPO after Midnight: n/a Identification: Check, Patient Participation Personal Items: Glasses Limitations: up luna trino Complaints of Pain: No Skin Integrity Intact, [place], Warm, & Dry Vitals - EU Blood Pressure 166/93 Pulse 87 bpm Respirations 18 br/min SPO2 97 % RN Reviewed Yes Last Modified By: SALVADOR Brown RN, Ruthann 12/30/23 11:52:06 Finalized By: SALVADOR Brown RN, Ruthann Document Signatures Signed By: SALVADOR Brown RN, Ruthann 12/30/23 11:[address] [facility] Operative Reporton Operative Report Patient: YEYO AVILA Age: 68 years Sex: Female : 1955 Associated Diagnoses: None Author: Arturo DOLAN MD Procedure Operative Information Details: Date/ Time: 12/30/2023 11:58:00. Pre-Op Dx: Foreign Body in Bladder - T19.1XXA. Post-Op Dx: Same. Anesthesia Type: Local. Procedure: Local Cystoscopy with Stent Removal. Complications: None. Risks/Benefits/Infor med Consent: Surgical risks, benefits, details of the procedure have been explained to the patient, Full informed consent has been obtained. Intraoperative Information Prepped: The patient was placed in a modified dorso-lithotomy position, The patient was prepped with the Betadine solution. Anesthesia: 2% Xylocaine Jelly per urethra. Procedure: Cystoscopy and Left Stent Removal, The flexible Cystoscope was passed in retrograde fashion into the bladder without difficulty, The bladder was viewed in entirety and found to be without tumors or stones, Mild inflammation was seen surrounding the orifice with the stent seen protruding from it, The stent was then grasped and removed in its entirety. Specimens Removed: None. Devices Implanted: None. Postoperative Information Discharge: The patient tolerated the procedure well and was subsequently discharged home. Normal [facility] Comment on above: Result Comment: Elec tronically Signed By: Arturo DOLAN MD\.br\Date and Time Signed: 12/30/23 11:59 EST Lab Reportson 12-29-2023 Lab Reports [id number] #1.00TIFF Normal [facility] Lab Reportson 12-19-2023 Lab Reports [id number] #1.00TIFF Normal [facility] Lab Reports [id number] #1.00TIFF Normal [facility] Operative Reporton Operative Report [id number] #1.00TIFF Normal [facility] Lab Reportson 12-12-2023 Lab Reports [id number] #1.00TIFF Normal [facility] Lab Reports [id number]# 1.00TIFF Normal [facility] Consultation Noteon 12-04-19 Consultation Note [id number] #1.00TIFF Normal [facility] Formson 12-04-2023 Forms [id number]# 1.00TIFF Normal [facility] Documentationon 12-03-2023 Documentation [id number] Yeyo Avila 1955 F Date Provider Department Center 12/03/2023 Adryan-ALEXIA CLINE [facility]. No family history on file [facility] Consent for Procedure/Surger yon 11-28-2023 Consent for Procedure/Surgery [id number]#1.00TIFF Normal [facility] RAD - MISCon 11-19-2023 RAD - MISC [id number] #1.00TIFF Normal [facility] Consent for Procedure/Surger yon 11-13-2023 Consent for Procedure/Surgery [id number] #1.00TIFF Normal [facility] ECG 12-Leadon 11-13-2023 ECG 12-Lead [id number] #1.00TIFF Normal [facility] Lab Reportson 11-13-2023 Lab Reports [id number] #1.00TIFF Normal [facility] Operative Reporton Operative Report [id number] #1.00TIFF Normal [facility] RAD - MISCon 11-13-2023 RAD MIS [id number] #1.00TIFF Normal [facility] Ambulatory Visit Summaryon 1 01-13-2023 Ambulatory Visit Summary YEYO AVILA :1955 Visit Date:11/12/2023 Ambulatory Visit Instructions Your Diagnosis Kidney stones History of bladder cancer Renal cyst, left Tests Performed Urnls Dip Stick Auto w/o Microscopy POC 34501 Your Care Team Attending Physician - Arturo DOLAN MD Primary Care Physician - Robin Ponce MD This Is Your Medications List Contact prescribing physician if questions or concerns acetaminophen-hydroc odone (Vicodin) acetaminophen-hydroc odone (acetaminophen-hydro codone 325 mg-5 mg oral tablet) aspirin (Aspirin 81 mg Tab-EC) carvedilol (Coreg 12.5 mg Tab) cephalexin (cephalexin 500 mg Cap) citalopram (CeleXA 40 mg Tab) clopidogrel (Plavix 75 mg Tab) hydrOXYzine (hydrOXYzine pamoate 25 mg Cap) insulin isophane-insulin regular (NovoLIN 70/30 FlexPen subcutaneous suspension) isosorbide mononitrate (isosorbide mononitrate 60 mg ER Tab) nitroglycerin (nitroglycerin 0.4 mg sublingual Tab) omeprazole (omeprazole 40 mg Cap-EC) ondansetron (ondansetron 4 mg Dis Tab) pravastatin (pravastatin 10 mg oral tablet) tizanidine (Zanaflex 4 mg Tab) Procedures Performed Abdominal hysterectomy, Appendectomy, Closed fracture of patella, Colonoscopy, Exploratory laparotomy. Discharge Vitals Heart Rate (Peripheral) 67 Blood Pressure 137/74 Height 165 cm Height 65 in Weight 110 kg Weight 242 lb BMI 40.4 What to do next You Need to Schedule the Following Appointments Follow Up with MAGDALENO PRADO, ALONSO Mcgill When: Where: [facility] [address] , [place] [address]- Medications What How Much When Instructions Unchanged acetaminophen-hydroc odone (acetaminophen-hydro codone 325 mg-5 mg oral tablet) Contact prescribing physician if questions or concerns Unchanged acetaminophen-hydroc odone (Vicodin) By Mouth Every 4 hours Contact prescribing physician if questions or concerns Unchanged aspirin (Aspirin 81 mg Tab-EC) 1 Tablets By Mouth Every day Contact prescribing physician if questions or concerns Unchanged carvedilol (Coreg 12.5 mg Tab) 1 Tablets By Mouth 2 times a day Contact prescribing physician if questions or concerns Unchanged cephalexin (cephalexin 500 mg Cap) Contact prescribing physician if questions or concerns Unchanged citalopram (CeleXA 40 mg Tab) 1 Tablets By Mouth Every day Contact prescribing physician if questions or concerns Unchanged clopidogrel (Plavix 75 mg Tab) 1 Tablets By Mouth Every day Contact prescribing physician if questions or concerns Unchanged hydrOXYzine (hydrOXYzine pamoate 25 mg Cap) Contact prescribing physician if questions or concerns Unchanged insulin isophane-insulin regular (NovoLIN 70/ 30 FlexPen subcutaneous suspension) Contact prescribing physician if questions or concerns Unchanged isosorbide mononitrate (isosorbide mononitrate 60 mg ER Tab) Contact prescribing physician if questions or concerns Unchanged nitroglycerin (nitroglycerin 0.4 mg sublingual Tab) Contact prescribing physician if questions or concerns Unchanged omeprazole (omeprazole 40 mg Cap-EC) 1 Capsules By Mouth Every day Contact prescribing physician if questions or concerns Unchanged ondansetron (ondansetron 4 mg Dis Tab) Contact prescribing physician if questions or concerns Unchanged pravastatin (pravastatin 10 mg oral tablet) 1 Tablets By Mouth Every day Contact prescribing physician if questions or concerns Unchanged tizanidine (Zanaflex 4 mg Tab) 1 Tablets By Mouth 2 times a day as needed for Muscle pain Contact prescribing physician if questions or concerns Test Results Urnls Dip Stick Auto w/o Microscopy POC 11320 (11/12/2023) Bilirubin Urine Dipstick - Negative Blood Urine Dipstick - 2+ Moderate Glucose Urine Dipstick - Negative Ketones Urine Dipstick - Negative Leukocytes Urine Dipstick - Negative Nitrite Urine Dipstick - Negative Protein Urine Dipstick - Trace Specific [place] Urine Dipstick - >=1.030 Urine Appearance Urine Dipstick - Clear Urine Color Urine Dipstick - Yellow Urobilinogen Urine Dipstick - Normal 0.2-1 EU/dl pH Urine Dipstick - 5.5 Allergies Contrast Dye (Hives..) Imitrex Lipitor Strawberries (Hives..) Topamax (Hives..) aspirin lisinopril (morphine) Problems Ongoing - Any problem that you are currently receiving treatment for. Anemia Arthritis Asthma Bladder cancer COPD (chronic obstructive pulmonary disease) Diabetes mellitus Heart disease High cholesterol History of bladder cancer Hypertension Kidney stones Renal cyst, left Smoker Historical - Any problem that you are no longer receiving treatment for. Benign essential hypertension Bladder cancer Cystoscopy and transurethral resection of bladder tumor Diverticulosis Fibromyalgia Hypercholesterolemia Patient Survey You may receive a survey via text or e-mail asking about your office visit. Please share your experience with us by completing your survey. We (more content not included)... Normal [facility] Ambulatory Visit Summary YEYO AVILA :1955 Visit Date:11/12/2023 Ambulatory Visit Instructions Your Diagnosis Kidney stones History of bladder cancer Renal cyst, left Tests Performed Urnls Dip Stick Auto w/o Microscopy POC 77258 Your Care Team Attending Physician - MAGDALENO PRADO, Arturo Bates Primary Care Physician - Kris PRADO, Robin This Is Your Medications List Contact prescribing physician if questions or concerns acetaminophen-hydroc odone (Vicodin) acetaminophen-hydroc odone (acetaminophen-hydro codone 325 mg-5 mg oral tablet) aspirin (Aspirin 81 mg Tab-EC) carvedilol (Coreg 12.5 mg Tab) cephalexin (cephalexin 500 mg Cap) citalopram (CeleXA 40 mg Tab) clopidogrel (Plavix 75 mg Tab) hydrOXYzine (hydrOXYzine pamoate 25 mg Cap) insulin isophane-insulin regular (NovoLIN 70/30 FlexPen subcutaneous suspension) isosorbide mononitrate (isosorbide mononitrate 60 mg ER Tab) nitroglycerin (nitroglycerin 0.4 mg sublingual Tab) omeprazole (omeprazole 40 mg Cap-EC) ondansetron (ondansetron 4 mg Dis Tab) pravastatin (pravastatin 10 mg oral tablet) tizanidine (Zanaflex 4 mg Tab) Procedures Performed Abdominal hysterectomy, Appendectomy, Closed fracture of patella, Colonoscopy, Exploratory laparotomy. Discharge Vitals Heart Rate (Peripheral) 67 Blood Pressure 137/74 Height 165 cm Height 65 in Weight 110 kg Weight 242 lb BMI 40.4 What to do next You Need to Schedule the Following Appointments Follow Up with MAGDALENO PRADO, ALONSO Mcgill When: Where: [facility] [address], [place] [address]- Medications What How Much When Instructions Unchanged acetaminophen-hydroc odone (acetaminophen-hydro codone 325 mg-5 mg oral tablet) Contact prescribing physician if questions or concerns Unchanged acetaminophen-hydroc odone (Vicodin) By Mouth Every 4 hours Contact prescribing physician if questions or concerns Unchanged aspirin (Aspirin 81 mg Tab-EC) 1 Tablets By Mouth Every day Contact prescribing physician if questions or concerns Unchanged carvedilol (Coreg 12.5 mg Tab) 1 Tablets By Mouth 2 times a day Contact prescribing physician if questions or concerns Unchanged cephalexin (cephalexin 500 mg Cap) Contact prescribing physician if questions or concerns Unchanged citalopram (CeleXA 40 mg Tab) 1 Tablets By Mouth Every day Contact prescribing physician if questions or concerns Unchanged clopidogrel (Plavix 75 mg Tab) 1 Tablets By Mouth Every day Contact prescribing physician if questions or concerns Unchanged hydrOXYzine (hydrOXYzine pamoate 25 mg Cap) Contact prescribing physician if questions or concerns Unchanged insulin isophane-insulin regular (NovoLIN 70/ 30 FlexPen subcutaneous suspension) Contact prescribing physician if questions or concerns Unchanged isosorbide mononitrate (isosorbide mononitrate 60 mg ER Tab) Contact prescribing physician if questions or concerns Unchanged nitroglycerin (nitroglycerin 0.4 mg sublingual Tab) Contact prescribing physician if questions or concerns Unchanged omeprazole (omeprazole 40 mg Cap-EC) 1 Capsules By Mouth Every day Contact prescribing physician if questions or concerns Unchanged ondansetron (ondansetron 4 mg Dis Tab) Contact prescribing physician if questions or concerns Unchanged pravastatin (pravastatin 10 mg oral tablet) 1 Tablets By Mouth Every day Contact prescribing physician if questions or concerns Unchanged tizanidine (Zanaflex 4 mg Tab) 1 Tablets By Mouth 2 times a day as needed for Muscle pain Contact prescribing physician if questions or concerns Test Results Urnls Dip Stick Auto w/o Microscopy POC 31737 (11/12/2023) Bilirubin Urine Dipstick - Negative Blood Urine Dipstick - 2+ Moderate Glucose Urine Dipstick - Negative Ketones Urine Dipstick - Negative Leukocytes Urine Dipstick - Negative Nitrite Urine Dipstick - Negative Protein Urine Dipstick - Trace Specific [place] Urine Dipstick - >=1.030 Urine Appearance Urine Dipstick - Clear Urine Color Urine Dipstick - Yellow Urobilinogen Urine Dipstick - Normal 0.2-1 EU/dl pH Urine Dipstick - 5.5 Allergies Contrast Dye (Hives..) Imitrex Lipitor Strawberries (Hives..) Topamax (Hives..) aspirin lisinopril (morphine) Problems Ongoing - Any problem that you are currently receiving treatment for. Anemia Arthritis Asthma Bladder cancer COPD (chronic obstructive pulmonary disease) Diabetes mellitus Heart disease High cholesterol History of bladder cancer Hypertension Kidney stones Renal cyst, left Smoker Historical - Any problem that you are no longer receiving treatment for. Benign essential hypertension Bladder cancer Cystoscopy and transurethral resection of bladder tumor Diverticulosis Fibromyalgia Hypercholesterolemia Patient Survey You may receive a survey via text or e-mail asking about your office visit. Please share your experience with us by completing your survey. We (more content not included)... Normal [facility] ECG 12-Leadon 11-12-2023 ECG 12-Lead [id number] #1.00TIFF Normal [facility] ED Note-Physicianon 11-12-20 ED Note-Physician [id number] #1.00TIFF Normal [facility] Lab Reportson 11-12-2023 Lab Reports [id number] #1.00TIFF Normal [facility] Patient Educationon 11-12-20 Patient Education Nephrology Laser Therapy for Kidney Stones, Care After This sheet gives you information about how to care for yourself after your procedure. Your health care provider may also give you more specific instructions. If you have problems or questions, contact your health care provider. What can I expect after the procedure? After the procedure, it is common to have: ? Pain. ? A burning sensation while urinating. ? Small amounts of blood in your urine. ? A need to urinate frequently. ? Pieces of kidney stone in your urine. ? Mild discomfort when urinating that may be felt in the back. You may experience this if you have a flexible tube (stent) in your ureter. Follow these instructions at home: Medicines ? Take dkuz-zst-qgkysam and prescription medicines only as told by your health care provider. ? If you were prescribed an antibiotic medicine, take it as told by your health care provider. Do not stop taking the antibiotic even if you start to feel better. ? Ask your health care provider if the medicine prescribed to you: ? Requires you to avoid driving or using heavy machinery. ? Can cause constipation. You may need to take actions to prevent or treat constipation, such as: ? Take mgbc-bir-intoisx or prescription medicines. ? Eat foods that are high in fiber, such as beans, whole grains, and fresh fruits and vegetables. ? Limit foods that are high in fat and processed sugars, such as fried or sweet foods. Activity ? Return to your normal activities as told by your health care provider. Ask your health care provider what activities are safe for you. ? Do not drive for 24 hours if you were given a sedative during your procedure. General instructions ? If your health care provider approves, you may take a warm bath to ease discomfort and burning. ? Drink enough fluid to keep your urine pale yellow. Your health care provider may recommend drinking two 8 oz (237 mL) glasses of water per hour for a few hours after your procedure. ? You may be asked to strain your urine to collect any stone fragments that you pass. These fragments may be tested. ? Keep all follow-up visits as told by your health care provider. This is important. If you have a stent, you will need to return to your health care provider to have the stent removed. Contact a health care provider if you: ? Have pain or a burning feeling that lasts more than 2 days. ? Feel nauseous. ? Vomit more and more often. ? Have difficulty urinating. ? Have pain that gets worse or does not get better with medicine. Get help right away if: ? You are unable to urinate, even if your bladder feels full. ? You have: ? Bright red blood or blood clots in your urine. ? More blood in your urine. ? Severe pain or discomfort. ? A fever or shaking chills. ? Abdominal pain. ? Difficulty breathing. ? Swelling in your legs. This information is not intended to replace advice given to you by your health care provider. Make sure you discuss any questions you have with your health care provider. Document Revised: 03/12/2023 Document Reviewed: 07/08/2022 [employer] Patient Education ? 2022 [employer]. Laser Therapy for Kidney Stones Laser therapy for kidney stones is a procedure to break up small, hard mineral deposits that form in the kidney (kidney stones). The procedure is done using a device that produces a focused beam of light (laser). The laser breaks up kidney stones into pieces that are small enough to be passed out of the body through urination or removed from the body during the procedure. You may need laser therapy if you have kidney stones that are painful or block your urinary tract. This procedure is done by inserting a tube (ureteroscope) into your kidney through the urethral opening. The urethra is the part of the body that drains urine from the bladder. In women, the urethra opens above the vaginal opening. In men, the urethra opens at the tip of the penis. The ureteroscope is inserted through the urethra, and surgical instruments are moved through the bladder and the muscular tube that connects the kidney to the bladder (ureter) until they reach the kidney. Tell a health care provider about: ? Any allergies you have. ? All medicines you are taking, including vitamins, herbs, eye drops, creams, and lvcx-kfe-xcfepuz medicines. ? Any problems you or family members have had with anesthetic medicines. ? Any blood disorders you have. ? Any surgeries you have had. ? Any medical conditions you have. ? Whether you are or may be . What are the risks? Generally, this is a safe procedure. However, problems may occur, including: ? Infection. ? Bleeding. ? Allergic reactions to medicines. ? Damage to the urethra, bladder, or ureter. ? Urinary tract infection (UTI). ? Narrowing of the urethra (urethral stricture). ? Difficulty passing urine. ? Blockage of the kidney caused by a fragment of kidney st (more content not included)... Normal [facility] RAD - CT Reporton 11-12-2023 RAD - CT Report [id number] #1.00TIFF Normal [facility] Urology Office/Clinic Noteon 11-12-2023 Urology Office/Clinic Note Chief Complaint Pt is here for [facility] ER f/u HPI Staff Yeyo is a 68 y.o. female here for follow up to [facility] ER. Pt has seen [facility] in the past. Previous Dx: bladder cancer, kidney stones. S/P cystoscopy done on 02/04/22. MRI of abdomen done on 02/18/22 showed nonenhancing renal cyst superior pole left kidney, no renal mass. Pt presented to [facility] ER on 11/11/23 for left flank pain. CT a/p w/o contrast done on 11/11/23 showed [id number] stone lodged at the left renal pelvis, nonobstructing stones clustered at the lower pole left kidney measuring [id number]. BUN 16.0 & CRE 0.86 done on 11/11/23. Dysuria: denies Incomplete bladder emptying: denies Hematuria: denies Frequency: yes Urgency: yes Nocturia: 4x a night Stream: steady stream Leaking: denies Post void dripping: denies Wearing pads/ Depends: denies Urge incontinence: denies Stress incontinence: denies Incontinence without Sensory Awareness: denies Abdominal pain: Lt sided pain 07/27 Flank pain: Lt flank pain 07/27 Sexual complaints: _ History of Present Illness Tests reviewed: reviewed UA, [facility] records, CT, MRI I have reviewed the previous health record information and history for this patient from Dr. Tan and [facility]. I have reviewed and verified the staff HPI to be accurate for this encounter. There have been no associated fever, chills, flank pain, or blood in the urine. Denies any urinary infections since last encounter. Review of Systems PHQ Score Initial Depression Screen Score: 0 SCORE ROS - Provider Constitutional: denies weight loss, denies hot flashes. Eyes: denies eye problems. Gastrointestinal: denies nausea, denies vomiting. Cardiovascular: denies chest pain or angina. Integumentary: no dryness Musculoskeletal: denies musculoskeletal symptoms. ENMT: denies otolaryngeal symptoms. Respiratory: no shortness of breath. Heme/Lymph: denies easy bleeding tendency, denies easy bruising tendency. Psychiatric: no confusion, no anxiety. Genitourinary: See HPI. Physical Exam Vitals & Measurements HR: 67(Peripheral) BP: 137/74 HT: 65 in HT: 165 cm WT: 110 kg WT: 242 lb BMI: 40.4 General Appearance: alert , no acute distress, well nourished, well developed female. Genitourinary: bladder nonpalpable, no flank pain. Assessment/Plan Dr. Tan pt following up to [facility] ED visit on 11/11/23 due to L flank pain. Pt here with a friend today. 1. Kidney stones (N20.0: Calculus of kidney) CT AP wo con 11/11/23 - 10 x 6 x 14 mm stone lodged at the L renal pelvis and is slightly increased in size from previous study. A few additional nonobstructing stones clustered at the LLP, largest 5 x 5 x 6 mm. No L hydro, mild urothelial thickening at the L renal pelvis. No ureteral calculus or stone on the R. 11/11/23 - BUN 16. Crea 0.86. UA shows moderate blood, neg for infection. She is currently taking Keflex bid from [facility]. Reviewed imaging with pt. Explained ureteral stents and cause of stone pain. Recommended stent placement to prevent more stone complications, followed by eventual L URS, laser litho for stone removal. Discussed metabolic workup including 24 hour urine and blood work for stone prevention, to be completed in the future after current stones tx. -Will schedule surveillance cysto for #3, cysto/L stent placement for tomorrow at [facility]. The procedural risks, benefits, details, and treatment alternatives have been discussed with the patient. These include bleeding, infection, inability to break or retrieve all of the stone, injury to the ureter (the tube which connects the kidney to the bladder), injury to the kidney scarring of the ureter, and need for repeat procedures, among others. Full informed consent has been obtained. Will order General anesthesia. -Nothing PO after midnight tonight. -Will schedule L Laser Litho for future. The procedural risks, benefits, details, and treatment alternatives have been discussed with the patient. These include bleeding, infection, inability to break or retrieve all of the stone, injury to the ureter (the tube which connects the kidney to the bladder), injury to the kidney scarring of the ureter, and need for repeat procedures, among others. Full informed consent has been obtained. Will order General anesthesia. 2. History of bladder cancer (Z85.51: Personal history of malignant neoplasm of bladder) Last surveillance cysto by Dr. Tan 02/04/22 - Punctate uric acid crystals around bladder neck. 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 Negative cystoscopy today. Based on NCCN guidelines for hx low risk bladder cancer, no further surveillance cystoscopy is recommended at this time. [2] Has not had recent surveillance cysto. Recommended continued surveillance. Educated pt on the importance of compliance and continued f/u. Pt did not like following with [facility] since the physician always had students in the room during her cysto. -See #1 for surveillance cysto. 3. Renal cyst, left (N28.1: Cyst of kidney, acquired) MRI Ab 02/18/22 - (more content not included)... Normal [facility] Comment on above: Result Comment: Elec tronically Signed By: Arturo DOLAN MD\.br\Date and Time Signed: 11/12/23 10:49 EST\.br\Electronically Co-Signed By: Francie Myers\.br\Date and Time Co-Signed: 11/12/23 10:44 EST Consent for Treatmenton 06-18 Consent for Treatment [id number] #1.00CD:[address] [facility] Discharge Instructionson Discharge Instructions [id number] #1.00CD:[address] [facility] ED Clinical Summaryon 2022 ED Clinical Summary [place] [id number] ED Clinical Summary Person Information Name: YEYO AVILA [place] Age: 67 Years : 1955 Sex: Female Language: Uruguayan PCP: Robin Ponce MD Marital Status: Visit Id: Visit Reason: Shoulder pain-swelling; LEFT SHOULDER PAIN Speciality: Acuity: 4 Enc Type: Emergency Med Service: Emergency Arrival: 07/13/2023 11:21:03 Discharge: 07/13/2023 12:19:00 LOS: 000 00:58 Checkin: 07/13/2023 11:21:03 Checkout: 07/13/2023 12:19:00 Dispo Type: Home (Routine DC) EVENTS: Event Name Event Status Request Date/Time Start Date/Time Complete Date/Time Arrive Complete 07/13/2023 11:21:03 07/13/2023 11:21:03 07/13/2023 11:21:03 Document Home Meds Request 07/13/2023 11:21:03 Triage Complete 07/13/2023 11:21:03 07/13/2023 11:34:44 07/13/2023 11:34:44 Registration Complete 07/13/2023 11:27:58 07/13/2023 11:27:58 07/13/2023 11:27:58 Reg Complete Request 07/13/2023 11:27:58 Reg Bed Request Complete 07/13/2023 11:27:58 07/13/2023 11:27:58 07/13/2023 11:27:58 Bed Assign Complete 07/13/2023 11:30:32 07/13/2023 11:30:32 07/13/2023 11:30:32 Dr Exam Complete 07/13/2023 11:30:32 07/13/2023 11:35:56 07/13/2023 11:35:56 RN Exam Complete 07/13/2023 11:30:32 07/13/2023 11:36:38 07/13/2023 11:36:38 Registration Request 07/13/2023 11:35:56 Dr Exam Complete 07/13/2023 11:36:57 07/13/2023 11:36:57 07/13/2023 11:36:57 Discharge Complete 07/13/2023 12:03:30 07/13/2023 12:19:05 07/13/2023 12:19:05 Transfer Complete 07/13/2023 12:19:05 07/13/2023 12:19:05 07/13/2023 12:19:05 ADDRESS: [address] [id number] PHYS DOC NOTES: MEDICAL INFORMATION: Prescriptions Given: New Medications [id number], [address], [place] [id number], [phone] acetaminophen-oxycod one (Percocet 5 mg-325 mg oral tablet) 1 Tablets By Mouth every 6 hours as needed as needed for pain for 3 Days. Refills: 0. Medications to Continue with No Changes Other Medications acetaminophen-hydroc odone (Vicodin) By Mouth every 4 hours. aspirin (Aspirin 81 mg Tab-EC) 1 Tablets By Mouth every day. carvedilol (Coreg 12.5 mg Tab) 1 Tablets By Mouth 2 times a day. citalopram (CeleXA 40 mg Tab) 1 Tablets By Mouth every day. clopidogrel (Plavix 75 mg Tab) 1 Tablets By Mouth every day. docusate (Colace 100 mg Cap) 1 Capsules By Mouth 2 times a day as needed for constipation. isosorbide dinitrate 30 Milligram By Mouth every day. omeprazole (omeprazole 40 mg Cap-EC) 1 Capsules By Mouth every day. pravastatin (pravastatin 10 mg oral tablet) 1 Tablets By Mouth every day. simvastatin (simvastatin 40 mg Tab) 1 Tablets By Mouth once a day (at bedtime). tizanidine (Zanaflex 4 mg Tab) 1 Tablets By Mouth 2 times a day as needed Muscle pain. PATIENT EDUCATION INFORMATION: Instructions: Shoulder Pain; Muscle Strain Follow up: With: Address: When: Robin Ponce [address] [place] [address], [address] [place] [phone] Business (1) In 3 days 07/16/2023 DIAGNOSIS: Shoulder pain Normal [facility] ED Note-Physicianon 07-13-20 ED Note-Physician Basic Information Time Seen: Mathew Montana PA-C 07/13/2023 11:35 Chief Complaint pt to ed with c/o left shoulder pain that go tot her fingers. pain started friday, denies any injuries. History of Present Illness 67-year-old female comes to the ED for evaluation of left shoulder pain. She has a few days ago she developed pain along the left shoulder blade area that radiates to her neck and down her left arm. Her pain has been persistent and progressive over the last 5 days. She denies any chest pain or shortness of breath. No fever, chills, nausea or vomiting. No headache or vision changes. No trauma to the area. No prior treatments. Review of Systems A 10 point review of systems is negative except as noted above. Medical and Surgical History: Reviewed and noted Social history: Lives at home Tobacco: Denies Physical Exam Vitals & Measurements T: 36.6 ?C(Oral) HR: 76(Peripheral) RR: 18 BP: 147/85 SpO2: 97% HT: 165 cm WT: 95.5 kg BMI: 35.08 Nurses notes and vital signs reviewed and patient is not hypoxic. General: The patient appears well, resting comfortably. Skin: Warm, dry. Head: Atraumatic. Neck: No JVD. Eye: Normal conjunctiva. Ears, Nose, Mouth, and Throat: Moist mucous membranes. Cardiovascular: Strong distal pulses. Chest wall: Respiratory: Respirations are nonlabored. Back: Normal range of motion. Musculoskeletal: Tenderness along the left trapezius musculature. There is muscular spasm appreciated around the scapular area. No overlying ecchymosis or erythema. Full range of motion of the neck and shoulder without evidence of acute neurovascular compromise Gastrointestinal: Urological: Neurological: Awake and alert. No focal deficits. Follows commands. Psychiatric: Cooperative. Medical Decision Making Exam is consistent with musculoskeletal etiology. She has point tenderness along the trapezius. She has no chest pain or shortness of breath. She is treated symptomatically with pain medications and educated to gentle stretching. Discharged home PCP follow-up. Patient was encouraged to return to the ED if symptoms worsen or change. Assessment/Plan Shoulder pain (M25.519: Pain in unspecified shoulder) Ordered: acetaminophen-oxycod one, 1 tab(s), Oral, q6hr as needed for pain for 3 day(s), 15 tab(s), Refill(s) 0, [id number], 165, cm, 07/13/23 11:34:00 EDT, Height/Length Dosing, 95.5, kg, 07/13/23 11:34:00 EDT, Weight Dosing Disposition Plan Patient Discharge Condition Disposition: Discharged home Condition: Improved and stable Counseled: Patient and/or family were counseled to workup, results, treatment plan and follow-up recommendations Discharge Prescription List Prescriptions Percocet 5 mg-325 mg oral tablet, 1 tab(s), Oral, q6hr, PRN Follow-up With When Contact Information Robin Joshikarissa In 3 days 07/16/2023 EDT [address] [place] [address]- Business (1) Additional Instructions: Patient Education Shoulder Pain Muscle Strain Attestation Patient seen and evaluated by the physician chemist assistant. Attending physician was present in the emergency department and supervised care. This visit was performed by both the physician and an APC. I performed all aspects of the MDM as documented. This report was transcribed using voice recognition software. Every effort was made to ensure accuracy, however, inadvertently computerized chief of surgery mistakes may be present. Appropriate healthcare PPE was used in evaluating this patient. The patient was placed in a mask. The healthcare provider was wearing mask, gloves, and utilizing proper hand hygiene. All equipment was properly cleansed. Problem List/Past Medical History Ongoing Anemia Arthritis Asthma Bladder cancer COPD (chronic obstructive pulmonary disease) Diabetes mellitus Heart disease High cholesterol Hypertension Kidney stones Smoker Historical Benign essential hypertension Bladder cancer Cystoscopy and transurethral resection of bladder tumor Diverticulosis Fibromyalgia Hypercholesterolemia Procedure/Surgical History Abdominal hysterectomy, Appendectomy, Closed fracture of patella, Colonoscopy, Exploratory laparotomy. Medications Inpatient No active inpatient medications Home Aspirin 81 mg Tab-EC, 81 [...] 4 mg= 1 tab(s), Oral, BID, PRN Allergies Contrast Dye (Hives..) Imitrex Lipitor Strawberries (Hives (more content not included)... Normal [facility] Comment on above: Result Comment: Elec tronically Signed By: Mathew Montana PA-C\.br\Date and Time Signed: 07/13/23 12:04 EDT\.br\Electronically Co-Signed By: Zaki Muñoz M.D.\.br\Date and Time Co-Signed: 07/13/23 12:37 EDT ED Patient Education Noteon 07-13-2023 ED Patient Education Note Orthopedics Shoulder Pain Many things can cause shoulder pain, including: ? An injury to the shoulder. ? Overuse of the shoulder. ? Arthritis. The source of the pain can be: ? Inflammation. ? An injury to the shoulder joint. ? An injury to a tendon, ligament, or bone. Follow these instructions at home: Pay attention to changes in your symptoms. Let your health care provider know about them. Follow these instructions to relieve your pain. If you have a sling: ? Wear the sling as told by your health care provider. Remove it only as told by your health care provider. ? Loosen the sling if your fingers tingle, become numb, or turn cold and blue. ? Keep the sling clean. ? If the sling is not waterproof: ? Do not let it get wet. Remove it to shower or bathe. ? Move your arm as little as possible, but keep your hand moving to prevent swelling. Managing pain, stiffness, and swelling ? If directed, put ice on the painful area: ? Put ice in a plastic bag. ? Place a towel between your skin and the bag. ? Leave the ice on for 20 minutes, 2?3 times per day. Stop applying ice if it does not help with the pain. ? Squeeze a soft ball or a foam pad as much as possible. This helps to keep the shoulder from swelling. It also helps to strengthen the arm. General instructions ? Take fkma-mvo-lrmizig and prescription medicines only as told by your health care provider. ? Keep all follow-up visits as told by your health care provider. This is important. Contact a health care provider if: ? Your pain gets worse. ? Your pain is not relieved with medicines. ? New pain develops in your arm, hand, or fingers. Get help right away if: ? Your arm, hand, or fingers: ? Tingle. ? Become numb. ? Become swollen. ? Become painful. ? Turn white or blue. Summary ? Shoulder pain can be caused by an injury, overuse, or arthritis. ? Pay attention to changes in your symptoms. Let your health care provider know about them. ? This condition may be treated with a sling, ice, and pain medicines. ? Contact your health care provider if the pain gets worse or new pain develops. Get help right away if your arm, hand, or fingers tingle or become numb, swollen, or painful. ? Keep all follow-up visits as told by your health care provider. This is important. This information is not intended to replace advice given to you by your health care provider. Make sure you discuss any questions you have with your health care provider. Document Revised: 07/19/2022 Document Reviewed: 07/19/2022 [employer] Patient Education ? 2022 [employer] Muscle Strain A muscle strain is an [...] pain. Usually, recovery from muscle strain takes 1?2 weeks. Complete healing normally takes 5?6 weeks. What are the causes? This condition [...] or symptoms? Symptoms of this condition include: ? Pain. ? Tenderness. ? Bruising. ? Swelling. ? Trouble using the muscle. How is this diagnosed? This condition is diagnosed based on a physical exam and your medical history. Tests may also be done, including an X-ray, ultrasound, or MRI. How is this treated? This condition is initially treated with PALAFOX therapy. This therapy involves: ? Protecting the muscle from being injured again. ? Resting the injured muscle. ? Icing the injured muscle. ? Applying pressure (compression) to the injured muscle. This may be done with a splint or elastic bandage. ? Raising (elevating) the injured muscle. Your health care provider may also recommend medicine for pain. Follow these instructions at home: If you have a removable splint: ? Wear the splint as told by your health care provider. Remove it only as told by your health care provider. ? Check the skin around the splint every day. Tell your health care provider about any concerns. ? Loosen the splint if your fingers or toes tingle, become numb, or turn cold and blue. ? Keep the splint clean. ? If the splint is not waterproof: ? Do not let it get wet. ? Cover it with a watertight covering when you take a bath or a shower. Managing pain, stiffness, and swelling ? If directed, put ice on the injured area. To do this: ? If you have a removable splint, remove it as told by your health care provider. ? Put ice in a plastic bag. ? (more content not included)... Normal [facility] ED Patient Summaryon 023 ED Patient Summary [address] [address] Patient Discharge Instructions Person Information Name: YEYO AVILA Age: 67 Years Arrival Date: 07/13/2023 11:21:03 Discharge Diagnosis: Shoulder pain Primary Care Physician: Robin Ponce MD Provider Information Primary Provider: Zaki Muñoz M.D. [employer] Draw[employer] Maker:Mathew Montana PA-C The exam and treatment you received in the Emergency Department were for an urgent problem and are not intended as complete care. It is important that you follow up with a doctor, nurse practitioner, or physician?s chemist assistant for ongoing care. If your symptoms become worse or you do not improve as expected and you are unable to reach your usual health care provider, you should return to the Emergency Department. We are available 24 hours a day. YEYO AVILA has been given the following list of patient education materials, prescriptions and follow-up instructions: Follow-up Instructions: With: Address: When: Robin Ponce [facility] [place] [address] Business (1) In 3 days 07/16/2023 In the event that this physician does not participate in your insurance network, please consult with your insurance company to find a nearby participating provider. Patient Education Materials: Shoulder Pain; Muscle Strain A MESSAGE TO ALL PATIENTS REGARDING OPIOIDS PRESCRIPTION OPIOIDS: WHAT YOU NEED TO KNOW Prescription opioids can be used to help relieve crpvyfno-mh-dovcrr pain and are often prescribed following a surgery or injury, or for certain health conditions. These medications can be an important part of the treatment but also come with serious risks. It is important to work with your healthcare provider to make sure you are getting the safest, most effective care. WHAT ARE THE RISKS AND SIDE EFFECTS OF OPIOID USE? Prescription opioids carry serious risks of addiction and overdose, especially with prolonged use. An opioid overdose, often marked by slowed breathing, can cause sudden . The use of prescription opioids can have a number of side effects as well, even when taken as directed: ? Tolerance?meaning you might need to take more of the medication for the same pain relief ? Physical dependence?meaning you have symptoms of withdrawal when a medication is stopped ? Increased sensitivity to pain ? Constipation ? Nausea, vomiting, and dry mouth ? Sleepiness and dizziness ? Confusion ? Depression ? Low levels of testosterone that can result in lower sex drive, energy, and strength ? Itching and sweating RISKS ARE GREATER WITH: ? History of drug misuse, substance use disorder, or overdose ? Mental health conditions (such as depression or anxiety) ? Sleep apnea ? Older age (65 years and older) ? Avoid alcohol while taking prescription opioids. Also, unless specifically advised by your health care provider, medications to avoid include: ? Benzodiazepines (such as Xanax or Valium) ? Muscle relaxants (such as Soma or Flexeril) ? Hypnotics (such as Ambien or Lunesta) ? Other prescription opioids KNOW YOUR OPTIONS Talk to your health care provider about ways to manage your pain that don?t involve prescription opioids. Some of these options may actually work better and have fewer risks and side effects. Options may include: ? Pain relievers such as acetaminophen, ibuprofen, and naproxen ? Some medication that are also used for depression or seizures ? Physical therapy and exercise ? Cognitive behavioral therapy, a psychological, goal-directed approach, in which patients learn how to modify physical, behavioral, and emotional triggers of pain and stress. IF YOU ARE PRESCRIBED OPIOIDS FOR PAIN: ? Never take opioids in greater amounts or more often than prescribed. ? Follow up with your primary health care provider. o Work together to create a plan on how to manage your pain. o Talk about ways to help manage your pain that don?t involve prescription opioids. o Talk about any and all concerns and side effects. ? Help prevent misuse and abuse o Never sell or share prescription opioids. o Never use another person?s prescription opioids. ? Store prescription opioids in a secure place and out of reach of others (this may include visitors, children, friends, and family). ? Safely dispose of unused prescription opioids: Find your community drug take-back program or your pharmacy mail-back program, or flush them down the toilet, following guidance from the Food and Drug Administration (www.fda.gov/Drugs/R esourcesForYou). ? Visit www.cdc.gov/drugover dose to learn about the risks of opioids abuse and overdose. ? If you believe you may be struggling with addiction, tell your health critical care clinical nurse specialist and ask for guidance or call [facility] fl3ur Helpline at 4-368-453-ZBEH. (more content not included)... Normal [facility] Office Visiton 07-08-2023 Follow-up visit [id number] Yeyo Avila Allison 1955 Date Provider Department Center 07/08/2023 120-ALEXIA CLINE [facility] No family history on file Level of Service:35827 MS OFFICE/OUTPATIENT ESTABLISHED MOD MDM 30-39 MIN Reason for Visit and Comments: Hospital Follow-up [832] - Chest pain Normal [facility] Office Visiton 04-25-2023 Follow-up visit [id number] Yeyo Avila Allison 1955 Provider Department Center 04/25/2023 [id number] LOPEZ [facility] No family history on file Level of Service:02674 MS OFFICE/OUTPATIENT ESTABLISHED LOW MDM 20-29 MIN Normal [facility] POINT OF CARE GLUCOSEon 03-19 Glucose [Mass/Vol] 90 mg/dL Normal 74-106 [facility] Comment on above: Performed By: #### P OCGLUC #### [facility] [address] [place] [address] Dr. Win Ardon CARDIAC STRESS TESTon 2022 [...] reported nuclear myocardial perfusion imaging. Normal [facility] CBC AUTO DIFFon 04-01-2023 BASO # 0.1 103/ul Normal 0.0-0.1 [facility] Comment on above: Performed By: #### C BC #### [facility] [address] [place] [address] Dr. Win Ardon Basophils/100 WBC (Bld) 1.3 % Normal 0.2-2.0 [facility] Comment on above: Performed By: #### C BC #### [facility] [address] [place] [address] Dr. Win Ardon EO # 0.4 103/ul Normal 0.0-0.7 [facility] Comment on above: Performed By: #### C BC #### [facility] [address] [place] [address] Dr. Win Ardon Eosinophils/100 WBC (Bld) 4.1 % Normal 0.9-7.0 [facility] Comment on above: Performed By: #### C BC #### [facility] [address] [place] [address] Dr. Win Ardon Erythrocyte distribution width (RBC) [Ratio] 13.3 % Normal 11.0-15.0 [facility] Comment on above: Performed By: #### C BC #### [facility] [address] [place] [address] Dr. Win Ardon Hematocrit (Bld) [Volume fraction] 38.9 % Normal 36.0-48.0 [facility] Comment on above: Performed By: #### C BC #### [facility] [address] [place] [address] Dr. Win Ardon Hemoglobin (Bld) [Mass/Vol] 13.2 g/dL Normal 12.0-16.0 [facility] Comment on above: Performed By: #### C BC #### [facility] [address] [place] [address] Dr. Win Ardon IG # 0.04 10e3/ul Critically high 0.00-0.03 [facility] Comment on above: Performed By: #### C BC #### [facility] [address] [place] [address] Dr. Win Ardon IG % 0.4 % Normal 0.0-0.5 [facility] Comment on above: Performed By: #### C BC #### [facility] [address] [place] [address] Dr. Win Ardon LYMPH # 3.2 103/ul Normal 1.2-3.8 [facility] Comment on above: Performed By: #### C BC #### [facility] [address] [place] [address] Dr. Win Ardon Lymphocytes/100 WBC (Bld) 34.7 % Normal 20.5-60.0 [facility] Comment on above: Performed By: #### C BC #### [facility] [address] [place] [address] Dr. Win Ardon MANUAL DIFF REQ NO Normal [facility] Comment on above: Performed By: #### C BC #### [facility] [address] [place] [address] Dr. Win Ardon MCH (RBC) [Entitic mass] 31.3 pg Normal 26.7-34.0 [facility] Comment on above: Performed By: #### C BC #### [facility] [address] [place] [address] Dr. Win Ardon MCHC (RBC) [Mass/Vol] 33.9 g/dL Normal 29.9-35.2 [facility] Comment on above: Performed By: #### C BC #### [facility] [address] [place] [address] Dr. Win Ardon MCV (RBC) [Entitic vol] 92.2 fL Normal 81.0-99.0 [facility] Comment on above: Performed By: #### C BC #### [facility] [address] [place] [address] Dr. Win Ardon MONO # 0.7 103/ul Normal 0.3-0.8 [facility] Comment on above: Performed By: #### C BC #### [facility] [address] [place] [address] Dr. Win Ardon Monocytes/100 WBC (Bld) 7.1 % Normal 1.7-12.0 [facility] Comment on above: Performed By: #### C BC #### [facility] [address] [place] [address] Dr. Win Ardon NEUT # 4.9 103/ul Normal 1.4-6.5 [facility] Comment on above: Performed By: #### C BC #### [facility] [address] [place] [address] Dr. Win Ardon Neutrophils/100 WBC (Bld) 52.4 % Normal 43.0-75.0 [facility] Comment on above: Performed By: #### C BC #### [facility] [address] [place] [address] Dr. Win Ardon Platelet mean volume (Bld) [Entitic vol] 10.6 fL Normal 9.5-13.5 [facility] Comment on above: Performed By: #### C BC #### [facility] [address] [place] [address] Dr. Win Ardon PLT 231 103/ul Normal 150-450 [facility] Comment on above: Performed By: #### C BC #### [facility] [address] [place] [address] Dr. Win Ardon RBC 4.22 106/ul Normal 4.20-5.40 [facility] Comment on above: Performed By: #### C BC #### [facility] [address] [place] [address] Dr. Win Ardon WBC 9.3 103/ul Normal 4.0-11.0 [facility] Comment on above: Performed By: #### C BC #### [facility] [address] [address] ABD/PELVIS WO CONon [...] LISSETT ALAN Date: 2023-04-01 20:03 Normal [facility] LACTATE/LACTIC ACIDon 2022 Lactate [Moles/Vol] 1.2 mmol/L Normal 0.4-2.0 [facility] Comment on above: Performed By: #### L ACT #### [facility] [address] [place], [place] [address] Dr. 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 Order #: [id number] CLICK HERE TO VIEW EXAM RADIOLOGY REPORT [...] M.D. on 04/02/2023 at 11:10 Normal [facility] OCC BLD IMMUNO SCREENon 03-17 OCCULT BLOOD Positive Abnormal NEGATIVE [facility] Comment on above: Performed By: #### O BSCRN #### [facility] [address] [place], [place] [address] Dr. Win Ardon PROF 14(COMP METB)on 023 Albumin [Mass/Vol] 3.8 g/dL Normal 3.4-5.0 [facility] Comment on above: Performed By: #### C MP ####[facility] [address] [place], [place] [address]XiDr. Win Ardon Albumin/Globulin [Mass ratio] 1.1 {ratio} Normal [facility] Comment on above: Performed By: #### C MP ####[facility] [address] [place] [address]Dr. Win Duglas ALP [Catalytic activity/Vol] 99 U/L Normal 46-116 [facility] Comment on above: Performed By: #### C MP ####[facility] [address] [place] [address]Dr. Claudiaaida Duglas ALT [Catalytic activity/Vol] 17 U/L Normal 14-59 [facility] Comment on above: Performed By: #### C MP ####[facility] [address] [place] [address]Dr. Win Ardon Anion gap [Moles/Vol] 13.4 mmol/L Normal [facility] Comment on above: Performed By: #### C MP ####[facility] [address] [place], [place] [address]Dr. Win Ardon AST [Catalytic activity/Vol] 11 U/L Critically low 15-37 [facility] Comment on above: Performed By: #### C MP ####[facility] [address] [place], [place] [address]Dr. Win Ardon Bilirubin [Mass/Vol] 0.6 mg/dL Normal 0.2-1.0 [facility] Comment on above: Performed By: #### C MP ####[facility] [address] [place] [address]Dr. Win Ardon Calcium [Mass/Vol] 9.1 mg/dL Normal 8.5-10.1 [facility] Comment on above: Performed By: #### C MP ####[facility] [address] [place] [address]Dr. Win Ardon Chloride [Moles/Vol] 106 mmol/L Normal 98-107 [facility] Comment on above: Performed By: #### C MP ####[facility] [address] [address]Dr. Win Ardon CO2 [Moles/Vol] 29.2 mmol/L Normal 21.0-32.0 [facility] Comment on above: Performed By: #### C MP ####[facility] [address] [address]Dr. Win Ardon Creatinine [Mass/Vol] 0.95 mg/dL Normal 0.55-1.02 [facility] Comment on above: Performed By: #### C MP ####[facility] [address] [place] [id number]. Win Ardon EGFR-AF NEPALESE >60 Normal >=60 [facility] Comment on above: Performed By: #### C MP ####[facility] [address] [place] [id number]. Win Duglas EGFR-NON AF NEPALESE 59 mL/min/1.73m2 Critically low >=60 [facility] Comment on above: Performed By: #### C MP ####[facility] [address] [place] [address]Dr. Win Duglas Globulin (S) [Mass/Vol] 3.4 g/dL Normal [facility] Comment on above: Performed By: #### C MP ####[facility] [address] [place] [address]Dr. Win Duglas Glucose [Mass/Vol] 162 mg/dL Critically high 74-106 [facility] Comment on above: Performed By: #### C MP ####[facility] [address] [address]Dr. Win Duglas Potassium [Moles/Vol] 3.6 mmol/L Normal 3.5-5.1 [facility] Comment on above: Performed By: #### C MP ####[facility] [address] [place] [address]Dr. Win Duglas Protein [Mass/Vol] 7.2 g/dL Normal 6.4-8.2 [facility] Comment on above: Performed By: #### C MP ####[facility] [address] [place] [id number]. Claudiaaida Ardon Sodium [Moles/Vol] 145 mmol/L Normal 136-145 [facility] Comment on above: Performed By: #### C MP ####[facility] [address] [place], [place] [address]Dr. Win Ardon Urea nitrogen [Mass/Vol] 14.0 mg/dL Normal 7.0-18.0 [facility] Comment on above: Performed By: #### C MP ####[facility] [address] [place], [place] [address]Dr. Win Ardon Urea nitrogen/Creatinine [Mass ratio] 14.7 mg/mg Normal [facility] Comment on above: Performed By: #### C MP ####[facility] [address] [place], [place] [address]Dr. Win Duglas PROTIMEon 04-01-2023 INR Coag (PPP) [Relative time] 1.02 {INR} Normal [facility] Comment on above: Performed By: #### P TT, PT ####[facility] [address] [place], [place] [address]Dr. Win Ardon INR GUIDELINES SEE BELOW Normal [facility] Comment on above: Result Comment: MAGDA RED INR: 2.0 - 3.0 CONDITIONS NOT LISTED BELOW 2.5 - 3.5 FOR PROSTHETIC HEART VALVE REPLACEMENT 2.5 - 3.5 RECURRENT THROMBOSIS Performed By: #### P TT, PT ####[facility] [address] [place], [place] [address]Dr. Win Ardon PT Coag (PPP) [Time] 10.8 s Normal 9.0-11.6 [facility] Comment on above: Performed By: #### P TT, PT ####[facility] [address] [place], [place] [address]Dr. Win Ardon PTTon 04-01-2023 aPTT Coag (Bld) [Time] 26.5 s Normal 22.3-36.2 Th [facility] Comment on above: Performed By: #### P TT, PT ####[facility] [address] [place], [place] [address]Dr. Claudiaaida Ardon TYPE AND SCREENon 04-01-2023 TYPE AND SCREEN Negative Normal [facility] [place] Comment on above: Performed By: #### T NS ####[facility] [address] [place] [id number]. Win Ardon CBC AUTO DIFFon 03-24-2023 BASO # 0.1 103/ul Normal 0.0-0.1 [facility] Comment on above: Performed By: #### C BC ####[facility] [address] [place] [id number]. Win Duglas Basophils/100 WBC (Bld) 1.0 % Normal 0.2-2.0 [facility] Comment on above: Performed By: #### C BC ####[facility] [address] [place], [place] [address]Dr. Claudiaaida Ardon EO # 0.3 103/ul Normal 0.0-0.7 [facility] Comment on above: Performed By: #### C BC ####[facility] [address] [place], [place] [address]Dr. Claudiaaida Ardon Eosinophils/100 WBC (Bld) 3.3 % Normal 0.9-7.0 [facility] Comment on above: Performed By: #### C BC ####[facility] [address] [place], [place] [address]Dr. Win Ardon Erythrocyte distribution width (RBC) [Ratio] 13.2 % Normal 11.0-15.0 [facility] Comment on above: Performed By: #### C BC ####[facility] [address] [place], [place] [address]Dr. Win Ardon Hematocrit (Bld) [Volume fraction] 41.3 % Normal 36.0-48.0 [facility] Comment on above: Performed By: #### C BC ####[facility] [address] [place], [place] [address]Dr. Win Ardon Hemoglobin (Bld) [Mass/Vol] 13.6 g/dL Normal 12.0-16.0 [facility] Comment on above: Performed By: #### C BC ####[facility] [address] [place], [place] [address]Dr. Win Ardon IG # 0.04 10e3/ul Critically high 0.00-0.03 [facility] Comment on above: Performed By: #### C BC ####[facility] [address] [place] [id number]. Win Ardon IG % 0.4 % Normal 0.0-0.5 [facility] Comment on above: Performed By: #### C BC ####[facility] [address] [place] [id number]. Win Ardon LYMPH # 2.2 103/ul Normal 1.2-3.8 [facility] Comment on above: Performed By: #### C BC ####[facility] [address] [address]Dr. Win Ardon Lymphocytes/100 WBC (Bld) 23.8 % Normal 20.5-60.0 [facility] Comment on above: Performed By: #### C BC ####[facility] [address] [place], [place] [address]Dr. Win Ardon MANUAL DIFF REQ NO Normal [facility] [place] Comment on above: Performed By: #### C BC ####[facility] [address] [place] [id number]. Win Ardon MCH (RBC) [Entitic mass] 30.6 pg Normal 26.7-34.0 [facility] Comment on above: Performed By: #### C BC ####[facility] [address] [address]Dr. Win Ardon MCHC (RBC) [Mass/Vol] 32.9 g/dL Normal 29.9-35.2 [facility] Comment on above: Performed By: #### C BC ####[facility] [address] [address]Dr. Win Ardon MCV (RBC) [Entitic vol] 93.0 fL Normal 81.0-99.0 [facility] Comment on above: Performed By: #### C BC ####[facility] [address] [place], [place] [address]Dr. Win Ardon MONO # 0.7 103/ul Normal 0.3-0.8 [facility] Comment on above: Performed By: #### C BC ####[facility] [address] [place], [place] [address]Sb. Win Ardon Monocytes/100 WBC (Bld) 7.3 % Normal 1.7-12.0 [facility] Comment on above: Performed By: #### C BC ####[facility] [address] [place], [place] [address]Ma. Win Ardon NEUT # 5.8 103/ul Normal 1.4-6.5 [facility] Comment on above: Performed By: #### C BC ####[facility] [address] [place] [id number]. Win rAdon Neutrophils/100 WBC (Bld) 64.2 % Normal 43.0-75.0 [facility] Comment on above: Performed By: #### C BC ####[facility] [address] [place] [id number]. Win Ardon Platelet mean volume (Bld) [Entitic vol] 11.0 fL Normal 9.5-13.5 [facility] Comment on above: Performed By: #### C BC ####[facility] [address] [place] [id number]. Win Ardon PLT 243 103/ul Normal 150-450 [facility] Comment on above: Performed By: #### C BC ####[facility] [address] [place] [id number]. Win Ardon RBC 4.44 106/ul Normal 4.20-5.40 [facility] Comment on above: Performed By: #### C BC ####[facility] [address] [place] [id number]. Win Ardon WBC 9.1 103/ul Normal 4.0-11.0 [facility] Comment on above: Performed By: #### C BC ####[facility] [address] [place] [id number]. Win Ardon LIPID PROFILEon 03-24-2023 CHOL-HDL RATIO NORM SEE BELOW Normal [facility] Comment on above: Result Comment: 3.3 - 4.4 LOW RISK 4.4 - 7.1 AVERAGE RISK 7.1 - 11.0 MODERATE RISK >11.0 HIGH RISK Performed By: #### C MP, LIPID #### [facility] [address] [address] [address] Win Ardon Cholesterol [Mass/Vol] 99 mg/dL Normal <=200 [facility] Comment on above: Performed By: #### C MP, LIPID #### [facility] [address] [address] [address] Win Ardon Cholesterol in HDL [Mass/Vol] 34 mg/dL Critically low 40-60 [facility] Comment on above: Performed By: #### C MP, LIPID #### [facility] [address] [place] [address] Dr. Win Ardon Cholesterol in LDL [Mass/Vol] 35.8 mg/dL Normal [facility] Comment on above: Performed By: #### C MP, LIPID #### [facility] [address] [place] [address] Dr. Win Ardon Cholesterol.total/Chol esterol in HDL [Mass ratio] 2.9 {ratio} Normal [facility] Comment on above: Performed By: #### C MP, LIPID #### [facility] [address] [place] [address] Dr. Win Ardon HDL NORMAL > or = 60 mg/dl - LOW CARDIOVASCULAR RISK <40 mg/dl - HIGH CARDIOVASCULAR RISK Normal [facility] Comment on above: Performed By: #### C MP, LIPID #### [facility] [address] [place] [address] Dr. Win Ardon LDL CALC NORMAL SEE BELOW Normal [facility] Comment on above: Result Comment: <100 mg/dl OPTIMAL 100 - 129 mg/dl NEAR OR ABOVE OPTIMAL 130 - 159 mg/dl BORDERLINE HIGH 160 - 189 mg/dl HIGH >190 mg/dl VERY HIGH Performed By: #### C MP, LIPID #### [facility] [address] [place] [address] Dr. Win Ardon Triglyceride [Mass/Vol] 146 mg/dL Normal <=150 [facility] Comment on above: Performed By: #### C MP, LIPID #### [facility] [address] [place] [address] Dr. Win Ardon VLDL CALC 29.2 mg/dL Normal [facility] Comment on above: Performed By: #### C MP, LIPID #### [facility] [address] [place] [address] Dr. Win Ardon PROF 14(COMP METB)on 023 Albumin [Mass/Vol] 3.9 g/dL Normal 3.4-5.0 [facility] Comment on above: Performed By: #### C MP, LIPID #### [facility] [address] [place] [address] Dr. Win Ardon Albumin/Globulin [Mass ratio] 1.1 {ratio} Normal [facility] Comment on above: Performed By: #### C MP, LIPID #### [facility] [address] [place] [address] Dr. Win Ardon ALP [Catalytic activity/Vol] 96 U/L Normal 46-116 [facility] Comment on above: Performed By: #### C MP, LIPID #### [facility] [address] [place] [address] Dr. Win Ardon ALT [Catalytic activity/Vol] 15 U/L Normal 14-59 [facility] Comment on above: Performed By: #### C MP, LIPID #### [facility] [address] [place] [address] Dr. Win Ardon Anion gap [Moles/Vol] 12.1 mmol/L Normal [facility] Comment on above: Performed By: #### C MP, LIPID #### [facility] [address] [place] [address] Dr. Win Ardon AST [Catalytic activity/Vol] 10 U/L Critically low 15-37 [facility] Comment on above: Performed By: #### C MP, LIPID #### [facility] [address] [place] [address] Dr. Win Ardon Bilirubin [Mass/Vol] 0.8 mg/dL Normal 0.2-1.0 [facility] Comment on above: Performed By: #### C MP, LIPID #### [facility] [address] [address] [address] Win Ardon Calcium [Mass/Vol] 9.1 mg/dL Normal 8.5-10.1 [facility] Comment on above: Performed By: #### C MP, LIPID #### [facility] [address] [address] [address] Win Ardon Chloride [Moles/Vol] 102 mmol/L Normal 98-107 [facility] Comment on above: Performed By: #### C MP, LIPID #### [facility] [address] [address] [address] Win Ardon CO2 [Moles/Vol] 26.0 mmol/L Normal 21.0-32.0 [facility] Comment on above: Performed By: #### C MP, LIPID #### [facility] [address] [place] [address] Dr. Win Ardon Creatinine [Mass/Vol] 0.95 mg/dL Normal 0.55-1.02 [facility] Comment on above: Performed By: #### C MP, LIPID #### [facility] [address] [address] [address] Win Ardon EGFR-AF NEPALESE >60 Normal >=60 [facility] Comment on above: Performed By: #### C MP, LIPID #### [facility] [address] [place] [address] Dr. Win Ardon EGFR-NON AF NEPALESE 59 mL/min/1.73m2 Critically low >=60 [facility] Comment on above: Performed By: #### C MP, LIPID #### [facility] [address] [address] [address] Win Ardon Globulin (S) [Mass/Vol] 3.7 g/dL Normal [facility] Comment on above: Performed By: #### C MP, LIPID #### [facility] [address] [address] [address] Win Ardon Glucose [Mass/Vol] 336 mg/dL Critically high 74-[address] [facility] Comment on above: Performed By: #### C MP, LIPID #### [facility] [address] [address] [address] Win Ardon Potassium [Moles/Vol] 4.1 mmol/L Normal 3.5-5.1 [facility] Comment on above: Performed By: #### C MP, LIPID #### [facility] [address] [address] [address] Win Ardon Protein [Mass/Vol] 7.6 g/dL Normal 6.4-8.2 [facility] Comment on above: Performed By: #### C MP, LIPID #### [facility] [address] [address] [address] Win Ardon Sodium [Moles/Vol] 136 mmol/L Normal 136-145 [facility] Comment on above: Performed By: #### C MP, LIPID #### [facility] [address] [address] [address] Win Ardon Urea nitrogen [Mass/Vol] 10.0 mg/dL Normal 7.0-18.0 [facility] Comment on above: Performed By: #### C MP, LIPID #### [facility] [address] [address] [address] Win Ardon Urea nitrogen/Creatinine [Mass ratio] 10.5 mg/mg Normal [facility] Comment on above: Performed By: #### C MP, LIPID #### [facility] [address] [address] [address] Win Ardon Office Visiton 03-10-2023 Follow-up visit [id number] Yeyo Avila 1955 F Date Provider Department Center 03/10/2023 [id number]-[id number] LOPEZ [facility] No family history on file Level of Service:44082 MS OFFICE/OUTPATIENT ESTABLISHED MOD MDM 30-39 MIN Reason for Visit and Comments: Coronary Artery Disease [187] Hypertension [169626] aneurysm of thoracic aorta [Other] Normal [facility] CHEMISTRYOrdered By: Lab ROP User on 02-24-2023 Glucose [Mass/Vol] 144 mg/dL High 55 - 99 mg/dL [facility] POC Subsection Comment on above: Result Comment: Edilia arleth Meter POC Device SN [id number] Invalid Interpretation Code [facility] POC Subsection POC User ID [id number] Invalid Interpretation Code [facility] POC Subsection POC Username KRISTI MADDEN Invalid Interpretation Code [facility] POC Subsection Glucose [Mass/Vol] 76 mg/dL Normal 55 - 99 mg/dL [facility] POC Subsection Comment on above: Result Comment: Edilia arleth Meter POC Device SN [id number] Invalid Interpretation Code [facility] POC Subsection POC User ID [id number] Invalid Interpretation Code [facility] POC Subsection POC [...] 55 mL/min/1.73 m2 Low >=59mL/min/1 .73 m2 [facility] Chem S GFR/1.73 sq M.predicted among non-blacks MDRD (S/P/Bld) [Vol rate/Area] 45 mL/min/1.73 m2 Low >=59mL/min/1 .73 m2 [facility] Chem S Glucose [Mass/Vol] 102 mg/dL Normal [...] 38 mL/min/1.73 m2 Low >=59mL/min/1 .73 m2 [facility] Chem S Globulin (S) [Mass/Vol] 2.8 g/dL [...] - 20 [facility] Remisol COAGULATIONOrdered By: Soheila on Alice on 02-24-2023 aPTT Coag (PPP) [Time] 23.9 s Low 25.1 - 36.5 second(s) [facility] Auto Coag INR Coag (PPP) [Relative time] 1.2 {INR} Invalid Interpretation Code [facility] Auto Coag PT Coag (PPP) [Time] 13.7 s High 9.4 - 1 2.5 second(s) [facility] Auto Coag HEMATOLOGYOrdered By: SYSTEM SYSTEM on 02-24-2023 Basophils/100 [...] Result Comment: Slid e reviewed by AD. URINALYSISOrdered By: Dave Jenkins on 02-24-2023 Bacteria [...] Interpretation Code Negative [facility] UA Auto SS Hendron.plasma/Hendron .RBC (Bld) [Mass ratio] 21-30 /HPF Invalid [...] Desc Clean Catch (02/24/23 2:06 AM) Normal [facility] Auto SS Urobilinogen Qn (U) 0.2181268 {John'U}/dL Normal 0.0 - 1.0 EU/dL [facility] Auto SS WBC Auto Ql (U) Trace *ABN* (02/24/23 2:06 AM) Invalid Interpretation Code Negative [facility] UA Auto SS WBC casts LM.LPF (Urine sed) [#/Area] 4-10 (02/24/23 2:06 AM) Normal [facility] UA Auto SS WBC LM.HPF (Urine sed) [#/Area] 0-5 /HPF Normal 0-5/HPF [facility] UA Auto SS Covid-19 PCR ([facility])on 01-17 SARS-CoV-2 (COVID-19) RNA OSVALDO+probe Ql (Unsp spec) Not detected Normal NOT DETECTED [facility] Comment on above: Result Comment: This test is not yet approved or cleared by the [place] FDA. When there are no FDA-approved or cleared tests available, and other criteria are met, FDA can make tests available under an emergency access mechanism called an Emergency Use Authorization (EUA). The EUA for this test is supported by the [place] of Health and Human Service's (HHS's) declaration [...] SARS-CoV-2. Performed By: #### C VDTB #### [facility] [address] [place] [address] Dr. Win Ardon SYMPTOMATIC COVID-19 ANTIGEN on 02-14-2023 EUA Statement SEE BELOW Normal [facility] Comment on above: Result Comment: This [...] sooner. Performed By: #### C VDAGS #### [facility] [address] [place] [address] Dr. Win Ardon SARS-CoV-2 (COVID-19) RNA OSVALDO+probe Ql (Unsp spec) Negative Normal NEGATIVE [facility] Comment on above: Performed By: #### C VDAGS #### [facility] [address] [address] [address] Win Ardon XR KNEE RT 4V [...] MIKAEL GUZMAN Date: 2022-10-05 19:58 Normal [facility] Creatinine (Bld) [Mass/Vol]O rdered By: Ese Tan on 02-18-2022 Creatinine [Mass/Vol] 0.8 mg/dL 0.6-1.3 [facility] Comment on above: ER/ESD physician is notified/shown all ISTAT results.Critical values may be confirmed by laboratory testing ifdeemed necessary by ER attending doctor. ISTAT XRay CREon 02-18-2022 Creatinine [Mass/Vol] 0.8 mg/dL Normal 0.6-1.3 [facility] Comment on above: Result Comment: ER/E SD physician is notified/shown all ISTAT results. Critical values may be confirmed by laboratory testing if deemed necessary by ER attending doctor. Performed By: #### B SHIPYARD PAINTER APPRENTICE, PTT, CKMB, LIPASE, CK, TROP, CBC, PT, CMP #### [facility] [address] [place] [address] ISTAT GFR ( > 60 Normal [facility] Comment on above: Result Comment: GFR estimated reference range: According to KDOQI guidelines, <60 ml/min/1.73m2 is sufficient to diagnose a patient with chronic kidney disease. PERFORMED BY: [place] [address] PATHOLOGIST CALL CENTER REPRESENTATIVE WALDO WANG M.D. Performed By: #### B SHIPYARD PAINTER APPRENTICE, PTT, CKMB, LIPASE, CK, TROP, CBC, PT, CMP #### [facility] [address] [place] [address] ISTAT GFR (Non- Am > 60 Normal [facility] Comment on above: Performed By: #### B SHIPYARD PAINTER APPRENTICE, PTT, CKMB, LIPASE, CK, TROP, CBC, PT, CMP #### [facility] [address] [place] [address] MR abdomen wo/w conon 2021 MR abdomen wo/w con [facility] [address] [place] [address] MRI Report Signed Patient: Yeyo Avila MR#: [id number] : 1955 Acct:[id number] Age/Sex: 66 / F ADM Date: 02/18/22 Loc: MR Room: Type: [facility] Attending Dr: Ese Tan MD Ordering Provider: [...] Warren Jr., D.O.02/18/2022 4:02 PM Dictation Location: [address] [address] Transcribed By: [facility] 02/18/22 1602 Dictated By: Javi Warren Jr, DO 02/18/22 1556 Signed By: 02/18/22 1602 Normal [facility] No Panel InformationOrdered By: Ese Tan on 02-18-2022 POC Estimated GFR > 60 [facility] Comment on above: GFR estimated refere nce range: According to KDOQI guidelines, <60 ml/min/1.73m2 is sufficient to diagnose a patient with chronic kidney disease. POC Estimated GFR Non- Amer > 60 [facility] Cardiovascular Lab Reporton 03-22-2021 Cardiovascular Lab Report [facility] Patient Name: Margarita [facility] Yeyo Cooper MR #: [id number] Department of Physician: Radha Carter M.D. Division of Service Date: 03/21/2021 Cardiology Birthdate: 1955 Adult Cardiovascular Room #: [address] [place] [address] Cardiovascular Laboratory Report FINAL IMPRESSIONS: 1. 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 2. Patent stent in the second diagonal branch of the left anterior descending coronary artery with [id number] in-stent restenosis. 3. Otherwise, nonobstructive coronary arteries [...] Pardo M.D. Date Trans: 03/22/2021 05:11 A/yoel [id number]:[id number] cc: Alexia Cline, MSN, [facility]-C Department Of Surgery [place] [address] [facility] [address] Robin Ponce M.D. [address] [place] [address] [place] [facility] angio abdomen pelvison CT angio abdomen pelvis [facility] [address] [place] [address] [address] Scan Report Signed Patient: Yeyo Avila MR#: [id number] : 1955 Acct:[id number] Age/Sex: 65 / F ADM Date: 03/19/21 Loc: ER Room: Type: [facility] ER Attending Dr: Ordering Provider: Ismael Santillan DO Date of Service: 03/19/21 CT/CT angio chest: r/o dissection ([id number]) CT/CT angio abdomen pelvis: R/O DISSECTION Copies [...] Martinez Jr., M.D.03/20/2021 8:52 AM Dictation Location: [address] [address] Transcribed By: [facility] 03/20/2152 Dictated By: Gavin Martinez Jr, MD 03/20/2141 Signed By: 03/20/2152 Normal [facility] Dipstick and Microscopicon 0 03-20-2021 Appearance (U) Clear Normal Clear [facility] Comment on above: Order Comment: Name Collection Type:: Clean-Voided Midstream Performed By: #### A DDONUAPLUS #### [facility] [address] [place] [address] Bacteria,Urine None Seen Normal None Seen [facility] Comment on above: Order Comment: Name Collection Type:: Clean-Voided Midstream Performed By: #### A DDONUAPLUS #### [place] [address] [place] Bilirubin,Urine Negative Normal Negative [facility] Comment on above: Order Comment: Name Collection Type:: Clean-Voided Midstream Performed By: #### A DDONUAPLUS #### [place] [address] [place] Color (U) Yellow Normal Yellow [facility] Comment on above: Order Comment: Name Collection Type:: Clean-Voided Midstream Performed By: #### A DDONUAPLUS #### [facility] [address] [place] [address] [place] Glucose Ql (U) 500 mg/dL High Normal [facility] Comment on above: Order Comment: Name Collection Type:: Clean-Voided Midstream Performed By: #### A DDONUAPLUS #### [facility] [address] [place] [address] [place] Hyaline Casts,Urine 0-8 Normal 0-8 [facility] Comment on above: Order Comment: Name Collection Type:: Clean-Voided Midstream Result Comment: PERF ORMED BY: [place] [address] PATHOLOGIST CALL CENTER REPRESENTATIVE WALDO WANG M.D. Performed By: #### A DDONUAPLUS #### [facility] [address] [place] [address] [place] Ketones Ql (U) Trace High Negative [facility] Comment on above: Order Comment: Name Collection Type:: Clean-Voided Midstream Performed By: #### A DDONUAPLUS #### [facility] [address] [place] [address] Leukocyte esterase Test strip Ql (U) Negative Normal Negative [facility] Comment on above: Order Comment: Name Collection Type:: Clean-Voided Midstream Performed By: #### A DDONUAPLUS #### [facility] [address] [place] [address] [place] Nitrite,Urine Negative Normal Negative [facility] Comment on above: Order Comment: Name Collection Type:: Clean-Voided Midstream Performed By: #### A DDONUAPLUS #### [address] Occult Blood,Urine Negative Normal Negative [facility] Comment on above: Order Comment: Name Collection Type:: Clean-Voided Midstream Performed By: #### A DDONUAPLUS #### [facility] [address] [place] [address] [place] pH (U) 6.0 [pH] Normal 5.0-9.0 [facility] Comment on above: Order Comment: Name Collection Type:: Clean-Voided Midstream Performed By: #### A DDONUAPLUS #### [facility] [address] [place] [address] [place] Protein,Urine Trace High Negative [facility] Comment on above: Order Comment: Name Collection Type:: Clean-Voided Midstream Performed By: #### A DDONUAPLUS #### [facility] [address] [place] [address] [place] RBC,Urine 1-2 Normal 0-4 [facility] Comment on above: Order Comment: Name Collection Type:: Clean-Voided Midstream Performed By: #### A DDONUAPLUS #### [facility] [address] [place] [address] [place] Renal Epithelial Cells,Urine None Seen Normal 0-1 [facility] Comment on above: Order Comment: Name Collection Type:: Clean-Voided Midstream Performed By: #### A DDONUAPLUS #### [facility] [address] [place] [address] Specificy [place],Urine > 1.050 High 1.001-1.030 [facility] Comment on above: Order Comment: Name Collection Type:: Clean-Voided Midstream Performed By: #### A DDONUAPLUS #### [address] Squamous Epithelial Cell,Urine 3-4 High 0-2 [facility] Comment on above: Order Comment: Name Collection Type:: Clean-Voided Midstream Performed By: #### A DDONUAPLUS #### [address] Urobilinogen,Urine Normal Normal Normal [facility] Comment on above: Order Comment: Name Collection Type:: Clean-Voided Midstream Performed By: #### A DDONUAPLUS #### [facility] [address] [place] [address] WBC,Urine 1-2 Normal 0-4 [facility] Comment on above: Order Comment: Name Collection Type:: Clean-Voided Midstream Performed By: #### A DDONUAPLUS #### [address] ECG 12 lead ECGon 03-20-2021 ECG 12 lead ECG [facility] [place] [address] Electrocardiograph Report Signed Patient: Yeyo Avila MR#: [id number] : 1955 Acct:[id number] Age/Sex: 65 / F ADM Date: 03/19/21 Loc: ER Room: Type: [facility] ER Attending Dr: Ordering Provider: Ismael [...] Cooper MD 03/19/212224 Signed By: 03/21/21 0905 [facility] XR chest 2V*on 03-20-2021 XR chest 2V* [facility] [place] [address] XRay Report Signed Patient: Yeyo Avila MR#: [id number] : 1955 Acct:[id number] Age/Sex: 65 / F ADM Date: 03/19/21 Loc: ER Room: Type: [facility] ER Attending Dr: Ordering Provider: Ismael [...] Martinez Jr., M.D.03/20/2021 8:53 AM Dictation Location: [place] [address] Transcribed By: [facility] 03/20/21 0853 Dictated By: Gavin Martinez Jr, MD 03/20/21 0852 Signed By: 03/20/21 0853 [facility] B-Type Natriuretic Peptideon 03-19-2021 Natriuretic peptide B (Bld) [Mass/Vol] 30.0 pg/mL Normal 5-100 [facility] Comment on above: Result Comment: PERF ORMED BY: [place] [address] PATHOLOGIST CALL CENTER REPRESENTATIVE WALDO WANG M.D. Performed By: #### B SHIPYARD PAINTER APPRENTICE, PTT, CKMB, LIPASE, CK, TROP, CBC, PT, CMP #### [address] Complete Blood Count Auto Di ffon 03-19-2021 Basophils (Bld) [#/Vol] 0.2 10*3/uL Normal 0.0-0.2 [facility] Comment on above: Result Comment: PERF ORMED BY: [place] [address] PATHOLOGIST CALL CENTER REPRESENTATIVE WALDO WANG M.D. Performed By: #### B SHIPYARD PAINTER APPRENTICE, PTT, CKMB, LIPASE, CK, TROP, CBC, PT, CMP #### [address] Basophils/100 WBC (Bld) 0.9 % Normal . [facility] Comment on above: Performed By: #### B SHIPYARD PAINTER APPRENTICE, PTT, CKMB, LIPASE, CK, TROP, CBC, PT, CMP #### [address] Eosinophils (Bld) [#/Vol] 0.2 10*3/uL Normal 0.0-0.45 [facility] Comment on above: Performed By: #### B SHIPYARD PAINTER APPRENTICE, PTT, CKMB, LIPASE, CK, TROP, CBC, PT, CMP #### [address] Eosinophils/100 WBC (Bld) 1.1 % Normal . [facility] Comment on above: Performed By: #### B SHIPYARD PAINTER APPRENTICE, PTT, CKMB, LIPASE, CK, TROP, CBC, PT, CMP #### [address] Erythrocyte distribution width (RBC) [Ratio] 13.7 % Normal 11.9-15.3 [facility] Comment on above: Performed By: #### B SHIPYARD PAINTER APPRENTICE, PTT, CKMB, LIPASE, CK, TROP, CBC, PT, CMP #### [address] Hematocrit (Bld) [Volume fraction] 43.7 % Normal 34.0-46.4 [facility] Comment on above: Performed By: #### B SHIPYARD PAINTER APPRENTICE, PTT, CKMB, LIPASE, CK, TROP, CBC, PT, CMP #### [address] Hemoglobin (Bld) [Mass/Vol] 14.8 g/dL Normal 11.8-15.4 [facility] Comment on above: Performed By: #### B SHIPYARD PAINTER APPRENTICE, PTT, CKMB, LIPASE, CK, TROP, CBC, PT, CMP #### [address] Lymphocytes (Bld) [#/Vol] 4.2 10*3/uL Normal 1.00-4.8 [facility] Comment on above: Performed By: #### B SHIPYARD PAINTER APPRENTICE, PTT, CKMB, LIPASE, CK, TROP, CBC, PT, CMP #### [address] Lymphocytes/100 WBC (Bld) 23.0 % Normal . [facility] Comment on above: Performed By: #### B SHIPYARD PAINTER APPRENTICE, PTT, CKMB, LIPASE, CK, TROP, CBC, PT, CMP #### [address] MCH (RBC) [Entitic mass] 29.8 pg Normal 24.7-34.3 [facility] Comment on above: Performed By: #### B SHIPYARD PAINTER APPRENTICE, PTT, CKMB, LIPASE, CK, TROP, CBC, PT, CMP #### [address] MCV (RBC) [Entitic vol] 87.7 fL Normal 80-100 [facility] Comment on above: Performed By: #### B SHIPYARD PAINTER APPRENTICE, PTT, CKMB, LIPASE, CK, TROP, CBC, PT, CMP #### [address] Mean Corpuscular HGB Conc 33.9 g/dL Normal 32.0-35.0 [facility] Comment on above: Performed By: #### B SHIPYARD PAINTER APPRENTICE, PTT, CKMB, LIPASE, CK, TROP, CBC, PT, CMP #### [address] Monocytes (Bld) [#/Vol] 1.1 10*3/uL High 0.0-0.8 [facility] Comment on above: Performed By: #### B SHIPYARD PAINTER APPRENTICE, PTT, CKMB, LIPASE, CK, TROP, CBC, PT, CMP #### [address] Monocytes/100 WBC (Bld) 6.1 % Normal . [facility] Comment on above: Performed By: #### B SHIPYARD PAINTER APPRENTICE, PTT, CKMB, LIPASE, CK, TROP, CBC, PT, CMP #### [address] Neutrophils (Bld) [#/Vol] 12.4 10*3/uL High 1.8-7.7 [facility] Comment on above: Performed By: #### B SHIPYARD PAINTER APPRENTICE, PTT, CKMB, LIPASE, CK, TROP, CBC, PT, CMP #### [address] Neutrophils/100 WBC (Bld) 68.9 % Normal . [facility] Comment on above: Performed By: #### B SHIPYARD PAINTER APPRENTICE, PTT, CKMB, LIPASE, CK, TROP, CBC, PT, CMP #### [place] [address] [place] Nucleated RBC/100 WBC (Bld) [Ratio] 0.2 % Normal 0-0.5 [facility] Comment on above: Performed By: #### B SHIPYARD PAINTER APPRENTICE, PTT, CKMB, LIPASE, CK, TROP, CBC, PT, CMP #### [address] Platelet mean volume (Bld) [Entitic vol] 9.2 fL Normal 6.3-10.7 [facility] Comment on above: Performed By: #### B SHIPYARD PAINTER APPRENTICE, PTT, CKMB, LIPASE, CK, TROP, CBC, PT, CMP #### [address] Platelets (Bld) [#/Vol] 340 10*3/uL Normal 150-450 [facility] Comment on above: Performed By: #### B SHIPYARD PAINTER APPRENTICE, PTT, CKMB, LIPASE, CK, TROP, CBC, PT, CMP #### [address] RBC (Bld) [#/Vol] 4.98 10*6/uL Normal 3.60-5.00 [facility] Comment on above: Performed By: #### B SHIPYARD PAINTER APPRENTICE, PTT, CKMB, LIPASE, CK, TROP, CBC, PT, CMP #### [address] WBC (Bld) [#/Vol] 18.0 10*3/uL High 4.5-11.0 [facility] Comment on above: Performed By: #### B SHIPYARD PAINTER APPRENTICE, PTT, CKMB, LIPASE, CK, TROP, CBC, PT, CMP #### [address] Comprehensive Metabolic Pane talia 03-19-2021 Albumin [Mass/Vol] 4.7 g/dL Normal 3.2-5.5 [facility] Comment on above: Performed By: #### B SHIPYARD PAINTER APPRENTICE, PTT, CKMB, LIPASE, CK, TROP, CBC, PT, CMP #### [address] Albumin/Globulin [Mass ratio] 1.4 {ratio} Normal [facility] Comment on above: Performed By: #### B SHIPYARD PAINTER APPRENTICE, PTT, CKMB, LIPASE, CK, TROP, CBC, PT, CMP #### [address] ALP [Catalytic activity/Vol] 83 U/L Normal 32-92 [facility] Comment on above: Performed By: #### B SHIPYARD PAINTER APPRENTICE, PTT, CKMB, LIPASE, CK, TROP, CBC, PT, CMP #### [address] ALT [Catalytic activity/Vol] 15 U/L Normal 10-60 [facility] Comment on above: Performed By: #### B SHIPYARD PAINTER APPRENTICE, PTT, CKMB, LIPASE, CK, TROP, CBC, PT, CMP #### [facility] [address] AST [Catalytic activity/Vol] 15 U/L Normal 10-42 [facility] Comment on above: Performed By: #### B SHIPYARD PAINTER APPRENTICE, PTT, CKMB, LIPASE, CK, TROP, CBC, PT, CMP #### [facility] [address] Bilirubin [Mass/Vol] 1.6 mg/dL High 0.3-1.2 [facility] Comment on above: Result Comment: Samp les from patients who have taken Naproxen have shown spurious elevation in Total Bilirubin levels. A metabolite of Naproxen, O-desmethylnaproxen, has been shown to interfere with the Jendrkasiik-Grof method for measuring Total Bilirubin. Performed By: #### B SHIPYARD PAINTER APPRENTICE, PTT, CKMB, LIPASE, CK, TROP, CBC, PT, CMP #### [address] Calcium [Mass/Vol] 10.1 mg/dL Normal 8.2-10.2 [facility] Comment on above: Performed By: #### B SHIPYARD PAINTER APPRENTICE, PTT, CKMB, LIPASE, CK, TROP, CBC, PT, CMP #### [address] Chloride [Moles/Vol] 99 mmol/L Normal 95-114 [facility] Comment on above: Performed By: #### B SHIPYARD PAINTER APPRENTICE, PTT, CKMB, LIPASE, CK, TROP, CBC, PT, CMP #### [address] CO2 [Moles/Vol] 23.1 mmol/L Normal 22.0-30.0 [facility] Comment on above: Performed By: #### B SHIPYARD PAINTER APPRENTICE, PTT, CKMB, LIPASE, CK, TROP, CBC, PT, CMP #### [place] [address] [place] Creatinine [Mass/Vol] 1.07 mg/dL High 0.44-1.03 [facility] Comment on above: Performed By: #### B SHIPYARD PAINTER APPRENTICE, PTT, CKMB, LIPASE, CK, TROP, CBC, PT, CMP #### [facility] [address] Creatinine Clr Calc Pharmacy 64.26 [facility] Comment on above: Performed By: #### B SHIPYARD PAINTER APPRENTICE, PTT, CKMB, LIPASE, CK, TROP, CBC, PT, CMP #### [facility] [address] Estimated GFR ( [place] > 60 [facility] Comment on above: Result Comment: GFR estimated reference range: According to KDOQI guidelines, <60 ml/min/1.73m2 is sufficient to diagnose a patient with chronic kidney disease. Performed By: #### B SHIPYARD PAINTER APPRENTICE, PTT, CKMB, LIPASE, CK, TROP, CBC, PT, CMP #### [address] Estimated GFR (Non- Am 52 [facility] Comment on above: Performed By: #### B SHIPYARD PAINTER APPRENTICE, PTT, CKMB, LIPASE, CK, TROP, CBC, PT, CMP #### [address] Globulin (S) [Mass/Vol] 3.3 g/dL [facility] Comment on above: Performed By: #### B SHIPYARD PAINTER APPRENTICE, PTT, CKMB, LIPASE, CK, TROP, CBC, PT, CMP #### [address] Glucose [Mass/Vol] 264 mg/dL High 70-100 [facility] Comment on above: Result Comment: [place] om Glucose Reference Range is dependent on time and content of last meal. Glucose of more than 200 mg/dL in a nonstressed, ambulatory subject supports the diagnosis of Diabetes Mellitus. ADA recommended reference range Performed By: #### B SHIPYARD PAINTER APPRENTICE, PTT, CKMB, LIPASE, CK, TROP, CBC, PT, CMP #### [facility] [address] Potassium [Moles/Vol] 3.8 mmol/L Normal 3.5-5.1 [facility] Comment on above: Performed By: #### B SHIPYARD PAINTER APPRENTICE, PTT, CKMB, LIPASE, CK, TROP, CBC, PT, CMP #### [facility] [address] Protein [Mass/Vol] 8.0 g/dL High 6.1-7.9 [facility] Comment on above: Performed By: #### B SHIPYARD PAINTER APPRENTICE, PTT, CKMB, LIPASE, CK, TROP, CBC, PT, CMP #### [facility] [address] Sodium [Moles/Vol] 137 mmol/L Normal 136-146 [facility] Comment on above: Performed By: #### B SHIPYARD PAINTER APPRENTICE, PTT, CKMB, LIPASE, CK, TROP, CBC, PT, CMP #### [address] Urea nitrogen [Mass/Vol] 29 mg/dL High 9-23 [facility] Comment on above: Performed By: #### B SHIPYARD PAINTER APPRENTICE, PTT, CKMB, LIPASE, CK, TROP, CBC, PT, CMP #### [address] Creatine Kinaseon 03-19-2021 CK [Catalytic activity/Vol] 42 U/L Normal 22-269 [facility] Comment on above: Performed By: #### B SHIPYARD PAINTER APPRENTICE, PTT, CKMB, LIPASE, CK, TROP, CBC, PT, CMP #### [address] Creatinine Kinase MBon 03-19 CK.MB [Mass/Vol] 1.3 ng/mL Normal 0.6-6.3 [facility] Comment on above: Performed By: #### B SHIPYARD PAINTER APPRENTICE, PTT, CKMB, LIPASE, CK, TROP, CBC, PT, CMP #### [address] CKMB Relative Index 3.0 % High 0.00-2.50 [facility] Comment on above: Performed By: #### B SHIPYARD PAINTER APPRENTICE, PTT, CKMB, LIPASE, CK, TROP, CBC, PT, CMP #### [facility] [address] [place] [address] ECG 12 lead ECGon 03-19-2021 ECG 12 lead ECG [facility] Main [employer] [address] [place] [id number] Electrocardiograph Report Signed Patient: Yeyo Avila MR#: [id number] : 1955 Acct:[id number] Age/Sex: 65 / F ADM Date: 03/19/21 Loc: ER Room: Type: [facility] ER Attending Dr: Ordering Provider: Ismael [...] MD 03/19/212112 Signed By: 03/21/21 0905 Normal [facility] Lipaseon 03-19-2021 Lipase [Catalytic activity/Vol] 21.0 U/L Low 22-51 [facility] Comment on above: Result Comment: PERF ORMED BY: [place] [address] PATHOLOGIST CALL CENTER REPRESENTATIVE WALDO WANG M.D. Performed By: #### B SHIPYARD PAINTER APPRENTICE, PTT, CKMB, LIPASE, CK, TROP, CBC, PT, CMP #### [address] Partial Thromboplastin Timeo n 03-19-2021 aPTT Coag (Bld) [Time] 26.1 s Normal 25.1-36.5 [facility] Comment on above: Result Comment: PERF ORMED BY: [address] [place] [address] PATHOLOGIST CALL CENTER REPRESENTATIVE WALDO WANG M.D. Performed By: #### B SHIPYARD PAINTER APPRENTICE, PTT, CKMB, LIPASE, CK, TROP, CBC, PT, CMP #### [facility] [address] Prothrombin Time INRon 03-19 INR Coag (PPP) [Relative time] 1.2 {INR} Normal [facility] Comment on above: Result Comment: INR Therapeutic [...] 3 - 4.5 Performed By: #### B SHIPYARD PAINTER APPRENTICE, PTT, CKMB, LIPASE, CK, TROP, CBC, PT, CMP #### [facility] [address] PT Coag (PPP) [Time] 13.6 s High 9.0-12.9 [facility] Comment on above: Performed By: #### B SHIPYARD PAINTER APPRENTICE, PTT, CKMB, LIPASE, CK, TROP, CBC, PT, CMP #### [address] Troponin I(TnI)on 03-19-2021 Troponin I.cardiac [Mass/Vol] ng/mL Normal 0-0.02 [facility] Comment on above: Result Comment: EBONY IN Cut off value > or equal to 0.03 ng/mL in conjunction with clinical conditions of myocardial infarction. (www.escardio.org/guidelines) PERFORMED BY: [address] [place] [address] PATHOLOGIST CALL CENTER REPRESENTATIVE WALDO WANG M.D. Performed By: #### B SHIPYARD PAINTER APPRENTICE, PTT, CKMB, LIPASE, CK, TROP, CBC, PT, CMP #### [address] [place] [address] [facility] Basic Metab w/rfx MGon 09-01 (cont.) Normal [facility] Comment on above: Result Comment: Aver age GFR for 60-69 years old: 85 mL/min/1.73sq m Chronic Kidney Disease: <60 mL/min/1.73sq m Kidney failure: <15 mL/min/1.73sq m eGFR calculated using average adult body mass. Additional eGFR calculator available at: http://www.Pervasip/multiple_crcl_2012.htm Performed By: #### E RTPF #### [address] [address] Line Department Supervisor: Dheeraj Garcia MD Anion gap [Moles/Vol] 13 mmol/L Normal 9-17 [facility] Comment on above: Performed By: #### E RTPF #### [address] [address] Line Department Supervisor: Dheeraj Garcia MD Calcium [Mass/Vol] 8.8 mg/dL Normal 8.6-10.4 [facility] Comment on above: Performed By: #### E RTPF #### [address] [address] Line Department Supervisor: Dheeraj Garcia MD Chloride [Moles/Vol] 106 mmol/L Normal 98-107 [facility] Comment on above: Performed By: #### E RTPF #### [address] [address] Line Department Supervisor: Dheeraj Garcia MD CO2 [Moles/Vol] 21 mmol/L Normal 20-31 [facility] Comment on above: Performed By: #### E RTPF #### [address] [address] Line Department Supervisor: Dheeraj Garcia MD Creatinine [Mass/Vol] 0.53 mg/dL Normal 0.50-0.90 [facility] Comment on above: Performed By: #### E RTPF #### [address] [address] Line Department Supervisor: Dheeraj Garcia MD GFR, Amer >60 Normal >60 [facility] Comment on above: Performed By: #### E RTPF #### [address] [address] Line Department Supervisor: Dheeraj Garcia MD GFR,non Amer >60 Normal >60 [facility] Comment on above: Performed By: #### E RTPF #### [address] [address] Line Department Supervisor: Dheeraj Garcia MD Glucose [Mass/Vol] 169 mg/dL High 70-99 [facility] Comment on above: Performed By: #### E RTPF #### [address] [address] Line Department Supervisor: Dheeraj Garcia MD Potassium [Moles/Vol] 4.0 mmol/L Normal 3.7-5.3 [facility] Comment on above: Performed By: #### E RTPF #### [address] [address] Line Department Supervisor: Dheeraj Garcia MD Sodium [Moles/Vol] 140 mmol/L Normal 135-144 [facility] Comment on above: Performed By: #### E RTPF #### [address] [address] Line Department Supervisor: Dheeraj Garcia MD Urea nitrogen [Mass/Vol] 10 mg/dL Normal 8-23 [facility] Comment on above: Performed By: #### E RTPF #### [address] [address] Line Department Supervisor: Dheeraj Garcia MD BUN/CRE Ratio NOT REPORTED Normal - [facility] Comment on above: Performed By: #### E RTPF #### [facility] [employer] [address] [place], [place] [phone] Line Department Supervisor: Dheeraj Garcia MD Staging: NOT REPORTED Normal [facility] Comment on above: Performed By: #### E RTPF #### [facility] [employer] [address] [place], [place] [id number] Line Department Supervisor: Dheeraj Garcia MD Basic Metabolic Panel w/ Ref martín to MGon 09-01-2020 Anion gap [Moles/Vol] 13 mmol/L 9 - 17 mmol/L [place] Bun/Cre Ratio NOT REPORTED [place], [place] Calcium [Mass/Vol] 8.8 mg/dL 8.6 - 10. 4 mg/dL [place] Chloride [Moles/Vol] 106 mmol/L 98 - 10 7 mmol/L [place] CO2 [Moles/Vol] 21 mmol/L 20 - 31 mmol/L [place] Creatinine [Mass/Vol] 0.53 mg/dL 0.5 - 0.9 mg/dL [place] GFR >60 >60 mL/min [place] GFR Non- >60 >60 mL/min [place] GFR/1.73 sq M predicted among non-blacks MDRD (S/P/Bld) [Vol rate/Area] [place] Comment on above: Average GFR for 60-6 9 years old: 85 mL/min/1.73sq m Chronic Kidney Disease: <60 mL/min/1.73sq m Kidney failure: <15 mL/min/1.73sq m eGFR calculated using average adult body mass. Additional eGFR calculator available at: http://www.Dynamics Direct.Namely/multiple_crcl_2012.htm GFR/1.73 sq M predicted among non-blacks MDRD (S/P/Bld) [Vol rate/Area] NOT REPORTED [place] Glucose [Mass/Vol] 169 mg/dL High 70 - 99 mg/dL [place] Interpretation and review of laboratory results Abnormal [place] Potassium [Moles/Vol] 4.0 mmol/L 3.7 - 5.3 mmol/L [place] Sodium [Moles/Vol] 140 mmol/L 135 - 144 mmol/L [place] Urea nitrogen [Mass/Vol] 10 mg/dL 8 - 23 mg/dL [place] CBC auto differentialon 10 Basophils (Bld) [#/Vol] 0.10 10*3/uL [place] Basophils/100 WBC (Bld) 1 % 0 - 2 % [place] Differential Type NOT REPORTED [place] Eosinophils (Bld) [#/Vol] 0.25 10*3/uL [place] Eosinophils/100 WBC (Bld) 3 % 1 - 4 % [place] Erythrocyte distribution width (RBC) [Ratio] 14.0 % 11.8 - 14.4 % [place] Hematocrit (Bld) [Volume fraction] 40.7 % 36.3 - 47.1 % [place] Hemoglobin (Bld) [Mass/Vol] 12.7 g/dL 11.9 - 15.1 g/dL [place] Immature granulocytes (Bld) [#/Vol] 0.06 10*3/uL [place] Immature granulocytes (Bld) [#/Vol] 1 % High 0 [place] Interpretation and review of laboratory results Abnormal [place] Lymphocytes (Bld) [#/Vol] 2.12 10*3/uL [place] Lymphocytes/100 WBC (Bld) 23 % Low 24 - 43 % [place] MCH (RBC) [Entitic mass] 28.1 pg 25.2 - 33.5 pg [place] MCHC (RBC) [Mass/Vol] 31.2 g/dL 28.4 - 34.8 g/dL [place] MCV (RBC) [Entitic vol] 90.0 fL 82.6 - 102.9 fL [place] Monocytes (Bld) [#/Vol] 0.68 10*3/uL [place] Monocytes/100 WBC (Bld) 7 % 3 - 12 % [place] Platelet mean volume (Bld) [Entitic vol] 10.6 fL 8.1 - 13.5 fL [place] Platelets (Bld) [#/Vol] NOT REPORTED [place] Platelets (Bld) [#/Vol] 251 10*3/uL [place] RBC (Bld) [#/Vol] 4.52 10*6/uL 3.95 - 5.1 1 m/uL [place] RBC morphology finding Nom (Bld) NOT REPORTED [place] Segmented neutrophils/100 WBC (Bld) 65 % 36 - 65 % [place] Segs Absolute 6.18 [place] WBC (Bld) [#/Vol] 0.0 10*3/uL 0.0 per 10 0 WBC [place] WBC (Bld) [#/Vol] 9.4 10*3/uL [place] WBC Morphology NOT REPORTED [place], [place] CBC with Diffon 09-01-2020 Abs. Basophil 0.10 k/uL Normal 0.00-0.20 [facility] Comment on above: Performed By: #### C DP, HCG, ALCB, BMPX, LIPR, GLYHGB #### [facility] [employer] [address] [place] [address] Line Department Supervisor: Dheeraj Garcia MD Abs.Imm.Granulocyte 0.06 k/uL Normal 0.00-0.30 [facility] Comment on above: Performed By: #### C DP, HCG, ALCB, BMPX, LIPR, GLYHGB #### [facility] [employer] [facility] [place], [place] [phone] Line Department Supervisor: Dheeraj Garcia MD Abs.Neutrophil (Seg) 6.18 k/uL Normal 1.50-8.10 [facility] Comment on above: Performed By: #### C DP, HCG, ALCB, BMPX, LIPR, GLYHGB #### [place] [address] Line Department Supervisor: Dheeraj Garcia MD Basophils/100 WBC (Bld) 1 % Normal 0-2 [facility] Comment on above: Performed By: #### C DP, HCG, ALCB, BMPX, LIPR, GLYHGB #### [place] [address] Line Department Supervisor: Dheeraj Garcia MD Eosinophils (Bld) [#/Vol] 0.25 10*3/uL Normal 0.00-0.44 [facility] Comment on above: Performed By: #### C DP, HCG, ALCB, BMPX, LIPR, GLYHGB #### [place] [address] Line Department Supervisor: Dheeraj Garcia MD Eosinophils/100 WBC (Bld) 3 % Normal 1-4 [facility] Comment on above: Performed By: #### C DP, HCG, ALCB, BMPX, LIPR, GLYHGB #### [place] [address] Line Department Supervisor: Dheeraj Garcia MD Erythrocyte distribution width (RBC) [Ratio] 14.0 % Normal 11.8-14.4 [facility] Comment on above: Performed By: #### C DP, HCG, ALCB, BMPX, LIPR, GLYHGB #### [place] [address] Line Department Supervisor: Dheeraj Garcia MD Hematocrit (Bld) [Volume fraction] 40.7 % Normal 36.3-47.1 [facility] Comment on above: Performed By: #### C DP, HCG, ALCB, BMPX, LIPR, GLYHGB #### [address] [address] Line Department Supervisor: Dheeraj Garcia MD Hemoglobin (Bld) [Mass/Vol] 12.7 g/dL Normal 11.9-15.1 [facility] Comment on above: Performed By: #### C DP, HCG, ALCB, BMPX, LIPR, GLYHGB #### [address] [address] Line Department Supervisor: Dheeraj Garcia MD Immature granulocytes (Bld) [#/Vol] 1 % High 0 [facility] Comment on above: Performed By: #### C DP, HCG, ALCB, BMPX, LIPR, GLYHGB #### [address] [address] Line Department Supervisor: Dheeraj Garcia MD Lymphocytes (Bld) [#/Vol] 2.12 10*3/uL Normal 1.10-3.70 [facility] Comment on above: Performed By: #### C DP, HCG, ALCB, BMPX, LIPR, GLYHGB #### [address] [address] Line Department Supervisor: Dheeraj Garcia MD Lymphocytes/100 WBC (Bld) 23 % Low 24-43 [facility] Comment on above: Performed By: #### C DP, HCG, ALCB, BMPX, LIPR, GLYHGB #### [address] [address] Line Department Supervisor: Dheeraj Garcia MD MCH (RBC) [Entitic mass] 28.1 pg Normal 25.2-33.5 [facility] Comment on above: Performed By: #### C DP, HCG, ALCB, BMPX, LIPR, GLYHGB #### [facility] [employer] [address] [place] [address] Line Department Supervisor: Dheeraj Garcia MD MCHC (RBC) [Mass/Vol] 31.2 g/dL Normal 28.4-34.8 [facility] Comment on above: Performed By: #### C DP, HCG, ALCB, BMPX, LIPR, GLYHGB #### [address] [address] Line Department Supervisor: Dheeraj Garcia MD MCV (RBC) [Entitic vol] 90.0 fL Normal 82.6-102.9 [facility] Comment on above: Performed By: #### C DP, HCG, ALCB, BMPX, LIPR, GLYHGB #### [place] [address] Line Department Supervisor: Dheeraj Garcia MD Monocytes (Bld) [#/Vol] 0.68 10*3/uL Normal 0.10-1.20 [facility] Comment on above: Performed By: #### C DP, HCG, ALCB, BMPX, LIPR, GLYHGB #### [place] [address] Line Department Supervisor: Dheeraj Garcia MD Monocytes/100 WBC (Bld) 7 % Normal 3-12 [facility] Comment on above: Performed By: #### C DP, HCG, ALCB, BMPX, LIPR, GLYHGB #### [place] [address] Line Department Supervisor: Dheeraj Garcia MD Neutrophil (Seg) 65 % Normal 36-65 [facility] Comment on above: Performed By: #### C DP, HCG, ALCB, BMPX, LIPR, GLYHGB #### [place] [address] Line Department Supervisor: Dheeraj Garcia MD NRBC Automated 0.0 per 100 WBC Normal 0.0 [facility] Comment on above: Performed By: #### C DP, HCG, ALCB, BMPX, LIPR, GLYHGB #### [address] [address] Line Department Supervisor: Dheeraj Garcia MD Platelet mean volume (Bld) [Entitic vol] 10.6 fL Normal 8.1-13.5 [facility] Comment on above: Performed By: #### C DP, HCG, ALCB, BMPX, LIPR, GLYHGB #### [address] [address] Line Department Supervisor: Dheeraj Garcia MD Platelets (Bld) [#/Vol] 251 10*3/uL Normal 138-453 [facility] Comment on above: Performed By: #### C DP, HCG, ALCB, BMPX, LIPR, GLYHGB #### [address] [address] Line Department Supervisor: Dheeraj Garcia MD RBC (Bld) [#/Vol] 4.52 10*6/uL Normal 3.95-5.11 [facility] Comment on above: Performed By: #### C DP, HCG, ALCB, BMPX, LIPR, GLYHGB #### [address] [address] Line Department Supervisor: Dheeraj Garcia MD WBC (Bld) [#/Vol] 9.4 10*3/uL Normal 3.5-11.3 [facility] Comment on above: Performed By: #### C DP, HCG, ALCB, BMPX, LIPR, GLYHGB #### [address] [address] Line Department Supervisor: Dheeraj Garcia MD Auto Diff Performed NOT REPORTED Normal [facility] Comment on above: Performed By: #### C DP, HCG, ALCB, BMPX, LIPR, GLYHGB #### [address] [address] Line Department Supervisor: Dheeraj Garcia MD Platelets (Bld) [#/Vol] NOT REPORTED Normal [facility] Comment on above: Performed By: #### C DP, HCG, ALCB, BMPX, LIPR, GLYHGB #### [facility] [address] [place], [place] [phone] Line Department Supervisor: Dheeraj Garcia MD RBC morphology finding Nom (Bld) NOT REPORTED Normal [facility] Comment on above: Performed By: #### C DP, HCG, ALCB, BMPX, LIPR, GLYHGB #### [facility] [address] [place], [place] [phone] Line Department Supervisor: Dheeraj Garcia MD WBC Morphology NOT REPORTED Normal [facility] Comment on above: Performed By: #### C DP, HCG, ALCB, BMPX, LIPR, GLYHGB #### [facility] [place], [place] [phone] Line Department Supervisor: Dheeraj Garcia MD Echo Completeon 09-01-2020 [place], [facility] Incoming Cardio Results From [facility]/ - 09/01/2020 3:37 PM EDT Transthoracic Echocardiography Report (TTE) Patient Name DENDINGER Date of Study 09/01/2020 YEYO Date of 1955 Gender Female Age 64 year(s) Race Room Number 0234 Height: 65 inch, 165.1 cm Corporate ID [id number] Weight: 232 pounds, 105.2 kg # Patient Acct [id number] BSA: 2.11 m^2 BMI: 38.61 # kg/m^2 MR # [id number] Machine Adjuster Pérez Lao Interpreting Physician Abundio Aguilar Fellow Referring Nurse Practitioner Interpreting Referring Physician Moisés Rodríguez Fellow Type of Study TTE procedure:2D Echocardiogram, M-Mode, Doppler, Color Doppler, Bubble Study. Procedure Date Date: 09/01/2020 Start: 07:38 AM Study Location: [facility] Technical Quality: Fair visualization Comments:Syncope, R/o CVA [...] effusion is seen. Signature - - - Electronically signed by Abundio Aguilar([facility] physician) on 09/01/2020 03:37 PM - FINDINGS Left Atrium Left atrium is [...] Wall E' velocity:0.07 m/s Lateral Wall E/E':8.8 [facility] [place], [place] Transthoracic Echocardiography Report (TTE) Patient Name MARGARITA Date of Study 09/01/2020 YEYO Date of 1955 Gender Female Age 64 year(s) Race Room Number 0234 Height: 65 inch, 165.1 cm Corporate ID [id number] Weight: 232 pounds, 105.2 kg # Patient Acct [id number] BSA: 2.11 m^2 BMI: 38.61 # kg/m^2 MR # [id number] Machine Adjuster Pérez Lao Interpreting Physician Abundio Aguilar Fellow Referring Nurse Practitioner Interpreting Referring Physician Moisés Rodríguez Fellow Type of Study TTE procedure:2D Echocardiogram, M-Mode, Doppler, Color Doppler, Bubble Study. Procedure Date Date: 09/01/2020 Start: 07:38 AM Study Location: [facility] Technical Quality: Fair visualization Comments:Syncope, R/o CVA [...] No significant pericardial effusion is seen. Signature Electronically signed by Abundio Aguilar([facility] physician) on 09/01/2020 03:37 PM FINDINGS Left Atrium Left atrium is normal [...] Wall E' velocity:0.07 m/s Lateral Wall E/E':8.8 [place] Ethanolon 09-01-2020 Ethanol [Mass/Vol] mg/dL <10 mg/dL [place], [place] Ethanol percent <0.010 <0.010 % [place], [place] Ethanol Alcoholon 09-01-2020 Ethanol [Mass/Vol] mg/dL Normal <10 [facility] Comment on above: Performed By: #### E RTPF #### [facility] [address] [place] [address] [phone] Line Department Supervisor: Dheeraj Garcia MD Ethanol percent <0.010 Normal <0.010 [facility] Comment on above: Performed By: #### E RTPF #### [facility] [address] [place] [address] [phone] Line Department Supervisor: Dheeraj Garcia MD HCG Qualitative, Serumon hCG Qual Negative NEGATIVE [place] Comment on above: Specimens with hCG l evels near the threshold of the test (25 mIU/mL) may give a negative or indeterminate result. In such cases, another test should be performed with a new specimen in 48-72 hours. If early is suspected clinically in this setting, correlation with quantitative serum b-hCG level is suggested. [employer] has confirmed the use of plasma for this test. This has not been cleared or approved by the U.S. Food and Drug Administration. The FDA has determined that such clearance is not necessary. HCG Screen, Bloodon 09-01-20 20 HCG Qn Negative Normal NEG [facility] Comment on above: Result Comment: Spec imens with hCG levels near the threshold of the test (25 mIU/mL) may give a negative or indeterminate result. In such cases, another test should be performed with a new specimen in 48-72 hours. If early is suspected clinically in this setting, correlation with quantitative serum b-hCG level is suggested. [employer] has confirmed the use of plasma for this test. This has not been cleared or approved by the U.S. Food and Drug Administration. The FDA has determined that such clearance is not necessary. Performed By: #### E RTPF #### [facility] [employer] [address] [place] [address] [phone] Line Department Supervisor: Dheeraj Garcia MD Hematologyon 09-01-2020 WBC (Bld) [#/Vol] DUPLICATE ORDER per 100 WBC [place] Hemoglobin A1Con 09-01-2020 HbA1c (Bld) [Mass fraction] 151 mg/dL Normal [facility] Comment on above: Result Comment: The ADA and AACC recommend providing the estimated average glucose result to permit better patient understanding of their HBA1c result. Performed By: #### E RTPF #### [facility] [place], [place] [phone] Line Department Supervisor: Dheeraj Garcia MD HbA1c (Bld) [Mass fraction] 6.9 % High 4.0-6.0 [facility] Comment on above: Performed By: #### E RTPF #### [facility] [employer] [address] [place] [address] [phone] Line Department Supervisor: Dheeraj Garcia MD Hemoglobin A1con 09-01-2020 Glucose [Mass/Vol] 151 mg/dL [place] Comment on above: The ADA and AACC rec ommend providing the estimated average glucose result to permit better patient understanding of their HBA1c result. HbA1c (Bld) [Mass fraction] 6.9 % High 4 - 6 % [place] Interpretation and review of laboratory results Abnormal [place] Lipid Profileon 09-01-2020 Cholesterol [Mass/Vol] 123 mg/dL Normal <200 [facility] Comment on above: Result Comment: Cholesterol Guidelines: <200 Desirable 200-240 Borderline >240 Undesirable Performed By: #### E RTPF #### [address] [address] Line Department Supervisor: Dheeraj Garcia MD Cholesterol in HDL [Mass/Vol] 43 mg/dL Normal >40 [facility] Comment on above: Result Comment: HDL Guidelines: <40 Undesirable 40-59 Borderline >59 Desirable Performed By: #### E RTPF #### [address] [address] Line Department Supervisor: Dheeraj Garcia MD Cholesterol in LDL [Mass/Vol] 50 mg/dL Normal 0-130 [facility] Comment on above: Result Comment: LDL Guidelines: <100 Desirable 100-129 Near to/above Desirable 130-159 Borderline >159 Undesirable Direct (measured) LDL and calculated LDL are not interchangeable tests. Performed By: #### E RTPF #### [address] [address] Line Department Supervisor: Dheeraj Garcia MD Cholesterol.total/Chol esterol in HDL [Mass ratio] 2.9 {ratio} Normal <5 [facility] Comment on above: Performed By: #### E RTPF #### [address] [address] Line Department Supervisor: Dheeraj Garcia MD Triglyceride [Mass/Vol] 149 mg/dL Normal <150 [facility] Comment on above: Result Comment: Triglyceride Guidelines: <150 Desirable 150-199 Borderline 200-499 High >499 Very high Based on AHA Guidelines for fasting triglyceride, August 2012. Performed By: #### E RTPF #### [facility] [employer] [address] [place], [place] [phone] Line Department Supervisor: Dheeraj Garcia MD Cholesterol in VLDL [Mass/Vol] NOT REPORTED Normal 1-30 [facility] Comment on above: Performed By: #### E RTPF #### [facility] [employer] [address] [place], [place] [phone] Line Department Supervisor: Dheeraj Garcia MD Lipid panel - fastingon 08-17 Cholesterol [Mass/Vol] 123 mg/dL <200 [place] Comment on above: Cholesterol Guidelines: <200 Desirable 200-240 Borderline >240 Undesirable Cholesterol in HDL [Mass/Vol] 43 mg/dL >40 [place] Comment on above: HDL Guidelines: <40 Undesirable 40-59 Borderline >59 Desirable Cholesterol in LDL [Mass/Vol] 50 mg/dL 0 - 130 mg/dL [place] Comment on above: LDL Guidelines: <100 Desirable 100-129 Near to/above Desirable 130-159 Borderline >159 Undesirable Direct (measured) LDL and calculated LDL are not interchangeable tests. Cholesterol in VLDL [Mass/Vol] NOT REPORTED 1 - 30 mg/dL [place] Cholesterol.total/Chol esterol in HDL [Mass ratio] 2.9 {ratio} <5 [place] Triglyceride [Mass/Vol] 149 mg/dL <150 [place] Comment on above: Triglyceride Guidelines: <150 Desirable 150-199 Borderline 200-499 High >499 Very high Based on AHA Guidelines for fasting triglyceride, August 2012. Metabolic Panelon 09-01-2020 GFR/1.73 sq M predicted among non-blacks MDRD (S/P/Bld) [Vol rate/Area] DUPLICATE ORDER [place] TRAUMA PANELon 09-01-2020 Hubert Test NOT REPORTED [place] Anion gap [Moles/Vol] DUPLICATE ORDER mmol/L [place] aPTT Coag (Bld) [Time] 27.5 s [place] Comment on above: IV Heparin Therapy Range: 48.6-77.8 aPTT Coag (Bld) [Time] 37.0 s [place] Blood Bank Specimen BILL FOR SERVICES PERFORMED [place] Carboxyhemoglobin 0.6 % 0 - 5 % [place] Comment on above: Reference Range: Non-Smokers 0-2% Average Smoker 2-4% Heavy Smoker <10% Chloride [Moles/Vol] DUPLICATE ORDER mmol/L [place] CO2 [Moles/Vol] DUPLICATE ORDER mmol/L [place] Creatinine [Mass/Vol] DUPLICATE ORDER mg/dL [place] Erythrocyte distribution width (RBC) [Ratio] DUPLICATE ORDER % [place] Ethanol [Mass/Vol] Order moved to nearest draw time. [id number] mg/dL [place] Ethanol percent Order moved to nearest draw time. [id number] % [place] FIO2 UNKNOWN [place] GFR DUPLICATE ORDER >60 mL/min [place] GFR Non- DUPLICATE ORDER >60 mL/min [place] Glucose [Mass/Vol] DUPLICATE ORDER mg/dL [place] hCG Qual Order moved to nearest draw time. [id number] NEGATIVE [place] HCO3, Venous 27.6 mmol/L 24 - 30 mmol/L [place] Hematocrit (Bld) [Volume fraction] DUPLICATE ORDER % [place] Hemoglobin (Bld) [Mass/Vol] DUPLICATE ORDER g/dL [place] INR Coag (PPP) [Relative time] 1.0 {INR} [place] Comment on above: Therapeutic Range: Moderate Anticoagulant Intensity: INR = 2.0-3.0 High Anticoagulant Intensity: INR = 2.5-3.5 Interpretation and review of laboratory results Abnormal [place] MCH (RBC) [Entitic mass] DUPLICATE ORDER pg [place] MCHC (RBC) [Mass/Vol] DUPLICATE ORDER g/dL [place] MCV (RBC) [Entitic vol] DUPLICATE ORDER fL [place] Methemoglobin NOT REPORTED 0 - 1.5 % [place] Mode NOT REPORTED [place] Negative Base Excess, Christo NOT REPORTED 0 - 2 mmol/L [place] NOTIFICATION NOT REPORTED [place] NOTIFICATION TIME NOT REPORTED [place] O2 Device/Flow/% NOT REPORTED [place] Oxygen saturation in Blood 43.1 % Low 60 - 85 % [place] Oxyhemoglobin NOT REPORTED 95 - 98 % [place] pCO2, Christo 48.8 [place] pCO2, Christo, Temp Adj NOT REPORTED [place] Peep/Cpap NOT REPORTED [place] pH, Christo 7.371 [place] pH, Christo, Temp Adj NOT REPORTED [place] Platelet mean volume (Bld) [Entitic vol] DUPLICATE ORDER fL [place] Platelets (Bld) [#/Vol] DUPLICATE ORDER k/uL [place] pO2, Christo 23.6 Low [place] pO2, Christo, Temp Adj NOT REPORTED [place] Positive Base Excess, Christo 2.1 mmol/L High 0 - 2 mmol/L [place] Potassium [Moles/Vol] DUPLICATE ORDER mmol/L [place] PSV NOT REPORTED [place] PT Coag (PPP) [Time] 10.4 s [place] Pt. Position NOT REPORTED [place] RBC (Bld) [#/Vol] DUPLICATE ORDER m/uL Me [place], [place] Sample Site NOT REPORTED [place] Set Rate NOT REPORTED [place] Sodium [Moles/Vol] DUPLICATE ORDER mmol/L [place] Text for Respiratory NOT REPORTED [place] Total Hb NOT REPORTED 12 - 16 g/dl [place] Total Rate NOT REPORTED [place] Urea nitrogen [Mass/Vol] DUPLICATE ORDER mg/dL [place] NOT REPORTED [place] Trauma Profileon 09-01-2020 aPTT Coag (Bld) [Time] 27.5 s Normal 20.5-30.5 [facility] Comment on above: Result Comment: IV Heparin Therapy Range: 48.6-77.8 Performed By: #### E RTPF #### [address] [address] Line Department Supervisor: Dheeraj Garcia MD INR Coag (PPP) [Relative time] 1.0 {INR} [facility] Comment on above: Result Comment: Therapeutic Range: Moderate Anticoagulant Intensity: INR = 2.0-3.0 High Anticoagulant Intensity: INR = 2.5-3.5 Performed By: #### E RTPF #### [address] [address] Line Department Supervisor: Dheeraj Garcia MD PT Coag (PPP) [Time] 10.4 s Normal 9.0-12.0 [facility] Comment on above: Performed By: #### E RTPF #### [address] [address] Line Department Supervisor: Dheeraj Garcia MD Body Temp. 37.0 [facility] Comment on above: Performed By: #### E RTPF #### [address] [address] Line Department Supervisor: Dheeraj Garcia MD Carboxy Hgb 0.6 % Normal 0-5 [facility] Comment on above: Result Comment: Reference Range: Non-Smokers 0-2% Average Smoker 2-4% Heavy Smoker <10% Performed By: #### E RTPF #### [address] [address] Line Department Supervisor: Dheeraj Garcia MD FIO2 UNKNOWN [facility] Comment on above: Performed By: #### E RTPF #### [address] [address] Line Department Supervisor: Dheeraj Garcia MD HCO3 (Bld) [Moles/Vol] 27.6 mmol/L Normal 24-30 [facility] Comment on above: Performed By: #### E RTPF #### [address] [address] Line Department Supervisor: Dheeraj Garcia MD Oxygen (Bld) [Partial pressure] 23.6 mm[Hg] Low 30-50 [facility] Comment on above: Performed By: #### E RTPF #### [address] [address] Line Department Supervisor: Dheeraj Garcia MD Oxygen saturation in Blood 43.1 % Low 60.0-85.0 [facility] Comment on above: Performed By: #### E RTPF #### [address] [address] Line Department Supervisor: Dheeraj Garcia MD pCO2 48.8 Normal 39-55 [facility] Comment on above: Performed By: #### E RTPF #### [address] [address] Line Department Supervisor: Dheeraj Garcia MD pH (Bld) 7.371 [pH] Normal 7.320-7.420 [facility] Comment on above: Performed By: #### E RTPF #### [address] [address] Line Department Supervisor: Dheeraj Garcia MD Positive Base Excess 2.1 mmol/L High 0.0-2.0 [facility] Comment on above: Performed By: #### E RTPF #### [address] [address] Line Department Supervisor: Dheeraj Garcia MD Hubert Test NOT REPORTED Normal [facility] Comment on above: Performed By: #### E RTPF #### [address] [address] Line Department Supervisor: Dheeraj Garcia MD Methemoglobin NOT REPORTED Normal 0.0-1.5 [facility] Comment on above: Performed By: #### E RTPF #### [address] [address] Line Department Supervisor: Dheeraj Garcia MD Mode NOT REPORTED Normal [facility] Comment on above: Performed By: #### E RTPF #### [address] [address] Line Department Supervisor: Dheeraj Garcia MD Negative Base Excess NOT REPORTED Normal 0.0-2.0 [facility] Comment on above: Performed By: #### E RTPF #### [address] [address] Line Department Supervisor: Dheeraj Garcia MD Notification Time NOT REPORTED Normal [facility] Comment on above: Performed By: #### E RTPF #### [address] [address] Line Department Supervisor: Dheeraj Garcia MD Notification: NOT REPORTED Normal [facility] Comment on above: Performed By: #### E RTPF #### [address] [address] Line Department Supervisor: Dheeraj Garcia MD O2 Device/Flow/% NOT REPORTED Normal [facility] Comment on above: Performed By: #### E RTPF #### [facility] [employer] [address] [place] [address] Line Department Supervisor: Dheeraj Garcia MD Oxyhemoglobin NOT REPORTED Normal 95.0-98.0 [facility] Comment on above: Performed By: #### E RTPF #### [facility] [employer] [address] [place] [address] Line Department Supervisor: Dheeraj Garcia MD Pco2 Adj'd for Temp. NOT REPORTED Normal 39-55 [facility] Comment on above: Performed By: #### E RTPF #### [address] [address] Line Department Supervisor: Dheeraj Garcia MD PEEP/CPAP NOT REPORTED Normal [facility] Comment on above: Performed By: #### E RTPF #### [address] [address] Line Department Supervisor: Dheeraj Garcia MD pH Adjst'd for Temp. NOT REPORTED Normal 7.320-7.420 [facility] Comment on above: Performed By: #### E RTPF #### [address] [address] Line Department Supervisor: Dheeraj Garcia MD pO2 Adj'd for Temp. NOT REPORTED Normal 30-50 [facility] Comment on above: Performed By: #### E RTPF #### [address] [address] Line Department Supervisor: Dheeraj Garcia MD PSV NOT REPORTED Normal [facility] Comment on above: Performed By: #### E RTPF #### [address] [address] Line Department Supervisor: Dheeraj Garcia MD Pt. Position NOT REPORTED Normal [facility] Comment on above: Performed By: #### E RTPF #### [address] [address] Line Department Supervisor: Dheeraj Garcia MD Set Rate NOT REPORTED Normal [facility] Comment on above: Performed By: #### E RTPF #### [address] [address] Line Department Supervisor: Dheeraj Garcia MD Site Drawn NOT REPORTED Normal [facility] Comment on above: Performed By: #### E RTPF #### [address] [address] Line Department Supervisor: Dheeraj Garcia MD Text for Respiratory NOT REPORTED Normal [facility] Comment on above: Performed By: #### E RTPF #### [address] [address] Line Department Supervisor: Dheeraj Garcia MD Total Hb NOT REPORTED Normal 12.0-16.0 [facility] Comment on above: Performed By: #### E RTPF #### [address] [address] Line Department Supervisor: Dheeraj Garcia MD Total Rate NOT REPORTED Normal [facility] Comment on above: Performed By: #### E RTPF #### [address] [address] Line Department Supervisor: Dheeraj Garcia MD [place] NOT REPORTED Normal [facility] Comment on above: Performed By: #### E RTPF #### [address] [address] Line Department Supervisor: Dheeraj Garcia MD Blood Bank BILL FOR SERVICES PERFORMED Normal [facility] Comment on above: Performed By: #### E RTPF #### [address] [address] Line Department Supervisor: Dheeraj Garcia MD CT CERVICAL SPINE WO [...] Krishna Martell DO 08/30/20 Final result Normal [facility] CT CHEST ABDOMEN PELVIS W CO [...] Brenda Sheldon MD 08/30/20 Final result Normal [facility] CT LUMBAR SPINE TRAUMA RECON STRUCTIONon [...] Krishna Martell DO 08/30/20 Final result Normal [facility] CT THORACIC SPINE TRAUMA REC ONSTRUCTIONon [...] Krishna Martell DO 08/30/20 Final result Normal [facility] CTA HEAD NECK W CONTRASTon 1 [...] Dom Zhong MD 08/30/20 Final result Normal [facility] MRI LIMITED BRAINon 08-31-20 MRI LIMITED [...] Hector Cooper MD 08/31/20 Final result Normal [facility] [place], [facility] Incoming Radiant Results From [employer] - 08/31/2020 11:56 AM EDT EXAMINATION: MRI [...] chronic microvascular disease without acute intracranial abnormality. [place] Minimal chronic microvascular disease without acute intracranial abnormality. [place] EXAMINATION: MRI OF THE BRAIN WITHOUT [...] The soft tissues demonstrate no acute abnormality. [place] Trauma Profileon 08-31-2020 Erythrocyte distribution width (RBC) [Ratio] 14.1 % Normal 11.8-14.4 [facility] Comment on above: Performed By: #### E RTPF #### [employer] [address] [place], [place] [phone] Line Department Supervisor: Dheeraj Garcia MD Hematocrit (Bld) [Volume fraction] 38.2 % Normal 36.3-47.1 [facility] Comment on above: Performed By: #### E RTPF #### [employer] [address] [place], [place] [phone] Line Department Supervisor: Dheeraj Garcia MD Hemoglobin (Bld) [Mass/Vol] 12.3 g/dL Normal 11.9-15.1 [facility] Comment on above: Performed By: #### E RTPF #### [address] [address] Line Department Supervisor: Dheeraj Garcia MD MCH (RBC) [Entitic mass] 28.9 pg Normal 25.2-33.5 [facility] Comment on above: Performed By: #### E RTPF #### [address] [phone] Line Department Supervisor: Dheeraj Garcia MD MCHC (RBC) [Mass/Vol] 32.2 g/dL Normal 28.4-34.8 [facility] Comment on above: Performed By: #### E RTPF #### [address] [address] Line Department Supervisor: Dheeraj Garcia MD MCV (RBC) [Entitic vol] 89.7 fL Normal 82.6-102.9 [facility] Comment on above: Performed By: #### E RTPF #### [address] [address] Line Department Supervisor: Dheeraj Garcia MD NRBC Automated 0.0 per 100 WBC Normal 0.0 [facility] Comment on above: Performed By: #### E RTPF #### [address] [address] Line Department Supervisor: Dheeraj Garcia MD Platelet mean volume (Bld) [Entitic vol] 10.6 fL Normal 8.1-13.5 [facility] Comment on above: Performed By: #### E RTPF #### [address] [phone] Line Department Supervisor: Dheeraj Garcia MD Platelets (Bld) [#/Vol] 268 10*3/uL Normal 138-453 [facility] Comment on above: Performed By: #### E RTPF #### [address] [address] Line Department Supervisor: Dheeraj Garcia MD RBC (Bld) [#/Vol] 4.26 10*6/uL Normal 3.95-5.11 [facility] Comment on above: Performed By: #### E RTPF #### [address] [address] Line Department Supervisor: Dheeraj Garcia MD WBC (Bld) [#/Vol] 8.7 10*3/uL Normal 3.5-11.3 [facility] Comment on above: Performed By: #### E RTPF #### [address] [address] Line Department Supervisor: Dheeraj Garcia MD (cont.) [facility] Comment on above: Result Comment: Aver age GFR for 60-69 years old: 85 mL/min/1.73sq m Chronic Kidney Disease: <60 mL/min/1.73sq m Kidney failure: <15 mL/min/1.73sq m eGFR calculated using average adult body mass. Additional eGFR calculator available at: http://www.[employer].Namely/multiple_crcl_2012.htm Performed By: #### E RTPF #### [address] [address] Line Department Supervisor: Dheeraj Garcia MD Anion gap [Moles/Vol] 10 mmol/L Normal 9-17 [facility] Comment on above: Performed By: #### E RTPF #### [address] [address] Line Department Supervisor: Dheeraj Garcia MD Chloride [Moles/Vol] 106 mmol/L Normal 98-107 [facility] Comment on above: Performed By: #### E RTPF #### [facility] [employer] [address] [place] [address] Line Department Supervisor: Dheeraj Garcia MD CO2 [Moles/Vol] 23 mmol/L Normal 20-31 [facility] Comment on above: Performed By: #### E RTPF #### [address] [address] Line Department Supervisor: Dheeraj Garcia MD Creatinine [Mass/Vol] 0.62 mg/dL Normal 0.50-0.90 [facility] Comment on above: Performed By: #### E RTPF #### [address] [address] Line Department Supervisor: Dheeraj Garcia MD Ethanol [Mass/Vol] mg/dL Normal <10 [facility] Comment on above: Performed By: #### E RTPF #### [address] [address] Line Department Supervisor: Dheeraj Garcia MD Ethanol percent <0.010 Normal <0.010 [facility] Comment on above: Performed By: #### E RTPF #### [address] [address] Line Department Supervisor: Dheeraj Garcia MD GFR, Amer >60 Normal >60 [facility] Comment on above: Performed By: #### E RTPF #### [address] [address] Line Department Supervisor: Dheeraj Garcia MD GFR,non Amer >60 Normal >60 [facility] Comment on above: Performed By: #### E RTPF #### [address] [address] Line Department Supervisor: Dheeraj Garcia MD Glucose [Mass/Vol] 186 mg/dL High 70-99 [facility] Comment on above: Performed By: #### E RTPF #### [address] [address] Line Department Supervisor: Dheeraj Garcia MD Potassium [Moles/Vol] 3.5 mmol/L Low 3.7-5.3 [facility] Comment on above: Performed By: #### E RTPF #### [address] [address] Line Department Supervisor: Dheeraj Garcia MD Sodium [Moles/Vol] 139 mmol/L Normal 135-144 [facility] Comment on above: Performed By: #### E RTPF #### [address] [address] Line Department Supervisor: Dheeraj Garcia MD Urea nitrogen [Mass/Vol] 11 mg/dL Normal 8-23 [facility] Comment on above: Performed By: #### E RTPF #### [address] [address] Line Department Supervisor: Dheeraj Garcia MD aPTT Coag (Bld) [Time] 24.4 s Normal 20.5-30.5 [facility] Comment on above: Result Comment: IV Heparin Therapy Range: 48.6-77.8 Performed By: #### E RTPF #### [address] [address] Line Department Supervisor: Dheeraj Garcia MD INR Coag (PPP) [Relative time] 1.0 {INR} Normal [facility] Comment on above: Result Comment: Therapeutic Range: Moderate Anticoagulant Intensity: INR = 2.0-3.0 High Anticoagulant Intensity: INR = 2.5-3.5 Performed By: #### E RTPF #### [address] [address] Line Department Supervisor: Dheeraj Garcia MD PT Coag (PPP) [Time] 10.5 s Normal 9.0-12.0 [facility] Comment on above: Performed By: #### E RTPF #### [address] [address] Line Department Supervisor: Dheeraj Garcia MD Body Temp. 37.0 Normal [facility] Comment on above: Performed By: #### E RTPF #### [address] [address] Line Department Supervisor: Dheeraj Garcia MD Carboxy Hgb 2.2 % Normal 0-5 [facility] Comment on above: Result Comment: Reference Range: Non-Smokers 0-2% Average Smoker 2-4% Heavy Smoker <10% Performed By: #### E RTPF #### [address] [address] Line Department Supervisor: Dheeraj Garcia MD FIO2 INFORMATION NOT PROVIDED [facility] Comment on above: Performed By: #### E RTPF #### [address] [address] Line Department Supervisor: Dheeraj Garcia MD HCO3 (Bld) [Moles/Vol] 23.6 mmol/L Low 24-30 [facility] Comment on above: Performed By: #### E RTPF #### [address] [address] Line Department Supervisor: Dheeraj Garcia MD Negative Base Excess 0.8 mmol/L Normal 0.0-2.0 [facility] Comment on above: Performed By: #### E RTPF #### [address] [address] Line Department Supervisor: Dheeraj Garcia MD Oxygen (Bld) [Partial pressure] 143.0 mm[Hg] High 30-50 [facility] Comment on above: Performed By: #### E RTPF #### [employer] [address] Line Department Supervisor: Dheeraj Garcia MD Oxygen saturation in Blood 98.6 % High 60.0-85.0 [facility] Comment on above: Performed By: #### E RTPF #### [address] [address] Line Department Supervisor: Dheeraj Garcia MD pCO2 40.6 Normal 39-55 [facility] Comment on above: Performed By: #### E RTPF #### [address] [address] Line Department Supervisor: Dheeraj Garcia MD pH (Bld) 7.383 [pH] Normal 7.320-7.420 [facility] Comment on above: Performed By: #### E RTPF #### [address] [address] Line Department Supervisor: Dheeraj Garcia MD Blood Bank BILL FOR SERVICES PERFORMED Normal [facility] Comment on above: Performed By: #### E RTPF #### [address] [address] Line Department Supervisor: Dheeraj Garcia MD Hubert Test NOT REPORTED Normal [facility] Comment on above: Performed By: #### E RTPF #### [address] [address] Line Department Supervisor: Dheeraj Garcia MD Methemoglobin NOT REPORTED Normal 0.0-1.5 [facility] Comment on above: Performed By: #### E RTPF #### [address] [address] Line Department Supervisor: Dheeraj Garcia MD Mode NOT REPORTED Normal [facility] Comment on above: Performed By: #### E RTPF #### [address] [address] Line Department Supervisor: Dheeraj Garcia MD Notification Time NOT REPORTED Normal [facility] Comment on above: Performed By: #### E RTPF #### [address] [address] Line Department Supervisor: Dheeraj Garcia MD Notification: NOT REPORTED Normal [facility] Comment on above: Performed By: #### E RTPF #### [address] [address] Line Department Supervisor: Dheeraj Garcia MD O2 Device/Flow/% NOT REPORTED Normal [facility] Comment on above: Performed By: #### E RTPF #### [address] [address] Line Department Supervisor: Dheeraj Garcia MD Oxyhemoglobin NOT REPORTED Normal 95.0-98.0 [facility] Comment on above: Performed By: #### E RTPF #### [address] [address] Line Department Supervisor: Dheeraj Garcia MD Pco2 Adj'd for Temp. NOT REPORTED Normal 39-55 Me [facility] Comment on above: Performed By: #### E RTPF #### [address] [address] Line Department Supervisor: Dheeraj Garcia MD PEEP/CPAP NOT REPORTED Normal [facility] Comment on above: Performed By: #### E RTPF #### [address] [address] Line Department Supervisor: Dheeraj Garcia MD pH Adjst'd for Temp. NOT REPORTED Normal 7.320-7.420 [facility] Comment on above: Performed By: #### E RTPF #### [address] [address] Line Department Supervisor: Dheeraj Garcia MD pO2 Adj'd for Temp. NOT REPORTED Normal 30-50 [facility] Comment on above: Performed By: #### E RTPF #### [facility] [employer] [address] [place] [address] Line Department Supervisor: Dheeraj Garcia MD Positive Base Excess NOT REPORTED Normal 0.0-2.0 [facility] Comment on above: Performed By: #### E RTPF #### [address] [address] Line Department Supervisor: Dheeraj Garcia MD PSV NOT REPORTED Normal [facility] Comment on above: Performed By: #### E RTPF #### [address] [address] Line Department Supervisor: Dheeraj Garcia MD Pt. Position NOT REPORTED Normal [facility] Comment on above: Performed By: #### E RTPF #### [address] [address] Line Department Supervisor: Dheeraj Garcia MD Set Rate NOT REPORTED Normal [facility] Comment on above: Performed By: #### E RTPF #### [address] [address] Line Department Supervisor: Dheeraj Garcia MD Site Drawn NOT REPORTED Normal [facility] Comment on above: Performed By: #### E RTPF #### [facility] [employer] [address] [place] [address] Line Department Supervisor: Dheeraj Garcia MD Staging: NOT REPORTED Normal [facility] Comment on above: Performed By: #### E RTPF #### [facility] [employer] [address] [place] [address] Line Department Supervisor: Dheeraj Garcia MD Text for Respiratory NOT REPORTED Normal [facility] Comment on above: Performed By: #### E RTPF #### [address] [address] Line Department Supervisor: Dheeraj Garcia MD Total Hb NOT REPORTED Normal 12.0-16.0 [facility] Comment on above: Performed By: #### E RTPF #### [address] [address] Line Department Supervisor: Dheeraj Garcia MD Total Rate NOT REPORTED Normal [facility] Comment on above: Performed By: #### E RTPF #### [address] [address] Line Department Supervisor: Dheeraj Garcia MD [place] NOT REPORTED Normal [facility] Comment on above: Performed By: #### E RTPF #### [address] [address] Line Department Supervisor: Dheeraj Garcia MD Type + Screenon 08-31-2020 Type + Screen Sample Expiration 09/02/2020,2359 Arm Band Number [id number] ABO/Rh(D) O POSITIVE Antibody Screen NEGATIVE Normal [facility] Comment on above: Performed By: #### T YS #### [address] [address] Line Department Supervisor: Dheeraj Garcia MD XR SHOULDER LEFT (MIN [...] Delmis Adams MD 08/31/20 Final result Normal [facility] EXAMINATION: TWO XRAY VIEWS OF THE LEFT SHOULDER 08/31/2020 8:25 am COMPARISON: None. HISTORY: ORDERING SYSTEM PROVIDED HISTORY: trauma TECHNOLOGIST PROVIDED HISTORY: trauma Reason for Exam: trauma Acuity: Acute Type of Exam: Initial FINDINGS: The bones and joints are unremarkable without definite fracture, dislocation, abnormal soft tissue calcification or bony destructive lesion [facility] three view left shoulder series [facility] [place], pn Incoming Radiant Results From [employer] - 08/31/2020 8:46 AM EDT EXAMINATION: TWO [...] IMPRESSION: Unremarkable three view left shoulder series [facility] CERVICAL SPINE WO CONTRAS Ton 08-30-2020 No evidence of an acute fracture or traumatic malalignment involving the cervical spine [facility] EXAMIN[facility]: CT OF THE CERVICAL SPINE WITHOUT [...] There is no prevertebral soft tissue swelling. [facility] [place], [facility] Incoming Radiant Results From [employer] - 08/30/2020 11:01 PM EDT EXAMINATION: CT [...] or traumatic malalignment involving the cervical spine [place], [place] CT CHEST ABDOMEN PELVIS W NH NTRASTon 08-30-2020 EXAMINATION: CT OF THE CHEST, [...] aorta. Bones/Soft Tissues: No acute osseous abnormality. [place] Ellis, [facility] Incoming Radiant Results From [employer] - 08/30/2020 11:25 PM EDT EXAMINATION: CT [...] could provide further information as clinically indicated. [place] 1. No acute or traumatic intrathoracic abnormality. 2. No acute or traumatic intra-abdominal abnormality. 3. Dilation of the main pulmonary artery, suggestive of pulmonary artery hypertension. 4. Hepatic steatosis. 5. 1.6 cm left upper pole renal lesion is indeterminate, possibly a cyst. Renal protocol CT or MRI could provide further information as clinically indicated. [place] [facility]ATION: CT OF THE LUMBAR SPINE [...] the upper pole of the left kidney. [place], [facility] Incoming Radiant Results From [employer] - 08/30/2020 11:26 PM EDT EXAMINATION: CT [...] or traumatic malalignment involving the lumbar spine. [place] No evidence of an acute fracture or traumatic malalignment involving the lumbar spine. [place] THORACIC SPINE TRAUMA REC ONSTRUCTIONon [...] the lung bases. No pneumothorax is noted. [place], [facility] Incoming Radiant Results From [employer] - 08/30/2020 11:29 PM EDT EXAMINATION: CT [...] or traumatic malalignment involving the thoracic spine [place] No evidence of an acute fracture or traumatic malalignment involving the thoracic spine [place] CTA HEAD NECK W CONTRASTon 1 Unremarkable CTA of the neck. 50% stenosis left intracranial ICA, otherwise unremarkable CTA head. [place], [facility] Incoming Radiant Results From [employer] - 08/30/2020 11:48 PM EDT EXAMINATION: CTA [...] left intracranial ICA, otherwise unremarkable CTA head. [place] EXAMINATION: CTA OF THE HEAD AND [...] fluid collection. The durán-white differentiation is maintained. [place] TYPE AND SCREENon 08-30-2020 ABO/Rh Positive [place], [place] Arm Band Number BE [id number] [place], [place] Expiration Date 09/02/2020,2359 [place], [place] Trauma Panelon 08-30-2020 Hubert Test NOT REPORTED [place] Anion gap [Moles/Vol] 10 mmol/L 9 - 17 mmol/L [place] aPTT Coag (Bld) [Time] 37.0 s [place] aPTT Coag (Bld) [Time] 24.4 s [place] Comment on above: IV Heparin Therapy Range: 48.6-77.8 Blood Bank Specimen BILL FOR SERVICES PERFORMED [place] Carboxyhemoglobin 2.2 % 0 - 5 % [place] Comment on above: Reference Range: Non-Smokers 0-2% Average Smoker 2-4% Heavy Smoker <10% Chloride [Moles/Vol] 106 mmol/L 98 - 10 7 mmol/L [place] CO2 [Moles/Vol] 23 mmol/L 20 - 31 mmol/L [place] Creatinine [Mass/Vol] 0.62 mg/dL 0.5 - 0.9 mg/dL [place] Erythrocyte distribution width (RBC) [Ratio] 14.1 % 11.8 - 14.4 % [place] Ethanol [Mass/Vol] mg/dL <10 mg/dL [place] Ethanol percent <0.010 <0.010 % [place] FIO2 INFORMATION NOT PROVIDED [place] GFR >60 >60 mL/min [place] GFR Non- >60 >60 mL/min [place] GFR/1.73 sq M predicted among non-blacks MDRD (S/P/Bld) [Vol rate/Area] [place] Comment on above: Average GFR for 60-6 9 years old: 85 mL/min/1.73sq m Chronic Kidney Disease: <60 mL/min/1.73sq m Kidney failure: <15 mL/min/1.73sq m eGFR calculated using average adult body mass. Additional eGFR calculator available at: http://www.[employer]/multiple_crcl_2012.htm GFR/1.73 sq M predicted among non-blacks MDRD (S/P/Bld) [Vol rate/Area] NOT REPORTED [place] Glucose [Mass/Vol] 186 mg/dL High 70 - 99 mg/dL [place] hCG Qual CANCELLED PER ED NEGATIVE [place], [place] HCO3, Venous 23.6 mmol/L Low 24 - 30 mmol/L [place] Hematocrit (Bld) [Volume fraction] 38.2 % 36.3 - 47.1 % [place] Hemoglobin (Bld) [Mass/Vol] 12.3 g/dL 11.9 - 15.1 g/dL [place] INR Coag (PPP) [Relative time] 1.0 {INR} [place] Comment on above: Therapeutic Range: Moderate Anticoagulant Intensity: INR = 2.0-3.0 High Anticoagulant Intensity: INR = 2.5-3.5 Interpretation and review of laboratory results Abnormal [place] MCH (RBC) [Entitic mass] 28.9 pg 25.2 - 33.5 pg [place] MCHC (RBC) [Mass/Vol] 32.2 g/dL 28.4 - 34.8 g/dL [place] MCV (RBC) [Entitic vol] 89.7 fL 82.6 - 102.9 fL [place] Methemoglobin NOT REPORTED 0 - 1.5 % [place] Mode NOT REPORTED [place] Negative Base Excess, Christo 0.8 mmol/L 0 - 2 mmol/L [place] NOTIFICATION NOT REPORTED [place] NOTIFICATION TIME NOT REPORTED [place] O2 Device/Flow/% NOT REPORTED [place] Oxygen saturation in Blood 98.6 % High 60 - 85 % [place] Oxyhemoglobin NOT REPORTED 95 - 98 % [place] pCO2, Christo 40.6 [place] pCO2, Christo, Temp Adj NOT REPORTED [place] Peep/Cpap NOT REPORTED [place] pH, Christo 7.383 [place] pH, Christo, Temp Adj NOT REPORTED [place] Platelet mean volume (Bld) [Entitic vol] 10.6 fL 8.1 - 13.5 fL [place] Platelets (Bld) [#/Vol] 268 10*3/uL [place] pO2, Christo 143.0 High [place] pO2, Christo, Temp Adj NOT REPORTED [place] Positive Base Excess, Christo NOT REPORTED 0 - 2 mmol/L [place] Potassium [Moles/Vol] 3.5 mmol/L Low 3.7 - 5.3 mmol/L [place] PSV NOT REPORTED [place] PT Coag (PPP) [Time] 10.5 s [place] Pt. Position NOT REPORTED [place] RBC (Bld) [#/Vol] 4.26 10*6/uL 3.95 - 5.1 1 m/uL [place] Sample Site NOT REPORTED [place] Set Rate NOT REPORTED [place] Sodium [Moles/Vol] 139 mmol/L 135 - 144 mmol/L [place] Text for Respiratory NOT REPORTED Me [place] Total Hb NOT REPORTED 12 - 16 g/dl [place] Total Rate NOT REPORTED [place] Urea nitrogen [Mass/Vol] 11 mg/dL 8 - 23 mg/dL [place] NOT REPORTED [place] WBC (Bld) [#/Vol] 0.0 10*3/uL 0.0 per 10 0 WBC [place] WBC (Bld) [#/Vol] 8.7 10*3/uL [place] PROGRESSon 03-24-2019 Protein mass conc HNO ID: [id number] Author: Kamilah Jean) Kyle Service: ? Author Type: Physician Radio Television Technical Director Type: Progress Notes Filed: 03/25/2019 10:38 AM Note Text: [facility] NOTE NAME: SHEMAR AVILA NO.: [id number] DATE OF SERVICE: 03/24/2019 [facility] DATE OF : 1955 CHIEF COMPLAINT: Skilled followup visit for discharge. Also complains of a cyst on her back. SUBJECTIVE FINDINGS: The patient was seen in her room today at [facility]. She is tentatively scheduled for [...] above. MEDICATIONS: Medications were reviewed in the [facility] records. OARRS report was run today and [...] DICTATED BY: Kamilah Wright PA-C PG/Niharika JOB# [id number] cc:Viviana Mota Normal [facility] PROGRESSon 03-22-2019 Protein mass conc HNO ID: [id number] Author: Kamilah Wright (Pa) Service: ? Author Type: Physician Radio Television Technical Director Type: Progress Notes Filed: 03/23/2019 11:37 AM Note Text: [facility] NOTE NAME: SHEMAR AVILA NO.: [id number] DATE OF SERVICE: 03/22/2019 Viviana Mota DATE OF : 1955 CHIEF COMPLAINT: Skilled followup visit for stroke; today complaining of heartburn. SUBJECTIVE FINDINGS: The patient was seen in the therapy department at [facility]. She reports that overall she [...] SYSTEMS: See above. MEDICATIONS: Reviewed in the [facility] record. CODE STATUS: Full code. PHYSICAL EXAM: [...] DICTATED BY: Kamilah Wright PA-C PG/Niharika JOB# [id number] cc:[facility] Normal [facility] PROGRESSon 03-19-2019 Protein mass conc HNO ID: [id number] Author: Kamilah Wright (Pa) Service: ? Author Type: Physician Radio Television Technical Director Type: Progress Notes Filed: 03/22/2019 12:17 PM Note Text: [facility] NOTE NAME: SHEMAR AVILA NO.: [id number] DATE OF SERVICE: 03/19/2019 [facility] DATE OF : 1955 CHIEF COMPLAINT: Follow up for stroke and weakness. SUBJECTIVE FINDINGS: The patient was seen in her room at [facility]. She is complaining of a [...] SYSTEMS: See above. MEDICATIONS: Reviewed in the [facility] record. CODE STATUS: Full code. PHYSICAL EXAM: [...] DICTATED BY: Kamilah Wright PA-C PG/Niharika JOB# [id number] cc:[facility] Normal [facility] PROGRESSon 03-17-2019 Protein mass conc HNO ID: [id number] Author: Kamilah Wright (Pa) Service: ? Author Type: Physician Radio Television Technical Director Type: Progress Notes Filed: 03/18/2019 10:28 AM Note Text: [facility] NOTE NAME: SHEMAR AVILA NO.: [id number] DATE OF SERVICE: 03/17/2019 [facility] DATE OF : 1955 CHIEF COMPLAINT: Follow up for stroke and weakness. SUBJECTIVE FINDINGS: The patient was seen in the therapy department at [facility]. She is doing very well [...] SYSTEMS: See above. MEDICATIONS: Reviewed in the [facility] record. CODE STATUS: Full code. PHYSICAL EXAM: [...] DICTATED BY: Kamilah Wright PA-C PG/Niharika JOB# [id number] cc:Viviana Mota Normal [facility] PROGRESSon 03-15-2019 Protein mass conc HNO ID: [id number] Author: Kyra Butler Service: ? Author Type: Physician Type: Progress Notes Filed: 03/18/2019 5:07 PM Note Text: [facility] LONG-TERM NOTE NAME: YEYO AVILA COLEEN NO.: [id number] DATE OF SERVICE: 03/15/2019 Viviana Mota DATE OF : 1955 New Patient History and Physical HISTORY OF PRESENT ILLNESS: The patient is a 63-year-old female was admitted to us from [facility] in [place] with the diagnoses of complicated headache syndrome [...] was negative. She was then transferred to [facility] where repeat CT scan along with [...] therapy. DICTATED BY: MD NELIDA Larose/Niharika JOB# [id number] cc:[facility] Normal [facility] Vital Signs Date Time Vital Sign Value Performing Clinician Facility 07-13-2023 11:32-0400 Body temperature 97.88 [degF] [facility] 07-13-2023 11:32-0400 Diastolic blood pressure 85 mm[Hg] [facility] 07-13-2023 11:32-0400 Heart rate 76 /min [facility] 07-13-2023 11:32-0400 Respiratory rate 18 /min [facility] 07-13-2023 11:32-0400 SaO2% (BldA) [Mass fraction] 97 % [facility] 07-13-2023 11:32-0400 Systolic blood pressure 147 mm[Hg] [facility] 02-24-2023 13:08-0400 Promise to Return Ronobir FELICIA [facility] 02-24-2023 12:00-0400 Hourly Rounding Ronobir FELICIA [facility] 02-24-2023 12:00-0400 Promise to Return Ronobir FELICIA [facility] 02-24-2023 11:56-0400 Heart rate 62 /min Ronobir FELICIA [facility] 02-24-2023 11:56-0400 SaO2% (BldA) [Mass fraction] 97 % Ronobir FELICIA [facility] 02-24-2023 11:54-0400 Diastolic blood pressure 67 mm[Hg] Ronobir FELICIA [facility] 02-24-2023 11:54-0400 Mean blood pressure 88 mm[Hg] Ronobir FELICIA [facility] 02-24-2023 11:54-0400 Systolic blood pressure 130 mm[Hg] Ronobir FELICIA [facility] 02-24-2023 11:54-0400 Body temperature 97.88 [degF] Ronobir FELICIA [facility] 02-24-2023 11:11-0400 Hourly Rounding Ronobir FELICIA [facility] 02-24-2023 11:11-0400 Promise to Return Ronobir FELICIA [facility] 02-24-2023 11:00-0400 Hourly Rounding Ronobir FELICIA [facility] 02-24-2023 07:50-0400 SaO2% (BldA) [Mass fraction] 98 % Ronobir FELICIA [facility] 02-24-2023 07:43-0400 Heart rate 61 /min Ronobir FELICIA [facility] 02-24-2023 07:43-0400 SaO2% (BldA) [Mass fraction] 98 % Ronobir FELICIA [facility] 02-24-2023 07:41-0400 Body temperature 98.06 [degF] Ronobir FELICIA [facility] 02-24-2023 07:41-0400 Diastolic blood pressure 74 mm[Hg] Ronobir FELICIA [facility] 02-24-2023 07:41-0400 Mean blood pressure 92 mm[Hg] Ronobir FELICIA [facility] 02-24-2023 07:41-0400 Systolic blood pressure 128 mm[Hg] Ronobir FELICIA [facility] 02-24-2023 03:47-0400 Blood Pressure Location Ronobir FELICIA [facility] 02-24-2023 03:47-0400 Body temperature 97.52 [degF] Ronobir FELICIA [facility] 02-24-2023 03:47-0400 Diastolic blood pressure 70 mm[Hg] Ronobir FELICIA [facility] 02-24-2023 03:47-0400 Heart rate 57 /min Ronobir FELICIA [facility] 02-24-2023 03:47-0400 Mean blood pressure 87 mm[Hg] Ronobir FELICIA [facility] 02-24-2023 03:47-0400 Respiratory rate 17 /min Ronobir FELICIA [facility] 02-24-2023 03:47-0400 Systolic blood pressure 120 mm[Hg] Ronobir FELICIA [facility] 02-24-2023 03:06-0400 Mean blood pressure 77 mm[Hg] Ronobir FELICIA [facility] 02-24-2023 03:06-0400 Respiratory rate 16 /min Ronobir FELICIA [facility] 02-24-2023 02:49-0400 Respiratory rate 16 /min Ronobir FELICIA [facility] 02-24-2023 02:04-0400 Body temperature 96.8 [degF] Ronobir FELICIA [facility] 02-24-2023 02:04-0400 Mean blood pressure 68 mm[Hg] Ronobir FELICIA [facility] 02-24-2023 01:09-0400 Body temperature 96.62 [degF] Ronobir FELICIA [facility] 02-24-2023 00:21-0400 Heart rate 58 /min Ronobir FELICIA [facility] 02-24-2023 00:06-0400 gluc 139 mg/dL Ronobir FELICIA [facility] 02-24-2023 00:06-0400 Heart rate 61 /min Sunshine DUARTE [facility] 02-18-2022 13:50-0400 Body height 165.1 cm MD Shaikh Hernandez Work Phone: [facility] 02-18-2022 13:50-0400 Body weight 104.32 kg MD Shaikh Hernandez Work Phone: [facility] 09-01-2020 16:00-0400 BP Diastolic 85 mm[Hg] [facility] [place] 09-01-2020 16:00-0400 BP Systolic 158 mm[Hg] [facility] [place] 09-01-2020 14:12-0400 Pulse (Heart Rate) 72 /min Dankpaula Nunes [facility] [place] 09-01-2020 13:30-0400 Respiratory rate NOT REPORTED Dank Nunes [facility] [place] 09-01-2020 12:27-0400 Body Temperature 97.7 [degF] [facility] [place] 09-01-2020 12:27-0400 Pulse Oximetry 94 % Dank Nunes [facility] [place] 09-01-2020 07:15-0400 Respiratory rate NOT REPORTED HERMELINDO ADKINS [facility] Comment on above: Performed By: #### ERTPF #### [employer] [address] [place] [address] Line Department Supervisor: Dheeraj Garcia MD 09-01-2020 04:45-0400 Respiratory Rate 15 /min Dank Nunes [facility] [place] [facility] [place] 08-31-2020 18:45-0400 BMI (Body Mass Index) 38.72 kg/m2 Dank Rodgers [facility] [place], [place] 08-31-2020 18:45-0400 Body weight 105.55 kg Dank Nunes [facility] [place] 08-31-2020 18:45-0400 Height 165.1 cm Dank Nunes [employer] [facility] , [place] 08-31-2020 00:34-0400 Respiratory rate NOT REPORTED HERMELINDO ADKINS [facility] Comment on above: Performed By: #### ERTPF #### [facility] [address] [place] [address] Line Department Supervisor: Dheeraj Garcia MD 08-30-2020 23:08-0400 Respiratory rate NOT REPORTED [facility] [place] Encounters Encounter Date Encounter Type Care Provider Facility Start: 01-14-2024 End: 01-14-2024 ambulatory EHAB [facility] Start: 12-30-2023 End: 12-31-2023 ambulatory Arturo DOLAN Facility[facility] Start: 12-30-2023 End: 12-30-2023 Patient encounter procedure Arturo DOLAN [facility] Start: 12-18-2023 End: 12-19-2023 ambulatory Arturo DOLAN Facility:[id number] Start: 11-13-2023 End: 11-14-2023 ambulatory Arturo DOLAN Facility:CD:[id number] Start: 11-12-2023 End: 11-13-2023 ambulatory Arturo DOLAN Facility:[facility] Start: 07-13-2023 End: 07-13-2023 Emergency department patient visit Zaki Muñoz Facility[facility] Start: 07-13-2023 End: 07-13-2023 Emergency department [facility] Start: 07-08-2023 End: 07-08-2023 ambulatory ALEXIA CLINE [facility] Start: 04-25-2023 End: 04-25-2023 ambulatory JONO LOPEZ [facility] Start: 04-15-2023 End: 04-15-[address] ROBIN PONCE . Facility:[facility] Start: 04-01-2023 End: 04-01-[address] DANK JOHNSON Facility:[facility] Start: 04-01-2023 End: 04-02-[address] DOCTOR CASTELLON Facility:[facility] Start: 03-24-2023 End: 03-25-[address] DOCTOR CASTELLON Facility:[facility] Start: 03-10-2023 End: 03-10-2023 [facility] Start: 02-24-2023 End: 02-24-2023 Observation Sunshine DUARTE [facility] Start: 02-14-2023 End: 02-14-[address] ROBIN PONCE . Facility:[facility] Start: 10-05-2022 End: 10-05-[address] ZELALEM STACY Facility:[facility] Start: 09-23-2022 ambulatory SHAIKH Eino Farley y:[facility] Start: 02-18-2022 End: 02-18-2022 Patient encounter procedure MD Shaikh Hernandez Work Phone: [facility] [place] Start: 03-21-2021 End: 03-22-2021 ambulatory REBEKA PARDO Facility:[facility] Start: 08-31-2020 End: 09-01-2020 Evaluation and management of inpatient HERMELINDO ADKINS [facility] Start: 08-30-2020 End: 09-01-2020 Evaluation and management of inpatient Dank Nunes [facility] Comment on above: Injury of head, init ial encounter (Primary Dx) Procedures Date Procedure Procedure Detail Performing Clinician Start: 02-18-2022 MRI of abdomen with contrast MD Shaikh Hernandez Work Phone: Start: 09-01-2020 DISCHARGE PATIENT HERMELINDO LUCILLE Start: 09-01-2020 IP CONSULT TO HOME CARE [...] 08-31-2020 ADVANCE DIET TOLERATED (NURSING COMMUNICATION) HERMELINDO LUCILLE Start: 08-31-2020 DIET CARB CONTROL HERMELINDO LUCILLE Start: 08-31-2020 OT EVAL AND TREAT HERMELINDO LUCILLE Start: 08-31-2020 PLACE INTERMITTENT PNEUMATIC COMPRESSION DEVICE HERMELINDO LUCILLE Start: 08-31-2020 TELEMETRY MONITORING HERMELINDO LUCILLE Start: 08-31-2020 Mri brain brain stem w/o contrast material HERMELINDO LUCILLE Start: 08-31-2020 Mri brain brain stem w/o contrast material Moisés A Tyda Start: 08-31-2020 Radex shoulder complete minimum 2 views HERMELINDO LUCILLE Start: 08-31-2020 INITIATE OXYGEN THERAPY PROTOCOL HERMELINDO LUCILLE Start: 08-31-2020 Radex shoulder complete minimum 2 views Christina Curtis Work Phone: Start: 08-31-2020 HEIGHT AND WEIGHT HERMELINDO LUCILLE Start: 08-31-2020 NURSING COMMUNICATION HERMELINDO LUCILLE Start: 08-31-2020 FULL CODE HERMELINDO LUCILLE Start: 08-31-2020 INITIATE OXYGEN THERAPY PROTOCOL HERMELINDO LUCILLE Start: 08-31-2020 MISCELLANEOUS NURSING CARE ORDER (SPECIFY) HERMELINDO LUCILLE Start: 08-31-2020 NIHSS HERMELINDO LUCILLE Start: 08-31-2020 NOTIFY PHYSICIAN (SPECIFY) HERMELINDO ADKINS Start: 08-31-2020 NURSING SWALLOW ASSESSMENT HERMELINDOWHITNEY ADKINS Start: 08-31-2020 OT EVAL AND TREAT HERMELINDO LUCILLE Start: 08-31-2020 PROVIDE PATIENT EDUCATION MATERIALS HERMELINDOWHITNEY ADKINS Start: 08-31-2020 PT EVAL AND TREAT HERMELINDOWHITNEY ADKINS Start: 08-31-2020 REASON FOR NO CHEMICAL VTE PROPHYLAXIS HERMELINDOWHITNEY ADKINS Start: 08-31-2020 KERFER MACHINE OPERATOR EVAL AND TREAT HERMELINDO LUCILLE Start: 08-31-2020 TOBACCO CESSATION EDUCATION HERMELINDOWHITNEY ADKINS Start: 08-31-2020 VITAL SIGNS HERMELINDO ADKINS Start: 08-31-2020 VITAL SIGNS - NOTIFY MD HERMELINDO ADKINS Start: 08-31-2020 PATIENT STATUS (FROM ED OR OR/PROCEDURAL) HERMELINDOWHITNEY ADKINS Start: 08-31-2020 IP CONSULT TO NEUROLOGY HERMELINDOWHITNEY ADKINS Start: 08-31-2020 Ct angiography head w/contrast/noncontrast HERMELINDO ADKINS Start: 08-31-2020 Ct lumbar spine w/o contrast material HERMELINDO ADKINS Start: 08-31-2020 Ct thoracic spine w/o contrast material HERMELINDOWHITNEY ADKINS Start: 08-31-2020 Ct thorax w/contrast material HERMELINDOWHITNEY ADKINS Start: 08-31-2020 Ct cervical spine w/o contrast material HERMELINDO ADKINS Start: 08-31-2020 TYPE AND SCREEN HERMELINDOWHITNEY ADKINS Start: 08-31-2020 Cell enumeration immune selectj & id fluid spec HERMELINDO LUCILLE Start: 08-30-2020 Antibody screen Dank Manju Start: 08-30-2020 Ct angiography neck w/contrast/noncontrast Moisés A Tyda Start: 08-30-2020 CT LUMBAR SPINE TRAUMA RECONSTRUCTION Pati Diop Work Phone: Start: 08-30-2020 CT THORACIC SPINE TRAUMA RECONSTRUCTION Pati Diop Work Phone: Start: 08-30-2020 Ct thorax w/contrast material Pati Diop Work Phone: Start: 08-30-2020 Ct cervical spine w/o contrast material Pati Diop Work Phone: Start: 08-30-2020 Blood typing [...] Start: 09-01-2021 Creatinine measurement Creatinine mo [place]itoring [place], [place] Start: 09-01-2021 HbA1c (Bld) [Mass fraction] A1C test (Diabetic or Prediabetic) [place] Start: 09-01-2021 Lipid panel Lipid screen [place], [place] Start: 09-01-2021 Potassium monitoring Potassium monit [place]ing [place] Start: 08-31-2020 Annual Wellness Visi t (AWV) Annual Wellness Visit (AWV) [place] Start: 07-18-2020 Influenza vaccination Flu vaccine (# 1) [place] Start: 2007 Screening for malign ant neoplasm of breast Breast cancer screen [place], [place] Start: 2007 Screening for malign ant neoplasm of colon Colon cancer screen colonoscopy [place] Start: 2007 Shingles Vaccine (1 of 2) Shingles V accine (1 of 2) [place] Start: 1978 Screening for malign ant neoplasm of cervix Cervical cancer screen [place] Start: 1976 DTaP/Tdap/Td vaccine (1 - Tdap) DTaP/Tdap/Td vaccine (1 - Tdap) [place] Start: 1975 Diabetic microalbumi betzy test Diabetic microalbuminuria test [place] Start: 1972 HIV screening [facility] [place] [place] Start: 1967 Diabetic foot examination Diabetic f oot exam [place] Start: 1967 Diabetic retinal exam Diabetic retin al exam [place] Start: 1957 Hepatitis C screening Hepatitis C sc reen [place] Oxygen therapy [[facility] Data Set] Initiate Oxygen Therapy Protocol Respiratory Care Routine Daily until discontinued starting 08/31/2020 [place] Comment on above: Daily until disconti nued starting 08/31/2020 End: 08-31-2020 Speech and language therapy regime [place] Comment on above: One Time for 1 Occur rences starting 08/31/2020 until 08/31/2020 Immunizations Immunization Date Immunization Notes Care Provider Ronny pathak 08-17-2021 influenza virus vaccine, unspecified formulation Ronobir FELICIA [facility] 02-15-2021 SARS-CoV-2 (COVID-19 ) Ad26 vaccine, recombinant Ronobir FELICIA [facility] 01-15-2021 SARS-CoV-2 (COVID-19 ) Ad26 vaccine, recombinant Ronobir FELICIA [facility] 09-19-2017 pneumococcal conjuga te vaccine, 13 valent Arturomian DOLAN [facility] Payers Date Payer Category Payer Medicare [id number] [id number] 1957 Self-pay [id number] 1955 Unknown [id number] 2.16.8 [id number] 1957 Unknown [id number] 2.16.8 [id number] 1957 Unknown [id number] 2.16.84 0.1.505655.3.579.2.593 1957 Unknown [id number] 2.16.84 0.1.802044.3.579.2.593 1957 Unknown [id number] 2.16.84 0.1.444487.3.579.2.593 1957 Unknown [id number] 2.16.84 0.1.237165.3.579.2.593 1957 Unknown [id number] 2.16.84 0.1.866766.3.579.2.593 1957 Unknown [id number] 2.16.84 0.1.779377.3.579.2.593 1957 Unknown [id number] 2.16.84 0.1.108431.3.579.2.593 1957 Unknown [id number] 2.16.8 40.1.583104.3.579.2.727 1957 Unknown [id number] 2.16.8 40.1.499631.3.579.2.727 1957 Unknown [id number] 2.16.8 40.1.686627.3.579.2.727 1957 Unknown [id number] 2.16.8 40.1.735979.3.579.2.727 1957 Unknown [id number] 2.16.8 [id number] Self-pay Self Pay [id number] Social History Date Type Detail Facility Tobacco smoking stat [facility] Unknown if ever smoked [place] Sex Assigned At Not on file [place] Start: 03-19-2021 [facility] Start: 1955 Sex Assigned At Female [facility] Start: 02-24-2023 End: 11-12-2023 Tobacco smoking status Heavy tobacco smoker (finding) [facility] Comment on above: 1 pack a day Sex Assigned At Female [facility] Tobacco smoking status Never [facility] Comment on above: 1 pack a day Functional Status Date Assessment Result Facility 12-30-2023 Functional Status N/A [facility] 07-13-2023 Functional Status N/A [facility] 02-24-2023 Functional Status No [facility] 02-24-2023 Functional Status [facility] Clinical Notes 02-24-2023 to 01-14-2024 Note Date & Type Note Facility 01-14-2024 Note [facility] Note Chief Complaint: Patient here for 6 mo follow up hypertension, chronic systolic heart failure, and CAD. Had labs 2 weeks ago. C/o right sided chest pain. Says she's fallen several times due to LE weakness and lightheadedness. She is diaphoretic with the chest pain. Feels palpitations quite often . HPI: Yeyo Avila is a 68 y.o. female History of [...] Iodinated contrast media, Aspirin, Atorvastatin, Cat/feline products, Richards, Topiramate, Blue dye, Iodine, and Lisinopril Medications [...] 2010 hemishield graft (more content not included)... [facility] 12-30-2023 Note [id number] [facility] 12-30-2023 Hospital Discharge instructions Patient Education [...] With:Arturo DOLAN Address: [facility] [address], [place] [address]- Business (1) When:03/29/2024 11:56:00 Comments:With a stone metabolic workup [facility] 12-30-2023 Note Custom Cystoscopy with Stent Removal ? Voiding after the procedure: there may be some pain, burning, urgency, frequency and blood tinged urine following the procedure. These symptoms usually resolve within 2-5 days. Drink the amount of fluid it takes to keep the urine pink to yellow or clear in color. Drinking enough water and fluids will help to ease any discomfort after your procedure. ? If you are having problems that seem out of the ordinary, please call. ? If unable to contact your physician and you feel it is an emergency, go to the nearest emergency room or call 911 ? Diet ? you may resume your normal diet. ? Activity ? you may resume your normal activities ? Call if you have a fever over [address] [facility] 12-03-2023 Note RCRI=3 points Class IV Risk 15.0 % 30-day risk of , [place], or cardiac arrest PMH- CAD s/p Stent, [...] you Alexia Cline NP Division of Cardiology, [facility]- [phone] Pager- [phone] Email- [email or web address] 07-13-2023 Hospital Discharge instructions Patient Education 07/13/2023 [...] to strengthen the arm. General instructions Take ezhl-nqt-mfshadm and prescription medicines only as told by [...] provider. Document Revised: 07/19/2022 Document Reviewed: 07/19/2022 [employer] Patient Education 2022 [employer]. 07/13/2023 12:19:06 Muscle Strain Muscle Strain A [...] is not too tight. General instructions Take pzbj-age-wmpumey and prescription medicines only as told by [...] provider. Document Revised: 01/21/2022 Document Reviewed: 01/21/2022 [employer] Patient Education 2022 [employer]. Follow Up Care 07/13/2023 11:23:52 With:Robin Ponce Address: [address] [place], [place] [id number] Business (1) When:07/16/2023 12:02:34 [facility] 07-13-2023 Evaluation + Plan note Extrac sherita from: Title:ED Note Author:Rubén STAFFORD, Mathew Sadler te:07/13/23 Shoulder pain (M25.519: Pain in unspecified shoulder) Ordered: acetaminophen-oxycodone, 1 tab(s), Oral, q6hr as needed for pain for 3 day(s), 15 tab(s), Refill(s) 0, [id number], 165, cm, 07/13/23 11:34:00 EDT, Height/Length Dosing, 95.5, kg, 07/13/23 11:34:00 EDT, Weight Dosing [facility]08-22-2023 NoteWill increase imdur to 60 mg and d/w pt that if migraines worsen she can reduce back to 30 mg [facility] Note Recommended pt to see a migraine specialist [place] NoteCoronary artery disease is stable Continue GDMT- Coreg, simvastatin, imdur continue risk factor modifications- heart healthy diet, regular exercise as tolerated and continue all medications.[facility] 07-08-2023 NoteNYHC II- currently LVEF normal 60%- recovered Mild MR and TV regurg Normal rt sided pressure Continue current med regime. Coreg, irbesartan, simvastatin, [facility]ur[facility] 07-08-2023 NoteHypertension is well controlled, Continue all current medsUniversity of [facility]08-22-2023 NoteUTP CARDIOLOGY PROGRESS NOTE HPI: Yeyo S Dendinger is a 67 y.o. female here for [...] States pain in groin Cat/Feline Products Hives Richards Hives Topiramate Hives and Other Blue Dye [...] mononitrate ER (I (more content not included)... [facility]06-09-2023 NotePatient here for follow up Holter monitor and stress test. Also had labs a few weeks ago. Review of Systems Cardiovascular: Positive for chest pain, dyspnea on exertion and near-syncope (with bending over). Neurological: Positive for dizziness and light-headedness. All other systems reviewed and are negative.[facility] 04-25-2023 NoteCardiology Clinic Note Subjective Yeyo [...] States pain in groin Cat/Feline Products Hives Richards Hives Topiramate Hives and Other Blue Dye [...] mg sublingual tablet, Dis (more content not included)...[facility] 03-10-2023 NoteCardiology Clinic Note Subjective Yeyo [...] mellitus due to underlying condition without complications ([facility]/HCC) Coronary atherosclerosis Diabetes ([facility]/HCC) Difficulty in walking, not elsewhere classified Disorder of urinary tract Dyspnea Zaina hematuria Hemiplegia and hemiparesis following cerebral infarction affecting left non-dominant side ([facility]/HCC) Head injury GERD (gastroesophageal reflux disease) NEGRITA (generalized anxiety disorder) Anxiety disorder, unspecified Hypertensive urgency Hyperlipidemia, unspecified History of stroke Hemiplegic migraine Major depressive disorder, recurrent, unspecified ([facility]/HCC) MDD (major depressive disorder), recurrent episode, moderate ([facility]/HCC) Muscle weakness (generalized) Obesity, unspecified Primary malignant neoplasm of bladder ([facility]/HCC) Palpitations Old myocardial infarction Severe episode of recurrent major depressive disorder, without psychotic features ([facility]) Stroke-like symptoms Status [...] States pain in groin Cat/Feline Products Hives Richards Hives Topiramate Hives and Other Blue Dye [...] systolic function. No significant (more content not included)...[facility] 02-24-2023 Evaluation + Plan noteExtracted from: Title:Discharge Note Author:PERLA PRADO, Leann Javier ate:02/24/23 Discharge To, Anticipated II - Home [...] PRN With When Contact Information Robin Kris [address] [place] [address]- Business (1) Additional Instructions: Office is closed for lunch between Noon and 1 p.m. Please contact office for follow up appointment. Thank you! SHAIKH MARY Within 5 to [address] [place] [address] [employer] (1) Additional Instructions: Not a patient. Syncope, [id number] Extracted from: Title:APSO Note Author:PERLA PRADO, Mbanefo [...] heart monitor. Check orthostatic vital signs. Ordered: [facility] Hospital Care/Day Moderate 35 Minutes 64324 2. RAMA (acute kidney injury) (N17.9: Acute kidney failure, unspecified) Acute kidney injury secondary to ATN from dehydration and antihypertensives. Resolved. Treated with IV fluid. Ordered: [facility] Hospital Care/Day Moderate 35 Minutes 21120 3. Hypokalemia (E87.6: Hypokalemia) Secondary to poor oral intake. Potassium level improving to 3.4. We will give patient additional potassium chloride. Ordered: potassium chloride, 40 mEq = 2 tab(s), Tab-ER, Oral, Once, Stop date 02/24/23 10:00:00 EDT, Routine, Start date 02/24/23 10:00:00 EDT, 02/24/23 9:46:00 EDT [facility] Hospital Care/Day Moderate 35 Minutes 94935 4. Diabetes mellitus (E11.9: Type 2 diabetes mellitus without complications) Continue sliding scale insulin. Ordered: [facility] Hospital Care/Day Moderate 35 Minutes 44601 5. High cholesterol (E78.00: Pure hypercholesterolemia, unspecified) On Lipitor at home. Ordered: [facility] Care/Day Moderate 35 Minutes 99173 6. Hypertension (I10: Essential (primary) hypertension) Blood pressure on the low side of normal. 7. CAD (coronary artery disease) (I25.10: Atherosclerotic heart disease of [place] coronary artery without angina pectoris) Continue on aspirin, Plavix. 8. Aortic aneurysm (I71.9: Aortic aneurysm of unspecified site, without rupture) Status post surgery. 9. Obese (E66.9: Obesity, unspecified) Recommend therapeutic lifestyle modification changes. 10. On deep vein thrombosis (DVT) prophylaxis (Z79.899: Other terminal clerk (current) drug therapy) Heparin. Disposition: Home soon pending physical therapy evaluation. I discussed the diagnosis and plan of care with the patient at the bedside. Moderate level of MDM based on addressing above issues. This documentation was transcribed using voice recognition software. Several attempts were made to ensure accuracy. However inadvertent computerized chief of surgery errors may be present. Leann Gunter. Hospitalist. [...] vein thrombosis (DVT) prophylaxis (Z79.899: Other terminal clerk (current) drug therapy) SCD, heparin Orders: acetaminophen, [...] XR Spine Lumbosacral 2 or 3 Views [facility]04-10-2023 Hospital Discharge instructions Patient Education 02/24/2023 11:49:54 Syncope, Sktl-ue-Eqjl Syncope Syncope is when you pass out [...] pee (urine) pale yellow. General instructions Take qbyd-kbi-dvlroyr and prescription medicines only as told by [...] 04/21/2009 Document Revised: 12/16/2018 Document Reviewed: 12/16/2018 [employer] Patient Education 2020 [employer] Follow Up Care 02/24/2023 00:01:37 With:Robin Ponce Address: [address] [place] [address] [place] [address]- Business (1) When: Unknown Comments:Office is closed for lunch between Noon and 1 p.m. Please contact office for follow up appointment.Thank you! With:SHAIKH MARY Address: [address] [place], [place] [address] [address] Business (1) When:5 to 7 days Comments:Not a patient. [facility] noteNo assessment information available [facility] Work Phone: Hospital course Narrative No data available for this section [facility] No data available for this section [facility] Summary Purpose Family History No Family [...] Assisted Dressing Independent Toileting Assisted Feeding Independent Rubber Tile Floor Layer Independent Med Delivery whole Wound Care Documentation [...] Discharging to Facility/ Agency Name: [facility] FAX [address] [place] [address] Address: Phone: Fax: Dialysis Facility (if applicable) Name: Address: Dialysis Schedule: Phone: Fax: Composition Board Press Operator/Steward/Stewardess Economy Class signature: EDT PHYSICIAN SECTION Prognosis: Good Condition at Discharge: Stable Rehab Potential (if transferring to Rehab): {Prognosis:[id number]} Recommended Labs or Other Treatments After Discharge: [...] called to the trauma nurse line at [phone] and please leave a message. Trauma is a life-threatening condition. Your doctor will want to closely monitor you. Be sure to goto all of your appointments. * Attachments The following attachments cannot be sent through Care Everywhere. * Fall Prevention (Uruguayan) * Falls: Get Up Safely Instruction (Uruguayan) * Vasovagal Syncope (Uruguayan) documented in this encounter History of Present [...] 4 wheeled walker, Cane, Quad cane, Crutches, Sales Representative Printing, Sock aid(pt reported no use of DME at baseline) ADL Assistance: Independent Homemaking Assistance: Independent Homemaking Responsibilities: Yes Meal Prep Responsibility: Primary Laundry Responsibility: Primary Cleaning Responsibility: Primary Ambulation Assistance: Independent Transfer Assistance: Independent Active Health Support Specialist: Yes Mode of Transportation: Car 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[employer], 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 Leisure & Hobbies: playing [...] feeling like L LE was going to [facility] functional mobility. pt with no [...] L LE. pt unable to identify when blurb writer was touching L UE (on elbow [...] Plan Times per week: 3-5x/wk AM-PAC Score AM-PAC Inpatient Daily Activity Raw Score: 16 (09/01/201440) AM-PAC Inpatient ADL T-Scale Score : 35.96 (09/01/201440) ADL Inpatient CMS 0-100% Score: 53.32 (09/01/201440) ADL Inpatient CMS G-Code Modifier : CK [...] activity in order to increase coordination and supervisor fur floor worker strength to L hand Short term goal 6: dem SBA during functional transfers/functional mobility with LRD, as needed Therapy Time Individual Concurrent Group Co-treatment Time In 1316 Time Out 1404 Minutes 48 Variance: 40 Debi Marques OTR/L * Taya Bergeron SLP - 09/01/2020 11:39 AM EDT Speech Language Pathology Facility/Department: [address] ORTHO/MED SURG Initial Speech/Language/Cognitive Assessment NAME: [...] the bathtub. +LOC, on Plavix. Taken to [facility] where a stroke alert was initiated. CT head at 6pm today at [facility] did not show intracranial bleed. Transferred to [facility] for trauma and neurology work-up. Upon arrival, Pt without neurological deficit, GCS 15, c/o REYNA. Pt deemed hemodynamically stable and was sent to CT. Pain: Pain Assessment Pain Assessment: Faces Pain Level: 0 Assessment: Pt presents with mild-moderate cognitive deficits characterized by difficulty with immediate and short-term memory, verbal reasoning skills, and word associations. Pt. [place], which may haveaffected results of evaluation. Multiple repetitions provided throughout evaluation. Pt. Presents with no dysarthria, no O/M deficits at this time. ST to follow up and provide treatment to address noted deficits. Education provided. Recommendations: Requires KERFER MACHINE OPERATOR Intervention: Yes Duration/Frequency of Treatment: 3-5X/week [...] 1126 Minutes 12 Completed by: Debi Andrade Primary Care Sales Representative Clinician Cosigned By: Taya Bergeron M.A.CCC/KERFER MACHINE OPERATOR 09/01/2020 11:40 AM * Caleb [facility] [...] 186* DUPLICATE ORDER 169* COAGS: Recent Labs 08/30/20223309/01/2015 APTT 24.4 PENDING INR 1.0 PENDING RADIOLOGY: [...] MD 09/01/2020 4:00 PM * Nader Petit, BUSINESS AND MARKETING TEACHER - 09/01/2020 10:02 AM EDT Physical Therapy Facility/Department: [address] ORTHO/MED SURG Daily Treatment Note NAME: [...] Safe use of RW Barriers to Learning: [place] REQUIRES PT FOLLOW UP: Yes Activity Tolerance [...] 44 Timed Code Treatment Minutes: 40 Minutes BUSINESS AND MARKETING TEACHER returned to pt's room to have her attempt stair management, to return home safely Individual Individual Time In 1140 Time Out 1205 Minutes 25 Timed Code Treatment Minutes: 9 Minutes (a doctor interrupted PT, to assess the pt) Nader Petit, BUSINESS AND MARKETING TEACHER * Debi Marques, OT - 09/01/2020 8:34 AM EDT Occupational [...] 08/31/2020 3:09 PM EDT Physical Therapy Facility/Department: [facility] ED Initial Assessment NAME: Yeyo Avila [...] Ambulation Assistance: Independent Transfer Assistance: Independent Active Health Support Specialist: Yes Mode of Transportation: Car Occupation: Retired [...] section and content) DATE CREATED AUTHOR 04/06/2019 [facility] DATE CREATED AUTHOR AUTHOR'S ORGANIZ ATION 09/12/2020 [facility] DATE CREATED AUTHOR AUTHOR'S ORGANIZ ATION 03/28/2021 [facility] DATE CREATED AUTHOR AUTHOR'S ORGANIZ ATION 03/03/2022 [facility] DATE CREATED AUTHOR AUTHOR'S ORGANIZ ATION 04/25/2023 [facility] DATE CREATED AUTHOR AUTHOR'S ORGANIZ ATION 02/16/2024 [facility] DATE CREATED AUTHOR AUTHOR'S ORGANIZ ATION 03/01/2024 [facility] Reason for Visit (unrecogniz ed section and content) Reason Comments Fall Trauma Status Reason Specialty Diagnoses / Procedures Referre d By Contact Referred To Contact Diagnoses Syncope and collapse Procedures Syncope and collapse Hermelindo Adkins MD [facility] [address], [address] [place] [address] [facility] Care Teams (unrecognized sec tion and [...] BE BASED ON THE PRIMARY CLINICAL RECORDS. [employer] provides no warranty or guarantee of the accuracy or completeness of information in this document.
[2024-03-10 09:14] LABS: Estimated Average Glucose 140 mg/dL; Glycohemoglobin A1C 6.5 % (4.5-6.2)
[2024-03-10 10:03] LABS: Chol HDL Ratio 2.8; Cholesterol 129 mg/dL (<=200); Free T3 2.31 pg/mL (2.18-3.98); HDL Cholesterol 46 mg/dL (40-60); LDL Cholesterol Calculated 62.6 mg/dL; Thyroid Stimulating Hormone 1.428 uIU/mL (0.358-3.740); Triglycerides 102 mg/dL (<=150); VLDL CHOLESTEROL 20.4 mg/dL
== END 2024-03-10 08:17 | disposition home or self-care (01) ==
LOC: RAD 08:16
PROVIDERS: PCP Family Medicine; Visit Provider Family Medicine
DX: M81.0 Age-related osteoporosis without current pathological fracture (principal); M85.80 Other specified disorders of bone density and structure, unspecified site; E11.9 Type 2 diabetes mellitus without complications; I25.10 Atherosclerotic heart disease of native coronary artery without angina pectoris; K62.5 Hemorrhage of anus and rectum
CPT/HCPCS: 36415; 77080; 80061; 83036; 84436; 84443; 84481

== ENCOUNTER 2024-04-21 20:16 | Emergency (ER) | payer MEDICARE, SELFPAY ==
[2024-04-21 20:24] VITALS: BP 147/85; PULSE 77; TEMP 36.8; O2SAT 96; BMI 36.6
--- OUTSIDE RECORDS SUMMARY | 2024-04-21 20:27 | XMS_ITS ---
Patient Summarization (C-CDA 2.1 CCD) Created on: April 21, 2024 YEYO AVILA : 1955 Sex: Female Author Organization Sample organization Care Team Providers Care Immigration Lawyer Name Role Phone Danilo Ponce Primary Care Provider [phone] HERMELINDO ADKINS Consulting Unavailable DANILO PONCE Primary Care Unavailable HERMELINDO ADKINS Attending Unavailable HERMELINDO ADKINS Admitting Unavailable GENEVIEVE, LINGLING Consulting Unavailable ELTAJES, EHAB A Attending Unavailable CONCEPCIÓN EHAB A Admitting Unavailable DANILO PONCE Referring Unavailable DANILO PONCE Primary Care Unavailable MD Darby Hernandez Primary Care Provider MD Ese Tan Attending Provider SHAIKH HERNANDEZ Primary Care Physician [phone] DR DANK JOHNSON Admitting UnavailDR DANILO Marie Primary Care Unavailable DR DANK JOHNSON Attending UnavailREYNA Ni Consulting UnavailLISSETT Simon Consulting Unavailable DR DANILO SEGOVIA Primary Care Unavailable FAVIO Bingham, JEFFRY Admitting Unavailable SHELLEY II, TIMOTEO Consulting Unavailable TAMLYN Otilia, JEFFRY Attending Unavailable TAMDONN ., JEFFRY Consulting Unavailable FILUTZE, LAURIE Consulting Unavailable CASANDRA HERNANDEZIKH H Admitting Unavailable SHAIKH Enio HERNANDEZ Attending Unavailable SHAIKH Enio HERNANDEZ Primary Care Unavailable DR DANILO SEGOVIA Admitting Unavailable DR DANILO SEGOVIA Attending Unavailable DR DANILO SEGOVIA Consulting Unavailable SHAIKH Enio HERNANDEZ Primary Care Unavailable MISC, DR SONI Admitting Unavailable MISC, DR SONI Attending Unavailable MISC, DR SONI Consulting Unavailable KRIS Bingham, DR KELLY Primary Care Unavailable KATELYN, DR MERCEDES Bates Consulting Unavailable DANIELC, DR SONI Attending Unavailable CANDE, DR SONI Consulting Unavailable DANIELC, DR SONI Admitting Unavailable FASTEPHANIED, RTENT H Primary Care Unavailable REGIS, DR ZELALEM Baets Admitting Unavailable FAKARINA, TRENT H Primary Care Unavailable REGIS, DR ZELALEM Bates Attending Unavailable REGIS, DR ZELALEM Bates Consulting Unavailable MIKAEL GUZMAN Consulting Unavailable Danilo Ponce Primary Care Physician JONO LOPEZ Attending Unavailable REBEKA PARDO Attending Unavailable ALEXIA CLINE Attending Unavailable JONO LOPEZ Attending Unavailable DOLAN, Arturo Bates Attending Unavailable Hajdari, Astrit H Attending Unavailable FAWMARIO, TRENT Primary Care Unavailable DOLAN, Arturo Bates Attending Unavailable DOLAN, Arturo R Attending Unavailable DOLAN, Arturo R Admitting Unavailable DOLAN, Arturo R Attending Unavailable DOLAN, Arturo R Referring Unavailable Allergies Allergy Classification Reported Allergen(s) Allergy Type Date of Onset Reaction(s) Facility Angiotensin Converting Enzyme (RYANNE) Inhibitors (1 source) Lisinopril Drug Allergy [facility] Repository Anti-Epileptic Agents (1 source) topiramate Drug Allergy [facility] Repository Berries (1 source) [place] Food Allergy [facility] Repository Cats (1 source) Cat Animal Allergy (Dander) [facility] Repository Dextroamphetamine (1 source) Dextroamphetamine Drug Allergy [facility] Repository Iodine (and Iodine containting drugs) (1 source) Iodine (And Iodine Containting Drugs) Drug Allergy [facility] Repository Unclassified (2 sources) BLUE DYE; Translations: [BLUE DYE] Drug allergy (disorder) [facility] Repository (7 sources) Aspirin; Translations: [Aspirin] Drug Allergy 016 Nausea [facility] Comment on above: uncoded aspirin (5 sources) atorvastatin; Translations: [atorvastatin] Drug Allergy 014 Unknown Reaction [facility] (8 sources) Lisinopril; Translations: [Lisinopril] Drug Allergy Swelling of Lip/Tongue/Th roat, morphine [facility] (2 sources) Morphine; Translations: [morphine] Drug Allergy [facility] (4 sources) strawberry allergenic extract; Translations: [[place]] Drug Allergy [facility] (5 sources) topiramate; Translations: [topiramate] Drug Allergy Urticaria (disorder) [facility] (1 source) cat dander Allergy to substance [facility] (2 sources) Iodinated Contrast Media; Translations: [IODINATED CONTRAST MEDIA] Allergy to substance [facility] (4 sources) Contrast media; Translations: [Contrast Dye] Drug allergy Urticaria (disorder) [facility] (4 sources) [place]; Translations: [Strawberries] Drug allergy Urticaria (disorder) [facility] (4 sources) SUMAtriptan; Translations: [sumatriptan] Drug Allergy [facility] (1 source) Acetaminophen / Aspirin / Caffeine Drug Allergy [facility] Repository (2 sources) Dextroamphetamine; Translations: [Lipitor] Drug Allergy [facility] Rep[facility] (2 sources) Iodine (And Iodine Containting Drugs) Drug allergy (disorder) [facility] Rep[facility] (1 source) Ketorolac Drug Allergy [facility] Rep[facility] (1 source) Plasmin Drug Allergy [facility] Rep[facility] (3 sources) topiramate; Translations: [Topamax] Drug Allergy [facility] Repository (2 sources) Dhe Drug allergy (disorder) [facility] Repository (2 sources) Cat/Feline Product Derivatives Drug allergy (disorder) [facility] Repository (1 source) Iodine; Translations: [IODINE] Drug Allergy [facility] Repository (1 source) CAT/FELINE PRODUCTS; Translations: [CAT/FELINE PRODUCTS] Propensity to adverse reactions to drug (disorder) 016 [facility] Repository Encounters Encounter Date Encounter Type Care Provider Facility Start: 01-14-2024 End: 01-14-2024 ambulatory VIJAYAB CONCEPCIÓN [facility] Start: 12-30-2023 End: 12-31-2023 ambulatory Arturo DOLAN Facility[place] [place] Start: 12-30-2023 End: 12-30-2023 Patient encounter procedure Arturo DOLAN [facility] Start: 12-18-2023 End: 12-19-2023 ambulatory Arturo DOLAN Facility:CD:[id number] Start: 11-13-2023 End: 11-14-2023 ambulatory Arturo DOLAN Facility:CD:[id number] Start: 11-12-2023 End: 11-13-2023 ambulatory Arturo DOLAN Facility: [place] Start: 07-13-2023 End: 07-13-2023 Emergency department patient visit Zaki Muñoz Facility:[facility] [place] Start: 07-13-2023 End: 07-13-2023 [facility] Start: 07-08-2023 End: 07-08-2023 ambulatory ALEXIA CLINE [facility] Start: 04-25-2023 End: 04-25-2023 [facility] Start: 04-15-2023 End: 04-15-[address] DANILO PONCE . Facility:[facility] Start: 04-01-2023 End: 04-01-[address] DANK JOHNSON Facility:[facility] Start: 04-01-2023 End: 04-02-[address] DOCTOR CASTELLON Facility:[facility] Start: 03-24-2023 End: 03-25-[address] DOCTOR CASTELLON Facility:[facility] Start: 03-10-2023 End: 03-10-2023 [facility] Start: 02-24-2023 End: 02-24-2023 Observation Sunshine Jana DUARTE [facility] Start: 02-14-2023 End: 02-14-[address] DANILO PONCE . Facility:[facility] Start: 10-05-2022 End: 10-05-[address] ZELALEM STACY Facility:[facility] Start: 09-23-2022 ambulatory SHAIKH Enio HERNANDEZ Facilit y:[facility] Start: 02-18-2022 End: 02-18-2022 Patient encounter procedure MD Shaikh Hernandez Work Phone: [facility] [place] Start: 03-21-2021 End: 03-22-2021 ambulatory REBEKA PARDO Facility:[facility] Start: 08-31-2020 End: 09-01-2020 Evaluation and management of inpatient HERMELINDO Mehta ADKINS [facility] Start: 08-30-2020 End: 09-01-2020 Evaluation and management of inpatient Dank Diamond Nunes [facility] 2C Ortho/Med Surg Comment on above: Injury of head, init ial encounter (Primary Dx) Immunizations Immunization Date Immunization Notes Care Provider Fa [facility] 08-17-2021 influenza virus vaccine, unspecified formulation Guidojorge FELICIA [facility] 02-15-2021 SARS-CoV-2 (COVID-19 ) Ad26 vaccine, recombinant Ronobir FELICIA [facility] 01-15-2021 SARS-CoV-2 (COVID-19 ) Ad26 vaccine, recombinant Ronobir FELICIA [facility] 09-19-2017 pneumococcal conjuga te vaccine, 13 valent Arturo DOLAN [facility] [place] Medications Current Medications Medication Drug Class(es) Dates Sig (Normalized) Sig (Original) acetaminophen 325 mg oral tablet (1 source) Start: 08-31-2020 650 mg, Oral, EVERY 4 HOURS PRN, Pain Mild (1-3), Pain Mild (1-3) or Fever greater than 100.5 F (38 C), Starting [facility] 08/31/20 at 0353 Maximum dose of [...] by mouth every six hours as needed duketobhbb-ujizutwsbvkgj-fcxrxgwd (DAISY CET, ESGIC) 50-325-40 MG per tablet [...] for 3 day(s), 15 tab(s), Refill(s) 0, [facility]pharm[facility] #[id number], 165, cm, 07/13/23 11:34:00 EDT, Height/Length [...] chocolate. Start: 08-22-2020 take 1 capsule by [facility] once daily DULoxetine (CYMBALTA) 60 MG [...] Start: 06-01-2020 take 1 capsule by mo [facility] four times daily as needed for anxiety [...] administer the echo contrast. polyethylene glycol 3350 64761 mg powder for oral solution (1 source) [...] (2 times per day), First dose on [facility] 08/31/20 at 0900 Start: 08-31-2020 take 10 mL intraveno us route once as needed 10 mL, Intravenous, PRN, Line Care, After every IV line use, Starting [facility] 08/31/20 at 0353 Start: 08-30-2020 0.9 [...] 10 MIN PRN, High Blood Pressure, Starting [facility] 08/31/20 at 0353 Administer 10 mg [...] End: 08-31-2020 prochlorperazine (COMPAZINE) injection 10 mg Payers Date Payer Category Payer Medicare [id number] 1.2.8 [id number] 1957 Self-pay [id number] 1955 Unknown [id number] 2.16.8 [id number] 1955 Unknown [id number] 2.16.8 40.1.700869.3.579.2.647 1955 Unknown [id number] 2.16.84 0.1.115439.3.579.2.593 1955 Unknown [id number] 2.16.84 0.1.005834.3.579.2.593 1955 Unknown [id number] 2.16.84 0.1.800722.3.579.2.593 1955 Unknown [id number] 2.16.84 0.1.054631.3.579.2.593 1955 Unknown [id number] 2.16.84 0.1.616840.3.579.2.593 1955 Unknown [id number] 2.16.84 0.1.957210.3.579.2.593 1955 Unknown [id number] 2.16.84 0.1.949271.3.579.2.593 1955 Unknown [id number] 2.16.8 40.1.552933.3.579.2.727 1955 Unknown [id number] 2.16.8 40.1.104892.3.579.2.727 1955 Unknown [id number] 2.16.8 40.1.045999.3.579.2.727 1955 Unknown [id number] 2.16.8 40.1.790977.3.579.2.727 1955 Unknown [id number] 2.16.8 [id number] Self-pay Self Pay [id number] Plan of Treatment Date Care Activity Detail Author Start: 09-01-2021 Creatinine measurement Creatinine mo nitoring [place], [place] Start: 09-01-2021 HbA1c (Bld) [Mass fraction] A1C test (Diabetic or Prediabetic) [place], [place] Start: 09-01-2021 Lipid panel Lipid screen [place], [place] Start: 09-01-2021 Potassium monitoring Potassium monit oring [place] Start: 08-31-2020 Annual Wellness Visi t (AWV) Annual Wellness Visit (AWV) [place], [place] Start: 07-18-2020 Influenza vaccination Flu vaccine (# 1) [place], [place] Start: 2007 Screening for malign ant neoplasm of breast Breast cancer screen [place], [place] Start: 2007 Screening for malign ant neoplasm of colon Colon cancer screen colonoscopy [place], [place] Start: 2007 Shingles Vaccine (1 of 2) Shingles V accine (1 of 2) [place], [place] Start: 1978 Screening for malign ant neoplasm of cervix Cervical cancer screen [place], [place] Start: 1976 DTaP/Tdap/Td vaccine (1 - Tdap) DTaP/Tdap/Td vaccine (1 - Tdap) [place], [place] Start: 1975 Diabetic microalbumi betzy test Diabetic microalbuminuria test [place], [place] Start: 1972 HIV screening HIV screen [place], [place] Start: 1967 Diabetic foot examination Diabetic f oot exam [place], [place] Start: 1967 Diabetic retinal exam Diabetic retin al exam [place], [place] Start: 1957 Hepatitis C screening Hepatitis C sc reen [place], [place] Oxygen therapy [[facility]] Initiate Oxygen Therapy Protocol Respiratory Care Routine Daily until discontinued starting 08/31/2020 [place] Comment on above: Daily until disconti nued starting 08/31/2020 End: 08-31-2020 Speech and language therapy regime [place], [place] Comment on above: One Time for 1 Occur rences starting 08/31/2020 until 08/31/2020 Problems Active Problems Problem Classification Problem Date [...] Coronary arteriosclerosis; Translations: [Atherosclerotic heart disease of [place] coronary artery without angina pectoris] Onset: 02-24-2023 [...] current use of drug therapy; Translations: [Other skilled nursing (current) drug therapy] Onset: 02-24-2023 Episodic Other aftercare (1 source) terminal makeup operator (current) use of insulin; Translations: [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 USE OF INSULIN] Onset: 04-16-2023 Episodic Other aftercare (1 source) Other terminal gauger (current) drug therapy; Translations: [OTH USP CURRENT DRUG THERAPY] Onset: 04-16-2023 Episodic Other [...] 03-20-2021 Episodic Other aftercare (1 source) terminal makeup operator (current) use of antithrombotics/anti platelets; Translations: [USP ANTITHROMBOT/ANTIPLA TLETS] Onset: 2022 Episodic Other aftercare (1 source) terminal makeup operator (current) use of aspirin; Translations: [USP CURRENT USE OF ASPIRIN] Onset: 2022 Episodic Other aftercare (1 source) senior care (current) use of oral hypoglycemic drugs; Translations: [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 USE ORAL HYPOGLYCEMIC DX] Onset: 2022 Episodic [...] and transurethral resection of bladder tumor 09-07-2010 Procedures Date Procedure Procedure Detail Performing Clinician [...] Phone: Start: 09-01-2020 Hemoglobin glycosylated a1c Hermelindo Janine Adkins Work Phone: Start: 09-01-2020 Lipid panel Hermelindo Janine Adkins Work Phone: Start: 09-01-2020 TRAUMA PANEL Hermelindo Janine Adkins Work Phone: Start: 08-31-2020 CATHETER REMOVAL HERMELINDO LUCILLE Start: 08-31-2020 ADVANCE DIET TOLERATED (NURSING COMMUNICATION) HERMELINDOWHITNEY ADKINS Start: 08-31-2020 DIET CARB CONTROL HERMELINDOWHITNEY [...] 08-31-2020 MISCELLANEOUS NURSING CARE ORDER (SPECIFY) HERMELINDO ADKISN Start: 08-31-2020 NIHSS HERMELINDO ADKINS Start: 08-31-2020 NOTIFY PHYSICIAN (SPECIFY) HERMELINDO ADKINS Start: 08-31-2020 NURSING SWALLOW ASSESSMENT HERMELINDO ADKINS Start: 08-31-2020 OT EVAL AND TREAT HERMELINDO ADKINS Start: 08-31-2020 PROVIDE PATIENT EDUCATION MATERIALS HERMELINDO ADKINS Start: 08-31-2020 PT EVAL AND TREAT HERMELINDO ADKINS Start: 08-31-2020 REASON FOR NO CHEMICAL VTE PROPHYLAXIS HERMELINDO ADKINS Start: 08-31-2020 CONDUIT CLEANER EVAL AND TREAT HERMELINDO ADKINS Start: 08-31-2020 [...] HERMELINDO ADKINS Start: 08-30-2020 Antibody screen Dank Zohn Start: 08-30-2020 Ct angiography neck w/contrast/noncontrast Moisés A Tyda Start: 08-30-2020 CT LUMBAR SPINE TRAUMA RECONSTRUCTION Pati Means Diop Work Phone: Start: 08-30-2020 CT THORACIC [...] bypass surgery MD Shaikh Hernandez Work Phone: Results Test Name Value Interpretation Reference Range Facility 36on 02-05-2024 36 PT DAUGHTER STATES SHE IS ON VACATION, SHE FELICIA;L CALL THE OFFICE NEXT WEEK Normal [facility] 36on 01-28-2024 36 I have been tying to call pt for about a week, no vm 01/27 Normal [facility] Telephoneon 01-15-2024 Telephone [id number] Yeyo Avila 1955 F Date Provider Department Center 01/15/2024 KISHAN DONOHUE BRITT Bocanegra No family history on file [facility] Office Visiton 01-14-2024 Follow-up visit [id number] Yeyo Avila 1955 F Date Provider Department Center 01/14/2024 Jesse-REBEKA PARDO CARD [facility] No family history on file Level of Service:58440 SC OFFICE/OUTPATIENT ESTABLISHED MOD MDM 30 MIN Normal [facility] Lab Reportson 01-06-2024 Lab Reports [id number] #1.00TIFF Normal [facility] Lab Reports [id number] #1.00TIFF Normal [facility] Lab Reports [id number] #1.00TIFF Normal [facility] Lab Reportson 01-05-2024 Lab Reports [id number] #1.00TIFF Normal [facility] Lab Reportson 01-02-2024 Lab Reports [id number] #1.00TIFF Normal [facility] Lab Reports [id number] #1.00TIFF Normal [facility] Consent for Procedure/Surger yon 12-30-2023 Consent for Procedure/Surgery [id number] 7#1.00TIFF [facility] Consent for Treatmenton 12-18 Consent for Treatment [id number] #1.00TIFF [facility] IntraOperative Documentson 0 12-30-2023 IntraOperative Documents [id number]#1.00TIFF [facility] Main OR Intraoperative Recor don 12-30-2023 Main OR Intraoperative Record IntraOp Document Type FTURO Summary Primary Physician: Arturo DOLAN MD Finalized Date/Time: 12/30/23 11:54:47 Pt. Name: YEYO AVILA D.O.B./Sex: 1955 Female Med Rec #: [id number] Physician: Arturo DOLAN MD Financial #: [id number] Pt. Type: O Room/Bed: / Admit/Disch: 12/30/23 10:56:10 - Institution: Case Times FTURO Entry 1 Patient Times In Room 12/30/23 11:48:00 Out Room 12/30/23 11:59:00 Procedure Times Start 12/30/23 11:51:00 Stop 12/30/23 11:54:00 Anesthesia Times Last Modified By: Kevin QUEZADA, FELICIAORAndie 12/30/23 11:54:21 Case Attendance FTURO Entry 1 Entry 2 Entry 3 Case Attendee MAGDALENO PRADO, Arturo Brown RN, CNOR, Parminder CRUZ, Ashlee Chaves Role Performed Surgeon - Primary Third Mate - Primary Scrub - Primary Time In 12/30/23 11:48:00 12/30/23 11:48:00 12/30/23 11:48:00 Time Out 12/30/23 11:59:00 12/30/23 11:59:00 12/30/23 11:59:00 Procedure CYSTOSCOPY LOCAL WITH CYSTOSCOPY LOCAL WITH CYSTOSCOPY LOCAL WITH STENT REMOVAL(Left) STENT REMOVAL(Left) STENT REMOVAL(Left) Comments Last Modified By: eKvin QUEZADA, FELICIAOR, Kevin QUEZADA, FELICIAOR, Kevin QUEZADA, SALVADOR, Andie 12/30/23 Andie 12/30/23 Andie 12/30/23 11:54:22 11:54:22 11:54:22 Surgical Procedures FTURO Entry 1 Procedure Description Procedure CYSTOSCOPY LOCAL WITH Modifiers Left STENT REMOVAL Surgeon Description CYSTO LEFT STENT REMOVAL Primary Procedure Yes Primary Surgeon Arturo DOLAN MD Start 12/30/23 11:51:00 Stop 12/30/23 11:54:00 Anesthesia Type Local Surgical Service Urology Wound Class 2 - Clean-Contaminated Last Modified By: Kevin QUEZADA, FELICIAOR, Andie 12/30/23 11:54:23 General Case Data FTURO Pre-Care [...] Position Verified Availability Equipment, Medication Time Out MAGDALENO PRADO, Arturo Bates, Verified (If Participants SALVADOR Brown RN, Applicable) Parminder Chaves CST, Ashlee Estrada Time Out Complete 12/30/23 11:50:00 Allergies Reviewed? [...] SALVADOR Brown RN, Ruthann 12/30/23 11:54 Normal [facility] Main OR Preoperative Recordo n 12-30-2023 Main OR Preoperative Record Holding Area Document Type FTURO Summary Primary Physician: Arturo DOLAN MD Finalized Date/Time: 12/30/23 11:52:08 Pt. Name: YEYO AVILA /Sex: 1955 Female Med Rec #: [id number] Physician: Arturo DOLAN MD Financial #: [id number] Pt. Type: O Room/Bed: / Admit/Disch: 12/30/23 [...] Complaints of Pain: No Skin Integrity Intact, [place], Warm, & Dry Vitals - EU Blood Pressure 166/93 Pulse 87 bpm Respirations 18 br/min SPO2 97 % RN Reviewed Yes Last Modified By: SALVADOR Brown RN, Ruthann 12/30/23 11:52:06 Finalized By: SALVADOR Brown RN, Ruthann Document Signatures Signed By: SALVADOR Brown RN, Ruthann 12/30/23 11:52 Normal [facility] Operative Reporton Operative Report Patient: YEYO [...] procedure well and was subsequently discharged home. [facility] Comment on above: Result Comment: Elec tronically Signed By: MAGDALENO PRADO, Arturo Busch.br\Date and Time Signed: 12/30/23 11:59 EST Lab Reportson 12-29-2023 Lab Reports [id number] #1.00TIFF [facility] Lab Reportson 12-19-2023 Lab Reports [id number] #1.00TIFF [facility] Lab Reports [id number] #1.00TIFF [facility] Operative Reporton Operative Report [id number] #1.00TIFF [facility] Lab Reportson 12-12-2023 Lab Reports [id number]# 1.00TIFF [facility] Lab Reports [id number] #1.00TIFF [facility] Consultation Noteon 12-04-19 Consultation Note [id number] #1.00TIFF [facility] Formson 12-04-2023 Forms [id number]# 1.00TIFF Normal [facility] Documentationon 12-03-2023 Documentation [id number] Yeyo Avila 1955 F Date Provider Department Center 12/03/2023 ALEXIA SUBRAMANIAN [facility] No family history on file Normal [facility] Consent for Procedure/Surger yon 11-28-2023 Consent for Procedure/Surgery [id number]#1.00TIFF [facility] RAD - MISCon 11-19-2023 RAD - MISC [id number] #1.00TIFF [facility] Consent for Procedure/Surger yon 11-13-2023 Consent for Procedure/Surgery [id number] #1.00TIFF [facility] ECG 12-Leadon 11-13-2023 ECG 12-Lead [id number] #1.00TIFF [facility] Lab Reportson 11-13-2023 Lab Reports [id number] #1.00TIFF [facility] Operative Reporton Operative Report [id number] #1.00TIFF [facility] RAD - MISCon 11-13-2023 RAD - MISC [id number] #1.00TIFF [facility] Ambulatory Visit Summaryon 1 01-13-2023 Ambulatory Visit Summary YEYO AVILA :1955 Visit Date:11/12/2023 Ambulatory Visit Instructions Your Diagnosis Kidney stones History of bladder cancer Renal cyst, left Tests Performed Urnls Dip Stick Auto w/o Microscopy POC 61206 Your Care Team Attending Physician - Arturo DOLAN MD Primary Care Physician - Danilo Ponce MD This Is Your Medications List [...] Following Appointments Follow Up with MAGDALENO PRADO, Arturo Bates, ALONSO When: Where: [facility] [address] , [place] [address]- Medications What How Much When Instructions Unchanged [...] Urnls Dip Stick Auto w/o Microscopy POC 91127 (11/12/2023) Bilirubin Urine Dipstick - Negative Blood Urine Dipstick - 2+ Moderate Glucose Urine Dipstick - Negative Ketones Urine Dipstick - Negative Leukocytes Urine Dipstick - Negative Nitrite Urine Dipstick - Negative Protein Urine Dipstick - Trace Specific Wil[place] Urine Dipstick - >=1.030 Urine Appearance Urine [...] survey. We (more content not included)... Normal [facility] ECG 12-Leadon 11-12-2023 ECG 12-Lead [id number] #1.00TIFF Normal [facility] ED Note-Physicianon 11-12-20 ED Note-Physician [id number] #1.00TIFF Normal [facility] Lab Reportson 11-12-2023 Lab Reports [id number] #1.00TIFF Normal [facility] Patient Educationon 11-12-20 Patient Education Nephrology [...] these instructions at home: Medicines ? Take baft-mwi-zqhjguf and prescription medicines only as told by [...] or treat constipation, such as: ? Take nfhx-gvw-comynsu or prescription medicines. ? Eat foods that [...] provider. Document Revised: 03/12/2023 Document Reviewed: 07/08/2022 [employer] Patient Education ? 2022 [employer] Laser Therapy for Kidney [facility] [...] including vitamins, herbs, eye drops, creams, and zpnt-qel-gozmzdj medicines. ? Any problems you or family [...] kidney st (more content not included)... Normal [facility] RAD - CT Reporton 11-12-2023 RAD - CT Report [id number] #1.00TIFF Normal [facility] Urology Office/Clinic Noteon 11-12-2023 Urology Office/Clinic Note Chief Complaint Pt is here for [facility] ER f/u HPI Staff Yeyo is a 68 y.o. female here for follow up to [facility] ER. Pt has seen [facility] in the past. Previous Dx: bladder cancer, kidney stones. S/P cystoscopy done on 02/04/22. MRI of abdomen done on 02/18/22 showed nonenhancing renal cyst superior pole left kidney, no renal mass. Pt presented to [facility] ER on 11/11/23 for left flank pain. CT a/p w/o contrast done on 11/11/23 showed [id number] stone lodged at the left renal pelvis, nonobstructing stones clustered at the lower pole left kidney measuring 2w2g0nn. BUN 16.0 & CRE 0.86 done on [...] of Present Illness Tests reviewed: reviewed UA, [facility] records, CT, MRI I have reviewed the previous health record information and history for this patient from Dr. Tan and [facility]. I have reviewed and verified the staff [...] Assessment/Plan Dr. Tan pt following up to [facility] ED visit on 11/11/23 due to L [...] She is currently taking Keflex bid from [facility]. Reviewed imaging with pt. Explained ureteral stents [...] #3, cysto/L stent placement for tomorrow at [facility]. The procedural risks, benefits, details, and treatment [...] Ab 02/18/22 - (more content not included)... [facility] Comment on above: Result Comment: Elec tronically Signed By: Arturo DOLAN MD\.br\Date and Time Signed: 11/12/23 10:49 EST\.br\Electronically Co-Signed By: Francie Myers.br\Date and Time Co-Signed: 11/12/23 10:44 EST Consent for Treatmenton 06-18 Consent for Treatment [id number] #1.00CD:127 [facility] Discharge Instructionson Discharge Instructions [id number] #1.00CD:127 Normal [facility] ED Clinical Summaryon 2022 ED Clinical Summary [address] [address] ED Clinical Summary Person Information Name: YEYO AVILA Aleah/[facility] Age: 67 Years : 1955 Sex: Female Language: Chilean PCP: Danilo Ponce MD Marital Status: Visit Id: Visit [...] 12:19:05 07/13/2023 12:19:05 07/13/2023 12:19:05 ADDRESS: [address] [id number] PHYS DOC NOTES: MEDICAL INFORMATION: Prescriptions Given: New Medications [id number], [address], [place] [id number], [phone] acetaminophen-oxycod one (Percocet 5 mg-325 mg oral [...] Muscle Strain Follow up: With: Address: When: Danilo Ponce [address] [facility], [address] [place] [phone] Business (1) In 3 days 07/16/2023 DIAGNOSIS: Shoulder pain Normal [facility] ED Note-Physicianon 07-13-20 ED Note-Physician Basic Information Time Seen: Rubén STAFFORDMathew 07/13/2023 11:35 Chief Complaint pt to ed [...] q6hr, PRN Follow-up With When Contact Information Danilo Ponce In 3 days 07/16/[address] Business (1) Additional Instructions: Patient Education Shoulder Pain Muscle Strain Attestation Patient seen and evaluated by the physician central supply assistant. Attending physician was present in the emergency department and supervised care. This visit was performed by both the physician and an APC. I performed all aspects of the MDM as documented. This report was transcribed using voice recognition software. Every effort was made to ensure accuracy, however, inadvertently computerized cartridge filler mistakes may be present. Appropriate healthcare PPE [...] Strawberries (Hives (more content not included)... Normal [facility] Comment on above: Result Comment: Elec [...] strengthen the arm. General instructions ? Take efex-pfs-ursnfab and prescription medicines only as told by [...] provider. Document Revised: 07/19/2022 Document Reviewed: 07/19/2022 [employer] Patient Education ? 2022 [employer] Muscle Strain A muscle strain is [...] bag. ? (more content not included)... Normal [facility] ED Patient Summaryon 023 ED Patient Summary [address] [address] Patient Discharge Instructions Person Information Name: YEYO AVILA Age: 67 Years Arrival Date: 07/13/2023 11:21:03 Discharge Diagnosis: Shoulder pain Primary Care Physician: Danilo Ponce MD Provider Information Primary Provider: Zaki Muñoz M.D. Advanced Mill Controller:Mathew Montana PA-C The exam and treatment you received in the Emergency Department were for an urgent problem and are not intended as complete care. It is important that you follow up with a doctor, nurse practitioner, or physician?s central supply assistant for ongoing care. If your symptoms become worse or you do not improve as expected and you are unable to reach your usual health care provider, you should return to the Emergency Department. We are available 24 hours a day. MARGARITA YEYO Cooper has been given the following list of patient education materials, prescriptions and follow-up instructions: Follow-up Instructions: With: Address: When: Danilo Ponce [address] [place] [address], [place] [phone] Business (1) In 3 days 07/16/2023 In the event that this physician does not participate in your insurance network, please consult with your insurance company to find a nearby participating provider. Patient Education Materials: Shoulder Pain; Muscle Strain A MESSAGE TO ALL PATIENTS REGARDING OPIOIDS PRESCRIPTION OPIOIDS: WHAT YOU NEED TO KNOW Prescription opioids can be used to help relieve ktqovmss-jj-ebfxyo pain and are often prescribed following a [...] be struggling with addiction, tell your health workforce investment act career manager and ask for guidance or call SAM[employer]?S National Helpline at 7-333-581-HOKE. (more content not included)... Normal [facility] Office Visiton 07-08-2023 Follow-up visit [id number] Yeyo Avila 1955 F Date [facility] 07/08/2023 ALEXIA SUBRAMANIAN BH CARD [facility] No family history on file Level of Service:45023 SC OFFICE/OUTPATIENT ESTABLISHED MOD MDM 30-39 MIN Reason for Visit and Comments: Hospital Follow-up [832] - Chest pain Normal [facility] Office Visiton 04-25-2023 Follow-up visit [id number] Yeyo Avila 1955 F Date Provider Department Center 04/25/2023 [id number] LOPEZ [facility] No family history on file Level of Service:41964 SC OFFICE/OUTPATIENT ESTABLISHED LOW MDM 20-29 MIN Normal [facility] POINT OF CARE GLUCOSEon 03-19 Glucose [Mass/Vol] 90 mg/dL Normal 74-106 [facility] Comment on above: Performed By: #### P OCGLUC #### [facility] [address] [place] [address] Dr. Win Ardon CARDIAC STRESS TESTon 2022 [...] and reported nuclear myocardial perfusion imaging. Normal [facility] CBC AUTO DIFFon 04-01-2023 BASO # 0.1 103/ul Normal 0.0-0.1 [facility] Comment on above: Performed By: #### C BC #### [facility] [address] [place] [address] [address] Win Ardon Basophils/100 WBC (Bld) 1.3 % Normal 0.2-2.0 [facility] Comment on above: Performed By: #### C BC #### [facility] [address] [place] [address] [address] Win Ardon EO # 0.4 103/ul Normal 0.0-0.7 [facility] Comment on above: Performed By: #### C BC #### [facility] [address] [place] [address] Dr. Win Ardon Eosinophils/100 WBC (Bld) 4.1 % Normal 0.9-7.0 [facility] Comment on above: Performed By: #### C BC #### [facility] [address] [place] [address] Dr. Win Ardon Erythrocyte distribution width (RBC) [Ratio] 13.3 % Normal 11.0-15.0 [facility] Comment on above: Performed By: #### C BC #### [facility] [address] [place] [address] Dr. Win Ardon Hematocrit (Bld) [Volume fraction] 38.9 % Normal 36.0-48.0 [facility] Comment on above: Performed By: #### C BC #### [facility] [address] [place] [address] Dr. Win Ardon Hemoglobin (Bld) [Mass/Vol] 13.2 g/dL Normal 12.0-16.0 [facility] Comment on above: Performed By: #### C BC #### [facility] [address] [place] [address] Dr. Win Ardon IG # 0.04 10e3/ul Critically high 0.00-0.03 [facility] Comment on above: Performed By: #### C BC #### [facility] [address] [place] [address] Dr. Win Ardon IG % 0.4 % Normal 0.0-0.5 [facility] Comment on above: Performed By: #### C BC #### [facility] [address] [place] [address] Dr. Win Ardon LYMPH # 3.2 103/ul Normal 1.2-3.8 [facility] Comment on above: Performed By: #### C BC #### [facility] [address] [place] [address] Dr. Win Ardon Lymphocytes/100 WBC (Bld) 34.7 % Normal 20.5-60.0 [facility] Comment on above: Performed By: #### C BC #### [facility] [address] [place] [address] Dr. Win Ardon MANUAL DIFF REQ NO Normal [facility] Comment on above: Performed By: #### C BC #### [facility] [address] [place] [address] Dr. Win Ardon MCH (RBC) [Entitic mass] 31.3 pg Normal 26.7-34.0 [facility] Comment on above: Performed By: #### C BC #### [facility] [address] [place] [address] Dr. Win Ardon MCHC (RBC) [Mass/Vol] 33.9 g/dL Normal 29.9-35.2 [facility] Comment on above: Performed By: #### C BC #### [facility] [address] [place] [address] Dr. Win Ardon MCV (RBC) [Entitic vol] 92.2 fL Normal 81.0-99.0 [facility] Comment on above: Performed By: #### C BC #### [facility] [address] [place] [address] Dr. Win Ardon MONO # 0.7 103/ul Normal 0.3-0.8 [facility] Comment on above: Performed By: #### C BC #### [facility] [address] [place] [address] Dr. Win Ardon Monocytes/100 WBC (Bld) 7.1 % Normal 1.7-12.0 [facility] Comment on above: Performed By: #### C BC #### [facility] [address] [place] [address] Dr. Win Ardon NEUT # 4.9 103/ul Normal 1.4-6.5 [facility] Comment on above: Performed By: #### C BC #### [facility] [address] [place] [address] [address] Win Ardon Neutrophils/100 WBC (Bld) 52.4 % Normal 43.0-75.0 [facility] Comment on above: Performed By: #### C BC #### [facility] [address] [place] [address] [address] Win Ardon Platelet mean volume (Bld) [Entitic vol] 10.6 fL Normal 9.5-13.5 [facility] Comment on above: Performed By: #### C BC #### [facility] [address] [place] [address] [address] Win Ardon PLT 231 103/ul Normal 150-450 [facility] Comment on above: Performed By: #### C BC #### [facility] [address] [place] [address] Dr. Win Ardon RBC 4.22 106/ul Normal 4.20-5.40 [facility] Comment on above: Performed By: #### C BC #### [facility] [address] [place] [address] [address] Win Ardon WBC 9.3 103/ul Normal 4.0-11.0 [facility] Comment on above: Performed By: #### C BC #### [facility] [address] [place] [address] ABD/PELVIS WO CONon [...] by: LISSETT ALAN Date: 2023-04-01 20:03 Normal [facility] LACTATE/LACTIC ACIDon 2022 Lactate [Moles/Vol] 1.2 mmol/L Normal 0.4-2.0 [facility] Comment on above: Performed By: #### L ACT #### [facility] [address] [place] [address] Dr. Win Ardon NM STRESS/REST MULTIon 04-01 FL STRESS/REST MULTI Patient: YEYO AVILA Exam Date: 04/01/2023 : 1955 Gender:F Ordering : MRS. JONO HEMPHILLNICOLA ALBRIGHT Admission #: [id number] Family : SHAIKH Aroldo EHRNANDEZ . Order #: [id number] CLICK HERE TO VIEW EXAM RADIOLOGY REPORT PROCEDURE: RADIONUCLIDE IMAGING STRESS/REST MULTI COMPARISON: FL STRESS/REST MULTI, 01/31/2021. INDICATIONS: Chest pain, syncope [...] study was pending per attending physician Dr. SYED . For more details please see separate [...] Clark M.D. on 04/02/2023 at 11:10 Normal [facility] OCC BLD IMMUNO SCREENon 03-17 OCCULT BLOOD Positive Abnormal NEGATIVE [facility] Comment on above: Performed By: #### O BSCRN #### [facility] [address] [place] [address] [address] Win Ardon PROF 14(COMP METB)on 023 Albumin [Mass/Vol] 3.8 g/dL Normal 3.4-5.0 [facility] Comment on above: Performed By: #### C MP ####[facility] [address] [place] [address]DrOtilia Ardon Albumin/Globulin [Mass ratio] 1.1 {ratio} Normal [facility] Comment on above: Performed By: #### C MP ####[facility] [address] [place] [address]DrOtilia Ardon ALP [Catalytic activity/Vol] 99 U/L Normal 46-116 [facility] Comment on above: Performed By: #### C MP ####[facility] [address] [place] [id number] Ardon ALT [Catalytic activity/Vol] 17 U/L Normal 14-59 [facility] Comment on above: Performed By: #### C MP ####[facility] [address] [place] [id number] Ardon Anion gap [Moles/Vol] 13.4 mmol/L Normal [facility] Comment on above: Performed By: #### C MP ####[facility] [address] [place] [address]DrOtilia Ardon AST [Catalytic activity/Vol] 11 U/L Critically low 15-37 [facility] Comment on above: Performed By: #### C MP ####[facility] [address] [place], [place] [address]Dr. Win Ardon Bilirubin [Mass/Vol] 0.6 mg/dL Normal 0.2-1.0 [facility] Comment on above: Performed By: #### C MP ####[facility] [address] [place], [place] [address]Dr. Win Duglas Calcium [Mass/Vol] 9.1 mg/dL Normal 8.5-10.1 [facility] Comment on above: Performed By: #### C MP ####[facility] [address] [place], [place] [address]Dr. Win Ardon Chloride [Moles/Vol] 106 mmol/L Normal 98-107 [facility] Comment on above: Performed By: #### C MP ####[facility] [address] [place], [place] [address]Dr. Win Duglas CO2 [Moles/Vol] 29.2 mmol/L Normal 21.0-32.0 [facility] Comment on above: Performed By: #### C MP ####[facility] [address] [place], [place] [address]Dr. Claudiaaida Duglas Creatinine [Mass/Vol] 0.95 mg/dL Normal 0.55-1.02 [facility] Comment on above: Performed By: #### C MP ####[facility] [address] [place], [place] [address]Dr. Claudiaaida Duglas EGFR-AF [facility] >60 Normal >=60 [facility] Comment on above: Performed By: #### C MP ####[facility] [address] [place], [place] [address]Dr. Win Ardon EGFR-NON AF [facility] 59 mL/min/1.73m2 Critically low >=60 [facility] Comment on above: Performed By: #### C MP ####[facility] [address] [place], [place] [address]Dr. Win Ardon Globulin (S) [Mass/Vol] 3.4 g/dL Normal [facility] Comment on above: Performed By: #### C MP ####[facility] [address] [place], [place] [address]Dr. Win Duglas Glucose [Mass/Vol] 162 mg/dL Critically high 74-106 [facility] Comment on above: Performed By: #### C MP ####[facility] [address] [place], [place] [address]Dr. Win Ardon Potassium [Moles/Vol] 3.6 mmol/L Normal 3.5-5.1 [facility] Comment on above: Performed By: #### C MP ####[facility] [address] [place], [place] [address]Dr. Win Ardon Protein [Mass/Vol] 7.2 g/dL Normal 6.4-8.2 [facility] Comment on above: Performed By: #### C MP ####[facility] [address] [place], [place] [address]Dr. Claudiaaida Ardon Sodium [Moles/Vol] 145 mmol/L Normal 136-145 [facility] Comment on above: Performed By: #### C MP ####[facility] [address] [place], [place] [address]Dr. Win Ardon Urea nitrogen [Mass/Vol] 14.0 mg/dL Normal 7.0-18.0 [facility] Comment on above: Performed By: #### C MP ####[facility] [address] [place], [place] [address]Dr. Win Ardon Urea nitrogen/Creatinine [Mass ratio] 14.7 mg/mg Normal [facility] Comment on above: Performed By: #### C MP ####[facility] [address] [place], [place] [address]Dr. Win Ardon PROTIMEon 04-01-2023 INR Coag (PPP) [Relative time] 1.02 {INR} Normal [facility] Comment on above: Performed By: #### P TT, PT ####[facility] [address] [place], [place] [address]DrOtilia Ardon INR GUIDELINES SEE BELOW Normal [facility] Comment on above: Result Comment: MAGDA RED INR: 2.0 - 3.0 CONDITIONS NOT LISTED BELOW 2.5 - 3.5 FOR PROSTHETIC HEART VALVE REPLACEMENT 2.5 - 3.5 RECURRENT THROMBOSIS Performed By: #### P TT, PT ####[facility] [address] [place], [place] [address]Dr. Win Ardon PT Coag (PPP) [Time] 10.8 s Normal 9.0-11.6 [facility] Comment on above: Performed By: #### P TT, PT ####[facility] [address] [place], [place] [address]DrOtilia Ardon PTTon 04-01-2023 aPTT Coag (Bld) [Time] 26.5 s Normal 22.3-36.2 [facility] Comment on above: Performed By: #### P TT, PT ####[facility] [address] [place], [place] [address]Dr. Win Ardon TYPE AND SCREENon 04-01-2023 TYPE AND SCREEN Negative Normal [facility] Comment on above: Performed By: #### T NS ####[facility] [address] [place], [place] [address]DrOtilia Ardon CBC AUTO DIFFon 03-24-2023 BASO # 0.1 103/ul Normal 0.0-0.1 [facility] Comment on above: Performed By: #### C BC ####[facility] [address] [place], [place] [address]DrOtilia Ardon Basophils/100 WBC (Bld) 1.0 % Normal 0.2-2.0 [facility] Comment on above: Performed By: #### C BC ####[facility] [address] [place], [place] [address]DrOtilia Ardon EO # 0.3 103/ul Normal 0.0-0.7 [facility] Comment on above: Performed By: #### C BC ####[facility] [address] [place], [place] [address]DrOtilia Ardon Eosinophils/100 WBC (Bld) 3.3 % Normal 0.9-7.0 [facility] Comment on above: Performed By: #### C BC ####[facility] [address] [place], [place] [address]Dr. Win Ardon Erythrocyte distribution width (RBC) [Ratio] 13.2 % Normal 11.0-15.0 [facility] Comment on above: Performed By: #### C BC ####[facility] [address] [place], [place] [address]Dr. Win Ardon Hematocrit (Bld) [Volume fraction] 41.3 % Normal 36.0-48.0 [facility] Comment on above: Performed By: #### C BC ####[facility] [address] [place], [place] [address]Dr. Win Ardon Hemoglobin (Bld) [Mass/Vol] 13.6 g/dL Normal 12.0-16.0 [facility] Comment on above: Performed By: #### C BC ####[facility] [address] [place], [place] [address]Dr. Win Ardon IG # 0.04 10e3/ul Critically high 0.00-0.03 [facility] Comment on above: Performed By: #### C BC ####[facility] [address] [place], [place] [address]Dr. Win Ardon IG % 0.4 % Normal 0.0-0.5 [facility] Comment on above: Performed By: #### C BC ####[facility] [address] [place], [place] [address]Dr. Win Ardon LYMPH # 2.2 103/ul Normal 1.2-3.8 [facility] Comment on above: Performed By: #### C BC ####[facility] [address] [place], [place] [address]Dr. Win Ardon Lymphocytes/100 WBC (Bld) 23.8 % Normal 20.5-60.0 [facility] Comment on above: Performed By: #### C BC ####[facility] [address] [place], [place] [address]Dr. Win Ardon MANUAL DIFF REQ NO Normal [facility] Comment on above: Performed By: #### C BC ####[facility] [address] [place] [address]Dr. Win Ardon MCH (RBC) [Entitic mass] 30.6 pg Normal 26.7-34.0 [facility] Comment on above: Performed By: #### C BC ####[facility] [address] [place] [address]Dr. Win Ardon MCHC (RBC) [Mass/Vol] 32.9 g/dL Normal 29.9-35.2 [facility] Comment on above: Performed By: #### C BC ####[facility] [address] [place], [place] [address]DrOtilia Ardon MCV (RBC) [Entitic vol] 93.0 fL Normal 81.0-99.0 [facility] Comment on above: Performed By: #### C BC ####[facility] [address] [place], [place] [address]DrOtilia Ardon MONO # 0.7 103/ul Normal 0.3-0.8 [facility] Comment on above: Performed By: #### C BC ####[facility] [address] [place], [place] [address]DrOtilia Ardon Monocytes/100 WBC (Bld) 7.3 % Normal 1.7-12.0 [facility] Comment on above: Performed By: #### C BC ####[facility] [address] [place], [place] [address]DrOtilia Ardon NEUT # 5.8 103/ul Normal 1.4-6.5 [facility] Comment on above: Performed By: #### C BC ####[facility] [address] [place], [place] [address]DrOtilia Ardon Neutrophils/100 WBC (Bld) 64.2 % Normal 43.0-75.0 [facility] Comment on above: Performed By: #### C BC ####[facility] [address] [place], [place] [address]Dr. Win Ardon Platelet mean volume (Bld) [Entitic vol] 11.0 fL Normal 9.5-13.5 [facility] Comment on above: Performed By: #### C BC ####[facility] [address] [place], [place] [address]DaOtilia Ardon PLT 243 103/ul Normal 150-450 [facility] Comment on above: Performed By: #### C BC ####[facility] [address] [place], [place] [address]Fn. Win Ardon RBC 4.44 106/ul Normal 4.20-5.40 [facility] Comment on above: Performed By: #### C BC ####[facility] [address] [place] [id number] Ardon WBC 9.1 103/ul Normal 4.0-11.0 [facility] Comment on above: Performed By: #### C BC ####[facility] [address] [place] [id number] Ardon LIPID PROFILEon 03-24-2023 CHOL-HDL RATIO NORM SEE BELOW Normal [facility] Comment on above: Result Comment: 3.3 - 4.4 LOW RISK 4.4 - 7.1 AVERAGE RISK 7.1 - 11.0 MODERATE RISK >11.0 HIGH RISK Performed By: #### C MP, LIPID #### [facility] [address] [address] [address] Win Ardon Cholesterol [Mass/Vol] 99 mg/dL Normal <=200 [facility] Comment on above: Performed By: #### C MP, LIPID #### [facility] [address] [address] [address] Win Ardon Cholesterol in HDL [Mass/Vol] 34 mg/dL Critically low 40-60 [facility] Comment on above: Performed By: #### C MP, LIPID #### [facility] [address] [address] [address] Win Ardon Cholesterol in LDL [Mass/Vol] 35.8 mg/dL Normal [facility] Comment on above: Performed By: #### C MP, LIPID #### [facility] [address] [address] [address] Win Ardon Cholesterol.total/Chol esterol in HDL [Mass ratio] 2.9 {ratio} Normal [facility] Comment on above: Performed By: #### C MP, LIPID #### [facility] [address] [address] [address] Win Ardon HDL NORMAL > or = 60 mg/dl - LOW CARDIOVASCULAR RISK <40 mg/dl - HIGH CARDIOVASCULAR RISK Normal [facility] Comment on above: Performed By: #### C MP, LIPID #### [facility] [address] [address] [address] Win Ardon LDL CALC NORMAL SEE BELOW Normal [facility] Comment on above: Result Comment: <100 mg/dl OPTIMAL 100 - 129 mg/dl NEAR OR ABOVE OPTIMAL 130 - 159 mg/dl BORDERLINE HIGH 160 - 189 mg/dl HIGH >190 mg/dl VERY HIGH Performed By: #### C MP, LIPID #### [facility] [address] [address] [address] Win Ardon Triglyceride [Mass/Vol] 146 mg/dL Normal <=150 [facility] Comment on above: Performed By: #### C MP, LIPID #### [facility] [address] [place] [address] Dr. Win Ardon VLDL CALC 29.2 mg/dL Normal [facility] Comment on above: Performed By: #### C MP, LIPID #### [facility] [address] [place] [address] Dr. Win Ardon PROF 14(COMP METB)on 023 Albumin [Mass/Vol] 3.9 g/dL Normal 3.4-5.0 [facility] Comment on above: Performed By: #### C MP, LIPID #### [facility] [address] [place] [address] Dr. Win Ardon Albumin/Globulin [Mass ratio] 1.1 {ratio} Normal [facility] Comment on above: Performed By: #### C MP, LIPID #### [facility] [address] [place] [address] Dr. Win Ardon ALP [Catalytic activity/Vol] 96 U/L Normal 46-116 [facility] Comment on above: Performed By: #### C MP, LIPID #### [facility] [address] [place] [address] Dr. Win Ardon ALT [Catalytic activity/Vol] 15 U/L Normal 14-59 [facility] Comment on above: Performed By: #### C MP, LIPID #### [facility] [address] [place] [address] Dr. Win Ardon Anion gap [Moles/Vol] 12.1 mmol/L Normal [facility] Comment on above: Performed By: #### C MP, LIPID #### [facility] [address] [place] [address] Dr. Win Ardon AST [Catalytic activity/Vol] 10 U/L Critically low 15-37 [facility] Comment on above: Performed By: #### C MP, LIPID #### [facility] [address] [place] [address] Dr. Win Ardon Bilirubin [Mass/Vol] 0.8 mg/dL Normal 0.2-1.0 [facility] Comment on above: Performed By: #### C MP, LIPID #### [facility] [address] [place] [address] Dr. Win Ardon Calcium [Mass/Vol] 9.1 mg/dL Normal 8.5-10.1 [facility] Comment on above: Performed By: #### C MP, LIPID #### [facility] [address] [place] [address] Dr. Win Ardon Chloride [Moles/Vol] 102 mmol/L Normal 98-107 [facility] Comment on above: Performed By: #### C MP, LIPID #### [facility] [address] [place] [address] Dr. Win Ardon CO2 [Moles/Vol] 26.0 mmol/L Normal 21.0-32.0 [facility] Comment on above: Performed By: #### C MP, LIPID #### [facility] [address] [place] [address] Dr. Win Ardon Creatinine [Mass/Vol] 0.95 mg/dL Normal 0.55-1.02 [facility] Comment on above: Performed By: #### C MP, LIPID #### [facility] [address] [place] [address] Dr. Win Ardon EGFR-AF [facility] >60 Normal >=60 [facility] Comment on above: Performed By: #### C MP, LIPID #### [facility] [address] [address] [address] Win Ardon EGFR-NON AF [facility] 59 mL/min/1.73m2 Critically low >=60 [facility] Comment on above: Performed By: #### C MP, LIPID #### [facility] [address] [place] [address] Dr. Win Ardon Globulin (S) [Mass/Vol] 3.7 g/dL Normal [facility] Comment on above: Performed By: #### C MP, LIPID #### [facility] [address] [place] [address] Dr. Win Ardon Glucose [Mass/Vol] 336 mg/dL Critically high 74-106 [facility] Comment on above: Performed By: #### C MP, LIPID #### [facility] [address] [place] [address] Dr. Win Ardon Potassium [Moles/Vol] 4.1 mmol/L Normal 3.5-5.1 [facility] Comment on above: Performed By: #### C MP, LIPID #### [facility] [address] [place] [address] Dr. Win Ardon Protein [Mass/Vol] 7.6 g/dL Normal 6.4-8.2 [facility] Comment on above: Performed By: #### C MP, LIPID #### [facility] [address] [place] [address] Dr. Win Ardon Sodium [Moles/Vol] 136 mmol/L Normal 136-145 [facility] Comment on above: Performed By: #### C MP, LIPID #### [facility] [address] [place] [address] Dr. Win Ardon Urea nitrogen [Mass/Vol] 10.0 mg/dL Normal 7.0-18.0 [facility] Comment on above: Performed By: #### C MP, LIPID #### [facility] [address] [place], [place] [address] Dr. Win Ardon Urea nitrogen/Creatinine [Mass ratio] 10.5 mg/mg Normal [facility] Comment on above: Performed By: #### C MP, LIPID #### [facility] [address] [place], [place] [address] Dr. Win Ardon Office Visiton 03-10-2023 Follow-up visit [id number] Yeyo Avila Allison 1955 F Date Provider Department Center 03/10/2023 JONO SAMS [facility] No family history on file Level of Service:73238 SC OFFICE/OUTPATIENT ESTABLISHED MOD MDM 30-39 MIN Reason for Visit and Comments: Coronary Artery Disease [187] Hypertension [969161] aneurysm of thoracic aorta [Other] Normal [facility] CHEMISTRYOrdered By: SYSTEM SYSTEM on 02-24-2023 Albumin [Mass/Vol] 3.7 g/dL Normal 3.3 - 5.0 gm/dL [facility] Albumin/Globulin [Mass ratio] 1.3 {ratio} Normal 1.1 - 2.2 [facility] ALP [Catalytic activity/Vol] 84 [iU]/d Normal 21 - 98 Int._Unit/L [facility] ALT No additional P-5'-P [Catalytic activity/Vol] 13 [iU]/d Normal 6 - 46 Int._Unit/L [facility] Anion gap [Moles/Vol] 11 mmol/L Normal 6 - 16 mEq/L [facility] Anion gap [Moles/Vol] 8 mmol/L Normal [...] 8.9 - 11. 1 mg/dL [facility] Calcium [Mass/Vol] 8.4 mg/dL Low 8.9 - 11. 1 mg/dL [facility] Chloride [Moles/Vol] 103 mmol/L Normal 101 - 1 11 mmol/L [facility] Chloride [Moles/Vol] 108 mmol/L Normal 101 - 1 11 mmol/L [facility] CO2 [Moles/Vol] 26 mmol/L Normal 21 - 31 mmol/L [facility] CO2 [Moles/Vol] 25 mmol/L Normal 21 - 31 mmol/L [facility] Creatinine [Mass/Vol] 1.4 mg/dL High 0.5 - 1.3 mg/dL [facility] Creatinine [Mass/Vol] 1.2 mg/dL Normal 0.5 - 1.3 mg/dL [facility] GFR/1.73 sq M.predicted among blacks MDRD (S/P/Bld) [Vol rate/Area] 46 mL/min/1.73 m2 Low >=59mL/min/1 .73 m2 FT Chem S GFR/1.73 sq M.predicted among blacks MDRD (S/P/Bld) [...] Normal 55 - 199 mg/dL [facility] Glucose [Mass/Vol] 102 mg/dL Normal 55 - 199 mg/dL [facility] Magnesium [Mass/Vol] 2.1 mg/dL Normal 1.3 - 2 .4 mg/dL [facility] Potassium [Moles/Vol] 3.0 mmol/L Low 3.5 - 5.3 mmol/L [facility] Potassium [Moles/Vol] 3.4 mmol/L Low 3.5 - 5.3 mmol/L [facility] Potassium [Moles/Vol] 3.7 mmol/L Normal 3.5 - 5.3 mmol/L [facility] Protein [Mass/Vol] 6.5 g/dL Normal 6.0 - 7.8 gm/dL [facility] Sodium [Moles/Vol] 137 mmol/L Normal 135 - 145 mmol/L [facility] Sodium [Moles/Vol] 138 mmol/L Normal 135 - 145 mmol/L [facility] Troponin I.cardiac [Mass/Vol] 8.00 pg/mL Low 10.10 - 27.10 pg/mL [facility] Troponin I.cardiac [Mass/Vol] 6.70 pg/mL Low 10.10 - 27.10 pg/mL [facility] Troponin I.cardiac [Mass/Vol] 7.40 pg/mL Low 10.10 - 27.10 pg/mL [facility] TSH Qn 0.97 m[IU]/L Normal 0.34 - 5.60 mcIU/mL [facility] Urea nitrogen [Mass/Vol] 30 mg/dL High 5 - 21 mg/dL [facility] Urea nitrogen [Mass/Vol] 30 mg/dL High 5 - 21 mg/dL [facility] Urea nitrogen/Creatinine [Mass ratio] 21 mg/mg High 10 - 20 [facility] Urea nitrogen/Creatinine [Mass ratio] 25 mg/mg High 10 - 20 [facility] CHEMISTRYOrdered By: Lab ROP User on 02-24-2023 Glucose [Mass/Vol] 76 mg/dL Normal 55 - 99 mg/dL [facility] Sub[facility] Comment on above: Result Comment: Edilia reinoso Meter Glucose [Mass/Vol] 144 mg/dL High 55 - 99 mg/dL [facility] Sub[facility] Comment on above: Result Comment: Edilia arleth Meter POC Device SN [id number] Invalid Interpretation Code [facility] POC Subsection POC Device SN [id number] Invalid Interpretation Code [facility] POC Subsection POC User ID [id number] Invalid Interpretation Code [facility] POC Subsection POC User ID [id number] Invalid Interpretation Code [facility] POC Subsection POC Username KRISTI MADDEN Invalid Interpretation Code [facility] POC Subsection POC Username KRISTI MADDEN Invalid Interpretation Code [facility] POC Subsection COAGULATIONOrdered By: Allis on Alice on 02-24-2023 aPTT Coag (PPP) [...] Interpretation Code Negative [facility] UA Auto SS [place].plasma/[place] .RBC (Bld) [Mass ratio] 21-30 /HPF Invalid [...] [facility] UA Auto SS Urobilinogen Qn (U) 0.0922088 {John'U}/dL Normal 0.0 - 1.0 EU/dL [facility] UA Auto SS WBC Auto Ql (U) Trace *ABN* (02/24/23 2:06 AM) Invalid Interpretation Code Negative [facility] UA Auto SS WBC casts LM.LPF (Urine sed) [#/Area] 4-10 (02/24/23 2:06 AM) Normal [facility] UA Auto SS WBC LM.HPF (Urine sed) [#/Area] 0-5 /HPF Normal 0-5/HPF [facility] UA Auto SS Covid-19 PCR ([facility])on 01-17 SARS-CoV-2 (COVID-19) RNA OSVALDO+probe Ql (Unsp spec) Not detected Normal NOT DETECTED [facility] Comment on above: Result Comment: This test is not yet approved or cleared by the [place] FDA. When there are no FDA-approved or cleared tests available, and other criteria are met, FDA can make tests available under an emergency access mechanism called an Emergency Use Authorization (EUA). The EUA for this test is supported by the [place] of Health and Human Service's (HHS's) declaration [...] SARS-CoV-2. Performed By: #### C VDTB #### [facility] [address] [address] [address] Win Ardon SYMPTOMATIC COVID-19 ANTIGEN on 02-14-2023 EUA Statement SEE BELOW Normal [facility] Comment on above: Result Comment: This [...] sooner. Performed By: #### C VDAGS #### [facility] [address] [address] [address] Win Ardon SARS-CoV-2 (COVID-19) RNA OSVALDO+probe Ql (Unsp spec) Negative Normal NEGATIVE [facility] Comment on above: Performed By: #### C VDAGS #### [facility] [id number] Win Ardon XR KNEE RT 4V [...] by: MIKAEL GUZMAN Date: 2022-10-05 19:58 Normal [facility] Creatinine (Bld) [Mass/Vol]O rdered By: Ese Tan on 02-18-2022 Creatinine [Mass/Vol] 0.8 mg/dL 0.6-1.3 [facility] Comment on above: ER/ESD physician is notified/shown all ISTAT results.Critical values may be confirmed by laboratory testing ifdeemed necessary by ER attending doctor. ISTAT XRay CREon 02-18-2022 Creatinine [Mass/Vol] 0.8 mg/dL Normal 0.6-1.3 [facility] Comment on above: Result Comment: ER/E SD physician is notified/shown all ISTAT results. Critical values may be confirmed by laboratory testing if deemed necessary by ER attending doctor. Performed By: #### B FIBERGLASS GRINDER, PTT, CKMB, LIPASE, CK, TROP, CBC, PT, CMP #### [facility] [address] ISTAT GFR ( > 60 Normal [facility] Comment on above: Result Comment: GFR estimated reference range: According to KDOQI guidelines, <60 ml/min/1.73m2 is sufficient to diagnose a patient with chronic kidney disease. PERFORMED BY: [place] [address] PATHOLOGIST DRAW BENCH OPERATOR HELPER WALDO WANG M.D. Performed By: #### B FIBERGLASS GRINDER, PTT, CKMB, LIPASE, CK, TROP, CBC, PT, CMP #### [facility] [address] [id number] [place] ISTAT GFR (Non- Am > 60 Normal [facility] Comment on above: Performed By: #### B FIBERGLASS GRINDER, PTT, CKMB, LIPASE, CK, TROP, CBC, PT, CMP #### [facility] [address] [place] [address] [facility] MR abdomen wo/w conon 2021 MR abdomen wo/w con [facility] [place] [address] [id number] MRI Report Signed Patient: Yeyo Avila MR#: [id number] : 1955 Acct:[id number] Age/Sex: 66 / F ADM Date: 02/18/22 Loc: MR Room: Type: [facility] Attending Dr: Ese Tan MD Ordering [...] Warren Jr., D.OOtilia02/18/2022 4:02 PM Dictation Location: [facility]--11 Transcribed By: [facility] 02/18/22 1602 Dictated By: Javi Warren Jr, DO 02/18/22 1556 Signed By: 02/18/22 1602 Normal [facility] No Panel InformationOrdered By: Ese Tan on 02-18-2022 POC Estimated GFR > 60 [facility] Comment on above: GFR estimated refere nce range: According to KDOQI guidelines, <60 ml/min/1.73m2 is sufficient to diagnose a patient with chronic kidney disease. POC Estimated GFR Non- Amer > 60 [facility] Cardiovascular Lab Reporton 03-22-2021 Cardiovascular Lab Report [facility] Patient Name: Margarita [facility] Yeyo Cooper MR #: [id number] Department of Physician: Radah Carter M.D. Division of Service Date: 03/21/2021 Cardiology Birthdate: 1955 Adult Cardiovascular Room #: [address] [place] [address] Cardiovascular Laboratory Report FINAL IMPRESSIONS: 1. 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 2. Patent stent in the second diagonal branch of the left anterior descending coronary artery with dxwq-jy-[id number] in-stent restenosis. 3. Otherwise, nonobstructive coronary arteries [...] as scheduled. 5. Follow up with Dr. Danilo Ponce as scheduled. PROCEDURES: Ultrasound-guided access to the right common femoral artery and right common femoral vein, right heart catheterization, bilateral selective coronary angiography, placement of a 6-Gambian MynxGrip closure device. METHODS: After risks, benefits, and alternatives were explained, written informed consent was obtained. The patient was prepped and draped in the usual sterile fashion over the right groin. Using 1% lidocaine solution, local infiltration anesthesia was achieved. Using a modified Seldinger technique, a micropuncture kit, an ultrasound guidance access to the right common femoral vein and artery was obtained. A 6-Gambian x 11 cm sheath were placed in each. Limited femoral angiography was performed via the micropuncture kit prior to upsizing through the 6-Gambian sheath in the artery. A Cazares catheter [...] the procedure. All catheters were removed. A 6-Gambian MynxGrip closure device was deployed per protocol [...] Pardo M.D. Date Trans: 03/22/2021 05:11 A/yoel [id number] cc: Alexia Cline, MSN, CRANE HOIST OR LIFT OPERATOR-C Department Of Surgery [place] [address] [facility] [address] Danilo Ponce M.D. [address] [facility] [address] [facility] [address] angio abdomen pelvison CT angio abdomen pelvis [facility] [place] [address] CT Scan Report Signed Patient: Yeyo Avila MR#: [id number] : 1955 Acct:[id number] Age/Sex: 65 / F ADM Date: 03/19/21 Loc: ER Room: Type: [facility] Attending Dr: Ordering Provider: Ismael Santillan DO Date of Service: 03/19/21 CT/CT angio chest: r/o dissection ([id number]) CT/CT angio abdomen pelvis: R/O DISSECTION Copies [...] Martinez Jr., M.D.03/20/2021 8:52 AM Dictation Location: [place] [address] Transcribed By: [facility] 03/20/21 0852 Dictated By: Gavin Martinez Jr, MD 03/20/21 0841 Signed By: 03/20/21 0852 Normal [facility] Dipstick and Microscopicon 0 03-20-2021 Appearance (U) Clear Normal Clear [facility] Comment on above: Order Comment: Name Collection Type:: Clean-Voided Midstream Performed By: #### A DDONUAPLUS #### [facility] [address] [place] [id number] [place] Bacteria,Urine None Seen Normal None Seen [facility] Comment on above: Order Comment: Name Collection Type:: Clean-Voided Midstream Performed By: #### A DDONUAPLUS #### [facility] [address] [place] [id number] [place] Bilirubin,Urine Negative Normal Negative [facility] Comment on above: Order Comment: Name Collection Type:: Clean-Voided Midstream Performed By: #### A DDONUAPLUS #### [facility] [address] [place] [address] [place] Color (U) Yellow Normal Yellow [facility] Comment on above: Order Comment: Name Collection Type:: Clean-Voided Midstream Performed By: #### A DDONUAPLUS #### [facility] [address] [place] [address] [place] Glucose Ql (U) 500 mg/dL High Normal [facility] Comment on above: Order Comment: Name Collection Type:: Clean-Voided Midstream Performed By: #### A DDONUAPLUS #### [place] [address] [place] Hyaline Casts,Urine 0-8 Normal 0-8 [facility] Comment on above: Order Comment: Name Collection Type:: Clean-Voided Midstream Result Comment: PERF ORMED BY: [place] [address] PATHOLOGIST DRAW BENCH OPERATOR HELPER WALDO WANG M.D. Performed By: #### A DDONUAPLUS #### [facility] [address] [place] [address] [place] Ketones Ql (U) Trace High Negative [facility] Comment on above: Order Comment: Name Collection Type:: Clean-Voided Midstream Performed By: #### A DDONUAPLUS #### [facility] [address] [place] [address] [place] Leukocyte esterase Test strip Ql (U) Negative Normal Negative [facility] Comment on above: Order Comment: Name Collection Type:: Clean-Voided Midstream Performed By: #### A DDONUAPLUS #### [facility] [address] [place] [address] [place] Nitrite,Urine Negative Normal Negative [facility] Comment on above: Order Comment: Name Collection Type:: Clean-Voided Midstream Performed By: #### A DDONUAPLUS #### [facility] [address] [place] [address] [place] Occult Blood,Urine Negative Normal Negative [facility] Comment on above: Order Comment: Name Collection Type:: Clean-Voided Midstream Performed By: #### A DDONUAPLUS #### [address] pH (U) 6.0 [pH] Normal 5.0-9.0 [facility] Comment on above: Order Comment: Name Collection Type:: Clean-Voided Midstream Performed By: #### A DDONUAPLUS #### [address] Protein,Urine Trace High Negative [facility] Comment on above: Order Comment: Name Collection Type:: Clean-Voided Midstream Performed By: #### A DDONUAPLUS #### [address] RBC,Urine 1-2 Normal 0-4 [facility] Comment on above: Order Comment: Name Collection Type:: Clean-Voided Midstream Performed By: #### A DDONUAPLUS #### [address] Renal Epithelial Cells,Urine None Seen Normal 0-1 [facility] Comment on above: Order Comment: Name Collection Type:: Clean-Voided Midstream Performed By: #### A DDONUAPLUS #### [address] Specificy [place],Urine > 1.050 High 1.001-1.030 [facility] Comment on above: Order Comment: Name Collection Type:: Clean-Voided Midstream Performed By: #### A DDONUAPLUS #### [address] Squamous Epithelial Cell,Urine 3-4 High 0-2 [facility] Comment on above: Order Comment: Name Collection Type:: Clean-Voided Midstream Performed By: #### A DDONUAPLUS #### [address] Urobilinogen,Urine Normal Normal Normal [facility] Comment on above: Order Comment: Name Collection Type:: Clean-Voided Midstream Performed By: #### A DDONUAPLUS #### [address] [place] [address] [facility] WBC,Urine 1-2 Normal 0-4 [facility] Comment on above: Order Comment: Name Collection Type:: Clean-Voided Midstream Performed By: #### A DDONUAPLUS #### [facility] [address] [place], [place] [id number] [facility] ECG 12 lead ECGon 03-20-2021 ECG 12 lead ECG [facility] [place] [address] Electrocardiograph Report Signed Patient: Yeyo Avila MR#: [id number] : 1955 Acct:[id number] Age/Sex: 65 / F ADM Date: 03/19/21 Loc: ER Room: Type: DEP ER Attending Dr: Ordering Provider: Ismael Santillan [...] MD 03/19/212224 Signed By: 03/21/21 0905 Normal [facility] XR chest 2V*on 03-20-2021 XR chest 2V* [facility] [place] [address] XRay Report Signed Patient: Yeyo Avila MR#: [id number] : 1955 Acct:[id number] Age/Sex: 65 / F ADM Date: 03/19/21 Loc: ER Room: Type: DEP ER Attending Dr: Ordering Provider: Ismael M Brzycki, DO Date of Service: 03/19/21 XR/XR chest 2V*: Chest Pain Copies to: Ismael Santillan, Chest 03/19/2021. CLINICAL DATA: Chest pain. FINDINGS: [...] Martinez Jr., M.D.03/20/2021 8:53 AM Dictation Location: [place] [address] Transcribed By: [facility] 03/20/21 0853 Dictated By: Gavin Martinez Jr, MD 03/20/21 0852 Signed By: 03/20/21 0853 Normal [facility] B-Type Natriuretic Peptideon 03-19-2021 Natriuretic peptide B (Bld) [Mass/Vol] 30.0 pg/mL Normal 5-100 [facility] Comment on above: Result Comment: PERF ORMED BY: [place] [address] PATHOLOGIST DRAW BENCH OPERATOR HELPER WALDO WANG M.D. Performed By: #### B FIBERGLASS GRINDER, PTT, CKMB, LIPASE, CK, TROP, CBC, PT, CMP #### [address] Complete Blood Count Auto Di ffon 03-19-2021 Basophils (Bld) [#/Vol] 0.2 10*3/uL Normal 0.0-0.2 [facility] Comment on above: Result Comment: PERF ORMED BY: [place] [address] PATHOLOGIST DRAW BENCH OPERATOR HELPER WALDO WANG M.D. Performed By: #### B FIBERGLASS GRINDER, PTT, CKMB, LIPASE, CK, TROP, CBC, PT, CMP #### [address] Basophils/100 WBC (Bld) 0.9 % Normal . [facility] Comment on above: Performed By: #### B FIBERGLASS GRINDER, PTT, CKMB, LIPASE, CK, TROP, CBC, PT, CMP #### [address] Eosinophils (Bld) [#/Vol] 0.2 10*3/uL Normal 0.0-0.45 [facility] Comment on above: Performed By: #### B FIBERGLASS GRINDER, PTT, CKMB, LIPASE, CK, TROP, CBC, PT, CMP #### [address] Eosinophils/100 WBC (Bld) 1.1 % Normal . [facility] Comment on above: Performed By: #### B FIBERGLASS GRINDER, PTT, CKMB, LIPASE, CK, TROP, CBC, PT, CMP #### [address] Erythrocyte distribution width (RBC) [Ratio] 13.7 % Normal 11.9-15.3 [facility] Comment on above: Performed By: #### B FIBERGLASS GRINDER, PTT, CKMB, LIPASE, CK, TROP, CBC, PT, CMP #### [address] Hematocrit (Bld) [Volume fraction] 43.7 % Normal 34.0-46.4 [facility] Comment on above: Performed By: #### B FIBERGLASS GRINDER, PTT, CKMB, LIPASE, CK, TROP, CBC, PT, CMP #### [address] Hemoglobin (Bld) [Mass/Vol] 14.8 g/dL Normal 11.8-15.4 [facility] Comment on above: Performed By: #### B FIBERGLASS GRINDER, PTT, CKMB, LIPASE, CK, TROP, CBC, PT, CMP #### [address] Lymphocytes (Bld) [#/Vol] 4.2 10*3/uL Normal 1.00-4.8 [facility] Comment on above: Performed By: #### B FIBERGLASS GRINDER, PTT, CKMB, LIPASE, CK, TROP, CBC, PT, CMP #### [address] Lymphocytes/100 WBC (Bld) 23.0 % Normal . [facility] Comment on above: Performed By: #### B FIBERGLASS GRINDER, PTT, CKMB, LIPASE, CK, TROP, CBC, PT, CMP #### [address] MCH (RBC) [Entitic mass] 29.8 pg Normal 24.7-34.3 [facility] Comment on above: Performed By: #### B FIBERGLASS GRINDER, PTT, CKMB, LIPASE, CK, TROP, CBC, PT, CMP #### [address] MCV (RBC) [Entitic vol] 87.7 fL Normal 80-100 [facility] Comment on above: Performed By: #### B FIBERGLASS GRINDER, PTT, CKMB, LIPASE, CK, TROP, CBC, PT, CMP #### [address] Mean Corpuscular HGB Conc 33.9 g/dL Normal 32.0-35.0 [facility] Comment on above: Performed By: #### B FIBERGLASS GRINDER, PTT, CKMB, LIPASE, CK, TROP, CBC, PT, CMP #### [address] Monocytes (Bld) [#/Vol] 1.1 10*3/uL High 0.0-0.8 [facility] Comment on above: Performed By: #### B FIBERGLASS GRINDER, PTT, CKMB, LIPASE, CK, TROP, CBC, PT, CMP #### [address] Monocytes/100 WBC (Bld) 6.1 % Normal . [facility] Comment on above: Performed By: #### B FIBERGLASS GRINDER, PTT, CKMB, LIPASE, CK, TROP, CBC, PT, CMP #### [address] Neutrophils (Bld) [#/Vol] 12.4 10*3/uL High 1.8-7.7 [facility] Comment on above: Performed By: #### B FIBERGLASS GRINDER, PTT, CKMB, LIPASE, CK, TROP, CBC, PT, CMP #### [address] Neutrophils/100 WBC (Bld) 68.9 % Normal . [facility] Comment on above: Performed By: #### B FIBERGLASS GRINDER, PTT, CKMB, LIPASE, CK, TROP, CBC, PT, CMP #### [address] Nucleated RBC/100 WBC (Bld) [Ratio] 0.2 % Normal 0-0.5 [facility] Comment on above: Performed By: #### B FIBERGLASS GRINDER, PTT, CKMB, LIPASE, CK, TROP, CBC, PT, CMP #### [address] Platelet mean volume (Bld) [Entitic vol] 9.2 fL Normal 6.3-10.7 [facility] Comment on above: Performed By: #### B FIBERGLASS GRINDER, PTT, CKMB, LIPASE, CK, TROP, CBC, PT, CMP #### [address] Platelets (Bld) [#/Vol] 340 10*3/uL Normal 150-450 [facility] Comment on above: Performed By: #### B FIBERGLASS GRINDER, PTT, CKMB, LIPASE, CK, TROP, CBC, PT, CMP #### [address] RBC (Bld) [#/Vol] 4.98 10*6/uL Normal 3.60-5.00 [facility] Comment on above: Performed By: #### B FIBERGLASS GRINDER, PTT, CKMB, LIPASE, CK, TROP, CBC, PT, CMP #### [address] WBC (Bld) [#/Vol] 18.0 10*3/uL High 4.5-11.0 [facility] Comment on above: Performed By: #### B FIBERGLASS GRINDER, PTT, CKMB, LIPASE, CK, TROP, CBC, PT, CMP #### [facility] [address] Comprehensive Metabolic Pane talia 03-19-2021 Albumin [Mass/Vol] 4.7 g/dL Normal 3.2-5.5 [facility] Comment on above: Performed By: #### B FIBERGLASS GRINDER, PTT, CKMB, LIPASE, CK, TROP, CBC, PT, CMP #### [facility] [address] Albumin/Globulin [Mass ratio] 1.4 {ratio} Normal [facility] Comment on above: Performed By: #### B FIBERGLASS GRINDER, PTT, CKMB, LIPASE, CK, TROP, CBC, PT, CMP #### [facility] [address] ALP [Catalytic activity/Vol] 83 U/L Normal 32-92 [facility] Comment on above: Performed By: #### B FIBERGLASS GRINDER, PTT, CKMB, LIPASE, CK, TROP, CBC, PT, CMP #### [facility] [address] ALT [Catalytic activity/Vol] 15 U/L Normal 10-60 [facility] Comment on above: Performed By: #### B FIBERGLASS GRINDER, PTT, CKMB, LIPASE, CK, TROP, CBC, PT, CMP #### [address] AST [Catalytic activity/Vol] 15 U/L Normal 10-42 [facility] Comment on above: Performed By: #### B FIBERGLASS GRINDER, PTT, CKMB, LIPASE, CK, TROP, CBC, PT, CMP #### [facility] [address] Bilirubin [Mass/Vol] 1.6 mg/dL High 0.3-1.2 [facility] Comment on above: Result Comment: Samp les from patients who have taken Naproxen have shown spurious elevation in Total Bilirubin levels. A metabolite of Naproxen, O-desmethylnaproxen, has been shown to interfere with the Jenvirgilioik-Grof method for measuring Total Bilirubin. Performed By: #### B FIBERGLASS GRINDER, PTT, CKMB, LIPASE, CK, TROP, CBC, PT, CMP #### [address] Calcium [Mass/Vol] 10.1 mg/dL Normal 8.2-10.2 [facility] Comment on above: Performed By: #### B FIBERGLASS GRINDER, PTT, CKMB, LIPASE, CK, TROP, CBC, PT, CMP #### [facility] [address] Chloride [Moles/Vol] 99 mmol/L Normal 95-114 [facility] Comment on above: Performed By: #### B FIBERGLASS GRINDER, PTT, CKMB, LIPASE, CK, TROP, CBC, PT, CMP #### [address] CO2 [Moles/Vol] 23.1 mmol/L Normal 22.0-30.0 [facility] Comment on above: Performed By: #### B FIBERGLASS GRINDER, PTT, CKMB, LIPASE, CK, TROP, CBC, PT, CMP #### [address] Creatinine [Mass/Vol] 1.07 mg/dL High 0.44-1.03 [facility] Comment on above: Performed By: #### B FIBERGLASS GRINDER, PTT, CKMB, LIPASE, CK, TROP, CBC, PT, CMP #### [address] Creatinine Clr Calc Pharmacy 64.26 [facility] Comment on above: Performed By: #### B FIBERGLASS GRINDER, PTT, CKMB, LIPASE, CK, TROP, CBC, PT, CMP #### [facility] [address] Estimated GFR ( Aleah > 60 [facility] Comment on above: Result Comment: GFR estimated reference range: According to KDOQI guidelines, <60 ml/min/1.73m2 is sufficient to diagnose a patient with chronic kidney disease. Performed By: #### B FIBERGLASS GRINDER, PTT, CKMB, LIPASE, CK, TROP, CBC, PT, CMP #### [facility] [address] Estimated GFR (Non- Am 52 Normal [facility] Comment on above: Performed By: #### B FIBERGLASS GRINDER, PTT, CKMB, LIPASE, CK, TROP, CBC, PT, CMP #### [facility] [address] Globulin (S) [Mass/Vol] 3.3 g/dL [facility] Comment on above: Performed By: #### B FIBERGLASS GRINDER, PTT, CKMB, LIPASE, CK, TROP, CBC, PT, CMP #### [facility] [address] Glucose [Mass/Vol] 264 mg/dL High 70-100 [facility] Comment on above: Result Comment: [facility] Glucose Reference Range is dependent on time and content of last meal. Glucose of more than 200 mg/dL in a nonstressed, ambulatory subject supports the diagnosis of Diabetes Mellitus. ADA recommended reference range Performed By: #### B FIBERGLASS GRINDER, PTT, CKMB, LIPASE, CK, TROP, CBC, PT, CMP #### [address] Potassium [Moles/Vol] 3.8 mmol/L Normal 3.5-5.1 [facility] Comment on above: Performed By: #### B FIBERGLASS GRINDER, PTT, CKMB, LIPASE, CK, TROP, CBC, PT, CMP #### [address] Protein [Mass/Vol] 8.0 g/dL High 6.1-7.9 [facility] Comment on above: Performed By: #### B FIBERGLASS GRINDER, PTT, CKMB, LIPASE, CK, TROP, CBC, PT, CMP #### [address] Sodium [Moles/Vol] 137 mmol/L Normal 136-146 [facility] Comment on above: Performed By: #### B FIBERGLASS GRINDER, PTT, CKMB, LIPASE, CK, TROP, CBC, PT, CMP #### [address] Urea nitrogen [Mass/Vol] 29 mg/dL High 9-23 [facility] Comment on above: Performed By: #### B FIBERGLASS GRINDER, PTT, CKMB, LIPASE, CK, TROP, CBC, PT, CMP #### [facility] [address] Creatine Kinaseon 03-19-2021 CK [Catalytic activity/Vol] 42 U/L Normal 22-269 [facility] Comment on above: Performed By: #### B FIBERGLASS GRINDER, PTT, CKMB, LIPASE, CK, TROP, CBC, PT, CMP #### [facility] [address] Creatinine Kinase MBon 03-19 CK.MB [Mass/Vol] 1.3 ng/mL Normal 0.6-6.3 [facility] Comment on above: Performed By: #### B FIBERGLASS GRINDER, PTT, CKMB, LIPASE, CK, TROP, CBC, PT, CMP #### [facility] [address] CKMB Relative Index 3.0 % High 0.00-2.50 [facility] Comment on above: Performed By: #### B FIBERGLASS GRINDER, PTT, CKMB, LIPASE, CK, TROP, CBC, PT, CMP #### [facility] [address] ECG 12 lead ECGon 03-19-2021 ECG 12 lead ECG [facility] [place] [address] Electrocardiograph Report Signed Patient: Yeyo Avila MR#: [id number] : 1955 Acct:[id number] Age/Sex: 65 / F ADM Date: 03/19/21 Loc: ER Room: Type: [facility] ER Attending Dr: Ordering Provider: Ismael [...] MD 03/19/212112 Signed By: 03/21/21 09 Normal [facility] Lipaseon 03-19-2021 Lipase [Catalytic activity/Vol] 21.0 U/L Low 22-51 [facility] Comment on above: Result Comment: PERF ORMED BY: [place] [address] PATHOLOGIST DRAW BENCH OPERATOR HELPER WALDO WANG M.D. Performed By: #### B FIBERGLASS GRINDER, PTT, CKMB, LIPASE, CK, TROP, CBC, PT, CMP #### [address] Partial Thromboplastin Timeo n 03-19-2021 aPTT Coag (Bld) [Time] 26.1 s Normal 25.1-36.5 [facility] Comment on above: Result Comment: PERF ORMED BY: [place] [address] PATHOLOGIST DRAW BENCH OPERATOR HELPER WALDO WANG M.D. Performed By: #### B FIBERGLASS GRINDER, PTT, CKMB, LIPASE, CK, TROP, CBC, PT, CMP #### [address] Prothrombin Time INRon 03-19 INR Coag (PPP) [Relative time] 1.2 {INR} Normal [facility] Comment on above: Result Comment: INR [...] 3 - 4.5 Performed By: #### B FIBERGLASS GRINDER, PTT, CKMB, LIPASE, CK, TROP, CBC, PT, CMP #### [facility] [address] PT Coag (PPP) [Time] 13.6 s High 9.0-12.9 [facility] Comment on above: Performed By: #### B FIBERGLASS GRINDER, PTT, CKMB, LIPASE, CK, TROP, CBC, PT, CMP #### [facility] [address] Troponin I(TnI)on 03-19-2021 Troponin I.cardiac [Mass/Vol] ng/mL Normal 0-0.02 [facility] Comment on above: Result Comment: EBONY RI Cut off value > or equal to 0.03 ng/mL in conjunction with clinical conditions of myocardial infarction. (www.escardio.org/guidelines) PERFORMED BY: [place] [address] PATHOLOGIST DRAW BENCH OPERATOR HELPER WALDO WANG M.D. Performed By: #### B FIBERGLASS GRINDER, PTT, CKMB, LIPASE, CK, TROP, CBC, PT, CMP #### [facility] [address] Basic Metab w/rfx MGon 09-01 (cont.) Normal [facility] Comment on above: Result Comment: Aver age GFR for 60-69 years old: 85 mL/min/1.73sq m Chronic Kidney Disease: <60 mL/min/1.73sq m Kidney failure: <15 mL/min/1.73sq m eGFR calculated using average adult body mass. Additional eGFR calculator available at: http://www.[employer]du[employer]/multiple_crcl_2012.htm Performed By: #### E RTPF #### [facility] [address] [place] [address] Director Of Instruction: Dheeraj Garcia MD Anion gap [Moles/Vol] 13 mmol/L Normal 9-17 [facility] Comment on above: Performed By: #### E RTPF #### [address] [address] Director Of Instruction: Dheeraj Garcia MD BUN/CRE Ratio NOT REPORTED Normal 9-20 [facility] Comment on above: Performed By: #### E RTPF #### [address] [address] Director Of Instruction: Dheeraj Garcia MD Calcium [Mass/Vol] 8.8 mg/dL Normal 8.6-10.4 [facility] Comment on above: Performed By: #### E RTPF #### [address] [address] Director Of Instruction: Dheeraj Garcia MD Chloride [Moles/Vol] 106 mmol/L Normal 98-107 [facility] Comment on above: Performed By: #### E RTPF #### [address] [address] Director Of Instruction: Dheeraj Garcia MD CO2 [Moles/Vol] 21 mmol/L Normal 20-31 [facility] Comment on above: Performed By: #### E RTPF #### [address] [address] Director Of Instruction: Dheeraj Garcia MD Creatinine [Mass/Vol] 0.53 mg/dL Normal 0.50-0.90 [facility] Comment on above: Performed By: #### E RTPF #### [address] [address] Director Of Instruction: Dheeraj Garcia MD GFR, Amer >60 Normal >60 [facility] Comment on above: Performed By: #### E RTPF #### [address] [address] Director Of Instruction: Dheeraj Garcia MD GFR,non Amer >60 Normal >60 [facility] Comment on above: Performed By: #### E RTPF #### [facility] [address] [place] [address] Director Of Instruction: Dheeraj Garcia MD Glucose [Mass/Vol] 169 mg/dL High 70-99 [facility] Comment on above: Performed By: #### E RTPF #### [address] [address] Director Of Instruction: Dheeraj Garcia MD Potassium [Moles/Vol] 4.0 mmol/L Normal 3.7-5.3 [facility] Comment on above: Performed By: #### E RTPF #### [facility] [address] [place] [address] Director Of Instruction: Dheeraj Garcia MD Sodium [Moles/Vol] 140 mmol/L Normal 135-144 [facility] Comment on above: Performed By: #### E RTPF #### [address] [address] Director Of Instruction: Dheeraj Garcia MD Staging: NOT REPORTED Normal [facility] Comment on above: Performed By: #### E RTPF #### [address] [address] Director Of Instruction: Dheeraj Garcia MD Urea nitrogen [Mass/Vol] 10 mg/dL Normal 8-23 [facility] Comment on above: Performed By: #### E RTPF #### [address] [address] Director Of Instruction: Dheeraj Garcia MD Basic Metabolic Panel w/ Ref martín to MGon 09-01-2020 Anion gap [Moles/Vol] 13 mmol/L 9 - 17 mmol/L [place] Bun/Cre Ratio NOT REPORTED [place], [place] Calcium [Mass/Vol] 8.8 mg/dL 8.6 - 10. 4 mg/dL [place] Chloride [Moles/Vol] 106 mmol/L 98 - 10 7 mmol/L [place] CO2 [Moles/Vol] 21 mmol/L 20 - 31 mmol/L [place] Creatinine [Mass/Vol] 0.53 mg/dL 0.5 - 0.9 mg/dL [place] GFR >60 >60 mL/min [place], [place] GFR Non- >60 >60 mL/min [place] GFR/1.73 sq M predicted among non-blacks MDRD (S/P/Bld) [Vol rate/Area] [place] Comment on above: Average GFR for 60-6 9 years old: 85 mL/min/1.73sq m Chronic Kidney Disease: <60 mL/min/1.73sq m Kidney failure: <15 mL/min/1.73sq m eGFR calculated using average adult body mass. Additional eGFR calculator available at: http://www.[employer]/multiple_crcl_2012.htm GFR/1.73 sq M predicted among non-blacks MDRD (S/P/Bld) [Vol rate/Area] NOT REPORTED [place] Glucose [Mass/Vol] 169 mg/dL High 70 - 99 mg/dL [place] Potassium [Moles/Vol] 4.0 mmol/L 3.7 - 5.3 mmol/L [place] Sodium [Moles/Vol] 140 mmol/L 135 - 144 mmol/L [place] Urea nitrogen [Mass/Vol] 10 mg/dL 8 - 23 mg/dL [place] CBC auto differentialon 08-17 Basophils (Bld) [#/Vol] 0.10 10*3/uL [place] Basophils/100 WBC (Bld) 1 % 0 - 2 % [place] Differential Type NOT REPORTED [place] Eosinophils (Bld) [#/Vol] 0.25 10*3/uL [place] Eosinophils/100 WBC (Bld) 3 % 1 - 4 % [place] Erythrocyte distribution width (RBC) [Ratio] 14.0 % 11.8 - 14.4 % [place] Hematocrit (Bld) [Volume fraction] 40.7 % 36.3 - 47.1 % [place] Hemoglobin (Bld) [Mass/Vol] 12.7 g/dL 11.9 - 15.1 g/dL [place] Immature granulocytes (Bld) [#/Vol] 0.06 10*3/uL [place] Immature granulocytes (Bld) [#/Vol] 1 % High 0 [place] Lymphocytes (Bld) [#/Vol] 2.12 10*3/uL [place] Lymphocytes/100 WBC (Bld) 23 % Low 24 - 43 % [place] MCH (RBC) [Entitic mass] 28.1 pg 25.2 - 33.5 pg [place] MCHC (RBC) [Mass/Vol] 31.2 g/dL 28.4 - 34.8 g/dL [place] MCV (RBC) [Entitic vol] 90.0 fL 82.6 - 102.9 fL [place] Monocytes (Bld) [#/Vol] 0.68 10*3/uL [place] Monocytes/100 WBC (Bld) 7 % 3 - 12 % [place] Platelet mean volume (Bld) [Entitic vol] 10.6 fL 8.1 - 13.5 fL [place] Platelets (Bld) [#/Vol] NOT REPORTED [place] Platelets (Bld) [#/Vol] 251 10*3/uL [place] RBC (Bld) [#/Vol] 4.52 10*6/uL 3.95 - 5.1 1 m/uL [place] RBC morphology finding Nom (Bld) NOT REPORTED [place] Segmented neutrophils/100 WBC (Bld) 65 % 36 - 65 % [place] Segs Absolute 6.18 [place] WBC (Bld) [#/Vol] 0.0 10*3/uL 0.0 per 10 0 WBC [place] WBC (Bld) [#/Vol] 9.4 10*3/uL [place] WBC Morphology NOT REPORTED [place], [place] CBC with Diffon 09-01-2020 Abs. Basophil 0.10 k/uL Normal 0.00-0.20 [facility] Comment on above: Performed By: #### C DP, HCG, ALCB, BMPX, LIPR, GLYHGB #### [address] [address] Director Of Instruction: Dheeraj Garcia MD Abs.Imm.Granulocyte 0.06 k/uL Normal 0.00-0.30 [facility] Comment on above: Performed By: #### C DP, HCG, ALCB, BMPX, LIPR, GLYHGB #### [address] [address] Director Of Instruction: Dheeraj Garcia MD Abs.Neutrophil (Seg) 6.18 k/uL Normal 1.50-8.10 [facility] Comment on above: Performed By: #### C DP, HCG, ALCB, BMPX, LIPR, GLYHGB #### [address] [address] Director Of Instruction: Dheeraj Garcia MD Auto Diff Performed NOT REPORTED Normal [facility] Comment on above: Performed By: #### C DP, HCG, ALCB, BMPX, LIPR, GLYHGB #### [address] [address] Director Of Instruction: Dheeraj Garcia MD Basophils/100 WBC (Bld) 1 % Normal 0-2 [facility] Comment on above: Performed By: #### C DP, HCG, ALCB, BMPX, LIPR, GLYHGB #### [facility] [address] [place] [address] Director Of Instruction: Dheeraj Garcia MD Eosinophils (Bld) [#/Vol] 0.25 10*3/uL Normal 0.00-0.44 [facility] Comment on above: Performed By: #### C DP, HCG, ALCB, BMPX, LIPR, GLYHGB #### [facility] [address] [place] [address] Director Of Instruction: Dheeraj Garcia MD Eosinophils/100 WBC (Bld) 3 % Normal 1-4 [facility] Comment on above: Performed By: #### C DP, HCG, ALCB, BMPX, LIPR, GLYHGB #### [facility] [address] [place] [address] Director Of Instruction: Dheeraj Garcia MD Erythrocyte distribution width (RBC) [Ratio] 14.0 % Normal 11.8-14.4 [facility] Comment on above: Performed By: #### C DP, HCG, ALCB, BMPX, LIPR, GLYHGB #### [facility] [address] [place] [address] Director Of Instruction: Dheeraj Garcia MD Hematocrit (Bld) [Volume fraction] 40.7 % Normal 36.3-47.1 [facility] Comment on above: Performed By: #### C DP, HCG, ALCB, BMPX, LIPR, GLYHGB #### [facility] [address] [place] [address] Director Of Instruction: Dheeraj Garcia MD Hemoglobin (Bld) [Mass/Vol] 12.7 g/dL Normal 11.9-15.1 [facility] Comment on above: Performed By: #### C DP, HCG, ALCB, BMPX, LIPR, GLYHGB #### [facility] [address] [place] [address] Director Of Instruction: Dheeraj Garcia MD Immature granulocytes (Bld) [#/Vol] 1 % High 0 [facility] Comment on above: Performed By: #### C DP, HCG, ALCB, BMPX, LIPR, GLYHGB #### [address] [address] Director Of Instruction: Dheeraj Garcia MD Lymphocytes (Bld) [#/Vol] 2.12 10*3/uL Normal 1.10-3.70 [facility] Comment on above: Performed By: #### C DP, HCG, ALCB, BMPX, LIPR, GLYHGB #### [address] [address] Director Of Instruction: Dheeraj Garcia MD Lymphocytes/100 WBC (Bld) 23 % Low 24-43 [facility] Comment on above: Performed By: #### C DP, HCG, ALCB, BMPX, LIPR, GLYHGB #### [address] [address] Director Of Instruction: Dheeraj Garcia MD MCH (RBC) [Entitic mass] 28.1 pg Normal 25.2-33.5 [facility] Comment on above: Performed By: #### C DP, HCG, ALCB, BMPX, LIPR, GLYHGB #### [address] [address] Director Of Instruction: Dheeraj Garcia MD MCHC (RBC) [Mass/Vol] 31.2 g/dL Normal 28.4-34.8 [facility] Comment on above: Performed By: #### C DP, HCG, ALCB, BMPX, LIPR, GLYHGB #### [address] [address] Director Of Instruction: Dheeraj Garcia MD MCV (RBC) [Entitic vol] 90.0 fL Normal 82.6-102.9 [facility] Comment on above: Performed By: #### C DP, HCG, ALCB, BMPX, LIPR, GLYHGB #### [address] [address] Director Of Instruction: Dheeraj Garcia MD Monocytes (Bld) [#/Vol] 0.68 10*3/uL Normal 0.10-1.20 [facility] Comment on above: Performed By: #### C DP, HCG, ALCB, BMPX, LIPR, GLYHGB #### [address] [address] Director Of Instruction: Dheeraj Garcia MD Monocytes/100 WBC (Bld) 7 % Normal 3-12 [facility] Comment on above: Performed By: #### C DP, HCG, ALCB, BMPX, LIPR, GLYHGB #### [place] [address] Director Of Instruction: Dheeraj Garcia MD Neutrophil (Seg) 65 % Normal 36-65 [facility] Comment on above: Performed By: #### C DP, HCG, ALCB, BMPX, LIPR, GLYHGB #### [place] [address] Director Of Instruction: Dheeraj Garcia MD NRBC Automated 0.0 per 100 WBC Normal 0.0 [facility] Comment on above: Performed By: #### C DP, HCG, ALCB, BMPX, LIPR, GLYHGB #### [place] [address] Director Of Instruction: Dheeraj Garcia MD Platelet mean volume (Bld) [Entitic vol] 10.6 fL Normal 8.1-13.5 [facility] Comment on above: Performed By: #### C DP, HCG, ALCB, BMPX, LIPR, GLYHGB #### [place] [address] Director Of Instruction: Dheeraj Garcia MD Platelets (Bld) [#/Vol] NOT REPORTED Normal [facility] Comment on above: Performed By: #### C DP, HCG, ALCB, BMPX, LIPR, GLYHGB #### [address] [id number] [place] [address] Director Of Instruction: Dheeraj Garcia MD Platelets (Bld) [#/Vol] 251 10*3/uL Normal 138-453 [facility] Comment on above: Performed By: #### C DP, HCG, ALCB, BMPX, LIPR, GLYHGB #### [address] [address] Director Of Instruction: Dheeraj Garcia MD RBC (Bld) [#/Vol] 4.52 10*6/uL Normal 3.95-5.11 [facility] Comment on above: Performed By: #### C DP, HCG, ALCB, BMPX, LIPR, GLYHGB #### [address] [address] Director Of Instruction: Dheeraj Garcia MD RBC morphology finding Nom (Bld) NOT REPORTED Normal [facility] Comment on above: Performed By: #### C DP, HCG, ALCB, BMPX, LIPR, GLYHGB #### [address] [address] Director Of Instruction: Dheeraj Garcia MD WBC (Bld) [#/Vol] 9.4 10*3/uL Normal 3.5-11.3 [facility] Comment on above: Performed By: #### C DP, HCG, ALCB, BMPX, LIPR, GLYHGB #### [address] [address] Director Of Instruction: Dheeraj Garcia MD WBC Morphology NOT REPORTED Normal [facility] Comment on above: Performed By: #### C DP, HCG, ALCB, BMPX, LIPR, GLYHGB #### [address] [address] Director Of Instruction: Dheeraj Garcia MD Echo Completeon 09-01-2020 [place], M[facility]pn Incoming Cardio Results From [facility]/Ge - 09/01/2020 3:37 PM EDT Transthoracic Echocardiography Report (TTE) Patient Name MARGARITA Date of Study 09/01/2020 YEYO Date of 1955 Gender Female Age 64 year(s) Race Room Number 0234 Height: 65 inch, 165.1 cm Corporate ID [id number] Weight: 232 pounds, 105.2 kg # Patient Acct [id number] BSA: 2.11 m^2 BMI: 38.61 # kg/m^2 MR # [id number] Business Development Recruiter Pérez Lao Interpreting Physician Abundio Aguilar Fellow Referring Nurse Practitioner Interpreting Referring Physician Moisés Rodríguez Fellow Type of Study TTE procedure:2D Echocardiogram, M-Mode, Doppler, Color Doppler, Bubble Study. Procedure Date Date: 09/01/2020 Start: 07:38 AM Study Location: [facility] Technical Quality: Fair visualization Comments:Syncope, [...] - - - Electronically signed by Abundio Aguilar([facility] physician) on 09/01/2020 03:37 PM - FINDINGS [...] Wall E' velocity:0.07 m/s Lateral Wall E/E':8.8 [place] Transthoracic Echocardiography Report (TTE) Patient Name DENDINGER Date of Study 09/01/2020 YEYO Date of 1955 Gender Female Age 64 year(s) Race Room Number 0234 Height: 65 inch, 165.1 cm Corporate ID [id number] Weight: 232 pounds, 105.2 kg # Patient Acct [id number] BSA: 2.11 m^2 BMI: 38.61 # kg/m^2 MR # [id number] Business Development Recruiter Pérez Lao Interpreting Physician Abundio Aguilar Fellow Referring Nurse Practitioner Interpreting Referring Physician Moisés Rodríguez Fellow Type of Study TTE procedure:2D Echocardiogram, M-Mode, Doppler, Color Doppler, Bubble Study. Procedure Date Date: 09/01/2020 Start: 07:38 AM Study Location: [facility] Technical Quality: Fair visualization Comments:Syncope, [...] is seen. Signature Electronically signed by Abundio Aguilar([facility] physician) on 09/01/2020 03:37 PM FINDINGS Left [...] E' velocity:0.07 m/s Lateral Wall E/E':8.8 [facility] [place], [place] Ethanolon 09-01-2020 Ethanol [Mass/Vol] mg/dL <10 mg/dL [place] Ethanol percent <0.010 <0.010 % [facility] [place] [place] Ethanol Alcoholon 09-01-2020 Ethanol [Mass/Vol] mg/dL Normal <10 [facility] Comment on above: Performed By: #### E RTPF #### [facility] [address] [place], [place] [id number] Director Of Instruction: Dheeraj Garcia MD Ethanol percent <0.010 Normal <0.010 [facility] Comment on above: Performed By: #### E RTPF #### [facility] [address] [place] [address] Director Of Instruction: Dheeraj Garcia MD HCG Qualitative, Serumon hCG Qual Negative NEGATIVE [place], [place] Comment on above: Specimens with hCG l evels near the threshold of the test (25 mIU/mL) may give a negative or indeterminate result. In such cases, another test should be performed with a new specimen in 48-72 hours. If early is suspected clinically in this setting, correlation with quantitative serum b-hCG level is suggested. [facility] has confirmed the use of plasma for this test. This has not been cleared or approved by the U.S. Food and Drug Administration. The FDA has determined that such clearance is not necessary. HCG Screen, Bloodon 09-01-20 20 HCG Qn Negative Normal NEG [facility] Comment on above: Result Comment: Spec imens with hCG levels near the threshold of the test (25 mIU/mL) may give a negative or indeterminate result. In such cases, another test should be performed with a new specimen in 48-72 hours. If early is suspected clinically in this setting, correlation with quantitative serum b-hCG level is suggested. [facility] has confirmed the use of plasma for this test. This has not been cleared or approved by the U.S. Food and Drug Administration. The FDA has determined that such clearance is not necessary. Performed By: #### E RTPF #### [address] [place] [address] Director Of Instruction: Dheeraj Garcia MD Hematologyon 09-01-2020 WBC (Bld) [#/Vol] DUPLICATE ORDER per 100 WBC M [place], [place] Hemoglobin A1Con 09-01-2020 HbA1c (Bld) [Mass fraction] 151 mg/dL Normal [facility] Comment on above: Result Comment: The ADA and AACC recommend providing the estimated average glucose result to permit better patient understanding of their HBA1c result. Performed By: #### E RTPF #### [address] [address] Director Of Instruction: Dheeraj Garcia MD HbA1c (Bld) [Mass fraction] 6.9 % High 4.0-6.0 [facility] Comment on above: Performed By: #### E RTPF #### [address] [address] Director Of Instruction: Dheeraj Garcia MD Hemoglobin A1con 09-01-2020 Glucose [Mass/Vol] 151 mg/dL [place], [place] Comment on above: The ADA and AACC rec ommend providing the estimated average glucose result to permit better patient understanding of their HBA1c result. HbA1c (Bld) [Mass fraction] 6.9 % High 4 - 6 % [place] Interpretation and review of laboratory results Abnormal [place] Lipid Profileon 09-01-2020 Cholesterol [Mass/Vol] 123 mg/dL Normal <200 [facility] Comment on above: Result Comment: Cholesterol Guidelines: <200 Desirable 200-240 Borderline >240 Undesirable Performed By: #### E RTPF #### [address] [address] Director Of Instruction: Dheeraj Garcia MD Cholesterol in HDL [Mass/Vol] 43 mg/dL Normal >40 [facility] Comment on above: Result Comment: HDL Guidelines: <40 Undesirable 40-59 Borderline >59 Desirable Performed By: #### E RTPF #### [address] [place] [address] Director Of Instruction: Dheeraj Garcia MD Cholesterol in LDL [Mass/Vol] 50 mg/dL Normal 0-130 [facility] Comment on above: Result Comment: LDL Guidelines: <100 Desirable 100-129 Near to/above Desirable 130-159 Borderline >159 Undesirable Direct (measured) LDL and calculated LDL are not interchangeable tests. Performed By: #### E RTPF #### [facility] [address] [place] [address] Director Of Instruction: Dheeraj Garcia MD Cholesterol in VLDL [Mass/Vol] NOT REPORTED Normal 1-30 [facility] Comment on above: Performed By: #### E RTPF #### [facility] [address] [place] [address] Director Of Instruction: Dheeraj Garcia MD Cholesterol.total/Chol esterol in HDL [Mass ratio] 2.9 {ratio} Normal <5 [facility] Comment on above: Performed By: #### E RTPF #### [facility] [address] [place] [address] Director Of Instruction: Dheeraj Garcia MD Triglyceride [Mass/Vol] 149 mg/dL Normal <150 [facility] Comment on above: Result Comment: Triglyceride Guidelines: <150 Desirable 150-199 Borderline 200-499 High >499 Very high Based on AHA Guidelines for fasting triglyceride, August 2012. Performed By: #### E RTPF #### [address] [address] Director Of Instruction: Dheeraj Garcia MD Lipid panel - fastingon 08-17 Cholesterol [Mass/Vol] 123 mg/dL <200 [place] Comment on above: Cholesterol Guidelines: <200 Desirable 200-240 Borderline >240 Undesirable Cholesterol in HDL [Mass/Vol] 43 mg/dL >40 [place] Comment on above: HDL Guidelines: <40 Undesirable 40-59 Borderline >59 Desirable Cholesterol in LDL [Mass/Vol] 50 mg/dL 0 - 130 mg/dL [place] Comment on above: LDL Guidelines: <100 Desirable 100-129 Near to/above Desirable 130-159 Borderline >159 Undesirable Direct (measured) LDL and calculated LDL are not interchangeable tests. Cholesterol in VLDL [Mass/Vol] NOT REPORTED 1 - 30 mg/dL [place] Cholesterol.total/Chol esterol in HDL [Mass ratio] 2.9 {ratio} <5 [place] Triglyceride [Mass/Vol] 149 mg/dL <150 [place] Comment on above: Triglyceride Guidelines: <150 Desirable 150-199 Borderline 200-499 High >499 Very high Based on AHA Guidelines for fasting triglyceride, August 2012. Metabolic Panelon 09-01-2020 GFR/1.73 sq M predicted among non-blacks MDRD (S/P/Bld) [Vol rate/Area] DUPLICATE ORDER [place] Otheron 09-01-2020 Interpretation and review of laboratory results Abnormal [place] TRAUMA PANELon 09-01-2020 Hubert Test NOT REPORTED [place], [place] Anion gap [Moles/Vol] DUPLICATE ORDER mmol/L [place] aPTT Coag (Bld) [Time] 27.5 s [place], [place] Comment on above: IV Heparin Therapy Range: 48.6-77.8 aPTT Coag (Bld) [Time] 37.0 s [place] Blood Bank Specimen BILL FOR SERVICES PERFORMED [place] Carboxyhemoglobin 0.6 % 0 - 5 % [place], [place] Comment on above: Reference Range: Non-Smokers 0-2% Average Smoker 2-4% Heavy Smoker <10% Chloride [Moles/Vol] DUPLICATE ORDER mmol/L [place] CO2 [Moles/Vol] DUPLICATE ORDER mmol/L [place], [place] Creatinine [Mass/Vol] DUPLICATE ORDER mg/dL [place] Erythrocyte distribution width (RBC) [Ratio] DUPLICATE ORDER % [place] Ethanol [Mass/Vol] Order moved to nearest draw time. [id number] mg/dL [place] Ethanol percent Order moved to nearest draw time. [id number] % [place] FIO2 UNKNOWN [place] GFR DUPLICATE ORDER >60 mL/min [place] GFR Non- DUPLICATE ORDER >60 mL/min [place] Glucose [Mass/Vol] DUPLICATE ORDER mg/dL M [place] hCG Qual Order moved to nearest draw time. [id number] NEGATIVE [place] HCO3, Venous 27.6 mmol/L 24 - 30 mmol/L [place] Hematocrit (Bld) [Volume fraction] DUPLICATE ORDER % [place] Hemoglobin (Bld) [Mass/Vol] DUPLICATE ORDER g/dL [place] INR Coag (PPP) [Relative time] 1.0 {INR} [place], [place] Comment on above: Therapeutic Range: Moderate Anticoagulant Intensity: INR = 2.0-3.0 High Anticoagulant Intensity: INR = 2.5-3.5 Interpretation and review of laboratory results Abnormal [place] MCH (RBC) [Entitic mass] DUPLICATE ORDER pg [place] MCHC (RBC) [Mass/Vol] DUPLICATE ORDER g/dL [place] MCV (RBC) [Entitic vol] DUPLICATE ORDER fL [place] Methemoglobin NOT REPORTED 0 - 1.5 % [place], [place] Mode NOT REPORTED [place] Negative Base Excess, Christo NOT REPORTED 0 - 2 mmol/L [place] NOTIFICATION NOT REPORTED [place] NOTIFICATION TIME NOT REPORTED [place] O2 Device/Flow/% NOT REPORTED [place] Oxygen saturation in Blood 43.1 % Low 60 - 85 % [place] Oxyhemoglobin NOT REPORTED 95 - 98 % [place] pCO2, Christo 48.8 [place] pCO2, Christo, Temp Adj NOT REPORTED [place], [place] Peep/Cpap NOT REPORTED [place] pH, Christo 7.371 [place], [place] pH, Christo, Temp Adj NOT REPORTED [place] Platelet mean volume (Bld) [Entitic vol] DUPLICATE ORDER fL [place] Platelets (Bld) [#/Vol] DUPLICATE ORDER k/uL [place] pO2, Christo 23.6 Low [place] pO2, Christo, Temp Adj NOT REPORTED [place], [place] Positive Base Excess, Christo 2.1 mmol/L High 0 - 2 mmol/L [place] Potassium [Moles/Vol] DUPLICATE ORDER mmol/L [place] PSV NOT REPORTED [place] PT Coag (PPP) [Time] 10.4 s [place], [place] Pt. Position NOT REPORTED [place] RBC (Bld) [#/Vol] DUPLICATE ORDER m/uL [place] Sample Site NOT REPORTED [place], [place] Set Rate NOT REPORTED [place] Sodium [Moles/Vol] DUPLICATE ORDER mmol/L [place], [place] Text for Respiratory NOT REPORTED [place] Total Hb NOT REPORTED 12 - 16 g/dl [place] Total Rate NOT REPORTED [place] Urea nitrogen [Mass/Vol] DUPLICATE ORDER mg/dL [place] VT NOT REPORTED [place] Trauma Profileon 09-01-2020 Hubert Test NOT REPORTED Normal [facility] Comment on above: Performed By: #### E RTPF #### [facility] [address] [place] [address] Director Of Instruction: Dheeraj Garcia MD aPTT Coag (Bld) [Time] 27.5 s Normal 20.5-30.5 [facility] Comment on above: Result Comment: IV Heparin Therapy Range: 48.6-77.8 Performed By: #### E RTPF #### [facility] [address] [place] [address] [phone] Director Of Instruction: Dheeraj Garcia MD Blood Bank BILL FOR SERVICES PERFORMED Normal [facility] Comment on above: Performed By: #### E RTPF #### [facility] [address] [place] [address] [phone] Director Of Instruction: Dheeraj Garcia MD Body Temp. 37.0 Normal [facility] Comment on above: Performed By: #### E RTPF #### [address] [address] Director Of Instruction: Dheeraj Garcia MD Carboxy Hgb 0.6 % Normal 0-5 [facility] Comment on above: Result Comment: Reference Range: Non-Smokers 0-2% Average Smoker 2-4% Heavy Smoker <10% Performed By: #### E RTPF #### [address] [address] Director Of Instruction: Dheeraj Garcia MD FIO2 UNKNOWN Normal [facility] Comment on above: Performed By: #### E RTPF #### [address] [address] Director Of Instruction: Dheeraj Garcia MD HCO3 (Bld) [Moles/Vol] 27.6 mmol/L Normal 24-30 [facility] Comment on above: Performed By: #### E RTPF #### [address] [address] Director Of Instruction: Dheeraj Garcia MD INR Coag (PPP) [Relative time] 1.0 {INR} Normal [facility] Comment on above: Result Comment: Therapeutic Range: Moderate Anticoagulant Intensity: INR = 2.0-3.0 High Anticoagulant Intensity: INR = 2.5-3.5 Performed By: #### E RTPF #### [address] [address] Director Of Instruction: Dheeraj Garcia MD Methemoglobin NOT REPORTED Normal 0.0-1.5 [facility] Comment on above: Performed By: #### E RTPF #### [address] [address] Director Of Instruction: Dheeraj Garcia MD Mode NOT REPORTED Normal [facility] Comment on above: Performed By: #### E RTPF #### [address] [address] Director Of Instruction: Dheeraj Garcia MD Negative Base Excess NOT REPORTED Normal 0.0-2.0 [facility] Comment on above: Performed By: #### E RTPF #### [address] [address] Director Of Instruction: Dheeraj Garcia MD Notification Time NOT REPORTED Normal [facility] Comment on above: Performed By: #### E RTPF #### [address] [address] Director Of Instruction: Dheeraj Garcia MD Notification: NOT REPORTED Normal [facility] Comment on above: Performed By: #### E RTPF #### [address] [address] Director Of Instruction: Dheeraj Garcia MD O2 Device/Flow/% NOT REPORTED Normal [facility] Comment on above: Performed By: #### E RTPF #### [address] [address] Director Of Instruction: Dheeraj Garcia MD Oxygen (Bld) [Partial pressure] 23.6 mm[Hg] Low 30-50 [facility] Comment on above: Performed By: #### E RTPF #### [address] [address] Director Of Instruction: Dheeraj Garcia MD Oxygen saturation in Blood 43.1 % Low 60.0-85.0 [facility] Comment on above: Performed By: #### E RTPF #### [address] [address] Director Of Instruction: Dheeraj Garcia MD Oxyhemoglobin NOT REPORTED Normal 95.0-98.0 [facility] Comment on above: Performed By: #### E RTPF #### [address] [address] Director Of Instruction: Dheeraj Garcia MD pCO2 48.8 Normal 39-55 [facility] Comment on above: Performed By: #### E RTPF #### [address] [address] Director Of Instruction: Dheeraj Garcia MD Pco2 Adj'd for Temp. NOT REPORTED Normal 39-55 [facility] Comment on above: Performed By: #### E RTPF #### [address] [address] Director Of Instruction: Dheeraj Garcia MD PEEP/CPAP NOT REPORTED Normal [facility] Comment on above: Performed By: #### E RTPF #### [address] [address] Director Of Instruction: Dheeraj Garcia MD pH (Bld) 7.371 [pH] Normal 7.320-7.420 [facility] Comment on above: Performed By: #### E RTPF #### [address] [address] Director Of Instruction: Dheeraj Garcia MD pH Adjst'd for Temp. NOT REPORTED Normal 7.320-7.420 [facility] Comment on above: Performed By: #### E RTPF #### [address] [address] Director Of Instruction: Dheeraj Garcia MD pO2 Adj'd for Temp. NOT REPORTED Normal 30-50 [facility] Comment on above: Performed By: #### E RTPF #### [address] [address] Director Of Instruction: Dheeraj Garcia MD Positive Base Excess 2.1 mmol/L High 0.0-2.0 [facility] Comment on above: Performed By: #### E RTPF #### [address] [address] Director Of Instruction: Dheeraj Garcia MD PSV NOT REPORTED Normal [facility] Comment on above: Performed By: #### E RTPF #### [address] [address] Director Of Instruction: Dheeraj Garcia MD PT Coag (PPP) [Time] 10.4 s Normal 9.0-12.0 [facility] Comment on above: Performed By: #### E RTPF #### [address] [address] Director Of Instruction: Dheeraj Garcia MD Pt. Position NOT REPORTED Normal [facility] Comment on above: Performed By: #### E RTPF #### [address] [address] Director Of Instruction: Dheeraj Garcia MD Set Rate NOT REPORTED Normal [facility] Comment on above: Performed By: #### E RTPF #### [address] [address] Director Of Instruction: Dheeraj Garcia MD Site Drawn NOT REPORTED Normal [facility] Comment on above: Performed By: #### E RTPF #### [address] [address] Director Of Instruction: Dheeraj Garcia MD Text for Respiratory NOT REPORTED Normal [facility] Comment on above: Performed By: #### E RTPF #### [address] [address] Director Of Instruction: Dheeraj Garcia MD Total Hb NOT REPORTED Normal 12.0-16.0 [facility] Comment on above: Performed By: #### E RTPF #### [address] [place] [address] Director Of Instruction: Dheeraj Garcia MD Total Rate NOT REPORTED Normal [facility] Comment on above: Performed By: #### E RTPF #### [address] [place] [address] Director Of Instruction: Dheeraj Garcia MD [place] NOT REPORTED Normal [facility] Comment on above: Performed By: #### E RTPF #### [address] [place] [address] Director Of Instruction: Dheeraj Garcia MD CT CERVICAL SPINE WO [...] Krishna Martell DO 08/30/20 Final result Normal [facility] CT CHEST ABDOMEN PELVIS W [...] Brenda Sheldon MD 08/30/20 Final result Normal [facility] CT LUMBAR SPINE TRAUMA RECON [...] Krishna Martell DO 08/30/20 Final result Normal [facility] CT THORACIC SPINE TRAUMA REC [...] Krishna Martell DO 08/30/20 Final result Normal [facility] CTA HEAD NECK W CONTRASTon [...] Dom Zhong MD 08/30/20 Final result Normal [facility] MRI LIMITED BRAINon 08-31-20 20 [...] Hector Cooper MD 08/31/20 Final result Normal [facility] [place], [facility] Incoming Radiant Results From [employer] - 08/31/2020 11:56 AM EDT EXAMINATION: MRI [...] chronic microvascular disease without acute intracranial abnormality. [place] Minimal chronic microvascular disease without acute intracranial abnormality. [place] EXAMINATION: MRI OF THE BRAIN WITHOUT [...] The soft tissues demonstrate no acute abnormality. [place] Trauma Profileon 08-31-2020 (cont.) Normal [facility] Comment on above: Result Comment: Aver age GFR for 60-69 years old: 85 mL/min/1.73sq m Chronic Kidney Disease: <60 mL/min/1.73sq m Kidney failure: <15 mL/min/1.73sq m eGFR calculated using average adult body mass. Additional eGFR calculator available at: http://www.[employer]/multiple_crcl_2011.htm Performed By: #### E RTPF #### [address] [address] Director Of Instruction: Dheeraj Garcia MD Hubert Test NOT REPORTED Normal [facility] Comment on above: Performed By: #### E RTPF #### [address] [address] Director Of Instruction: Dheeraj Garcia MD Anion gap [Moles/Vol] 10 mmol/L Normal 9-17 [facility] Comment on above: Performed By: #### E RTPF #### [address] [address] Director Of Instruction: Dheeraj Garcia MD aPTT Coag (Bld) [Time] 24.4 s Normal 20.5-30.5 [facility] Comment on above: Result Comment: IV Heparin Therapy Range: 48.6-77.8 Performed By: #### E RTPF #### [address] [address] Director Of Instruction: Dheeraj Garcia MD Blood Bank BILL FOR SERVICES PERFORMED Normal [facility] Comment on above: Performed By: #### E RTPF #### [address] [address] Director Of Instruction: Dheeraj Garcia MD Body Temp. 37.0 Normal [facility] Comment on above: Performed By: #### E RTPF #### [address] [address] Director Of Instruction: Dheeraj Garcia MD Carboxy Hgb 2.2 % Normal 0-5 [facility] Comment on above: Result Comment: Reference Range: Non-Smokers 0-2% Average Smoker 2-4% Heavy Smoker <10% Performed By: #### E RTPF #### [address] [address] Director Of Instruction: Dheeraj Garcia MD Chloride [Moles/Vol] 106 mmol/L Normal 98-107 [facility] Comment on above: Performed By: #### E RTPF #### [address] [address] Director Of Instruction: Dheeraj Garcia MD CO2 [Moles/Vol] 23 mmol/L Normal 20-31 [facility] Comment on above: Performed By: #### E RTPF #### [address] [address] Director Of Instruction: Dheeraj Garcia MD Creatinine [Mass/Vol] 0.62 mg/dL Normal 0.50-0.90 [facility] Comment on above: Performed By: #### E RTPF #### [address] [address] Director Of Instruction: Dheeraj Garcia MD Erythrocyte distribution width (RBC) [Ratio] 14.1 % Normal 11.8-14.4 [facility] Comment on above: Performed By: #### E RTPF #### [address] [address] Director Of Instruction: Dheeraj Garcia MD Ethanol [Mass/Vol] mg/dL Normal <10 [facility] Comment on above: Performed By: #### E RTPF #### [address] Director Of Instruction: Dheeraj Garcia MD Ethanol percent <0.010 Normal <0.010 [facility] Comment on above: Performed By: #### E RTPF #### [address] [address] Director Of Instruction: Dheeraj Garcia MD FIO2 INFORMATION NOT PROVIDED Normal [facility] Comment on above: Performed By: #### E RTPF #### [address] [address] Director Of Instruction: Dheeraj Garcia MD GFR, Amer >60 Normal >60 [facility] Comment on above: Performed By: #### E RTPF #### [address] [address] Director Of Instruction: Dheeraj Garcia MD GFR,non Amer >60 Normal >60 [facility] Comment on above: Performed By: #### E RTPF #### [address] [address] Director Of Instruction: Dheeraj Garcia MD Glucose [Mass/Vol] 186 mg/dL High 70-99 [facility] Comment on above: Performed By: #### E RTPF #### [address] [address] Director Of Instruction: Dheeraj Garcia MD HCO3 (Bld) [Moles/Vol] 23.6 mmol/L Low 24-30 [facility] Comment on above: Performed By: #### E RTPF #### [address] [address] Director Of Instruction: Dheeraj Garcia MD Hematocrit (Bld) [Volume fraction] 38.2 % Normal 36.3-47.1 [facility] Comment on above: Performed By: #### E RTPF #### [address] [address] Director Of Instruction: Dheeraj Garcia MD Hemoglobin (Bld) [Mass/Vol] 12.3 g/dL Normal 11.9-15.1 [facility] Comment on above: Performed By: #### E RTPF #### [address] [address] Director Of Instruction: Dheeraj Garcia MD INR Coag (PPP) [Relative time] 1.0 {INR} Normal [facility] Comment on above: Result Comment: Therapeutic Range: Moderate Anticoagulant Intensity: INR = 2.0-3.0 High Anticoagulant Intensity: INR = 2.5-3.5 Performed By: #### E RTPF #### [address] [address] Director Of Instruction: Dheeraj Garcia MD MCH (RBC) [Entitic mass] 28.9 pg Normal 25.2-33.5 [facility] Comment on above: Performed By: #### E RTPF #### [address] [address] Director Of Instruction: Dheeraj Garcia MD MCHC (RBC) [Mass/Vol] 32.2 g/dL Normal 28.4-34.8 [facility] Comment on above: Performed By: #### E RTPF #### [address] [address] Director Of Instruction: Dheeraj Garcia MD MCV (RBC) [Entitic vol] 89.7 fL Normal 82.6-102.9 [facility] Comment on above: Performed By: #### E RTPF #### [facility] [address] [place] [address] Director Of Instruction: Dheeraj Garcia MD Methemoglobin NOT REPORTED Normal 0.0-1.5 [facility] Comment on above: Performed By: #### E RTPF #### [facility] [address] [place] [address] Director Of Instruction: Dheeraj Garcia MD Mode NOT REPORTED Normal [facility] Comment on above: Performed By: #### E RTPF #### [address] [address] Director Of Instruction: Dheeraj Garcia MD Negative Base Excess 0.8 mmol/L Normal 0.0-2.0 [facility] Comment on above: Performed By: #### E RTPF #### [facility] [address] [place] [address] Director Of Instruction: Dheeraj Garcia MD Notification Time NOT REPORTED Normal [facility] Comment on above: Performed By: #### E RTPF #### [address] [address] Director Of Instruction: Dheeraj Garcia MD Notification: NOT REPORTED Normal [facility] Comment on above: Performed By: #### E RTPF #### [facility] [address] [place] [address] Director Of Instruction: Dheeraj Garcia MD NRBC Automated 0.0 per 100 WBC Normal 0.0 [facility] Comment on above: Performed By: #### E RTPF #### [facility] [address] [place] [address] Director Of Instruction: Dheeraj Garcia MD O2 Device/Flow/% NOT REPORTED Normal [facility] Comment on above: Performed By: #### E RTPF #### [address] [address] Director Of Instruction: Dheeraj Garcia MD Oxygen (Bld) [Partial pressure] 143.0 mm[Hg] High 30-50 [facility] Comment on above: Performed By: #### E RTPF #### [address] [address] Director Of Instruction: Dheeraj Garcia MD Oxygen saturation in Blood 98.6 % High 60.0-85.0 [facility] Comment on above: Performed By: #### E RTPF #### [address] [address] Director Of Instruction: Dheeraj Garcia MD Oxyhemoglobin NOT REPORTED Normal 95.0-98.0 [facility] Comment on above: Performed By: #### E RTPF #### [address] [address] Director Of Instruction: Dheeraj Garcia MD pCO2 40.6 Normal 39-55 [facility] Comment on above: Performed By: #### E RTPF #### [address] [address] Director Of Instruction: Dheeraj Garcia MD Pco2 Adj'd for Temp. NOT REPORTED Normal 39-55 [facility] Comment on above: Performed By: #### E RTPF #### [address] [address] Director Of Instruction: Dheeraj Garcia MD PEEP/CPAP NOT REPORTED Normal [facility] Comment on above: Performed By: #### E RTPF #### [address] [address] Director Of Instruction: Dheeraj Garcia MD pH (Bld) 7.383 [pH] Normal 7.320-7.420 [facility] Comment on above: Performed By: #### E RTPF #### [address] [address] Director Of Instruction: Dheeraj Garcia MD pH Adjst'd for Temp. NOT REPORTED Normal 7.320-7.420 [facility] Comment on above: Performed By: #### E RTPF #### [address] [address] Director Of Instruction: Dheeraj Garcia MD Platelet mean volume (Bld) [Entitic vol] 10.6 fL Normal 8.1-13.5 [facility] Comment on above: Performed By: #### E RTPF #### [address] [address] Director Of Instruction: Dheeraj Garcia MD Platelets (Bld) [#/Vol] 268 10*3/uL Normal 138-453 [facility] Comment on above: Performed By: #### E RTPF #### [address] [address] Director Of Instruction: Dheeraj Garcia MD pO2 Adj'd for Temp. NOT REPORTED Normal 30-50 [facility] Comment on above: Performed By: #### E RTPF #### [address] [address] Director Of Instruction: Dheeraj Garcia MD Positive Base Excess NOT REPORTED Normal 0.0-2.0 [facility] Comment on above: Performed By: #### E RTPF #### [address] [address] Director Of Instruction: Dheeraj Garcia MD Potassium [Moles/Vol] 3.5 mmol/L Low 3.7-5.3 [facility] Comment on above: Performed By: #### E RTPF #### [address] [address] Director Of Instruction: Dheeraj Garcia MD PSV NOT REPORTED Normal [facility] Comment on above: Performed By: #### E RTPF #### [address] [address] Director Of Instruction: Dheeraj Garcia MD PT Coag (PPP) [Time] 10.5 s Normal 9.0-12.0 [facility] Comment on above: Performed By: #### E RTPF #### [address] [address] Director Of Instruction: Dheeraj Garcia MD Pt. Position NOT REPORTED Normal [facility] Comment on above: Performed By: #### E RTPF #### [address] [address] Director Of Instruction: Dheeraj Garcia MD RBC (Bld) [#/Vol] 4.26 10*6/uL Normal 3.95-5.11 [facility] Comment on above: Performed By: #### E RTPF #### [address] [address] Director Of Instruction: Dheeraj Garcia MD Set Rate NOT REPORTED Normal [facility] Comment on above: Performed By: #### E RTPF #### [address] [address] Director Of Instruction: Dheeraj Garcia MD Site Drawn NOT REPORTED Normal [facility] Comment on above: Performed By: #### E RTPF #### [address] [address] Director Of Instruction: Dheeraj Garcia MD Sodium [Moles/Vol] 139 mmol/L Normal 135-144 [facility] Comment on above: Performed By: #### E RTPF #### [address] [address] Director Of Instruction: Dheeraj Garcia MD Staging: NOT REPORTED Normal [facility] Comment on above: Performed By: #### E RTPF #### [address] [address] Director Of Instruction: Dheeraj Garcia MD Text for Respiratory NOT REPORTED Normal [facility] Comment on above: Performed By: #### E RTPF #### [address] [address] Director Of Instruction: Dheeraj Garcia MD Total Hb NOT REPORTED Normal 12.0-16.0 [facility] Comment on above: Performed By: #### E RTPF #### [address] [address] Director Of Instruction: Dheeraj Garcia MD Total Rate NOT REPORTED Normal [facility] Comment on above: Performed By: #### E RTPF #### [address] [address] Director Of Instruction: Dheeraj Garcia MD Urea nitrogen [Mass/Vol] 11 mg/dL Normal 8-23 [facility] Comment on above: Performed By: #### E RTPF #### [address] [address] Director Of Instruction: Dheeraj Garcia MD VT NOT REPORTED Normal [facility] Comment on above: Performed By: #### E RTPF #### [address] [address] Director Of Instruction: Dheeraj Garcia MD WBC (Bld) [#/Vol] 8.7 10*3/uL Normal 3.5-11.3 [facility] Comment on above: Performed By: #### E RTPF #### [address] [address] Director Of Instruction: Dheeraj Garcia MD Type + Screenon 08-31-2020 Type + Screen Sample Expiration 09/02/2020,2359 Arm Band Number BE [id number] ABO/Rh(D) O POSITIVE Antibody Screen NEGATIVE Normal [facility] Comment on above: Performed By: #### T YS #### [address] [place] [address] Director Of Instruction: Dheeraj Garcia MD XR SHOULDER LEFT (MIN [...] Delmis Adams MD 08/31/20 Final result Normal [facility] EXAMINATION: TWO XRAY VIEWS OF THE LEFT SHOULDER 08/31/2020 8:25 am COMPARISON: None. HISTORY: ORDERING SYSTEM PROVIDED HISTORY: trauma TECHNOLOGIST PROVIDED HISTORY: trauma Reason for Exam: trauma Acuity: Acute Type of Exam: Initial FINDINGS: The bones and joints are unremarkable without definite fracture, dislocation, abnormal soft tissue calcification or bony destructive lesion [facility] [place] Unremarkable three view left shoulder series [place], [place], [place] Incoming Radiant Results From [employer] - 08/31/2020 8:46 AM EDT EXAMINATION: TWO [...] IMPRESSION: Unremarkable three view left shoulder series [facility] [place] CERVICAL SPINE WO CONTRAS Ton 08-30-2020 No evidence of an acute fracture or traumatic malalignment involving the cervical spine [place], [place] EXAMINATION: CT OF THE CERVICAL SPINE [...] There is no prevertebral soft tissue swelling. [place], [place] Incoming Radiant Results From [employer] - 08/30/2020 11:01 PM EDT EXAMINATION: CT [...] or traumatic malalignment involving the cervical spine [place] CT CHEST ABDOMEN PELVIS W CO [...] aorta. Bones/Soft Tissues: No acute osseous abnormality. [facility] [place], [place] Ellis, pn Incoming Radiant Results From [employer] - 08/30/2020 11:25 PM EDT EXAMINATION: CT [...] could provide further information as clinically indicated. [place] 1. No acute or traumatic intrathoracic abnormality. 2. No acute or traumatic intra-abdominal abnormality. 3. Dilation of the main pulmonary artery, suggestive of pulmonary artery hypertension. 4. Hepatic steatosis. 5. 1.6 cm left upper pole renal lesion is indeterminate, possibly a cyst. Renal protocol CT or MRI could provide further information as clinically indicated. [place] LUMBAR SPINE TRAUMA RECON STRUCTIONon [...] the upper pole of the left kidney. [place], [place] Incoming Radiant Results From [employer] - 08/30/2020 11:26 PM EDT EXAMINATION: CT [...] or traumatic malalignment involving the lumbar spine. [place] No evidence of an acute fracture or traumatic malalignment involving the lumbar spine. [place] THORACIC SPINE TRAUMA REC ONSTRUCTIONon [...] the lung bases. No pneumothorax is noted. [place], [place] Incoming Radiant Results From [employer] - 08/30/2020 11:29 PM EDT EXAMINATION: CT [...] or traumatic malalignment involving the thoracic spine [place] No evidence of an acute fracture or traumatic malalignment involving the thoracic spine [place] CTA HEAD NECK W CONTRASTon 1 Unremarkable CTA of the neck. 50% stenosis left intracranial ICA, otherwise unremarkable CTA head. [place], [place] Incoming Radiant Results From [employer] - 08/30/2020 11:48 PM EDT EXAMINATION: CTA [...] left intracranial ICA, otherwise unremarkable CTA head. [employer] EXAMINATION: CTA OF THE HEAD AND NECK [...] fluid collection. The durán-white differentiation is maintained. [employer] TYPE AND SCREENon 08-30-2020 ABO/Rh Positive [place], [place] Arm Band Number BE [id number] [place], [place] Expiration Date 09/02/2020,1812 [place], [place] Trauma Panelon 08-30-2020 Hubert Test NOT REPORTED [place], [place] Anion gap [Moles/Vol] 10 mmol/L 9 - 17 mmol/L [place] aPTT Coag (Bld) [Time] 37.0 s [place] aPTT Coag (Bld) [Time] 24.4 s [place] Comment on above: IV Heparin Therapy Range: 48.6-77.8 Blood Bank Specimen BILL FOR SERVICES PERFORMED [place] Carboxyhemoglobin 2.2 % 0 - 5 % [place] Comment on above: Reference Range: Non-Smokers 0-2% Average Smoker 2-4% Heavy Smoker <10% Chloride [Moles/Vol] 106 mmol/L 98 - 10 7 mmol/L [place] CO2 [Moles/Vol] 23 mmol/L 20 - 31 mmol/L [place] Creatinine [Mass/Vol] 0.62 mg/dL 0.5 - 0.9 mg/dL [place] Erythrocyte distribution width (RBC) [Ratio] 14.1 % 11.8 - 14.4 % [place] Ethanol [Mass/Vol] mg/dL <10 mg/dL [place] Ethanol percent <0.010 <0.010 % [place] FIO2 INFORMATION NOT PROVIDED [place] GFR >60 >60 mL/min [place], [place] GFR Non- >60 >60 mL/min [place] GFR/1.73 sq M predicted among non-blacks MDRD (S/P/Bld) [Vol rate/Area] [place] Comment on above: Average GFR for 60-6 9 years old: 85 mL/min/1.73sq m Chronic Kidney Disease: <60 mL/min/1.73sq m Kidney failure: <15 mL/min/1.73sq m eGFR calculated using average adult body mass. Additional eGFR calculator available at: http://www.[employer]/multiple_crcl_2012.htm GFR/1.73 sq M predicted among non-blacks MDRD (S/P/Bld) [Vol rate/Area] NOT REPORTED [place] Glucose [Mass/Vol] 186 mg/dL High 70 - 99 mg/dL [place] hCG Qual CANCELLED PER ED NEGATIVE [place] HCO3, Venous 23.6 mmol/L Low 24 - 30 mmol/L [place] Hematocrit (Bld) [Volume fraction] 38.2 % 36.3 - 47.1 % [place] Hemoglobin (Bld) [Mass/Vol] 12.3 g/dL 11.9 - 15.1 g/dL [place] INR Coag (PPP) [Relative time] 1.0 {INR} [place] Comment on above: Therapeutic Range: Moderate Anticoagulant Intensity: INR = 2.0-3.0 High Anticoagulant Intensity: INR = 2.5-3.5 Interpretation and review of laboratory results Abnormal [place] MCH (RBC) [Entitic mass] 28.9 pg 25.2 - 33.5 pg [place] MCHC (RBC) [Mass/Vol] 32.2 g/dL 28.4 - 34.8 g/dL [place] MCV (RBC) [Entitic vol] 89.7 fL 82.6 - 102.9 fL [place] Methemoglobin NOT REPORTED 0 - 1.5 % [place] Mode NOT REPORTED [place] Negative Base Excess, Christo 0.8 mmol/L 0 - 2 mmol/L [place] NOTIFICATION NOT REPORTED [place] NOTIFICATION TIME NOT REPORTED [place] O2 Device/Flow/% NOT REPORTED [place] Oxygen saturation in Blood 98.6 % High 60 - 85 % [place] Oxyhemoglobin NOT REPORTED 95 - 98 % [place] pCO2, Christo 40.6 [place] pCO2, Christo, Temp Adj NOT REPORTED [place], [place] Peep/Cpap NOT REPORTED [place] pH, Christo 7.383 [place], [place] pH, Christo, Temp Adj NOT REPORTED [place] Platelet mean volume (Bld) [Entitic vol] 10.6 fL 8.1 - 13.5 fL [place] Platelets (Bld) [#/Vol] 268 10*3/uL [place] pO2, Christo 143.0 High [place] pO2, Christo, Temp Adj NOT REPORTED [place], [place] Positive Base Excess, Christo NOT REPORTED 0 - 2 mmol/L [place] Potassium [Moles/Vol] 3.5 mmol/L Low 3.7 - 5.3 mmol/L [place] PSV NOT REPORTED [place] PT Coag (PPP) [Time] 10.5 s [place], [place] Pt. Position NOT REPORTED [place] RBC (Bld) [#/Vol] 4.26 10*6/uL 3.95 - 5.1 1 m/uL [place] Sample Site NOT REPORTED [place], [place] Set Rate NOT REPORTED [place] Sodium [Moles/Vol] 139 mmol/L 135 - 144 mmol/L [place] Text for Respiratory NOT REPORTED [place] Total Hb NOT REPORTED 12 - 16 g/dl [place] Total Rate NOT REPORTED [place] Urea nitrogen [Mass/Vol] 11 mg/dL 8 - 23 mg/dL [place] NOT REPORTED [place] WBC (Bld) [#/Vol] 0.0 10*3/uL 0.0 per 10 0 WBC [place] WBC (Bld) [#/Vol] 8.7 10*3/uL [place] PROGRESSon 03-24-2019 Protein mass conc HNO ID: [id number] Author: Kamilah Jean) Kyle Service: ? Author Type: Physician Shower Enclosure Installer Type: Progress Notes Filed: 03/25/2019 10:38 AM Note Text: [facility] NOTE NAME: SHEMAR AVILA NO.: [id number] DATE OF SERVICE: 03/24/2019 [facility] DATE OF : 1955 CHIEF COMPLAINT: Skilled followup visit for discharge. Also complains of a cyst on her back. SUBJECTIVE FINDINGS: The patient was seen in her room today at [facility]. She is tentatively scheduled for discharge [...] above. MEDICATIONS: Medications were reviewed in the halfway records. OARRS report was run today and [...] DICTATED BY: Kamilah Wright PA-C PG/Niharika JOB# [id number] cc:[facility] Normal [facility] PROGRESSon 03-22-2019 Protein mass conc HNO ID: [id number] Author: Kamilah Wright (Pa) Service: ? Author Type: Physician Shower Enclosure Installer Type: Progress Notes Filed: 03/23/2019 11:37 AM Note Text: [facility] NOTE NAME: SHEMAR AVILA NO.: [id number] DATE OF SERVICE: 03/22/2019 [facility] DATE OF : 1955 CHIEF COMPLAINT: Skilled followup visit for stroke; today complaining of heartburn. SUBJECTIVE FINDINGS: The patient was seen in the therapy department at [facility]. She reports that overall she is [...] SYSTEMS: See above. MEDICATIONS: Reviewed in the halfway record. CODE STATUS: Full code. PHYSICAL EXAM: [...] DICTATED BY: Kamilah Wright PA-C PG/Niharika JOB# [id number] cc:[facility] Normal [facility] PROGRESSon 03-19-2019 Protein mass conc HNO ID: [id number] Author: Kamilah Wright (Pa) Service: ? Author Type: Physician Shower Enclosure Installer Type: Progress Notes Filed: 03/22/2019 12:17 PM Note Text: [facility] NOTE NAME: SHEMAR AVILA NO.: [id number] DATE OF SERVICE: 03/19/2019 [facility] DATE OF : 1955 CHIEF COMPLAINT: Follow up for stroke and weakness. SUBJECTIVE FINDINGS: The patient was seen in her room at [facility]. She is complaining of a headache [...] SYSTEMS: See above. MEDICATIONS: Reviewed in the halfway record. CODE STATUS: Full code. PHYSICAL EXAM: [...] DICTATED BY: Kamilah Wright PA-C PG/Niharika JOB# [id number] cc:Viviana Mota Normal [facility] PROGRESSon 03-17-2019 Protein mass conc HNO ID: [id number] Author: Kamilah Wright (Pa) Service: ? Author Type: Physician Shower Enclosure Installer Type: [place] Notes Filed: 03/18/2019 10:28 AM Note Text: [facility] NOTE NAME: SHEMAR AVILA NO.: [id number] DATE OF SERVICE: 03/17/2019 [facility] DATE OF : 1955 CHIEF COMPLAINT: Follow up for stroke and weakness. SUBJECTIVE FINDINGS: The patient was seen in the therapy department at [facility]. She is doing very well with [...] SYSTEMS: See above. MEDICATIONS: Reviewed in the halfway record. CODE STATUS: Full code. PHYSICAL EXAM: [...] DICTATED BY: Kamilah Wright PA-C PG/Niharika JOB# [id number] cc:[facility] Normal [facility] PROGRESSon 03-15-2019 Protein mass conc HNO ID: [id number] Author: Kyra Butler Service: ? Author Type: Physician Type: Progress Notes Filed: 03/18/2019 5:07 PM Note Text: [facility] RESIDENTIAL NOTE NAME: YEYO AVILA NO.: [id number] DATE OF SERVICE: 03/15/2019 [facility] DATE OF : 1955 New Patient History and Physical HISTORY OF PRESENT ILLNESS: The patient is a 63-year-old female was admitted to us from [facility] in [place] with the diagnoses of complicated headache syndrome [...] was negative. She was then transferred to [facility] where repeat CT scan along [...] therapy. DICTATED BY: MD NELIDA Larose/Niharika JOB# [id number] cc:[facility] Normal [facility] Social History Date Type Detail Facility Start: 02-24-2023 End: 11-12-2023 Tobacco smoking status Heavy tobacco smoker (finding) [facility] Comment on above: 1 pack a day Start: 03-19-2021 Tobacco smoking stat [facility] Ex-smoker (finding) [facility] Start: 1955 Sex Assigned At [facility] [place], [place] [facility]igned [facility] [place] Sex Assigned At Female [facility] Tobacco smoking status Never [facility] Wendy Comment on above: 1 pack a day Vital Signs Date Time Vital Sign Value Performing Clinician Facility 07-13-2023 11:32-0400 Body temperature 97.88 [degF] [facility] 07-13-2023 11:32-0400 Diastolic blood pressure 85 mm[Hg] [facility] 07-13-2023 11:32-0400 Heart rate 76 /min [facility] 07-13-2023 11:32-0400 Respiratory rate 18 /min [facility] 07-13-2023 11:32-0400 SaO2% (BldA) [Mass fraction] 97 % [facility]-2023 11:32-0400 Systolic blood pressure 147 mm[Hg[facility] 02-24-2023 13:08-0400 Promise to Return Ronobir FELICIA [facility] 02-24-2023 12:00-0400 Hourly Rounding Ronobir FELICIA [facility] 02-24-2023 12:00-0400 Promise to Return Ronobir FELICIA [facility] 02-24-2023 11:56-0400 Heart rate 62 /min Ronobir FELICIA [facility] 02-24-2023 11:56-0400 SaO2% (BldA) [Mass fraction] 97 % Ronobir FELICIA [facility] 02-24-2023 11:54-0400 Diastolic blood pressure 67 mm[Hg] Ronobir FELICIA [facility] 02-24-2023 11:54-0400 Mean blood pressure 88 mm[Hg] Ronobir FELICIA [facility] 02-24-2023 11:54-0400 Systolic blood pressure 130 mm[Hg] Ronobir FELICIA [facility] 02-24-2023 11:54-0400 Body temperature 97.88 [degF] Ronobir FELICIA [facility] 02-24-2023 11:11-0400 Hourly Rounding Ronobir FELICIA [facility] 02-24-2023 11:11-0400 Promise to Return Ronobir FELICIA [facility] 02-24-2023 11:00-0400 Hourly Rounding Ronobir FELICIA [facility] 02-24-2023 07:43-0400 Heart rate 61 /min Ronobir FELICIA [facility] 02-24-2023 07:43-0400 SaO2% (BldA) [Mass fraction] 98 % Ronobir FELICIA [facility] 02-24-2023 07:41-0400 Body temperature 98.06 [degF] Ronobir FELICIA [facility] 02-24-2023 07:41-0400 Diastolic blood pressure 74 mm[Hg] Ronobir FELICIA [facility] 02-24-2023 07:41-0400 Mean blood pressure 92 mm[Hg] Ronobir FELICIA [facility] 02-24-2023 07:41-0400 Systolic blood pressure 128 mm[Hg] Ronobir FELICIA [facility] 02-24-2023 03:47-0400 Blood Pressure Location Ronobir FELICIA [facility] 02-24-2023 03:47-0400 Body temperature 97.52 [degF] Ronobir FELICIA [facility] 02-24-2023 03:47-0400 Diastolic blood pressure 70 mm[Hg] Ronobir FELICIA [facility] 02-24-2023 03:47-0400 Heart rate 57 /min Ronobir FELICIA [facility] 02-24-2023 03:47-0400 Mean blood pressure 87 mm[Hg] Ronobir FELICIA [facility] 02-24-2023 03:47-0400 Respiratory rate 17 /min Ronobir FELICIA [facility] 02-24-2023 03:47-0400 Systolic blood pressure 120 mm[Hg] Ronobir FELICIA [facility] 02-24-2023 03:06-0400 Mean blood pressure 77 mm[Hg] Ronobir FELICIA [facility] 02-24-2023 03:06-0400 Respiratory rate 16 /min Ronobir FELICIA [facility] 02-24-2023 02:04-0400 Body temperature 96.8 [degF] Ronobir FELICIA [facility] 02-24-2023 02:04-0400 Mean blood pressure 68 mm[Hg] Ronobir FELICIA [facility] 02-24-2023 01:09-0400 Body temperature 96.62 [degF] Ronobir FELICIA [facility] 02-24-2023 00:21-0400 Heart rate 58 /min Ronobir FELICIA [facility] 02-24-2023 00:06-0400 gluc 139 mg/dL Ronobir FELICIA [facility] 02-24-2023 00:06-0400 Heart rate 61 /min Ronobir FELICIA [facility] 02-18-2022 13:50-0400 Body height 165.1 cm MD Shaikh Hernandez Work Phone: [facility] 02-18-2022 13:50-0400 Body weight 104.32 kg MD Shaikh Hernandez Work Phone: [facility] 09-01-2020 16:00-0400 BP Diastolic 85 mm[Hg] Dank Zohn [facility] , [place] 09-01-2020 16:00-0400 BP Systolic 158 mm[Hg] [facility] [place] 09-01-2020 14:12-0400 Pulse (Heart Rate) 72 /min [facility] [place] 09-01-2020 13:30-0400 Respiratory rate NOT REPORTED Dank Nunes [facility], [place] 09-01-2020 12:27-0400 Body Temperature 97.7 [degF] [facility] [place] [place] 09-01-2020 12:27-0400 Pulse Oximetry 94 % [facility] [place] 09-01-2020 07:15-0400 Respiratory rate NOT REPORTED [facility] Comment on above: Performed By: #### ERTPF #### [facility] [address] [place], [place] [id number] Director Of Instruction: Dheeraj Garcia MD 09-01-2020 04:45-0400 Respiratory Rate 15 /min [facility] [place] [place] 08-31-2020 18:45-0400 BMI (Body Mass Index) 38.72 kg/m2 [facility] [place] 08-31-2020 18:45-0400 Body weight 105.55 kg Dank Nunes [facility] , [place] 08-31-2020 18:45-0400 Height 165.1 cm [place] 08-31-2020 00:34-0400 Respiratory rate NOT REPORTED [facility] Comment on above: Performed By: #### ERTPF #### [facility] [address] [place], [place] [id number] Director Of Instruction: Dheeraj Garcia MD 08-30-2020 23:08-0400 Respiratory rate NOT REPORTED Dank Nunes [place], [place] Functional Status Date Assessment Result Facility 12-30-2023 Functional Status N/A [facility] 07-13-2023 Functional Status N/A [facility] 02-24-2023 Functional Status No [facility] 02-24-2023 Functional Status [facility] Clinical Notes 02-24-2023 to 01-14-2024 Note Date & Type Note Facility 01-14-2024 Note [facility] Cardiology Clinic Note Chief Complaint: Patient here [...] Iodinated contrast media, Aspirin, Atorvastatin, Cat/feline products, [place], Topiramate, Blue dye, Iodine, and Lisinopril Medications [...] 2010 hemishield graft (more content not included)... [facility] 12-30-2023 Note [id number] [facility] 12-30-2023 Hospital Discharge instructions Patient Education [...] With:Arturo DOLAN Address: [facility] [address] , [place] [address]- Business (1) When:03/29/2024 11:56:00 Comments:With a stone metabolic workup [facility] 12-30-2023 Note Custom Cystoscopy with Stent [...] you have a fever over 100 degrees. [facility] 12-03-2023 Note RCRI=3 points Class IV Risk 15.0 % 30-day risk of , [place], or cardiac arrest PMH- CAD s/p Stent, [...] you Alexia Cline NP Division of Cardiology, [facility]- [phone] Pager- [phone] Email- [email or web address] 07-13-2023 Hospital Discharge instructions Patient Education [...] to strengthen the arm. General instructions Take povx-bwi-yuicxuj and prescription medicines only as told by [...] provider. Document Revised: 07/19/2022 Document Reviewed: 07/19/2022 [employer] Patient Education 2022 [employer] 07/13/2023 12:19:06 Muscle Strain Muscle Strain A [...] is not too tight. General instructions Take inze-rvl-fdcyqvb and prescription medicines only as told by [...] provider. Document Revised: 01/21/2022 Document Reviewed: 01/21/2022 [employer] Patient Education 2022 [employer] Follow Up Care 07/13/2023 11:23:52 With:Danilo Ponce Address: [address] [place] [id number]- Business (1) When:07/16/2023 12:02:34 [facility] 07-13-2023 Evaluation + Plan note Extrac sherita from: Title:ED Note Author:Mathew Montana PA-C te:07/13/23 Shoulder pain (M25.519: Pain in unspecified shoulder) Ordered: acetaminophen-oxycodone, 1 tab(s), Oral, q6hr as needed for pain for 3 day(s), 15 tab(s), Refill(s) 0, [id number], 165, cm, 07/13/23 11:34:00 EDT, Height/Length Dosing, 95.5, kg, 07/13/23 11:34:00 EDT, Weight Dosing [facility]08-22-2023 NoteWill increase imdur to 60 mg and d/w pt that if migraines worsen she can reduce back to 30 mg Recent stress [facility] Note Recommended pt [place] [facility]23 NoteCoronary artery disease is stable Continue GDMT- Coreg, simvastatin, imdur continue risk factor modifications- heart healthy diet, regular exercise as tolerated and continue all medications.[facility] 07-08-2023 NoteNYHC II- currently LVEF normal 60%- recovered Mild MR and TV regurg Normal rt sided pressure Continue current med regime. Coreg, irbesartan, simvastatin, [facility] 07-08-2023 NoteHypertension is well controlled, Continue all current medsUniversGood [facility]08-22-2023 NoteUTP CARDIOLOGY PROGRESS NOTE HPI: Yeyo [...] States pain in groin Cat/Feline Products Hives Selkirk Hives Topiramate Hives and Other Blue Dye [...] mononitrate ER (I (more content not included)... [facility]06-09-2023 NotePatient here for follow up Holter monitor and stress test. Also had labs a few weeks ago. Review of Systems Cardiovascular: Positive for chest pain, dyspnea on exertion and near-syncope (with bending over). Neurological: Positive for dizziness and light-headedness. All other systems reviewed and are negative.[facility] 04-25-2023 NoteCardiology Clinic Note Subjective Yeyo [...] States pain in groin Cat/Feline Products Hives Selkirk Hives Topiramate Hives and Other Blue Dye [...] mg sublingual tablet, Dis (more content not included)...[facility] 03-10-2023 NoteCardiology Clinic Note Subjective Yeyo [...] States pain in groin Cat/Feline Products Hives [place] Hives Topiramate Hives and Other Blue Dye [...] systolic function. No significant (more content not included)...[facility] 02-24-2023 Evaluation + Plan noteExtracted from: Title:Discharge [...] Oral, BID, PRN With When Contact Information Danilo Ponce [address] [facility] [place] [address] [place] [address]- Business (1) Additional Instructions: Office is closed for lunch between Noon and 1 p.m. Please contact office for follow up appointment. Thank you! SHAIKH MARY Within 5 to 7 days [address] [place] [address] Business (1) Additional Instructions: Not a patient. Syncope, [id number] Extracted from: Title:APSO Note Author:PERLA PRADO, Mbanefo [facility]Day Moderate 35 Minutes 03242 2. RAMA (acute kidney injury) (N17.9: Acute kidney failure, unspecified) Acute kidney injury secondary to ATN from dehydration and antihypertensives. Resolved. Treated with IV fluid. Ordered: [facility] Hospital Care/Day Moderate 35 Minutes 35459 3. Hypokalemia (E87.6: Hypokalemia) Secondary to poor oral intake. Potassium level improving to 3.4. We will give patient additional potassium chloride. Ordered: potassium chloride, 40 mEq = 2 tab(s), Tab-ER, Oral, Once, Stop date 02/24/23 10:00:00 EDT, Routine, Start date 02/24/23 10:00:00 EDT, 02/24/23 9:46:00 EDT [facility] Hospital Care/Day Moderate 35 Minutes 00046 4. Diabetes mellitus (E11.9: Type 2 diabetes mellitus without complications) Continue sliding scale insulin. Ordered: [facility] Hospital Care/Day Moderate 35 Minutes 28747 5. High cholesterol (E78.00: Pure hypercholesterolemia, unspecified) On Lipitor at home. Ordered: [facility] Hospital Care/Day Moderate 35 Minutes 58212 6. Hypertension (I10: Essential (primary) hypertension) Blood pressure on the low side of normal. 7. CAD (coronary artery disease) (I25.10: Atherosclerotic heart disease of [place] coronary artery without angina pectoris) Continue on aspirin, Plavix. 8. Aortic aneurysm (I71.9: Aortic aneurysm of unspecified site, without rupture) Status post surgery. 9. Obese (E66.9: Obesity, unspecified) Recommend therapeutic lifestyle modification changes. 10. On deep vein thrombosis (DVT) prophylaxis (Z79.899: Other skilled nursing (current) drug therapy) Heparin. Disposition: Home soon pending physical therapy evaluation. I discussed the diagnosis and plan of care with the patient at the bedside. Moderate level of MDM based on addressing above issues. This documentation was transcribed using voice recognition software. Several attempts were made to ensure accuracy. However inadvertent computerized cartridge filler errors may be present. Leann Gunter. Hospitalist. [...] vein thrombosis (DVT) prophylaxis (Z79.899: Other terminal gauger (current) drug therapy) SCD, heparin Orders: acetaminophen, [...] XR Spine Lumbosacral 2 or 3 Views [facility]04-10-2023 Hospital Discharge instructions Patient Education 02/24/2023 11:49:54 Syncope, Kvnl-hc-Zfgs Syncope Syncope is when you pass out [...] pee (urine) pale yellow. General instructions Take hkqa-nzf-iqvivmi and prescription medicines only as told by [...] 04/21/2009 Document Revised: 12/16/2018 Document Reviewed: 12/16/2018 [employer] Patient Education 2020 [employer] Follow Up Care 02/24/2023 00:01:37 With:Danilo Ponce Address: [address] [place] [address]- Business (1) When: Unknown Comments:Office is closed for lunch between Noon and 1 p.m. Please contact office for follow up appointment.Thank you! With:SHAIKH MARY Address: [address] [place] [phone] Business (1) When:5 to 7 days Comments:Not a patient. [facility] information available [facility] Work Phone: Hospital course Narrative No data available for this section [facility] No data available for this section [facility] Summary Purpose Family History No Family [...] Directives: Admitting Physician: Hermelindo Adkins MD PCP: Danilo Ponce MD Discharging Nurse: Zaina QUEZADA Discharging [...] Assisted Dressing Independent Toileting Assisted Feeding Independent Sheet Metal Journeyman Independent Med Delivery whole Wound Care Documentation [...] 9 Discharging to Facility/ Agency Name: [facility] FAX [address] [facility] [address] Address: Phone: Fax: Dialysis Facility (if applicable) Name: Address: Dialysis Schedule: Phone: Fax: Biological Chemist/Arch Cushion Press Operator signature: EDT PHYSICIAN SECTION Prognosis: Good Condition at Discharge: Stable Rehab Potential (if transferring to Rehab): {Prognosis:[id number]} Recommended Labs or Other Treatments After Discharge: [...] called to the trauma nurse line at [phone] and please leave a message. Trauma is a life-threatening condition. Your doctor will want to closely monitor you. Be sure to goto all of your appointments. * Attachments The following attachments cannot be sent through Care Everywhere. * Fall Prevention (Chilean) * Falls: Get Up Safely Instruction (Chilean) * Vasovagal Syncope (Chilean) documented in this encounter History of Present [...] 4 wheeled walker, Cane, Quad cane, Crutches, Plastic Mixer, Sock aid(pt reported no use of DME at baseline) ADL Assistance: Independent Homemaking Assistance: Independent Homemaking Responsibilities: Yes Meal Prep Responsibility: Primary Laundry Responsibility: Primary Cleaning Responsibility: Primary Ambulation Assistance: Independent Transfer Assistance: Independent Active Hobbies And Crafts Sales Representative: Yes Mode of Transportation: Car 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 functional mobility. pt with no LOB ADL [...] L LE. pt unable to identify when property underwriter was touching L UE (on elbow [...] Plan Times per week: 3-5x/wk AM-PAC Score AM-[facility] Inpatient Daily Activity Raw Score: 16 (09/01/20 1441) AM-PAC Inpatient ADL T-Scale Score : 35.96 [...] activity in order to increase coordination and buyer assistant strength to L hand Short term goal 6: dem SBA during functional transfers/functional mobility with LRD, as needed Therapy Time Individual Concurrent Group Co-treatment Time In 1316 Time Out 1404 Minutes 48 Variance: 40 Debi Marques OTR/L * Taya Bergeron, GAUTAM - 09/01/2020 11:39 AM EDT Speech Language Pathology Facility/Department: [address] ORTHO/MED SURG Initial Speech/Language/Cognitive Assessment NAME: [...] the bathtub. +LOC, on Plavix. Taken to [place] where a stroke alert was initiated. CT head at 6pm today at [facility] did not show intracranial bleed. Transferred to [place] for trauma and neurology work-up. Upon arrival, Pt without neurological deficit, GCS 15, c/o FLORENTINO. Pt deemed hemodynamically stable and was sent to CT. Pain: Pain Assessment Pain Assessment: Faces Pain Level: 0 Assessment: Pt presents with mild-moderate cognitive deficits characterized by difficulty with immediate and short-term memory, verbal reasoning skills, and word associations. Pt. ON[place]AGA, which may haveaffected results of evaluation. Multiple repetitions provided throughout evaluation. Pt. Presents with no dysarthria, no O/M deficits at this time. ST to follow up and provide treatment to address noted deficits. Education provided. Recommendations: Requires CONDUIT CLEANER Intervention: Yes Duration/Frequency of Treatment: 3-5X/week D/C [...] 1126 Minutes 12 Completed by: Debi Andrade Operator Command Support Systems Clinician Cosigned By: Taya Bergeron M.A.CCC/CONDUIT CLEANER 09/01/2020 11:40 AM * Caleb Jefferson MD - 09/01/2020 10:26 AM EDT PROGRESS NOTE PATIENT NAME: Yeyo Avila DATE: 09/01/2020 SURGEON: Lucille PRIMARY CARE PHYSICIAN: Danilo Ponce MD HD: # 2 ASSESSMENT Patient [...] MD 09/01/2020 4:00 PM * Nader Petit, DATA RECOVERY PLANNER - 09/01/2020 10:02 AM EDT Physical Therapy Facility/Department: [address] ORTHO/MED SURG Daily Treatment Note NAME: [...] Safe use of RW Barriers to Learning: [place]A REQUIRES PT FOLLOW UP: Yes Activity Tolerance [...] 44 Timed Code Treatment Minutes: 40 Minutes DATA RECOVERY PLANNER returned to pt's room to have her attempt stair management, to return home safely Individual Individual Time In 1140 Time Out 1205 Minutes 25 Timed Code Treatment Minutes: 9 Minutes (a doctor interrupted PT, to assess the pt) Nader Petit, DATA RECOVERY PLANNER * Debi Marques OT - 09/01/2020 8:34 [...] 08/31/2020 3:09 PM EDT Physical Therapy Facility/Department: [facility] ED Initial Assessment NAME: Yeyo Avila [...] Ambulation Assistance: Independent Transfer Assistance: Independent Active Hobbies And Crafts Sales Representative: Yes Mode of Transportation: Car Occupation: Retired [...] section and content) DATE CREATED AUTHOR 04/06/2019 [facility] DATE CREATED AUTHOR AUTHOR'S ORGANIZ ATION 09/12/2020 [facility] DATE CREATED AUTHOR AUTHOR'S ORGANIZ ATION 03/28/2021 [facility] DATE CREATED AUTHOR AUTHOR'S ORGANIZ ATION 03/03/2022 [facility] DATE CREATED AUTHOR AUTHOR'S ORGANIZ ATION 04/25/2023 [facility] DATE CREATED AUTHOR AUTHOR'S ORGANIZ ATION 02/16/2024 [facility] DATE CREATED AUTHOR AUTHOR'S ORGANIZ ATION 03/01/2024 [facility] Reason for Visit (unrecogniz ed section and content) Reason Comments Fall Trauma Status Reason Specialty Diagnoses / Procedures Referre d By Contact Referred To Contact Diagnoses Syncope and collapse Procedures Syncope and collapse Hermelindo Adkins MD [address] [address], [address] [place] [address] [facility] Care Teams (unrecognized sec tion and content) [...] BE BASED ON THE PRIMARY CLINICAL RECORDS. [facility]. provides no warranty or guarantee of the accuracy or completeness of information in this document.
--- NOTE | 2024-04-21 20:33 | CT_ITS ---
The [address] [address] Patient Name: MARTHA AVILA MRN: [id number] date: 1955 Sex: F Assigned Patient Location: ER Current Patient Location: ED.MAIN Accession/Order Number: [id number] Exam Date: 04/21/2024 21:02 Report Date: 04/21/2024 22:08 At the request of: CORINA PRETTY Procedure: CT abdomen pelvis wo con EXAM: CT abdomen pelvis wo con CLINICAL INDICATION: Lower GI bleed COMPARISON: CT abdomen/pelvis 11/11/2023 TECHNIQUE: Axial CT of the abdomen, and pelvis was performed from the top of the hemidiaphragms to the inferior osseous pelvis without intravenous contrast. 2-D reformats were obtained. Automatic exposure control radiation dose reduction technology was utilized. FINDINGS: Evaluation is limited by lack of intravenous contrast. Visualized portion of the lung bases are unremarkable. Stable probable splenule. Hepatomegaly measuring up to 21.6 cm with tiny calcified granulomas. The spleen, kidneys, adrenal glands and pancreas are otherwise unremarkable. Gallbladder present. No abdominal aortic aneurysm. No enlarged lymph nodes, free fluid, or free air. The bowel is without evidence of obstruction or adjacent inflammatory changes. Bladder unremarkable. No suspicious osseous lesions. CT/CT abdomen pelvis wo con IMPRESSION: 1. No significant acute abnormality identified in the abdomen or pelvis, within the limits of unenhanced CT, as described above. Evaluation for active GI bleed limited without contrast. Electronically authenticated by: KAIDEN MELENDREZ Date: 04/21/2024 22:08
--- NOTE | 2024-04-21 20:33 | ECG_ITS ---
The [facility] Test Date: 2024-04-21 Pat Name: MARTHA AVILA Department: Room: - Gender: Female Merchandise Examiner: : 1955 Requested By: ROBIN PONCE Order Number: [id number] Reading MD: ESTELA JACOBS Measurements Intervals [place] Rate: 74 P: 62 SD: 210 QRS: 81 QRSD: 102 T: 82 QT: 408 QTc: 436 Interpretive Statements 1100 Sinus rhythm 2231 First degree AV block 9150 abnormal ECG Compared to ECG 11/12/2023 15:03:01 No significant changes Electronically Signed On 04-22-2024 21:22:17 EDT by ESTELA JACOBS
--- NOTE | 2024-04-21 20:43 | ED_ITS ---
Documented by User: REYNA Ellis 04/21/24 21:58 HPI HPI - General Adult General Chief complaint: GI Bleed Stated complaint: GI BLEED Time Seen by Provider: 04/21/24 20:22 Source: patient Mode of arrival: walk-in Limitations: no limitations History of Present Illness HPI narrative: Patient is a 68-year-old female who presents to the emergency room For ev aluation of continued rectal bleeding. Patient is well-known to this emergency department and states she takes aspirin and Plavix daily for history of stroke. She states she has had rectal bleeding for the last 6 days, she was told she has hemorrhoids but states she is now having heavier bleeding. She has no other focal medical complaints other than mild cramping in the abdomen. She has not been straining to have bowel movements. She states she has an appointment in 2 days with her PCP. No medications prior to arrival Related Data Home Medications ?Medication ?Instructions ?Recorded ?Confirmed carvedilol 25 mg tablet 25 mg PO DAILY 06/15/23 12/18/23 clopidogrel 75 mg tablet 75 mg PO DAILY 06/15/23 12/18/23 duloxetine 60 mg capsule,delayed 60 mg PO DAILY 06/15/23 12/18/23 release glimepiride 4 mg tablet 4 mg PO DAILY 06/15/23 12/18/23 insulin NPH-regular 70-30 U-100 See Protocol subcut 06/15/23 insulin 100 unit/mL subcutaneous pen (Novolin 70-30 FlexPen U-100 Insulin) irbesartan 150 mg tablet 150 mg PO DAILY 06/15/23 12/18/23 pantoprazole 40 mg tablet,delayed 40 mg PO DAILY 06/15/23 12/18/23 release simvastatin 40 mg tablet 40 mg PO DAILY 06/15/23 12/18/23 tizanidine 4 mg tablet 4 mg PO Q8H PRN muscle spasticity 06/15/23 12/18/23 bupropion HCl 150 mg 24 hr tablet, 150 mg PO DAILY 06/16/23 12/18/23 extended release diphenhydramine-phenylephrine 25 1 tab PO TID 06/16/23 12/18/23 mg-10 mg tablet (Allergy and Sinus Relief) isosorbide mononitrate 60 mg 30 mg PO DAILY 06/16/23 12/18/23 tablet,extended release 24 hr metoclopramide HCl 10 mg tablet 10 mg PO Q6H 06/16/23 12/18/23 aspirin 81 mg capsule 81 mg PO DAILY 04/21/24 04/21/24 Previous Rx's ?Medication ?Instructions ?Recorded oxybutynin chloride 10 mg 10 mg PO DAILY #30 tabs 11/13/23 tablet,extended release 24 hr cephalexin 500 mg capsule 500 mg PO BID 7 days #14 caps 12/18/23 Allergies Allergy/AdvReac Type Severity Reaction Status Date / Time lisinopril Allergy Severe Swelling Verified 04/21/24 20:32 of Lip/Tongue/Throat acetaminophen Allergy Intermediate Hives Verified 04/21/24 20:32 [From Excedrin Migraine] aspirin Allergy Intermediate Hives Verified 04/21/24 20:32 [From Excedrin Migraine] caffeine Allergy Intermediate Hives Verified 04/21/24 20:32 [From Excedrin Migraine] Iodinated Contrast Media Allergy Mild Hives Verified 04/21/24 20:32 strawberry Allergy Verified 04/21/24 20:32 sumatriptan [From Imitrex] AdvReac Intermediate Nausea Verified 04/21/24 20:32 topiramate [From Topamax] AdvReac Intermediate Nausea Verified 04/21/24 20:32 Opioid HPI Opioid Management Most Recent Opioid Data: Last Pain Scale 9 11/13/23 11:00 Review of Systems ROS Constitutional Denies: fever or chills Ears, nose, mouth, and throat Denies: throat pain or nasal congestion Respiratory Denies: shortness of breath Gastrointestinal Reports: abdominal pain and blood in stool; Denies: nausea, vomiting or diarrhea Genitourinary Denies: painful urination Musculoskeletal Denies: back pain Integumentary/Breast Denies: rash Neurological Denies: headache Hematologic/Lymphatic Reports: easy bruising and easy bleeding PFSH [facility] Medical History (Updated 04/21/24 @ 22:19 by Alexia Moreira MD) Incontinence ?R32 - Unspecified urinary incontinence (ICD-10) Dysuria ?R30.0 - Dysuria (ICD-10) Atypical chest pain ?R07.89 - Other chest pain (ICD-10) Hemiplegic migraine ?G43.409 - Hemiplegic migraine, not intractable, without status migrainosus (ICD-10) Coronary atherosclerosis ?I25.10 - Atherosclerotic heart disease of [place] coronary artery without angina pectoris (ICD-10) Systolic heart failure ?I50.20 - Unspecified systolic (congestive) heart failure (ICD-10) 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 ?Z87.74 - Personal history of (corrected) congenital malformations of heart and circulatory system (ICD-10) Anemia ?D64.9 - Anemia, unspecified (ICD-10) Depression ?F32.A - Depression, unspecified (ICD-10) Chronic obstructive pulmonary disease ?J44.9 - Chronic obstructive pulmonary disease, unspecified (ICD-10) Right sided weakness ?R53.1 - Weakness (ICD-10) GERD (gastroesophageal reflux disease) ?K21.9 - Gastro-esophageal reflux disease without esophagitis (ICD-10) Dyspnea on exertion ?R06.09 - Other forms of dyspnea (ICD-10) Angina at rest ?I20.89 - Other forms of angina pectoris (ICD-10) Arthritis ?M19.90 - Unspecified osteoarthritis, unspecified site (ICD-10) Fibromyalgia ?M79.7 - Fibromyalgia (ICD-10) Hyperlipidemia ?E78.5 - Hyperlipidemia, unspecified (ICD-10) Bladder cancer ?C67.9 - Malignant neoplasm of bladder, unspecified (ICD-10) Hearing loss ?H91.90 - Unspecified hearing loss, unspecified ear (ICD-10) CVA (cerebral vascular accident) ?I63.9 - Cerebral infarction, unspecified (ICD-10) Diabetes mellitus ?E11.9 - Type 2 diabetes mellitus without complications (ICD-10) Aorta aneurysm ?I71.9 - Aortic aneurysm of unspecified site, without rupture (ICD-10) Achilles rupture ?S86.019A - Strain of unspecified Achilles tendon, initial encounter (ICD-10) Coronary stent occlusion (~2011) ?T82.897A - Other specified complication of cardiac prosthetic devices, implants and grafts, initial encounter (ICD-10) Chest pain ?R07.9 - Chest pain, unspecified (ICD-10) Surgical History (Updated 12/11/23 @ 12:08 by Freda Monteiro NP) Status post cystoscopy with ureteral stent placement ?Z96.0 - Presence of urogenital implants (ICD-10) H/O cystoscopy ?Z98.890 - Other specified postprocedural states (ICD-10) H/O cystoscopy (11/13/23) ?Z98.890 - Other specified postprocedural states (ICD-10) History of tonsillectomy ?Z90.89 - Acquired absence of other organs (ICD-10) History of laparoscopy ?Z98.890 - Other specified postprocedural states (ICD-10) History of colonoscopy ?Z98.890 - Other specified postprocedural states (ICD-10) H/O knee surgery ?Z98.890 - Other specified postprocedural states (ICD-10) H/O knee surgery ?Z98.890 - Other specified postprocedural states (ICD-10) History of appendectomy ?Z90.49 - Acquired absence of other specified parts of digestive tract (ICD- 10) History of hysterectomy ?Z90.710 - Acquired absence of both cervix and uterus (ICD-10) History of cardiac catheterization ?Z98.890 - Other specified postprocedural states (ICD-10) History of heart artery stent ?Z95.5 - Presence of coronary angioplasty implant and graft (ICD-10) History of bladder surgery ?Z98.890 - Other specified postprocedural states (ICD-10) Family History (Updated 11/12/23 @ 14:55 by Freda Monteiro NP) Other Family history of diabetes mellitus Family history of hypertension Family history of lung cancer Family history of myocardial infarction Social History Within the past year, how often did you have a drink containing alcohol: never Score interpretation: A score less than 3 is consistent with normal alcohol consumption. Smoking status: Heavy tobacco smoker What tobacco products do you use: cigarettes Packs per day: 1 Years smoked: 50 Smoking pack-years: 50.00 Non-prescribed substance use: denies use Highest level of school completed/degree received: high school graduate Feel stressed/tense/nervous/anxious/difficulty sleeping: only a little Life stressors: recent of family or friend Life stressor details: Husbands Due to disability, difficulty making decisions: No Exam Narrative Exam Narrative: Gen.: Awake, alert, in no distress Head: Normocephalic, atraumatic ENT: Moist mucous membranes Respiratory: No respiratory distress, lungs clear bilaterally Cardio: Regular rate and rhythm Gastrointestinal: Abdomen is soft, nondistended and nontender to palpation; Rectal exam performed with Guicho Kirkpatrick RN at bedside throughout the duration of the exam. Patient with 2 large external hemorrhoids, mild amount of red blood noted at the opening of the rectum, no active hemorrhage noted. Extremities: Moves extremities equally, no injuries noted Psych: Normal mood and affect Neuro: No focal neuro deficit Skin: Warm, dry, intact Constitutional Vital Signs, click to edit/add: Last Vital Signs Temp 98.2 F 04/21/24 20:24 Pulse 77 04/21/24 20:24 Resp 22 H 04/21/24 20:24 BP 147/85 H 04/21/24 20:24 Pulse Ox 96 04/21/24 20:24 O2 Del Method Room Air 04/21/24 20:24 Course Vital Signs Vital signs: Vital Signs Temperature 98.2 F 04/21/24 20:24 Pulse Rate 77 04/21/24 20:24 Respiratory Rate 22 H 04/21/24 20:24 Blood Pressure 147/85 H 04/21/24 20:24 Pulse Oximetry 96 04/21/24 20:24 Oxygen Delivery Method Room Air 04/21/24 20:24 Temperature 98.2 F 04/21/24 20:24 Pulse Rate 77 04/21/24 20:24 Respiratory Rate 22 H 04/21/24 20:24 Blood Pressure 147/85 H 04/21/24 20:24 Pulse Oximetry 96 04/21/24 20:24 Oxygen Delivery Method Room Air 04/21/24 20:24 Medical Decision Making [facility] Narrative Medical decision making narrative: 2155: Patient given gentle fluids, lab studies show hemoglobin of 13.7 which is very stable for this patient. She has no active hemorrhaging in the emergency department with stable vital signs. Patient states she had a colonoscopy several months ago, however I found records for a cystoscope to remove a kidney stone. I do not see any records for colonoscopy recently for this patient. CT scan is pending and case is turned over to attending physician at this time. Medical Records Medical records reviewed: Yes I reviewed the patient's medical records Lab Data Lab results reviewed: Yes I reviewed the patient's lab results Labs: Lab Results 04/21/24 04/21/24 Range/Units 20:50 21:24 WBC 12.7 H (4.0-11.0) 10^3/uL RBC 4.45 (4.20-5.40) 10^6/uL Hgb 13.7 (12.0-16.0) g/dL Hct 41.1 (36.0-48.0) % MCV 92.4 (81.0-99.0) fL MCH 30.8 (26.7-34.0) pg MCHC 33.3 (29.9-35.2) g/dL RDW 12.5 (11.0-15.0) % Plt Count 249 (150-450) 10^3/uL MPV 10.7 (9.5-13.5) fL Neut % (Auto) 52.9 (43.0-75.0) % Lymph % (Auto) 32.9 (20.5-60.0) % [place] % (Auto) 8.2 (1.7-12.0) % Eos % (Auto) 4.5 (0.9-7.0) % Baso % (Auto) 1.0 (0.2-2.0) % Neut # (Auto) 6.7 H (1.4-6.5) 10^3/uL Lymph # (Auto) 4.2 H (1.2-3.8) 10^3/uL [place] # (Auto) 1.0 H (0.3-0.8) 10^3/uL Eos # (Auto) 0.6 (0.0-0.7) 10^3/uL Baso # (Auto) 0.1 (0.0-0.1) 10^3/uL Abs Immat Gran (auto) 0.06 H (0.00-0.03) 10^3/uL Imm/Tot Granulo (auto) 0.5 (0.0-0.5) % PT 10.8 (9.0-11.6) sec INR 1.02 Sodium 140 (136-145) mmol/L Potassium 3.4 L (3.5-5.1) mmol/L Chloride 104 (98-107) mmol/L Carbon Dioxide 27.4 (21.0-32.0) mmol/L Anion Gap 12.0 BUN 15.0 (7.0-18.0) mg/dL Creatinine 1.22 H (0.55-1.02) mg/dL Est GFR ( Amer) 53 L (>=60) Est GFR (Non-Af Amer) 44 L (>=60) BUN/Creatinine Ratio 12.3 Glucose 177 H (74-106) mg/dL Lactate 1.4 (0.4-2.0) mmol/L Calcium 9.4 (8.5-10.1) mg/dL Total Bilirubin 0.6 (0.2-1.0) mg/dL AST 8 L (15-37) U/L ALT 19 (14-59) U/L Alkaline Phosphatase 94 (46-116) U/L Total Protein 7.6 (6.4-8.2) g/dL Albumin 4.2 (3.4-5.0) g/dL Globulin 3.4 g/dL Albumin/Globulin Ratio 1.2 Urine Color Yellow (YELLOW) Urine Clarity Clear (CLEAR) Urine pH 6.0 (5.0-9.0) Ur Specific [place] 1.015 (1.005-1.025) Urine Protein Negative (NEG/TRACE) mg/dL Urine Glucose (UA) >=1000 A (NEGATIVE) mg/dL Urine Ketones Negative (NEGATIVE) mg/dL Urine Occult Blood Large A (NEGATIVE) Urine Nitrite Negative (NEGATIVE) Urine Bilirubin Negative (NEGATIVE) Urine Urobilinogen 0.2 (0.2-1.0) EU/dL Ur Leukocyte Esterase Negative (NEGATIVE) Urine RBC 2-5 A (0-2) #/HPF Urine WBC 0-2 A (NONE SEEN) #/HPF Ur Squamous Epith Cells Few A (NONE/RARE) #/LPF Urine Crystals None seen (None Seen) #/HPF Urine Bacteria Small A (NONE SEEN) #/HPF Urine Casts None seen (NONE SEEN) #/LPF Urine Mucus None seen (NONE SEEN) Ur Culture Indicated? Yes ECG Data Attestation: I personally reviewed and interpreted this ECG as follows: (Sinus rhythm at a rate of 74 with first-degree AV block, no acute ST elevation or ectopy. EKG reviewed by attending physician) Discharge Plan Discharge Stand Alone Forms: Portal Instructions Chief Complaint: GI Bleed Clinical Impression: Rectal bleeding, Hemorrhoids Patient Disposition: Home, Self-Care Time of Disposition Decision: 22:18 Condition: Good Prescriptions / Home Meds: No Action carvedilol 25 mg tablet 25 mg PO DAILY tizanidine 4 mg tablet 4 mg PO Q8H PRN (Reason: muscle spasticity) clopidogrel 75 mg tablet 75 mg PO DAILY simvastatin 40 mg tablet 40 mg PO DAILY pantoprazole 40 mg tablet,delayed release (DR/EC) 40 mg PO DAILY glimepiride 4 mg tablet 4 mg PO DAILY irbesartan 150 mg tablet 150 mg PO DAILY duloxetine 60 mg capsule,delayed release(DR/EC) 60 mg PO DAILY Novolin 70-30 FlexPen U-100 100 unit/mL (70-30) insulin pen See Protocol SUBCUT Protocol: Insulin Corrective High-Dose Regimen Condition: Fingerstick Blood Glucose Dose/Route: Insulin Units Condition: 141-200 mg/dl Dose/Route: 4 units/SQ Condition: 201-250 mg/dl Dose/Route: 8 units/SQ Condition: 251-300 mg/dl Dose/Route: 12 units/SQ Condition: 301-350 mg/dl Dose/Route: 16 units/SQ Condition: 351-400 mg/dl Dose/Route: 20 units/SQ Condition: 401-450 mg/dl Dose/Route: 24 units/SQ Condition: 451-500 mg/dl Dose/Route: 28 units/SQ Condition: greater than 500 mg/dl Dose/Route: 32 units/SQ and call practitioner isosorbide mononitrate 60 mg tablet extended release 24 hr 30 mg PO DAILY metoclopramide HCl 10 mg tablet 10 mg PO Q6H Allergy and Sinus Relief 25-10 mg tablet 1 tab PO TID bupropion HCl 150 mg tablet extended release 24 hr 150 mg PO DAILY oxybutynin chloride 10 mg tablet extended release 24hr 10 mg PO DAILY Qty: 30 1RF cephalexin 500 mg capsule 500 mg PO BID 7 Days Qty: 14 0RF aspirin 81 mg capsule 81 mg PO DAILY Print Language: [place] Instructions: Hemorrhoids (ED), Rectal Bleeding (ED), [place] (DC) Referrals: Danilo Mclain MD [Primary Care Provider] - 1 week Documented by User: Alexia Moreira MD 04/21/24 22:19 HPI HPI - General Adult General Chief complaint: GI Bleed Stated complaint: GI BLEED Time Seen by Provider: 04/21/24 20:22 Related Data Home Medications ?Medication ?Instructions ?Recorded ?Confirmed carvedilol 25 mg tablet 25 mg PO DAILY 06/15/23 12/18/23 clopidogrel 75 mg tablet 75 mg PO DAILY 06/15/23 12/18/23 duloxetine 60 mg capsule,delayed 60 mg PO DAILY 06/15/23 12/18/23 release glimepiride 4 mg tablet 4 mg PO DAILY 06/15/23 12/18/23 insulin NPH-regular 70-30 U-100 See Protocol subcut 06/15/23 insulin 100 unit/mL subcutaneous pen (Novolin 70-30 FlexPen U-100 Insulin) irbesartan 150 mg tablet 150 mg PO DAILY 06/15/23 12/18/23 pantoprazole 40 mg tablet,delayed 40 mg PO DAILY 06/15/23 12/18/23 release simvastatin 40 mg tablet 40 mg PO DAILY 06/15/23 12/18/23 tizanidine 4 mg tablet 4 mg PO Q8H PRN muscle spasticity 06/15/23 12/18/23 bupropion HCl 150 mg 24 hr tablet, 150 mg PO DAILY 06/16/23 12/18/23 extended release diphenhydramine-phenylephrine 25 1 tab PO TID 06/16/23 12/18/23 mg-10 mg tablet (Allergy and Sinus Relief) isosorbide mononitrate 60 mg 30 mg PO DAILY 06/16/23 12/18/23 tablet,extended release 24 hr metoclopramide HCl 10 mg tablet 10 mg PO Q6H 06/16/23 12/18/23 aspirin 81 mg capsule 81 mg PO DAILY 04/21/24 04/21/24 Previous Rx's ?Medication ?Instructions ?Recorded oxybutynin chloride 10 mg 10 mg PO DAILY #30 tabs 11/13/23 tablet,extended release 24 hr cephalexin 500 mg capsule 500 mg PO BID 7 days #14 caps 12/18/23 Allergies Allergy/AdvReac Type Severity Reaction Status Date / Time lisinopril Allergy Severe Swelling Verified 04/21/24 20:32 of Lip/Tongue/Throat acetaminophen Allergy Intermediate Hives Verified 06/05/24 20:32 [From Excedrin Migraine] aspirin Allergy Intermediate Hives Verified 04/21/24 20:32 [From Excedrin Migraine] caffeine Allergy Intermediate Hives Verified 04/21/24 20:32 [From Excedrin Migraine] Iodinated Contrast Media Allergy Mild Hives Verified 04/21/24 20:32 strawberry Allergy Verified 04/21/24 20:32 sumatriptan [From Imitrex] AdvReac Intermediate Nausea Verified 04/21/24 20:32 topiramate [From Topamax] AdvReac Intermediate Nausea Verified 04/21/24 20:32 Opioid HPI Opioid Management Most Recent Opioid Data: Last Pain Scale 9 11/13/23 11:00 PFSH PFS Medical History (Updated 04/21/24 @ 22:19 by Alexia Moreira MD) Incontinence ?R32 - Unspecified urinary incontinence (ICD-10) Dysuria ?R30.0 - Dysuria (ICD-10) Atypical chest pain ?R07.89 - Other chest pain (ICD-10) Hemiplegic migraine ?G43.409 - Hemiplegic migraine, not intractable, without status migrainosus (ICD-10) Coronary atherosclerosis ?I25.10 - Atherosclerotic heart disease of [place] coronary artery without angina pectoris (ICD-10) Systolic heart failure ?I50.20 - Unspecified systolic (congestive) heart failure (ICD-10) 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 ?Z87.74 - Personal history of (corrected) congenital malformations of heart and circulatory system (ICD-10) Anemia ?D64.9 - Anemia, unspecified (ICD-10) Depression ?F32.A - Depression, unspecified (ICD-10) Chronic obstructive pulmonary disease ?J44.9 - Chronic obstructive pulmonary disease, unspecified (ICD-10) Right sided weakness ?R53.1 - Weakness (ICD-10) GERD (gastroesophageal reflux disease) ?K21.9 - Gastro-esophageal reflux disease without esophagitis (ICD-10) Dyspnea on exertion ?R06.09 - Other forms of dyspnea (ICD-10) Angina at rest ?I20.89 - Other forms of angina pectoris (ICD-10) Arthritis ?M19.90 - Unspecified osteoarthritis, unspecified site (ICD-10) Fibromyalgia ?M79.7 - Fibromyalgia (ICD-10) Hyperlipidemia ?E78.5 - Hyperlipidemia, unspecified (ICD-10) Bladder cancer ?C67.9 - Malignant neoplasm of bladder, unspecified (ICD-10) Hearing loss ?H91.90 - Unspecified hearing loss, unspecified ear (ICD-10) CVA (cerebral vascular accident) ?I63.9 - Cerebral infarction, unspecified (ICD-10) Diabetes mellitus ?E11.9 - Type 2 diabetes mellitus without complications (ICD-10) Aorta aneurysm ?I71.9 - Aortic aneurysm of unspecified site, without rupture (ICD-10) Achilles rupture ?S86.019A - Strain of unspecified Achilles tendon, initial encounter (ICD-10) Coronary stent occlusion (~2011) ?T82.897A - Other specified complication of cardiac prosthetic devices, implants and grafts, initial encounter (ICD-10) Chest pain ?R07.9 - Chest pain, unspecified (ICD-10) Surgical History (Updated 12/11/23 @ 12:08 by Freda Monteiro NP) Status post cystoscopy with ureteral stent placement ?Z96.0 - Presence of urogenital implants (ICD-10) H/O cystoscopy ?Z98.890 - Other specified postprocedural states (ICD-10) H/O cystoscopy (11/13/23) ?Z98.890 - Other specified postprocedural states (ICD-10) History of tonsillectomy ?Z90.89 - Acquired absence of other organs (ICD-10) History of laparoscopy ?Z98.890 - Other specified postprocedural states (ICD-10) History of colonoscopy ?Z98.890 - Other specified postprocedural states (ICD-10) H/O knee surgery ?Z98.890 - Other specified postprocedural states (ICD-10) H/O knee surgery ?Z98.890 - Other specified postprocedural states (ICD-10) History of appendectomy ?Z90.49 - Acquired absence of other specified parts of digestive tract (ICD- 10) History of hysterectomy ?Z90.710 - Acquired absence of both cervix and uterus (ICD-10) History of cardiac catheterization ?Z98.890 - Other specified postprocedural states (ICD-10) History of heart artery stent ?Z95.5 - Presence of coronary angioplasty implant and graft (ICD-10) History of bladder surgery ?Z98.890 - Other specified postprocedural states (ICD-10) Family History (Updated 11/12/23 @ 14:55 by Freda Monteiro NP) Other Family history of diabetes mellitus Family history of hypertension Family history of lung cancer Family history of myocardial infarction Social History Within the past year, how often did you have a drink containing alcohol: never Score interpretation: A score less than 3 is consistent with normal alcohol consumption. Smoking status: Heavy tobacco smoker What tobacco products do you use: cigarettes Packs per day: 1 Years smoked: 50 Smoking pack-years: 50.00 Non-prescribed substance use: denies use Highest level of school completed/degree received: high school graduate Feel stressed/tense/nervous/anxious/difficulty sleeping: only a little Life stressors: recent of family or friend Life stressor details: Husbands Due to disability, difficulty making decisions: No Exam Constitutional Vital Signs, click to edit/add: Last Vital Signs Temp 98.2 F 04/21/24 20:24 Pulse 77 04/21/24 20:24 Resp 22 H 04/21/24 20:24 BP 147/85 H 04/21/24 20:24 Pulse Ox 96 04/21/24 20:24 O2 Del Method Room Air 04/21/24 20:24 Course Vital Signs Vital signs: Vital Signs Temperature 98.2 F 04/21/24 20:24 Pulse Rate 77 04/21/24 20:24 Respiratory Rate 22 H 04/21/24 20:24 Blood Pressure 147/85 H 04/21/24 20:24 Pulse Oximetry 96 04/21/24 20:24 Oxygen Delivery Method Room Air 04/21/24 20:24 Temperature 98.2 F 04/21/24 20:24 Pulse Rate 77 04/21/24 20:24 Respiratory Rate 22 H 04/21/24 20:24 Blood Pressure 147/85 H 04/21/24 20:24 Pulse Oximetry 96 04/21/24 20:24 Oxygen Delivery Method Room Air 04/21/24 20:24 Medical Decision Making MDM Narrative Medical decision making narrative: 2155: Patient given gentle fluids, lab studies show hemoglobin of 13.7 which is very stable for this patient. She has no active hemorrhaging in the emergency department with stable vital signs. Patient states she had a colonoscopy several months ago, however I found records for a cystoscope to remove a kidney stone. I do not see any records for colonoscopy recently for this patient. CT scan is pending and case is turned over to attending physician at this time. This patient was seen and evaluated conjunction with the physician sales assistant displays. Please refer to her full H&P. The patient presents with evaluation of lower GI bleeding. She does have a history of hemorrhoids. She is not having any rectal pain at this time. There was no sign of any thrombosed hemorrhoids. The patient states she has had a colonoscopy in the past, we did try to find this record but it appears that she had a cystoscopy instead of a colonoscopy. Patient's labs are stable. She is hemodynamically stable. She has not had any active bleeding in the emergency department. Hemoglobin is stable at 13.7. Lactic acid is normal. Electrolytes are normal with a mildly elevated creatinine of 1.22. Noncontrast CT scan of the abdomen pelvis is negative for acute findings. The results of the CT scan were discussed with the patient. She will be discharged home with a prescription for hemorrhoid medication and she states she has follow-up on Friday. She was instructed to return the emergency department for abdominal pain, worsening bleeding, dizziness syncope or any concerns. Medical Records Medical records narrative: The [address] [address] [address] Scan Report Signed Patient: MARTHA AVILA MR#: [id number] : 1955 Acct:[id number] Age/Sex: 68 / F ADM Date: 04/21/24 Loc: ER Attending Dr: Ordering Physician: Corina Pretty Date of Service: 04/21/24 Procedure(s): CT abdomen pelvis wo con Accession Number(s): [id number] cc: Danilo Mclain M.D.~ The [address] [address] Patient Name: MARTHA AVILA MRN: [id number] date: 1955 Sex: F Assigned Patient Location: ER Current Patient Location: ED.MAIN Accession/Order Number: [id number] Exam Date: 04/21/2024 21:02 Report Date: 04/21/2024 22:08 At the request of: CORINA PRETTY Procedure: CT abdomen pelvis wo con EXAM: CT abdomen pelvis wo con CLINICAL INDICATION: Lower GI bleed COMPARISON: CT abdomen/pelvis 11/11/2023 TECHNIQUE: Axial CT of the abdomen, and pelvis was performed from the top of the hemidiaphragms to the inferior osseous pelvis without intravenous contrast. 2-D reformats were obtained. Automatic exposure control radiation dose reduction technology was utilized. FINDINGS: Evaluation is limited by lack of intravenous contrast. Visualized portion of the lung bases are unremarkable. Stable probable splenule. Hepatomegaly measuring up to 21.6 cm with tiny calcified granulomas. The spleen, kidneys, adrenal glands and pancreas are otherwise unremarkable. Gallbladder present. No abdominal aortic aneurysm. No enlarged lymph nodes, free fluid, or free air. The bowel is without evidence of obstruction or adjacent inflammatory changes. Bladder unremarkable. No suspicious osseous lesions. CT/CT abdomen pelvis wo con IMPRESSION: 1. No significant acute abnormality identified in the abdomen or pelvis, within the limits of unenhanced CT, as described above. Evaluation for active GI bleed limited without contrast. Electronically authenticated by: KAIDEN MELENDREZ Date: 04/21/2024 22:08 Lab Data Labs: Lab Results 04/21/24 04/21/24 Range/Units 20:50 21:24 WBC 12.7 H (4.0-11.0) 10^3/uL RBC 4.45 (4.20-5.40) 10^6/uL Hgb 13.7 (12.0-16.0) g/dL Hct 41.1 (36.0-48.0) % MCV 92.4 (81.0-99.0) fL MCH 30.8 (26.7-34.0) pg MCHC 33.3 (29.9-35.2) g/dL RDW 12.5 (11.0-15.0) % Plt Count 249 (150-450) 10^3/uL MPV 10.7 (9.5-13.5) fL Neut % (Auto) 52.9 (43.0-75.0) % Lymph % (Auto) 32.9 (20.5-60.0) % [place] % (Auto) 8.2 (1.7-12.0) % Eos % (Auto) 4.5 (0.9-7.0) % Baso % (Auto) 1.0 (0.2-2.0) % Neut # (Auto) 6.7 H (1.4-6.5) 10^3/uL Lymph # (Auto) 4.2 H (1.2-3.8) 10^3/uL [place] # (Auto) 1.0 H (0.3-0.8) 10^3/uL Eos # (Auto) 0.6 (0.0-0.7) 10^3/uL Baso # (Auto) 0.1 (0.0-0.1) 10^3/uL Abs Immat Gran (auto) 0.06 H (0.00-0.03) 10^3/uL Imm/Tot Granulo (auto) 0.5 (0.0-0.5) % PT 10.8 (9.0-11.6) sec INR 1.02 Sodium 140 (136-145) mmol/L Potassium 3.4 L (3.5-5.1) mmol/L Chloride 104 (98-107) mmol/L Carbon Dioxide 27.4 (21.0-32.0) mmol/L Anion Gap 12.0 BUN 15.0 (7.0-18.0) mg/dL Creatinine 1.22 H (0.55-1.02) mg/dL Est GFR ( Amer) 53 L (>=60) Est GFR (Non-Af Amer) 44 L (>=60) BUN/Creatinine Ratio 12.3 Glucose 177 H (74-106) mg/dL Lactate 1.4 (0.4-2.0) mmol/L Calcium 9.4 (8.5-10.1) mg/dL Total Bilirubin 0.6 (0.2-1.0) mg/dL AST 8 L (15-37) U/L ALT 19 (14-59) U/L Alkaline Phosphatase 94 (46-116) U/L Total Protein 7.6 (6.4-8.2) g/dL Albumin 4.2 (3.4-5.0) g/dL Globulin 3.4 g/dL Albumin/Globulin Ratio 1.2 Urine Color Yellow (YELLOW) Urine Clarity Clear (CLEAR) Urine pH 6.0 (5.0-9.0) Ur Specific [place] 1.015 (1.005-1.025) Urine Protein Negative (NEG/TRACE) mg/dL Urine Glucose (UA) >=1000 A (NEGATIVE) mg/dL Urine Ketones Negative (NEGATIVE) mg/dL Urine Occult Blood Large A (NEGATIVE) Urine Nitrite Negative (NEGATIVE) Urine Bilirubin Negative (NEGATIVE) Urine Urobilinogen 0.2 (0.2-1.0) EU/dL Ur Leukocyte Esterase Negative (NEGATIVE) Urine RBC 2-5 A (0-2) #/HPF Urine WBC 0-2 A (NONE SEEN) #/HPF Ur Squamous Epith Cells Few A (NONE/RARE) #/LPF Urine Crystals None seen (None Seen) #/HPF Urine Bacteria Small A (NONE SEEN) #/HPF Urine Casts None seen (NONE SEEN) #/LPF Urine Mucus None seen (NONE SEEN) Ur Culture Indicated? Yes Discharge Plan Discharge Stand Alone Forms: Portal Instructions Chief Complaint: GI Bleed Clinical Impression: Rectal bleeding, Hemorrhoids Patient Disposition: Home, Self-Care Time of Disposition Decision: 22:18 Condition: Good Prescriptions / Home Meds: No Action carvedilol 25 mg tablet 25 mg PO DAILY tizanidine 4 mg tablet 4 mg PO Q8H PRN (Reason: muscle spasticity) clopidogrel 75 mg tablet 75 mg PO DAILY simvastatin 40 mg tablet 40 mg PO DAILY pantoprazole 40 mg tablet,delayed release (DR/EC) 40 mg PO DAILY glimepiride 4 mg tablet 4 mg PO DAILY irbesartan 150 mg tablet 150 mg PO DAILY duloxetine 60 mg capsule,delayed release(DR/EC) 60 mg PO DAILY Novolin 70-30 FlexPen U-100 100 unit/mL (70-30) insulin pen See Protocol SUBCUT Protocol: Insulin Corrective High-Dose Regimen Condition: Fingerstick Blood Glucose Dose/Route: Insulin Units Condition: 141-200 mg/dl Dose/Route: 4 units/SQ Condition: 201-250 mg/dl Dose/Route: 8 units/SQ Condition: 251-300 mg/dl Dose/Route: 12 units/SQ Condition: 301-350 mg/dl Dose/Route: 16 units/SQ Condition: 351-400 mg/dl Dose/Route: 20 units/SQ Condition: 401-450 mg/dl Dose/Route: 24 units/SQ Condition: 451-500 mg/dl Dose/Route: 28 units/SQ Condition: greater than 500 mg/dl Dose/Route: 32 units/SQ and call practitioner isosorbide mononitrate 60 mg tablet extended release 24 hr 30 mg PO DAILY metoclopramide HCl 10 mg tablet 10 mg PO Q6H Allergy and Sinus Relief 25-10 mg tablet 1 tab PO TID bupropion HCl 150 mg tablet extended release 24 hr 150 mg PO DAILY oxybutynin chloride 10 mg tablet extended release 24hr 10 mg PO DAILY Qty: 30 1RF cephalexin 500 mg capsule 500 mg PO BID 7 Days Qty: 14 0RF aspirin 81 mg capsule 81 mg PO DAILY Print Language: [place] Instructions: Hemorrhoids (ED), Rectal Bleeding (ED), Sitz Bath (DC) Referrals: Danilo Mclain MD [Primary Care Provider] - 1 week
[2024-04-21 21:05] LABS: Basophils Absolute Auto 0.1 10^3/uL (0.0-0.1); Eosinophils Absolute Auto 0.6 10^3/uL (0.0-0.7); Eosinophils Percent Auto 4.5 % (0.9-7.0); Hematocrit 41.1 % (36.0-48.0); Hemoglobin 13.7 g/dL (12.0-16.0); Immature Granulocytes Abs Auto 0.06 10^3/uL (0.00-0.03); Immature Granulocytes Pct Auto 0.5 % (0.0-0.5); Lymphocytes Absolute Auto 4.2 10^3/uL (1.2-3.8); Lymphocytes Percent Auto 32.9 % (20.5-60.0); Mean Corpuscular HGB Conc 33.3 g/dL (29.9-35.2); Mean Corpuscular Hemoglobin 30.8 pg (26.7-34.0); Mean Corpuscular Volume 92.4 fL (81.0-99.0); Mean Platelet Volume 10.7 fL (9.5-13.5); Monocytes Percent Auto 8.2 % (1.7-12.0); Neutrophils Absolute Auto 6.7 10^3/uL (1.4-6.5); Neutrophils Percent Auto 52.9 % (43.0-75.0); Platelet Count 249 10^3/uL (150-450); Red Blood Count 4.45 10^6/uL (4.20-5.40); Red Cell Distribution Width 12.5 % (11.0-15.0); White Blood Count 12.7 10^3/uL (4.0-11.0)
[2024-04-21] MEDS: 0.9 % SODIUM CHLORIDE 1,000 ML 100 ML IV (21:18)
[2024-04-21 21:19] LABS: INR 1.02; Prothrombin Time 10.8 sec (9.0-11.6)
[2024-04-21 21:20] LABS: Alanine Aminotransferase 19 U/L (14-59); Albumin Globulin Ratio 1.2; Albumin Level 4.2 g/dL (3.4-5.0); Alkaline Phosphatase 94 U/L (46-116); Aspartate Amino Transferase 8 U/L (15-37); BUN Creatinine Ratio 12.3; Bilirubin Total 0.6 mg/dL (0.2-1.0); Calcium 9.4 mg/dL (8.5-10.1); Carbon Dioxide 27.4 mmol/L (21.0-32.0); Chloride 104 mmol/L (98-107); Estimated GFR (African America 53 (>=60); Estimated GFR (Non-African Ame 44 (>=60); Globulin 3.4 g/dL; Glucose 177 mg/dL (74-106); Potassium 3.4 mmol/L (3.5-5.1); Sodium 140 mmol/L (136-145); Total Protein 7.6 g/dL (6.4-8.2)
[2024-04-21 21:23] LABS: Lactate/Lactic Acid 1.4 mmol/L (0.4-2.0)
[2024-04-21 21:32] LABS: Bilirubin Urine NEGATIVE (NEGATIVE); Blood Urine LARGE (NEGATIVE); Clarity Urine CLEAR (CLEAR); Color Urine YELLOW (YELLOW); Glucose Urine UA >=1000 mg/dL (NEGATIVE); Ketones Urine NEGATIVE (NEGATIVE); Leukocyte Esterase Urine NEGATIVE (NEGATIVE); Nitrite Urine NEGATIVE (NEGATIVE); Protein Urine NEGATIVE (NEG/TRACE); Specific Gravity Urine 1.015 (1.005-1.025); Urobilinogen Urine 0.2 EU/dL (0.2-1.0)
[2024-04-21 21:33] LABS: Urine Microscopic Indicated YES
[2024-04-21 21:40] LABS: Bacteria Urine SMALL #/HPF (NONE SEEN); Mucus Urine NONE SEEN (NONE SEEN); WBC Urine 0-2 #/HPF (NONE SEEN)
[2024-04-21 21:41] LABS: Cast Seen? NONE SEEN #/LPF (NONE SEEN); Crystals Seen? None Seen #/HPF (None Seen); Squamous Epithelial Cell Urine FEW #/LPF (NONE/RARE); Urine Culture Indicated YES
== END 2024-04-21 22:26 | disposition home or self-care (01) ==
PROVIDERS: Physician Assistant; Emergency Provider Emergency Medicine; PCP Family Medicine
DX: K62.5 Hemorrhage of anus and rectum (principal); K64.9 Unspecified hemorrhoids; Z86.73 Personal history of transient ischemic attack (TIA), and cerebral infarction without residual deficits; Z79.82 Long term (current) use of aspirin; Z79.02 Long term (current) use of antithrombotics/antiplatelets; F17.210 Nicotine dependence, cigarettes, uncomplicated; R82.998 Other abnormal findings in urine
CPT/HCPCS: 36415; 74176; 80053; 81001; 83605; 85025; 85610; 87086; 93005; 99285

== ENCOUNTER 2024-04-23 10:37 | Outpatient (OUT) | payer MEDICARE, SELFPAY ==
--- OUTSIDE RECORDS SUMMARY | 2024-04-23 10:51 | XMS_ITS | CCD ---
Author Organization [facility] Care Team Providers Care Crm Manager Name Role Phone Robin Ponce Primary Care Provider [phone] HERMELINDO ADKINS Consulting Unavailable ROBIN PONCE Primary Care Unavailable HERMELINDO ADKINS Attending Unavailable HERMELINDO ADKINS Admitting Unavailable GENEVIEVE LINGDEOB Consulting Unavailable CONCEPCIÓN EHAB A Attending Unavailable VIJAY PARDOAB Sean [...] Care Unavailable JEFFRY WILLIAMSON Admitting Unavailable SHELLEY II TIMOTEO Consulting Unavailable JEFFRY WILLIAMSON Attending Unavailable JEFFRY WILLIAMSON Consulting Unavailable LAURIE DE SOUZA Consulting Unavailable SHAIKH Enio HERNANDEZ [...] Unavailable REGIS, DR ZELALEM Bates Admitting Unavailable FAWDELVIND, TRENT H Primary Care Unavailable REGIS, DR ZELALEM Bates Attending Unavailable REGIS, DR ZELALEM Bates Consulting Unavailable MIKAEL GUZMAN Consulting Unavailable Robin Ponce Primary Care Physician JONO LOPEZ Attending Unavailable ELTAJES, REBEKA Attending Unavailable MARLYN, ALEXIA Attending Unavailable JONO LOPEZ Attending Unavailable DOLAN, Arturo Bates Attending Unavailable Hajdari, Astrit H Attending Unavailable FAWWAD, TRENT Primary Care Unavailable DOLAN, rAturo R Attending Unavailable DOLAN, Arturo R Attending Unavailable DOLAN, Arturo R Admitting Unavailable DOLAN, Arturo R Attending Unavailable DOLAN, Arturo R Referring Unavailable Allergies Allergy Classification Reported Allergen(s) Allergy Type Date of Onset Reaction(s) Facility Angiotensin Converting Enzyme (RYANNE) Inhibitors (1 source) Lisinopril Drug Allergy [facility] Repository Anti-Epileptic Agents (1 source) topiramate Drug Allergy 011 [facility] Berries (1 source) [place] Food Allergy [facility] Cats (1 source) Cat Animal Allergy (Dander) [facility] Dextroamphetamine (1 source) Dextroamphetamine Drug Allergy 011 [facility] Iodine (and Iodine containting drugs) (1 source) Iodine (And Iodine Containting Drugs) Drug Allergy [facility] Unclassified (2 sources) BLUE DYE; Translations: [BLUE DYE] Drug allergy (disorder) [facility] (7 sources) Aspirin; Translations: [Aspirin] Drug Allergy 016 Nausea [facility] Comment on above: uncoded aspirin (5 sources) atorvastatin; Translations: [atorvastatin] Drug Allergy 014 Unknown Reaction [facility] (8 sources) Lisinopril; Translations: [Lisinopril] Drug Allergy Swelling of Lip/Tongue/Th roat, morphine [facility] (2 sources) Morphine; Translations: [morphine] Drug Allergy [facility] (4 sources) strawberry allergenic extract; Translations: [[place]] Drug Allergy 011 [facility] (5 sources) topiramate; Translations: [topiramate] Drug Allergy Urticaria (disorder) [facility] (1 source) cat dander Allergy to substance [facility] (2 sources) Iodinated Contrast Media; Translations: [IODINATED CONTRAST MEDIA] Allergy to substance [facility] (4 sources) Contrast media; Translations: [Contrast Dye] Drug allergy Urticaria (disorder) [facility] (4 sources) [place]; Translations: [Strawberries] Drug allergy Urticaria (disorder) [facility] (4 sources) SUMAtriptan; Translations: [sumatriptan] Drug Allergy [facility] (1 source) Acetaminophen / Aspirin / Caffeine Drug Allergy [facility] (2 sources) Dextroamphetamine; Translations: [Lipitor] Drug Allergy [facility] (2 sources) Iodine (And Iodine Containting Drugs) Drug allergy (disorder) [facility] (1 source) Ketorolac Drug Allergy [facility] (1 source) Plasmin Drug Allergy [facility] (3 sources) topiramate; Translations: [Topamax] Drug Allergy [facility] (2 sources) Dhe Drug allergy (disorder) [facility] (2 sources) Cat/Feline Product Derivatives Drug allergy (disorder) [facility] (1 source) Iodine; Translations: [IODINE] Drug Allergy [facility] (1 source) CAT/FELINE PRODUCTS; Translations: [CAT/FELINE PRODUCTS] Propensity to adverse reactions to drug (disorder) 016 [facility] Medications Current Medications Medication Drug [...] by mouth every six hours as needed yfwyizhfkx-ggicdvvylyrkt-anoednbj (DAISY CET, ESGIC) 50-325-40 MG per tablet [...] 3 day(s), 15 tab(s), Refill(s) 0, [facility]/pharmacy #[id number], 165, cm, 07/13/23 11:34:00 [...] Start: 08-22-2020 take 1 capsule by mo [facility] once daily DULoxetine (CYMBALTA) 60 MG extended [...] Start: 06-01-2020 take 1 capsule by mo [facility] four times daily as needed for anxiety [...] administer the echo contrast. 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; Translations: [LONG-TERM CURRENT USE OF INSULIN] Onset: 04-16-2023 Episodic Other aftercare (1 source) Other 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) drug therapy; Translations: [OTH LONG-TERM CURRENT DRUG THERAPY] Onset: 04-16-2023 Episodic Other [...] 03-10-2023 03-20-2021 Episodic Other aftercare (1 source) 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) use of antithrombotics/anti platelets; Translations: [ADMINISTRATIVE MANAGER ANTITHROMBOT/ANTIPLA TLETS] Onset: 2022 Episodic Other aftercare (1 source) 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) use of aspirin; Translations: [ADMINISTRATIVE MANAGER CURRENT USE OF ASPIRIN] Onset: 2022 Episodic Other aftercare (1 source) 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) use of oral hypoglycemic drugs; Translations: [ADMINISTRATIVE MANAGER USE ORAL HYPOGLYCEMIC DX] Onset: 2022 Episodic [...] Name Value Interpretation Reference Range Facility 36on 03-21-2024 36 PT DAUGHTER STATES SHE IS ON VACATION, SHE FELICIA;L CALL THE OFFICE NEXT WEEK [facility] 36on 01-28-2024 36 I have been tying to call pt for about a week, no vm 01/27 [facility] Telephoneon 01-15-2024 Telephone [id number] Yeyo Avila 1955 F Date Provider Department Center 01/15/2024 KISHAN DONOHUE [facility] No family history on file [facility] Office Visiton 01-14-2024 Follow-up visit [id number] Yeyo Avila 1955 F Date Provider Department Center 01/14/2024 REBEKA SCHNEIDER [facility] No family history on file Level of Service:02269 [place] OFFICE/OUTPATIENT ESTABLISHED MOD MDM 30 MIN [facility] Lab Reportson 01-06-2024 Lab Reports [id number] #1.00TIFF Normal [facility] Lab Reports [id number] #1.00TIFF [facility] Lab Reports [id number] #1.00TIFF [facility] Lab Reportson 01-05-2024 Lab Reports [id number] #1.00TIFF [facility] Lab Reportson 01-02-2024 Lab Reports [id number] #1.00TIFF [facility] Lab Reports [id number] #1.00TIFF [facility] Consent for Procedure/Surger yon 12-30-2023 Consent for Procedure/Surgery [id number] 7#1.00TIFF Normal [facility] Consent for Treatmenton 02 Consent for Treatment [id number] #1.00TIFF [facility] IntraOperative Documentson 0 12-30-2023 IntraOperative Documents [id number] 9#1.00TIFF [facility] Main OR Intraoperative Recor don 12-30-2023 Main OR Intraoperative Record IntraOp Document Type FTURO Summary Primary Physician: Arturo DOLAN MD Finalized Date/Time: 12/30/23 11:54:47 Pt. Name: YEYO AVILA Allison Rosales/Sex: 1955 Female Med Rec #: [id number] Physician: Arturo DOLAN MD Financial #: [id number] Pt. Type: O Room/Bed: / Admit/Disch: 12/30/23 10:56:10 - Institution: Case Times FTURO Entry 1 Patient Times In Room 12/30/23 11:48:00 Out Room 12/30/23 11:59:00 Procedure Times Start 12/30/23 11:51:00 Stop 12/30/23 11:54:00 Anesthesia Times Last Modified By: Kevin QUEZADA, SALVADOR, Andie 12/30/23 11:54:21 Case Attendance FTURO Entry 1 Entry 2 Entry 3 Case Attendee Arturo DOLAN MD RN, CNOR, Parminder CRUZ, Ashlee Chaves Role Performed Surgeon - Primary Diesel Engine Fitter - Primary Scrub - Primary Time In 12/30/23 11:48:00 12/30/23 11:48:00 12/30/23 11:48:00 Time Out 12/30/23 11:59:00 12/30/23 11:59:00 12/30/23 11:59:00 Procedure CYSTOSCOPY LOCAL WITH CYSTOSCOPY LOCAL WITH CYSTOSCOPY LOCAL WITH STENT REMOVAL(Left) STENT REMOVAL(Left) STENT REMOVAL(Left) Comments Last Modified By: Kevin RN, CNOR, Kevin RN, FELICIAOR, Kevin QUEZADA, SALVADOR, Andie 12/30/23 Andie [...] Out Arturo DOLAN MD, Verified (If Participants SALVADOR Brown RN, Applicable) Parminder Chaves CST, Kimberly A Time [...] SALVADOR Brown RN, Ruthann 12/30/23 11:54 [facility] Main OR Preoperative Recordo n 12-30-2023 Main OR Preoperative Record Holding Area Document Type FTURO Summary Primary Physician: Arturo DOLAN MD Finalized Date/Time: 12/30/23 11:52:08 Pt. Name: MARGARITAYEYO/Sex: 1955 Female Med Rec #: [id number] Physician: Arturo DOLAN MD Financial #: [id number] Pt. Type: O Room/Bed: / Admit/Disch: 12/30/23 [...] Complaints of Pain: No Skin Integrity Intact, [place], Warm, & Dry Vitals - EU Blood Pressure 166/93 Pulse 87 bpm Respirations 18 br/min SPO2 97 % RN Reviewed Yes Last Modified By: SALVADOR Brown RN, Ruthann 12/30/23 11:52:06 Finalized By: SALVADOR Brown RN, Ruthann Document Signatures Signed By: SALVADOR Brown RN, Ruthann 12/30/23 11:52 [facility] Operative Reporton Operative Report Patient: YEYO [...] well and was subsequently discharged home. [facility] Comment on above: Result Comment: Elec tronically Signed By: Arturo DOLAN MD\.br\Date and Time Signed: 12/30/23 11:59 EST Lab Reportson 12-29-2023 Lab Reports [id number] #1.00TIFF [facility] Lab Reportson 12-19-2023 Lab Reports [id number] #1.00TIFF [facility] Lab Reports [id number] #1.00TIFF [facility] Operative Reporton Operative Report [id number] #1.00TIFF [facility] Lab Reportson 12-12-2023 Lab Reports [id number] #1.00TIFF [facility] Lab Reports [id number]# 1.00TIFF [facility] Consultation Noteon 12-04-19 Consultation Note [id number] #1.00TIFF [facility] Formson 12-04-2023 Forms [id number]# 1.00TIFF [facility] Documentationon 12-03-2023 Documentation [id number] Yeyo Avila S 1955 F Date Provider Department Center 12/03/2023 ALEXIA SUBRAMANIAN [facility]. No family history on file [facility] Consent for Procedure/Surger yon 11-28-2023 Consent for Procedure/Surgery [id number] 9#1.00TIFF [facility] RAD - MISCon 11-19-2023 RAD - MISC [id number] #1.00TIFF [facility] Consent for Procedure/Surger yon 11-13-2023 Consent for Procedure/Surgery [id number] #1.00TIFF [facility] ECG 12-Leadon 11-13-2023 ECG 12-Lead [id number] #1.00TIFF [facility] Lab Reportson 11-13-2023 Lab Reports [id number] #1.00TIFF [facility] Operative Reporton Operative Report [id number] #1.00TIFF [facility] RAD - MISCon 11-13-2023 RAD - MISC [id number] #1.00TIFF [facility] Ambulatory Visit Summaryon 1 01-13-2023 Ambulatory Visit Summary YEYO AVILA :1955 Visit Date:11/12/2023 Ambulatory Visit Instructions Your Diagnosis Kidney stones History of bladder cancer Renal cyst, left Tests Performed Urnls Dip Stick Auto w/o Microscopy POC 45834 Your Care Team Attending Physician - MAGDALENO PRADO, Arturo Bates Primary Care Physician - Robin Ponce MD [...] Where: [facility] [address], [place] [address]- Medications What How Much When Instructions Unchanged [...] Urnls Dip Stick Auto w/o Microscopy POC 72699 (11/12/2023) Bilirubin Urine Dipstick - Negative Blood Urine Dipstick - 2+ Moderate Glucose Urine Dipstick - Negative Ketones Urine Dipstick - Negative Leukocytes Urine Dipstick - Negative Nitrite Urine Dipstick - Negative Protein Urine Dipstick - Trace Specific [place] Urine Dipstick - >=1.030 Urine Appearance Urine [...] survey. We (more content not included)... [facility] Ambulatory Visit Summary YEYO AVILA :1955 Visit Date:11/12/2023 Ambulatory Visit Instructions Your Diagnosis Kidney stones History of bladder cancer Renal cyst, left Tests Performed Urnls Dip Stick Auto w/o Microscopy POC 39998 Your Care Team Attending Physician - MAGDALENO [...] Mcgill When: Where: [facility] [address] [place] [address]- Medications What How Much When Instructions Unchanged [...] Urnls Dip Stick Auto w/o Microscopy POC 37511 (11/12/2023) Bilirubin Urine Dipstick - Negative Blood Urine Dipstick - 2+ Moderate Glucose Urine Dipstick - Negative Ketones Urine Dipstick - Negative Leukocytes Urine Dipstick - Negative Nitrite Urine Dipstick - Negative Protein Urine Dipstick - Trace Specific [place] Urine Dipstick - >=1.030 Urine Appearance Urine [...] survey. We (more content not included)... [facility] ECG 12-Leadon 11-12-2023 ECG 12-Lead [id number] #1.00TIFF [facility] ED Note-Physicianon 11-12-20 ED Note-Physician [id number] #1.00TIFF [facility] Lab Reportson 11-12-2023 Lab Reports [id number] #1.00TIFF [facility] Patient Educationon 11-12-20 Patient Education Nephrology Laser [...] these instructions at home: Medicines ? Take uiyz-tzq-wddfzgx and prescription medicines only as told by [...] or treat constipation, such as: ? Take tcdb-pzg-vswhkoe or prescription medicines. ? Eat foods that [...] provider. Document Revised: 03/12/2023 Document Reviewed: 07/08/2022 [employer] Patient Education ? 2022 [employer]. Laser Therapy for Kidney Stones Laser therapy [...] including vitamins, herbs, eye drops, creams, and wcvw-rdn-qnnyxjl medicines. ? Any problems you or family [...] kidney st (more content not included)... [facility] RAD - CT Reporton 11-12-2023 RAD - CT Report [id number] #1.00TIFF [facility] Urology Office/Clinic Noteon 11-12-2023 Urology Office/Clinic Note Chief Complaint Pt is here for [facility] ER f/u HPI Staff Yeyo is a 68 y.o. female here for follow up to [facility] ER. Pt has seen [facility] in the past. Previous Dx: bladder cancer, kidney stones. S/P cystoscopy done on 02/04/22. MRI of abdomen done on 02/18/22 showed nonenhancing renal cyst superior pole left kidney, no renal mass. Pt presented to [facility] ER on 11/11/23 for left flank pain. CT a/p w/o contrast done on 11/11/23 showed 89y2d11cm stone lodged at the left renal pelvis, nonobstructing stones clustered at the lower pole left kidney measuring 0c3n3ai. BUN 16.0 & CRE 0.86 done on [...] of Present Illness Tests reviewed: reviewed UA, [facility] records, CT, MRI I have reviewed the previous health record information and history for this patient from Dr. Tan and [facility]. I have reviewed and verified the staff [...] Assessment/Plan Dr. Tan pt following up to [facility] ED visit on 11/11/23 due to L [...] She is currently taking Keflex bid from [facility]. Reviewed imaging with pt. Explained ureteral stents [...] #3, cysto/L stent placement for tomorrow at [facility]. The procedural risks, benefits, details, and treatment [...] 02/18/22 - (more content not included)... [facility] Comment on above: Result Comment: Elec tronically Signed By: Arturo DOLAN MD\.br\Date and Time Signed: 11/12/23 10:49 EST\.br\Electronically Co-Signed By: Francie Myers\.br\Date and Time Co-Signed: 11/12/23 10:44 EST Consent for Treatmenton 06-18 Consent for Treatment [id number] #1.00CD:127 [facility] Discharge Instructionson Discharge Instructions [id number] #1.00CD:127 [facility] ED Clinical Summaryon 2022 ED Clinical Summary [place] [id number] ED Clinical Summary Person Information Name: YEYO AVILA Aleah/[facility] Age: 67 Years : 1955 Sex: Female Language: Welsh PCP: Robin Ponce MD Marital Status: Visit [...] 07/13/2023 12:19:05 07/13/2023 12:19:05 ADDRESS: [address] [phone] PHYS DOC NOTES: MEDICAL INFORMATION: Prescriptions Given: New Medications [id number], [address], [place] [id number], [phone] 117 [phone] 6224 acetaminophen-oxycod one (Percocet 5 mg-325 mg oral [...] Follow up: With: Address: When: Robin Ponce [address] [place] [address], [address] [place] [phone] Business (1) In 3 days 07/16/2023 DIAGNOSIS: Shoulder pain [facility] ED Note-Physicianon 07-13-20 ED Note-Physician Basic [...] Joshikarissa In 3 days 07/16/2023 EDT [address] [place] [address]- Business (1) Additional Instructions: Patient Education Shoulder Pain Muscle Strain Attestation Patient seen and evaluated by the physician occupational therapist assistants. Attending physician was present in the emergency department and supervised care. This visit was performed by both the physician and an APC. I performed all aspects of the MDM as documented. This report was transcribed using voice recognition software. Every effort was made to ensure accuracy, however, inadvertently computerized guest house manager mistakes may be present. Appropriate healthcare PPE [...] Strawberries (Hives (more content not included)... [facility] Comment on above: Result Comment: Elec [...] strengthen the arm. General instructions ? Take jxeb-tqv-zgypkoq and prescription medicines only as told by [...] provider. Document Revised: 07/19/2022 Document Reviewed: 07/19/2022 [employer] Patient Education ? 2022 [employer] Muscle Strain A muscle strain is [...] bag. ? (more content not included)... [facility] ED Patient Summaryon 023 ED Patient Summary [address] [address] Patient Discharge Instructions Person Information Name: YEYO AVILA Age: 67 Years Arrival Date: 07/13/2023 11:21:03 Discharge Diagnosis: Shoulder pain Primary Care Physician: Robin Ponce MD Provider Information Primary Provider: Zaki Mñuoz M.D. Advanced Usability Strategist:Mathew Montana PA-C The exam and treatment you received in the Emergency Department were for an urgent problem and are not intended as complete care. It is important that you follow up with a doctor, nurse practitioner, or physician?s occupational therapist assistants for ongoing care. If your symptoms become worse or you do not improve as expected and you are unable to reach your usual health care provider, you should return to the Emergency Department. We are available 24 hours a day. YEYO AVILA has been given the following list of patient education materials, prescriptions and follow-up instructions: Follow-up Instructions: With: Address: When: Robin Ponce [address] [place] [address], [place] [address] Business (1) In 3 days 07/16/2023 In the event that this physician does not participate in your insurance network, please consult with your insurance company to find a nearby participating provider. Patient Education Materials: Shoulder Pain; Muscle Strain A MESSAGE TO ALL PATIENTS REGARDING OPIOIDS PRESCRIPTION OPIOIDS: WHAT YOU NEED TO KNOW Prescription opioids can be used to help relieve hyteaurw-hf-gqdkog pain and are often prescribed following a [...] be struggling with addiction, tell your health rn intensive care unit and ask for guidance or call [facility]S National Helpline at 8-655-748-MZLU. (more content not included)... [facility] Office Visiton 07-08-2023 Follow-up visit [id number] Yeyo Avila Allison 1955 Date Provider Department Center 07/08/2023 120-ALEXIA CLINE [facility] No family history on file Level of Service:11565 [place] OFFICE/OUTPATIENT ESTABLISHED MOD MDM 30-39 MIN Reason for Visit and Comments: Hospital Follow-up [832] - Chest pain [facility] Office Visiton 04-25-2023 Follow-up visit [id number] Yeyo Avila Allison 1955 Provider Department Center 04/25/2023 [id number] LOPEZ [facility] No family history on file Level of Service:93347 [place] OFFICE/OUTPATIENT ESTABLISHED LOW MDM 20-29 MIN [facility] POINT OF CARE GLUCOSEon -3 Glucose [Mass/Vol] 90 mg/dL Normal 74-106 [facility] Comment on above: Performed By: #### P OCGLUC #### [facility] [address] [place] [address] Dr. Win Ardon CARDIAC STRESS TESTon 2022 [...] reported nuclear myocardial perfusion imaging. Normal [facility] CBC AUTO DIFFon 04-01-2023 BASO # 0.1 103/ul Normal 0.0-0.[address] [facility] Comment on above: Performed By: #### C BC #### [facility] [address] [place] [address] [address] Win Ardon Basophils/100 WBC (Bld) 1.3 % Normal 0.2-2.[address] [facility] Comment on above: Performed By: #### C BC #### [facility] [address] [place] [address] [address] Win Ardon EO # 0.4 103/ul Normal 0.0-0.[address] [facility] Comment on above: Performed By: #### C BC #### [facility] [address] [place] [address] [address] Win Ardon Eosinophils/100 WBC (Bld) 4.1 % Normal 0.9-7.[address] [facility] Comment on above: Performed By: #### C BC #### [facility] [address] [place] [address] [address] Win Ardon Erythrocyte distribution width (RBC) [Ratio] 13.3 % Normal 11.0-15.[address] [facility] Comment on above: Performed By: #### C BC #### [facility] [address] [place] [address] [address] Win Ardon Hematocrit (Bld) [Volume fraction] 38.9 % Normal 36.0-48.0 [facility] Comment on above: Performed By: #### C BC #### [facility] [address] [place] [address] Dr. Win Ardon Hemoglobin (Bld) [Mass/Vol] 13.2 g/dL Normal 12.0-16.[address] [facility] Comment on above: Performed By: #### C BC #### [facility] [address] [place] [address] Dr. Win Ardon IG # 0.04 10e3/ul Critically high 0.00-0.03 [facility] Comment on above: Performed By: #### C BC #### [facility] [address] [place] [address] Dr. Win Ardon IG % 0.4 % Normal 0.0-0.5 [facility] Comment on above: Performed By: #### C BC #### [facility] [address] [place] [address] Dr. Win Ardon LYMPH # 3.2 103/ul Normal 1.2-3.8 [facility] Comment on above: Performed By: #### C BC #### [facility] [address] [place] [address] Dr. Win Ardon Lymphocytes/100 WBC (Bld) 34.7 % Normal 20.5-60.0 [facility] Comment on above: Performed By: #### C BC #### [facility] [address] [place] [address] Dr. Win Ardon MANUAL DIFF REQ NO Normal [facility] Comment on above: Performed By: #### C BC #### [facility] [address] [place] [address] Dr. Win Ardon MCH (RBC) [Entitic mass] 31.3 pg Normal 26.7-34.[address] [facility] Comment on above: Performed By: #### C BC #### [facility] [address] [place] [address] Dr. Win Ardon MCHC (RBC) [Mass/Vol] 33.9 g/dL Normal 29.9-35.[address] [facility] Comment on above: Performed By: #### C BC #### [facility] [address] [place] [address] Dr. Win Ardon MCV (RBC) [Entitic vol] 92.2 fL Normal 81.0-99.0 [facility] Comment on above: Performed By: #### C BC #### [facility] [address] [place] [address] Dr. Win Ardon MONO # 0.7 103/ul Normal 0.3-0.8 [facility] Comment on above: Performed By: #### C BC #### [facility] [address] [place] [address] Dr. Win Ardon Monocytes/100 WBC (Bld) 7.1 % Normal 1.7-12.0 [facility] Comment on above: Performed By: #### C BC #### [facility] [address] [place] [address] Dr. Win Ardon NEUT # 4.9 103/ul Normal 1.4-6.5 [facility] Comment on above: Performed By: #### C BC #### [facility] [address] [place] [address] Dr. Win Ardon Neutrophils/100 WBC (Bld) 52.4 % Normal 43.0-75.0 [facility] Comment on above: Performed By: #### C BC #### [facility] [address] [place] [address] Dr. Win Ardon Platelet mean volume (Bld) [Entitic vol] 10.6 fL Normal 9.5-13.[address] [facility] Comment on above: Performed By: #### C BC #### [facility] [address] [place] [address] Dr. Win Ardon PLT 231 103/ul Normal 150-[address] [facility] Comment on above: Performed By: #### C BC #### [facility] [address] [place] [address] Dr. Win Ardon RBC 4.22 106/ul Normal 4.20-5.[address] [facility] Comment on above: Performed By: #### C BC #### [facility] [address] [place] [address] Dr. Win Ardon WBC 9.3 103/ul Normal 4.0-11.0 [facility] Comment on above: Performed By: #### C BC #### [facility] [address] ABD/PELVIS WO CONon 04-01 CT ABD/PELVIS [...] LISSETT ALAN Date: 2023-04-01 20:[address] [facility] LACTATE/LACTIC ACIDon 2022 Lactate [Moles/Vol] 1.2 mmol/L Normal 0.4-2.0 [facility] Comment on above: Performed By: #### L ACT #### [facility] [address] [address] [address] Win Ardon NM STRESS/REST MULTIon 04-01 NM STRESS/REST MULTI Patient: YEYO AVILA Exam Date: 04/01/2023 : 1955 Gender:F Ordering : MRS. JONO LOPEZ HR COORDINATOR Admission #: [id number] Family : SHAIKH Aroldo HERNANDEZ . Order #: [id number] CLICK HERE TO VIEW EXAM RADIOLOGY REPORT [...] M.D. on 04/02/2023 at 11:[address] [facility] OCC BLD IMMUNO SCREENon 03-17 OCCULT BLOOD Positive Abnormal NEGATIVE [facility] Comment on above: Performed By: #### O BSCRN #### [facility] [address] [place], [place] [address] Dr. Win Ardon PROF 14(COMP METB)on 023 Albumin [Mass/Vol] 3.8 g/dL Normal 3.4-5.0 [facility] Comment on above: Performed By: #### C MP ####[facility] [address] [place], [place] [address]LpDr. Win Ardon Albumin/Globulin [Mass ratio] 1.1 {ratio} Normal [facility] Comment on above: Performed By: #### C MP ####[facility] [address] [address]Dr. Win Duglas ALP [Catalytic activity/Vol] 99 U/L Normal 46-116 [facility] Comment on above: Performed By: #### C MP ####[facility] [address] [address]Dr. Claudiaaida Ardon ALT [Catalytic activity/Vol] 17 U/L Normal 14-59 [facility] Comment on above: Performed By: #### C MP ####[facility] [address] [place], [place] [address]Dr. Win Ardon Anion gap [Moles/Vol] 13.4 mmol/L Normal [facility] Comment on above: Performed By: #### C MP ####[facility] [address] [place], [place] [address]Dr. Win Ardon AST [Catalytic activity/Vol] 11 U/L Critically low 15-37 [facility] Comment on above: Performed By: #### C MP ####[facility] [address] [place], [place] [address]Dr. Win Ardon Bilirubin [Mass/Vol] 0.6 mg/dL Normal 0.2-1.0 [facility] Comment on above: Performed By: #### C MP ####[facility] [address] [place], [place] [address]Dr. Win Ardon Calcium [Mass/Vol] 9.1 mg/dL Normal 8.5-10.1 [facility] Comment on above: Performed By: #### C MP ####[facility] [address] [place], [place] [address]Dr. Win Ardon Chloride [Moles/Vol] 106 mmol/L Normal 98-107 [facility] Comment on above: Performed By: #### C MP ####[facility] [address] [place], [place] [address]Dr. Win Ardon CO2 [Moles/Vol] 29.2 mmol/L Normal 21.0-32.0 [facility] Comment on above: Performed By: #### C MP ####[facility] [address] [id number]. Win Ardon Creatinine [Mass/Vol] 0.95 mg/dL Normal 0.55-1.02 [facility] Comment on above: Performed By: #### C MP ####[facility] [address] [id number]. Win Duglas EGFR-AF [place] >60 Normal >=60 [facility] Comment on above: Performed By: #### C MP ####[facility] [address] [id number]. Win Duglas EGFR-NON AF [place] 59 mL/min/1.73m2 Critically low >=60 [facility] Comment on above: Performed By: #### C MP ####[facility] [address] [phone]. Win Duglas Globulin (S) [Mass/Vol] 3.4 g/dL Normal [facility] Comment on above: Performed By: #### C MP ####[facility] [address] [phone]. Win Duglas Glucose [Mass/Vol] 162 mg/dL Critically high 74-106 [facility] Comment on above: Performed By: #### C MP ####[facility] [address] [phone]. Win Duglas Potassium [Moles/Vol] 3.6 mmol/L Normal 3.5-5.[address] [facility] Comment on above: Performed By: #### C MP ####[facility] [address] [phone]. Win Duglas Protein [Mass/Vol] 7.2 g/dL Normal 6.4-8.2 [facility] Comment on above: Performed By: #### C MP ####[facility] [address] [phone]. Claudiaaida Ardon Sodium [Moles/Vol] 145 mmol/L Normal 136-145 [facility] Comment on above: Performed By: #### C MP ####[facility] [address] [address]Dr. Win Ardon Urea nitrogen [Mass/Vol] 14.0 mg/dL Normal 7.0-18.0 [facility] Comment on above: Performed By: #### C MP ####[facility] [address] [place], [place] [address]Dr. Win Ardon Urea nitrogen/Creatinine [Mass ratio] 14.7 mg/mg Normal [facility] Comment on above: Performed By: #### C MP ####[facility] [address] [place], [place] [address]Dr. Win Ardon PROTIMEon 04-01-2023 INR Coag (PPP) [Relative time] 1.02 {INR} Normal [facility] Comment on above: Performed By: #### P TT, PT ####[facility] [address] [place], [place] [address]Dr. Win Ardon INR GUIDELINES SEE BELOW Normal [facility] Comment on above: Result Comment: MAGDA RED INR: 2.0 - 3.0 CONDITIONS NOT LISTED BELOW 2.5 - 3.5 FOR PROSTHETIC HEART VALVE REPLACEMENT 2.5 - 3.5 RECURRENT THROMBOSIS Performed By: #### P TT, PT ####[facility] [address] [place], [place] [address]Dr. Win Ardon PT Coag (PPP) [Time] 10.8 s Normal 9.0-11.6 [facility] Comment on above: Performed By: #### P TT, PT ####[facility] [address] [place], [place] [address]Dr. Win Ardon PTTon 04-01-2023 aPTT Coag (Bld) [Time] 26.5 s Normal 22.3-36.2 [facility] Comment on above: Performed By: #### P TT, PT ####[facility] [address] [place], [place] [address]Dr. Win Ardon TYPE AND SCREENon 04-01-2023 TYPE AND SCREEN Negative Normal [facility] Comment on above: Performed By: #### T NS ####[facility] [address] [id number]. Win Duglas CBC AUTO DIFFon 03-24-2023 BASO # 0.1 103/ul Normal 0.0-0.1 [facility] Comment on above: Performed By: #### C BC ####[facility] [address] [id number]. Claudiaaida Ardon Basophils/100 WBC (Bld) 1.0 % Normal 0.2-2.0 [facility] Comment on above: Performed By: #### C BC ####[facility] [address] [place], [place] [address]Dr. Claudiaaida Ardon EO # 0.3 103/ul Normal 0.0-0.7 [facility] Comment on above: Performed By: #### C BC ####[facility] [address] [place], [place] [address]Dr. Win Ardon Eosinophils/100 WBC (Bld) 3.3 % Normal 0.9-7.0 [facility] Comment on above: Performed By: #### C BC ####[facility] [address] [place], [place] [address]Dr. Win Duglas Erythrocyte distribution width (RBC) [Ratio] 13.2 % Normal 11.0-15.0 [facility] Comment on above: Performed By: #### C BC ####[facility] [address] [place], [place] [address]Dr. Win Duglas Hematocrit (Bld) [Volume fraction] 41.3 % Normal 36.0-48.[address] [facility] Comment on above: Performed By: #### C BC ####[facility] [address] [place], [place] [address]Dr. Win Duglas Hemoglobin (Bld) [Mass/Vol] 13.6 g/dL Normal 12.0-16.[address] [facility] Comment on above: Performed By: #### C BC ####[facility] [address] [place], [place] [address]Dr. Win Ardon IG # 0.04 10e3/ul Critically high 0.00-0.03 [facility] Comment on above: Performed By: #### C BC ####[facility] [address] [phone] Claudiaaida Ardon IG % 0.4 % Normal 0.0-0.5 [facility] Comment on above: Performed By: #### C BC ####[facility] [address] [phone] Ardon LYMPH # 2.2 103/ul Normal 1.2-3.8 [facility] Comment on above: Performed By: #### C BC ####[facility] [address] [address]DrOtilia Ardon Lymphocytes/100 WBC (Bld) 23.8 % Normal 20.5-60.0 [facility] Comment on above: Performed By: #### C BC ####[facility] [address] [place], [place] [address]DrOtilia Ardon MANUAL DIFF REQ NO Normal [facility] Comment on above: Performed By: #### C BC ####[facility] [address] [phone] Claudiaaida Ardon MCH (RBC) [Entitic mass] 30.6 pg Normal 26.7-34.0 [facility] Comment on above: Performed By: #### C BC ####[facility] [address] [phone] Claudiaaida Ardon MCHC (RBC) [Mass/Vol] 32.9 g/dL Normal 29.9-35.2 [facility] Comment on above: Performed By: #### C BC ####[facility] [address] [phone] Ardon MCV (RBC) [Entitic vol] 93.0 fL Normal 81.0-99.0 [facility] Comment on above: Performed By: #### C BC ####[facility] [address] [id number] Ardon MONO # 0.7 103/ul Normal 0.3-0.[address] [facility] Comment on above: Performed By: #### C BC ####[facility] [address] [phone]. Win Ardon Monocytes/100 WBC (Bld) 7.3 % Normal 1.7-12.0 [facility] Comment on above: Performed By: #### C BC ####[facility] [address] [id number]. Win Ardon NEUT # 5.8 103/ul Normal 1.4-6.5 [facility] Comment on above: Performed By: #### C BC ####[facility] [address] [id number]. Win Ardon Neutrophils/100 WBC (Bld) 64.2 % Normal 43.0-75.0 [facility] Comment on above: Performed By: #### C BC ####[facility] [address] [phone]. Win Ardon Platelet mean volume (Bld) [Entitic vol] 11.0 fL Normal 9.5-13.5 [facility] Comment on above: Performed By: #### C BC ####[facility] [address] [phone]. Win Ardon PLT 243 103/ul Normal 150-450 [facility] Comment on above: Performed By: #### C BC ####[facility] [address] [id number]. Win Ardon RBC 4.44 106/ul Normal 4.20-5.[address] [facility] Comment on above: Performed By: #### C BC ####[facility] [address] [id number]. Win Ardon WBC 9.1 103/ul Normal 4.0-11.[address] [facility] Comment on above: Performed By: #### C BC ####[facility] [address] [id number]. Win Ardon LIPID PROFILEon 03-24-2023 CHOL-HDL RATIO NORM SEE BELOW Normal [facility] Comment on above: Result Comment: 3.3 - 4.4 LOW RISK 4.4 - 7.1 AVERAGE RISK 7.1 - 11.0 MODERATE RISK >11.0 HIGH RISK Performed By: #### C MP, LIPID #### [facility] [address] [address] [address] Win Ardon Cholesterol [Mass/Vol] 99 mg/dL Normal <=200 [facility] Comment on above: Performed By: #### C MP, LIPID #### [facility] [address] [address] [address] Win Ardon Cholesterol in HDL [Mass/Vol] 34 mg/dL Critically low 40-60 [facility] Comment on above: Performed By: #### C MP, LIPID #### [facility] [address] [place] [address] Dr. Win Ardon Cholesterol in LDL [Mass/Vol] 35.8 mg/dL Normal [facility] Comment on above: Performed By: #### C MP, LIPID #### [facility] [address] [place] [address] Dr. Win Ardon Cholesterol.total/Chol esterol in HDL [Mass ratio] 2.9 {ratio} Normal [facility] Comment on above: Performed By: #### C MP, LIPID #### [facility] [address] [place] [address] Dr. Win Ardon HDL NORMAL > or = 60 mg/dl - LOW CARDIOVASCULAR RISK <40 mg/dl - HIGH CARDIOVASCULAR RISK Normal [facility] Comment on above: Performed By: #### C MP, LIPID #### [facility] [address] [place] [address] Dr. Win Ardon LDL CALC NORMAL SEE BELOW Normal [facility] Comment on above: Result Comment: <100 mg/dl OPTIMAL 100 - 129 mg/dl NEAR OR ABOVE OPTIMAL 130 - 159 mg/dl BORDERLINE HIGH 160 - 189 mg/dl HIGH >190 mg/dl VERY HIGH Performed By: #### C MP, LIPID #### [facility] [address] [place] [address] Dr. Win Ardon Triglyceride [Mass/Vol] 146 mg/dL Normal <=150 [facility] Comment on above: Performed By: #### C MP, LIPID #### [facility] [address] [address] [address] Win Ardon VLDL CALC 29.2 mg/dL Normal [facility] Comment on above: Performed By: #### C MP, LIPID #### [facility] [address] [address] [address] Win Ardon PROF 14(COMP METB)on 023 Albumin [Mass/Vol] 3.9 g/dL Normal 3.4-5.0 [facility] Comment on above: Performed By: #### C MP, LIPID #### [facility] [address] [address] [address] Win Ardon Albumin/Globulin [Mass ratio] 1.1 {ratio} Normal [facility] Comment on above: Performed By: #### C MP, LIPID #### [facility] [address] [place] [address] Dr. Win Ardon ALP [Catalytic activity/Vol] 96 U/L Normal 46-116 [facility] Comment on above: Performed By: #### C MP, LIPID #### [facility] [address] [address] [address] Win Ardon ALT [Catalytic activity/Vol] 15 U/L Normal 14-59 [facility] Comment on above: Performed By: #### C MP, LIPID #### [facility] [address] [place] [address] Dr. Win Ardon Anion gap [Moles/Vol] 12.1 mmol/L Normal [facility] Comment on above: Performed By: #### C MP, LIPID #### [facility] [address] [place] [address] Dr. Win Ardon AST [Catalytic activity/Vol] 10 U/L Critically low 15-37 [facility] Comment on above: Performed By: #### C MP, LIPID #### [facility] [address] [address] [address] Win Ardon Bilirubin [Mass/Vol] 0.8 mg/dL Normal 0.2-1.0 [facility] Comment on above: Performed By: #### C MP, LIPID #### [facility] [address] [address] [address] Win Ardon Calcium [Mass/Vol] 9.1 mg/dL Normal 8.5-10.1 [facility] Comment on above: Performed By: #### C MP, LIPID #### [facility] [address] [address] [address] Win Ardon Chloride [Moles/Vol] 102 mmol/L Normal 98-107 [facility] Comment on above: Performed By: #### C MP, LIPID #### [facility] [address] [address] [address] Win Ardon CO2 [Moles/Vol] 26.0 mmol/L Normal 21.0-32.0 [facility] Comment on above: Performed By: #### C MP, LIPID #### [facility] [address] [address] [address] Win Ardon Creatinine [Mass/Vol] 0.95 mg/dL Normal 0.55-1.02 [facility] Comment on above: Performed By: #### C MP, LIPID #### [facility] [address] [address] [address] Win Adron EGFR-AF [place] >60 Normal >=60 [facility] Comment on above: Performed By: #### C MP, LIPID #### [facility] [address] [address] [address] Win Ardon EGFR-NON AF [place] 59 mL/min/1.73m2 Critically low >=60 [facility] Comment on above: Performed By: #### C MP, LIPID #### [facility] [address] [address] [address] Win Ardon Globulin (S) [Mass/Vol] 3.7 g/dL Normal [facility] Comment on above: Performed By: #### C MP, LIPID #### [facility] [address] [address] [address] Win Ardon Glucose [Mass/Vol] 336 mg/dL Critically high 74-106 [facility] Comment on above: Performed By: #### C MP, LIPID #### [facility] [address] [address] [address] Win Ardon Potassium [Moles/Vol] 4.1 mmol/L Normal 3.5-5.1 [facility] Comment on above: Performed By: #### C MP, LIPID #### [facility] [address] [address] [address] Win Ardon Protein [Mass/Vol] 7.6 g/dL Normal 6.4-8.2 [facility] Comment on above: Performed By: #### C MP, LIPID #### [facility] [address] [address] [address] Win Ardon Sodium [Moles/Vol] 136 mmol/L Normal 136-145 [facility] Comment on above: Performed By: #### C MP, LIPID #### [facility] [address] [address] [address] Win Ardon Urea nitrogen [Mass/Vol] 10.0 mg/dL Normal 7.0-18.0 [facility] Comment on above: Performed By: #### C MP, LIPID #### [facility] [address] [address] [address] Win Ardon Urea nitrogen/Creatinine [Mass ratio] 10.5 mg/mg Normal [facility] Comment on above: Performed By: #### C MP, LIPID #### [facility] [address] [address] [address] Win Ardon Office Visiton 03-10-2023 Follow-up visit [id number] Yeyo Avila 1955 F Date Provider Department Center 03/10/2023 [id number] LOPEZ CARD [facility] No family history on file Level of Service:87309 [place] OFFICE/OUTPATIENT ESTABLISHED MOD MDM 30-39 MIN Reason for Visit and Comments: Coronary Artery Disease [187] Hypertension [398555] aneurysm of thoracic aorta [Other] Normal [facility] CHEMISTRYOrdered By: Lab ROP User on 02-24-2023 Glucose [Mass/Vol] 144 mg/dL High 55 - 99 mg/dL [facility] [place] Subsection Comment on above: Result Comment: Edilia arleth Meter POC Device SN [id number] Invalid Interpretation Code [facility] POC Subsection POC User ID [id number] Invalid Interpretation Code [facility] POC Subsection POC Username KRISTI MADDEN Invalid Interpretation Code [facility] POC Subsection Glucose [Mass/Vol] 76 mg/dL Normal 55 - 99 mg/dL [facility] POC Subsection Comment on above: Result Comment: Edilia arleth Meter POC Device SN [id number] Invalid Interpretation Code [facility] POC Subsection POC User ID [id number] Invalid Interpretation Code [facility] POC Subsection POC [...] 1.2 mg/dL Normal 0.5 - 1.3 mg/dL [facility] Remisol GFR/1.73 sq M.predicted among blacks MDRD (S/P/Bld) [Vol rate/Area] 55 mL/min/1.73 m2 Low >=59mL/min/1 .73 m2 [facility] Chem S GFR/1.73 sq M.predicted among non-blacks MDRD (S/P/Bld) [Vol rate/Area] 45 mL/min/1.73 m2 Low >=59mL/min/1 .73 m2 [facility] Chem S Glucose [Mass/Vol] 102 mg/dL Normal [...] Interpretation Code Negative [facility] UA Auto SS [place].plasma/[place] .RBC (Bld) [Mass ratio] 21-30 /HPF Invalid [...] [facility] UA Auto SS Urobilinogen Qn (U) 0.4749942 {John'U}/dL Normal 0.0 - 1.0 EU/dL [facility] UA Auto SS WBC Auto Ql (U) Trace *ABN* (02/24/23 2:06 AM) Invalid Interpretation Code Negative [facility] UA Auto SS WBC casts LM.LPF (Urine sed) [#/Area] 4-10 (02/24/23 2:06 AM) Normal [facility] UA Auto SS WBC LM.HPF (Urine sed) [#/Area] 0-5 /HPF Normal 0-5/HPF [facility] UA Auto SS Covid-19 PCR ([facility])on 01-17 SARS-CoV-2 (COVID-19) RNA OSVALDO+probe Ql (Unsp spec) Not detected Normal NOT DETECTED [facility] Comment on above: Result Comment: This test is not yet approved or cleared by the [place] FDA. When there are no FDA-approved or cleared tests available, and other criteria are met, FDA can make tests available under an emergency access mechanism called an Emergency Use Authorization (EUA). The EUA for this test is supported by the [place] of Health and Human Service's (HHS's) declaration [...] consistent with SARS-CoV-2. Performed By: #### [facility] #### [facility] [address] [place] [address] Dr. Win Ardon SYMPTOMATIC COVID-19 ANTIGEN on 02-14-2023 EUA Statement SEE BELOW Normal [facility] Comment on above: Result Comment: This test [...] sooner. Performed By: #### C VDAGS #### [facility] [address] [address] [address] Win Ardon SARS-CoV-2 (COVID-19) RNA OSVALDO+probe Ql (Unsp spec) Negative Normal NEGATIVE [facility] Comment on above: Performed By: #### C VDAGS #### [facility] [address] [place], [place] [address] Dr. Win Ardon XR KNEE RT 4V [...] MIKAEL GUZMAN Date: 2022-10-05 19:[address] [facility] Creatinine (Bld) [Mass/Vol]O rdered By: Ese Tan on 02-18-2022 Creatinine [Mass/Vol] 0.8 mg/dL 0.6-1.3 [facility] Comment on above: ER/ESD physician is notified/shown all ISTAT results.Critical values may be confirmed by laboratory testing ifdeemed necessary by ER attending doctor. ISTAT XRay CREon 02-18-2022 Creatinine [Mass/Vol] 0.8 mg/dL Normal 0.6-1.3 [facility] Comment on above: Result Comment: ER/E SD physician is notified/shown all ISTAT results. Critical values may be confirmed by laboratory testing if deemed necessary by ER attending doctor. Performed By: #### B HR COORDINATOR, PTT, CKMB, LIPASE, CK, TROP, CBC, PT, CMP #### [facility] [address] [place] [address] ISTAT GFR ( > 60 Normal [facility] Comment on above: Result Comment: GFR estimated reference range: According to KDOQI guidelines, <60 ml/min/1.73m2 is sufficient to diagnose a patient with chronic kidney disease. PERFORMED BY: [place] [address] PATHOLOGIST COMBUSTION ENGINEER WALDO WANG M.D. Performed By: #### B HR COORDINATOR, PTT, CKMB, LIPASE, CK, TROP, CBC, PT, CMP #### [facility] [address] [place] [address] ISTAT GFR (Non- Am > 60 Normal [facility] Comment on above: Performed By: #### B HR COORDINATOR, PTT, CKMB, LIPASE, CK, TROP, CBC, PT, CMP #### [facility] [address] [place] [address] MR abdomen wo/w conon 2021 MR abdomen wo/w con [facility] [place] [address] MRI Report Signed Patient: Yeyo Avila MR#: [id number] : 1955 Acct:[id number] Age/Sex: 66 / F ADM Date: 02/18/22 Loc: MR Room: Type: [facility] Attending Dr: Ese Tan MD Ordering [...] Warren Jr., D.OOtilia02/18/2022 4:02 PM Dictation Location: [place] [address] Transcribed By: [facility] 02/18/22 1602 Dictated By: Jaiv Warren Jr, DO 02/18/22 1556 Signed By: 02/18/22 1602 Normal [facility] No Panel InformationOrdered By: Ese Tan on 02-18-2022 POC Estimated GFR > 60 [facility] Comment on above: GFR estimated refere nce range: According to KDOQI guidelines, <60 ml/min/1.73m2 is sufficient to diagnose a patient with chronic kidney disease. POC Estimated GFR Non- Amer > 60 [facility] Cardiovascular Lab Reporton 03-22-2021 Cardiovascular Lab Report [facility] Patient Name: Margarita [facility] Saulo Cooper MR #: [id number] Department of Physician: Radha Carter M.D. Division of Service Date: 03/21/2021 Cardiology Birthdate: 1955 Adult Cardiovascular Room #: [place] [address] Cardiovascular Laboratory Report FINAL IMPRESSIONS: 1. 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 2. Patent stent in the second diagonal branch of the left anterior descending coronary artery with [id number] in-stent restenosis. 3. Otherwise, nonobstructive coronary arteries [...] bilateral selective coronary angiography, placement of a 6-Honduran MynxGrip closure device. METHODS: After risks, benefits, and alternatives were explained, written informed consent was obtained. The patient was prepped and draped in the usual sterile fashion over the right groin. Using 1% lidocaine solution, local infiltration anesthesia was achieved. Using a modified Seldinger technique, a micropuncture kit, an ultrasound guidance access to the right common femoral vein and artery was obtained. A 6-Honduran x 11 cm sheath were placed in each. Limited femoral angiography was performed via the micropuncture kit prior to upsizing through the 6-Honduran sheath in the artery. A Cazares catheter [...] the procedure. All catheters were removed. A 6-Honduran MynxGrip closure device was deployed per protocol [...] Sergio/Rebeka Pardo M.D. Date Trans: 03/22/2021 05:11 A/yoel [id number] cc: Alexia Cline, MSN, CUSTOMER ENERGY SPECIALIST-C Department Of Surgery [address] [facility] [address] Robin Ponce M.D. [address] [place] [address] [facility] CT angio abdomen pelvison CT angio abdomen pelvis [facility] Main [address] [address] [address] Scan Report Signed Patient: Yeyo Avila MR#: [id number] : 1955 Acct:[id number] Age/Sex: 65 / F ADM Date: 03/19/21 Loc: ER Room: Type: [facility] ER Attending Dr: Ordering Provider: Ismael Santillan DO Date of Service: 03/19/21 CT/CT angio chest: r/o dissection ([id number]) CT/CT angio abdomen pelvis: R/O DISSECTION Copies [...] Martinez Jr., M.D.03/20/2021 8:52 AM Dictation Location: [place] [address] Transcribed By: [facility] 03/20/21851 Dictated By: Gavin Martinez Jr, MD 03/20/2141 Signed By: 03/20/2152 Normal [facility] Dipstick and Microscopicon 0 03-20-2021 Appearance (U) Clear Normal Clear [facility] Comment on above: Order Comment: Name Collection Type:: Clean-Voided Midstream Performed By: #### A DDONUAPLUS #### [facility] [address] [place] [address] [place] Bacteria,Urine None Seen Normal None Seen [facility] Comment on above: Order Comment: Name Collection Type:: Clean-Voided Midstream Performed By: #### A DDONUAPLUS #### [facility] [address] [place] [address] [place] Bilirubin,Urine Negative Normal Negative [facility] Comment on above: Order Comment: Name Collection Type:: Clean-Voided Midstream Performed By: #### A DDONUAPLUS #### [facility] [address] [place] [address] [place] Color (U) Yellow Normal Yellow [facility] Comment on above: Order Comment: Name Collection Type:: Clean-Voided Midstream Performed By: #### A DDONUAPLUS #### [facility] [address] [place] [address] [place] Glucose Ql (U) 500 mg/dL High Normal [facility] Comment on above: Order Comment: Name Collection Type:: Clean-Voided Midstream Performed By: #### A DDONUAPLUS #### [facility] [address] [place] [address] [place] Hyaline Casts,Urine 0-8 Normal 0-8 [facility] Comment on above: Order Comment: Name Collection Type:: Clean-Voided Midstream Result Comment: PERF ORMED BY: [place] [address] PATHOLOGIST COMBUSTION ENGINEER WALDO WANG M.D. Performed By: #### A DDONUAPLUS #### [facility] [address] [place] [address] Ketones Ql (U) Trace High Negative [facility] Comment on above: Order Comment: Name Collection Type:: Clean-Voided Midstream Performed By: #### A DDONUAPLUS #### [address] Leukocyte esterase Test strip Ql (U) Negative Normal Negative [facility] Comment on above: Order Comment: Name Collection Type:: Clean-Voided Midstream Performed By: #### A DDONUAPLUS #### [place] [address] [place] Nitrite,Urine Negative Normal Negative [facility] Comment on above: Order Comment: Name Collection Type:: Clean-Voided Midstream Performed By: #### A DDONUAPLUS #### [place] [address] [place] Occult Blood,Urine Negative Normal Negative [facility] Comment on above: Order Comment: Name Collection Type:: Clean-Voided Midstream Performed By: #### A DDONUAPLUS #### [place] [address] [place] pH (U) 6.0 [pH] Normal 5.0-9.0 [facility] Comment on above: Order Comment: Name Collection Type:: Clean-Voided Midstream Performed By: #### A DDONUAPLUS #### [place] [address] [place] Protein,Urine Trace High Negative [facility] Comment on above: Order Comment: Name Collection Type:: Clean-Voided Midstream Performed By: #### A DDONUAPLUS #### [facility] [address] [place] [address] [place] RBC,Urine 1-2 Normal 0-4 [facility] Comment on above: Order Comment: Name Collection Type:: Clean-Voided Midstream Performed By: #### A DDONUAPLUS #### [facility] [address] [place] [address] [place] Renal Epithelial Cells,Urine None Seen Normal 0-1 [facility] Comment on above: Order Comment: Name Collection Type:: Clean-Voided Midstream Performed By: #### A DDONUAPLUS #### [address] Specificy [place],Urine > 1.050 High 1.001-1.030 [facility] Comment on above: Order Comment: Name Collection Type:: Clean-Voided Midstream Performed By: #### A DDONUAPLUS #### [address] Squamous Epithelial Cell,Urine 3-4 High 0-2 [facility] Comment on above: Order Comment: Name Collection Type:: Clean-Voided Midstream Performed By: #### A DDONUAPLUS #### [address] Urobilinogen,Urine Normal Normal Normal [facility] Comment on above: Order Comment: Name Collection Type:: Clean-Voided Midstream Performed By: #### A DDONUAPLUS #### [address] WBC,Urine 1-2 Normal 0-4 [facility] Comment on above: Order Comment: Name Collection Type:: Clean-Voided Midstream Performed By: #### A DDONUAPLUS #### [address] ECG 12 lead ECGon 03-20-2021 ECG 12 lead ECG [facility] [place] [address] Electrocardiograph Report Signed Patient: Yeyo Avila MR#: [id number] : 1955 Acct:[id number] Age/Sex: 65 / F ADM Date: 03/19/21 Loc: ER Room: Type: [facility] ER Attending Dr: Ordering Provider: Ismael Santillan [...] Cooper MD 03/19/212224 Signed By: 03/21/21 0905 [facility] XR chest 2V*on 03-20-2021 XR chest 2V* [facility] Main [place] [address] [place] [address] XRay Report Signed Patient: Yeyo Avila MR#: [id number] : 1955 Acct:[id number] Age/Sex: 65 / F ADM Date: 03/19/21 Loc: ER Room: Type: [facility] ER Attending Dr: Ordering Provider: Ismael Santillan [...] Martinez Jr., M.D.03/20/2021 8:53 AM Dictation Location: [place] [address] Transcribed By: [facility] 03/20/21 0853 Dictated By: Gavin Martinez Jr, MD 03/20/21 0852 Signed By: 03/20/21 0853 [facility] B-Type Natriuretic Peptideon 03-19-2021 Natriuretic peptide B (Bld) [Mass/Vol] 30.0 pg/mL Normal 5-100 [facility] Comment on above: Result Comment: PERF ORMED BY: [place] [address] PATHOLOGIST COMBUSTION ENGINEER WALDO WANG M.D. Performed By: #### B HR COORDINATOR, PTT, CKMB, LIPASE, CK, TROP, CBC, PT, CMP #### [address] Complete Blood Count Auto Di ffon 03-19-2021 Basophils (Bld) [#/Vol] 0.2 10*3/uL Normal 0.0-0.2 [facility] Comment on above: Result Comment: PERF ORMED BY: [place] [address] PATHOLOGIST COMBUSTION ENGINEER WALDO WANG M.D. Performed By: #### B HR COORDINATOR, PTT, CKMB, LIPASE, CK, TROP, CBC, PT, CMP #### [address] Basophils/100 WBC (Bld) 0.9 % Normal . [facility] Comment on above: Performed By: #### B HR COORDINATOR, PTT, CKMB, LIPASE, CK, TROP, CBC, PT, CMP #### [address] Eosinophils (Bld) [#/Vol] 0.2 10*3/uL Normal 0.0-0.45 [facility] Comment on above: Performed By: #### B HR COORDINATOR, PTT, CKMB, LIPASE, CK, TROP, CBC, PT, CMP #### [address] Eosinophils/100 WBC (Bld) 1.1 % Normal . [facility] Comment on above: Performed By: #### B HR COORDINATOR, PTT, CKMB, LIPASE, CK, TROP, CBC, PT, CMP #### [address] Erythrocyte distribution width (RBC) [Ratio] 13.7 % Normal 11.9-15.3 [facility] Comment on above: Performed By: #### B HR COORDINATOR, PTT, CKMB, LIPASE, CK, TROP, CBC, PT, CMP #### [address] Hematocrit (Bld) [Volume fraction] 43.7 % Normal 34.0-46.4 [facility] Comment on above: Performed By: #### B HR COORDINATOR, PTT, CKMB, LIPASE, CK, TROP, CBC, PT, CMP #### [address] Hemoglobin (Bld) [Mass/Vol] 14.8 g/dL Normal 11.8-15.4 [facility] Comment on above: Performed By: #### B HR COORDINATOR, PTT, CKMB, LIPASE, CK, TROP, CBC, PT, CMP #### [address] Lymphocytes (Bld) [#/Vol] 4.2 10*3/uL Normal 1.00-4.8 [facility] Comment on above: Performed By: #### B HR COORDINATOR, PTT, CKMB, LIPASE, CK, TROP, CBC, PT, CMP #### [address] Lymphocytes/100 WBC (Bld) 23.0 % Normal . [facility] Comment on above: Performed By: #### B HR COORDINATOR, PTT, CKMB, LIPASE, CK, TROP, CBC, PT, CMP #### [address] MCH (RBC) [Entitic mass] 29.8 pg Normal 24.7-34.3 [facility] Comment on above: Performed By: #### B HR COORDINATOR, PTT, CKMB, LIPASE, CK, TROP, CBC, PT, CMP #### [address] MCV (RBC) [Entitic vol] 87.7 fL Normal 80-100 [facility] Comment on above: Performed By: #### B HR COORDINATOR, PTT, CKMB, LIPASE, CK, TROP, CBC, PT, CMP #### [address] Mean Corpuscular HGB Conc 33.9 g/dL Normal 32.0-35.0 [facility] Comment on above: Performed By: #### B HR COORDINATOR, PTT, CKMB, LIPASE, CK, TROP, CBC, PT, CMP #### [facility] [address] Monocytes (Bld) [#/Vol] 1.1 10*3/uL High 0.0-0.8 [facility] Comment on above: Performed By: #### B HR COORDINATOR, PTT, CKMB, LIPASE, CK, TROP, CBC, PT, CMP #### [address] Monocytes/100 WBC (Bld) 6.1 % Normal . [facility] Comment on above: Performed By: #### B HR COORDINATOR, PTT, CKMB, LIPASE, CK, TROP, CBC, PT, CMP #### [address] Neutrophils (Bld) [#/Vol] 12.4 10*3/uL High 1.8-7.7 [facility] Comment on above: Performed By: #### B HR COORDINATOR, PTT, CKMB, LIPASE, CK, TROP, CBC, PT, CMP #### [address] Neutrophils/100 WBC (Bld) 68.9 % Normal . [facility] Comment on above: Performed By: #### B HR COORDINATOR, PTT, CKMB, LIPASE, CK, TROP, CBC, PT, CMP #### [address] Nucleated RBC/100 WBC (Bld) [Ratio] 0.2 % Normal 0-0.5 [facility] Comment on above: Performed By: #### B HR COORDINATOR, PTT, CKMB, LIPASE, CK, TROP, CBC, PT, CMP #### [address] Platelet mean volume (Bld) [Entitic vol] 9.2 fL Normal 6.3-10.7 [facility] Comment on above: Performed By: #### B HR COORDINATOR, PTT, CKMB, LIPASE, CK, TROP, CBC, PT, CMP #### [address] Platelets (Bld) [#/Vol] 340 10*3/uL Normal 150-450 [facility] Comment on above: Performed By: #### B HR COORDINATOR, PTT, CKMB, LIPASE, CK, TROP, CBC, PT, CMP #### [address] RBC (Bld) [#/Vol] 4.98 10*6/uL Normal 3.60-5.00 [facility] Comment on above: Performed By: #### B HR COORDINATOR, PTT, CKMB, LIPASE, CK, TROP, CBC, PT, CMP #### [address] WBC (Bld) [#/Vol] 18.0 10*3/uL High 4.5-11.0 [facility] Comment on above: Performed By: #### B HR COORDINATOR, PTT, CKMB, LIPASE, CK, TROP, CBC, PT, CMP #### [address] Comprehensive Metabolic Pane talia 03-19-2021 Albumin [Mass/Vol] 4.7 g/dL Normal 3.2-5.5 [facility] Comment on above: Performed By: #### B HR COORDINATOR, PTT, CKMB, LIPASE, CK, TROP, CBC, PT, CMP #### [address] Albumin/Globulin [Mass ratio] 1.4 {ratio} Normal [facility] Comment on above: Performed By: #### B HR COORDINATOR, PTT, CKMB, LIPASE, CK, TROP, CBC, PT, CMP #### [address] ALP [Catalytic activity/Vol] 83 U/L Normal 32-92 [facility] Comment on above: Performed By: #### B HR COORDINATOR, PTT, CKMB, LIPASE, CK, TROP, CBC, PT, CMP #### [address] ALT [Catalytic activity/Vol] 15 U/L Normal 10-60 [facility] Comment on above: Performed By: #### B HR COORDINATOR, PTT, CKMB, LIPASE, CK, TROP, CBC, PT, CMP #### [facility] [address] AST [Catalytic activity/Vol] 15 U/L Normal 10-42 [facility] Comment on above: Performed By: #### B HR COORDINATOR, PTT, CKMB, LIPASE, CK, TROP, CBC, PT, CMP #### [address] Bilirubin [Mass/Vol] 1.6 mg/dL High 0.3-1.2 [facility] Comment on above: Result Comment: Samp les from patients who have taken Naproxen have shown spurious elevation in Total Bilirubin levels. A metabolite of Naproxen, O-desmethylnaproxen, has been shown to interfere with the Mameik-Zohraf method for measuring Total Bilirubin. Performed By: #### B HR COORDINATOR, PTT, CKMB, LIPASE, CK, TROP, CBC, PT, CMP #### [address] Calcium [Mass/Vol] 10.1 mg/dL Normal 8.2-10.2 [facility] Comment on above: Performed By: #### B HR COORDINATOR, PTT, CKMB, LIPASE, CK, TROP, CBC, PT, CMP #### [place] [address] [place] Chloride [Moles/Vol] 99 mmol/L Normal 95-114 [facility] Comment on above: Performed By: #### B HR COORDINATOR, PTT, CKMB, LIPASE, CK, TROP, CBC, PT, CMP #### [address] CO2 [Moles/Vol] 23.1 mmol/L Normal 22.0-30.0 [facility] Comment on above: Performed By: #### B HR COORDINATOR, PTT, CKMB, LIPASE, CK, TROP, CBC, PT, CMP #### [address] [place] [address] [place] Creatinine [Mass/Vol] 1.07 mg/dL High 0.44-1.03 [facility] Comment on above: Performed By: #### B HR COORDINATOR, PTT, CKMB, LIPASE, CK, TROP, CBC, PT, CMP #### [facility] [address] Creatinine Clr Calc Pharmacy 64.26 [facility] Comment on above: Performed By: #### B HR COORDINATOR, PTT, CKMB, LIPASE, CK, TROP, CBC, PT, CMP #### [address] Estimated GFR ( [place] > 60 [facility] Comment on above: Result Comment: GFR estimated reference range: According to KDOQI guidelines, <60 ml/min/1.73m2 is sufficient to diagnose a patient with chronic kidney disease. Performed By: #### B HR COORDINATOR, PTT, CKMB, LIPASE, CK, TROP, CBC, PT, CMP #### [address] Estimated GFR (Non- Am 52 [facility] Comment on above: Performed By: #### B HR COORDINATOR, PTT, CKMB, LIPASE, CK, TROP, CBC, PT, CMP #### [address] Globulin (S) [Mass/Vol] 3.3 g/dL [facility] Comment on above: Performed By: #### B HR COORDINATOR, PTT, CKMB, LIPASE, CK, TROP, CBC, PT, CMP #### [address] Glucose [Mass/Vol] 264 mg/dL High 70-100 [facility] Comment on above: Result Comment: [place] Glucose Reference Range is dependent on time and content of last meal. Glucose of more than 200 mg/dL in a nonstressed, ambulatory subject supports the diagnosis of Diabetes Mellitus. ADA recommended reference range Performed By: #### B HR COORDINATOR, PTT, CKMB, LIPASE, CK, TROP, CBC, PT, CMP #### [address] Potassium [Moles/Vol] 3.8 mmol/L Normal 3.5-5.1 [facility] Comment on above: Performed By: #### B HR COORDINATOR, PTT, CKMB, LIPASE, CK, TROP, CBC, PT, CMP #### [facility] [address] Protein [Mass/Vol] 8.0 g/dL High 6.1-7.9 [facility] Comment on above: Performed By: #### B HR COORDINATOR, PTT, CKMB, LIPASE, CK, TROP, CBC, PT, CMP #### [facility] [address] Sodium [Moles/Vol] 137 mmol/L Normal 136-146 [facility] Comment on above: Performed By: #### B HR COORDINATOR, PTT, CKMB, LIPASE, CK, TROP, CBC, PT, CMP #### [address] Urea nitrogen [Mass/Vol] 29 mg/dL High 9-23 [facility] Comment on above: Performed By: #### B HR COORDINATOR, PTT, CKMB, LIPASE, CK, TROP, CBC, PT, CMP #### [address] Creatine Kinaseon 03-19-2021 CK [Catalytic activity/Vol] 42 U/L Normal 22-269 [facility] Comment on above: Performed By: #### B HR COORDINATOR, PTT, CKMB, LIPASE, CK, TROP, CBC, PT, CMP #### [address] Creatinine Kinase MBon 03-19 CK.MB [Mass/Vol] 1.3 ng/mL Normal 0.6-6.3 [facility] Comment on above: Performed By: #### B HR COORDINATOR, PTT, CKMB, LIPASE, CK, TROP, CBC, PT, CMP #### [address] CKMB Relative Index 3.0 % High 0.00-2.50 [facility] Comment on above: Performed By: #### B HR COORDINATOR, PTT, CKMB, LIPASE, CK, TROP, CBC, PT, CMP #### [facility] [address] [place] [address] ECG 12 lead ECGon 03-19-2021 ECG 12 lead ECG [facility] [place] [address] [place] [address] Electrocardiograph Report Signed Patient: Yeyo Avila MR#: [id number] : 1955 Acct:[id number] Age/Sex: 65 / F ADM Date: 03/19/21 Loc: ER Room: Type: [facility] ER Attending Dr: Ordering Provider: Ismael Santillan [...] MD 03/19/212112 Signed By: 03/21/21 0905 Normal [facility] Lipaseon 03-19-2021 Lipase [Catalytic activity/Vol] 21.0 U/L Low 22-51 [facility] Comment on above: Result Comment: PERF ORMED BY: [place] [address] PATHOLOGIST COMBUSTION ENGINEER WALDO WANG M.D. Performed By: #### B HR COORDINATOR, PTT, CKMB, LIPASE, CK, TROP, CBC, PT, CMP #### [address] Partial Thromboplastin Timeo n 03-19-2021 aPTT Coag (Bld) [Time] 26.1 s Normal 25.1-36.5 [facility] Comment on above: Result Comment: PERF ORMED BY: [address] [place] [address] PATHOLOGIST COMBUSTION ENGINEER WALDO WANG M.D. Performed By: #### B HR COORDINATOR, PTT, CKMB, LIPASE, CK, TROP, CBC, PT, CMP #### [facility] [address] [place] [address] Prothrombin Time INRon 03-19 INR Coag (PPP) [Relative time] 1.2 {INR} Normal [facility] Comment on above: Result Comment: [...] 3 - 4.5 Performed By: #### B HR COORDINATOR, PTT, CKMB, LIPASE, CK, TROP, CBC, PT, CMP #### [facility] [address] [place] [address] PT Coag (PPP) [Time] 13.6 s High 9.0-12.9 [facility] Comment on above: Performed By: #### B HR COORDINATOR, PTT, CKMB, LIPASE, CK, TROP, CBC, PT, CMP #### [address] Troponin I(TnI)on 03-19-2021 Troponin I.cardiac [Mass/Vol] ng/mL Normal 0-0.02 [facility] Comment on above: Result Comment: EBONY HI Cut off value > or equal to 0.03 ng/mL in conjunction with clinical conditions of myocardial infarction. (www.escardio.org/guidelines) PERFORMED BY: [address] [place] [address] PATHOLOGIST COMBUSTION ENGINEER WALDO WANG M.D. Performed By: #### B HR COORDINATOR, PTT, CKMB, LIPASE, CK, TROP, CBC, PT, CMP #### [facility] [address] Basic Metab w/rfx MGon 09-01 (cont.) Normal [facility] Comment on above: Result Comment: Aver age GFR for 60-69 years old: 85 mL/min/1.73sq m Chronic Kidney Disease: <60 mL/min/1.73sq m Kidney failure: <15 mL/min/1.73sq m eGFR calculated using average adult body mass. Additional eGFR calculator available at: http://www.[employer]/multiple_crcl_2012.htm Performed By: #### E RTPF #### [address] [address] Hand Profiler: Dheeraj Garcia MD Anion gap [Moles/Vol] 13 mmol/L Normal 9-17 [facility] Comment on above: Performed By: #### E RTPF #### [address] [address] Hand Profiler: Dheeraj Garcia MD Calcium [Mass/Vol] 8.8 mg/dL Normal 8.6-10.4 [facility] Comment on above: Performed By: #### E RTPF #### [address] [address] Hand Profiler: Dheeraj Garcia MD Chloride [Moles/Vol] 106 mmol/L Normal 98-107 [place] Comment on above: Performed By: #### E RTPF #### [address] [address] Hand Profiler: Dheeraj Garcia MD CO2 [Moles/Vol] 21 mmol/L Normal 20-31 [facility] Comment on above: Performed By: #### E RTPF #### [address] [address] Hand Profiler: Dheeraj Garcia MD Creatinine [Mass/Vol] 0.53 mg/dL Normal 0.50-0.90 [facility] Comment on above: Performed By: #### E RTPF #### [address] [address] Hand Profiler: Dheeraj Garcia MD GFR, Amer >60 Normal >60 [facility] Comment on above: Performed By: #### E RTPF #### [address] [address] Hand Profiler: Dheeraj Garcia MD GFR,non Amer >60 Normal >60 [place] Comment on above: Performed By: #### E RTPF #### [address] [address] Hand Profiler: Dheeraj Garcia MD Glucose [Mass/Vol] 169 mg/dL High 70-99 [facility] Comment on above: Performed By: #### E RTPF #### [address] [address] Hand Profiler: Dheeraj Garcia MD Potassium [Moles/Vol] 4.0 mmol/L Normal 3.7-5.3 [facility] Comment on above: Performed By: #### E RTPF #### [address] [address] Hand Profiler: Dheeraj Garcia MD Sodium [Moles/Vol] 140 mmol/L Normal 135-144 [facility] Comment on above: Performed By: #### E RTPF #### [address] [address] Hand Profiler: Dheeraj Garcia MD Urea nitrogen [Mass/Vol] 10 mg/dL Normal 8-23 [facility] Comment on above: Performed By: #### E RTPF #### [address] [address] Hand Profiler: Dheeraj Garcia MD BUN/CRE Ratio NOT REPORTED Normal 9-20 [facility] Comment on above: Performed By: #### E RTPF #### [facility] [address] [place], [place] [phone] Hand Profiler: Dheeraj Garcia MD Staging: NOT REPORTED Normal [facility] Comment on above: Performed By: #### E RTPF #### [facility] [address] [place], [place] [phone] Hand Profiler: Dheeraj Garcia MD Basic Metabolic Panel w/ Ref martín to MGon 09-01-2020 Anion gap [Moles/Vol] 13 mmol/L 9 - 17 mmol/L [place] Bun/Cre Ratio NOT REPORTED [place] Calcium [Mass/Vol] 8.8 mg/dL 8.6 - 10. 4 mg/dL [place] Chloride [Moles/Vol] 106 mmol/L 98 - 10 7 mmol/L [place] CO2 [Moles/Vol] 21 mmol/L 20 - 31 mmol/L [place] Creatinine [Mass/Vol] 0.53 mg/dL 0.5 - 0.9 mg/dL [place] GFR >60 >60 mL/min [place] GFR Non- >60 >60 mL/min [place] GFR/1.73 sq M predicted among non-blacks MDRD (S/P/Bld) [Vol rate/Area] [place] Comment on above: Average GFR for 60-6 9 years old: 85 mL/min/1.73sq m Chronic Kidney Disease: <60 mL/min/1.73sq m Kidney failure: <15 mL/min/1.73sq m eGFR calculated using average adult body mass. Additional eGFR calculator available at: http://www.ReviewZAP.Whale Path/multiple_crcl_2012.htm GFR/1.73 sq M predicted among non-blacks MDRD (S/P/Bld) [Vol rate/Area] NOT REPORTED [place] Glucose [Mass/Vol] 169 mg/dL High 70 - 99 mg/dL [place] Interpretation and review of laboratory results Abnormal [place] Potassium [Moles/Vol] 4.0 mmol/L 3.7 - 5.3 mmol/L [place] Sodium [Moles/Vol] 140 mmol/L 135 - 144 mmol/L [place] Urea nitrogen [Mass/Vol] 10 mg/dL 8 - 23 mg/dL [place] CBC auto differentialon 08-17 Basophils (Bld) [#/Vol] 0.10 10*3/uL [place] Basophils/100 WBC (Bld) 1 % 0 - 2 % [place] Differential Type NOT REPORTED [place] Eosinophils (Bld) [#/Vol] 0.25 10*3/uL [place] Eosinophils/100 WBC (Bld) 3 % 1 - 4 % [place] Erythrocyte distribution width (RBC) [Ratio] 14.0 % 11.8 - 14.4 % [place] Hematocrit (Bld) [Volume fraction] 40.7 % 36.3 - 47.1 % [place] Hemoglobin (Bld) [Mass/Vol] 12.7 g/dL 11.9 - 15.1 g/dL [place] Immature granulocytes (Bld) [#/Vol] 0.06 10*3/uL [place] Immature granulocytes (Bld) [#/Vol] 1 % High 0 [place] Interpretation and review of laboratory results Abnormal [place] Lymphocytes (Bld) [#/Vol] 2.12 10*3/uL [place] Lymphocytes/100 WBC (Bld) 23 % Low 24 - 43 % [place] MCH (RBC) [Entitic mass] 28.1 pg 25.2 - 33.5 pg [place] MCHC (RBC) [Mass/Vol] 31.2 g/dL 28.4 - 34.8 g/dL [place] MCV (RBC) [Entitic vol] 90.0 fL 82.6 - 102.9 fL [place] Monocytes (Bld) [#/Vol] 0.68 10*3/uL [place] Monocytes/100 WBC (Bld) 7 % 3 - 12 % [place] Platelet mean volume (Bld) [Entitic vol] 10.6 fL 8.1 - 13.5 fL [place] Platelets (Bld) [#/Vol] NOT REPORTED [place] Platelets (Bld) [#/Vol] 251 10*3/uL [place] RBC (Bld) [#/Vol] 4.52 10*6/uL 3.95 - 5.1 1 m/uL [place] RBC morphology finding Nom (Bld) NOT REPORTED [place] Segmented neutrophils/100 WBC (Bld) 65 % 36 - 65 % [place] Segs Absolute 6.18 [place], [place] WBC (Bld) [#/Vol] 0.0 10*3/uL 0.0 per 10 0 WBC [place] WBC (Bld) [#/Vol] 9.4 10*3/uL [place] WBC Morphology NOT REPORTED [place], [place] CBC with Diffon 09-01-2020 Abs. Basophil 0.10 k/uL Normal 0.00-0.20 [facility] Comment on above: Performed By: #### C DP, HCG, ALCB, BMPX, LIPR, GLYHGB #### [facility] [address] [place] [address] [phone] Hand Profiler: Dheeraj Garcia MD Abs.Imm.Granulocyte 0.06 k/uL Normal 0.00-0.30 [facility] Comment on above: Performed By: #### C DP, HCG, ALCB, BMPX, LIPR, GLYHGB #### [facility] [facility] [address] [place] [address] [phone] Hand Profiler: Dheeraj Garcia MD Abs.Neutrophil (Seg) 6.18 k/uL Normal 1.50-8.10 [place] Comment on above: Performed By: #### C DP, HCG, ALCB, BMPX, LIPR, GLYHGB #### [facility] [address] [place] [address] [phone] Hand Profiler: Dheeraj Garcia MD Basophils/100 WBC (Bld) 1 % Normal 0-2 [facility] Comment on above: Performed By: #### C DP, HCG, ALCB, BMPX, LIPR, GLYHGB #### [facility] [address] [place] [address] Hand Profiler: Dheeraj Garcia MD Eosinophils (Bld) [#/Vol] 0.25 10*3/uL Normal 0.00-0.44 [facility] Comment on above: Performed By: #### C DP, HCG, ALCB, BMPX, LIPR, GLYHGB #### [facility] [address] [place] [address] Hand Profiler: Dheeraj Garcia MD Eosinophils/100 WBC (Bld) 3 % Normal 1-4 [facility] Comment on above: Performed By: #### C DP, HCG, ALCB, BMPX, LIPR, GLYHGB #### [facility] [address] [place] [address] Hand Profiler: Dheeraj Garcia MD Erythrocyte distribution width (RBC) [Ratio] 14.0 % Normal 11.8-14.4 [facility] Comment on above: Performed By: #### C DP, HCG, ALCB, BMPX, LIPR, GLYHGB #### [facility] [address] [place] [address] Hand Profiler: Dheeraj Garcia MD Hematocrit (Bld) [Volume fraction] 40.7 % Normal 36.3-47.1 [facility] Comment on above: Performed By: #### C DP, HCG, ALCB, BMPX, LIPR, GLYHGB #### [address] [address] Hand Profiler: Dheeraj Garcia MD Hemoglobin (Bld) [Mass/Vol] 12.7 g/dL Normal 11.9-15.1 [facility] Comment on above: Performed By: #### C DP, HCG, ALCB, BMPX, LIPR, GLYHGB #### [address] [address] Hand Profiler: Dheeraj Garcia MD Immature granulocytes (Bld) [#/Vol] 1 % High 0 [facility] Comment on above: Performed By: #### C DP, HCG, ALCB, BMPX, LIPR, GLYHGB #### [address] [address] Hand Profiler: Dheeraj Garcia MD Lymphocytes (Bld) [#/Vol] 2.12 10*3/uL Normal 1.10-3.70 [facility] Comment on above: Performed By: #### C DP, HCG, ALCB, BMPX, LIPR, GLYHGB #### [place] [address] Hand Profiler: Dheeraj Garcia MD Lymphocytes/100 WBC (Bld) 23 % Low 24-43 [facility] Comment on above: Performed By: #### C DP, HCG, ALCB, BMPX, LIPR, GLYHGB #### [address] [address] Hand Profiler: Dheeraj Garcia MD MCH (RBC) [Entitic mass] 28.1 pg Normal 25.2-33.5 [facility] Comment on above: Performed By: #### C DP, HCG, ALCB, BMPX, LIPR, GLYHGB #### [address] [address] Hand Profiler: Dheeraj Garcia MD MCHC (RBC) [Mass/Vol] 31.2 g/dL Normal 28.4-34.8 [facility] Comment on above: Performed By: #### C DP, HCG, ALCB, BMPX, LIPR, GLYHGB #### [address] [address] Hand Profiler: Dheeraj Garcia MD MCV (RBC) [Entitic vol] 90.0 fL Normal 82.6-102.9 [facility] Comment on above: Performed By: #### C DP, HCG, ALCB, BMPX, LIPR, GLYHGB #### [address] [address] Hand Profiler: Dheeraj Garcia MD Monocytes (Bld) [#/Vol] 0.68 10*3/uL Normal 0.10-1.20 [facility] Comment on above: Performed By: #### C DP, HCG, ALCB, BMPX, LIPR, GLYHGB #### [address] [address] Hand Profiler: Dheeraj Garcia MD Monocytes/100 WBC (Bld) 7 % Normal 3-12 [facility] Comment on above: Performed By: #### C DP, HCG, ALCB, BMPX, LIPR, GLYHGB #### [address] [address] Hand Profiler: Dheeraj Garcia MD Neutrophil (Seg) 65 % Normal 36-65 [facility] Comment on above: Performed By: #### C DP, HCG, ALCB, BMPX, LIPR, GLYHGB #### [place] [address] Hand Profiler: Dheeraj Garcia MD NRBC Automated 0.0 per 100 WBC Normal 0.0 [facility] Comment on above: Performed By: #### C DP, HCG, ALCB, BMPX, LIPR, GLYHGB #### [address] [address] Hand Profiler: Dheeraj Garcia MD Platelet mean volume (Bld) [Entitic vol] 10.6 fL Normal 8.1-13.5 [facility] Comment on above: Performed By: #### C DP, HCG, ALCB, BMPX, LIPR, GLYHGB #### [address] [address] Hand Profiler: Dheeraj Gracia MD Platelets (Bld) [#/Vol] 251 10*3/uL Normal 138-453 [facility] Comment on above: Performed By: #### C DP, HCG, ALCB, BMPX, LIPR, GLYHGB #### [address] [address] Hand Profiler: Dheeraj Garcia MD RBC (Bld) [#/Vol] 4.52 10*6/uL Normal 3.95-5.11 [facility] Comment on above: Performed By: #### C DP, HCG, ALCB, BMPX, LIPR, GLYHGB #### [address] [address] Hand Profiler: Dheeraj Garcia MD WBC (Bld) [#/Vol] 9.4 10*3/uL Normal 3.5-11.3 [facility] Comment on above: Performed By: #### C DP, HCG, ALCB, BMPX, LIPR, GLYHGB #### [address] [address] Hand Profiler: Dheeraj Garcia MD Auto Diff Performed NOT REPORTED Normal [facility] Comment on above: Performed By: #### C DP, HCG, ALCB, BMPX, LIPR, GLYHGB #### [address] [address] Hand Profiler: Dheeraj Garcia MD Platelets (Bld) [#/Vol] NOT REPORTED Normal [facility] Comment on above: Performed By: #### C DP, HCG, ALCB, BMPX, LIPR, GLYHGB #### [facility] [address] [place], [place] [phone] Hand Profiler: Dheeraj Garcia MD RBC morphology finding Nom (Bld) NOT REPORTED Normal [facility] Comment on above: Performed By: #### C DP, HCG, ALCB, BMPX, LIPR, GLYHGB #### [facility] [address] [place], [place] [phone] Hand Profiler: Dheeraj Garcia MD WBC Morphology NOT REPORTED Normal [facility] Comment on above: Performed By: #### C DP, HCG, ALCB, BMPX, LIPR, GLYHGB #### [facility] [address] [place], [place] [phone] Hand Profiler: Dheeraj Garcia MD Echo Completeon 09-01-2020 [place], [facility] Incoming Cardio Results From [facility]/ - 09/01/2020 3:37 PM EDT Transthoracic Echocardiography Report (TTE) Patient Name DENDINGER Date of Study 09/01/2020 YEYO Date of 1955 Gender Female Age 64 year(s) Race Room Number 0234 Height: 65 inch, 165.1 cm Corporate ID [id number] Weight: 232 pounds, 105.2 kg # Patient Acct [id number] BSA: 2.11 m^2 BMI: 38.61 # kg/m^2 MR # [id number] Rehabilitation Aide GarfieldRimmaPérez Interpreting Physician Abundio Aguilar Fellow Referring Nurse Practitioner Interpreting Referring Physician Moisés Rodríguez Fellow Type of Study TTE procedure:2D Echocardiogram, M-Mode, Doppler, Color Doppler, Bubble Study. Procedure Date Date: 09/01/2020 Start: 07:38 AM Study Location: [facility] Technical Quality: Fair visualization Comments:Syncope, R/o CVA [...] - - - Electronically signed by Abundio Aguilar([facility] physician) on 09/01/2020 03:37 PM - FINDINGS [...] Wall E' velocity:0.07 m/s Lateral Wall E/E':8.8 [facility] Transthoracic Echocardiography Report (TTE) Patient Name MARGARITA Date of Study 09/01/2020 YEYO Date of 1955 Gender Female Age 64 year(s) Race Room Number 0234 Height: 65 inch, 165.1 cm Corporate ID [id number] Weight: 232 pounds, 105.2 kg # Patient Acct [id number] BSA: 2.11 m^2 BMI: 38.61 # kg/m^2 MR # [id number] Rehabilitation Aide Pérez Lao Interpreting Physician Abundio Aguilar Fellow Referring Nurse Practitioner Interpreting Referring Physician Moisés Rodríguez Fellow Type of Study TTE procedure:2D Echocardiogram, M-Mode, Doppler, Color Doppler, Bubble Study. Procedure Date Date: 09/01/2020 Start: 07:38 AM Study Location: [facility] Technical Quality: Fair visualization Comments:Syncope, R/o CVA [...] Wall E' velocity:0.07 m/s Lateral Wall E/E':8.8 [place] Ethanolon 09-01-2020 Ethanol [Mass/Vol] mg/dL <10 mg/dL [place] Ethanol percent <0.010 <0.010 % [place] Ethanol Alcoholon 09-01-2020 Ethanol [Mass/Vol] mg/dL Normal <10 [facility] Comment on above: Performed By: #### E RTPF #### [facility] [place], [place] [phone] Hand Profiler: Dheeraj Garcia MD Ethanol percent <0.010 Normal <0.010 [facility] Comment on above: Performed By: #### E RTPF #### [facility] [place], [place] [phone] Hand Profiler: Dheeraj Garcia MD HCG Qualitative, Serumon hCG Qual Negative NEGATIVE [place] Comment on above: Specimens with hCG l evels near the threshold of the test (25 mIU/mL) may give a negative or indeterminate result. In such cases, another test should be performed with a new specimen in 48-72 hours. If early is suspected clinically in this setting, correlation with quantitative serum b-hCG level is suggested. [facility] has confirmed the use of plasma for this test. This has not been cleared or approved by the U.S. Food and Drug Administration. The FDA has determined that such clearance is not necessary. HCG Screen, Bloodon 09-01-20 20 HCG Qn Negative Normal NEG [facility] Comment on above: Result Comment: Spec imens with hCG levels near the threshold of the test (25 mIU/mL) may give a negative or indeterminate result. In such cases, another test should be performed with a new specimen in 48-72 hours. If early is suspected clinically in this setting, correlation with quantitative serum b-hCG level is suggested. [facility] has confirmed the use of plasma for this test. This has not been cleared or approved by the U.S. Food and Drug Administration. The FDA has determined that such clearance is not necessary. Performed By: #### E RTPF #### [facility] [address] [place] [address] [phone] Hand Profiler: Dheeraj Garcia MD Hematologyon 09-01-2020 WBC (Bld) [#/Vol] DUPLICATE ORDER per 100 WBC [place] Hemoglobin A1Con 09-01-2020 HbA1c (Bld) [Mass fraction] 151 mg/dL Normal [facility] Comment on above: Result Comment: The ADA and AACC recommend providing the estimated average glucose result to permit better patient understanding of their HBA1c result. Performed By: #### E RTPF #### [facility] [place], [place] [phone] Hand Profiler: Dheeraj Garcia MD HbA1c (Bld) [Mass fraction] 6.9 % High 4.0-6.0 [facility] Comment on above: Performed By: #### E RTPF #### [facility] [address] [place] [address] Hand Profiler: Dheeraj Garcia MD Hemoglobin A1con 09-01-2020 Glucose [Mass/Vol] 151 mg/dL [place] Comment on above: The ADA and AACC rec ommend providing the estimated average glucose result to permit better patient understanding of their HBA1c result. HbA1c (Bld) [Mass fraction] 6.9 % High 4 - 6 % [place] Interpretation and review of laboratory results Abnormal [place] Lipid Profileon 09-01-2020 Cholesterol [Mass/Vol] 123 mg/dL Normal <200 [facility] Comment on above: Result Comment: Cholesterol Guidelines: <200 Desirable 200-240 Borderline >240 Undesirable Performed By: #### E RTPF #### [address] [address] Hand Profiler: Dheeraj Garcia MD Cholesterol in HDL [Mass/Vol] 43 mg/dL Normal >40 [facility] Comment on above: Result Comment: HDL Guidelines: <40 Undesirable 40-59 Borderline >59 Desirable Performed By: #### E RTPF #### [address] [address] Hand Profiler: Dheeraj Garcia MD Cholesterol in LDL [Mass/Vol] 50 mg/dL Normal 0-130 [facility] Comment on above: Result Comment: LDL Guidelines: <100 Desirable 100-129 Near to/above Desirable 130-159 Borderline >159 Undesirable Direct (measured) LDL and calculated LDL are not interchangeable tests. Performed By: #### E RTPF #### [facility] [address] [place] [address] Hand Profiler: Dheeraj Garcia MD Cholesterol.total/Chol esterol in HDL [Mass ratio] 2.9 {ratio} Normal <5 [facility] Comment on above: Performed By: #### E RTPF #### [facility] [address] [place] [address] Hand Profiler: Dheeraj Garcia MD Triglyceride [Mass/Vol] 149 mg/dL Normal <150 [facility] Comment on above: Result Comment: Triglyceride Guidelines: <150 Desirable 150-199 Borderline 200-499 High >499 Very high Based on AHA Guidelines for fasting triglyceride, August 2012. Performed By: #### E RTPF #### [facility] [address] [place] [address] Hand Profiler: Dheeraj Garcia MD Cholesterol in VLDL [Mass/Vol] NOT REPORTED Normal 1-30 [facility] Comment on above: Performed By: #### E RTPF #### [facility] [address] [place], [place] [phone] Hand Profiler: Dheeraj Garcia MD Lipid panel - fastingon 08-17 Cholesterol [Mass/Vol] 123 mg/dL <200 [place] Comment on above: Cholesterol Guidelines: <200 Desirable 200-240 Borderline >240 Undesirable Cholesterol in HDL [Mass/Vol] 43 mg/dL >40 [place] Comment on above: HDL Guidelines: <40 Undesirable 40-59 Borderline >59 Desirable Cholesterol in LDL [Mass/Vol] 50 mg/dL 0 - 130 mg/dL [place] Comment on above: LDL Guidelines: <100 Desirable 100-129 Near to/above Desirable 130-159 Borderline >159 Undesirable Direct (measured) LDL and calculated LDL are not interchangeable tests. Cholesterol in VLDL [Mass/Vol] NOT REPORTED 1 - 30 mg/dL [place] Cholesterol.total/Chol esterol in HDL [Mass ratio] 2.9 {ratio} <5 [place] Triglyceride [Mass/Vol] 149 mg/dL <150 [place] Comment on above: Triglyceride Guidelines: <150 Desirable 150-199 Borderline 200-499 High >499 Very high Based on AHA Guidelines for fasting triglyceride, August 2012. Metabolic Panelon 09-01-2020 GFR/1.73 sq M predicted among non-blacks MDRD (S/P/Bld) [Vol rate/Area] DUPLICATE ORDER [place] TRAUMA PANELon 09-01-2020 Hubert Test NOT REPORTED [place], [place] Anion gap [Moles/Vol] DUPLICATE ORDER mmol/L [place] aPTT Coag (Bld) [Time] 27.5 s [place], [place] Comment on above: IV Heparin Therapy Range: 48.6-77.8 aPTT Coag (Bld) [Time] 37.0 s [place] Blood Bank Specimen BILL FOR SERVICES PERFORMED [place] Carboxyhemoglobin 0.6 % 0 - 5 % [place] Comment on above: Reference Range: Non-Smokers 0-2% Average Smoker 2-4% Heavy Smoker <10% Chloride [Moles/Vol] DUPLICATE ORDER mmol/L [place] CO2 [Moles/Vol] DUPLICATE ORDER mmol/L [place] Creatinine [Mass/Vol] DUPLICATE ORDER mg/dL [place] Erythrocyte distribution width (RBC) [Ratio] DUPLICATE ORDER % [place] Ethanol [Mass/Vol] Order moved to nearest draw time. [id number] mg/dL [place] Ethanol percent Order moved to nearest draw time. [id number] % [place] FIO2 UNKNOWN [place] GFR DUPLICATE ORDER >60 mL/min [place] GFR Non- DUPLICATE ORDER >60 mL/min [place] Glucose [Mass/Vol] DUPLICATE ORDER mg/dL [place] hCG Qual Order moved to nearest draw time. [id number] NEGATIVE [place] HCO3, Venous 27.6 mmol/L 24 - 30 mmol/L [place] Hematocrit (Bld) [Volume fraction] DUPLICATE ORDER % [place] Hemoglobin (Bld) [Mass/Vol] DUPLICATE ORDER g/dL [place] INR Coag (PPP) [Relative time] 1.0 {INR} [place] Comment on above: Therapeutic Range: Moderate Anticoagulant Intensity: INR = 2.0-3.0 High Anticoagulant Intensity: INR = 2.5-3.5 Interpretation and review of laboratory results Abnormal [place] MCH (RBC) [Entitic mass] DUPLICATE ORDER pg [place] MCHC (RBC) [Mass/Vol] DUPLICATE ORDER g/dL [place] MCV (RBC) [Entitic vol] DUPLICATE ORDER fL [facility] Methemoglobin NOT REPORTED 0 - 1.5 % [facility], [place] Mode NOT REPORTED [place] Negative Base Excess, Christo NOT REPORTED 0 - 2 mmol/L [facility] NOTIFICATION NOT REPORTED [place] NOTIFICATION TIME NOT REPORTED [place] O2 Device/Flow/% NOT REPORTED [place] Oxygen saturation in Blood 43.1 % Low 60 - 85 % [place] Oxyhemoglobin NOT REPORTED 95 - 98 % [facility] pCO2, Christo 48.8 [place] pCO2, Christo, Temp Adj NOT REPORTED [place], [place] Peep/Cpap NOT REPORTED [place] pH, Christo 7.371 [place] pH, Christo, Temp Adj NOT REPORTED [place] Platelet mean volume (Bld) [Entitic vol] DUPLICATE ORDER fL [place] Platelets (Bld) [#/Vol] DUPLICATE ORDER k/uL [place] pO2, Christo 23.6 Low [place] pO2, Christo, Temp Adj NOT REPORTED [place], [place] Positive Base Excess, Christo 2.1 mmol/L High 0 - 2 mmol/L [place] Potassium [Moles/Vol] DUPLICATE ORDER mmol/L [place] PSV NOT REPORTED [place] PT Coag (PPP) [Time] 10.4 s [place], [place] Pt. Position NOT REPORTED [place] RBC (Bld) [#/Vol] DUPLICATE ORDER m/uL [place] Sample Site NOT REPORTED [facility] [place] Set Rate NOT REPORTED [place] Sodium [Moles/Vol] DUPLICATE ORDER mmol/L [place], [place] Text for Respiratory NOT REPORTED [place], [place] Total Hb NOT REPORTED 12 - 16 g/dl [place], [place] Total Rate NOT REPORTED [place] Urea nitrogen [Mass/Vol] DUPLICATE ORDER mg/dL [place], [place] VT NOT REPORTED [place] Trauma Profileon 09-01-2020 aPTT Coag (Bld) [Time] 27.5 s Normal 20.5-30.5 [facility] Comment on above: Result Comment: IV Heparin Therapy Range: 48.6-77.8 Performed By: #### E RTPF #### [address] [address] Hand Profiler: Dheeraj Garcia MD INR Coag (PPP) [Relative time] 1.0 {INR} Normal [facility] Comment on above: Result Comment: Therapeutic Range: Moderate Anticoagulant Intensity: INR = 2.0-3.0 High Anticoagulant Intensity: INR = 2.5-3.5 Performed By: #### E RTPF #### [address] [address] Hand Profiler: Dheeraj Garcia MD PT Coag (PPP) [Time] 10.4 s Normal 9.0-12.0 [place] Comment on above: Performed By: #### E RTPF #### [address] [address] Hand Profiler: Dheeraj Garcia MD Body Temp. 37.0 [facility] Comment on above: Performed By: #### E RTPF #### [address] [address] Hand Profiler: Dheerja Garcia MD Carboxy Hgb 0.6 % Normal 0-5 [facility] Comment on above: Result Comment: Reference Range: Non-Smokers 0-2% Average Smoker 2-4% Heavy Smoker <10% Performed By: #### E RTPF #### [address] [address] Hand Profiler: Dheeraj Garcia MD FIO2 UNKNOWN Normal [facility] Comment on above: Performed By: #### E RTPF #### [address] [address] Hand Profiler: Dheeraj aGrcia MD HCO3 (Bld) [Moles/Vol] 27.6 mmol/L Normal 24-30 [facility] Comment on above: Performed By: #### E RTPF #### [address] [address] Hand Profiler: Dheeraj Garcia MD Oxygen (Bld) [Partial pressure] 23.6 mm[Hg] Low 30-50 [facility] Comment on above: Performed By: #### E RTPF #### [address] [address] Hand Profiler: Dheeraj Garcia MD Oxygen saturation in Blood 43.1 % Low 60.0-85.0 [facility] Comment on above: Performed By: #### E RTPF #### [address] [address] Hand Profiler: Dheeraj Garcia MD pCO2 48.8 Normal 39-55 [facility] Comment on above: Performed By: #### E RTPF #### [address] [address] Hand Profiler: Dheeraj Garcia MD pH (Bld) 7.371 [pH] Normal 7.320-7.420 [facility] Comment on above: Performed By: #### E RTPF #### [address] [address] Hand Profiler: Dheeraj Garcia MD Positive Base Excess 2.1 mmol/L High 0.0-2.0 [place] Comment on above: Performed By: #### E RTPF #### [address] [address] Hand Profiler: Dheeraj Garcia MD Hubert Test NOT REPORTED Normal [facility] Comment on above: Performed By: #### E RTPF #### [facility] [address] [place] [address] Hand Profiler: Dheeraj Garcia MD Methemoglobin NOT REPORTED Normal 0.0-1.5 [facility] Comment on above: Performed By: #### E RTPF #### [address] [address] Hand Profiler: Dheeraj Garcia MD Mode NOT REPORTED Normal [facility] Comment on above: Performed By: #### E RTPF #### [facility] [address] [place] [address] Hand Profiler: Dheeraj Garcia MD Negative Base Excess NOT REPORTED Normal 0.0-2.0 [facility] Comment on above: Performed By: #### E RTPF #### [facility] [address] [place] [address] Hand Profiler: Dheeraj Garcia MD Notification Time NOT REPORTED Normal [facility] Comment on above: Performed By: #### E RTPF #### [address] [address] Hand Profiler: Dheeraj Garcia MD Notification: NOT REPORTED Normal [facility] Comment on above: Performed By: #### E RTPF #### [facility] [address] [place] [address] Hand Profiler: Dheeraj Garcia MD O2 Device/Flow/% NOT REPORTED Normal [facility] Comment on above: Performed By: #### E RTPF #### [facility] [address] [place] [address] Hand Profiler: Dheeraj Garcia MD Oxyhemoglobin NOT REPORTED Normal 95.0-98.0 [facility] Comment on above: Performed By: #### E RTPF #### [facility] [address] [place] [address] Hand Profiler: Dheeraj Garcia MD Pco2 Adj'd for Temp. NOT REPORTED Normal 39-55 [facility] Comment on above: Performed By: #### E RTPF #### [facility] [address] [address] Hand Profiler: Dheeraj Garcia MD PEEP/CPAP NOT REPORTED Normal [facility] Comment on above: Performed By: #### E RTPF #### [address] [address] Hand Profiler: Dheeraj Garcia MD pH Adjst'd for Temp. NOT REPORTED Normal 7.320-7.420 M [facility] Comment on above: Performed By: #### E RTPF #### [address] [address] Hand Profiler: Dheeraj Garcia MD pO2 Adj'd for Temp. NOT REPORTED Normal 30-50 [facility] Comment on above: Performed By: #### E RTPF #### [address] [address] Hand Profiler: Dheeraj Garcia MD PSV NOT REPORTED Normal [facility] Comment on above: Performed By: #### E RTPF #### [address] [address] Hand Profiler: Dheeraj Garcia MD Pt. Position NOT REPORTED Normal [facility] Comment on above: Performed By: #### E RTPF #### [address] [address] Hand Profiler: Dheeraj Garcia MD Set Rate NOT REPORTED Normal [facility] Comment on above: Performed By: #### E RTPF #### [address] [address] Hand Profiler: Dheeraj Garcia MD Site Drawn NOT REPORTED Normal [facility] Comment on above: Performed By: #### E RTPF #### [address] [address] Hand Profiler: Dheeraj Garcia MD Text for Respiratory NOT REPORTED Normal [facility] Comment on above: Performed By: #### E RTPF #### [address] [address] Hand Profiler: Dheeraj Garcia MD Total Hb NOT REPORTED Normal 12.0-16.0 [facility] Comment on above: Performed By: #### E RTPF #### [address] [address] Hand Profiler: Dheeraj Garcia MD Total Rate NOT REPORTED Normal [facility] Comment on above: Performed By: #### E RTPF #### [address] [address] Hand Profiler: Dheeraj Garcia MD [place] NOT REPORTED Normal [facility] Comment on above: Performed By: #### E RTPF #### [address] [address] Hand Profiler: Dheeraj Garcia MD Blood Bank BILL FOR SERVICES PERFORMED Normal [facility] Comment on above: Performed By: #### E RTPF #### [address] [address] Hand Profiler: Dheeraj Garcia MD CT CERVICAL SPINE WO [...] Krishna Martell DO 08/30/20 Final result Normal [facility] CT CHEST ABDOMEN PELVIS W CO [...] Brenda Sheldon MD 08/30/20 Final result Normal [facility] CT LUMBAR SPINE TRAUMA RECON STRUCTIONon [...] Krishna Martell DO 08/30/20 Final result Normal [facility] CT THORACIC SPINE TRAUMA REC ONSTRUCTIONon [...] Krishna Martell DO 08/30/20 Final result Normal [facility] CTA HEAD NECK W CONTRASTon 1 [...] Dom Zhong MD 08/30/20 Final result Normal [facility] MRI LIMITED BRAINon 08-31-20 MRI LIMITED [...] Hector Cooper MD 08/31/20 Final result Normal [facility], [facility] Incoming Radiant Results From [facility] - 08/31/2020 11:56 AM EDT EXAMINATION: MRI [...] chronic microvascular disease without acute intracranial abnormality. [place] Minimal chronic microvascular disease without acute intracranial abnormality. [place] EXAMINATION: MRI OF THE BRAIN WITHOUT [...] The soft tissues demonstrate no acute abnormality. [place] Trauma Profileon 08-31-2020 Erythrocyte distribution width (RBC) [Ratio] 14.1 % Normal 11.8-14.4 [facility] Comment on above: Performed By: #### E RTPF #### [facility] [address] [place], [place] [id number] Hand Profiler: Dheeraj Garcia MD Hematocrit (Bld) [Volume fraction] 38.2 % Normal 36.3-47.1 [facility] Comment on above: Performed By: #### E RTPF #### [facility] [address] [place] [address] Hand Profiler: Dheeraj Garcia MD Hemoglobin (Bld) [Mass/Vol] 12.3 g/dL Normal 11.9-15.1 [facility] Comment on above: Performed By: #### E RTPF #### [address] [address] Hand Profiler: Dheeraj Garcia MD MCH (RBC) [Entitic mass] 28.9 pg Normal 25.2-33.5 [facility] Comment on above: Performed By: #### E RTPF #### [address] [address] Hand Profiler: Dheeraj Garcia MD MCHC (RBC) [Mass/Vol] 32.2 g/dL Normal 28.4-34.8 [facility] Comment on above: Performed By: #### E RTPF #### [address] [address] Hand Profiler: Dheeraj Garcia MD MCV (RBC) [Entitic vol] 89.7 fL Normal 82.6-102.9 [facility] Comment on above: Performed By: #### E RTPF #### [address] [address] Hand Profiler: Dheeraj Garcia MD NRBC Automated 0.0 per 100 WBC Normal 0.0 [facility] Comment on above: Performed By: #### E RTPF #### [address] [address] Hand Profiler: Dheeraj Garcia MD Platelet mean volume (Bld) [Entitic vol] 10.6 fL Normal 8.1-13.5 [facility] Comment on above: Performed By: #### E RTPF #### [address] [address] Hand Profiler: Dheeraj Garcia MD Platelets (Bld) [#/Vol] 268 10*3/uL Normal 138-453 [facility] Comment on above: Performed By: #### E RTPF #### [address] [address] Hand Profiler: Dheeraj Garcia MD RBC (Bld) [#/Vol] 4.26 10*6/uL Normal 3.95-5.11 [facility] Comment on above: Performed By: #### E RTPF #### [address] [address] Hand Profiler: Dheeraj Garcia MD WBC (Bld) [#/Vol] 8.7 10*3/uL Normal 3.5-11.3 [facility] Comment on above: Performed By: #### E RTPF #### [address] [address] Hand Profiler: Dheeraj Garcia MD (cont.) [facility] Comment on above: Result Comment: Aver age GFR for 60-69 years old: 85 mL/min/1.73sq m Chronic Kidney Disease: <60 mL/min/1.73sq m Kidney failure: <15 mL/min/1.73sq m eGFR calculated using average adult body mass. Additional eGFR calculator available at: http://www.ReviewZAP.com/multiple_crcl_2012.htm Performed By: #### E RTPF #### [address] [address] Hand Profiler: Dheeraj Garcia MD Anion gap [Moles/Vol] 10 mmol/L Normal 9-17 [facility] Comment on above: Performed By: #### E RTPF #### [address] [address] Hand Profiler: Dheeraj Garcia MD Chloride [Moles/Vol] 106 mmol/L Normal 98-107 [place] Comment on above: Performed By: #### E RTPF #### [address] [address] Hand Profiler: Dheeraj Garcia MD CO2 [Moles/Vol] 23 mmol/L Normal 20-31 [facility] Comment on above: Performed By: #### E RTPF #### [address] [address] Hand Profiler: Dheeraj Garcia MD Creatinine [Mass/Vol] 0.62 mg/dL Normal 0.50-0.90 [facility] Comment on above: Performed By: #### E RTPF #### [address] [address] Hand Profiler: Dheeraj Garcia MD Ethanol [Mass/Vol] mg/dL Normal <10 [facility] Comment on above: Performed By: #### E RTPF #### [address] [address] Hand Profiler: Dheeraj Garcia MD Ethanol percent <0.010 Normal <0.010 [facility] Comment on above: Performed By: #### E RTPF #### [address] [address] Hand Profiler: Dheeraj Garcia MD GFR, Amer >60 Normal >60 [facility] Comment on above: Performed By: #### E RTPF #### [address] [address] Hand Profiler: Dheeraj Garcia MD GFR,non Amer >60 Normal >60 [place] Comment on above: Performed By: #### E RTPF #### [address] [address] Hand Profiler: Dheeraj Garcia MD Glucose [Mass/Vol] 186 mg/dL High 70-99 [facility] Comment on above: Performed By: #### E RTPF #### [address] [address] Hand Profiler: Dheeraj Garcia MD Potassium [Moles/Vol] 3.5 mmol/L Low 3.7-5.3 [facility] Comment on above: Performed By: #### E RTPF #### [address] [address] Hand Profiler: Dheeraj Garcia MD Sodium [Moles/Vol] 139 mmol/L Normal 135-144 [facility] Comment on above: Performed By: #### E RTPF #### [address] [address] Hand Profiler: Dheeraj Garcia MD Urea nitrogen [Mass/Vol] 11 mg/dL Normal 8-23 [facility] Comment on above: Performed By: #### E RTPF #### [address] [address] Hand Profiler: Dheeraj Garcia MD aPTT Coag (Bld) [Time] 24.4 s Normal 20.5-30.5 [facility] Comment on above: Result Comment: IV Heparin Therapy Range: 48.6-77.8 Performed By: #### E RTPF #### [address] [address] Hand Profiler: Dheeraj Garcia MD INR Coag (PPP) [Relative time] 1.0 {INR} Normal [facility] Comment on above: Result Comment: Therapeutic Range: Moderate Anticoagulant Intensity: INR = 2.0-3.0 High Anticoagulant Intensity: INR = 2.5-3.5 Performed By: #### E RTPF #### [address] [address] Hand Profiler: Dheeraj Garcia MD PT Coag (PPP) [Time] 10.5 s Normal 9.0-12.0 [place] Comment on above: Performed By: #### E RTPF #### [address] [address] Hand Profiler: Dheeraj Garcia MD Body Temp. 37.0 Normal [facility] Comment on above: Performed By: #### E RTPF #### [address] [address] Hand Profiler: Dheeraj Garcia MD Carboxy Hgb 2.2 % Normal 0-5 [facility] Comment on above: Result Comment: Reference Range: Non-Smokers 0-2% Average Smoker 2-4% Heavy Smoker <10% Performed By: #### E RTPF #### [address] [address] Hand Profiler: Dheeraj Garcia MD FIO2 INFORMATION NOT PROVIDED [facility] Comment on above: Performed By: #### E RTPF #### [address] [address] Hand Profiler: Dheeraj Garcia MD HCO3 (Bld) [Moles/Vol] 23.6 mmol/L Low 24-30 [facility] Comment on above: Performed By: #### E RTPF #### [address] [address] Hand Profiler: Dheeraj Garcia MD Negative Base Excess 0.8 mmol/L Normal 0.0-2.0 [place] Comment on above: Performed By: #### E RTPF #### [address] [address] Hand Profiler: Dheeraj Garcia MD Oxygen (Bld) [Partial pressure] 143.0 mm[Hg] High 30-50 [facility] Comment on above: Performed By: #### E RTPF #### [facility] [address] [place] [address] Hand Profiler: Dheeraj Garcia MD Oxygen saturation in Blood 98.6 % High 60.0-85.0 [facility] Comment on above: Performed By: #### E RTPF #### [address] [address] Hand Profiler: Dheeraj Garcia MD pCO2 40.6 Normal 39-55 [facility] Comment on above: Performed By: #### E RTPF #### [address] [address] Hand Profiler: Dheeraj Garcia MD pH (Bld) 7.383 [pH] Normal 7.320-7.420 [facility] Comment on above: Performed By: #### E RTPF #### [address] [address] Hand Profiler: Dheeraj Garcia MD Blood Bank BILL FOR SERVICES PERFORMED Normal [facility] Comment on above: Performed By: #### E RTPF #### [address] [address] Hand Profiler: Dheeraj Garcia MD Hubert Test NOT REPORTED Normal [facility] Comment on above: Performed By: #### E RTPF #### [address] [address] Hand Profiler: Dheeraj Garcia MD Methemoglobin NOT REPORTED Normal 0.0-1.5 [facility] Comment on above: Performed By: #### E RTPF #### [address] [address] Hand Profiler: Dheeraj Garcia MD Mode NOT REPORTED Normal [facility] Comment on above: Performed By: #### E RTPF #### [address] [address] Hand Profiler: Dheeraj Garcia MD Notification Time NOT REPORTED Normal [facility] Comment on above: Performed By: #### E RTPF #### [address] [address] Hand Profiler: Dheeraj Garcia MD Notification: NOT REPORTED Normal [facility] Comment on above: Performed By: #### E RTPF #### [address] [address] Hand Profiler: Dheeraj Garcia MD O2 Device/Flow/% NOT REPORTED Normal [facility] Comment on above: Performed By: #### E RTPF #### [address] [address] Hand Profiler: Dheeraj Garcia MD Oxyhemoglobin NOT REPORTED Normal 95.0-98.0 [facility] Comment on above: Performed By: #### E RTPF #### [address] [address] Hand Profiler: Dheeraj Garcia MD Pco2 Adj'd for Temp. NOT REPORTED Normal 39-55 [facility] Comment on above: Performed By: #### E RTPF #### [address] [address] Hand Profiler: hDeeraj Garcia MD PEEP/CPAP NOT REPORTED Normal [facility] Comment on above: Performed By: #### E RTPF #### [address] [address] Hand Profiler: Dheeraj Garcia MD pH Adjst'd for Temp. NOT REPORTED Normal 7.320-7.420 [facility] Comment on above: Performed By: #### E RTPF #### [address] [address] Hand Profiler: Dheeraj Garcia MD pO2 Adj'd for Temp. NOT REPORTED Normal 30-50 [facility] Comment on above: Performed By: #### E RTPF #### [address] [address] Hand Profiler: Dheeraj Garcia MD Positive Base Excess NOT REPORTED Normal 0.0-2.0 [facility] Comment on above: Performed By: #### E RTPF #### [address] [address] Hand Profiler: Dheeraj Garcia MD PSV NOT REPORTED Normal [facility] Comment on above: Performed By: #### E RTPF #### [address] [address] Hand Profiler: Dheeraj Garcia MD Pt. Position NOT REPORTED Normal [facility] Comment on above: Performed By: #### E RTPF #### [address] [address] Hand Profiler: Dheeraj Garcia MD Set Rate NOT REPORTED Normal [facility] Comment on above: Performed By: #### E RTPF #### [address] [address] Hand Profiler: Dheeraj Garcia MD Site Drawn NOT REPORTED Normal [facility] Comment on above: Performed By: #### E RTPF #### [facility] [employer] [address] [place] [address] Hand Profiler: Dheeraj Garcia MD Staging: NOT REPORTED Normal [facility] Comment on above: Performed By: #### E RTPF #### [facility] [employer] [address] [place] [address] Hand Profiler: Dheeraj Garcia MD Text for Respiratory NOT REPORTED Normal [facility] Comment on above: Performed By: #### E RTPF #### [facility] [address] [place] [address] Hand Profiler: Dheeraj Garcia MD Total Hb NOT REPORTED Normal 12.0-16.0 [facility] Comment on above: Performed By: #### E RTPF #### [facility] [employer] [address] [place] [address] Hand Profiler: Dheeraj Garcia MD Total Rate NOT REPORTED Normal [facility] Comment on above: Performed By: #### E RTPF #### [facility] [employer] [address] [place] [address] Hand Profiler: Dheeraj Garcia MD [place] NOT REPORTED Normal [facility] Comment on above: Performed By: #### E RTPF #### [address] [address] Hand Profiler: Dheeraj Garica MD Type + Screenon 08-31-2020 Type + Screen Sample Expiration 09/02/2020,2359 Arm Band Number BE [id number] ABO/Rh(D) O POSITIVE Antibody Screen NEGATIVE Normal [facility] Comment on above: Performed By: #### T YS #### [address] [address] Hand Profiler: Dheeraj Garcia MD XR SHOULDER LEFT (MIN [...] Delmis Adams MD 08/31/20 Final result Normal [facility] EXAMINATION: TWO XRAY VIEWS OF THE LEFT SHOULDER 08/31/2020 8:25 am COMPARISON: None. HISTORY: ORDERING SYSTEM PROVIDED HISTORY: trauma TECHNOLOGIST PROVIDED HISTORY: trauma Reason for Exam: trauma Acuity: Acute Type of Exam: Initial FINDINGS: The bones and joints are unremarkable without definite fracture, dislocation, abnormal soft tissue calcification or bony destructive lesion [facility] Unremark[facility] three view left shoulder series [facility] [place] Incoming Radiant Results From [employer] - 08/31/2020 8:46 AM EDT EXAMINATION: TWO [...] IMPRESSION: Unremarkable three view left shoulder series [facility] CERVICAL SPINE WO CONTRAS [facility] 08-30-2020 No evidence of an acute fracture or traumatic malalignment involving the cervical spine [place], [place] EXAMINATION: CT OF THE CERVICAL SPINE [...] There is no prevertebral soft tissue swelling. [facility] JHONATAN [place], [facility] Incoming Radiant Results From [employer] - 08/30/2020 11:01 PM EDT EXAMINATION: CT [...] or traumatic malalignment involving the cervical spine [place] CT CHEST ABDOMEN PELVIS W OK NTRASTon 08-30-2020 EXAMINATION: CT OF THE CHEST, [...] aorta. Bones/Soft Tissues: No acute osseous abnormality. [place], [place] Incoming Radiant Results From [employer] - 08/30/2020 11:25 PM EDT EXAMINATION: CT [...] could provide further information as clinically indicated. [place] 1. No acute or traumatic intrathoracic abnormality. 2. No acute or traumatic intra-abdominal abnormality. 3. Dilation of the main pulmonary artery, suggestive of pulmonary artery hypertension. 4. Hepatic steatosis. 5. 1.6 cm left upper pole renal lesion is indeterminate, possibly a cyst. Renal protocol CT or MRI could provide further information as clinically indicated. [place] [facility]: CT OF THE LUMBAR [...] the upper pole of the left kidney. [place], [facility] Incoming Radiant Results From [employer] - 08/30/2020 11:26 PM EDT EXAMINATION: CT [...] or traumatic malalignment involving the lumbar spine. [place] No evidence of an acute fracture or traumatic malalignment involving the lumbar spine. [place] THORACIC SPINE TRAUMA REC ONSTRUCTIONon [...] the lung bases. No pneumothorax is noted. [place], [facility] Incoming Radiant Results From [email or web address] - 08/30/2020 11:29 PM EDT EXAMINATION: CT [...] or traumatic malalignment involving the thoracic spine [place] No evidence of an acute fracture or traumatic malalignment involving the thoracic spine [place] CTA HEAD NECK W CONTRASTon 1 Unremarkable CTA of the neck. 50% stenosis left intracranial ICA, otherwise unremarkable CTA head. [place], pn Incoming Radiant Results From [email or web address] - 08/30/2020 11:48 PM EDT EXAMINATION: CTA [...] left intracranial ICA, otherwise unremarkable CTA head. [place] EXAMINATION: CTA OF THE HEAD AND [...] fluid collection. The durán-white differentiation is maintained. [place] TYPE AND SCREENon 08-30-2020 ABO/Rh Positive [place], [place] Arm Band Number BE [id number] [place], [place] Expiration Date 09/02/2020,2359 [place], [place] Trauma Panelon 08-30-2020 Hubert Test NOT REPORTED [place] Anion gap [Moles/Vol] 10 mmol/L 9 - 17 mmol/L [place] aPTT Coag (Bld) [Time] 37.0 s [place] aPTT Coag (Bld) [Time] 24.4 s [place], [place] Comment on above: IV Heparin Therapy Range: 48.6-77.8 Blood Bank Specimen BILL FOR SERVICES PERFORMED [place] Carboxyhemoglobin 2.2 % 0 - 5 % [place] Comment on above: Reference Range: Non-Smokers 0-2% Average Smoker 2-4% Heavy Smoker <10% Chloride [Moles/Vol] 106 mmol/L 98 - 10 7 mmol/L [place] CO2 [Moles/Vol] 23 mmol/L 20 - 31 mmol/L [place] Creatinine [Mass/Vol] 0.62 mg/dL 0.5 - 0.9 mg/dL [place] Erythrocyte distribution width (RBC) [Ratio] 14.1 % 11.8 - 14.4 % [place] Ethanol [Mass/Vol] mg/dL <10 mg/dL [place] Ethanol percent <0.010 <0.010 % [place] FIO2 INFORMATION NOT PROVIDED [place] GFR >60 >60 mL/min [place], [place] GFR Non- >60 >60 mL/min [place] GFR/1.73 sq M predicted among non-blacks MDRD (S/P/Bld) [Vol rate/Area] [place], [place] Comment on above: Average GFR for 60-6 9 years old: 85 mL/min/1.73sq m Chronic Kidney Disease: <60 mL/min/1.73sq m Kidney failure: <15 mL/min/1.73sq m eGFR calculated using average adult body mass. Additional eGFR calculator available at: http://www.[employer]/multiple_crcl_2012.htm GFR/1.73 sq M predicted among non-blacks MDRD (S/P/Bld) [Vol rate/Area] NOT REPORTED [place], [place] Glucose [Mass/Vol] 186 mg/dL High 70 - 99 mg/dL [place] hCG Qual CANCELLED PER ED NEGATIVE [place], [place] HCO3, Venous 23.6 mmol/L Low 24 - 30 mmol/L [place] Hematocrit (Bld) [Volume fraction] 38.2 % 36.3 - 47.1 % [place] Hemoglobin (Bld) [Mass/Vol] 12.3 g/dL 11.9 - 15.1 g/dL [place] INR Coag (PPP) [Relative time] 1.0 {INR} [place] Comment on above: Therapeutic Range: Moderate Anticoagulant Intensity: INR = 2.0-3.0 High Anticoagulant Intensity: INR = 2.5-3.5 Interpretation and review of laboratory results Abnormal [place] MCH (RBC) [Entitic mass] 28.9 pg 25.2 - 33.5 pg [place] MCHC (RBC) [Mass/Vol] 32.2 g/dL 28.4 - 34.8 g/dL [place] MCV (RBC) [Entitic vol] 89.7 fL 82.6 - 102.9 fL [place] Methemoglobin NOT REPORTED 0 - 1.5 % [place] Mode NOT REPORTED [place] Negative Base Excess, Christo 0.8 mmol/L 0 - 2 mmol/L [place] NOTIFICATION NOT REPORTED [place] NOTIFICATION TIME NOT REPORTED [place] O2 Device/Flow/% NOT REPORTED [place] Oxygen saturation in Blood 98.6 % High 60 - 85 % [place] Oxyhemoglobin NOT REPORTED 95 - 98 % [place] pCO2, Christo 40.6 [place] pCO2, Christo, Temp Adj NOT REPORTED [place] Peep/Cpap NOT REPORTED [place] pH, Christo 7.383 [place], [place] pH, Christo, Temp Adj NOT REPORTED [place] Platelet mean volume (Bld) [Entitic vol] 10.6 fL 8.1 - 13.5 fL [place] Platelets (Bld) [#/Vol] 268 10*3/uL [place] pO2, Christo 143.0 High [place] pO2, Christo, Temp Adj NOT REPORTED [place], [place] Positive Base Excess, Christo NOT REPORTED 0 - 2 mmol/L [place] Potassium [Moles/Vol] 3.5 mmol/L Low 3.7 - 5.3 mmol/L [place] PSV NOT REPORTED [place] PT Coag (PPP) [Time] 10.5 s [place], [place] Pt. Position NOT REPORTED [place] RBC (Bld) [#/Vol] 4.26 10*6/uL 3.95 - 5.1 1 m/uL [place] Sample Site NOT REPORTED [place], [place] Set Rate NOT REPORTED [place] Sodium [Moles/Vol] 139 mmol/L 135 - 144 mmol/L [place] Text for Respiratory NOT REPORTED [place] Total Hb NOT REPORTED 12 - 16 g/dl [place] Total Rate NOT REPORTED [place] Urea nitrogen [Mass/Vol] 11 mg/dL 8 - 23 mg/dL [place] NOT REPORTED [place] WBC (Bld) [#/Vol] 0.0 10*3/uL 0.0 per 10 0 WBC [place] WBC (Bld) [#/Vol] 8.7 10*3/uL [place] PROGRESSon 03-24-2019 Protein mass conc HNO ID: [id number] Author: Kamilah Jean) Kyle Service: ? Author Type: Physician Splicer Operator Type: Progress Notes Filed: 03/25/2019 10:38 AM Note Text: [facility] NOTE NAME: SHEMAR AVILA NO.: [id number] DATE OF SERVICE: 03/24/2019 [facility] DATE OF : 1955 CHIEF COMPLAINT: Skilled followup visit for discharge. Also complains of a cyst on her back. SUBJECTIVE FINDINGS: The patient was seen in her room today at [facility]. She is tentatively scheduled for discharge [...] above. MEDICATIONS: Medications were reviewed in the prison records. [facility] report was run today and [...] DICTATED BY: Kamilah Wright PA-C PG/Niharika JOB# [id number] cc:Viviana Mota Normal [facility] PROGRESSon 03-22-2019 Protein mass conc HNO ID: [id number] Author: Kamilah Wright (Pa) Service: ? Author Type: Physician Splicer Operator Type: Progress Notes Filed: 03/23/2019 11:37 AM Note Text: [facility] NOTE NAME: YEYO AVILACLARE NO.: [id number] DATE OF SERVICE: 03/22/2019 [facility] DATE OF : 1955 CHIEF COMPLAINT: Skilled followup visit for stroke; today complaining of heartburn. SUBJECTIVE FINDINGS: The patient was seen in the therapy department at [facility]. She reports that overall she is [...] SYSTEMS: See above. MEDICATIONS: Reviewed in the prison record. CODE STATUS: Full code. PHYSICAL EXAM: [...] DICTATED BY: Kamilah Wright PA-C PG/Niharika JOB# [id number] cc:[facility] Normal [facility] PROGRESSon 03-19-2019 Protein mass conc HNO ID: [id number] Author: Kamilah Wright (Pa) Service: ? Author Type: Physician Splicer Operator Type: Progress Notes Filed: 03/22/2019 12:17 PM Note Text: [facility] NOTE NAME: SHEMAR AVILA NO.: [id number] DATE OF SERVICE: 03/19/2019 [facility] DATE OF : 1955 CHIEF COMPLAINT: Follow up for stroke and weakness. SUBJECTIVE FINDINGS: The patient was seen in her room at [facility]. She is complaining of a headache [...] SYSTEMS: See above. MEDICATIONS: Reviewed in the prison record. CODE STATUS: Full code. PHYSICAL EXAM: [...] DICTATED BY: Kamilah Wright PA-C PG/Niharika JOB# [id number] cc:[facility] Normal [facility] PROGRESSon 03-17-2019 Protein mass conc HNO ID: [id number] Author: Kamilah Wright (Pa) Service: ? Author Type: Physician Splicer Operator Type: Progress Notes Filed: 03/18/2019 10:28 AM Note Text: [facility] NOTE NAME: SHEMAR AVILA NO.: [id number] DATE OF SERVICE: 03/17/2019 [facility] DATE OF : 1955 CHIEF COMPLAINT: Follow up for stroke and weakness. SUBJECTIVE FINDINGS: The patient was seen in the therapy department at [facility]. She is doing very well with [...] SYSTEMS: See above. MEDICATIONS: Reviewed in the prison record. CODE STATUS: Full code. PHYSICAL EXAM: [...] DICTATED BY: Kamilah Wright PA-C PG/Niharika JOB# [id number] cc:Viviana Mota Normal [facility] PROGRESSon 03-15-2019 Protein mass conc HNO ID: [id number] Author: Kyra Butler Service: ? Author Type: Physician Type: Progress Notes Filed: 03/18/2019 5:07 PM Note Text: [facility] NOTE NAME: YEYO AVILA COLEEN NO.: [id number] DATE OF SERVICE: 03/15/2019 Viviana Mota DATE OF : 1955 New Patient History and Physical HISTORY OF PRESENT ILLNESS: The patient is a 63-year-old female was admitted to us from [facility] in [place] with the diagnoses of complicated headache syndrome [...] was negative. She was then transferred to [facility] where repeat CT scan along with [...] therapy. DICTATED BY: MD NELIDA Larose/Niharika JOB# [id number] cc:[facility] Normal [facility] Vital Signs Date Time Vital Sign Value Performing Clinician Facility 07-13-2023 11:32-0400 Body temperature 97.88 [degF] Zaki Muñoz [facility] 07-13-2023 11:32-0400 Diastolic blood pressure 85 mm[Hg] [facility] 07-13-2023 11:32-0400 Heart rate 76 /min [facility] 07-13-2023 11:32-0400 Respiratory rate 18 /min [facility] 07-13-2023 11:32-0400 SaO2% (BldA) [Mass fraction] 97 % [facility] 07-13-2023 11:32-0400 Systolic blood pressure 147 mm[Hg] [facility] 02-24-2023 13:08-0400 Promise to Return Ronobir FELICIA [facility] 02-24-2023 12:00-0400 Hourly Rounding Ronobir FELICIA [facility] 02-24-2023 12:00-0400 Promise to Return Ronobir FELICIA [facility] 02-24-2023 11:56-0400 Heart rate 62 /min Ronobir FELICIA [facility] 02-24-2023 11:56-0400 SaO2% (BldA) [Mass fraction] 97 % Ronobir FELICIA [facility] 02-24-2023 11:54-0400 Diastolic blood pressure 67 mm[Hg] Ronobir FELICIA [facility] 02-24-2023 11:54-0400 Mean blood pressure 88 mm[Hg] Ronobir FELICIA [facility] 02-24-2023 11:54-0400 Systolic blood pressure 130 mm[Hg] Ronobir FELICIA [facility] 02-24-2023 11:54-0400 Body temperature 97.88 [degF] Ronobir FELICIA [facility] 02-24-2023 11:11-0400 Hourly Rounding Ronobir FELICIA [facility] 02-24-2023 11:11-0400 Promise to Return Ronobir FELICIA [facility] 02-24-2023 11:00-0400 Hourly Rounding Ronobir FELICIA [facility] 02-24-2023 07:50-0400 SaO2% (BldA) [Mass fraction] 98 % Ronobir FELICIA [facility] 02-24-2023 07:43-0400 Heart rate 61 /min Ronobir FELICIA [facility] 02-24-2023 07:43-0400 SaO2% (BldA) [Mass fraction] 98 % Ronobir FELICIA [facility] 02-24-2023 07:41-0400 Body temperature 98.06 [degF] Ronobir FELICIA [facility] 02-24-2023 07:41-0400 Diastolic blood pressure 74 mm[Hg] Ronobir FELICIA [facility] 02-24-2023 07:41-0400 Mean blood pressure 92 mm[Hg] Ronobir FELICIA [facility] 02-24-2023 07:41-0400 Systolic blood pressure 128 mm[Hg] Ronobir FELICIA [facility] 02-24-2023 03:47-0400 Blood Pressure Location Ronobir FELICIA [facility] 02-24-2023 03:47-0400 Body temperature 97.52 [degF] Ronobir FELICIA [facility] 02-24-2023 03:47-0400 Diastolic blood pressure 70 mm[Hg] Ronobir FELICIA [facility] 02-24-2023 03:47-0400 Heart rate 57 /min Ronobir FELICIA [facility] 02-24-2023 03:47-0400 Mean blood pressure 87 mm[Hg] Ronobir FELICIA [facility] 02-24-2023 03:47-0400 Respiratory rate 17 /min Ronobir FELICIA [facility] 02-24-2023 03:47-0400 Systolic blood pressure 120 mm[Hg] Ronobir FELICIA [facility] 02-24-2023 03:06-0400 Mean blood pressure 77 mm[Hg] Ronobir FELICIA [facility] 02-24-2023 03:06-0400 Respiratory rate 16 /min Ronobir FELICIA [facility] 02-24-2023 02:49-0400 Respiratory rate 16 /min Ronobir FELICIA [facility] 02-24-2023 02:04-0400 Body temperature 96.8 [degF] Ronobir FELICIA [facility] 02-24-2023 02:04-0400 Mean blood pressure 68 mm[Hg] Ronobir FELICIA [facility] 02-24-2023 01:09-0400 Body temperature 96.62 [degF] Ronobir FELICIA [facility] 02-24-2023 00:21-0400 Heart rate 58 /min Ronobir FELICIA [facility] 02-24-2023 00:06-0400 gluc 139 mg/dL Ronobir FELICIA [facility] 02-24-2023 00:06-0400 Heart rate 61 /min Sunshine DUARTE [facility] 02-18-2022 13:50-0400 Body height 165.1 cm MD Shaikh Hernandez Work Phone: [facility] 02-18-2022 13:50-0400 Body weight 104.32 kg MD Shaikh Hernandez Work Phone: [facility] 09-01-2020 16:00-0400 BP Diastolic 85 mm[Hg] [facility] [place] [facility] 16:00-0400 BP Systolic 158 mm[Hg] [facility] [place] 09-01-2020 14:12-0400 Pulse (Heart Rate) 72 /min Dankpaula Nunes [facility], [place] 09-01-2020 13:30-0400 Respiratory rate NOT REPORTED Dank Nunes [facility] [place] 09-01-2020 12:27-0400 Body Temperature 97.7 [degF] Dank Nunes [facility] 09-01-2020 12:27-0400 Pulse Oximetry 94 % [facility] [place] 09-01-2020 07:15-0400 Respiratory rate NOT REPORTED HERMELINDO ADKINS [facility] Comment on above: Performed By: #### ERTPF #### [facility] [address] [place] [address] Hand Profiler: Dheeraj Garcia MD 09-01-2020 04:45-0400 Respiratory Rate 15 /min Dank Nunes [facility] 08-31-2020 18:45-0400 BMI (Body Mass Index) 38.72 kg/m2 Dank Rodgers [facility] [place] 08-31-2020 18:45-0400 Body weight 105.55 kg Dank Nunes [facility] [place] [facility] [place] 08-31-2020 18:45-0400 Height 165.1 cm [facility] [place] 08-31-2020 00:34-0400 Respiratory rate NOT REPORTED HERMELINDOWHITNEY ADKINS [facility] Comment on above: Performed By: #### ERTPF #### [facility] [address] [place] [address] Hand Profiler: Dheeraj Garcia MD 08-30-2020 23:08-0400 Respiratory rate NOT REPORTED [facility] [place] Encounters Encounter Date Encounter Type Care Provider Facility Start: 01-14-2024 End: 01-14-2024 ambulatory EHAB [facility] Start: 12-30-2023 End: 12-31-2023 ambulatory Arturo DOLAN [facility] Start: 12-30-2023 End: 12-30-2023 Patient encounter procedure Arturo DOLAN [facility] Start: 12-18-2023 End: 12-19-2023 ambulatory Arturo DOLAN Facility:CD:[id number] Start: 11-13-2023 End: 11-14-2023 ambulatory Arturo DOLAN Facility:CD:[id number] Start: 11-12-2023 End: 11-13-2023 ambulatory Arturo DOLAN Facility:[facility] Start: 07-13-2023 End: 07-13-2023 Emergency department patient visit Zaki Muñoz [facility] Start: 07-13-2023 End: 07-13-2023 [facility] Start: 07-08-2023 End: 07-08-2023 ambulatory ALEXIA CLINE [facility] Start: 04-25-2023 End: 04-25-2023 ambulatory JONO LOPEZ [facility] Start: 04-15-2023 End: 04-15-[address] ROBIN PONCE . Facility: Start: 04-01-2023 End: 04-01-[address] DANK JOHNSON Facility:[facility] Start: 04-01-2023 End: 04-02-[address] DOCTOR CASTELLON Facility:[facility] Start: 03-24-2023 End: 03-25-[address] DOCTOR CASTELLON Facility:[facility] Start: 03-10-2023 End: 03-10-20[facility] Start: 02-24-2023 End: 02-24-2023 Observation Sunshine DUARTE [facility] Start: 02-14-2023 End: 02-14-[address] ROBIN PONCE . Facility:[facility] Start: 10-05-2022 End: 10-05-[address] ZELALEM STACY Facility:[facility] Start: 09-23-2022 ambulatory SHAIKH Enio Farley y:[facility] Start: 02-18-2022 End: 02-18-2022 Patient encounter procedure MD Shaikh Hernandez Work Phone: [facility] [place] Start: 03-21-2021 End: 03-22-2021 ambulatory REBEKA PARDO Facility:[facility] Start: 08-31-2020 End: 09-01-2020 Evaluation and management of inpatient HERMELINDO Janine ADKINS [facility] Start: 08-30-2020 End: 09-01-2020 Evaluation and management of inpatient Dank F Manju [facility] 2C Ortho/Med Surg Comment on above: Injury of head, init ial encounter (Primary Dx) Procedures Date Procedure Procedure Detail Performing Clinician Start: 02-18-2022 MRI of abdomen with contrast MD Shaikh Hernandez Work Phone: Start: 09-01-2020 DISCHARGE PATIENT HERMELINDO ADKINS Start: 09-01-2020 IP CONSULT TO HOME CARE NEEDS HERMELINDO ADIKNS Start: 09-01-2020 PT EVAL AND TREAT HERMELINDO LUCILLE Start: 09-01-2020 INITIATE OXYGEN THERAPY PROTOCOL HERMELINDOWHITNEY ADKINS Start: 09-01-2020 Echo tthrc r-t 2d [...] WEIGHT HERMELINDO LUCILLE Start: 08-31-2020 NURSING COMMUNICATION HERMELINDOWHITNEY ADKINS Start: 08-31-2020 FULL CODE HERMELINDOWHITNEY ADKINS Start: 08-31-2020 INITIATE OXYGEN THERAPY PROTOCOL HERMELINDOWHITNEY ADKINS Start: 08-31-2020 MISCELLANEOUS NURSING CARE ORDER (SPECIFY) HERMELINDOWHITNEY ADKINS Start: 08-31-2020 NIHSS HERMELINDO ADKINS Start: 08-31-2020 NOTIFY PHYSICIAN (SPECIFY) HERMELINDO ADKINS Start: 08-31-2020 NURSING SWALLOW ASSESSMENT HERMELINDO ADKINS Start: 08-31-2020 OT EVAL AND TREAT HERMELINDOWHITNEY ADKINS Start: 08-31-2020 PROVIDE PATIENT EDUCATION MATERIALS HERMELINDOWHITNEY ADKINS Start: 08-31-2020 PT EVAL AND TREAT HERMELINDO ADKINS Start: 08-31-2020 REASON FOR NO CHEMICAL VTE PROPHYLAXIS HERMELINDO ADKINS Start: 08-31-2020 COMMERCIAL HELICOPTER PILOT EVAL AND TREAT HERMELINDOWHITNEY ADKINS Start: 08-31-2020 TOBACCO CESSATION EDUCATION HERMELINDOWHITNEY ADKINS [...] enumeration immune selectj & id fluid spec HERMELINDOWHITNEY ADKINS Start: 08-30-2020 Antibody screen Dankpaula Nunes Start: 08-30-2020 Ct angiography neck w/contrast/noncontrast [...] Start: 09-01-2021 Creatinine measurement Creatinine mo nitoring [place], [place] Start: 09-01-2021 HbA1c (Bld) [Mass fraction] A1C test (Diabetic or Prediabetic) [place], [place] Start: 09-01-2021 Lipid panel Lipid screen [place], [place] Start: 09-01-2021 Potassium monitoring Potassium monit oring [place], [place] Start: 08-31-2020 Annual Wellness Visi t (AWV) Annual Wellness Visit (AWV) [place], [place] Start: 07-18-2020 Influenza vaccination Flu vaccine (# 1) [place], [place] Start: 2007 Screening for malign ant neoplasm of breast Breast cancer screen [place], [place] Start: 2007 Screening for malign ant neoplasm of colon Colon cancer screen colonoscopy [place], [place] Start: 2007 Shingles Vaccine (1 of 2) Shingles V accine (1 of 2) [place], [place] Start: 1978 Screening for malign ant neoplasm of cervix Cervical cancer screen [place], [place] Start: 1976 DTaP/Tdap/Td vaccine (1 - Tdap) DTaP/Tdap/Td vaccine (1 - Tdap) [place] Start: 1975 Diabetic microalbumi betzy test Diabetic microalbuminuria test [place], [place] Start: 1972 HIV screening HIV screen [facility] [place], [place] Start: 1967 Diabetic foot examination Diabetic f oot exam [place], [place] Start: 1967 Diabetic retinal exam Diabetic retin al exam [place], [place] Start: 1957 Hepatitis C screening Hepatitis C sc reen [place], [place] Oxygen therapy [[facility] Data Set] Initiate Oxygen Therapy Protocol Respiratory Care Routine Daily until discontinued starting 08/31/2020 [place] Comment on above: Daily until disconti nued starting 08/31/2020 End: 08-31-2020 Speech and language therapy regime [place], [place] Comment on above: One Time for 1 Occur rences starting 08/31/2020 until 08/31/2020 Immunizations Immunization Date Immunization Notes Care Provider Ronny pathak 08-17-2021 influenza virus vaccine, unspecified formulation Ronobir FELICIA [facility] 02-15-2021 SARS-CoV-2 (COVID-19 ) Ad26 vaccine, recombinant Ronobir FELICIA [facility] 01-15-2021 SARS-CoV-2 (COVID-19 ) Ad26 vaccine, recombinant Ronobir FELICIA [facility] 09-19-2017 pneumococcal conjuga te vaccine, 13 valent Arturo DOLAN [facility] Payers Date Payer Category Payer Medicare [id number] [id number] 1957 Self-pay [id number] 1955 Unknown [id number] 2.16.8 [id number] 1955 Unknown [id number] 2.16.8 [id number] 1955 Unknown [id number] 2.16.84 [id number] 1955 Unknown [id number] 2.16.84 [id number] 1955 Unknown [id number] 2.16.84 [id number] 1955 Unknown [id number] 2.16.84 0.1.032534.3.579.2.593 1955 Unknown [id number] 2.16.84 0.1.949803.3.579.2.593 1955 Unknown [id number] 2.16.84 0.1.798884.3.579.2.593 1955 Unknown [id number] 2.16.84 0.1.719880.3.579.2.593 1955 Unknown [id number] 2.16.8 40.1.805612.3.579.2.727 1955 Unknown [id number] 2.16.8 40.1.233283.3.579.2.727 1955 Unknown [id number] 2.16.8 40.1.844989.3.579.2.727 1955 Unknown [id number] 2.16.8 [id number] 1955 Unknown [id number] 2.16.8 [id number] Self-pay Self Pay [id number] Social History Date Type Detail Facility Tobacco smoking stat [facility] Unknown if ever smoked [place], [place] Sex Assigned At Not on file [place] Start: 03-19-2021 Tobacco smoking stat us NHIS Ex-smoker (finding) [facility] Start: 1955 Sex Assigned At Female [facility] Start: 02-24-2023 End: 11-12-2023 Tobacco smoking status Heavy tobacco smoker (finding) [facility] Comment on above: 1 pack a day Sex Assigned At Female [facility] Tobacco smoking status Never [facility] Comment on above: 1 pack a day Functional Status Date Assessment Result Facility 12-30-2023 Functional Status N/A [facility] 07-13-2023 Functional Status N/A [facility] 02-24-2023 Functional Status No [facility] 02-24-2023 Functional Status [facility] Clinical Notes 02-24-2023 to 01-14-2024 Note Date & Type Note Facility 01-14-2024 Note [facility] Note Chief Complaint: Patient [...] Iodinated contrast media, Aspirin, Atorvastatin, Cat/feline products, Essex, Topiramate, Blue dye, Iodine, and Lisinopril Medications [...] 2010 hemishield graft (more content not included)... [facility] 12-30-2023 Note [id number] [facility] 12-30-2023 Hospital Discharge instructions Patient Education [...] Address: [facility] [address], [place] [address]- Business (1) When:03/29/2024 11:56:00 Comments:With a stone metabolic workup [facility] 12-30-2023 Note Custom Cystoscopy with Stent Removal [...] you have a fever over 100 degrees. [facility] 12-03-2023 Note RCRI=3 points Class IV Risk 15.0 % 30-day risk of , HI, or cardiac arrest PMH- CAD s/p Stent, [...] you Alexia Cline NP Division of Cardiology, [facility]- [phone] Pager- [phone] Email- [email or web address] 07-13-2023 Hospital Discharge instructions Patient [...] to strengthen the arm. General instructions Take sqee-rge-jyopaqg and prescription medicines only as told by [...] provider. Document Revised: 07/19/2022 Document Reviewed: 07/19/2022 [employer] Patient Education 2022 [employer]. 07/13/2023 12:19:06 Muscle Strain Muscle Strain A [...] is not too tight. General instructions Take thez-zws-exxuvsx and prescription medicines only as told by [...] provider. Document Revised: 01/21/2022 Document Reviewed: 01/21/2022 [employer] Patient Education 2022 [employer]. Follow Up Care 07/13/2023 11:23:52 With:Robin Ponce Address: [address] [place], [place] [address]- Business (1) When:07/16/2023 12:02:34 [facility] 07-13-2023 Evaluation + Plan note Extrac sherita from: Title:ED Note Author:Mathew Montana PA-C te:07/13/23 Shoulder pain (M25.519: Pain in unspecified shoulder) Ordered: acetaminophen-oxycodone, 1 tab(s), Oral, q6hr as needed for pain for 3 day(s), 15 tab(s), Refill(s) 0, [id number], 165, cm, 07/13/23 11:34:00 EDT, Height/Length Dosing, 95.5, kg, 07/13/23 11:34:00 EDT, Weight Dosing [facility]08-22-2023 NoteWill increase imdur to 60 mg and d/w pt that if migraines worsen she can reduce back to 30 mg [facility] Note Recommended [place] to [place] NoteCoronary artery disease is stable Continue GDMT- Coreg, simvastatin, imdur continue risk factor modifications- heart healthy diet, regular exercise as tolerated and continue all medications.[facility] 07-08-2023 NoteNYHC II- currently LVEF normal 60%- recovered Mild MR and TV regurg Normal rt sided pressure Continue current med regime. Coreg, irbesartan, simvastatin, [facility]ur[facility] 07-08-2023 NoteHypertension is well controlled, Continue all current medsUniversity [facility]. [facility]-22-2023 NoteUTP CARDIOLOGY PROGRESS NOTE HPI: Yeyo Avila [...] States pain in groin Cat/Feline Products Hives Essex Hives Topiramate Hives and Other Blue Dye [...] mononitrate ER (I (more content not included)... [facility]06-09-2023 NotePatient here for follow up Holter monitor and stress test. Also had labs a few weeks ago. Review of Systems Cardiovascular: Positive for chest pain, dyspnea on exertion and near-syncope (with bending over). Neurological: Positive for dizziness and light-headedness. All other systems reviewed and are negative.[facility] 04-25-2023 NoteCardiology Clinic Note Subjective Yeyo [...] States pain in groin Cat/Feline Products Hives Essex Hives Topiramate Hives and Other Blue Dye [...] mg sublingual tablet, Dis (more content not included)...[facility] 03-10-2023 NoteCardiology Clinic Note Subjective Yeyo [...] recurrent major depressive disorder, without psychotic features ([facility]) Stroke-like symptoms Status post percutaneous transluminal [...] States pain in groin Cat/Feline Products Hives Essex Hives Topiramate Hives and Other Blue Dye [...] systolic function. No significant (more content not included)...[facility] 02-24-2023 Evaluation + Plan noteExtracted from: Title:Discharge Note Author:PERLA PRADO, Leann D ate:02/24/23 Discharge To, Anticipated II - [...] PRN With When Contact Information Robin Kris [address] [place] [address]- Business (1) Additional Instructions: Office is closed for lunch between Noon and 1 p.m. Please contact office for follow up appointment. Thank you! SHAIKH MARY Within 5 to [address] [place] [address] [employer] (1) Additional Instructions: Not a patient. Syncope, [id number] Extracted from: Title:APSO Note Author:PERLA PRADO, Betyanefo Date: 67-year-old obese female with history of [...] heart monitor. Check orthostatic vital signs. Ordered: [facility] Care/Day Moderate 35 Minutes [id number] 2. RAMA (acute kidney injury) (N17.9: Acute kidney failure, unspecified) Acute kidney injury secondary to ATN from dehydration and antihypertensives. Resolved. Treated with IV fluid. Ordered: [facility] Care/Day Moderate 35 Minutes [id number] 3. Hypokalemia (E87.6: Hypokalemia) Secondary to poor oral intake. Potassium level improving to 3.4. We will give patient additional potassium chloride. Ordered: potassium chloride, 40 mEq = 2 tab(s), Tab-ER, Oral, Once, Stop date 02/24/23 10:00:00 EDT, Routine, Start date 02/24/23 10:00:00 EDT, 02/24/23 9:46:00 EDT [facility] Care/Day Moderate 35 Minutes 80003 4. Diabetes mellitus (E11.9: Type 2 diabetes mellitus without complications) Continue sliding scale insulin. Ordered: [facility] Care/Day Moderate 35 Minutes [id number] 5. High cholesterol (E78.00: Pure hypercholesterolemia, unspecified) On Lipitor at home. Ordered: [facility] Care/Day Moderate 35 Minutes [id number] 6. Hypertension (I10: Essential (primary) hypertension) Blood pressure on the low side of normal. 7. CAD (coronary artery disease) (I25.10: Atherosclerotic heart disease of ramona coronary artery without angina pectoris) Continue on aspirin, Plavix. 8. Aortic aneurysm (I71.9: Aortic aneurysm of unspecified site, without rupture) Status post surgery. 9. Obese (E66.9: Obesity, unspecified) Recommend therapeutic lifestyle modification changes. 10. On deep vein thrombosis (DVT) prophylaxis (Z79.899: Other detention (current) drug therapy) Heparin. Disposition: Home soon pending physical therapy evaluation. I discussed the diagnosis and plan of care with the patient at the bedside. Moderate level of MDM based on addressing above issues. This documentation was transcribed using voice recognition software. Several attempts were made to ensure accuracy. However inadvertent computerized guest house manager errors may be present. Leann Gunter. Hospitalist. [...] deep vein thrombosis (DVT) prophylaxis (Z79.899: Other detention (current) drug therapy) SCD, heparin Orders: acetaminophen, [...] XR Spine Lumbosacral 2 or 3 Views [facility]04-10-2023 Hospital Discharge instructions Patient Education 02/24/2023 11:49:54 Syncope, Rtgc-by-Mucz Syncope Syncope is when you pass out [...] pee (urine) pale yellow. General instructions Take jokz-qpv-oshyyxk and prescription medicines only as told by [...] 04/21/2009 Document Revised: 12/16/2018 Document Reviewed: 12/16/2018 [employer] Patient Education 2020 [employer] Follow Up Care 02/24/2023 00:01:37 With:Robin Ponce Address: [address] [place] [address] [place] [address]- Business (1) When: Unknown Comments:Office is closed for lunch between Noon and 1 p.m. Please contact office for follow up appointment.Thank you! With:SHAIKH MARY Address: [address] [place], [place] [address] [address] Business (1) When:5 to 7 days Comments:Not a patient. [facility] noteNo assessment information available [facility] Work Phone: Hospital course Narrative No data available for this section [facility] note No data available for this section [facility] Summary Purpose Family History No Family History [...] Assisted Dressing Independent Toileting Assisted Feeding Independent Thrill Performer Independent Med Delivery whole Wound Care Documentation [...] Discharging to Facility/ Agency Name: [facility] FAX [address] [address] [facility] [address] Address: Phone: Fax: Dialysis Facility (if applicable) Name: Address: Dialysis Schedule: Phone: Fax: Baton Twirler/Care Giver signature: EDT PHYSICIAN SECTION Prognosis: Good Condition at Discharge: Stable Rehab Potential (if transferring to Rehab): {Prognosis:[id number]} Recommended Labs or Other Treatments After Discharge: [...] called to the trauma nurse line at [phone] and please leave a message. Trauma is a life-threatening condition. Your doctor will want to closely monitor you. Be sure to goto all of your appointments. * Attachments The following attachments cannot be sent through Care Everywhere. 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 pt unable to identify when sign writer hand was touching L UE (on elbow and [...] Plan Times per week: 3-5x/wk AM-PAC Score [facility] Inpatient Daily Activity Raw Score: 16 [...] activity in order to increase coordination and mh teacher strength to L hand Short term goal 6: dem SBA during functional transfers/functional mobility with LRD, as needed Therapy Time Individual Concurrent Group Co-treatment Time In 1316 Time Out 1404 Minutes 48 Variance: 40 Debi Marques OTR/L * Taya Bergeron SLP - 09/01/2020 11:39 AM EDT Speech Language Pathology Facility/Department: [address] ORTHO/MED SURG Initial Speech/Language/Cognitive Assessment NAME: [...] the bathtub. +LOC, on Plavix. Taken to [place] where a stroke alert was initiated. CT head at 6pm today at [place] did not show intracranial bleed. Transferred to [place] for trauma and neurology work-up. Upon arrival, Pt without neurological deficit, GCS 15, c/o REYNA. Pt deemed hemodynamically stable and was sent to CT. Pain: Pain Assessment Pain Assessment: Faces Pain Level: 0 Assessment: Pt presents with mild-moderate cognitive deficits characterized by difficulty with immediate and short-term memory, verbal reasoning skills, and word associations. Pt. PALA, which may haveaffected results of evaluation. Multiple repetitions provided throughout evaluation. Pt. Presents with no dysarthria, no O/M deficits at this time. ST to follow up and provide treatment to address noted deficits. Education provided. Recommendations: Requires COMMERCIAL HELICOPTER PILOT Intervention: Yes Duration/Frequency of Treatment: 3-5X/week D/C [...] 1126 Minutes 12 Completed by: Debi Andrade [employer] Salesperson Clinician Cosigned By: Taya Bergeron M.A.CCC/COMMERCIAL HELICOPTER PILOT 09/01/2020 11:40 AM * Caleb Jefferson MD [...] 09/01/2020 4:00 PM * Nader Petit, AIR INTERCEPT CONTROLLER - 09/01/2020 10:02 AM EDT Physical Therapy Facility/Department: [address] ORTHO/MED SURG Daily Treatment Note NAME: [...] Safe use of RW Barriers to Learning: PALA REQUIRES PT FOLLOW UP: Yes Activity Tolerance [...] Timed Code Treatment Minutes: 40 Minutes AIR INTERCEPT CONTROLLER returned to pt's room to have her attempt stair management, to return home safely Individual Individual Time In 1140 Time Out 1205 Minutes 25 Timed Code Treatment Minutes: 9 Minutes (a doctor interrupted PT, to assess the pt) Nader Petit, AIR INTERCEPT CONTROLLER * Debi Mraques OT - 09/01/2020 8:34 AM EDT Occupational [...] 08/31/2020 3:09 PM EDT Physical Therapy Facility/Department: [facility] ED Initial Assessment NAME: Yeyo Avila [...] Ambulation Assistance: Independent Transfer Assistance: Independent Active Delivery Department Supervisor: Yes Mode of Transportation: Car Occupation: Retired [...] section and content) DATE CREATED AUTHOR 04/06/2019 [facility] DATE CREATED AUTHOR AUTHOR'S ORGANIZ ATION 09/12/2020 [facility] DATE CREATED AUTHOR AUTHOR'S ORGANIZ ATION 03/28/2021 [facility] DATE CREATED AUTHOR AUTHOR'S ORGANIZ ATION 03/03/2022 [facility] DATE CREATED AUTHOR AUTHOR'S ORGANIZ ATION 04/25/2023 [facility] DATE CREATED AUTHOR AUTHOR'S ORGANIZ ATION 02/16/2024 [facility] DATE CREATED AUTHOR AUTHOR'S ORGANIZ ATION 03/01/2024 [facility] Reason for Visit (unrecogniz ed section and content) Reason Comments Fall Trauma Status Reason Specialty Diagnoses / Procedures Referre d By Contact Referred To Contact Diagnoses Syncope and collapse Procedures Syncope and collapse Hermelindo Adkins MD [facility] [id number], [id number] [place] [address] [facility] Care Teams (unrecognized sec tion and [...] BE BASED ON THE PRIMARY CLINICAL RECORDS. [employer] provides no warranty or guarantee of the accuracy or completeness of information in this document.
[2024-04-23 11:06] LABS: Basophils Absolute Auto 0.1 10^3/uL (0.0-0.1); Basophils Percent Auto 1.3 % (0.2-2.0); Eosinophils Absolute Auto 0.5 10^3/uL (0.0-0.7); Eosinophils Percent Auto 5.1 % (0.9-7.0); Hematocrit 42.1 % (36.0-48.0); Immature Granulocytes Abs Auto 0.04 10^3/uL (0.00-0.03); Immature Granulocytes Pct Auto 0.4 % (0.0-0.5); Lymphocytes Absolute Auto 2.5 10^3/uL (1.2-3.8); Lymphocytes Percent Auto 25.1 % (20.5-60.0); Mean Corpuscular HGB Conc 33.3 g/dL (29.9-35.2); Mean Corpuscular Hemoglobin 30.6 pg (26.7-34.0); Mean Corpuscular Volume 91.9 fL (81.0-99.0); Mean Platelet Volume 10.6 fL (9.5-13.5); Monocytes Absolute Auto 0.6 10^3/uL (0.3-0.8); Neutrophils Absolute Auto 6.1 10^3/uL (1.4-6.5); Neutrophils Percent Auto 62.1 % (43.0-75.0); Platelet Count 256 10^3/uL (150-450); Red Blood Count 4.58 10^6/uL (4.20-5.40); Red Cell Distribution Width 12.6 % (11.0-15.0); White Blood Count 9.8 10^3/uL (4.0-11.0)
[2024-04-23 11:28] LABS: INR 1.03; Partial Thromboplastin Time 27.9 sec (22.3-36.2); Prothrombin Time 10.9 sec (9.0-11.6)
[2024-04-23 13:17] LABS: Alanine Aminotransferase 21 U/L (14-59); Albumin Globulin Ratio 1.1; Alkaline Phosphatase 94 U/L (46-116); Aspartate Amino Transferase 14 U/L (15-37); BUN Creatinine Ratio 11.4; Bilirubin Total 0.7 mg/dL (0.2-1.0); Calcium 8.9 mg/dL (8.5-10.1); Carbon Dioxide 24.9 mmol/L (21.0-32.0); Chloride 102 mmol/L (98-107); Estimated GFR (African America >60 (>=60); Estimated GFR (Non-African Ame 52 (>=60); Globulin 3.8 g/dL; Glucose 220 mg/dL (74-106); Potassium 3.9 mmol/L (3.5-5.1); Sodium 140 mmol/L (136-145); Total Protein 7.8 g/dL (6.4-8.2)
== END 2024-04-23 10:38 | disposition home or self-care (01) ==
LOC: LAB 10:42
PROVIDERS: PCP Family Medicine; Visit Provider Family Medicine
DX: K62.5 Hemorrhage of anus and rectum (principal)
CPT/HCPCS: 36415; 80053; 85025; 85610; 85730

== ENCOUNTER 2024-06-15 07:06 | Outpatient (OUT) | payer MEDICARE, SELFPAY | END 2024-06-15 07:07 | disposition home or self-care (01) | LOC: PST 07:07 | PROVIDERS: PCP Family Medicine; Visit Provider Surgery | DX: Z01.818 Encounter for other preprocedural examination (principal); K62.5 Hemorrhage of anus and rectum ==

== ENCOUNTER 2024-06-23 08:47 | Day surgery (SDC) | payer MEDICARE, SELFPAY ==
--- NOTE | 2024-06-23 | OP_ITS ---
OPERATION DATE: 06/23/2024 PREOPERATIVE DIAGNOSIS: Intermittent rectal bleeding. POSTOPERATIVE DIAGNOSIS: Normal colonoscopy to cecum, except for prominent rectal veins. PROCEDURE: Colonoscopy to cecum. SURGEON: Dom Peoples M.D. ANESTHESIA: Monitored anesthesia care. ESTIMATED BLOOD LOSS: Zero. INDICATIONS AND CONSENT: Patient is a 68-year-old female presents for intermittent rectal bleeding. Indications, risks, benefits, alternatives of proceeding with colonoscopy under monitored anesthesia care were explained extensively to the patient, including the risks of bleeding, colon perforation or anesthetic complications. All of her questions were answered. Informed consent was obtained. PROCEDURE: Patient brought to the operating room, placed in the left lateral decubitus position. Monitored anesthesia care was provided. Rectal exam was performed which showed no masses or blood. The scope was inserted into the anal canal. Under direct visualization was advanced. With the aid of abdominal compression, it was advanced to the cecum where cecal markings were clearly identified. There was noted to be a good prep. Upon withdrawal of the scope, mucosal surfaces were carefully examined. There were no mass lesions or polyps. No inflammatory changes or ulcerations. No significant diverticulosis. There was noted to be some redundancy of the colon. The scope was retroflexed in the anal canal. There were noted to be some prominent rectal veins. No significant hemorrhoidal disease. No old or new blood within the rectum or inflammation. Scope was then withdrawn. Patient tolerated procedure well. Follow up colonoscopy should be in 10 years for screening. CC: Danilo Mclain M.D. VIRGIL
[2024-06-23 09:20] VITALS: BP 158/85; PULSE 62; TEMP 36.2; O2SAT 95; BMI 35.1
[2024-06-23 09:42] LABS: Glucometer 152 mg/dL (74-106)
[2024-06-23] MEDS: LACTATED RINGER'S SOLUTION 1,000 ML 50 ML IV (09:51)
[2024-06-23 11:04] VITALS: BP 148/77; PULSE 66; TEMP 36.2; O2SAT 95
[2024-06-23 11:19] VITALS: BP 139/67; PULSE 62; O2SAT 93
[2024-06-23 11:34] VITALS: BP 165/75; PULSE 68; O2SAT 97
[2024-06-23 11:47] VITALS: BP 152/69; PULSE 58; O2SAT 96
== END 2024-06-23 11:47 | disposition home or self-care (01) ==
PROVIDERS: PCP Family Medicine; Visit Provider Surgery
PROC: (CPT 45378; principal; 2024-06-23 10:00)
DX: K62.5 Hemorrhage of anus and rectum (principal); Z90.710 Acquired absence of both cervix and uterus; J44.9 Chronic obstructive pulmonary disease, unspecified; R06.00 Dyspnea, unspecified; E78.5 Hyperlipidemia, unspecified; I10 Essential (primary) hypertension; I25.10 Atherosclerotic heart disease of native coronary artery without angina pectoris; Z95.5 Presence of coronary angioplasty implant and graft; I08.1 Rheumatic disorders of both mitral and tricuspid valves; I69.351 Hemiplegia and hemiparesis following cerebral infarction affecting right dominant side; K21.9 Gastro-esophageal reflux disease without esophagitis; E11.40 Type 2 diabetes mellitus with diabetic neuropathy, unspecified; Z79.84 Long term (current) use of oral hypoglycemic drugs; Z79.4 Long term (current) use of insulin
CPT/HCPCS: 45378; 36415; 82948; J2704

== ENCOUNTER 2024-08-31 09:26 | Outpatient (OUT) | payer MEDICARE, SELFPAY ==
--- NOTE | 2024-08-31 09:28 | MM_ITS ---
Patient Name: MARTHA AVILA MR#: [id number] : 1955 Exam Date: 08/31/2024 Ordering Doctor: DR Danilo Mclain . RADIOLOGY REPORT PROCEDURE: MM TOMOSYNTHESIS SCREENING BI COMPARISON: MG MAMM SCREEN 3D FELY CAD, 01/04/2022. MM TOMOSYNTHESIS SCREENING BI, 08/27/2023. INDICATIONS: Screening Calculator Name NCI Breast Cancer Risk Assessment Tool 5 Year Breast Cancer Risk 1.50% Lifetime Breast Cancer Risk 5.40% Personal Breast Cancer No Personal Ovarian Cancer No Treatments excision of cancerous lesion from bladder wall Family Cancers Grandmother-paternal with breast cancer at age ~75. LOCATION: [facility] BREAST COMPOSITION: The breasts are heterogeneously dense,which may obscure small masses. FINDINGS: DIAGNOSTIC CATEGORY 2--BENIGN FINDING. NO CHANGE FROM COMPARISON. Scattered benign-appearing calcifications are present. Scattered benign-appearing lymph nodes are present. RIGHT BREAST: No significant suspicious finding. LEFT BREAST: No significant suspicious finding. RECOMMENDATIONS: ROUTINE MAMMOGRAM AND CLINICAL EVALUATION IN 12 MONTHS. PLEASE NOTE: A NORMAL MAMMOGRAM DOES NOT EXCLUDE THE POSSIBILITY OF BREAST CANCER. A CLINICALLY SUSPICIOUS PALPABLE LUMP SHOULD BE BIOPSIED. Dictated by: Pineda Robin MD on 08/31/2024 at 13:47 Approved by: Pineda Robin MD on 08/31/2024 at 13:48
== END 2024-08-31 09:27 | disposition home or self-care (01) ==
LOC: MAMMO 09:26
PROVIDERS: PCP Family Medicine; Visit Provider Family Medicine
DX: Z12.31 Encounter for screening mammogram for malignant neoplasm of breast (principal); Z80.3 Family history of malignant neoplasm of breast
CPT/HCPCS: 77063; 77067

== ENCOUNTER 2025-02-05 08:01 | Outpatient (OUT) | payer OTHER, SELFPAY ==
--- OUTSIDE RECORDS SUMMARY | 2025-02-05 08:06 | XMS_ITS | CCD ---
Author Organization [facility] Care Team Providers Care Director Part Name Role Phone Robin Ponce Primary Care Provider HERMELINDO ADKINS Consulting Unavailable ROBIN PONCE Primary Care Unavailable HERMELINDO ADKINS Attending Unavailable HERMELINDO ADKINS Admitting Unavailable GENEVIEVELONDON Consulting Unavailable ELTAJES, EHAB A Attending Unavailable CONCEPCIÓN EHAB A Admitting Unavailable ROBIN PONCE Referring Unavailable ROBIN PONCE Primary Care Unavailable MD Darby Hernandez Primary Care Provider MD Ese Tan Attending Provider [phone] SHAIKH HERNANDEZ Primary Care Physician DR DANK JOHNSON Admitting UnavailDR ROBIN Marie Primary Care Unavailable DR DANK JOHNSON Attending UnavailREYNA Ni Consulting UnavailLISSETT Simon Consulting Unavailable DR ROBIN SEGOVIA Primary Care Unavailable FAVIO Bingham, JEFFRY Admitting Unavailable SHELLEY II, TIMOTEO Consulting Unavailable TAMDONN ., JEFFRY Attending Unavailable TAMDONN ., JEFFRY Consulting Unavailable FILUTZE, CHITO Consulting Unavailable CASANDRA HERNANDEZIKH H Admitting Unavailable [...] Consulting Unavailable MISC, DR SONI Attending Unavailable DANIELC, DR SONI Consulting Unavailable DANIELC, DR SONI Admitting Unavailable MARY, SHAIKH Enio Primary Care Unavailable REGIS, DR ZELALEM Bates Admitting Unavailable MARY, H Primary Care Unavailable REGIS, DR ZELALEM Bates Attending Unavailable REGIS, DR ZELALEM Bates Consulting Unavailable MIKAEL GUZMAN Consulting Unavailable Robin Ponce Primary Care Physician JONO LOPEZ Attending Unavailable REBEKA PARDO Attending Unavailable ALEXIA CLINE Attending Unavailable JONO LOPEZ Attending Unavailable Ese Tan Admitting Unavailable Ese Tan Attending Unavailable Shaikh Hernandez Primary Care Unavailable Dom MENDEZ Attending Unavailable Arturo DOLAN Attending Unavailable Dom MENDEZ Attending Unavailable Allergies Allergy Classification Reported Allergen(s) Allergy Type Date of Onset Reaction(s) Facility Angiotensin Converting Enzyme (RYANNE) Inhibitors (1 source) Lisinopril Drug Allergy 011 [facility] Anti-Epileptic Agents (1 source) topiramate Drug Allergy 011 [facility] Berries (1 source) [place] Food Allergy [facility] Cats (1 source) Cat Animal Allergy (Dander) [facility] Dextroamphetamine (1 source) Dextroamphetamine Drug Allergy [facility] Iodine (and Iodine containting drugs) (1 source) Iodine (And Iodine Containting Drugs) Drug Allergy [facility] Unclassified (2 sources) BLUE DYE; Translations: [BLUE DYE] Drug allergy (disorder) [facility] (8 sources) Aspirin; Translations: [Aspirin] Drug Allergy 016 Nausea [facility] Comment on above: uncoded aspirin (7 sources) atorvastatin; Translations: [atorvastatin] Drug Allergy 014 Muscle pain (finding) [facility] (10 sources) Lisinopril; Translations: [Lisinopril] Drug Allergy Edema of pharynx (disorder) [facility] (3 sources) Morphine; Translations: [morphine] Drug Allergy [facility] (5 sources) strawberry allergenic extract; Translations: [[place]] Drug Allergy [address] [facility] (7 sources) topiramate; Translations: [topiramate] Drug Allergy Urticaria (disorder), Nausea (finding) [facility] (2 sources) cat dander; Translations: [cat dander] Allergy to substance [facility] (3 sources) Iodinated Contrast Media; Translations: [IODINATED CONTRAST MEDIA] Allergy to substance [facility] (5 sources) Contrast media; Translations: [Contrast Dye] Drug allergy Urticaria (disorder) [facility] (5 sources) [place]; Translations: [Strawberries] Drug allergy Urticaria (disorder) [facility] (5 sources) SUMAtriptan; Translations: [sumatriptan] Drug Allergy Nausea (finding) [facility] (1 source) Acetaminophen / Aspirin / Caffeine Drug Allergy [facility] (2 sources) Dextroamphetamine; Translations: [Lipitor] Drug Allergy [facility] (2 sources) Iodine (And Iodine Containting Drugs) Drug allergy (disorder) [facility] (1 source) Ketorolac Drug Allergy [facility] (1 source) Plasmin Drug Allergy [facility] (3 sources) topiramate; Translations: [Topamax] Drug Allergy [facility] (2 sources) Dhe Drug allergy (disorder) [facility] (2 sources) Cat/Feline Product Derivatives Drug allergy (disorder) 009 [facility] (1 source) Iodine; Translations: [IODINE] Drug Allergy [facility] (1 source) CAT/FELINE PRODUCTS; Translations: [CAT/FELINE PRODUCTS] Propensity to adverse reactions to drug (disorder) 016 [facility] Medications Current Medications Medication Drug [...] by mouth every six hours as needed zgbrqozmjo-dcocsjsrofjsu-visuzbzg (DAISY CET, ESGIC) 50-325-40 MG per tablet [...] for 3 day(s), 15 tab(s), Refill(s) 0, [facility]/pharmacy #[id number], 165, cm, 07/13/23 11:34:00 EDT, Height/Length [...] irst dose on Erinn 08/31/20 at 2100 12 hr buPROPion hydrochloride 150 mg extended release oral tablet (1 source) Aminoketone Start: 05-05-2024 take 1 tablet by mouth once daily buPROPion 150 mg ER Tab 150 mg = 1 tab(s), Oral, Daily, Refills(s) 0 Start Date: 05/05/24 Status: Ordered carvedilol 25 mg oral tablet (5 sources) alpha-Adrenergic Grabiel, beta-Adrenergic Grabiel Start: 05-05-2024 take 1 tablet by mouth twice daily carvedilol 25 mg Tab 25 mg = 1 tab(s), Oral, BID, Refills(s) 0 Start Date: 05/05/24 Status: Ordered Start: 10-24-2018 take 25 mg by mouth twice samir y Carvedilol Active 25 MG PO Twice daily October 24, 2018 9:44pm Start: 07-06-2015 take 1 tablet by ray twice daily Coreg 12.5 mg Tab 12.5 [...] at 1400 clopidogrel 75 mg oral tablet (7 sources) P2Y12 Platelet Inhibitor Start: 07-06-2015 take 1 tablet by mouth once daily Plavix 75 mg Tab 75 mg = 1 tab(s), Oral, Daily, Refills(s) 0 Start Date: 07/06/15 Status: Ordered diphenhydrAMINE hydrochloride 25 mg oral tablet (4 sources) Histamine-1 Receptor Antagonist Start: 05-05-2024 take 1 tablet by mouth once daily at bedtime as needed for sleep Benadryl 25 mg Tab = 1 tab(s), Oral, Once a day (at bedtime), PRN as needed for sleep, Refills(s) 0 Start Date: 05/05/24 Status: Ordered Start: 08-31-2020 End: 08-31-2020 diphenhydrAMINE (BENADRYL) i njection 12.5 mg Start: 08-30-2020 End: 09-02-2020 diphenhydrAMINE (BENADRYL) i njection 25 mg docusate sodium 100 mg oral capsule (2 [...] capsule by mouth daily 0 08/22/2020 Active duloxetine 60 mg Cap-DR (1 source) Start: 05-05-2024 take 1 capsule by mouth once daily duloxetine 60 mg Cap-DR = 1 cap(s), Oral, Daily, Refills(s) 0 Start Date: 05/05/24 Status: Ordered 0.4 ml enoxaparin sodium 100 mg/ml prefilled syringe (1 source) Low Molecular Weight Heparin Start: 08-31-2020 inject 40 mg by subcutaneous injection once daily 40 mg, Subcutaneous, DAILY, First dose on Erinn 08/31/20 at 0900 glimepiride 4 mg oral tablet (2 sources) Sulfonylurea Start: 05-05-2024 take 1 tablet by mouth once daily glimepiride 4 mg Tab 4 mg = 1 tab(s), Oral, Daily, Refills(s) 0 Start Date: 05/05/24 Status: Ordered Start: 10-26-2018 take 2 mg by mouth once daily Glimepiride Active 2 MG PO Daily October 26, 2018 6:26pm hydrOXYzine pamoate 25 mg oral capsule (3 sources) Antihistamine Start: 11-12-2023 hydrOXYzine pa moate 25 mg Cap Refills(s) 0 Start Date: 11/12/23 Status: Ordered Start: 09-01-2020 take 25 mg by mouth four times daily as needed for anxiety 25 mg, Oral, 4 TIMES DAILY PRN, Anxiety, Starting 09/01/20 at 1321 Start: 06-01-2020 take 1 capsule by mo [facility] four times daily as needed for anxiety hydrOXYzine (VISTARIL) 25 MG capsule Take 1 capsule by mouth 4 times daily as needed for Anxiety 0 06/01/2020 Active 3 ml insulin isophane, human 70 unt/ml / insulin, regular, human 30 unt/ml pen injector (2 sources) Insulin Start: 11-12-2023 NovoLIN 70/30 FlexPen subcutaneous suspension per sliding scale, Refills(s) 0 Start Date: 11/12/23 Status: Ordered Start: 11-12-2023 NovoLIN 70/30 FlexPen subcutaneous suspension Refills(s) 0 Start Date: 11/12/23 Status: Ordered iopamidol (ISOVUE-370) 76 % injection 70 mL (1 source) Start: 08-30-2020 iopamidol (ISOVUE-370) 76 % injection 70 mL irbesartan 150 mg oral tablet (2 sources) Angiotensin 2 Receptor Grabiel Start: 05-05-2024 take 1 tablet by mouth once daily irbesartan 150 mg Tab 150 mg = 1 tab(s), Oral, Daily, Refills(s) 0 Start Date: 05/05/24 Status: Ordered Start: 08-14-2020 take 1 tablet by ray once daily irbesartan (AVAPRO) 150 MG tablet Take 1 tablet by mouth daily 0 08/14/2020 Active 24 hr isosorbide mononitrate 30 mg extended release oral tablet (2 sources) Nitrate Vasodilator Start: 05-05-2024 take 1 tablet by mouth twice daily isosorbide mononitrate 30 mg ER Tab 30 mg = 1 tab(s), Oral, BID, Refills(s) 0 Start Date: 05/05/24 Status: Ordered Start: 11-12-2023 isosorbide mon onitrate 60 mg ER Tab Refills(s) 0 Start Date: 11/12/23 Status: Ordered isosorbide dinitrate 30 mg oral tablet (2 sources) Nitrate Vasodilator Start: 07-06-2015 take 30 mg by mouth once daily isosorbide dinitrate 30 mg, Oral, Daily, Refills(s) 0 Start Date: 07/06/15 Status: Ordered losartan potassium 50 mg oral tablet (1 source) Angiotensin 2 Receptor Grabiel Start: 09-01-2020 losartan (COZAAR) tablet 50 mg metoclopramide 10 mg oral tablet (1 source) Dopamine-2 Receptor Antagonist Start: 05-05-2024 take 1 tablet by mouth three times daily Reglan 10 mg Tab 10 mg = 1 tab(s), Oral, TID, Refills(s) 0 Start Date: 05/05/24 Status: Ordered nitroglycerin 0.4 mg sublingual tablet (2 sources) Nitrate Vasodilator Start: 11-12-2023 nitroglycerin 0.4 mg sublingual Tab 0.4 mg = 1 tab(s), SubLingual, q5min, Refills(s) 0 Start Date: 11/12/23 Status: Ordered Start: 11-12-2023 nitroglycerin 0.4 mg sublingual Tab Refills(s) 0 Start Date: 11/12/23 Status: Ordered omeprazole 40 mg delayed release oral capsule (4 sources) Proton Pump Inhibitor Start: 07-06-2015 take 1 capsule by mouth once daily omeprazole 40 mg Cap-EC 40 mg = 1 cap(s), Oral, Daily, Refills(s) 0 Start Date: 07/06/15 Status: Ordered ondansetron 4 mg disintegrating oral tablet (4 sources) Serotonin-3 Receptor Antagonist Start: 11-12-2023 take 1 tablet by mouth every six hours as needed for nausea ondansetron 4 mg Dis Tab 4 mg = 1 tab(s), Oral, q6hr, PRN Nausea, Refills(s) 0 Start Date: 11/12/23 Status: Ordered Start: 08-31-2020 End: 08-31-2020 ondansetron (ZOFRAN) injecti on 4 mg pantoprazole 40 mg delayed release oral tablet (1 source) Proton Pump Inhibitor Start: 05-05-2024 take 1 tablet by mouth once daily Pantoprazole [address] Tab 40 mg = 1 tab(s), Oral, Daily, Refills(s) 0 Start Date: 05/05/24 Status: Ordered perflutren lipid microspheres (DEFINITY) injection [...] administer the echo contrast. polyethylene glycol 3350 78340 mg powder for oral solution (1 source) [...] 08/02/2020 Active simvastatin 40 mg oral tablet (5 sources) HMG-CoA Reductase Inhibitor Start: 05-05-2024 take 1 tablet by mouth once daily in the evening simvastatin 40 mg Tab 40 mg = 1 tab(s), Oral, qPM, Refills(s) 0 Start Date: 05/05/24 Status: Ordered Start: 07-06-2015 take 1 tablet by ray th once daily at bedtime simvastatin 40 mg Tab 40 mg = 1 tab(s), Oral, Once a day (at bedtime), Refills(s) 0 Start Date: 07/06/15 Status: Ordered 3 ml sodium chloride 9 mg/ml injection (6 sources) Start: 08-31-2020 10 mL, Intrave nous, EVERY 12 HOURS SCHEDULED (2 times per [...] chloride bolus tiZANidine 4 mg oral tablet (4 sources) Central alpha-2 Adrenergic Agonist Start: 07-06-2015 take 1 tablet by mouth three times daily as needed for pain Zanaflex 4 mg Tab 4 mg = 1 tab(s), Oral, TID, PRN Muscle pain, Refills(s) 0 Start Date: 07/06/15 Status: Ordered Start: 07-06-2015 take 1 tablet by [facility] twice daily as needed for pain Zanaflex 4 mg Tab 4 mg = 1 tab(s), Oral, BID, PRN Muscle pain, Refills(s) 0 Start Date: 07/06/15 Status: Ordered Completed/Discontinued Medications Medication Drug Class(es) Dates Sig (Normalized) Sig (Original) cyclobenzaprine hydrochloride 10 mg oral tablet (2 sources) Muscle Relaxant Start: 10-24-2018 End: 09-01-2020 cyclobenzaprine (FLEXERIL) tablet 10 mg iopamidol (ISOVUE-370) 76 % injection 130 [...] [Acute kidney failure, unspecified] Onset: 02-24-2023 Episodic Acute cerebrovascular disease (1 source) Cerebral infarction Onset: 06-30-2014 05-05-2024 Chronic Anal and rectal conditions (2 sources) Anorectal disorder; Translations: [Other specified diseases of anus and rectum] Onset: 05-13-2024 Episodic Anxiety disorders (3 sources) Anxiety disorder, unspecified; Translations: [Generalized anxiety disorder] Onset: 03-10-2023 Chronic Aortic; peripheral; and visceral artery aneurysms (2 sources) Aortic aneurysm; Translations: [Aortic aneurysm of unspecified site, without rupture] Onset: 08-19-2011 Chronic Asthma (4 sources) Asthma 12-05-2021 Chronic Calculus of urinary tract (5 sources) Kidney stone; Translations: [Calculus of ureter] Onset: 04-03-2023 12-05-2021 Episodic Cancer of bladder (7 sources) Malignant tumor of urinary bladder 07-06-2015 Chronic Cancer of bladder (1 source) Personal history of malignant neoplasm of bladder; Translations: [PERSONAL HX MALIG NEOPLASM BLADDER] Onset: 04-16-2023 Episodic Cancer; other and unspecified primary (2 sources) H/O: malignant neoplasm 11-12-2023 Episodic Cardiac dysrhythmias (1 source) Bradycardia 05-05-2024 Episodic Chronic obstructive pulmonary disease and bronchiectasis (9 sources) Chronic obstructive lung disease; Translations: [Chronic obstructive pulmonary disease, unspecified] Onset: 02-14-2023 12-05-2021 Chronic Congestive heart failure; nonhypertensive (7 sources) Heart failure, unspecified; Translations: [Acute combined systolic (congestive) and diastolic (congestive) heart failure] Onset: 05-13-2012 Chronic Coronary atherosclerosis and other heart disease (12 sources) Coronary arteriosclerosis; Translations: [Atherosclerotic heart disease of [place] coronary artery without angina pectoris] Onset: 05-06-2012 03-20-2021 Chronic Coronary atherosclerosis and other heart disease (2 sources) Presence of coronary angioplasty implant and graft; Translations: [Coronary angioplasty status] Onset: 04-03-2023 Episodic Deficiency and other anemia (4 sources) Anemia 12-05-2021 Episodic Diabetes mellitus without complication (7 sources) Diabetes mellitus; Translations: [Type 2 diabetes mellitus without complications] Onset: 02-24-2023 03-20-2021 Chronic Diseases of white blood cells (1 source) Leukocytosis; Translations: [Elevated white blood cell count, unspecified] 03-20-2021 Chronic Disorders of lipid metabolism (12 sources) Hyperlipidemia; Translations: [Hyperlipidemia, unspecified] Onset: 02-24-2023 03-20-2021 Chronic Diverticulosis and diverticulitis (4 sources) Diverticular disease 01-28-2014 Chronic Esophageal disorders (4 sources) Gastro-esophageal reflux disease without esophagitis; Translations: [Gastroesophageal reflux disease] Onset: 03-10-2023 Chronic Essential hypertension (13 sources) Hypertensive disorder; Translations: [Essential (primary) hypertension] Onset: 02-24-2023 03-20-2021 Chronic External cause codes: Fall (2 sources) Fall; Translations: [Fall] Onset: 08-30-2020 08-30-2020 Fluid and electrolyte disorders (1 source) Hypokalemia; Translations: [Hypokalemia] Onset: 02-24-2023 Episodic Gastrointestinal hemorrhage (8 sources) Hemorrhage of anus and rectum; Translations: [Hemorrhage of rectum and anus] Onset: 04-03-2023 Episodic Genitourinary symptoms and ill-defined conditions (1 source) Personal history of urinary (tract) infections; Translations: [PERS HX URINARY TRACT INFECTIONS] Onset: 04-03-2023 Episodic Headache; including migraine (7 sources) Hemiplegic migraine; 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] Onset: 08-30-2020 08-31-2020 Chronic Heart valve disorders (1 source) Presence of prosthetic heart valve; Translations: [PRESENCE OF PROSTHETIC HEART VALVE] Onset: 04-16-2023 Chronic Hypertension with complications and secondary hypertension (3 sources) Hypertensive urgency ; Translations: [Hypertensive heart disease with heart failure] Onset: 04-03-2023 08-31-2020 Chronic Mood disorders (1 source) Depressive disorder 05-05-2024 Chronic Mood disorders (1 source) Mood disorders; Translations: [DEPRESSION UNSPECIFIED] Onset: 04-03-2023 Nausea and vomiting (1 source) Nausea and vomiting; Translations: [Nausea with vomiting, unspecified] 03-20-2021 Episodic Osteoarthritis (5 sources) Arthritis; Translations: [Unspecified osteoarthritis, unspecified site] Onset: 04-16-2023 12-05-2021 Chronic Other aftercare (2 sources) Long-term current use of drug therapy; Translations: [Other residential case manager (current) drug therapy] Onset: 02-24-2023 Episodic Other aftercare (1 source) intermediate (current) use of insulin; Translations: [CAPACITY PLANNING MANAGER CURRENT USE OF INSULIN] Onset: 04-16-2023 Episodic Other aftercare (1 source) Other residential case manager (current) drug therapy; Translations: [OTH LONG-TERM CURRENT DRUG THERAPY] Onset: 04-16-2023 Episodic Other and ill-defined heart disease (4 sources) Heart disease 12-05-2021 Chronic Other and ill-defined heart disease (1 source) Left ventricular hypertrophy 05-05-2024 Chronic Other circulatory disease (2 sources) History [...] Onset: 01-14-2024 Episodic Other connective tissue disease (4 sources) Fibromyositis 01-28-2014 Episodic Other connective tissue disease (1 source) Fibromyalgia; Translations: [FIBROMYALGIA] Onset: 04-16-2023 Episodic Other diseases of kidney and ureters (1 source) Other specified disorders of kidney and ureter; Translations: [Other specified disorders of kidney and ureter] Onset: 02-18-2022 Chronic Other diseases of kidney and ureters (2 sources) Cyst of kidney 11-12-2023 Episodic Other gastrointestinal [...] INDEX BMI 34.0-34.9 ADULT] Onset: 04-03-2023 Chronic Other nutritional; endocrine; and metabolic disorders (1 source) Body mass index 30+ - obesity 05-13-2024 Chronic Other nutritional; endocrine; and metabolic disorders (1 source) Obese class III 05-05-2024 Chronic Paralysis (1 source) Right hemiparesis 05-05-2024 Chronic Residual codes; unclassified (1 source) Acquired absence of both cervix and uterus; Translations: [ACQUIRED ABSENCE BOTH CERVIX AND UTERUS] Onset: 04-03-2023 Episodic Residual codes; unclassified (2 sources) Other specified postprocedural states; Translations: [Other specified postprocedural states] Onset: 01-14-2024 Episodic Residual codes; unclassified (1 source) Tobacco user; Translations: [Tobacco use] Onset: 05-13-2024 Episodic Screening and history of mental health and substance abuse codes (1 source) Tobacco use and exposure - finding 05-13-2024 Chronic Spondylosis; intervertebral disc disorders; other back problems (1 source) Lumbosacral radiculopathy 05-05-2024 Episodic Substance-related disorders (5 sources) Smoker; Translations: [Nicotine dependence, cigarettes, uncomplicated] Onset: 04-16-2023 02-24-2023 Chronic Comment on above: Added secondary to d ocumentation in Social History. Thyroid disorders (1 source) Hypothyroidism 05-05-2024 Chronic Transient cerebral ischemia (1 source) Transient cerebral ischemia Onset: 05-06-2012 05-05-2024 Chronic Unclassified (1 source) PERSONAL HISTORY OF COVID-19; Translations: [PERSONAL HISTORY OF COVID-19] Onset: 04-03-2023 Unclassified (1 source) CONTACT W/AND (SUSP) EXPOS COVID-19; Translations: [CONTACT W/AND (SUSP) EXPOS COVID-19] Onset: 02-21-2023 Unclassified (1 source) Patient encounter status 05-13-2024 Past or Other Problems Problem Classification Problem [...] 03-10-2023 03-20-2021 Episodic Other aftercare (1 source) housing relocation (current) use of antithrombotics/anti platelets; Translations: [LONG-TERM ANTITHROMBOT/ANTIPLA TLETS] Onset: 2022 Episodic Other aftercare (1 source) housing relocation (current) use of aspirin; Translations: [LONG-TERM CURRENT USE OF ASPIRIN] Onset: 2022 Episodic Other aftercare (1 source) intermediate (current) use of oral hypoglycemic drugs; Translations: [LONG-TERM USE ORAL HYPOGLYCEMIC DX] Onset: 2022 Episodic [...] [Near syncope] Onset: 08-31-2020 08-31-2020 Episodic Unclassified (4 sources) Cystoscopy and transurethral resection of bladder tumor 09-07-2010 Results Test Name Value Interpretation Reference Range Facility Reminderson 06-24-2024 Reminders Reminders From: Lore Carlisle LPN To: N - Clinical; Sent: 06/24/2024 14:45:34 EDT Show up: 05/23/2034 07:00:00 EDT Subject: colonoscopy recall Due Date/Time: 06/23/2034 07:00:00 EDT Reminder/Recall Patient due for screening colonoscopy 06/23/2034. Normal [facility] Ambulatory Visit Summaryon 0 05-13-2024 Ambulatory Visit Summary Ambulatory Visit Summary YEYO AVILA :1955 Visit Date:05/13/2024 Ambulatory Visit Instructions Your Care Team Attending Physician - Dom MEDNEZ MD Primary Care Physician - Robin Ponce MD This Is Your Medications List Contact prescribing physician if questions or concerns buPROPion (buPROPion 150 mg ER Tab) carvedilol (carvedilol 25 mg Tab) clopidogrel (Plavix 75 mg Tab) diphenhydrAMINE (Benadryl 25 mg Tab) duloxetine (duloxetine 60 mg Cap-DR) glimepiride (glimepiride 4 mg Tab) insulin isophane-insulin regular (NovoLIN 70/30 FlexPen subcutaneous suspension) irbesartan (irbesartan 150 mg Tab) isosorbide mononitrate (isosorbide mononitrate 30 mg ER Tab) metoclopramide (Reglan 10 mg Tab) nitroglycerin (nitroglycerin 0.4 mg sublingual Tab) ondansetron (ondansetron 4 mg Dis Tab) pantoprazole (Pantoprazole [address] Tab) simvastatin (simvastatin 40 mg Tab) tizanidine (Zanaflex 4 mg Tab) Procedures Performed EGD - esophagogastroduodenoscopy (10/27/2018), Cystourethroscopy (separate procedure) (06/08/2015), Colonoscopy (03/18/2014), Angioplasty (2011), Appendectomy, Cardiac catheterization, Closed fracture of patella, Colonoscopy, Exploratory laparotomy, Insertion of coronary artery stent, Tonsillectomy, Vaginal hysterectomy. Discharge Vitals Heart Rate (Peripheral) 64 Respiratory Rate 16 Blood Pressure 117/75 Height 165 cm Height 65 in Weight 97.5 kg Weight 214.5 lb BMI 35.81 Medications What How Much When Instructions Unchanged buPROPion (buPROPion 150 mg ER Tab) 1 Tablets By Mouth Every day Contact prescribing physician if questions or concerns Unchanged carvedilol (carvedilol 25 mg Tab) 1 Tablets By Mouth 2 times a day Contact prescribing physician if questions or concerns Unchanged clopidogrel (Plavix 75 mg Tab) 1 Tablets By Mouth Every day Contact prescribing physician if questions or concerns Unchanged diphenhydrAMINE (Benadryl 25 mg Tab) 1 Tablets By Mouth Once a day (at bedtime) as needed for as needed for sleep Contact prescribing physician if questions or concerns Unchanged duloxetine (duloxetine 60 mg Cap-DR) 1 Capsules By Mouth Every day Contact prescribing physician if questions or concerns Unchanged glimepiride (glimepiride 4 mg Tab) 1 Tablets By Mouth Every day Contact prescribing physician if questions or concerns Unchanged insulin isophane-insulin regular (NovoLIN 70/ 30 FlexPen subcutaneous suspension) per sliding scale Contact prescribing physician if questions or concerns Unchanged irbesartan (irbesartan 150 mg Tab) 1 Tablets By Mouth Every day Contact prescribing physician if questions or concerns Unchanged isosorbide mononitrate (isosorbide mononitrate 30 mg ER Tab) 1 Tablets By Mouth 2 times a day Contact prescribing physician if questions or concerns Unchanged metoclopramide (Reglan 10 mg Tab) 1 Tablets By Mouth 3 times a day Contact prescribing physician if questions or concerns Unchanged nitroglycerin (nitroglycerin 0.4 mg sublingual Tab) 1 Tablets Sublingual Every 5 minutes Contact prescribing physician if questions or concerns Unchanged ondansetron (ondansetron 4 mg Dis Tab) 1 Tablets By Mouth Every 6 hours as needed for Nausea Contact prescribing physician if questions or concerns Unchanged pantoprazole (Pantoprazole [address] Tab) 1 Tablets By Mouth Every day Contact prescribing physician if questions or concerns Unchanged simvastatin (simvastatin 40 mg Tab) 1 Tablets By Mouth Once a day (in the evening) Contact prescribing physician if questions or concerns Unchanged tizanidine (Zanaflex 4 mg Tab) 1 Tablets By Mouth 3 times a day as needed for Muscle pain Contact prescribing physician if questions or concerns Allergies Contrast Dye (Hives..) Imitrex (Nausea) Lipitor (Muscle pain) Strawberries (Hives..) Topamax (Nausea) lisinopril (Edema of throat) Problems Ongoing - Any problem that you are currently receiving treatment for. Anemia Aneurysm of thoracic aorta Arthritis Asthma BMI 35.0-35.9,adult Bradycardia BRBPR (bright red blood per rectum) Cerebral infarction Chronic systolic heart failure Class 3 obesity COPD (chronic obstructive pulmonary disease) Coronary atherosclerosis Depressive disorder Diabetes mellitus Gastroesophageal reflux disease Heart disease High cholesterol History of bladder cancer History of myocardial infarction Hyperlipidemia Hypertension Hypothyroidism Kidney stones Lumbosacral radiculopathy LVH (left ventricular hypertrophy) Migraines Renal cyst, left Right hemiparesis Smoker Systolic heart failure Transient cerebral ischemia Historical - Any problem that you are no longer receiving treatment for. Benign essential hypertension Bladder cancer Cystoscopy and transurethral resection of bladder tumor Diverticulosis Fibromyalgia Hypercholesterolemia Patient Survey You may receive a survey via text (more content not included)... Normal [facility] ED Note-Physicianon 05-06-20 24 ED Note-Physician [id number]#1.00TIFF [facility] RAD - CT Reporton 05-06-2024 RAD - CT Report [id number]#1.00TIFF [facility] Physician Referralon 024 Physician Referral [id number]#1.00TIFF [facility] 36on 02-05-2024 36 PT DAUGHTER STATES S HE IS ON VACATION, SHE FELICIA;L CALL THE OFFICE NEXT WEEK Normal [facility] 36on 01-28-2024 36 I have been tying to call pt for about a week, no vm 01/27 Normal [facility] Telephoneon 01-15-2024 Telephone [id number] Sergio Avila S 1955 F Date Provider Department Center 01/15/2024 895-KISHAN MARINELLI CARD [facility] No family history on file Normal [facility] Office Visiton 01-14-2024 Follow-up visit [id number] Sergio Avila S 1955 F Date Provider Department Center 01/14/2024 271-CONCEPCIÓN REBEKA CARD [facility] No family history on file Level of Service:79791 NM OFFICE/OUTPATIENT ESTABLISHED MOD MDM 30 MIN Normal [facility] Documentationon 12-03-2023 Documentation [id number] eSrgio Avila S 1955 F Date Provider Department [place] 12/03/2023 ALEXIA SUBRAMANIAN [facility]. No family history on file Normal [facility] Office Visiton 07-08-2023 Follow-up visit [id number] Sergio Avila S 1955 F Date Provider Department Center 07/08/2023 ALEXIA SUBRAMANIAN [facility] No family history on file Level of Service:92986 NM OFFICE/OUTPATIENT ESTABLISHED MOD MDM 30-39 MIN Reason for Visit and Comments: Hospital Follow-up [832] - Chest pain Normal [facility] Office Visiton 04-25-2023 Follow-up visit [id number] Sergio Avila S 1955 F Date Provider Department Center 04/25/2023 [id number]-AEJBPQHAGJONO LOPEZ CARD [facility] No family history on file Level of Service:98564 NM OFFICE/OUTPATIENT ESTABLISHED LOW MDM 20-29 MIN Normal [facility] POINT OF CARE GLUCOSEon 05-3 Glucose [Mass/Vol] 90 mg/dL Normal 74-106 [facility] Comment on above: Performed By: #### P OCGLUC #### [facility] [address] [place] [address] Dr. Win Ardon CARDIAC STRESS TESTon 2022 [...] reported nuclear myocardial perfusion imaging. Normal [facility] CBC AUTO DIFFon 04-01-2023 BASO # 0.1 103/ul Normal 0.0-0.1 [facility] Comment on above: Performed By: #### C BC #### [facility] [address] [place] [address] Dr. Win Ardon Basophils/100 WBC (Bld) 1.3 % Normal 0.2-2.0 [facility] Comment on above: Performed By: #### C BC #### [facility] [address] [place] [address] Dr. Win Ardon EO # 0.4 103/ul Normal 0.0-0.7 [facility] Comment on above: Performed By: #### C BC #### [facility] [address] [place] [address] Dr. Win Ardon Eosinophils/100 WBC (Bld) 4.1 % Normal 0.9-7.0 [facility] Comment on above: Performed By: #### C BC #### [facility] [address] [place] [address] Dr. Win Ardon Erythrocyte distribution width (RBC) [Ratio] 13.3 % Normal 11.0-15.0 [facility] Comment on above: Performed By: #### C BC #### [facility] [address] [place] [address] Dr. Win Ardon Hematocrit (Bld) [Volume fraction] 38.9 % Normal 36.0-48.0 [facility] Comment on above: Performed By: #### C BC #### [facility] [address] [place] [address] Dr. Win Ardon Hemoglobin (Bld) [Mass/Vol] 13.2 g/dL Normal 12.0-16.0 [facility] Comment on above: Performed By: #### C BC #### [facility] [address] [place] [address] Dr. Win Ardon IG # 0.04 10e3/ul Critically high 0.00-0.03 [facility] Comment on above: Performed By: #### C BC #### [facility] [address] [place] [address] Dr. Win Ardon IG % 0.4 % Normal 0.0-0.5 [facility] Comment on above: Performed By: #### C BC #### [facility] [address] [place] [address] Dr. Win Ardon LYMPH # 3.2 103/ul Normal 1.2-3.8 [facility] Comment on above: Performed By: #### C BC #### [facility] [address] [place] [address] Dr. Win Ardon Lymphocytes/100 WBC (Bld) 34.7 % Normal 20.5-60.0 [facility] Comment on above: Performed By: #### C BC #### [facility] [address] [place] [address] Dr. Win Ardon MANUAL DIFF REQ NO Normal [facility] Comment on above: Performed By: #### C BC #### [facility] [address] [place] [address] Dr. Win Ardon MCH (RBC) [Entitic mass] 31.3 pg Normal 26.7-34.0 [facility] Comment on above: Performed By: #### C BC #### [facility] [address] [place] [address] Dr. Win Ardon MCHC (RBC) [Mass/Vol] 33.9 g/dL Normal 29.9-35.2 [facility] Comment on above: Performed By: #### C BC #### [facility] [address] [address] [address] Win Ardon MCV (RBC) [Entitic vol] 92.2 fL Normal 81.0-99.0 [facility] Comment on above: Performed By: #### C BC #### [facility] [address] [place] [address] Dr. Win rAdon MONO # 0.7 103/ul Normal 0.3-0.8 [facility] Comment on above: Performed By: #### C BC #### [facility] [address] [place] [address] Dr. Win Ardon Monocytes/100 WBC (Bld) 7.1 % Normal 1.7-12.0 [facility] Comment on above: Performed By: #### C BC #### [facility] [address] [place] [address] Dr. Win Ardon NEUT # 4.9 103/ul Normal 1.4-6.5 [facility] Comment on above: Performed By: #### C BC #### [facility] [address] [place] [address] Dr. Win Ardon Neutrophils/100 WBC (Bld) 52.4 % Normal 43.0-75.0 [facility] Comment on above: Performed By: #### C BC #### [facility] [address] [place] [address] Dr. Win Ardon Platelet mean volume (Bld) [Entitic vol] 10.6 fL Normal 9.5-13.5 [facility] Comment on above: Performed By: #### C BC #### [facility] [address] [place] [address] Dr. Win Ardon PLT 231 103/ul Normal 150-450 [facility] Comment on above: Performed By: #### C BC #### [facility] [address] [place] [address] Dr. Win Ardon RBC 4.22 106/ul Normal 4.20-5.40 [facility] Comment on above: Performed By: #### C BC #### [facility] [address] [place] [address] [address] [address] Win Ardon WBC 9.3 103/ul Normal 4.0-11.0 [facility] Comment on above: Performed By: #### C BC #### [facility] [address] [place] [address] ABD/PELVIS WO CONon 04-01 CT ABD/PELVIS WO CON EXAMINATION: CT ABD OMEN AND PELVIS WITHOUT IV CONTRAST CLINICAL HISTORY: [...] visualized. No diverticulosis. Lymph Nodes: No lymphadenopathy. Mesentery/peritoneum: No ascites. Retroperitoneum: No mass. Vasculature: No abdominal aortic or iliac artery aneurysm. Pelvis: No mass or ascites. Urinary bladder is unremarkable. Bones/Soft Tissues: No acute abnormality. Lower thorax: Unremarkable. IMPRESSION: No acute findings in the abdomen and pelvis. 8 mm proximal left ureteral calculus without hydronephrosis. Electronically authenticated by: LISSETT ALAN Date: 2023-04-01 20:03 Normal [facility] LACTATE/LACTIC ACIDon 2022 Lactate [Moles/Vol] 1.2 mmol/L Normal 0.4-2.0 [facility] Comment on above: Performed By: #### L ACT #### [facility] [address] [place], [place] [address] Dr. 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 Order #: [id number] CLICK HERE TO VIEW EXAM RADIOLOGY REPORT [...] M.D. on 04/02/2023 at 11:10 Normal [facility] OCC BLD IMMUNO SCREENon 03-17 OCCULT BLOOD Positive Abnormal NEGATIVE [facility] Comment on above: Performed By: #### O BSCRN #### [facility] [address] [address] [address] Win Ardon PROF 14(COMP METB)on 023 Albumin [Mass/Vol] 3.8 g/dL Normal 3.4-5.0 [facility] Comment on above: Performed By: #### C MP ####[facility] [address] [address]Dr. Claudiaaida Duglas Albumin/Globulin [Mass ratio] 1.1 {ratio} Normal [facility] Comment on above: Performed By: #### C MP ####[facility] [address] [address]Dr. Win Ardon ALP [Catalytic activity/Vol] 99 U/L Normal 46-116 [facility] Comment on above: Performed By: #### C MP ####[facility] [address] [place], [place] [address]Dr. Win Ardon ALT [Catalytic activity/Vol] 17 U/L Normal 14-59 [facility] Comment on above: Performed By: #### C MP ####[facility] [address] [place], [place] [address]Dr. Win Ardon Anion gap [Moles/Vol] 13.4 mmol/L Normal [facility] Comment on above: Performed By: #### C MP ####[facility] [address] [place], [place] [address]Dr. Win Ardon AST [Catalytic activity/Vol] 11 U/L Critically low 15-37 [facility] Comment on above: Performed By: #### C MP ####[facility] [address] [place], [place] [address]Dr. Win Ardon Bilirubin [Mass/Vol] 0.6 mg/dL Normal 0.2-1.0 [facility] Comment on above: Performed By: #### C MP ####[facility] [address] [place], [place] [address]Dr. Win Ardon Calcium [Mass/Vol] 9.1 mg/dL Normal 8.5-10.1 [facility] Comment on above: Performed By: #### C MP ####[facility] [address] [place], [place] [address]Dr. Win Ardon Chloride [Moles/Vol] 106 mmol/L Normal 98-107 [facility] Comment on above: Performed By: #### C MP ####[facility] [address] [address]Dr. Win Ardon CO2 [Moles/Vol] 29.2 mmol/L Normal 21.0-32.0 [facility] Comment on above: Performed By: #### C MP ####[facility] [address] [address]Dr. Win Ardon Creatinine [Mass/Vol] 0.95 mg/dL Normal 0.55-1.02 [facility] Comment on above: Performed By: #### C MP ####[facility] [address] [address]Dr. Win Ardon EGFR-AF SCOTTISH >60 Normal >=60 [facility] Comment on above: Performed By: #### C MP ####[facility] [address] [address]Dr. Win Ardon EGFR-NON AF SCOTTISH 59 mL/min/1.73m2 Critically low >=60 [facility] Comment on above: Performed By: #### C MP ####[facility] [address] [address]Dr. Win Ardon Globulin (S) [Mass/Vol] 3.4 g/dL Normal [facility] Comment on above: Performed By: #### C MP ####[facility] [address] [address]Dr. Win Ardon Glucose [Mass/Vol] 162 mg/dL Critically high 74-106 [facility] Comment on above: Performed By: #### C MP ####[facility] [address] [address]Dr. Win Ardon Potassium [Moles/Vol] 3.6 mmol/L Normal 3.5-5.1 [facility] Comment on above: Performed By: #### C MP ####[facility] [address] [address]Dr. Win Ardon Protein [Mass/Vol] 7.2 g/dL Normal 6.4-8.2 [facility] Comment on above: Performed By: #### C MP ####[facility] [address] [place], [place] [address]Dr. Win Ardon Sodium [Moles/Vol] 145 mmol/L Normal 136-145 [facility] Comment on above: Performed By: #### C MP ####[facility] [address] [place], [place] [address]Dr. Win Ardon Urea nitrogen [Mass/Vol] 14.0 mg/dL Normal 7.0-18.0 [facility] Comment on above: Performed By: #### C MP ####[facility] [address] [place], [place] [address]Dr. Win Ardon Urea nitrogen/Creatinine [Mass ratio] 14.7 mg/mg Normal [facility] Comment on above: Performed By: #### C MP ####[facility] [address] [place], [place] [address]Dr. Win Ardon PROTIMEon 04-01-2023 INR Coag (PPP) [Relative time] 1.02 {INR} Normal [facility] Comment on above: Performed By: #### P TT, PT ####[facility] [address] [place], [place] [address]Dr. Win Ardon INR GUIDELINES SEE BELOW Normal [facility] Comment on above: Result Comment: MAGDA RED INR: 2.0 - 3.0 CONDITIONS NOT LISTED BELOW 2.5 - 3.5 FOR PROSTHETIC HEART VALVE REPLACEMENT 2.5 - 3.5 RECURRENT THROMBOSIS Performed By: #### P TT, PT ####[facility] [address] [place], [place] [address]Dr. Win Ardon PT Coag (PPP) [Time] 10.8 s Normal 9.0-11.6 [facility] Comment on above: Performed By: #### P TT, PT ####[facility] [address] [place], [place] [address]Dr. Win Ardon PTTon 04-01-2023 aPTT Coag (Bld) [Time] 26.5 s Normal 22.3-36.2 [facility] Comment on above: Performed By: #### P TT, PT ####[facility] [address] [id number]. Win Ardon TYPE AND SCREENon 04-01-2023 TYPE AND SCREEN Negative Normal [facility] Comment on above: Performed By: #### T NS ####[facility] [address] [id number]. Win Ardon CBC AUTO DIFFon 03-24-2023 BASO # 0.1 103/ul Normal 0.0-0.1 [facility] Comment on above: Performed By: #### C BC ####[facility] [address] [place], [place] [address]Dr. Win Ardon Basophils/100 WBC (Bld) 1.0 % Normal 0.2-2.0 [facility] Comment on above: Performed By: #### C BC ####[facility] [address] [place], [place] [address]Dr. Win Ardon EO # 0.3 103/ul Normal 0.0-0.7 [facility] Comment on above: Performed By: #### C BC ####[facility] [address] [place], [place] [address]Dr. Win Ardon Eosinophils/100 WBC (Bld) 3.3 % Normal 0.9-7.0 [facility] Comment on above: Performed By: #### C BC ####[facility] [address] [place], [place] [address]Dr. Win Ardon Erythrocyte distribution width (RBC) [Ratio] 13.2 % Normal 11.0-15.0 [facility] Comment on above: Performed By: #### C BC ####[facility] [address] [place], [place] [address]Dr. Win Ardon Hematocrit (Bld) [Volume fraction] 41.3 % Normal 36.0-48.0 [facility] Comment on above: Performed By: #### C BC ####[facility] [address]uc[address] [place], [place] [address]Dr. Win Ardon Hemoglobin (Bld) [Mass/Vol] 13.6 g/dL Normal 12.0-16.0 [facility] Comment on above: Performed By: #### C BC ####[facility] [address] [address]Dr. Win Ardon IG # 0.04 10e3/ul Critically high 0.00-0.03 [facility] Comment on above: Performed By: #### C BC ####[facility] [address] [address]Dr. Win Ardon IG % 0.4 % Normal 0.0-0.5 [facility] Comment on above: Performed By: #### C BC ####[facility] [address] [place], [place] [address]Dr. Win Ardon LYMPH # 2.2 103/ul Normal 1.2-3.8 [facility] Comment on above: Performed By: #### C BC ####[facility] [address] [place], [place] [address]Dr. Win Ardon Lymphocytes/100 WBC (Bld) 23.8 % Normal 20.5-60.0 [facility] Comment on above: Performed By: #### C BC ####[facility] [address] [place], [place] [address]Dr. Win Ardon MANUAL DIFF REQ NO Normal [facility] Comment on above: Performed By: #### C BC ####[facility] [address] [address]Dr. Win Ardon MCH (RBC) [Entitic mass] 30.6 pg Normal 26.7-34.0 [facility] Comment on above: Performed By: #### C BC ####[facility] [address] [place], [place] [address]Dr. Win Ardon MCHC (RBC) [Mass/Vol] 32.9 g/dL Normal 29.9-35.2 [facility] Comment on above: Performed By: #### C BC ####[facility] [address] [address]Dr. Win Ardon MCV (RBC) [Entitic vol] 93.0 fL Normal 81.0-99.0 [facility] Comment on above: Performed By: #### C BC ####[facility] [address] [id number]. Win Ardon MONO # 0.7 103/ul Normal 0.3-0.8 [facility] Comment on above: Performed By: #### C BC ####[facility] [address] [id number]. Win Ardon Monocytes/100 WBC (Bld) 7.3 % Normal 1.7-12.0 [facility] Comment on above: Performed By: #### C BC ####[facility] [address] [id number]. Win Ardon NEUT # 5.8 103/ul Normal 1.4-6.5 [facility] Comment on above: Performed By: #### C BC ####[facility] [address] [place], [place] [address]Dr. Win Ardon Neutrophils/100 WBC (Bld) 64.2 % Normal 43.0-75.0 [facility] Comment on above: Performed By: #### C BC ####[facility] [address] [place], [place] [address]Dr. Win Ardon Platelet mean volume (Bld) [Entitic vol] 11.0 fL Normal 9.5-13.5 [facility] Comment on above: Performed By: #### C BC ####[facility] [address] [id number]. Win Ardon PLT 243 103/ul Normal 150-450 [facility] Comment on above: Performed By: #### C BC ####[facility] [address] [id number]. Win Ardon RBC 4.44 106/ul Normal 4.20-5.40 [facility] Comment on above: Performed By: #### C BC ####[facility] [address] [id number]. Win Ardon WBC 9.1 103/ul Normal 4.0-11.0 [facility] Comment on above: Performed By: #### C BC ####[facility] [address] [place], [place] [address]Dr. Win Ardon LIPID PROFILEon 03-24-2023 CHOL-HDL RATIO NORM SEE BELOW Normal [facility] Comment on above: Result Comment: 3.3 - 4.4 LOW RISK 4.4 - 7.1 AVERAGE RISK 7.1 - 11.0 MODERATE RISK >11.0 HIGH RISK Performed By: #### C MP, LIPID #### [facility] [address] [place], [place] [address] Dr. Win Ardon Cholesterol [Mass/Vol] 99 mg/dL Normal <=200 [facility] Comment on above: Performed By: #### C MP, LIPID #### [facility] [address] [id number] [address] Win Ardon Cholesterol in HDL [Mass/Vol] 34 mg/dL Critically low 40-60 [facility] Comment on above: Performed By: #### C MP, LIPID #### [facility] [address] [address] [address] Win Ardon Cholesterol in LDL [Mass/Vol] 35.8 mg/dL Normal [facility] Comment on above: Performed By: #### C MP, LIPID #### [facility] [address] [place], [place] [address] Dr. Win Ardon Cholesterol.total/Ch olesterol in HDL [Mass ratio] 2.9 {ratio} Normal [facility] Comment on above: Performed By: #### C MP, LIPID #### [facility] [address] [id number] Win Ardon HDL NORMAL > or = 60 mg/dl - LO W CARDIOVASCULAR RISK <40 mg/dl - HIGH CARDIOVASCULAR RISK Normal [facility] Comment on above: Performed By: #### C MP, LIPID #### [facility] [address] [id number] [address] Win Ardon LDL CALC NORMAL SEE BELOW Normal [facility] Comment on above: Result Comment: <100 mg/dl OPTIMAL 100 - 129 mg/dl NEAR OR ABOVE OPTIMAL 130 - 159 mg/dl BORDERLINE HIGH 160 - 189 mg/dl HIGH >190 mg/dl VERY HIGH Performed By: #### C MP, LIPID #### [facility] [address] [place] [address] Dr. Win Ardon Triglyceride [Mass/Vol] 146 mg/dL Normal <=150 [facility] Comment on above: Performed By: #### C MP, LIPID #### [facility] [address] [place] [address] Dr. Win Ardon VLDL CALC 29.2 mg/dL Normal [facility] Comment on above: Performed By: #### C MP, LIPID #### [facility] [address] [place] [address] Dr. Win Ardon PROF 14(COMP METB)on 023 Albumin [Mass/Vol] 3.9 g/dL Normal 3.4-5.0 [facility] Comment on above: Performed By: #### C MP, LIPID #### [facility] [address] [place] [address] Dr. Win Ardon Albumin/Globulin [Mass ratio] 1.1 {ratio} Normal [facility] Comment on above: Performed By: #### C MP, LIPID #### [facility] [address] [place] [address] Dr. Win Ardon ALP [Catalytic activity/Vol] 96 U/L Normal 46-116 [facility] Comment on above: Performed By: #### C MP, LIPID #### [facility] [address] [place] [address] Dr. Win Ardon ALT [Catalytic activity/Vol] 15 U/L Normal 14-59 [facility] Comment on above: Performed By: #### C MP, LIPID #### [facility] [address] [place] [address] Dr. Win Ardon Anion gap [Moles/Vol] 12.1 mmol/L Normal [facility] Comment on above: Performed By: #### C MP, LIPID #### [facility] [address] [place] [address] Dr. Win Ardon AST [Catalytic activity/Vol] 10 U/L Critically low 15-37 [facility] Comment on above: Performed By: #### C MP, LIPID #### [facility] [address] [address] [address] Win Ardon Bilirubin [Mass/Vol] 0.8 mg/dL Normal 0.2-1.0 [facility] Comment on above: Performed By: #### C MP, LIPID #### [facility] [address] [address] [address] Win Ardon Calcium [Mass/Vol] 9.1 mg/dL Normal 8.5-10.1 [facility] Comment on above: Performed By: #### C MP, LIPID #### [facility] [address] [place] [address] Dr. Win Ardon Chloride [Moles/Vol] 102 mmol/L Normal 98-107 [facility] Comment on above: Performed By: #### C MP, LIPID #### [facility] [address] [place] [address] Dr. Win Ardon CO2 [Moles/Vol] 26.0 mmol/L Normal 21.0-32.0 [facility] Comment on above: Performed By: #### C MP, LIPID #### [facility] [address] [place] [address] Dr. Win Ardon Creatinine [Mass/Vol] 0.95 mg/dL Normal 0.55-1.02 [facility] Comment on above: Performed By: #### C MP, LIPID #### [facility] [address] [place] [address] Dr. Win Ardon EGFR-AF SCOTTISH >60 Normal >=60 [facility] Comment on above: Performed By: #### C MP, LIPID #### [facility] [address] [place] [address] Dr. Win Ardon EGFR-NON AF SCOTTISH 59 mL/min/1.73m2 Critically low >=60 [facility] Comment on above: Performed By: #### C MP, LIPID #### [facility] [address] [address] [address] Win Ardon Globulin (S) [Mass/Vol] 3.7 g/dL Normal [facility] Comment on above: Performed By: #### C MP, LIPID #### [facility] [address] [address] [address] Win Ardon Glucose [Mass/Vol] 336 mg/dL Critically high 74-106 [facility] Comment on above: Performed By: #### C MP, LIPID #### [facility] [address] [address] [address] Win Ardon Potassium [Moles/Vol] 4.1 mmol/L Normal 3.5-5.1 [facility] Comment on above: Performed By: #### C MP, LIPID #### [facility] [address] [address] [address] Win Ardon Protein [Mass/Vol] 7.6 g/dL Normal 6.4-8.2 [facility] Comment on above: Performed By: #### C MP, LIPID #### [facility] [address] [address] [address] Win Ardon Sodium [Moles/Vol] 136 mmol/L Normal 136-145 [facility] Comment on above: Performed By: #### C MP, LIPID #### [facility] [address] [address] [address] Win Ardon Urea nitrogen [Mass/Vol] 10.0 mg/dL Normal 7.0-18.0 [facility] Comment on above: Performed By: #### C MP, LIPID #### [facility] [address] [address] [address] Win Ardon Urea nitrogen/Creatinine [Mass ratio] 10.5 mg/mg Normal [facility] Comment on above: Performed By: #### C MP, LIPID #### [facility] [address] [address] [address] Win Ardon Office Visiton 03-10-2023 Follow-up visit [id number] Sergio Avila 1955 F Date Provider Department Center 03/10/2023 [id number] LOPEZ [facility] No family history on file Level of Service:80317 NM OFFICE/OUTPATIENT ESTABLISHED MOD MDM 30-39 MIN Reason for Visit and Comments: Coronary Artery Disease [187] Hypertension [591415] aneurysm of thoracic aorta [Other] Normal [facility] CHEMISTRYOrdered By: Lab ROP User on 02-24-2023 Glucose [Mass/Vol] 144 mg/dL High 55 - 99 mg/dL [facility] POC Subsection Comment on above: Result Comment: Edilia arleth Meter POC Device SN [id number] Invalid Interpretation Code [facility] POC Subsection POC User ID [id number] Invalid Interpretation Code [facility] POC Subsection POC Username KRISTI MADDEN Invalid Interpretation Code [facility] POC Subsection Glucose [Mass/Vol] 76 mg/dL Normal 55 - 99 mg/dL [facility] POC Subsection Comment on above: Result Comment: Edilia arleth Meter POC Device SN [id number] Invalid Interpretation Code [facility] POC Subsection POC User ID [id number] Invalid Interpretation Code [facility] POC Subsection POC Username KRISTI MADDEN Invalid Interpretation Code [facility] POC Subsection CHEMISTRYOrdered By: SYSTEM SYSTEM on 02-24-2023 Potassium [Moles/Vol] 3.7 mmol/L Normal 3.5 - 5.3 mmol/L [facility] Remisol Anion gap [Moles/Vol] 8 mmol/L Normal 6 - 16 mEq/L [facility] Remisol Calcium [Mass/Vol] 8.4 mg/dL Low 8.9 - 11. 1 mg/dL [facility] Remisol Chloride [Moles/Vol] 108 mmol/L Normal 101 - 1 11 mmol/L [facility] Remisol CO2 [Moles/Vol] 25 mmol/L Normal 21 - 31 mmol/L [facility] Remisol Creatinine [Mass/Vol] 1.2 mg/dL Normal 0.5 - 1.3 mg/dL [facility] Remisol GFR/1.73 sq M.predicted among blacks MDRD (S/P/Bld) [Vol rate/Area] 55 mL/min/1.73 m2 Low >=59mL/min /1.73 m2 [facility] Chem S GFR/1.73 sq M.predicted among non-blacks MDRD (S/P/Bld) [Vol rate/Area] 45 mL/min/1.73 m2 Low >=59mL/min /1.73 m2 [facility] [place] S Glucose [Mass/Vol] 102 mg/dL Normal [...] activity/Vol] 84 [iU]/d Normal 21 - 98 Int._Unit/ L [facility] Remisol ALT No additional P-5'-P [Catalytic activity/Vol] 13 [iU]/d Normal 6 - 46 Int._Unit/ L [facility] Remisol Anion gap [Moles/Vol] 11 mmol/L Normal 6 - 16 mEq/L [facility] Remisol AST [Catalytic activity/Vol] 14 [iU]/d Normal 5 - 43 Int._Unit/ L [facility] Remisol Bilirubin [Mass/Vol] 1.1 mg/dL Normal [...] 1 11 mmol/L [facility] CO2 [Moles/Vol] 26 mmol/L Normal 21 - 31 mmol/L [facility] Remisol Creatinine [Mass/Vol] 1.4 mg/dL High 0.5 - 1.3 mg/dL [facility] Remisol GFR/1.73 sq M.predicted among blacks MDRD (S/P/Bld) [Vol rate/Area] 46 mL/min/1.73 m2 Low >=59mL/min /1.73 m2 [facility] Chem S GFR/1.73 sq M.predicted among non-blacks MDRD (S/P/Bld) [Vol rate/Area] 38 mL/min/1.73 m2 Low >=59mL/min /1.73 m2 [facility] [place] S Globulin (S) [Mass/Vol] 2.8 g/dL [...] Normal 0.0 - 8.0 % [facility] HemeAutoSS Eosinophils/Leukocyt es Auto (Bld) [Pure # fraction] 0.2 E9/L Normal 0.0 - 0.5 E9/L [facility] HemeAutoSS Lymphocytes/100 WBC (Bld) 30.2 % Normal 14.0 - 50.0 % [facility] HemeAutoSS Lymphocytes/Leukocyt es Auto (Bld) [Pure # fraction] 5.1 E9/L High 1.0 - 4.0 E9/L [facility] HemeAutoSS Monocytes/100 WBC (Bld) 8.3 % Normal 4.0 - 14.0 % [facility] HemeAutoSS Monocytes/Leukocytes Auto (Bld) [Pure # fraction] 1.4 E9/L High 0.2 - 1.0 E9/L [facility] HemeAutoSS Neutrophils/100 WBC (Bld) 59.8 % Normal 36.0 - 75.0 % [facility] HemeAutoSS Neutrophils/Leukocyt es Auto (Bld) [Pure # fraction] 10.0 E9/L [...] sed) [#/Area] /[HPF] Normal 0-2/HPF [facility] UA Auto SS Glucose Test strip (U) [Mass/Vol] Negative (02/24/23 2:06 AM) Normal Negative [facility] UA Auto SS Hemoglobin Ql (U) 3+ *ABN* (02/24/23 2:06 AM) Invalid Interpretation Code Negative [facility] UA Auto SS Ketones (U) [Mass/Vol] Trace *ABN* (02/24/23 2:06 AM) Invalid Interpretation Code Negative [facility] UA Auto SS [place].plasma/Lithi um.RBC (Bld) [Mass ratio] 21-30 /HPF Invalid Interpretation [...] [facility] UA Auto SS Urobilinogen Qn (U) [id number] {John'U}/dL Normal 0.0 - 1.0 EU/dL [facility] UA Auto SS WBC Auto Ql (U) Trace *ABN* (02/24/23 2:06 AM) Invalid Interpretation Code Negative [facility] UA Auto SS WBC casts LM.LPF (Urine sed) [#/Area] 4-10 (02/24/23 2:06 AM) Normal [facility] UA Auto SS WBC LM.HPF (Urine sed) [#/Area] 0-5 /HPF Normal 0-5/HPF [facility] UA Auto SS Covid-19 PCR ([facility])on 01-17 SARS-CoV-2 (COVID-19) RNA OSVALDO+probe Ql (Unsp spec) Not detected Normal NOT DETECTED [facility] Comment on above: Result Comment: This test is not yet approved or cleared by the [place] FDA. When there are no FDA-approved or cleared tests available, and other criteria are met, FDA can make tests available under an emergency access mechanism called an Emergency Use Authorization (EUA). The EUA for this test is supported by the Environmental Services Project Manager of Health and Human Service's (HHS's) declaration [...] SARS-CoV-2. Performed By: #### C VDTBH #### [facility] [address] [place], [place] [address] Dr. Win Ardon SYMPTOMATIC COVID-19 ANTIGEN on 02-14-2023 EUA Statement SEE BELOW Normal [facility] Comment on above: Result Comment: [...] sooner. Performed By: #### C VDAGS #### [facility] [address] [place] [address] [address] [address] Win Ardon SARS-CoV-2 (COVID-19) RNA OSVALDO+probe Ql (Unsp spec) Negative Normal NEGATIVE [facility] Comment on above: Performed By: #### C VDAGS #### [facility] [address] [place] [address] [address] [address] Win Ardon XR KNEE RT 4V [...] MIKAEL GUZMAN Date: 2022-10-05 19:58 Normal [facility] Creatinine (Bld) [Mass/Vol]O rdered By: Ese Tan on 02-18-2022 Creatinine [Mass/Vol] 0.8 mg/dL 0.6-1.3 [facility] Comment on above: ER/ESD physician is notified/shown all ISTAT results.Critical values may be confirmed by laboratory testing ifdeemed necessary by ER attending doctor. No Panel InformationOrdered By: Ese Tan on 02-18-2022 POC Estimated GFR > 60 [facility] Comment on above: GFR estimated refere nce range: According to KDOQI guidelines, <60 ml/min/1.73m2 is sufficient to diagnose a patient with chronic kidney disease. POC Estimated GFR Non- Amer > 60 [facility] Cardiovascular Lab Reporton 03-22-2021 Cardiovascular Lab Report [facility] Patient Name: [facility] Yeyo Cooper MR #: [id number] Department of Physician: Radha Carter M.D. Division of Service Date: 03/21/2021 Cardiology Birthdate: 1955 Adult Cardiovascular Room #: [facility] [address] [address] Cardiovascular Laboratory Report FINAL IMPRESSIONS: 1. 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 2. Patent stent in the second diagonal branch of the left anterior descending coronary artery with arar-yz-dmzuhawg in-stent restenosis. 3. Otherwise, nonobstructive coronary arteries [...] high intensity statin therapy, beta-grabiel +/- an angiotensin-converting enzyme inhibitor as appropriate. 4. Follow up with Alexia Cline, certified nurse practitioner as scheduled. 5. Follow up with Dr. Robin Ponce as scheduled. PROCEDURES: Ultrasound-guided access to the right common femoral artery and right common femoral vein, right heart catheterization, bilateral selective coronary angiography, placement of a 6-Ugandan MynxGrip closure device. METHODS: After risks, benefits, and alternatives were explained, written informed consent was obtained. The patient was prepped and draped in the usual sterile fashion over the right groin. Using 1% lidocaine solution, local infiltration anesthesia was achieved. Using a modified Seldinger technique, a micropuncture kit, an ultrasound guidance access to the right common femoral vein and artery was obtained. A 6-Ugandan x 11 cm sheath were placed in each. Limited femoral angiography was performed via the micropuncture kit prior to upsizing through the 6-Ugandan sheath in the artery. A Cazares catheter [...] the procedure. All catheters were removed. A 6-Ugandan MynxGrip closure device was deployed per protocol [...] P/Rebeka Pardo M.D. Date Trans: 03/22/2021 05:11 A/mmo [id number] cc: Alexia Cline, MSN, SEWER-C Department Of Surgery [address] [facility] [address] Robin Ponce M.D. [address] [facility] [phone] Normal [facility] Basic Metab w/rfx MGon 09-01 (cont.) Normal [facility] Comment on above: Result Comment: Aver age GFR for 60-69 years old: 85 mL/min/1.73sq m Chronic Kidney Disease: <60 mL/min/1.73sq m Kidney failure: <15 mL/min/1.73sq m eGFR calculated using average adult body mass. Additional eGFR calculator available at: http://www.Meaningfy.Yuantiku/multiple_crcl_2012.htm Performed By: #### E RTPF #### [address] [address] Cmo & President: Dheeraj Garcia MD Anion gap [Moles/Vol] 13 mmol/L Normal 9-17 [facility] Comment on above: Performed By: #### E RTPF #### [facility] [employer] [address] [place] [address] Cmo & President: Dheeraj Garcia MD Calcium [Mass/Vol] 8.8 mg/dL Normal 8.6-10.4 [facility] Comment on above: Performed By: #### E RTPF #### [address] [address] [employer]mo & President: Dheeraj Garcia MD Chloride [Moles/Vol] 106 mmol/L Normal 98-107 [facility] Comment on above: Performed By: #### E RTPF #### [address] [address] Cmo & President: Dheeraj Garcia MD CO2 [Moles/Vol] 21 mmol/L Normal 20-31 [facility] Comment on above: Performed By: #### E RTPF #### [address] [address] [employer]mo & President: Dheeraj Garcia MD Creatinine [Mass/Vol] 0.53 mg/dL Normal 0.50-0.90 [facility] Comment on above: Performed By: #### E RTPF #### [address] [address] [employer] & President: Dheeraj Garcia MD GFR, Amer >60 Normal >60 [facility] Comment on above: Performed By: #### E RTPF #### [address] [address] Cmo & President: Dheeraj Garcia MD GFR,non Amer >60 Normal >60 [facility] Comment on above: Performed By: #### E RTPF #### [address] [address] [employer]mo & President: Dheeraj Garcia MD Glucose [Mass/Vol] 169 mg/dL High 70-99 [facility] Comment on above: Performed By: #### E RTPF #### [address] [address] [employer]mo & President: Dheeraj Garcia MD Potassium [Moles/Vol] 4.0 mmol/L Normal 3.7-5.3 [facility] Comment on above: Performed By: #### E RTPF #### [facility] [place] [address] Cmo & President: Dheeraj Garcia MD Sodium [Moles/Vol] 140 mmol/L Normal 135-144 [facility] Comment on above: Performed By: #### E RTPF #### [facility] [place] [address] Cmo & President: Dheeraj Garcia MD Urea nitrogen [Mass/Vol] 10 mg/dL Normal 8- [facility] Comment on above: Performed By: #### E RTPF #### [facility] [employer] [employer] [address] [place] [address] Cmo & President: Dheeraj Garcia MD BUN/CRE Ratio NOT REPORTED Normal - [facility] Comment on above: Performed By: #### E RTPF #### [facility] [employer] [employer] [address] [place] [address] Cmo & President: Dheeraj Garcia MD Staging: NOT REPORTED Normal [facility] Comment on above: Performed By: #### E RTPF #### [facility] [employer] [employer] [address] [place] [address] [employer] & President: Dheeraj Garcia MD Basic Metabolic Panel w/ Ref martín to MGon 09-01-2020 Anion gap [Moles/Vol] 13 mmol/L 9 - 17 mmol/L [place] Bun/Cre Ratio NOT REPORTED [place] Calcium [Mass/Vol] 8.8 mg/dL 8.6 - 10. 4 mg/dL [place] Chloride [Moles/Vol] 106 mmol/L 98 - 10 7 mmol/L [place] CO2 [Moles/Vol] 21 mmol/L 20 - 31 mmol/L [place] Creatinine [Mass/Vol] 0.53 mg/dL 0.5 - 0.9 mg/dL [place] GFR >60 >60 mL/min [place] GFR Non- >60 >60 mL/min [place] GFR/1.73 sq M predicted among non-blacks MDRD (S/P/Bld) [Vol rate/Area] [place] Comment on above: Average GFR for 60-6 9 years old: 85 mL/min/1.73sq m Chronic Kidney Disease: <60 mL/min/1.73sq m Kidney failure: <15 mL/min/1.73sq m eGFR calculated using average adult body mass. Additional eGFR calculator available at: http://www.OuiCar/multiple_crcl_2012.htm GFR/1.73 sq M predicted among non-blacks MDRD (S/P/Bld) [Vol rate/Area] NOT REPORTED [place] Glucose [Mass/Vol] 169 mg/dL High 70 - 99 mg/dL [place] Interpretation and review of laboratory results Abnormal [place] Potassium [Moles/Vol] 4.0 mmol/L 3.7 - 5.3 mmol/L [place] Sodium [Moles/Vol] 140 mmol/L 135 - 144 mmol/L [place] Urea nitrogen [Mass/Vol] 10 mg/dL 8 - 23 mg/dL [place] CBC auto differentialon - Basophils (Bld) [#/Vol] 0.10 10*3/uL [place] Basophils/100 WBC (Bld) 1 % 0 - 2 % [place] Differential Type NOT REPORTED [place] Eosinophils (Bld) [#/Vol] 0.25 10*3/uL [place] Eosinophils/100 WBC (Bld) 3 % 1 - 4 % [place] Erythrocyte distribution width (RBC) [Ratio] 14.0 % 11.8 - 14.4 % [place] Hematocrit (Bld) [Volume fraction] 40.7 % 36.3 - 47.1 % [place] Hemoglobin (Bld) [Mass/Vol] 12.7 g/dL 11.9 - 15.1 g/dL [place] Immature granulocytes (Bld) [#/Vol] 0.06 10*3/uL [place] Immature granulocytes (Bld) [#/Vol] 1 % High 0 [place] Interpretation and review of laboratory results Abnormal [place] Lymphocytes (Bld) [#/Vol] 2.12 10*3/uL [place] Lymphocytes/100 WBC (Bld) 23 % Low 24 - 43 % [place] MCH (RBC) [Entitic mass] 28.1 pg 25.2 - 33.5 pg [place] MCHC (RBC) [Mass/Vol] 31.2 g/dL 28.4 - 34.8 g/dL [place] MCV (RBC) [Entitic vol] 90.0 fL 82.6 - 102.9 fL [place] Monocytes (Bld) [#/Vol] 0.68 10*3/uL [place] Monocytes/100 WBC (Bld) 7 % 3 - 12 % [place] Platelet mean volume (Bld) [Entitic vol] 10.6 fL 8.1 - 13.5 fL [place] Platelets (Bld) [#/Vol] NOT REPORTED [place] Platelets (Bld) [#/Vol] 251 10*3/uL [place] RBC (Bld) [#/Vol] 4.52 10*6/uL 3.95 - 5.11 m/uL [place] RBC morphology finding Nom (Bld) NOT REPORTED [place] Segmented neutrophils/100 WBC (Bld) 65 % 36 - 65 % [place] Segs Absolute 6.18 [place] WBC (Bld) [#/Vol] 0.0 10*3/uL 0.0 per 100 WBC [place] WBC (Bld) [#/Vol] 9.4 10*3/uL [place] WBC Morphology NOT REPORTED [place] CBC with Diffon 09-01-2020 Abs. Basophil 0.10 k/uL Normal 0.00-0.20 [facility] Comment on above: Performed By: #### C DP, HCG, ALCB, BMPX, LIPR, GLYHGB #### [place] [address] Cmo & President: Dheeraj Garcia MD Abs.Imm.Granulocyte 0.06 k/uL Normal 0.00-0.30 [facility] Comment on above: Performed By: #### C DP, HCG, ALCB, BMPX, LIPR, GLYHGB #### [place] [address] Cmo & President: Dheeraj Garcia MD Abs.Neutrophil (Seg) 6.18 k/uL Normal 1.50-8.10 [facility] Comment on above: Performed By: #### C DP, HCG, ALCB, BMPX, LIPR, GLYHGB #### [place] [address] Cmo & President: Dheeraj Garcia MD Basophils/100 WBC (Bld) 1 % Normal 0-2 [facility] Comment on above: Performed By: #### C DP, HCG, ALCB, BMPX, LIPR, GLYHGB #### [place] [address] [employer]mo & President: Dheeraj Garcia MD Eosinophils (Bld) [#/Vol] 0.25 10*3/uL Normal 0.00-0.44 [facility] Comment on above: Performed By: #### C DP, HCG, ALCB, BMPX, LIPR, GLYHGB #### [address] [address] Cmo & President: Dheeraj Garcia MD Eosinophils/100 WBC (Bld) 3 % Normal 1-4 [facility] Comment on above: Performed By: #### C DP, HCG, ALCB, BMPX, LIPR, GLYHGB #### [address] [address] Cmo & President: Dheeraj Garcia MD Erythrocyte distribution width (RBC) [Ratio] 14.0 % Normal 11.8-14.4 [facility] Comment on above: Performed By: #### C DP, HCG, ALCB, BMPX, LIPR, GLYHGB #### [address] [address] Cmo & President: Dheeraj Garcia MD Hematocrit (Bld) [Volume fraction] 40.7 % Normal 36.3-47.1 [facility] Comment on above: Performed By: #### C DP, HCG, ALCB, BMPX, LIPR, GLYHGB #### [place] [address] Cmo & President: Dheeraj Garcia MD Hemoglobin (Bld) [Mass/Vol] 12.7 g/dL Normal 11.9-15.1 [facility] Comment on above: Performed By: #### C DP, HCG, ALCB, BMPX, LIPR, GLYHGB #### [place] [address] Cmo & President: Dheeraj Garcia MD Immature granulocytes (Bld) [#/Vol] 1 % High 0 [facility] Comment on above: Performed By: #### C DP, HCG, ALCB, BMPX, LIPR, GLYHGB #### [place] [address] Cmo & President: Dheeraj Garcia MD Lymphocytes (Bld) [#/Vol] 2.12 10*3/uL Normal 1.10-3.70 [facility] Comment on above: Performed By: #### C DP, HCG, ALCB, BMPX, LIPR, GLYHGB #### [address] [address] Cmo & President: Dheeraj Garcia MD Lymphocytes/100 WBC (Bld) 23 % Low 24-43 [facility] Comment on above: Performed By: #### C DP, HCG, ALCB, BMPX, LIPR, GLYHGB #### [facility] [employer] [employer] [address] [place] [address] Cmo & President: Dheeraj Garcia MD MCH (RBC) [Entitic mass] 28.1 pg Normal 25.2-33.5 [facility] Comment on above: Performed By: #### C DP, HCG, ALCB, BMPX, LIPR, GLYHGB #### [facility] [employer] [employer] [address] [place] [address] Cmo & President: Dheeraj Garcia MD MCHC (RBC) [Mass/Vol] 31.2 g/dL Normal 28.4-34.8 [facility] Comment on above: Performed By: #### C DP, HCG, ALCB, BMPX, LIPR, GLYHGB #### [facility] [employer] [employer] [address] [place] [address] Cmo & President: Dheeraj Garcia MD MCV (RBC) [Entitic vol] 90.0 fL Normal 82.6-102.9 [facility] Comment on above: Performed By: #### C DP, HCG, ALCB, BMPX, LIPR, GLYHGB #### [facility] [employer] [employer] [address] [place] [address] Cmo & President: Dheeraj Garcia MD Monocytes (Bld) [#/Vol] 0.68 10*3/uL Normal 0.10-1.20 [facility] Comment on above: Performed By: #### C DP, HCG, ALCB, BMPX, LIPR, GLYHGB #### [facility] [employer] [employer] [address] [place] [address] Cmo & President: Dheeraj Garcia MD Monocytes/100 WBC (Bld) 7 % Normal 3-12 [facility] Comment on above: Performed By: #### C DP, HCG, ALCB, BMPX, LIPR, GLYHGB #### [address] [address] Cmo & President: Dheeraj Garcia MD Neutrophil (Seg) 65 % Normal 36-65 [facility] Comment on above: Performed By: #### C DP, HCG, ALCB, BMPX, LIPR, GLYHGB #### [address] [address] Cmo & President: Dheeraj Garcia MD NRBC Automated 0.0 per 100 WBC Normal 0.0 [facility] Comment on above: Performed By: #### C DP, HCG, ALCB, BMPX, LIPR, GLYHGB #### [address] [address] Cmo & President: Dheeraj Garcia MD Platelet mean volume (Bld) [Entitic vol] 10.6 fL Normal 8.1-13.5 [facility] Comment on above: Performed By: #### C DP, HCG, ALCB, BMPX, LIPR, GLYHGB #### [address] [address] Cmo & President: Dheeraj Garcia MD Platelets (Bld) [#/Vol] 251 10*3/uL Normal 138-453 [facility] Comment on above: Performed By: #### C DP, HCG, ALCB, BMPX, LIPR, GLYHGB #### [address] [address] Cmo & President: Dheeraj Garcia MD RBC (Bld) [#/Vol] 4.52 10*6/uL Normal 3.95-5.11 [facility] Comment on above: Performed By: #### C DP, HCG, ALCB, BMPX, LIPR, GLYHGB #### [address] [address] Cmo & President: Dheeraj Garcia MD WBC (Bld) [#/Vol] 9.4 10*3/uL Normal 3.5-11.3 [facility] Comment on above: Performed By: #### C DP, HCG, ALCB, BMPX, LIPR, GLYHGB #### [facility] [employer] [employer] [address] [place] [address] Cmo & President: Dheeraj Garcia MD Auto Diff Performed NOT REPORTED Normal [facility] [facility] Comment on above: Performed By: #### C DP, HCG, ALCB, BMPX, LIPR, GLYHGB #### [facility] [employer], [employer] [address] [place] [phone] Cmo & President: Dheeraj Garcia MD Platelets (Bld) [#/Vol] NOT REPORTED Normal [facility] Comment on above: Performed By: #### C DP, HCG, ALCB, BMPX, LIPR, GLYHGB #### [facility] [employer], [employer] [address] [place] [phone] Cmo & President: Dheeraj Garcia MD RBC morphology finding Nom (Bld) NOT REPORTED Normal [facility] Comment on above: Performed By: #### C DP, HCG, ALCB, BMPX, LIPR, GLYHGB #### [facility] [employer], [employer] [address] [place] [phone] Cmo & President: Dheeraj Garcia MD WBC Morphology NOT REPORTED Normal [facility] Comment on above: Performed By: #### C DP, HCG, ALCB, BMPX, LIPR, GLYHGB #### [facility] [employer], [employer] [address] [place] [phone] Cmo & President: Dheeraj Garcia MD Echo Completeon 09-01-2020 [place], [place] Incoming C win Results From [facility]/Ge - 09/01/2020 3:37 PM EDT Transthoracic Echocardiography Report (TTE) Patient Name DENDINGER Date of Study 09/01/2020 YEYO Date of 1955 Gender Female Age 64 year(s) Race Room Number 0234 Height: 65 inch, 165.1 cm Corporate ID [id number] Weight: 232 pounds, 105.2 kg # Patient Acct [id number] BSA: 2.11 m^2 BMI: 38.61 # kg/m^2 MR # [id number] Slurry Mixer Pérez Lao Interpreting Physician Abundio Aguilar Fellow Referring Nurse Practitioner Interpreting Referring Physician Moisés Rodríguez Fellow Type of Study TTE procedure:2D Echocardiogram, M-Mode, Doppler, Color Doppler, Bubble Study. Procedure Date Date: 09/01/2020 Start: 07:38 AM Study Location: [facility] Technical Quality: Fair visualization Comments:Syncope, R/o [...] Wall E' velocity:0.07 m/s Lateral Wall E/E':8.8 [place] Transthoracic Echocardiography Report (TTE) Patient Name DENDINGER Date of Study 09/01/2020 YEYO Date of 1955 Gender Female Age 64 year(s) Race Room Number 0234 Height: 65 inch, 165.1 cm Corporate ID [id number] Weight: 232 pounds, 105.2 kg # Patient Acct [id number] BSA: 2.11 m^2 BMI: 38.61 # kg/m^2 MR # [id number] Slurry Mixer Pérez Lao Interpreting Physician Abundio Aguilar Fellow Referring Nurse Practitioner Interpreting Referring Physician Moisés Rodríguez Fellow Type of Study TTE procedure:2D Echocardiogram, M-Mode, Doppler, Color Doppler, Bubble Study. Procedure Date Date: 09/01/2020 Start: 07:38 AM Study Location: [facility] Technical Quality: Fair visualization Comments:Syncope, R/o [...] Wall E' velocity:0.07 m/s Lateral Wall E/E':8.8 [place] Ethanol 09-01-2020 Ethanol [Mass/Vol] mg/dL <10 mg/dL [place] Ethanol percent <0.010 <0.010 % [place] Ethanol Alcohol 09-01-2020 Ethanol [Mass/Vol] mg/dL Normal <10 [facility] Comment on above: Performed By: #### E RTPF #### [facility] [address] [place], [place] [id number] Cmo & President: Dheeraj Garcia MD Ethanol percent <0.010 Normal <0.010 [facility] Comment on above: Performed By: #### E RTPF #### [facility] [employer], [employer] [address] [place], [place] [phone] Cmo & President: Dheeraj Garcia MD HCG Qualitative, Serumon hCG Qual Negative NEGATIVE [place] Comment on above: Specimens with hCG l evels near the threshold of the test (25 mIU/mL) may give a negative or indeterminate result. In such cases, another test should be performed with a new specimen in 48-72 hours. If early is suspected clinically in this setting, correlation with quantitative serum b-hCG level is suggested. [employer] has confirmed the use of plasma for this test. This has not been cleared or approved by the U.S. Food and Drug Administration. The FDA has determined that such clearance is not necessary. HCG Screen, Bloodon 09-01-20 20 HCG Qn Negative Normal NEG [facility] Comment on above: Result Comment: Spec imens with hCG levels near the threshold of the test (25 mIU/mL) may give a negative or indeterminate result. In such cases, another test should be performed with a new specimen in 48-72 hours. If early is suspected clinically in this setting, correlation with quantitative serum b-hCG level is suggested. [employer] has confirmed the use of plasma for this test. This has not been cleared or approved by the U.S. Food and Drug Administration. The FDA has determined that such clearance is not necessary. Performed By: #### E RTPF #### [facility] [employer], [employer] [address] [place], [place] [phone] Cmo & President: Dheeraj Garcia MD Hematologyon 09-01-2020 WBC (Bld) [#/Vol] DUPLICATE ORDER per 100 WBC [place] Hemoglobin A1Con 09-01-2020 HbA1c (Bld) [Mass fraction] 151 mg/dL Normal [facility] Comment on above: Result Comment: The ADA and AACC recommend providing the estimated average glucose result to permit better patient understanding of their HBA1c result. Performed By: #### E RTPF #### [facility] [employer], [employer] [address] [place] [phone] Cmo & President: Dheeraj Garcia MD HbA1c (Bld) [Mass fraction] 6.9 % High 4.0-6.0 [facility] Comment on above: Performed By: #### E RTPF #### [facility] [employer], [employer] [address] [place] [phone] Cmo & President: Dheeraj Garcia MD Hemoglobin A1con 09-01-2020 Glucose [Mass/Vol] 151 mg/dL [place] Comment on above: The ADA and AACC rec ommend providing the estimated average glucose result to permit better patient understanding of their HBA1c result. HbA1c (Bld) [Mass fraction] 6.9 % High 4 - 6 % [place] Interpretation and review of laboratory results Abnormal [place] Lipid Profileon 09-01-2020 Cholesterol [Mass/Vol] 123 mg/dL Normal <200 [facility] Comment on above: Result Comment: Cholesterol Guidelines: <200 Desirable 200-240 Borderline >240 Undesirable Performed By: #### E RTPF #### [address] [address] Cmo & President: Dheeraj Garcia MD Cholesterol in HDL [Mass/Vol] 43 mg/dL Normal >40 [facility] Comment on above: Result Comment: HDL Guidelines: <40 Undesirable 40-59 Borderline >59 Desirable Performed By: #### E RTPF #### [address] [address] Cmo & President: Dheeraj Garcia MD Cholesterol in LDL [Mass/Vol] 50 mg/dL Normal 0-130 [facility] Comment on above: Result Comment: LDL Guidelines: <100 Desirable 100-129 Near to/above Desirable 130-159 Borderline >159 Undesirable Direct (measured) LDL and calculated LDL are not interchangeable tests. Performed By: #### E RTPF #### [address] [address] Cmo & President: Dheeraj Garcia MD Cholesterol.total/Ch olesterol in HDL [Mass ratio] 2.9 {ratio} Normal <5 [facility] Comment on above: Performed By: #### E RTPF #### [facility] [address] [place] [address] Cmo & President: Dheeraj Garcia MD Triglyceride [Mass/Vol] 149 mg/dL Normal <150 [facility] Comment on above: Result Comment: Triglyceride Guidelines: <150 Desirable 150-199 Borderline 200-499 High >499 Very high Based on AHA Guidelines for fasting triglyceride, August 2012. Performed By: #### E RTPF #### [facility] [employer], [employer] [address] [place] [phone] Cmo & President: Dheeraj Garcia MD Cholesterol in VLDL [Mass/Vol] NOT REPORTED Normal 1-30 [facility] Comment on above: Performed By: #### E RTPF #### [facility] [employer], [employer] [address] [place] [phone] Cmo & President: Dheeraj Garcia MD Lipid panel - fasting 08-17 Cholesterol [Mass/Vol] 123 mg/dL <200 [place] Comment on above: Cholesterol Guidelines: <200 Desirable 200-240 Borderline >240 Undesirable Cholesterol in HDL [Mass/Vol] 43 mg/dL >40 [place] Comment on above: HDL Guidelines: <40 Undesirable 40-59 Borderline >59 Desirable Cholesterol in LDL [Mass/Vol] 50 mg/dL 0 - 130 mg/dL [place] Comment on above: LDL Guidelines: <100 Desirable 100-129 Near to/above Desirable 130-159 Borderline >159 Undesirable Direct (measured) LDL and calculated LDL are not interchangeable tests. Cholesterol in VLDL [Mass/Vol] NOT REPORTED 1 - 30 mg/dL [place] Cholesterol.total/Ch olesterol in HDL [Mass ratio] 2.9 {ratio} <5 [place] Triglyceride [Mass/Vol] 149 mg/dL <150 [place] Comment on above: Triglyceride Guidelines: <150 Desirable 150-199 Borderline 200-499 High >499 Very high Based on AHA Guidelines for fasting triglyceride, August 2012. Metabolic Panelon 09-01-2020 GFR/1.73 sq M predicted among non-blacks MDRD (S/P/Bld) [Vol rate/Area] DUPLICATE ORDER [place] TRAUMA PANELon 09-01-2020 Hubert Test NOT REPORTED [place] Anion gap [Moles/Vol] DUPLICATE ORDER mmol/L [place] aPTT Coag (Bld) [Time] 27.5 s [place] Comment on above: IV Heparin Therapy Range: 48.6-77.8 aPTT Coag (Bld) [Time] 37.0 s [place] Blood Bank Specimen BILL FOR SERVICES PERFORMED [place] Carboxyhemoglobin 0.6 % 0 - 5 % [place] Comment on above: Reference Range: Non-Smokers 0-2% Average Smoker 2-4% Heavy Smoker <10% Chloride [Moles/Vol] DUPLICATE ORDER mmol/L [place] CO2 [Moles/Vol] DUPLICATE ORDER mmol/L [place] Creatinine [Mass/Vol] DUPLICATE ORDER mg/dL [place] Erythrocyte distribution width (RBC) [Ratio] DUPLICATE ORDER % [place] Ethanol [Mass/Vol] Order moved to [facility] draw time. [id number] mg/dL [place] Ethanol percent Order moved to [facility] draw time. [id number] % [place] FIO2 UNKNOWN [place] GFR DUPLICATE ORDER >60 mL/min [place] GFR Non- DUPLICATE ORDER >60 mL/min [place] Glucose [Mass/Vol] DUPLICATE ORDER mg/dL [place] hCG Qual Order moved to [facility] draw time. [id number] NEGATIVE [place] HCO3, Venous 27.6 mmol/L 24 - 30 mmol/L [place] Hematocrit (Bld) [Volume fraction] DUPLICATE ORDER % [place] Hemoglobin (Bld) [Mass/Vol] DUPLICATE ORDER g/dL [place] INR Coag (PPP) [Relative time] 1.0 {INR} [place] Comment on above: Therapeutic Range: Moderate Anticoagulant Intensity: INR = 2.0-3.0 High Anticoagulant Intensity: INR = 2.5-3.5 Interpretation and review of laboratory results Abnormal [place] MCH (RBC) [Entitic mass] DUPLICATE ORDER pg [place] MCHC (RBC) [Mass/Vol] DUPLICATE ORDER g/dL [place] MCV (RBC) [Entitic vol] DUPLICATE ORDER fL [place] Methemoglobin NOT REPORTED 0 - 1.5 % [place] Mode NOT REPORTED [place] Negative Base Excess, Christo NOT REPORTED 0 - 2 mmol/L [place] NOTIFICATION NOT REPORTED [place] NOTIFICATION TIME NOT REPORTED [place] O2 Device/Flow/% NOT REPORTED [place] Oxygen saturation in Blood 43.1 % Low 60 - 85 % [place] Oxyhemoglobin NOT REPORTED 95 - 98 % [place] pCO2, Christo 48.8 [place] pCO2, Christo, Temp Adj NOT REPORTED [place] Peep/Cpap NOT REPORTED [place] pH, Christo 7.371 [place] pH, Christo, Temp Adj NOT REPORTED [place] Platelet mean volume (Bld) [Entitic vol] DUPLICATE ORDER fL [place] Platelets (Bld) [#/Vol] DUPLICATE ORDER k/uL [place] pO2, Christo 23.6 Low [place] pO2, Christo, Temp Adj NOT REPORTED [place] Positive Base Excess, Christo 2.1 mmol/L High 0 - 2 mmol/L [place] Potassium [Moles/Vol] DUPLICATE ORDER mmol/L [place] PSV NOT REPORTED [place] PT Coag (PPP) [Time] 10.4 s [place] Pt. Position NOT REPORTED [place] RBC (Bld) [#/Vol] DUPLICATE ORDER m/uL [place] Sample Site NOT REPORTED [place] Set Rate NOT REPORTED [place] Sodium [Moles/Vol] DUPLICATE ORDER mmol/L [place] Text for Respiratory NOT REPORTED [place] Total Hb NOT REPORTED 12 - 16 g/dl [place] Total Rate NOT REPORTED [place] Urea nitrogen [Mass/Vol] DUPLICATE ORDER mg/dL [place] VT NOT REPORTED [place] Trauma Profileon 09-01-2020 aPTT Coag (Bld) [Time] 27.5 s Normal 20.5-30.5 [facility] Comment on above: Result Comment: IV Heparin Therapy Range: 48.6-77.8 Performed By: #### E RTPF #### [address] [id number] Cmo & President: Dheeraj Garcia MD INR Coag (PPP) [Relative time] 1.0 {INR} Normal [facility] Comment on above: Result Comment: Therapeutic Range: Moderate Anticoagulant Intensity: INR = 2.0-3.0 High Anticoagulant Intensity: INR = 2.5-3.5 Performed By: #### E RTPF #### [place] [phone] Cmo & President: Dheeraj Garcia MD PT Coag (PPP) [Time] 10.4 s Normal 9.0-12.0 [facility] Comment on above: Performed By: #### E RTPF #### [address] [phone] Cmo & President: Dheeraj Garcia MD Body Temp. 37.0 Normal [facility] Comment on above: Performed By: #### E RTPF #### [address] [place] [address] Cmo & President: Dheeraj Garcia MD Carboxy Hgb 0.6 % Normal 0-5 [facility] Comment on above: Result Comment: Reference Range: Non-Smokers 0-2% Average Smoker 2-4% Heavy Smoker <10% Performed By: #### E RTPF #### [address] [address] Cmo & President: Dheeraj Garcia MD FIO2 UNKNOWN Normal [facility] Comment on above: Performed By: #### E RTPF #### [address] [address] Cmo & President: Dheeraj Garcia MD HCO3 (Bld) [Moles/Vol] 27.6 mmol/L Normal 24-30 [facility] Comment on above: Performed By: #### E RTPF #### [address] [address] Cmo & President: Dheeraj Garcia MD Oxygen (Bld) [Partial pressure] 23.6 mm[Hg] Low 30-50 [facility] Comment on above: Performed By: #### E RTPF #### [address] [address] Cmo & President: Dheeraj Garcia MD Oxygen saturation in Blood 43.1 % Low 60.0-85.0 [facility] Comment on above: Performed By: #### E RTPF #### [address] [address] Cmo & President: Dheeraj Garcia MD pCO2 48.8 Normal 39-55 [facility] Comment on above: Performed By: #### E RTPF #### [address] [address] Cmo & President: Dheeraj Garcia MD pH (Bld) 7.371 [pH] Normal 7.320-7.42 0 [facility] Comment on above: Performed By: #### E RTPF #### [address] [address] Cmo & President: Dheeraj Garcia MD Positive Base Excess 2.1 mmol/L High 0.0-2.0 [facility] Comment on above: Performed By: #### E RTPF #### [address] [address] Cmo & President: Dheeraj Garcia MD Hubert Test NOT REPORTED Normal [facility] Comment on above: Performed By: #### E RTPF #### [address] [address] Cmo & President: Dheeraj Garcia MD Methemoglobin NOT REPORTED Normal 0.0-1.5 [facility] Comment on above: Performed By: #### E RTPF #### [address] [address] Cmo & President: Dheeraj Garcia MD Mode NOT REPORTED Normal [facility] Comment on above: Performed By: #### E RTPF #### [address] [address] Cmo & President: Dheeraj Garcia MD Negative Base Excess NOT REPORTED Normal 0.0-2.0 [facility] Comment on above: Performed By: #### E RTPF #### [facility] [employer], [employer] [address] [place] [address] Cmo & President: Dheeraj Garcia MD Notification Time NOT REPORTED Normal [facility] Comment on above: Performed By: #### E RTPF #### [address] [address] Cmo & President: Dheeraj Garcia MD Notification: NOT REPORTED Normal [facility] Comment on above: Performed By: #### E RTPF #### [address] [address] Cmo & President: Dheeraj Garcia MD O2 Device/Flow/% NOT REPORTED Normal [facility] Comment on above: Performed By: #### E RTPF #### [address] [address] Cmo & President: Dheeraj Garcia MD Oxyhemoglobin NOT REPORTED Normal 95.0-98.0 [facility] Comment on above: Performed By: #### E RTPF #### [address] [address] Cmo & President: Dheeraj Garcia MD Pco2 Adj'd for Temp. NOT REPORTED Normal 39-55 [facility] Comment on above: Performed By: #### E RTPF #### [address] [address] Cmo & President: Dheeraj Garcia MD PEEP/CPAP NOT REPORTED Normal [facility] Comment on above: Performed By: #### E RTPF #### [address] [address] Cmo & President: Dheeraj Garcia MD pH Adjst'd for Temp. NOT REPORTED Normal 7.320-7 .42 0 [facility] Comment on above: Performed By: #### E RTPF #### [address] [address] Cmo & President: Dheeraj Garcia MD pO2 Adj'd for Temp. NOT REPORTED Normal 30-50 [facility] Comment on above: Performed By: #### E RTPF #### [address] [address] Cmo & President: Dheeraj Garcia MD PSV NOT REPORTED Normal [facility] Comment on above: Performed By: #### E RTPF #### [place] [address] [place] [address] Cmo & President: Dheeraj Garcia MD Pt. Position NOT REPORTED Normal [facility] Comment on above: Performed By: #### E RTPF #### [facility] [address] [place] [address] Cmo & President: Dheeraj Garcia MD Set Rate NOT REPORTED Normal [facility] Comment on above: Performed By: #### E RTPF #### [address] [address] Cmo & President: Dheeraj Garcia MD Site Drawn NOT REPORTED Normal [facility] Comment on above: Performed By: #### E RTPF #### [address] [address] Cmo & President: Dheeraj Garcia MD Text for Respiratory NOT REPORTED Normal [facility] Comment on above: Performed By: #### E RTPF #### [address] [address] Cmo & President: Dheeraj Garcia MD Total Hb NOT REPORTED Normal 12.0-16.0 [facility] Comment on above: Performed By: #### E RTPF #### [address] [address] Cmo & President: Dheeraj Garcia MD Total Rate NOT REPORTED Normal [facility] Comment on above: Performed By: #### E RTPF #### [facility] [employer] [employer] [address] [place] [phone] Cmo & President: Dheeraj Garcia MD VT NOT REPORTED Normal [facility] Comment on above: Performed By: #### E RTPF #### [facility] [employer], [employer] [address] [place] [phone] Cmo & President: Dheeraj Garcia MD Blood Bank BILL FOR SERVICES PERFORMED Normal [facility] Comment on above: Performed By: #### E RTPF #### [place] [id number] [place] [phone] Cmo & President: Dheeraj Garcia MD CT CERVICAL SPINE WO [...] Krishna [place] DO 08/30/20 Final result Normal [facility] CT CHEST ABDOMEN PELVIS W [...] around a Ac catheter. Uterus is absent. Peritoneum/Retroperitoneum: No ascites or pneumoperitoneum. Atherosclerosis of the [...] Brenda Sheldon MD 08/30/20 Final result Normal [facility] CT LUMBAR SPINE TRAUMA RECON [...] degenerative changes of the lumbar spine. SOFT TISSUES/RETROPERITONEUM: No paraspinal mass is seen. Cortical cyst formation is seen on the upper pole of the left kidney. IMPRESSION: No evidence of an acute fracture or traumatic malalignment involving the lumbar spine. Interpreted by: Krishna Martell DO Signed by: Krishna Martell DO 08/30/20 Final result Normal [facility] CT THORACIC SPINE TRAUMA REC [...] Krishna Martell DO 08/30/20 Final result Normal [facility] CTA HEAD NECK W CONTRASTon [...] Dom Zhong MD 08/30/20 Final result Normal [facility] MRI LIMITED BRAINon 08-31-20 20 MRI LIMITED [...] bilateral upper and lower weaknesses FINDINGS: INTRACRANIAL STRUCTURES/VENTRICLES: There is no acute hemorrhage, mass effect, [...] without acute intracranial abnormality. Interpreted by: Hector Martinez MD Signed by: Hector Martinez MD 08/31/20 Final result Normal [facility] [place], [facility] Incoming R adiant Results From [facility] - 08/31/2020 11:56 AM EDT EXAMINATION: MRI [...] bilateral upper and lower weaknesses FINDINGS: INTRACRANIAL STRUCTURES/VENTRICLES: There is no acute hemorrhage, mass effect, [...] chronic microvascular disease without acute intracranial abnormality. nooked Minimal chronic microvascular disease without acute intracranial abnormality. [employer] EXAMINATION: MRI OF THE BRAIN WITHOUT CONTRAST [...] bilateral upper and lower weaknesses FINDINGS: INTRACRANIAL STRUCTURES/VENTRICLES: There is no acute hemorrhage, mass effect, [...] The soft tissues demonstrate no acute abnormality. [employer] Trauma Profileon 08-31-2020 Erythrocyte distribution width (RBC) [Ratio] 14.1 % Normal 11.8-14.4 [facility] Comment on above: Performed By: #### E RTPF #### [address] [address] Cmo & President: Dheeraj Garcia MD Hematocrit (Bld) [Volume fraction] 38.2 % Normal 36.3-47.1 [facility] Comment on above: Performed By: #### E RTPF #### [address] [address] Cmo & President: Dheeraj Garcia MD Hemoglobin (Bld) [Mass/Vol] 12.3 g/dL Normal 11.9-15.1 [facility] Comment on above: Performed By: #### E RTPF #### [address] [address] Cmo & President: Dheeraj Garcia MD MCH (RBC) [Entitic mass] 28.9 pg Normal 25.2-33.5 [facility] Comment on above: Performed By: #### E RTPF #### [address] [address] Cmo & President: Dheeraj Garcia MD MCHC (RBC) [Mass/Vol] 32.2 g/dL Normal 28.4-34.8 [facility] Comment on above: Performed By: #### E RTPF #### [address] [address] Cmo & President: Dheeraj Garcia MD MCV (RBC) [Entitic vol] 89.7 fL Normal 82.6-102.9 [facility] Comment on above: Performed By: #### E RTPF #### [address] [address] Cmo & President: Dheeraj Garcia MD NRBC Automated 0.0 per 100 WBC Normal 0.0 [facility] Comment on above: Performed By: #### E RTPF #### [address] [address] Cmo & President: Dheeraj Garcia MD Platelet mean volume (Bld) [Entitic vol] 10.6 fL Normal 8.1-13.5 [facility] Comment on above: Performed By: #### E RTPF #### [address] [address] Cmo & President: Dheeraj Garcia MD Platelets (Bld) [#/Vol] 268 10*3/uL Normal 138-453 [facility] Comment on above: Performed By: #### E RTPF #### [address] [address] Cmo & President: Dheeraj Garcia MD RBC (Bld) [#/Vol] 4.26 10*6/uL Normal 3.95-5.11 [facility] Comment on above: Performed By: #### E RTPF #### [address] [address] Cmo & President: Dheeraj Garcia MD WBC (Bld) [#/Vol] 8.7 10*3/uL Normal 3.5-11.3 [facility] Comment on above: Performed By: #### E RTPF #### [address] [address] Cmo & President: Dheeraj Garcia MD (cont.) Normal [facility] Comment on above: Result Comment: Aver age GFR for 60-69 years old: 85 mL/min/1.73sq m Chronic Kidney Disease: <60 mL/min/1.73sq m Kidney failure: <15 mL/min/1.73sq m eGFR calculated using average adult body mass. Additional eGFR calculator available at: http://www.Meaningfy.Yuantiku/multiple_crcl_2012.htm Performed By: #### E RTPF #### [address] [address] Cmo & President: Dheeraj Garcia MD Anion gap [Moles/Vol] 10 mmol/L Normal 9-17 [facility] Comment on above: Performed By: #### E RTPF #### [address] [address] Cmo & President: Dheeraj Garcia MD Chloride [Moles/Vol] 106 mmol/L Normal 98-107 [facility] Comment on above: Performed By: #### E RTPF #### [address] [address] Cmo & President: Dheeraj Garcia MD CO2 [Moles/Vol] 23 mmol/L Normal 20-31 [facility] Comment on above: Performed By: #### E RTPF #### [address] [address] Cmo & President: Dheeraj Garcia MD Creatinine [Mass/Vol] 0.62 mg/dL Normal 0.50-0.90 [facility] Comment on above: Performed By: #### E RTPF #### [address] [address] Cmo & President: Dheeraj Garcia MD Ethanol [Mass/Vol] mg/dL Normal <10 [facility] Comment on above: Performed By: #### E RTPF #### [address] [address] Cmo & President: Dheeraj Garcia MD Ethanol percent <0.010 Normal <0.010 [facility] Comment on above: Performed By: #### E RTPF #### [address] [address] Cmo & President: Dheeraj Garcia MD GFR, Amer >60 Normal >60 [facility] Comment on above: Performed By: #### E RTPF #### [address] [address] Cmo & President: Dheeraj Garcia MD GFR,non Amer >60 Normal >60 [facility] Comment on above: Performed By: #### E RTPF #### [address] [address] Cmo & President: Dheeraj Garcia MD Glucose [Mass/Vol] 186 mg/dL High 70-99 [facility] Comment on above: Performed By: #### E RTPF #### [address] [address] Cmo & President: Dheeraj Garcia MD Potassium [Moles/Vol] 3.5 mmol/L Low 3.7-5.3 [facility] Comment on above: Performed By: #### E RTPF #### [address] [address] Cmo & President: Dheeraj Garcia MD Sodium [Moles/Vol] 139 mmol/L Normal 135-144 [facility] Comment on above: Performed By: #### E RTPF #### [address] [address] Cmo & President: Dheeraj Garcia MD Urea nitrogen [Mass/Vol] 11 mg/dL Normal 8-23 [facility] Comment on above: Performed By: #### E RTPF #### [address] [address] Cmo & President: Dheeraj Garcia MD aPTT Coag (Bld) [Time] 24.4 s Normal 20.5-30.5 [facility] Comment on above: Result Comment: IV Heparin Therapy Range: 48.6-77.8 Performed By: #### E RTPF #### [address] [address] Cmo & President: Dheeraj Garcia MD INR Coag (PPP) [Relative time] 1.0 {INR} Normal [facility] Comment on above: Result Comment: Therapeutic Range: Moderate Anticoagulant Intensity: INR = 2.0-3.0 High Anticoagulant Intensity: INR = 2.5-3.5 Performed By: #### E RTPF #### [address] [address] Cmo & President: Dheeraj Garcia MD PT Coag (PPP) [Time] 10.5 s Normal 9.0-12.0 [facility] Comment on above: Performed By: #### E RTPF #### [address] [address] Cmo & President: Dheeraj Garcia MD Body Temp. 37.0 Normal [facility] Comment on above: Performed By: #### E RTPF #### [address] [address] Cmo & President: Dheeraj Garcia MD Carboxy Hgb 2.2 % Normal 0-5 [facility] Comment on above: Result Comment: Reference Range: Non-Smokers 0-2% Average Smoker 2-4% Heavy Smoker <10% Performed By: #### E RTPF #### [address] [address] Cmo & President: Dheeraj Garcia MD FIO2 INFORMATION NOT PROVIDED Normal [facility] Comment on above: Performed By: #### E RTPF #### [address] [address] Cmo & President: Dheeraj Garcia MD HCO3 (Bld) [Moles/Vol] 23.6 mmol/L Low 24-30 [facility] Comment on above: Performed By: #### E RTPF #### [address] [place] [address] Cmo & President: Dheeraj Garcia MD Negative Base Excess 0.8 mmol/L Normal 0.0-2.0 [facility] Comment on above: Performed By: #### E RTPF #### [address] [address] Cmo & President: Dheeraj Garcia MD Oxygen (Bld) [Partial pressure] 143.0 mm[Hg] High 30-50 [facility] Comment on above: Performed By: #### E RTPF #### [address] [address] Cmo & President: Dheeraj Garcia MD Oxygen saturation in Blood 98.6 % High 60.0-85.0 [facility] Comment on above: Performed By: #### E RTPF #### [address] [address] Cmo & President: Dheerja Garcia MD pCO2 40.6 Normal 39-55 [facility] Comment on above: Performed By: #### E RTPF #### [address] [address] Cmo & President: Dheeraj Garcia MD pH (Bld) 7.383 [pH] Normal 7.320-7.42 0 [facility] Comment on above: Performed By: #### E RTPF #### [address] [address] Cmo & President: Dheeraj Garcia MD Blood Bank BILL FOR SERVICES PERFORMED Normal [facility] Comment on above: Performed By: #### E RTPF #### [address] [address] Cmo & President: Dheeraj Garcia MD Hubert Test NOT REPORTED Normal [facility] Comment on above: Performed By: #### E RTPF #### [address] [place] [address] Cmo & President: Dheeraj Garcia MD Methemoglobin NOT REPORTED Normal 0.0-1.5 [facility] Comment on above: Performed By: #### E RTPF #### [address] [address] Cmo & President: Dheeraj Garcia MD Mode NOT REPORTED Normal [facility] Comment on above: Performed By: #### E RTPF #### [address] [address] Cmo & President: Dheeraj Garcia MD Notification Time NOT REPORTED Normal [facility] Comment on above: Performed By: #### E RTPF #### [address] [address] Cmo & President: Dheeraj Garcia MD Notification: NOT REPORTED Normal [facility] Comment on above: Performed By: #### E RTPF #### [address] [address] Cmo & President: Dheeraj Garcia MD O2 Device/Flow/% NOT REPORTED Normal [facility] Comment on above: Performed By: #### E RTPF #### [address] [address] Cmo & President: Dheeraj Garcia MD Oxyhemoglobin NOT REPORTED Normal 95.0-98.0 [facility] Comment on above: Performed By: #### E RTPF #### [address] [address] Cmo & President: Dheeraj Garcia MD Pco2 Adj'd for Temp. NOT REPORTED Normal 39-55 [facility] Comment on above: Performed By: #### E RTPF #### [address] [address] Cmo & President: Dheeraj Garcia MD PEEP/CPAP NOT REPORTED Normal [facility] Comment on above: Performed By: #### E RTPF #### [address] [address] Cmo & President: Dheeraj Garcia MD pH Adjst'd for Temp. NOT REPORTED Normal 7.320-7 .42 0 [facility] Comment on above: Performed By: #### E RTPF #### [address] [address] Cmo & President: Dheeraj Garcia MD pO2 Adj'd for Temp. NOT REPORTED Normal 30-50 [facility] Comment on above: Performed By: #### E RTPF #### [address] [address] Cmo & President: Dheeraj Garcia MD Positive Base Excess NOT REPORTED Normal 0.0-2.0 [facility] Comment on above: Performed By: #### E RTPF #### [address] [address] Cmo & President: Dheeraj Garcia MD PSV NOT REPORTED Normal [facility] Comment on above: Performed By: #### E RTPF #### [address] [address] Cmo & President: Dheeraj Garcia MD Pt. Position NOT REPORTED Normal [facility] Comment on above: Performed By: #### E RTPF #### [address] [address] Cmo & President: Dheeraj Garcia MD Set Rate NOT REPORTED Normal [facility] Comment on above: Performed By: #### E RTPF #### [address] [address] Cmo & President: Dheeraj Garcia MD Site Drawn NOT REPORTED Normal [facility] Comment on above: Performed By: #### E RTPF #### [address] [address] Cmo & President: Dheeraj Garcia MD Staging: NOT REPORTED Normal [facility] Comment on above: Performed By: #### E RTPF #### [address] [address] Cmo & President: Dheeraj Garcia MD Text for Respiratory NOT REPORTED Normal [facility] Comment on above: Performed By: #### E RTPF #### [address] [address] Cmo & President: Dheeraj Garcia MD Total Hb NOT REPORTED Normal 12.0-16.0 [facility] Comment on above: Performed By: #### E RTPF #### [address] [address] Cmo & President: Dheeraj Garcia MD Total Rate NOT REPORTED Normal [facility] Comment on above: Performed By: #### E RTPF #### [address] [address] Cmo & President: Dheeraj Garcia MD VT NOT REPORTED Normal [facility] Comment on above: Performed By: #### E RTPF #### [address] [address] Cmo & President: Dheeraj Garcia MD Type + Screenon 08-31-2020 Type + Screen Sample Expiration 09/02/2020,2359 Arm Band Number [id number] ABO/Rh(D) O POSITIVE Antibody Screen NEGATIVE Normal [facility] Comment on above: Performed By: #### T YS #### [address] [address] Cmo & President: Dheeraj Garcia MD XR SHOULDER LEFT (MIN [...] Delmis Adams MD 08/31/20 Final result Normal [facility] EXAMINATION: TWO XRA Y VIEWS OF THE LEFT SHOULDER 08/31/2020 8:25 am COMPARISON: None. HISTORY: ORDERING SYSTEM PROVIDED HISTORY: trauma TECHNOLOGIST PROVIDED HISTORY: trauma Reason for Exam: trauma Acuity: Acute Type of Exam: Initial FINDINGS: The bones and joints are unremarkable without definite fracture, dislocation, abnormal soft tissue calcification or bony destructive lesion [place] Unremarkable three v iew left shoulder series [place], [employer] Incoming R adiant Results From Relay/Pacs - 08/31/2020 8:46 AM EDT EXAMINATION: TWO [...] IMPRESSION: Unremarkable three view left shoulder series [place] CERVICAL SPINE WO CONTRAS Ton 08-30-2020 No evidence of an ac win[place] fracture or traumatic malalignment involving the cervical spine [place] EXAMINATION: CT OF T HE CERVICAL SPINE WITHOUT CONTRAST 08/30/2020 9:33 pm [...] There is no prevertebral soft tissue swelling. [place], [place] Incoming R adiant Results From Relay/Kyrons - 08/30/2020 11:01 PM EDT EXAMINATION: CT [...] or traumatic malalignment involving the cervical spine [place] CHEST ABDOMEN PELVIS W CO NTRASTon 08-30-2020 EXAMINATION: CT OF T HE CHEST, ABDOMEN, AND PELVIS WITH CONTRAST 08/30/2020 [...] around a Ac catheter. Uterus is absent. Peritoneum/Retroperitoneum: No ascites or pneumoperitoneum. Atherosclerosis of the nondilated abdominal aorta. Bones/Soft Tissues: No acute osseous abnormality. [facility] [place], [place], [place] Incoming R adiant Results From Relay/Wizdee - 08/30/2020 11:25 PM EDT EXAMINATION: CT [...] around a Ac catheter. Uterus is absent. Peritoneum/Retroperitoneum: No ascites or pneumoperitoneum. Atherosclerosis of the [...] could provide further information as clinically indicated. [place] 1. No acute or traum atic intrathoracic abnormality. 2. No acute or traumatic intra-abdominal abnormality. 3. Dilation of the main pulmonary artery, suggestive of pulmonary artery hypertension. 4. Hepatic steatosis. 5. 1.6 cm left upper pole renal lesion is indeterminate, possibly a cyst. Renal protocol CT or MRI could provide further information as clinically indicated. [place] LUMBAR SPINE TRAUMA RECON STRUCTIONon 08-30-2020 EXAMINATION: CT OF T HE LUMBAR SPINE WITHOUT CONTRAST 08/30/2020 TECHNIQUE: CT [...] degenerative changes of the lumbar spine. SOFT TISSUES/RETROPERITONEUM: No paraspinal mass is seen. Cortical cyst formation is seen on the upper pole of the left kidney. [place], [place] Incoming R adiant Results From Relay/Pacs - 08/30/2020 11:26 PM EDT EXAMINATION: CT [...] degenerative changes of the lumbar spine. SOFT TISSUES/RETROPERITONEUM: No paraspinal mass is seen. Cortical cyst formation is seen on the upper pole of the left kidney. IMPRESSION: No evidence of an acute fracture or traumatic malalignment involving the lumbar spine. [place] No evidence of an ac [place] fracture or traumatic malalignment involving the lumbar spine. [place] THORACIC SPINE TRAUMA REC ONSTRUCTIONon 08-30-2020 EXAMINATION: CT OF T HE THORACIC SPINE WITHOUT CONTRAST 08/30/2020 10:31 pm: [...] the lung bases. No pneumothorax is noted. [place] Incoming R adiant Results From Relay/Wizdee - 08/30/2020 11:29 PM EDT EXAMINATION: CT [...] or traumatic malalignment involving the thoracic spine [place] No evidence of an ac [place] fracture or traumatic malalignment involving the thoracic spine [place] CTA HEAD NECK W CONTRASTon 1 Unremarkable CTA of the neck. 50% stenosis left intracranial ICA, otherwise unremarkable CTA head. [place] Incoming R adiant Results From Neboe/Pacs - 08/30/2020 11:48 PM EDT EXAMINATION: CTA [...] left intracranial ICA, otherwise unremarkable CTA head. [facility] [place] EXAMINATION: CTA OF THE HEAD AND [...] fluid collection. The durán-white differentiation is maintained. [employer] [facility] [place] TYPE AND SCREENon 08-30-2020 ABO/Rh Positive [facility] [place] Arm Band Number [id number] [facility] [place] Expiration Date 09/02/2020,1764 [facility] [place] Trauma Panelon 08-30-2020 Hubert Test NOT REPORTED [facility] [place] Anion gap [Moles/Vol] 10 mmol/L 9 - 17 mmol/L [facility] [place] aPTT Coag (Bld) [Time] 37.0 s [place] aPTT Coag (Bld) [Time] 24.4 s [place] Comment on above: IV Heparin Therapy Range: 48.6-77.8 Blood Bank Specimen BILL FOR SERVICES PERFORMED [place] Carboxyhemoglobin 2.2 % 0 - 5 % [place] Comment on above: Reference Range: Non-Smokers 0-2% Average Smoker 2-4% Heavy Smoker <10% Chloride [Moles/Vol] 106 mmol/L 98 - 10 7 mmol/L [place] CO2 [Moles/Vol] 23 mmol/L 20 - 31 mmol/L [place] Creatinine [Mass/Vol] 0.62 mg/dL 0.5 - 0.9 mg/dL [place] Erythrocyte distribution width (RBC) [Ratio] 14.1 % 11.8 - 14.4 % [place] Ethanol [Mass/Vol] mg/dL <10 mg/dL [place] Ethanol percent <0.010 <0.010 % [place] FIO2 INFORMATION NOT PROVIDED [place] GFR >60 >60 mL/min [place] GFR Non- >60 >60 mL/min [place] GFR/1.73 sq M predicted among non-blacks MDRD (S/P/Bld) [Vol rate/Area] [place] Comment on above: Average GFR for 60-6 9 years old: 85 mL/min/1.73sq m Chronic Kidney Disease: <60 mL/min/1.73sq m Kidney failure: <15 mL/min/1.73sq m eGFR calculated using average adult body mass. Additional eGFR calculator available at: http://www.Meaningfy.com/multiple_crcl_2012.htm GFR/1.73 sq M predicted among non-blacks MDRD (S/P/Bld) [Vol rate/Area] NOT REPORTED [place] Glucose [Mass/Vol] 186 mg/dL High 70 - 99 mg/dL [place] hCG Qual CANCELLED PER ED NEGATIVE [place] HCO3, Venous 23.6 mmol/L Low 24 - 30 mmol/L [place] Hematocrit (Bld) [Volume fraction] 38.2 % 36.3 - 47.1 % [place] Hemoglobin (Bld) [Mass/Vol] 12.3 g/dL 11.9 - 15.1 g/dL [place] INR Coag (PPP) [Relative time] 1.0 {INR} [place] Comment on above: Therapeutic Range: Moderate Anticoagulant Intensity: INR = 2.0-3.0 High Anticoagulant Intensity: INR = 2.5-3.5 Interpretation and review of laboratory results Abnormal [place] MCH (RBC) [Entitic mass] 28.9 pg 25.2 - 33.5 pg [place] MCHC (RBC) [Mass/Vol] 32.2 g/dL 28.4 - 34.8 g/dL [place] MCV (RBC) [Entitic vol] 89.7 fL 82.6 - 102.9 fL [place] Methemoglobin NOT REPORTED 0 - 1.5 % [place] Mode NOT REPORTED [place] Negative Base Excess, Christo 0.8 mmol/L 0 - 2 mmol/L [place] NOTIFICATION NOT REPORTED [place] NOTIFICATION TIME NOT REPORTED [place] O2 Device/Flow/% NOT REPORTED [place] Oxygen saturation in Blood 98.6 % High 60 - 85 % [place] Oxyhemoglobin NOT REPORTED 95 - 98 % [place] pCO2, Christo 40.6 [place] pCO2, Christo, Temp Adj NOT REPORTED [place] Peep/Cpap NOT REPORTED [place] pH, Christo 7.383 [place] pH, Christ[place], Temp Adj NOT REPORTED [place] Platelet mean volume (Bld) [Entitic vol] 10.6 fL 8.1 - 13.5 fL [place] Platelets (Bld) [#/Vol] 268 10*3/uL [place] pO2, Christo 143.0 High [place] pO2, Christo, Temp Adj NOT REPORTED [place] Positive Base Excess, Christo NOT REPORTED 0 - 2 mmol/L [place] Potassium [Moles/Vol] 3.5 mmol/L Low 3.7 - 5.3 mmol/L [place] PSV NOT REPORTED [place] PT Coag (PPP) [Time] 10.5 s [place] Pt. Position NOT REPORTED [place] RBC (Bld) [#/Vol] 4.26 10*6/uL 3.95 - 5.11 m/uL [place] Sample Site NOT REPORTED [place] Set Rate NOT REPORTED [place] Sodium [Moles/Vol] 139 mmol/L 135 - 144 mmol/L [place] Text for Respiratory NOT REPORTED [place] Total Hb NOT REPORTED 12 - 16 g/dl [place] Total Rate NOT REPORTED [place] Urea nitrogen [Mass/Vol] 11 mg/dL 8 - 23 mg/dL [place] NOT REPORTED [place] WBC (Bld) [#/Vol] 0.0 10*3/uL 0.0 per 100 WBC [place] WBC (Bld) [#/Vol] 8.7 10*3/uL [place] PROGRESSon 03-24-2019 Protein mass conc HNO ID: [id number] Author: Kamilah Jean) Kyle Service: ? Author Type: Physician Maintainability Engineer Type: Progress Notes Filed: 03/25/2019 10:38 AM Note Text: [facility] NOTE NAME: SHEMAR AVILA NO.: [id number] DATE OF SERVICE: 03/24/2019 [facility] DATE OF : 1955 CHIEF COMPLAINT: Skilled followup visit for discharge. Also complains of a cyst on her back. SUBJECTIVE FINDINGS: The patient was seen in her room today at [facility]. She is tentatively scheduled for discharge to [...] above. MEDICATIONS: Medications were reviewed in the residential records. OARRS report was run today and [...] DICTATED BY: Kamilah Wright PA-C PG/Niharika JOB# [id number] cc:[facility] Normal [facility] PROGRESSon 03-22-2019 Protein mass conc HNO ID: [id number] Author: Kamilah Wright (Pa) Service: ? Author Type: Physician Maintainability Engineer Type: Progress Notes Filed: 03/23/2019 11:37 AM Note Text: [facility] NOTE NAME: SHEMAR AVILA NO.: [id number] DATE OF SERVICE: 03/22/2019 [facility] DATE OF : 1955 CHIEF COMPLAINT: Skilled followup visit for stroke; today complaining of heartburn. SUBJECTIVE FINDINGS: The patient was seen in the therapy department at [facility]. She reports that overall she is feeling [...] SYSTEMS: See above. MEDICATIONS: Reviewed in the residential record. CODE STATUS: Full code. PHYSICAL EXAM: [...] DICTATED BY: Kamilah Wright PA-C PG/Niharika JOB# [id number] cc:[facility] Normal [facility] PROGRESSon 03-19-2019 Protein mass conc HNO ID: [id number] Author: Kamilah Wright (Pa) Service: ? Author Type: Physician Maintainability Engineer Type: Progress Notes Filed: 03/22/2019 12:17 PM Note Text: [facility] NOTE NAME: SHEMAR AVILA NO.: [id number] DATE OF SERVICE: 03/19/2019 [facility] DATE OF : 1955 CHIEF COMPLAINT: Follow up for stroke and weakness. SUBJECTIVE FINDINGS: The patient was seen in her room at [facility]. She is complaining of a headache today. [...] SYSTEMS: See above. MEDICATIONS: Reviewed in the residential record. CODE STATUS: Full code. PHYSICAL EXAM: [...] DICTATED BY: Kamilah Wright PA-C PG/Niharika JOB# [id number] cc:[facility] Normal [facility] PROGRESSon 03-17-2019 Protein mass conc HNO ID: [id number] Author: Kamilah Wright (Pa) Service: ? Author Type: Physician Maintainability Engineer Type: Progress Notes Filed: 03/18/2019 10:28 AM Note Text: [facility] NOTE NAME: SHEMAR AVILA NO.: [id number] DATE OF SERVICE: 03/17/2019 [facility] DATE OF : 1955 CHIEF COMPLAINT: Follow up for stroke and weakness. SUBJECTIVE FINDINGS: The patient was seen in the therapy department at [facility]. She is doing very well with therapy [...] SYSTEMS: See above. MEDICATIONS: Reviewed in the residential record. CODE STATUS: Full code. PHYSICAL EXAM: [...] DICTATED BY: Kamilah Wright PA-C PG/Niharika JOB# [id number] cc:[facility]iana Mota Normal [facility] PROGRESSon 03-15-2019 Protein mass conc HNO ID: [id number] Author: Kyra Butler Service: ? Author Type: Physician Type: Progress Notes Filed: 03/18/2019 5:07 PM Note Text: [facility] NOTE NAME: YEYO AVILA COLEEN NO.: [id number] DATE OF SERVICE: 03/15/2019 [facility] DATE OF : 1955 New Patient History and Physical HISTORY OF PRESENT ILLNESS: The patient is a 63-year-old female was admitted to us from [facility] in [place] with the diagnoses of complicated headache syndrome [...] was negative. She was then transferred to [facility] where repeat CT scan along with [...] therapy. DICTATED BY: MD NELIDA Larose/Niharika JOB# [id number] cc:Viviana Mota Normal [facility] Vital Signs Date Time Vital Sign Value Performing Clinician Facility 05-13-2024 10:43-0400 Blood Pressure Location [facility] 05-13-2024 10:43-0400 Diastolic blood pressure 75 mm[Hg] [facility] 05-13-2024 10:43-0400 Heart rate 64 /min [facility] 05-13-2024 10:43-0400 Respiratory rate 16 /min [facility] 05-13-2024 10:43-0400 Systolic blood pressure 117 mm[Hg] [facility] 07-13-2023 11:32-0400 Body temperature 97.88 [degF] [facility] 07-13-2023 11:32-0400 Diastolic blood pressure 85 mm[Hg] [facility] 07-13-2023 11:32-0400 Heart rate 76 /min [facility] 07-13-2023 11:32-0400 Respiratory rate 18 /min [facility] 07-13-2023 11:32-0400 SaO2% (BldA) [Mass fraction] 97 % [facility] 07-13-2023 11:32-0400 Systolic blood pressure 147 mm[Hg] [facility] 02-24-2023 13:08-0400 Promise to Return Ronobir FELICIA [facility] 02-24-2023 12:00-0400 Hourly Rounding Ronobir FELICIA [facility] 02-24-2023 12:00-0400 Promise to Return Ronobir FELICIA [facility] 02-24-2023 11:56-0400 Heart rate 62 /min Ronobir FELICIA [facility] 02-24-2023 11:56-0400 SaO2% (BldA) [Mass fraction] 97 % Ronobir FELICIA [facility] 02-24-2023 11:54-0400 Diastolic blood pressure 67 mm[Hg] Ronobir FELICIA [facility] 02-24-2023 11:54-0400 Mean blood pressure 88 mm[Hg] Ronobir FELICIA [facility] 02-24-2023 11:54-0400 Systolic blood pressure 130 mm[Hg] Ronobir FELICIA [facility] 02-24-2023 11:54-0400 Body temperature 97.88 [degF] Ronobir FELICIA [facility] 02-24-2023 11:11-0400 Hourly Rounding Ronobir FELICIA [facility] 02-24-2023 11:11-0400 Promise to Return Ronobir FELICIA [facility] 02-24-2023 11:00-0400 Hourly Rounding Ronobir FELICIA [facility] 02-24-2023 07:50-0400 SaO2% (BldA) [Mass fraction] 98 % Ronobir FELICIA [facility] 02-24-2023 07:43-0400 Heart rate 61 /min Ronobir FELICIA [facility] 02-24-2023 07:43-0400 SaO2% (BldA) [Mass fraction] 98 % Ronobir FELICIA [facility] 02-24-2023 07:41-0400 Body temperature 98.06 [degF] Ronobir FELICIA [facility] 02-24-2023 07:41-0400 Diastolic blood pressure 74 mm[Hg] Ronobir FELICIA [facility] 02-24-2023 07:41-0400 Mean blood pressure 92 mm[Hg] Ronobir FELICIA [facility] 02-24-2023 07:41-0400 Systolic blood pressure 128 mm[Hg] Ronobir FELICIA [facility] 02-24-2023 03:47-0400 Blood Pressure Location Ronobir FELICIA [facility] 02-24-2023 03:47-0400 Body temperature 97.52 [degF] Ronobir FELICIA [facility] 02-24-2023 03:47-0400 Diastolic blood pressure 70 mm[Hg] Ronobir FELICIA [facility] 02-24-2023 03:47-0400 Heart rate 57 /min Ronobir FELICIA [facility] 02-24-2023 03:47-0400 Mean blood pressure 87 mm[Hg] Ronobir FELICIA [facility] 02-24-2023 03:47-0400 Respiratory rate 17 /min Ronobir FELICIA [facility] 02-24-2023 03:47-0400 Systolic blood pressure 120 mm[Hg] Ronobir FELICIA [facility] 02-24-2023 03:06-0400 Mean blood pressure 77 mm[Hg] Ronobir FELICIA [facility] 02-24-2023 03:06-0400 Respiratory rate 16 /min Ronobir FELICIA [facility] 02-24-2023 02:49-0400 Respiratory rate 16 /min Ronobir FELICIA [facility] 02-24-2023 02:04-0400 Body temperature 96.8 [degF] Ronobir FELICIA [facility] 02-24-2023 02:04-0400 Mean blood pressure 68 mm[Hg] Ronobir FELICIA [facility] 02-24-2023 01:09-0400 Body temperature 96.62 [degF] Ronobir FELICIA [facility] 02-24-2023 00:21-0400 Heart rate 58 /min Ronobir FELICIA [facility] 02-24-2023 00:06-0400 gluc 139 mg/dL Ronobir FELICIA [facility] 02-24-2023 00:06-0400 Heart rate 61 /min Ronobir FELICIA [facility] 02-18-2022 13:50-0400 Body height 165.1 cm MD Shaikh Hernandez Work Phone: [facility] 02-18-2022 13:50-0400 Body weight 104.32 kg MD Shaikh Hernandez Work Phone: [facility] 09-01-2020 16:00-0400 BP Diastolic 85 mm[Hg] [facility] [place] [facility] 16:00-0400 BP Systolic 158 mm[Hg] [facility] [place] 09-01-2020 14:12-0400 Pulse (Heart Rate) 72 /min Dank Nunes [facility], [place] 09-01-2020 13:30-0400 Respiratory rate NOT REPORTED Dank Nunes [facility], [place] 09-01-2020 12:27-0400 Body Temperature 97.7 [degF] [facility] [place] [facility] 12:27-0400 Pulse Oximetry 94 % [place] 09-01-2020 07:15-0400 Respiratory rate NOT REPORTED [facility] Comment on above: Performed By: #### ERTPF #### [employer] [address] [place], [place] [id number] Cmo & President: Dheeraj Garcia MD 09-01-2020 04:45-0400 Respiratory Rate 15 /min Dankpaula Nunes [place], [place] 08-31-2020 18:45-0400 BMI (Body Mass Index) 38.72 kg/m2 Dank Rodgers [place] 08-31-2020 18:45-0400 Body weight 105.55 [place] 08-31-2020 18:45-0400 Height 165.1 cm [place] 08-31-2020 00:34-0400 Respiratory rate NOT REPORTED [facility] Comment on above: Performed By: #### ERTPF #### [employer] [address] [place], [place] [id number] Cmo & President: Dheeraj Garcia MD 08-30-2020 23:08-0400 Respiratory rate NOT REPORTED Dank Nunes [place] Encounters Encounter Date Encounter Type Care Provider Facility Start: 02-07-2025 ambulatory Arturo Leal ty:YOHANA [place] Start: 06-23-2024 End: 06-23-2024 ambulatory Dom BALBUENAL Facility:CD:[id number] Start: 05-13-2024 End: 05-13-2024 ambulatory Dom R NILL Facility:[facility] Start: 05-13-2024 End: 05-13-2024 Patient encounter procedure Dom MENDEZ [facility] [place] Start: 04-23-2024 ambulatory Dom MENDEZ Facility:[facility] Start: 01-14-2024 End: 01-14-2024 ambulatory AB [facility] Start: 12-30-2023 End: 12-30-2023 Patient encounter procedure Arturo Bates MAGDALENO [facility] Start: 07-13-2023 End: 07-13-2023 Emergency department patient visit Zaki Muñoz [facility] Start: 07-08-2023 End: 07-08-2023 ambulatory ALEXIA CLINE [facility] Start: 04-25-2023 End: 04-25-2023 ambulatory [facility] Start: 04-15-2023 End: 04-15-[address] ROBIN PONCE . Facility:[facility] Start: 04-01-2023 End: 04-01-[address] DANK JOHNSON Facility:[facility] Start: 04-01-2023 End: 04-02-[address] DOCTOR CASTELLON Facility:[facility] Start: 03-24-2023 End: 03-25-[address] DOCTOR CASTELLON Facility:[facility] Start: 03-10-2023 End: 03-10-2023 ambulatory JONO [facility] Start: 02-24-2023 End: 02-24-2023 Observation Sunshine DUARTE [facility] Start: 02-14-2023 End: 02-14-[address] ROBIN PONCE . Facility:[facility] Start: 10-05-2022 End: 10-05-[address] ZELALEM STACY Facility:[facility] Start: 09-23-2022 ambulatory SHAIKH Enio Farley y:[facility]1 Start: 02-18-2022 End: 02-18-2022 Patient encounter procedure MD Shaikh Hernandez Work Phone: [facility] [place] Start: 02-18-2022 End: 02-18-2022 ambulatory Esebrynn Tan Facility:[facility] Start: 03-21-2021 End: 03-22-2021 ambulatory REBEKA PARDO Facility:[facility] Start: 08-31-2020 End: 09-01-2020 Evaluation and management of inpatient EHRMELINDO ADKINS [facility] Start: 08-30-2020 End: 09-01-2020 Evaluation and management of inpatient Dank Diamond Nunes [facility] Comment on above: Injury of head, init ial encounter (Primary Dx) Procedures Date Procedure Procedure Detail Performing Clinician Start: 02-18-2022 MRI of abdomen with contrast MD Shaikh Diamond vang Work Phone: Start: 09-01-2020 DISCHARGE PATIENT HERMELINDO ADKINS Start: 09-01-2020 IP CONSULT TO HOME CARE NEEDS HERMELINDO Saravia Start: 09-01-2020 PT EVAL AND TREAT HERMELINDO ADKNIS Start: 09-01-2020 INITIATE OXYGEN THERAPY PROTOCOL HERMELINDO AHUMADA Start: 09-01-2020 Echo tthrc r-t 2d w/wom-mode compl spec&colr d HERMELINDO ADKINS Start: 09-01-2020 Echo tthrc r-t 2d w/wom-mode compl spec&colr d Moisés A Tyda Start: 09-01-2020 Assay of ethanol HERMELINDO ADKINS Start: 09-01-2020 Blood count complete auto&auto difrntl wbc HERMELINDO ADKINS Start: 09-01-2020 Comprehensive metabolic panel HERMELINDO Saravia Start: 09-01-2020 Gonadotropin chorionic qualitative HERMELINDO ADKINS Start: 09-01-2020 Hemoglobin glycosylated a1c HERMELINDO ADKINS Start: 09-01-2020 Lipid panel HERMELINDO ADKINS Start: 09-01-2020 Cell enumeration immune selectj & id fluid spec HERMELINDO LUCILLE Start: 09-01-2020 Assay of ethanol Hermelindo Lam Lucille Work Phone: Start: 09-01-2020 BASIC METABOLIC PANEL W/ REFLEX TO MG FOR LOW K Hermelindo Lam Adkins Work Phone: Start: 09-01-2020 Blood count complete auto&auto difrntl wbc Hermelindo Lam Adkins Work Phone: Start: 09-01-2020 Gonadotropin chorionic qualitative Hermelindo Adkins Work Phone: Start: 09-01-2020 Hemoglobin glycosylated a1c Hermelindo Lam Jazmyn saravia Work Phone: Start: 09-01-2020 Lipid panel Hermelindo Lam Lucille Work Phone: Start: 09-01-2020 TRAUMA PANEL Hermelindo Lam Adkins Work Phone: Start: 08-31-2020 CATHETER REMOVAL HERMELINDO ADKINS Start: 08-31-2020 ADVANCE DIET TOLERATED (NURSING COMMUNICATION) HERMELINDO ADKINS Start: 08-31-2020 DIET CARB CONTROL HERMELINDOWHITNEY ADKINS Start: 08-31-2020 OT EVAL AND TREAT HERMELINDOWHITNEY ADKINS Start: 08-31-2020 PLACE INTERMITTENT PNEUMATIC COMPRESSION DEVICE HERMELINDO ADKINS Start: 08-31-2020 TELEMETRY MONITORING HERMELINDO ADKINS Start: 08-31-2020 Mri brain brain stem w/o contrast material HERMELINDO ADKINS Start: 08-31-2020 Mri brain brain stem w/o contrast material Moisés A Tyda Start: 08-31-2020 Radex shoulder complete minimum 2 views HERMELINDO ADKINS Start: 08-31-2020 INITIATE OXYGEN THERAPY PROTOCOL HERMELINDO AHUMADA Start: 08-31-2020 Radex shoulder complete minimum 2 views Christina Curtis Work Phone: Start: 08-31-2020 HEIGHT AND WEIGHT HERMELINDO ADKINS Start: 08-31-2020 NURSING COMMUNICATION HERMELINDO ADKINS Start: 08-31-2020 FULL CODE HERMELIDNO ADKINS Start: 08-31-2020 INITIATE OXYGEN THERAPY PROTOCOL HERMELINDO AHUMADA Start: 08-31-2020 MISCELLANEOUS NURSING CARE ORDER (SPECIFY) HERMELINDO ADKINS Start: 08-31-2020 NIHSS HERMELINDO ADKINS Start: 08-31-2020 NOTIFY PHYSICIAN (SPECIFY) HERMELINDO ADKINS Start: 08-31-2020 NURSING SWALLOW ASSESSMENT HERMELINDOWHITNEY ADKINS Start: 08-31-2020 OT EVAL AND TREAT HERMELINDOWHITNEY ADKINS Start: 08-31-2020 PROVIDE PATIENT EDUCATION MATERIALS KEVIN ADKINS Start: 08-31-2020 PT EVAL AND TREAT HERMELINDOWHITNEY ADKINS Start: 08-31-2020 REASON FOR NO CHEMICAL VTE PROPHYLAXIS HERMELINDOWHITNEY ADKINS Start: 08-31-2020 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 EVAL AND TREAT HERMELINDOWHITNEY ADKINS Start: [...] Start: 08-31-2020 Ct thorax w/contrast material HERMELINDO Saravia Start: 08-31-2020 Ct cervical spine w/o contrast material HERMELINDOWHITNEY ADKINS Start: 08-31-2020 TYPE AND SCREEN HERMELINDOWHITNEY ADKINS Start: 08-31-2020 Cell enumeration immune selectj & id fluid spec HERMELINDOWHITNEY ADKINS Start: 08-30-2020 Antibody screen Dank Nunes Start: 08-30-2020 Ct angiography neck w/contrast/noncontrast Moisés A Tyda Start: 08-30-2020 CT LUMBAR SPINE TRAUMA RECONSTRUCTION Pati B Diop Work Phone: Start: 08-30-2020 CT THORACIC SPINE TRAUMA RECONSTRUCTION Pati B Diop Work Phone: Start: 08-30-2020 Ct thorax w/contrast material Pati B Ca lderon Work Phone: Start: 08-30-2020 Ct cervical spine w/o contrast material Pati B Diop Work Phone: Start: 08-30-2020 Blood typing serologic abo Dank lam Start: 08-30-2020 TRAUMA PANEL Dank Nunes Start: 10-27-2018 Esophagogastroduodenoscopy Dom NILL Start: 06-08-2015 Cystourethroscopy Dom BALBUENAL Start: 03-18-2014 Colonoscopy Dom MENDEZ Start: 11-17-2011 Angioplasty of blood vessel Dom BALBUENAL Abdominal hysterectomy Guidoob ir FELICIA Appendectomy Sunshine DUARTE Cardiac catheterization Jose MENDEZ Closed fracture of p atella (disorder) Sunshine GROSSMANICK Colonoscopy Sunshine GROSSMANICK Colonoscopy Dom MENDEZ Exploratory laparotomy Fredo ir FELICIA History of coronary artery bypass grafting H/O coronary artery bypass surgery MD Shaikh Hernandez Work Phone: Placement of stent i n coronary artery Dom BALBUENAL Tonsillectomy Dom BALBUENAL Vaginal hysterectomy Dom MENDEZ Plan of Treatment Date Care Activity Detail Author Start: 09-01-2021 Creatinine measurement Creatinine mo [place]itoring [place] Start: 09-01-2021 HbA1c (Bld) [Mass fraction] A1C test (Diabetic or Prediabetic) [place] Start: 09-01-2021 Lipid panel Lipid screen [place] Start: 09-01-2021 Potassium monitoring Potassium monit [place]ing [place] Start: 08-31-2020 Annual Wellness Visi t (AWV) Annual Wellness Visit (AWV) [place] Start: 07-18-2020 Influenza vaccination Flu vaccine (# 1) [place] Start: 2007 Screening for malign ant neoplasm of breast Breast cancer screen [place] Start: 2007 Screening for malign ant neoplasm of colon Colon cancer screen colonoscopy [place] Start: 2007 Shingles Vaccine (1 of 2) Shingles V accine (1 of 2) [place] Start: 1978 Screening for malign ant neoplasm of cervix Cervical cancer screen [place] Start: 1976 DTaP/Tdap/Td vaccine (1 - Tdap) DTaP/Tdap/Td vaccine (1 - Tdap) [place] Start: 1975 Diabetic microalbumi betzy test Diabetic microalbuminuria test [place] Start: 1972 HIV screening HIV screen [facility] [place], [place] Start: 1967 Diabetic foot examination Diabetic f oot exam [place] Start: 1967 Diabetic retinal exam Diabetic retin al exam [place] Start: 1957 Hepatitis C screening Hepatitis C sc reen [place] Oxygen therapy [[facility] [place] Data Set] Initiate Oxygen Therapy Protocol Respiratory Care Routine Daily until discontinued starting 08/31/2020 [place] Comment on above: Daily until disconti nued starting 08/31/2020 End: 08-31-2020 Speech and language therapy regime [place] Comment on above: One Time for 1 Occur rences starting 08/31/2020 until 08/31/2020 Immunizations Immunization Date Immunization Notes Care Provider Ronny pathak 12-30-2023 influenza virus vaccine, unspecified formulation Dom MENDEZ [facility] 08-17-2021 influenza virus vaccine, unspecified formulation Sunshine DUARTE [facility] 04-19-2021 SARS-CoV-2 (COVID-19 ) mRNA-1273 vaccine Dom MENDEZ [facility] 02-15-2021 SARS-CoV-2 (COVID-19 ) Ad26 vaccine, recombinant Sunshine DUARTE [facility] 02-15-2021 SARS-CoV-2 (COVID-19 ) mRNA BNT-162b2 vax Dom MENDEZ [facility] [place] 01-25-2021 SARS-CoV-2 (COVID-19 ) mRNA BNT-162b2 vax Dom MENDEZ [facility] [place] 01-15-2021 SARS-CoV-2 (COVID-19 ) Ad26 vaccine, recombinant Guidoanaliaadali DUARTE [facility] [place] 09-19-2017 pneumococcal conjuga te vaccine, 13 valent Arturo DOLAN [facility] Payers Date Payer Category Payer Self-pay [id number] 1957 Medicare [id number] [id number] [id number] 1959 Self-pay [id number] 1957 Unknown [id number] 2.16.8 [id number] 1957 Unknown [id number] 2.16.8 [id number] 1957 Unknown [id number] 2.16.84 [id number] 1957 Unknown [id number] 2.16.84 [id number] 1957 Unknown [id number] 2.16.84 [id number] 1957 Unknown [id number] 2.16.84 [id number] 1957 Unknown [id number] 2.16.84 [id number] 1957 Unknown [id number] 2.16.84 [id number] 1957 Unknown [id number] 2.16.84 [id number] 1957 Unknown [id number] 2.16.8 [id number] 1957 Unknown [id number] 2.16.8 [id number] 1957 Unknown [id number] 2.16.8 [id number] Unknown [id number] 2.16.8 [id number] Social History Date Type Detail Facility Tobacco smoking stat [facility] Unknown if ever smoked [place] Sex Assigned At [place] on file [place] Start: 03-19-2021 [facility] Start: 1955 Sex Assigned At Female [facility] Start: 02-24-2023 End: 05-13-2024 Tobacco smoking status Heavy tobacco smoker (finding) [facility] Comment on above: 1 pack a day Sex Assigned At Female [facility] Tobacco smoking status Never [facility] Comment on above: 1 pack a day Functional Status Date Assessment Result Facility 05-13-2024 Functional Status N/A [facility] [place] 12-30-2023 Functional Status N/A [facility] 07-13-2023 Functional Status N/A [facility] 02-24-2023 Functional Status No [facility] 02-24-2023 Functional Status [facility] Clinical Notes 02-24-2023 to 05-13-2024 Note Date & Type Note Facility 05-13-2024 Note General Surgery Offi ce/Clinic Note Chief Complaint consultation for rectal bleeding HPI Staff 68 year old female presents on consultation from Dr. Ponce for rectal bleeding. Presented to [place] ED 04/21 with complaint of 6 day history of rectal bleeding. HGB at that time was 13.7. No active signs of bleeding while at ED. CT abdomen/pelvis- unremarkable. Reports she continues to experience daily rectal bleeding. Verbalized this is not related to bowel movements. Reports blood is bright red. Reports intermittent internal rectal pain. Denies abdominal pain, nausea or vomiting. No unexplained weight loss. Last colonoscopy completed 03/2014- suboptimal prep, otherwise normal. No known family history of colon cancer. History of Present Illness 68 yo female with h/o CAD, htn, DMII, hyperlipidemia, CVA with right hemiparesis, COPD, arthritis, GERD, hypothyroidism, referred for rectal bleeding; patient seen in [facility] 04/21/24 for 6 day h/o rectal bleeding, normal H/H and abd/pelvic ct scan; patient reports daily rectal bleeding, even without bms, red blood, occasional clots, some pain up inside rectum, worse after bm; no external pain or hemorrhoid prolapse; normal formed bms, no straining, no h/o hard stools or straining, no diarrhea; has h/o hemorrhoids in past, no rectal surgery, but no symptoms like this in the past; patient on Plavix daily; last colonoscopy 2013 wnl, but poor prep and recommended surveillance colonoscopy in 3 years; abdominal operations significant for KAYE, appendectomy, exploratory laparotomy; smokes daily. Review of Systems PHQ Score Initial Depression Screen Score: 0 SCORE ROS - Provider Constitutional: no fever, no sweats, no weight loss. Eyes: no glasses, no blurred vision, no visual loss. ENMT: no dentures, no hoarseness, no swallowing difficulties, no hearing loss, no ear infection(s), no nose bleeds. Cardiovascular: normal blood pressure, no chest pain, regular heartbeat, no heart murmur. Respiratory: no shortness of breath, no cough, no asthma, no wheezing. Gastrointestinal: no nausea, no vomiting, no diarrhea, no constipation, no blood in stool, no change in bowel habits, no abdominal pain, no hepatitis. Genitourinary: no kidney stones, no urine infection, no dysuria. Musculoskeletal: no pain, no weakness. Skin: no changing moles, no rash, no skin lumps. Neurologic: no seizures, no epilepsy, no headache. Psychiatric: no emotional or psychiatric problem. Heme/Lymph: no bleeding problems, no anemia, no blood clots, no transfusions. Allergy/Immunologic: no swollen lymph nodes/glands, no IV drug abuse. Other: Additional ROS info: Except as noted in the above Review of Systems and in the History of Present Illness, all other systems have been reviewed and are negative or noncontributory. Physical Exam Vitals & Measurements HR: 64(Peripheral) RR: 16 BP: 117/75 HT: 65 in HT: 165 cm WT: 97.5 kg WT: 214.5 lb BMI: 35.81 HEENT: normal conjunctiva, sclera clear, no scleral icterus, EOM intact, PERRLA, oral mucosa moist without lesions. Neck: trachea midline, no mass, symmetric, no thyromegaly or nodules, no adenopathy Respiratory: lungs CTA, respirations non labored. Cardiovascular: regular rate and rhythm, no murmur, no pedal edema or varicosities. Gastrointestinal: soft, non distended, no tenderness, no masses, no palpable hernias, diastasis recti no, no hepatosplenomegaly; normal bs patient declines rectal exam at this time, just wants evaluation at time of colonoscopy Lymphatic: no cervical adenopathy, no supraclavicular adenopathy. Musculoskeletal: normal gait, digits and nails without infection, nodes, cyanosis, clubbing. Skin: no rashes, no lesions, no ulcers, no subcutaneous nodules, induration. Psychiatric/Neuro: oriented to time, place, person, judgement normal, affect appropriate for age, insight intact, no focal deficits. Tests: labs reviewed, x-rays reviewed, review of old records completed , Discussed surgical options, risks, and possible complications with patient. Assessment/Plan 1. Rectal bleeding (K62.5: Hemorrhage of anus and rectum) plan colonoscopy under anesthesia for further evaluation, informed consent obtained. 2. Rectal pain (K62.89: Other specified diseases of anus and rectum) see # 1 3. Antiplatelet or antithrombotic long-term use (Z79.02: housing relocation (current) use of antithrombotics/antiplatelets) hold Plavix 5 days prior to procedure, continue baby asa. 4. Tobacco use (Z72.0: Tobacco use) We strongly recommend to quit tobacco use. Cigarette smoking harms nearly every organ of the body, causes many diseases, and reduces the health of smokers in general. Quitting smoking lowers your risk for smoking-related diseases and can add years to your life. We encourage you to visit www.smokefree.gov access to helpful resources including free telephone support. If you decide on prescription treatment to help you quit, your family doctor would be happy to provide these. Follow-up No (more content not included)... [facility] Comment on above: Result Comment: Heidi laurentally Signed By: ANDREA PRADO, Dom Funes\Date and Time Signed: 05/13/24 11:47 EDT 01-14-2024 Note [facility] Cardiology Clinic Note Chief Complaint: [...] Iodinated contrast media, Aspirin, Atorvastatin, Cat/feline products, [place], Topiramate, Blue dye, Iodine, and Lisinopril Medications [...] 2010 hemishield graft (more content not included)... [facility] 12-30-2023 Hospital Discharge instructions Patient Education [...] With:Arturo DOLAN Address: [facility] [address] [place] [address]- Business (1) When:03/29/2024 11:56:00 Comments:With a stone metabolic workup [facility] 12-03-2023 Note RCRI=3 points Class IV Risk 15.0 % 30-day risk of , [place], or cardiac arrest PMH- CAD s/p Stent, [...] you Alexia Cline NP Division of Cardiology, [facility]- [phone] Pager- [phone] Email- [email or web address] 07-13-2023 Hospital Discharge instructions Patient [...] to strengthen the arm. General instructions Take [id number] and prescription medicines only as told by [...] provider. Document Revised: 07/19/2022 Document Reviewed: 07/19/2022 [employer] Patient Education 2022 [employer]. 07/13/2023 12:19:06 Muscle Strain Muscle Strain A [...] is not too tight. General instructions Take [id number] and prescription medicines only as told by [...] provider. Document Revised: 01/21/2022 Document Reviewed: 01/21/2022 [employer] Patient Education 2022 [employer]. Follow Up Care 07/13/2023 11:23:52 With:Robin Ponce Address: [address] [place] [id number] Business (1) When:07/16/2023 12:02:34 [facility] 07-13-2023 Evaluation + Plan note Extrac sherita from: Title:ED Note Author:Mathew Montana PA-C te:07/13/23 Shoulder pain (M25.519: Pain in unspecified shoulder) Ordered: acetaminophen-oxycodone, 1 tab(s), Oral, q6hr as needed for pain for 3 day(s), 15 tab(s), Refill(s) 0, [id number], 165, cm, 07/13/23 11:34:00 EDT, Height/Length Dosing, 95.5, kg, 07/13/23 11:34:00 EDT, Weight Dosing [facility]08-22-2023 NoteWill increase imdur to 60 mg and d/w pt that if migraines worsen she can reduce back to 30 mg [facility] Recommended [place] to [place] [facility] NoteCoronary artery disease is stable Continue GDMT- Coreg, simvastatin, imdur continue risk factor modifications- heart healthy diet, regular exercise as tolerated and continue all medications.[facility] 07-08-2023 NoteNYHC II- currently LVEF normal 60%- recovered Mild MR and TV regurg Normal rt sided pressure Continue current med regime. Coreg, irbesartan, simvastatin, [facility]ur[facility] 07-08-2023 NoteHypertension is well controlled, Continue all current medsUniversity [facility]08-22-2023 NoteUTP CARDIOLOGY PROGRESS NOTE HPI: [...] States pain in groin Cat/Feline Products Hives [place] Hives Topiramate Hives and Other Blue Dye [...] mononitrate ER (I (more content not included)... [facility]06-09-2023 NotePatient here for follow up Holter monitor and stress test. Also had labs a few weeks ago. Review of Systems Cardiovascular: Positive for chest pain, dyspnea on exertion and near-syncope (with bending over). Neurological: Positive for dizziness and light-headedness. All other systems reviewed and are negative.[facility] 04-25-2023 NoteCardiology Clinic Note Subjective Yeyo [...] States pain in groin Cat/Feline Products Hives [place] Hives Topiramate Hives and Other Blue Dye [...] mg sublingual tablet, Dis (more content not included)...[facility] 03-10-2023 NoteCardiology Clinic Note Subjective Yeyo [...] States pain in groin Cat/Feline Products Hives [place] Hives Topiramate Hives and Other Blue Dye [...] systolic function. No significant (more content not included)...[facility] 02-24-2023 Evaluation + Plan noteExtracted from: [...] PRN With When Contact Information Robin Ponce [address] [place], [place] [id number]- Business (1) Additional Instructions: Office is closed for lunch between Noon and 1 p.m. Please contact office for follow up appointment. Thank you! SHAIKH MARY Within 5 to [address] [place] [address] Business (1) Additional Instructions: Not a patient. Syncope, Gcjw-be-Rnbj Extracted from: Title:APSO Note Author:PERLA PRADO, Mbanefo [...] heart monitor. Check orthostatic vital signs. Ordered: [facility] Hospital Care/Day Moderate 35 Minutes 28392 2. RAMA (acute kidney injury) (N17.9: Acute kidney failure, unspecified) Acute kidney injury secondary to ATN from dehydration and antihypertensives. Resolved. Treated with IV fluid. Ordered: [facility] Hospital Care/Day Moderate 35 Minutes 58918 3. Hypokalemia (E87.6: Hypokalemia) Secondary to poor oral intake. Potassium level improving to 3.4. We will give patient additional potassium chloride. Ordered: potassium chloride, 40 mEq = 2 tab(s), Tab-ER, Oral, Once, Stop date 02/24/23 10:00:00 EDT, Routine, Start date 02/24/23 10:00:00 EDT, 02/24/23 9:46:00 EDT [facility] Hospital Care/Day Moderate 35 Minutes 43241 4. Diabetes mellitus (E11.9: Type 2 diabetes mellitus without complications) Continue sliding scale insulin. Ordered: [facility] Hospital Care/Day Moderate 35 Minutes 04465 5. High cholesterol (E78.00: Pure hypercholesterolemia, unspecified) On Lipitor at home. Ordered: [facility] Hospital Care/Day Moderate 35 Minutes 88722 6. Hypertension (I10: Essential (primary) hypertension) Blood pressure on the low side of normal. 7. CAD (coronary artery disease) (I25.10: Atherosclerotic heart disease of [place] coronary artery without angina pectoris) Continue on aspirin, Plavix. 8. Aortic aneurysm (I71.9: Aortic aneurysm of unspecified site, without rupture) Status post surgery. 9. Obese (E66.9: Obesity, unspecified) Recommend therapeutic lifestyle modification changes. 10. On deep vein thrombosis (DVT) prophylaxis (Z79.899: Other residential case manager (current) drug therapy) Heparin. Disposition: Home soon pending physical therapy evaluation. I discussed the diagnosis and plan of care with the patient at the bedside. Moderate level of MDM based on addressing above issues. This documentation was transcribed using voice recognition software. Several attempts were made to ensure accuracy. However inadvertent computerized extended insurance clerk errors may be present. Leann Gunter. Hospitalist. [...] deep vein thrombosis (DVT) prophylaxis (Z79.899: Other mcfp (current) drug therapy) SCD, heparin Orders: acetaminophen, [...] XR Spine Lumbosacral 2 or 3 Views [facility]04-10-2023 Hospital Discharge instructions Patient Education 02/24/2023 11:49:54 Syncope, Ppmh-eh-Vkde Syncope Syncope is when you pass out [...] right away. Call your local emergency services (371 in the [place] Do not drive yourself [...] pee (urine) pale yellow. General instructions Take tjiy-wcv-enjaffh and prescription medicines only as told by [...] right away. Call your local emergency services (351 in the [place] Do not drive yourself [...] 04/21/2009 Document Revised: 12/16/2018 Document Reviewed: 12/16/2018 [employer] Patient Education 2020 [employer]. Follow Up Care 02/24/2023 00:01:37 With:Robin Ponce Address: [facility] [place] [address]- Business (1) When: Unknown Comments:Office is closed for lunch between Noon and 1 p.m. Please contact office for follow up appointment.Thank you! With:SHAIKH MARY Address: [address] [place] [id number] Business (1) When:5 to 7 days Comments:Not a patient. [facility] assessment information available [facility] Work Phone: Hospital course Narrative No data available for this section [facility] No data available for this section [facility] General Surgery Vail Progress note No data available for this section [facility] Summary Purpose Family History No Family History Records FoundNo Family History Records FoundNo Family History Records FoundNo Family History Records Found No data available for this section No Family History Records Found No data available [...] Assisted Dressing Independent Toileting Assisted Feeding Independent [place]agliola Mechanic Independent Med Delivery whole Wound Care Documentation [...] Readmission: 9 Discharging to Facility/ Agency Name: [facility] FAX [address] [facility] [address] Address: Phone: Fax: Dialysis Facility (if applicable) Name: Address: Dialysis Schedule: Phone: Fax: Dairy Equipment Specialist/Gravel Hauler signature: EDT PHYSICIAN SECTION Prognosis: Good Condition at Discharge: Stable Rehab Potential (if transferring to Rehab): {Prognosis:[id number]} Recommended Labs or Other Treatments After Discharge: [...] called to the trauma nurse line at [phone] and please leave a message. Trauma is a life-threatening condition. Your doctor will want to closely monitor you. Be sure to goto all of your appointments. * Attachments The following attachments cannot be sent through Care Everywhere. * Fall Prevention ([place]) * Falls: Get Up Safely Instruction ([place]) * Vasovagal Syncope ([place]) documented in this encounter History of Present [...] 4 wheeled walker, Cane, Quad cane, Crutches, Roll Forming Machine Set Up Operator, Sock aid(pt reported no use of DME at baseline) ADL Assistance: Independent Homemaking Assistance: Independent Homemaking Responsibilities: Yes Meal Prep Responsibility: Primary Laundry Responsibility: Primary Cleaning Responsibility: Primary Ambulation Assistance: Independent Transfer Assistance: Independent Active Cut To Length Operator: Yes Mode of Transportation: Car 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 functional mobility. pt with no LOB [...] L LE. pt unable to identify when telegraphic typewriter operator chief was touching L UE (on elbow and [...] Plan Times per week: 3-5x/wk AM-PAC Score [facility] Inpatient Daily Activity Raw Score: 16 (09/01/201440) AM-PAC Inpatient ADL T-Scale Score : 35.96 (09/01/201440) ADL Inpatient CMS 0-100% Score: 53.32 (09/01/201440) ADL Inpatient [facility] G-Code Modifier : CK (09/01/201440) Goals Short [...] activity in order to increase coordination and litigator strength to L hand Short term goal 6: dem SBA during functional transfers/functional mobility with LRD, as needed Therapy Time Individual Concurrent Group Co-treatment Time In 1316 Time Out 1404 Minutes 48 Variance: 40 Debi Marques OTR/L * Taya Bergeron, 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 - 09/01/2020 11:39 AM EDT Speech Language Pathology Facility/Department: [address] ORTHO/MED SURG Initial Speech/Language/Cognitive Assessment NAME: [...] the bathtub. +LOC, on Plavix. Taken to [facility] where a stroke alert was initiated. CT head at 6pm today at [facility] did not show intracranial bleed. Transferred to [facility] for trauma and neurology work-up. Upon arrival, Pt without neurological deficit, GCS 15, c/o REYNA. Pt deemed hemodynamically stable and was sent to CT. Pain: Pain Assessment Pain Assessment: Faces Pain Level: 0 Assessment: Pt presents with mild-moderate cognitive deficits characterized by difficulty with immediate and short-term memory, verbal reasoning skills, and word associations. Pt. OMAHA, which may haveaffected results of evaluation. Multiple repetitions provided throughout evaluation. Pt. Presents with no dysarthria, no O/M deficits at this time. ST to follow up and provide treatment to address noted deficits. Education provided. Recommendations: Requires 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 Intervention: Yes Duration/Frequency of Treatment: [...] 1126 Minutes 12 Completed by: Debi Andrade Laundry Agent Clinician Cosigned By: Taya Bergeron M.A.CCC/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 09/01/2020 11:40 AM * Caleb Jefferson MD - 09/01/2020 10:26 AM EDT PROGRESS NOTE PATIENT NAME: Yeyo Avila DATE: 09/01/2020 SURGEON: Luiclle PRIMARY CARE PHYSICIAN: Robin Ponce MD HD: [...] MD 09/01/2020 4:00 PM * Nader Petit, HUMAN RESOURCES SUPERVISOR - 09/01/2020 10:02 AM EDT Physical Therapy Facility/Department: [address] ORTHO/MED SURG Daily Treatment Note NAME: [...] Safe use of RW Barriers to Learning: OMAHA REQUIRES PT FOLLOW UP: Yes Activity Tolerance [...] 44 Timed Code Treatment Minutes: 40 Minutes HUMAN RESOURCES SUPERVISOR returned to pt's room to have her attempt stair management, to return home safely Individual Individual Time In 1140 Time Out 1205 Minutes 25 Timed Code Treatment Minutes: 9 Minutes (a doctor interrupted PT, to assess the pt) Nader Petit, HUMAN RESOURCES SUPERVISOR * Debi Marques OT - 09/01/2020 [...] 08/31/2020 3:09 PM EDT Physical Therapy Facility/Department: [facility] ED Initial Assessment NAME: Yeyo Avila [...] Ambulation Assistance: Independent Transfer Assistance: Independent Active Cut To Length Operator: Yes Mode of Transportation: Car 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 DATE CREATED AUTHOR AUTHOR'S ORGANIZ ATION 07/04/2024 [facility] DATE CREATED AUTHOR AUTHOR'S ORGANIZ ATION [facility] Reason for Visit (unrecogniz ed section and content) Reason Comments Fall Trauma Status Reason Specialty Diagnoses / Procedures Referre d By Contact Referred To Contact Diagnoses Syncope and collapse Procedures Syncope and collapse Hermelindo Adkins MD [address] [address], [address] [place] [address] [facility] Care Teams (unrecognized sec tion and [...] BE BASED ON THE PRIMARY CLINICAL RECORDS. [facility]. provides no warranty or guarantee of the accuracy or completeness of information in this document.
[2025-02-05 08:51] LABS: Estimated Average Glucose 212 mg/dL
[2025-02-05 09:15] LABS: Basophils Absolute Auto 0.2 10^3/uL (0.0-0.1); Basophils Percent Auto 1.8 % (0.2-2.0); Eosinophils Absolute Auto 0.5 10^3/uL (0.0-0.7); Eosinophils Percent Auto 5.2 % (0.9-7.0); Hematocrit 44.1 % (36.0-48.0); Immature Granulocytes Abs Auto 0.02 10^3/uL (0.00-0.03); Immature Granulocytes Pct Auto 0.2 % (0.0-0.5); Lymphocytes Absolute Auto 2.6 10^3/uL (1.2-3.8); Lymphocytes Percent Auto 29.8 % (20.5-60.0); Mean Corpuscular Hemoglobin 30.9 pg (26.7-34.0); Mean Corpuscular Volume 90.7 fL (81.0-99.0); Mean Platelet Volume 11.2 fL (9.5-13.5); Monocytes Absolute Auto 0.6 10^3/uL (0.3-0.8); Monocytes Percent Auto 7.2 % (1.7-12.0); Neutrophils Absolute Auto 4.8 10^3/uL (1.4-6.5); Neutrophils Percent Auto 55.8 % (43.0-75.0); Platelet Count 292 10^3/uL (150-450); Red Blood Count 4.86 10^6/uL (4.20-5.40); Red Cell Distribution Width 12.8 % (11.0-15.0); White Blood Count 8.7 10^3/uL (4.0-11.0)
[2025-02-05 09:34] LABS: Alanine Aminotransferase 18 U/L (14-59); Albumin Globulin Ratio 1.1; Albumin Level 4.1 g/dL (3.4-5.0); Alkaline Phosphatase 94 U/L (46-116); Anion Gap 12.2; Aspartate Amino Transferase 13 U/L (15-37); BUN Creatinine Ratio 13.7; Bilirubin Total 0.8 mg/dL (0.2-1.0); Calcium 9.7 mg/dL (8.5-10.1); Carbon Dioxide 26.2 mmol/L (21.0-32.0); Chloride 103 mmol/L (98-107); Chol HDL Ratio 2.4; Cholesterol 109 mg/dL (<=200); Estimated GFR (African America >60 (>=60 mL/min/1.73m^2); Estimated GFR (Non-African Ame 54 (>=60 mL/min/1.73m^2); Free T3 2.66 pg/mL (2.18-3.98); Globulin 3.6 g/dL; Glucose 200 mg/dL (74-106); HDL Cholesterol 45 mg/dL (40-60); LDL Cholesterol Calculated 39.2 mg/dL; Potassium 4.4 mmol/L (3.5-5.1); Sodium 137 mmol/L (136-145); Thyroid Stimulating Hormone 1.774 uIU/mL (0.358-3.740); Total Protein 7.7 g/dL (6.4-8.2); Triglycerides 124 mg/dL (<=150); VLDL CHOLESTEROL 24.8 mg/dL
== END 2025-02-05 08:02 | disposition home or self-care (01) ==
LOC: LAB 08:04
PROVIDERS: PCP Family Medicine; Visit Provider Family Medicine
DX: R53.83 Other fatigue (principal); E11.9 Type 2 diabetes mellitus without complications; J44.9 Chronic obstructive pulmonary disease, unspecified; E66.3 Overweight; U07.1 COVID-19; E78.5 Hyperlipidemia, unspecified; Z12.12 Encounter for screening for malignant neoplasm of rectum; D64.9 Anemia, unspecified; E03.9 Hypothyroidism, unspecified; I11.0 Hypertensive heart disease with heart failure
CPT/HCPCS: 36415; 80053; 80061; 83036; 83540; 84436; 84443; 84481; 85025

== ENCOUNTER 2025-02-09 15:17 | Outpatient (REF) | payer OTHER, SELFPAY ==
[2025-02-09 15:32] LABS: Internal Control Within Normal Limits; Occult Blood Positive
== END 2025-02-09 15:18 | disposition home or self-care (01) ==
LOC: LAB 15:17
PROVIDERS: PCP Family Medicine; Visit Provider Family Medicine
DX: D64.9 Anemia, unspecified (principal); E11.9 Type 2 diabetes mellitus without complications; J44.9 Chronic obstructive pulmonary disease, unspecified; E66.3 Overweight; U07.1 COVID-19; E78.5 Hyperlipidemia, unspecified; Z12.12 Encounter for screening for malignant neoplasm of rectum; E03.9 Hypothyroidism, unspecified; R53.83 Other fatigue; I11.0 Hypertensive heart disease with heart failure
CPT/HCPCS: G0328

== ENCOUNTER 2025-02-14 13:21 | Outpatient (OUT) | payer OTHER, SELFPAY ==
--- NOTE | 2025-02-14 13:24 | CT_ITS ---
The [address] [address] Patient Name: MARTHA AVILA MRN: [id number] date: 1955 Sex: F Assigned Patient Location: CT Current Patient Location: CT Accession/Order Number: [id number] Exam Date: 02/14/2025 14:40 Report Date: 02/14/2025 14:44 At the request of: ROBIN PONCE MD Procedure: CT lung screening low-dose CT Chest lung screening without contrast TECHNIQUE: Axial imaging with 2-D reconstruction. The CT exam was performed using one or more the following dose reduction techniques: Automated exposure control, adjustment of the MA and/or Kv according to patient size, or use of the iterative reconstruction technique. History: Lung screening. Current smoker. COMPARISON: None THYROID: Unremarkable TRACHEA AND BRONCHI: Patent ESOPHAGUS: Unremarkable. HEART: Within normal limits PERICARDIAL EFFUSION: None CORONARY ARTERY CALCIFICATION: Present MEDIASTINUM: No adenopathy. No pneumoperitoneum. No mediastinal hematoma. PULMONARY IRMA: No hilar mass or adenopathy is seen. THORACIC AORTA atherosclerosis without aneurysm. LUNG NODULE None LUNGS: Lungs are clear PLEURAL EFFUSION: None PNEUMOTHORAX: No pneumothorax seen. CHEST WALL: No abnormality AXILLA:Unremarkable BONY STRUCTURES sternotomy. UPPER ABDOMEN: Images of the upper abdomen are noncontributory. CT/CT lung screening low-dose IMPRESSION: No visible lung nodule. FINAL ASSESSMENT: Negative. Lung-RADS Version 1.0 Assessment Category: 1 REMARKS: Continued annual screening with LDCT in 12 months is recommended. Impression dictated by: Yusef Ley M.D.02/14/2025 2:44 PM Dictation Location: [employer] Electronically authenticated by: [id number] Y Date: 02/14/2025 14:44
== END 2025-02-14 13:22 | disposition home or self-care (01) ==
LOC: CT 13:21
PROVIDERS: PCP Family Medicine; Visit Provider Family Medicine
DX: E11.9 Type 2 diabetes mellitus without complications (principal); F17.210 Nicotine dependence, cigarettes, uncomplicated
CPT/HCPCS: 71271

== ENCOUNTER 2025-03-04 08:23 | Outpatient (OUT) | payer OTHER, SELFPAY ==
--- NOTE | 2025-03-04 08:27 | CT_ITS ---
The [address] [address] Patient Name: MARTHA AVILA MRN: [id number] date: 1955 Sex: F Assigned Patient Location: CT Current Patient Location: CT Accession/Order Number: [id number] Exam Date: 03/04/2025 09:20 Report Date: 03/04/2025 09:32 At the request of: YANET BEEBE MD Procedure: CT angio chest CTA CHEST WITH CONTRAST CLINICAL HISTORY: Follow-up . History of thoracic aortic aneurysm and repair. COMPARISON: None 06/15/2020 TECHNIQUE: Spiral images were obtained through the chest following intravenous administration of 100 mL of opaque 350. Images were reviewed using both narrow and wide window settings. Sagittal, coronal and 3 D volume-rendered reconstructions were performed and reviewed. This CT exam was performed using one or more following dose reduction techniques: Automated exposure control, adjustment of the mA and/or kV according to patient size, or use of iterative reconstruction technique. FINDINGS: Median sternotomy wires are present. The heart is not enlarged. There is no pericardial effusion. There is coronary disease and suspected stents. No aortic aneurysm or dissection is currently seen. There is minor atherosclerotic plaque at the aortic arch. There is adequate opacification of the pulmonary arteries. No emboli are identified. No pathologic lymphadenopathy is seen. There are tiny endplate spurs and subtle dextroscoliotic curvature. There is minimal atelectasis or scarring. There is no consolidation, effusion, pneumothorax or discrete soft tissue nodules. Limited cuts through the upper abdomen show no contributory abnormality. CT/CT angio chest IMPRESSION: STABLE THORACIC AORTA, WITHOUT ANEURYSM OR DISSECTION. NO CT EVIDENCE OF PULMONARY EMBOLISM. NO ACUTE INTRATHORACIC FINDINGS. Impression dictated by: Dona Bernal M.D.03/04/2025 9:32 AM Dictation Location: [place] [address] Electronically authenticated by: [id number] Date: 03/04/2025 09:32
--- OUTSIDE RECORDS SUMMARY | 2025-03-04 08:27 | XMS_ITS | CCD ---
Author Organization [facility] Care Team Providers Care Facial Operator Name Role Phone Robin Ponce Primary Care Provider HERMELINDO ADKINS Consulting Unavailable ROBIN PONCE Primary Care Unavailable HERMELINDO ADKINS Attending Unavailable HERMELINDO ADKINS Admitting Unavailable LONDON VALLEJO Consulting Unavailable ELTAHAWY, EHAB A Attending Unavailable CONCEPCIÓN, EHAB A Admitting Unavailable ROBIN PONCE Referring Unavailable ROBIN PONCE Primary Care Unavailable MD Darby Hernandez Primary Care Provider [phone] MD Ese Tan Attending Provider SHAIKH HERNANDEZ Primary Care Physician DR DANK JOHNSON Admitting Unavailnatalee e KRIS .DR KELLY Primary Care Unavailable DR DANK JOHNSON Attending Unavailabl e GRECHNY .REYNA Consulting Unavailnatalee e SILVANA ALANYINKA Consulting Unavailable DR ROBIN SEGOVIA Primary Care Unavailable JEFFRY WILLIAMSON Admitting Unavailable SHELLEY II, TIMOTEO Consulting Unavailable TAMDONN ., JEFFRY Attending Unavailable TAMLYN ., JEFFRY Consulting Unavailable FILUTZE, LAURIE Consulting Unavailable FAWWAD, TRENT H Admitting Unavailable FAWWAD, TRENT H Attending Unavailable FAWWAConcepcion, TRENT H Primary Care Unavailable DR ROBIN SEGOVIA Admitting Unavailable HOKatie Bingham, DR KELLY Attending Unavailable HOY .DR KELLY Consulting Unavailable FAWWAConcepcion, TRENT H Primary Care Unavailable MISC, DR SONI Admitting Unavailable MISC, DR SONI Attending Unavailable MISC, DR SONI Consulting Unavailable DR ROBIN SEGOVIA Primary Care Unavailable KATELYN, DR MERCEDES Bates Consulting Unavailable MISC, DR SONI Attending Unavailable MISC, DR SONI Consulting Unavailable MISC, DR SONI Admitting Unavailable FAKARINA, TRENT H Primary Care Unavailable REGIS, DR ZELALEM Bates Admitting Unavailable FAKARINA, H Primary Care Unavailable REGIS, DR ZELALEM Bates Attending Unavailable REGIS, DR ZELALEM Bates Consulting Unavailable MIKAEL GUZMAN Consulting Unavailable Robin Ponce Primary Care Physician [phone] JONO LOPEZ Attending Unavailable ELTAREBEKA ANDRE Attending Unavailable MARLYNALEXIA Cooper Attending Unavailable JONO LOPEZ Attending Unavailable Ese Tan Admitting Unavailable LuEse saravia Attending Unavailable Fawwad, Trent Primary Care Unavailable NILL, Dom R Attending Unavailable DOLAN, Arturo Bates Attending Unavailable DOLAN, Arturo Bates Referring Unavailable DOLAN, Arturo Bates Attending Unavailable DOLAN, Arturo Bates Attending Unavailable DOLAN, Arturo Bates Attending Unavailable DOLAN, Arturo R Referring Unavailable DOLAN, Arturo R Admitting Unavailable NILL, Dom R Attending Unavailable Allergies Allergy Classification Reported Allergen(s) Allergy Type Date of Onset Reaction(s) Facility Angiotensin Converting Enzyme (RYANNE) Inhibitors (1 source) Lisinopril Drug Allergy [facility] Repository Anti-Epileptic Agents (1 source) topiramate Drug Allergy 011 [facility] Repository Berries (1 source) [place] Food Allergy [facility] Repository Cats (1 source) Cat Animal Allergy (Dander) [facility] Repository Dextroamphetamine (1 source) Dextroamphetamine Drug Allergy 011 [facility] Repository Iodine (and Iodine containting drugs) (1 source) Iodine (And Iodine Containting Drugs) Drug Allergy [facility] Repository Unclassified (2 sources) BLUE DYE; Translations: [BLUE DYE] Drug allergy (disorder) [facility] Repository (8 sources) Aspirin; Translations: [Aspirin] Drug Allergy 016 Nausea [facility] Comment on above: uncoded aspirin (8 sources) atorvastatin; Translations: [atorvastatin] Drug Allergy 014 Muscle pain (finding) [facility] (11 sources) Lisinopril; Translations: [Lisinopril] Drug Allergy Edema of pharynx (disorder) [facility] (3 sources) Morphine; Translations: [morphine] Drug Allergy [facility] (5 sources) strawberry allergenic extract; Translations: [[place]] Drug Allergy [facility] (8 sources) topiramate; Translations: [topiramate] Drug Allergy Urticaria (disorder), Nausea (finding) [facility] (2 sources) cat dander; Translations: [cat dander] Allergy to substance [facility] (3 sources) Iodinated Contrast Media; Translations: [IODINATED CONTRAST MEDIA] Allergy to substance [facility] (6 sources) Contrast media; Translations: [Contrast Dye] Drug allergy Urticaria (disorder) [facility] (6 sources) [place]; Translations: [Strawberries] Drug allergy Urticaria (disorder) [facility] (6 sources) SUMAtriptan; Translations: [sumatriptan] Drug Allergy Nausea (finding) [facility] (1 source) Acetaminophen / Aspirin / Caffeine Drug Allergy [facility] Repository (2 sources) Dextroamphetamine; Translations: [Lipitor] Drug Allergy [facility] Rep[facility] (2 sources) Iodine (And Iodine Containting Drugs) Drug allergy (disorder) [facility] Rep[facility] (1 source) Ketorolac Drug Allergy [facility] Rep[facility] (1 source) Plasmin Drug Allergy [facility] Rep[facility] (3 sources) topiramate; Translations: [Topamax] Drug Allergy [facility] Rep[facility] (2 sources) Dhe Drug allergy (disorder) [facility] Rep[facility] (2 sources) Cat/Feline Product Derivatives Drug allergy (disorder) [facility] Repository (1 source) Iodine; Translations: [IODINE] Drug Allergy [facility] Repository (1 source) CAT/FELINE PRODUCTS; Translations: [CAT/FELINE PRODUCTS] Propensity to adverse reactions to drug (disorder) 016 [facility] Repository Medications Current Medications Medication [...] by mouth every six hours as needed ketbvcgqbr-doimnmggykyco-xekgmyuu (DAISY CET, ESGIC) 50-325-40 MG per tablet [...] day(s), 15 tab(s), Refill(s) 0, [facility]/pharmacy #[id number], 165, cm, 07/13/23 11:34:00 EDT, Height/Length Dosing, 95.5, kg, 07/13/23 11:34:00 EDT, Weight Dosing Start Date: 07/13/23 Stop Date: 07/16/23 Status: Ordered allopurinol 300 mg oral tablet (1 source) Xanthine Oxidase Inhibitor Start: 02-21-2025 End: 02-16-2026 take 1 tablet by mouth once daily allopurinol 300 mg Tab 300 mg = 1 tab(s), Oral, Daily, X 90 day(s), # 90 tab(s), Refills(s) 3, Pharmacy: [facility]/pharmacy #[id number], 165, cm, 02/21/25 13:35:00 EDT, Height/Length Dosing, 95.4, kg, 02/21/25 13:35:00 EDT, Weight Dosing Start Date: 02/21/25 Stop Date: 02/16/26 Status: Ordered Quantity: 90.0 Unit: tab(s) Repeat number: 4 Indication: Calculus of kidney aspirin 81 mg delayed release oral tablet [...] mg, Oral, NIGHTLY, F irst dose on Eirnn 08/31/20 at 2100 12 hr buPROPion hydrochloride 150 mg extended release oral tablet (2 sources) Aminoketone Start: 05-05-2024 take 1 tablet by mouth once daily buPROPion 150 mg ER Tab 150 mg = 1 tab(s), Oral, Daily, Refills(s) 0 Start Date: 05/05/24 Status: Ordered Repeat number: 1 carvedilol 25 mg oral tablet (6 sources) alpha-Adrenergic Grabiel, beta-Adrenergic Grabiel Start: 05-05-2024 take 1 tablet by mouth twice daily carvedilol 25 mg Tab 25 mg = 1 tab(s), Oral, BID, Refills(s) 0 Start Date: 05/05/24 Status: Ordered Repeat number: 1 Start: 10-24-2018 take 25 mg by mouth [...] at 1400 clopidogrel 75 mg oral tablet (8 sources) P2Y12 Platelet Inhibitor Start: 07-06-2015 take 1 tablet by mouth once daily Plavix 75 mg Tab 75 mg = 1 tab(s), Oral, Daily, Refills(s) 0 Start Date: 07/06/15 Status: Ordered Repeat number: 1 diphenhydrAMINE hydrochloride 25 mg oral tablet (5 sources) Histamine-1 Receptor Antagonist Start: 05-05-2024 take 1 tablet by mouth once daily at bedtime as needed for sleep Benadryl 25 mg Tab = 1 tab(s), Oral, Once a day (at bedtime), PRN as needed for sleep, Refills(s) 0 Start Date: 05/05/24 Status: Ordered Repeat number: 1 Start: 08-31-2020 End: 08-31-2020 diphenhydrAMINE (BENADRYL) i [...] DAILY, First dose on Fri09/01/20 at 1345 doxycycline hyclate 100 mg oral capsule (1 source) Tetracycline-class Drug Start: 02-21-2025 take 1 capsule by mouth once daily doxycycline hyclate 100 mg Cap 100 mg = 1 cap(s), Oral, Daily, take one day before procedure and take one day after procedure, # 2 cap(s), Refills(s) 0, Pharmacy: [facility]/pharmacy #[id number], 165, cm, 02/21/25 13:35:00 EDT, Height/Length Dosing, 95.4, kg, 02/21/25 13:35:00 EDT, Weight Dosing Start Date: 02/21/25 Status: Ordered Quantity: 2.0 Unit: cap(s) Repeat number: 1 DULoxetine 60 mg delayed release oral capsule (3 sources) Serotonin and Norepinephrine Reuptake Inhibitor Start: 02-21-2025 duloxetine 60 mg oral delayed release capsule 60 mg = 1 cap(s), Refills(s) 0 Start Date: 02/21/25 Status: Ordered Repeat number: 1 Start: 09-01-2020 [facility] 60 mg, Oral, DAILY, First dose on Fri09/01/20 at 1345 Do not crush or break. May add contents of capsule to apple juice or apple sauce, but not chocolate. Start: 08-22-2020 take 1 capsule by [facility] once daily DULoxetine (CYMBALTA) 60 MG extended release capsule Take 1 capsule by mouth daily 0 08/22/2020 Active duloxetine 60 mg Cap-DR (2 sources) Start: 05-05-2024 take 1 capsule by mouth once daily duloxetine 60 mg Cap-DR = 1 cap(s), Oral, Daily, Refills(s) 0 Start Date: 05/05/24 Status: Ordered Repeat number: 1 Start: 05-05-2024 take 1 capsule by [facility] once daily duloxetine 60 mg Cap-DR = 1 cap(s), Oral, Daily, Refills(s) 0 Start Date: 05/05/24 Status: Ordered 0.4 ml enoxaparin sodium 100 mg/ml prefilled syringe (1 source) Low Molecular Weight Heparin Start: 08-31-2020 inject 40 mg by subcutaneous injection once daily 40 mg, Subcutaneous, DAILY, First dose on Fri08/31/20 at 0900 glimepiride 4 mg oral tablet (3 sources) Sulfonylurea Start: 05-05-2024 take 1 tablet by mouth once daily glimepiride 4 mg Tab 4 mg = 1 tab(s), Oral, Daily, Refills(s) 0 Start Date: 05/05/24 Status: Ordered Repeat number: 1 Start: 10-26-2018 take 2 mg by mouth [...] Oral, 4 TIMES DAILY PRN, Anxiety, Starting Fri09/01/20 at 1321 Start: 06-01-2020 take 1 capsule by mo [facility] four times daily as needed for anxiety hydrOXYzine (VISTARIL) 25 MG capsule Take 1 capsule by mouth 4 times daily as needed for Anxiety 0 06/01/2020 Active 3 ml insulin isophane, human 70 unt/ml / insulin, regular, human 30 unt/ml pen injector (4 sources) Insulin Start: 02-21-2025 NovoLIN 70/30 FlexPen subcutaneous suspension 2 unit(s), Refills(s) 0 Start Date: 02/21/25 Status: Ordered Repeat number: 1 Start: 11-12-2023 NovoLIN 70/30 FlexPen subcutaneous suspension per sliding scale, Refills(s) 0 Start Date: 11/12/23 Status: Ordered Repeat number: 1 Start: 11-12-2023 NovoLIN 70/30 FlexPen subcutaneous suspension Refills(s) 0 Start Date: 11/12/23 Status: Ordered iopamidol (ISOVUE-370) 76 % injection 70 mL (1 source) Start: 08-30-2020 iopamidol (ISOVUE-370) 76 % injection 70 mL irbesartan 150 mg oral tablet (3 sources) Angiotensin 2 Receptor Grabiel Start: 05-05-2024 take 1 tablet by mouth once daily irbesartan 150 mg Tab 150 mg = 1 tab(s), Oral, Daily, Refills(s) 0 Start Date: 05/05/24 Status: Ordered Repeat number: 1 Start: 08-14-2020 take 1 tablet by ray once daily irbesartan (AVAPRO) 150 MG tablet Take 1 tablet by mouth daily 0 08/14/2020 Active 24 hr isosorbide mononitrate 30 mg extended release oral tablet (3 sources) Nitrate Vasodilator Start: 05-05-2024 take 1 tablet by mouth twice daily isosorbide mononitrate 30 mg ER Tab 30 mg = 1 tab(s), Oral, BID, Refills(s) 0 Start Date: 05/05/24 Status: Ordered Repeat number: 1 Start: 11-12-2023 isosorbide mon onitrate 60 mg [...] 50 mg metoclopramide 10 mg oral tablet (2 sources) Dopamine-2 Receptor Antagonist Start: 05-05-2024 take 1 tablet by mouth three times daily Reglan 10 mg Tab 10 mg = 1 tab(s), Oral, TID, Refills(s) 0 Start Date: 05/05/24 Status: Ordered Repeat number: 1 nitroglycerin 0.4 mg sublingual tablet (3 sources) Nitrate Vasodilator Start: 11-12-2023 nitroglycerin 0.4 mg sublingual Tab 0.4 mg = 1 tab(s), SubLingual, q5min, Refills(s) 0 Start Date: 11/12/23 Status: Ordered Repeat number: 1 Start: 11-12-2023 nitroglycerin 0.4 mg sublingual Tab [...] pantoprazole 40 mg delayed release oral tablet (2 sources) Proton Pump Inhibitor Start: 05-05-2024 take 1 tablet by mouth once daily Pantoprazole [address] Tab 40 mg = 1 tab(s), Oral, Daily, Refills(s) 0 Start Date: 05/05/24 Status: Ordered Repeat number: 1 perflutren lipid microspheres (DEFINITY) injection 1.65 mg [...] administer the echo contrast. polyethylene glycol 3350 [id number] mg powder for oral solution (1 source) [...] 08/02/2020 Active simvastatin 40 mg oral tablet (6 sources) HMG-CoA Reductase Inhibitor Start: 05-05-2024 take 1 tablet by mouth once daily in the evening simvastatin 40 mg Tab 40 mg = 1 tab(s), Oral, qPM, Refills(s) 0 Start Date: 05/05/24 Status: Ordered Repeat number: 1 Start: 07-06-2015 take 1 tablet by ray once daily at bedtime simvastatin 40 mg [...] chloride bolus tiZANidine 4 mg oral tablet (5 sources) Central alpha-2 Adrenergic Agonist Start: 07-06-2015 take 1 tablet by mouth three times daily as needed for pain Zanaflex 4 mg Tab 4 mg = 1 tab(s), Oral, TID, PRN Muscle pain, Refills(s) 0 Start Date: 07/06/15 Status: Ordered Repeat number: 1 Start: 07-06-2015 take 1 tablet by ray th twice daily as needed for pain Zanaflex [...] unspecified] Onset: 02-24-2023 Episodic Acute cerebrovascular disease (2 sources) Cerebral infarction Onset: 06-30-2014 05-05-2024 Chronic Anal and rectal conditions (3 sources) Anorectal disorder; Translations: [Other specified diseases of anus and rectum] Onset: 05-13-2024 Episodic Anxiety disorders (3 sources) Anxiety disorder, unspecified; Translations: [Generalized anxiety disorder] Onset: 03-10-2023 Chronic Aortic; peripheral; and visceral artery aneurysms (3 sources) Aortic aneurysm; Translations: [Aortic aneurysm of unspecified site, without rupture] Onset: 08-19-2011 Chronic Asthma (5 sources) Asthma 12-05-2021 Chronic Calculus of urinary tract (6 sources) Kidney stone; Translations: [Calculus of ureter] Onset: 04-03-2023 12-05-2021 Episodic Cancer of bladder (8 sources) Malignant tumor of urinary bladder 07-06-2015 Chronic Cancer of bladder (1 source) Personal history of malignant neoplasm of bladder; Translations: [PERSONAL HX MALIG NEOPLASM BLADDER] Onset: 04-16-2023 Episodic Cancer; other and unspecified primary (3 sources) H/O: malignant neoplasm 11-12-2023 Episodic Cardiac dysrhythmias (2 sources) Bradycardia 05-05-2024 Episodic Chronic obstructive pulmonary disease and bronchiectasis (10 sources) Chronic obstructive lung disease; Translations: [Chronic obstructive pulmonary disease, unspecified] Onset: 02-14-2023 12-05-2021 Chronic Congestive heart failure; nonhypertensive (9 sources) Heart failure, unspecified; Translations: [Acute combined systolic (congestive) and diastolic (congestive) heart failure] Onset: 05-13-2012 Chronic Coronary atherosclerosis and other heart disease (14 sources) Coronary arteriosclerosis; Translations: [Atherosclerotic heart disease of [place] coronary artery without angina pectoris] Onset: 05-06-2012 03-20-2021 Chronic Coronary atherosclerosis and other heart disease (2 sources) Presence of coronary angioplasty implant and graft; Translations: [Coronary angioplasty status] Onset: 04-03-2023 Episodic Deficiency and other anemia (5 sources) Anemia 12-05-2021 Episodic Diabetes mellitus without complication (8 sources) Diabetes mellitus; Translations: [Type 2 diabetes mellitus without complications] Onset: 02-24-2023 03-20-2021 Chronic Diseases of white blood cells (1 source) Leukocytosis; Translations: [Elevated white blood cell count, unspecified] 03-20-2021 Chronic Disorders of lipid metabolism (15 sources) Hyperlipidemia; Translations: [Hyperlipidemia, unspecified] Onset: 02-24-2023 03-20-2021 Chronic Diverticulosis and diverticulitis (5 sources) Diverticular disease 01-28-2014 Chronic Esophageal disorders (5 sources) Gastro-esophageal reflux disease without esophagitis; Translations: [Gastroesophageal reflux disease] Onset: 03-10-2023 Chronic Essential hypertension (15 sources) Hypertensive disorder; Translations: [Essential (primary) hypertension] Onset: 02-24-2023 03-20-2021 Chronic External cause codes: Fall (2 sources) Fall; Translations: [Fall] Onset: 08-30-2020 08-30-2020 Fluid and electrolyte disorders (1 source) Hypokalemia; Translations: [Hypokalemia] Onset: 02-24-2023 Episodic Gastrointestinal hemorrhage (10 sources) Hemorrhage of anus and rectum; Translations: [Hemorrhage of rectum and anus] Onset: 04-03-2023 Episodic Genitourinary symptoms and ill-defined conditions (2 sources) Personal history of urinary (tract) infections; Translations: [Oliguria] Onset: 04-03-2023 02-21-2025 Episodic Headache; including migraine (8 sources) Hemiplegic migraine; 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] Onset: 08-30-2020 08-31-2020 Chronic Heart valve disorders (1 source) Presence of prosthetic heart valve; Translations: [PRESENCE OF PROSTHETIC HEART VALVE] Onset: 04-16-2023 Chronic Hypertension with complications and secondary hypertension (3 sources) Hypertensive urgency ; Translations: [Hypertensive heart disease with heart failure] Onset: 04-03-2023 08-31-2020 Chronic Mood disorders (2 sources) Depressive disorder 05-05-2024 Chronic Mood disorders (1 source) Mood disorders; Translations: [DEPRESSION UNSPECIFIED] Onset: 04-03-2023 Nausea and vomiting (1 source) Nausea and vomiting; Translations: [Nausea with vomiting, unspecified] 03-20-2021 Episodic Osteoarthritis (6 sources) Arthritis; Translations: [Unspecified osteoarthritis, unspecified site] Onset: 04-16-2023 12-05-2021 Chronic Other aftercare (2 sources) Long-term current use of drug therapy; Translations: [Other computer terminal operator (current) drug therapy] Onset: 02-24-2023 Episodic Other aftercare (1 source) [facility] (current) use of insulin; Translations: [[facility] CURRENT USE OF INSULIN] Onset: 04-16-2023 Episodic Other aftercare (1 source) Other [facility] (current) drug therapy; Translations: [OTH QUENCHING CAR OPERATOR CURRENT DRUG THERAPY] Onset: 04-16-2023 Episodic Other and ill-defined heart disease (5 sources) Heart disease 12-05-2021 Chronic Other and ill-defined heart disease (2 sources) Left ventricular hypertrophy 05-05-2024 Chronic Other circulatory [...] Onset: 01-14-2024 Episodic Other connective tissue disease (5 sources) Fibromyositis 01-28-2014 Episodic Other connective tissue disease (1 source) Fibromyalgia; Translations: [FIBROMYALGIA] Onset: 04-16-2023 Episodic Other diseases of kidney and ureters (1 source) Other specified disorders of kidney and ureter; Translations: [Other specified disorders of kidney and ureter] Onset: 02-18-2022 Chronic Other diseases of kidney and ureters (3 sources) Cyst of kidney 11-12-2023 Episodic Other [...] Chronic Other nutritional; endocrine; and metabolic disorders (2 sources) Body mass index 30+ - obesity 05-13-2024 Chronic Other nutritional; endocrine; and metabolic disorders (2 sources) Obese class III 05-05-2024 Chronic Paralysis (2 sources) Right hemiparesis 05-05-2024 Chronic Residual codes; unclassified [...] of mental health and substance abuse codes (2 sources) Tobacco use and exposure - finding 05-13-2024 Chronic Spondylosis; intervertebral disc disorders; other back problems (2 sources) Lumbosacral radiculopathy 05-05-2024 Episodic Substance-related disorders (6 sources) Smoker; Translations: [Nicotine dependence, cigarettes, uncomplicated] Onset: 04-16-2023 02-24-2023 Chronic Comment on above: Added secondary to d ocumentation in Social History. Thyroid disorders (2 sources) Hypothyroidism 05-05-2024 Chronic Transient cerebral ischemia (2 sources) Transient cerebral ischemia Onset: 05-06-2012 05-05-2024 Chronic Unclassified (1 source) PERSONAL HISTORY OF COVID-19; Translations: [PERSONAL HISTORY OF COVID-19] Onset: 04-03-2023 Unclassified (1 source) CONTACT W/AND (SUSP) EXPOS COVID-19; Translations: [CONTACT W/AND (SUSP) EXPOS COVID-19] Onset: 02-21-2023 Unclassified (2 sources) Patient encounter status 05-13-2024 Past or Other [...] 03-10-2023 03-20-2021 Episodic Other aftercare (1 source) computer terminal operator (current) use of antithrombotics/anti platelets; Translations: [QUENCHING CAR OPERATOR ANTITHROMBOT/ANTIPLA TLETS] Onset: 2022 Episodic Other aftercare (1 source) computer terminal operator (current) use of aspirin; Translations: [QUENCHING CAR OPERATOR CURRENT USE OF ASPIRIN] Onset: 2022 Episodic Other aftercare (1 source) [facility] (current) use of oral hypoglycemic drugs; Translations: [[facility] USE ORAL HYPOGLYCEMIC DX] Onset: 2022 Episodic [...] [Near syncope] Onset: 08-31-2020 08-31-2020 Episodic Unclassified (5 sources) Cystoscopy and transurethral resection of bladder tumor 09-07-2010 Results Test Name Value Interpretation Reference Range Facility Main OR Intraoperative Recor don 02-22-2025 Main OR Intraoperative Record Main OR Intraoperative Record IntraOp Document Type FTURO Summary Primary Physician: Arturo DOLAN MD Finalized Date/Time: 02/22/25 14:57:05 Pt. Name: MARGARITAYEYO/Sex: 1955 Female Med Rec #: [id number] Physician: Arturo DOLAN MD Financial #: [id number] Pt. Type: O Room/Bed: / Admit/Disch: 02/22/25 13:01:25 - Institution: Case Times FTURO Entry 1 Patient Times In Room 02/22/25 14:41:00 Out Room 02/22/25 14:56:00 Procedure Times Start 02/22/25 14:50:00 Stop 02/22/25 14:53:00 Anesthesia Times Last Modified By: Eusebia Nathan 02/22/25 14:57:00 Case Attendance FTURO Entry 1 Entry 2 Entry 3 Case Attendee Arturo DOLAN MD, Kelsie E McClain TOLL LINEMAN, Ashlee Estrada Role Performed Surgeon - Primary Silver Chaser - Primary Scrub - Primary Time In 02/22/25 14:49:00 02/22/25 14:41:00 02/22/25 14:41:00 Time Out 02/22/25 14:56:00 02/22/25 14:56:00 02/22/25 14:56:00 Procedure CYSTOSCOPY LOCAL WITH CYSTOSCOPY LOCAL WITH CYSTOSCOPY LOCAL WITH URETHRAL DILATION(.) URETHRAL DILATION(.) URETHRAL DILATION(.) Comments Last Modified By: Eusebia Nathan Kelsie E Burgderfer, Kelsie E 02/22/25 14:57:01 02/22/25 14:57:01 02/22/25 14:57:01 Surgical Procedures FTURO Entry 1 Procedure Description Procedure CYSTOSCOPY LOCAL WITH Modifiers . URETHRAL DILATION Surgeon Description CYSTOSCOPY LOCAL WITH URETHRAL DILATION Primary Procedure Yes Primary Surgeon Arturo DOLAN MD Start 02/22/25 14:50:00 Stop 02/22/25 14:53:00 Anesthesia Type Local Surgical Service Urology Wound Class 2 - Clean-Contaminated Last Modified By: Eusebia Nathan 02/22/25 14:53:24 General Case Data FTURO Pre-Care Text: Classifies surgical wound, implements aseptic technique, initiates traffic control Entry 1 Case Information OR URO 1 FT Case Level None Wound Class 2 - Clean-Contaminated Specialty Urology Preop Diagnosis LOW URINE OUTPUT, Postop Same As Preop Yes HISTORY OF BLADDER CANCER Postop Diagnosis LOW URINE OUTPUT, Outcomes Met? Yes HISTORY OF BLADDER CANCER Last Modified By: Eusebia Nathan 02/22/25 14:40:25 Post-Care Text: The patient is free from signs and symptoms of infection EU IntraOp - FTURO Pre-Care Text: Implements protective measures prior to operative or invasive procedure, confirms identity before the operative or invasive procedure, verifies operative procedure, surgical site, and laterality Entry 1 EU Perioperative Protocols Procedure(s) CYSTOSCOPY LOCAL WITH Patient Identity Birthday, ID Band URETHRAL DILATION(.) Verified (select at Check, Patient least 2): Participation Consents / H and P H&P, Surgery/Procedure Operative Site N/A Verified Consent Marking Verified Surgical Site Yes Laterality Verified n/a Verified Procedure Verified Yes Correct Patient Yes Position Verified Availability Equipment, Medication Time Out Arturo DOLAN MD, Verified (If Participants Eusebia Nathan, Applicable) Ashlee Zurita CST Time Out Complete 02/22/25 14:49:00 Allergies Reviewed? Yes Allergies Reviewed Self/Patient With Body Position Frog Legged Prep Area DARRYL AREA Prep Agents Betadine Solution Skin. Condition Unable to Visualize Description N/A Additional None Specimens Comment N/A Specimens Collected Vitals - EU Blood Pressure 127/79 Pulse 87 bpm Respirations 18 br/min SPO2 97 % EBL 0 I&O - EU Total Intake 0 mL Total Output 0 mL Outcomes Met? Yes Last Modified By: Eusebia Nathan 02/22/25 14:49:38 Post-Care Text: The patient is free from signs and symptoms of injury caused by extraneous objects Sign Out FTURO Entry 1 Before Patient Leaves OR Nurse verbally Yes Nurse verbally n/a confirms with the confirms with the team the name of team that the procedure(s) instrument, sponge, recorded and needle counts are correct (or N/A) Nurse verbally n/a Nurse verbally Yes confirms with the confirms with the team how the team whether there specimen is labeled are any equipment (including patient problems to be name), if applicable addressed Sign Out Complete 02/22/25 14:53:00 Last Modified By: Eusebia Nathan 02/22/25 14:53:20 Case Comments Finalized By: Eusebia Nathan Document Signatures Signed By: Eusebia Nathan 02/22/25 14:57 Normal [facility] Main OR Preoperative Recordo n 02-22-2025 Main OR Preoperative Record Main OR Preoperative Record Holding Area Document Type FTURO Summary Primary Physician: Arturo DOLAN MD Finalized Date/Time: 02/22/25 14:39:57 Pt. Name: YEYO AVILA/Sex: 1955 Female Med Rec #: [id number] Physician: Arturo DOLAN MD Financial #: [id number] Pt. Type: O Room/Bed: / Admit/Disch: 02/22/25 13:01:25 - Institution: Case Times Holding FTURO Pre-Care Text: Verifies consent for planned procedure, identifies individual values and wishes concerning care, includes family members in perioperative teaching Secures patient's records' belongings, and valuables, maintains patient's dignity and privacy, and maintains patient confidentiality Entry 1 In Holding 02/22/25 14:17:00 Outcomes Met? Yes Last Modified By: Laurie Venegas LPN 02/22/25 14:18:00 Post-Care Text: The patient participates in decisions affecting his or her perioperative plan of care The patient's right to privacy is maintained Surgery Checklist FTURO Entry 1 Patient Birthday, ID Band Procedure History and Physical, Identification: Check, Patient Verification: Surgical Consent, With Participation Patient NPO after Midnight: n/a Personal Items: Glasses Limitations: up ad trino Complaints of Pain: No Skin Integrity Intact, [place], Warm, & Dry Vitals - EU Blood Pressure 127/79 Pulse 87 bpm Respirations 18 br/min SPO2 97 % Additional None RN Reviewed Yes Specimens Collected Last Modified By: Eusebia Nahtan 02/22/25 14:39:56 Finalized By: Eusebia Nathan Document Signatures Signed By: Laurie Venegas LPN 02/22/25 14:18 Eusebia Nathan 02/22/25 14:39 Unfinalized History Date/Time Username Reason for Unfinalizing Freetext Reason for Unfinalizing 02/22/25 14:39 [id number] Adding Additional Data Normal [facility] Operative Reporton Operative Report Operative Report Patient: YEYO AVILA Age: 69 years Sex: Female : 1955 Associated Diagnoses: None Author: Arturo DOLAN MD Procedure Operative Information Details: Date/ Time: 02/22/2025 14:56:00. Pre-Op Dx: Hx of Bladder CA - Z85.51, Frequency - R35.0, Incomplete Bladder Emptying - R39.14, Urethral Stricture - Other (Unspecified - N35.9, Post Infective Female - N35.12). Post-Op Dx: Same. Anesthesia Type: Local. Procedure: Local Cystoscopy with Urethral Dilation. Complications: None. Risks/Benefits/Informed Consent: Surgical risks, benefits, details of the procedure have been explained to the patient, Full informed consent has been obtained. Intraoperative Information Prepped: Patient is brought back to the endoscopy suite, Patient is placed in modified dorso/lithotomy position, Patient prepped in the usual fashion with Betadine solution, 2% Xylocaine Jelly is placed per Urethra, After waiting several minutes the Cystoscope is introduced. The Urethra is: Dry. The Bladder is: No bladder tumors. No SANTOS. No prolapse. Mild atrophic vaginitis. The ureteral orifices: Show efflux of clear urine. The Urethra was dilated to: 30 [place] w/ sounds. Devices Implanted: None. Removal: Cystoscope is removed, The patient tolerated it well. Postoperative Information Discharge: Patient is discharged home with antibiotic coverage, Follow up arranged. We discussed considering initiating estrogen cream. For now we will wait half a year and reevaluate.. Normal [facility] Comment on above: Result Comment: Elec tronically Signed By: Arturo DOLAN MD\.br\Date and Time Signed: 02/22/25 14:58 EDT Ambulatory Visit Summaryon 0 02-21-2025 Ambulatory Visit Summary Ambulatory Visit Summary YEYO AVILA :1955 Visit Date:02/21/2025 Ambulatory Visit Instructions Your Diagnosis Kidney stones Low urine output History of bladder cancer Renal cyst, left Your Care Team Attending Physician - Arturo DOLAN MD Primary Care Physician - Robin Ponce MD This Is Your Medications List allopurinol (allopurinol 300 mg Tab) doxycycline (doxycycline hyclate 100 mg Cap) Contact prescribing physician if questions or concerns buPROPion (buPROPion 150 mg ER Tab) carvedilol (carvedilol 25 mg Tab) clopidogrel (Plavix 75 mg Tab) diphenhydrAMINE (Benadryl 25 mg Tab) duloxetine (duloxetine 60 mg Cap-DR) duloxetine (duloxetine 60 mg oral delayed release capsule) glimepiride (glimepiride 4 mg Tab) insulin isophane-insulin regular (NovoLIN 70/30 FlexPen subcutaneous suspension) insulin isophane-insulin regular (NovoLIN 70/30 FlexPen subcutaneous suspension) irbesartan (irbesartan 150 mg Tab) isosorbide mononitrate (isosorbide mononitrate 30 mg ER Tab) metoclopramide (Reglan 10 mg Tab) nitroglycerin (nitroglycerin 0.4 mg sublingual Tab) pantoprazole (Pantoprazole [address] Tab) simvastatin (simvastatin 40 mg Tab) tizanidine (Zanaflex 4 mg Tab) Procedures Performed Colonoscopy (06/23/2024), Removal of ureteral stent (12/30/2023), Cystoscopic laser lithotripsy of ureteric calculus (12/18/2023), Cystoscopic ureteroneocystostomy with insertion of ureteral stent (11/13/2023), EGD - esophagogastroduodenoscopy (10/27/2018), Cystourethroscopy (separate procedure) (06/08/2015), Colonoscopy (03/18/2014), Angioplasty (2011), Appendectomy, Cardiac catheterization, Closed fracture of patella, Colonoscopy, Exploratory laparotomy, Insertion of coronary artery stent, Tonsillectomy, Vaginal hysterectomy. Discharge Vitals Temperature (Temporal Artery) 37 ???C Heart Rate (Peripheral) 80 Respiratory Rate 16 Blood Pressure 139/82 Height 165 cm Height 65 in Weight 95.4 kg Weight 210.321 lb BMI 35.04 What to do next You Need to Schedule the Following Appointments Follow Up with MAGDALENO PRADO, ALONSO Mcgill When: Where: [facility] [address] , [place] [address]- [phone] Medications What How Much When Why Instructions New allopurinol (allopurinol 300 mg Tab) 1 Tablets By Mouth Every day Kidney stones Duration: 90 Days Refills: 3 Pickup at [facility]/pharmacy #[id number] New doxycycline (doxycycline hyclate 100 mg Cap) 1 Capsules By Mouth Every day take one day before procedure and take one day after procedure Pickup at [facility]/pharmacy #[id number] Unchanged buPROPion (buPROPion 150 mg ER Tab) [...] or concerns Unchanged duloxetine (duloxetine 60 mg oral delayed release capsule) 1 Capsules Contact prescribing physician if questions or concerns Unchanged glimepiride (glimepiride 4 mg Tab) 1 Tablets By Mouth Every day Contact prescribing physician if questions or concerns Unchanged insulin isophane-insulin regular (NovoLIN 70/ 30 FlexPen subcutaneous suspension) per sliding scale Contact prescribing physician if questions or concerns Unchanged insulin isophane-insulin regular (NovoLIN 70/ 30 FlexPen subcutaneous suspension) 2 Units Contact prescribing physician if questions or concerns [...] Contact prescribing physician if questions or concerns Pharmacy Information (more content not included)... Normal [facility] Ambulatory Visit Summary Ambulatory Visit Summary YEYO AVILA :1955 Visit Date:02/21/2025 Ambulatory Visit Instructions Your Diagnosis Kidney stones Low urine output History of bladder cancer Renal cyst, left Your Care Team Attending Physician - Arturo DOLAN MD Primary Care Physician - Robin Ponce MD This Is Your Medications List Contact prescribing physician if questions or concerns buPROPion (buPROPion 150 mg ER Tab) carvedilol (carvedilol 25 mg Tab) clopidogrel (Plavix 75 mg Tab) diphenhydrAMINE (Benadryl 25 mg Tab) duloxetine (duloxetine 60 mg Cap-DR) duloxetine (duloxetine 60 mg oral delayed release capsule) glimepiride (glimepiride 4 mg Tab) insulin isophane-insulin regular (NovoLIN 70/30 FlexPen subcutaneous suspension) insulin isophane-insulin regular (NovoLIN 70/30 FlexPen subcutaneous suspension) irbesartan (irbesartan 150 mg Tab) isosorbide mononitrate (isosorbide mononitrate 30 mg ER Tab) metoclopramide (Reglan 10 mg Tab) nitroglycerin (nitroglycerin 0.4 mg sublingual Tab) pantoprazole (Pantoprazole [address] Tab) simvastatin (simvastatin 40 mg Tab) tizanidine (Zanaflex 4 mg Tab) Procedures Performed Colonoscopy (06/23/2024), Removal of ureteral stent (12/30/2023), Cystoscopic laser lithotripsy of ureteric calculus (12/18/2023), Cystoscopic ureteroneocystostomy with insertion of ureteral stent (11/13/2023), EGD - esophagogastroduodenoscopy (10/27/2018), Cystourethroscopy (separate procedure) (06/08/2015), Colonoscopy (03/18/2014), Angioplasty (2011), Appendectomy, Cardiac catheterization, Closed fracture of patella, Colonoscopy, Exploratory laparotomy, Insertion of coronary artery stent, Tonsillectomy, Vaginal hysterectomy. Discharge Vitals Temperature (Temporal Artery) 37 ???C Heart Rate (Peripheral) 80 Respiratory Rate 16 Blood Pressure 139/82 Height 165 cm Height 65 in Weight 95.4 kg Weight 210.321 lb BMI 35.04 What to do next You Need to Schedule the Following Appointments Follow Up with MAGDALENO PRADO, ALONSO Mcgill When: Where: [facility] [address], [place] [address] [phone] Medications What How Much When Instructions Unchanged [...] or concerns Unchanged duloxetine (duloxetine 60 mg oral delayed release capsule) 1 Capsules Contact prescribing physician if questions or concerns Unchanged glimepiride (glimepiride 4 mg Tab) 1 Tablets By Mouth Every day Contact prescribing physician if questions or concerns Unchanged insulin isophane-insulin regular (NovoLIN 70/ 30 FlexPen subcutaneous suspension) per sliding scale Contact prescribing physician if questions or concerns Unchanged insulin isophane-insulin regular (NovoLIN 70/ 30 FlexPen subcutaneous suspension) 2 Units Contact prescribing physician if questions or concerns [...] treatment for. Anemia Aneurysm of thoracic aorta Antiplatelet or antithrombotic long-term use Arthritis Asthma BMI 35.0-35.9,adult Bradycardia BRBPR (bright red blood per rectum) Cerebral (more content not included)... Normal [facility] Urology Office/Clinic Noteon 02-21-2025 Urology Office/Clinic Note Urology Office/Clinic Note Chief Complaint low urinary output HPI Staff Pt here for minimal urinary output. States that she will get the urge to void and then very small amounts come out. She states that this does not happen with every void, it is on and off. Pt denies any visible blood in urine and states no abdominal/flank pain. Last seen IO 11/12/23 for kidney stones, hx of bladder ca, left renal cyst. S/p Cysto, L stent placement 11/13/23. S/p Cysto, L stent exchange, L URS, L pyeloscopy, laser litho, basket extraction 12/18/23. S/p Cysto, L stent removal 12/30/23. Stone analysis 12/18/24 - 90% uric acid, 10% CaOx Ellis. Metabolic workup completed 01/01/[address] [facility] AP wo con 04/21/24 [facility] - neg for stones. No updated imaging on [facility]. History of Present Illness Tests reviewed: reviewed UA, operative notes, stone analysis, metabolic workup I have reviewed the previous health record information and history for this patient from Dr. Dolan. I have reviewed and verified the staff HPI to be accurate for this encounter. Review of Systems PHQ Score Initial [...] See HPI. Physical Exam Vitals & Measurements T: 37 ???C(Temporal Artery) HR: 80(Peripheral) RR: 16 BP: 139/82 HT: 165 cm HT: 65 in WT: 95.4 kg WT: 210.321 lb BMI: 35.04 General Appearance: alert , no acute distress, well nourished, well developed female. Assessment/Plan 1. Kidney stones (N20.0: Calculus of kidney) [...] ureteral calculus or stone on the R. S/p Cysto, L stent placement 11/13/23. S/p Cysto, L stent changed, L URS, L pyeloscopy, laser litho of L renal calculi, stone fragment basket extraction 12/18/23. Stone analysis - 90% uric acid, 10% CaOx mono. S/p Cysto, L stent removal 12/30/23. CT AP wo con 04/21/24 [facility] - No stones noted. Metabolic workup 01/01/24 - Total volume 1700mL. U24 Uric acid 764.8 H, U24 Phos 1129 H. Serum labs wnl. Reviewed imaging and lab results. Advised pt she has high uric acid excretion. Recommended medical management. R/B's discussed. -Start Allopurinol 300mg qd. Rx sent. 2. Low urine output (R34: Anuria and oliguria) Shares she experiences UUI at times. Wears depends daily. Occasionally gets severe urge to void but will have minimal output. Does not feel she empties. Denies flank pain or visible blood in her urine. Discussed sxs may be related to kidney stone vs bladder cancer recurrence vs urethral stricture. Recommended cystoscopy to further evaluate. Pt willing to proceed. -Will schedule Cysto with possible UD. The procedure risks, benefits, details, and treatment alternatives have been discussed with the patient. These include bleeding, infection, recurrent scar in over 50%, need for repeat dilation or other procedures, no symptom relief with dilation, among others. Full informed consent has been obtained. Will order Local anesthesia. 3. History of bladder cancer (Z85.51: Personal history of malignant neoplasm of bladder) Last surveillance cysto by Dr. Tan 02/04/22 - Punctate uric acid crystals around bladder neck. 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 Based on NCCN guidelines for hx low risk bladder cancer, no further surveillance cystoscopy is recommended at this time. S/p Cysto, L stent removal 12/30/23 - No tumors or stones. -Cysto per #2 4. Renal cyst, left (N28.1: Cyst of kidney, acquired) MRI Ab 02/18/22 - Nonenhancing renal cyst LSP. No renal mass. Follow-up With When Contact Information MAGDALENO PRADO, Arturo Bates, URL [facility] [address] , [place] [address]- [phone] Additional Instructions: sched cysto/poss UD Patient Education Urethral Dilation Steps to Quit Smoking IKarina, personally scribed for Dr. Dolan on 02/21/2025 14:04:22. . Documentation recorded by the scribe, Karina Vaca, accurately reflects the services(s) I performed and decisions made by me. Authenticated by Dr. Dolan on 02/21/2025 14:06:23. Problem List/Past Medical History Ongoing Anemia Aneurysm of thoracic aorta Antiplatelet or antithrombotic long-term use Arthritis Asthma BMI 35.0-35.9,adult Bradycardia BRBPR (bright red blood per rect (more content not included)... Normal [facility] Comment on above: Result Comment: Elec tronically Signed By: Arturo DOLAN MD\.br\Date and Time Signed: 02/21/25 14:06 EDT\.br\Electronically Co-Signed By: Karina Vaca\.br\Date and Time Co-Signed: 02/21/25 14:04 EDT Reminderson 06-24-2024 Reminders Reminders From: Lore Carlisle LPN To: [facility] - Clinical; Sent: 06/24/2024 14:45:34 EDT Show up: 05/23/2034 07:00:00 EDT Subject: colonoscopy recall Due Date/Time: 06/23/2034 07:00:00 EDT Reminder/Recall Patient due for screening colonoscopy 06/23/2034. Normal [facility] Ambulatory Visit Summaryon 0 05-13-2024 Ambulatory Visit Summary Ambulatory Visit Summary YEYO AVILA :1955 Visit Date:05/13/2024 Ambulatory Visit Instructions Your Care Team Attending Physician - ANDREA PRADO, Dom Bates Primary Care Physician - Robin Ponce [...] survey via text (more content not included)... [facility] ED Note-Physicianon 05-06-20 ED Note-Physician [id number]#[id number] [facility] RAD - CT Reporton 05-06-2024 RAD - CT Report [id number]#1.00TIFF [facility] Physician Referralon 024 Physician Referral [id number]#1.00TIFF [facility] 36on 02-05-2024 36 PT DAUGHTER STATES S HE IS ON VACATION, SHE FELICIA;L CALL THE OFFICE NEXT WEEK Normal [facility] 36on 01-28-2024 36 I have been tying to call pt for about a week, no vm 01/27 Normal [facility] Telephoneon 01-15-2024 Telephone [id number] Sergio Avila S 1955 F Date Provider Department [place] 01/15/2024 895-KISHAN MARINELLI CARD [facility] No family history on file Normal [facility] Office Visiton 01-14-2024 Follow-up visit [id number] Sergio Avilany S 1955 F Date Provider Department [place] 01/14/2024 271-REBEKA PARDO CARD [facility] No family history on file Level of Service:56447 [place] OFFICE/OUTPATIENT ESTABLISHED MOD MDM 30 MIN Normal [facility] Documentationon 12-03-2023 Documentation [id number] Sergio Avilany S 1955 F Date Provider Department [facility] 12/03/2023 Adryan-ALEXIA CLINE [facility] No family history on file [facility] Office Visiton 07-08-2023 Follow-up visit [id number] Sergio Avilany S 1955 F Date Provider Department Center 07/08/2023 120ALEXIA TERAN [facility] No family history on file Level of Service:20240 [place] OFFICE/OUTPATIENT ESTABLISHED MOD MDM 30-39 MIN Reason for Visit and Comments: Hospital Follow-up [832] - Chest pain Normal [facility] Office Visiton 04-25-2023 Follow-up visit [id number] MargaritaSergio ghoshny S 1955 F Date Provider Department Center 04/25/2023 [id number]-MBUXAZIJMJONO LOPEZ CARD [facility] No family history on file Level of Service:47792 [place] OFFICE/OUTPATIENT ESTABLISHED LOW MDM 20-29 MIN Normal [facility] POINT OF CARE GLUCOSEon 03-19 Glucose [Mass/Vol] 90 mg/dL Normal 74-106 [facility] Comment on above: Performed By: #### P OCGLUC #### [facility] [place] [facility] [address] [place] [address] Dr. Win Ardon CARDIAC STRESS TESTon 2022 [...] reported nuclear myocardial perfusion imaging. Normal [facility] [place] [facility] CBC AUTO DIFFon 04-01-2023 BASO # 0.1 103/ul Normal 0.0-0.1 [facility] Comment on above: Performed By: #### C BC #### [facility] [place] [facility] [address] [address] [address] Win Ardon Basophils/100 WBC (Bld) 1.3 % Normal 0.2-2.0 [facility] [place] [facility] Comment on above: Performed By: #### C BC #### [facility] [place] [facility] [address] [address] [address] Win Ardon EO # 0.4 103/ul Normal 0.0-0.7 [facility] [place] [facility] Comment on above: Performed By: #### C BC #### [facility] [place] [facility] [address] [place] [address] Dr. Win Ardon Eosinophils/100 WBC (Bld) 4.1 % Normal 0.9-7.0 [facility] Comment on above: Performed By: #### C BC #### [facility] [place] [facility] [address] [place] [address] Dr. Win Ardon Erythrocyte distribution width (RBC) [Ratio] 13.3 % Normal 11.0-15.0 [facility] Comment on above: Performed By: #### C BC #### [facility] [place] [facility] [address] [place] [address] Dr. Win Ardon Hematocrit (Bld) [Volume fraction] 38.9 % Normal 36.0-48.0 [facility] Comment on above: Performed By: #### C BC #### [facility] [place] [facility] [address] [place] [address] Dr. Win Ardon Hemoglobin (Bld) [Mass/Vol] 13.2 g/dL Normal 12.0-16.0 [facility] Comment on above: Performed By: #### C BC #### [facility] [place] [facility] [address] [place] [address] Dr. Win Ardon IG # 0.04 10e3/ul Critically high 0.00-0.03 [facility] Comment on above: Performed By: #### C BC #### [facility] [place] [facility] [address] [place] [address] Dr. Win Ardon IG % 0.4 % Normal 0.0-0.5 [facility] Comment on above: Performed By: #### C BC #### [facility] [place] [facility] [address] [place] [address] Dr. Win Ardon LYMPH # 3.2 103/ul Normal 1.2-3.8 [facility] [place] [facility] Comment on above: Performed By: #### C BC #### [facility] [place] [facility] [address] [place] [address] Dr. Win Ardon Lymphocytes/100 WBC (Bld) 34.7 % Normal 20.5-60.0 [facility] Comment on above: Performed By: #### C BC #### [facility] [place] [facility] [address] [place] [address] Dr. Win Ardon MANUAL DIFF REQ NO Normal [facility] Comment on above: Performed By: #### C BC #### [facility] [place] [facility] [address] [place] [address] Dr. Win Ardon MCH (RBC) [Entitic mass] 31.3 pg Normal 26.7-34.0 [facility] [place] [facility] Comment on above: Performed By: #### C BC #### [facility] [place] [facility] [address] [place] [address] Dr. Win Ardon MCHC (RBC) [Mass/Vol] 33.9 g/dL Normal 29.9-35.2 [facility] [place] [facility] Comment on above: Performed By: #### C BC #### [facility] [place] [facility] [address] [place] [address] Dr. Win Ardon MCV (RBC) [Entitic vol] 92.2 fL Normal 81.0-99.0 [facility] [place] [facility] Comment on above: Performed By: #### C BC #### [facility] [place] [facility] [address] [place] [address] Dr. Win Ardon MONO # 0.7 103/ul Normal 0.3-0.8 [facility] [place] [facility] Comment on above: Performed By: #### C BC #### [facility] [place] [facility] [address] [place] [address] Dr. Win Ardon Monocytes/100 WBC (Bld) 7.1 % Normal 1.7-12.0 [facility] [place] [facility] Comment on above: Performed By: #### C BC #### [facility] [address] [place] [address] Dr. Win Ardon NEUT # 4.9 103/ul Normal 1.4-6.5 [facility] [place] [facility] Comment on above: Performed By: #### C BC #### [facility] [address] [place] [address] Dr. Win Ardon Neutrophils/100 WBC (Bld) 52.4 % Normal 43.0-75.0 [facility] [place] [facility] Comment on above: Performed By: #### C BC #### [facility] [address] [place] [address] Dr. Win Ardon Platelet mean volume (Bld) [Entitic vol] 10.6 fL Normal 9.5-13.5 [facility] [place] [facility] Comment on above: Performed By: #### C BC #### [facility] [place] [facility] [address] [place], [place] [address] Dr. Win Ardon PLT 231 103/ul Normal 150-450 [facility] [place] [facility] Comment on above: Performed By: #### C BC #### [facility] [place] [facility] [address] [address] [address] Win Ardon RBC 4.22 106/ul Normal 4.20-5.40 [facility] Comment on above: Performed By: #### C BC #### [facility] [place] [facility] [address] [address] [address] Win Ardon WBC 9.3 103/ul Normal 4.0-11.0 [facility] Comment on above: Performed By: #### C BC #### [facility] [place] [facility] [address] [address] ABD/PELVIS WO CONon [...] by: LISSETT ALAN Date: 2023-04-01 20:03 Normal [facility] LACTATE/LACTIC ACIDon 2022 Lactate [Moles/Vol] 1.2 mmol/L Normal 0.4-2.0 [facility] Comment on above: Performed By: #### L ACT #### [facility] [place] [facility] [address] [address] [address] Win Ardon NM STRESS/REST MULTIon 04-01 NM STRESS/REST MULTI Patient: YEYO AVILA Exam Date: 04/01/2023 : 1955 Gender:F Ordering : MRS. JONO LOPEZ STAFF PHYSICAL THERAPY ASSISTANT Admission #: [id number] Family : SHAIKH Aroldo HERNANDEZ . Order #: [id number] CLICK HERE TO VIEW EXAM RADIOLOGY REPORT [...] Clark M.D. on 04/02/2023 at 11:10 Normal [facility] OCC BLD IMMUNO SCREENon 03-17 OCCULT BLOOD Positive Abnormal NEGATIVE [facility] [place] [facility] Comment on above: Performed By: #### O BSCRN #### [facility] [place] [facility] [address] [address] [address] Win Ardon PROF 14(COMP METB)on 023 Albumin [Mass/Vol] 3.8 g/dL Normal 3.4-5.0 [facility] [place] [facility] Comment on above: Performed By: #### C MP ####[facility] [place] [facility] [address] [address]DrOtilia Ardon Albumin/Globulin [Mass ratio] 1.1 {ratio} Normal [facility] [place] [facility] Comment on above: Performed By: #### C MP ####[facility] [place] [facility] [address] [address]DrOtilia Ardon ALP [Catalytic activity/Vol] 99 U/L Normal 46-116 [facility] [place] [facility] Comment on above: Performed By: #### C MP ####[facility] [place] [facility] [address] [address]DrOtilia Ardon ALT [Catalytic activity/Vol] 17 U/L Normal 14-59 [facility] [place] [facility] Comment on above: Performed By: #### C MP ####[facility] [place] [facility] [address] [address]DrOtilia Ardon Anion gap [Moles/Vol] 13.4 mmol/L Normal [facility] [place] [facility] Comment on above: Performed By: #### C MP ####[facility] [place] [facility] [address] [address]DrOtilia Ardon AST [Catalytic activity/Vol] 11 U/L Critically low 15-37 [facility] [place] [facility] Comment on above: Performed By: #### C MP ####[facility] [place] [facility] [address] [address]DrOtilia Ardon Bilirubin [Mass/Vol] 0.6 mg/dL Normal 0.2-1.0 [facility] [place] [facility] Comment on above: Performed By: #### C MP ####[facility] [place] [facility] [address] [address]DrOtilia Ardon Calcium [Mass/Vol] 9.1 mg/dL Normal 8.5-10.1 [facility] Comment on above: Performed By: #### C MP ####[facility] [place] [facility] [address] [address]Dr. Win Ardon Chloride [Moles/Vol] 106 mmol/L Normal 98-107 [facility] [place] [facility] Comment on above: Performed By: #### C MP ####[facility] [place] [facility] [address] [address]Dr. Win Ardon CO2 [Moles/Vol] 29.2 mmol/L Normal 21.0-32.0 [facility] [place] [facility] Comment on above: Performed By: #### C MP ####[facility] [place] [facility] [address] [place], [place] [address]Dr. Claudiaaida Duglas Creatinine [Mass/Vol] 0.95 mg/dL Normal 0.55-1.02 [facility] [place] [facility] Comment on above: Performed By: #### C MP ####[facility] [place] [facility] [address] [place], [place] [address]Dr. Win Duglas EGFR-AF YEMENI >60 Normal >=60 [facility] Comment on above: Performed By: #### C MP ####[facility] [place] [facility] [address] [place], [place] [address]Dr. Claudiaaida Duglas EGFR-NON AF YEMENI 59 mL/min/1.73m2 Critically low >=60 [facility] [place] [facility] Comment on above: Performed By: #### C MP ####[facility] [place] [facility] [address] [address]Dr. Win Ardon Globulin (S) [Mass/Vol] 3.4 g/dL Normal [facility] Comment on above: Performed By: #### C MP ####[facility] [place] [facility] [address] [address]Dr. Win Ardon Glucose [Mass/Vol] 162 mg/dL Critically high 74-106 [facility] Comment on above: Performed By: #### C MP ####[facility] [place] [facility] [address] [address]Dr. Win Ardon Potassium [Moles/Vol] 3.6 mmol/L Normal 3.5-5.1 [facility] Comment on above: Performed By: #### C MP ####[facility] [place] [facility] [address] [place], [place] [address]Dr. Win Ardon Protein [Mass/Vol] 7.2 g/dL Normal 6.4-8.2 [facility] Comment on above: Performed By: #### C MP ####[facility] [place] [facility] [address] [place], [place] [address]Dr. Win Ardon Sodium [Moles/Vol] 145 mmol/L Normal 136-145 [facility] [place] [facility] Comment on above: Performed By: #### C MP ####[facility] [place] [facility] Sm[address] [place], [place] [address]Dr. Win Ardon Urea nitrogen [Mass/Vol] 14.0 mg/dL Normal 7.0-18.0 [facility] Comment on above: Performed By: #### C MP ####[facility] [place] [facility] [address] [place], [place] [address]Dr. Win Ardon Urea nitrogen/Creatinine [Mass ratio] 14.7 mg/mg Normal [facility] Comment on above: Performed By: #### C MP ####[facility] [place] [facility] [address] [place], [place] [address]Dr. Win Ardon PROTIMEon 04-01-2023 INR Coag (PPP) [Relative time] 1.02 {INR} Normal [facility] [place] [facility] Comment on above: Performed By: #### P TT, PT ####[facility] [place] [facility] X[address] [place], [place] [address]Dr. Win Arodn INR GUIDELINES SEE BELOW Normal [facility] [place] [facility] Comment on above: Result Comment: MAGDA RED INR: 2.0 - 3.0 CONDITIONS NOT LISTED BELOW 2.5 - 3.5 FOR PROSTHETIC HEART VALVE REPLACEMENT 2.5 - 3.5 RECURRENT THROMBOSIS Performed By: #### P TT, PT ####[facility] [place] [facility] [address] [place], [place] [address]Dr. Win Ardon PT Coag (PPP) [Time] 10.8 s Normal 9.0-11.6 [facility] [place] [facility] Comment on above: Performed By: #### P TT, PT ####[facility] [place] [facility] [address] [address]Dr. Win Ardon PTTon 04-01-2023 aPTT Coag (Bld) [Time] 26.5 s Normal 22.3-36.2 [facility] Comment on above: Performed By: #### P TT, PT ####[facility] [place] [facility] [address] [place], [place] [address]Dr. Win Ardon TYPE AND SCREENon 04-01-2023 TYPE AND SCREEN Negative Normal [facility] Comment on above: Performed By: #### T NS ####[facility] [place] [facility] [address] [place], [place] [address]Dr. Win Ardon CBC AUTO DIFFon 03-24-2023 BASO # 0.1 103/ul Normal 0.0-0.1 [facility] Comment on above: Performed By: #### C BC ####[facility] [place] [facility] Sr[address] [place], [place] [address]Dr. Win Ardon Basophils/100 WBC (Bld) 1.0 % Normal 0.2-2.0 [facility] Comment on above: Performed By: #### C BC ####[facility] [place] [facility] [address] [place], [place] [address]Dr. Win Ardon EO # 0.3 103/ul Normal 0.0-0.7 [facility] [place] [facility] Comment on above: Performed By: #### C BC ####[facility] [place] [facility] [address] [place], [place] [address]Dr. Win Ardon Eosinophils/100 WBC (Bld) 3.3 % Normal 0.9-7.0 [facility] [place] [facility] Comment on above: Performed By: #### C BC ####[facility] [place] [facility] [address] [place], [place] [address]Dr. Win Ardon Erythrocyte distribution width (RBC) [Ratio] 13.2 % Normal 11.0-15.0 [facility] [place] [facility] Comment on above: Performed By: #### C BC ####[facility] [place] [facility] [address] [place], [place] [address]Dr. Win Ardon Hematocrit (Bld) [Volume fraction] 41.3 % Normal 36.0-48.0 [facility] Comment on above: Performed By: #### C BC ####[facility] [place] [facility] [address] [address]Dr. Win Ardon Hemoglobin (Bld) [Mass/Vol] 13.6 g/dL Normal 12.0-16.0 [facility] Comment on above: Performed By: #### C BC ####[facility] [place] [facility] [address] [address]Dr. Claudiaaida Duglas IG # 0.04 10e3/ul Critically high 0.00-0.03 [facility] Comment on above: Performed By: #### C BC ####[facility] [place] [facility] [address] [address]Dr. Win Ardon IG % 0.4 % Normal 0.0-0.5 [facility] Comment on above: Performed By: #### C BC ####[facility] [place] [facility] [address]co[address] [place], [place] [address]Dr. Win Ardon LYMPH # 2.2 103/ul Normal 1.2-3.8 [facility] Comment on above: Performed By: #### C BC ####[facility] [address] [place], [place] [address]Dr. Claudiaaida Ardon Lymphocytes/100 WBC (Bld) 23.8 % Normal 20.5-60.0 [facility] Comment on above: Performed By: #### C BC ####[facility] [address] [place], [place] [address]Dr. Win Ardon MANUAL DIFF REQ NO Normal [facility] Comment on above: Performed By: #### C BC ####[facility] [place] [facility] [address] [place], [place] [address]Dr. Win Ardon MCH (RBC) [Entitic mass] 30.6 pg Normal 26.7-34.0 [facility] Comment on above: Performed By: #### C BC ####[facility] [address] [place], [place] [address]Dr. Win Ardon MCHC (RBC) [Mass/Vol] 32.9 g/dL Normal 29.9-35.2 [facility] Comment on above: Performed By: #### C BC ####[facility] [address] [address]Dr. Win Ardon MCV (RBC) [Entitic vol] 93.0 fL Normal 81.0-99.0 [facility] Comment on above: Performed By: #### C BC ####[facility] [address] [address]Dr. Win Ardon MONO # 0.7 103/ul Normal 0.3-0.8 [facility] Comment on above: Performed By: #### C BC ####[facility] [address] [place], [place] [address]Dr. Win Duglas Monocytes/100 WBC (Bld) 7.3 % Normal 1.7-12.0 [facility] Comment on above: Performed By: #### C BC ####[facility] [address] [place], [place] [address]Dr. Win Ardon NEUT # 5.8 103/ul Normal 1.4-6.5 [facility] Comment on above: Performed By: #### C BC ####[facility] [address] [place], [place] [address]Dr. Win Duglas Neutrophils/100 WBC (Bld) 64.2 % Normal 43.0-75.0 [facility] Comment on above: Performed By: #### C BC ####[facility] [address] [place], [place] [address]Dr. Win Duglas Platelet mean volume (Bld) [Entitic vol] 11.0 fL Normal 9.5-13.5 [facility] Comment on above: Performed By: #### C BC ####[facility] [address] [place], [place] [address]Dr. Win Duglas PLT 243 103/ul Normal 150-450 [facility] Comment on above: Performed By: #### C BC ####[facility] [address] [address]Dr. Win Ardon RBC 4.44 106/ul Normal 4.20-5.40 [facility] Comment on above: Performed By: #### C BC ####[facility] [address] [place], [place] [address]LrDr. Win Ardon WBC 9.1 103/ul Normal 4.0-11.0 [facility] Comment on above: Performed By: #### C BC ####[facility] [address] [address]Dr. Win Ardon LIPID PROFILEon 03-24-2023 CHOL-HDL RATIO NORM SEE BELOW Normal [facility] Comment on above: Result Comment: 3.3 - 4.4 LOW RISK 4.4 - 7.1 AVERAGE RISK 7.1 - 11.0 MODERATE RISK >11.0 HIGH RISK Performed By: #### C MP, LIPID #### [facility] [address] [address] [address] Win Ardon Cholesterol [Mass/Vol] 99 mg/dL Normal <=200 [facility] Comment on above: Performed By: #### C MP, LIPID #### [facility] [address] [address] [address] Win Ardon Cholesterol in HDL [Mass/Vol] 34 mg/dL Critically low 40-60 [facility] Comment on above: Performed By: #### C MP, LIPID #### [facility] [address] [address] [address] Win Ardon Cholesterol in LDL [Mass/Vol] 35.8 mg/dL Normal [facility] Comment on above: Performed By: #### C MP, LIPID #### [facility] [address] [address] [address] Win Ardon Cholesterol.total/Ch olesterol in HDL [Mass ratio] 2.9 {ratio} Normal [facility] Comment on above: Performed By: #### C MP, LIPID #### [facility] [address] [address] [address] Win Ardon HDL NORMAL > or = 60 mg/dl - LO W CARDIOVASCULAR RISK <40 mg/dl - HIGH CARDIOVASCULAR RISK Normal [facility] Comment on above: Performed By: #### C MP, LIPID #### [facility] [address] [address] [address] Win Ardon LDL CALC NORMAL SEE BELOW Normal [facility] Comment on above: Result Comment: <100 mg/dl OPTIMAL 100 - 129 mg/dl NEAR OR ABOVE OPTIMAL 130 - 159 mg/dl BORDERLINE HIGH 160 - 189 mg/dl HIGH >190 mg/dl VERY HIGH Performed By: #### C MP, LIPID #### [facility] [address] [place] [address] Dr. Win Ardon Triglyceride [Mass/Vol] 146 mg/dL Normal <=150 [facility] Comment on above: Performed By: #### C MP, LIPID #### [facility] [address] [address] [address] Win Ardon VLDL CALC 29.2 mg/dL Normal [facility] Comment on above: Performed By: #### C MP, LIPID #### [facility] [address] [place] [address] Dr. Win Ardon PROF 14(COMP METB)on 023 Albumin [Mass/Vol] 3.9 g/dL Normal 3.4-5.0 [facility] Comment on above: Performed By: #### C MP, LIPID #### [facility] [address] [place] [address] Dr. Win Ardon Albumin/Globulin [Mass ratio] 1.1 {ratio} Normal [facility] Comment on above: Performed By: #### C MP, LIPID #### [facility] [address] [place] [address] Dr. Win Ardon ALP [Catalytic activity/Vol] 96 U/L Normal 46-116 [facility] [place] [facility] Comment on above: Performed By: #### C MP, LIPID #### [facility] [address] [place] [address] Dr. Win Ardon ALT [Catalytic activity/Vol] 15 U/L Normal 14-59 [facility] [place] [facility] Comment on above: Performed By: #### C MP, LIPID #### [facility] [address] [place] [address] Dr. Win Ardon Anion gap [Moles/Vol] 12.1 mmol/L Normal [facility] Comment on above: Performed By: #### C MP, LIPID #### [facility] [address] [address] [address] Win Ardon AST [Catalytic activity/Vol] 10 U/L Critically low 15-37 [facility] Comment on above: Performed By: #### C MP, LIPID #### [facility] [address] [address] [address] Win Ardon Bilirubin [Mass/Vol] 0.8 mg/dL Normal 0.2-1.0 [facility] Comment on above: Performed By: #### C MP, LIPID #### [facility] [address] [address] [address] Win Ardon Calcium [Mass/Vol] 9.1 mg/dL Normal 8.5-10.1 [facility] Comment on above: Performed By: #### C MP, LIPID #### [facility] [address] [place] [address] Dr. Win Ardon Chloride [Moles/Vol] 102 mmol/L Normal 98-107 [facility] Comment on above: Performed By: #### C MP, LIPID #### [facility] [address] [address] [address] Win Ardon CO2 [Moles/Vol] 26.0 mmol/L Normal 21.0-32.0 [facility] Comment on above: Performed By: #### C MP, LIPID #### [facility] [address] [address] [address] Win Ardon Creatinine [Mass/Vol] 0.95 mg/dL Normal 0.55-1.02 [facility] Comment on above: Performed By: #### C MP, LIPID #### [facility] [address] [address] [address] Win Ardon EGFR-AF YEMENI >60 Normal >=60 [facility] Comment on above: Performed By: #### C MP, LIPID #### [facility] [address] [address] [address] Win Ardon EGFR-NON AF YEMENI 59 mL/min/1.73m2 Critically low >=60 [facility] Comment on above: Performed By: #### C MP, LIPID #### [facility] [address] [address] [address] Win Ardon Globulin (S) [Mass/Vol] 3.7 g/dL Normal [facility] Comment on above: Performed By: #### C MP, LIPID #### [facility] [address] [address] [address] Win Ardon Glucose [Mass/Vol] 336 mg/dL Critically high 74-106 [facility] Comment on above: Performed By: #### C MP, LIPID #### [facility] [address] [address] [address] Win Ardon Potassium [Moles/Vol] 4.1 mmol/L Normal 3.5-5.1 [facility] Comment on above: Performed By: #### C MP, LIPID #### [facility] [address] [place] [address] Dr. Win Ardon Protein [Mass/Vol] 7.6 g/dL Normal 6.4-8.2 [facility] Comment on above: Performed By: #### C MP, LIPID #### [facility] [address] [place] [address] Dr. Win Ardon Sodium [Moles/Vol] 136 mmol/L Normal 136-145 [facility] Comment on above: Performed By: #### C MP, LIPID #### [facility] [address] [place] [address] Dr. Win Ardon Urea nitrogen [Mass/Vol] 10.0 mg/dL Normal 7.0-18.0 [facility] Comment on above: Performed By: #### C MP, LIPID #### [facility] [address] [place] [address] Dr. Win Ardon Urea nitrogen/Creatinine [Mass ratio] 10.5 mg/mg Normal [facility] Comment on above: Performed By: #### C MP, LIPID #### [facility] [address] [place] [address] Dr. Win Ardon Office Visiton 03-10-2023 Follow-up visit [id number] Sergio Avila 1955 F Date Provider Department Center 03/10/2023 [id number] LOPEZ CARD [facility] No family history on file Level of Service:67330 [place] OFFICE/OUTPATIENT ESTABLISHED MOD MDM 30-39 MIN Reason for Visit and Comments: Coronary Artery Disease [187] Hypertension [477885] aneurysm of thoracic aorta [Other] Normal [facility] CHEMISTRYOrdered By: Lab ROP User on 02-24-2023 Glucose [Mass/Vol] 144 mg/dL High 55 - 99 mg/dL [facility] POC Subsection Comment on above: Result Comment: Edilia arleth Meter POC Device SN [id number] Invalid Interpretation Code FT POC Subsection POC User ID [id number] Invalid Interpretation Code FT POC Subsection POC Username KRISTI MADDEN Invalid Interpretation Code [facility] POC Subsection Glucose [Mass/Vol] 76 mg/dL Normal 55 - 99 mg/dL FT POC Subsection Comment on above: Result Comment: Edilia arleth Meter POC Device SN [id number] Invalid Interpretation Code FT POC Subsection POC User ID [id number] Invalid Interpretation Code FT POC Subsection POC Username KRISTI MADDEN Invalid Interpretation Code FT POC Subsection CHEMISTRYOrdered By: SYSTEM SYSTEM on 02-24-2023 Potassium [Moles/Vol] 3.7 mmol/L Normal 3.5 - 5.3 mmol/L [facility] Anion gap [Moles/Vol] 8 mmol/L Normal 6 - 16 mEq/L [facility] Calcium [Mass/Vol] 8.4 mg/dL Low 8.9 - 11. 1 mg/dL [facility] Chloride [Moles/Vol] 108 mmol/L Normal 101 - 1 11 mmol/L [facility] CO2 [Moles/Vol] 25 mmol/L Normal 21 - 31 mmol/L [facility] Creatinine [Mass/Vol] 1.2 mg/dL Normal 0.5 - 1.3 mg/dL [facility] GFR/1.73 sq M.predicted among blacks MDRD (S/P/Bld) [Vol rate/Area] 55 mL/min/1.73 m2 Low >=59mL/min /1.73 m2 [facility] Chem S GFR/1.73 sq M.predicted among non-blacks MDRD (S/P/Bld) [Vol rate/Area] 45 mL/min/1.73 m2 Low >=59mL/min /1.73 m2 [facility] Chem S Glucose [Mass/Vol] 102 mg/dL Normal [...] 26 mmol/L Normal 21 - 31 mmol/L [facility] Creatinine [Mass/Vol] 1.4 mg/dL High 0.5 - 1.3 mg/dL [facility] Remisol GFR/1.73 sq M.predicted among blacks MDRD (S/P/Bld) [Vol rate/Area] 46 mL/min/1.73 m2 Low >=59mL/min /1.73 m2 [facility] Chem S GFR/1.73 sq M.predicted among non-blacks MDRD (S/P/Bld) [Vol rate/Area] 38 mL/min/1.73 m2 Low >=59mL/min /1.73 m2 [facility] Chem S Globulin (S) [Mass/Vol] 2.8 g/dL [...] 20 [facility] Remisol COAGULATIONOrdered By: Soheila on Aliec on 02-24-2023 aPTT Coag (PPP) [Time] 23.9 [...] - 7.5 E9/L [facility] HemeAutoSS HEMATOLOGYOrdered By: Mahiniso n Alice on 02-24-2023 Erythrocyte distribution width (RBC) [Ratio] [...] Interpretation Code Negative [facility] UA Auto SS [place].plasma/Lithi um.RBC (Bld) [Mass ratio] 21-30 /HPF Invalid [...] [facility] UA Auto SS Urobilinogen Qn (U) 0.8426268 {John'U}/dL Normal 0.0 - 1.0 EU/dL [facility] UA Auto SS WBC Auto Ql (U) Trace *ABN* (02/24/23 2:06 AM) Invalid Interpretation Code Negative [facility] UA Auto SS WBC casts LM.LPF (Urine sed) [#/Area] 4-10 (02/24/23 2:06 AM) Normal [facility] UA Auto SS WBC LM.HPF (Urine sed) [#/Area] 0-5 /HPF Normal 0-5/HPF [facility] UA Auto SS Covid-19 PCR ([facility])on 01-17 SARS-CoV-2 (COVID-19) RNA OSVALDO+probe Ql (Unsp spec) Not detected Normal NOT DETECTED [facility] Comment on above: Result Comment: This test is not yet approved or cleared by the [place] FDA. When there are no FDA-approved or cleared tests available, and other criteria are met, FDA can make tests available under an emergency access mechanism called an Emergency Use Authorization (EUA). The EUA for this test is supported by the [employer] of Health and Human Service's (HHS's) declaration [...] SARS-CoV-2. Performed By: #### C VDTBH #### [facility] [address] [place] [address] Win Ardon SYMPTOMATIC COVID-19 ANTIGEN on 02-14-2023 EUA Statement SEE BELOW Normal [facility] Comment on above: Result Comment: [...] sooner. Performed By: #### C VDAGS #### [facility] [address] [place] [address] Win Ardon SARS-CoV-2 (COVID-19) RNA OSVALDO+probe Ql (Unsp spec) Negative Normal NEGATIVE [facility] Comment on above: Performed By: #### C VDAGS #### [facility] [address] [place] [address] Win Ardon XR KNEE RT 4V [...] MIKAEL GUZMAN Date: 2022-10-05 19:58 Normal [facility] [place] [facility] Creatinine (Bld) [Mass/Vol]O rdered By: Ese Tan on 02-18-2022 Creatinine [Mass/Vol] 0.8 mg/dL 0.6-1.3 [facility] Comment on above: ER/ESD physician is notified/shown all ISTAT results.Critical values may be confirmed by laboratory testing ifdeemed necessary by ER attending doctor. No Panel InformationOrdered By: Ese Tan on 02-18-2022 POC Estimated GFR > 60 [facility] Comment on above: GFR estimated refere nce range: According to KDOQI guidelines, <60 ml/min/1.73m2 is sufficient to diagnose a patient with chronic kidney disease. POC Estimated GFR Non- Amer > 60 [facility] Cardiovascular Lab Reporton 03-22-2021 Cardiovascular Lab Report [facility] Patient Name: [facility] Yeyo Cooper MR #: [id number] Department of Physician: Radha Carter M.D. Division of Service Date: 03/21/2021 Cardiology Birthdate: 1955 Adult Cardiovascular Room #: [place] [address] Cardiovascular Laboratory Report FINAL IMPRESSIONS: 1. 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 2. Patent stent in the second diagonal branch of the left anterior descending coronary artery with dbtv-xr-cljjpeik in-stent restenosis. 3. Otherwise, nonobstructive coronary arteries [...] bilateral selective coronary angiography, placement of a 6-[place] MynxGrip closure device. METHODS: After risks, benefits, and alternatives were explained, written informed consent was obtained. The patient was prepped and draped in the usual sterile fashion over the right groin. Using 1% lidocaine solution, local infiltration anesthesia was achieved. Using a modified Seldinger technique, a micropuncture kit, an ultrasound guidance access to the right common femoral vein and artery was obtained. A 6-[place] x 11 cm sheath were placed in each. Limited femoral angiography was performed via the micropuncture kit prior to upsizing through the 6-[place] sheath in the artery. A Cazares catheter [...] the procedure. All catheters were removed. A 6-[place] MynxGrip closure device was deployed per protocol [...] Pardo M.D. Date Trans: 03/22/2021 05:11 A/yoel [id number] cc: Alexia Cline, MSN, L[employer] HANDLER-C Department Of Surgery [place] [address] [facility] [address] Robin Ponce M.D. [address] [address] Normal [facility] Basic Metab w/rfx MGon 09-01 (cont.) Normal [facility] Comment on above: Result Comment: Aver age GFR for 60-69 years old: 85 mL/min/1.73sq m Chronic Kidney Disease: <60 mL/min/1.73sq m Kidney failure: <15 mL/min/1.73sq m eGFR calculated using average adult body mass. Additional eGFR calculator available at: http://www.[employer].com/multiple_crcl_2012.htm Performed By: #### E RTPF #### [address] [address] Chute Puller: Dheeraj Garcia MD Anion gap [Moles/Vol] 13 mmol/L Normal - [facility] Comment on above: Performed By: #### E RTPF #### [facility] [employer] [address] [place] [address] Chute Puller: Dheeraj Garcia MD Calcium [Mass/Vol] 8.8 mg/dL Normal 8.6-10.4 [facility] Comment on above: Performed By: #### E RTPF #### [address] [address] Chute Puller: Dheeraj Garcia MD Chloride [Moles/Vol] 106 mmol/L Normal 98-107 [facility] Comment on above: Performed By: #### E RTPF #### [address] [address] Chute Puller: Dheeraj Garcia MD CO2 [Moles/Vol] 21 mmol/L Normal 20-31 [facility] Comment on above: Performed By: #### E RTPF #### [address] [address] Chute Puller: Dheeraj Garcia MD Creatinine [Mass/Vol] 0.53 mg/dL Normal 0.50-0.90 [facility] Comment on above: Performed By: #### E RTPF #### [address] [address] Chute Puller: Dheeraj Garcia MD GFR, Amer >60 Normal >60 [facility] Comment on above: Performed By: #### E RTPF #### [address] [address] Chute Puller: Dheeraj Garcia MD GFR,non Amer >60 Normal >60 [facility] Comment on above: Performed By: #### E RTPF #### [address] [address] Chute Puller: Dheeraj Garcia MD Glucose [Mass/Vol] 169 mg/dL High 70-99 [facility] Comment on above: Performed By: #### E RTPF #### [address] [place] [address] Chute Puller: Dheeraj Garcia MD Potassium [Moles/Vol] 4.0 mmol/L Normal 3.7-5.3 [facility] Comment on above: Performed By: #### E RTPF #### [address] [address] Chute Puller: Dheeraj Garcia MD Sodium [Moles/Vol] 140 mmol/L Normal 135-144 [facility] Comment on above: Performed By: #### E RTPF #### [address] [address] Chute Puller: Dheeraj Garcia MD Urea nitrogen [Mass/Vol] 10 mg/dL Normal 8-23 [facility] Comment on above: Performed By: #### E RTPF #### [address] [address] Chute Puller: Dheeraj Garcia MD BUN/CRE Ratio NOT REPORTED Normal - [facility] Comment on above: Performed By: #### E RTPF #### [address] [address] Chute Puller: Dheeraj Garcia MD Staging: NOT REPORTED Normal [facility] Comment on above: Performed By: #### E RTPF #### [address] [address] Chute Puller: Dheeraj Garcia MD Basic Metabolic Panel w/ Ref martín to MGon 09-01-2020 Anion gap [Moles/Vol] 13 mmol/L 9 - 17 mmol/L [place] Bun/Cre Ratio NOT REPORTED [place] Calcium [Mass/Vol] 8.8 mg/dL 8.6 - 10. 4 mg/dL [place] Chloride [Moles/Vol] 106 mmol/L 98 - 10 7 mmol/L [place] CO2 [Moles/Vol] 21 mmol/L 20 - 31 mmol/L [place] Creatinine [Mass/Vol] 0.53 mg/dL 0.5 - 0.9 mg/dL [place] GFR >60 >60 mL/min [place] GFR Non- >60 >60 mL/min [place] GFR/1.73 sq M predicted among non-blacks MDRD (S/P/Bld) [Vol rate/Area] [place] Comment on above: Average GFR for 60-6 9 years old: 85 mL/min/1.73sq m Chronic Kidney Disease: <60 mL/min/1.73sq m Kidney failure: <15 mL/min/1.73sq m eGFR calculated using average adult body mass. Additional eGFR calculator available at: http://www.[employer]/multiple_crcl_2012.htm GFR/1.73 sq M predicted among non-blacks MDRD (S/P/Bld) [Vol rate/Area] NOT REPORTED [place] Glucose [Mass/Vol] 169 mg/dL High 70 - 99 mg/dL [place] Interpretation and review of laboratory results Abnormal [place] Potassium [Moles/Vol] 4.0 mmol/L 3.7 - 5.3 mmol/L [place] Sodium [Moles/Vol] 140 mmol/L 135 - 144 mmol/L [place] Urea nitrogen [Mass/Vol] 10 mg/dL 8 - 23 mg/dL [place] CBC auto differentialon - Basophils (Bld) [#/Vol] 0.10 10*3/uL [place] Basophils/100 WBC (Bld) 1 % 0 - 2 % [place] Differential Type NOT REPORTED [place] Eosinophils (Bld) [#/Vol] 0.25 10*3/uL [place] Eosinophils/100 WBC (Bld) 3 % 1 - 4 % [place] Erythrocyte distribution width (RBC) [Ratio] 14.0 % 11.8 - 14.4 % [place] Hematocrit (Bld) [Volume fraction] 40.7 % 36.3 - 47.1 % [place] Hemoglobin (Bld) [Mass/Vol] 12.7 g/dL 11.9 - 15.1 g/dL [place] Immature granulocytes (Bld) [#/Vol] 0.06 10*3/uL [place] Immature granulocytes (Bld) [#/Vol] 1 % High 0 [place] Interpretation and review of laboratory results Abnormal [place] Lymphocytes (Bld) [#/Vol] 2.12 10*3/uL [place] Lymphocytes/100 WBC (Bld) 23 % Low 24 - 43 % [place] MCH (RBC) [Entitic mass] 28.1 pg 25.2 - 33.5 pg [place] MCHC (RBC) [Mass/Vol] 31.2 g/dL 28.4 - 34.8 g/dL [place] MCV (RBC) [Entitic vol] 90.0 fL 82.6 - 102.9 fL [place] Monocytes (Bld) [#/Vol] 0.68 10*3/uL [place] Monocytes/100 WBC (Bld) 7 % 3 - 12 % [place] Platelet mean volume (Bld) [Entitic vol] 10.6 fL 8.1 - 13.5 fL [place] Platelets (Bld) [#/Vol] NOT REPORTED [place] Platelets (Bld) [#/Vol] 251 10*3/uL [place] RBC (Bld) [#/Vol] 4.52 10*6/uL 3.95 - 5.11 m/uL [place] RBC morphology finding Nom (Bld) NOT REPORTED [place] Segmented neutrophils/100 WBC (Bld) 65 % 36 - 65 % [place] Segs Absolute 6.18 [place] WBC (Bld) [#/Vol] 0.0 10*3/uL 0.0 per 100 WBC [place] WBC (Bld) [#/Vol] 9.4 10*3/uL [place] WBC Morphology NOT REPORTED [place] CBC with Diffon 09-01-2020 Abs. Basophil 0.10 k/uL Normal 0.00-0.20 [facility] Comment on above: Performed By: #### C DP, HCG, ALCB, BMPX, LIPR, GLYHGB #### [address] [address] Chute Puller: Dheeraj Garcia MD Abs.Imm.Granulocyte 0.06 k/uL Normal 0.00-0.30 [facility] Comment on above: Performed By: #### C DP, HCG, ALCB, BMPX, LIPR, GLYHGB #### [address] [address] Chute Puller: Dheeraj Garcia MD Abs.Neutrophil (Seg) 6.18 k/uL Normal 1.50-8.10 [facility] Comment on above: Performed By: #### C DP, HCG, ALCB, BMPX, LIPR, GLYHGB #### [address] [address] Chute Puller: Dheeraj Garcia MD Basophils/100 WBC (Bld) 1 % Normal 0-2 [facility] Comment on above: Performed By: #### C DP, HCG, ALCB, BMPX, LIPR, GLYHGB #### [address] [address] Chute Puller: Dheeraj Garcia MD Eosinophils (Bld) [#/Vol] 0.25 10*3/uL Normal 0.00-0.44 [facility] Comment on above: Performed By: #### C DP, HCG, ALCB, BMPX, LIPR, GLYHGB #### [address] [address] Chute Puller: Dheeraj Garcia MD Eosinophils/100 WBC (Bld) 3 % Normal 1-4 [facility] Comment on above: Performed By: #### C DP, HCG, ALCB, BMPX, LIPR, GLYHGB #### [place] [address] Chute Puller: Dheeraj Garcia MD Erythrocyte distribution width (RBC) [Ratio] 14.0 % Normal 11.8-14.4 [facility] Comment on above: Performed By: #### C DP, HCG, ALCB, BMPX, LIPR, GLYHGB #### [place] [address] Chute Puller: Dheeraj Garcia MD Hematocrit (Bld) [Volume fraction] 40.7 % Normal 36.3-47.1 [facility] Comment on above: Performed By: #### C DP, HCG, ALCB, BMPX, LIPR, GLYHGB #### [place] [address] Chute Puller: Dheeraj Garcia MD Hemoglobin (Bld) [Mass/Vol] 12.7 g/dL Normal 11.9-15.1 [facility] Comment on above: Performed By: #### C DP, HCG, ALCB, BMPX, LIPR, GLYHGB #### [place] [address] Chute Puller: Dheeraj Garcia MD Immature granulocytes (Bld) [#/Vol] 1 % High 0 [facility] Comment on above: Performed By: #### C DP, HCG, ALCB, BMPX, LIPR, GLYHGB #### [place] [address] Chute Puller: Dheeraj Garcia MD Lymphocytes (Bld) [#/Vol] 2.12 10*3/uL Normal 1.10-3.70 [facility] Comment on above: Performed By: #### C DP, HCG, ALCB, BMPX, LIPR, GLYHGB #### [address] [address] Chute Puller: Dheeraj Garcia MD Lymphocytes/100 WBC (Bld) 23 % Low 24-43 [facility] Comment on above: Performed By: #### C DP, HCG, ALCB, BMPX, LIPR, GLYHGB #### [address] [address] Chute Puller: Dheeraj Garcia MD MCH (RBC) [Entitic mass] 28.1 pg Normal 25.2-33.5 [facility] Comment on above: Performed By: #### C DP, HCG, ALCB, BMPX, LIPR, GLYHGB #### [address] [address] Chute Puller: Dheeraj Garcia MD MCHC (RBC) [Mass/Vol] 31.2 g/dL Normal 28.4-34.8 [facility] Comment on above: Performed By: #### C DP, HCG, ALCB, BMPX, LIPR, GLYHGB #### [address] [address] Chute Puller: Dheeraj Garcia MD MCV (RBC) [Entitic vol] 90.0 fL Normal 82.6-102.9 [facility] Comment on above: Performed By: #### C DP, HCG, ALCB, BMPX, LIPR, GLYHGB #### [facility] [employer] [address] [place] [address] Chute Puller: Dheeraj Garcia MD Monocytes (Bld) [#/Vol] 0.68 10*3/uL Normal 0.10-1.20 [facility] Comment on above: Performed By: #### C DP, HCG, ALCB, BMPX, LIPR, GLYHGB #### [address] [address] Chute Puller: Dheeraj Garcia MD Monocytes/100 WBC (Bld) 7 % Normal 3-12 [facility] Comment on above: Performed By: #### C DP, HCG, ALCB, BMPX, LIPR, GLYHGB #### [address] [address] Chute Puller: Dheeraj Garcia MD Neutrophil (Seg) 65 % Normal 36-65 [facility] Comment on above: Performed By: #### C DP, HCG, ALCB, BMPX, LIPR, GLYHGB #### [address] [address] Chute Puller: Dheearj Garcia MD NRBC Automated 0.0 per 100 WBC Normal 0.0 [facility] Comment on above: Performed By: #### C DP, HCG, ALCB, BMPX, LIPR, GLYHGB #### [address] [address] Chute Puller: Dheeraj Garcia MD Platelet mean volume (Bld) [Entitic vol] 10.6 fL Normal 8.1-13.5 [facility] Comment on above: Performed By: #### C DP, HCG, ALCB, BMPX, LIPR, GLYHGB #### [address] [address] Chute Puller: Dheeraj Garcia MD Platelets (Bld) [#/Vol] 251 10*3/uL Normal 138-453 [facility] Comment on above: Performed By: #### C DP, HCG, ALCB, BMPX, LIPR, GLYHGB #### [address] [address] Chute Puller: Dheeraj Garcai MD RBC (Bld) [#/Vol] 4.52 10*6/uL Normal 3.95-5.11 [facility] Comment on above: Performed By: #### C DP, HCG, ALCB, BMPX, LIPR, GLYHGB #### [address] [address] Chute Puller: Dheeraj Garcia MD WBC (Bld) [#/Vol] 9.4 10*3/uL Normal 3.5-11.3 [facility] Comment on above: Performed By: #### C DP, HCG, ALCB, BMPX, LIPR, GLYHGB #### [address] [address] Chute Puller: Dheeraj Garcia MD Auto Diff Performed NOT REPORTED Normal [facility] Comment on above: Performed By: #### C DP, HCG, ALCB, BMPX, LIPR, GLYHGB #### [address] [address] Chute Puller: Dheeraj Garcia MD Platelets (Bld) [#/Vol] NOT REPORTED Normal [facility] Comment on above: Performed By: #### C DP, HCG, ALCB, BMPX, LIPR, GLYHGB #### [address] [address] Chute Puller: Dheeraj Garcia MD RBC morphology finding Nom (Bld) NOT REPORTED Normal [facility] Comment on above: Performed By: #### C DP, HCG, ALCB, BMPX, LIPR, GLYHGB #### [facility] [employer] [address] [place] [address] Chute Puller: Dheeraj Garcai MD WBC Morphology NOT REPORTED Normal [facility] Comment on above: Performed By: #### C DP, HCG, ALCB, BMPX, LIPR, GLYHGB #### [facility] [employer] [address] [place] [address] Chute Puller: Dheeraj Garcia MD Echo Completeon 09-01-2020 Ellis, Mhpn Incoming C ardio Results From [facility]/Ge - 09/01/2020 3:37 PM EDT Transthoracic Echocardiography Report (TTE) Patient Name MARGARITA Date of Study 09/01/2020 YEYO Date of 1955 Gender Female Age 64 year(s) Race Room Number 0234 Height: 65 inch, 165.1 cm Corporate ID [id number] Weight: 232 pounds, 105.2 kg # Patient Acct [id number] BSA: 2.11 m^2 BMI: 38.61 # kg/m^2 MR # [id number] 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 Procedure Date Date: 09/01/2020 Start: 07:38 AM Study Location: [facility] Technical Quality: Fair visualization Comments:Syncope, R/o [...] Wall E' velocity:0.07 m/s Lateral Wall E/E':8.8 [facility] 09-01-2020 Ethanol [Mass/Vol] mg/dL <10 mg/dL [place] Ethanol percent <0.010 <0.010 % [place] Ethanol Alcoholon 09-01-2020 Ethanol [Mass/Vol] mg/dL Normal <10 [facility] Comment on above: Performed By: #### E RTPF #### [employer] [address] [place], [place] [id number] Chute Puller: Dheeraj Garcia MD Ethanol percent <0.010 Normal <0.010 [facility] Comment on above: Performed By: #### E RTPF #### [facility] [address] [place], [place] [id number] Chute Puller: Dheeraj Garcia MD HCG Qualitative, Serumon hCG Qual Negative NEGATIVE [place] Comment on above: Specimens with hCG l evels near the threshold of the test (25 mIU/mL) may give a negative or indeterminate result. In such cases, another test should be performed with a new specimen in 48-72 hours. If early is suspected clinically in this setting, correlation with quantitative serum b-hCG level is suggested. [employer] has confirmed the use of plasma for this test. This has not been cleared or approved by the U.S. Food and Drug Administration. The FDA has determined that such clearance is not necessary. HCG Screen, Bloodon 09-01-20 20 HCG Qn Negative Normal NEG [facility] Comment on above: Result Comment: Spec imens with hCG levels near the threshold of the test (25 mIU/mL) may give a negative or indeterminate result. In such cases, another test should be performed with a new specimen in 48-72 hours. If early is suspected clinically in this setting, correlation with quantitative serum b-hCG level is suggested. [employer] has confirmed the use of plasma for this test. This has not been cleared or approved by the U.S. Food and Drug Administration. The FDA has determined that such clearance is not necessary. Performed By: #### E RTPF #### [employer] [address] [place] [address] Chute Puller: Dheeraj Garcia MD Hematologyon 09-01-2020 WBC (Bld) [#/Vol] DUPLICATE ORDER per 100 WBC [place] Hemoglobin A1Con 09-01-2020 HbA1c (Bld) [Mass fraction] 151 mg/dL Normal [facility] Comment on above: Result Comment: The ADA and AACC recommend providing the estimated average glucose result to permit better patient understanding of their HBA1c result. Performed By: #### E RTPF #### [facility] [employer] [address] [place] [address] Chute Puller: Dheeraj Garcia MD HbA1c (Bld) [Mass fraction] 6.9 % High 4.0-6.0 [facility] Comment on above: Performed By: #### E RTPF #### [address] [address] Chute Puller: Dheeraj Garcia MD Hemoglobin A1con 09-01-2020 Glucose [Mass/Vol] 151 mg/dL [place] Comment on above: The ADA and AACC rec ommend providing the estimated average glucose result to permit better patient understanding of their HBA1c result. HbA1c (Bld) [Mass fraction] 6.9 % High 4 - 6 % [place] Interpretation and review of laboratory results Abnormal [place] Lipid Profileon 09-01-2020 Cholesterol [Mass/Vol] 123 mg/dL Normal <200 [facility] Comment on above: Result Comment: Cholesterol Guidelines: <200 Desirable 200-240 Borderline >240 Undesirable Performed By: #### E RTPF #### [facility] [employer] [address] [place] [address] Chute Puller: Dheeraj Garcia MD Cholesterol in HDL [Mass/Vol] 43 mg/dL Normal >40 [facility] Comment on above: Result Comment: HDL Guidelines: <40 Undesirable 40-59 Borderline >59 Desirable Performed By: #### E RTPF #### [facility] [employer] [address] [place] [id number] Chute Puller: Dheeraj Garcia MD Cholesterol in LDL [Mass/Vol] 50 mg/dL Normal 0-130 [facility] Comment on above: Result Comment: LDL Guidelines: <100 Desirable 100-129 Near to/above Desirable 130-159 Borderline >159 Undesirable Direct (measured) LDL and calculated LDL are not interchangeable tests. Performed By: #### E RTPF #### [address] [address] Chute Puller: Dheeraj Garcia MD Cholesterol.total/Ch olesterol in HDL [Mass ratio] 2.9 {ratio} Normal <5 [facility] Comment on above: Performed By: #### E RTPF #### [address] [address] Chute Puller: Dheeraj Garcia MD Triglyceride [Mass/Vol] 149 mg/dL Normal <150 [facility] Comment on above: Result Comment: Triglyceride Guidelines: <150 Desirable 150-199 Borderline 200-499 High >499 Very high Based on AHA Guidelines for fasting triglyceride, August 2012. Performed By: #### E RTPF #### [address] [address] Chute Puller: Dheeraj Garcia MD Cholesterol in VLDL [Mass/Vol] NOT REPORTED Normal 1-30 [facility] Comment on above: Performed By: #### E RTPF #### [address] [address] Chute Puller: Dheeraj Garcia MD Lipid panel - fastingon 08-17 Cholesterol [Mass/Vol] 123 mg/dL <200 [place] Comment on above: Cholesterol Guidelines: <200 Desirable 200-240 Borderline >240 Undesirable Cholesterol in HDL [Mass/Vol] 43 mg/dL >40 [place] Comment on above: HDL Guidelines: <40 Undesirable 40-59 Borderline >59 Desirable Cholesterol in LDL [Mass/Vol] 50 mg/dL 0 - 130 mg/dL [place] Comment on above: LDL Guidelines: <100 Desirable 100-129 Near to/above Desirable 130-159 Borderline >159 Undesirable Direct (measured) LDL and calculated LDL are not interchangeable tests. Cholesterol in VLDL [Mass/Vol] NOT REPORTED 1 - 30 mg/dL [place] Cholesterol.total/Ch olesterol in HDL [Mass ratio] 2.9 {ratio} <5 [place] Triglyceride [Mass/Vol] 149 mg/dL <150 [place] Comment on above: Triglyceride Guidelines: <150 Desirable 150-199 Borderline 200-499 High >499 Very high Based on AHA Guidelines for fasting triglyceride, August 2012. Metabolic Panelon 09-01-2020 GFR/1.73 sq M predicted among non-blacks MDRD (S/P/Bld) [Vol rate/Area] DUPLICATE ORDER [place] TRAUMA PANELon 09-01-2020 Hubert Test NOT REPORTED [place] Anion gap [Moles/Vol] DUPLICATE ORDER mmol/L [place] aPTT Coag (Bld) [Time] 27.5 s [place] Comment on above: IV Heparin Therapy Range: 48.6-77.8 aPTT Coag (Bld) [Time] 37.0 s [place] Blood Bank Specimen BILL FOR SERVICES PERFORMED [place] Carboxyhemoglobin 0.6 % 0 - 5 % [place] Comment on above: Reference Range: Non-Smokers 0-2% Average Smoker 2-4% Heavy Smoker <10% Chloride [Moles/Vol] DUPLICATE ORDER mmol/L [place] CO2 [Moles/Vol] DUPLICATE ORDER mmol/L [place] Creatinine [Mass/Vol] DUPLICATE ORDER mg/dL [place] Erythrocyte distribution width (RBC) [Ratio] DUPLICATE ORDER % [place] Ethanol [Mass/Vol] Order moved to [facility] draw time. [id number] mg/dL [place] Ethanol percent Order moved to [facility] draw time. [id number] % [place] FIO2 UNKNOWN [place] GFR DUPLICATE ORDER >60 mL/min [place] GFR Non- DUPLICATE ORDER >60 mL/min [place] Glucose [Mass/Vol] DUPLICATE ORDER mg/dL [place] hCG Qual Order moved to [facility] draw time. [id number] NEGATIVE [place] HCO3, Venous 27.6 mmol/L 24 - 30 mmol/L [place] Hematocrit (Bld) [Volume fraction] DUPLICATE ORDER % [place] Hemoglobin (Bld) [Mass/Vol] DUPLICATE ORDER g/dL [place] INR Coag (PPP) [Relative time] 1.0 {INR} [place] Comment on above: Therapeutic Range: Moderate Anticoagulant Intensity: INR = 2.0-3.0 High Anticoagulant Intensity: INR = 2.5-3.5 Interpretation and review of laboratory results Abnormal [place] MCH (RBC) [Entitic mass] DUPLICATE ORDER pg [place] MCHC (RBC) [Mass/Vol] DUPLICATE ORDER g/dL [place] MCV (RBC) [Entitic vol] DUPLICATE ORDER fL [place] Methemoglobin NOT REPORTED 0 - 1.5 % [place] Mode NOT REPORTED [place] Negative Base Excess, Christo NOT REPORTED 0 - 2 mmol/L [place] NOTIFICATION NOT REPORTED [place] NOTIFICATION TIME NOT REPORTED [place] O2 Device/Flow/% NOT REPORTED [place] Oxygen saturation in Blood 43.1 % Low 60 - 85 % [place] Oxyhemoglobin NOT REPORTED 95 - 98 % [place] pCO2, Christo 48.8 [place] pCO2, Christo, Temp Adj NOT REPORTED [place] Peep/Cpap NOT REPORTED [place] pH, Christo 7.371 [place] pH, Christo, Temp Adj NOT REPORTED [place] Platelet mean volume (Bld) [Entitic vol] DUPLICATE ORDER fL [place] Platelets (Bld) [#/Vol] DUPLICATE ORDER k/uL [place] pO2, Christo 23.6 Low [place] pO2, Christo, Temp Adj NOT REPORTED [place] Positive Base Excess, Christo 2.1 mmol/L High 0 - 2 mmol/L [place] Potassium [Moles/Vol] DUPLICATE ORDER mmol/L [place] PSV NOT REPORTED [place] PT Coag (PPP) [Time] 10.4 s [place] Pt. Position NOT REPORTED [place] RBC (Bld) [#/Vol] DUPLICATE ORDER m/uL [place], [place] Sample Site NOT REPORTED [place] Set Rate NOT REPORTED [place] Sodium [Moles/Vol] DUPLICATE ORDER mmol/L [place] Text for Respiratory NOT REPORTED [place], [place] Total Hb NOT REPORTED 12 - 16 g/dl [place] Total Rate NOT REPORTED [place] Urea nitrogen [Mass/Vol] DUPLICATE ORDER mg/dL [place] VT NOT REPORTED [place] Trauma Profileon 09-01-2020 aPTT Coag (Bld) [Time] 27.5 s Normal 20.5-30.5 [facility] Comment on above: Result Comment: IV Heparin Therapy Range: 48.6-77.8 Performed By: #### E RTPF #### [place] [id number] Chute Puller: Dheeraj Garcia MD INR Coag (PPP) [Relative time] 1.0 {INR} Normal [facility] Comment on above: Result Comment: Therapeutic Range: Moderate Anticoagulant Intensity: INR = 2.0-3.0 High Anticoagulant Intensity: INR = 2.5-3.5 Performed By: #### E RTPF #### [facility] [employer] [address] [place] [address] Chute Puller: Dheeraj Garcia MD PT Coag (PPP) [Time] 10.4 s Normal 9.0-12.0 [facility] Comment on above: Performed By: #### E RTPF #### [facility] [address] [place] [address] Chute Puller: Dheeraj Garcia MD Body Temp. 37.0 Normal [facility] Comment on above: Performed By: #### E RTPF #### [address] [address] Chute Puller: Dheeraj Garcia MD Carboxy Hgb 0.6 % Normal 0-5 [facility] Comment on above: Result Comment: Reference Range: Non-Smokers 0-2% Average Smoker 2-4% Heavy Smoker <10% Performed By: #### E RTPF #### [address] [address] Chute Puller: Dheeraj Garcia MD FIO2 UNKNOWN Normal [facility] Comment on above: Performed By: #### E RTPF #### [address] [address] Chute Puller: Dheeraj Garcia MD HCO3 (Bld) [Moles/Vol] 27.6 mmol/L Normal 24-30 [facility] Comment on above: Performed By: #### E RTPF #### [address] [address] Chute Puller: Dheeraj Garcia MD Oxygen (Bld) [Partial pressure] 23.6 mm[Hg] Low 30-50 [facility] Comment on above: Performed By: #### E RTPF #### [address] [address] Chute Puller: Dheeraj Garcia MD Oxygen saturation in Blood 43.1 % Low 60.0-85.0 [facility] Comment on above: Performed By: #### E RTPF #### [address] [address] Chute Puller: Dheeraj Garcia MD pCO2 48.8 Normal 39-55 [facility] Comment on above: Performed By: #### E RTPF #### [facility] [employer] [address] [place] [address] Chute Puller: Dheeraj Garcia MD pH (Bld) 7.371 [pH] Normal 7.320-7.42 0 [facility] Comment on above: Performed By: #### E RTPF #### [address] [address] Chute Puller: Dheeraj Garcia MD Positive Base Excess 2.1 mmol/L High 0.0-2.0 [facility] Comment on above: Performed By: #### E RTPF #### [address] [address] Chute Puller: Dheeraj Garcia MD Hubert Test NOT REPORTED Normal [facility] Comment on above: Performed By: #### E RTPF #### [address] [address] Chute Puller: Dheeraj Garcia MD Methemoglobin NOT REPORTED Normal 0.0-1.5 [facility] Comment on above: Performed By: #### E RTPF #### [address] [address] Chute Puller: Dheeraj Garcia MD Mode NOT REPORTED Normal [facility] Comment on above: Performed By: #### E RTPF #### [address] [address] Chute Puller: Dheeraj Garcia MD Negative Base Excess NOT REPORTED Normal 0.0-2.0 [facility] Comment on above: Performed By: #### E RTPF #### [address] [address] Chute Puller: Dheeraj Garcia MD Notification Time NOT REPORTED Normal [facility] Comment on above: Performed By: #### E RTPF #### [address] [address] Chute Puller: Dheeraj Garcia MD Notification: NOT REPORTED Normal [facility] Comment on above: Performed By: #### E RTPF #### [address] [address] Chute Puller: Dheeraj Garcia MD O2 Device/Flow/% NOT REPORTED Normal [facility] Comment on above: Performed By: #### E RTPF #### [address] [address] Chute Puller: Dheeraj Garcia MD Oxyhemoglobin NOT REPORTED Normal 95.0-98.0 [facility] Comment on above: Performed By: #### E RTPF #### [address] [address] Chute Puller: Dheeraj Garcia MD Pco2 Adj'd for Temp. NOT REPORTED Normal 39-55 [facility] Comment on above: Performed By: #### E RTPF #### [address] [address] Chute Puller: Dheeraj Garcia MD PEEP/CPAP NOT REPORTED Normal [facility] Comment on above: Performed By: #### E RTPF #### [address] [address] Chute Puller: Dheeraj Garcia MD pH Adjst'd for Temp. NOT REPORTED Normal 7.320-7 .42 0 [facility] Comment on above: Performed By: #### E RTPF #### [facility] [address] [place] [address] Chute Puller: Dheeraj Garcia MD pO2 Adj'd for Temp. NOT REPORTED Normal 30-50 [facility] Comment on above: Performed By: #### E RTPF #### [facility] [address] [place] [address] Chute Puller: Dheeraj Garcia MD PSV NOT REPORTED Normal [facility] Comment on above: Performed By: #### E RTPF #### [address] [address] Chute Puller: Dheeraj Garcia MD Pt. Position NOT REPORTED Normal [facility] Comment on above: Performed By: #### E RTPF #### [address] [address] Chute Puller: Dheeraj Garcia MD Set Rate NOT REPORTED Normal [facility] Comment on above: Performed By: #### E RTPF #### [address] [address] Chute Puller: Dheeraj Garcia MD Site Drawn NOT REPORTED Normal [facility] Comment on above: Performed By: #### E RTPF #### [address] [address] Chute Puller: Dheeraj Garcia MD Text for Respiratory NOT REPORTED Normal [facility] Comment on above: Performed By: #### E RTPF #### [address] [address] Chute Puller: Dheeraj Garcia MD Total Hb NOT REPORTED Normal 12.0-16.0 [facility] Comment on above: Performed By: #### E RTPF #### [address] [address] Chute Puller: Dheeraj Garcia MD Total Rate NOT REPORTED Normal [facility] Comment on above: Performed By: #### E RTPF #### [address] [address] Chute Puller: Dheeraj Garcia MD [place] NOT REPORTED Normal [facility] Comment on above: Performed By: #### E RTPF #### [facility] [employer] [facility] [address] [place], [place] [id number] Chute Puller: Dheeraj Garcia MD Blood Bank BILL FOR SERVICES PERFORMED Normal [facility] Comment on above: Performed By: #### E RTPF #### [facility] [employer] [facility] [address] [place] [address] Chute Puller: Dheeraj Garcia MD CT CERVICAL SPINE WO [...] DO 08/30/20 Final result Normal [facility] CT CHEST ABDOMEN PELVIS W [...] MD 08/30/20 Final result Normal [facility] CT LUMBAR SPINE TRAUMA RECON [...] DO 08/30/20 Final result Normal [facility] CT THORACIC SPINE TRAUMA REC [...] DO 08/30/20 Final result Normal [facility] CTA HEAD NECK W CONTRASTon [...] MD 08/30/20 Final result Normal [facility] MRI LIMITED BRAINon 08-31-20 MRI [...] MD 08/31/20 Final result Normal [facility], [facility] Incoming R adiant Results From [employer] - 08/31/2020 11:56 AM EDT EXAMINATION: MRI [...] chronic microvascular disease without acute intracranial abnormality. [place], [place] Minimal chronic microvascular disease without acute intracranial abnormality. [place] EXAMINATION: MRI OF THE BRAIN WITHOUT [...] The soft tissues demonstrate no acute abnormality. [place], [place] Trauma Profileon 08-31-2020 Erythrocyte distribution width (RBC) [Ratio] 14.1 % Normal 11.8-14.4 [facility] Comment on above: Performed By: #### E RTPF #### [address] [address] Chute Puller: Dheeraj Garcia MD Hematocrit (Bld) [Volume fraction] 38.2 % Normal 36.3-47.1 [facility] Comment on above: Performed By: #### E RTPF #### [address] [address] Chute Puller: Dheeraj Garcia MD Hemoglobin (Bld) [Mass/Vol] 12.3 g/dL Normal 11.9-15.1 [facility] Comment on above: Performed By: #### E RTPF #### [address] [address] Chute Puller: Dheeraj Garcia MD MCH (RBC) [Entitic mass] 28.9 pg Normal 25.2-33.5 [facility] Comment on above: Performed By: #### E RTPF #### [address] [address] Chute Puller: Dheeraj Garcia MD MCHC (RBC) [Mass/Vol] 32.2 g/dL Normal 28.4-34.8 [facility] Comment on above: Performed By: #### E RTPF #### [address] [address] Chute Puller: Dheeraj Garcia MD MCV (RBC) [Entitic vol] 89.7 fL Normal 82.6-102.9 [facility] Comment on above: Performed By: #### E RTPF #### [address] [address] Chute Puller: Dheeraj Garcia MD NRBC Automated 0.0 per 100 WBC Normal 0.0 [facility] Comment on above: Performed By: #### E RTPF #### [address] [address] Chute Puller: Dheeraj Garcia MD Platelet mean volume (Bld) [Entitic vol] 10.6 fL Normal 8.1-13.5 [facility] Comment on above: Performed By: #### E RTPF #### [address] [address] Chute Puller: Dheeraj Garcia MD Platelets (Bld) [#/Vol] 268 10*3/uL Normal 138-453 [facility] Comment on above: Performed By: #### E RTPF #### [address] [address] Chute Puller: Dheeraj Garcia MD RBC (Bld) [#/Vol] 4.26 10*6/uL Normal 3.95-5.11 [facility] Comment on above: Performed By: #### E RTPF #### [address] [address] Chute Puller: Dheeraj Garcia MD WBC (Bld) [#/Vol] 8.7 10*3/uL Normal 3.5-11.3 [facility] Comment on above: Performed By: #### E RTPF #### [address] [address] Chute Puller: Dheeraj Garcia MD (cont.) Normal [facility] Comment on above: Result Comment: Aver age GFR for 60-69 years old: 85 mL/min/1.73sq m Chronic Kidney Disease: <60 mL/min/1.73sq m Kidney failure: <15 mL/min/1.73sq m eGFR calculated using average adult body mass. Additional eGFR calculator available at: http://[email or web address]/multiple_crcl_2012.htm Performed By: #### E RTPF #### [address] [address] Chute Puller: Dheeraj Garcia MD Anion gap [Moles/Vol] 10 mmol/L Normal 9-17 [facility] Comment on above: Performed By: #### E RTPF #### [address] [address] Chute Puller: Deheraj Garcia MD Chloride [Moles/Vol] 106 mmol/L Normal 98-107 [facility] Comment on above: Performed By: #### E RTPF #### [address] [address] Chute Puller: Dheeraj Garcia MD CO2 [Moles/Vol] 23 mmol/L Normal 20-31 [facility] Comment on above: Performed By: #### E RTPF #### [address] [address] Chute Puller: Dheeraj Garcia MD Creatinine [Mass/Vol] 0.62 mg/dL Normal 0.50-0.90 [facility] Comment on above: Performed By: #### E RTPF #### [facility] [address] [place] [address] Chute Puller: Dheeraj Garcia MD Ethanol [Mass/Vol] mg/dL Normal <10 [facility] Comment on above: Performed By: #### E RTPF #### [address] [address] Chute Puller: Dheeraj Garcia MD Ethanol percent <0.010 Normal <0.010 [facility] Comment on above: Performed By: #### E RTPF #### [address] [address] Chute Puller: Dheeraj Garcia MD GFR, Amer >60 Normal >60 [facility] Comment on above: Performed By: #### E RTPF #### [address] [address] Chute Puller: Dheeraj Garcia MD GFR,non Amer >60 Normal >60 [facility] Comment on above: Performed By: #### E RTPF #### [address] [address] Chute Puller: Dheeraj Garcia MD Glucose [Mass/Vol] 186 mg/dL High 70-99 [facility] Comment on above: Performed By: #### E RTPF #### [address] [address] Chute Puller: Dheeraj Garcia MD Potassium [Moles/Vol] 3.5 mmol/L Low 3.7-5.3 [facility] Comment on above: Performed By: #### E RTPF #### [address] [address] Chute Puller: Dheeraj Garcia MD Sodium [Moles/Vol] 139 mmol/L Normal 135-144 [facility] Comment on above: Performed By: #### E RTPF #### [address] [address] Chute Puller: Dheeraj Garcia MD Urea nitrogen [Mass/Vol] 11 mg/dL Normal 8-23 [facility] Comment on above: Performed By: #### E RTPF #### [address] [address] Chute Puller: Dheeraj Garcia MD aPTT Coag (Bld) [Time] 24.4 s Normal 20.5-30.5 [facility] Comment on above: Result Comment: IV Heparin Therapy Range: 48.6-77.8 Performed By: #### E RTPF #### [address] [address] Chute Puller: Dheeraj Garcia MD INR Coag (PPP) [Relative time] 1.0 {INR} Normal [facility] Comment on above: Result Comment: Therapeutic Range: Moderate Anticoagulant Intensity: INR = 2.0-3.0 High Anticoagulant Intensity: INR = 2.5-3.5 Performed By: #### E RTPF #### [address] [address] Chute Puller: Dheeraj Garcia MD PT Coag (PPP) [Time] 10.5 s Normal 9.0-12.0 [facility] Comment on above: Performed By: #### E RTPF #### [address] [address] Chute Puller: Dheeraj Garcia MD Body Temp. 37.0 Normal [facility] Comment on above: Performed By: #### E RTPF #### [address] [address] Chute Puller: Dheeraj Garcia MD Carboxy Hgb 2.2 % Normal 0-5 [facility] Comment on above: Result Comment: Reference Range: Non-Smokers 0-2% Average Smoker 2-4% Heavy Smoker <10% Performed By: #### E RTPF #### [address] [address] Chute Puller: Dheeraj Garcia MD FIO2 INFORMATION NOT PROVIDED [facility] Comment on above: Performed By: #### E RTPF #### [address] [address] Chute Puller: Dheeraj Garcia MD HCO3 (Bld) [Moles/Vol] 23.6 mmol/L Low 24-30 [facility] Comment on above: Performed By: #### E RTPF #### [address] [address] Chute Puller: Dheeraj Garcia MD Negative Base Excess 0.8 mmol/L Normal 0.0-2.0 [facility] Comment on above: Performed By: #### E RTPF #### [address] [address] Chute Puller: Dheeraj Garcia MD Oxygen (Bld) [Partial pressure] 143.0 mm[Hg] High 30-50 [facility] Comment on above: Performed By: #### E RTPF #### [address] [address] Chute Puller: Dheeraj Garcia MD Oxygen saturation in Blood 98.6 % High 60.0-85.0 [facility] Comment on above: Performed By: #### E RTPF #### [address] [address] Chute Puller: Dheeraj Garcia MD pCO2 40.6 Normal 39-55 [facility] Comment on above: Performed By: #### E RTPF #### [address] [address] Chute Puller: Dheeraj Garcia MD pH (Bld) 7.383 [pH] Normal 7.320-7.42 0 [facility] Comment on above: Performed By: #### E RTPF #### [address] [address] Chute Puller: Dheeraj Garcia MD Blood Bank BILL FOR SERVICES PERFORMED Normal [facility] Comment on above: Performed By: #### E RTPF #### [place] [address] [place] [address] Chute Puller: Dheeraj Garcia MD Hubert Test NOT REPORTED Normal [facility] Comment on above: Performed By: #### E RTPF #### [facility] [place] [address] Chute Puller: Dheeraj Garcia MD Methemoglobin NOT REPORTED Normal 0.0-1.5 [facility] Comment on above: Performed By: #### E RTPF #### [facility] [address] [place] [address] Chute Puller: Dheeraj Garcia MD Mode NOT REPORTED Normal [facility] Comment on above: Performed By: #### E RTPF #### [facility] [address] [place] [address] Chute Puller: Dheeraj Garcia MD Notification Time NOT REPORTED Normal [facility] Comment on above: Performed By: #### E RTPF #### [facility] [employer] [facility] [address] [place] [address] Chute Puller: Dheeraj Garcia MD Notification: NOT REPORTED Normal [facility] Comment on above: Performed By: #### E RTPF #### [facility] [address] [place] [address] Chute Puller: Dheeraj Garcia MD O2 Device/Flow/% NOT REPORTED Normal [facility] Comment on above: Performed By: #### E RTPF #### [facility] [address] [place] [address] Chute Puller: Dheeraj Garcia MD Oxyhemoglobin NOT REPORTED Normal 95.0-98.0 [facility] Comment on above: Performed By: #### E RTPF #### [facility] [address] [place] [address] Chute Puller: Dheeraj Garcia MD Pco2 Adj'd for Temp. NOT REPORTED Normal 39-55 [facility] Comment on above: Performed By: #### E RTPF #### [facility] [employer] [facility] [address] [place] [address] Chute Puller: Dheeraj Garcia MD PEEP/CPAP NOT REPORTED Normal [facility] Comment on above: Performed By: #### E RTPF #### [address] [address] Chute Puller: Dheeraj Garcia MD pH Adjst'd for Temp. NOT REPORTED Normal 7.320-7 .42 0 [facility] Comment on above: Performed By: #### E RTPF #### [address] [address] Chute Puller: Dheeraj Garcia MD pO2 Adj'd for Temp. NOT REPORTED Normal 30-50 [facility] Comment on above: Performed By: #### E RTPF #### [address] [address] Chute Puller: Dheeraj Garcia MD Positive Base Excess NOT REPORTED Normal 0.0-2.0 [facility] Comment on above: Performed By: #### E RTPF #### [address] [address] Chute Puller: Dheeraj Garcia MD PSV NOT REPORTED Normal [facility] Comment on above: Performed By: #### E RTPF #### [facility] [address] [place] [address] Chute Puller: Dheeraj Garcia MD Pt. Position NOT REPORTED Normal [facility] Comment on above: Performed By: #### E RTPF #### [address] [address] Chute Puller: Dheeraj Garcia MD Set Rate NOT REPORTED Normal [facility] Comment on above: Performed By: #### E RTPF #### [address] [address] Chute Puller: Dheeraj Garcia MD Site Drawn NOT REPORTED Normal [facility] Comment on above: Performed By: #### E RTPF #### [address] [address] Chute Puller: Dheeraj Garcia MD Staging: NOT REPORTED Normal [facility] Comment on above: Performed By: #### E RTPF #### [address] [address] Chute Puller: Dheeraj Garcia MD Text for Respiratory NOT REPORTED Normal [facility] Comment on above: Performed By: #### E RTPF #### [address] [address] Chute Puller: Dheeraj Garcia MD Total Hb NOT REPORTED Normal 12.0-16.0 [facility] Comment on above: Performed By: #### E RTPF #### [address] [address] Chute Puller: Dheeraj Garcia MD Total Rate NOT REPORTED Normal [facility] Comment on above: Performed By: #### E RTPF #### [address] [address] Chute Puller: Dheeraj Garcia MD [place] NOT REPORTED Normal [facility] Comment on above: Performed By: #### E RTPF #### [address] [address] Chute Puller: Dheeraj Garcia MD Type + Screenon 08-31-2020 Type + Screen Sample Expiration 09/02/2020,2359 Arm Band Number [place] [id number] ABO/Rh(D) O POSITIVE Antibody Screen NEGATIVE Normal [facility] Comment on above: Performed By: #### T YS #### [facility] [address] [place] [address] Chute Puller: Dheeraj Garcia MD XR SHOULDER LEFT (MIN [...] MD 08/31/20 Final result Normal [facility] EXAMINATION: TWO XRA Y VIEWS OF THE LEFT SHOULDER 08/31/2020 8:25 am COMPARISON: None. HISTORY: ORDERING SYSTEM PROVIDED HISTORY: trauma TECHNOLOGIST PROVIDED HISTORY: trauma Reason for Exam: trauma Acuity: Acute Type of Exam: Initial FINDINGS: The bones and joints are unremarkable without definite fracture, dislocation, abnormal soft tissue calcification or bony destructive lesion [employer] Unremarkable three v iew left shoulder series [employer] [place] [place] Incoming R adiant Results From [employer] - 08/31/2020 8:46 AM EDT EXAMINATION: TWO [...] IMPRESSION: Unremarkable three view left shoulder series [facility] [employer] CT CERVICAL SPINE WO CONTRAS Ton 08-30-2020 No evidence of an ac elsie fracture or traumatic malalignment involving the cervical spine [facility]: CT OF T HE CERVICAL SPINE [...] There is no prevertebral soft tissue swelling. [place], [place], [place] Incoming R adiant Results From [employer] - 08/30/2020 11:01 PM EDT EXAMINATION: CT [...] or traumatic malalignment involving the cervical spine [place], [place] CT CHEST ABDOMEN PELVIS W CO [...] aorta. Bones/Soft Tissues: No acute osseous abnormality. [facility] [place] [place], [place] Incoming R adiant Results From [employer] - 08/30/2020 11:25 PM EDT EXAMINATION: CT [...] could provide further information as clinically indicated. [place], [place] 1. No acute or traum atic intrathoracic abnormality. 2. No acute or traumatic intra-abdominal abnormality. 3. Dilation of the main pulmonary artery, suggestive of pulmonary artery hypertension. 4. Hepatic steatosis. 5. 1.6 cm left upper pole renal lesion is indeterminate, possibly a cyst. Renal protocol CT or MRI could provide further information as clinically indicated. [place] CT LUMBAR SPINE TRAUMA RECON STRUCTIONon [...] the upper pole of the left kidney. [place], [place], [place] Incoming R adiant Results From [employer] - 08/30/2020 11:26 PM EDT EXAMINATION: CT [...] or traumatic malalignment involving the lumbar spine. [place], [place] No evidence of an ac elsie fracture or traumatic malalignment involving the lumbar spine. [place] CT THORACIC SPINE TRAUMA REC ONSTRUCTIONon [...] the lung bases. No pneumothorax is noted. [place], [place] Incoming R adiant Results From [employer] - 08/30/2020 11:29 PM EDT EXAMINATION: CT [...] or traumatic malalignment involving the thoracic spine [place] No evidence of an ac elsie fracture or traumatic malalignment involving the thoracic spine [place] CTA HEAD NECK W CONTRASTon 1 Unremarkable CTA of the neck. 50% stenosis left intracranial ICA, otherwise unremarkable CTA head. [place], [place] Incoming R adiant Results From [employer] - 08/30/2020 11:48 PM EDT EXAMINATION: CTA [...] left intracranial ICA, otherwise unremarkable CTA head. [place], [place] EXAMINATION: CTA OF THE HEAD AND [...] fluid collection. The durán-white differentiation is maintained. [facility] [place] TYPE AND SCREENon 08-30-2020 ABO/Rh Positive [place], [place] Arm Band Number BE [id number] [place], [place] Expiration Date 09/02/2020,2359 [place], [place] Trauma Panelon 08-30-2020 Hubert Test NOT REPORTED [place] Anion gap [Moles/Vol] 10 mmol/L 9 - 17 mmol/L [place] aPTT Coag (Bld) [Time] 37.0 s [place] aPTT Coag (Bld) [Time] 24.4 s [place] Comment on above: IV Heparin Therapy Range: 48.6-77.8 Blood Bank Specimen BILL FOR SERVICES PERFORMED [place] Carboxyhemoglobin 2.2 % 0 - 5 % [place] Comment on above: Reference Range: Non-Smokers 0-2% Average Smoker 2-4% Heavy Smoker <10% Chloride [Moles/Vol] 106 mmol/L 98 - 10 7 mmol/L [place] CO2 [Moles/Vol] 23 mmol/L 20 - 31 mmol/L [place] Creatinine [Mass/Vol] 0.62 mg/dL 0.5 - 0.9 mg/dL [place] Erythrocyte distribution width (RBC) [Ratio] 14.1 % 11.8 - 14.4 % [place], [place] Ethanol [Mass/Vol] mg/dL <10 mg/dL [place] Ethanol percent <0.010 <0.010 % [place] FIO2 INFORMATION NOT PROVIDED [place] GFR >60 >60 mL/min [place] GFR Non- >60 >60 mL/min [place] GFR/1.73 sq M predicted among non-blacks MDRD (S/P/Bld) [Vol rate/Area] [place] Comment on above: Average GFR for 60-6 9 years old: 85 mL/min/1.73sq m Chronic Kidney Disease: <60 mL/min/1.73sq m Kidney failure: <15 mL/min/1.73sq m eGFR calculated using average adult body mass. Additional eGFR calculator available at: http://www.Cubresa.Jiemai.com/multiple_crcl_2012.htm GFR/1.73 sq M predicted among non-blacks MDRD (S/P/Bld) [Vol rate/Area] NOT REPORTED [place] Glucose [Mass/Vol] 186 mg/dL High 70 - 99 mg/dL [place] hCG Qual CANCELLED PER ED NEGATIVE [place], [place] HCO3, Venous 23.6 mmol/L Low 24 - 30 mmol/L [place] Hematocrit (Bld) [Volume fraction] 38.2 % 36.3 - 47.1 % [place] Hemoglobin (Bld) [Mass/Vol] 12.3 g/dL 11.9 - 15.1 g/dL [place] INR Coag (PPP) [Relative time] 1.0 {INR} [place] Comment on above: Therapeutic Range: Moderate Anticoagulant Intensity: INR = 2.0-3.0 High Anticoagulant Intensity: INR = 2.5-3.5 Interpretation and review of laboratory results Abnormal [place] MCH (RBC) [Entitic mass] 28.9 pg 25.2 - 33.5 pg [place] MCHC (RBC) [Mass/Vol] 32.2 g/dL 28.4 - 34.8 g/dL [place] MCV (RBC) [Entitic vol] 89.7 fL 82.6 - 102.9 fL [place] Methemoglobin NOT REPORTED 0 - 1.5 % [place] Mode NOT REPORTED [place] Negative Base Excess, Christo 0.8 mmol/L 0 - 2 mmol/L [place] NOTIFICATION NOT REPORTED [place] NOTIFICATION TIME NOT REPORTED [place] O2 Device/Flow/% NOT REPORTED [place] Oxygen saturation in Blood 98.6 % High 60 - 85 % [place] Oxyhemoglobin NOT REPORTED 95 - 98 % [place] pCO2, Christo 40.6 [place] pCO2, Christo, Temp Adj NOT REPORTED [place] Peep/Cpap NOT REPORTED [place] pH, Christo 7.383 [place] pH, Christo, Temp Adj NOT REPORTED [place] Platelet mean volume (Bld) [Entitic vol] 10.6 fL 8.1 - 13.5 fL [place] Platelets (Bld) [#/Vol] 268 10*3/uL [place] pO2, Christo 143.0 High [place] pO2, Christo, Temp Adj NOT REPORTED [place] Positive Base Excess, Christo NOT REPORTED 0 - 2 mmol/L [place] Potassium [Moles/Vol] 3.5 mmol/L Low 3.7 - 5.3 mmol/L [place] PSV NOT REPORTED [place] PT Coag (PPP) [Time] 10.5 s [place] Pt. Position NOT REPORTED [place] RBC (Bld) [#/Vol] 4.26 10*6/uL 3.95 - 5.11 m/uL [place] Sample Site NOT REPORTED [place] Set Rate NOT REPORTED [place] Sodium [Moles/Vol] 139 mmol/L 135 - 144 mmol/L [place] Text for Respiratory NOT REPORTED [place] Total Hb NOT REPORTED 12 - 16 g/dl [place] Total Rate NOT REPORTED [place] Urea nitrogen [Mass/Vol] 11 mg/dL 8 - 23 mg/dL [place] VT NOT REPORTED [place] WBC (Bld) [#/Vol] 0.0 10*3/uL 0.0 per 100 WBC [place] WBC (Bld) [#/Vol] 8.7 10*3/uL [place] PROGRESSon 03-24-2019 Protein mass conc HNO ID: [id number] Author: Kamilah Jean) Kyle Service: ? Author Type: Physician Dough Panner Type: Progress Notes Filed: 03/25/2019 10:38 AM Note Text: [facility] NOTE NAME: SHEMAR AVILA NO.: [id number] DATE OF SERVICE: 03/24/2019 Viviana Mota DATE OF : 1955 CHIEF COMPLAINT: Skilled followup visit for discharge. Also complains of a cyst on her back. SUBJECTIVE FINDINGS: The patient was seen in her room today at [facility]. She is tentatively scheduled for discharge [...] above. MEDICATIONS: Medications were reviewed in the shelter records. OARRS report was run today and [...] DICTATED BY: Kamilah Wright PA-C PG/Niharika JOB# [id number] cc:[facility] Normal [facility] PROGRESSon 03-22-2019 Protein mass conc HNO ID: [id number] Author: Kamilah Wright (Pa) Service: ? Author Type: Physician Dough Panner Type: Progress Notes Filed: 03/23/2019 11:37 AM Note Text: [facility] NOTE NAME: SHEMAR AVILA NO.: [id number] DATE OF SERVICE: 03/22/2019 [facility] DATE OF : 1955 CHIEF COMPLAINT: Skilled followup visit for stroke; today complaining of heartburn. SUBJECTIVE FINDINGS: The patient was seen in the therapy department at [facility]. She reports that overall she is [...] SYSTEMS: See above. MEDICATIONS: Reviewed in the shelter record. CODE STATUS: Full code. PHYSICAL EXAM: [...] DICTATED BY: Kamilah Wright PA-C PG/Niharika JOB# [id number] cc:[facility] Normal [facility] PROGRESSon 03-19-2019 Protein mass conc HNO ID: [id number] Author: Kamilah Wright (Pa) Service: ? Author Type: Physician Dough Panner Type: Progress Notes Filed: 03/22/2019 12:17 PM Note Text: [facility] NOTE NAME: SHEMAR AVILA NO.: [id number] DATE OF SERVICE: 03/19/2019 [facility] DATE OF : 1955 CHIEF COMPLAINT: Follow up for stroke and weakness. SUBJECTIVE FINDINGS: The patient was seen in her room at [facility]. She is complaining of a headache [...] SYSTEMS: See above. MEDICATIONS: Reviewed in the shelter record. CODE STATUS: Full code. PHYSICAL EXAM: [...] monitor closely. DICTATED BY: Kamilah Wright PA-C PG/Acrajat JOB# [id number] cc:Viviana Mota Normal [facility] PROGRESSon 03-17-2019 Protein mass conc HNO ID: [id number] Author: Kamilah Wright (Pa) Service: ? Author Type: Physician Dough Panner Type: Progress Notes Filed: 03/18/2019 10:28 AM Note Text: [facility] NOTE NAME: SHEMAR AVILA NO.: [id number] DATE OF SERVICE: 03/17/2019 [facility] DATE OF : 1955 CHIEF COMPLAINT: Follow up for stroke and weakness. SUBJECTIVE FINDINGS: The patient was seen in the therapy department at [facility]. She is doing very well with [...] SYSTEMS: See above. MEDICATIONS: Reviewed in the shelter record. CODE STATUS: Full code. PHYSICAL EXAM: [...] DICTATED BY: Kamilah Wright PA-C PG/Niharika JOB# [id number] cc:[facility] PROGRESSon 03-15-2019 Protein mass conc HNO ID: [id number] Author: Kyra Butler Service: ? Author Type: Physician Type: Progress Notes Filed: 03/18/2019 5:07 PM Note Text: [facility] NOTE NAME: YEYO AVILA NO.: [id number] DATE OF SERVICE: 03/15/2019 Viviana Mota DATE OF : 1955 New Patient History and Physical HISTORY OF PRESENT ILLNESS: The patient is a 63-year-old female was admitted to us from [facility] in [place] with the diagnoses of complicated headache syndrome [...] was negative. She was then transferred to [facility] where repeat CT scan along with [...] therapy. DICTATED BY: MD NELIDA Larose/Niharika JOB# [id number] cc:Viviana Mota Normal [facility] Vital Signs Date Time Vital Sign Value Performing Clinician Facility 05-13-2024 10:43-0400 Blood Pressure Location Dom SREEL [facility] 05-13-2024 10:43-0400 Diastolic blood pressure 75 mm[Hg] Dom BALBUENAL [facility] 05-13-2024 10:43-0400 Heart rate 64 /min Dom SREEL [facility] 05-13-2024 10:43-0400 Respiratory rate 16 /min Dom SREEL [facility] 05-13-2024 10:43-0400 Systolic blood pressure 117 mm[Hg] Dom BALBUENAL [facility] 07-13-2023 11:32-0400 Body temperature 97.88 [degF] [facility] 07-13-2023 11:32-0400 Diastolic blood pressure 85 mm[Hg] [facility] 07-13-2023 11:32-0400 Heart rate 76 /min [facility] 07-13-2023 11:32-0400 Respiratory rate 18 /min [facility] 07-13-2023 11:32-0400 SaO2% (BldA) [Mass fraction] 97 % [facility]-13[facility] 11:32-0400 Systolic blood pressure 147 mm[Hg[facility]-24-[facility]23 13:08-0400 Promise to Return Ronobir FELICIA [facility] 02-24-2023 12:00-0400 Hourly [address] Ronobir FELICIA [facility] 02-24-2023 12:00-0400 Promise to Return Ronobir FELICIA [facility] 02-24-2023 11:56-0400 Heart rate 62 /min Ronobir FELICIA [facility] 02-24-2023 11:56-0400 SaO2% (BldA) [Mass fraction] 97 % Ronobir FELICIA [facility] 02-24-2023 11:54-0400 Diastolic blood pressure 67 mm[Hg] Ronobir FELICIA [facility] 02-24-2023 11:54-0400 Mean blood pressure 88 mm[Hg] Ronobir FELICIA [facility] 02-24-2023 11:54-0400 Systolic blood pressure 130 mm[Hg] Ronobir FELICIA [facility] 02-24-2023 11:54-0400 Body temperature 97.88 [degF] Ronobir FELICIA [facility] 02-24-2023 11:11-0400 Hourly [address] Ronobir FELICIA [facility] 02-24-2023 11:11-0400 Promise to Return Ronobir FELICIA [facility] 02-24-2023 11:00-0400 Hourly [address] Ronobir FELICIA [facility] 02-24-2023 07:50-0400 SaO2% (BldA) [Mass fraction] 98 % Ronobir FELICIA [facility] 02-24-2023 07:43-0400 Heart rate 61 /min Ronobir FELICIA [facility] 02-24-2023 07:43-0400 SaO2% (BldA) [Mass fraction] 98 % Ronobir FELICIA [facility] 02-24-2023 07:41-0400 Body temperature 98.06 [degF] Ronobir FELICIA [facility] 02-24-2023 07:41-0400 Diastolic blood pressure 74 mm[Hg] Ronobir FELICIA [facility] 02-24-2023 07:41-0400 Mean blood pressure 92 mm[Hg] Ronobir FELICIA [facility] 02-24-2023 07:41-0400 Systolic blood pressure 128 mm[Hg] Ronobir FELICIA [facility] 02-24-2023 03:47-0400 Blood Pressure Location Ronobir FELICIA [facility] 02-24-2023 03:47-0400 Body temperature 97.52 [degF] Ronobir FELICIA [facility] 02-24-2023 03:47-0400 Diastolic blood pressure 70 mm[Hg] Ronobir FELICIA [facility] 02-24-2023 03:47-0400 Heart rate 57 /min Ronobir FELICIA [facility] 02-24-2023 03:47-0400 Mean blood pressure 87 mm[Hg] Ronobir FELICIA [facility] 02-24-2023 03:47-0400 Respiratory rate 17 /min Ronobir FELICIA [facility] 02-24-2023 03:47-0400 Systolic blood pressure 120 mm[Hg] Ronobir FELICIA [facility] 02-24-2023 03:06-0400 Mean blood pressure 77 mm[Hg] Ronobir FELICIA [facility] 02-24-2023 03:06-0400 Respiratory rate 16 /min Ronobir FELICIA [facility] 02-24-2023 02:49-0400 Respiratory rate 16 /min Ronobir FELICIA [facility] 02-24-2023 02:04-0400 Body temperature 96.8 [degF] Ronobir FELICIA [facility] 02-24-2023 02:04-0400 Mean blood pressure 68 mm[Hg] Ronobir FELICIA [facility] 02-24-2023 01:09-0400 Body temperature 96.62 [degF] Ronobir FELICIA [facility] 02-24-2023 00:21-0400 Heart rate 58 /min Ronobir FELICIA [facility] 02-24-2023 00:06-0400 gluc 139 mg/dL Ronobir FELICIA [facility] 02-24-2023 00:06-0400 Heart rate 61 /min Ronobir FELICIA [facility] 02-18-2022 13:50-0400 Body height 165.1 cm MD Shaikh Hernandez Work Phone: [facility] 02-18-2022 13:50-0400 Body weight 104.32 kg MD Shaikh Hernandez Work Phone: [facility] 09-01-2020 16:00-0400 BP Diastolic 85 mm[Hg] [facility] [place] 09-01-2020 16:00-0400 BP Systolic 158 mm[Hg] [facility] [place] 09-01-2020 14:12-0400 Pulse (Heart Rate) 72 /min [facility] 09-01-2020 13:30-0400 Respiratory rate NOT REPORTED [facility] 09-01-2020 12:27-0400 Body Temperature 97.7 [degF] [facility] 09-01-2020 12:27-0400 Pulse Oximetry 94 % [facility] [place] 09-01-2020 07:15-0400 Respiratory rate NOT REPORTED [facility] Comment on above: Performed By: #### ERTPF #### [employer] [address] [place] [address] [id number] Chute Puller: Dheeraj Garcia MD 09-01-2020 04:45-0400 Respiratory Rate 15 /min [facility] 08-31-2020 18:45-0400 BMI (Body Mass Index) 38.72 kg/m2 [facility] [place] 08-31-2020 18:45-0400 Body weight 105.55 kg [facility] [place] 08-31-2020 18:45-0400 Height 165.1 cm [place] 08-31-2020 00:34-0400 Respiratory rate NOT REPORTED [facility] Comment on above: Performed By: #### ERTPF #### [employer] [address] [place], [place] [id number] Chute Puller: Dheeraj Garcia MD 08-30-2020 23:08-0400 Respiratory rate NOT REPORTED Dank Nunes [facility] [place] Encounters Encounter Date Encounter Type Care Provider Facility Start: 08-26-2025 ambulatory Arturo DOLAN Facili ty:[facility] Start: 02-22-2025 End: 02-22-2025 ambulatory Arturo DOLAN Facility[facility] Start: 02-22-2025 End: 02-22-2025 Patient encounter procedure Arturo DOLAN [facility] Start: 02-21-2025 End: 02-21-2025 ambulatory Arturo DOLAN Facility:[facility] Start: 02-07-2025 End: 02-07-2025 ambulatory Arturo DOLAN Facility:[facility] Start: 06-23-2024 End: 06-23-2024 ambulatory Dom R SREEL Facility:CD:[id number] Start: 05-13-2024 End: 05-13-2024 ambulatory Dom R NILL Facility: [place] Start: 05-13-2024 End: 05-13-2024 Patient encounter procedure Dom R NILL [facility] [place] Start: 04-23-2024 ambulatory Dom NILL Facility:[facility] [place] Start: 01-14-2024 End: 01-14-2024 ambulatory [facility] Start: 12-30-2023 End: 12-30-2023 Patient encounter procedure Arturo DOLAN [facility] Start: 07-13-2023 End: 07-13-2023 Emergency department patient visit Yulyfede Steen Toni [facility] Start: 07-08-2023 End: 07-08-2023 ambulatory ALEXIA CLINE [facility] Start: 04-25-2023 End: 04-25-2023 ambulatory SHELMITH [facility] Start: 04-15-2023 End: 04-15-[address] ROBIN PONCE . Facility:[facility] Start: 04-01-2023 End: 04-01-[address] DANK JOHNSON Facility:[facility] Start: 04-01-2023 End: 04-02-[address] DOCTOR CASTELLON Facility:[facility] Start: 03-24-2023 End: 03-25-[address] DOCTOR CASTELLON Facility:[facility] Start: 03-10-2023 End: 03-10-2023 [facility] Start: 02-24-2023 End: 02-24-[address] [facility] Start: 02-14-2023 End: 02-14-[address] ROBIN PONCE . Facility:[facility] Start: 10-05-2022 End: 10-05-[address] ZELALEM STACY Facility:[facility] Start: 09-23-2022 ambulatory SHAIKH Enio Farley y:[facility] Start: 02-18-2022 End: 02-18-2022 Patient encounter procedure MD Shaikh Hernandez Work Phone: [facility] [place] Start: 02-18-2022 End: 02-18-2022 ambulatory Ese Tan Facility:[facility] Start: 03-21-2021 End: 03-22-2021 ambulatory REBEKA PARDO Facility:[facility] Start: 08-31-2020 End: 09-01-2020 Evaluation and management of inpatient HERMELINDO ADKINS [facility] Start: 08-30-2020 End: 09-01-2020 Evaluation and management of inpatient Dank Nunes [facility] Comment on above: Injury of head, init ial encounter (Primary Dx) Procedures Date Procedure Procedure Detail Performing Clinician Start: 06-23-2024 Colonoscopy Arturo DOLAN Start: 12-30-2023 Removal of ureteral stent Arturo DOLAN Start: 12-18-2023 Cystoscopic laser lithotripsy of ureteric calculus Arturo DOLAN Start: 11-13-2023 Cystoscopic anastomosis of ureter to bladder with insertion of stent into ureter Arturo DOLAN Start: 02-18-2022 MRI of abdomen with contrast MD Shaikh Diamond vang Work Phone: Start: 09-01-2020 DISCHARGE PATIENT HERMELINDO ADKINS Start: 09-01-2020 IP CONSULT TO HOME CARE NEEDS HERMELINDO Saravia Start: 09-01-2020 PT EVAL AND TREAT HERMELINDO ADKINS Start: 09-01-2020 INITIATE OXYGEN THERAPY PROTOCOL HERMELINDO Milton AHUMADA Start: 09-01-2020 Echo tthrc r-t 2d [...] ADKINS Start: 09-01-2020 Assay of ethanol Hermelindo Lam Phi Work Phone: Start: 09-01-2020 BASIC METABOLIC PANEL W/ REFLEX TO MG FOR LOW K Hermelindo Lam Phi Work Phone: Start: 09-01-2020 Blood count complete auto&auto difrntl wbc Hermelindo Lam Phi Work Phone: Start: 09-01-2020 Gonadotropin chorionic qualitative Hermelindo Lam Adkins Work Phone: Start: 09-01-2020 Hemoglobin glycosylated a1c Hermelindo saravia Work Phone: Start: 09-01-2020 Lipid panel [...] CHEMICAL VTE PROPHYLAXIS HERMELINDO ADKINS Start: 08-31-2020 CHEMICAL EDUCATOR EVAL AND TREAT HERMELINDO ADKINS Start: 08-31-2020 [...] Start: 08-31-2020 Ct thorax w/contrast material HERMELINDO PALACIOS Rani Start: 08-31-2020 Ct cervical spine w/o contrast [...] Start: 08-30-2020 Blood typing serologic abo Dank Diamond Joslyn lam Start: 08-30-2020 TRAUMA PANEL Dank Fields Manju Start: 10-27-2018 Esophagogastroduodenoscopy Dom NILL Start: 06-08-2015 Cystourethroscopy Dom NILL Start: 03-18-2014 Colonoscopy Dom NILL Start: 11-17-2011 Angioplasty of blood vessel Dom NILL Abdominal hysterectomy Ronob ir FELICIA Appendectomy Ronobir FELICIA Cardiac catheterization Jose ael NILL Closed fracture of p atella (disorder) Ronobir FELICIA Colonoscopy Ronobir FELICIA Colonoscopy Dom NILL Exploratory laparotomy Ronob jasbir DUARTE History of coronary artery bypass grafting H/O coronary artery bypass surgery MD Shaikh Hernandez Work Phone: Placement of stent i n coronary artery Dom MENDEZ Tonsillectomy Dom BALBUENATravis Vaginal hysterectomy Dom BALBUENATravis Plan of Treatment Date Care Activity Detail Author Start: 09-01-2021 Creatinine measurement Creatinine mo [place]itoring [place], [place] Start: 09-01-2021 HbA1c (Bld) [Mass fraction] A1C test (Diabetic or Prediabetic) [place] Start: 09-01-2021 Lipid panel Lipid screen [place], [place] Start: 09-01-2021 Potassium monitoring Potassium monit oring [place] Start: 08-31-2020 Annual Wellness Visi t (AWV) Annual Wellness Visit (AWV) [place] Start: 07-18-2020 Influenza vaccination Flu vaccine (# 1) [place], [place] Start: 2007 Screening for malign ant neoplasm of breast Breast cancer screen [place], [place] Start: 2007 Screening for malign ant neoplasm of colon Colon cancer screen colonoscopy [place], [place] Start: 2007 Shingles Vaccine (1 of 2) Shingles V accine (1 of 2) [place], [place] Start: 1978 Screening for malign ant neoplasm of cervix Cervical cancer screen [place], [place] Start: 1976 DTaP/Tdap/Td vaccine (1 - Tdap) DTaP/Tdap/Td vaccine (1 - Tdap) [place], [place] Start: 1975 Diabetic microalbumi betzy test Diabetic microalbuminuria test [place], [place] Start: 1972 HIV screening HIV screen [place], [place] Start: 1967 Diabetic foot examination Diabetic f oot exam [place], [place] Start: 1967 Diabetic retinal exam Diabetic retin al exam [place], [place] Start: 1957 Hepatitis C screening Hepatitis C sc reen [place] Oxygen therapy [[facility]ini [facility] Data Set] Initiate Oxygen Therapy Protocol Respiratory Care Routine Daily until discontinued starting 08/31/2020 [place] Comment on above: Daily until disconti nued starting 08/31/2020 End: 08-31-2020 Speech and language therapy regime [place] Comment on above: One Time for 1 Occur rences starting 08/31/2020 until 08/31/2020 Immunizations Immunization Date Immunization Notes Care Provider Fa romty 12-30-2023 influenza virus vaccine, unspecified formulation Dom NILL [facility] 08-17-2021 influenza virus vaccine, unspecified formulation Ronobir FELICIA [facility] 04-19-2021 SARS-CoV-2 (COVID-19 ) mRNA-1273 vaccine Dom NILL [facility] 02-15-2021 SARS-CoV-2 (COVID-19 ) Ad26 vaccine, recombinant Ronobir FELICIA [facility] 02-15-2021 SARS-CoV-2 (COVID-19 ) mRNA BNT-162b2 vax Dom NILL [facility] 01-25-2021 SARS-CoV-2 (COVID-19 ) mRNA BNT-162b2 vax Dom NILL [facility] 01-15-2021 SARS-CoV-2 (COVID-19 ) Ad26 vaccine, recombinant Ronobir FELICIA [facility] 09-19-2017 pneumococcal conjuga te vaccine, 13 valent Arturo DOLAN [facility] [place] Payers Date Payer Category Payer Medicare [id number] 2025 Medicare [id number] 2022 Self-pay [id number] 1957 Medicare [id number] 1.2.8 [id number] 1959 Self-pay [id number] 1957 Unknown [id number] 2.16.8 [id number] 1957 Unknown [id number] 2.16.8 [id number] 1957 Unknown [id number] 2.16.84 [id number] 1957 Unknown [id number] 2.16.84 0.1.672252.3.579.2.593 1957 Unknown [id number] 2.16.84 0.1.642746.3.579.2.593 1957 Unknown [id number] 2.16.84 0.1.908532.3.579.2.593 1957 Unknown [id number] 2.16.84 0.1.238391.3.579.2.593 1957 Unknown [id number] 2.16.84 0.1.121006.3.579.2.593 1957 Unknown [id number] 2.16.84 0.1.448157.3.579.2.593 1957 Unknown [id number] 2.16.8 40.1.904581.3.579.2.727 1957 Unknown [id number] 2.16.8 40.1.854463.3.579.2.727 1957 Unknown [id number] 2.16.8 40.1.746738.3.579.2.727 1957 Unknown [id number] 2.16.8 40.1.669488.3.579.2.727 1957 Unknown [id number] 2.16.8 40.1.793392.3.579.2.727 1957 Unknown [id number] 2.16.8 40.1.389860.3.579.2.727 Unknown [id number] 2.16.8 [id number] Social History Date Type Detail Facility Tobacco smoking stat [facility] Unknown if ever smoked [facility] [place] Sex Assigned At Not on file [place], [place] Start: 03-19-2021 Tobacco smoking stat [facility] Ex-smoker (finding) [facility] Start: 1955 Sex Assigned At Female [facility] Start: 02-24-2023 End: 02-21-2025 Tobacco smoking status Heavy tobacco smoker (finding) [facility] Comment on above: 1 pack a day Sex Assigned At Female [facility] Tobacco smoking status Never [facility] Wendy Comment on above: 1 pack a day Sexual Orientation [facility] Start: 08-22-2010 Sex Female (finding) [facility] Functional Status Date Assessment Result Facility 02-22-2025 Functional Status N/A [facility] 05-13-2024 Functional Status N/A [facility] [place] 12-30-2023 Functional Status N/A [facility] 07-13-2023 Functional Status N/A [facility] 02-24-2023 Functional Status No [facility] 02-24-2023 Functional Status [facility] Clinical Notes 02-24-2023 to 02-22-2025 Note Date & Type Note Facility 02-22-2025 Hospital Discharge instructions Patient Education 02/22/2025 14:55:38 [facility] - Cystoscopy with Urethral Dilation Discharge Instructions (CUSTOM) Cystoscopy with Urethral Dilation Voiding after the procedure: there may be some pain, urethral bleeding, burning, urgency, frequency and blood tinged urine [...] if you have a fever over 100 degrees Follow Up Care 02/21/2025 14:28:09 With:Arturo DOLAN Address: [address] [place] [id number] Business (1) When:08/24/2025 14:55:23 [facility] [facility] Note Patient Education Custom Cystoscopy with Urethral Dilation ??? Voiding after the procedure: there may be some pain, urethral bleeding, burning, urgency, frequency and blood tinged urine following the procedure. These symptoms usually resolve within 2-5 days. Drink the amount of fluid it takes to keep the urine pink to yellow or clear in color. Drinking enough water and fluids will help to ease any discomfort after your procedure. ??? If you are having problems that seem out of the ordinary, please call. ??? If unable to contact your physician and you feel it is an emergency, go to the nearest emergency room or call 911 ??? Diet ??? you may resume your normal diet. ??? Activity ??? you may resume your normal activities ??? Call if you have a fever over 100 degrees [facility] 02-21-2025 Note Patient Education Pulmonary Medicine Steps to Quit Smoking Smoking tobacco is the leading cause of preventable . It can affect almost every organ in the body. Smoking puts you and those around you at risk for developing many serious chronic diseases. Quitting smoking can be very challenging. Do not get discouraged if you are not successful the first time. Some people need to make many attempts to quit before they achieve long-term success. Do your best to stick to your quit plan, and talk with your health care provider if you have any questions or concerns. How do I get ready to quit? When you decide to quit smoking, create a plan to help you succeed. Before you quit: ??? Pick a date to quit. Set a date within the next 2 weeks to give you time to prepare. ??? Write down the reasons why you are quitting. Keep this list in places where you will see it often. ??? Tell your family, friends, and co-workers that you are quitting. Support from people you are close to can make quitting easier. ??? Talk with your health care provider about your options for quitting smoking. ??? Find out what treatment options are covered by your health insurance. ??? Identify people, places, things, and activities that make you want to smoke (triggers). Avoid them. What first steps can I take to quit smoking? Throw away all cigarettes at home, at work, and in your car. ??? Throw away smoking accessories, such as ashtrays and lighters. ??? Clean your car. Make sure to empty the ashtray. ??? Clean your home, including curtains and carpets. What strategies can I use to quit smoking? Talk with your health care provider about combining strategies, such as taking medicines while you are also receiving in-person counseling. Using these two strategies together makes you more likely to succeed in quitting than if you used either strategy on its own. If you are or , talk with your health care provider about finding counseling or other support strategies to quit smoking. Do not take medicine to help you quit smoking unless your health care provider tells you to. Quit right away ??? Quit smoking completely, instead of gradually reducing how much you smoke over a period of time. Stopping smoking right away may be more successful than gradually quitting. ??? Attend in-person counseling to help you build problem-solving skills. You are more likely to succeed in quitting if you attend counseling sessions regularly. Even short sessions of 10 minutes can be effective. Take medicine You may take medicines to help you quit smoking. Some medicines require a prescription. You can also purchase fkmw-rkn-kvururt medicines. Medicines may have nicotine in them to replace the nicotine in cigarettes. Medicines may: ??? Help to stop cravings. ??? Help to relieve withdrawal symptoms. Your health care provider may recommend: ??? Nicotine patches, gum, or lozenges. ??? Nicotine inhalers or sprays. ??? Non-nicotine medicine that you take by mouth. Find resources Find resources and support systems that can help you quit smoking and remain smoke-free after you quit. These resources are most helpful when you use them often. They include: ??? Online chats with a counselor. ??? Telephone quitlines. ??? Printed self-help materials. ??? Support groups or group counseling. ??? Text messaging programs. ??? Mobile phone apps or applications. Use apps that can help you stick to your quit plan by providing reminders, tips, and encouragement. Examples of free services include Quit Guide from the CDC and smokefree.gov What can I do to make it easier to quit? Reach out to your family and friends for support and encouragement. Call telephone quitlines, such as 7-454-ABJA-NOW, reach out to support groups, or work with a counselor for support. ??? Ask people who smoke to avoid smoking around you. ??? Avoid places that trigger you to smoke, such as bars, parties, or smoke-break areas at work. ??? Spend time with people who do not smoke. ??? Lessen the stress in your life. Stress can be a smoking trigger for some people. To lessen stress, try: ? Exercising regularly. ? Doing deep-breathing exercises. ? Doing yoga. ? Meditating. What benefits will I see if I quit smoking? Over time, you should start to see positive results, such as: ??? Improved sense of smell and taste. ??? Decreased coughing and sore throat. ??? Slower heart rate. ??? Lower blood pressure. ??? Clearer and healthier skin. ??? The ability to breathe more easily. ??? Fewer sick days. Summary ??? Quitting smoking can be very challenging. Do not get discouraged if you are not successful the first time. Some people need to make many attempts to quit before they achieve long-term success. ??? When you decide to quit smoking, create a plan to help you succeed. ??? Quit smoking right away, not s (more content not included)... [facility] 05-13-2024 Note General Surgery Offi ce/Clinic Note Chief Complaint consultation for rectal bleeding HPI Staff 68 year old female presents on consultation from Dr. Ponce for rectal bleeding. Presented to [facility] ED 04/21 with complaint of 6 day [...] referred for rectal bleeding; patient seen in [facility] ED 04/21/24 for 6 day h/o [...] 3. Antiplatelet or antithrombotic long-term use (Z79.02: [facility] (current) use of antithrombotics/antiplatelets) hold Plavix 5 [...] these. Follow-up No (more content not included)... [facility] Comment on above: Result Comment: Elec mehranally Signed By: ANDREA PRADO, Dom Funes\Date and Time Signed: 05/13/24 11:47 EDT 01-14-2024 Note [facility] Cardiology Clinic Note Chief Complaint: Patient [...] Iodinated contrast media, Aspirin, Atorvastatin, Cat/feline products, [place], Topiramate, Blue dye, Iodine, and Lisinopril Medications [...] 2010 hemishield graft (more content not included)... [facility] 12-30-2023 Hospital Discharge instructions Patient Education 12/30/2023 [...] With:Arturo DOLAN Address: [facility] [address] [place] [address]- Business (1) When:03/29/2024 11:56:00 Comments:With a stone metabolic workup [facility] 12-03-2023 Note RCRI=3 points Class IV Risk 15.0 % 30-day risk of , [place], or cardiac arrest PMH- CAD s/p Stent, [...] you Alexia Cline NP Division of Cardiology, [facility]- [phone] Pager- [phone] Email- [email or web address] 07-13-2023 Hospital Discharge instructions Patient Education [...] to strengthen the arm. General instructions Take apha-sxy-pqtkzat and prescription medicines only as told by [...] provider. Document Revised: 07/19/2022 Document Reviewed: 07/19/2022 Oh My Glasses Patient Education 2022 [employer]. 07/13/2023 12:19:06 Muscle Strain Muscle Strain A [...] is not too tight. General instructions Take whgo-rgd-jaqsmxf and prescription medicines only as told by [...] provider. Document Revised: 01/21/2022 Document Reviewed: 01/21/2022 Oh [employer] Glass[employer] Patient Education 2022 [employer]. Follow Up Care 07/13/2023 11:23:52 With:Robin Ponce Address: [address] [place] [phone]- Business (1) When:07/16/2023 12:02:34 [facility] 07-13-2023 Evaluation + Plan note Extrac sherita from: Title:ED Note Author:Mathew Montana PA-C te:07/13/23 Shoulder pain (M25.519: Pain in unspecified shoulder) Ordered: acetaminophen-oxycodone, 1 tab(s), Oral, q6hr as needed for pain for 3 day(s), 15 tab(s), Refill(s) 0, [id number], 165, cm, 07/13/23 11:34:00 EDT, Height/Length Dosing, 95.5, kg, 07/13/23 11:34:00 EDT, Weight Dosing [facility]08-22-2023 NoteWill increase imdur to 60 mg and d/w pt that if migraines worsen she can reduce back to 30 mg Recent stress [facility] Note Recommended [facility] to [facility] [place] [facility] [place] [facility] NoteCoronary artery disease is stable Continue GDMT- Coreg, simvastatin, imdur continue risk factor modifications- heart healthy diet, regular exercise as tolerated and continue all medications.[facility] 07-08-2023 NoteNYHC II- currently LVEF normal 60%- recovered Mild MR and TV regurg Normal rt sided pressure Continue current med regime. Coreg, irbesartan, simvastatin, [facility] 07-08-2023 NoteHypertension is well controlled, [facility]23 NoteUTP CARDIOLOGY PROGRESS NOTE HPI: Yeyo [...] States pain in groin Cat/Feline Products Hives [place] Hives Topiramate Hives and Other Blue Dye [...] mononitrate ER (I (more content not included)... [facility]06-09-2023 NotePatient here for follow up Holter monitor and stress test. Also had labs a few weeks ago. Review of Systems Cardiovascular: Positive for chest pain, dyspnea on exertion and near-syncope (with bending over). Neurological: Positive for dizziness and light-headedness. All other systems reviewed and are negative.[facility] 04-25-2023 NoteCardiology Clinic Note Subjective [...] Uterine leiomyoma No family history on file. LANA Avila is a 67 y.o. year old [...] States pain in groin Cat/Feline Products Hives [place] Hives Topiramate Hives and Other Blue Dye [...] mg sublingual tablet, Dis (more content not included)...[facility] 03-10-2023 NoteCardiology Clinic Note Subjective [...] States pain in groin Cat/Feline Products Hives [place] Hives Topiramate Hives and Other Blue Dye [...] systolic function. No significant (more content not included)...[facility] 02-24-2023 Evaluation + Plan noteExtracted from: [...] PRN With When Contact Information Robin Ponce [phone] [facility] [address] [place] [address]- Business (1) Additional Instructions: Office is closed for lunch between Noon and 1 p.m. Please contact office for follow up appointment. Thank you! SHAIKH MARY Within 5 to 7 days [address] [place] [phone] Business (1) Additional Instructions: Not a patient. Syncope, Wnpd-ci-Mxwn Extracted from: Title:APSO Note Author:PERLA PRADO, Mbcatalinafo Date: 67-year-old obese female with history of [...] heart monitor. Check orthostatic vital signs. Ordered: [facility] Care/Day Moderate 35 Minutes 49356 2. RAMA (acute kidney injury) (N17.9: Acute kidney failure, unspecified) Acute kidney injury secondary to ATN from dehydration and antihypertensives. Resolved. Treated with IV fluid. Ordered: [facility] Care/Day Moderate 35 Minutes [id number] 3. Hypokalemia (E87.6: Hypokalemia) Secondary to poor oral intake. Potassium level improving to 3.4. We will give patient additional potassium chloride. Ordered: potassium chloride, 40 mEq = 2 tab(s), Tab-ER, Oral, Once, Stop date 02/24/23 10:00:00 EDT, Routine, Start date 02/24/23 10:00:00 EDT, 02/24/23 9:46:00 EDT [facility] Care/Day Moderate 35 Minutes 52813 4. Diabetes mellitus (E11.9: Type 2 diabetes mellitus without complications) Continue sliding scale insulin. Ordered: [facility] Care/Day Moderate 35 Minutes 12454 5. High cholesterol (E78.00: Pure hypercholesterolemia, unspecified) On Lipitor at home. Ordered: [facility] Care/Day Moderate 35 Minutes 52523 6. Hypertension (I10: Essential (primary) hypertension) Blood pressure on the low side of normal. 7. CAD (coronary artery disease) (I25.10: Atherosclerotic heart disease of [place] coronary artery without angina pectoris) Continue on aspirin, Plavix. 8. Aortic aneurysm (I71.9: Aortic aneurysm of unspecified site, without rupture) Status post surgery. 9. Obese (E66.9: Obesity, unspecified) Recommend therapeutic lifestyle modification changes. 10. On deep vein thrombosis (DVT) prophylaxis (Z79.899: Other computer terminal operator (current) drug therapy) Heparin. Disposition: Home soon pending physical therapy evaluation. I discussed the diagnosis and plan of care with the patient at the bedside. Moderate level of MDM based on addressing above issues. This documentation was transcribed using voice recognition software. Several attempts were made to ensure accuracy. However inadvertent computerized screen operator errors may be present. Leann Gunter. Hospitalist. [...] deep vein thrombosis (DVT) prophylaxis (Z79.899: Other [facility] (current) drug therapy) SCD, heparin Orders: acetaminophen, [...] XR Spine Lumbosacral [address] [facility]04-10-2023 Hospital Discharge instructions Patient Education 02/24/2023 11:49:54 Syncope, Rbeh-nz-Qqjj Syncope Syncope is when you pass out [...] pee (urine) pale yellow. General instructions Take vsyl-tay-pjeasmu and prescription medicines only as told by [...] 04/21/2009 Document Revised: 12/16/2018 Document Reviewed: 12/16/2018 Oh My Glasses Patient Education 2020 [employer]. Follow Up Care 02/24/2023 00:01:37 With:Robin Ponce Address: [address] [place] [phone] Business (1) When: Unknown Comments:Office is closed for lunch between Noon and 1 p.m. Please contact office for follow up appointment.Thank you! With:SHAIKH MARY Address: [address] [place] [phone] Business (1) When:5 to 7 days Comments:Not a patient. [facility] Future Appointments Appointment Date:08/26/2025 09:30:00 AM Scheduled Provider:Arturo DOLAN MD Location:[facility] Appointment Type:URO Office Visit [facility] Evaluation noteNo assessment information available [facility] Work Phone: Hospital course Narrative No data available for this section [facility] No data available for this section [facility] General Surgery [place] Progress note No data available for this section [facility] Summary Purpose Family History No Family History [...] Assisted Dressing Independent Toileting Assisted Feeding Independent Acid Etch Operator Independent Med Delivery whole Wound Care Documentation [...] Readmission: 9 Discharging to Facility/ Agency Name: [facility] FAX [address] [facility] [address] Address: Phone: Fax: Dialysis Facility (if applicable) Name: Address: Dialysis Schedule: Phone: Fax: Brush Filler Hand/Squeegeer And Former signature: EDT PHYSICIAN SECTION Prognosis: Good Condition at Discharge: Stable Rehab Potential (if transferring to Rehab): {Prognosis:[id number]} Recommended Labs or Other Treatments After Discharge: [...] called to the trauma nurse line at [phone] and please leave a message. Trauma is a life-threatening condition. Your doctor will want to closely monitor you. Be sure to goto all of your appointments. * Attachments The following attachments cannot be sent through Care Everywhere. * Fall Prevention (Maltese) * Falls: Get Up Safely Instruction (Maltese) * Vasovagal Syncope (Maltese) documented in this encounter History of Present [...] 4 wheeled walker, Cane, Quad cane, Crutches, Educational Programming Director, Sock aid(pt reported no use of DME at baseline) ADL Assistance: Independent Homemaking Assistance: Independent Homemaking Responsibilities: Yes Meal Prep Responsibility: Primary Laundry Responsibility: Primary Cleaning Responsibility: Primary Ambulation Assistance: Independent Transfer Assistance: Independent 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 Mode of Transportation: Car 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 pt with no LOB ADL [...] L LE. pt unable to identify when process description writer was touching L UE (on elbow [...] AM-PAC Inpatient Daily Activity Raw Score: 16 (09/01/20 [...] activity in order to increase coordination and black puller strength to L hand Short term goal 6: dem SBA during functional transfers/functional mobility with LRD, as needed Therapy Time Individual Concurrent Group Co-treatment Time In 1316 Time Out 1404 Minutes 48 Variance: 40 Debi Marques OTR/L * Taya Bergeron, CHEMICAL EDUCATOR - 09/01/2020 11:39 AM EDT Speech Language Pathology Facility/Department: [address] ORTHO/MED SURG Initial Speech/Language/Cognitive Assessment NAME: [...] the bathtub. +LOC, on Plavix. Taken to [facility] where a stroke alert was initiated. CT head at 6pm today at [facility] did not show intracranial bleed. Transferred to [facility] for trauma and neurology work-up. Upon arrival, Pt without neurological deficit, GCS 15, c/o FLORENTINO. Pt deemed hemodynamically stable and was sent to CT. Pain: Pain Assessment Pain Assessment: Faces Pain Level: 0 Assessment: Pt presents with mild-moderate cognitive deficits characterized by difficulty with immediate and short-term memory, verbal reasoning skills, and word associations. Pt. AFOGNAK, which may haveaffected results of evaluation. Multiple repetitions provided throughout evaluation. Pt. Presents with no dysarthria, no O/M deficits at this time. ST to follow up and provide treatment to address noted deficits. Education provided. Recommendations: Requires CHEMICAL EDUCATOR Intervention: Yes Duration/Frequency of Treatment: 3-5X/week D/C [...] 1126 Minutes 12 Completed by: Debi Andrade Rfid Developer Clinician Cosigned By: Taya Bergeron M.A.CCC/CHEMICAL EDUCATOR 09/01/2020 11:40 AM * Caleb Jefferson MD - 09/01/2020 10:26 AM EDT PROGRESS NOTE PATIENT NAME: Yeyo Avila DATE: 09/01/2020 SURGEON: Phi PRIMARY CARE PHYSICIAN: Robin Ponce MD HD: [...] Out: 1000 [Urine:1000] LAB: CBC: Recent Labs 08/30/20223309/01/2051409/01/20528 WBC 8.7 DUPLICATE ORDER 9.4 HGB 12.3 DUPLICATE ORDER 12.7 HCT 38.2 DUPLICATE ORDER 40.7 MCV 89.7 DUPLICATE ORDER 90.0 PLT 268 DUPLICATE ORDER 251 BMP: Recent Labs 08/30/20223309/01/2051409/01/20528 NA 139 DUPLICATE ORDER 140 K 3.5* [...] MD 09/01/2020 4:00 PM * Nader Petit, FOAM CHARGER - 09/01/2020 10:02 AM EDT Physical Therapy Facility/Department: [address] ORTHO/MED SURG Daily Treatment Note NAME: [...] Safe use of RW Barriers to Learning: AFOGNAK REQUIRES PT FOLLOW UP: Yes Activity Tolerance [...] 44 Timed Code Treatment Minutes: 40 Minutes FOAM CHARGER returned to pt's room to have her attempt stair management, to return home safely Individual Individual Time In 1140 Time Out 1205 Minutes 25 Timed Code Treatment Minutes: 9 Minutes (a doctor interrupted PT, to assess the pt) Nader Petit, FOAM CHARGER * Debi Marques OT - 09/01/2020 8:34 [...] 08/31/2020 3:09 PM EDT Physical Therapy Facility/Department: [facility] ED Initial Assessment NAME: Yeyo Avila [...] Ambulation Assistance: Independent Transfer Assistance: Independent 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 Mode of Transportation: Car Occupation: Retired [...] Mobility Inpatient CMS G-Code Modifier : CL (10/15/20 1510) Goals Short term goals Time Frame for [...] section and content) DATE CREATED AUTHOR 04/06/2019 [facility] DATE CREATED AUTHOR AUTHOR'S ORGANIZ ATION 09/12/2020 [facility] DATE CREATED AUTHOR AUTHOR'S ORGANIZ ATION 03/28/2021 [facility] DATE CREATED AUTHOR AUTHOR'S ORGANIZ ATION 04/25/2023 [facility] DATE CREATED AUTHOR AUTHOR'S ORGANIZ ATION 02/16/2024 [facility] DATE CREATED AUTHOR AUTHOR'S ORGANIZ ATION 07/04/2024 [facility] DATE CREATED AUTHOR AUTHOR'S ORGANIZ ATION 02/26/2025 [facility] Reason for Visit (unrecogniz ed section and content) Reason Comments Fall Trauma Status Reason Specialty Diagnoses / Procedures Referre d By Contact Referred To Contact Diagnoses Syncope and collapse Procedures Syncope and collapse Hermelindo Adkins MD [facility] [address], [address] [place] [address] [facility] Care Teams (unrecognized sec tion and [...] BE BASED ON THE PRIMARY CLINICAL RECORDS. [facility] [employer] [facility]. provides no warranty or guarantee of the accuracy or completeness of information in this document.
== END 2025-03-04 08:24 | disposition home or self-care (01) ==
LOC: CT 08:23
PROVIDERS: PCP Family Medicine; Visit Provider Internal Medicine Interventional Cardiology
DX: Z98.890 Other specified postprocedural states (principal); Z86.79 Personal history of other diseases of the circulatory system
CPT/HCPCS: 71275; Q9967

== ENCOUNTER 2025-03-13 17:58 | Emergency (ER) | payer OTHER, SELFPAY ==
[2025-03-13 18:03] VITALS: BP 175/69; PULSE 79; TEMP 36.6; O2SAT 97; BMI 36.8
--- NOTE | 2025-03-13 18:15 | ED_ITS ---
HPI HPI - Extremity Injury (Lower) General Chief Complaint: Extremity Injury, Lower Stated Complaint: hip pain Time Seen by Provider: 03/13/25 18:01 Source: patient and friend Mode of arrival: walk-in Limitations: no limitations History of Present Illness HPI Narrative: Patient is a 69-year-old female presents to the ER with concerns of left lateral hip pain. Patient states she awoke with symptoms on Friday cannot recall any focal injury. Pain to the left buttock region and left lateral hip some radiation on the left lateral thigh. She denies any numbness or tingling. She denies any abdominal pain. She denies any dysuria or vaginal discharge. She denies any fevers or chills. Patient notes it is tender to touch and she has difficulty with steps. Last night she was walking up her steps and fell onto her left hip. She does take Plavix but denies any head or neck injury. Patient notes increased pain today since the fall localized to the left buttock region. She denies any bowel or bladder incontinence or saddle paresthesias. She did not take anything for pain prior to arrival. She has multiple drug allergies. MD complaint: Reports hip injury Injury: Left: hip Type of Injury: Reports blunt Place: Reports home Severity: moderate Relieving factors: Reports nothing Exacerbating factors: Reports nothing Context: Reports direct blow (Fell on left hip going up steps.) Associated symptoms: Denies snap/pop sensation or swelling Other symptoms: Reports none Treatments prior to arrival: Denies cold therapy Related Data Home Medications ?Medication ?Instructions ?Recorded ?Confirmed carvedilol 25 mg tablet 25 mg PO DAILY 06/15/23 06/23/24 clopidogrel 75 mg tablet 75 mg PO DAILY 06/15/23 06/23/24 duloxetine 60 mg capsule,delayed 60 mg PO DAILY 06/15/23 06/23/24 release glimepiride 4 mg tablet 4 mg PO DAILY 06/15/23 06/23/24 insulin NPH-regular 70-30 U-100 See Protocol subcut 06/15/23 insulin 100 unit/mL subcutaneous pen (Novolin 70-30 FlexPen U-100 Insulin) irbesartan 150 mg tablet 150 mg PO DAILY 06/15/23 06/23/24 pantoprazole 40 mg tablet,delayed 40 mg PO DAILY 06/15/23 06/23/24 release simvastatin 40 mg tablet 40 mg PO DAILY 06/15/23 06/23/24 tizanidine 4 mg tablet 4 mg PO Q8H PRN muscle spasticity 06/15/23 06/23/24 bupropion HCl 150 mg 24 hr tablet, 150 mg PO DAILY 06/16/23 06/23/24 extended release diphenhydramine-phenylephrine 25 1 tab PO TID 06/16/23 06/23/24 mg-10 mg tablet (Allergy and Sinus Relief) isosorbide mononitrate 60 mg 30 mg PO BID 06/16/23 06/23/24 tablet,extended release 24 hr metoclopramide HCl 10 mg tablet 10 mg PO Q8H 06/16/23 06/23/24 aspirin 81 mg capsule 81 mg PO DAILY 04/21/24 06/23/24 Allergies Allergy/AdvReac Type Severity Reaction Status Date / Time lisinopril Allergy Severe Swelling Verified 04/21/24 20:32 of Lip/Tongue/Throat acetaminophen (From Excedrin Allergy Intermediate Hives Verified 04/21/24 20:32 Migraine) aspirin (From Excedrin Allergy Intermediate Hives Verified 04/21/24 20:32 Migraine) caffeine (From Excedrin Allergy Intermediate Hives Verified 04/21/24 20:32 Migraine) Iodinated Contrast Media Allergy Mild Hives Verified 04/21/24 20:32 atorvastatin (From Lipitor) Allergy Unknown Muscle Pain Verified 06/10/24 13:04 strawberry Allergy Muscle Pain Verified 06/10/24 13:04 sumatriptan (From Imitrex) AdvReac Intermediate Nausea Verified 04/21/24 20:32 topiramate (From Topamax) AdvReac Intermediate Nausea Verified 04/21/24 20:32 Opioid HPI Opioid Management Most Recent Pain and Opioid Data: Last Pain Scale 8 03/13/25 18:25 03/13/25 Last MAR Pain Assessment 03/13/25 18:25 Review of Systems ROS Constitutional Denies: fever, chills or change in weight Eyes Denies: change in vision or blurry vision Ears, nose, mouth, and throat Denies: throat pain, neck pain or throat swelling Cardiovascular Denies: chest pain, palpitations or edema Respiratory Denies: shortness of breath or cough Gastrointestinal Denies: abdominal pain or nausea Genitourinary Denies: painful urination Musculoskeletal Reports: extremity pain (Left lateral hip/buttock) Integumentary/Breast Denies: rash or itching Neurological Denies: headache or numbness in extremities Psychiatric Denies: anxiety Endocrine Denies: excessive urination [facility] Medical History (Updated 03/13/25 @ 19:10 by REYNA Rich) Diverticulosis ?K57.90 - Diverticulosis of intestine, part unspecified, without perforation or abscess without bleeding (ICD-10) Hemiparesis, right ?G81.91 - Hemiplegia, unspecified affecting right dominant side (ICD-10) Renal cyst ?N28.1 - Cyst of kidney, acquired (ICD-10) LVH (left ventricular hypertrophy) ?I51.7 - Cardiomegaly (ICD-10) Rectal bleeding ?K62.5 - Hemorrhage of anus and rectum (ICD-10) Hemorrhoids ?K64.9 - Unspecified hemorrhoids (ICD-10) Calculus, renal ?N20.0 - Calculus of kidney (ICD-10) Hypothyroidism ?E03.9 - Hypothyroidism, unspecified (ICD-10) Hypertension ?I10 - Essential (primary) hypertension (ICD-10) Myocardial infarct ?I21.9 - Acute myocardial infarction, unspecified (ICD-10) COPD (chronic obstructive pulmonary disease) ?J44.9 - Chronic obstructive pulmonary disease, unspecified (ICD-10) Bradycardia ?R00.1 - Bradycardia, unspecified (ICD-10) Asthma ?J45.909 - Unspecified asthma, uncomplicated (ICD-10) skilled nursing current use of anticoagulant ?Z79.01 - skilled nursing (current) use of anticoagulants (ICD-10) Incontinence ?R32 - Unspecified urinary incontinence (ICD-10) Dysuria ?R30.0 - Dysuria (ICD-10) Atypical chest pain ?R07.89 - Other chest pain (ICD-10) Hemiplegic migraine ?G43.409 - Hemiplegic migraine, not intractable, without status migrainosus (ICD-10) Coronary atherosclerosis ?I25.10 - Atherosclerotic heart disease of [place] coronary artery without angina pectoris (ICD-10) Systolic heart failure ?I50.20 - Unspecified systolic (congestive) heart failure (ICD-10) 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 ?Z87.74 - Personal history of (corrected) congenital malformations of heart and circulatory system (ICD-10) Anemia ?D64.9 - Anemia, unspecified (ICD-10) Depression ?F32.A - Depression, unspecified (ICD-10) Right sided weakness ?R53.1 - Weakness (ICD-10) GERD (gastroesophageal reflux disease) ?K21.9 - Gastro-esophageal reflux disease without esophagitis (ICD-10) Dyspnea on exertion ?R06.09 - Other forms of dyspnea (ICD-10) Angina at rest ?I20.89 - Other forms of angina pectoris (ICD-10) Arthritis ?M19.90 - Unspecified osteoarthritis, unspecified site (ICD-10) Fibromyalgia ?M79.7 - Fibromyalgia (ICD-10) Hyperlipidemia ?E78.5 - Hyperlipidemia, unspecified (ICD-10) Bladder cancer ?C67.9 - Malignant neoplasm of bladder, unspecified (ICD-10) Hearing loss ?H91.90 - Unspecified hearing loss, unspecified ear (ICD-10) CVA (cerebral vascular accident) ?I63.9 - Cerebral infarction, unspecified (ICD-10) Diabetes mellitus ?E11.9 - Type 2 diabetes mellitus without complications (ICD-10) Aorta aneurysm ?I71.9 - Aortic aneurysm of unspecified site, without rupture (ICD-10) Achilles rupture ?S86.019A - Strain of unspecified Achilles tendon, initial encounter (ICD-10) Coronary stent occlusion (~2011) ?T82.897A - Other specified complication of cardiac prosthetic devices, implants and grafts, initial encounter (ICD-10) Chest pain ?R07.9 - Chest pain, unspecified (ICD-10) Surgical History (Updated 12/11/23 @ 12:08 by Freda Monteiro NP) Status post cystoscopy with ureteral stent placement ?Z96.0 - Presence of urogenital implants (ICD-10) H/O cystoscopy ?Z98.890 - Other specified postprocedural states (ICD-10) H/O cystoscopy (11/13/23) ?Z98.890 - Other specified postprocedural states (ICD-10) History of tonsillectomy ?Z90.89 - Acquired absence of other organs (ICD-10) History of laparoscopy ?Z98.890 - Other specified postprocedural states (ICD-10) History of colonoscopy ?Z98.890 - Other specified postprocedural states (ICD-10) H/O knee surgery ?Z98.890 - Other specified postprocedural states (ICD-10) H/O knee surgery ?Z98.890 - Other specified postprocedural states (ICD-10) History of appendectomy ?Z90.49 - Acquired absence of other specified parts of digestive tract (ICD- 10) History of hysterectomy ?Z90.710 - Acquired absence of both cervix and uterus (ICD-10) History of cardiac catheterization ?Z98.890 - Other specified postprocedural states (ICD-10) History of heart artery stent ?Z95.5 - Presence of coronary angioplasty implant and graft (ICD-10) History of bladder surgery ?Z98.890 - Other specified postprocedural states (ICD-10) Family History (Updated 11/12/23 @ 14:55 by Freda Monteiro NP) Other Family history of diabetes mellitus Family history of hypertension Family history of lung cancer Family history of myocardial infarction Social History (Updated 06/14/24 @ 14:35 by Shell Gray) Within the past year, how often did you have a drink containing alcohol: never Score interpretation: A score less than 3 is consistent with normal alcohol consumption. Smoking status: Heavy tobacco smoker What tobacco products do you use: cigarettes Packs per day: 1 Years smoked: 54 Smoking pack-years: 54.00 Non-prescribed substance use: denies use Previous occupational history: RETIRED Highest level of school completed/degree received: high school graduate Little interest or pleasure in doing things: not at all Feeling down, depressed, or hopeless: not at all Feel stressed/tense/nervous/anxious/difficulty sleeping: only a little Life stressors: recent of family or friend Life stressor details: Husbands Due to disability, difficulty making decisions: No Exam Narrative Exam Narrative: Nurses notes and vital signs reviewed and patient is not hypoxic. General: The patient appears well and in no apparent distress. Patient is resting comfortably on cart. Skin: Warm, dry, no pallor noted. No evidence of zoster like rash or bruising with direct visualization of the left lower back and buttock region. Patient's daughter present at bedside. Head: Normocephalic, atraumatic Neck: Supple, trachea mid-line, denies any bony neck tenderness, full painless range of motion of the neck appreciated Eye: Pupils are equal, round and reactive to light, EOMI Ears, Nose, Mouth, and Throat: TM are clear, normal light reflex, oral mucosa is moist, no posterior oropharynx erythema or hypertrophy, uvula is mid-line Cardiovascular: Regular Rate and Rhythm Respiratory: Patient is in no distress, no accessory muscle use, lungs are clear to auscultation, no wheezing, rales or rhonchi. Chest Wall: no tenderness Back: non-tender, no CVA tenderness, no midline bony tenderness of the lumbar spine no paravertebral tenderness. There is mild pain with palpation of the left SI region. Musculoskeletal: Painless passive range of motion of the bilateral hips she notes pain on the left lateral hip with terminal internal and external rotation. She is exquisitely tender over the greater trochanteric hip bursa and posterior gluteus/piriformis region. Right hip is nontender. Straight leg raise produces some left buttock pain but denies radicular symptoms she has 5 out of 5 strength quad hamstring and ankle with no evidence of palsy or deficit. Hip flexion intact 5/5+ Lenore's test mild discomfort with Lub[place]'s., Neg FADIR GI: Normal bowel sounds, no tenderness to palpation, no masses appreciated. No rebound, guarding, or rigidity noted. Abdomen non surgical. Neurological: A&O x4 Psychiatric: Cooperative Constitutional Vital Signs, click to edit/add: Last Vital Signs Temp 98 F 03/13/25 18:03 Pulse 79 03/13/25 18:03 Resp 16 03/13/25 18:03 BP 175/69 H 03/13/25 18:03 Pulse Ox 97 03/13/25 18:03 O2 Del Method Room Air 03/13/25 18:03 Course Vital Signs Vital signs: Vital Signs Temperature 98 F 03/13/25 18:03 Pulse Rate 79 03/13/25 18:03 Respiratory Rate 16 03/13/25 18:03 Blood Pressure 175/69 H 03/13/25 18:03 Pulse Oximetry 97 03/13/25 18:03 Oxygen Delivery Method Room Air 03/13/25 18:03 Temperature 98 F 03/13/25 18:03 Pulse Rate 79 03/13/25 18:03 Respiratory Rate 16 03/13/25 18:03 Blood Pressure 175/69 H 03/13/25 18:03 Pulse Oximetry 97 03/13/25 18:03 Oxygen Delivery Method Room Air 03/13/25 18:03 MDM - Extremity Injury (Lower) MDM Narrative Medical decision making narrative: Presents with pain notably reproducible with piriformis stretching tenderness to the left hip greater trochanteric hip bursa. Symptoms present with ambulation and worse after prolonged sitting she denies any radicular symptoms in the lower leg. Pertinent history of insulin-dependent diabetes patient does not take NSAIDs secondary to Plavix use but she has had Motrin in the past. She has multiple allergies listed including Tylenol and aspirin and caffeine. She was given an ice pack on arrival we discussed her visual exam without evidence of bruising at this time. No evidence of rash. She is agreeable to oral muscle relaxant and IM Toradol injection. She has a walker at home and is encouraged to use this pending follow-up with orthopedics for reevaluation. Patient consenting to x-rays today. She did not describe any radicular lumbar symptoms. Patient aware she may benefit from intrabursal injection with orthopedics or physical therapy referral. Importance of follow-up was at bedside to see either her PCP or orthopedics. Patient reevaluated she reports little to no relief with IM Toradol injection and muscle relaxant. She will be given 1 tablet of Percocet. (Thorough discussion regarding her Tylenol allergy. Tylenol don't do shit. Pt states she does not get hives from it, but if she did she doesn''t care if it helps the pain, could take Benadryl, she denies any breathing or anaphylactic symptoms. . she is able to stand and ambulate here in the ER. We encouraged her to use her walker at home to offload the left hip. She has no signs or symptoms of an infection clinically.. Patient would like to expedite orthopedic follow-up and is given appointment tomorrow at 1015 for which she says she will be able to make to be evaluated for further treatment. The patient is to followup with primary care physician in next 2-3 days or to return to the emergency department should any of the signs or symptoms worsen or new symptoms develop. Patient had questions answered. The patient agrees with the following Diagnosis and Treatment plan and the patient will be discharged home. Imaging Data left hip and pelvis: Attestation: I personally reviewed and interpreted this imaging study as follows: My impression: No acute fracture trabecula unremarkable , symmetric joint space narrowing no visible fracture or dislocation soft tissues unremarkable. Cortical bone without evidence of irregularity. Radiology intepretation is pending. Discharge Plan Discharge Chief Complaint: Extremity Injury, Lower Clinical Impression: Lateral pain of left hip Patient Disposition: Home, Self-Care Time of Disposition Decision: 19:08 Condition: Good Prescriptions / Home Meds: No Action carvedilol 25 mg tablet 25 mg PO DAILY tizanidine 4 mg tablet 4 mg PO Q8H PRN (Reason: muscle spasticity) clopidogrel 75 mg tablet 75 mg PO DAILY simvastatin 40 mg tablet 40 mg PO DAILY pantoprazole 40 mg tablet,delayed release (DR/EC) 40 mg PO DAILY glimepiride 4 mg tablet 4 mg PO DAILY irbesartan 150 mg tablet 150 mg PO DAILY duloxetine 60 mg capsule,delayed release(DR/EC) 60 mg PO DAILY Novolin 70-30 FlexPen U-100 100 unit/mL (70-30) insulin pen See Protocol SUBCUT Protocol: Insulin Corrective High-Dose Regimen Condition: Fingerstick Blood Glucose Dose/Route: Insulin Units Condition: 141-200 mg/dl Dose/Route: 4 units/SQ Condition: 201-250 mg/dl Dose/Route: 8 units/SQ Condition: 251-300 mg/dl Dose/Route: 12 units/SQ Condition: 301-350 mg/dl Dose/Route: 16 units/SQ Condition: 351-400 mg/dl Dose/Route: 20 units/SQ Condition: 401-450 mg/dl Dose/Route: 24 units/SQ Condition: 451-500 mg/dl Dose/Route: 28 units/SQ Condition: greater than 500 mg/dl Dose/Route: 32 units/SQ and call practiti emilia isosorbide mononitrate 60 mg tablet extended release 24 hr 30 mg PO BID metoclopramide HCl 10 mg tablet 10 mg PO Q8H Allergy and Sinus Relief 25-10 mg tablet 1 tab PO TID bupropion HCl 150 mg tablet extended release 24 hr 150 mg PO DAILY aspirin 81 mg capsule 81 mg PO DAILY Print Language: Finnish Instructions: P.R.I.C.E. Treatment (ED), Hip Pain (ED) Additional Instructions: Use walker for ambulation. Referrals: Danilo Mclain MD [Primary Care Provider] - 1 week Bart Lopez MD [Physician] - 03/14/25 10:15 am
[2025-03-13] MEDS: KETOROLAC TROMETHAMINE 60 MG/2 ML VIAL IM (18:25)
[2025-03-13] MEDS: TIZANIDINE HCL 4 MG TABLET PO (18:25)
[2025-03-13] MEDS: OXYCODONE HCL/ACETAMINOPHEN 5MG/325MG 1 TAB PO (19:11)
== END 2025-03-13 19:16 | disposition home or self-care (01) ==
PROVIDERS: Emergency Provider Emergency Medicine; PCP Family Medicine
DX: M25.552 Pain in left hip (principal); Z79.02 Long term (current) use of antithrombotics/antiplatelets; Z90.710 Acquired absence of both cervix and uterus; Z90.49 Acquired absence of other specified parts of digestive tract; Z95.5 Presence of coronary angioplasty implant and graft; F17.210 Nicotine dependence, cigarettes, uncomplicated; E11.9 Type 2 diabetes mellitus without complications; Z79.4 Long term (current) use of insulin
CPT/HCPCS: 73502; 96372; 99284; J1885

== ENCOUNTER 2025-03-30 12:58 | Outpatient (RCR) | payer OTHER, SELFPAY | END 2025-04-21 08:57 | disposition home or self-care (01) | LOC: PT 12:58 | PROVIDERS: PCP Family Medicine; Visit Provider Orthopaedic Surgery | DX: M54.16 Radiculopathy, lumbar region (principal) | CPT/HCPCS: 97110; 97140; 97162 ==

== ENCOUNTER 2025-05-01 16:26 | Emergency (ER) | payer OTHER, SELFPAY ==
--- OUTSIDE RECORDS SUMMARY | 2025-03-14 06:10 | XMS_ITS ---
Author Organization [facility] Address [address] [place] [address] Care Team Providers Care Respiratory Therapist Assistant Name Role Phone Bart Lopez Unavailable [phone] Sandi Greenberg Unavailable [phone] Allergies Allergen (clinical drug ingredient) Drug/Non Drug Allergy documented on EMR Reaction Allergy Type Onset Date Status IV DYE (uncoded) Unknown Allergy Act frandy [place] STRAWBERRY (uncoded) Unknown Allergy Active atorvastatin Lipitor Unknown Drug Allergy Acti ve lisinopril lisinopril Unknown Drug Allergy Activ e REASON FOR VISIT [facility] ER LEFT HIP PAIN Medications Medication SIG (Take, Route, Fr equency, Duration) Notes Start Date End Date Status simvastatin Active glimepiride Active Cymbalta Active Coreg Active Plavix Active Medrol Dosepak 4 mg as directed 03/14/2025 Active pantoprazole Active NovoLIN N Active metoclopramide Activ e Social History Tobacco Use: Social History Observation Description Date Details (start date - stop date) Current Smoker NA - NA AUDIT-C (Standard) Question Answer Notes Did you have a drink containing alcohol in the p ast year? No Points 0 Interpretation Negative Tobacco Control (Standard) Question Answer Notes Tobacco use: Current smoker Problems Problem Type SNOMED Code ICD Code Onset Dates Problem Status W/U Status Risk Notes Problem [id number] Primary osteoarthritis of left hip (M16.12) Active confirmed Vital Signs Height 5'5 in 03/14/2025 Weight 212 lbs 03/14/2025 BMI 35.27 03/14/2025 Encounters Encounter Location Date Provider Diagnosis [facility] [address] [place] [address] [address] [place] [address] 03/14/2025 Sandi Yari Primary osteoarthritis of left hip M16.12 Assessments Encounter Date Diagnosis (ICD Code) Assessment Notes Treatment Notes Treatment Clinical Notes Section Notes 03/14/2025 Primary osteoarthritis of left hip (ICD-10 - M16.12) 03/14/2025 Other Patient does have hip DJD and seems to be having some pain at the posterior joint. She is not a good candidate for NSAIDs as she has had a previous aortic aneurysmal repair. I am going to give her a prescription for Medrol Dosepak to try and calm down the inflammation she is having. We will check her back in a few weeks to see how she is doing. Plan Of Treatment Medication Medication Name Sig Start Date Stop Date Notes Medrol Dosepak 4 mg as directed 03/14/2025 Treatment Notes Assessment Notes Other Patient does have hi p DJD and seems to be having some pain at the posterior joint. She is not a good candidate for NSAIDs as she has had a previous aortic aneurysmal repair. I am going to give her a prescription for Medrol Dosepak to try and calm down the inflammation she is having. We will check her back in a few weeks to see how she is doing. Progress Notes * MARTHA AVILADOB:[birth year] (69 yo F)Acc No.[id number]:03/14/2025 Patient: Concepcion MAY MARTHA Provider: REYNA Jaime :1955 A ge:69 Y S ex:Female Date:03/14/2025 Address:[address] [place] [address] [facility] Subjective: * Chief Complaints: * T ER LEFT HIP PAIN * HPI: G eneral Follow Up Information: Patient is a 69-year-old female who presents to the office today with complaints of left buttock pain. She states about 3 days ago she woke up with this pain and denies any injury. She did present to the [facility] ER yesterday where x-rays were negative. She was given a Toradol shot, Percocet, and a muscle relaxer but still having pain. She states she feels little a lot in the hip joint when she is walking. She will feel the pain referred down her posterior thigh sometimes. G eneral Info per Patient Report: Have you seen another doctor in this practice? N o. S tano affected is L eft. J oint or body part affected is h ip. P ain occurred s pontaneous. W ork related: N o. M otor vehicle accident: N o. T hird democrat responsibility: N o. Q uality of pain is s evere. T ype of pain: s harp. H ave you been seen by a Dentist in the last year? N o. D o you have any dental problems? N o. * ROS: C onstitutional: Fatigue Y es. G astrointestinal: Bloody Stool Y es. M usculoskeletal: Joint pain Y es. H ematologic: Bruising Y es. * Medical History: * Surgical History: H eart surgery 2010 * Family History: N o Family History documented.. * Social History: E xercise regularly D o you exercise? Y es. W hat is your place of residence? W here do you live? P rivate home. A ALESSIO-C (Standard) D id you have a drink containing alcohol in the past year? N o, P oints 0 , I nterpretation N egative. T obacco Control (Standard) T obacco use: C urrent smoker. * Medications: T akingNovoLIN N pantoprazole metoclopramide glimepiride Coreg Cymbalta Plavix simvastatin Medication List reviewed and reconciled with the patientTaking NovoLIN N Taking pantoprazole Taking metoclopramide Taking glimepiride Taking Coreg Taking Cymbalta Taking Plavix Taking simvastatin Medication List reviewed and reconciled with the patient * Allergies: L ipitorlisinoprilIV DYESTRAWBERRYno[Allergies Verified] Objective: * Vitals: H t: 5'5 , Wt: 212 lbs, BMI:35.27. * Examination: G eneral examination: O n exam patient is in no distress, age-appropriate, alert and oriented x 3. Patient ambulates with antalgic gait and is not utilizing an ambulatory aid. On inspection skin is intact, no erythema, no warmth to touch. IR/ER of the left hip causes posterior joint pain. Passive flexion of the hip gives her relief of the pain. There is tenderness with palpation of the posterior femoral acetabular joint, left SI joint, no tenderness over the greater trochanteric bursa. No lumbar spine tenderness. 4/5 left hip flexion/extension secondary to pain, 5/5 strength otherwise bilateral lower extremities. Negative clonus bilaterally. Sensation intact distally with light touch bilateral lower extremities. X -ray Imaging Studies: 3 view x-rays of the left hip, AP pelvis, lateral and frog-leg lateral were reviewed from the [facility] from 03/13/2025 that were negative for fracture or dislocation. There is some femoral acetabular joint space loss bilaterally. Small osteophyte noted off the femoral head. Assessment: * Assessment: 1. P rimary osteoarthritis of left hip - M16.12 (Primary) Plan: * Treatment: 2. O thers Notes: Patient does have hip DJD and seems to be having some pain at the posterior joint. She is not a good candidate for NSAIDs as she has had a previous aortic aneurysmal repair. I am going to give her a prescription for Medrol Dosepak to try and calm down the inflammation she is having. We will check her back in a few weeks to see how she is doing. * Procedure Codes: * Preventive Medicine: MIPS Measures: C MS139 Fall Risk S creening: O ne fall without injury in the past year. Forms: * Images: * Sign off status: Completed true * Provider: REYNA Jaime Date: 0 03/14/2025 Generated for Alivia santos/Richard/Emoryitting on: 0 05/01/2025 04:32 PM EDT History and Physical Notes * HPI (History of Present Illness) Category Sub-Category Detail Notes Category Not es General Follow Up Information Patient is a 69-year-old female who presents to the office today with complaints of left buttock pain. She states about 3 days ago she woke up with this pain and denies any injury. She did present to the [facility] ER yesterday where x-rays were negative. She was given a Toradol shot, Percocet, and a muscle relaxer but still having pain. She states she feels little a lot in the hip joint when she is walking. She will feel the pain referred down her posterior thigh sometimes. General Info per Patient Report Side affected is Left Joint or body part affected is hip Pain occurred spontaneous Work related: No Motor vehicle accident: No Quality of pain is severe Type of pain: sharp Have you seen another doctor in this pra ctice? No Third democrat responsibility: No Have you been seen by a Dentist in the l ast year? No Do you have any dental problems? No Examination Category Sub-Category Detail Notes Category Not es General examination On exam patient is in no distress, age-appropriate, alert and oriented x 3. Patient ambulates with antalgic gait and is not utilizing an ambulatory aid. On inspection skin is intact, no erythema, no warmth to touch. IR/ER of the left hip causes posterior joint pain. Passive flexion of the hip gives her relief of the pain. There is tenderness with palpation of the posterior femoral acetabular joint, left SI joint, no tenderness over the greater trochanteric bursa. No lumbar spine tenderness. 4/5 left hip flexion/extension secondary to pain, 5/5 strength otherwise bilateral lower extremities. Negative clonus bilaterally. Sensation intact distally with light touch bilateral lower extremities. X-ray Imaging Studies 3 view x-rays of the left hip, AP pelvis, lateral and frog-leg lateral were reviewed from the [facility] from 03/13/2025 that were negative for fracture or dislocation. There is some femoral acetabular joint space loss bilaterally. Small osteophyte noted off the femoral head
--- OUTSIDE RECORDS SUMMARY | 2025-03-15 07:00 | XMS_ITS ---
Author Organization [facility] in [place] Address [address] [place] [address] Care Team Providers Care Repairer Switchgear Name Role Phone Royer Mclain Primary Care Provider [phone] Allergies Allergen (clinical drug ingredient) Drug/Non Drug [...] 03/15/2025 Encounters Encounter Location Date Provider Diagnosis [facility] [address] [facility] [place] [address] 03/15/2025 Royer Mclain Rectal bleeding K62. 5 [...] * Jessi SOSA SDOB:1954 (69 yo F)Acc No.[id number]:03/15/2025 Progress Note Patient: Jayson BRADSHAWny S Provider: Concepcion Mclain ([facility])MD :1955 A ge:69 Y S ex:Female Date:03/15/2025 Address:[address] [place] [address] , [place], [id number] Check In:10:49 AM ESTCheck O ut:11:37 AM EST Subjective: * Chief Complaints: * R ectal Bleeding- filling toilet with blood- just had colonoscopy in June- even if passes gas, has bloodDr [place] has her on steroid pack currently * [...] Procedure Codes: * Preventive Medicine: Screenings/Counseling: B [place] ACTION PLAN Above Normal BMI Follow-up D ietary management education, guidance, and counseling * * Sign off status: Completed Visit Status: C HK (Check Out) true * Provider: Concepcion Mclain ([facility])MD Date: 0 03/15/2025 Generated for Printi ng/Faxing/eTransmitting on: 0 05/01/2025 04:33 PM EDT History and Physical Notes * [...]
--- OUTSIDE RECORDS SUMMARY | 2025-03-15 09:11 | XMS_ITS ---
Author Organization [facility] in [place] Address [address] [place] [address] Care Team Providers Care Benefits Technician Name Role Phone Royer Mclain Primary Care Provider [phone] REASON FOR VISIT Cream NA Medications Medication SIG (Take, Route, Frequency, Duration) Notes Start Date End Date Status Hydrocortisone Mayco-Pramoxine 1-1 % 1 application Externally Three times a day 03/15/2025 Active Encounters Encounter Location Date Provider Diagnosis [facility] [address] [place] [address] [place] [address] 03/15/2025 Royer Mclain Plan Of Treatment Medication Medication Name Sig Start Date Stop Date Notes Hydrocortisone Mayco-Pramoxine 1-1 % 1 application Externally Three times a day 03/15/2025 Progress Notes * JANAJessi SIMONS SDOB:1954 (69 yo F)Acc No.[id number]:03/15/2025 Patient: Jessi BRADSHAW :1955 A ge:69 Y S ex:Female Address:[address] [place] [address] [place] [address] * Refills Start Hydrocortisone Mayco-Pramoxine Cream, 1-1 %, Externally, 60, 1 application, Three times a day, Refills=11 * true * Date: Generated for Alivia santos/Richard/eTransmitting on: 0 05/01/2025 04:33 PM EDT
--- OUTSIDE RECORDS SUMMARY | 2025-03-17 10:12 | XMS_ITS ---
Author Organization [facility] in [place] Address [address] [place] [address] Care Team Providers Care Live In Housekeeper Nanny Name Role Phone Royer Mclain Primary Care Provider REASON FOR VISIT hydrocortisone denied Encounters Encounter Location Date Provider Diagnosis [facility] [address] [place] [facility] [place] [address] 03/17/2025 Royer Mclain Plan Of Treatment No Information Progress Notes * Jessi SOSA SDOB:1954 (69 yo F)Acc No.[id number]:03/17/2025 Patient: Concepcion MAY Jessi Allison :1955 A ge:69 Y S ex:Female Address:[address] [place] [address] [place] [address] * true * Date: Generated for Edenilsoni ng/Fahenryg/eTransmitting on: 0 05/01/2025 04:33 PM EDT
--- OUTSIDE RECORDS SUMMARY | 2025-03-28 06:40 | XMS_ITS ---
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 Operator Name Role Phone JessicaBart Unavailable [phone] Allergies Allergen (clinical drug ingredient) Drug/Non Drug Allergy documented on EMR Reaction Allergy Type Onset Date Status IV DYE (uncoded) Unknown Allergy Act frandy [place] STRAWBERRY (uncoded) Unknown Allergy Active atorvastatin Lipitor Unknown Drug Allergy Acti ve lisinopril lisinopril Unknown Drug Allergy Activ e Reason For Referral Reason APPROVED ........PLE ASE OBTAIN AUTHORIZATION FOR MRI LUMBAR Diagnosis 1 Lumbar radiculopathy (M54.16) Referral Organization [facility] Referring Provider First Name Bart Referring Provider Last Name Lopez Referring Provider Speciality Orthopedic Surgery Referred Organization [facility] Referred Address [place], [place], Procedure 1 MRI Lumbar Spine w/o Dye (90374) General Notes Sonal Musa 025 01:50:36 PM >NO DICTATIONDimple Amy 03/29/2025 08:49:46 AM >APPROVED PER [facility] AUTH #[id number] VALID 03/29/2025-04/28/2025 COPY IN CHART MA NOTIFIED REF FXAED TO Jessica LYON Monica 03/29/2025 09:27:44 AM >FAXED Referral Priority Routine REASON FOR VISIT left hip djd Social History Tobacco Use: Social History Observation Description Date Details (start date - stop date) Current Smoker NA - NA AUDIT-C (Standard) Question Answer Notes Did you have a drink containing alcohol in the p ast year? No Points 0 Interpretation Negative Tobacco Control (Standard) Question Answer Notes Tobacco use: Current smoker Vital Signs Height 5'5 in 03/28/2025 Weight 212 lbs 03/28/2025 BMI 35.27 03/28/2025 Encounters Encounter [facility] Date [facility] [address] [facility] [address] [place] [address] 03/28/2025 Bart Lopez Lumbar radiculopathy M54.16 Assessments Encounter Date Diagnosis (ICD Code) Assessment Notes Treatment Notes Treatment Clinical Notes Section Notes 03/28/2025 Lumbar radiculopathy (ICD-10 - M54.16) 03/28/2025 Other For her lumbar degenerative disc disease at L5-S1 with radiculopathy I recommended physical therapy and MRI scan to evaluate for potential disc herniation in need for epidural injection. She will follow-up once the MRI is complete. Import medication Plan Of Treatment Treatment Notes Assessment Notes Other For her lumbar degenerative disc disease at L5-S1 with radiculopathy I recommended physical therapy and MRI scan to evaluate for potential disc herniation in need for epidural injection. She will follow-up once the MRI is complete. Import medication Pending Test Test Name Order Date MRI : Lumbosacral Spine W/O Contrast - 7 214703/28/2025 [facility]- LUMBAR 4 VIEW 71818 03/28/2025 [facility]- PT/OT EVAL AND TREAT 3X/WEEK FOR 6 WEEKS 03/28/2025 Referrals Referral Date Details 03/28/2025 03/28/2025, APPROVED ........PLEASE OBTAIN AUTHORIZATION FOR MRI LUMBAR, [place] Next Appt Details Follow Up: AFTER MRI, Reason : Progress Notes * MARTHA AVILADOB:[birth year] (69 yo F)Acc No.[id number]:03/28/2025 Patient: Concepcion MARTHA MAY Provider: Allison Lopez MD :1955 A ge:69 Y S ex:Female Date:03/28/2025 Address:[address] [place] [address] [id number] Subjective: * Chief Complaints: * 1 . Left hip djd. * HPI: G eneral Follow Up Information: Patient presents today for follow-up of her left buttock pain. She reports no improvement in symptoms with Medrol Dosepak. She now reports pain travels all the way down to her toes with numbness and tingling in her toes. * Medical History: A sthma/COPD, Cancer, Heart problems:, Type II diabetes, Stroke, High Blood Pressure, Kidney trouble, Drug Allergies. * Surgical History: H eart surgery 2010. * Family History: N o Family History [...] obacco use: C urrent smoker. * Medications: N one * Allergies: L ipitor, lisinopril, IV DYE, STRAWBERRY. Objective: * Vitals: H t: 5'5 , Wt: 212 lbs, BMI:35.27. * Examination: [facility] examination: O n exam today she is in no obvious distress. Straight leg raise resisted radicular symptoms down the legs. She has some diminished sensation to light touch over the lateral leg. No motor weakness on exam today of the lower extremity. X -ray Imaging Studies: 4 view x-rays of her lumbar spine obtained today in clinic and interpreted by myself show degenerative disc disease at L5-S1 with disc space narrowing. Assessment: * Assessment: 1. L umbar radiculopathy - M54.16 (Primary) Plan: * Treatment: 2. O thers I maging: SCC- LUMBAR 4 VIEW [id number] Notes: For her lumbar degenerative disc disease at L5-S1 with radiculopathy I recommended physical therapy and MRI scan to evaluate for potential disc herniation in need for epidural injection. She will follow-up once the MRI is complete. Import medication * Procedure Codes: 7 2110 X-ray Lumbar Spine, 5 view complete * Follow Up: A FTER MRI Forms: * Images: * Electronic signature of Leo Lopez MD on 05/01/2025 at 04:33 PM EDT Sign off status: Pending * Provider: Allison Lopez MD Date: 0 03/28/2025 Generated for Alivia santos/Richard/Emoryitting on: 0 05/01/2025 04:33 PM EDT History and Physical Notes * HPI (History of Present Illness) Category Sub-Category Detail Notes Category Not es General Follow Up Information Patient presents tod ay for follow-up of her left buttock pain. She reports no improvement in symptoms with Medrol Dosepak. She now reports pain travels all the way down to her toes with numbness and tingling in her toes. Examination Category Sub-Category Detail Notes Category Not es General examination On exam today she is in no obvious distress. Straight leg raise resisted radicular symptoms down the legs. She has some diminished sensation to light touch over the lateral leg. No motor weakness on exam today of the lower extremity. X-ray Imaging Studies 4 view x-rays of her lumbar spine obtained today in clinic and interpreted by myself show degenerative disc disease at L5-S1 with disc space narrowing. Consultation Request Notes Referral Date Referring Provider Referred Provider Not jada 03/28/2025 Bart Lopez , APPROVED .. ......PLEASE OBTAIN AUTHORIZATION FOR MRI LUMBAR
[2025-05-01 16:30] VITALS: BP 162/76; PULSE 88; TEMP 37.1; O2SAT 98; BMI 36.6
--- OUTSIDE RECORDS SUMMARY | 2025-05-01 16:32 | XMS_ITS | CCD ---
Author Organization [facility] [place] Care Team Providers Care Lofter Name Role Phone Robin Ponce Primary Care Provider [phone] HERMELINDO ADKINS Consulting Unavailable ROBIN PONCE Primary Care Unavailable HERMELINDO ADKINS Attending Unavailable HERMELINDO ADKINS Admitting Unavailable GENEVIEVELONDON Ramirez Consulting Unavailable ELTAHAWY, EHAB A Attending Unavailable CONCEPCIÓN, EHAB A Admitting Unavailable ROBIN PONCE Referring Unavailable ROBIN PONCE Primary Care Unavailable MD Darby Hernandez Primary Care Provider [phone] MD Ese Tan Attending Provider SHAIKH HERNANDEZ Primary Care Physician [phone] DR DANK JOHNSON Admitting UnavailDR ROBIN Marie Primary Care Unavailable DR DANK JOHNSON Attending Unavailabl e SHANTELCHREYNA GREGG Consulting UnavailSILVANA SimonYINKA Consulting Unavailable DR ROBIN SEGOVIA Primary Care Unavailable TAMLYN ., JEFFRY Admitting Unavailable SHELLEY II, TIMOTEO Consulting Unavailable TAMLYN ., JEFFRY Attending Unavailable TAMLYN ., JEFFRY Consulting Unavailable FILUTZE, LAURIE Consulting Unavailable FAWWAD, TRENT H Admitting Unavailable FAWSANDY, TRENT H Attending Unavailable MARY, TRENT H Primary Care Unavailable DR ROBIN SEGOVIA Admitting Unavailable DR ROBIN SEGOVIA Attending Unavailable DR ROBIN SEGOVIA Consulting Unavailable FAKARINA, TRENT H Primary Care Unavailable MISC, DR SONI Admitting Unavailable MISC, DR SONI Attending Unavailable MISC, DR SONI Consulting Unavailable DR ROBIN SEGOVIA Primary Care Unavailable ZIEBER, DR MERCEDES Bates Consulting Unavailable MISC, DR SONI Attending Unavailable DANIELC, DR SONI Consulting Unavailable DANIELC, DR SONI Admitting Unavailable SHAIKH Enio HERNANDEZ Primary Care Unavailable REGIS, DR ZELALEM Bates Admitting Unavailable MARY, SHAIKH Enio Primary Care Unavailable REGIS, DR ZELALEM Bates Attending Unavailable REGIS, DR ZELALEM Bates Consulting Unavailable MIKAEL GUZMAN Consulting Unavailable Robin Ponce Primary Care Physician Ese Tan Admitting Unavailable Ese Tan Attending Unavailable Fawsandy, Primary Care Unavailable NILL, Dom Bates Attending Unavailable DOLAN, Arturo Bates Attending Unavailable DOLAN, Arturo Bates Referring Unavailable DOLAN, Arturo Bates Attending Unavailable DOLAN, Arturo Bates Attending Unavailable DOLAN, Arturo Bates Attending Unavailable DOLAN, Arturo R Referring Unavailable DOLAN, Arturo R Admitting Unavailable NILL, Dom R Attending Unavailable ELTAGENIEY, EHAB Attending Unavailable Allergies Allergy Classification Reported Allergen(s) Allergy Type Date of Onset Reaction(s) Facility Angiotensin Converting Enzyme (RYANNE) Inhibitors (1 source) Lisinopril Drug Allergy [facility] Anti-Epileptic Agents (1 source) topiramate Drug Allergy [facility] Berries (1 source) [place] Food Allergy [facility] Cats (1 source) Cat Animal Allergy (Dander) [facility] Dextroamphetamine (1 source) Dextroamphetamine Drug Allergy [facility] Iodine (and Iodine containting drugs) (1 source) Iodine (And Iodine Containting Drugs) Drug Allergy [facility] Unclassified (2 sources) BLUE DYE; Translations: [BLUE DYE] Drug allergy (disorder) [facility] (8 sources) Aspirin; Translations: [Aspirin] Drug Allergy 016 Nausea [facility] Comment on above: uncoded aspirin (8 sources) atorvastatin; Translations: [atorvastatin] Drug Allergy 014 Muscle pain (finding) [facility] (11 sources) Lisinopril; Translations: [Lisinopril] Drug Allergy Edema of pharynx (disorder) [facility] (3 sources) Morphine; Translations: [morphine] Drug Allergy [facility] (5 sources) strawberry allergenic extract; Translations: [[place]] Drug Allergy [facility] (8 sources) topiramate; Translations: [topiramate] Drug Allergy Urticaria (disorder), Nausea (finding) [facility] (2 sources) cat dander; Translations: [cat dander] Allergy to substance [facility] (3 sources) Iodinated Contrast Media; Translations: [Iodinated Contrast Media] Allergy to substance [facility] (6 sources) Contrast media; Translations: [Contrast Dye] Drug allergy Urticaria (disorder) [facility] (6 sources) [place]; Translations: [Strawberries] Drug allergy Urticaria (disorder) [facility] (6 sources) SUMAtriptan; Translations: [sumatriptan] Drug Allergy Nausea (finding) [facility] (1 source) Acetaminophen / Aspirin / Caffeine Drug Allergy [facility] (2 sources) Dextroamphetamine; Translations: [Lipitor] Drug Allergy [facility] (2 sources) Iodine (And Iodine Containting Drugs) Drug allergy (disorder) [facility] (1 source) Ketorolac Drug Allergy [facility] (1 source) Plasmin Drug Allergy [facility] (3 sources) topiramate; Translations: [Topamax] Drug Allergy [facility] (2 sources) Dhe Drug allergy (disorder) [facility] (2 sources) Cat/Feline Product Derivatives Drug allergy (disorder) [facility] (1 source) Iodine; Translations: [IODINE] Drug Allergy [facility] (1 source) CAT/FELINE PRODUCTS; Translations: [CAT/FELINE PRODUCTS] Propensity to adverse reactions to drug (disorder) 016 [facility] Medications Current Medications Medication Drug [...] by mouth every six hours as needed xpnammepky-bbpaoxhatudvk-[id number] (DAISY CET, ESGIC) 50-325-40 MG per tablet [...] 3 day(s), 15 tab(s), Refill(s) 0, [facility]/pharmacy #[id number], 165, cm, 07/13/23 11:34:00 EDT, Height/Length Dosing, 95.5, kg, 07/13/23 11:34:00 EDT, Weight Dosing Start Date: 07/13/23 Stop Date: 07/16/23 Status: Ordered allopurinol 300 mg oral tablet (1 source) Xanthine Oxidase Inhibitor Start: 02-21-2025 End: 02-16-2026 take 1 tablet by mouth once daily allopurinol 300 mg Tab 300 mg = 1 tab(s), Oral, Daily, X 90 day(s), # 90 tab(s), Refills(s) 3, Pharmacy: [facility]/pharmacy #[id number], 165, cm, 02/21/25 13:35:00 EDT, Height/Length [...] procedure, # 2 cap(s), Refills(s) 0, Pharmacy: [facility]/pharmacy #[id number], 165, cm, 02/21/25 13:35:00 EDT, Height/Length [...] 1 Start: 09-01-2020 take 1 capsule by [facility] once daily 60 mg, Oral, DAILY, First dose on Fri09/01/20 at 1345 Do not crush or break. May add contents of capsule to apple juice or apple sauce, but not chocolate. Start: 08-22-2020 take 1 capsule by [facility] once daily DULoxetine (CYMBALTA) 60 MG extended release capsule Take 1 capsule by mouth daily 0 08/22/2020 Active duloxetine 60 mg Cap-DR (2 sources) Start: 05-05-2024 take 1 capsule by mouth once daily duloxetine 60 mg Cap-DR = 1 cap(s), Oral, Daily, Refills(s) 0 Start Date: 05/05/24 Status: Ordered Repeat number: 1 Start: 05-05-2024 take 1 capsule by [facility] once daily duloxetine 60 mg Cap-DR = [...] 06-01-2020 take 1 capsule by [facility] four times daily as needed for [...] 1 Start: 08-14-2020 take 1 tablet by [facility] once daily irbesartan (AVAPRO) 150 MG tablet [...] administer the echo contrast. polyethylene glycol 3350 93504 mg powder for oral solution (1 source) [...] and rectum] Onset: 05-13-2024 Episodic Anxiety disorders (1 source) Anxiety disorder, unspecified; Translations: [ANXIETY DISORDER UNSPECIFIED] Onset: 04-03-2023 Chronic Aortic; peripheral; and visceral artery aneurysms [...] nonhypertensive (5 sources) Heart failure, unspecified; Translations: [Chronic systolic heart failure] Onset: 05-13-2012 05-05-2024 Chronic Coronary atherosclerosis and other heart disease (12 sources) Coronary arteriosclerosis; Translations: [Atherosclerotic heart disease of [place] coronary artery without angina pectoris] Onset: 05-06-2012 [...] esophagitis; Translations: [Gastroesophageal reflux disease] Onset: 03-10-2023 05-05-2024 Chronic Essential hypertension (15 sources) Hypertensive disorder; [...] Onset: 04-03-2023 02-21-2025 Episodic Headache; including migraine (6 sources) Hemiplegic [...] Translations: [Nausea with vomiting, unspecified] 03-20-2021 Episodic Nonspecific chest pain (6 sources) Left sided chest pain; Translations: [Chest pain, unspecified] Onset: 04-01-2023 03-20-2021 Episodic Osteoarthritis (6 sources) Arthritis; Translations: [Unspecified osteoarthritis, unspecified site] Onset: 04-16-2023 12-05-2021 Chronic Other aftercare (2 sources) Long-term current use of drug therapy; Translations: [Other manager terminal (current) drug therapy] Onset: 02-24-2023 Episodic Other aftercare (1 source) residential (current) use of insulin; Translations: [SHELTER CURRENT USE OF INSULIN] Onset: 04-16-2023 Episodic Other aftercare (1 source) Other manager terminal (current) drug therapy; Translations: [OTH SHELTER CURRENT DRUG THERAPY] Onset: 04-16-2023 Episodic Other [...] other diseases of the circulatory system] Onset: 03-30-2025 Episodic Other connective tissue disease (5 sources) [...] sources) Dysphagia, unspecified; Translations: [Dysphagia, unspecified] Onset: 03-30-2025 Episodic Other injuries and conditions due to [...] UTERUS] Onset: 04-03-2023 Episodic Residual codes; unclassified (1 source) Tobacco user; Translations: [Tobacco use] Onset: 05-13-2024 Episodic Residual codes; unclassified (2 sources) Other specified postprocedural states; Translations: [Other specified postprocedural states] Onset: 03-30-2025 Episodic Screening and history of mental health and substance abuse codes (2 sources) Tobacco use and exposure - finding 05-13-2024 Chronic Spondylosis; intervertebral disc disorders; other back problems (2 sources) Lumbosacral radiculopathy 05-05-2024 Episodic Substance-related disorders (6 sources) Smoker; Translations: [Nicotine dependence, cigarettes, uncomplicated] Onset: 04-16-2023 02-24-2023 Chronic Comment on above: Added secondary to d ocumentation in Social History. Syncope (5 sources) Syncope and collapse; Translations: [Near syncope] Onset: 08-31-2020 08-31-2020 Episodic Thyroid disorders (2 sources) Hypothyroidism 05-05-2024 Chronic [...] [UNSPECIFIED FALL INITIAL ENCOUNTER] Onset: 2022 Episodic Other aftercare (1 source) manager terminal (current) use of antithrombotics/anti platelets; Translations: [SHELTER ANTITHROMBOT/ANTIPLA TLETS] Onset: 2022 Episodic Other aftercare (1 source) manager terminal (current) use of aspirin; Translations: [SHELTER CURRENT USE OF ASPIRIN] Onset: 2022 Episodic Other aftercare (1 source) manager terminal (current) use of oral hypoglycemic drugs; Translations: [SHELTER USE ORAL HYPOGLYCEMIC DX] Onset: 2022 Episodic [...] KNEE INITIAL ENC] Onset: 2022 Episodic Unclassified (5 sources) Cystoscopy and transurethral resection of bladder tumor 09-07-2010 Results Test Name Value Interpretation Reference Range Facility Office Visiton 03-30-2025 Follow-up visit [id number] Sergio Avila 1955 Date Provider Department Center 03/30/2025 [id number] PARDO [facility] Family History Problem Relation Age of Onset No Known Problems Mother No Known Problems Father Family Status - Relation Status Age at Mother Father Level of Service:84779 [place] OFFICE/OUTPATIENT ESTABLISHED LOW MDM 20 MIN Normal [facility] Orders Onlyon 03-30-2025 Orders Only [id number] Sergio Avila 1955 Provider Department Center 03/30/2025 [id number] ACUNA [facility] Family History Problem Relation Age of Onset No Known Problems Mother No Known Problems Father Family Status - Relation Status Age at Mother Father Normal [facility] Main OR Intraoperative Recor don 02-22-2025 Main OR Intraoperative Record Main OR Intraoperative Record IntraOp Document Type FTURO Summary Primary Physician: Arturo DOLAN MD Finalized Date/Time: 02/22/25 14:57:05 Pt. Name: JESSI AVILA.O.B./Sex: 1955 Female Med Rec #: [id number] Physician: Arturo DOLAN MD Financial #: [id number] Pt. Type: O Room/Bed: / Admit/Disch: 02/22/25 13:01:25 - Institution: Case Times FTURO Entry 1 Patient Times In Room 02/22/25 14:41:00 Out Room 02/22/25 14:56:00 Procedure Times Start 02/22/25 14:50:00 Stop 02/22/25 14:53:00 Anesthesia Times Last Modified By: Eusebia Nathan 02/22/25 14:57:00 Case Attendance FTURO Entry 1 Entry 2 Entry 3 Case Attendee MAGDALENO PRADO, Eusebia Ferreira BUILDING CODE INSPECTORAshlee Role Performed Surgeon - Primary Tea And Spice Supervisor - Primary Scrub - Primary Time In [...] Signed By: Eusebia Nathan 02/22/25 14:57 Normal [facility] Main OR Preoperative Recordo n 02-22-2025 Main OR Preoperative Record Main OR Preoperative Record Holding Area Document Type FTURO Summary Primary Physician: Arturo DOLAN MD Finalized Date/Time: 02/22/25 14:39:57 Pt. Name: JESSI AVILA /Sex: 1955 Female Med Rec #: [id number] Physician: Arturo DOLAN MD Financial #: [id number] Pt. Type: O Room/Bed: / Admit/Disch: 02/22/25 [...] Complaints of Pain: No Skin Integrity Intact, [place], Warm, & Dry Vitals - EU Blood Pressure 127/79 Pulse 87 bpm Respirations 18 br/min SPO2 97 % Additional None RN Reviewed Yes Specimens Collected Last Modified By: Eusebia Nathan 02/22/25 14:39:56 Finalized By: Eusebia Nathan Document Signatures Signed By: Laurie Venegas LPN 02/22/25 14:18 Eusebia Nathan 02/22/25 14:39 Unfinalized History Date/Time Username Reason for Unfinalizing Freetext Reason for Unfinalizing 02/22/25 14:39 [id number] Adding Additional Data Normal [facility] Operative Reporton Operative Report Operative Report Patient: JESSI AVILA Age: 69 years Sex: Female : [...] urine. The Urethra was dilated to: 30 Cam[place]onian w/ sounds. Devices Implanted: None. Removal: Cystoscope is removed, The patient tolerated it well. Postoperative Information Discharge: Patient is discharged home with antibiotic coverage, Follow up arranged. We discussed considering initiating estrogen cream. For now we will wait half a year and reevaluate.. Normal [facility] Comment on above: Result Comment: Elec tronically Signed By: MAGDALENO PRADO, Arturo Bates\.br\Date and Time Signed: 02/22/25 14:58 EDT Ambulatory Visit Summaryon 0 02-21-2025 Ambulatory Visit Summary Ambulatory Visit Summary JESSI AVILA :1955 Visit Date:02/21/2025 Ambulatory Visit Instructions [...] Where: [facility] [address] [place] [address]- [phone] Medications What How Much When Why Instructions New allopurinol (allopurinol 300 mg Tab) 1 Tablets By Mouth Every day Kidney stones Duration: 90 Days Refills: 3 Pickup at [facility]/pharmacy #[id number] New doxycycline (doxycycline hyclate 100 mg Cap) 1 Capsules By Mouth Every day take one day before procedure and take one day after procedure Pickup at [facility]/pharmacy #[id number] Unchanged buPROPion (buPROPion 150 mg ER Tab) [...] Pharmacy Information (more content not included)... Normal [facility] Ambulatory Visit Summary Ambulatory Visit Summary JESSI AVILA :1955 Visit Date:02/21/2025 Ambulatory Visit Instructions [...] Schedule the Following Appointments Follow Up with Arturo DOLAN MD, URL When: Where: [facility] [address] , [place] [address]- [phone] Medications What How Much When Instructions Unchanged [...] rectum) Cerebral (more content not included)... Normal [facility] Urology Office/Clinic Noteon 02-21-2025 Urology Office/Clinic [...] 12/18/24 - 90% uric acid, 10% CaOx [place]. Metabolic workup completed 01/01/24 at [facility]. CT AP wo con 04/21/24 [facility] - neg for stones. No updated [...] When Contact Information MAGDALENO PRADO, Arturo Bates, [facility] [address] [place] [address] [phone] Additional Instructions: sched cysto/poss UD Patient Education Urethral Dilation Steps to Quit Smoking I, Karina Vaca, personally scribed for Dr. Dolan on 02/21/2025 [...] per rect (more content not included)... Normal [facility] Comment on above: Result Comment: Elec tronically [...] Patient due for screening colonoscopy 06/23/2034. Normal [facility] Ambulatory Visit Summaryon 0 05-13-2024 Ambulatory Visit Summary Ambulatory Visit Summary JESSI AVILA :1955 Visit Date:05/13/2024 Ambulatory Visit Instructions [...] via text (more content not included)... Normal [facility] ED Note-Physicianon 05-06-20 24 ED Note-Physician [id number] Normal [facility] RAD - CT Reporton 05-06-2024 RAD - CT Report [id number] Normal [facility] Physician Referralon 024 Physician Referral [id number] Normal [facility] POINT OF CARE GLUCOSEon 03-19 Glucose [Mass/Vol] 90 mg/dL Normal 74-106 [facility] Comment on above: Performed By: #### P OCGLUC #### [facility] [address] [place] [address] Dr. Win Ardon CARDIAC STRESS TESTon 2022 [...] reported nuclear myocardial perfusion imaging. Normal [facility] CBC AUTO DIFFon 04-01-2023 BASO # 0.1 103/ul Normal 0.0-0.1 [facility] Comment on above: Performed By: #### C BC #### [facility] [address] [place] [address] Dr. Win Ardon Basophils/100 WBC (Bld) 1.3 % Normal 0.2-2.0 [facility] Comment on above: Performed By: #### C BC #### [facility] [address] [place] [address] Dr. Win Ardon EO # 0.4 103/ul Normal 0.0-0.7 [facility] Comment on above: Performed By: #### C BC #### [facility] [address] [place] [address] Dr. Win Ardon Eosinophils/100 WBC (Bld) 4.1 % Normal 0.9-7.0 [facility] Comment on above: Performed By: #### C BC #### [facility] [address] [place] [address] Dr. Win Ardon Erythrocyte distribution width (RBC) [Ratio] 13.3 % Normal 11.0-15.0 [facility] Comment on above: Performed By: #### C BC #### [facility] [address] [place] [address] Dr. Win Ardon Hematocrit (Bld) [Volume fraction] 38.9 % Normal 36.0-48.0 [facility] Comment on above: Performed By: #### C BC #### [facility] [address] [place] [address] Dr. Win Ardon Hemoglobin (Bld) [Mass/Vol] 13.2 g/dL Normal 12.0-16.0 [facility] Comment on above: Performed By: #### C BC #### [facility] [address] [place] [address] Dr. Win Ardon IG # 0.04 10e3/ul Critically high 0.00-0.03 [facility] Comment on above: Performed By: #### C BC #### [facility] [address] [place] [address] Dr. Win Ardon IG % 0.4 % Normal 0.0-0.5 [facility] Comment on above: Performed By: #### C BC #### [facility] [address] [place] [address] Dr. Win Ardon LYMPH # 3.2 103/ul Normal 1.2-3.8 [facility] Comment on above: Performed By: #### C BC #### [facility] [address] [place] [address] Dr. Win Ardon Lymphocytes/100 WBC (Bld) 34.7 % Normal 20.5-60.0 [facility] Comment on above: Performed By: #### C BC #### [facility] [address] [place] [address] Dr. Win Ardon MANUAL DIFF REQ NO Normal [facility] Comment on above: Performed By: #### C BC #### [facility] [address] [place] [address] Dr. Win Ardon MCH (RBC) [Entitic mass] 31.3 pg Normal 26.7-34.0 [facility] Comment on above: Performed By: #### C BC #### [facility] [address] [place] [address] Dr. Win Ardon MCHC (RBC) [Mass/Vol] 33.9 g/dL Normal 29.9-35.2 [facility] Comment on above: Performed By: #### C BC #### [facility] [address] [place] [address] Dr. Win Ardon MCV (RBC) [Entitic vol] 92.2 fL Normal 81.0-99.0 [facility] Comment on above: Performed By: #### C BC #### [facility] [address] [place] [address] Dr. Win Ardon MONO # 0.7 103/ul Normal 0.3-0.8 [facility] Comment on above: Performed By: #### C BC #### [facility] [address] [place] [address] Dr. Win Ardon Monocytes/100 WBC (Bld) 7.1 % Normal 1.7-12.0 [facility] Comment on above: Performed By: #### C BC #### [facility] [address] [place], [place] [id number] Dr. Win Ardon NEUT # 4.9 103/ul Normal 1.4-6.5 [facility] Comment on above: Performed By: #### C BC #### [facility] [address] [place] [address] Dr. Win Ardon Neutrophils/100 WBC (Bld) 52.4 % Normal 43.0-75.0 [facility] Comment on above: Performed By: #### C BC #### [facility] [address] [place] [address] Dr. Win Ardon Platelet mean volume (Bld) [Entitic vol] 10.6 fL Normal 9.5-13.5 [facility] Comment on above: Performed By: #### C BC #### [facility] [address] [place] [address] Dr. Win Ardon PLT 231 103/ul Normal 150-450 [facility] Comment on above: Performed By: #### C BC #### [facility] [address] [place] [address] Dr. Win Ardon RBC 4.22 106/ul Normal 4.20-5.40 [facility] Comment on above: Performed By: #### C BC #### [facility] [address] [place] [address] Dr. Win Ardon WBC 9.3 103/ul Normal 4.0-11.0 [facility] Comment on above: Performed By: #### C BC #### [facility] [address] [place] [address] ABD/PELVIS WO CONon [...] by: LISSETT ALAN Date: 2023-04-01 20:03 Normal [facility] LACTATE/LACTIC ACIDon 2022 Lactate [Moles/Vol] 1.2 mmol/L Normal 0.4-2.0 [facility] Comment on above: Performed By: #### L ACT #### [facility] [address] [place] [address] Dr. Win Ardon NM STRESS/REST MULTIon 04-01 NM STRESS/REST MULTI Patient: JESSI AVILA Exam Date: 04/01/2023 : 1955 Gender:F Ordering : MRS. JONO HEMPHILLNICOLA ALBRIGHT Admission #: [id number] Family : SHAIKH Aroldo HERNANDEZ . Order #: [id number] CLICK HERE TO VIEW EXAM RADIOLOGY REPORT [...] M.D. on 04/02/2023 at 11:10 Normal [facility] OCC BLD IMMUNO SCREENon 03-17 OCCULT BLOOD Positive Abnormal NEGATIVE [facility] Comment on above: Performed By: #### O BSCRN #### [facility] [address] [address] [address] Win Ardon PROF 14(COMP METB)on 023 Albumin [Mass/Vol] 3.8 g/dL Normal 3.4-5.0 [facility] Comment on above: Performed By: #### C MP ####[facility] [address] [place] [id number] Ardon Albumin/Globulin [Mass ratio] 1.1 {ratio} Normal [facility] Comment on above: Performed By: #### C MP ####[facility] [address]eg[address]myh[address] [place] [id number] Ardon ALP [Catalytic activity/Vol] 99 U/L Normal 46-116 [facility] Comment on above: Performed By: #### C MP ####[facility] Wpczrxswkr45[address] [place] [id number] Ardon ALT [Catalytic activity/Vol] 17 U/L Normal 14-59 [facility] Comment on above: Performed By: #### C MP ####[facility] Xqqwhhlkvo54[address] [place] [address]DrOtilia Ardon Anion gap [Moles/Vol] 13.4 mmol/L Normal [facility] Comment on above: Performed By: #### C MP ####[facility] Esydtduywt[address] [place] [address]Dr. Win Ardon AST [Catalytic activity/Vol] 11 U/L Critically low 15-37 [facility] Comment on above: Performed By: #### C MP ####[facility] Yhigfsfeht[address] [place], [place] [address]Dr. Claudiaaida Duglas Bilirubin [Mass/Vol] 0.6 mg/dL Normal 0.2-1.0 [facility] Comment on above: Performed By: #### C MP ####[facility] Rbpagvmvid[address] [place], [place] [address]Dr. Win Ardon Calcium [Mass/Vol] 9.1 mg/dL Normal 8.5-10.1 [facility] Comment on above: Performed By: #### C MP ####[facility] Zocciywvns[address] [place], [place] [address]Dr. Win Ardon Chloride [Moles/Vol] 106 mmol/L Normal 98-107 [facility] Comment on above: Performed By: #### C MP ####[facility] Gqonfinybq[address] [place], [place] [address]Dr. Claudiaaida Ardon CO2 [Moles/Vol] 29.2 mmol/L Normal 21.0-32.0 [facility] Comment on above: Performed By: #### C MP ####[facility] Omhmpbgfou[address] [place], [place] [address]Dr. Win Ardon Creatinine [Mass/Vol] 0.95 mg/dL Normal 0.55-1.02 [facility] Comment on above: Performed By: #### C MP ####[facility] Pskitenyob[address] [place], [place] [address]Dr. Win Ardon EGFR-AF GABONESE >60 Normal >=60 [facility] Comment on above: Performed By: #### C MP ####[facility] Kir[address]aftgrq[address] [place] [address]Dr. Win Ardon EGFR-NON AF GABONESE 59 mL/min/1.73m2 Critically low >=60 [facility] Comment on above: Performed By: #### C MP ####[facility] Fowfqobbqi32[address] [place] [address]Dr. Win Ardon Globulin (S) [Mass/Vol] 3.4 g/dL Normal [facility] Comment on above: Performed By: #### C MP ####[facility] Uhprzqbvju61[address] [place] [address]Dr. Win Ardon Glucose [Mass/Vol] 162 mg/dL Critically high 74-106 [facility] Comment on above: Performed By: #### C MP ####[facility] Fbbggjhmab5[address] [place] [address]Dr. Win Ardon Potassium [Moles/Vol] 3.6 mmol/L Normal 3.5-5.1 [facility] Comment on above: Performed By: #### C MP ####[facility] Grcvbrrmad[address] [place], [place] [address]Dr. Win Ardon Protein [Mass/Vol] 7.2 g/dL Normal 6.4-8.2 [facility] Comment on above: Performed By: #### C MP ####[facility] Iorkulctuq[address] [place], [place] [address]Dr. Win Ardon Sodium [Moles/Vol] 145 mmol/L Normal 136-145 [facility] Comment on above: Performed By: #### C MP ####[facility] Usoqpdnapx8[address] [place] [address]Dr. Win Ardon Urea nitrogen [Mass/Vol] 14.0 mg/dL Normal 7.0-18.0 [facility] Comment on above: Performed By: #### C MP ####[facility] Ecdgerwize[address] [place], [place] [address]Dr. Win Ardon Urea nitrogen/Creatinine [Mass ratio] 14.7 mg/mg Normal [facility] Comment on above: Performed By: #### C MP ####[facility] Ratgublqny[address] [place], [place] [address]Dr. Win Duglas PROTIMEon 04-01-2023 INR Coag (PPP) [Relative time] 1.02 {INR} Normal [facility] Comment on above: Performed By: #### P TT, PT ####[facility] Coibfrbjre[address] [place], [place] [address]Dr. Win Ardon INR GUIDELINES SEE BELOW Normal [facility] Comment on above: Result Comment: MAGDA RED INR: 2.0 - 3.0 CONDITIONS NOT LISTED BELOW 2.5 - 3.5 FOR PROSTHETIC HEART VALVE REPLACEMENT 2.5 - 3.5 RECURRENT THROMBOSIS Performed By: #### P TT, PT ####[facility] Wymgrpqdwk[address] [place], [place] [address]Dr. Win Ardon PT Coag (PPP) [Time] 10.8 s Normal 9.0-11.6 [facility] Comment on above: Performed By: #### P TT, PT ####[facility] Wvmxjszjat[address] [place], [place] [address]Dr. Win Ardon PTTon 04-01-2023 aPTT Coag (Bld) [Time] 26.5 s Normal 22.3-36.2 [facility] Comment on above: Performed By: #### P TT, PT ####[facility] Kypnjkrwmm[address] [place], [place] [address]Dr. Win Ardon TYPE AND SCREENon 04-01-2023 TYPE AND SCREEN Negative Normal [facility] Comment on above: Performed By: #### T NS ####[facility] Ataacpeqsp[address] [place], [place] [address]Dr. Win Ardon CBC AUTO DIFFon 03-24-2023 BASO # 0.1 103/ul Normal 0.0-0.1 [facility] Comment on above: Performed By: #### C BC ####[facility] Ljtjnfmpoz[address] [place], [place] [address]Dr. Win Ardon Basophils/100 WBC (Bld) 1.0 % Normal 0.2-2.0 [facility] Comment on above: Performed By: #### C BC ####[facility] Qwquncmqkx[address] [place], [place] [address]Dr. Win Ardon EO # 0.3 103/ul Normal 0.0-0.7 [facility] Comment on above: Performed By: #### C BC ####[facility] Gofxqdanww0[address] [place] [address]Dr. Win Ardon Eosinophils/100 WBC (Bld) 3.3 % Normal 0.9-7.0 [facility] Comment on above: Performed By: #### C BC ####[facility] Fiyanqbnnf[address] [place], [place] [address]Dr. Win Ardon Erythrocyte distribution width (RBC) [Ratio] 13.2 % Normal 11.0-15.0 [facility] Comment on above: Performed By: #### C BC ####[facility] Qjpxollekk[address] [place], [place] [address]Dr. Win Ardon Hematocrit (Bld) [Volume fraction] 41.3 % Normal 36.0-48.0 [facility] Comment on above: Performed By: #### C BC ####[facility] Acgyolceow[address] [place], [place] [address]Dr. Win Ardon Hemoglobin (Bld) [Mass/Vol] 13.6 g/dL Normal 12.0-16.0 [facility] Comment on above: Performed By: #### C BC ####[facility] Qufobjqgkl[address] [place], [place] [address]Dr. Win Ardon IG # 0.04 10e3/ul Critically high 0.00-0.03 [facility] Comment on above: Performed By: #### C BC ####[facility] Fffeppvuxm[address] [place], [place] [address]Dr. Win Ardon IG % 0.4 % Normal 0.0-0.5 [facility] Comment on above: Performed By: #### C BC ####[facility] Xycxtofnih[address] [place], [place] [address]Dr. Win Ardon LYMPH # 2.2 103/ul Normal 1.2-3.8 [facility] Comment on above: Performed By: #### C BC ####[facility] Bumfwhlh[address] [place], [place] [address]Dr. Win Ardon Lymphocytes/100 WBC (Bld) 23.8 % Normal 20.5-60.0 [facility] Comment on above: Performed By: #### C BC ####[facility] Xjjpozebjq[address] [place] [address]Dr. Win Ardon MANUAL DIFF REQ NO Normal [facility] Comment on above: Performed By: #### C BC ####[facility] [address]mlocljehh[address] [place] [address]Dr. Win Ardon MCH (RBC) [Entitic mass] 30.6 pg Normal 26.7-34.0 [facility] Comment on above: Performed By: #### C BC ####[facility] Gvqkuyypjt34[address] [place] [address]Dr. Win Ardon MCHC (RBC) [Mass/Vol] 32.9 g/dL Normal 29.9-35.2 [facility] Comment on above: Performed By: #### C BC ####[facility] Yqvywcfeeh[address] [place], [place] [address]Dr. Win Ardon MCV (RBC) [Entitic vol] 93.0 fL Normal 81.0-99.0 [facility] Comment on above: Performed By: #### C BC ####[facility] Hdvpmpywfu[address] [place], [place] [address]Dr. Win Ardon MONO # 0.7 103/ul Normal 0.3-0.8 [facility] Comment on above: Performed By: #### C BC ####[facility] Hkcxxdyril[address] [place], [place] [address]Dr. Win Ardon Monocytes/100 WBC (Bld) 7.3 % Normal 1.7-12.0 [facility] Comment on above: Performed By: #### C BC ####[facility] X[address]fztqdft[address] [place], [place] [address]Dr. Win Ardon NEUT # 5.8 103/ul Normal 1.4-6.5 [facility] Comment on above: Performed By: #### C BC ####[facility] Qgjewnrczw[address] [place], [place] [address]Dr. Win Ardon Neutrophils/100 WBC (Bld) 64.2 % Normal 43.0-75.0 [facility] Comment on above: Performed By: #### C BC ####[facility] [address]ke[address]uc[address] [place], [place] [address]Df. Win Ardon Platelet mean volume (Bld) [Entitic vol] 11.0 fL Normal 9.5-13.5 [facility] Comment on above: Performed By: #### C BC ####[facility] [address]klxed[address] [place] [address]Dr. Win Ardon PLT 243 103/ul Normal 150-450 [facility] Comment on above: Performed By: #### C BC ####[facility] [address]pcbtoq[address] [place] [address]Dr. Wni Ardon RBC 4.44 106/ul Normal 4.20-5.40 [facility] Comment on above: Performed By: #### C BC ####[facility] [address]crrqzihqw90[address] [place] [address]Dr. Win Ardon WBC 9.1 103/ul Normal 4.0-11.0 [facility] Comment on above: Performed By: #### C BC ####[facility] [address]lydnrlpvl74[address] [place] [address]Dr. Win Ardon LIPID PROFILEon 03-24-2023 CHOL-HDL RATIO NORM SEE BELOW Normal [facility] Comment on above: Result Comment: 3.3 - 4.4 LOW RISK 4.4 - 7.1 AVERAGE RISK 7.1 - 11.0 MODERATE RISK >11.0 HIGH RISK Performed By: #### C MP, LIPID #### [facility] [address] [address] [address] Win Ardon Cholesterol [Mass/Vol] 99 mg/dL Normal <=200 [facility] Comment on above: Performed By: #### C MP, LIPID #### [facility] [address] [address] [address] Win Ardon Cholesterol in HDL [Mass/Vol] 34 mg/dL Critically low 40-60 [facility] Comment on above: Performed By: #### C MP, LIPID #### [facility] [address] [address] [address] Win Ardon Cholesterol in LDL [Mass/Vol] 35.8 mg/dL Normal [facility] Comment on above: Performed By: #### C MP, LIPID #### [facility] [address] [place] [address] Dr. Win Ardon Cholesterol.total/Ch olesterol in HDL [Mass ratio] 2.9 {ratio} Normal [facility] Comment on above: Performed By: #### C MP, LIPID #### [facility] [address] [address] [address] Win Ardon HDL NORMAL > or = 60 mg/dl - LO W CARDIOVASCULAR RISK <40 mg/dl - HIGH CARDIOVASCULAR RISK Normal [facility] Comment on above: Performed By: #### C MP, LIPID #### [facility] [address] [place] [address] Dr. Win Ardon LDL CALC NORMAL SEE BELOW Normal [facility] Comment on above: Result Comment: <100 mg/dl OPTIMAL 100 - 129 mg/dl NEAR OR ABOVE OPTIMAL 130 - 159 mg/dl BORDERLINE HIGH 160 - 189 mg/dl HIGH >190 mg/dl VERY HIGH Performed By: #### C MP, LIPID #### [facility] [address] [place] [address] Dr. Win Ardon Triglyceride [Mass/Vol] 146 mg/dL Normal <=150 [facility] Comment on above: Performed By: #### C MP, LIPID #### [facility] [address] [place] [address] Dr. Win Ardon VLDL CALC 29.2 mg/dL Normal [facility] Comment on above: Performed By: #### C MP, LIPID #### [facility] [address] [place] [address] Dr. Win Ardon PROF 14(COMP METB)on 023 Albumin [Mass/Vol] 3.9 g/dL Normal 3.4-5.0 [facility] Comment on above: Performed By: #### C MP, LIPID #### [facility] [address] [place] [address] Dr. Win Ardon Albumin/Globulin [Mass ratio] 1.1 {ratio} Normal [facility] Comment on above: Performed By: #### C MP, LIPID #### [facility] [address] [address] [address] Win Ardon ALP [Catalytic activity/Vol] 96 U/L Normal 46-116 [facility] Comment on above: Performed By: #### C MP, LIPID #### [facility] [address] [address] [address] Win Ardon ALT [Catalytic activity/Vol] 15 U/L Normal 14-59 [facility] Comment on above: Performed By: #### C MP, LIPID #### [facility] [address] [address] [address] Win Ardon Anion gap [Moles/Vol] 12.1 mmol/L Normal [facility] Comment on above: Performed By: #### C MP, LIPID #### [facility] [address] [place] [address] Dr. Win Ardon AST [Catalytic activity/Vol] 10 U/L Critically low 15-37 [facility] Comment on above: Performed By: #### C MP, LIPID #### [facility] [address] [address] [address] Win Ardon Bilirubin [Mass/Vol] 0.8 mg/dL Normal 0.2-1.0 [facility] Comment on above: Performed By: #### C MP, LIPID #### [facility] [address] [address] [address] Win Ardon Calcium [Mass/Vol] 9.1 mg/dL Normal 8.5-10.1 [facility] Comment on above: Performed By: #### C MP, LIPID #### [facility] [address] [address] [address] Win Ardon Chloride [Moles/Vol] 102 mmol/L Normal 98-107 [facility] Comment on above: Performed By: #### C MP, LIPID #### [facility] [address] [address] [address] Win Ardon CO2 [Moles/Vol] 26.0 mmol/L Normal 21.0-32.0 [facility] Comment on above: Performed By: #### C MP, LIPID #### [facility] [address] [address] [address] Win Ardon Creatinine [Mass/Vol] 0.95 mg/dL Normal 0.55-1.02 [facility] Comment on above: Performed By: #### C MP, LIPID #### [facility] [address] [address] [address] Win Ardon EGFR-AF GABONESE >60 Normal >=60 [facility] Comment on above: Performed By: #### C MP, LIPID #### [facility] [address] [address] [address] Win Ardon EGFR-NON AF GABONESE 59 mL/min/1.73m2 Critically low >=60 [facility] Comment on above: Performed By: #### C MP, LIPID #### [facility] [address] [address] [address] Win Ardon Globulin (S) [Mass/Vol] 3.7 g/dL Normal [facility] Comment on above: Performed By: #### C MP, LIPID #### [facility] [address] [address] [address] Win Ardon Glucose [Mass/Vol] 336 mg/dL Critically high 74-106 [facility] Comment on above: Performed By: #### C MP, LIPID #### [facility] [address] [address] [address] Win Ardon Potassium [Moles/Vol] 4.1 mmol/L Normal 3.5-5.1 [facility] Comment on above: Performed By: #### C MP, LIPID #### [facility] [address] [address] [address] Win Ardon Protein [Mass/Vol] 7.6 g/dL Normal 6.4-8.2 [facility] Comment on above: Performed By: #### C MP, LIPID #### [facility] [address] [address] [address] Win Ardon Sodium [Moles/Vol] 136 mmol/L Normal 136-145 [facility] Comment on above: Performed By: #### C MP, LIPID #### [facility] [address] [place], [place] [address] Dr. Win Ardon Urea nitrogen [Mass/Vol] 10.0 mg/dL Normal 7.0-18.0 [facility] Comment on above: Performed By: #### C MP, LIPID #### [facility] [address] [place], [place] [address] Dr. Win Ardon Urea nitrogen/Creatinine [Mass ratio] 10.5 mg/mg Normal [facility] Comment on above: Performed By: #### C MP, LIPID #### [facility] [address] [place], [place] [address] Dr. Win Ardon CHEMISTRYOrdered By: Lab ROP User on 02-24-2023 Glucose [Mass/Vol] 144 mg/dL High 55 - 99 mg/dL [facility] POC Subsection Comment on above: Result Comment: Edilia arleth Meter POC Device SN [id number] Invalid Interpretation Code [facility] POC Subsection POC User ID [id number] Invalid Interpretation Code [facility] POC Subsection POC Username KRISTI MADDEN Invalid Interpretation Code [facility] POC Subsection Glucose [Mass/Vol] 76 mg/dL Normal 55 - 99 mg/dL [facility] POC Subsection Comment on above: Result Comment: Edilia arleth Meter POC Device SN [id number] Invalid Interpretation Code [facility] POC Subsection POC User ID [id number] Invalid Interpretation Code [facility] POC Subsection POC Username KRISTI MADDEN Invalid Interpretation Code [facility] POC Subsection CHEMISTRYOrdered By: SYSTEM SYSTEM on [...] 55 mL/min/1.73 m2 Low >=59mL/min /1.73 m2 [facility] Chem S GFR/1.73 sq M.predicted among non-blacks MDRD (S/P/Bld) [Vol rate/Area] 45 mL/min/1.73 m2 Low >=59mL/min /1.73 m2 [facility] Chem S Glucose [Mass/Vol] 102 [...] [iU]/d Normal 5 - 43 Int._Unit/ L [facility] Remisol Bilirubin [Mass/Vol] 1.1 mg/dL Normal 0.0 [...] 46 mL/min/1.73 m2 Low >=59mL/min /1.73 m2 [facility] Chem S GFR/1.73 sq M.predicted among non-blacks MDRD (S/P/Bld) [Vol rate/Area] 38 mL/min/1.73 m2 Low >=59mL/min /1.73 m2 [facility] Chem S Globulin (S) [Mass/Vol] 2.8 g/dL [...] 10 - 20 [facility] Remisol COAGULATIONOrdered By: Allis on Alice on 02-24-2023 [...] - 7.5 E9/L [facility] HemeAutoSS HEMATOLOGYOrdered By: Alliso n Alice on 02-24-2023 Erythrocyte distribution width [...] Interpretation Code Negative [facility] UA Auto SS [place].plasma/Lithi um.RBC (Bld) [Mass ratio] 21-30 /HPF Invalid [...] [facility] UA Auto SS Urobilinogen Qn (U) 0.0865085 {John'U}/dL Normal 0.0 - 1.0 EU/dL [facility] UA Auto SS WBC Auto Ql (U) Trace *ABN* (02/24/23 2:06 AM) Invalid Interpretation Code Negative [facility] UA Auto SS WBC casts LM.LPF (Urine sed) [#/Area] 4-10 (02/24/23 2:06 AM) Normal [facility] UA Auto SS WBC LM.HPF (Urine sed) [#/Area] 0-5 /HPF Normal 0-5/HPF [facility] UA Auto SS Covid-19 PCR ([facility])on 01-17 SARS-CoV-2 (COVID-19) RNA OSVALDO+probe Ql (Unsp spec) Not detected Normal NOT DETECTED [facility] Comment on above: Result Comment: This test is not yet approved or cleared by the [place] FDA. When there are no FDA-approved or cleared tests available, and other criteria are met, FDA can make tests available under an emergency access mechanism called an Emergency Use Authorization (EUA). The EUA for this test is supported by the [place] of Health and Human Service's (HHS's) declaration [...] SARS-CoV-2. Performed By: #### C VDTB #### [facility] [address] [place] [address] Dr. Win Ardon SYMPTOMATIC COVID-19 ANTIGEN on 02-14-2023 EUA Statement SEE BELOW Normal [facility] Comment on above: Result Comment: [...] sooner. Performed By: #### C VDAGS #### [facility] [address] [place] [address] [address] [address] Win Ardon SARS-CoV-2 (COVID-19) RNA OSVALDO+probe Ql (Unsp spec) Negative Normal NEGATIVE [facility] Comment on above: Performed By: #### C VDAGS #### [facility] [address] [place], [place] [address] Dr. Win Ardon XR KNEE RT 4V [...] MIKAEL GUZMAN Date: 2022-10-05 19:58 Normal [facility] Creatinine (Bld) [Mass/Vol]O rdered By: Ese Tan on 02-18-2022 Creatinine [Mass/Vol] 0.8 mg/dL 0.6-1.3 [facility] Comment on above: ER/ESD physician is notified/shown all ISTAT results.Critical values may be confirmed by laboratory testing ifdeemed necessary by ER attending doctor. No Panel InformationOrdered By: Ese Tan on 02-18-2022 POC Estimated GFR > 60 [facility] Comment on above: GFR estimated refere nce range: According to KDOQI guidelines, <60 ml/min/1.73m2 is sufficient to diagnose a patient with chronic kidney disease. POC Estimated GFR Non- Amer > 60 [facility] Cardiovascular Lab Reporton 03-22-2021 Cardiovascular Lab Report [facility] Patient Name: [facility]ita [facility] Jessi Cooper MR #: [id number] Department of Physician: Radha Carter M.D. Division of Service Date: 03/21/2021 Cardiology Birthdate: 1955 Adult Cardiovascular Room #: [place] [address] Cardiovascular Laboratory Report FINAL IMPRESSIONS: 1. 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 2. Patent stent in the second diagonal branch of the left anterior descending coronary artery with uxvj-sa-kffithty in-stent restenosis. 3. Otherwise, nonobstructive coronary arteries [...] as appropriate. 4. Follow up with Alexia Miranda, certified nurse practitioner as scheduled. 5. Follow up with Dr. Robin Ponce as scheduled. PROCEDURES: Ultrasound-guided access to the right common femoral artery and right common femoral vein, right heart catheterization, bilateral selective coronary angiography, placement of a 6-Cameroonian MynxGrip closure device. METHODS: After risks, benefits, and alternatives were explained, written informed consent was obtained. The patient was prepped and draped in the usual sterile fashion over the right groin. Using 1% lidocaine solution, local infiltration anesthesia was achieved. Using a modified Seldinger technique, a micropuncture kit, an ultrasound guidance access to the right common femoral vein and artery was obtained. A 6-Cameroonian x 11 cm sheath were placed in each. Limited femoral angiography was performed via the micropuncture kit prior to upsizing through the 6-Cameroonian sheath in the artery. A Cazares catheter [...] the procedure. All catheters were removed. A 6-Cameroonian MynxGrip closure device was deployed per protocol [...] Pardo M.D. Date Trans: 03/22/2021 05:11 A/yoel [id number] cc: Alexia Miranda, MSN, BEAM SEALER-C Department Of Surgery [address] [facility] [address] Robin Ponce M.D. [address] [place] [facility] [id number] Normal [facility] Basic Metab w/rfx MGon 09-01 (cont.) Normal [facility] Comment on above: Result Comment: Aver age GFR for 60-69 years old: 85 mL/min/1.73sq m Chronic Kidney Disease: <60 mL/min/1.73sq m Kidney failure: <15 mL/min/1.73sq m eGFR calculated using average adult body mass. Additional eGFR calculator available at: http://www.Rockabox.Folloyu/multiple_crcl_2012.htm Performed By: #### E RTPF #### [place] [id number] Oyster Cultivator: Dheeraj Garcia MD Anion gap [Moles/Vol] 13 mmol/L Normal 9-17 [facility] Comment on above: Performed By: #### E RTPF #### [address] [address] Oyster Cultivator: Dheeraj Garcia MD Calcium [Mass/Vol] 8.8 mg/dL Normal 8.6-10.4 [facility] Comment on above: Performed By: #### E RTPF #### [address] [address] Oyster Cultivator: Dheeraj Garcia MD Chloride [Moles/Vol] 106 mmol/L Normal 98-107 [facility] Comment on above: Performed By: #### E RTPF #### [address] [address] Oyster Cultivator: Dheeraj Garcia MD CO2 [Moles/Vol] 21 mmol/L Normal 20-31 [facility] Comment on above: Performed By: #### E RTPF #### [address] [address] Oyster Cultivator: Dheeraj Garcia MD Creatinine [Mass/Vol] 0.53 mg/dL Normal 0.50-0.90 [facility] Comment on above: Performed By: #### E RTPF #### [address] [address] Oyster Cultivator: Dheeraj Garcia MD GFR, Amer >60 Normal >60 [facility] Comment on above: Performed By: #### E RTPF #### [address] [address] Oyster Cultivator: Dheeraj Garcia MD GFR,non Amer >60 Normal >60 [facility] Comment on above: Performed By: #### E RTPF #### [address] [place] [address] Oyster Cultivator: Dheeraj Garcia MD Glucose [Mass/Vol] 169 mg/dL High 70-99 [facility] Comment on above: Performed By: #### E RTPF #### [address] [address] Oyster Cultivator: Dheeraj Garcia MD Potassium [Moles/Vol] 4.0 mmol/L Normal 3.7-5.3 [facility] Comment on above: Performed By: #### E RTPF #### [address] [address] Oyster Cultivator: Dheeraj Garcia MD Sodium [Moles/Vol] 140 mmol/L Normal 135-144 [facility] Comment on above: Performed By: #### E RTPF #### [address] [address] Oyster Cultivator: Dheeraj Garcia MD Urea nitrogen [Mass/Vol] 10 mg/dL Normal 8-23 [facility] Comment on above: Performed By: #### E RTPF #### [address] [address] Oyster Cultivator: Dheeraj Garcia MD BUN/CRE Ratio NOT REPORTED Normal 9-20 [facility] Comment on above: Performed By: #### E RTPF #### [address] [address] Oyster Cultivator: Dheeraj Garcia MD Staging: NOT REPORTED Normal [facility] Comment on above: Performed By: #### E RTPF #### [address] [address] Oyster Cultivator: Dheeraj Garcia MD Basic Metabolic Panel w/ Ref martín to MGon 09-01-2020 Anion gap [Moles/Vol] 13 mmol/L 9 - 17 mmol/L [facility], [place] Bun/Cre Ratio NOT REPORTED [place] Calcium [Mass/Vol] 8.8 mg/dL 8.6 - 10. 4 mg/dL [place] Chloride [Moles/Vol] 106 mmol/L 98 - 10 7 mmol/L [place] CO2 [Moles/Vol] 21 mmol/L 20 - 31 mmol/L [place] Creatinine [Mass/Vol] 0.53 mg/dL 0.5 - 0.9 mg/dL [place] GFR >60 >60 mL/min [place] GFR Non- >60 >60 mL/min [place] GFR/1.73 sq M predicted among non-blacks MDRD (S/P/Bld) [Vol rate/Area] [place] Comment on above: Average GFR for 60-6 9 years old: 85 mL/min/1.73sq m Chronic Kidney Disease: <60 mL/min/1.73sq m Kidney failure: <15 mL/min/1.73sq m eGFR calculated using average adult body mass. Additional eGFR calculator available at: http://www.Nutrabolt/multiple_crcl_2012.htm GFR/1.73 sq M predicted among non-blacks MDRD (S/P/Bld) [Vol rate/Area] NOT REPORTED [place] Glucose [Mass/Vol] 169 mg/dL High 70 - 99 mg/dL [place] Interpretation and review of laboratory results Abnormal [place] Potassium [Moles/Vol] 4.0 mmol/L 3.7 - 5.3 mmol/L [place] Sodium [Moles/Vol] 140 mmol/L 135 - 144 mmol/L [place] Urea nitrogen [Mass/Vol] 10 mg/dL 8 - 23 mg/dL [place] CBC auto differentialon 08-17 Basophils (Bld) [#/Vol] 0.10 10*3/uL [place] Basophils/100 WBC (Bld) 1 % 0 - 2 % [place] Differential Type NOT REPORTED [place] Eosinophils (Bld) [#/Vol] 0.25 10*3/uL [place] Eosinophils/100 WBC (Bld) 3 % 1 - 4 % [place] Erythrocyte distribution width (RBC) [Ratio] 14.0 % 11.8 - 14.4 % [place] Hematocrit (Bld) [Volume fraction] 40.7 % 36.3 - 47.1 % [place] Hemoglobin (Bld) [Mass/Vol] 12.7 g/dL 11.9 - 15.1 g/dL [place] Immature granulocytes (Bld) [#/Vol] 0.06 10*3/uL [place] Immature granulocytes (Bld) [#/Vol] 1 % High 0 [place] Interpretation and review of laboratory results Abnormal [place] Lymphocytes (Bld) [#/Vol] 2.12 10*3/uL [place] Lymphocytes/100 WBC (Bld) 23 % Low 24 - 43 % [place] MCH (RBC) [Entitic mass] 28.1 pg 25.2 - 33.5 pg [place] MCHC (RBC) [Mass/Vol] 31.2 g/dL 28.4 - 34.8 g/dL [place] MCV (RBC) [Entitic vol] 90.0 fL 82.6 - 102.9 fL [place] Monocytes (Bld) [#/Vol] 0.68 10*3/uL [place] Monocytes/100 WBC (Bld) 7 % 3 - 12 % [place] Platelet mean volume (Bld) [Entitic vol] 10.6 fL 8.1 - 13.5 fL [place] Platelets (Bld) [#/Vol] NOT REPORTED [place] Platelets (Bld) [#/Vol] 251 10*3/uL [place] RBC (Bld) [#/Vol] 4.52 10*6/uL 3.95 - 5.11 m/uL [place] RBC morphology finding Nom (Bld) NOT REPORTED [place] Segmented neutrophils/100 WBC (Bld) 65 % 36 - 65 % [place] Segs Absolute 6.18 [place] WBC (Bld) [#/Vol] 0.0 10*3/uL 0.0 per 100 WBC [place] WBC (Bld) [#/Vol] 9.4 10*3/uL [place] WBC Morphology NOT REPORTED [place] CBC with Diffon 09-01-2020 Abs. Basophil 0.10 k/uL Normal 0.00-0.20 [facility] Comment on above: Performed By: #### C DP, HCG, ALCB, BMPX, LIPR, GLYHGB #### [address] [address] Oyster Cultivator: Dheeraj Garcia MD Abs.Imm.Granulocyte 0.06 k/uL Normal 0.00-0.30 [facility] Comment on above: Performed By: #### C DP, HCG, ALCB, BMPX, LIPR, GLYHGB #### [facility] [employer] [address] [place] [address] [id number] Oyster Cultivator: Dheeraj Garcia MD Abs.Neutrophil (Seg) 6.18 k/uL Normal 1.50-8.10 [facility] Comment on above: Performed By: #### C DP, HCG, ALCB, BMPX, LIPR, GLYHGB #### [facility] [employer] [address] [place] [address] Oyster Cultivator: Dheeraj Garcia MD Basophils/100 WBC (Bld) 1 % Normal 0-2 [facility] Comment on above: Performed By: #### C DP, HCG, ALCB, BMPX, LIPR, GLYHGB #### [address] [id number] Oyster Cultivator: Dheeraj Garcia MD Eosinophils (Bld) [#/Vol] 0.25 10*3/uL Normal 0.00-0.44 [facility] Comment on above: Performed By: #### C DP, HCG, ALCB, BMPX, LIPR, GLYHGB #### [address] [address] Oyster Cultivator: Dheeraj Garcia MD Eosinophils/100 WBC (Bld) 3 % Normal 1-4 [facility] Comment on above: Performed By: #### C DP, HCG, ALCB, BMPX, LIPR, GLYHGB #### [place] [address] Oyster Cultivator: Dheeraj Garcia MD Erythrocyte distribution width (RBC) [Ratio] 14.0 % Normal 11.8-14.4 [facility] Comment on above: Performed By: #### C DP, HCG, ALCB, BMPX, LIPR, GLYHGB #### [place] [address] Oyster Cultivator: Dheeraj Garcia MD Hematocrit (Bld) [Volume fraction] 40.7 % Normal 36.3-47.1 [facility] Comment on above: Performed By: #### C DP, HCG, ALCB, BMPX, LIPR, GLYHGB #### [place] [address] Oyster Cultivator: Dheeraj Garcia MD Hemoglobin (Bld) [Mass/Vol] 12.7 g/dL Normal 11.9-15.1 [facility] Comment on above: Performed By: #### C DP, HCG, ALCB, BMPX, LIPR, GLYHGB #### [place] [address] Oyster Cultivator: Dheeraj Garcia MD Immature granulocytes (Bld) [#/Vol] 1 % High 0 [facility] Comment on above: Performed By: #### C DP, HCG, ALCB, BMPX, LIPR, GLYHGB #### [address] [address] Oyster Cultivator: Dheeraj Garcia MD Lymphocytes (Bld) [#/Vol] 2.12 10*3/uL Normal 1.10-3.70 [facility] Comment on above: Performed By: #### C DP, HCG, ALCB, BMPX, LIPR, GLYHGB #### [address] [address] Oyster Cultivator: Dheeraj Garcia MD Lymphocytes/100 WBC (Bld) 23 % Low 24-43 [facility] Comment on above: Performed By: #### C DP, HCG, ALCB, BMPX, LIPR, GLYHGB #### [address] [address] Oyster Cultivator: Dheeraj Garcia MD MCH (RBC) [Entitic mass] 28.1 pg Normal 25.2-33.5 [facility] Comment on above: Performed By: #### C DP, HCG, ALCB, BMPX, LIPR, GLYHGB #### [address] [address] Oyster Cultivator: Dheeraj Garcia MD MCHC (RBC) [Mass/Vol] 31.2 g/dL Normal 28.4-34.8 [facility] Comment on above: Performed By: #### C DP, HCG, ALCB, BMPX, LIPR, GLYHGB #### [address] [address] Oyster Cultivator: Dheeraj Garcia MD MCV (RBC) [Entitic vol] 90.0 fL Normal 82.6-102.9 [facility] Comment on above: Performed By: #### C DP, HCG, ALCB, BMPX, LIPR, GLYHGB #### [address] [address] Oyster Cultivator: Dheeraj Garcia MD Monocytes (Bld) [#/Vol] 0.68 10*3/uL Normal 0.10-1.20 [facility] Comment on above: Performed By: #### C DP, HCG, ALCB, BMPX, LIPR, GLYHGB #### [address] [address] Oyster Cultivator: Dheeraj Garcia MD Monocytes/100 WBC (Bld) 7 % Normal 3-12 [facility] Comment on above: Performed By: #### C DP, HCG, ALCB, BMPX, LIPR, GLYHGB #### [address] [address] Oyster Cultivator: Dheeraj Garcia MD Neutrophil (Seg) 65 % Normal 36-65 [facility] Comment on above: Performed By: #### C DP, HCG, ALCB, BMPX, LIPR, GLYHGB #### [place] [address] Oyster Cultivator: Dheeraj Garcia MD NRBC Automated 0.0 per 100 WBC Normal 0.0 [facility] Comment on above: Performed By: #### C DP, HCG, ALCB, BMPX, LIPR, GLYHGB #### [address] [address] Oyster Cultivator: Dheeraj Garcia MD Platelet mean volume (Bld) [Entitic vol] 10.6 fL Normal 8.1-13.5 [facility] Comment on above: Performed By: #### C DP, HCG, ALCB, BMPX, LIPR, GLYHGB #### [address] [address] Oyster Cultivator: Dheeraj Garcia MD Platelets (Bld) [#/Vol] 251 10*3/uL Normal 138-453 [facility] Comment on above: Performed By: #### C DP, HCG, ALCB, BMPX, LIPR, GLYHGB #### [address] [address] Oyster Cultivator: Dheeraj Garcia MD RBC (Bld) [#/Vol] 4.52 10*6/uL Normal 3.95-5.11 [facility] Comment on above: Performed By: #### C DP, HCG, ALCB, BMPX, LIPR, GLYHGB #### [address] [address] Oyster Cultivator: Dheeraj Garcia MD WBC (Bld) [#/Vol] 9.4 10*3/uL Normal 3.5-11.3 [facility] Comment on above: Performed By: #### C DP, HCG, ALCB, BMPX, LIPR, GLYHGB #### [address] [address] Oyster Cultivator: Dheeraj Garcia MD Auto Diff Performed NOT REPORTED Normal [facility] Comment on above: Performed By: #### C DP, HCG, ALCB, BMPX, LIPR, GLYHGB #### [address] [address] Oyster Cultivator: Dheeraj Garcia MD Platelets (Bld) [#/Vol] NOT REPORTED Normal [facility] Comment on above: Performed By: #### C DP, HCG, ALCB, BMPX, LIPR, GLYHGB #### [address] [address] Oyster Cultivator: Dheeraj Garcia MD RBC morphology finding Nom (Bld) NOT REPORTED Normal [facility] Comment on above: Performed By: #### C DP, HCG, ALCB, BMPX, LIPR, GLYHGB #### [address] [address] Oyster Cultivator: Dheeraj Garcia MD WBC Morphology NOT REPORTED Normal [facility] Comment on above: Performed By: #### C DP, HCG, ALCB, BMPX, LIPR, GLYHGB #### [employer] [address] [place] [address] Oyster Cultivator: Dheeraj Garcia MD Echo Completeon 09-01-2020 [place], pn Incoming C ardio Results From Cp[facility]/Ge - 09/01/2020 3:37 PM EDT Transthoracic Echocardiography Report (TTE) Patient Name MARGARITA Date of Study 09/01/2020 JESSI Date of 1955 Gender Female Age 64 year(s) Race Room Number 0234 Height: 65 inch, 165.1 cm Corporate ID [id number] Weight: 232 pounds, 105.2 kg # Patient Acct [id number] BSA: 2.11 m^2 BMI: 38.61 # kg/m^2 MR # [id number] Clinical Psychology Professor Pérez Lao Interpreting Physician Abundio Aguilar Fellow Referring Nurse Practitioner Interpreting Referring Physician Moisés Rodríguez Fellow Type of Study TTE procedure:2D Echocardiogram, M-Mode, Doppler, Color Doppler, Bubble Study. Procedure Date Date: 09/01/2020 Start: 07:38 AM Study Location: [facility] Technical Quality: Fair visualization Comments:Syncope, [...] Wall E' velocity:0.07 m/s Lateral Wall E/E':8.8 [place] Transthoracic Echocardiography Report (TTE) Patient Name DENDINGER Date of Study 09/01/2020 JESSI Date of 1955 Gender Female Age 64 year(s) Race Room Number 0234 Height: 65 inch, 165.1 cm Corporate ID [id number] Weight: 232 pounds, 105.2 kg # Patient Acct [id number] BSA: 2.11 m^2 BMI: 38.61 # kg/m^2 MR # [id number] Clinical Psychology Professor GarfieldRimmaPérez Interpreting Physician Abundio Aguilar Fellow Referring Nurse Practitioner Interpreting Referring Physician Moisés Rodríguez Fellow Type of Study TTE procedure:2D Echocardiogram, M-Mode, Doppler, Color Doppler, Bubble Study. Procedure Date Date: 09/01/2020 Start: 07:38 AM Study Location: [facility] Technical Quality: Fair visualization Comments:Syncope, [...] Wall E' velocity:0.07 m/s Lateral Wall E/E':8.8 [place] Ethanolon 09-01-2020 Ethanol [Mass/Vol] mg/dL <10 mg/dL [place] Ethanol percent <0.010 <0.010 % [place] Ethanol Alcoholon 09-01-2020 Ethanol [Mass/Vol] mg/dL Normal <10 [facility] Comment on above: Performed By: #### E RTPF #### [facility] [place], [place] [id number] Oyster Cultivator: Dheeraj Garcia MD Ethanol percent <0.010 Normal <0.010 [facility] Comment on above: Performed By: #### E RTPF #### [facility] [address] [place] [address] [phone] Oyster Cultivator: Dheeraj Garcia MD HCG Qualitative, Serumon hCG Qual Negative NEGATIVE [place] Comment on above: Specimens with hCG l evels near the threshold of the test (25 mIU/mL) may give a negative or indeterminate result. In such cases, another test should be performed with a new specimen in 48-72 hours. If early is suspected clinically in this setting, correlation with quantitative serum b-hCG level is suggested. [employer] has confirmed the use of plasma for this test. This has not been cleared or approved by the U.S. Food and Drug Administration. The FDA has determined that such clearance is not necessary. HCG Screen, Bloodon 09-01-20 20 HCG Qn Negative Normal NEG [facility] Comment on above: Result Comment: Spec imens with hCG levels near the threshold of the test (25 mIU/mL) may give a negative or indeterminate result. In such cases, another test should be performed with a new specimen in 48-72 hours. If early is suspected clinically in this setting, correlation with quantitative serum b-hCG level is suggested. [facility] has confirmed the use of plasma for this test. This has not been cleared or approved by the U.S. Food and Drug Administration. The FDA has determined that such clearance is not necessary. Performed By: #### E RTPF #### [facility] [address] [place], [place] [id number] Oyster Cultivator: Dheeraj Garcia MD Hematologyon 09-01-2020 WBC (Bld) [#/Vol] DUPLICATE ORDER per 100 WBC [place] Hemoglobin A1Con 09-01-2020 HbA1c (Bld) [Mass fraction] 151 mg/dL Normal [facility] Comment on above: Result Comment: The ADA and AACC recommend providing the estimated average glucose result to permit better patient understanding of their HBA1c result. Performed By: #### E RTPF #### [address] [address] Oyster Cultivator: Dheeraj Garcia MD HbA1c (Bld) [Mass fraction] 6.9 % High 4.0-6.0 [facility] Comment on above: Performed By: #### E RTPF #### [address] [address] Oyster Cultivator: Dheeraj Garcia MD Hemoglobin A1con 09-01-2020 Glucose [Mass/Vol] 151 mg/dL [place] Comment on above: The ADA and AACC rec ommend providing the estimated average glucose result to permit better patient understanding of their HBA1c result. HbA1c (Bld) [Mass fraction] 6.9 % High 4 - 6 % [place] Interpretation and review of laboratory results Abnormal [place] Lipid Profileon 09-01-2020 Cholesterol [Mass/Vol] 123 mg/dL Normal <200 [facility] Comment on above: Result Comment: Cholesterol Guidelines: <200 Desirable 200-240 Borderline >240 Undesirable Performed By: #### E RTPF #### [place] [address] [place], [place] [id number] Oyster Cultivator: Dheeraj Garcia MD Cholesterol in HDL [Mass/Vol] 43 mg/dL Normal >40 [facility] Comment on above: Result Comment: HDL Guidelines: <40 Undesirable 40-59 Borderline >59 Desirable Performed By: #### E RTPF #### [address] [address] Oyster Cultivator: Dheeraj Garcia MD Cholesterol in LDL [Mass/Vol] 50 mg/dL Normal 0-130 [facility] Comment on above: Result Comment: LDL Guidelines: <100 Desirable 100-129 Near to/above Desirable 130-159 Borderline >159 Undesirable Direct (measured) LDL and calculated LDL are not interchangeable tests. Performed By: #### E RTPF #### [address] [address] Oyster Cultivator: Dheeraj Garcia MD Cholesterol.total/Ch olesterol in HDL [Mass ratio] 2.9 {ratio} Normal <5 [facility] Comment on above: Performed By: #### E RTPF #### [address] [address] Oyster Cultivator: Dheeraj Garcia MD Triglyceride [Mass/Vol] 149 mg/dL Normal <150 [facility] Comment on above: Result Comment: Triglyceride Guidelines: <150 Desirable 150-199 Borderline 200-499 High >499 Very high Based on AHA Guidelines for fasting triglyceride, August 2012. Performed By: #### E RTPF #### [address] [address] Oyster Cultivator: Dheeraj Garcia MD Cholesterol in VLDL [Mass/Vol] NOT REPORTED Normal 1-30 [facility] Comment on above: Performed By: #### E RTPF #### [address] [address] Oyster Cultivator: Dheeraj Garcia MD Lipid panel - fastingon 08-17 Cholesterol [Mass/Vol] 123 mg/dL <200 [facility], [place] Comment on above: Cholesterol Guidelines: <200 Desirable 200-240 Borderline >240 Undesirable Cholesterol in HDL [Mass/Vol] 43 mg/dL >40 [place] Comment on above: HDL Guidelines: <40 Undesirable 40-59 Borderline >59 Desirable Cholesterol in LDL [Mass/Vol] 50 mg/dL 0 - 130 mg/dL [place] Comment on above: LDL Guidelines: <100 Desirable 100-129 Near to/above Desirable 130-159 Borderline >159 Undesirable Direct (measured) LDL and calculated LDL are not interchangeable tests. Cholesterol in VLDL [Mass/Vol] NOT REPORTED 1 - 30 mg/dL [place] Cholesterol.total/Ch olesterol in HDL [Mass ratio] 2.9 {ratio} <5 [place] Triglyceride [Mass/Vol] 149 mg/dL <150 [place] Comment on above: Triglyceride Guidelines: <150 Desirable 150-199 Borderline 200-499 High >499 Very high Based on AHA Guidelines for fasting triglyceride, August 2012. Metabolic Panelon 09-01-2020 GFR/1.73 sq M predicted among non-blacks MDRD (S/P/Bld) [Vol rate/Area] DUPLICATE ORDER [place] TRAUMA PANELon 09-01-2020 Hubert Test NOT REPORTED [place] Anion gap [Moles/Vol] DUPLICATE ORDER mmol/L [place] aPTT Coag (Bld) [Time] 27.5 s [place] Comment on above: IV Heparin Therapy Range: 48.6-77.8 aPTT Coag (Bld) [Time] 37.0 s [place] Blood Bank Specimen BILL FOR SERVICES PERFORMED [place] Carboxyhemoglobin 0.6 % 0 - 5 % [place] Comment on above: Reference Range: Non-Smokers 0-2% Average Smoker 2-4% Heavy Smoker <10% Chloride [Moles/Vol] DUPLICATE ORDER mmol/L [place] CO2 [Moles/Vol] DUPLICATE ORDER mmol/L [place] Creatinine [Mass/Vol] DUPLICATE ORDER mg/dL [place] Erythrocyte distribution width (RBC) [Ratio] DUPLICATE ORDER % [place] Ethanol [Mass/Vol] Order moved to [facility] draw time. [id number] mg/dL [place] Ethanol percent Order moved to [facility] draw time. [id number] % [place] FIO2 UNKNOWN [place] GFR DUPLICATE ORDER >60 mL/min [place] GFR Non- DUPLICATE ORDER >60 mL/min [place] Glucose [Mass/Vol] DUPLICATE ORDER mg/dL [place] hCG Qual Order moved to [facility] draw time. [id number] NEGATIVE [place] HCO3, Venous 27.6 mmol/L 24 - 30 mmol/L [place] Hematocrit (Bld) [Volume fraction] DUPLICATE ORDER % [place] Hemoglobin (Bld) [Mass/Vol] DUPLICATE ORDER g/dL [place] INR Coag (PPP) [Relative time] 1.0 {INR} [place] Comment on above: Therapeutic Range: Moderate Anticoagulant Intensity: INR = 2.0-3.0 High Anticoagulant Intensity: INR = 2.5-3.5 Interpretation and review of laboratory results Abnormal [place] MCH (RBC) [Entitic mass] DUPLICATE ORDER pg [place] MCHC (RBC) [Mass/Vol] DUPLICATE ORDER g/dL [place] MCV (RBC) [Entitic vol] DUPLICATE ORDER fL [place] Methemoglobin NOT REPORTED 0 - 1.5 % [place] Mode NOT REPORTED [place] Negative Base Excess, Christo NOT REPORTED 0 - 2 mmol/L [place] NOTIFICATION NOT REPORTED [place] NOTIFICATION TIME NOT REPORTED [place] O2 Device/Flow/% NOT REPORTED [place] Oxygen saturation in Blood 43.1 % Low 60 - 85 % [place] Oxyhemoglobin NOT REPORTED 95 - 98 % [place] pCO2, Christo 48.8 [place] pCO2, Christo, Temp Adj NOT REPORTED [place] Peep/Cpap NOT REPORTED [place] pH, Christo 7.371 [place] pH, Christo, Temp Adj NOT REPORTED [place] Platelet mean volume (Bld) [Entitic vol] DUPLICATE ORDER fL [place] Platelets (Bld) [#/Vol] DUPLICATE ORDER k/uL [place] pO2, Christo 23.6 Low [place] pO2, Christo, Temp Adj NOT REPORTED [place] Positive Base Excess, Christo 2.1 mmol/L High 0 - 2 mmol/L [place] Potassium [Moles/Vol] DUPLICATE ORDER mmol/L [place] PSV NOT REPORTED [place] PT Coag (PPP) [Time] 10.4 s [place] Pt. Position NOT REPORTED [place] RBC (Bld) [#/Vol] DUPLICATE ORDER m/uL [place] Sample Site NOT REPORTED [place] Set Rate NOT REPORTED [place] Sodium [Moles/Vol] DUPLICATE ORDER mmol/L [place] Text for Respiratory NOT REPORTED [place] Total Hb NOT REPORTED 12 - 16 g/dl [place] Total Rate NOT REPORTED [place] Urea nitrogen [Mass/Vol] DUPLICATE ORDER mg/dL [place] VT NOT REPORTED [place] Trauma Profileon 09-01-2020 aPTT Coag (Bld) [Time] 27.5 s Normal 20.5-30.5 [facility] Comment on above: Result Comment: IV Heparin Therapy Range: 48.6-77.8 Performed By: #### E RTPF #### [employer] [address] [place] [address] [id number] Oyster Cultivator: Dheeraj Garcia MD INR Coag (PPP) [Relative time] 1.0 {INR} Normal [facility] Comment on above: Result Comment: Therapeutic Range: Moderate Anticoagulant Intensity: INR = 2.0-3.0 High Anticoagulant Intensity: INR = 2.5-3.5 Performed By: #### E RTPF #### [facility] [employer] [address] [place] [id number] Oyster Cultivator: Dheeraj Garcia MD PT Coag (PPP) [Time] 10.4 s Normal 9.0-12.0 [facility] Comment on above: Performed By: #### E RTPF #### [address] [address] Oyster Cultivator: Dheeraj Garcia MD Body Temp. 37.0 Normal [facility] Comment on above: Performed By: #### E RTPF #### [address] [address] Oyster Cultivator: Dheeraj Garcia MD Carboxy Hgb 0.6 % Normal 0-5 [facility] Comment on above: Result Comment: Reference Range: Non-Smokers 0-2% Average Smoker 2-4% Heavy Smoker <10% Performed By: #### E RTPF #### [address] [address] Oyster Cultivator: Dheeraj Garcia MD FIO2 UNKNOWN Normal [facility] Comment on above: Performed By: #### E RTPF #### [address] [address] Oyster Cultivator: Dheeraj Garcia MD HCO3 (Bld) [Moles/Vol] 27.6 mmol/L Normal 24-30 [facility] Comment on above: Performed By: #### E RTPF #### [address] [address] Oyster Cultivator: Dheeraj Garcia MD Oxygen (Bld) [Partial pressure] 23.6 mm[Hg] Low 30-50 [facility] Comment on above: Performed By: #### E RTPF #### [address] [address] Oyster Cultivator: Dheeraj Garcia MD Oxygen saturation in Blood 43.1 % Low 60.0-85.0 [facility] Comment on above: Performed By: #### E RTPF #### [address] [address] Oyster Cultivator: Dheeraj Garcia MD pCO2 48.8 Normal 39-55 [facility] Comment on above: Performed By: #### E RTPF #### [address] [address] Oyster Cultivator: Dheeraj Garcia MD pH (Bld) 7.371 [pH] Normal 7.320-7.42 0 [facility] Comment on above: Performed By: #### E RTPF #### [address] [address] Oyster Cultivator: Dheeraj Garcia MD Positive Base Excess 2.1 mmol/L High 0.0-2.0 [facility] Comment on above: Performed By: #### E RTPF #### [address] [address] Oyster Cultivator: Dheeraj Garcia MD Hubert Test NOT REPORTED Normal [facility] Comment on above: Performed By: #### E RTPF #### [address] [address] [employer] Cultivator: Dheeraj Garcia MD Methemoglobin NOT REPORTED Normal 0.0-1.5 [facility] Comment on above: Performed By: #### E RTPF #### [address] [address] Oyster Cultivator: Dheeraj Garcia MD Mode NOT REPORTED Normal [facility] Comment on above: Performed By: #### E RTPF #### [address] [address] Oyster Cultivator: Dheeraj Garcia MD Negative Base Excess NOT REPORTED Normal 0.0-2.0 [facility] Comment on above: Performed By: #### E RTPF #### [facility] [address] [place] [address] Oyster Cultivator: Dheeraj Garcia MD Notification Time NOT REPORTED Normal [facility] Comment on above: Performed By: #### E RTPF #### [address] [address] Oyster Cultivator: Dheeraj Garcia MD Notification: NOT REPORTED Normal [facility] Comment on above: Performed By: #### E RTPF #### [address] [address] Oyster Cultivator: Dheeraj Gracia MD O2 Device/Flow/% NOT REPORTED Normal [facility] Comment on above: Performed By: #### E RTPF #### [address] [address] Oyster Cultivator: Dheeraj Garcia MD Oxyhemoglobin NOT REPORTED Normal 95.0-98.0 [facility] Comment on above: Performed By: #### E RTPF #### [address] [address] Oyster Cultivator: Dheeraj Garcia MD Pco2 Adj'd for Temp. NOT REPORTED Normal 39-55 [facility] Comment on above: Performed By: #### E RTPF #### [facility] [address] [place] [address] Oyster Cultivator: Dheeraj Garcia MD PEEP/CPAP NOT REPORTED Normal [facility] Comment on above: Performed By: #### E RTPF #### [facility] [address] [place] [address] Oyster Cultivator: Dheeraj Garcia MD pH Adjst'd for Temp. NOT REPORTED Normal 7.320-7 .42 0 [facility] Comment on above: Performed By: #### E RTPF #### [address] [place] [address] Oyster Cultivator: Dheeraj Garcia MD pO2 Adj'd for Temp. NOT REPORTED Normal 30-50 [facility] Comment on above: Performed By: #### E RTPF #### [address] [address] Oyster Cultivator: Dheeraj Garcia MD PSV NOT REPORTED Normal [facility] Comment on above: Performed By: #### E RTPF #### [address] [address] Oyster Cultivator: Dheeraj Garcia MD Pt. Position NOT REPORTED Normal [facility] Comment on above: Performed By: #### E RTPF #### [address] [address] Oyster Cultivator: Dheeraj Garcia MD Set Rate NOT REPORTED Normal [facility] Comment on above: Performed By: #### E RTPF #### [address] [address] Oyster Cultivator: Dheeraj Garcia MD Site Drawn NOT REPORTED Normal [facility] Comment on above: Performed By: #### E RTPF #### [address] [address] Oyster Cultivator: Dheeraj Garcia MD Text for Respiratory NOT REPORTED Normal [facility] Comment on above: Performed By: #### E RTPF #### [address] [address] Oyster Cultivator: Dheeraj Garcia MD Total Hb NOT REPORTED Normal 12.0-16.0 [facility] Comment on above: Performed By: #### E RTPF #### [address] [address] Oyster Cultivator: Dheeraj Garcia MD Total Rate NOT REPORTED Normal [facility] Comment on above: Performed By: #### E RTPF #### [facility] [address] [place], [place] [id number] Oyster Cultivator: Dheeraj Garcia MD VT NOT REPORTED Normal [facility] Comment on above: Performed By: #### E RTPF #### [facility] [place], [place] [id number] Oyster Cultivator: Dheeraj Garcia MD Blood Bank BILL FOR SERVICES PERFORMED Normal [facility] Comment on above: Performed By: #### E RTPF #### [facility] [address] [place] [address] Oyster Cultivator: Dheeraj Garcia MD CT CERVICAL SPINE WO [...] Krishna Martell DO 08/30/20 Final result Normal [facility] CT CHEST ABDOMEN PELVIS W CO NTRASTon [...] Brenda Sheldon MD 08/30/20 Final result Normal [facility] CT LUMBAR SPINE TRAUMA RECON STRUCTIONon 08-31-2020 [...] Krishna Martell DO 08/30/20 Final result Normal [facility] CT THORACIC SPINE TRAUMA REC ONSTRUCTIONon 08-31-2020 [...] Krishna Martell DO 08/30/20 Final result Normal [facility] CTA HEAD NECK W CONTRASTon 1 CTA [...] Dom Zhong MD 08/30/20 Final result Normal [facility] MRI LIMITED BRAINon 08-31-20 MRI LIMITED BRAIN [...] Hector Martinez MD 08/31/20 Final result Normal [facility] [place], [place] Incoming R adiant Results From [facility]/Pacs - 08/31/2020 11:56 AM EDT EXAMINATION: MRI [...] chronic microvascular disease without acute intracranial abnormality. [place] Minimal chronic microvascular disease without acute intracranial abnormality. [place] EXAMINATION: MRI OF THE BRAIN WITHOUT [...] The soft tissues demonstrate no acute abnormality. [place] Trauma Profileon 08-31-2020 Erythrocyte distribution width (RBC) [Ratio] 14.1 % Normal 11.8-14.4 [facility] Comment on above: Performed By: #### E RTPF #### [facility] [address] [place] [address] [id number] Oyster Cultivator: Dheeraj Garcia MD Hematocrit (Bld) [Volume fraction] 38.2 % Normal 36.3-47.1 [facility] Comment on above: Performed By: #### E RTPF #### [facility] [address] [place] [address] Oyster Cultivator: Dheeraj Garcia MD Hemoglobin (Bld) [Mass/Vol] 12.3 g/dL Normal 11.9-15.1 [facility] Comment on above: Performed By: #### E RTPF #### [facility] [address] [place] [address] Oyster Cultivator: Dheeraj Garcia MD MCH (RBC) [Entitic mass] 28.9 pg Normal 25.2-33.5 [facility] Comment on above: Performed By: #### E RTPF #### [facility] [address] [place] [address] Oyster Cultivator: Dheeraj Garcia MD MCHC (RBC) [Mass/Vol] 32.2 g/dL Normal 28.4-34.8 [facility] Comment on above: Performed By: #### E RTPF #### [address] [address] Oyster Cultivator: Dheeraj Garcia MD MCV (RBC) [Entitic vol] 89.7 fL Normal 82.6-102.9 [facility] Comment on above: Performed By: #### E RTPF #### [address] [address] Oyster Cultivator: Dheeraj Garcia MD NRBC Automated 0.0 per 100 WBC Normal 0.0 [facility] Comment on above: Performed By: #### E RTPF #### [address] [address] Oyster Cultivator: Dheeraj Garcia MD Platelet mean volume (Bld) [Entitic vol] 10.6 fL Normal 8.1-13.5 [facility] Comment on above: Performed By: #### E RTPF #### [address] [address] Oyster Cultivator: Dheeraj Garcia MD Platelets (Bld) [#/Vol] 268 10*3/uL Normal 138-453 [facility] Comment on above: Performed By: #### E RTPF #### [address] [address] Oyster Cultivator: Dheeraj Garcia MD RBC (Bld) [#/Vol] 4.26 10*6/uL Normal 3.95-5.11 [facility] Comment on above: Performed By: #### E RTPF #### [address] [address] Oyster Cultivator: Dheeraj Garcia MD WBC (Bld) [#/Vol] 8.7 10*3/uL Normal 3.5-11.3 [facility] Comment on above: Performed By: #### E RTPF #### [address] [address] Oyster Cultivator: Dheeraj Garcia MD (cont.) [facility] Comment on above: Result Comment: Aver age GFR for 60-69 years old: 85 mL/min/1.73sq m Chronic Kidney Disease: <60 mL/min/1.73sq m Kidney failure: <15 mL/min/1.73sq m eGFR calculated using average adult body mass. Additional eGFR calculator available at: http://www.Nutrabolt/multiple_crcl_2012.htm Performed By: #### E RTPF #### [address] [address] Oyster Cultivator: Dheeraj Garcia MD Anion gap [Moles/Vol] 10 mmol/L Normal 9-17 [facility] Comment on above: Performed By: #### E RTPF #### [address] [address] Oyster Cultivator: Dheeraj Garcia MD Chloride [Moles/Vol] 106 mmol/L Normal 98-107 [facility] Comment on above: Performed By: #### E RTPF #### [address] [address] Oyster Cultivator: Dheeraj Garcia MD CO2 [Moles/Vol] 23 mmol/L Normal 20-31 [facility] Comment on above: Performed By: #### E RTPF #### [address] [address] Oyster Cultivator: Dheeraj Garcia MD Creatinine [Mass/Vol] 0.62 mg/dL Normal 0.50-0.90 [facility] Comment on above: Performed By: #### E RTPF #### [address] [address] Oyster Cultivator: Dheeraj Garcia MD Ethanol [Mass/Vol] mg/dL Normal <10 [facility] Comment on above: Performed By: #### E RTPF #### [address] [address] Oyster Cultivator: Dheeraj Garcia MD Ethanol percent <0.010 Normal <0.010 [facility] Comment on above: Performed By: #### E RTPF #### [address] [address] Oyster Cultivator: Dheeraj Garcia MD GFR, Amer >60 Normal >60 [facility] Comment on above: Performed By: #### E RTPF #### [address] [address] Oyster Cultivator: Dheeraj Garcia MD GFR,non Amer >60 Normal >60 [facility] Comment on above: Performed By: #### E RTPF #### [address] [address] Oyster Cultivator: Dheeraj Garcia MD Glucose [Mass/Vol] 186 mg/dL High 70-99 [facility] Comment on above: Performed By: #### E RTPF #### [address] [address] Oyster Cultivator: Dheeraj Garcia MD Potassium [Moles/Vol] 3.5 mmol/L Low 3.7-5.3 [facility] Comment on above: Performed By: #### E RTPF #### [address] [address] Oyster Cultivator: Dheeraj Garcia MD Sodium [Moles/Vol] 139 mmol/L Normal 135-144 [facility] Comment on above: Performed By: #### E RTPF #### [address] [address] Oyster Cultivator: Dheeraj Garcia MD Urea nitrogen [Mass/Vol] 11 mg/dL Normal 8-23 [facility] Comment on above: Performed By: #### E RTPF #### [facility] [address] [place] [address] Oyster Cultivator: Dheeraj Garcia MD aPTT Coag (Bld) [Time] 24.4 s Normal 20.5-30.5 [facility] Comment on above: Result Comment: IV Heparin Therapy Range: 48.6-77.8 Performed By: #### E RTPF #### [address] [address] Oyster Cultivator: Dheeraj Garcia MD INR Coag (PPP) [Relative time] 1.0 {INR} Normal [facility] Comment on above: Result Comment: Therapeutic Range: Moderate Anticoagulant Intensity: INR = 2.0-3.0 High Anticoagulant Intensity: INR = 2.5-3.5 Performed By: #### E RTPF #### [address] [address] Oyster Cultivator: Dheeraj Garcia MD PT Coag (PPP) [Time] 10.5 s Normal 9.0-12.0 [facility] Comment on above: Performed By: #### E RTPF #### [address] [address] Oyster Cultivator: Dheeraj Garcia MD Body Temp. 37.0 Normal [facility] Comment on above: Performed By: #### E RTPF #### [facility] [address] [place] [address] Oyster Cultivator: Dheeraj Garcia MD Carboxy Hgb 2.2 % Normal 0-5 [facility] Comment on above: Result Comment: Reference Range: Non-Smokers 0-2% Average Smoker 2-4% Heavy Smoker <10% Performed By: #### E RTPF #### [address] [address] Oyster Cultivator: Dheeraj Garcia MD FIO2 INFORMATION NOT PROVIDED Normal [facility] Comment on above: Performed By: #### E RTPF #### [address] [address] Oyster Cultivator: Dheeraj Garcia MD HCO3 (Bld) [Moles/Vol] 23.6 mmol/L Low 24-30 [facility] Comment on above: Performed By: #### E RTPF #### [address] [address] Oyster Cultivator: Dheeraj Garcia MD Negative Base Excess 0.8 mmol/L Normal 0.0-2.0 [facility] Comment on above: Performed By: #### E RTPF #### [address] [address] Oyster Cultivator: Dheeraj Garcia MD Oxygen (Bld) [Partial pressure] 143.0 mm[Hg] High 30-50 [facility] Comment on above: Performed By: #### E RTPF #### [address] [address] Oyster Cultivator: Dheeraj Garcia MD Oxygen saturation in Blood 98.6 % High 60.0-85.0 [facility] Comment on above: Performed By: #### E RTPF #### [address] [address] Oyster Cultivator: Dheeraj Garcia MD pCO2 40.6 Normal 39-55 [facility] Comment on above: Performed By: #### E RTPF #### [address] [address] Oyster Cultivator: Dheeraj Garcia MD pH (Bld) 7.383 [pH] Normal 7.320-7.42 0 [facility] Comment on above: Performed By: #### E RTPF #### [facility] [address] [place] [address] Oyster Cultivator: Dheeraj Garcia MD Blood Bank BILL FOR SERVICES PERFORMED Normal [facility] Comment on above: Performed By: #### E RTPF #### [facility] [address] [place] [address] Oyster Cultivator: Dheeraj Garcia MD Hubert Test NOT REPORTED Normal [facility] Comment on above: Performed By: #### E RTPF #### [facility] [address] [place] [address] Oyster Cultivator: Dheeraj Garcia MD Methemoglobin NOT REPORTED Normal 0.0-1.5 [facility] Comment on above: Performed By: #### E RTPF #### [address] [address] Oyster Cultivator: Dheeraj Garcia MD Mode NOT REPORTED Normal [facility] Comment on above: Performed By: #### E RTPF #### [address] [address] Oyster Cultivator: Dheeraj Garcia MD Notification Time NOT REPORTED Normal [facility] Comment on above: Performed By: #### E RTPF #### [facility] [address] [place] [address] Oyster Cultivator: Dheeraj Garcia MD Notification: NOT REPORTED Normal [facility] Comment on above: Performed By: #### E RTPF #### [facility] [address] [place] [address] Oyster Cultivator: Dheeraj Garcia MD O2 Device/Flow/% NOT REPORTED Normal [facility] Comment on above: Performed By: #### E RTPF #### [facility] [address] [place] [address] Oyster Cultivator: Dheeraj Garcia MD Oxyhemoglobin NOT REPORTED Normal 95.0-98.0 [facility] Comment on above: Performed By: #### E RTPF #### [address] [address] Oyster Cultivator: Dheeraj Garcia MD Pco2 Adj'd for Temp. NOT REPORTED Normal 39-55 [facility] Comment on above: Performed By: #### E RTPF #### [address] [address] Oyster Cultivator: Dheeraj Garcia MD PEEP/CPAP NOT REPORTED Normal [facility] Comment on above: Performed By: #### E RTPF #### [address] [address] Oyster Cultivator: Dheeraj Garcia MD pH Adjst'd for Temp. NOT REPORTED Normal 7.320-7 .42 0 [facility] Comment on above: Performed By: #### E RTPF #### [address] [address] Oyster Cultivator: Dheeraj Garcia MD pO2 Adj'd for Temp. NOT REPORTED Normal 30-50 [facility] Comment on above: Performed By: #### E RTPF #### [address] [address] Oyster Cultivator: Dheeraj Garcia MD Positive Base Excess NOT REPORTED Normal 0.0-2.0 [facility] Comment on above: Performed By: #### E RTPF #### [address] [address] Oyster Cultivator: Dheeraj Garcia MD PSV NOT REPORTED Normal [facility] Comment on above: Performed By: #### E RTPF #### [address] [address] Oyster Cultivator: Dheeraj Garcia MD Pt. Position NOT REPORTED Normal [facility] Comment on above: Performed By: #### E RTPF #### [facility] [address] [place] [address] Oyster Cultivator: Dheeraj Garcia MD Set Rate NOT REPORTED Normal [facility] Comment on above: Performed By: #### E RTPF #### [address] [address] Oyster Cultivator: Dheeraj Garcia MD Site Drawn NOT REPORTED Normal [facility] Comment on above: Performed By: #### E RTPF #### [address] [address] Oyster Cultivator: Dheeraj Garcia MD Staging: NOT REPORTED Normal [facility] Comment on above: Performed By: #### E RTPF #### [address] [address] Oyster Cultivator: Dheeraj Garcia MD Text for Respiratory NOT REPORTED Normal [facility] Comment on above: Performed By: #### E RTPF #### [address] [address] Oyster Cultivator: Dheeraj Garcia MD Total Hb NOT REPORTED Normal 12.0-16.0 [facility] Comment on above: Performed By: #### E RTPF #### [facility] [address] [place] [address] Oyster Cultivator: Dheeraj Garcia MD Total Rate NOT REPORTED Normal [facility] Comment on above: Performed By: #### E RTPF #### [facility] [address] [place] [address] Oyster Cultivator: Dheeraj Garcia MD [place] NOT REPORTED Normal [facility] Comment on above: Performed By: #### E RTPF #### [address] [address] Oyster Cultivator: Dheeraj Garcia MD Type + Screenon 08-31-2020 Type + Screen Sample Expiration 09/02/2020,2359 Arm Band Number [id number] ABO/Rh(D) O POSITIVE Antibody Screen NEGATIVE Normal [facility] Comment on above: Performed By: #### T YS #### [facility] [address] [place] [address] Oyster Cultivator: Dheeraj Garcia MD XR SHOULDER LEFT (MIN [...] Delmis Adams MD 08/31/20 Final result Normal [facility] EXAMINATION: TWO XRA Y VIEWS OF THE LEFT SHOULDER 08/31/2020 8:25 am COMPARISON: None. HISTORY: ORDERING SYSTEM PROVIDED HISTORY: trauma TECHNOLOGIST PROVIDED HISTORY: trauma Reason for Exam: trauma Acuity: Acute Type of Exam: Initial FINDINGS: The bones and joints are unremarkable without definite fracture, dislocation, abnormal soft tissue calcification or bony destructive lesion [facility] [place] Unremarkable three v iew left shoulder series [facility] [place], [place] Incoming R adiant Results From [facility]/Pacs - 08/31/2020 8:46 AM EDT EXAMINATION: TWO [...] IMPRESSION: Unremarkable three view left shoulder series [facility] [employer] [place] CT CERVICAL SPINE WO CONTRAS Ton 08-30-2020 No evidence of an [place] fracture or traumatic malalignment involving the cervical spine [place], [place] EXAMINATION: CT OF T HE CERVICAL [...] There is no prevertebral soft tissue swelling. [place], [place] Incoming R adiant Results From [employer]io/[employer] - 08/30/2020 11:01 PM EDT EXAMINATION: CT [...] or traumatic malalignment involving the cervical spine [place] CT CHEST ABDOMEN PELVIS W CO [...] aorta. Bones/Soft Tissues: No acute osseous abnormality. [facility] [place], [place], [place] Incoming R adiant Results From [employer]io/[employer] - 08/30/2020 11:25 PM EDT EXAMINATION: CT [...] could provide further information as clinically indicated. [place] 1. No acute or traum atic intrathoracic abnormality. 2. No acute or traumatic intra-abdominal abnormality. 3. Dilation of the main pulmonary artery, suggestive of pulmonary artery hypertension. 4. Hepatic steatosis. 5. 1.6 cm left upper pole renal lesion is indeterminate, possibly a cyst. Renal protocol CT or MRI could provide further information as clinically indicated. [place] CT LUMBAR SPINE TRAUMA RECON STRUCTIONon [...] the upper pole of the left kidney. [place], [place] Incoming R adiant Results From [employer] - 08/30/2020 11:26 PM EDT EXAMINATION: CT [...] or traumatic malalignment involving the lumbar spine. [place] No evidence of an [place] fracture or traumatic malalignment involving the lumbar spine. [place] CT THORACIC SPINE TRAUMA REC ONSTRUCTIONon [...] the lung bases. No pneumothorax is noted. [place], [place] Incoming R adiant Results From [employer] - 08/30/2020 11:29 PM EDT EXAMINATION: CT [...] or traumatic malalignment involving the thoracic spine [place] No evidence of an [place] fracture or traumatic malalignment involving the thoracic spine [place] CTA HEAD NECK W CONTRASTon 1 Unremarkable CTA of the neck. 50% stenosis left intracranial ICA, otherwise unremarkable CTA head. [place], [place] Incoming R adiant Results From [employer] - 08/30/2020 11:48 PM EDT EXAMINATION: CTA [...] left intracranial ICA, otherwise unremarkable CTA head. [facility], [place] EXAMINATION: CTA OF THE HEAD AND NECK [...] fluid collection. The durán-white differentiation is maintained. [place] TYPE AND SCREENon 08-30-2020 ABO/Rh Positive [place], [place] Arm Band Number BE [id number] [place] Expiration Date 09/02/2020,2350 [place] Trauma Panelon 08-30-2020 Hubert Test NOT REPORTED [place] Anion gap [Moles/Vol] 10 mmol/L 9 - 17 mmol/L [place] aPTT Coag (Bld) [Time] 37.0 s [place] aPTT Coag (Bld) [Time] 24.4 s [place] Comment on above: IV Heparin Therapy Range: 48.6-77.8 Blood Bank Specimen BILL FOR SERVICES PERFORMED [place] Carboxyhemoglobin 2.2 % 0 - 5 % [place] Comment on above: Reference Range: Non-Smokers 0-2% Average Smoker 2-4% Heavy Smoker <10% Chloride [Moles/Vol] 106 mmol/L 98 - 10 7 mmol/L [place] CO2 [Moles/Vol] 23 mmol/L 20 - 31 mmol/L [place] Creatinine [Mass/Vol] 0.62 mg/dL 0.5 - 0.9 mg/dL [place] Erythrocyte distribution width (RBC) [Ratio] 14.1 % 11.8 - 14.4 % [place] Ethanol [Mass/Vol] mg/dL <10 mg/dL [place] Ethanol percent <0.010 <0.010 % [place] FIO2 INFORMATION NOT PROVIDED [place] GFR >60 >60 mL/min [place] GFR Non- >60 >60 mL/min [place] GFR/1.73 sq M predicted among non-blacks MDRD (S/P/Bld) [Vol rate/Area] [place] Comment on above: Average GFR for 60-6 9 years old: 85 mL/min/1.73sq m Chronic Kidney Disease: <60 mL/min/1.73sq m Kidney failure: <15 mL/min/1.73sq m eGFR calculated using average adult body mass. Additional eGFR calculator available at: http://www.Nutrabolt/multiple_crcl_2012.htm GFR/1.73 sq M predicted among non-blacks MDRD (S/P/Bld) [Vol rate/Area] NOT REPORTED [place] Glucose [Mass/Vol] 186 mg/dL High 70 - 99 mg/dL [place] hCG Qual CANCELLED PER ED NEGATIVE [place] HCO3, Venous 23.6 mmol/L Low 24 - 30 mmol/L [place] Hematocrit (Bld) [Volume fraction] 38.2 % 36.3 - 47.1 % [place] Hemoglobin (Bld) [Mass/Vol] 12.3 g/dL 11.9 - 15.1 g/dL [place] INR Coag (PPP) [Relative time] 1.0 {INR} [place] Comment on above: Therapeutic Range: Moderate Anticoagulant Intensity: INR = 2.0-3.0 High Anticoagulant Intensity: INR = 2.5-3.5 Interpretation and review of laboratory results Abnormal [place] MCH (RBC) [Entitic mass] 28.9 pg 25.2 - 33.5 pg [place] MCHC (RBC) [Mass/Vol] 32.2 g/dL 28.4 - 34.8 g/dL [place] MCV (RBC) [Entitic vol] 89.7 fL 82.6 - 102.9 fL [place] Methemoglobin NOT REPORTED 0 - 1.5 % [place] Mode NOT REPORTED [place] Negative Base Excess, Christo 0.8 mmol/L 0 - 2 mmol/L [place] NOTIFICATION NOT REPORTED [place] NOTIFICATION TIME NOT REPORTED [place] O2 Device/Flow/% NOT REPORTED [place] Oxygen saturation in Blood 98.6 % High 60 - 85 % [place] Oxyhemoglobin NOT REPORTED 95 - 98 % [place] pCO2, Christo 40.6 [place] pCO2, Christo, Temp Adj NOT REPORTED [place] Peep/Cpap NOT REPORTED [place] pH, Christo 7.383 [place] pH, Christo, Temp Adj NOT REPORTED [place] Platelet mean volume (Bld) [Entitic vol] 10.6 fL 8.1 - 13.5 fL [place] Platelets (Bld) [#/Vol] 268 10*3/uL [place] pO2, Christo 143.0 High [place] pO2, Christo, Temp Adj NOT REPORTED [place] Positive Base Excess, Christo NOT REPORTED 0 - 2 mmol/L [place] Potassium [Moles/Vol] 3.5 mmol/L Low 3.7 - 5.3 mmol/L [place] PSV NOT REPORTED [place] PT Coag (PPP) [Time] 10.5 s [place] Pt. Position NOT REPORTED [place] RBC (Bld) [#/Vol] 4.26 10*6/uL 3.95 - 5.11 m/uL [place] Sample Site NOT REPORTED [place] Set Rate NOT REPORTED [place] Sodium [Moles/Vol] 139 mmol/L 135 - 144 mmol/L [place] Text for Respiratory NOT REPORTED [place] Total Hb NOT REPORTED 12 - 16 g/dl [place] Total Rate NOT REPORTED [place] Urea nitrogen [Mass/Vol] 11 mg/dL 8 - 23 mg/dL [place] NOT REPORTED [place] WBC (Bld) [#/Vol] 0.0 10*3/uL 0.0 per 100 WBC [place] WBC (Bld) [#/Vol] 8.7 10*3/uL [place] PROGRESSon 03-24-2019 Protein mass conc HNO ID: [id number] Author: Kamilah Jean) Kyle Service: ? Author Type: Physician Gear Keeper Type: Progress Notes Filed: 03/25/2019 10:38 AM Note Text: [facility] NOTE NAME: SHEMAR AVILA NO.: [id number] DATE OF SERVICE: 03/24/2019 [facility] DATE OF : 1955 CHIEF COMPLAINT: [...] DICTATED BY: Kamilah Wright PA-C PG/Niharika JOB# [id number] cc:[facility] Normal [facility] PROGRESSon 03-22-2019 Protein mass conc HNO ID: [id number] Author: Kamilah Wright (Pa) Service: ? Author Type: Physician Gear Keeper Type: Progress Notes Filed: 03/23/2019 11:37 AM Note Text: [facility] NOTE NAME: SHEMAR AVILA NO.: [id number] DATE OF SERVICE: 03/22/2019 [facility] DATE OF : 1955 CHIEF COMPLAINT: [...] DICTATED BY: Kamilah Wright PA-C PG/Niharika JOB# [id number] cc:[facility] Normal [facility] PROGRESSon 03-19-2019 Protein mass conc HNO ID: [id number] Author: Kamilah Wright (Pa) Service: ? Author Type: Physician Gear Keeper Type: Progress Notes Filed: 03/22/2019 12:17 PM Note Text: [facility] NOTE NAME: SHEMAR AVILA NO.: [id number] DATE OF SERVICE: 03/19/2019 [facility] DATE OF : 1955 CHIEF COMPLAINT: [...] DICTATED BY: Kamilah Wright PA-C PG/Niharika JOB# [id number] cc:[facility] Normal [facility] PROGRESSon 03-17-2019 Protein mass conc HNO ID: [id number] Author: Kamilah Jean) Kyle Service: ? Author Type: Physician Gear Keeper Type: Progress Notes Filed: 03/18/2019 10:28 AM Note Text: [facility] NOTE NAME: SHEMAR AVILA NO.: [id number] DATE OF SERVICE: 03/17/2019 [facility] DATE OF : 1955 CHIEF COMPLAINT: [...] DICTATED BY: Kamilah Wright PA-C PG/Niharika JOB# [id number] cc:[facility] Normal [facility] PROGRESSon 03-15-2019 Protein mass conc HNO ID: [id number] Author: Kyra Butler Service: ? Author Type: Physician Type: Progress Notes Filed: 03/18/2019 5:07 PM Note Text: [facility] NOTE NAME: JESSI AVILA NO.: [id number] DATE OF SERVICE: 03/15/2019 [facility] DATE OF : 1955 New Patient History and Physical HISTORY OF PRESENT ILLNESS: The patient is a 63-year-old female was admitted to us from [facility] in [place] with the diagnoses of complicated headache syndrome [...] was negative. She was then transferred to [facility] where repeat CT scan along with [...] therapy. DICTATED BY: MD NELIDA Larose/Niharika JOB# [id number] cc:Viviana Mota Normal [facility] Vital Signs Date Time Vital Sign Value Performing Clinician Facility 05-13-2024 10:43-0400 Blood Pressure Location [facility] 05-13-2024 10:43-0400 Diastolic blood pressure 75 mm[Hg] [facility] 05-13-2024 10:43-0400 Heart rate 64 /min [facility] 05-13-2024 10:43-0400 Respiratory rate 16 /min [facility] 05-13-2024 10:43-0400 Systolic blood pressure 117 mm[Hg] [facility] 07-13-2023 11:32-0400 Body temperature 97.88 [degF] [facility] 07-13-2023 11:32-0400 Diastolic blood pressure 85 mm[Hg[facility] 07-13-2023 11:32-0400 Heart rate 76 /min [facility] 07-13-2023 11:32-0400 Respiratory rate 18 /min [facility] 07-13-2023 11:32-0400 SaO2% (BldA) [Mass fraction] 97 % [facility] 07-13-2023 11:32-0400 Systolic blood pressure 147 mm[Hg] [facility] 02-24-2023 13:08-0400 Promise to Return Ronobir FELICIA [facility] 02-24-2023 12:00-0400 Hourly Rounding Ronobir FELICIA [facility] 02-24-2023 12:00-0400 Promise to Return Ronobir FELICIA [facility] 02-24-2023 11:56-0400 Heart rate 62 /min Ronobir FELICIA [facility] 02-24-2023 11:56-0400 SaO2% (BldA) [Mass fraction] 97 % Ronobir FELICIA [facility] 02-24-2023 11:54-0400 Diastolic blood pressure 67 mm[Hg] Ronobir FELICIA [facility] 02-24-2023 11:54-0400 Mean blood pressure 88 mm[Hg] Ronobir FELICIA [facility] 02-24-2023 11:54-0400 Systolic blood pressure 130 mm[Hg] Ronobir FELICIA [facility] 02-24-2023 11:54-0400 Body temperature 97.88 [degF] Ronobir FELICIA [facility] 02-24-2023 11:11-0400 Hourly Rounding Ronobir FELICIA [facility] 02-24-2023 11:11-0400 Promise to Return Ronobir FELICIA [facility] 02-24-2023 11:00-0400 Hourly Rounding Ronobir FELICIA [facility] 02-24-2023 07:50-0400 SaO2% (BldA) [Mass fraction] 98 % Ronobir FELICIA [facility] 02-24-2023 07:43-0400 Heart rate 61 /min Ronobir FELICIA [facility] 02-24-2023 07:43-0400 SaO2% (BldA) [Mass fraction] 98 % Ronobir FELICIA [facility] 02-24-2023 07:41-0400 Body temperature 98.06 [degF] Ronobir FELICIA [facility] 02-24-2023 07:41-0400 Diastolic blood pressure 74 mm[Hg] Ronobir FELICIA [facility] 02-24-2023 07:41-0400 Mean blood pressure 92 mm[Hg] Ronobir FELICIA [facility] 02-24-2023 07:41-0400 Systolic blood pressure 128 mm[Hg] Ronobir FELICIA [facility] 02-24-2023 03:47-0400 Blood Pressure Location Ronobir FELICIA [facility] 02-24-2023 03:47-0400 Body temperature 97.52 [degF] Ronobir FELICIA [facility] 02-24-2023 03:47-0400 Diastolic blood pressure 70 mm[Hg] Ronobir FELICIA [facility] 02-24-2023 03:47-0400 Heart rate 57 /min Ronobir FELICIA [facility] 02-24-2023 03:47-0400 Mean blood pressure 87 mm[Hg] Ronobir FELICIA [facility] 02-24-2023 03:47-0400 Respiratory rate 17 /min Ronobir FELICIA [facility] 02-24-2023 03:47-0400 Systolic blood pressure 120 mm[Hg] Ronobir FELICIA [facility] 02-24-2023 03:06-0400 Mean blood pressure 77 mm[Hg] Ronobir FELICIA [facility] 02-24-2023 03:06-0400 Respiratory rate 16 /min Ronobir FELICIA [facility] 02-24-2023 02:49-0400 Respiratory rate 16 /min Ronobir FELICIA [facility] 02-24-2023 02:04-0400 Body temperature 96.8 [degF] Ronobir FELICIA [facility] 02-24-2023 02:04-0400 Mean blood pressure 68 mm[Hg] Ronobir FELICIA [facility] 02-24-2023 01:09-0400 Body temperature 96.62 [degF] Ronobir FELICIA [facility] 02-24-2023 00:21-0400 Heart rate 58 /min Ronobir FELICIA [facility] 02-24-2023 00:06-0400 gluc 139 mg/dL Ronobir FELICIA [facility] 02-24-2023 00:06-0400 Heart rate 61 /min Sunshine DUARTE [facility] 02-18-2022 13:50-0400 Body height 165.1 cm MD Shaikh Hernandez Work Phone: [facility] 02-18-2022 13:50-0400 Body weight 104.32 kg MD Shaikh Hernandez Work Phone: [facility] 09-01-2020 16:00-0400 BP Diastolic 85 mm[Hg] [facility] [place] 09-01-2020 16:00-0400 BP Systolic 158 mm[Hg] [facility] [place] 09-01-2020 14:12-0400 Pulse (Heart Rate) 72 /min [facility] [place] 09-01-2020 13:30-0400 Respiratory rate NOT REPORTED [facility] [place] 09-01-2020 12:27-0400 Body Temperature 97.7 [degF] [facility] [place] 09-01-2020 12:27-0400 Pulse Oximetry 94 % [facility] [place] 09-01-2020 07:15-0400 Respiratory rate NOT REPORTED HERMELINDO ADKINS [facility] Comment on above: Performed By: #### ERTPF #### [employer] [address] [place] [address] Oyster Cultivator: Dheeraj Garcia MD 09-01-2020 04:45-0400 Respiratory Rate 15 /min [facility] [place] 08-31-2020 18:45-0400 BMI (Body Mass Index) 38.72 kg/m2 [facility] [place] 08-31-2020 18:45-0400 Body weight 105.55 kg [facility] [place] 08-31-2020 18:45-0400 Height 165.[address] [facility] [place] [facility] [place] 08-31-2020 00:34-0400 Respiratory rate NOT REPORTED HER[facility]ELINDO ADKINS [facility] Comment on above: Performed By: #### ERTPF #### [facility] [address] [place] [address] Oyster Cultivator: Dheeraj Garcia MD 08-30-2020 23:08-0400 Respiratory rate NOT REPORTED [facility] [place] Encounters Encounter Date Encounter Type Care Provider Facility Start: 08-26-2025 ambulatory Arturo DOLAN Facili ty:[facility] [place] Start: 03-30-2025 End: 03-30-2025 ambulatory AB [facility] Start: 02-22-2025 End: 02-22-2025 ambulatory Arturo DOLAN [facility] Start: 02-22-2025 End: 02-22-2025 Patient encounter procedure Arturo DOLAN [facility] Start: 02-21-2025 End: 02-21-2025 ambulatory Arturo DOLAN Facility:[facility] [place] Start: 02-07-2025 End: 02-07-2025 ambulatory Arturo DOLAN Facility:[facility] [place] Start: 06-23-2024 End: 06-23-2024 ambulatory Dom R NILL Facility:[id number] Start: 05-13-2024 End: 05-13-2024 ambulatory Dom R NILL Facility:[facility] Start: 05-13-2024 End: 05-13-2024 Patient encounter procedure Dom R NILL [facility] [place] Start: 04-23-2024 ambulatory Dom NILL Facility:[facility] Start: 12-30-2023 End: 12-30-2023 Patient encounter procedure Arturo R MAGDALENO [facility] Start: 07-13-2023 End: 07-13-2023 Emergency department patient visit Astrit H Hacecelia [facility] Start: 04-15-2023 End: 04-15-[address] ROBIN PONCE . Facility:[facility] Start: 04-01-2023 End: 04-01-[address] DANK JOHNSON Facility:[facility] Start: 04-01-2023 End: 04-02-[address] DOCTOR CASTELLON Facility:[facility] Start: 03-24-2023 End: 03-25-[address] DOCTOR CASTELLON Facility:[facility] Start: 02-24-2023 End: 02-24-2023 Observation Sunshine DUARTE [facility] Start: 02-14-2023 End: 02-14-[address] ROBIN PONCE . Facility:[facility] Start: 10-05-2022 End: 10-05-[address] ZELALEM STACY Facility:[facility] Start: 09-23-2022 ambulatory SHAIKH Enio Farley y:[facility] Start: 02-18-2022 End: 02-18-2022 Patient encounter procedure MD Shaikh Hernandez Work Phone: [facility] [place] Start: 02-18-2022 End: 02-18-2022 ambulatory Ese Tan Facility:[facility] Start: 03-21-2021 End: 03-22-2021 ambulatory REBEKA PARDO Facility:[facility] Start: 08-31-2020 End: 09-01-2020 Evaluation and management of inpatient HERMELIDNO ADKINS [facility] Start: 08-30-2020 End: 09-01-2020 Evaluation and management [...] Start: 09-01-2020 INITIATE OXYGEN THERAPY PROTOCOL HERMELINDO Rose BRANDYN Start: 09-01-2020 Echo tthrc r-t 2d w/wom-mode compl spec&colr d HERMELINDO ADKINS Start: 09-01-2020 Echo tthrc r-t 2d w/wom-mode compl spec&colr d Moisés A Tyda Start: 09-01-2020 Assay of ethanol HERMELINDO ADKINS Start: 09-01-2020 Blood count complete auto&auto difrntl wbc HERMELINDO ADKINS Start: 09-01-2020 Comprehensive metabolic panel HERMELINDO Saravia Start: 09-01-2020 Gonadotropin chorionic qualitative HERMELINDO LUCILLE Start: 09-01-2020 Hemoglobin glycosylated a1c HERMELINDO ADKINS Start: 09-01-2020 Lipid panel HERMELINDO LUCILLE Start: 09-01-2020 Cell enumeration immune selectj & id fluid spec HERMELINDO LUCILLE Start: 09-01-2020 Assay of ethanol Hermelindo Mehta Lucille Work Phone: Start: 09-01-2020 BASIC METABOLIC PANEL W/ REFLEX TO MG FOR LOW K Hermelindo Jnaine Adkins Work Phone: Start: 09-01-2020 Blood count complete auto&auto difrntl wbc Hermelindo Janine Adkins Work Phone: Start: 09-01-2020 Gonadotropin chorionic qualitative Hermelindoivana Adkins Work Phone: Start: 09-01-2020 Hemoglobin glycosylated [...] CHEMICAL VTE PROPHYLAXIS HERMELINDO ADKINS Start: 08-31-2020 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 EVAL AND TREAT HERMELINDO ADKINS Start: 08-31-2020 [...] CT LUMBAR SPINE TRAUMA RECONSTRUCTION Pati B Doip Work Phone: Start: 08-30-2020 CT THORACIC SPINE TRAUMA RECONSTRUCTION Pati B Diop Work Phone: Start: 08-30-2020 Ct thorax w/contrast material Pati B Ca lderon Work Phone: Start: 08-30-2020 Ct cervical spine w/o contrast material Pati B Diop Work Phone: Start: 08-30-2020 Blood typing serologic abo Dank Jorgensen n Start: 08-30-2020 TRAUMA PANEL Dank Nunes Start: 10-27-2018 Esophagogastroduodenoscopy Dom NILL Start: 06-08-2015 Cystourethroscopy Dom NILL Start: 03-18-2014 Colonoscopy Dom NILL Start: 11-17-2011 Angioplasty of blood vessel Dom NILL Abdominal hysterectomy Ronob ir FELICIA Appendectomy Ronobir FELICIA Cardiac catheterization Jose ael NILL Closed fracture of p atella (disorder) Ronobir FELICIA Colonoscopy Ronobir FELICIA Colonoscopy Dom NILL Exploratory laparotomy Ronob ir FELICIA History of coronary artery bypass grafting H/O coronary artery bypass surgery MD Shaikh Hernandez Work Phone: Placement of stent i n coronary artery Dom MENDEZ Tonsillectomy Dom MENDEZ Vaginal hysterectomy Dom MENDEZ Plan of Treatment Date Care Activity Detail Author Start: 09-01-2021 Creatinine measurement Creatinine mo nitoring [place], [place] Start: 09-01-2021 HbA1c (Bld) [Mass fraction] A1C test (Diabetic or Prediabetic) [place] Start: 09-01-2021 Lipid panel Lipid screen [place], [place] Start: 09-01-2021 Potassium monitoring Potassium monit oring [place] Start: 08-31-2020 Annual Wellness Visi t (AWV) Annual Wellness Visit (AWV) [place] Start: 07-18-2020 Influenza vaccination Flu vaccine (# 1) [place], [place] Start: 2007 Screening for malign ant neoplasm of breast Breast cancer screen [place], [place] Start: 2007 Screening for malign ant neoplasm of colon Colon cancer screen colonoscopy [place], [place] Start: 2007 Shingles Vaccine (1 of 2) Shingles V accine (1 of 2) [place] Start: 1978 Screening for malign ant neoplasm of cervix Cervical cancer screen [place], [place] Start: 1976 DTaP/Tdap/Td vaccine (1 - Tdap) DTaP/Tdap/Td vaccine (1 - Tdap) [place] Start: 1975 Diabetic microalbumi betzy test Diabetic microalbuminuria test [place], [place] Start: 1972 HIV screening HIV screen [place], [place] Start: 1967 Diabetic foot examination Diabetic f oot exam [place] Start: 1967 Diabetic retinal exam Diabetic retin al exam [place] Start: 1957 Hepatitis C screening Hepatitis C sc reen [place], [place] Oxygen therapy [[facility]] Initiate Oxygen Therapy Protocol Respiratory Care Routine Daily until discontinued starting 08/31/2020 [place] Comment on above: Daily until disconti nued starting 08/31/2020 End: 08-31-2020 Speech and language therapy regime [place] Comment on above: One Time for 1 Occur rences starting 08/31/2020 until 08/31/2020 Immunizations Immunization Date Immunization Notes Care Provider Ronny pathak 12-30-2023 influenza virus vaccine, unspecified formulation Dom NILL [facility] 08-17-2021 influenza virus vaccine, unspecified formulation Ronobir FELICIA [facility] 04-19-2021 SARS-CoV-2 (COVID-19 ) mRNA-1273 vaccine Dom NILL [facility] 02-15-2021 SARS-CoV-2 (COVID-19 ) Ad26 vaccine, recombinant Ronobir FELICIA [facility] 02-15-2021 SARS-CoV-2 (COVID-19 ) mRNA BNT-162b2 vax [employer] [facility] 01-25-2021 SARS-CoV-2 (COVID-19 ) mRNA BNT-162b2 vax Dom NILL [facility] 01-15-2021 SARS-CoV-2 (COVID-19 ) Ad26 vaccine, recombinant Ronobir FELICIA [facility] 09-19-2017 pneumococcal conjuga te vaccine, 13 valent Arturo DOLAN [facility] [place] Payers Date Payer Category Payer Medicare [id number] 2024 Medicare [id number] 2022 Self-pay [id number] 1959 Medicare [id number] 1.2.8 [id number] 1959 Self-pay [id number] 1957 Unknown [id number] 2.16.8 [id number] 1957 Unknown [id number] 2.16.8 40.1.533923.3.579.2.647 1957 Unknown [id number] 2.16.84 0.1.244972.3.579.2.593 1957 Unknown [id number] 2.16.84 0.1.692882.3.579.2.593 1957 Unknown [id number] 2.16.84 0.1.921129.3.579.2.593 1957 Unknown [id number] 2.16.84 0.1.355832.3.579.2.593 1957 Unknown [id number] 2.16.84 0.1.206138.3.579.2.593 1957 Unknown [id number] 2.16.84 0.1.107996.3.579.2.593 1957 Unknown [id number] 2.16.84 0.1.887259.3.579.2.593 1957 Unknown [id number] 2.16.8 40.1.447694.3.579.2.727 1957 Unknown [id number] 2.16.8 40.1.686951.3.579.2.727 1957 Unknown [id number] 2.16.8 40.1.295868.3.579.2.727 1957 Unknown [id number] 2.16.8 40.1.232473.3.579.2.727 1957 Unknown [id number] 2.16.8 40.1.754833.3.579.2.727 1957 Unknown [id number] 2.16.8 40.1.406314.3.579.2.727 Unknown [id number] 2.16.8 40.1.208968.3.579.2.531 Social History Date Type Detail Facility Tobacco smoking stat [facility] Unknown if ever smoked [employer] [place] Sex Assigned At Not on file [facility] [place] Start: 03-19-2021 Tobacco smoking stat [facility] Ex-smoker (finding) [facility] Start: 1955 Sex Assigned At Female F [facility] Start: 02-24-2023 End: 02-21-2025 Tobacco smoking status Heavy tobacco smoker (finding) [facility] Comment on above: 1 pack a day Sex Assigned At Female [facility] Tobacco smoking status Never [facility] Comment on above: 1 pack a day Sexual Orientation [facility] Start: 08-22-2010 Sex Female (finding) [facility] Functional Status Date Assessment Result Facility 02-22-2025 Functional Status N/A [facility] 05-13-2024 Functional Status N/A [facility] [place] 12-30-2023 Functional Status N/A [facility] 07-13-2023 Functional Status N/A [facility] 02-24-2023 Functional Status No [facility] 02-24-2023 Functional Status [facility] Clinical Notes 02-24-2023 to 03-30-2025 Note Date & Type Note Facility 03-30-2025 Note [facility] Cardiology Clinic Note Chief Complaint: Patient here for 1 year follow up hypertension, chronic systolic heart failure, and CAD. Had routine labs with lipid panel in January 2025, and CTA chest last month. She hasn't been taking Farxiga because it stopped coming in the mail. She recently moved and didn't update the mail order company. Dr. Ponce switched her simvastatin to rosuvastatin a few months ago after lab results. Denies chest pain. Says her LLOYD remains unchanged. Continues to smoke 1 PPD. HPI: Jessi Avila is a 69 y.o. female History of hypertension, dyslipidemia, coronary [...] on insulin. Cardiology ROS: Review of Systems HENT: Positive for hearing loss. Cardiovascular: Positive for dyspnea on exertion and palpitations (with over-exertion). Musculoskeletal: Positive for falls. Neurological: Positive for dizziness and light-headedness (upon standing). All other systems reviewed and are negative. [...] Iodinated contrast media, Aspirin, Atorvastatin, Cat/feline products, [place], Topiramate, Blue dye, Iodine, and Lisinopril Medications Current Outpatient Medications: amLODIPine (Norvasc) 5 mg tablet, Take 1 tablet (5 mg) by mouth once daily as directed. (Patient not taking: Reported on 01/14/2024), Disp: 90 tablet, Rfl: 3 aspirin 81 mg EC tablet, Take 81 mg by mouth in the morning., Disp: , Rfl: buPROPion XL (Wellbutrin XL) 150 mg 24 hr tablet, bupropion HCl XL 150 mg 24 hr tablet, extended release, Disp: , Rfl: carvedilol (Coreg) 25 mg tablet, Take 25 mg by mouth with breakfast and with evening meal., Disp: , Rfl: clopidogrel (Plavix) 75 mg tablet, Take by mouth in the morning., Disp: , Rfl: dapagliflozin propanediol (Farxiga) 10 mg, Take 1 tablet (10 mg) by mouth in the morning., Disp: 90 tablet, Rfl: 3 diphenhydrAMINE (Benadryl Allergy) 50 mg tablet, Take one tablet [address] Scan, Disp: 1 tablet, Rfl: 0 DULoxetine (Cymbalta) [address] capsule, Take 1 capsule by mouth in the morning., Disp: , Rfl: empagliflozin (Jardiance) 25 mg, Take 1 tablet (25 mg) by mouth once daily as directed., Disp: 30 tablet, Rfl: 11 esomeprazole (NexIUM) [address] capsule, Take 1 capsule (40 mg) by mouth before breakfast. Do not open capsule., Disp: 90 capsule, Rfl: 3 glimepiride (Amaryl) 4 mg tablet, glimepiride 4 [...] mouth in the morning., Disp: , Rfl: predniSONE (Deltasone) 50 mg tablet, Take one tablet at 8:45 pm, 2:45 am and at 7:[address] Scan, Disp: 3 tablet, Rfl: 0 simvastatin (Zocor) 40 mg tablet, Take 40 mg by mouth at bedtime., Disp: , Rfl: Last Recorded Vitals BP 122/68 (BP Location: Left arm, Patient Position: Sitting) Pulse 74 Ht 1.651 m (5' 5 ) Wt [...] mood, affect, and judgement. Investigations: Echocardiogram : (more content not included)... [facility] 02-22-2025 Hospital Discharge instructions Patient Education 02/22/2025 [...] Up Care 02/21/2025 14:28:09 With:Arturo DOLAN Address: [address] [place] [phone] Business (1) When:08/24/2025 14:55:23 [facility] 02-22-2025 Note Patient Education Custom Cystoscopy with [...] you have a fever over 100 degrees [facility] 02-21-2025 Note Patient Education Pulmonary Medicine Steps [...] require a prescription. You can also purchase mhya-vap-cuhssul medicines. Medicines may have nicotine in them [...] and encouragement. Call telephone quitlines, such as 9-089-KBGB-NOW, reach out to support groups, or work [...] away, not s (more content not included)... [facility] 05-13-2024 Note General Surgery Offi ce/Clinic Note Chief Complaint consultation for rectal bleeding HPI Staff 68 year old female presents on consultation from Dr. Ponce for rectal bleeding. Presented to [place] ED 04/21 with complaint of 6 day [...] referred for rectal bleeding; patient seen in [facility] ED 04/21/24 for 6 day h/o [...] 3. Antiplatelet or antithrombotic long-term use (Z79.02: manager terminal (current) use of antithrombotics/antiplatelets) hold Plavix 5 [...] these. Follow-up No (more content not included)... [facility] Comment on above: Result Comment: Elec tronically Signed By: ANDREA PRADO, Dom Funes\Date and Time Signed: 05/13/24 11:47 EDT 12-30-2023 Hospital Discharge instructions Patient Education 12/30/2023 [...] DOLAN Address: [facility] [address] [place] [address] Business (1) When:03/29/2024 11:56:00 Comments:With a stone metabolic workup [facility] 07-13-2023 Hospital Discharge instructions Patient Education [...] to strengthen the arm. General instructions Take unnb-duj-zqjmmjl and prescription medicines only as told by [...] provider. Document Revised: 07/19/2022 Document Reviewed: 07/19/2022 [email or web address] Patient Education 2022 [facility]ESI. 07/13/2023 12:19:06 Muscle Strain Muscle Strain A [...] is not too tight. General instructions Take kgyw-zhs-bcfckub and prescription medicines only as told by [...] provider. Document Revised: 01/21/2022 Document Reviewed: 01/21/2022 [email or web address] Patient Education 2022 MESI. Follow Up Care 07/13/2023 11:23:52 With:Robin Ponce Address: [address] [place], [place] [id number] Business (1) When:07/16/2023 12:02:34 [facility] 07-13-2023 Evaluation + Plan note Extrac sherita from: Title:ED Note Author:Mathew Montana PA-C te:07/13/23 Shoulder pain (M25.519: Pain in unspecified shoulder) Ordered: acetaminophen-oxycodone, 1 tab(s), Oral, q6hr as needed for pain for 3 day(s), 15 tab(s), Refill(s) 0, [id number], 165, cm, 07/13/23 11:34:00 EDT, Height/Length Dosing, 95.5, kg, 07/13/23 11:34:00 EDT, Weight Dosing [facility]04-10-2023 Evaluation + Plan noteExtracted from: Title:Discharge Note [...] BID, PRN With When Contact Information Robin Chemo [address] [place] [phone] Business (1) Additional Instructions: Office is closed for lunch between Noon and 1 p.m. Please contact office for follow up appointment. Thank you! SHAIKH MARY Within 5 to 7 days [place] [address] Business (1) Additional Instructions: Not a patient. Syncope, Onvs-lu-Fccj Extracted from: Title:APSO Note Author:Leann GUNTER MD [...] heart monitor. Check orthostatic vital signs. Ordered: [facility] Hospital Care/Day Moderate 35 Minutes 69287 2. RAMA (acute kidney injury) (N17.9: Acute kidney failure, unspecified) Acute kidney injury secondary to ATN from dehydration and antihypertensives. Resolved. Treated with IV fluid. Ordered: [facility] Hospital Care/Day Moderate 35 Minutes 42237 3. Hypokalemia (E87.6: Hypokalemia) Secondary to poor oral intake. Potassium level improving to 3.4. We will give patient additional potassium chloride. Ordered: potassium chloride, 40 mEq = 2 tab(s), Tab-ER, Oral, Once, Stop date 02/24/23 10:00:00 EDT, Routine, Start date 02/24/23 10:00:00 EDT, 02/24/23 9:46:00 EDT [facility] Care/Day Moderate 35 Minutes 54759 4. Diabetes mellitus (E11.9: Type 2 diabetes mellitus without complications) Continue sliding scale insulin. Ordered: [facility] Care/Day Moderate 35 Minutes 32790 5. High cholesterol (E78.00: Pure hypercholesterolemia, unspecified) On Lipitor at home. Ordered: [facility] Care/Day Moderate 35 Minutes 78014 6. Hypertension (I10: Essential (primary) hypertension) Blood pressure on the low side of normal. 7. CAD (coronary artery disease) (I25.10: Atherosclerotic heart disease of [place] coronary artery without angina pectoris) Continue on aspirin, Plavix. 8. Aortic aneurysm (I71.9: Aortic aneurysm of unspecified site, without rupture) Status post surgery. 9. Obese (E66.9: Obesity, unspecified) Recommend therapeutic lifestyle modification changes. 10. On deep vein thrombosis (DVT) prophylaxis (Z79.899: Other manager terminal (current) drug therapy) Heparin. Disposition: Home soon pending physical therapy evaluation. I discussed the diagnosis and plan of care with the patient at the bedside. Moderate level of MDM based on addressing above issues. This documentation was transcribed using voice recognition software. Several attempts were made to ensure accuracy. However inadvertent computerized digital field service technician errors may be present. Leann Gunter. [...] deep vein thrombosis (DVT) prophylaxis (Z79.899: Other penitentiary (current) drug therapy) SCD, heparin Orders: acetaminophen, [...] XR Spine Lumbosacral 2 or 3 Views [facility]04-10-2023 Hospital Discharge instructions Patient Education 02/24/2023 11:49:54 Syncope, Xabn-qk-Wfpr Syncope Syncope is when you pass out [...] pee (urine) pale yellow. General instructions Take pste-hcq-saharpq and prescription medicines only as told by [...] 04/21/2009 Document Revised: 12/16/2018 Document Reviewed: 12/16/2018 [email or web address] Patient Education 2020 [email or web address] Follow Up Care 02/24/2023 00:01:37 With:Robin Ponce Address: [address] [place] [address] [place] [address]- Business (1) When: Unknown Comments:Office is closed for lunch between Noon and 1 p.m. Please contact office for follow up appointment.Thank you! With:SHAIKH MARY Address: [address] [place] [address] Business (1) When:5 to 7 days Comments:Not a patient. [facility] Future Appointments Appointment Date:08/26/2025 09:30:00 AM Scheduled Provider:Arturo DOLAN MD Location:[facility] Appointment Type:URO Office Visit [facility] Evaluation noteNo assessment information available [facility] Work Phone: Hospital course Narrative No data available for this section [facility] No data available for this section [facility] Progress note No data available for this section [facility] Summary Purpose Family History No [...] EDT Continuity of Care Form Patient Name: Jessi Avila : 1955 Admit date: 08/30/2020 Discharge [...] Assisted Dressing Independent Toileting Assisted Feeding Independent Waiter Independent Med Delivery whole Wound Care Documentation [...] Discharging to Facility/ Agency Name: [facility] FAX [address] [facility] [address] Address: Phone: Fax: Dialysis Facility (if applicable) Name: Address: Dialysis Schedule: Phone: Fax: Rim Fire Priming Operator/Fabric And Textile Factory Worker signature: EDT PHYSICIAN SECTION Prognosis: Good Condition at Discharge: Stable Rehab Potential (if transferring to Rehab): {Prognosis:[id number]} Recommended Labs or Other Treatments After Discharge: Physician Certification: I certify the above information and transfer of Jessi Avila is necessary for the continuing treatment [...] called to the trauma nurse line at [phone] and please leave a message. Trauma is a life-threatening condition. Your doctor will want to closely monitor you. Be sure to goto all of your appointments. * Attachments The following attachments cannot be sent through Care Everywhere. * Fall Prevention (Guyanese) * Falls: Get Up Safely Instruction (Guyanese) * Vasovagal Syncope (Guyanese) documented in this encounter History of Present Illness * Debi Marques OT - 09/01/2020 2:46 PM EDT Occupational Therapy Occupational Therapy Initial Assessment Date: 09/01/2020 Patient Name: Jessi Avila : 1955 Date of Service: 09/01/2020 [...] 4 wheeled walker, Cane, Quad cane, Crutches, Enroller, Sock aid(pt reported no use of DME at baseline) ADL Assistance: Independent Homemaking Assistance: Independent Homemaking Responsibilities: Yes Meal Prep Responsibility: Primary Laundry Responsibility: Primary Cleaning Responsibility: Primary Ambulation Assistance: Independent Transfer Assistance: Independent Active Health Specialist: Yes Mode of Transportation: Car Occupation: [...] feeling like L LE was going to bucklingduring functional mobility. pt with no LOB ADL [...] L LE. pt unable to identify when video game script writer was touching L UE (on elbow [...] Plan Times per week: 3-5x/wk AM-PAC Score [facility] Inpatient Daily Activity Raw Score: 16 (09/01/201440) [facility] Inpatient ADL T-Scale Score : 35.96 (09/01/201440) ADL Inpatient [facility] 0-100% Score: 53.32 (09/01/201440) ADL Inpatient [facility] G-Code Modifier : CK [...] activity in order to increase coordination and breaker up strength to L hand Short term goal 6: dem SBA during functional transfers/functional mobility with LRD, as needed Therapy Time Individual Concurrent Group Co-treatment Time In 1316 Time Out 1404 Minutes 48 Variance: 40 Debi Marques OTR/L * Taya Bergeron, 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 - 09/01/2020 11:39 AM EDT Speech Language Pathology Facility/Department: [address] ORTHO/MED SURG Initial Speech/Language/Cognitive Assessment NAME: Jessi Avila : 1955 ADMISSION DATE: 08/30/2020 ADMITTING DIAGNOSIS: has Fall; Hemiplegic migraine; Syncope and collapse; Hypertensive urgency; Complicated migraine; History of stroke; and Head injury on their problem list. Date of Eval: 09/01/2020 Evaluating Therapist: Debi Andrade Primary Complaint: Jessi Avila is a 64 y.o. female with history of stroke and falling who fell upon standing from the toilet tonight, upon which she hit her head on the bathtub. +LOC, on Plavix. Taken to [place] where a stroke alert was initiated. CT head at 6pm today at [facility] [place] did not show intracranial bleed. Transferred to [place] for trauma and neurology work-up. Upon arrival, Pt without neurological deficit, GCS 15, c/o REYNA. Pt deemed hemodynamically stable and was sent to CT. Pain: Pain Assessment Pain Assessment: Faces Pain Level: 0 Assessment: Pt presents with mild-moderate cognitive deficits characterized by difficulty with immediate and short-term memory, verbal reasoning skills, and word associations. Pt. [place], which may haveaffected results of evaluation. Multiple repetitions provided throughout evaluation. Pt. Presents with no dysarthria, no O/M deficits at this time. ST to follow up and provide treatment to address noted deficits. Education provided. Recommendations: Requires 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 Intervention: Yes Duration/Frequency of Treatment: 3-5X/week D/C [...] Time Out 1126 Minutes 12 Completed by: eDbi Andrade Horse Racetrack Manager Clinician Cosigned By: Taya Bergeron M.A.CCC/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 09/01/2020 11:40 AM * Caleb Jefferson MD - 09/01/2020 10:26 AM EDT PROGRESS NOTE PATIENT NAME: Jessi Avila DATE: 09/01/2020 SURGEON: [facility] [...] discharge CC: I have a headache SUBJECTIVE Jessi Dendinger is doing well this morning. She has [...] MD 09/01/2020 4:00 PM * Nader Petit, MICA MINER - 09/01/2020 10:02 AM EDT Physical Therapy Facility/Department: [address] ORTHO/MED SURG Daily Treatment Note NAME: Jessi Avila : 1955 Date of Service: 09/01/2020 [...] Safe use of RW Barriers to Learning: [place] REQUIRES PT FOLLOW UP: Yes Activity Tolerance [...] 44 Timed Code Treatment Minutes: 40 Minutes MICA MINER returned to pt's room to have her attempt stair management, to return home safely Individual Individual Time In 1140 Time Out 1205 Minutes 25 Timed Code Treatment Minutes: 9 Minutes (a doctor interrupted PT, to assess the pt) Nader Petit, MICA MINER * Debi Marques OT - 09/01/2020 8:34 AM EDT Occupational Therapy Not Seen Note DATE: 09/01/2020 Name: Jessi Avila : 1955 Patient not available for [...] [facility] Initial Assessment NAME: Jessi Avila : 1955 Chief Complaint Patient presents [...] Assistance: Independent Transfer Assistance: Independent Active Health Specialist: Yes Mode of Transportation: Car Occupation: [...] Restraints Initially in place: No AM-PAC Score [facility] Inpatient Mobility Raw Score : 13 (08/31/201509) [facility] Inpatient T-Scale Score : 36.74 (08/31/201509) Mobility [...] section and content) DATE CREATED AUTHOR 04/06/2019 [facility] DATE CREATED AUTHOR AUTHOR'S ORGANIZ ATION 09/12/2020 [facility] DATE CREATED AUTHOR AUTHOR'S ORGANIZ ATION 03/28/2021 [facility] DATE CREATED AUTHOR AUTHOR'S ORGANIZ ATION 04/25/2023 [facility] DATE CREATED AUTHOR AUTHOR'S ORGANIZ ATION 07/04/2024 [facility] DATE CREATED AUTHOR AUTHOR'S ORGANIZ ATION 02/26/2025 [facility] DATE CREATED AUTHOR AUTHOR'S ORGANIZ ATION 04/04/2025 [facility] Reason for Visit (unrecogniz ed section and content) Reason Comments Fall Trauma Status Reason Specialty Diagnoses / Procedures Referre d By Contact Referred To Contact Diagnoses Syncope and collapse Procedures Syncope and collapse Hermelindo Adkins MD [address] [facility] [address] [place] [address] [facility] Care Teams (unrecognized sec tion [...] BE BASED ON THE PRIMARY CLINICAL RECORDS. [employer] provides no warranty or guarantee of the accuracy or completeness of information in this document.
--- OUTSIDE RECORDS SUMMARY | 2025-05-01 16:33 | XMS_ITS | Clinical Summary ---
Author Organization [facility] Address [address] [place] [address] Care Team Providers Care Aquatics Instructor Name Role Phone Unavailable Primary Care Provider Unavailabl e Social History Tobacco Use Types Packs/Day Years Used Date Smoking Tobacco: Never Assessed Comments Unknown Sex and Gender Information Value Date Recorded Sex Assigned at Not on file Legal Sex Female 6:53 PM EDT Gender Identity Not on file Sexual Orientation Not on file Last Filed Vital Signs Vital Sign Reading Time Taken Comments Blood Pressure 162/75 02/13/2022 12:00 PM EDT Pulse - - Temperature - - Respiratory Rate - - Oxygen Saturation - - Inhaled Oxygen Concentration - - Weight 104 kg (230 lb) 02/13/2022 12:00 PM EDT Height 167.6 cm (5' 6 ) 02/13/2022 12:00 PM EDT Body Mass Index 37.12 02/13/2022 12:00 PM EDT Plan of Treatment Health Maintenance Due Date Last Done Comments CT Colonography 1955 Colonoscopy 1955 Colorectal Cancer Screening 1955 FIT-DNA 1955 FIT 1955 FOBT 1955 Sigmoidoscopy 1955 Mammogram 1997 Pneumococcal Vaccine: 65+ Ye ars (3 of 3 - PCV20 or PCV21) 09/19/2022 09/19/2017, 08/21/2016 Influenza Vaccine (Season Ended) 2025 09/13/20 21
--- OUTSIDE RECORDS SUMMARY | 2025-05-01 16:33 | XMS_ITS | Clinical Summary ---
Author Organization [facility] Address [address] [place] [address] Care Team Providers Care Kelp Gatherer Name Role Phone Danilo Mclain MD Primary Care Provider [phone] Medications clonazePAM (KLONOPIN) 0.5 MG tablet Take 1 tablet by mouth daily. 08/15/2020 Active clopidogrel (PLAVIX) 75 MG tablet Take 1 tablet by mouth daily 08/17/2020 Active simvastatin (ZOCOR) 40 MG tablet Take 1 tablet by mouth daily 08/17/2020 Active rizatriptan (MAXALT) 10 MG tablet Take 1 tablet by mouth every 2 hours as needed for Migraine 08/02/2020 Active cloNIDine (CATAPRES) 0.1 MG tablet Take 1 tablet by mouth 3 times daily 06/01/2020 Active irbesartan (AVAPRO) 150 MG tablet Take 1 tablet by mouth daily 08/14/2020 Active DULoxetine (CYMBALTA) 60 MG extended release capsule Take 1 capsule by mouth daily 08/22/2020 Active hydrOXYzine (VISTARIL) 25 MG capsule Take 1 capsule by mouth 4 times daily as needed for Anxiety 06/01/2020 Active doxepin (SINEQUAN) 10 MG capsule Take 1 capsule by mouth 2 times daily 06/01/2020 Active aspirin 81 MG EC tablet Take 1 tablet by mouth daily 30 tablet 3 09/02/2020 Active butalbital-acet aminophen-caffe ine (FIORICET, ESGIC) 50-325-40 MG per tablet Take 1 tab only for severe headache. Can repeat after 4 hrs. Max 2 tabs/24 hrs. Max 4 tabs/week 15 tablet 3 09/01/2020 Active Active Problems Problem Noted Date Diagnosed Date Syncope and collapse 08/31/2020 Hemiplegic migraine 08/30/2020 Hypertensive urgency Complicated migraine History of stroke Head injury Resolved Problems Problem Noted Date Diagnosed Date Resolved Date Fall 08/30/2020 09/29/2020 Social History Tobacco Use Types Packs/Day Years Used Date Smoking Tobacco: Never Assessed Comments Unknown Sex and Gender Information Value Date Recorded Sex Assigned at Not on file Legal Sex Female 5:49 PM EST Gender Identity Not on file Sexual Orientation Not on file Last Filed Vital Signs Vital Sign Reading Time Taken Comments Blood Pressure 158/85 09/01/2020 4:00 PM EDT Pulse 72 09/01/2020 2:12 PM EDT Temperature 36.5 C (97.7 F) 09/01/2020 12:27 PM EDT Respiratory Rate 15 09/01/2020 4:45 AM EDT Oxygen Saturation 94% 09/01/2020 12: 27 PM EDT Inhaled Oxygen Concentration - - Weight 105.6 kg (232 lb 11.2 oz) 08/31/2020 6:45 PM EDT Height 165.1 cm (5' 5 ) 08/31/2020 6:45 PM EDT Body Mass Index 38.72 08/31/2020 6:45 PM EDT Plan of Treatment Not on file Insurance [employer] MEDICARE MEDICARE Advance Directives * Full Code (Latest Code Status on File) Date Activated Date Inactivated Comments 08/31/2020 3:54 AM 09/01/2020 8:57 PM * Full Code Date Activated Date Inactivated Comments 08/31/2020 3:54 AM 08/31/2020 3:54 AM Care Teams Kelp Gatherer Relationship Specialty Start Date End Date Danilo Mclain MD [address] [place] [address] PCP - General Family Medicine 08/31/20
--- OUTSIDE RECORDS SUMMARY | 2025-05-01 16:33 | XMS_ITS | Clinical Summary ---
Author Organization [employer] [facility] Address [id number] [address] [place] [address] Care Team Providers Care Heel Sprayer First Name Role Phone Danilo Mclain MD Primary Care Provider [phone] Allergies Active Allergy Reactions Criticality Noted Date Comments Aspirin GI Disturbance Medium 10/22/2016 Atorvastatin muscle cramps,Other (See Comments) Medium 11/04/2014 States pain in groin Blue Dye Other (See Comments) 11/04/2014 Cat/Feline Products Hives Medium 10/22/2016 Iodinated Contrast Media Swelling High 10/22/2016 Iodine And Iodide Containing Products Swelling 11/04/2014 Lisinopril (Bulk) Anaphylaxis,Angioede m a High 10/22/2016 Begins with lip tongue swelling and sob [place] Hives Medium 10/22/2016 Topiramate Hives,Other (See Comments) Medium 11/04/2014 Medications carvedilol (COREG) 25 mg tabletIndications: hypertension Take 25 mg by mouth 2 (two) times a day with meals Indications: Hypertension. Active tiZANidine (ZANAFLEX) 4 mg tablet Take 4 mg by mouth every 6 (six) hours as needed for muscle spasms (written as 3 times day pt states only takes once day at bedtime). Active simvastatin (ZOCOR) 40 mg tabletIndications: mixed hyperlipidemia Take 40 mg by mouth nightly Indications: MIXED HYPERLIPIDEMIA. Active isosorbide mononitrate (IMDUR) 30 mg 24 hr tabletIndications: Chronic Stable Angina Pectoris Take 60 mg by mouth daily Indications: Chronic Stable Angina Pectoris (DO NOT USE). Active clopidogrel (PLAVIX) 75 mg tabletIndications: pt advised by mirlande to stop med 3 days prior to surgery Take 75 mg by mouth nightly Indications: pt advised by mirlande to stop med 3 days prior to surgery. Active glimepiride (AMARYL) 4 mg tabletIndications: type 2 diabetes mellitus Take 4 mg by mouth respiratory nightly Indications: TYPE 2 DIABETES MELLITUS. Active metFORMIN (GLUCOPHAGE) 1000 mg tabletIndications: type 2 diabetes mellitus Take 1,000 mg by mouth 2 (two) times a day with meals Indications: TYPE 2 DIABETES MELLITUS. Active fluticasone-salmet tao (ADVAIR) 250-50 mcg/dose DISKUSIndications: pt doesnt take daily, uses PRN, advised to use daily Inhale 1 puff 2 (two) times a day Indications: pt doesnt take daily, uses PRN, advised to use daily. Active albuterol (PROVENTIL HFA;VENTOLIN HFA) 90 mcg/actuation inhaler Inhale 2 puffs every 6 (six) hours as needed for wheezing. Active pantoprazole (PROTONIX) 40 mg EC tablet Take 40 mg by mouth daily. Active pioglitazone (ACTOS) 15 mg tablet Take 15 mg by mouth daily. Active diphenhydrAMINE (BENADRYL) 25 mg capsule Take 25 mg by mouth every 6 (six) hours as needed (headache). Active ondansetron (ZOFRAN) 4 mg tablet Take 4 mg by mouth every 6 (six) hours as needed for nausea or vomiting. Active ibuprofen (ADVIL,MOTRIN) 600 mg tablet Take 600 mg by mouth every 6 (six) hours as needed for headaches. Active SUMAtriptan (IMITREX) 100 mg tablet Take 100 mg by mouth once as needed for migraine. May repeat in 2 hours if unresolved. Do not exceed 200 mg in 24 hours. Active Active Problems Problem Noted Date Diagnosed Date Severe episode of recurrent major depressive disorder, without psychotic features 08/14/2019 NEGRITA (generalized anxiety disorder) 08/14/2019 MDD (major depressive disord er), recurrent episode, moderate 03/08/2019 Stroke-like symptoms 03/05/2019 Hypertension 10/22/2016 Diabetes 10/22/2016 GERD (gastroesophageal reflux disease) 6 Achilles tendon rupture 10/22/2016 Resolved Problems Problem Noted Date Diagnosed Date Resolved Date Depression 10/22/2016 03/08/2019 Immunizations No known immunizations Family History Medical History Relation Name Comments Alzheimer's disease Father Diabetes Father Alzheimer's disease Mother Diabetes Mother Heart disease Mother Heart failure Mother Anesthesia problems Neg Hx Relation Name Status Comments Father Alive Mother Social History Tobacco Use Types Packs/Day Years Used Date Smoking Tobacco: Former Cigarettes 1.5 45 1 12/23/1968 - 10/22/2014 Smokeless Tobacco: Never Comments:pt denied any curre nt use Alcohol Use Standard Drinks/Week Comments No 0 (1 standard drink = 0.6 oz pur e alcohol) Childcare Answer Date Recorded Childcare Unknown 04/28/2019 Employment Answer Date Recorded Employment Unknown 04/28/2019 Purpose - Life Answer Date Recorded Purpose and direction in life Unknown Comments No Sex and Gender Information Value Date Recorded Sex Assigned at Not on file Legal Sex Female 11:53 AM EDT Gender Identity Not on file Sexual Orientation Not on file Last Filed Vital Signs Vital Sign Reading Time Taken Comments Blood Pressure 132/55 08/16/2019 4:07 PM EDT Pulse 70 08/16/2019 4:07 PM EDT Temperature 36.7 C (98.1 F) 08/16/2019 4:07 PM EDT Respiratory Rate 18 08/16/2019 4:07 PM EDT Oxygen Saturation 97% 08/16/2019 4:07 PM EDT Inhaled Oxygen Concentration - - Weight 100.4 kg (221 lb 5.5 oz) 019 12:00 AM EDT Height 165.1 cm (5' 5 ) 08/13/2019 1:12 PM EDT Body Mass Index 36.83 08/13/2019 1:12 PM EDT Plan of Treatment Health Maintenance Due Date Last Done Comments Depression Screening 1969 Tobacco Screening 1969 Adult BMI Screening 1975 DTaP,Tdap and Td Vaccines (1 - Tdap) 1976 Zoster (Shingles) Vaccine (1 of 2) 2007 Fall Risk Screening 2022 Influenza Vaccine 07/18/2025 09/13/2021, , 09/19/2017, Additional history exists Goals Goal Patient Goal Type Associated Problems Recent Progress Patient-Stated? Author <enter goal here> General Yes Mera Mitchell LSW Note: Evaluation of progress towards goal: patient states goal is to feel better and return home with spouse, pt agreeable to SNF if needed depending how she is doing prior to discharge in order to get rehab and the return home. Pt open to HC as well if needed. safe discharge home General Yes Mera Escoto, RN Note: Evaluation of progress towards goal: Return home with self care and family support. Medical Devices Not on file Insurance [employer] MEDICARE Advance Directives * Full Code (Latest Code Status on File) Date Activated Date Inactivated Comments 08/13/2019 7:45 AM 08/16/2019 8:20 PM Care Teams Heel Sprayer First Relationship Specialty Start Date End Date Daniol Mclain MD PCP - General 10/28/16
--- OUTSIDE RECORDS SUMMARY | 2025-05-01 16:33 | XMS_ITS | Clinical Summary ---
Author Organization [facility] Address [address] [place], [place] [address] Care Team Providers Care Pharmacometrician Name Role Phone Kenisha Alvarez MD Primary Care Provider [phone] Social History Tobacco Use Types Packs/Day Years Used Date Smoking Tobacco: Never Assessed Comments Unknown Sex and Gender Information Value Date Recorded Sex Assigned at Not on file Legal Sex Female 3:09 PM EST Gender Identity Not on file Sexual Orientation Not on file Plan of Treatment Not on file Insurance [facility] MEDICARE Care Teams Pharmacometrician Relationship Specialty Start Date End Date Kenisha Alvarez MD PCP - General Family Medicine 09/29/13
--- OUTSIDE RECORDS SUMMARY | 2025-05-01 16:33 | XMS_ITS | Patient Health Record ---
Author Organization The [facility] in [place] Address [address] [place] [address] Care Team Providers Care Dining Room Host/Hostess Name Role Phone Royer Ponce Primary Care Provider Allergies Allergen (clinical drug ingredient) Drug/Non Drug [...] Unknown Allergy Active Strawberries Unknown Allergy Active Results Component Value Reference Range Notes MM tomosynthesis screening B I Reviewed date:08/31/2024 05:42:45 PM Interpretation: Performing Lab: Notes/Report: Source Facility: [place] [address] Mammography Report Signed Patient: JESSI SOSA MR#: [id number] : 1955 Acct:[id number] Age/Sex: 68 / F ADM Date: 08/31/24 Loc: MAMMO Attending Dr: Robin Ponce M.D. Ordering Physician: Robin Ponce M.D. Results: Date of Service: 08/31/24 Follow Up: Procedure(s): MM tomosynthesis screening BI Accession Number(s): [id number] cc: Robin Ponce M.D. Patient Name: JESSI SOSA MR#: [id number] : 1955 Exam Date: 08/31/2024 Ordering Doctor: DR Robin Ponce . RADIOLOGY REPORT PROCEDURE: MM TOMOSYNTHESIS SCREENING BI COMPARISON: MG MAMM SCREEN 3D FELY CAD, 01/04/2022. MM TOMOSYNTHESIS SCREENING BI, 08/27/2023. INDICATIONS: Screening Calculator Name NCI Breast Cancer Risk Assessment Tool 5 Year Breast Cancer Risk 1.50% Lifetime Breast Cancer Risk 5.40% Personal Breast Cancer No Personal Ovarian Cancer No Treatments excision of cancerous lesion from bladder wall Family Cancers Grandmother-paternal with breast cancer at age 75. LOCATION: [facility] BREAST COMPOSITION: The breasts are heterogeneously dense,which may obscure small masses. FINDINGS: DIAGNOSTIC CATEGORY 2--BENIGN FINDING. NO CHANGE FROM COMPARISON. Scattered benign-appearing calcifications are present. Scattered benign-appearing lymph nodes are present. RIGHT BREAST: No significant suspicious finding. LEFT BREAST: No significant suspicious finding. RECOMMENDATIONS: ROUTINE MAMMOGRAM AND CLINICAL EVALUATION IN 12 MONTHS. PLEASE NOTE: A NORMAL MAMMOGRAM DOES NOT EXCLUDE THE POSSIBILITY OF BREAST CANCER. A CLINICALLY SUSPICIOUS PALPABLE LUMP SHOULD BE BIOPSIED. Dictated by: Pineda Robin MD on 08/31/2024 at 13:47 Approved by: Pineda Robin MD on 08/31/2024 at 13:48 Dictated By: Pineda Robin M.D. Signed By: 08/31/24 1349 DD/ 48 TD/TT: Improvement Rn: [place] [address] Mammography Report Signed Patient: JESSI SOSA MR#: [id number] : 1955 Acct:[id number] Age/Sex: 68 / F ADM Date: 08/31/24 Loc: MAMMO Attending Dr: Tiffani Ponce M.D. Ordering Physician: Robin Ponce M.D. Results: Date of Service: 08/31/24 Follow Up: Procedure(s): MM tomosynthesis screening BI Accession Number(s): [id number] cc: Robin Ponce M.D. Patient Name: JESSI SOSA MR#: [id number] : 1955 Exam Date: 08/31/2024 Ordering Doctor: DR Robin Ponce . RADIOLOGY REPORT PROCEDURE: MM TOMOSYNTHESIS SCREENING BI COMPARISON: MG MAMM SCREEN 3D FELY CAD, 01/04/2022. MM TOMOSYNTHESIS SCREENING BI, 08/27/2023. INDICATIONS: Screening Calculator Name NCI Breast Cancer Risk Assessment Tool 5 Year Breast Cancer Risk 1.50% Lifetime Breast Canc er Risk 5.40% Personal Breast Canc er No Personal Ovarian Can cer No Treatments excision of cancerous lesion from bladder wall Family Cancers Grandmother-paternal with breast cancer at age 75. LOCATION: [facility] BREAST COMPOSITION: The breasts are heterogeneously dense,which may obscure small masses. FINDINGS: DIAGNOSTIC CATEGORY 2--BENIGN FINDING. NO CHANGE FROM COMPARISON. Scattered benign-appearing calcifications are present. Scattered benign-appearing lym ph nodes are present. RIGHT BREAST: No significant suspicious finding. LEFT BREAST: No significant suspicious finding. RECOMMENDATIONS: ROUTINE MAMMOGRAM AN D CLINICAL EVALUATION IN 12 MONTHS. PLEASE NOTE: A JOSEPH L MAMMOGRAM DOES NOT EXCLUDE THE POSSIBILITY OF BREAST CANCER. A CLINICALLY SUSPICIOUS PALPABLE LUMP SHOULD BE BIOPSIED. Dictated by: Pineda Robin MD on 08/31/2024 at 13:47 Approved by: Pineda Robin MD on 08/31/2024 at 13:48 Dictated By: Doroteo Robin M.D. Signed By: 08/31/241348 DD/ 48 TD/TT: Improvement Rn: CT lung screening low-dose Reviewed date:02/14/2025 09:09:15 PM Interpretation: Performing Lab: Notes/Report: Source Facility: [place] [address] [place] [address] CT Scan Report Signed Patient: JESSI SOSA MR#: [id number] : 1955 Acct:[id number] Age/Sex: 69 / F ADM Date: 02/14/25 Loc: CT Attending Dr: Robin Ponce M.D. Ordering Physician: Robin Ponce M.D. Date of Service: 02/14/25 Procedure(s): CT lung screening low-dose Accession Number(s): [id number] cc: Robin Ponce M.D. The [place] [address] Patient Name: JESSI SOSA MRN: [id number] date: 1955 Sex: F Assigned Patient Location: CT Current Patient Location: CT Accession/Order Number: [id number] Exam Date: 02/14/2025 14:40 Report Date: 02/14/2025 14:44 At the request of: ROBIN PONCE MD Procedure: CT lung screening low-dose CT Chest lung screening without contrast TECHNIQUE: Axial imaging with 2-D reconstruction. The CT exam was performed using one or more the following dose reduction techniques: Automated exposure control, adjustment of the MA and/or Kv according to patient size, or use of the iterative reconstruction technique. History: Lung screening. Current smoker. COMPARISON: None THYROID: Unremarkable TRACHEA AND BRONCHI: Patent ESOPHAGUS: Unremarkable. HEART: Within normal limits PERICARDIAL EFFUSION: None CORONARY ARTERY CALCIFICATION: Present MEDIASTINUM: No adenopathy. No pneumoperitoneum. No mediastinal hematoma. PULMONARY IRMA: No hilar mass or adenopathy is seen. THORACIC AORTA atherosclerosis without aneurysm. LUNG NODULE None LUNGS: Lungs are clear PLEURAL EFFUSION: None PNEUMOTHORAX: No pneumothorax seen. CHEST WALL: No abnormality AXILLA:Unremarkable BONY STRUCTURES sternotomy. UPPER ABDOMEN: Images of the upper abdomen are noncontributory. CT/CT lung screening low-dose IMPRESSION: No visible lung nodule. FINAL ASSESSMENT: Negative. Lung-RADS Version 1.0 Assessment Category: 1 REMARKS: Continued annual screening with LDCT in 12 months is recommended. Impression dictated by: Yusef Ley M.D.02/14/2025 2:44 PM Dictation Location: [place] [address] Electronically authenticated by: [id number] Y Date: 02/14/2025 14:44 Dictated By: Yusef Ley D.O. Signed By: 02/14/25 1447 DD/ 1444 TD/TT: Improvement Rn: The [address] [address] [address] Scan Report Signed Patient: JESSI SOSA MR#: [id number] : 1955 Acct:[id number] Age/Sex: 69 / F ADM Date: 02/14/25 Loc: CT Attending Dr: Tiffani Ponce M.D. Ordering Physician: Robin Ponce M.D. Date of Service: 02/14/25 Procedure(s): CT tu g screening low-dose Accession Number(s): [id number] cc: Robin Ponce M.D. [place] [address] Patient Name: JESSI SOSA MRN: [id number] date: 1955 Sex: F Assigned Patient Location: CT Current Patient Location: CT Accession/Order Numb er: [id number] Exam Date: 02/14/2025 14:40 Report Date: 02/14/2025 14:44 At the request of: ROBIN PONCE MD Procedure: CT lung screening low-dose CT Chest lung screen ing without contrast TECHNIQUE: Axial imaging with 2-D reconstruction. The CT exam was performed using one or more th e following dose reduction techniques: Automated exposure control, adjustment of the MA and/or Kv according to patient size, or use of the iterative reconstruction technique. History: Lung screening. Current smoker. COMPARISON: None THYROID: Unremarkable TRACHEA AND BRONCHI: Patent ESOPHAGUS: Unremarkable. HEART: Within normal limits PERICARDIAL EFFUSION : None CORONARY ARTERY CALCIFICATION: Present MEDIASTINUM: No adenopathy. No pneumoperitoneum. No mediastinal hematoma. PULMONARY IRMA: No hilar mass or adenopathy is seen. THORACIC AORTA atherosclerosis without aneurysm. LUNG NODULE None LUNGS: Lungs are clear PLEURAL EFFUSION: None PNEUMOTHORAX: No pneumothorax seen. CHEST WALL: No abnormality AXILLA:Unremarkable BONY STRUCTURES sternotomy. UPPER ABDOMEN: Image s of the upper abdomen are noncontributory. CT/CT lung screening low-dose IMPRESSION: No visib le lung nodule. FINAL ASSESSMENT: Negative. Lung-RADS Version 1. 0 Assessment Category: 1 REMARKS: Continued annual screening with LDCT in 12 months is recommended. Impression dictated by: Yusef Ley M.D.02/14/2025 2:44 PM Dictation Location: [place] [address] Electronically authenticated by: [id number] Y Date: 02/14/2025 14:44 Dictated By: Yusef Ley D.O. Signed By: 02/14/25 1447 DD/ 1444 TD/TT: Improvement Rn: CT angio chest Reviewed date:03/05/2025 11:40:55 AM Interpretation: Performing Lab: Notes/Report: Source Facility: [place] [address] CT Scan Report Signed Patient: JESSI SOSA MR#: [id number] : 1955 Acct:[id number] Age/Sex: 69 / F ADM Date: 03/04/25 Loc: CT Attending Dr: Rebeka Beebe M.D. Ordering Physician: Rebeka Beebe M.D. Date of Service: 03/04/25 Procedure(s): CT angio chest Accession Number(s): [id number] cc: Robin Ponce M.D. [place] [address] Patient Name: JESSI SOSA MRN: [facility]:[id number] date: 1955 Sex: F Assigned Patient Location: CT Current Patient Location: CT Accession/Order Number: [id number] Exam Date: 03/04/2025 09:20 Report Date: 03/04/2025 09:32 At the request of: REBEKA BEEBE MD Procedure: CT angio chest CTA CHEST WITH CONTRAST CLINICAL HISTORY: Follow-up . History of thoracic aortic aneurysm and repair. COMPARISON: None 06/15/2020 TECHNIQUE: Spiral images were obtained through the chest following intravenous administration of 100 mL of opaque 350. Images were reviewed using both narrow and wide window settings. Sagittal, coronal and 3 D volume-rendered reconstructions were performed and reviewed. This CT exam was performed using one or more following dose reduction techniques: Automated exposure control, adjustment of the mA and/or kV according to patient size, or use of iterative reconstruction technique. FINDINGS: Median sternotomy wires are present. The heart is not enlarged. There is no pericardial effusion. There is coronary disease and suspected stents. No aortic aneurysm or dissection is currently seen. There is minor atherosclerotic plaque at the aortic arch. There is adequate opacification of the pulmonary arteries. No emboli are identified. No pathologic lymphadenopathy is seen. There are tiny endplate spurs and subtle dextroscoliotic curvature. There is minimal atelectasis or scarring. There is no consolidation, effusion, pneumothorax or discrete soft tissue nodules. Limited cuts through the upper abdomen show no contributory abnormality. CT/CT angio chest IMPRESSION: STABLE THORACIC AORTA, WITHOUT ANEURYSM OR DISSECTION. NO CT EVIDENCE OF PULMONARY EMBOLISM. NO ACUTE INTRATHORACIC FINDINGS. Impression dictated by: Dona Bernal M.D.03/04/2025 9:32 AM Dictation Location: [place] [address] Electronically authenticated by: [id number] Y Date: 03/04/2025 09:32 Dictated By: Dona Bernal M.D. Signed By: 03/04/2534 DD/ 1 TD/TT: Improvement Rn: [place] [address] CT Scan Report Signed Patient: JESSI SOSA MR#: [id number] : 1955 Acct:[id number] Age/Sex: 69 / F ADM Date: 03/04/25 Loc: CT Attending Dr: Rebeka Beebe M.D. Ordering Physician: Rebeka Beebe M.D. Date of Service: 03/04/25 Procedure(s): CT ang io chest Accession Number(s): [id number] cc: Robin Ponce M.D. [place] [id number] Patient Name: JESSI SOSA MRN: [id number]:[id number] date: 1955 Sex: F Assigned Patient Location: CT Current Patient Location: CT Accession/Order Numb er: [id number] Exam Date: 03/04/2025 09:20 Report Date: 03/04/2025 09:32 At the request of: REBEKA BEEBE MD Procedure: CT angio chest CTA CHEST WITH CONTRAST CLINICAL HISTORY: Follow-up . History of thoracic aortic aneurysm and repair. COMPARISON: None 06/15/2020 TECHNIQUE: Spiral images were obtained through the chest following intravenous administration of 100 mL of opaque 350. Images were reviewed using both narrow an d wide window settings. Sagittal, coronal and 3 D volume-rendered reconstructions were performed and reviewed. This CT exam was performed using one or more following dose reduction techniques: Automated exposure control, adjustment of the mA and/or kV according to patient size, or use of iterative reconstruction technique. FINDINGS: Median sternotomy wires are present. The heart is not enlarged. There is no pericard ial effusion. There is coronary disease and suspected stents. No aortic aneurysm or dissection is currently seen. There is minor atherosclerotic plaq ue at the aortic arch. There is adequate opacification of the pulmonary arteri es. No emboli are identified. No pathologic lymphadenopathy is seen. There are tiny endplate spurs and subtle dextroscoliotic curvature. There is minimal atelectasis or scarring. There is no consolidation, effusion, pneumothor ax or discrete soft tissue nodules. Limited cuts through the upper abdomen show no contributory abnormality. CT/CT angio chest IMPRESSION: STABLE THORACIC AORT A, WITHOUT ANEURYSM OR DISSECTION. NO CT EVIDENCE OF PULMONARY EMBOLISM. NO ACUTE INTRATHORAC IC FINDINGS. Impression dictated by: Dona Bernal M.D.03/04/2025 9:32 AM Dictation Location: [place] [address] Electronically authenticated by: [id number] Y Date: 03/04/2025 09:32 Dictated By: Dona Bernal M.D. Signed By: 03/04/25 0934 DD/ 0932 TD/TT: Improvement Rn: Occult Blood* Reviewed date:02/09/2025 06:39:30 PM Interpretation: Performing Lab: Notes/Report: [facility] , Occult Blood Positive Performing Lab: see note ML - [facility] LB TSH Reviewed date:02/05/2025 11:33:58 AM Interpretation: Performing Lab: Notes/Report: [facility] , Thyroid Stimulating Hormone 1.774 0.358-3.740 uIU/mL Performing Lab: see note ML - [facility] LB T4 Reviewed date:02/05/2025 11:33:58 AM Interpretation: Performing Lab: Notes/Report: [facility] , T4 Thyroxine 7.90 4.80-13.90 ug/dL Performing Lab: see note - [facility] LB PROF 14(COMP METB) Reviewed date:02/05/2025 11:33:58 AM Interpretation: Performing Lab: Notes/Report: [facility] , Sodium 137 136-145 mmol/L Potassium 4.4 3.5-5.1 mmol/L Chloride 103 98-107 mmol/L Carbon Dioxide 26.2 21.0-32.0 mmol/L Anion Gap 12.2 Glucose 200 74-106 mg/dL Blood Urea Nitrogen 14.0 7.0-18.0 mg/dL Creatinine 1.02 0.55-1.02 mg/dL Estimated GFR ( Aleah >60 >=60 mL/min/1.73m 2 Estimated GFR (Non- Prudence 54 >=60 mL/min/1.73m 2 BUN Creatinine Ratio 13.7 Calcium 9.7 8.5-10.1 mg/dL Bilirubin Total 0.8 0.2-1.0 mg/dL Aspartate Amino Transferase 13 15-37 U/L Alanine Aminotransferase 18 14-59 U/L Alkaline Phosphatase 94 46-116 U/L Total Protein 7.7 6.4-8.2 g/dL Albumin Level 4.1 3.4-5.0 g/dL Globulin 3.6 Albumin Globulin Ratio 1.1 Performing Lab: see note ML - [facility] LIPID PROFILE Reviewed date:02/05/2025 11:33:58 AM Interpretation: Performing Lab: Notes/Report: [facility] , Triglycerides 124 <=150 mg/dL Cholesterol 109 <=200 mg/dL HDL Cholesterol 45 40-60 mg/dL > or =60 mg/dl - LOW CARDIOVASCULAR RISK <40 mg/dl - HIGH CARDIOVASCULAR RISK LDL Cholesterol Calculated 39.2 <100 mg/dl OPTIMAL 100-129 mg/dl NEAR OR ABOVE OPTIMAL 130-159 mg/dl BORDERLINE HIGH 160-189 mg/dl HIGH >190 mg/dl VERY HIGH VLDL CHOLESTEROL 24.8 Chol HDL Ratio 2.4 3.3 - 4.4 LOW RISK 4.4 - 7.1 AVERAGE RISK 7.1 - 11.0 MODERATE RISK >11.0 HIGH RISK Performing Lab: see note ML - [facility] LB IRON Reviewed date:02/05/2025 11:33:58 AM Interpretation: Performing Lab: Notes/Report: [facility] , Iron 71.0 50.0-170.0 ug/dL Performing Lab: see note ML - [facility] LB GLYCOHEMOGLOBIN A1C Reviewed date:02/05/2025 11:33:58 AM Interpretation: Performing Lab: Notes/Report: [facility] , Glycohemoglobin A1C 9.0 4.5-6.2 % ADA RECOMMENDED LIMIT 4.0 - 6.0 ADA THERAPEUTIC TARGET < 7.0 ACTION SUGGESTED > 7.0 Estimated Average Glucose 212 Performing Lab: see note ML - [facility] LB FREE T3 Reviewed date:02/05/2025 11:33:58 AM Interpretation: Performing Lab: Notes/Report: [facility] , Free T3 2.66 2.18-3.98 pg/mL Performing Lab: see note ML - [facility] LB CBC AUTO DIFF Reviewed date:02/05/2025 11:33:58 AM Interpretation: Performing Lab: Notes/Report: [facility] , White Blood Count 8.7 4.0-11.0 10 3/uL Red Blood Count 4.86 4.20-5.40 10 6/uL Hemoglobin 15.0 12.0-16.0 g/dL Hematocrit 44.1 36.0-48.0 % Mean Corpuscular Volume 90.7 81.0-99.0 fL Mean Corpuscular Hemoglobin 30.9 26.7-34.0 pg Mean Corpuscular HGB Conc 34.0 29.9-35.2 g/dL Red Cell Distribution Width 12.8 11.0-15.0 % Platelet Count 292 150-450 10 3/uL Mean Platelet Volume 11.2 9.5-13.5 fL Neutrophils Percent Auto 55.8 43.0-75.0 % Lymphocytes Percent Auto 29.8 20.5-60.0 % Monocytes Percent Auto 7.2 1.7-12.0 % Eosinophils Percent Auto 5.2 0.9-7.0 % Basophils Percent Auto 1.8 0.2-2.0 % Immature Granulocytes Pct Auto 0.2 0.0-0.5 % Neutrophils Absolute Auto 4.8 1.4-6.5 10 3/uL Lymphocytes Absolute Auto 2.6 1.2-3.8 10 3/uL Monocytes Absolute Auto 0.6 0.3-0.8 10 3/uL Eosinophils Absolute Auto 0.5 0.0-0.7 10 3/uL Basophils Absolute Auto 0.2 0.0-0.1 10 3/uL Immature Granulocytes Abs Auto 0.02 0.00-0.03 10 3/uL Performing Lab: see note ML - [facility] LB Reason For Referral No Information Medications Medication SIG (Take, Route, Frequency, Duration) Notes Start Date End Date Status buPROPion HCl ER (SR) 150 MG 1 tablet in the morning Orally Once a day for 90 days Active Blood Glucose Meter -- Use glucometer to check glucose once daily DX E11.9 for 365 days ONE TOUCH per insurance 01/18/2025 Active Clopidogrel Bisulfate 75 MG TAKE 1 TABLET EVERY DAY Orally Once a day for 90 days Active Carvedilol 25 MG TAKE 1 TABLET TWICE DAILY WITH FOOD Orally Twice a day for 90 days Active Simvastatin 40 MG TAKE 1 TABLET EVERY EVENING for 90 Active Crestor 5 MG 1 tablet Orally Once a day for 30 days 09/29/2024 Active Pantoprazole Sodium 40 MG TAKE 1 TABLET EVERY DAY for 90 Active tiZANidine HCl 4 MG [...] SUGAR ONE TIME DAILY for 90 Active Hydrocortisone Mayco-Pramoxine 1-1 % 1 application Externally Three times a day 03/15/2025 Active Pramoxine HCl 1 % 1 application to affected area as needed Externally Three times a day 03/15/2025 Active Hydrocortisone 2.5 % 1 application Externally Once a day 03/15/2025 Active Blood Glucose Meter -- Use glucose meter daily to monitor glucose levels DX E11.9 for 365 days 06/08/2024 Active Benadryl Allergy 25 MG 1 tablet at bedti me as needed Orally Once a day for 30 days PRN Active DULoxetine HCl 60 MG TAKE 1 CAPSULE EVER Y DAY for 90 Active Hydrocortisone Mayco-Pramoxine 2.5-1 % 1 application Externally Three times a day 04/23/2024 Active Glimepiride 4 MG TAKE 2 TABLET Orally Once a day for 90 days Active Isosorbide Mononitrate ER 30 MG 1 tablet in the morning Orally BID for 90 days Active Insulin Syringes (Disposable) U-100 0.5 ML as needed with insulin dosing 06/24/2023 Active Metoclopramide HCl 10 MG TAKE 1 TABLET THREE TIMES DAILY BEFORE MEALS for 90 Active Lancets 33G - Use 1 lancet to check glucose once daily DX E11.9 for 90 days 01/18/2025 Active NovoLIN 70/30 FlexPen (70-30) 100 UNIT/ML [...] hours PRN for 3 PRN 01/07/2024 Active Social History Tobacco Use: Social History Observation Description Date Details (start date - stop date) Current Smoker 11/17/1989 - NA Tobacco Use/Smoking Question Answer Notes Patient is a current smoker When did you start smoking? 11/17/1989 How often do you smoke cigarettes? every day How many cigarettes a day do you smoke? 6-10 Alcohol Screen (Audit-C) Question Answer Notes Did you have a drink containing alcohol in the p ast year? No Points 0 Interpretation Negative AUDIT-C (Standard) Question Answer Notes Did you have a drink containing alcohol in the p ast year? No Points 0 Interpretation Negative Problems Problem Type SNOMED Code ICD Code Onset Dates Problem Status W/U Status Risk Notes Problem Chronic obstructive pulmonary disease (20480460) Chronic obstructive pulmonary disease, unspecified (J44.9) Active confirmed Problem 52094833 Age-related osteoporosis without current pathological fracture (M81.0) Active confirmed Problem 25142656 Anxiety disorder , unspecified (F41.9) Active confirmed Problem Cerebrovascular disease (71830605) Other cerebrovascular disease (I67.89) Active confirmed Problem Primary osteoarthritis (057510845) Unilateral primary osteoarthritis, right knee (M17.11) Active confirmed Problem Chest pain (89113216) Chest pain (R07.9) Active confirmed Problem Hyperlipidemia (52862651) Hyperlipidemia (E78.5) Active confirmed Problem Hypertension (96821248) Hypertension (I10) Active confirmed Problem Lumbosacral radiculopathy (0504064) Lumbosacral radiculopathy (M54.17) Active confirmed Problem Hypothyroid (21605918) Hypothyroid (E03.9) Active confirmed Problem Left ventricular hypertrophy (97401742) Left ventricular hypertrophy (I51.7) Active confirmed Problem First degree atrioventricular block (275654459) First degree AV block (I44.0) Active confirmed Problem Bradycardia (52662520) Bradycardia (R00.1) Active confirmed Problem Osteopenia (298298016) Osteopenia (M85.80) Active confirmed Problem Insomnia (317914892) Insomnia (G47.00) Active confirmed Problem Syncope (418888539) Syncope (R55) Active confir med Problem Coronary artery disease (92236981) CAD (coronary artery disease) (I25.10) Active confirmed Problem Impacted cerumen (43502486) Cerumen impaction (H61.20) Active confirmed Problem Facial palsy (000972316) Facial droop (R29.810) Active confirmed Problem Rectal bleeding (63255012) Rectal bleeding (K62.5) Active confirmed Problem Migraine aura without headache (950186639) Migraine aura without headache (G43.109) Active confirmed Problem Hemorrhoids (34084408) Hemorrhoids (K64.9) Active confirmed Problem Tendonitis of right shoulder (3127805023598138) Right shoulder tendinitis (M75.81) Active confirmed Problem Overweight (995239736) Over weight (E66.3) Active confirmed Problem Chronic systolic heart failure (560103241) Chronic systolic heart failure (I50.22) Active confirmed Problem Transient cerebral ischemia (165867772) Transient cerebral ischemia (G45.9) Active confirmed Problem Pruritic disorders (027422166) Pruritic condition (L29.9) Active confirmed Problem Shoulder impingement syndrome (013211211) Shoulder impingement syndrome (M75.40) Active confirmed Problem Impacted cerumen (24453273) Ceruminosis, right (H61.21) Active confirmed Problem Diastolic dysfunction (9488080) Diastolic dysfunction (I51.89) Active confirmed Problem Diabetes mellitus (21013725) Diabetes mellitus (E11.9) Active confirmed Problem Disease caused by Severe acute respiratory syndrome coronavirus 2 (disorder) (569238884) COVID-19 virus infection (U07.1) Active confirmed Problem 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 Problem Headache (96802716) Headache, unspecified (R51.9) Active confirmed Problem Dissection of ascending aorta (320457513) Dissection of ascending aorta (I71.010) Active confirmed Vital Signs Blood pressure diastolic 70 mm Hg 03/15/2025 Height 65 in 03/15/2025 Blood pressure systolic 152 mm Hg 03/15/2025 Weight 209.0 lbs 03/15/2025 BMI 34.78 kg/m2 03/15/2025 Encounters Encounter Location Date Provider Diagnosis [facility] [address] [place] [address] 11/12/2024 Royer Ponce Chronic obstructive pulmonary disease, unspecified J44.9 and Migraine aura without headache G43.109 [place] [address] [place] [address] 03/15/2025 Royer Ponce Rectal bleeding K62. [address] [place] [address] [place] [address] 02/04/2025 Royer Ponce Diabetes mellitus E1 1.9 ; Chronic obstructive pulmonary disease, unspecified J44.9 ; Hypertension I10 ; Left ventricular hypertrophy I51.7 ; Over weight E66.3 and COVID-19 virus infection U07.1 [facility] [address] [place] [address] 02/14/2025 Ryoer karissa [facility] [address] [place] [address] 02/25/2025 Royer karissa [facility] [address] [place] [address] 03/15/2025 Royer karissa [facility] [address] [place] [id number] 03/17/2025 Royer karissa [facility] [address] [place] [address] 01/05/2025 Royer karissa [facility] [address] [place] [address] 01/07/2025 Royer karissa [facility] [address] [place] [address] 01/18/2025 Royer Chemo [facility] [address] [facility] [place] [address] 02/05/2025 Royer Joshikarissa [facility] [address] [facility] [place] [address] 02/09/2025 Royer Joshikarissa [facility] [address] [facility] [place] [address] 02/09/2025 Royer Ponce [facility] [address] [facility] [place] [address] 08/17/2024 Royer Ponce [facility] [address] [facility] [place] [address] 08/31/2024 Royer Ponce [facility] [address] [facility] [place] [address] 09/28/2024 Royer Joshikarissa [facility] [address] [facility] [place] [address] 12/20/2024 Royer Ponce Diabetes mellitus E1 1.9 ; Other cerebrovascular disease I67.89 ; Chest pain R07.9 and Hypertension I10 [facility] [address] [facility] [place] [address] 12/20/2024 Royer Adikarissa [facility] [address] [facility] [place] [address] 12/28/2024 Royer Ponce Other cerebrovascula r disease I67.89 [facility] [address] [facility] [place] [address] 06/08/2024 Royer Joshikarissa [facility] [address] [facility] [place] [address] 07/08/2024 Royer Ponce [facility] [address] [facility] [place] [address] 07/23/2024 Royer Ponce [facility] [address] [facility] [place] [address] 07/26/2024 Royer Ponce Assessments Encounter Date Diagnosis (ICD Code) Assessment Notes Treatment Notes Treatment Clinical Notes Section Notes 11/12/2024 Chronic obstructive pulmonary disease, unspecified (ICD-10 - J44.9) 11/12/2024 Migraine aura without headache (ICD-10 - G43.109) 02/04/2025 Chronic obstructive pulmonary disease, unspecified (ICD-10 - J44.9) 02/04/2025 Diabetes mellitus (ICD-10 - E11.9) 03/15/2025 Rectal bleeding (ICD-10 - K62.5) 12/20/2024 Diabetes mellitus (ICD-10 - E11.9) 12/28/2024 Other cerebrovascular disease (ICD-10 - I67.89) 12/20/2024 Other cerebrovascular disease (ICD-10 - I67.89) 02/04/2025 Hypertension (ICD-10 - I10) 02/04/2025 Left ventricular hypertrophy (ICD-10 - I51.7) 12/20/2024 Chest pain (ICD-10 - R07.9) 12/20/2024 Hypertension (ICD-10 - I10) 02/04/2025 Over weight (ICD-10 - E66.3) 02/04/2025 COVID-19 virus infection (ICD-10 - U07.1) Plan Of Treatment Pending Test Test Name Order Date Holter Test 02/12/2024 CMP (COMPLETE METABOLIC PANEL) 4 HEMOGLOBIN A1C (GLYCO) 02/04/2025 IRON, TOTAL 02/04/2025 LIPID PANEL (CHOL/TRIG/HDL/LDL) 02/05/20 25 CBC W/AUTO DIFF 12/25/2023 STOOL OCCULT BLOOD 12/25/2023 STOOL OCCULT BLOOD 02/04/2025 GLYCOHEMOGLOBIN A1C 07/09/2023 GLYCOHEMOGLOBIN A1C 12/25/2023 GLYCOHEMOGLOBIN A1C 01/23/2024 LIPID PROFILE 12/25/2023 PROTIME 04/23/2024 MRI BRAIN WO CON 11/12/2024 XR DEXA BONE DENSITY 03/09/2024 THYROID PANEL (T4/TSH/FREE T3) 5 THYROID PANEL (T4/TSH/FREE T3) 4 THYROID PANEL (T4/TSH/FREE T3) 4 Lipid Panel 01/23/2024 CT CHEST LOW DOSE (LDCT) 02/04/2025 CMP (COMP MET ROLON) w/eGFR CKD-EPI 2024 CBC WITH DIFF 02/04/2025 Insurance Providers Payer Name Payer Address Payer Phone Subscriber Number Group Number Insured Name Patient Relationship to Insured Coverage Start Date Coverage End Date [employer] MEDICARE [address] [place] [phone] [id number] Silvia rJessi Self - patient is the insured Medications Administered Medication Instructions Date of Administration Dosage Notes Dexamethasone, 4mg/mL 08/19/2023 12 mg 12m g Ketorolac Tromethamine 06/24/2023 60 mg 60 Ketorolac Tromethamine 01/07/2024 60 mg 60 Ketorolac Tromethamine 03/03/2024 60 mg 60 Ketorolac Tromethamine 11/12/2024 60 mg Norflex 06/24/2023 60 mg 60 Orphenadrine Citrate 01/07/2024 60 mg 60 Orphenadrine Citrate 03/03/2024 60 mg 60 Promethazine, 25 mg 01/07/2024 1 mL 25 Promethazine, 25 mg 03/03/2024 25 mg 25 Promethazine, up to 50 mg 11/12/2024 25 mg Medical (General) History Medical History History ICD Code rectal bleeding abdominal pain diabetes arthritis bladder cancer fibromyalgia GERD hypertension valve replacement stroke Over weight E66.3 COVID-19 virus infection U07.1 Chest pain R07.9 Headache, unspecified R51.9 Shoulder impingement syndrome M75.40 Right shoulder tendinitis M75.81 Lumbosacral radiculopathy M54.17 Unilateral primary osteoarthritis, right knee M17.11 Bradycardia R00.1 Other cerebrovascular disease I67.89 Transient cerebral ischemia G45.9 Chronic systolic heart failure I50.22 Dissection of ascending aorta I71.010 Diastolic dysfunction I51.89 Left ventricular hypertrophy I51.7 Migraine aura without headache G43.109 Diabetes mellitus E11.9 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
--- OUTSIDE RECORDS SUMMARY | 2025-05-01 16:33 | XMS_ITS | Referral Summary ---
Author Organization [facility] Address [address] [place] [address] Care Team Providers Care Salesperson Furs Name Role Phone Danilo Mclain MD Primary Care Provider [phone] Encounters Date Type Department Care Team Description 03/30/2025 Refill [facility] [address] [place] [address] Taya Castillo MA Acute combined systolic and diastolic heart failure (CMS/HCC); Congestive heart failure, unspecified HF chronicity, unspecified heart failure type (CMS/HCC) 03/30/2025 Orders Only [place] [address] [place] [address] Taya Castillo MA 03/30/2025 11:30 AM EDT Office Visit [address] [address] Rebeka Pardo MD Primary hypertension (Primary Dx); Coronary artery disease involving [place] coronary artery of [place] heart without angina pectoris; Dysphagia, unspecified type; Benign essential hypertension; History of repair of thoracic aortic aneurysm 03/03/2025 Orders Only [place] [address] [place] [address] Alexandria Salomon MA Preprocedural examination from Last 3 Months Allergies Active Allergy Reactions Criticality Noted Date Comments Aspirin GI intolerance Medium 10/22/2016 Atorvastatin Other Medium 11/04/2014 States pain in groin Blue Dye Other 11/04/2014 Cat/Feline Products Hives Medium 10/22/2016 Iodinated Contrast Media Swelling High 10/22/2016 Iodine Other 11/04/2014 Lisinopril Other 11/04/2014 [place] Hives Medium 10/22/2016 Topiramate Hives,Other Medium 11/04/2014 Medications buPROPion XL (Wellbutrin XL) 150 mg 24 hr tablet bupropion HCl XL 150 mg 24 hr tablet, extended release Active carvedilol (Coreg) 25 mg tablet Take 25 mg by mouth with breakfast and with evening meal. Active clopidogrel (Plavix) 75 mg tablet Take by mouth in the morning. 10/11/20 Active DULoxetine (Cymbalta) [address] capsule Take 1 capsule by mouth in the morning. 08/22/20 Active glimepiride (Amaryl) 4 mg tablet glimepiride 4 mg tablet Active irbesartan (Avapro) 150 mg tablet Take by mouth in the morning. 08/14/20 Active pantoprazole (ProtoNix) 40 mg EC tablet Take 1 tablet by mouth in the morning. Active simvastatin (Zocor) 40 mg tablet Take 40 mg by mouth at bedtime. 10/11/20 Active metoclopramide (Reglan) 5 mg tablet 10/11/20 Active amLODIPine (Norvasc) 5 mg tabletIndication s:Primary hypertension Take 1 tablet (5 mg) by mouth once daily as directed. 90 tablet 3 03/10/20 23 Active Additional Information Patient not taking.Reported on 01/14/2024 nitroglycerin (Nitrostat) 0.4 mg SL tabletIndication s:Coronary artery disease involving [place] coronary artery of [place] heart without angina pectoris nitroglycerin 0.4 mg sublingual tablet 30 tablet 04/25/20 23 Active hydrOXYzine pamoate (Vistaril) 25 mg capsule Take 25 mg by mouth at bedtime. 07/01/20 23 Active NovoLIN 70-30 FlexPen U-100 100 unit/mL (70-30) injection 06/26/20 23 Active isosorbide mononitrate ER (Imdur) 60 mg 24 hr tabletIndication s:Atherosclerosi s of [place] coronary artery of [place] heart without angina pectoris Take 1 tablet (60 mg) by mouth in the morning. Do not crush or chew. 90 tablet 3 07/08/20 23 Active aspirin 81 mg EC tablet Take 81 mg by mouth in the morning. Active empagliflozin (Jardiance) 25 mgIndications:Ac elsie combined systolic and diastolic heart failure (CMS/HCC) Take 1 tablet (25 mg) by mouth once daily as directed. 30 tablet 11 01/14/20 24 Active Additional Information Patient not taking.Reported on 03/30/2025 esomeprazole (NexIUM) [address] capsuleIndicatio ns:Acute combined systolic and diastolic heart failure (CMS/HCC) Take 1 capsule (40 mg) by mouth before breakfast. Do not open capsule. 90 capsule 3 01/14/20 24 Active Additional Information Patient not taking.Reported on 03/30/2025 predniSONE (Deltasone) 50 mg tabletIndication s:Preprocedural examination Take one tablet at 8:45 pm, 2:45 am and at 7:[address] Scan 3 tablet 03/03/20 25 Active Additional Information Patient not taking.Reported on 03/30/2025 diphenhydrAMINE (Benadryl Allergy) 50 mg tabletIndication s:Preprocedural examination Take one tablet [address] Scan 1 tablet 03/03/20 25 Active rosuvastatin (Crestor) 5 mg tablet Take 1 tablet by mouth in the morning. 03/17/20 25 Active tiZANidine (Zanaflex) 4 mg tablet Take 1 tablet by mouth every 6 (six) hours during the day. 03/17/20 25 Active dapagliflozin propanediol (Farxiga) 10 mgIndications:Co ngestive heart failure, unspecified HF chronicity, unspecified heart failure type (CMS/HCC) Take 1 tablet (10 mg) by mouth once daily as directed. 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 Assessment & Plan (07/08/2023 3:26 PM EDT): Recommended pt to see a migraine specialist in [place] or [place] NEGRITA (generalized anxiety disorder) 08/14/2019 Severe episode of recurrent major depressive disorder, without psychotic features 08/14/2019 MDD (major depressive disord er), recurrent episode, moderate 03/08/2019 Stroke-like symptoms 03/05/2019 Achilles tendon rupture 10/22/2016 Chronic obstructive pulmonary disease, unspecifi ed 08/18/2015 Migraine, unspecified, not i ntractable, with status migrainosus 08/18/2015 Diabetes mellitus due to und erlying condition without complications 08/18/2015 Difficulty in walking, not elsewhere classified 08/18/2015 Hemiplegia and hemiparesis f ollowing cerebral infarction affecting left non-dominant side 08/18/2015 Anxiety disorder, unspecified 08/18/2015 Hyperlipidemia, unspecified 08/18/2015 Major depressive disorder, recurrent, unspecifie d 08/18/2015 Muscle weakness (generalized) 08/18/2015 Obesity, unspecified 08/18/2015 Diabetes 12/15/2014 Hypertension 06/30/2014 Cerebral infarction 06/30/2014 Status post percutaneous transluminal coronary a ngioplasty 05/11/2014 [place] hematuria 11/01/2013 Chronic systolic heart failure 05/13/2012 Assessment & Plan (07/08/2023 3:24 PM EDT): [facility] II- currently LVEF normal 60%- recovered Mild MR and TV regurg Normal rt sided pressure Continue current med regime. Coreg, irbesartan, simvastatin, imdur Palpitations 05/13/2012 Coronary atherosclerosis 05/06/2012 Assessment & Plan (07/08/2023 3:25 PM EDT): Coronary artery disease is stable Continue GDMT- Coreg, simvastatin, imdur continue risk factor modifications- heart healthy diet, regular exercise as tolerated and continue all medications. 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 Disorder of urinary tract 08/14/2011 Benign essential hypertension 08/06/2011 Assessment & Plan (07/08/2023 3:23 PM EDT): Hypertension is well controlled, Continue all current meds Primary malignant neoplasm of bladder 08/06/2011 Uterine leiomyoma 08/06/2011 Immunizations Immunization Administration Dates Next Due Influenza, High Dose Seasona l, Preservative Free 08/17/2021 Influenza, injectable, quadr ivalent, preservative free 09/13/2021,09/19/2017,08/21/2016 Moderna SARS-CoV-2 Vaccination 04/19/2021 Pneumococcal Conjugate PCV 13 09/19/2017 Pneumococcal Polysaccharide PPV23 08/21/2016 Social History Tobacco Use Types Packs/Day Years Used Date Smoking Tobacco: Every Day Cigarettes Smokeless Tobacco: Never Tobacco Cessation:Ready to Q uit: Not Asked; Counseling Given: Not Answered [place] Safety & Environment Answer Date Rec orded Fear of Current or Ex-Partner Not on file Emotionally Abused Not on file 01/08/2024 Physically Abused Not on file 01/08/2024 Sexually Abused Not on file 01/08/2024 Physically or Sexually Abused Not on file Comments Unknown Sex and Gender Information Value Date Recorded Sex Assigned at Not on file Legal Sex Female 9:48 PM EDT Gender Identity Not on file Sexual Orientation Not on file Last Filed Vital Signs Vital Sign Reading Time Taken Comments Blood Pressure 122/68 03/30/2025 11:33 AM EDT Pulse 74 03/30/2025 11:33 AM EDT Temperature - - Respiratory Rate - - Oxygen Saturation 97% 03/30/2025 11:33 AM EDT Inhaled Oxygen Concentration - - Weight 93.4 kg (206 lb) 03/30/2025 11:33 AM EDT Height 165.1 cm (5' 5 ) 03/30/2025 11:33 AM EDT Body Mass Index 34.28 03/30/2025 11:33 AM EDT Plan of Treatment Not on file Insurance * Guarantor: Jessi Sosa Account Type Relation to Patient Date of Phone Billing Address Personal/Family Self 1955 x0 (Home) [address] [place] [address] [employer] Care Teams Salesperson Furs Relationship Specialty Start Date End Date Danilo Mclain MD [address] [facility] [address] [address] PCP - General 07/08/22
--- OUTSIDE RECORDS SUMMARY | 2025-05-01 16:33 | XMS_ITS | Clinical Summary ---
Author Organization [facility] Address [address] [place] [address] Care Team Providers Care Agricultural Agent Name Role Phone Danilo Mclain MD Primary Care Provider [phone] Allergies Active Allergy Reactions Criticality Noted Date Comments Aspirin GI intolerance Medium 10/22/2016 Atorvastatin Other Medium 11/04/2014 States pain in groin Blue Dye Other 11/04/2014 Cat/Feline Products Hives Medium 10/22/2016 Iodinated Contrast Media Swelling High 10/22/2016 Iodine Other 11/04/2014 Lisinopril Other 11/04/2014 [place] Hives Medium 10/22/2016 Topiramate Hives,Other Medium 11/04/2014 [...] capsule by mouth in the morning. 08/22/20 20 Active glimepiride (Amaryl) 4 mg tablet glimepiride 4 mg tablet Active irbesartan (Avapro) 150 mg tablet Take by mouth in the morning. 08/14/20 20 Active pantoprazole (ProtoNix) 40 mg EC tablet Take 1 tablet by mouth in the morning. Active simvastatin (Zocor) 40 mg tablet Take 40 mg by mouth at bedtime. 10/11/20 Active metoclopramide (Reglan) 5 mg tablet 10/11/20 Active amLODIPine (Norvasc) 5 mg tabletIndication s:Primary hypertension Take 1 tablet (5 mg) by mouth once daily as directed. 90 tablet 3 03/10/20 Active Additional Information Patient not taking.Reported on 01/14/2024 nitroglycerin (Nitrostat) 0.4 mg SL tabletIndication s:Coronary artery disease involving [place] coronary artery of [place] heart without angina pectoris nitroglycerin 0.4 mg sublingual tablet 30 tablet 04/25/20 23 Active hydrOXYzine pamoate (Vistaril) 25 mg capsule Take 25 mg by mouth at bedtime. 07/01/20 23 Active NovoLIN 70-30 FlexPen U-100 100 unit/mL (70-30) injection 06/26/20 23 Active isosorbide mononitrate ER (Imdur) 60 mg 24 hr tabletIndication s:Atherosclerosi s of [place] coronary artery of [place] heart without angina pectoris Take 1 tablet (60 mg) by mouth in the morning. Do not crush or chew. 90 tablet 3 07/08/20 Active aspirin 81 mg EC tablet Take 81 mg by mouth in the morning. Active empagliflozin (Jardiance) 25 mgIndications:Ac elsie combined systolic and diastolic heart failure (CMS/HCC) Take 1 tablet (25 mg) by mouth once daily as directed. 30 tablet 11 01/14/20 Active Additional Information Patient not taking.Reported on [...] prior to Ct Scan 3 tablet 03/03/20 Active Additional Information Patient not taking.Reported on [...] pt to see a migraine specialist in [place] or [place] NEGRITA (generalized anxiety disorder) 08/14/2019 Severe episode [...] neoplasm of bladder 08/06/2011 Uterine leiomyoma 08/06/2011 Encounters Date Type Department Care Team Description 03/30/2025 11:30 AM EDT Office Visit [address] [address] Rebeka Pardo MD Primary hypertension (Primary Dx); Coronary artery disease involving [place] coronary artery of [place] heart without angina pectoris; Dysphagia, unspecified type; Benign essential hypertension; History of repair of thoracic aortic aneurysm 03/30/[address] [address] Taya Castillo MA Acute combined systolic and diastolic heart failure (CMS/HCC); Congestive heart failure, unspecified HF chronicity, unspecified heart failure type (CMS/HCC) 03/30/2025 Orders Only [address] [address] Taya Castillo MA 03/03/2025 Orders Only [facility] [address] [place] [address] Alexandria Salomon MA Preprocedural examination from Last 3 Months Immunizations Immunization Administration Dates Next Due Influenza, High Dose Seasona l, Preservative Free 08/17/2021 Influenza, injectable, quadr ivalent, preservative free 09/13/2021,09/19/2017,08/21/2016 Moderna SARS-CoV-2 Vaccination 04/19/2021 Pneumococcal Conjugate PCV 13 09/19/2017 Pneumococcal Polysaccharide PPV23 08/21/2016 Family History Medical History Relation Name Comments No Known Problems Father No Known Problems Mother Relation Name Status Comments Father Mother Social History Tobacco Use Types Packs/Day [...] 03/30/2025 11:33 AM EDT Plan of Treatment Health Maintenance Due Date Last Done Comments CT Colonography 1955 Colonoscopy 1955 Colorectal Cancer Screening 1955 Diabetes: Hemoglobin A1C 1955 FIT-DNA 1957 FIT 1955 FOBT 1955 Medicare Annual Wellness (AWV) 1955 Sigmoidoscopy 1955 Diabetes: Retinopathy Screening 1967 Depression Screening 1969 Diabetes: Urine Protein Screening 1976 Adult Tetanus 1979 Mammogram 1997 Zoster Vaccines (1 of 2) 2007 Fall Risk Screening 2022 COVID-19 Vaccine ( season) 2024 12/30/2023, 04/19/2021, 04/19/2021, Additional history exists Influenza Vaccine Completed 09/18/2024, , 09/13/2021, Additional history exists Pneumococcal Vaccine: 50+ Years Completed 09/18/2024, 09/19/2017, 08/21/2016 HIB Vaccines Aged Out No longer eligi ble based on patient's age to complete this topic HPV Vaccines Aged Out No longer eligi ble based on patient's age to complete this topic IPV Vaccines Aged Out No longer eligi ble based on patient's age to complete this topic Meningococcal B Vaccine Aged Out No l onger eligible based on patient's age to complete this topic Meningococcal Vaccine Aged Out No [place] eligible based on patient's age to complete this topic Rotavirus Vaccines Aged Out No longer eligible based on patient's age to complete this topic Insurance x0 (Home) [address] [address] [employer] Care Teams Agricultural Agent Relationship Specialty Start Date End Date Danilo Mclain MD [address] [facility] [place] [id number] PCP - General 07/08/22
--- OUTSIDE RECORDS SUMMARY | 2025-05-01 16:34 | XMS_ITS | Patient Health Record ---
Author Organization [facility] Address [address] [place] [address] Care Team Providers Care Assembler Installer General Name Role Phone Bart Lopez Unavailable [phone] Yari Sandi Unavailable [phone] Allergies Allergen (clinical drug ingredient) Drug/Non Drug Allergy documented on EMR Reaction Allergy Type Onset Date Status IV DYE (uncoded) Unknown Allergy Act frandy [place] STRAWBERRY (uncoded) Unknown Allergy Active atorvastatin Lipitor Unknown Drug Allergy Acti ve lisinopril lisinopril Unknown Drug Allergy Activ e Reason For Referral Reason APPROVED ........PLE ASE OBTAIN AUTHORIZATION FOR MRI LUMBAR Diagnosis 1 Lumbar radiculopathy (M54.16) Referral Organization [facility] Referring Provider First Name Bart Referring Provider Last Name Jessica Referring Provider Speciality Orthopedic Surgery Referred Organization [facility] Referred Address [place], [place], Procedure 1 MRI Lumbar Spine w/o Dye ([id number]) General Notes Sonal Musa 025 01:50:36 PM >NO DICTATIONDimple Amy 03/29/2025 08:49:46 AM >APPROVED PER [facility] AUTH #[id number] VALID 03/29/2025-04/28/2025 COPY IN CHART MA NOTIFIED REF FXAED TO Jessica LYON Monica 03/29/2025 09:27:44 AM >FAXED Referral Priority Routine Social History Tobacco Use: Social History Observation [...] Problem Status W/U Status Risk Notes Problem [id number] Lumbar radiculopathy (M54.16) Active confirmed Problem [id number] Primary osteoarthritis of left hip (M16.12) Active confirmed Vital Signs Height 5'5 in 03/28/2025 Weight 212 lbs 03/28/2025 BMI 35.27 03/28/2025 Encounters Encounter Location Date Provider Diagnosis [facility] [address] [facility] [place] [address] 03/28/2025 Bart Lopez Lumbar radiculopathy M54.16 [facility] [address] [place] [address] 03/14/2025 Sandi Greenberg Primary osteoarthritis of left hip M16.12 Assessments Encounter Date Diagnosis (ICD Code) Assessment Notes Treatment Notes Treatment Clinical Notes Section Notes 03/14/2025 Primary osteoarthritis of left hip (ICD-10 - M16.12) 03/28/2025 Lumbar radiculopathy (ICD-10 - M54.16) 03/28/2025 Other For her lumbar degenerative disc disease at L5-S1 with radiculopathy I recommended physical therapy and MRI scan to evaluate for potential disc herniation in need for epidural injection. She will follow-up once the MRI is complete. Import medication 03/14/2025 Other Patient does carty ve hip DJD and seems to be having [...] how she is doing. Plan Of Treatment Pending Test Test Name Order Date MRI : Lumbosacral Spine W/O Contrast - 7 214703/28/2025 [facility]- LUMBAR 4 VIEW [id number] 03/28/2025 [facility]- PT/OT EVAL AND TREAT 3X/WEEK FOR 6 WEEKS 03/28/2025 Insurance Providers Payer Name Payer Address Payer Phone Subscriber Number Group Number Insured Name Patient Relationship to Insured Coverage Start Date Coverage End Date Medicare [employer] by Debby [employer] [address] [place] [address] [id number] MARTHA ALBRIGHT Self - patient is the insured 5 Medical (General) History Medical History History ICD Code Asthma/COPD Cancer Heart problems: Type II diabetes Stroke High Blood Pressure Kidney trouble Drug Allergies Surgical History Surgery Date(Month/Year) Heart surgery 2010
[2025-05-01] MEDS: OXYCODONE HCL/ACETAMINOPHEN 5MG/325MG 1 TAB PO (17:31)
--- NOTE | 2025-05-01 18:41 | ED.LOWEXI1 ---
HPI HPI - Extremity Injury (Lower) General Chief Complaint: Extremity Injury, Lower Stated Complaint: LEFT HIP PAIN Time Seen by Provider: 05/01/25 16:34 Source: patient Mode of arrival: walk-in Limitations: no limitations History of Present Illness HPI Narrative: The patient is coming to the ER with a history of back pain but over the last few days she fell while she was at home on her buttock, and she has been having some left hip and groin pain since then The patient did not take anything for pain and she has not been able to put weight on her left hip Related Data Home Medications ?Medication ?Instructions ?Recorded ?Confirmed carvedilol 25 mg tablet 25 mg PO DAILY 06/15/23 06/23/24 clopidogrel 75 mg tablet 75 mg PO DAILY 06/15/23 06/23/24 duloxetine 60 mg capsule,delayed 60 mg PO DAILY 06/15/23 06/23/24 release glimepiride 4 mg tablet 4 mg PO DAILY 06/15/23 06/23/24 insulin NPH-regular 70-30 U-100 See Protocol subcut 06/15/23 insulin 100 unit/mL subcutaneous pen (Novolin 70-30 FlexPen U-100 Insulin) irbesartan 150 mg tablet 150 mg PO DAILY 06/15/23 06/23/24 pantoprazole 40 mg tablet,delayed 40 mg PO DAILY 06/15/23 06/23/24 release simvastatin 40 mg tablet 40 mg PO DAILY 06/15/23 06/23/24 tizanidine 4 mg tablet 4 mg PO Q8H PRN muscle spasticity 06/15/23 06/23/24 bupropion HCl 150 mg 24 hr tablet, 150 mg PO DAILY 06/16/23 06/23/24 extended release diphenhydramine-phenylephrine 25 1 tab PO TID 06/16/23 06/23/24 mg-10 mg tablet (Allergy and Sinus Relief) isosorbide mononitrate 60 mg 30 mg PO BID 06/16/23 06/23/24 tablet,extended release 24 hr metoclopramide HCl 10 mg tablet 10 mg PO Q8H 06/16/23 06/23/24 aspirin 81 mg capsule 81 mg PO DAILY 04/21/24 06/23/24 Allergies Allergy/AdvReac Type Severity Reaction Status Date / Time lisinopril Allergy Severe Swelling Verified 06/05/24 20:32 of Lip/Tongue/Throat acetaminophen (From Excedrin Allergy Intermediate Hives Verified 04/21/24 20:32 Migraine) aspirin (From Excedrin Allergy Intermediate Hives Verified 04/21/24 20:32 Migraine) caffeine (From Excedrin Allergy Intermediate Hives Verified 04/21/24 20:32 Migraine) Iodinated Contrast Media Allergy Mild Hives Verified 04/21/24 20:32 atorvastatin (From Lipitor) Allergy Unknown Muscle Pain Verified 06/10/24 13:04 strawberry Allergy Muscle Pain Verified 06/10/24 13:04 sumatriptan (From Imitrex) AdvReac Intermediate Nausea Verified 04/21/24 20:32 topiramate (From Topamax) AdvReac Intermediate Nausea Verified 04/21/24 20:32 Opioid HPI Opioid Management Most Recent Pain and Opioid Data: Last Pain Scale 9 Today, 16:30 Last MAR Pain Assessment Today, 17:31 Review of Systems ROS Status of ROS 10 or more systems reviewed and unremarkable except as noted in history and below [facility] Medical History (Updated 03/13/25 @ 19:10 by REYNA Rich) Diverticulosis ?K57.90 - Diverticulosis of intestine, part unspecified, without perforation or abscess without bleeding (ICD-10) Hemiparesis, right ?G81.91 - Hemiplegia, unspecified affecting right dominant side (ICD-10) Renal cyst ?N28.1 - Cyst of kidney, acquired (ICD-10) LVH (left ventricular hypertrophy) ?I51.7 - Cardiomegaly (ICD-10) Rectal bleeding ?K62.5 - Hemorrhage of anus and rectum (ICD-10) Hemorrhoids ?K64.9 - Unspecified hemorrhoids (ICD-10) Calculus, renal ?N20.0 - Calculus of kidney (ICD-10) Hypothyroidism ?E03.9 - Hypothyroidism, unspecified (ICD-10) Hypertension ?I10 - Essential (primary) hypertension (ICD-10) Myocardial infarct ?I21.9 - Acute myocardial infarction, unspecified (ICD-10) COPD (chronic obstructive pulmonary disease) ?J44.9 - Chronic obstructive pulmonary disease, unspecified (ICD-10) Bradycardia ?R00.1 - Bradycardia, unspecified (ICD-10) Asthma ?J45.909 - Unspecified asthma, uncomplicated (ICD-10) [facility] current use of anticoagulant ?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.01 - 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 (ICD-10) Incontinence ?R32 - Unspecified urinary incontinence (ICD-10) Dysuria ?R30.0 - Dysuria (ICD-10) Atypical chest pain ?R07.89 - Other chest pain (ICD-10) Hemiplegic migraine ?G43.409 - Hemiplegic migraine, not intractable, without status migrainosus (ICD-10) Coronary atherosclerosis ?I25.10 - Atherosclerotic heart disease of [place] coronary artery without angina pectoris (ICD-10) Systolic heart failure ?I50.20 - Unspecified systolic (congestive) heart failure (ICD-10) 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 ?Z87.74 - Personal history of (corrected) congenital malformations of heart and circulatory system (ICD-10) Anemia ?D64.9 - Anemia, unspecified (ICD-10) Depression ?F32.A - Depression, unspecified (ICD-10) Right sided weakness ?R53.1 - Weakness (ICD-10) GERD (gastroesophageal reflux disease) ?K21.9 - Gastro-esophageal reflux disease without esophagitis (ICD-10) Dyspnea on exertion ?R06.09 - Other forms of dyspnea (ICD-10) Angina at rest ?I20.89 - Other forms of angina pectoris (ICD-10) Arthritis ?M19.90 - Unspecified osteoarthritis, unspecified site (ICD-10) Fibromyalgia ?M79.7 - Fibromyalgia (ICD-10) Hyperlipidemia ?E78.5 - Hyperlipidemia, unspecified (ICD-10) Bladder cancer ?C67.9 - Malignant neoplasm of bladder, unspecified (ICD-10) Hearing loss ?H91.90 - Unspecified hearing loss, unspecified ear (ICD-10) CVA (cerebral vascular accident) ?I63.9 - Cerebral infarction, unspecified (ICD-10) Diabetes mellitus ?E11.9 - Type 2 diabetes mellitus without complications (ICD-10) Aorta aneurysm ?I71.9 - Aortic aneurysm of unspecified site, without rupture (ICD-10) Achilles rupture ?S86.019A - Strain of unspecified Achilles tendon, initial encounter (ICD-10) Coronary stent occlusion (~2011) ?T82.897A - Other specified complication of cardiac prosthetic devices, implants and grafts, initial encounter (ICD-10) Chest pain ?R07.9 - Chest pain, unspecified (ICD-10) Surgical History (Updated 12/11/23 @ 12:08 by Freda Monteiro NP) Status post cystoscopy with ureteral stent placement ?Z96.0 - Presence of urogenital implants (ICD-10) H/O cystoscopy ?Z98.890 - Other specified postprocedural states (ICD-10) H/O cystoscopy (11/13/23) ?Z98.890 - Other specified postprocedural states (ICD-10) History of tonsillectomy ?Z90.89 - Acquired absence of other organs (ICD-10) History of laparoscopy ?Z98.890 - Other specified postprocedural states (ICD-10) History of colonoscopy ?Z98.890 - Other specified postprocedural states (ICD-10) H/O knee surgery ?Z98.890 - Other specified postprocedural states (ICD-10) H/O knee surgery ?Z98.890 - Other specified postprocedural states (ICD-10) History of appendectomy ?Z90.49 - Acquired absence of other specified parts of digestive tract (ICD-10) History of hysterectomy ?Z90.710 - Acquired absence of both cervix and uterus (ICD-10) History of cardiac catheterization ?Z98.890 - Other specified postprocedural states (ICD-10) History of heart artery stent ?Z95.5 - Presence of coronary angioplasty implant and graft (ICD-10) History of bladder surgery ?Z98.890 - Other specified postprocedural states (ICD-10) Family History (Updated 11/12/23 @ 14:55 by Freda Monteiro NP) Other Family history of diabetes mellitus Family history of hypertension Family history of lung cancer Family history of myocardial infarction Social History (Updated 06/14/24 @ 14:35 by Shell Gray) Within the past year, how often did you have a drink containing alcohol: never Score interpretation: A score less than 3 is consistent with normal alcohol consumption. Smoking status: Heavy tobacco smoker What tobacco products do you use: cigarettes Packs per day: 1 Years smoked: 54 Smoking pack-years: 54.00 Non-prescribed substance use: denies use Previous occupational history: RETIRED Highest level of school completed/degree received: high school graduate Little interest or pleasure in doing things: not at all Feeling down, depressed, or hopeless: not at all Feel stressed/tense/nervous/anxious/difficulty sleeping: only a little Life stressors: recent of family or friend Life stressor details: Husbands Due to disability, difficulty making decisions: No Exam Narrative Exam Narrative: Nurses notes and vital signs reviewed and patient is not hypoxic. Left hip; the patient have normal vascular supply to the lower extremity but she does have tenderness upon palpation of the groin area as well as the left hip but there is still preserved full range of movement General: Well-appearing and in no apparent distress. Skin: Warm, dry, no pallor noted. No rash. Head: Normocephalic, atraumatic. Neck: Supple, non-tender. Eye: Pupils are equal, round and EOMI. No scleral icterus. Ears, Nose, Mouth, and Throat: TM are clear, no nasal mucosal hypertrophy. Oral mucosa is moist, no posterior oropharynx erythema, uvula is mid-line Cardiovascular: Regular Rate and Rhythm without murmur, gallop or rub. Respiratory: No accessory muscle use or respiratory distress. Lungs are clear to auscultation, no wheezing, rales or rhonchi Chest Wall: no tenderness Back: No midline thoracic or lumbar vertebral tenderness. No CVA tenderness GI: Abdomen is soft, non-distended. Normal bowel sounds. No masses appreciated. No tenderness to palpation. No rebound, guarding, or rigidity noted. Neurological: A&O x4. No cranial nerve dysfunction observed. Constitutional Vital Signs, click to edit/add: Last Vital Signs Temp 98.8 F 05/01/25 16:30 Pulse 88 05/01/25 16:30 Resp 18 05/01/25 16:30 BP 162/76 H 05/01/25 16:30 Pulse Ox 98 05/01/25 16:30 O2 Del Method Room Air 05/01/25 16:30 Course Vital Signs Vital signs: Vital Signs Temperature 98.8 F 05/01/25 16:30 Pulse Rate 88 05/01/25 16:30 Respiratory Rate 18 05/01/25 16:30 Blood Pressure 162/76 H 05/01/25 16:30 Pulse Oximetry 98 05/01/25 16:30 Oxygen Delivery Method Room Air 05/01/25 16:30 Temperature 98.8 F 05/01/25 16:30 Pulse Rate 88 05/01/25 16:30 Respiratory Rate 18 05/01/25 16:30 Blood Pressure 162/76 H 05/01/25 16:30 Pulse Oximetry 98 05/01/25 16:30 Oxygen Delivery Method Room Air 05/01/25 16:30 MDM - Extremity Injury (Lower) MDM Narrative Medical decision making narrative: The patient presenting with a groin pain that started after she had a fall there is a high suspicion of possible fracture the patient had a CAT scan of the pelvis pending Patient care will be transferred to Dr. Moreira Discharge Plan Discharge Patient Disposition: Still a Patient
[2025-05-01 19:24] VITALS: BP 175/89; PULSE 77; O2SAT 97
== END 2025-05-01 20:10 | disposition home or self-care (01) ==
PROVIDERS: Emergency Provider Emergency Medicine; PCP Family Medicine
DX: S76.012A Strain of muscle, fascia and tendon of left hip, initial encounter (principal); W18.39XA Other fall on same level, initial encounter; Z90.710 Acquired absence of both cervix and uterus; Z95.5 Presence of coronary angioplasty implant and graft; Z90.49 Acquired absence of other specified parts of digestive tract; F17.210 Nicotine dependence, cigarettes, uncomplicated; Z63.4 Disappearance and death of family member
CPT/HCPCS: 72192; 99284

== ENCOUNTER 2025-05-11 12:31 | Outpatient (OUT) | payer OTHER, SELFPAY ==
--- OUTSIDE RECORDS SUMMARY | 2025-03-15 07:00 | XMS_ITS ---
Author Organization [facility] in [place] Address [address] [place] [address] Care Team Providers Care Food Equipment Service Technician Name Role Phone Royer Mclain Primary Care Provider [phone] Allergies Allergen (clinical drug ingredient) Drug/Non Drug Allergy documented on EMR Reaction Allergy Type Onset Date Status acetaminophen / aspirin / caffeine Excedrin Migraine Unknown Drug Allergy Active sumatriptan Imitrex Unknown Drug Allergy Activ e Iodine Unknown Drug Allergy Active lisinopril Lisinopril Unknown Drug Allergy Activ e topiramate Topamax Unknown Drug Allergy Active Cat dander Cat Dander Unknown Allergy Active Strawberries Unknown Allergy Active REASON FOR VISIT Rectal Bleeding- filling toilet with blood- just had colonoscopy in June- even if passes mahnaz martines Dr [place] has her on steroid pack currently Medications Medication SIG (Take, Route, Frequency, Duration) Notes Start Date End Date Status Simvastatin 40 MG TAKE 1 TABLET EVERY EVENING for 90 Active tiZANidine HCl 4 MG TAKE 1 TABLET THREE TIMES DAILY NEEDED for 90 Active Test Strips - Use 1 strip to check glucose once daily DX E11.9 for 90 days ONE TOUCH per insurance 01/18/2025 Active TRUEplus Lancets 33G - TEST BLOOD SUGAR ONE TIME DAILY for 90 Active True Metrix Blood Glucose Test - TEST BLOOD SUGAR ONE TIME DAILY for 90 Active Pantoprazole Sodium 40 MG TAKE 1 TABLET EVERY DAY for 90 Active Metoclopramide HCl 10 MG TAKE 1 TABLET THREE TIMES DAILY BEFORE MEALS for 90 Active NovoLIN 70/30 FlexPen (70-30) 100 UNIT/ML Inject 20 units Subcutaneous is BS <150, 50 units if >150, BID for 90 days 01/07/2025 Active Nitroglycerin 0.4 MG as directed Sublingual 1 (one) tablet under tongue as directed as needed 1 tablet under tongue for chest pain. May repeat every 5 minutes if still having chest pain- to max of 3 tablets per episode/ PRN 06/24/2023 Active Ondansetron 4 MG 1 tablet on the tongue and allow to dissolve Orally Q 6 hours PRN for 3 PRN 01/07/2024 Active Hydrocortisone Mayco-Pramoxine 2.5-1 % 1 application Externally Three times a day 04/23/2024 Active Glimepiride 4 MG TAKE 2 TABLET Orally Once a day for 90 days Active Isosorbide Mononitrate ER 30 MG 1 tablet in the morning Orally BID for 90 days Active Insulin Syringes (Disposable) U-100 0.5 ML as needed with insulin dosing 06/24/2023 Active Lancets 33G - Use 1 lancet to check glucose once daily DX E11.9 for 90 days 01/18/2025 Active Clopidogrel Bisulfate 75 MG TAKE 1 TABLET EVERY DAY Orally Once a day for 90 days Active Carvedilol 25 MG TAKE 1 TABLET TWICE DAILY WITH FOOD Orally Twice a day for 90 days Active DULoxetine HCl 60 MG TAKE 1 CAPSULE EVER Y DAY for 90 Active Crestor 5 MG 1 tablet Orally Once a day for 30 days 09/29/2024 Active Hydrocortisone 2.5 % 1 application Externally Once a day 03/15/2025 Active buPROPion HCl ER (SR) 150 MG 1 tablet in the morning Orally Once a day for 90 days Active Blood Glucose Meter -- Use glucometer to check glucose once daily DX E11.9 for 365 days ONE TOUCH per insurance 01/18/2025 Active Pramoxine HCl 1 % 1 application to affected area as needed Externally Three times a day 03/15/2025 Active Blood Glucose Meter -- Use glucose meter daily to monitor glucose levels DX E11.9 for 365 days 06/08/2024 Active Benadryl Allergy 25 MG 1 tablet at bedti me as needed Orally Once a day for 30 days PRN Active Social History Tobacco Use: Social History Observation Description Date Details (start date - stop date) Current Smoker 11/17/1989 - NA Tobacco Use/Smoking Question Answer Notes Patient is a current smoker When did you start smoking? 11/17/1989 How often do you smoke cigarettes? every day How many cigarettes a day do you smoke? 6-10 Vital Signs Blood pressure systolic 152 mm Hg 03/15/20 25 Blood pressure diastolic 70 mm Hg 025 Height 65 in 03/15/2025 Weight 209.0 lbs 03/15/2025 BMI 34.78 kg/m2 03/15/2025 Encounters Encounter Location Date Provider Diagnosis [facility] [address] [facility] [place] [address] 03/15/2025 Royer Mclain Rectal bleeding K62. 5 Assessments Encounter Date Diagnosis (ICD Code) Assessment Notes Treatment Notes Treatment Clinical Notes Section Notes 03/15/2025 Rectal bleeding (ICD-10 - K62.5) Plan Of Treatment Medication Medication Name Sig Start Date Stop Date Notes Hydrocortisone 2.5 % 1 application Externally Once a day 0 03/15/2025 Pramoxine HCl 1 % 1 application to aff ected area as needed Externally Three times a day 03/15/2025 Progress Notes * Jessi SOSA SDOB:1954 (69 yo F)Acc No.[id number]:03/15/2025 Progress Note Patient: Jayson BRADSHAWny S Provider: Concepcion Mclain ([facility])MD :1955 A ge:69 Y S ex:Female Date:03/15/2025 Address:[address] [place] [address] , [place], [id number] Check In:10:49 AM ESTCheck O ut:11:37 AM EST Subjective: * Chief Complaints: * R ectal Bleeding- filling toilet with blood- just had colonoscopy in June- even if passes gas, has bloodDr [place] has her on steroid pack currently * HPI: G eneral: no pain with rectal bleeding - likely int hemorrhoid. * ROS: E ENT: hearing changes d enies. v isual changes d enies.?non-healing mouth sores d enies. s wollen glands or neck lumps d enies. h oarseness d enies. s ore throat d enies. d ifficulty swallowing d enies. n ose bleeds d enies. n maude congestion d enies. e ar ache d enies. e ar discharge?denies. r inging in ears d enies. l ight sensitivity d enies. e ye pain d enies. b lurring d enies. e ye irritation d enies. d ouble vision d enies.?vision loss d enies. G eneral/Constitutional: Sweats: D enies. F atigue d enies. S leep problems d enies. A norexia d enies. M alaise d enies. W eight loss d enies.?Fatigue or Weakness d enies. F ever or Chills d enies. C ardiovascular: Shortness of Breath w/lying flat d enies. L ightheadedness/dizziness d enies. C hest tightness/ heavy pressure d enies. S welling of legs, ankles, or feet d enies. W aking up with shortness of breath d enies. C hest pain denies. P alpitations d enies. W eight gain d enies. R espiratory: Chronic or frequent cough d enies. C oughing up blood?denies. D ifficulty breathing d enies. P roductive cough d enies. S noring?denies. S hortness of breath that awakens from sleep (PND) d enies. C hest pain d enies. S putum production d enies. W heezing d enies. M usculoskeletal: Joint pain d enies. J oint Fluid d enies. B ack pain d enies. K nee pain d enies. N sienna pain d enies. J oint Stiffness d enies. M uscle cramps d enies. W eakness of muscles d enies. A rthritis d enies. M uscle aches d enies. P ain in shoulder(s) d enies. S wollen joints d enies. * Active Problem List I67.89 Other cerebrovascula r disease Modified On:02/12/2024/U Status:confirmed M17.11 Unilateral primary o steoarthritis, right knee Modified On:04/09/2023U Status:confirmed R07.9 Chest pain Modified On:07/02/2023/U Status:confirmed I10 Hypertension Modified On:02/12/2024/U Status:confirmed M54.17 Lumbosacral radiculo roshan Modified On:04/09/2023 Status:confirmed I51.7 Left ventricular hyp ertrophy Modified On:04/09/2023 Status:confirmed R00.1 Bradycardia Modified On:04/09/2023 Status:confirmed G43.109 Migraine aura withou t headache Modified On:01/07/2024 Status:confirmed K64.9 Hemorrhoids Modified On:04/09/2023 Status:confirmed M75.81 Right shoulder tendi nitis Modified On:04/09/2023 Status:confirmed E66.3 Over weight Modified On:04/09/2023 Status:confirmed I50.22 Chronic systolic hea rt failure Modified On:04/09/2023 Status:confirmed G45.9 Transient cerebral i schemia Modified On:04/09/2023 Status:confirmed I51.89 Diastolic dysfunctio n Modified On:04/09/2023 Status:confirmed E11.9 Diabetes mellitus Modified On:01/23/2024 Status:confirmed U07.1 COVID-19 virus infec tion Modified On:04/09/2023 Status:confirmed 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 Modified On:04/09/2023 Status:confirmed R51.9 Headache, unspecifie d Modified On:06/24/2023 Status:confirmed 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 Modified On:04/09/2023 Status:confirmed M75.40 Shoulder impingement syndrome Modified On:04/09/2023 Status:confirmed J44.9 Chronic obstructive pulmonary disease, unspecified Modified On:02/19/2023 Status:confirmed K62.5 Rectal bleeding Modified On:12/25/2023 Status:confirmed H61.21 Ceruminosis, right Modified On:04/18/2023 Status:confirmed F41.9 Anxiety disorder, un specified Modified On:06/24/2023 Status:confirmed R29.810 Facial droop Modified On:06/28/2023 Status:confirmed I25.10 CAD (coronary artery disease) Modified On:12/25/2023 Status:confirmed 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 Modified On:07/02/2023 Status:confirmed L29.9 Pruritic condition Modified On:08/19/2023 Status:confirmed G47.00 Insomnia Modified On:11/05/2023 Status:confirmed H61.20 Cerumen impaction Modified On:11/05/2023 Status:confirmed E03.9 Hypothyroid Modified On:01/23/2024 Status:confirmed E78.5 Hyperlipidemia Modified On:01/23/2024 Status:confirmed R55 Syncope Modified On:02/12/2024 Status:confirmed M81.0 Age-related osteopor osis without current pathological fracture Modified On:03/09/2024 Status:confirmed M85.80 Osteopenia Modified On:03/10/2024 Status:confirmed * Medical History: * Surgical History: a ppendectomy tonsillectomy bladder surgery knee surgery cardiac cath Colonoscopy 06/23/24 * Hospitalization/Major Diagno stic Procedure: c hest pain 04/2023 * Family History: F ather: , diagnosed with Diabetes mellitus without mention of complication, type II or unspecified type, not stated as uncontrolled. M other: , diagnosed with Other malignant neoplasm of unspecified site. S ister(s): alive, MS,, diagnosed with Diabetes mellitus without mention of complication, type II or unspecified type, not stated as uncontrolled. D sonjahter(s): alive. 5 sister(s) . 1 daughter(s) . . * Social History: T obacco Use: T obacco Use/Smoking P atient is a c urrent smoker W hen did you start smoking? 0 11/17/1989 H ow often do you smoke cigarettes? e very day H ow many cigarettes a day do you smoke? 6 -10 * Medications: T akingBenadryl Allergy(diphenhydrAMINE HCl) 25 MG Tablet 1 tablet at bedtime as needed Orally Once a day , Notes to Pharmacist: PRNBlood Glucose Meter -- -- Use glucose meter daily to monitor glucose levels DX E11.9 Blood Glucose Meter -- -- Use glucometer to check glucose once daily DX E11.9 , Notes to Pharmacist: ONE TOUCH per insurancebuPROPion HCl ER (SR) 150 MG Tablet Extended Release 12 Hour 1 tablet in the morning Orally Once a day Carvedilol 25 MG Tablet TAKE 1 TABLET TWICE DAILY WITH FOOD Orally Twice a day Clopidogrel Bisulfate 75 MG Tablet TAKE 1 TABLET EVERY DAY Orally Once a day Crestor(Rosuvastatin Calcium) 5 MG Tablet 1 tablet Orally Once a day DULoxetine HCl 60 MG Capsule Delayed Release Particles TAKE 1 CAPSULE EVERY DAY Glimepiride 4 MG Tablet TAKE 2 TABLET Orally Once a day Hydrocortisone Mayco- Pramoxine 2.5-1 % Cream 1 application Externally Three times a day Insulin Syringes (Disposable) U-100 0.5 ML Miscellaneous as needed with insulin dosing Isosorbide Mononitrate ER 30 MG Tablet Extended Release 24 Hour 1 tablet in the morning Orally BID Lancets 33G(Lancets) - Miscellaneous Use 1 lancet to check glucose once daily DX E11.9 Metoclopramide HCl 10 MG Tablet TAKE 1 TABLET THREE TIMES DAILY BEFORE MEALS Nitroglycerin 0.4 MG Tablet Sublingual as directed Sublingual , Notes to Pharmacist: 1 (one) tablet under tongue as directed as needed 1 tablet under tongue for chest pain. May repeat every 5 minutes if still having chest pain- to max of 3 tablets per episode/ PRNNovoLIN 70/30 FlexPen(Insulin NPH Isophane & Regular) (70-30) 100 UNIT/ML Suspension Pen-injector Inject 20 units Subcutaneous is BS <150, 50 units if >150, BID Ondansetron 4 MG Tablet Disintegrating 1 tablet on the tongue and allow to dissolve Orally Q 6 hours PRN , Notes to Pharmacist: PRNPantoprazole Sodium 40 MG Tablet Delayed Release TAKE 1 TABLET EVERY DAY Simvastatin 40 MG Tablet TAKE 1 TABLET EVERY EVENING Test Strips - - Use 1 strip to check glucose once daily DX E11.9 , Notes to Pharmacist: ONE TOUCH per insurancetiZANidine HCl 4 MG Tablet TAKE 1 TABLET THREE TIMES DAILY NEEDED True Metrix Blood Glucose Test(Glucose Blood) - Strip TEST BLOOD SUGAR ONE TIME DAILY TRUEplus Lancets 33G(Lancets) - Miscellaneous TEST BLOOD SUGAR ONE TIME DAILY Medication List reviewed and reconciled with the patientTaking Benadryl Allergy(diphenhydrAMINE HCl) 25 MG Tablet 1 tablet at bedtime as needed Orally Once a day , Notes to Pharmacist: PRNTaking Blood Glucose Meter -- -- Use glucose meter daily to monitor glucose levels DX E11.9 Taking Blood Glucose Meter -- -- Use glucometer to check glucose once daily DX E11.9 , Notes to Pharmacist: ONE TOUCH per insuranceTaking buPROPion HCl ER (SR) 150 MG Tablet Extended Release 12 Hour 1 tablet in the morning Orally Once a day Taking Carvedilol 25 MG Tablet TAKE 1 TABLET TWICE DAILY WITH FOOD Orally Twice a day Taking Clopidogrel Bisulfate 75 MG Tablet TAKE 1 TABLET EVERY DAY Orally Once a day Taking Crestor(Rosuvastatin Calcium) 5 MG Tablet 1 tablet Orally Once a day Taking DULoxetine HCl 60 MG Capsule Delayed Release Particles TAKE 1 CAPSULE EVERY DAY Taking Glimepiride 4 MG Tablet TAKE 2 TABLET Orally Once a day Taking Hydrocortisone Mayco-Pramoxine 2.5-1 % Cream 1 application Externally Three times a day Taking Insulin Syringes (Disposable) U-100 0.5 ML Miscellaneous as needed with insulin dosing Taking Isosorbide Mononitrate ER 30 MG Tablet Extended Release 24 Hour 1 tablet in the morning Orally BID Taking Lancets 33G(Lancets) - Miscellaneous Use 1 lancet to check glucose once daily DX E11.9 Taking Metoclopramide HCl 10 MG Tablet TAKE 1 TABLET THREE TIMES DAILY BEFORE MEALS Taking Nitroglycerin 0.4 MG Tablet Sublingual as directed Sublingual , Notes to Pharmacist: 1 (one) tablet under tongue as directed as needed 1 tablet under tongue for chest pain. May repeat every 5 minutes if still having chest pain- to max of 3 tablets per episode/ PRNTaking NovoLIN 70/30 FlexPen(Insulin NPH Isophane & Regular) (70-30) 100 UNIT/ML Suspension Pen- injector Inject 20 units Subcutaneous is BS <150, 50 units if >150, BID Taking Ondansetron 4 MG Tablet Disintegrating 1 tablet on the tongue and allow to dissolve Orally Q 6 hours PRN , Notes to Pharmacist: PRNTaking Pantoprazole Sodium 40 MG Tablet Delayed Release TAKE 1 TABLET EVERY DAY Taking Simvastatin 40 MG Tablet TAKE 1 TABLET EVERY EVENING Taking Test Strips - - Use 1 strip to check glucose once daily DX E11.9 , Notes to Pharmacist: ONE TOUCH per insuranceTaking tiZANidine HCl 4 MG Tablet TAKE 1 TABLET THREE TIMES DAILY NEEDED Taking True Metrix Blood Glucose Test(Glucose Blood) - Strip TEST BLOOD SUGAR ONE TIME DAILY Taking TRUEplus Lancets 33G(Lancets) - Miscellaneous TEST BLOOD SUGAR ONE TIME DAILY Medication List reviewed and reconciled with the patient * Allergies: C at Dander: AllergyExcedrin Migraine: AllergyImitrex: AllergyIodine: AllergyLisinopril: AllergyStrawberries: AllergyTopamax: Allergyno[Allergies Verified] Objective: * Vitals: W t:209.0lbs, Ht: 65 in, BP:152/70mm Hg, BMI:34.78Index, Ht-cm: 165.1 cm, Wt-k.8 kg. * Examination: P hysical Exam: GENERAL: w ell developed, well nourished, in no acute distress. HEAD: n ormocephalic/atraumatic. EYES: p upils equal, round and reactive to light, conjunctivae and sclerae normal. EARS: n o deformity or lesion of external ear, canals and TM appear normal bilaterally, TM's intact, not inflamed with normal light reflex, hearing grossly normal to conversational speech. NOSE: n o deformity, discharge, inflammation, or lesions.? MOUTH: m ucous membranes moist, normal oropharynx and posterior pharynx without lesions or exudates, tongue normal, dentition normal. NECK: n sienna supple, no masses or palpable cervical nodes, trachea midline, thyroid without nodules, masses, tenderness, or enlargement. CHEST: n o chest wall deformity, no chest wall tenderness.? LUNGS: n ormal respiratory effort and clear to auscultation, no wheezes, rales, or rhonchi, good air exchange. CARDIO: r egular rate and rhythm, normal S1 and S2, nor murmur, rub, or gallop. PULSES: n ormal capillary refill. ABDOMEN: s oft, non-distended, non-tender, no masses. MUSCULOSKELETAL: n o deformity or scoliosis noted, normal range of motion, joints normal, no erythema, edema, effusion, or ecchymosis. EXTREMITY: n o clubbing, cyanosis, edema, or deformity with normal ROM in both upper and lower bilateral extremities. NEUROLOGIC: g rossly normal. SKIN: n o rashes, ulcerations, or suspicious lesions. LYMPH NODES: n o cervical adenopathy, nodes normal. MENTAL STATUS: a lert and oriented x3, normal mood and affect. Assessment: * Assessment: 1. R ectal bleeding - K62.5 (Primary) Plan: * Treatment: * Procedure Codes: * Preventive Medicine: Screenings/Counseling: B [place] ACTION PLAN Above Normal BMI Follow-up D ietary management education, guidance, and counseling * * Sign off status: Completed Visit Status: C HK (Check Out) true * Provider: Concepcion Mclain ([facility])MD Date: 0 03/15/2025 Generated for Printi ng/Faxing/eTransmitting on: 0 05/11/2025 12:33 PM EDT History and Physical Notes * HPI (History of Present Illness) Category Sub-Category Detail Notes Category Not es General no pain with rectal bleeding - likely int hemorrhoid Examination Category Sub-Category Detail Notes Category Not es Physical Exam GENERAL: well developed, well nourished, in no acute distress HEAD: normocephalic/atraum atic EYES: pupils equal, round and reactive to light, conjunctivae and sclerae normal EARS: no deformity or lesi on of external ear, canals and TM appear normal bilaterally, TM's intact, not inflamed with normal light reflex, hearing grossly normal to conversational speech NOSE: no deformity, discha rge, inflammation, or lesions MOUTH: mucous membranes petey st, normal oropharynx and posterior pharynx without lesions or exudates, tongue normal, dentition normal NECK: neck supple, no mass es or palpable cervical nodes, trachea midline, thyroid without nodules, masses, tenderness, or enlargement CHEST: no chest wall deform ity, no chest wall tenderness LUNGS: normal respiratory e ffort and clear to auscultation, no wheezes, rales, or rhonchi, good air exchange CARDIO: regular rate and rhy thm, normal S1 and S2, nor murmur, rub, or gallop PULSES: normal capillary ref ill ABDOMEN: soft, non-distended, non-tender, no masses RECTAL: MUSCULOSKELETAL: no deformity or scol iosis noted, normal range of motion, joints normal, no erythema, edema, effusion, or ecchymosis EXTREMITY: no clubbing, cyanosi s, edema, or deformity with normal ROM in both upper and lower bilateral extremities NEUROLOGIC: grossly normal SKIN: no rashes, ulceratio ns, or suspicious lesions LYMPH NODES: no cervical adenopat hy, nodes normal MENTAL STATUS: alert and oriented x 3, normal mood and affect
--- OUTSIDE RECORDS SUMMARY | 2025-03-15 09:11 | XMS_ITS ---
Author Organization [facility] in [place] Address [address] [place] [address] Care Team Providers Care Rib Bender Name Role Phone Royer Mclain Primary Care Provider REASON FOR VISIT Cream NA Medications Medication SIG (Take, Route, Frequency, Duration) Notes Start Date End Date Status Hydrocortisone Mayco-Pramoxine 1-1 % 1 application Externally Three times a day 03/15/2025 Active Encounters Encounter Location Date Provider Diagnosis [facility] [address] [place] [address] [place] [address] 03/15/2025 Royer Mclain Plan Of Treatment Medication Medication Name Sig Start Date Stop Date Notes Hydrocortisone Mayco-Pramoxine 1-1 % 1 application Externally Three times a day 03/15/2025 Progress Notes * JANAJessi SIMONS SDOB:1954 (69 yo F)Acc No.[id number]:03/15/2025 Patient: Jessi BRADSHAW :1955 A ge:69 Y S ex:Female Address:[address] [place] [address] [place] [address] * Refills Start Hydrocortisone Mayco-Pramoxine Cream, 1-1 %, Externally, 60, 1 application, Three times a day, Refills=11 * true * Date: Generated for Alivia santos/Richard/eTransmitting on: 0 05/11/2025 12:33 PM EDT
--- OUTSIDE RECORDS SUMMARY | 2025-03-17 10:12 | XMS_ITS ---
Author Organization [facility] [place] Address [address] [place] [address] Care Team Providers Care Yarn Handler Name Role Phone Royer Mclain Primary Care Provider REASON FOR VISIT hydrocortisone denied Encounters Encounter Location Date Provider Diagnosis [facility] [address] [place] [facility] [place] [address] 03/17/2025 Royer Mclain Plan Of Treatment No Information Progress Notes * Jessi SOSA SDOB:1954 (69 yo F)Acc No.[id number]:03/17/2025 Patient: Concepcion MAY Jessi Allison :1955 A ge:69 Y S ex:Female Address:[address] [place] [address] [place] [address] * true * Date: Generated for Edenilsoni ng/Fahenryg/eTransmitting on: 0 05/11/2025 12:33 PM EDT
--- OUTSIDE RECORDS SUMMARY | 2025-05-11 12:33 | XMS_ITS | Patient Health Record ---
Author Organization [facility] in [place] Address [address] [place] [address] Care Team Providers Care Online Trader Name Role Phone Royer Ponce Primary Care Provider [phone] Allergies Allergen (clinical drug ingredient) Drug/Non Drug [...] PM Interpretation: Performing Lab: Notes/Report: Source Facility: [place] [address] Mammography Report Signed Patient: JESSI SOSA MR#: [id number] : 1955 Acct:[id number] Age/Sex: 68 / F ADM Date: 08/31/24 Loc: MAMMO Attending Dr: Robin Ponce M.D. Ordering Physician: Robin Ponce M.D. Results: Date of Service: 08/31/24 Follow Up: Procedure(s): MM tomosynthesis screening BI Accession Number(s): [id number] cc: Robin Ponce M.D. Patient Name: JESSI SOSA MR#: [id number] : 1955 Exam Date: 08/31/2024 Ordering Doctor: [...] breast cancer at age 77. LOCATION: [facility] BREAST COMPOSITION: The breasts are heterogeneously dense,which [...] Signed By: 08/31/24 1349 DD/ 48 TD/TT: Camera Control Operator: [place] [address] Mammography Report Signed Patient: JESSI SOSA MR#: [id number] : 1955 Acct:[id number] Age/Sex: 68 / F ADM Date: 08/31/24 Loc: MAMMO Attending Dr: Tiffani Ponce M.D. Ordering Physician: Robin Ponce M.D. Results: Date of Service: 08/31/24 Follow Up: Procedure(s): MM tomosynthesis screening BI Accession Number(s): [id number] cc: Robin Ponce M.D. Patient Name: JESSI SOSA MR#: [id number] : 1955 Exam Date: 08/31/2024 Ordering Doctor: [...] breast cancer at age 77. LOCATION: The [facility] BREAST COMPOSITION: The breasts are heterogeneously dense,which [...] Dictated By: Doroteo Robin M.D. Signed By: 08/31/249 DD/ 48 TD/TT: Camera Control Operator: CBC AUTO DIFF Reviewed date:02/05/2025 11:33:58 AM Interpretation: Performing Lab: Notes/Report: [facility] , White Blood Count 8.7 4.0-11.0 10 [...] 3/uL Performing Lab: see note ML - [facility] LB IRON Reviewed date:02/05/2025 11:33:58 AM Interpretation: Performing Lab: Notes/Report: [facility] , Iron 71.0 50.0-170.0 ug/dL Performing Lab: see note ML - [facility] LB TSH Reviewed date:02/05/2025 11:33:58 AM Interpretation: Performing Lab: Notes/Report: [facility] , Thyroid Stimulating Hormone 1.774 0.358-3.740 uIU/mL Performing Lab: see note ML - [facility] LB Occult Blood* Reviewed date:02/09/2025 06:39:30 PM Interpretation: Performing Lab: Notes/Report: [facility] , Occult Blood Positive Performing Lab: see note ML - [facility] LB T4 Reviewed date:02/05/2025 11:33:58 AM Interpretation: Performing Lab: Notes/Report: [facility] , T4 Thyroxine 7.90 4.80-13.90 ug/dL Performing Lab: see note - [facility] LB PROF 14(COMP METB) Reviewed date:02/05/2025 11:33:58 AM Interpretation: Performing Lab: Notes/Report: [facility] , Sodium 137 136-145 mmol/L Potassium 4.4 [...] 1.1 Performing Lab: see note ML - [facility] LIPID PROFILE Reviewed date:02/05/2025 11:33:58 AM Interpretation: Performing Lab: Notes/Report: [facility] , Triglycerides 124 <=150 mg/dL Cholesterol 109 [...] RISK Performing Lab: see note ML - [facility] GLYCOHEMOGLOBIN A1C Reviewed date:02/05/2025 11:33:58 AM Interpretation: Performing Lab: Notes/Report: [facility] , Glycohemoglobin A1C 9.0 4.5-6.2 % ADA RECOMMENDED LIMIT 4.0 - 6.0 ADA THERAPEUTIC TARGET < 7.0 ACTION SUGGESTED > 7.0 Estimated Average Glucose 212 Performing Lab: see note ML - [facility] FREE T3 Reviewed date:02/05/2025 11:33:58 AM Interpretation: Performing Lab: Notes/Report: [facility] Free T3 2.66 2.18-3.98 pg/mL Performing Lab: see note ML - [facility] LB CT angio chest Reviewed date:03/05/2025 11:40:55 AM Interpretation: Performing Lab: Notes/Report: Source Facility: [facility] [place] [address] [place] [address] CT Scan Report Signed Patient: JESSI SOSA MR#: [id number] : 1955 Acct:[id number] Age/Sex: 69 / F ADM Date: 03/04/25 Loc: CT Attending Dr: Rebeka Beebe M.D. Ordering Physician: Rebeka Beebe M.D. Date of Service: 03/04/25 Procedure(s): CT angio chest Accession Number(s): [id number] cc: Robin Ponce M.D. [place] [address] Patient Name: JESSI SOSA MRN: [id number] date: 1955 Sex: F Assigned Patient Location: CT Current Patient Location: CT Accession/Order Number: [id number] Exam Date: 03/04/2025 09:20 Report Date: 03/04/2025 [...] Dona Bernal M.D.03/04/2025 9:32 AM Dictation Location: [place] [address] Electronically authenticated by: [id number] Y Date: 03/04/2025 09:32 Dictated By: Dona Bernal M.D. Signed By: 03/04/2534 DD/ 1 TD/TT: Camera Control Operator: [place] [address] CT Scan Report Signed Patient: JESSI SOSA MR#: [id number] : 1955 Acct:[id number] Age/Sex: 69 / F ADM Date: 03/04/25 Loc: CT Attending Dr: Rebeka Beebe M.D. Ordering Physician: Rebeka Beebe M.D. Date of Service: 03/04/25 Procedure(s): CT ang io chest Accession Number(s): [id number] cc: Robin Ponce M.D. [place] [address] Patient Name: JESSI SOSA MRN: [id number] date: 1955 Sex: F Assigned Patient Location: CT Current Patient Location: CT Accession/Order Numb er: [id number] Exam Date: 03/04/2025 09:20 Report Date: 03/04/2025 [...] Dona Bernal M.D.03/04/2025 9:32 AM Dictation Location: [place] [address] Electronically authenticated by: [id number] Y Date: 03/04/2025 09:32 Dictated By: Dona Bernal M.D. Signed By: 03/04/25 0934 DD/ 0932 TD/TT: Camera Control Operator: CT lung screening low-dose Reviewed date:02/14/2025 09:09:15 PM Interpretation: Performing Lab: Notes/Report: Source Facility: [place] [address] [place] [address] CT Scan Report Signed Patient: JESSI SOSA MR#: [id number] : 1955 Acct:[id number] Age/Sex: 69 / F ADM Date: 02/14/25 Loc: CT Attending Dr: Robin Ponce M.D. Ordering Physician: Robin Ponce M.D. Date of Service: 02/14/25 Procedure(s): CT lung screening low-dose Accession Number(s): [id number] cc: Robin Ponce M.D. The [address] [address] Patient Name: JESSI SOSA MRN: [id number] date: 1955 Sex: F Assigned Patient Location: CT Current Patient Location: CT Accession/Order Number: [id number] Exam Date: 02/14/2025 14:40 Report Date: 02/14/2025 [...] Yusef Ley M.D.02/14/2025 2:44 PM Dictation Location: [place] [address] Electronically authenticated by: [id number] Y Date: 02/14/2025 14:44 Dictated By: Yusef Ley D.O. Signed By: 02/14/251446 DD/ 43 TD/TT: Camera Control Operator: The [address] [address] [address] Scan Report Signed Patient: JESSI SOSA MR#: [id number] : 1955 Acct:[id number] Age/Sex: 69 / F ADM Date: 02/14/25 Loc: CT Attending Dr: Tiffani Ponce M.D. Ordering Physician: Robin Ponce M.D. Date of Service: 02/14/25 Procedure(s): CT tu g screening low-dose Accession Number(s): [id number] cc: Robin Ponce M.D. [place] [id number] Patient Name: JESSI SOSA MRN: [id number] date: 1955 Sex: F Assigned Patient Location: CT Current Patient Location: CT Accession/Order Numb er: [id number] Exam Date: 02/14/2025 14:40 Report Date: 02/14/2025 [...] Yusef Ley M.D.02/14/2025 2:44 PM Dictation Location: [place] [address] Electronically authenticated by: [id number] Y Date: 02/14/2025 14:44 Dictated By: Yusef Ley D.O. Signed By: 02/14/25 1447 DD/ 43 TD/TT: Camera Control Operator: Reason For Referral No Information Medications Medication [...] Risk Notes Problem Chronic obstructive pulmonary disease (35142941) Chronic obstructive pulmonary disease, unspecified (J44.9) Active confirmed Problem 12335165 Age-related osteoporosis without current pathological fracture (M81.0) Active confirmed Problem 33457702 Anxiety disorder , unspecified (F41.9) Active confirmed Problem Cerebrovascular disease (22047723) Other cerebrovascular disease (I67.89) Active confirmed Problem Primary osteoarthritis (909089100) Unilateral primary osteoarthritis, right knee (M17.11) Active confirmed Problem Chest pain (17796873) Chest pain (R07.9) Active confirmed Problem Hyperlipidemia (00050531) Hyperlipidemia (E78.5) Active confirmed Problem Hypertension (93243767) Hypertension (I10) Active confirmed Problem Lumbosacral radiculopathy (1043840) Lumbosacral radiculopathy (M54.17) Active confirmed Problem Hypothyroid (75070394) Hypothyroid (E03.9) Active confirmed Problem Left ventricular hypertrophy (77230874) Left ventricular hypertrophy (I51.7) Active confirmed Problem First degree atrioventricular block (801765419) First degree AV block (I44.0) Active confirmed Problem Bradycardia (26031681) Bradycardia (R00.1) Active confirmed Problem Osteopenia (256961519) Osteopenia (M85.80) Active confirmed Problem Insomnia (975996505) Insomnia (G47.00) Active confirmed Problem Syncope (887666283) Syncope (R55) Active confir med Problem Coronary artery disease (82038911) CAD (coronary artery disease) (I25.10) Active confirmed Problem Impacted cerumen (02593068) Cerumen impaction (H61.20) Active confirmed Problem Facial palsy (242694753) Facial droop (R29.810) Active confirmed Problem Rectal bleeding (85320129) Rectal bleeding (K62.5) Active confirmed Problem Migraine aura without headache (581442216) Migraine aura without headache (G43.109) Active confirmed Problem Hemorrhoids (92152437) Hemorrhoids (K64.9) Active confirmed Problem Tendonitis of right shoulder (2067374908414007) Right shoulder tendinitis (M75.81) Active confirmed Problem Overweight (781868730) Over weight (E66.3) Active confirmed Problem Chronic systolic heart failure (987039392) Chronic systolic heart failure (I50.22) Active confirmed Problem Transient cerebral ischemia (889193531) Transient cerebral ischemia (G45.9) Active confirmed Problem Pruritic disorders (834490597) Pruritic condition (L29.9) Active confirmed Problem Shoulder impingement syndrome (659564843) Shoulder impingement syndrome (M75.40) Active confirmed Problem Impacted cerumen (80191560) Ceruminosis, right (H61.21) Active confirmed Problem Diastolic dysfunction (0477004) Diastolic dysfunction (I51.89) Active confirmed Problem Diabetes mellitus (58688256) Diabetes mellitus (E11.9) Active confirmed Problem Disease caused by Severe acute respiratory syndrome coronavirus 2 (disorder) (395279188) COVID-19 virus infection (U07.1) Active confirmed Problem 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 Problem Headache (15785809) Headache, unspecified (R51.9) Active confirmed Problem Dissection of ascending aorta (670834406) Dissection of ascending aorta (I71.010) Active confirmed Vital Signs Blood pressure diastolic 70 mm Hg 03/15/2025 Height 65 in 03/15/2025 Blood pressure systolic 152 mm Hg 03/15/2025 Weight 209.0 lbs 03/15/2025 BMI 34.78 kg/m2 03/15/2025 Encounters Encounter Location Date Provider Diagnosis [facility] [address] [place] [address] 02/14/2025 [facility] [address] [place] [address] 02/25/2025 [facility] [address] [place] [address] 03/15/2025 [facility] [address] [place] [address] 03/17/2025 [facility] [address] [place] [address] 01/05/2025 [facility] [address] [place] [address] 01/07/2025 [facility] [address] [place] [address] 01/18/2025 [facility] [address] [place] [address] 02/05/2025 [facility] [address] [place] [address] 02/09/2025 [facility] [address] [place] [address] 02/09/2025 [facility] [address] [place] [address] 08/17/2024 [facility] [address] [place] [address] 08/31/2024 Royer Ponce [facility] [address] [facility] [place] [address] 09/28/2024 Royer Ponce [facility] [address] [facility] [place] [address] 12/20/2024 Royer Ponce Diabetes mellitus E1 1.9 ; Other cerebrovascular disease I67.89 ; Chest pain R07.9 and Hypertension I10 [facility] [address] [facility] [place] [address] 12/20/2024 Royer Ponce [facility] [address] [facility] [place] [address] 12/28/2024 Royer Ponce Other cerebrovascula r disease I67.89 [facility] [address] [facility] [place] [address] 06/08/2024 Royer Ponce [facility] [address] [place] [facility] [place] [address] 07/08/2024 Royer Ponce [facility] [address] [facility] [place] [address] 07/23/2024 Royer Ponce [facility] [address] [facility] [place] [address] 07/26/2024 Royer karissa [facility] [address] [facility] [place] [address] 02/04/2025 Royer Ponce Diabetes mellitus E1 1.9 ; Chronic obstructive pulmonary disease, unspecified J44.9 ; Hypertension I10 ; Left ventricular hypertrophy I51.7 ; Over weight E66.3 and COVID-19 virus infection U07.1 [facility] [address] [facility] [place] [address] 11/12/2024 Royer Ponce Chronic obstructive pulmonary disease, unspecified J44.9 and Migraine aura without headache G43.109 [facility] [address] [facility] [place] [address] 03/15/2025 Royer Ponce Rectal bleeding K62. 5 Assessments Encounter Date Diagnosis (ICD Code) Assessment Notes Treatment Notes Treatment Clinical Notes Section Notes 11/12/2024 Chronic obstructive pulmonary disease, unspecified (ICD-10 - J44.9) 11/12/2024 Migraine aura without headache (ICD-10 - G43.109) 02/04/2025 Diabetes mellitus (ICD-10 - E11.9) 02/04/2025 Chronic obstructive pulmonary disease, unspecified (ICD-10 - J44.9) 03/15/2025 Rectal bleeding (ICD-10 - K62.5) 12/20/2024 [...] PRIMARY MEDICARE [address] [place] [phone] [id number] Silvia rJessi Self - patient is the [...] I10 Hemorrhoids K64.9 Surgical History Surgery Date(Month/Year) knee surgery bladder surgery tonsillectomy Colonoscopy 06/23/24 cardiac cath appendectomy Hospitalization History Reason Date(Month/Year) chest pain 04/2023
--- OUTSIDE RECORDS SUMMARY | 2025-05-11 12:34 | XMS_ITS | Referral Summary ---
Author Organization [facility] Address [address] [place] [address] Care Team Providers Care Skiver Hand Name Role Phone Danilo Mclain MD Primary Care Provider [phone] Encounters Date Type Department Care Team Description 03/30/2025 Refill [place] [address] [place] [address] Taya Castillo MA Acute combined systolic and diastolic heart failure (CMS/HCC); Congestive heart failure, unspecified HF chronicity, unspecified heart failure type (CMS/HCC) 03/30/2025 Orders Only [place] [address] [place] [address] Taya Castillo MA 03/30/2025 11:30 AM EDT Office Visit [address] [address] Rebeka Pardo MD Primary hypertension (Primary Dx); 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; Dysphagia, unspecified type; Benign essential hypertension; History of repair of thoracic aortic aneurysm 03/03/2025 Orders Only [place] [address] [place] [address] Alexandria Salomon MA Preprocedural examination from Last 3 Months Allergies Active Allergy Reactions Criticality Noted Date Comments Aspirin GI intolerance Medium 10/22/2016 Atorvastatin Other Medium 11/04/2014 States pain in groin Blue Dye Other 11/04/2014 Cat/Feline Products Hives Medium 10/22/2016 Iodinated Contrast Media Swelling High 10/22/2016 Iodine Other 11/04/2014 Lisinopril Other 11/04/2014 [place] Hives Medium 10/22/2016 Topiramate Hives,Other Medium 11/04/2014 [...] mg SL tabletIndication s: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
--- OUTSIDE RECORDS SUMMARY | 2025-05-11 12:34 | XMS_ITS | Clinical Summary ---
Author Organization [facility] Address [address] [place], [place] [address] Care Team Providers Care Travel Physical Therapist Name Role Phone Kenisha Alvarez MD Primary Care Provider [phone] Social History Tobacco Use Types Packs/Day Years Used Date Smoking Tobacco: Never Assessed Comments Unknown Sex and Gender Information Value Date Recorded Sex Assigned at Not on file Legal Sex Female 3:09 PM EST Gender Identity Not on file Sexual Orientation Not on file Plan of Treatment Not on file Insurance [facility] MEDICARE Care Teams Travel Physical Therapist Relationship Specialty Start Date End Date Kenisha Alvarez MD PCP - General Family Medicine 09/29/13
--- OUTSIDE RECORDS SUMMARY | 2025-05-11 12:34 | XMS_ITS | Clinical Summary ---
Author Organization [employer] tem Address [id number] [address] [place] [address] Care Team Providers Care Rumper Name Role Phone Danilo Mclain MD Primary Care Provider [phone] Allergies Active Allergy Reactions Criticality Noted Date Comments Aspirin GI Disturbance Medium 10/22/2016 Atorvastatin muscle cramps,Other (See Comments) Medium 11/04/2014 States pain in groin Blue Dye Other (See Comments) 11/04/2014 Cat/Feline Products Hives Medium 10/22/2016 Iodinated Contrast Media Swelling High 10/22/2016 Iodine And Iodide Containing Products Swelling 11/04/2014 Lisinopril (Bulk) Anaphylaxis,Angioede m a High 10/22/2016 Begins with lip tongue swelling and sob [place] Hives Medium 10/22/2016 Topiramate Hives,Other (See Comments) [...] 7:45 AM 08/16/2019 8:20 PM Care Teams Rumper Relationship Specialty Start Date End Date Danilo Mclain MD PCP - General 10/28/16
--- OUTSIDE RECORDS SUMMARY | 2025-05-11 12:34 | XMS_ITS | Clinical Summary ---
Author Organization [facility] Address [address] [place] [address] Care Team Providers Care Radio Repairer Domestic Name Role Phone Danilo Mclain MD Primary Care Provider [phone] Allergies Active Allergy Reactions Criticality Noted Date Comments Aspirin GI intolerance Medium 10/22/2016 Atorvastatin Other Medium 11/04/2014 States pain in groin Blue Dye Other 11/04/2014 Cat/Feline Products Hives Medium 10/22/2016 Iodinated Contrast Media Swelling High 10/22/2016 Iodine Other 11/04/2014 Lisinopril Other 11/04/2014 [place] Hives Medium 10/22/2016 Topiramate Hives,Other Medium 11/04/2014 [...] mg SL tabletIndication s:Coronary artery disease involving red devil coronary artery of red devil heart without angina pectoris nitroglycerin 0.4 mg sublingual tablet 30 tablet 04/25/20 23 Active hydrOXYzine pamoate (Vistaril) 25 mg capsule Take 25 mg by mouth at bedtime. 07/01/20 23 Active NovoLIN 70-30 FlexPen U-100 100 unit/mL (70-30) injection 06/26/20 23 Active isosorbide mononitrate ER (Imdur) 60 mg 24 hr tabletIndication s:Atherosclerosi s of red devil coronary artery of red devil heart without angina pectoris Take 1 tablet [...] pt to see a migraine specialist in [place] or [place] NEGRITA (generalized anxiety disorder) 08/14/2019 Severe episode [...] Description 03/30/2025 11:30 AM EDT Office Visit [address] [address] Rebeka Pardo MD Primary hypertension (Primary Dx); Coronary artery disease involving red devil coronary artery of red devil heart without angina pectoris; Dysphagia, unspecified type; Benign essential hypertension; History of repair of thoracic aortic aneurysm 03/30/[address] [address] Taya Castillo MA Acute combined systolic and diastolic heart failure (CMS/HCC); Congestive heart failure, unspecified HF chronicity, unspecified heart failure type (CMS/HCC) 03/30/2025 Orders Only [address] [address] Taya Castillo MA 03/03/2025 Orders Only [facility] at [facility] [address] [place] [address] Alexandria Salomon MA Preprocedural examination from Last [...] this topic Insurance x0 (Home) [address] [address] [employer] MED[employer] Care Teams Radio Repairer Domestic Relationship Specialty Start Date End Date Danilo Mclain MD [address] [facility] [place] [id number] PCP - General 07/08/22
--- OUTSIDE RECORDS SUMMARY | 2025-05-11 12:34 | XMS_ITS | Patient Health Record ---
Author Organization [facility] Address [address] [place] [address] Care Team Providers Care Bonsai Culturist Name Role Phone Bart Lopez Unavailable [phone] AyoSandi robb Unavailable Allergies Allergen (clinical drug ingredient) Drug/Non Drug Allergy documented on EMR Reaction Allergy Type Onset Date Status IV DYE (uncoded) Unknown Allergy Act frandy [place] STRAWBERRY (uncoded) Unknown Allergy Active atorvastatin Lipitor Unknown Drug Allergy Acti ve lisinopril lisinopril Unknown Drug Allergy Activ e Reason For Referral Reason APPROVED ........PLE ASE OBTAIN AUTHORIZATION FOR MRI LUMBAR Diagnosis 1 Lumbar radiculopathy (M54.16) Referral Organization [facility] Referring Provider First Name Bart Referring Provider Last Name Jessica Referring Provider Speciality Orthopedic Surgery Referred Organization [facility] Referred Address [place], [place], Procedure 1 MRI Lumbar Spine w/o Dye (52790) General Notes Sonal Musa 025 01:50:36 PM >NO DICTATIONDimple Amy 03/29/2025 08:49:46 AM >APPROVED PER [facility] AUTH #[id number] VALID 03/29/2025-04/28/2025 COPY IN CHART MA NOTIFIED [...] Problem Status W/U Status Risk Notes Problem [id number] Lumbar radiculopathy (M54.16) Active confirmed Problem [id number] Primary osteoarthritis of left hip (M16.12) Active confirmed Vital Signs Height 5'5 in 03/28/2025 Weight 212 lbs 03/28/2025 BMI 35.27 03/28/2025 Encounters Encounter Location Date Provider Diagnosis [facility] [address] [facility] [place] [address] 03[place] osteoarthritis of left hip M16.12 [facility] [address] [facility] [place] [address] 03/28/2025 Bart Urbinaland Lumbar radiculopathy M54.16 Assessments Encounter Date Diagnosis (ICD Code) Assessment Notes Treatment Notes Treatment Clinical Notes Section Notes 03/14/2025 Primary osteoarthritis of left hip (ICD-10 - M16.12) 03/28/2025 Lumbar radiculopathy (ICD-10 - M54.16) 03/14/2025 Other Patient does carty ve hip [...] weeks to see how she is doing. 03/28/2025 Other For her lumbar degenerative disc disease at L5-S1 with radiculopathy I recommended physical therapy and MRI scan to evaluate for potential disc herniation in need for epidural injection. She will follow-up once the MRI is complete. Import medication Plan Of Treatment Pending Test Test Name Order Date MRI : Lumbosacral Spine W/O Contrast - 7 214703/28/2025 [facility]- LUMBAR 4 VIEW [id number] 03/28/2025 [facility]- PT/OT EVAL AND TREAT 3X/WEEK FOR 6 WEEKS 03/28/2025 Next Appt Details Provider Name:Bart Spencer and, 05/16/2025 01:15:00 PM, [address], [address], [place], [address], Insurance Providers Payer Name Payer Address Payer Phone Subscriber Number Group Number Insured Name Patient Relationship to Insured Coverage Start Date Coverage End Date Medicare [employer] by Debby NEAL [address] [place] [address] [id number] MARTHA ALBRIGHT Self - patient is the insured 5 Medical (General) History Medical History History ICD Code Asthma/COPD Cancer Heart problems: Type II diabetes Stroke High Blood Pressure Kidney trouble Drug Allergies Surgical History Surgery Date(Month/Year) Heart surgery 2010
--- OUTSIDE RECORDS SUMMARY | 2025-05-11 12:34 | XMS_ITS | Clinical Summary ---
Author Organization [facility] Address [address] [place] [address] Care Team Providers Care Decorative Engraver Apprentice Name Role Phone Danilo Mclain MD Primary Care Provider [phone] Medications clonazePAM (KLONOPIN) 0.5 MG tablet Take [...] 3:54 AM 08/31/2020 3:54 AM Care Teams Decorative Engraver Apprentice Relationship Specialty Start Date End Date Danilo Mclain MD [address] [place] [address] PCP - General Family Medicine 08/31/20
--- OUTSIDE RECORDS SUMMARY | 2025-05-11 12:34 | XMS_ITS | Clinical Summary ---
Author Organization [facility] Address [address] [facility] [place] [address] Care Team Providers Care Treasury Associate Name Role Phone Unavailable Primary Care Provider [...]
--- NOTE | 2025-05-11 12:35 | MR_ITS ---
[facility] [place] [id number] Patient Name: MARTHA AVILA MRN: [id number] date: 1955 Sex: F Assigned Patient Location: MRI Current Patient Location: MRI Accession/Order Number: [id number] Exam Date: 05/11/2025 14:51 Report Date: 05/11/2025 14:54 At the request of: MERCEDES MENARD MD Procedure: MR lumbar spine wo con MR lumbar spine wo con 05/11/2025 1:46 PM SIGNS AND SYMPTOMS: Left hip pain for 2 weeks PROTOCOL: Multiplanar multisequence MR images of the lumbar spine without IV contrast COMPARISON: None. FINDINGS: The bones of the lumbar spine are in anatomic alignment. There is preservation of vertebral body heights and intervertebral disc spaces. The marrow signal is within normal limits. The conus terminates at the mid L1 vertebral body level. No epidural or paraspinous fluid collection is appreciated. At T12-L1: There is a normal disc, central canal, and neural foramen. At L1-L2: There is a normal disc, central canal, and neural foramen. At L2-L3: There is a normal disc, central canal, and neural foramen. At L3-L4: There is a normal disc, central canal, and neural foramen. At L4-L5: There is a broad-based disc bulge with facet hypertrophy and ligamentum flavum thickening. There is mild spinal canal stenosis with moderate bilateral neural foraminal narrowing. At L5-S1: There is a normal disc, central canal, and neural foramen. MR/MR lumbar spine wo con IMPRESSION: At L4-L5: There is a broad-based disc bulge with facet hypertrophy and ligamentum flavum thickening. There is mild spinal canal stenosis with moderate bilateral neural foraminal narrowing. Impression dictated by: dAria Rojo M.D. 05/11/2025 2:54 PM Dictation Location: [facility] Electronically authenticated by: [id number] Y Date: 05/11/2025 14:54
== END 2025-05-11 12:32 | disposition home or self-care (01) ==
LOC: MRI 12:31
PROVIDERS: PCP Family Medicine; Visit Provider Orthopaedic Surgery
DX: M54.16 Radiculopathy, lumbar region (principal); M51.369 Other intervertebral disc degeneration, lumbar region without mention of lumbar back pain or lower extremity pain
CPT/HCPCS: 72148

== ENCOUNTER 2025-09-01 09:46 | Outpatient (OUT) | payer OTHER, SELFPAY ==
--- NOTE | 2025-09-01 09:49 | MM_ITS ---
Patient Name: MARTHA AVILA MR#: [id number] : 1955 Exam Date: 09/01/2025 Ordering Doctor: DR ROBIN PONCE . RADIOLOGY REPORT PROCEDURE: MM TOMOSYNTHESIS SCREENING BI COMPARISON: MM TOMOSYNTHESIS SCREENING BI, 08/31/2024. MM TOMOSYNTHESIS SCREENING BI, 08/27/2023. MG MAMM SCREEN 3D FELY CAD, 01/04/2022. MG MAMM FELY SCRN W CAD DIG, 08/03/2015. INDICATIONS: Screening Calculator Name NCI Breast Cancer Risk Assessment Tool 5 Year Breast Cancer Risk 1.50% Lifetime Breast Cancer Risk 5.20% Personal Breast Cancer No Personal Ovarian Cancer No Treatments excision of cancerous lesion from bladder wall Family Cancers Grandmother-paternal with breast cancer at age ~75. LOCATION: [facility] BREAST COMPOSITION: The breasts are heterogeneously dense, which may obscure small masses. FINDINGS: DIAGNOSTIC CATEGORY 1--NEGATIVE. RIGHT BREAST: No significant suspicious finding. LEFT BREAST: No significant suspicious finding. RECOMMENDATIONS: ROUTINE MAMMOGRAM AND CLINICAL EVALUATION IN 12 MONTHS. Dictated by: Savage Marcano MD on 09/01/2025 at 11:12 Approved by: Savage Marcano MD on 09/01/2025 at 11:32
--- OUTSIDE RECORDS SUMMARY | 2025-09-01 09:49 | XMS_ITS | Clinical Summary ---
Author Organization [facility] Address [address] [place] [address] Care Team Providers Care Biodiesel Production Technician Name Role Phone Unavailable Primary Care Provider [...] 02/13/2022 12:00 PM EDT Plan of Treatment Not on file
--- OUTSIDE RECORDS SUMMARY | 2025-09-01 09:49 | XMS_ITS | Clinical Summary ---
Author Organization [facility] Address [address] [place], [place] [address] Care Team Providers Care Painter And Body Mechanic Apprentice Name Role Phone Kenisha Alvarez MD Primary Care Provider [phone] Social History Tobacco Use Types Packs/Day Years Used Date Smoking Tobacco: Never Assessed Comments Unknown Sex and Gender Information Value Date Recorded Sex Assigned at Not on file Legal Sex Female 3:09 PM EST Gender Identity Not on file Sexual Orientation Not on file Plan of Treatment Not on file Insurance [facility] MEDICARE Care Teams Painter And Body Mechanic Apprentice Relationship Specialty Start Date End Date Kenisha Alvarez MD PCP - General Family Medicine 09/29/13
--- OUTSIDE RECORDS SUMMARY | 2025-09-01 09:49 | XMS_ITS | Clinical Summary ---
Author Organization [facility] Address [address], [address] [place] [address] Care Team Providers Care Head Of Sales Name Role Phone Danilo Mclain MD Primary Care Provider [phone] Medications clonazePAM (KLONOPIN) 0.5 MG tablet Take [...] Treatment Not on file Insurance [employer] MEDICARE [employer] MEDICARE Advance Directives * Full Code (Latest Code Status on File) Date Activated Date Inactivated Comments 08/31/2020 3:54 AM 09/01/2020 8:57 PM * Full Code Date Activated Date Inactivated Comments 08/31/2020 3:54 AM 08/31/2020 3:54 AM Care Teams Head Of Sales Relationship Specialty Start Date End Date Danilo Mclain MD [address] [place] [address] PCP - General Family Medicine 08/31/20
--- OUTSIDE RECORDS SUMMARY | 2025-09-01 09:49 | XMS_ITS | Clinical Summary ---
Author Organization [employer] [facility] Address [id number] [address] [place] [address] Care Team Providers Care Design Drafter Chief Name Role Phone Danilo Mclain MD Primary Care Provider [phone] Allergies Active Allergy Reactions Criticality Noted Date Comments Aspirin GI Disturbance Medium 10/22/2016 Atorvastatin muscle cramps,Other (See Comments) Medium 11/04/2014 States pain in groin Blue Dye Other (See Comments) 11/04/2014 Cat/Feline Products Hives Medium 10/22/2016 Iodinated Contrast Media Swelling High 10/22/2016 Iodine And Iodide Containing Products Swelling 11/04/2014 Lisinopril (Bulk) Anaphylaxis,Angioede m a High 10/22/2016 Begins with lip tongue swelling and sob [place] Hives Medium 10/22/2016 Topiramate Hives,Other (See Comments) [...] 7:45 AM 08/16/2019 8:20 PM Care Teams Design Drafter Chief Relationship Specialty Start Date End Date Danilo Mclain MD PCP - General 10/28/16
--- OUTSIDE RECORDS SUMMARY | 2025-09-01 09:49 | XMS_ITS | Clinical Summary ---
Author Organization [facility] Address [address] [place] [address] Care Team Providers Care Automobile Body Repairer Name Role Phone Danilo Mclain MD Primary Care Provider [phone] Allergies Active Allergy Reactions Criticality Noted Date Comments Aspirin GI intolerance Medium 10/22/2016 Atorvastatin Other Medium 11/04/2014 States pain in groin Blue Dye Other 11/04/2014 Cat/Feline Products Hives Medium 10/22/2016 Iodinated Contrast Media Swelling High 10/22/2016 Iodine Other 11/04/2014 Lisinopril Other 11/04/2014 [place] Hives Medium 10/22/2016 Topiramate Hives,Other Medium 11/04/2014 [...] mg SL tabletIndication s:Coronary artery disease involving sioux coronary artery of sioux heart without angina pectoris nitroglycerin 0.4 mg sublingual tablet 30 tablet 04/25/20 23 Active hydrOXYzine pamoate (Vistaril) 25 mg capsule Take 25 mg by mouth at bedtime. 07/01/20 23 Active NovoLIN 70-30 FlexPen U-100 100 unit/mL (70-30) injection 06/26/20 23 Active isosorbide mononitrate ER (Imdur) 60 mg 24 hr tabletIndication s:Atherosclerosi s of sioux coronary artery of sioux heart without angina pectoris Take 1 tablet [...] pt to see a migraine specialist in [place] or [facility] [place] (generalized anxiety disorder) 08/14/2019 Severe episode [...] Assessment & Plan (07/08/2023 3:24 PM EDT): [facility] II- currently LVEF normal 60%- recovered Mild [...] Risk Screening 2022 COVID-19 Vaccine ( season) 2025 12/30/2023, 04/19/2021, 04/19/2021, Additional history exists Influenza Vaccine (#1) 2025 , 12/30/2023, 09/13/2021, Additional history exists Pneumococcal Vaccine: 50+ [...] patient's age to complete this topic Insurance * Guarantor: Jessi Sosa Account Type Relation to Patient Date of Phone Billing Address Personal/Family Self 1955 x0 (Home) [address] [address] [place] [address] [employer] MEDICARE Care Teams Automobile Body Repairer Relationship Specialty Start Date End Date Danilo Mclain MD [address] [facility] [address] [address] PCP - General 07/08/22
--- OUTSIDE RECORDS SUMMARY | 2025-09-01 09:51 | XMS_ITS | CCD ---
Author Organization [facility] Care Team Providers Care Spin Tank Tender Name Role Phone Robin Ponce Primary Care Provider HERMELINDO ADKINS Consulting Unavailable ROBIN PONCE Primary Care Unavailable HERMELINDO ADKINS Attending Unavailable HERMELINDO ADKINS Admitting Unavailable LONDON VALLEJO Consulting Unavailable ELTAHAWY, EHAB A Attending Unavailable CONCEPCIÓN, EHAB A Admitting Unavailable ROBIN PONCE Referring Unavailable ROBIN PONCE Primary Care Unavailable MD Darby Hernandez Primary Care Provider [phone] MD Ese Tan Attending Provider SHAIKH HERNANDEZ Primary Care Physician DR DANK JOHNSON Admitting UnavailEl Bingham, DR KELLY Primary Care Unavailable DR DANK JOHNSON Attending Unavailabl e GRECHNY .REYNA Consulting Unavailabl e CARMELAOYELE, LISSETT Consulting Unavailable DR ROBIN SEGOVIA Primary Care Unavailable JEFFRY WILLIAMSON Admitting Unavailable SHELLEY II, TIMOTEO Consulting Unavailable TAMDONN ., JEFFRY Attending Unavailable TAMLYN ., JEFFRY Consulting Unavailable FILUTZE, LAURIE Consulting Unavailable FAWWAD, TRENT H Admitting Unavailable FAWWAD, TRENT H Attending Unavailable FAWMARIO, TRENT H Primary Care Unavailable DR ROBIN SEGOVIA Admitting Unavailable KRIS Bingham, DR KELLY Attending Unavailable HOY ., DR KELLY Consulting Unavailable FAWWAConcepcion, TRENT H Primary Care Unavailable MISC, DR SONI Admitting Unavailable MISC, DR SONI Attending Unavailable MISC, DR SONI Consulting Unavailable DR ROBIN SEGOVIA Primary Care Unavailable KATELYN, DR MERCEDES Bates Consulting Unavailable MISC, DR SONI Attending Unavailable MISC, DR SONI Consulting Unavailable MISC, DR SONI Admitting Unavailable MARY, TRENT H Primary Care Unavailable REGIS, DR ZELALEM Bates Admitting Unavailable MARY, H Primary Care Unavailable REGIS, DR ZELALEM Bates Attending Unavailable REGIS, DR ZELALEM Bates Consulting Unavailable MIKAEL GUZMAN Consulting Unavailable Robin Ponce Primary Care Physician [phone] Ese Tan Admitting Unavailable Ese Tan Attending Unavailable Mary, Trent Primary Care Unavailable ELTAGENIEY, EHAB Attending Unavailable DOLAN, Arturo R Attending Unavailable DOLAN, Arturo R Attending Unavailable DOLAN, Arturo R Attending Unavailable DOLAN, Arturo R Referring Unavailable DOLAN, Arturo R Attending Unavailable DOLAN, Arturo R Referring Unavailable DOLAN, Arturo R Admitting Unavailable DOLAN, Arturo R Attending Unavailable Allergies Allergy Classification Reported Allergen(s) Allergy Type Date of Onset Reaction(s) Facility Angiotensin Converting Enzyme (RYANNE) Inhibitors (1 source) Lisinopril Drug Allergy [facility] Anti-Epileptic Agents (1 source) topiramate Drug Allergy [facility] Berries (1 source) [place] Food Allergy [facility] Cats (1 source) Cat Animal Allergy (Dander) [facility] Dextroamphetamine (1 source) Dextroamphetamine Drug Allergy [facility] Iodine (and Iodine containting drugs) (1 source) Iodine (And Iodine Containting Drugs) Drug Allergy [facility] Unclassified (2 sources) BLUE DYE; Translations: [BLUE DYE] Drug allergy (disorder) [facility] (8 sources) Aspirin; Translations: [Aspirin] Drug Allergy 016 Nausea [facility] Comment on above: uncoded aspirin (9 sources) atorvastatin; Translations: [atorvastatin] Drug Allergy 014 Muscle pain (finding) [facility] (12 sources) Lisinopril; Translations: [Lisinopril] Drug Allergy 013 Edema of pharynx (disorder) [facility] (3 sources) Morphine; Translations: [morphine] Drug Allergy [facility] (5 sources) strawberry allergenic extract; Translations: [Etna] Drug Allergy 011 [facility] (9 sources) topiramate; Translations: [topiramate] Drug Allergy Urticaria (disorder), Nausea (finding) [facility] (2 sources) cat dander; Translations: [cat dander] Allergy to substance [facility] (3 sources) Iodinated Contrast Media; Translations: [Iodinated Contrast Media] Allergy to substance [facility] (7 sources) Contrast media; Translations: [Contrast Dye] Drug allergy Urticaria (disorder) [facility] (7 sources) Et[place]; Translations: [Strawberries] Drug allergy Urticaria (disorder) [facility] (7 sources) SUMAtriptan; Translations: [sumatriptan] Drug Allergy Nausea (finding) [facility] (1 source) Acetaminophen / Aspirin / Caffeine Drug Allergy [facility] (2 sources) Dextroamphetamine; Translations: [Lipitor] Drug Allergy [facility] (2 sources) Iodine (And Iodine Containting Drugs) Drug allergy (disorder) [facility] (1 source) Ketorolac Drug Allergy [facility] (1 source) Plasmin Drug Allergy [facility] (3 sources) topiramate; Translations: [Topamax] Drug Allergy 013 [facility] (2 sources) Dhe Drug allergy (disorder) [facility] (2 sources) Cat/Feline Product Derivatives Drug allergy (disorder) [facility] (1 source) Iodine; Translations: [IODINE] Drug Allergy [facility] (1 source) CAT/FELINE PRODUCTS; Translations: [CAT/FELINE PRODUCTS] Propensity to adverse reactions to drug (disorder) 016 [facility] Medications Current Medications Medication Drug Class(es) [...] by mouth every six hours as needed [id number] (DAISY CET, ESGIC) 50-325-40 MG per tablet [...] for 3 day(s), 15 tab(s), Refill(s) 0, [facility]/pharmacy #[id number], 165, cm, 07/13/23 11:34:00 EDT, Height/Length Dosing, 95.5, kg, 07/13/23 11:34:00 EDT, Weight Dosing Start Date: 07/13/23 Stop Date: 07/16/23 Status: Ordered allopurinol 300 mg oral tablet (2 sources) Xanthine Oxidase Inhibitor Start: 02-21-2025 End: 02-16-2026 take 1 tablet by mouth once daily allopurinol 300 mg Tab 300 mg = 1 tab(s), Oral, Daily, X 90 day(s), # 90 tab(s), Refills(s) 3, Pharmacy: [facility]/pharmacy #[id number], 165, cm, 02/21/25 13:35:00 EDT, Height/Length Dosing, 95.4, kg, 02/21/25 13:35:00 EDT, Weight Dosing Start Date: 02/21/25 Stop Date: 02/16/26 Status: Ordered Quantity: 90.0 Unit: tab(s) Repeat number: 4 Indications: Calculus of kidney; aspirin 81 mg delayed release oral tablet [...] hydrochloride 150 mg extended release oral tablet (3 sources) Aminoketone Start: 05-05-2024 take 1 tablet by mouth once daily buPROPion 150 mg ER Tab 150 mg = 1 tab(s), Oral, Daily, Refills(s) 0 Start Date: 05/05/24 Status: Ordered Repeat number: 1 carvedilol 25 mg oral tablet (7 sources) alpha-Adrenergic Grabiel, beta-Adrenergic Grabiel Start: 05-05-2024 [...] at 1400 clopidogrel 75 mg oral tablet (9 sources) P2Y12 Platelet Inhibitor Start: 07-06-2015 take 1 tablet by mouth once daily Plavix 75 mg Tab 75 mg = 1 tab(s), Oral, Daily, Refills(s) 0 Start Date: 07/06/15 Status: Ordered Repeat number: 1 diphenhydrAMINE hydrochloride 25 mg oral tablet (6 sources) Histamine-1 Receptor Antagonist Start: 05-05-2024 take [...] procedure, # 2 cap(s), Refills(s) 0, Pharmacy: [facility]/pharmacy #[id number], 165, cm, 02/21/25 13:35:00 EDT, [...] 1 Start: 09-01-2020 take 1 capsule by mo ut once daily 60 mg, Oral, DAILY, First dose on Fri09/01/20 at 1345 Do not crush or break. May add contents of capsule to apple juice or apple sauce, but not chocolate. Start: 08-22-2020 take 1 capsule by mo uth once daily DULoxetine (CYMBALTA) 60 MG extended release capsule Take 1 capsule by mouth daily 0 08/22/2020 Active duloxetine 60 mg Cap-DR (3 sources) Start: 05-05-2024 take 1 capsule by mouth once daily duloxetine 60 mg Cap-DR = 1 cap(s), Oral, Daily, Refills(s) 0 Start Date: 05/05/24 Status: Ordered Repeat number: 1 Start: 05-05-2024 take 1 capsule by mo uth once daily duloxetine 60 mg Cap-DR = 1 cap(s), Oral, Daily, Refills(s) 0 Start Date: 05/05/24 Status: Ordered 0.4 ml enoxaparin sodium 100 mg/ml prefilled syringe (1 source) Low Molecular Weight Heparin Start: 08-31-2020 inject 40 mg by subcutaneous injection once daily 40 mg, Subcutaneous, DAILY, First dose on Erinn 08/31/20 at 0900 glimepiride 4 mg oral tablet (4 sources) Sulfonylurea Start: 05-05-2024 take 1 tablet [...] insulin, regular, human 30 unt/ml pen injector (5 sources) Insulin Start: 02-21-2025 NovoLIN 70/30 FlexPen [...] 70 mL irbesartan 150 mg oral tablet (4 sources) Angiotensin 2 Receptor Grabiel Start: 05-05-2024 take 1 tablet by mouth once daily irbesartan 150 mg Tab 150 mg = 1 tab(s), Oral, Daily, Refills(s) 0 Start Date: 05/05/24 Status: Ordered Repeat number: 1 Start: 08-14-2020 take 1 tablet by ray th once daily irbesartan (AVAPRO) 150 MG tablet Take 1 tablet by mouth daily 0 08/14/2020 Active 24 hr isosorbide mononitrate 30 mg extended release oral tablet (4 sources) Nitrate Vasodilator Start: 05-05-2024 take 1 [...] 50 mg metoclopramide 10 mg oral tablet (3 sources) Dopamine-2 Receptor Antagonist Start: 05-05-2024 take 1 tablet by mouth three times daily Reglan 10 mg Tab 10 mg = 1 tab(s), Oral, TID, Refills(s) 0 Start Date: 05/05/24 Status: Ordered Repeat number: 1 nitroglycerin 0.4 mg sublingual tablet (4 sources) Nitrate Vasodilator Start: 11-12-2023 nitroglycerin 0.4 [...] pantoprazole 40 mg delayed release oral tablet (3 sources) Proton Pump Inhibitor Start: 05-05-2024 take [...] administer the echo contrast. polyethylene glycol 3350 46417 mg powder for oral solution (1 source) [...] 08/02/2020 Active simvastatin 40 mg oral tablet (7 sources) HMG-CoA Reductase Inhibitor Start: 05-05-2024 take [...] Care, After every IV line use, Starting [facility] 08/31/20 at 0353 Start: 08-30-2020 0.9 % sodium c hloride infusion Start: 08-30-2020 End: 08-31-2020 0.9 % sodium chloride bolus tiZANidine 4 mg oral tablet (6 sources) Central alpha-2 Adrenergic Agonist Start: 07-06-2015 [...] 10 MIN PRN, High Blood Pressure, Starting [facility] 08/31/20 at 0353 Administer 10 mg [...] unspecified] Onset: 02-24-2023 Episodic Acute cerebrovascular disease (3 sources) Cerebral infarction Onset: 06-30-2014 05-05-2024 Chronic Anal and rectal conditions (4 sources) Anorectal disorder; Translations: [Other specified diseases of anus and rectum] Onset: 05-13-2024 Episodic Anxiety disorders (1 source) Anxiety disorder, unspecified; Translations: [ANXIETY DISORDER UNSPECIFIED] Onset: 04-03-2023 Chronic Aortic; peripheral; and visceral artery aneurysms (4 sources) Aortic aneurysm; Translations: [Aortic aneurysm of unspecified site, without rupture] Onset: 08-19-2011 Chronic Asthma (6 sources) Asthma 12-05-2021 Chronic Calculus of urinary tract (8 sources) Kidney stone; Translations: [Calculus of ureter] Onset: 04-03-2023 12-05-2021 Episodic Cancer of bladder (9 sources) Malignant tumor of urinary bladder 07-06-2015 Chronic Cancer of bladder (2 sources) Personal history of malignant neoplasm of bladder; Translations: [History of malignant neoplasm of bladder] Onset: 04-16-2023 Episodic Cancer; other and unspecified primary (4 sources) H/O: malignant neoplasm 11-12-2023 Episodic Cardiac dysrhythmias (3 sources) Bradycardia 05-05-2024 Episodic Chronic obstructive pulmonary disease and bronchiectasis (11 sources) Chronic obstructive lung disease; Translations: [Chronic obstructive pulmonary disease, unspecified] Onset: 02-14-2023 12-05-2021 Chronic Congestive heart failure; nonhypertensive (7 sources) Heart failure, unspecified; Translations: [Chronic systolic heart failure] Onset: 05-13-2012 05-05-2024 Chronic Coronary atherosclerosis and other heart disease (14 sources) Coronary arteriosclerosis; Translations: [Atherosclerotic heart disease of coquille coronary artery without angina pectoris] Onset: 05-06-2012 03-20-2021 Chronic Coronary atherosclerosis and other heart disease (2 sources) Presence of coronary angioplasty implant and graft; Translations: [Coronary angioplasty status] Onset: 04-03-2023 Episodic Deficiency and other anemia (6 sources) Anemia 12-05-2021 Episodic Diabetes mellitus without complication (9 sources) Diabetes mellitus; Translations: [Type 2 diabetes mellitus without complications] Onset: 02-24-2023 03-20-2021 Chronic Diseases of white blood cells (1 source) Leukocytosis; Translations: [Elevated white blood cell count, unspecified] 03-20-2021 Chronic Disorders of lipid metabolism (18 sources) Hyperlipidemia; Translations: [Hyperlipidemia, unspecified] Onset: 02-24-2023 03-20-2021 Chronic Diverticulosis and diverticulitis (6 sources) Diverticular disease 01-28-2014 Chronic Esophageal disorders (4 sources) Gastro-esophageal reflux disease without esophagitis; Translations: [Gastroesophageal reflux disease] Onset: 03-10-2023 05-05-2024 Chronic Essential hypertension (17 sources) Hypertensive disorder; Translations: [Essential (primary) hypertension] Onset: 02-24-2023 03-20-2021 Chronic External cause codes: Fall (2 sources) Fall; Translations: [Fall] Onset: 08-30-2020 08-30-2020 Fluid and electrolyte disorders (1 source) Hypokalemia; Translations: [Hypokalemia] Onset: 02-24-2023 Episodic Gastrointestinal hemorrhage (12 sources) Hemorrhage of anus and rectum; Translations: [Hemorrhage of rectum and anus] Onset: 04-03-2023 Episodic Genitourinary symptoms and ill-defined conditions (4 sources) Personal history of urinary (tract) infections; Translations: [Oliguria] Onset: 04-03-2023 02-21-2025 Episodic Headache; including migraine (7 sources) Hemiplegic migraine; 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] Onset: 08-30-2020 08-31-2020 Chronic Heart valve disorders (1 source) Presence of prosthetic heart valve; Translations: [PRESENCE OF PROSTHETIC HEART VALVE] Onset: 04-16-2023 Chronic Hypertension with complications and secondary hypertension (3 sources) Hypertensive urgency ; Translations: [Hypertensive heart disease with heart failure] Onset: 04-03-2023 08-31-2020 Chronic Menopausal disorders (2 sources) Atrophic vaginitis; Translations: [Postmenopausal atrophic vaginitis] Onset: 08-26-2025 Chronic Mood disorders (3 sources) Depressive disorder 05-05-2024 Chronic Mood disorders (1 source) Mood disorders; Translations: [DEPRESSION UNSPECIFIED] Onset: 04-03-2023 Nausea and vomiting (1 source) Nausea and vomiting; Translations: [Nausea with vomiting, unspecified] 03-20-2021 Episodic Nonspecific chest pain (6 sources) Left sided chest pain; Translations: [Chest pain, unspecified] Onset: 04-01-2023 03-20-2021 Episodic Osteoarthritis (7 sources) Arthritis; Translations: [Unspecified osteoarthritis, unspecified site] Onset: 04-16-2023 12-05-2021 Chronic Other aftercare (2 sources) Long-term current use of drug therapy; Translations: [Other care home (current) drug therapy] Onset: 02-24-2023 Episodic Other aftercare (1 source) 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; Translations: [SALES REPRESENTATIVE MALT LIQUORS CURRENT USE OF INSULIN] Onset: 04-16-2023 Episodic Other aftercare (1 source) Other care home (current) drug therapy; Translations: [OTH USP CURRENT DRUG THERAPY] Onset: 04-16-2023 Episodic Other and ill-defined heart disease (6 sources) Heart disease 12-05-2021 Chronic Other and ill-defined heart disease (3 sources) Left ventricular hypertrophy 05-05-2024 Chronic Other [...] Onset: 03-30-2025 Episodic Other connective tissue disease (6 sources) Fibromyositis 01-28-2014 Episodic Other connective tissue disease (1 source) Fibromyalgia; Translations: [FIBROMYALGIA] Onset: 04-16-2023 Episodic Other diseases of kidney and ureters (1 source) Other specified disorders of kidney and ureter; Translations: [Other specified disorders of kidney and ureter] Onset: 02-18-2022 Chronic Other diseases of kidney and ureters (4 sources) Cyst of kidney 11-12-2023 Episodic Other [...] Chronic Other nutritional; endocrine; and metabolic disorders (3 sources) Body mass index 30+ - obesity 05-13-2024 Chronic Other nutritional; endocrine; and metabolic disorders (3 sources) Obese class III 05-05-2024 Chronic Paralysis (3 sources) Right hemiparesis 05-05-2024 Chronic Residual codes; [...] of mental health and substance abuse codes (3 sources) Tobacco use and exposure - finding 05-13-2024 Chronic Spondylosis; intervertebral disc disorders; other back problems (3 sources) Lumbosacral radiculopathy 05-05-2024 Episodic Substance-related disorders (7 sources) Smoker; Translations: [Nicotine dependence, cigarettes, uncomplicated] Onset: 04-16-2023 02-24-2023 Chronic Comment on above: Added secondary to d ocumentation in Social History. Syncope (5 sources) Syncope and collapse; Translations: [Near syncope] Onset: 08-31-2020 08-31-2020 Episodic Thyroid disorders (3 sources) Hypothyroidism 05-05-2024 Chronic Transient cerebral ischemia (3 sources) Transient cerebral ischemia Onset: 05-06-2012 05-05-2024 Chronic Unclassified (1 source) PERSONAL HISTORY OF COVID-19; Translations: [PERSONAL HISTORY OF COVID-19] Onset: 04-03-2023 Unclassified (1 source) CONTACT W/AND (SUSP) EXPOS COVID-19; Translations: [CONTACT W/AND (SUSP) EXPOS COVID-19] Onset: 02-21-2023 Unclassified (3 sources) Patient encounter status 05-13-2024 Past or Other Problems Problem Classification Problem Date Documented Date Episodic/Chronic E Codes: Fall (1 source) Unspecified fall, initial encounter; Translations: [UNSPECIFIED FALL INITIAL ENCOUNTER] Onset: 2022 Episodic Other aftercare (1 source) 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) use of antithrombotics/anti platelets; Translations: [USP ANTITHROMBOT/ANTIPLA TLETS] Onset: 2022 Episodic Other aftercare (1 source) senior care (current) use of aspirin; Translations: [USP CURRENT USE OF ASPIRIN] Onset: 2022 Episodic Other aftercare (1 source) senior care (current) use of oral hypoglycemic drugs; Translations: [SALES REPRESENTATIVE MALT LIQUORS USE ORAL HYPOGLYCEMIC DX] Onset: 2022 Episodic [...] KNEE INITIAL ENC] Onset: 2022 Episodic Unclassified (6 sources) Cystoscopy and transurethral resection of bladder tumor 09-07-2010 Results Test Name Value Interpretation Reference Range Facility Ambulatory Visit Summaryon 1 Ambulatory Visit Summary Ambulatory Visit Summary JESSI AVILA :1955 Visit Date:08/26/2025 Ambulatory Visit Instructions Your Diagnosis Kidney stones History of bladder cancer Atrophic vaginitis Microhematuria Tests Performed XR Abdomen 1 View -- Results Pending -- Please visit your patient portal for your results or contact your primary care physician. Your Care Team Attending Physician - Arturo DOLAN MD Primary Care Physician - Robin Ponce MD Referring Physician - Arturo DOLAN MD This Is Your Medications List allopurinol (allopurinol 300 mg Tab) Contact prescribing physician if questions or [...] stent, Tonsillectomy, Vaginal hysterectomy. Discharge Vitals Temperature (Tympanic) 36.7 ???C Heart Rate (Peripheral) 76 Respiratory Rate 16 Blood Pressure 130/78 Height 165 cm Height 65 in Weight 95.4 kg Weight 210.321 lb BMI 35.04 What to do next Scheduled Follow-Up Appointments Friday2025 12:15 PM EDT With: Arturo DOLAN MD Where: [facility] [address] [address]- You Need to Schedule the Following Appointments Follow Up with Arturo DOLAN MD, URL When: Where: [facility] [address], [place] [address]- Medications What How Much When Why Instructions Unchanged allopurinol (allopurinol 300 mg Tab) 1 Tablets By Mouth Every day Kidney stones Duration: 90 Days Unchanged buPROPion (buPROPion 150 mg ER Tab) [...] or concerns Unchanged duloxetine (duloxetine 60 mg Jaron-) 1 Capsules By Mouth Every day Contact [...] Anemia Aneurysm of thoracic aorta Antiplatelet or antithromboti (more content not included)... [facility] Urology Office/Clinic Noteon 08-26-2025 Urology Office/Clinic Note Urology Office/Clinic Note Chief Complaint Pt here for 6 month follow up HPI Staff 6 month f/u to cysto. Dx: kidney stones, low urine output, hx of bladder cancer and left renal cyst Pt denies pain/burning denies visible blood denies flank Pt reports no urinary issues at this time History of Present Illness Tests reviewed: UA, cysto I have reviewed the previous health record [...] HPI. Physical Exam Vitals & Measurements T: 36.7 ???C(Tympanic) HR: 76(Peripheral) RR: 16 BP: 130/78 HT: 65 in HT: 165 cm WT: 210.321 lb WT: 95.4 kg BMI: 35.04 General Appearance: alert, no distress, well nourished, well developed adult. Assessment/Plan 1. Kidney stones (N20.0: Calculus of [...] U24 Phos 1129 H. Serum labs wnl. No S/S of stones since prior OV. Started Allopurinol 300 mg qd at prior OV. She is taking this. Estimates she drinks 6-7 bottles of water daily. Frequency because of this. No recent imaging, recommended updating imaging. Pt agreeable. Follow up 1 yr with KUB or sooner if needed. Pt understands and agrees with plan. -Increase fluid intake, goal 10 bottles of water daily -KUB soon, will call with results 2. History of bladder cancer (Z85.51: Personal history of malignant neoplasm of bladder) History of low-grade TA in 2009 without recurrence. [1] Most recent cysto 02/22/25. 3. Atrophic vaginitis (N95.2: Postmenopausal atrophic vaginitis) Mild A.V. noted per cysto 02/22/25. 4. Microhematuria (R31.29: Other microscopic hematuria) UA shows small blood (neg) wo signs of infection. Denies gross hematuria. Asx for infection. Follow-up With When Contact Information MAGDALENO PRADO, Arturo Bates, URL [facility] [address], [place] [address]- Additional Instructions: 1 yr with [facility] Patient Education Dietary Guidelines to Help Prevent Kidney Stones I, Franice Myers, personally scribed for Dr. Dolan on 08/26/2025 10:39:54. . Documentation recorded by the scribe, Francie Myers, accurately reflects the services(s) I performed and decisions made by me. Authenticated by Dr. Dolan on 08/26/2025 10:41:47. Problem List/Past Medical History Ongoing Anemia Aneurysm of thoracic aorta Antiplatelet or antithrombotic long-term use Arthritis Asthma Atrophic vaginitis BMI 35.0-35.9,adult Bradycardia BRBPR (bright red blood per rectum) Cerebral infarction Chronic systolic heart failure Class 3 obesity COPD (chronic obstructive pulmonary disease) Coronary atherosclerosis Depressive disorder Diabetes mellitus Gastroesophageal reflux disease Heart disease High cholesterol History of bladder cancer History of myocardial infarction Hyperlipidemia Hypertension Hypothyroidism Kidney stones Low urine output Lumbosacral radiculopathy LVH (left ventricular hypertrophy) Migraines Rectal bleeding Rectal pain Renal cyst, left Right hemiparesis Smoker Systolic heart failure Tobacco use Transient cerebral ischemia Historical Benign essential hypertension Bladder cancer Cystoscopy and transurethral resection of bladder tumor Diverticulosis Fibromyalgia Hypercholesterolemia Procedure/Surgical History Colonoscopy (06/23/2024), Removal of ureteral stent (12/30/2023), Cystoscopic laser lithotripsy of ureteric calculus (12/18/2023), Cystoscopic ureteroneocystostomy with insertion of ureteral stent (11/13/2023), EGD - esophagogastroduodenoscopy (10/27/2018), Cystourethroscopy (separate procedure) (06/08/2015), Colonoscopy (03/18/2014), (more content not included)... [facility] Comment on above: Result Comment: Elec tronically Signed By: Arturo DOLAN MD\.br\Date and Time Signed: 08/26/25 10:41 EDT\.br\Electronically Co-Signed By: Francie Myers\.br\Date and Time Co-Signed: 08/26/25 10:40 EDT Office Visiton 03-30-2025 Follow-up visit [id number] Sergio Avila 1955 F Date Provider Department Center 03/30/2025 [id number] [facility] Family History Problem Relation Age of Onset No Known Problems Mother No Known Problems Father Family Status - Relation Status Age at Mother Father Level of Service:53826 IN OFFICE/OUTPATIENT ESTABLISHED LOW MDM 20 MIN Normal [facility] Orders Onlyon 03-30-2025 Orders Only [id number] Sergio Avila 1955 F Date Provider Department [place] 03/30/2025 [id number] ACUNA [facility] Family History Problem Relation Age of Onset No Known Problems Mother No Known Problems Father Family Status - Relation Status Age at Mother Father Normal [facility] Main OR Intraoperative Recor don 02-22-2025 Main OR Intraoperative Record Main [place] Intraoperative Record IntraOp Document Type FTURO Summary Primary Physician: Arturo DOLAN MD Finalized Date/Time: 02/22/25 14:57:05 Pt. Name: JESSI AVILAO.B./Sex: 1955 Female Med Rec #: [id number] Physician: Arturo DOLAN MD Financial #: [id number] Pt. Type: O Room/Bed: / Admit/Disch: 02/22/25 13:01:25 - Institution: Case Times FTURO Entry 1 Patient Times In Room 02/22/25 14:41:00 Out Room 02/22/25 14:56:00 Procedure Times Start 02/22/25 14:50:00 Stop 02/22/25 14:53:00 Anesthesia Times Last Modified By: Eusebia Nathan 02/22/25 14:57:00 Case Attendance FTURO Entry 1 Entry 2 Entry 3 Case Attendee MAGDALENO PRADO, Eusebia Ferreira [employer], Ashlee Estrada Role Performed Surgeon - Primary Community Manager - Primary Scrub - Primary Time In [...] Procedure Yes Primary Surgeon Arturo DOLAN MD 02/22/25 14:50:00 Stop 02/22/25 14:53:00 Anesthesia Type [...] Nathan 02/22/25 14:53:20 Case Comments Finalized By: Eusbeia Nathan Document Signatures Signed By: Eusebia Nathan 02/22/25 14:57 Normal [facility] Main OR Preoperative Recordo n 02-22-2025 Main OR Preoperative Record Main OR Preoperative Record Holding Area Document Type FTURO Summary Primary Physician: Arturo DOLAN MD Finalized Date/Time: 02/22/25 14:39:57 Pt. Name: JESSI AVILA/Sex: 1955 Female Med Rec #: [id number] Physician: Arturo DOLAN MD Financial #: [id number] Pt. Type: O Room/Bed: / Admit/Disch: 02/22/25 [...] Complaints of Pain: No Skin Integrity Intact, [place], Warm, & Dry Vitals - EU Blood Pressure 127/79 Pulse 87 bpm Respirations 18 br/min SPO2 97 % Additional None RN Reviewed Yes Specimens Collected Last Modified By: Eusebia Nathan 02/22/25 14:39:56 Finalized By: Eusebia Nathan Document Signatures Signed By: Laurie Venegas LPN 02/22/25 14:18 Eusebia Nathan 02/22/25 14:39 Unfinalized History Date/Time Username Reason for Unfinalizing Freetext Reason for Unfinalizing 02/22/25 14:39 [id number] Adding Additional Data Normal [facility] Operative Reporton Operative Report Operative Report Patient: [...] urine. The Urethra was dilated to: 30 Libyan w/ sounds. Devices Implanted: None. Removal: Cystoscope is removed, The patient tolerated it well. Postoperative Information Discharge: Patient is discharged home with antibiotic coverage, Follow up arranged. We discussed considering initiating estrogen cream. For now we will wait half a year and reevaluate.. Normal [facility] Comment on above: Result Comment: Elec tronically [...] Where: [facility] [address], [place] [address] [phone] Medications What How Much When Why Instructions New allopurinol (allopurinol 300 mg Tab) 1 Tablets By Mouth Every day Kidney stones Duration: 90 Days Refills: 3 Pickup at [facility]/pharmacy #[id number] New doxycycline (doxycycline hyclate 100 mg Cap) 1 Capsules By Mouth Every day take one day before procedure and take one day after procedure Pickup at [facility]/pharmacy #[id number] Unchanged buPROPion (buPROPion 150 mg ER Tab) [...] Pharmacy Information (more content not included)... Normal [facility] Ambulatory Visit Summary Ambulatory Visit Summary JESSI AVILA :1955 Visit Date:02/21/2025 Ambulatory Visit Instructions Your Diagnosis Kidney stones Low urine output History of bladder cancer Renal cyst, left Your Care Team Attending Physician - MAGDALENO [...] [facility] [address] , [place] [address] [phone] Medications What How Much When Instructions Unchanged [...] rectum) Cerebral (more content not included)... Normal [facility] Urology Office/Clinic Noteon 02-21-2025 Urology Office/Clinic Note [...] 12/18/24 - 90% uric acid, 10% CaOx [place]. Metabolic workup completed 01/01/24 at [facility]. CT AP wo con 04/21/24 TB - neg for stones. No updated imaging [...] renal mass. Follow-up With When Contact Information Arturo DOLAN MD, URL [facility] [address] [place] [address] [phone] Additional Instructions: sched cysto/poss UD Patient Education [...] per rect (more content not included)... Normal [facility] Comment on above: Result Comment: Elec tronically Signed By: Arturo DOLAN MD\.br\Date and Time Signed: 02/21/25 14:06 EDT\.br\Electronically Co-Signed By: Karina Vaca\.br\Date and Time Co-Signed: 02/21/25 14:04 EDT POINT OF CARE GLUCOSEon 03-19 Glucose [Mass/Vol] 90 mg/dL Normal 74-106 [facility] Comment on above: Performed By: #### P OCGLUC #### [facility] [address] [address] [address] Win Ardon CARDIAC STRESS TESTon 2022 [...] reported nuclear myocardial perfusion imaging. Normal [facility] CBC AUTO DIFFon 04-01-2023 BASO # 0.1 103/ul Normal 0.0-0.1 [facility] Comment on above: Performed By: #### C BC #### [facility] [address] [address] [address] Win Ardon Basophils/100 WBC (Bld) 1.3 % Normal 0.2-2.0 [facility] Comment on above: Performed By: #### C BC #### [facility] [address] [place] [address] Dr. Win Ardon EO # 0.4 103/ul Normal 0.0-0.7 [facility] Comment on above: Performed By: #### C BC #### [facility] [address] [address] [address] Win Ardon Eosinophils/100 WBC (Bld) 4.1 % Normal 0.9-7.0 [facility] Comment on above: Performed By: #### C BC #### [facility] [address] [place] [address] Dr. Win Ardon Erythrocyte distribution width (RBC) [Ratio] 13.3 % Normal 11.0-15.0 [facility] Comment on above: Performed By: #### C BC #### [facility] [address] [place] [address] Dr. Win Ardon Hematocrit (Bld) [Volume fraction] 38.9 % Normal 36.0-48.0 [facility] Comment on above: Performed By: #### C BC #### [facility] [address] [place] [address] Dr. Win Ardon Hemoglobin (Bld) [Mass/Vol] 13.2 g/dL Normal 12.0-16.0 [facility] Comment on above: Performed By: #### C BC #### [facility] [address] [place] [address] Dr. Win Ardon IG # 0.04 10e3/ul Critically high 0.00-0.03 [facility] Comment on above: Performed By: #### C BC #### [facility] [address] [place] [address] Dr. Win Ardon IG % 0.4 % Normal 0.0-0.5 [facility] Comment on above: Performed By: #### C BC #### [facility] [address] [place] [address] Dr. Win Ardon LYMPH # 3.2 103/ul Normal 1.2-3.8 [facility] Comment on above: Performed By: #### C BC #### [facility] [address] [place] [address] Dr. Win Ardon Lymphocytes/100 WBC (Bld) 34.7 % Normal 20.5-60.0 [facility] Comment on above: Performed By: #### C BC #### [facility] [address] [place] [address] Dr. Win Ardon MANUAL DIFF REQ NO Normal [facility] Comment on above: Performed By: #### C BC #### [facility] [address] [place] [address] Dr. Win Ardon MCH (RBC) [Entitic mass] 31.3 pg Normal 26.7-34.0 [facility] Comment on above: Performed By: #### C BC #### [facility] [address] [place] [address] Dr. Win Ardon MCHC (RBC) [Mass/Vol] 33.9 g/dL Normal 29.9-35.2 [facility] Comment on above: Performed By: #### C BC #### [facility] [address] [place] [address] Dr. Win Ardon MCV (RBC) [Entitic vol] 92.2 fL Normal 81.0-99.0 [facility] Comment on above: Performed By: #### C BC #### [facility] [address] [place] [address] Dr. Win Ardon MONO # 0.7 103/ul Normal 0.3-0.8 [facility] Comment on above: Performed By: #### C BC #### [facility] [address] [place] [address] Dr. Win Ardon Monocytes/100 WBC (Bld) 7.1 % Normal 1.7-12.0 [facility] Comment on above: Performed By: #### C BC #### [facility] [address] [place] [address] Dr. Win Ardon NEUT # 4.9 103/ul Normal 1.4-6.5 [facility] Comment on above: Performed By: #### C BC #### [facility] [address] [place] [address] Dr. Win Ardon Neutrophils/100 WBC (Bld) 52.4 % Normal 43.0-75.0 [facility] Comment on above: Performed By: #### C BC #### [facility] [address] [place] [address] Dr. Win Ardon Platelet mean volume (Bld) [Entitic vol] 10.6 fL Normal 9.5-13.5 [facility] Comment on above: Performed By: #### C BC #### [facility] [address] [place] [address] Dr. Win Ardon PLT 231 103/ul Normal 150-450 [facility] Comment on above: Performed By: #### C BC #### [facility] [address] [place] [address] Dr. Win Ardon RBC 4.22 106/ul Normal 4.20-5.40 [facility] Comment on above: Performed By: #### C BC #### [facility] [address] [place] [address] Dr. Win Ardon WBC 9.3 103/ul Normal 4.0-11.0 [facility] Comment on above: Performed By: #### C BC #### [facility] [address] [place] [address] ABD/PELVIS WO CONon [...] by: LISSETT ALAN Date: 2023-04-01 20:03 Normal [facility] LACTATE/LACTIC ACIDon 2022 Lactate [Moles/Vol] 1.2 mmol/L Normal 0.4-2.0 [facility] Comment on above: Performed By: #### L ACT #### [facility] [address] [place] [address] Dr. Win Ardon NM STRESS/REST MULTIon 04-01 NM STRESS/REST MULTI Patient: JESSI AVILA Exam Date: 04/01/2023 : 1955 Gender:F Ordering : MRS. JONO LOPEZ NATALEE Admission #: [id number] Family : SHAIKH Aroldo HERNANDEZ . Order #: [id number] CLICK HERE TO VIEW EXAM RADIOLOGY REPORT [...] Clark M.D. on 04/02/2023 at 11:10 Normal [facility] OCC BLD IMMUNO SCREENon 03-17 OCCULT BLOOD Positive Abnormal NEGATIVE [facility] Comment on above: Performed By: #### O BSCRN #### [facility] [address] [place], [place] [address] Dr. Win Ardon PROF 14(COMP METB)on 023 Albumin [Mass/Vol] 3.8 g/dL Normal 3.4-5.0 [facility] Comment on above: Performed By: #### C MP ####[facility] [address] [id number]. Win Ardon Albumin/Globulin [Mass ratio] 1.1 {ratio} Normal [facility] Comment on above: Performed By: #### C MP ####[facility] [address] [place], [place] [address]LdDr. Win Ardon ALP [Catalytic activity/Vol] 99 U/L Normal 46-116 [facility] Comment on above: Performed By: #### C MP ####[facility] [address] [address]Dr. Win Ardon ALT [Catalytic activity/Vol] 17 U/L Normal 14-59 [facility] Comment on above: Performed By: #### C MP ####[facility] [address] [id number]. Win Ardon Anion gap [Moles/Vol] 13.4 mmol/L Normal [facility] Comment on above: Performed By: #### C MP ####[facility] [address] [id number]. Win Ardon AST [Catalytic activity/Vol] 11 U/L Critically low 15-37 [facility] Comment on above: Performed By: #### C MP ####[facility] [address] [address]Dr. Win Duglas Bilirubin [Mass/Vol] 0.6 mg/dL Normal 0.2-1.0 [facility] Comment on above: Performed By: #### C MP ####[facility] [address] [place], [place] [address]Dr. Win Duglas Calcium [Mass/Vol] 9.1 mg/dL Normal 8.5-10.1 [facility] Comment on above: Performed By: #### C MP ####[facility] [address] [place], [place] [address]Dr. Win Duglas Chloride [Moles/Vol] 106 mmol/L Normal 98-107 [facility] Comment on above: Performed By: #### C MP ####[facility] [address] [address]Dr. Win Ardon CO2 [Moles/Vol] 29.2 mmol/L Normal 21.0-32.0 [facility] Comment on above: Performed By: #### C MP ####[facility] [address] [address]Dr. Claudiaaida Ardon Creatinine [Mass/Vol] 0.95 mg/dL Normal 0.55-1.02 [facility] Comment on above: Performed By: #### C MP ####[facility] [address] [id number]. Win Ardon EGFR-AF GERMAN >60 Normal >=60 [facility] Comment on above: Performed By: #### C MP ####[facility] [address] [id number]. Win Ardon EGFR-NON AF GERMAN 59 mL/min/1.73m2 Critically low >=60 [facility] Comment on above: Performed By: #### C MP ####[facility] [address] [id number]. Win Ardon Globulin (S) [Mass/Vol] 3.4 g/dL Normal [facility] Comment on above: Performed By: #### C MP ####[facility] [address] [address]Dr. Win Duglas Glucose [Mass/Vol] 162 mg/dL Critically high 74-106 [facility] Comment on above: Performed By: #### C MP ####[facility] [address] [address]Dr. Win Ardon Potassium [Moles/Vol] 3.6 mmol/L Normal 3.5-5.1 [facility] Comment on above: Performed By: #### C MP ####[facility] [address] [address]Dr. Win Duglas Protein [Mass/Vol] 7.2 g/dL Normal 6.4-8.2 [facility] Comment on above: Performed By: #### C MP ####[facility] [address] [address]Dr. Win Ardon Sodium [Moles/Vol] 145 mmol/L Normal 136-145 [facility] Comment on above: Performed By: #### C MP ####[facility] [address] [address]Dr. Win Ardon Urea nitrogen [Mass/Vol] 14.0 mg/dL Normal 7.0-18.0 [facility] Comment on above: Performed By: #### C MP ####[facility] [address] [place], [place] [address]Dr. Win Ardon Urea nitrogen/Creatinine [Mass ratio] 14.7 mg/mg Normal [facility] Comment on above: Performed By: #### C MP ####[facility] [address] [place], [place] [address]Dr. Win Ardon PROTIMEon 04-01-2023 INR Coag (PPP) [Relative time] 1.02 {INR} Normal [facility] Comment on above: Performed By: #### P TT, PT ####[facility] [address] [place], [place] [address]Dr. Win Ardon INR GUIDELINES SEE BELOW Normal [facility] Comment on above: Result Comment: MAGDA RED INR: 2.0 - 3.0 CONDITIONS NOT LISTED BELOW 2.5 - 3.5 FOR PROSTHETIC HEART VALVE REPLACEMENT 2.5 - 3.5 RECURRENT THROMBOSIS Performed By: #### P TT, PT ####[facility] [address] [place], [place] [address]Dr. Win Ardon PT Coag (PPP) [Time] 10.8 s Normal 9.0-11.6 [facility] Comment on above: Performed By: #### P TT, PT ####[facility] [address] [place], [place] [address]Dr. Win Ardon PTTon 04-01-2023 aPTT Coag (Bld) [Time] 26.5 s Normal 22.3-36.2 [facility] Comment on above: Performed By: #### P TT, PT ####[facility] [address] [place], [place] [address]Dr. Win Ardon TYPE AND SCREENon 04-01-2023 TYPE AND SCREEN Negative Normal [facility] Comment on above: Performed By: #### T NS ####[facility] [address] [place], [place] [address]Dr. Win Ardon CBC AUTO DIFFon 03-24-2023 BASO # 0.1 103/ul Normal 0.0-0.1 [facility] Comment on above: Performed By: #### C BC ####[facility] [address] [id number]. Win Ardon Basophils/100 WBC (Bld) 1.0 % Normal 0.2-2.0 [facility] Comment on above: Performed By: #### C BC ####[facility] [address] [id number]. Win Ardon EO # 0.3 103/ul Normal 0.0-0.7 [facility] Comment on above: Performed By: #### C BC ####[facility] [address] [place], [place] [address]Dr. Win Ardon Eosinophils/100 WBC (Bld) 3.3 % Normal 0.9-7.0 [facility] Comment on above: Performed By: #### C BC ####[facility] [address] [place], [place] [address]Dr. Win Ardon Erythrocyte distribution width (RBC) [Ratio] 13.2 % Normal 11.0-15.0 [facility] Comment on above: Performed By: #### C BC ####[facility] [address] [place], [place] [address]Dr. Win Ardon Hematocrit (Bld) [Volume fraction] 41.3 % Normal 36.0-48.0 [facility] Comment on above: Performed By: #### C BC ####[facility] [address] [place], [place] [address]Dr. Win Ardon Hemoglobin (Bld) [Mass/Vol] 13.6 g/dL Normal 12.0-16.0 [facility] Comment on above: Performed By: #### C BC ####[facility] [address] [place], [place] [address]Dr. Win Ardon IG # 0.04 10e3/ul Critically high 0.00-0.03 [facility] Comment on above: Performed By: #### C BC ####[facility] [address] [place], [place] [address]Dr. Win Ardon IG % 0.4 % Normal 0.0-0.5 [facility] Comment on above: Performed By: #### C BC ####[facility] [address] [id number]. Win Ardon LYMPH # 2.2 103/ul Normal 1.2-3.8 [facility] Comment on above: Performed By: #### C BC ####[facility] [address] [id number]. Win Duglas Lymphocytes/100 WBC (Bld) 23.8 % Normal 20.5-60.0 [facility] Comment on above: Performed By: #### C BC ####[facility] [address] [address]Dr. Claudiaaida Ardon MANUAL DIFF REQ NO Normal [facility] Comment on above: Performed By: #### C BC ####[facility] [address] [place], [place] [address]Dr. Win Duglas MCH (RBC) [Entitic mass] 30.6 pg Normal 26.7-34.0 [facility] Comment on above: Performed By: #### C BC ####[facility] [address] [place], [place] [address]Dr. Win Ardon MCHC (RBC) [Mass/Vol] 32.9 g/dL Normal 29.9-35.2 [facility] Comment on above: Performed By: #### C BC ####[facility] [address] [address]Dr. Win Duglas MCV (RBC) [Entitic vol] 93.0 fL Normal 81.0-99.0 [facility] Comment on above: Performed By: #### C BC ####[facility] [address] [place], [place] [address]Dr. Win Ardon MONO # 0.7 103/ul Normal 0.3-0.8 [facility] Comment on above: Performed By: #### C BC ####[facility] [address] [place], [place] [address]Dr. Win Duglas Monocytes/100 WBC (Bld) 7.3 % Normal 1.7-12.0 [facility] Comment on above: Performed By: #### C BC ####[facility] [address] [place], [place] [address]Uw. Win Ardon NEUT # 5.8 103/ul Normal 1.4-6.5 [facility] Comment on above: Performed By: #### C BC ####[facility] [address] [place], [place] [address]Kl. Win Ardon Neutrophils/100 WBC (Bld) 64.2 % Normal 43.0-75.0 [facility] Comment on above: Performed By: #### C BC ####[facility] [address] [id number]. Win Ardon Platelet mean volume (Bld) [Entitic vol] 11.0 fL Normal 9.5-13.5 [facility] Comment on above: Performed By: #### C BC ####[facility] [address] [id number]. Win Ardon PLT 243 103/ul Normal 150-450 [facility] Comment on above: Performed By: #### C BC ####[facility] [address] [place], [place] [address]Ng. Win Ardon RBC 4.44 106/ul Normal 4.20-5.40 [facility] Comment on above: Performed By: #### C BC ####[facility] [address] [id number]. Win Ardon WBC 9.1 103/ul Normal 4.0-11.0 [facility] Comment on above: Performed By: #### C BC ####[facility] [address] [id number] Ardon LIPID PROFILEon 03-24-2023 CHOL-HDL RATIO NORM SEE BELOW Normal [facility] Comment on above: Result Comment: 3.3 - 4.4 LOW RISK 4.4 - 7.1 AVERAGE RISK 7.1 - 11.0 MODERATE RISK >11.0 HIGH RISK Performed By: #### C MP, LIPID #### [facility] [address] [place], [place] [address] Dr. Win Ardon Cholesterol [Mass/Vol] 99 mg/dL Normal <=200 [facility] Comment on above: Performed By: #### C MP, LIPID #### [facility] [address] [address] [address] Win Ardon Cholesterol in HDL [Mass/Vol] 34 mg/dL Critically low 40-60 [facility] Comment on above: Performed By: #### C MP, LIPID #### [facility] [address] [address] [address] Win Ardon Cholesterol in LDL [Mass/Vol] 35.8 mg/dL Normal [facility] Comment on above: Performed By: #### C MP, LIPID #### [facility] [address] [address] [address] Win Ardon Cholesterol.total/Ch olesterol in HDL [Mass ratio] 2.9 {ratio} Normal [facility] Comment on above: Performed By: #### C MP, LIPID #### [facility] [address] [place] [address] Dr. Win Ardon HDL NORMAL > or = 60 mg/dl - LO W CARDIOVASCULAR RISK <40 mg/dl - HIGH CARDIOVASCULAR RISK Normal [facility] Comment on above: Performed By: #### C MP, LIPID #### [facility] [address] [place] [address] Dr. Win Ardon LDL CALC NORMAL SEE BELOW Normal [facility] Comment on above: Result Comment: <100 mg/dl OPTIMAL 100 - 129 mg/dl NEAR OR ABOVE OPTIMAL 130 - 159 mg/dl BORDERLINE HIGH 160 - 189 mg/dl HIGH >190 mg/dl VERY HIGH Performed By: #### C MP, LIPID #### [facility] [address] [place] [address] Dr. Win Ardon Triglyceride [Mass/Vol] 146 mg/dL Normal <=150 [facility] Comment on above: Performed By: #### C MP, LIPID #### [facility] [address] [place] [address] Dr. Win Ardon VLDL CALC 29.2 mg/dL Normal [facility] Comment on above: Performed By: #### C MP, LIPID #### [facility] [address] [place], [place] [id number] Dr. Win Ardon PROF 14(COMP METB)on 023 Albumin [Mass/Vol] 3.9 g/dL Normal 3.4-5.0 [facility] Comment on above: Performed By: #### C MP, LIPID #### [facility] [address] [address] [address] Win Ardon Albumin/Globulin [Mass ratio] 1.1 {ratio} Normal [facility] Comment on above: Performed By: #### C MP, LIPID #### [facility] [address] [address] [address] Win Ardon ALP [Catalytic activity/Vol] 96 U/L Normal 46-116 [facility] Comment on above: Performed By: #### C MP, LIPID #### [facility] [address] [place] [address] Dr. Win Ardon ALT [Catalytic activity/Vol] 15 U/L Normal 14-59 [facility] Comment on above: Performed By: #### C MP, LIPID #### [facility] [address] [place] [address] Dr. Win Ardon Anion gap [Moles/Vol] 12.1 mmol/L Normal [facility] Comment on above: Performed By: #### C MP, LIPID #### [facility] [address] [place] [address] Dr. Win Ardon AST [Catalytic activity/Vol] 10 U/L Critically low 15-37 [facility] Comment on above: Performed By: #### C MP, LIPID #### [facility] [address] [place] [address] Dr. Win Ardon Bilirubin [Mass/Vol] 0.8 mg/dL Normal 0.2-1.0 [facility] Comment on above: Performed By: #### C MP, LIPID #### [facility] [address] [place] [address] Dr. Win Ardon Calcium [Mass/Vol] 9.1 mg/dL Normal 8.5-10.1 [facility] Comment on above: Performed By: #### C MP, LIPID #### [facility] [address] [address] [address] Win Ardon Chloride [Moles/Vol] 102 mmol/L Normal 98-107 [facility] Comment on above: Performed By: #### C MP, LIPID #### [facility] [address] [address] [address] Win Ardon CO2 [Moles/Vol] 26.0 mmol/L Normal 21.0-32.0 [facility] Comment on above: Performed By: #### C MP, LIPID #### [facility] [address] [address] [address] Win Ardon Creatinine [Mass/Vol] 0.95 mg/dL Normal 0.55-1.02 [facility] Comment on above: Performed By: #### C MP, LIPID #### [facility] [address] [place] [address] Dr. Win Ardon EGFR-AF GERMAN >60 Normal >=60 [facility] Comment on above: Performed By: #### C MP, LIPID #### [facility] [address] [address] [address] Win Ardon EGFR-NON AF GERMAN 59 mL/min/1.73m2 Critically low >=60 [facility] Comment on above: Performed By: #### C MP, LIPID #### [facility] [address] [address] [address] Win Ardon Globulin (S) [Mass/Vol] 3.7 g/dL Normal [facility] Comment on above: Performed By: #### C MP, LIPID #### [facility] [address] [address] [address] Win Ardon Glucose [Mass/Vol] 336 mg/dL Critically high 74-106 [facility] Comment on above: Performed By: #### C MP, LIPID #### [facility] [address] [address] [address] Win Ardon Potassium [Moles/Vol] 4.1 mmol/L Normal 3.5-5.1 [facility] Comment on above: Performed By: #### C MP, LIPID #### [facility] [address] [place], [place] [address] Dr. Win Ardon Protein [Mass/Vol] 7.6 g/dL Normal 6.4-8.2 [facility] Comment on above: Performed By: #### C MP, LIPID #### [facility] [address] [place], [place] [address] Dr. Win Ardon Sodium [Moles/Vol] 136 mmol/L Normal 136-145 [facility] Comment on above: Performed By: #### C MP, LIPID #### [facility] [address] [place], [place] [address] Dr. Win Ardon Urea nitrogen [Mass/Vol] 10.0 mg/dL Normal 7.0-18.0 [facility] Comment on above: Performed By: #### C MP, LIPID #### [facility] [address] [place], [place] [address] Dr. Win Ardon Urea nitrogen/Creatinine [Mass ratio] 10.5 mg/mg Normal [facility] Comment on above: Performed By: #### C MP, LIPID #### [facility] [address] [place], [place] [address] Dr. Win Ardon CHEMISTRYOrdered By: Lab ROP User on 02-24-2023 Glucose [Mass/Vol] 144 mg/dL High 55 - 99 mg/dL [facility] [place] [place] POC Subsection Comment on above: Result Comment: Edilia arleth Meter POC Device SN [id number] Invalid Interpretation Code [facility] [place] [place] POC Subsection POC User ID [id number] Invalid Interpretation Code [facility] [place] [place] POC Subsection POC Username KRISTI MADDEN Invalid Interpretation Code [facility] [place] [place] POC Subsection Glucose [Mass/Vol] 76 mg/dL Normal 55 - 99 mg/dL [facility] [place] [place] POC Subsection Comment on above: Result Comment: Edilia arleth Meter POC Device SN [id number] Invalid Interpretation Code [facility] [place] [place] POC Subsection POC User ID [id number] Invalid Interpretation Code [facility] [place] [place] POC Subsection POC Username KRISTI MADDEN Invalid Interpretation Code [facility] [place] [place] POC Subsection CHEMISTRYOrdered By: SYSTEM SYSTEM on 02-24-2023 Potassium [Moles/Vol] 3.7 mmol/L Normal 3.5 - 5.3 mmol/L [facility] [place] [place] Remisol Anion gap [Moles/Vol] 8 mmol/L Normal [...] 38 mL/min/1.73 m2 Low >=59mL/min /1.73 m2 [facility] S Globulin (S) [Mass/Vol] [...] Interpretation Code Negative [facility] UA Auto SS Hulett.plasma/Lithi um.RBC (Bld) [Mass ratio] 21-30 /HPF Invalid [...] [facility] UA Auto SS Urobilinogen Qn (U) [id number] {John'U}/dL Normal 0.0 - 1.0 EU/dL [facility] UA Auto SS WBC Auto Ql (U) Trace *ABN* (02/24/23 2:06 AM) Invalid Interpretation Code Negative [facility] UA Auto SS WBC casts LM.LPF (Urine sed) [#/Area] 4-10 (02/24/23 2:06 AM) Normal [facility] UA Auto SS WBC LM.HPF (Urine sed) [#/Area] 0-5 /HPF Normal 0-5/HPF [facility] UA Auto SS Covid-19 PCR (CVDTBH)on 01-17 SARS-CoV-2 (COVID-19) RNA OSVALDO+probe Ql (Unsp spec) Not detected Normal NOT DETECTED [facility] Comment on above: Result Comment: This test is not yet approved or cleared by the [place] FDA. When there are no FDA-approved or cleared tests available, and other criteria are met, FDA can make tests available under an emergency access mechanism called an Emergency Use Authorization (EUA). The EUA for this test is supported by the [place] of Health and Human Service's (HHS's) declaration [...] SARS-CoV-2. Performed By: #### C VDTB #### [facility] [address] [place] [address] Dr. Win Ardon SYMPTOMATIC COVID-19 ANTIGEN on 02-14-2023 EUA Statement SEE BELOW Normal [facility] [...] sooner. Performed By: #### C VDAGS #### [facility] [address] [place], [place] [address] Dr. Win Ardon SARS-CoV-2 (COVID-19) RNA OSVALDO+probe Ql (Unsp spec) Negative Normal NEGATIVE [facility] Comment on above: Performed By: #### C VDAGS #### [facility] [address] [place], [place] [address] Dr. Win Ardon XR KNEE RT 4V [...] MIKAEL GUZMAN Date: 2022-10-05 19:58 Normal [facility] Creatinine (Bld) [Mass/Vol]O rdered By: Ese Tan on 02-18-2022 Creatinine [Mass/Vol] 0.8 mg/dL 0.6-1.3 [facility] Comment on above: ER/ESD physician is notified/shown all ISTAT results.Critical values may be confirmed by laboratory testing ifdeemed necessary by ER attending doctor. No Panel InformationOrdered By: Ese Tan on 02-18-2022 POC Estimated GFR > 60 [facility] Comment on above: GFR estimated refere nce range: According to KDOQI guidelines, <60 ml/min/1.73m2 is sufficient to diagnose a patient with chronic kidney disease. POC Estimated GFR Non- Amer > 60 [facility] Cardiovascular Lab Reporton 03-22-2021 Cardiovascular Lab Report [facility] MR #: [id number] Department of Physician: Radha Carter M.D. Division of Service Date: 03/21/2021 Cardiology Birthdate: 1955 Adult Cardiovascular Room #: [facility] [address] [facility] [place] [address] Cardiovascular Laboratory Report FINAL IMPRESSIONS: 1. 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 2. Patent stent in the second diagonal branch of the left anterior descending coronary artery with [id number]-vh-[id number] in-stent restenosis. 3. Otherwise, nonobstructive coronary arteries [...] bilateral selective coronary angiography, placement of a 6-Libyan MynxGrip closure device. METHODS: After risks, benefits, and alternatives were explained, written informed consent was obtained. The patient was prepped and draped in the usual sterile fashion over the right groin. Using 1% lidocaine solution, local infiltration anesthesia was achieved. Using a modified Seldinger technique, a micropuncture kit, an ultrasound guidance access to the right common femoral vein and artery was obtained. A 6-Libyan x 11 cm sheath were placed in each. Limited femoral angiography was performed via the micropuncture kit prior to upsizing through the 6-Libyan sheath in the artery. A Cazares catheter [...] the procedure. All catheters were removed. A 6-Libyan MynxGrip closure device was deployed per protocol [...] Pardo M.D. Date Trans: 03/22/2021 05:11 Sean/yoel [id number] cc: Alexia Miranda, MSN, PRESIDENT [employer] Department Of Surgery [place] [address] [facility] [address] Robin Ponce M.D. [address] [id number] [facility] [place] [facility] [place] [address] Normal [facility] Basic Metab w/rfx MGon 09-01 (cont.) Normal [facility] Comment on above: Result Comment: Aver age GFR for 60-69 years old: 85 mL/min/1.73sq m Chronic Kidney Disease: <60 mL/min/1.73sq m Kidney failure: <15 mL/min/1.73sq m eGFR calculated using average adult body mass. Additional eGFR calculator available at: http://www.[employer]/multiple_crcl_2012.htm Performed By: #### E RTPF #### [address] [address] Calender Runner: Dheeraj Garcia MD Anion gap [Moles/Vol] 13 mmol/L Normal 9-17 [facility] Comment on above: Performed By: #### E RTPF #### [address] [address] Calender Runner: Dheeraj Garcia MD Calcium [Mass/Vol] 8.8 mg/dL Normal 8.6-10.4 [facility] Comment on above: Performed By: #### E RTPF #### [address] [address] Calender Runner: Dheeraj Garcia MD Chloride [Moles/Vol] 106 mmol/L Normal 98-107 [facility] Comment on above: Performed By: #### E RTPF #### [address] [address] Calender Runner: Dheeraj Garcia MD CO2 [Moles/Vol] 21 mmol/L Normal 20-31 [facility] Comment on above: Performed By: #### E RTPF #### [address] [address] Calender Runner: Dheeraj Garcia MD Creatinine [Mass/Vol] 0.53 mg/dL Normal 0.50-0.90 [facility] Comment on above: Performed By: #### E RTPF #### [address] [address] Calender Runner: Dheeraj Garcia MD GFR, Amer >60 Normal >60 [facility] Comment on above: Performed By: #### E RTPF #### [address] [address] Calender Runner: Dheeraj Garcia MD GFR,non Amer >60 Normal >60 [facility] Comment on above: Performed By: #### E RTPF #### [address] [address] Calender Runner: Dheeraj Garcia MD Glucose [Mass/Vol] 169 mg/dL High 70-99 [facility] Comment on above: Performed By: #### E RTPF #### [address] [address] Calender Runner: Dheeraj Garcia MD Potassium [Moles/Vol] 4.0 mmol/L Normal 3.7-5.3 [facility] Comment on above: Performed By: #### E RTPF #### [address] [address] Calender Runner: Dheeraj Garcia MD Sodium [Moles/Vol] 140 mmol/L Normal 135-144 [facility] Comment on above: Performed By: #### E RTPF #### [address] [address] Calender Runner: Dheeraj Garcia MD Urea nitrogen [Mass/Vol] 10 mg/dL Normal 8-23 [facility] Comment on above: Performed By: #### E RTPF #### [address] [address] Calender Runner: Dheeraj Garcia MD BUN/CRE Ratio NOT REPORTED Normal 9-20 [facility] Comment on above: Performed By: #### E RTPF #### [address] [address] Calender Runner: Dheeraj Garcia MD Staging: NOT REPORTED Normal [facility] Comment on above: Performed By: #### E RTPF #### [facility] [address] [id number] Calender Runner: Dheeraj Garcia MD Basic Metabolic Panel w/ Ref martín to MGon 09-01-2020 Anion gap [Moles/Vol] 13 mmol/L 9 - 17 mmol/L [place] Bun/Cre Ratio NOT REPORTED [place] Calcium [Mass/Vol] 8.8 mg/dL 8.6 - 10. 4 mg/dL [place] Chloride [Moles/Vol] 106 mmol/L 98 - 10 7 mmol/L [place] CO2 [Moles/Vol] 21 mmol/L 20 - 31 mmol/L [place] Creatinine [Mass/Vol] 0.53 mg/dL 0.5 - 0.9 mg/dL [place] GFR >60 >60 mL/min [place] GFR Non- >60 >60 mL/min [place] GFR/1.73 sq M predicted among non-blacks MDRD (S/P/Bld) [Vol rate/Area] [place] Comment on above: Average GFR for 60-6 9 years old: 85 mL/min/1.73sq m Chronic Kidney Disease: <60 mL/min/1.73sq m Kidney failure: <15 mL/min/1.73sq m eGFR calculated using average adult body mass. Additional eGFR calculator available at: http://www.[employer]/multiple_crcl_2012.htm GFR/1.73 sq M predicted among non-blacks MDRD (S/P/Bld) [Vol rate/Area] NOT REPORTED [place] Glucose [Mass/Vol] 169 mg/dL High 70 - 99 mg/dL [place] Interpretation and review of laboratory results Abnormal [place] Potassium [Moles/Vol] 4.0 mmol/L 3.7 - 5.3 mmol/L [place] Sodium [Moles/Vol] 140 mmol/L 135 - 144 mmol/L [place] Urea nitrogen [Mass/Vol] 10 mg/dL 8 - 23 mg/dL [place] CBC auto differentialon 08-17 Basophils (Bld) [#/Vol] 0.10 10*3/uL [place] Basophils/100 WBC (Bld) 1 % 0 - 2 % [place] Differential Type NOT REPORTED [place] Eosinophils (Bld) [#/Vol] 0.25 10*3/uL [place] Eosinophils/100 WBC (Bld) 3 % 1 - 4 % [place] Erythrocyte distribution width (RBC) [Ratio] 14.0 % 11.8 - 14.4 % [place] Hematocrit (Bld) [Volume fraction] 40.7 % 36.3 - 47.1 % [place] Hemoglobin (Bld) [Mass/Vol] 12.7 g/dL 11.9 - 15.1 g/dL [place] Immature granulocytes (Bld) [#/Vol] 0.06 10*3/uL [place] Immature granulocytes (Bld) [#/Vol] 1 % High 0 [place] Interpretation and review of laboratory results Abnormal [place] Lymphocytes (Bld) [#/Vol] 2.12 10*3/uL [place] Lymphocytes/100 WBC (Bld) 23 % Low 24 - 43 % [place] MCH (RBC) [Entitic mass] 28.1 pg 25.2 - 33.5 pg [place] MCHC (RBC) [Mass/Vol] 31.2 g/dL 28.4 - 34.8 g/dL [place] MCV (RBC) [Entitic vol] 90.0 fL 82.6 - 102.9 fL [place] Monocytes (Bld) [#/Vol] 0.68 10*3/uL [place] Monocytes/100 WBC (Bld) 7 % 3 - 12 % [place] Platelet mean volume (Bld) [Entitic vol] 10.6 fL 8.1 - 13.5 fL [place] Platelets (Bld) [#/Vol] NOT REPORTED [place] Platelets (Bld) [#/Vol] 251 10*3/uL [place] RBC (Bld) [#/Vol] 4.52 10*6/uL 3.95 - 5.11 m/uL [place] RBC morphology finding Nom (Bld) NOT REPORTED [place] Segmented neutrophils/100 WBC (Bld) 65 % 36 - 65 % [place] Segs Absolute 6.18 [place] WBC (Bld) [#/Vol] 0.0 10*3/uL 0.0 per 100 WBC [place] WBC (Bld) [#/Vol] 9.4 10*3/uL [place] WBC Morphology NOT REPORTED [place] CBC with Diffon 09-01-2020 Abs. Basophil 0.10 k/uL Normal 0.00-0.20 [facility] Comment on above: Performed By: #### C DP, HCG, ALCB, BMPX, LIPR, GLYHGB #### [facility] [address] [place], [place] [id number] Calender Runner: Dheeraj Garcia MD Abs.Imm.Granulocyte 0.06 k/uL Normal 0.00-0.30 [facility] Comment on above: Performed By: #### C DP, HCG, ALCB, BMPX, LIPR, GLYHGB #### [facility] [address] [place] [phone] Calender Runner: Dheeraj Garcia MD Abs.Neutrophil (Seg) 6.18 k/uL Normal 1.50-8.10 [facility] Comment on above: Performed By: #### C DP, HCG, ALCB, BMPX, LIPR, GLYHGB #### [facility] [address] [place] [phone] Calender Runner: Dheeraj Garcia MD Basophils/100 WBC (Bld) 1 % Normal 0-2 [facility] Comment on above: Performed By: #### C DP, HCG, ALCB, BMPX, LIPR, GLYHGB #### [address] [address] Calender Runner: Dheeraj Garcia MD Eosinophils (Bld) [#/Vol] 0.25 10*3/uL Normal 0.00-0.44 [facility] Comment on above: Performed By: #### C DP, HCG, ALCB, BMPX, LIPR, GLYHGB #### [place] [address] Calender Runner: Dheeraj Garcia MD Eosinophils/100 WBC (Bld) 3 % Normal 1-4 [facility] Comment on above: Performed By: #### C DP, HCG, ALCB, BMPX, LIPR, GLYHGB #### [place] [address] Calender Runner: Dheeraj Garcia MD Erythrocyte distribution width (RBC) [Ratio] 14.0 % Normal 11.8-14.4 [facility] Comment on above: Performed By: #### C DP, HCG, ALCB, BMPX, LIPR, GLYHGB #### [place] [address] Calender Runner: Dheeraj Garcia MD Hematocrit (Bld) [Volume fraction] 40.7 % Normal 36.3-47.1 [facility] Comment on above: Performed By: #### C DP, HCG, ALCB, BMPX, LIPR, GLYHGB #### [facility] [address] [place] [address] Calender Runner: Dheeraj Garcia MD Hemoglobin (Bld) [Mass/Vol] 12.7 g/dL Normal 11.9-15.1 [facility] Comment on above: Performed By: #### C DP, HCG, ALCB, BMPX, LIPR, GLYHGB #### [address] [address] Calender Runner: Dheeraj Garcia MD Immature granulocytes (Bld) [#/Vol] 1 % High 0 [facility] Comment on above: Performed By: #### C DP, HCG, ALCB, BMPX, LIPR, GLYHGB #### [address] [address] Calender Runner: Dheeraj Garcia MD Lymphocytes (Bld) [#/Vol] 2.12 10*3/uL Normal 1.10-3.70 [facility] Comment on above: Performed By: #### C DP, HCG, ALCB, BMPX, LIPR, GLYHGB #### [address] [address] Calender Runner: Dheeraj Garcia MD Lymphocytes/100 WBC (Bld) 23 % Low 24-43 [facility] Comment on above: Performed By: #### C DP, HCG, ALCB, BMPX, LIPR, GLYHGB #### [address] [address] Calender Runner: Dheeraj Garcia MD MCH (RBC) [Entitic mass] 28.1 pg Normal 25.2-33.5 [facility] Comment on above: Performed By: #### C DP, HCG, ALCB, BMPX, LIPR, GLYHGB #### [facility] [address] [place] [id number] Calender Runner: Dheeraj Garcia MD MCHC (RBC) [Mass/Vol] 31.2 g/dL Normal 28.4-34.8 [facility] Comment on above: Performed By: #### C DP, HCG, ALCB, BMPX, LIPR, GLYHGB #### [facility] [address] [place] [phone] Calender Runner: Dheeraj Garcia MD MCV (RBC) [Entitic vol] 90.0 fL Normal 82.6-102.9 [facility] Comment on above: Performed By: #### C DP, HCG, ALCB, BMPX, LIPR, GLYHGB #### [address] [address] Calender Runner: Dheeraj Garcia MD Monocytes (Bld) [#/Vol] 0.68 10*3/uL Normal 0.10-1.20 [facility] Comment on above: Performed By: #### C DP, HCG, ALCB, BMPX, LIPR, GLYHGB #### [address] [address] Calender Runner: Dheeraj Garcia MD Monocytes/100 WBC (Bld) 7 % Normal 3-12 [facility] Comment on above: Performed By: #### C DP, HCG, ALCB, BMPX, LIPR, GLYHGB #### [place] [address] Calender Runner: Dheeraj Garcia MD Neutrophil (Seg) 65 % Normal 36-65 [facility] Comment on above: Performed By: #### C DP, HCG, ALCB, BMPX, LIPR, GLYHGB #### [address] [address] Calender Runner: Dheeraj Garcia MD NRBC Automated 0.0 per 100 WBC Normal 0.0 [facility] Comment on above: Performed By: #### C DP, HCG, ALCB, BMPX, LIPR, GLYHGB #### [address] [address] Calender Runner: Dheeraj Garcia MD Platelet mean volume (Bld) [Entitic vol] 10.6 fL Normal 8.1-13.5 [facility] Comment on above: Performed By: #### C DP, HCG, ALCB, BMPX, LIPR, GLYHGB #### [address] [address] Calender Runner: Dheeraj Garcia MD Platelets (Bld) [#/Vol] 251 10*3/uL Normal 138-453 [facility] Comment on above: Performed By: #### C DP, HCG, ALCB, BMPX, LIPR, GLYHGB #### [address] [address] Calender Runner: Dheeraj Garcia MD RBC (Bld) [#/Vol] 4.52 10*6/uL Normal 3.95-5.11 [facility] Comment on above: Performed By: #### C DP, HCG, ALCB, BMPX, LIPR, GLYHGB #### [address] [address] Calender Runner: Dheeraj Garcia MD WBC (Bld) [#/Vol] 9.4 10*3/uL Normal 3.5-11.3 [facility] Comment on above: Performed By: #### C DP, HCG, ALCB, BMPX, LIPR, GLYHGB #### [address] [address] Calender Runner: Dheeraj Garcia MD Auto Diff Performed NOT REPORTED Normal [facility] Comment on above: Performed By: #### C DP, HCG, ALCB, BMPX, LIPR, GLYHGB #### [address] [address] Calender Runner: Dheeraj Garcia MD Platelets (Bld) [#/Vol] NOT REPORTED Normal [facility] Comment on above: Performed By: #### C DP, HCG, ALCB, BMPX, LIPR, GLYHGB #### [address] [address] Calender Runner: Dheeraj Garcia MD RBC morphology finding Nom (Bld) NOT REPORTED Normal [facility] Comment on above: Performed By: #### C DP, HCG, ALCB, BMPX, LIPR, GLYHGB #### [facility] [address] [place], [place] [phone] Calender Runner: Dheeraj Garcia MD WBC Morphology NOT REPORTED Normal [facility] Comment on above: Performed By: #### C DP, HCG, ALCB, BMPX, LIPR, GLYHGB #### [facility] [address] [place] [address] Calender Runner: Dheeraj Garcia MD Echo Completeon 09-01-2020 [place], [facility] Incoming C ardio Results From Cpacs/Ge - 09/01/2020 3:37 PM EDT Transthoracic Echocardiography Report (TTE) Patient Name DENDINGER Date of Study 09/01/2020 JESSI Date of 1955 Gender Female Age 64 year(s) Race Room Number 0234 Height: 65 inch, 165.1 cm Corporate ID [id number] Weight: 232 pounds, 105.2 kg # Patient Acct [id number] BSA: 2.11 m^2 BMI: 38.61 # kg/m^2 MR # [id number] Continuity Manager Pérez Lao Interpreting Physician Abundio Aguilar Fellow Referring Nurse Practitioner Interpreting Referring Physician Moisés Rodríguez Fellow Type of Study TTE procedure:2D Echocardiogram, M-Mode, Doppler, Color Doppler, Bubble Study. Procedure Date Date: 09/01/2020 Start: 07:38 AM Study Location: [facility] Technical Quality: Fair visualization Comments:Syncope, R/o [...] Wall E' velocity:0.07 m/s Lateral Wall E/E':8.8 [facility], [place] Transthoracic Echocardiography Report (TTE) Patient Name DENDINGER Date of Study 09/01/2020 JESSI Date of 1955 Gender Female Age 64 year(s) Race Room Number 0234 Height: 65 inch, 165.1 cm Corporate ID [id number] Weight: 232 pounds, 105.2 kg # Patient Acct [id number] BSA: 2.11 m^2 BMI: 38.61 # kg/m^2 MR # [id number] Continuity Manager Préez Lao Interpreting Physician Abundio Aguilar Fellow Referring Nurse Practitioner Interpreting Referring Physician Moisés Rodríguez Fellow Type of Study TTE procedure:2D Echocardiogram, M-Mode, Doppler, Color Doppler, Bubble Study. Procedure Date Date: 09/01/2020 Start: 07:38 AM Study Location: [facility] Technical Quality: Fair visualization Comments:Syncope, R/o [...] Wall E' velocity:0.07 m/s Lateral Wall E/E':8.8 [place] Ethanolon 09-01-2020 Ethanol [Mass/Vol] mg/dL <10 mg/dL [place] Ethanol percent <0.010 <0.010 % [place] Ethanol Alcoholon 09-01-2020 Ethanol [Mass/Vol] mg/dL Normal <10 [facility] Comment on above: Performed By: #### E RTPF #### [address] [id number] Calender Runner: Dheeraj Garcia MD Ethanol percent <0.010 Normal <0.010 [facility] Comment on above: Performed By: #### E RTPF #### [address] [id number] Calender Runner: Dheeraj Garcia MD HCG Qualitative, Serumon hCG Qual Negative NEGATIVE [place], [place] Comment on above: Specimens with hCG l evels near the threshold of the test (25 mIU/mL) may give a negative or indeterminate result. In such cases, another test should be performed with a new specimen in 48-72 hours. If early is suspected clinically in this setting, correlation with quantitative serum b-hCG level is suggested. [facility] has confirmed the use of plasma for this test. This has not been cleared or approved by the U.S. Food and Drug Administration. The FDA has determined that such clearance is not necessary. HCG Screen, Bloodon 09-01-20 20 HCG Qn Negative Normal NEG [facility] Comment on above: Result [...] is suggested. [facility] has confirmed the use of plasma for this test. This has not been cleared or approved by the U.S. Food and Drug Administration. The FDA has determined that such clearance is not necessary. Performed By: #### E RTPF #### [facility] [address] [place], [place] [id number] Calender Runner: Dheeraj Garcia MD Hematologyon 09-01-2020 WBC (Bld) [#/Vol] DUPLICATE ORDER per 100 WBC [place], [place] Hemoglobin A1Con 09-01-2020 HbA1c (Bld) [Mass fraction] 151 mg/dL Normal [facility] Comment on above: Result Comment: The ADA and AACC recommend providing the estimated average glucose result to permit better patient understanding of their HBA1c result. Performed By: #### E RTPF #### [address] [id number] Calender Runner: Dheeraj Garcia MD HbA1c (Bld) [Mass fraction] 6.9 % High 4.0-6.0 [facility] Comment on above: Performed By: #### E RTPF #### [facility] [address] [place], [place] [id number] Calender Runner: Dheeraj Garcia MD Hemoglobin A1con 09-01-2020 Glucose [Mass/Vol] 151 mg/dL [place] Comment on above: The ADA and AACC rec ommend providing the estimated average glucose result to permit better patient understanding of their HBA1c result. HbA1c (Bld) [Mass fraction] 6.9 % High 4 - 6 % [place] Interpretation and review of laboratory results Abnormal [place] Lipid Profileon 09-01-2020 Cholesterol [Mass/Vol] 123 mg/dL Normal <200 [facility] Comment on above: Result Comment: Cholesterol Guidelines: <200 Desirable 200-240 Borderline >240 Undesirable Performed By: #### E RTPF #### [address] [address] Calender Runner: Dheeraj Garcia MD Cholesterol in HDL [Mass/Vol] 43 mg/dL Normal >40 [facility] Comment on above: Result Comment: HDL Guidelines: <40 Undesirable 40-59 Borderline >59 Desirable Performed By: #### E RTPF #### [address] [address] Calender Runner: Dheeraj Garcia MD Cholesterol in LDL [Mass/Vol] 50 mg/dL Normal 0-130 [facility] Comment on above: Result Comment: LDL Guidelines: <100 Desirable 100-129 Near to/above Desirable 130-159 Borderline >159 Undesirable Direct (measured) LDL and calculated LDL are not interchangeable tests. Performed By: #### E RTPF #### [address] [address] Calender Runner: Dheeraj Garcia MD Cholesterol.total/Ch olesterol in HDL [Mass ratio] 2.9 {ratio} Normal <5 [facility] Comment on above: Performed By: #### E RTPF #### [facility] [address] [place] [address] Calender Runner: Dheeraj Garcia MD Triglyceride [Mass/Vol] 149 mg/dL Normal <150 [facility] Comment on above: Result Comment: Triglyceride Guidelines: <150 Desirable 150-199 Borderline 200-499 High >499 Very high Based on AHA Guidelines for fasting triglyceride, August 2012. Performed By: #### E RTPF #### [facility] [address] [place] [address] Calender Runner: Dheeraj Garcia MD Cholesterol in VLDL [Mass/Vol] NOT REPORTED Normal 1-30 [facility] Comment on above: Performed By: #### E RTPF #### [facility] [address] [place], [place] [id number] Calender Runner: Dheeraj Garcia MD Lipid panel - fastingon 08-17 Cholesterol [Mass/Vol] 123 mg/dL <200 [place] Comment on above: Cholesterol Guidelines: <200 Desirable 200-240 Borderline >240 Undesirable Cholesterol in HDL [Mass/Vol] 43 mg/dL >40 [place] Comment on above: HDL Guidelines: <40 Undesirable 40-59 Borderline >59 Desirable Cholesterol in LDL [Mass/Vol] 50 mg/dL 0 - 130 mg/dL [place] Comment on above: LDL Guidelines: <100 Desirable 100-129 Near to/above Desirable 130-159 Borderline >159 Undesirable Direct (measured) LDL and calculated LDL are not interchangeable tests. Cholesterol in VLDL [Mass/Vol] NOT REPORTED 1 - 30 mg/dL [place] Cholesterol.total/Ch olesterol in HDL [Mass ratio] 2.9 {ratio} <5 [place] Triglyceride [Mass/Vol] 149 mg/dL <150 [place] Comment on above: Triglyceride Guidelines: <150 Desirable 150-199 Borderline 200-499 High >499 Very high Based on AHA Guidelines for fasting triglyceride, August 2012. Metabolic Panelon 09-01-2020 GFR/1.73 sq M predicted among non-blacks MDRD (S/P/Bld) [Vol rate/Area] DUPLICATE ORDER [place] TRAUMA PANELon 09-01-2020 Hubert Test NOT REPORTED [place] Anion gap [Moles/Vol] DUPLICATE ORDER mmol/L [place] aPTT Coag (Bld) [Time] 27.5 s [place] Comment on above: IV Heparin Therapy Range: 48.6-77.8 aPTT Coag (Bld) [Time] 37.0 s [place] Blood Bank Specimen BILL FOR SERVICES PERFORMED [place] Carboxyhemoglobin 0.6 % 0 - 5 % [place] Comment on above: Reference Range: Non-Smokers 0-2% Average Smoker 2-4% Heavy Smoker <10% Chloride [Moles/Vol] DUPLICATE ORDER mmol/L [place] CO2 [Moles/Vol] DUPLICATE ORDER mmol/L [place] Creatinine [Mass/Vol] DUPLICATE ORDER mg/dL [place] Erythrocyte distribution width (RBC) [Ratio] DUPLICATE ORDER % [place] Ethanol [Mass/Vol] Order moved to [facility] draw time. [id number] mg/dL [place] Ethanol percent Order moved to [facility] draw time. [id number] % [place] FIO2 UNKNOWN [place] GFR DUPLICATE ORDER >60 mL/min [place] GFR Non- DUPLICATE ORDER >60 mL/min [place] Glucose [Mass/Vol] DUPLICATE ORDER mg/dL [place] hCG Qual Order moved to [facility] draw time. [id number] NEGATIVE [place] HCO3, Venous 27.6 mmol/L 24 - 30 mmol/L [place] Hematocrit (Bld) [Volume fraction] DUPLICATE ORDER % [place] Hemoglobin (Bld) [Mass/Vol] DUPLICATE ORDER g/dL [place] INR Coag (PPP) [Relative time] 1.0 {INR} [place] Comment on above: Therapeutic Range: Moderate Anticoagulant Intensity: INR = 2.0-3.0 High Anticoagulant Intensity: INR = 2.5-3.5 Interpretation and review of laboratory results Abnormal [place] MCH (RBC) [Entitic mass] DUPLICATE ORDER pg [place] MCHC (RBC) [Mass/Vol] DUPLICATE ORDER g/dL [place] MCV (RBC) [Entitic vol] DUPLICATE ORDER fL [place] Methemoglobin NOT REPORTED 0 - 1.5 % [place] Mode NOT REPORTED [place] Negative Base Excess, Christo NOT REPORTED 0 - 2 mmol/L [place] NOTIFICATION NOT [place]PORTED [place] NOTIFICATION TIME NOT REPORTED [place] O2 Device/Flow/% NOT REPORTED [place] Oxygen saturation in Blood 43.1 % Low 60 - 85 % [place] Oxyhemoglobin NOT REPORTED 95 - 98 % [place] pCO2, Christo 48.8 [place] pCO2, Christo, Temp Adj NOT REPORTED [place] Peep/Cpap NOT REPORTED [place] pH, Christo 7.371 [place] pH, Christo, Temp Adj NOT REPORTED [place] Platelet mean volume (Bld) [Entitic vol] DUPLICATE ORDER fL [place] Platelets (Bld) [#/Vol] DUPLICATE ORDER k/uL [place] pO2, Christo 23.6 Low [place] pO2, Christo, Temp Adj NOT REPORTED [place] Positive Base Excess, Christo 2.1 mmol/L High 0 - 2 mmol/L [place] Potassium [Moles/Vol] DUPLICATE ORDER mmol/L [place] PSV NOT REPORTED [place] PT Coag (PPP) [Time] 10.4 s [place] Pt. Position NOT REPORTED [place] RBC (Bld) [#/Vol] DUPLICATE ORDER m/uL [place] Sample Site NOT REPORTED [place] Set Rate NOT REPORTED [place] Sodium [Moles/Vol] DUPLICATE ORDER mmol/L [place] Text for Respiratory NOT REPORTED [place] Total Hb NOT REPORTED 12 - 16 g/dl [place] Total Rate NOT REPORTED [place] Urea nitrogen [Mass/Vol] DUPLICATE ORDER mg/dL [place] NOT REPORTED [place] Trauma Profileon 09-01-2020 aPTT Coag (Bld) [Time] 27.5 s Normal 20.5-30.5 [facility] Comment on above: Result Comment: IV Heparin Therapy Range: 48.6-77.8 Performed By: #### E RTPF #### [facility] [address] [place] [address] Calender Runner: Dheeraj Garcia MD INR Coag (PPP) [Relative time] 1.0 {INR} Normal [facility] Comment on above: Result Comment: Therapeutic Range: Moderate Anticoagulant Intensity: INR = 2.0-3.0 High Anticoagulant Intensity: INR = 2.5-3.5 Performed By: #### E RTPF #### [address] [address] Calender Runner: Dheeraj Garcia MD PT Coag (PPP) [Time] 10.4 s Normal 9.0-12.0 [facility] Comment on above: Performed By: #### E RTPF #### [address] [address] Calender Runner: Dheeraj Garcia MD Body Temp. 37.0 [facility] Comment on above: Performed By: #### E RTPF #### [address] [address] Calender Runner: Dheeraj Garcia MD Carboxy Hgb 0.6 % Normal 0-5 [facility] Comment on above: Result Comment: Reference Range: Non-Smokers 0-2% Average Smoker 2-4% Heavy Smoker <10% Performed By: #### E RTPF #### [address] [address] Calender Runner: Dheeraj Garcia MD FIO2 UNKNOWN Normal [facility] Comment on above: Performed By: #### E RTPF #### [address] [address] Calender Runner: Dheeraj Garcia MD HCO3 (Bld) [Moles/Vol] 27.6 mmol/L Normal 24-30 [facility] Comment on above: Performed By: #### E RTPF #### [address] [address] Calender Runner: Dheeraj Garcia MD Oxygen (Bld) [Partial pressure] 23.6 mm[Hg] Low 30-50 [facility] Comment on above: Performed By: #### E RTPF #### [address] [address] Calender Runner: Dheeraj Garcia MD Oxygen saturation in Blood 43.1 % Low 60.0-85.0 [facility] Comment on above: Performed By: #### E RTPF #### [address] [address] Calender Runner: Dheeraj Garcia MD pCO2 48.8 Normal 39-55 [facility] Comment on above: Performed By: #### E RTPF #### [address] [address] Calender Runner: Dheeraj Garcia MD pH (Bld) 7.371 [pH] Normal 7.320-7.42 0 [facility] Comment on above: Performed By: #### E RTPF #### [address] [address] Calender Runner: Dheeraj Garcia MD Positive Base Excess 2.1 mmol/L High 0.0-2.0 [facility] Comment on above: Performed By: #### E RTPF #### [address] [address] Calender Runner: Dheeraj Garcia MD Hubert Test NOT REPORTED Normal [facility] Comment on above: Performed By: #### E RTPF #### [address] [address] Calender Runner: Dheeraj Garcia MD Methemoglobin NOT REPORTED Normal 0.0-1.5 [facility] Comment on above: Performed By: #### E RTPF #### [address] [address] Calender Runner: Dheeraj Garcia MD Mode NOT REPORTED Normal [facility] Comment on above: Performed By: #### E RTPF #### [address] [address] Calender Runner: Dheeraj Garcia MD Negative Base Excess NOT REPORTED Normal 0.0-2.0 [facility] Comment on above: Performed By: #### E RTPF #### [address] [address] Calender Runner: Dheeraj Garcia MD Notification Time NOT REPORTED Normal [facility] Comment on above: Performed By: #### E RTPF #### [address] [address] Calender Runner: Dheeraj Garcia MD Notification: NOT REPORTED Normal [facility] Comment on above: Performed By: #### E RTPF #### [address] [address] Calender Runner: Dheeraj Garcia MD O2 Device/Flow/% NOT REPORTED Normal [facility] Comment on above: Performed By: #### E RTPF #### [address] [address] Calender Runner: Dheeraj Garcia MD Oxyhemoglobin NOT REPORTED Normal 95.0-98.0 [facility] Comment on above: Performed By: #### E RTPF #### [facility] [address] [place] [address] Calender Runner: Dheeraj Garcia MD Pco2 Adj'd for Temp. NOT REPORTED Normal 39-55 [facility] Comment on above: Performed By: #### E RTPF #### [address] [address] Calender Runner: Dheeraj Garcia MD PEEP/CPAP NOT REPORTED Normal [facility] Comment on above: Performed By: #### E RTPF #### [address] [address] Calender Runner: Dheeraj Garcia MD pH Adjst'd for Temp. NOT REPORTED Normal 7.320-7 .42 0 [facility] Comment on above: Performed By: #### E RTPF #### [address] [address] Calender Runner: Dheeraj Garcia MD pO2 Adj'd for Temp. NOT REPORTED Normal 30-50 [facility] Comment on above: Performed By: #### E RTPF #### [address] [address] Calender Runner: Dheeraj Garcia MD PSV NOT REPORTED Normal [facility] Comment on above: Performed By: #### E RTPF #### [address] [address] Calender Runner: Dheeraj Garcia MD Pt. Position NOT REPORTED Normal [facility] Comment on above: Performed By: #### E RTPF #### [address] [address] Calender Runner: Dheeraj Garcia MD Set Rate NOT REPORTED Normal [facility] Comment on above: Performed By: #### E RTPF #### [address] [address] Calender Runner: Dheeraj Garcia MD Site Drawn NOT REPORTED Normal [facility] Comment on above: Performed By: #### E RTPF #### [address] [address] Calender Runner: Dheeraj Garcia MD Text for Respiratory NOT REPORTED Normal [facility] Comment on above: Performed By: #### E RTPF #### [facility] [place] [address] Calender Runner: Dheeraj Garcia MD Total Hb NOT REPORTED Normal 12.0-16.0 [facility] Comment on above: Performed By: #### E RTPF #### [address] [address] Calender Runner: Dheeraj Garcia MD Total Rate NOT REPORTED Normal [facility] Comment on above: Performed By: #### E RTPF #### [address] [address] Calender Runner: Dheeraj Garcia MD [place] NOT REPORTED Normal [facility] Comment on above: Performed By: #### E RTPF #### [address] [address] Calender Runner: Dheeraj Garcia MD Blood Bank BILL FOR SERVICES PERFORMED Normal [facility] Comment on above: Performed By: #### E RTPF #### [address] [address] Calender Runner: Dheeraj Garcia MD CT CERVICAL SPINE WO [...] Krishna Martell DO 08/30/20 Final result Normal [facility] CT CHEST ABDOMEN PELVIS W [...] Brenda Sheldon MD 08/30/20 Final result Normal [facility] CT LUMBAR SPINE TRAUMA RECON [...] Krishna Martell DO 08/30/20 Final result Normal [facility] CT THORACIC SPINE TRAUMA REC [...] Krishna Martell DO 08/30/20 Final result Normal [facility] CTA HEAD NECK W CONTRASTon [...] Dom Zhong MD 08/30/20 Final result Normal [facility] MRI LIMITED BRAINon 08-31-20 20 MRI [...] Hector Martinez MD 08/31/20 Final result Normal [facility] [place] Incoming R adiant Results From [employer] - 08/31/2020 11:56 AM EDT EXAMINATION: MRI [...] chronic microvascular disease without acute intracranial abnormality. [facility], [place] Minimal chronic microvascular disease without acute intracranial abnormality. [place] EXAMINATION: MRI OF THE BRAIN WITHOUT [...] The soft tissues demonstrate no acute abnormality. [place] Trauma Profileon 08-31-2020 Erythrocyte distribution width (RBC) [Ratio] 14.1 % Normal 11.8-14.4 [facility] Comment on above: Performed By: #### E RTPF #### [facility] [address] [place] [phone] Calender Runner: Dheeraj Garcia MD Hematocrit (Bld) [Volume fraction] 38.2 % Normal 36.3-47.1 [facility] Comment on above: Performed By: #### E RTPF #### [facility] [place] [address] Calender Runner: Dheeraj Garcia MD Hemoglobin (Bld) [Mass/Vol] 12.3 g/dL Normal 11.9-15.1 [facility] Comment on above: Performed By: #### E RTPF #### [facility] [address] [place] [phone] Calender Runner: Dheeraj Garcia MD MCH (RBC) [Entitic mass] 28.9 pg Normal 25.2-33.5 [facility] Comment on above: Performed By: #### E RTPF #### [address] [address] Calender Runner: Dheeraj Garcia MD MCHC (RBC) [Mass/Vol] 32.2 g/dL Normal 28.4-34.8 [facility] Comment on above: Performed By: #### E RTPF #### [address] [address] Calender Runner: Dheeraj Garcia MD MCV (RBC) [Entitic vol] 89.7 fL Normal 82.6-102.9 [facility] Comment on above: Performed By: #### E RTPF #### [address] [address] Calender Runner: Dheeraj Garcia MD NRBC Automated 0.0 per 100 WBC Normal 0.0 [facility] Comment on above: Performed By: #### E RTPF #### [address] [address] Calender Runner: Dheeraj Garcia MD Platelet mean volume (Bld) [Entitic vol] 10.6 fL Normal 8.1-13.5 [facility] Comment on above: Performed By: #### E RTPF #### [address] [address] Calender Runner: Dheeraj Garcia MD Platelets (Bld) [#/Vol] 268 10*3/uL Normal 138-453 [facility] Comment on above: Performed By: #### E RTPF #### [address] [address] Calender Runner: Dheeraj Garcia MD RBC (Bld) [#/Vol] 4.26 10*6/uL Normal 3.95-5.11 [facility] Comment on above: Performed By: #### E RTPF #### [address] [address] Calender Runner: Dheeraj Garcia MD WBC (Bld) [#/Vol] 8.7 10*3/uL Normal 3.5-11.3 [facility] Comment on above: Performed By: #### E RTPF #### [address] [address] Calender Runner: Dheeraj Garcia MD (cont.) [facility] Comment on above: Result Comment: Aver age GFR for 60-69 years old: 85 mL/min/1.73sq m Chronic Kidney Disease: <60 mL/min/1.73sq m Kidney failure: <15 mL/min/1.73sq m eGFR calculated using average adult body mass. Additional eGFR calculator available at: http://www.[employer]/multiple_crcl_2012.htm Performed By: #### E RTPF #### [address] [address] Calender Runner: Dheeraj Garcia MD Anion gap [Moles/Vol] 10 mmol/L Normal 9-17 [facility] Comment on above: Performed By: #### E RTPF #### [address] [address] Calender Runner: Dheeraj Garcia MD Chloride [Moles/Vol] 106 mmol/L Normal 98-107 [facility] Comment on above: Performed By: #### E RTPF #### [address] [address] Calender Runner: Dheeraj Garcia MD CO2 [Moles/Vol] 23 mmol/L Normal 20-31 [facility] Comment on above: Performed By: #### E RTPF #### [address] [place] [address] Calender Runner: Dheeraj Garcia MD Creatinine [Mass/Vol] 0.62 mg/dL Normal 0.50-0.90 [facility] Comment on above: Performed By: #### E RTPF #### [address] [address] Calender Runner: Dheeraj Garcia MD Ethanol [Mass/Vol] mg/dL Normal <10 [facility] Comment on above: Performed By: #### E RTPF #### [address] [address] Calender Runner: Dheeraj Garcia MD Ethanol percent <0.010 Normal <0.010 [facility] Comment on above: Performed By: #### E RTPF #### [address] [address] Calender Runner: Dheeraj Garcia MD GFR, Amer >60 Normal >60 [facility] Comment on above: Performed By: #### E RTPF #### [address] [address] Calender Runner: Dheeraj Garcia MD GFR,non Amer >60 Normal >60 [facility] Comment on above: Performed By: #### E RTPF #### [address] [address] Calender Runner: Dheeraj Garcia MD Glucose [Mass/Vol] 186 mg/dL High 70-99 [facility] Comment on above: Performed By: #### E RTPF #### [address] [address] Calender Runner: Dheeraj Garcia MD Potassium [Moles/Vol] 3.5 mmol/L Low 3.7-5.3 [facility] Comment on above: Performed By: #### E RTPF #### [address] [address] Calender Runner: Dheeraj Garcia MD Sodium [Moles/Vol] 139 mmol/L Normal 135-144 [facility] Comment on above: Performed By: #### E RTPF #### [address] [address] Calender Runner: Dheeraj Garcia MD Urea nitrogen [Mass/Vol] 11 mg/dL Normal 8-23 [facility] Comment on above: Performed By: #### E RTPF #### [address] [address] Calender Runner: Dheeraj Garcia MD aPTT Coag (Bld) [Time] 24.4 s Normal 20.5-30.5 [facility] Comment on above: Result Comment: IV Heparin Therapy Range: 48.6-77.8 Performed By: #### E RTPF #### [address] [address] Calender Runner: Dheeraj Garcia MD INR Coag (PPP) [Relative time] 1.0 {INR} Normal [facility] Comment on above: Result Comment: Therapeutic Range: Moderate Anticoagulant Intensity: INR = 2.0-3.0 High Anticoagulant Intensity: INR = 2.5-3.5 Performed By: #### E RTPF #### [address] [address] Calender Runner: Dheeraj Garcia MD PT Coag (PPP) [Time] 10.5 s Normal 9.0-12.0 [facility] Comment on above: Performed By: #### E RTPF #### [address] [address] Calender Runner: Dheeraj Garcia MD Body Temp. 37.0 Normal [facility] Comment on above: Performed By: #### E RTPF #### [address] [address] Calender Runner: Dheeraj Garcia MD Carboxy Hgb 2.2 % Normal 0-5 [facility] Comment on above: Result Comment: Reference Range: Non-Smokers 0-2% Average Smoker 2-4% Heavy Smoker <10% Performed By: #### E RTPF #### [address] [address] Calender Runner: Dheeraj Garcia MD FIO2 INFORMATION NOT PROVIDED Normal [facility] Comment on above: Performed By: #### E RTPF #### [address] [address] Calender Runner: Dheeraj Garcia MD HCO3 (Bld) [Moles/Vol] 23.6 mmol/L Low 24-30 [facility] Comment on above: Performed By: #### E RTPF #### [address] [address] Calender Runner: Dheeraj Garcia MD Negative Base Excess 0.8 mmol/L Normal 0.0-2.0 [facility] Comment on above: Performed By: #### E RTPF #### [address] [address] Calender Runner: Dheeraj Garcia MD Oxygen (Bld) [Partial pressure] 143.0 mm[Hg] High 30-50 [facility] Comment on above: Performed By: #### E RTPF #### [address] [address] Calender Runner: Dheeraj Garcia MD Oxygen saturation in Blood 98.6 % High 60.0-85.0 [facility] Comment on above: Performed By: #### E RTPF #### [address] [address] Calender Runner: Dheeraj Garcia MD pCO2 40.6 Normal 39-55 [facility] Comment on above: Performed By: #### E RTPF #### [facility] [address] [place] [address] Calender Runner: Dheeraj Garcia MD pH (Bld) 7.383 [pH] Normal 7.320-7.42 0 [facility] Comment on above: Performed By: #### E RTPF #### [facility] [address] [place] [address] Calender Runner: Dheeraj Garcia MD Blood Bank BILL FOR SERVICES PERFORMED Normal [facility] Comment on above: Performed By: #### E RTPF #### [address] [address] Calender Runner: Dheeraj Garcia MD Hubert Test NOT REPORTED Normal [facility] Comment on above: Performed By: #### E RTPF #### [address] [address] Calender Runner: Dheeraj Garcia MD Methemoglobin NOT REPORTED Normal 0.0-1.5 [facility] Comment on above: Performed By: #### E RTPF #### [address] [address] Calender Runner: Dheeraj Garcia MD Mode NOT REPORTED Normal [facility] Comment on above: Performed By: #### E RTPF #### [facility] [address] [place] [address] Calender Runner: Dheeraj Garcia MD Notification Time NOT REPORTED Normal [facility] Comment on above: Performed By: #### E RTPF #### [facility] [address] [place] [address] Calender Runner: Dheeraj Garcia MD Notification: NOT REPORTED Normal [facility] Comment on above: Performed By: #### E RTPF #### [address] [address] Calender Runner: Dheeraj Garcia MD O2 Device/Flow/% NOT REPORTED Normal [facility] Comment on above: Performed By: #### E RTPF #### [address] [id number] Calender Runner: Dheeraj Garcia MD Oxyhemoglobin NOT REPORTED Normal 95.0-98.0 [facility] Comment on above: Performed By: #### E RTPF #### [address] [address] Calender Runner: Dheeraj Garcia MD Pco2 Adj'd for Temp. NOT REPORTED Normal 39-55 [facility] Comment on above: Performed By: #### E RTPF #### [address] [address] Calender Runner: Dheeraj Garcia MD PEEP/CPAP NOT REPORTED Normal [facility] Comment on above: Performed By: #### E RTPF #### [address] [address] Calender Runner: Dheeraj Garcia MD pH Adjst'd for Temp. NOT REPORTED Normal 7.320-7 .42 0 [facility] Comment on above: Performed By: #### E RTPF #### [address] [address] Calender Runner: Dheeraj Garcia MD pO2 Adj'd for Temp. NOT REPORTED Normal 30-50 [facility] Comment on above: Performed By: #### E RTPF #### [address] [address] Calender Runner: Dheeraj Garcia MD Positive Base Excess NOT REPORTED Normal 0.0-2.0 [facility] Comment on above: Performed By: #### E RTPF #### [address] [address] Calender Runner: Dheeraj Garcia MD PSV NOT REPORTED Normal [facility] Comment on above: Performed By: #### E RTPF #### [address] [address] Calender Runner: Dheeraj Garcia MD Pt. Position NOT REPORTED Normal [facility] Comment on above: Performed By: #### E RTPF #### [address] [address] Calender Runner: Dheeraj Garcia MD Set Rate NOT REPORTED Normal [facility] Comment on above: Performed By: #### E RTPF #### [address] [address] Calender Runner: Dheeraj Garcia MD Site Drawn NOT REPORTED Normal [facility] Comment on above: Performed By: #### E RTPF #### [address] [address] Calender Runner: Dheeraj Garcia MD Staging: NOT REPORTED Normal [facility] Comment on above: Performed By: #### E RTPF #### [address] [address] Calender Runner: Dheeraj Garcia MD Text for Respiratory NOT REPORTED Normal [facility] Comment on above: Performed By: #### E RTPF #### [address] [address] Calender Runner: Dheeraj Garcia MD Total Hb NOT REPORTED Normal 12.0-16.0 [facility] Comment on above: Performed By: #### E RTPF #### [address] [address] Calender Runner: Dheeraj Garcia MD Total Rate NOT REPORTED Normal [facility] Comment on above: Performed By: #### E RTPF #### [facility] [address] [place] [address] Calender Runner: Dheeraj Garcia MD [place] NOT REPORTED Normal [facility] Comment on above: Performed By: #### E RTPF #### [facility] [address] [place] [address] Calender Runner: Dheeraj Garcia MD Type + Screenon 08-31-2020 Type + Screen Sample Expiration 09/02/2020,2359 Arm Band Number BE [id number] ABO/Rh(D) O POSITIVE Antibody Screen NEGATIVE Normal [facility] Comment on above: Performed By: #### T YS #### [address] [address] Calender Runner: Dheeraj Garcia MD XR SHOULDER LEFT (MIN [...] Delmis Adams MD 08/31/20 Final result Normal [facility] EXAMINATION: TWO XRA Y VIEWS OF THE LEFT SHOULDER 08/31/2020 8:25 am COMPARISON: None. HISTORY: ORDERING SYSTEM PROVIDED HISTORY: trauma TECHNOLOGIST PROVIDED HISTORY: trauma Reason for Exam: trauma Acuity: Acute Type of Exam: Initial FINDINGS: The bones and joints are unremarkable without definite fracture, dislocation, abnormal soft tissue calcification or bony destructive lesion [facility] [place] Unremarkable three v iew left shoulder series [place], [place] [employer] Incoming R adiant Results From [employer] [facility]acs - 08/31/2020 8:46 AM EDT EXAMINATION: TWO [...] IMPRESSION: Unremarkable three view left shoulder series [place] CT CERVICAL SPINE WO CONTRAS Ton 08-30-2020 No evidence of an ac elsie fracture or traumatic malalignment involving the cervical spine [place], [place] EXAMINATION: CT OF T HE CERVICAL [...] There is no prevertebral soft tissue swelling. [place] [facility] Incoming R adiant Results From [employer] - 08/30/2020 11:01 PM EDT EXAMINATION: CT [...] or traumatic malalignment involving the cervical spine [place] CHEST ABDOMEN PELVIS W CO [...] aorta. Bones/Soft Tissues: No acute osseous abnormality. [facility], [place] Incoming R adiant Results From [employer]/[facility] - 08/30/2020 11:25 PM EDT EXAMINATION: CT [...] could provide further information as clinically indicated. [place] 1. No acute or traum atic intrathoracic abnormality. 2. No acute or traumatic intra-abdominal abnormality. 3. Dilation of the main pulmonary artery, suggestive of pulmonary artery hypertension. 4. Hepatic steatosis. 5. 1.6 cm left upper pole renal lesion is indeterminate, possibly a cyst. Renal protocol CT or MRI could provide further information as clinically indicated. [place] LUMBAR SPINE TRAUMA RECON STRUCTIONon [...] the upper pole of the left kidney. [place] [facility] Incoming R adiant Results From [employer] [facility] - 08/30/2020 11:26 PM EDT EXAMINATION: CT [...] or traumatic malalignment involving the lumbar spine. [place] No evidence of an ac elsie fracture or traumatic malalignment involving the lumbar spine. [place] THORACIC SPINE TRAUMA REC ONSTRUCTIONon [...] the lung bases. No pneumothorax is noted. [facility] [place], [facility] Incoming R adiant Results From [facility] - 08/30/2020 11:29 PM EDT EXAMINATION: CT [...] or traumatic malalignment involving the thoracic spine [place] No evidence of an ac elsie fracture or traumatic malalignment involving the thoracic spine [place] CTA HEAD NECK W CONTRASTon 1 Unremarkable CTA of the neck. 50% stenosis left intracranial ICA, otherwise unremarkable CTA head. [place], [facility] Incoming R adiant Results From [facility] - 08/30/2020 11:48 PM EDT EXAMINATION: CTA [...] left intracranial ICA, otherwise unremarkable CTA head. [place] EXAMINATION: CTA OF THE HEAD AND [...] fluid collection. The durán-white differentiation is maintained. [place] TYPE AND SCREENon 08-30-2020 ABO/Rh Positive [place], [place] Arm Band Number BE [id number] [place] Expiration Date 09/02/2020,2357 [place] Trauma Panelon 08-30-2020 Hubert Test NOT REPORTED [place], [place] Anion gap [Moles/Vol] 10 mmol/L 9 - 17 mmol/L [place] aPTT Coag (Bld) [Time] 37.0 s [place] aPTT Coag (Bld) [Time] 24.4 s [place] Comment on above: IV Heparin Therapy Range: 48.6-77.8 Blood Bank Specimen BILL FOR SERVICES PERFORMED [place] Carboxyhemoglobin 2.2 % 0 - 5 % [place] Comment on above: Reference Range: Non-Smokers 0-2% Average Smoker 2-4% Heavy Smoker <10% Chloride [Moles/Vol] 106 mmol/L 98 - 10 7 mmol/L [place] CO2 [Moles/Vol] 23 mmol/L 20 - 31 mmol/L [place] Creatinine [Mass/Vol] 0.62 mg/dL 0.5 - 0.9 mg/dL [place] Erythrocyte distribution width (RBC) [Ratio] 14.1 % 11.8 - 14.4 % [place] Ethanol [Mass/Vol] mg/dL <10 mg/dL [place] Ethanol percent <0.010 <0.010 % [place] FIO2 INFORMATION NOT PROVIDED [place] GFR >60 >60 mL/min [place] GFR Non- >60 >60 mL/min [place] GFR/1.73 sq M predicted among non-blacks MDRD (S/P/Bld) [Vol rate/Area] [place] Comment on above: Average GFR for 60-6 9 years old: 85 mL/min/1.73sq m Chronic Kidney Disease: <60 mL/min/1.73sq m Kidney failure: <15 mL/min/1.73sq m eGFR calculated using average adult body mass. Additional eGFR calculator available at: http://www.[employer]/multiple_crcl_2012.htm GFR/1.73 sq M predicted among non-blacks MDRD (S/P/Bld) [Vol rate/Area] NOT REPORTED [place] Glucose [Mass/Vol] 186 mg/dL High 70 - 99 mg/dL [place] hCG Qual CANCELLED PER ED NEGATIVE [place] HCO3, Venous 23.6 mmol/L Low 24 - 30 mmol/L [place] Hematocrit (Bld) [Volume fraction] 38.2 % 36.3 - 47.1 % [place] Hemoglobin (Bld) [Mass/Vol] 12.3 g/dL 11.9 - 15.1 g/dL [place] INR Coag (PPP) [Relative time] 1.0 {INR} [place] Comment on above: Therapeutic Range: Moderate Anticoagulant Intensity: INR = 2.0-3.0 High Anticoagulant Intensity: INR = 2.5-3.5 Interpretation and review of laboratory results Abnormal [place] MCH (RBC) [Entitic mass] 28.9 pg 25.2 - 33.5 pg [place] MCHC (RBC) [Mass/Vol] 32.2 g/dL 28.4 - 34.8 g/dL [place] MCV (RBC) [Entitic vol] 89.7 fL 82.6 - 102.9 fL [place] Methemoglobin NOT REPORTED 0 - 1.5 % [place] Mode NOT REPORTED [place] Negative Base Excess, Christo 0.8 mmol/L 0 - 2 mmol/L [place] NOTIFICATION NOT REPORTED [place] NOTIFICATION TIME NOT REPORTED [place] O2 Device/Flow/% NOT REPORTED [place] Oxygen saturation in Blood 98.6 % High 60 - 85 % [place] Oxyhemoglobin NOT REPORTED 95 - 98 % [place] pCO2, Christo 40.6 [place] pCO2, Christo, Temp Adj NOT REPORTED [place] Peep/Cpap NOT REPORTED [place] pH, Christo 7.383 [place] pH, Christo, Temp Adj NOT REPORTED [place] Platelet mean volume (Bld) [Entitic vol] 10.6 fL 8.1 - 13.5 fL [place] Platelets (Bld) [#/Vol] 268 10*3/uL [place] pO2, Christo 143.0 High [place] pO2, Christo, Temp Adj NOT REPORTED [place] Positive Base Excess, Christo NOT REPORTED 0 - 2 mmol/L [place] Potassium [Moles/Vol] 3.5 mmol/L Low 3.7 - 5.3 mmol/L [place] PSV NOT REPORTED [place] PT Coag (PPP) [Time] 10.5 s [place] Pt. Position NOT REPORTED [place] RBC (Bld) [#/Vol] 4.26 10*6/uL 3.95 - 5.11 m/uL [place] Sample Site NOT REPORTED [place] Set Rate NOT REPORTED [place] Sodium [Moles/Vol] 139 mmol/L 135 - 144 mmol/L [place] Text for Respiratory NOT REPORTED [place], [place] Total Hb NOT REPORTED 12 - 16 g/dl [place] Total Rate NOT REPORTED [place] Urea nitrogen [Mass/Vol] 11 mg/dL 8 - 23 mg/dL [place] NOT REPORTED [facility]ld[facility] [#/Vol] 0.0 10*3/uL 0.0 per 100 WBC [facility] W[facility] (Bld) [#/Vol] 8.7 10*3/uL [facility] PRO[facility] 03-24-2019 Protein mass conc HNO ID: [id number] Author: Kamilah eJan) Kyle Service: ? Author Type: Physician Croze Machine Operator Type: Progress Notes Filed: 03/25/2019 10:38 AM Note Text: [facility] NOTE NAME: SHEMAR AVILA NO.: [id number] DATE OF SERVICE: 03/24/2019 [facility] DATE OF : 1955 CHIEF COMPLAINT: Skilled followup visit for discharge. Also complains of a cyst on her back. SUBJECTIVE FINDINGS: The patient was seen in her room today at [facility]. She is tentatively scheduled for discharge [...] above. MEDICATIONS: Medications were reviewed in the senior living records. OARRS report was run today and [...] DICTATED BY: Kamilah Wright PA-C PG/Niharika JOB# [id number] cc:[facility] Normal [facility] PROGRESSon 03-22-2019 Protein mass conc HNO ID: [id number] Author: Kamilah Wright (Pa) Service: ? Author Type: Physician Croze Machine Operator Type: Progress Notes Filed: 03/23/2019 11:37 AM Note Text: [facility] NOTE NAME: SHEMAR AVILA NO.: [id number] DATE OF SERVICE: 03/22/2019 [facility] DATE OF : 1955 CHIEF COMPLAINT: Skilled followup visit for stroke; today complaining of heartburn. SUBJECTIVE FINDINGS: The patient was seen in the therapy department at [facility]. She reports that overall she is [...] SYSTEMS: See above. MEDICATIONS: Reviewed in the senior living record. CODE STATUS: Full code. PHYSICAL EXAM: [...] DICTATED BY: Kamilah Wright PA-C PG/Niharika JOB# [id number] cc:Viviana Mota Normal [facility] PROGRESSon 03-19-2019 Protein mass conc HNO ID: [id number] Author: Kamilah Jean) Kyle Service: ? Author Type: Physician Croze Machine Operator Type: Progress Notes Filed: 03/22/2019 12:17 PM Note Text: [facility] NOTE NAME: SHEMAR AVILA NO.: [id number] DATE OF SERVICE: 03/19/2019 [facility] DATE OF : 1955 CHIEF COMPLAINT: Follow up for stroke and weakness. SUBJECTIVE FINDINGS: The patient was seen in her room at [facility]. She is complaining of a headache [...] SYSTEMS: See above. MEDICATIONS: Reviewed in the senior living record. CODE STATUS: Full code. PHYSICAL EXAM: [...] DICTATED BY: Kamilah Wright PA-C PG/Niharika JOB# [id number] cc:[facility] Normal [facility] PROGRESSon 03-17-2019 Protein mass conc HNO ID: [id number] Author: Kamilah Wright (Pa) Service: ? Author Type: Physician Croze Machine Operator Type: Progress Notes Filed: 03/18/2019 10:28 AM Note Text: [facility] NOTE NAME: SHEMAR AVILA NO.: [id number] DATE OF SERVICE: 03/17/2019 [facility] DATE OF : 1955 CHIEF COMPLAINT: Follow up for stroke and weakness. SUBJECTIVE FINDINGS: The patient was seen in the therapy department at [facility]. She is doing very well with [...] SYSTEMS: See above. MEDICATIONS: Reviewed in the senior living record. CODE STATUS: Full code. PHYSICAL EXAM: [...] DICTATED BY: Kamilah Wright PA-C PG/Niharika JOB# [id number] cc:Viviana Mota Normal [facility] PROGRESSon 03-15-2019 Protein mass conc HNO ID: [id number] Author: Kyra Butler Service: ? Author Type: Physician Type: Progress Notes Filed: 03/18/2019 5:07 PM Note Text: [facility] NOTE NAME: JESSI AVILA COLEEN NO.: [id number] DATE OF SERVICE: 03/15/2019 Viviana Mota DATE OF : 1955 New Patient History and Physical HISTORY OF PRESENT ILLNESS: The patient is a 63-year-old female was admitted to us from [facility] in [place] with the diagnoses of complicated headache syndrome [...] was negative. She was then transferred to [facility] where repeat CT scan along [...] therapy. DICTATED BY: MD NELIDA Larose/Niharika JOB# [id number] cc:[facility] Normal [facility] Vital Signs Date Time Vital Sign Value Performing Clinician Facility 05-13-2024 10:43-0400 Blood Pressure Location Dom ANDREA [facility] 05-13-2024 10:43-0400 Diastolic blood pressure 75 mm[Hg] Dom MENDEZ [facility] 05-13-2024 10:43-0400 Heart rate 64 /min Dom MENDEZ [facility] 05-13-2024 10:43-0400 Respiratory rate 16 /min Dom MENDEZ [facility] 05-13-2024 10:43-0400 Systolic blood pressure 117 mm[Hg] Dom NILL [facility] [place] 07-13-2023 11:32-0400 Body temperature 97.88 [degF] [facility] 07-13-2023 11:32-0400 Diastolic blood pressure 85 mm[Hg] [facility] 07-13-2023 11:32-0400 Heart rate 76 /min [facility] 07-13-2023 11:32-0400 Respiratory rate 18 /min [facility] 07-13-2023 11:32-0400 SaO2% (BldA) [Mass fraction] 97 % [facility] 07-13-2023 11:32-0400 Systolic blood pressure 147 mm[Hg] [facility] 02-24-2023 13:08-0400 Promise to Return Ronobir FELICIA [facility] 02-24-2023 12:00-0400 Hourly Rounding Ronobir FELICIA [facility] 02-24-2023 12:00-0400 Promise to Return Ronobir FELICIA [facility] 02-24-2023 11:56-0400 Heart rate 62 /min Ronobir FELICIA [facility] 02-24-2023 11:56-0400 SaO2% (BldA) [Mass fraction] 97 % Ronobir FELICIA [facility] 02-24-2023 11:54-0400 Diastolic blood pressure 67 mm[Hg] Ronobir FELICIA [facility] 02-24-2023 11:54-0400 Mean blood pressure 88 mm[Hg] Ronobir FELICIA [facility] 02-24-2023 11:54-0400 Systolic blood pressure 130 mm[Hg] Ronobir FELICIA [facility] 02-24-2023 11:54-0400 Body temperature 97.88 [degF] Ronobir FELICIA [facility] 02-24-2023 11:11-0400 Hourly Rounding Ronobir FELICIA [facility] 02-24-2023 11:11-0400 Promise to Return Ronobir FELICIA [facility] 02-24-2023 11:00-0400 Hourly Rounding Ronobir FELICIA [facility] 02-24-2023 07:50-0400 SaO2% (BldA) [Mass fraction] 98 % Ronobir FELICIA [facility] 02-24-2023 07:43-0400 Heart rate 61 /min Ronobir FELICIA [facility] 02-24-2023 07:43-0400 SaO2% (BldA) [Mass fraction] 98 % Ronobir FELICIA [facility] 02-24-2023 07:41-0400 Body temperature 98.06 [degF] Ronobir FELICIA [facility] 02-24-2023 07:41-0400 Diastolic blood pressure 74 mm[Hg] Ronobir FELICIA [facility] 02-24-2023 07:41-0400 Mean blood pressure 92 mm[Hg] Ronobir FELICIA [facility] 02-24-2023 07:41-0400 Systolic blood pressure 128 mm[Hg] Ronobir FELICIA [facility] 02-24-2023 03:47-0400 Blood Pressure Location Ronobir FELICIA [facility] 02-24-2023 03:47-0400 Body temperature 97.52 [degF] Ronobir FELICIA [facility] 02-24-2023 03:47-0400 Diastolic blood pressure 70 mm[Hg] Ronobir FELICIA [facility] 02-24-2023 03:47-0400 Heart rate 57 /min Ronobir FELICIA [facility] 02-24-2023 03:47-0400 Mean blood pressure 87 mm[Hg] Ronobir FELICIA [facility] 02-24-2023 03:47-0400 Respiratory rate 17 /min Ronobir FELICIA [facility] 02-24-2023 03:47-0400 Systolic blood pressure 120 mm[Hg] Ronobir FELICIA [facility] 02-24-2023 03:06-0400 Mean blood pressure 77 mm[Hg] Ronobir FELICIA [facility] 02-24-2023 03:06-0400 Respiratory rate 16 /min Ronobir FELICIA [facility] 02-24-2023 02:49-0400 Respiratory rate 16 /min Ronobir FELICIA [facility] 02-24-2023 02:04-0400 Body temperature 96.8 [degF] Ronobir FELICIA [facility] 02-24-2023 02:04-0400 Mean blood pressure 68 mm[Hg] Ronobir FELICIA [facility] 02-24-2023 01:09-0400 Body temperature 96.62 [degF] Ronobir FELICIA [facility] 02-24-2023 00:21-0400 Heart rate 58 /min Ronobir FELICIA [facility] 02-24-2023 00:06-0400 gluc 139 mg/dL Ronobir FELICIA [facility] 02-24-2023 00:06-0400 [facility] 61 [facility] 02-18-2022 13:50-0400 Body height 165.1 cm MD Shaikh Hernandez Work Phone: [facility] 02-18-2022 13:50-0400 Body weight 104.32 kg MD Shaikh Hernandez Work Phone: [facility] 09-01-2020 16:00-0400 BP Diastolic 85 mm[Hg] [place] 09-01-2020 16:00-0400 BP Systolic 158 mm[Hg] [facility] , [place] 09-01-2020 14:12-0400 Pulse (Heart Rate) 72 /min [place] 09-01-2020 13:30-0400 Respiratory rate NOT REPORTED [place] 09-01-2020 12:27-0400 Body Temperature 97.7 [degF] [place] 09-01-2020 12:27-0400 Pulse Oximetry 94 % [place] 09-01-2020 07:15-0400 Respiratory rate NOT REPORTED HERMELINDO ADKINS [facility] Comment on above: Performed By: #### ERTPF #### [facility] [address] [place] [id number] Calender Runner: Dheeraj Garcia MD 09-01-2020 04:45-0400 Respiratory Rate 15 /min Dank Rodgers [facility] [place] 08-31-2020 18:45-0400 BMI (Body Mass Index) 38.72 kg/m2 Dank Rodgers [facility] [place], [place] 08-31-2020 18:45-0400 Body weight 105.55 kg Dank Rodgers [facility] [place] , [place] 08-31-2020 18:45-0400 Height 165.1 cm Dank Rodgers [facility] , [place] 08-31-2020 00:34-0400 Respiratory rate NOT REPORTED HERMELINDO ADKINS [facility] Comment on above: Performed By: #### ERTPF #### [facility] [address] [place] [address] Calender Runner: Dheeraj Garcia MD 08-30-2020 23:08-0400 Respiratory rate NOT REPORTED Dank Rodgers [facility], [place] Encounters Encounter Date Encounter Type Care Provider Facility Start: 08-28-2026 ambulatory Arturo DOLAN Facili ty:[facility] Start: 08-26-2025 End: 08-26-2025 ambulatory Arturo DOLAN Facility:[facility] Start: 08-26-2025 End: 08-26-2025 Patient encounter procedure [facility] Start: 03-30-2025 End: 03-30-2025 ambulatory [facility] Start: 02-22-2025 End: 02-22-2025 ambulatory Arturo DOLAN Facility:[facility] [place] [place] Start: 02-22-2025 End: 02-22-2025 Patient encounter procedure Arturo DOLAN [facility] Start: 02-21-2025 End: 02-21-2025 ambulatory Arturo DOLAN Facility:[facility] Start: 02-07-2025 End: 02-07-2025 ambulatory Arturo DOLAN Facility:[facility] Start: 05-13-2024 End: 05-13-2024 Patient encounter procedure [facility] [place] Start: 12-30-2023 End: 12-30-2023 Patient encounter procedure Arturo DOLAN [facility] Start: 07-13-2023 End: 07-13-2023 Emergency department patient visit Zaki Muñoz [facility] Start: 04-15-2023 End: 04-15-[address] ROBIN PONCE . Facility:[facility] Start: 04-01-2023 End: 04-01-[address] DANK JOHNSON Facility:[facility] Start: 04-01-2023 End: 04-02-[address] DOCTOR CASTELLON Facility:[facility] Start: 03-24-2023 End: 03-25-[address] DOCTOR CASTELLON Facility:[facility] Start: 02-24-2023 End: 02-24-2023 Observation Sunshine DUARTE [facility] Start: 02-14-2023 End: 02-14-[address] ROBIN PONCE . Facility:[facility] Start: 10-05-2022 End: 10-05-[address] ZELALEM STACY Facility:[facility] Start: 09-23-2022 ambulatory SHAIKH Enio HERNANDEZ Facilit y:[facility] Start: 02-18-2022 End: 02-18-2022 Patient encounter procedure MD Shaikh Hernandez Work Phone: [facility] [place] Start: 02-18-2022 End: 02-18-2022 ambulatory Ese Tan Facility:[facility] Start: 03-21-2021 End: 03-22-2021 ambulatory REBEKA PARDO Facility:[facility] Start: 08-31-2020 End: 09-01-2020 Evaluation and management of inpatient HERMELINDO ADKINS [facility] Start: 08-30-2020 End: 09-01-2020 Evaluation and management of inpatient Dank Nunes [facility] Ortho/Med Surg Comment on above: Injury of head, init ial encounter (Primary Dx) Procedures Date Procedure Procedure Detail Performing Clinician Start: 06-23-2024 Colonoscopy Atruro DOLAN Start: 12-30-2023 Removal of ureteral stent [...] Start: 09-01-2020 Gonadotropin chorionic qualitative Hermelindo Mehta Adkins Work Phone: Start: 09-01-2020 Hemoglobin glycosylated [...] CHEMICAL VTE PROPHYLAXIS HERMELINDO ADKINS Start: 08-31-2020 BRICKMASON EVAL AND TREAT HERMELINDO ADKINS Start: 08-31-2020 TOBACCO CESSATION EDUCATION HERMELINDO ADKINS Start: 08-31-2020 VITAL SIGNS HERMELINDO LUCILLE Start: 08-31-2020 VITAL SIGNS - NOTIFY HERMELNIDO LUCILLE Start: 08-31-2020 PATIENT STATUS (FROM ED OR OR/PROCEDURAL) HERMELINDO ADKINS Start: 08-31-2020 IP CONSULT TO NEUROLOGY HERMELINDO ADKINS Start: 08-31-2020 Ct angiography head w/contrast/noncontrast HERMELINDO LUCILLE Start: 08-31-2020 Ct lumbar spine w/o contrast material HERMELINDO ADKINS Start: 08-31-2020 Ct thoracic spine w/o contrast material HERMELINDO ADKINS Start: 08-31-2020 Ct thorax w/contrast material HERMELINDO SUZANNE [place] Start: 08-31-2020 Ct cervical spine w/o [...] Start: 08-30-2020 Ct thorax w/contrast material Pati Means Ca lderon Work Phone: Start: 08-30-2020 Ct cervical spine w/o contrast material Pati B Diop Work Phone: Start: 08-30-2020 Blood typing serologic abo Dank Jorgensen n Start: 08-30-2020 TRAUMA PANEL Dank Nunes Start: 10-27-2018 Esophagogastroduodenoscopy Dom MENDEZ Start: 06-08-2015 Cystourethroscopy Dom MENDEZ Start: 03-18-2014 Colonoscopy Dom MENDEZ Start: 11-17-2011 Angioplasty of blood vessel Dom MNEDEZ Abdominal hysterectomy Fredo DUARTE Appendectomy Sunshine DUARTE Cardiac catheterization Jose MENDEZ Closed fracture of p atella (disorder) Sunshine DUARTE Colonoscopy Sunshine DUARTE Colonoscopy Dom MENDEZ Exploratory laparotomy Fredo DUARTE History of coronary artery bypass grafting H/O coronary artery bypass surgery MD Shaikh Hernandez Work Phone: Placement of stent i n coronary artery Dom BALBUENAL Tonsillectomy Dom BALBUENAL Vaginal hysterectomy Dom BALBUENAL Plan of Treatment Date Care Activity Detail Author Start: 09-01-2021 Creatinine measurement Creatinine mo [place]itoring [place], [place] Start: 09-01-2021 HbA1c (Bld) [Mass fraction] A1C test (Diabetic or Prediabetic) [place] Start: 09-01-2021 Lipid panel Lipid screen [place], [place] Start: 09-01-2021 Potassium monitoring Potassium monit [place]ing [place] Start: 08-31-2020 Annual Wellness Visi t (AWV) Annual Wellness Visit (AWV) [place] Start: 07-18-2020 Influenza vaccination Flu vaccine (# 1) [place] Start: 2007 Screening for malign ant neoplasm of breast Breast cancer screen [place] Start: 2007 Screening for malign ant neoplasm of colon Colon cancer screen colonoscopy [place] Start: 2007 Shingles Vaccine (1 of 2) Shingles V accine (1 of 2) [place] Start: 1978 Screening for malign ant neoplasm of cervix Cervical cancer screen [place] Start: 1976 DTaP/Tdap/Td vaccine (1 - Tdap) DTaP/Tdap/Td vaccine (1 - Tdap) [place] Start: 1975 Diabetic microalbumi betzy test Diabetic microalbuminuria test [place] Start: 1972 HIV screening HIV screen [facility] [place] Start: 1967 Diabetic foot examination Diabetic f oot exam [place] Start: 1967 Diabetic retinal exam Diabetic retin al exam [place] Start: 1957 Hepatitis C screening Hepatitis C sc reen [place] Oxygen therapy [[facility] Data Set] Initiate Oxygen Therapy Protocol Respiratory Care Routine Daily until discontinued starting 08/31/2020 [place] Comment on above: Daily until disconti nued starting 08/31/2020 End: 08-31-2020 Speech and language therapy regime [place] Comment on above: One Time for 1 Occur rences starting 08/31/2020 until 08/31/2020 Immunizations Immunization Date Immunization Notes Care Provider Ronny pathak 09-18-2024 influenza virus vacc ine, unspecified formulation Arturo DOLAN [facility] 09-18-2024 pneumococcal 20-ejff nt conjugate vaccine Arturo DOLAN [facility] 12-30-2023 influenza virus vacc ine, unspecified formulation Dom MENDEZ [facility] 09-13-2021 influenza virus vacc ine, unspecified formulation Arturo DOLAN [facility] 08-17-2021 influenza virus vacc ine, unspecified formulation Sunshine DUARTE [facility] 04-19-2021 SARS-CoV-2 (COVID-19 ) mRNA-1273 vaccine Dom MENDEZ [facility] 02-15-2021 SARS-CoV-2 (COVID-19 ) Ad26 vaccine, recombinant Ronobir FELICIA [facility] 02-15-2021 SARS-CoV-2 (COVID-19 ) mRNA BNT-162b2 vax Dom NILL [facility] [place] 01-25-2021 SARS-CoV-2 (COVID-19 ) mRNA BNT-162b2 vax Dom NILL [facility] [place] 01-15-2021 SARS-CoV-2 (COVID-19 ) Ad26 vaccine, recombinant Ronobir FELICIA [facility] 09-19-2017 influenza virus vacc ine, unspecified formulation Arturo DOLAN [facility] 09-19-2017 pneumococcal conjuga te vaccine, 13 valent Arturo DOLAN [facility] 08-21-2016 influenza virus vacc ine, unspecified formulation Arturo DOLAN [facility] 08-21-2016 pneumococcal polysaccharide vaccine, 23 valent Arturo DOLAN [facility] Payers Date Payer Category Payer Medicare [id number] 2024 Medicare [id number] 2022 Self-pay [id number] 1959 Medicare [id number] 1.2.8 [id number] 1959 Self-pay [id number] 1957 Unknown [id number] 2.16.8 [id number] 1957 Unknown [id number] 2.16.8 40.1.228092.3.579.2.647 1957 Unknown [id number] 2.16.84 0.1.132838.3.579.2.593 1957 Unknown [id number] 2.16.84 0.1.131690.3.579.2.593 1957 Unknown [id number] 2.16.84 0.1.198529.3.579.2.593 1957 Unknown [id number] 2.16.84 0.1.235669.3.579.2.593 1957 Unknown [id number] 2.16.84 0.1.627100.3.579.2.593 1957 Unknown [id number] 2.16.84 0.1.806006.3.579.2.593 1957 Unknown [id number] 2.16.84 0.1.354858.3.579.2.593 1957 Unknown [id number] 2.16.8 40.1.892959.3.579.2.727 1957 Unknown [id number] 2.16.8 40.1.321724.3.579.2.727 1957 Unknown [id number] 2.16.8 40.1.617417.3.579.2.727 1957 Unknown [id number] 2.16.8 40.1.818973.3.579.2.727 1957 Unknown [id number] 2.16.8 40.1.989266.3.579.2.727 Unknown [id number] 2.16.8 40.1.146293.3.579.2.531 Social History Date Type Detail Facility Tobacco smoking stat [email or web address]IS Unknown if ever smoked [place] Sex Assigned At Not on file [place] Start: 03-19-2021 Tobacco smoking stat NHIS Ex-smoker (finding) [facility] Start: 1955 Sex Assigned At Female [facility] Start: 02-24-2023 End: 08-26-2025 Tobacco smoking status Heavy tobacco smoker (finding) [facility] Comment on above: 1 pack a day Sex Assigned At Female [facility] Tobacco smoking status Never [facility] Comment on above: 1 pack a day Sexual Orientation [facility] Start: 08-22-2010 Sex Female (finding) [facility] Functional Status Date Assessment Result Facility 02-22-2025 Functional Status N/A [facility] 05-13-2024 Functional Status N/A [facility] [place] 12-30-2023 Functional Status N/A [facility] 07-13-2023 Functional Status N/A [facility] 02-24-2023 Functional Status No [facility] 02-24-2023 Functional Status [facility] Clinical Notes 02-24-2023 to 08-26-2025 Note Date & Type Note Facility 08-26-2025 Hospital Discharge instructions Patient Education 08/26/2025 10:38:05 Dietary Guidelines to Help Prevent Kidney Stones Dietary Guidelines to Help Prevent Kidney Stones Kidney stones are deposits of minerals and salts that form inside your kidneys. Your risk of developing kidney stones may be greater depending on your diet, your lifestyle, the medicines you take, and whether you have certain medical conditions. Most people can lower their risks of developing kidney stones by following these dietary guidelines. Your dietitian may give you more specific instructions depending on your overall health and the type of kidney stones you tend to develop. What are tips for following this plan? Reading food labels Choose foods with no salt added or low-salt labels. Limit your salt (sodium) intake to less than 1,500 mg a day. Choose foods with calcium for each meal and snack. Try to eat about 300 mg of calcium at each meal. Foods that contain 200 500 mg of calcium a serving include: ?8 oz (237 mL) of milk, fcmnhdv-wlgwlqdndxme-uispe milk, and calcium-fortifiedfruit juice. Calcium-fortified means that calcium has been added to these drinks. ?8 oz (237 mL) of kefir, yogurt, and soy yogurt. ?4 oz (114 g) of tofu. ?1 oz (28 g) of cheese. ?1 cup (150 g) of dried figs. ?1 cup (91 g) of cooked broccoli. ?One 3 oz (85 g) can of sardines or mackerel. Most people need 1,000 1,500 mg of calcium a day. Talk to your dietitian about how much calcium is recommended for you. Shopping Buy plenty of fresh fruits and vegetables. Most people do not need to avoid fruits and vegetables, even if these foods contain nutrients that may contribute to kidney stones. When shopping for convenience foods, choose: ?Whole pieces of fruit. ?Pre-made salads with dressing on the side. ?Low-fat fruit and yogurt smoothies. Avoid buying frozen meals or prepared deli foods. These can be high in sodium. Look for foods with live cultures, such as yogurt and kefir. Choose high-fiber grains, such as whole-wheat breads, oat bran, and wheat cereals. Cooking Do not add salt to food when cooking. Place a salt shaker on the table and allow each person to add their own salt to taste. Use vegetable protein, such as beans, textured vegetable protein (TVP), or tofu, instead of meat in pasta, casseroles, and soups. Meal planning Eat less salt, if told by your dietitian. To do this: ?Avoid eating processed or pre-made food. ?Avoid eating fast food. Eat less animal protein, including cheese, meat, poultry, or fish, if told by your dietitian. To do this: ?Limit the number of times you have meat, poultry, fish, or cheese each week. Eat a diet free of meat at least 2 days a week. ?Eat only one serving each day of meat, poultry, fish, or seafood. ?When you prepare animal proteins, cut pieces into small portion sizes. For most meat and fish, one serving is about the size of the palm of your hand. Eat at least five servings of fresh fruits and vegetables each day. To do this: ?Keep fruits and vegetables on hand for snacks. ?Eat one piece of fruit or a handful of berries with breakfast. ?Have a salad and fruit at lunch. ?Have two kinds of vegetables at dinner. You may be told to limit foods that are high in a substance called oxalate. These include: ?Spinach (cooked), rhubarb, beets, sweet potatoes, and Serbian chard. ?Peanuts. ?Potato chips, sao tomean fries, and baked potatoes with skin on. ?Nuts and nut products. ?Chocolate. If you regularly take a diuretic medicine, make sure to eat at least 1 or 2 servings of fruits or vegetables that are high in potassium each day. These include: ?Avocado. ?Banana. ?[place], prune, carrot, or tomato juice. ?Baked potato. ?Cabbage. ?Beans and split peas. Lifestyle Drink enough fluid to keep your urine pale yellow. This is the most important thing you can do. Spread your fluid intake throughout the day. If you drink alcohol: ?Limit how much you have to: ?0 1 drink a day for women who are not . ?0 2 drinks a day for men. ?Know how much alcohol is in your drink. In the [place] one drink equals one 12 oz bottle of beer (355 mL), one 5 oz glass of wine (148 mL), or one 1 oz glass of hard liquor (44 mL). Lose weight if told by your health care provider. Work with your dietitian to find an eating plan and weight loss strategies that work best for you. General information Talk to your health care provider and dietitian about taking daily supplements. Depending on your health and the cause of your kidney stones, you may be told: ?Do not take high-dose supplements of vitamin C (1,000 mg a day or more). ?To take a calcium supplement. ?To take a daily probiotic supplement. ?To take other supplements such as magnesium, fish oil, or vitamin B6. Take vszw-msa-dtsjljs and prescription medicines only as told by your health care provider. These include supplements. What foods should I limit? Limit your intake of the following foods, or eat them as told by your dietitian. Vegetables Spinach. Rhubarb. Beets. Canned vegetables. Pickles. Olives. Baked potatoes with skin. Grains Wheat bran. Baked goods. Salted crackers. Cereals high in sugar. Meats and other proteins Nuts. Nut butters. Large portions of meat, poultry, or fish. Salted, precooked, or cured meats, such as sausages, meat loaves, and hot dogs. Dairy Cheeses. Beverages Regular soft drinks. Regular vegetable juice. Seasonings and condiments Seasoning blends with salt. Salad dressings. Soy sauce. Ketchup. Barbecue sauce. Other foods Canned soups. Canned pasta sauce. Casseroles. Pizza. Lasagna. Frozen meals. Potato chips. [place]yan fries. The items listed above may not be a complete list of foods and beverages you should limit. Contact a dietitian for more information. What foods should I avoid? Talk to your dietitian about specific foods you should avoid based on the type of kidney stones you have and your overall health. Fruits Grapefruit. The item listed above may not be a complete list of foods and beverages you should avoid. Contact a dietitian for more information. Summary Kidney stones are deposits of minerals and salts that form inside your kidneys. You can lower your risk of kidney stones by making changes to your diet. The most important thing you can do is drink enough fluid. Drink enough fluid to keep your urine pale yellow. Talk to your dietitian about how much calcium you should have each day, and eat less salt and animal protein as told by your dietitian. This information is not intended to replace advice given to you by your health care provider. Make sure you discuss any questions you have with your health care provider. Document Revised: 02/13/2023 Document Reviewed: 02/13/2023 [employer] Patient Education 2023 [employer]. Follow Up Care 02/22/2025 15:10:10 With:MAGDALENO PRADO, Arturo Bates, URL Address: [facility] [address], [place] [address]- When: Unknown [facility] 08-26-2025 Note Patient Education Nephrology Dietary Guidelines to Help Prevent Kidney Stones Kidney stones are deposits of minerals and salts that form inside your kidneys. Your risk of developing kidney stones may be greater depending on your diet, your lifestyle, the medicines you take, and whether you have certain medical conditions. Most people can lower their risks of developing kidney stones by following these dietary guidelines. Your dietitian may give you more specific instructions depending on your overall health and the type of kidney stones you tend to develop. What are tips for following this plan? Reading food labels ??? Choose foods with no salt added or low-salt labels. Limit your salt (sodium) intake to less than 1,500 mg a day. ??? Choose foods with calcium for each meal and snack. Try to eat about 300 mg of calcium at each meal. Foods that contain 200?500 mg of calcium a serving include: ? 8 oz (237 mL) of milk, kmyrhrc-cyuhvmigiqji-shemw milk, and calcium-fortifiedfruit juice. Calcium-fortified means that calcium has been added to these drinks. ? 8 oz (237 mL) of kefir, yogurt, and soy yogurt. ? 4 oz (114 g) of tofu. ? 1 oz (28 g) of cheese. ? 1 cup (150 g) of dried figs. ? 1 cup (91 g) of cooked broccoli. ? One 3 oz (85 g) can of sardines or mackerel. Most people need 1,000?1,500 mg of calcium a day. Talk to your dietitian about how much calcium is recommended for you. Shopping ??? Buy plenty of fresh fruits and vegetables. Most people do not need to avoid fruits and vegetables, even if these foods contain nutrients that may contribute to kidney stones. ??? When shopping for convenience foods, choose: ? Whole pieces of fruit. ? Pre-made salads with dressing on the side. ? Low-fat fruit and yogurt smoothies. ??? Avoid buying frozen meals or prepared deli foods. These can be high in sodium. ??? Look for foods with live cultures, such as yogurt and kefir. ??? Choose high-fiber grains, such as whole-wheat breads, oat bran, and wheat cereals. Cooking ??? Do not add salt to food when cooking. Place a salt shaker on the table and allow each person to add their own salt to taste. ??? Use vegetable protein, such as beans, textured vegetable protein (TVP), or tofu, instead of meat in pasta, casseroles, and soups. Meal planning ??? Eat less salt, if told by your dietitian. To do this: ? Avoid eating processed or pre-made food. ? Avoid eating fast food. ??? Eat less animal protein, including cheese, meat, poultry, or fish, if told by your dietitian. To do this: ? Limit the number of times you have meat, poultry, fish, or cheese each week. Eat a diet free of meat at least 2 days a week. ? Eat only one serving each day of meat, poultry, fish, or seafood. ? When you prepare animal proteins, cut pieces into small portion sizes. For most meat and fish, one serving is about the size of the palm of your hand. ??? Eat at least five servings of fresh fruits and vegetables each day. To do this: ? Keep fruits and vegetables on hand for snacks. ? Eat one piece of fruit or a handful of berries with breakfast. ? Have a salad and fruit at lunch. ? Have two kinds of vegetables at dinner. ??? You may be told to limit foods that are high in a substance called oxalate. These include: ? Spinach (cooked), rhubarb, beets, sweet potatoes, and Serbian chard. ? Peanuts. ? Potato chips, sao tomean fries, and baked potatoes with skin on. ? Nuts and nut products. ? Chocolate. ??? If you regularly take a diuretic medicine, make sure to eat at least 1 or 2 servings of fruits or vegetables that are high in potassium each day. These include: ? Avocado. ? Banana. ? [place], prune, carrot, or tomato juice. ? Baked potato. ? Cabbage. ? Beans and split peas. Lifestyle ??? Drink enough fluid to keep your urine pale yellow. This is the most important thing you can do. Spread your fluid intake throughout the day. ??? If you drink alcohol: ? Limit how much you have to: ? 0?1 drink a day for women who are not . ? 0?2 drinks a day for men. ? Know how much alcohol is in your drink. In the [place] one drink equals one 12 oz bottle of beer (355 mL), one 5 oz glass of wine (148 mL), or one 1? oz glass of hard liquor (44 mL). ??? Lose weight if told by your health care provider. Work with your dietitian to find an eating plan and weight loss strategies that work best for you. General information ??? Talk to your health care provider and dietitian about taking daily supplements. Depending on your health and the cause of your kidney stones, you may be told: ? Do not take high-dose supplements of vitamin C (1,000 mg a day or more). ? To take a calcium supplement. ? To take a daily probiotic supplement. ? To take other supplements such as magnesium, fish oil, or vitamin B6. ??? Take xvnp-mno-irnslsx and prescription medicines only as told by your health (more content not included)... [facility] 03-30-2025 Note [facility] Cardiology Clinic Note Chief Complaint: Patient [...] Iodinated contrast media, Aspirin, Atorvastatin, Cat/feline products, [place], Topiramate, Blue dye, Iodine, and Lisinopril Medications [...] Investigations: Echocardiogram : (more content not included)... [facility] 02-22-2025 Hospital Discharge instructions Patient Education 02/22/2025 [...] Up Care 02/21/2025 14:28:09 With:Arturo DOLAN Address: [address] [place], [place] [id number] Business (1) When:08/24/2025 14:55:23 [facility] 02-22-2025 Note Patient Education Custom [...] you have a fever over 100 degrees [facility] 02-21-2025 Note Patient Education Pulmonary Medicine Steps [...] require a prescription. You can also purchase ggdm-ems-fyweopw medicines. Medicines may have nicotine in them [...] and encouragement. Call telephone quitlines, such as 0-402-GJIE-NOW, reach out to support groups, or work [...] away, not s (more content not included)... [facility] 12-30-2023 Hospital Discharge instructions Patient [...] Address: [facility] [address] [place] [address] Business (1) When:03/29/2024 11:56:00 Comments:With a stone metabolic workup [facility] 07-13-2023 Hospital Discharge instructions Patient [...] to strengthen the arm. General instructions Take ecad-mor-ttrgcik and prescription medicines only as told by [...] provider. Document Revised: 07/19/2022 Document Reviewed: 07/19/2022 [employer] Patient Education 2022 [employer]. 07/13/2023 12:19:06 Muscle Strain Muscle Strain A [...] is not too tight. General instructions Take sfoj-qqm-frldlkq and prescription medicines only as told by [...] provider. Document Revised: 01/21/2022 Document Reviewed: 01/21/2022 [employer] Patient Education 2022 [employer]. Follow Up Care 07/13/2023 11:23:52 With:Robin Kris Address: [address] [place], [place] [phone] Business (1) When:07/16/2023 12:02:34 [facility] 07-13-2023 Evaluation + Plan note Extrac sherita from: Title:ED Note Author:Mathew Montana PA-C te:07/13/23 Shoulder pain (M25.519: Pain in unspecified shoulder) Ordered: acetaminophen-oxycodone, 1 tab(s), Oral, q6hr as needed for pain for 3 day(s), 15 tab(s), Refill(s) 0, [id number], 165, cm, 07/13/23 11:34:00 EDT, Height/Length Dosing, 95.5, kg, 07/13/23 11:34:00 EDT, Weight Dosing [facility]04-10-2023 Evaluation + Plan noteExtracted from: [...] PRN With When Contact Information Robin Ponce [address] [place] [phone] Business (1) Additional Instructions: Office is closed for lunch between Noon and 1 p.m. Please contact office for follow up appointment. Thank you! SHAIKH MARY Within 5 to [address] [place] [address] Business (1) Additional Instructions: Not a patient. Syncope, Vjxp-wj-Xlxl Extracted from: Title:APSO Note Author:Leann GUNTER MD [...] [facility] Hospital Care/Day Moderate 35 Minutes [id number] 2. RAMA (acute kidney injury) (N17.9: Acute kidney failure, unspecified) Acute kidney injury secondary to ATN from dehydration and antihypertensives. Resolved. Treated with IV fluid. Ordered: [facility] Hospital Care/Day Moderate 35 Minutes [id number] 3. Hypokalemia (E87.6: Hypokalemia) Secondary to poor oral intake. Potassium level improving to 3.4. We will give patient additional potassium chloride. Ordered: potassium chloride, 40 mEq = 2 tab(s), Tab-ER, Oral, Once, Stop date 02/24/23 10:00:00 EDT, Routine, Start date 02/24/23 10:00:00 EDT, 02/24/23 9:46:00 EDT [facility] Care/Day Moderate 35 Minutes [id number] 4. Diabetes mellitus (E11.9: Type 2 diabetes mellitus without complications) Continue sliding scale insulin. Ordered: [facility] Care/Day Moderate 35 Minutes 83207 5. High cholesterol (E78.00: Pure hypercholesterolemia, unspecified) On Lipitor at home. Ordered: [facility] Hospital Care/Day Moderate 35 Minutes [id number] 6. Hypertension (I10: Essential (primary) hypertension) Blood pressure on the low side of normal. 7. CAD (coronary artery disease) (I25.10: Atherosclerotic heart disease of coquille coronary artery without angina pectoris) Continue on aspirin, Plavix. 8. Aortic aneurysm (I71.9: Aortic aneurysm of unspecified site, without rupture) Status post surgery. 9. Obese (E66.9: Obesity, unspecified) Recommend therapeutic lifestyle modification changes. 10. On deep vein thrombosis (DVT) prophylaxis (Z79.899: Other intermediate school teacher (current) drug therapy) Heparin. Disposition: Home soon pending physical therapy evaluation. I discussed the diagnosis and plan of care with the patient at the bedside. Moderate level of MDM based on addressing above issues. This documentation was transcribed using voice recognition software. Several attempts were made to ensure accuracy. However inadvertent computerized heating element repairer errors may be present. Leann Gunter. Hospitalist. [...] deep vein thrombosis (DVT) prophylaxis (Z79.899: Other care home (current) drug therapy) SCD, heparin Orders: acetaminophen, [...] XR Spine Lumbosacral 2 or 3 Views [facility]04-10-2023 Hospital Discharge instructions Patient Education 02/24/2023 11:49:54 Syncope, Wveu-ks-Vlto Syncope Syncope is when you pass out [...] pee (urine) pale yellow. General instructions Take egqc-zph-sckqwzq and prescription medicines only as told by [...] 04/21/2009 Document Revised: 12/16/2018 Document Reviewed: 12/16/2018 [employer] Patient Education 2019 [employer]. Follow Up Care 02/24/2023 00:01:37 With:Robin Ponce Address: [facility] [place] [address] Business (1) When: Unknown Comments:Office is closed for lunch between Noon and 1 p.m. Please contact office for follow up appointment.Thank you! With:SHAIKH MARY Address: [address] [place] [address] Business (1) When:5 to 7 days Comments:Not a patient. [facility]ments Appointment Date:08/26/2025 09:30:00 AM Scheduled Provider:Arturo DOLAN MD Location:[facility] Appointment Type:URO Office Visit [facility] Evaluation + Plan note Future Appointments Appointment Date:08/28/2026 12:15:00 PM Scheduled Provider:Arturo DOLAN MD Location:[facility] Appointment Type:URO Office Visit [facility] evaluation noteNo assessment information available [facility] Work Phone: Hospital course Narrative No data available for this section [facility] No data available for this section [facility] General [facility] [place] Progress note No data available for this section [facility] Summary Purpose Family History No [...] Assisted Dressing Independent Toileting Assisted Feeding Independent Seed Buyer Independent Med Delivery whole Wound Care Documentation [...] Readmission: 9 Discharging to Facility/ Agency Name: [facility] FAX [address] [address] Address: Phone: Fax: Dialysis Facility (if applicable) Name: Address: Dialysis Schedule: Phone: Fax: Presentation Specialist/Boat Fueler signature: EDT PHYSICIAN SECTION Prognosis: Good Condition at Discharge: Stable Rehab Potential (if transferring to Rehab): {Prognosis:[id number]} Recommended Labs or Other Treatments After Discharge: [...] called to the trauma nurse line at [phone] and please leave a message. Trauma is a life-threatening condition. Your doctor will want to closely monitor you. Be sure to goto all of your appointments. * Attachments The following attachments cannot be sent through Care Everywhere. * Fall Prevention (Togolese) * Falls: Get Up Safely Instruction (Togolese) * Vasovagal Syncope (Togolese) documented in this encounter History of Present [...] 4 wheeled walker, Cane, Quad cane, Crutches, Jewelry Facer, Sock aid(pt reported no use of DME at baseline) ADL Assistance: Independent Homemaking Assistance: Independent Homemaking Responsibilities: Yes Meal Prep Responsibility: Primary Laundry Responsibility: Primary Cleaning Responsibility: Primary Ambulation Assistance: Independent Transfer Assistance: Independent Active Glove Former: Yes Mode of Transportation: Car Occupation: Retired [...] feeling like L LE was going to [facility] functional mobility. pt with no [...] L LE. pt unable to identify when verse writer was touching L UE (on elbow [...] ADL Inpatient CMS G-Code Modifier : CK (09/01/20 1441) Goals Short term goals Time Frame for [...] activity in order to increase coordination and sewer head strength to L hand Short term goal 6: dem SBA during functional transfers/functional mobility with LRD, as needed Therapy Time Individual Concurrent Group Co-treatment Time In 1316 Time Out 1404 Minutes 48 Variance: 40 Debi Marques OTR/L * Taya Bergeron, BRICKMASON - 09/01/2020 11:39 AM EDT Speech Language Pathology Facility/Department: [address] ORTHO/MED SURG Initial Speech/Language/Cognitive Assessment NAME: [...] who fell upon standing [facility] the [facility], upon which she hit her head on the bathtub. +LOC, on Plavix. Taken to [place] where a stroke alert was initiated. CT head at 6pm today at [place] did not show intracranial bleed. Transferred to [place] for trauma and neurology work-up. Upon arrival, Pt without neurological deficit, GCS 15, c/o REYNA. Pt deemed hemodynamically stable and was sent to CT. Pain: Pain Assessment Pain Assessment: Faces Pain Level: 0 Assessment: Pt presents with mild-moderate cognitive deficits characterized by difficulty with immediate and short-term memory, verbal reasoning skills, and word associations. Pt. ORUTSARARMIUT, which may haveaffected results of evaluation. Multiple repetitions provided throughout evaluation. Pt. Presents with no dysarthria, no O/M deficits at this time. ST to follow up and provide treatment to address noted deficits. Education provided. Recommendations: Requires BRICKMASON Intervention: Yes Duration/Frequency of Treatment: 3-5X/week D/C [...] 1126 Minutes 12 Completed by: Debi Andrade Forming Machine Upkeep Mechanic Clinician Cosigned By: Taya Bergeron M.A.CCC/BRICKMASON 09/01/2020 11:40 AM * Caleb Jefferson MD [...] CC: I have a headache SUBJECTIVE Jessi Avila is doing well this morning. She [...] MD 09/01/2020 4:00 PM * Nader Petit, ASSISTANT MERCHANDISE MANAGER - 09/01/2020 10:02 AM EDT Physical Therapy Facility/Department: [address] ORTHO/MED SURG Daily Treatment Note NAME: [...] Safe use of RW Barriers to Learning: ORUTSARARMIUT REQUIRES PT FOLLOW UP: Yes Activity Tolerance [...] 44 Timed Code Treatment Minutes: 40 Minutes ASSISTANT MERCHANDISE MANAGER returned to pt's room to have her attempt stair management, to return home safely Individual Individual Time In 1140 Time Out 1205 Minutes 25 Timed Code Treatment Minutes: 9 Minutes (a doctor interrupted PT, to assess the pt) Nader Petit, ASSISTANT MERCHANDISE MANAGER * Debi Marques OT - 09/01/2020 8:34 [...] PM EDT Physical Therapy Facility/Department: [facility] ED Initial Assessment NAME: Jessi Avila : [...] Ambulation Assistance: Independent Transfer Assistance: Independent Active Glove Former: Yes Mode of Transportation: Car Occupation: Retired [...] section and content) DATE CREATED AUTHOR 04/06/2019 [facility] DATE CREATED AUTHOR AUTHOR'S ORGANIZ ATION 09/12/2020 [facility] DATE CREATED AUTHOR AUTHOR'S ORGANIZ ATION 03/28/2021 [facility] DATE CREATED AUTHOR AUTHOR'S ORGANIZ ATION 04/25/2023 [facility] DATE CREATED AUTHOR AUTHOR'S ORGANIZ ATION 07/04/2024 [facility] DATE CREATED AUTHOR AUTHOR'S ORGANIZ ATION 04/04/2025 [facility] DATE CREATED AUTHOR AUTHOR'S ORGANIZ ATION 08/28/2025 [facility] Reason for Visit (unrecogniz ed section and content) Reason Comments Fall Trauma Status Reason Specialty Diagnoses / Procedures Referre d By Contact Referred To Contact Diagnoses Syncope and collapse Procedures Syncope and collapse Hermelindo Adkins MD [address] [address], [address] [place] [address] [facility] Care Teams (unrecognized sec tion and [...] BE BASED ON THE PRIMARY CLINICAL RECORDS. [facility]. provides no warranty or guarantee of the accuracy or completeness of information in this document.
== END 2025-09-01 09:47 | disposition home or self-care (01) ==
LOC: MAMMO 09:46
PROVIDERS: PCP Family Medicine; Visit Provider Family Medicine
DX: Z12.31 Encounter for screening mammogram for malignant neoplasm of breast (principal); Z80.3 Family history of malignant neoplasm of breast
CPT/HCPCS: 77063; 77067

== ENCOUNTER 2025-09-01 10:16 | Outpatient (OUT) | payer OTHER, SELFPAY ==
--- OUTSIDE RECORDS SUMMARY | 2025-09-01 10:20 | XMS_ITS | Clinical Summary ---
Author Organization [facility] Address [id number] [address] [place] [address] Care Team Providers Care Organic Preparation Analyst Name Role Phone Danilo Mclain MD Primary Care Provider [phone] Allergies Active Allergy Reactions Criticality Noted Date Comments Aspirin GI Disturbance Medium 10/22/2016 Atorvastatin muscle cramps,Other (See Comments) Medium 11/04/2014 States pain in groin Blue Dye Other (See Comments) 11/04/2014 Cat/Feline Products Hives Medium 10/22/2016 Iodinated Contrast Media Swelling High 10/22/2016 Iodine And Iodide Containing Products Swelling 11/04/2014 Lisinopril (Bulk) Anaphylaxis,Angioede m a High 10/22/2016 Begins with lip tongue swelling and sob Latty Hives Medium 10/22/2016 Topiramate Hives,Other (See Comments) [...] 7:45 AM 08/16/2019 8:20 PM Care Teams Organic Preparation Analyst Relationship Specialty Start Date End Date Danilo Mclain MD PCP - General 10/28/16
--- OUTSIDE RECORDS SUMMARY | 2025-09-01 10:20 | XMS_ITS | Clinical Summary ---
Author Organization [facility] Address [address] [place] [address] Care Team Providers Care Livestock Slaughterer Name Role Phone Danilo Mclain MD Primary Care Provider [phone] Allergies Active Allergy Reactions Criticality Noted Date Comments Aspirin GI intolerance Medium 10/22/2016 Atorvastatin Other Medium 11/04/2014 States pain in groin Blue Dye Other 11/04/2014 Cat/Feline Products Hives Medium 10/22/2016 Iodinated Contrast Media Swelling High 10/22/2016 Iodine Other 11/04/2014 Lisinopril Other 11/04/2014 [place] Hives Medium 10/22/2016 Topiramate Hives,Other Medium 11/04/2014 [...] mg SL tabletIndication s:Coronary artery disease involving [place] coronary artery of [place] heart without angina pectoris nitroglycerin 0.4 mg sublingual tablet 30 tablet 04/25/20 23 Active hydrOXYzine pamoate (Vistaril) 25 mg capsule Take 25 mg by mouth at bedtime. 07/01/20 23 Active NovoLIN 70-30 FlexPen U-100 100 unit/mL (70-30) injection 06/26/20 23 Active isosorbide mononitrate ER (Imdur) 60 mg 24 hr tabletIndication s:Atherosclerosi s of [place] coronary artery of [place] heart without angina pectoris Take 1 tablet [...] pt to see a migraine specialist in [place] or [place] NEGRITA (generalized anxiety disorder) 08/14/2019 Severe episode [...] Assessment & Plan (07/08/2023 3:24 PM EDT): [facility] II- currently LVEF normal 60%- recovered [...] Personal/Family Self 1955 x0 (Home) [address] [place] [address] [employer] Care Teams Livestock Slaughterer Relationship Specialty Start Date End Date Danilo Mclain MD [address] [address] PCP - General 07/08/22
--- OUTSIDE RECORDS SUMMARY | 2025-09-01 10:20 | XMS_ITS | Clinical Summary ---
Author Organization [facility] Address [address] [place] [address] Care Team Providers Care Medical Sales Representative Name Role Phone Unavailable Primary Care Provider [...]
--- OUTSIDE RECORDS SUMMARY | 2025-09-01 10:20 | XMS_ITS | Clinical Summary ---
Author Organization [facility] Address [address], [address] [place] [address] Care Team Providers Care Residence Hall Director Name Role Phone Danilo Mclain MD Primary Care Provider [phone] Medications clonazePAM (KLONOPIN) 0.5 MG tablet Take [...] 3:54 AM 08/31/2020 3:54 AM Care Teams Residence Hall Director Relationship Specialty Start Date End Date Danilo Mclain MD [address] [place] [address] PCP - General Family Medicine 08/31/20
--- OUTSIDE RECORDS SUMMARY | 2025-09-01 10:22 | XMS_ITS | CCD ---
Author Organization [facility] Care Team Providers Care Research Aide Name Role Phone Robin Ponce Primary Care [...] Consulting Unavailable Robin Ponce Primary Care Physician [phone] Ese Tan Admitting Unavailable Ese Tan Attending [...] Inhibitors (1 source) Lisinopril Drug Allergy [facility] Anti-Epileptic Agents (1 source) topiramate Drug Allergy [facility] Berries (1 source) [place] Food Allergy [facility] Cats (1 source) Cat Animal Allergy (Dander) [facility] Dextroamphetamine (1 source) Dextroamphetamine Drug Allergy [facility] Iodine (and Iodine containting drugs) (1 source) Iodine (And Iodine Containting Drugs) Drug Allergy [facility] Unclassified (2 sources) BLUE DYE; Translations: [BLUE DYE] Drug allergy (disorder) [facility] (8 sources) Aspirin; Translations: [Aspirin] Drug Allergy 016 Nausea [facility] Comment on above: uncoded aspirin (9 sources) atorvastatin; Translations: [atorvastatin] Drug Allergy 014 Muscle pain (finding) [facility] (12 sources) Lisinopril; Translations: [Lisinopril] Drug Allergy 013 Edema of pharynx (disorder) [facility] (3 sources) Morphine; Translations: [morphine] Drug Allergy [facility] (5 sources) strawberry allergenic extract; Translations: [Moraga] Drug Allergy 011 [facility] (9 sources) topiramate; Translations: [topiramate] Drug Allergy Urticaria (disorder), Nausea (finding) [facility] (2 sources) cat dander; Translations: [cat dander] Allergy to substance [facility] (3 sources) Iodinated Contrast Media; Translations: [Iodinated Contrast Media] Allergy to substance [facility] (7 sources) Contrast media; Translations: [Contrast Dye] Drug allergy Urticaria (disorder) [facility] (7 sources) [place]; Translations: [Strawberries] Drug allergy Urticaria (disorder) [facility] (7 sources) SUMAtriptan; Translations: [sumatriptan] Drug Allergy Nausea (finding) [facility] (1 source) Acetaminophen / Aspirin / Caffeine Drug Allergy [facility] (2 sources) Dextroamphetamine; Translations: [Lipitor] Drug Allergy [facility] (2 sources) Iodine (And Iodine Containting Drugs) Drug allergy (disorder) [facility] (1 source) Ketorolac Drug Allergy [facility] (1 source) Plasmin Drug Allergy [facility] (3 sources) topiramate; Translations: [Topamax] Drug Allergy 013 [facility] (2 sources) Dhe Drug allergy (disorder) [facility] (2 sources) Cat/Feline Product Derivatives Drug allergy (disorder) [facility] (1 source) Iodine; Translations: [IODINE] Drug Allergy [facility] (1 source) CAT/FELINE PRODUCTS; Translations: [CAT/FELINE PRODUCTS] Propensity to adverse reactions to drug (disorder) 016 [facility] Medications Current Medications Medication Drug Class(es) [...] by mouth every six hours as needed tfhvntasgt-akpsxrjigucar-tzpigndz (DAISY CET, ESGIC) 50-325-40 MG per tablet [...] for 3 day(s), 15 tab(s), Refill(s) 0, [facility]/pharmacy #[id number], 165, cm, 07/13/23 11:34:00 EDT, [...] day(s), # 90 tab(s), Refills(s) 3, Pharmacy: [facility]/pharmacy #[id number], 165, cm, 02/21/25 13:35:00 EDT, [...] oral tablet (7 sources) alpha-Adrenergic Grabiel, beta-Adrenergic Grabile Start: 05-05-2024 take 1 tablet by mouth [...] procedure, # 2 cap(s), Refills(s) 0, Pharmacy: [facility]/pharmacy #[id number], 165, cm, 02/21/25 13:35:00 EDT, [...] administer the echo contrast. polyethylene glycol 3350 29974 mg powder for oral solution (1 source) [...] Care, After every IV line use, Starting [facility] 08/31/20 at 0353 Start: 08-30-2020 0.9 [...] 10 MIN PRN, High Blood Pressure, Starting [facility] 08/31/20 at 0353 Administer 10 mg [...] Coronary arteriosclerosis; Translations: [Atherosclerotic heart disease of [place] coronary artery without angina pectoris] Onset: 05-06-2012 [...] current use of drug therapy; Translations: [Other group home (current) drug therapy] Onset: 02-24-2023 Episodic Other aftercare (1 source) terminal gauger (current) use of insulin; Translations: [IMPLEMENTATION ANALYST CURRENT USE OF INSULIN] Onset: 04-16-2023 Episodic Other aftercare (1 source) Other group home (current) drug therapy; Translations: [OTH [facility] CURRENT [...] 2022 Episodic Other aftercare (1 source) terminal gauger (current) use of antithrombotics/anti platelets; Translations: [[facility] ANTITHROMBOT/ANTIPLA TLETS] Onset: 2022 Episodic Other aftercare (1 source) prison (current) use of aspirin; Translations: [[facility]I CURRENT USE OF ASPIRIN] Onset: 2022 Episodic Other aftercare (1 source) prison (current) use of oral hypoglycemic drugs; Translations: [IMPLEMENTATION ANALYST USE ORAL HYPOGLYCEMIC DX] Onset: 2022 Episodic [...] Arturo DOLAN MD Where: [facility] [address] [address]- You Need to Schedule the Following Appointments Follow Up with Arturo DOLAN MD, URL When: Where: [facility] [address], [place] [address]- Medications What How Much When Why Instructions [...] or antithromboti (more content not included)... Normal [facility] Urology Office/Clinic Noteon 08-26-2025 Urology Office/Clinic Note [...] Urology [address], [place] [address]- Additional Instructions: 1 yr with [facility] Patient Education Dietary Guidelines to Help Prevent Kidney Stones I, Francie Myers, personally scribed for Dr. Dolan on [...] Colonoscopy (03/18/2014), (more content not included)... Normal [facility] Comment on above: Result Comment: Elec tronically Signed By: Arturo DOLAN MD\.br\Date and Time Signed: 08/26/25 10:41 EDT\.br\Electronically Co-Signed By: Francie Myers\.br\Date and Time Co-Signed: 08/26/25 10:40 EDT Office Visiton 03-30-2025 Follow-up visit [id number] Sergio Avila 1955 F Date Provider Department Center 03/30/2025 [id number] PARDO CARD [facility] Family History Problem Relation Age of Onset No Known Problems Mother No Known Problems Father Family Status - Relation Status Age at Mother Father Level of Service:[address] [place] OFFICE/OUTPATIENT ESTABLISHED LOW MDM 20 MIN Normal [facility] Orders Onlyon 03-30-2025 Orders Only [id number] Sergio Avila 1955 F Date Provider Department [place] 03/30/2025 [id number] ACUNA BRITT [facility] Family History Problem Relation Age of Onset No Known Problems Mother No Known Problems Father Family Status - Relation Status Age at Mother Father Normal [facility] Main OR Intraoperative Recor don 02-22-2025 Main OR Intraoperative Record Main [place] Intraoperative Record IntraOp Document Type FTURO Summary Primary Physician: Arturo DOLAN MD Finalized Date/Time: 02/22/25 14:57:05 Pt. Name: JESSI AVILAO.B./Sex: 1955 Female Med Rec #: [id number] Physician: Arturo DOLAN MD Financial #: [id number] Pt. Type: O Room/Bed: / Admit/Disch: 02/22/25 13:01:25 - Institution: Case Times FTURO Entry 1 Patient Times In Room 02/22/25 14:41:00 Out Room 02/22/25 14:56:00 Procedure Times Start 02/22/25 14:50:00 Stop 02/22/25 14:53:00 Anesthesia Times Last Modified By: Eusebia Nathan 02/22/25 14:57:00 Case Attendance FTURO Entry 1 Entry 2 Entry 3 Case Attendee MAGDALENO PRADO, Eusebia Ferreira MEDICAL REPRESENTATIVE, Ashlee Estrada Role Performed Surgeon - Primary Road Freight Brake Coupler - Primary Scrub - Primary Time In [...] Signed By: Eusebia Nathan 02/22/25 14:57 Normal [facility] Main OR Preoperative Recordo n 02-22-2025 Main OR Preoperative Record Main OR Preoperative Record Holding Area Document Type FTURO Summary Primary Physician: Arturo DOLAN MD Finalized Date/Time: 02/22/25 14:39:57 Pt. Name: JESSI AVILA/Sex: 1955 Female Med Rec #: [id number] Physician: Arturo DOLAN MD Financial #: [id number] Pt. Type: O Room/Bed: / Admit/Disch: 02/22/25 [...] Complaints of Pain: No Skin Integrity Intact, Snyder, Warm, & Dry Vitals - EU Blood Pressure 127/79 Pulse 87 bpm Respirations 18 br/min SPO2 97 % Additional None RN Reviewed Yes Specimens Collected Last Modified By: Eusebia Nathan 02/22/25 14:39:56 Finalized By: Eusebia Nathan Document Signatures Signed By: Laurie Venegas LPN 02/22/25 14:18 Eusebia Nathan 02/22/25 14:39 Unfinalized History Date/Time Username Reason for Unfinalizing Freetext Reason for Unfinalizing 02/22/25 14:39 [id number] Adding Additional Data Normal [facility] Operative Reporton Operative Report Operative Report [...] urine. The Urethra was dilated to: 30 [place] w/ sounds. Devices Implanted: None. Removal: Cystoscope is removed, The patient tolerated it well. Postoperative Information Discharge: Patient is discharged home with antibiotic coverage, Follow up arranged. We discussed considering initiating estrogen cream. For now we will wait half a year and reevaluate.. Normal [facility] Comment on above: [...] Where: [facility] [address], [place] [address]- [phone] Medications What How Much When Why Instructions New allopurinol (allopurinol 300 mg Tab) 1 Tablets By Mouth Every day Kidney stones Duration: 90 Days Refills: 3 Pickup at [facility]/pharmacy #[id number] New doxycycline (doxycycline hyclate 100 mg Cap) 1 Capsules By Mouth Every day take one day before procedure and take one day after procedure Pickup at [facility]/pharmacy #[id number] Unchanged buPROPion (buPROPion 150 mg ER Tab) [...] Pharmacy Information (more content not included)... Normal [facility] Ambulatory Visit Summary Ambulatory Visit Summary JESSI [...] [facility] [address] , [place] [address]- [phone] Medications What How Much When Instructions Unchanged [...] rectum) Cerebral (more content not included)... Normal [facility] Urology Office/Clinic Noteon 02-21-2025 Urology Office/Clinic [...] 12/18/24 - 90% uric acid, 10% CaOx [place]. Metabolic workup completed 01/01/24 [facility]. CT AP wo con 04/21/24 TB - [...] MD, URL [facility] [address] [place] [address]- [phone] Additional Instructions: sched cysto/poss UD Patient Education [...] per rect (more content not included)... Normal [facility] Comment on above: Result Comment: Elec tronically Signed By: Arturo DOLAN MD\.br\Date and Time Signed: 02/21/25 14:06 EDT\.br\Electronically Co-Signed By: Karina Vaca\.br\Date and Time Co-Signed: 02/21/25 14:04 EDT POINT OF CARE GLUCOSEon 03-19 Glucose [Mass/Vol] 90 mg/dL Normal 74-106 [facility] Comment on above: Performed By: #### P OCGLUC #### [facility] [address] [address] [address] Win Ardon CARDIAC STRESS TESTon 2022 [...] reported nuclear myocardial perfusion imaging. Normal [facility] CBC AUTO DIFFon 04-01-2023 BASO # 0.1 103/ul Normal 0.0-0.1 [facility] Comment on above: Performed By: #### C BC #### [facility] [address] [address] [address] Win Ardon Basophils/100 WBC (Bld) 1.3 % Normal 0.2-2.0 [facility] Comment on above: Performed By: #### C BC #### [facility] [address] [place] [address] Dr. Win Ardon EO # 0.4 103/ul Normal 0.0-0.7 [facility] Comment on above: Performed By: #### C BC #### [facility] [address] [address] [address] Win Ardon Eosinophils/100 WBC (Bld) 4.1 % Normal 0.9-7.0 [facility] Comment on above: Performed By: #### C BC #### [facility] [address] [place] [address] Dr. Win Ardon Erythrocyte distribution width (RBC) [Ratio] 13.3 % Normal 11.0-15.0 [facility] Comment on above: Performed By: #### C BC #### [facility] [address] [place] [address] Dr. Win Ardon Hematocrit (Bld) [Volume fraction] 38.9 % Normal 36.0-48.0 [facility] Comment on above: Performed By: #### C BC #### [facility] [address] [place] [address] Dr. Win Ardon Hemoglobin (Bld) [Mass/Vol] 13.2 g/dL Normal 12.0-16.0 [facility] Comment on above: Performed By: #### C BC #### [facility] [address] [place] [address] Dr. Win Ardon IG # 0.04 10e3/ul Critically high 0.00-0.03 [facility] Comment on above: Performed By: #### C BC #### [facility] [address] [place] [address] Dr. Win Ardon IG % 0.4 % Normal 0.0-0.5 [facility] Comment on above: Performed By: #### C BC #### [facility] [address] [place] [address] Dr. Win Ardon LYMPH # 3.2 103/ul Normal 1.2-3.8 [facility] Comment on above: Performed By: #### C BC #### [facility] [address] [place] [address] Dr. Win Ardon Lymphocytes/100 WBC (Bld) 34.7 % Normal 20.5-60.0 [facility] Comment on above: Performed By: #### C BC #### [facility] [address] [place] [address] Dr. Win Ardon MANUAL DIFF REQ NO Normal [facility] Comment on above: Performed By: #### C BC #### [facility] [address] [place] [address] Dr. Win Ardon MCH (RBC) [Entitic mass] 31.3 pg Normal 26.7-34.0 [facility] Comment on above: Performed By: #### C BC #### [facility] [address] [place] [address] Dr. Win Ardon MCHC (RBC) [Mass/Vol] 33.9 g/dL Normal 29.9-35.2 [facility] Comment on above: Performed By: #### C BC #### [facility] [address] [place] [address] Dr. Win Ardon MCV (RBC) [Entitic vol] 92.2 fL Normal 81.0-99.0 [facility] Comment on above: Performed By: #### C BC #### [facility] [address] [place] [address] Dr. Win Ardon MONO # 0.7 103/ul Normal 0.3-0.8 [facility] Comment on above: Performed By: #### C BC #### [facility] [address] [place] [address] Dr. Win Ardon Monocytes/100 WBC (Bld) 7.1 % Normal 1.7-12.0 [facility] Comment on above: Performed By: #### C BC #### [facility] [address] [place] [address] Dr. Win Ardon NEUT # 4.9 103/ul Normal 1.4-6.5 [facility] Comment on above: Performed By: #### C BC #### [facility] [address] [place] [address] Dr. Win Ardon Neutrophils/100 WBC (Bld) 52.4 % Normal 43.0-75.0 [facility] Comment on above: Performed By: #### C BC #### [facility] [address] [place] [address] Dr. Win Ardon Platelet mean volume (Bld) [Entitic vol] 10.6 fL Normal 9.5-13.5 [facility] Comment on above: Performed By: #### C BC #### [facility] [address] [place] [address] Dr. Win Ardon PLT 231 103/ul Normal 150-450 [facility] Comment on above: Performed By: #### C BC #### [facility] [address] [place] [address] Dr. Win Ardon RBC 4.22 106/ul Normal 4.20-5.40 [facility] Comment on above: Performed By: #### C BC #### [facility] [address] [place] [address] Dr. Win Ardon WBC 9.3 103/ul Normal 4.0-11.0 [facility] Comment on above: Performed By: #### C BC #### [facility] [address] [place] [address] ABD/PELVIS WO CONon [...] by: LISSETT ALAN Date: 2023-04-01 20:03 Normal [facility] LACTATE/LACTIC ACIDon 2022 Lactate [Moles/Vol] 1.2 mmol/L Normal 0.4-2.0 [facility] Comment on above: Performed By: #### L ACT #### [facility] [address] [place] [address] Dr. Win Ardon NM STRESS/REST MULTIon 04-01 NM STRESS/REST MULTI Patient: JESSI AVILA Exam Date: 04/01/2023 : 1955 Gender:F Ordering : MRS. JONO LOPEZ NATALEE Admission #: [id number] Family : SHAIKH Aroldo HERNANDEZ . Order #: [id number] CLICK HERE TO VIEW EXAM RADIOLOGY REPORT [...] Clark M.D. on 04/02/2023 at 11:10 Normal [facility] OCC BLD IMMUNO SCREENon 03-17 OCCULT BLOOD Positive Abnormal NEGATIVE [facility] Comment on above: Performed By: #### O BSCRN #### [facility] [address] [place], [place] [address] Dr. Win Ardon PROF 14(COMP METB)on 023 Albumin [Mass/Vol] 3.8 g/dL Normal 3.4-5.0 [facility] Comment on above: Performed By: #### C MP ####[facility] [address] [id number]. Win Ardon Albumin/Globulin [Mass ratio] 1.1 {ratio} Normal [facility] Comment on above: Performed By: #### C MP ####[facility] [address] [place], [place] [address]CwDr. Win Ardon ALP [Catalytic activity/Vol] 99 U/L Normal 46-116 [facility] Comment on above: Performed By: #### C MP ####[facility] [address] [address]Dr. Win Ardon ALT [Catalytic activity/Vol] 17 U/L Normal 14-59 [facility] Comment on above: Performed By: #### C MP ####[facility] [address] [id number]. Win Ardon Anion gap [Moles/Vol] 13.4 mmol/L Normal [facility] Comment on above: Performed By: #### C MP ####[facility] [address] [id number]. Win Ardon AST [Catalytic activity/Vol] 11 U/L Critically low 15-37 [facility] Comment on above: Performed By: #### C MP ####[facility] [address] [address]Dr. Win Duglas Bilirubin [Mass/Vol] 0.6 mg/dL Normal 0.2-1.0 [facility] Comment on above: Performed By: #### C MP ####[facility] [address] [place], [place] [address]Dr. Win Duglas Calcium [Mass/Vol] 9.1 mg/dL Normal 8.5-10.1 [facility] Comment on above: Performed By: #### C MP ####[facility] [address] [place], [place] [address]Dr. Win Duglas Chloride [Moles/Vol] 106 mmol/L Normal 98-107 [facility] Comment on above: Performed By: #### C MP ####[facility] [address] [address]Dr. Win Ardon CO2 [Moles/Vol] 29.2 mmol/L Normal 21.0-32.0 [facility] Comment on above: Performed By: #### C MP ####[facility] [address] [address]Dr. Claudiaaida Ardno Creatinine [Mass/Vol] 0.95 mg/dL Normal 0.55-1.02 [facility] Comment on above: Performed By: #### C MP ####[facility] [address] [id number]. Win Ardon EGFR-AF EGYPTIAN >60 Normal >=60 [facility] Comment on above: Performed By: #### C MP ####[facility] [address] [id number]. Win Ardon EGFR-NON AF EGYPTIAN 59 mL/min/1.73m2 Critically low >=60 [facility] Comment on above: Performed By: #### C MP ####[facility] [address] [phone]. Win Ardon Globulin (S) [Mass/Vol] 3.4 g/dL Normal [facility] Comment on above: Performed By: #### C MP ####[facility] [address] [address]Dr. Win Duglas Glucose [Mass/Vol] 162 mg/dL Critically high 74-106 [facility] Comment on above: Performed By: #### C MP ####[facility] [address] [address]Dr. Win Ardon Potassium [Moles/Vol] 3.6 mmol/L Normal 3.5-5.1 [facility] Comment on above: Performed By: #### C MP ####[facility] [address] [address]Dr. Win Duglas Protein [Mass/Vol] 7.2 g/dL Normal 6.4-8.2 [facility] Comment on above: Performed By: #### C MP ####[facility] [address] [address]Dr. Win Ardon Sodium [Moles/Vol] 145 mmol/L Normal 136-145 [facility] Comment on above: Performed By: #### C MP ####[facility] [address] [address]Dr. Win Ardon Urea nitrogen [Mass/Vol] 14.0 mg/dL Normal 7.0-18.0 [facility] Comment on above: Performed By: #### C MP ####[facility] [address] [place], [place] [address]Dr. Win Ardon Urea nitrogen/Creatinine [Mass ratio] 14.7 mg/mg Normal [facility] Comment on above: Performed By: #### C MP ####[facility] [address] [place], [place] [address]Dr. Win Ardon PROTIMEon 04-01-2023 INR Coag (PPP) [Relative time] 1.02 {INR} Normal [facility] Comment on above: Performed By: #### P TT, PT ####[facility] [address] [place], [place] [address]Dr. Win Ardon INR GUIDELINES SEE BELOW Normal [facility] Comment on above: Result Comment: MAGDA RED INR: 2.0 - 3.0 CONDITIONS NOT LISTED BELOW 2.5 - 3.5 FOR PROSTHETIC HEART VALVE REPLACEMENT 2.5 - 3.5 RECURRENT THROMBOSIS Performed By: #### P TT, PT ####[facility] [address] [place], [place] [address]Dr. Win Ardon PT Coag (PPP) [Time] 10.8 s Normal 9.0-11.6 [facility] Comment on above: Performed By: #### P TT, PT ####[facility] [address] [place], [place] [address]Dr. Win Ardon PTTon 04-01-2023 aPTT Coag (Bld) [Time] 26.5 s Normal 22.3-36.2 [facility] Comment on above: Performed By: #### P TT, PT ####[facility] [address] [place], [place] [address]Dr. Win Ardon TYPE AND SCREENon 04-01-2023 TYPE AND SCREEN Negative Normal [facility] Comment on above: Performed By: #### T NS ####[facility] [address] [place], [place] [address]Dr. Win Ardon CBC AUTO DIFFon 03-24-2023 BASO # 0.1 103/ul Normal 0.0-0.1 [facility] Comment on above: Performed By: #### C BC ####[facility] [address] [id number]. Win Ardon Basophils/100 WBC (Bld) 1.0 % Normal 0.2-2.0 [facility] Comment on above: Performed By: #### C BC ####[facility] [address] [id number]. Win Ardon EO # 0.3 103/ul Normal 0.0-0.7 [facility] Comment on above: Performed By: #### C BC ####[facility] [address] [place], [place] [id number]. Win Ardon Eosinophils/100 WBC (Bld) 3.3 % Normal 0.9-7.0 [facility] Comment on above: Performed By: #### C BC ####[facility] [address] [place], [place] [address]Dr. Win Ardon Erythrocyte distribution width (RBC) [Ratio] 13.2 % Normal 11.0-15.0 [facility] Comment on above: Performed By: #### C BC ####[facility] [address] [place], [place] [address]Dr. Win Ardon Hematocrit (Bld) [Volume fraction] 41.3 % Normal 36.0-48.0 [facility] Comment on above: Performed By: #### C BC ####[facility] [address] [place], [place] [id number]. Win Ardon Hemoglobin (Bld) [Mass/Vol] 13.6 g/dL Normal 12.0-16.0 [facility] Comment on above: Performed By: #### C BC ####[facility] [address] [place], [place] [address]Dr. Win Ardon IG # 0.04 10e3/ul Critically high 0.00-0.03 [facility] Comment on above: Performed By: #### C BC ####[facility] [address] [place], [place] [address]Dr. Win Ardon IG % 0.4 % Normal 0.0-0.5 [facility] Comment on above: Performed By: #### C BC ####[facility] [address] [id number]. Win Ardon LYMPH # 2.2 103/ul Normal 1.2-3.8 [facility] [facility] Comment on above: Performed By: #### C BC ####[facility] [address] [place] [id number]. Win Duglas Lymphocytes/100 WBC (Bld) 23.8 % Normal 20.5-60.0 [facility] Comment on above: Performed By: #### C BC ####[facility] [address] [place] [address]Dr. Claudiaaida Ardon MANUAL DIFF REQ NO Normal [facility] Comment on above: Performed By: #### C BC ####[facility] [address] [place], [place] [address]Dr. Win Duglas MCH (RBC) [Entitic mass] 30.6 pg Normal 26.7-34.0 [facility] Comment on above: Performed By: #### C BC ####[facility] [address] [place], [place] [address]Dr. Win Ardon MCHC (RBC) [Mass/Vol] 32.9 g/dL Normal 29.9-35.2 [facility] Comment on above: Performed By: #### C BC ####[facility] [address] [place] [address]Dr. Win Duglas MCV (RBC) [Entitic vol] 93.0 fL Normal 81.0-99.0 [facility] Comment on above: Performed By: #### C BC ####[facility] [address] [place], [place] [id number]. Win Ardon MONO # 0.7 103/ul Normal 0.3-0.8 [facility] Comment on above: Performed By: #### C BC ####[facility] [address] [place], [place] [id number]. Win Duglas Monocytes/100 WBC (Bld) 7.3 % Normal 1.7-12.0 [facility] Comment on above: Performed By: #### C BC ####[facility] [address] [place], [place] [address]Jg. Win Ardon NEUT # 5.8 103/ul Normal 1.4-6.5 [facility] Comment on above: Performed By: #### C BC ####[facility] [address] [place], [place] [address]Rb. Win Ardon Neutrophils/100 WBC (Bld) 64.2 % Normal 43.0-75.0 [facility] Comment on above: Performed By: #### C BC ####[facility] [address] [place] [id number]. Win Ardon Platelet mean volume (Bld) [Entitic vol] 11.0 fL Normal 9.5-13.5 [facility] Comment on above: Performed By: #### C BC ####[facility] [address] [place] [id number]. Win Ardon PLT 243 103/ul Normal 150-450 [facility] Comment on above: Performed By: #### C BC ####[facility] [address] [place], [place] [address]Sj. Win Ardon RBC 4.44 106/ul Normal 4.20-5.40 [facility] Comment on above: Performed By: #### C BC ####[facility] [address] [place] [id number]. Win Ardon WBC 9.1 103/ul Normal 4.0-11.0 [facility] Comment on above: Performed By: #### C BC ####[facility] [address] [place] [id number] Ardon LIPID PROFILEon 03-24-2023 CHOL-HDL RATIO NORM SEE BELOW Normal [facility] Comment on above: Result Comment: 3.3 - 4.4 LOW RISK 4.4 - 7.1 AVERAGE RISK 7.1 - 11.0 MODERATE RISK >11.0 HIGH RISK Performed By: #### C MP, LIPID #### [facility] [address] [place], [place] [address] Dr. Win Ardon Cholesterol [Mass/Vol] 99 mg/dL Normal <=200 [facility] Comment on above: Performed By: #### C MP, LIPID #### [facility] [address] [place] [address] [address] Win Ardon Cholesterol in HDL [Mass/Vol] 34 mg/dL Critically low 40-60 [facility] Comment on above: Performed By: #### C MP, LIPID #### [facility] [address] [place] [address] [address] Win Ardon Cholesterol in LDL [Mass/Vol] 35.8 mg/dL Normal [facility] Comment on above: Performed By: #### C MP, LIPID #### [facility] [address] [place] [address] [address] Win Ardon Cholesterol.total/Ch olesterol in HDL [Mass ratio] 2.9 {ratio} Normal [facility] Comment on above: Performed By: #### C MP, LIPID #### [facility] [address] [place] [address] Dr. Win Ardon HDL NORMAL > or = 60 mg/dl - LO W CARDIOVASCULAR RISK <40 mg/dl - HIGH CARDIOVASCULAR RISK Normal [facility] Comment on above: Performed By: #### C MP, LIPID #### [facility] [address] [place] [address] Dr. Win Ardon LDL CALC NORMAL SEE BELOW Normal [facility] Comment on above: Result Comment: <100 mg/dl OPTIMAL 100 - 129 mg/dl NEAR OR ABOVE OPTIMAL 130 - 159 mg/dl BORDERLINE HIGH 160 - 189 mg/dl HIGH >190 mg/dl VERY HIGH Performed By: #### C MP, LIPID #### [facility] [address] [place] [address] Dr. Win Ardon Triglyceride [Mass/Vol] 146 mg/dL Normal <=150 [facility] Comment on above: Performed By: #### C MP, LIPID #### [facility] [address] [place] [address] Dr. Win Ardon VLDL CALC 29.2 mg/dL Normal [facility] Comment on above: Performed By: #### C MP, LIPID #### [facility] [address] [place], [place] [id number] Dr. Win Ardon PROF 14(COMP METB)on 023 Albumin [Mass/Vol] 3.9 g/dL Normal 3.4-5.0 [facility] Comment on above: Performed By: #### C MP, LIPID #### [facility] [address] [place] [address] [address] Win Ardon Albumin/Globulin [Mass ratio] 1.1 {ratio} Normal [facility] Comment on above: Performed By: #### C MP, LIPID #### [facility] [address] [place] [address] [address] Win Ardon ALP [Catalytic activity/Vol] 96 U/L Normal 46-116 [facility] Comment on above: Performed By: #### C MP, LIPID #### [facility] [address] [place] [address] Dr. Win Ardon ALT [Catalytic activity/Vol] 15 U/L Normal 14-59 [facility] Comment on above: Performed By: #### C MP, LIPID #### [facility] [address] [place] [address] Dr. Win Ardon Anion gap [Moles/Vol] 12.1 mmol/L Normal [facility] Comment on above: Performed By: #### C MP, LIPID #### [facility] [address] [place] [address] Dr. Win Ardon AST [Catalytic activity/Vol] 10 U/L Critically low 15-37 [facility] Comment on above: Performed By: #### C MP, LIPID #### [facility] [address] [place] [address] Dr. Win Ardon Bilirubin [Mass/Vol] 0.8 mg/dL Normal 0.2-1.0 [facility] Comment on above: Performed By: #### C MP, LIPID #### [facility] [address] [place] [address] Dr. Win Ardon Calcium [Mass/Vol] 9.1 mg/dL Normal 8.5-10.1 [facility] Comment on above: Performed By: #### C MP, LIPID #### [facility] [address] [place] [address] [address] Win Ardon Chloride [Moles/Vol] 102 mmol/L Normal 98-107 [facility] Comment on above: Performed By: #### C MP, LIPID #### [facility] [address] [place] [address] [address] Win Ardon CO2 [Moles/Vol] 26.0 mmol/L Normal 21.0-32.0 [facility] Comment on above: Performed By: #### C MP, LIPID #### [facility] [address] [place] [address] [address] Win Ardon Creatinine [Mass/Vol] 0.95 mg/dL Normal 0.55-1.02 [facility] Comment on above: Performed By: #### C MP, LIPID #### [facility] [address] [place] [address] Dr. Win Ardon EGFR-AF EGYPTIAN >60 Normal >=60 [facility] Comment on above: Performed By: #### C MP, LIPID #### [facility] [address] [place] [address] [address] Win Ardon EGFR-NON AF EGYPTIAN 59 mL/min/1.73m2 Critically low >=60 [facility] Comment on above: Performed By: #### C MP, LIPID #### [facility] [address] [place] [address] [address] Win Ardon Globulin (S) [Mass/Vol] 3.7 g/dL Normal [facility] Comment on above: Performed By: #### C MP, LIPID #### [facility] [address] [place] [address] [address] Win Ardon Glucose [Mass/Vol] 336 mg/dL Critically high 74-106 [facility] Comment on above: Performed By: #### C MP, LIPID #### [facility] [address] [place] [address] [address] Win Ardon Potassium [Moles/Vol] 4.1 mmol/L Normal 3.5-5.1 [facility] Comment on above: Performed By: #### C MP, LIPID #### [facility] [address] [place], [place] [address] Dr. Win Ardon Protein [Mass/Vol] 7.6 g/dL Normal 6.4-8.2 [facility] Comment on above: Performed By: #### C MP, LIPID #### [facility] [address] [place], [place] [address] Dr. Win Ardon Sodium [Moles/Vol] 136 mmol/L Normal 136-145 [facility] Comment on above: Performed By: #### C MP, LIPID #### [facility] [address] [place], [place] [address] Dr. Win Ardon Urea nitrogen [Mass/Vol] 10.0 mg/dL Normal 7.0-18.0 [facility] Comment on above: Performed By: #### C MP, LIPID #### [facility] [address] [place], [place] [address] Dr. Win Ardon Urea nitrogen/Creatinine [Mass ratio] 10.5 mg/mg Normal [facility] Comment on above: Performed By: #### C MP, LIPID #### [facility] [address] [place], [place] [address] Dr. Win Ardon CHEMISTRYOrdered By: Lab ROP User on 02-24-2023 Glucose [Mass/Vol] 144 mg/dL High 55 - 99 mg/dL [facility] POC Subsection Comment on above: Result Comment: Edilia arleth Meter POC Device SN [id number] Invalid Interpretation Code [facility] POC Subsection POC User ID [id number] Invalid Interpretation Code [facility] POC Subsection POC Username KRISTI MADDEN Invalid Interpretation Code [facility] POC Subsection Glucose [Mass/Vol] 76 mg/dL Normal 55 - 99 mg/dL [facility] POC Subsection Comment on above: Result Comment: Edilia arleth Meter POC Device SN [id number] Invalid Interpretation Code [facility] POC Subsection POC User ID [id number] Invalid Interpretation Code [facility] POC Subsection POC Username KRISTI MADDEN Invalid Interpretation Code [facility] POC Subsection CHEMISTRYOrdered By: SYSTEM SYSTEM on 02-24-2023 Potassium [Moles/Vol] 3.7 mmol/L Normal 3.5 - 5.3 mmol/L [facility] Remisol Anion gap [Moles/Vol] 8 mmol/L Normal [...] Interpretation Code Negative [facility] UA Auto SS [place].plasma/Lithi um.RBC (Bld) [Mass ratio] 21-30 /HPF Invalid [...] [facility] UA Auto SS Urobilinogen Qn (U) [id number] {John'U}/dL Normal 0.0 - 1.0 EU/dL [facility] [...] spec) Not detected Normal NOT DETECTED [facility] Comment on above: Result Comment: This test is not yet approved or cleared by the [place] FDA. When there are no FDA-approved or cleared tests available, and other criteria are met, FDA can make tests available under an emergency access mechanism called an Emergency Use Authorization (EUA). The EUA for this test is supported by the [place] of Health and Human Service's (HHS's) declaration [...] SARS-CoV-2. Performed By: #### C VDTB #### [facility] [address] [place] [address] Dr. Win Ardon SYMPTOMATIC COVID-19 ANTIGEN on 02-14-2023 EUA Statement SEE BELOW Normal [facility] Comment on above: Result Comment: This [...] sooner. Performed By: #### C VDAGS #### [facility] [address] [place], [place] [address] Dr. Win Ardon SARS-CoV-2 (COVID-19) RNA OSVALDO+probe Ql (Unsp spec) Negative Normal NEGATIVE [facility] Comment on above: Performed By: #### C VDAGS #### [facility] [address] [place], [place] [address] Dr. Win Ardon XR KNEE RT 4V [...] MIKAEL GUZMAN Date: 2022-10-05 19:58 Normal [facility] Creatinine (Bld) [Mass/Vol]O rdered By: Ese Tan on 02-18-2022 Creatinine [Mass/Vol] 0.8 mg/dL 0.6-1.3 [facility] Comment on above: ER/ESD physician is notified/shown all ISTAT results.Critical values may be confirmed by laboratory testing ifdeemed necessary by ER attending doctor. No Panel InformationOrdered By: Ese Tan on 02-18-2022 POC Estimated GFR > 60 [facility] Comment on above: GFR estimated refere nce range: According to KDOQI guidelines, <60 ml/min/1.73m2 is sufficient to diagnose a patient with chronic kidney disease. POC Estimated GFR Non- Amer > 60 [facility] Cardiovascular Lab Reporton 03-22-2021 Cardiovascular Lab Report [facility] MR #: [id number] Department of Physician: Radha Carter M.D. Division of Service Date: 03/21/2021 Cardiology Birthdate: 1955 Adult Cardiovascular Room #: [facility] [address] [facility]. [place] [address] Cardiovascular Laboratory Report FINAL IMPRESSIONS: 1. 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 2. Patent stent in the second diagonal branch of the left anterior descending coronary artery with [id number] in-stent restenosis. 3. Otherwise, nonobstructive coronary arteries [...] bilateral selective coronary angiography, placement of a 6-Kittitian MynxGrip closure device. METHODS: After risks, benefits, and alternatives were explained, written informed consent was obtained. The patient was prepped and draped in the usual sterile fashion over the right groin. Using 1% lidocaine solution, local infiltration anesthesia was achieved. Using a modified Seldinger technique, a micropuncture kit, an ultrasound guidance access to the right common femoral vein and artery was obtained. A 6-Kittitian x 11 cm sheath were placed in each. Limited femoral angiography was performed via the micropuncture kit prior to upsizing through the 6-Kittitian sheath in the artery. A Cazares catheter [...] the procedure. All catheters were removed. A 6-Kittitian MynxGrip closure device was deployed per protocol [...] Pardo M.D. Date Trans: 03/22/2021 05:11 Sean/yoel [id number] cc: Alexia Miranda, MSN, [employer]CHNICIAN-C Department Of Surgery [address] [facility] [address] Robin Ponce M.D. [place] [id number] [facility] [place] [address] Normal [facility] Basic Metab w/rfx MGon 09-01 (cont.) Normal [facility] Comment on above: Result Comment: Aver age GFR for 60-69 years old: 85 mL/min/1.73sq m Chronic Kidney Disease: <60 mL/min/1.73sq m Kidney failure: <15 mL/min/1.73sq m eGFR calculated using average adult body mass. Additional eGFR calculator available at: http://www.[employer]/multiple_crcl_2012.htm Performed By: #### E RTPF #### [address] [address] Portal Architect: Dheeraj Garcia MD Anion gap [Moles/Vol] 13 mmol/L Normal 9-17 [facility] Comment on above: Performed By: #### E RTPF #### [address] [address] Portal Architect: Dheeraj Garcia MD Calcium [Mass/Vol] 8.8 mg/dL Normal 8.6-10.4 [facility] Comment on above: Performed By: #### E RTPF #### [address] [address] Portal Architect: Dheeraj Garcia MD Chloride [Moles/Vol] 106 mmol/L Normal 98-107 [facility] Comment on above: Performed By: #### E RTPF #### [address] [address] Portal Architect: Dheeraj Garcia MD CO2 [Moles/Vol] 21 mmol/L Normal 20-31 [facility] Comment on above: Performed By: #### E RTPF #### [address] [address] Portal Architect: Dheeraj Garcia MD Creatinine [Mass/Vol] 0.53 mg/dL Normal 0.50-0.90 [facility] Comment on above: Performed By: #### E RTPF #### [address] [address] Portal Architect: Dheeraj Garcia MD GFR, Amer >60 Normal >60 [facility] Comment on above: Performed By: #### E RTPF #### [address] [address] Portal Architect: Dheeraj Garcia MD GFR,non Amer >60 Normal >60 [facility] Comment on above: Performed By: #### E RTPF #### [address] [address] Portal Architect: Dheeraj Garcia MD Glucose [Mass/Vol] 169 mg/dL High 70-99 [facility] Comment on above: Performed By: #### E RTPF #### [address] [address] Portal Architect: Dheeraj Garcia MD Potassium [Moles/Vol] 4.0 mmol/L Normal 3.7-5.3 [facility] Comment on above: Performed By: #### E RTPF #### [address] [address] Portal Architect: Dheeraj Garcia MD Sodium [Moles/Vol] 140 mmol/L Normal 135-144 [facility] Comment on above: Performed By: #### E RTPF #### [address] [address] Portal Architect: Dheeraj Garcia MD Urea nitrogen [Mass/Vol] 10 mg/dL Normal 8-23 [facility] Comment on above: Performed By: #### E RTPF #### [address] [address] Portal Architect: Dheeraj Garcia MD BUN/CRE Ratio NOT REPORTED Normal 9-20 [facility] Comment on above: Performed By: #### E RTPF #### [address] [address] Portal Architect: Dheeraj Garcia MD Staging: NOT REPORTED Normal [facility] Comment on above: Performed By: #### E RTPF #### [facility] [address] [place] [id number] Portal Architect: Dheeraj Garcia MD Basic Metabolic Panel w/ Ref martín to MGon 09-01-2020 Anion gap [Moles/Vol] 13 mmol/L 9 - 17 mmol/L [place] Bun/Cre Ratio NOT REPORTED [place] Calcium [Mass/Vol] 8.8 mg/dL 8.6 - 10. 4 mg/dL [place] Chloride [Moles/Vol] 106 mmol/L 98 - 10 7 mmol/L [place] CO2 [Moles/Vol] 21 mmol/L 20 - 31 mmol/L [place] Creatinine [Mass/Vol] 0.53 mg/dL 0.5 - 0.9 mg/dL [place] GFR >60 >60 mL/min [place] GFR Non- >60 >60 mL/min [place] GFR/1.73 sq M predicted among non-blacks MDRD (S/P/Bld) [Vol rate/Area] [place] Comment on above: Average GFR for 60-6 9 years old: 85 mL/min/1.73sq m Chronic Kidney Disease: <60 mL/min/1.73sq m Kidney failure: <15 mL/min/1.73sq m eGFR calculated using average adult body mass. Additional eGFR calculator available at: http://www.[employer]/multiple_crcl_2012.htm GFR/1.73 sq M predicted among non-blacks MDRD (S/P/Bld) [Vol rate/Area] NOT REPORTED [place] Glucose [Mass/Vol] 169 mg/dL High 70 - 99 mg/dL [place] Interpretation and review of laboratory results Abnormal [place] Potassium [Moles/Vol] 4.0 mmol/L 3.7 - 5.3 mmol/L [place] Sodium [Moles/Vol] 140 mmol/L 135 - 144 mmol/L [place] Urea nitrogen [Mass/Vol] 10 mg/dL 8 - 23 mg/dL [place] CBC auto differentialon 08-17 Basophils (Bld) [#/Vol] 0.10 10*3/uL [place] Basophils/100 WBC (Bld) 1 % 0 - 2 % [place] Differential Type NOT REPORTED [place] Eosinophils (Bld) [#/Vol] 0.25 10*3/uL [place] Eosinophils/100 WBC (Bld) 3 % 1 - 4 % [place] Erythrocyte distribution width (RBC) [Ratio] 14.0 % 11.8 - 14.4 % [place] Hematocrit (Bld) [Volume fraction] 40.7 % 36.3 - 47.1 % [place] Hemoglobin (Bld) [Mass/Vol] 12.7 g/dL 11.9 - 15.1 g/dL [place] Immature granulocytes (Bld) [#/Vol] 0.06 10*3/uL [place] Immature granulocytes (Bld) [#/Vol] 1 % High 0 [place] Interpretation and review of laboratory results Abnormal [place] Lymphocytes (Bld) [#/Vol] 2.12 10*3/uL [place] Lymphocytes/100 WBC (Bld) 23 % Low 24 - 43 % [place] MCH (RBC) [Entitic mass] 28.1 pg 25.2 - 33.5 pg [place] MCHC (RBC) [Mass/Vol] 31.2 g/dL 28.4 - 34.8 g/dL [place] MCV (RBC) [Entitic vol] 90.0 fL 82.6 - 102.9 fL [place] Monocytes (Bld) [#/Vol] 0.68 10*3/uL [place] Monocytes/100 WBC (Bld) 7 % 3 - 12 % [place] Platelet mean volume (Bld) [Entitic vol] 10.6 fL 8.1 - 13.5 fL [place] Platelets (Bld) [#/Vol] NOT REPORTED [place] Platelets (Bld) [#/Vol] 251 10*3/uL [place] RBC (Bld) [#/Vol] 4.52 10*6/uL 3.95 - 5.11 m/uL [place] RBC morphology finding Nom (Bld) NOT REPORTED [place] Segmented neutrophils/100 WBC (Bld) 65 % 36 - 65 % [place] Segs Absolute 6.18 [place] WBC (Bld) [#/Vol] 0.0 10*3/uL 0.0 per 100 WBC [place] WBC (Bld) [#/Vol] 9.4 10*3/uL [place] WBC Morphology NOT REPORTED [place] CBC with Diffon 09-01-2020 Abs. Basophil 0.10 k/uL Normal 0.00-0.20 [facility] Comment on above: Performed By: #### C DP, HCG, ALCB, BMPX, LIPR, GLYHGB #### [facility] [address] [place], [place] [id number] Portal Architect: Dheeraj Garcia MD Abs.Imm.Granulocyte 0.06 k/uL Normal 0.00-0.30 [facility] Comment on above: Performed By: #### C DP, HCG, ALCB, BMPX, LIPR, GLYHGB #### [facility] [address] [place] [id number] Portal Architect: Dheeraj Garcia MD Abs.Neutrophil (Seg) 6.18 k/uL Normal 1.50-8.10 [facility] Comment on above: Performed By: #### C DP, HCG, ALCB, BMPX, LIPR, GLYHGB #### [facility] [address] [place] [address] [id number] Portal Architect: Dheeraj Garcia MD Basophils/100 WBC (Bld) 1 % Normal 0-2 [facility] Comment on above: Performed By: #### C DP, HCG, ALCB, BMPX, LIPR, GLYHGB #### [address] [address] Portal Architect: Dheeraj Garcia MD Eosinophils (Bld) [#/Vol] 0.25 10*3/uL Normal 0.00-0.44 [facility] Comment on above: Performed By: #### C DP, HCG, ALCB, BMPX, LIPR, GLYHGB #### [place] [id number] Portal Architect: Dheeraj Garcia MD Eosinophils/100 WBC (Bld) 3 % Normal 1-4 [facility] Comment on above: Performed By: #### C DP, HCG, ALCB, BMPX, LIPR, GLYHGB #### [place] [id number] Portal Architect: Dheeraj Garcia MD Erythrocyte distribution width (RBC) [Ratio] 14.0 % Normal 11.8-14.4 [facility] Comment on above: Performed By: #### C DP, HCG, ALCB, BMPX, LIPR, GLYHGB #### [place] [id number] Portal Architect: Dheeraj Garcia MD Hematocrit (Bld) [Volume fraction] 40.7 % Normal 36.3-47.1 [facility] Comment on above: Performed By: #### C DP, HCG, ALCB, BMPX, LIPR, GLYHGB #### [facility] [address] [place] [address] Portal Architect: Dheeraj Garcia MD Hemoglobin (Bld) [Mass/Vol] 12.7 g/dL Normal 11.9-15.1 [facility] Comment on above: Performed By: #### C DP, HCG, ALCB, BMPX, LIPR, GLYHGB #### [address] [address] Portal Architect: Dheeraj Garcia MD Immature granulocytes (Bld) [#/Vol] 1 % High 0 [facility] Comment on above: Performed By: #### C DP, HCG, ALCB, BMPX, LIPR, GLYHGB #### [address] [address] Portal Architect: Dheeraj Garcia MD Lymphocytes (Bld) [#/Vol] 2.12 10*3/uL Normal 1.10-3.70 [facility] Comment on above: Performed By: #### C DP, HCG, ALCB, BMPX, LIPR, GLYHGB #### [address] [address] Portal Architect: Dheeraj Garcia MD Lymphocytes/100 WBC (Bld) 23 % Low 24-43 [facility] Comment on above: Performed By: #### C DP, HCG, ALCB, BMPX, LIPR, GLYHGB #### [address] [address] Portal Architect: Dheeraj Garcia MD MCH (RBC) [Entitic mass] 28.1 pg Normal 25.2-33.5 [facility] Comment on above: Performed By: #### C DP, HCG, ALCB, BMPX, LIPR, GLYHGB #### [facility] [address] [place] [address] Portal Architect: Dheeraj Garcia MD MCHC (RBC) [Mass/Vol] 31.2 g/dL Normal 28.4-34.8 [facility] Comment on above: Performed By: #### C DP, HCG, ALCB, BMPX, LIPR, GLYHGB #### [facility] [address] [place] [address] Portal Architect: Dheeraj Garcia MD MCV (RBC) [Entitic vol] 90.0 fL Normal 82.6-102.9 [facility] Comment on above: Performed By: #### C DP, HCG, ALCB, BMPX, LIPR, GLYHGB #### [address] [address] Portal Architect: Dheeraj Garcia MD Monocytes (Bld) [#/Vol] 0.68 10*3/uL Normal 0.10-1.20 [facility] Comment on above: Performed By: #### C DP, HCG, ALCB, BMPX, LIPR, GLYHGB #### [address] [address] Portal Architect: Dheeraj Garcia MD Monocytes/100 WBC (Bld) 7 % Normal 3-12 [facility] Comment on above: Performed By: #### C DP, HCG, ALCB, BMPX, LIPR, GLYHGB #### [place] [id number] Portal Architect: Dheeraj Garcia MD Neutrophil (Seg) 65 % Normal 36-65 [facility] Comment on above: Performed By: #### C DP, HCG, ALCB, BMPX, LIPR, GLYHGB #### [address] [address] Portal Architect: Dheeraj Garcia MD NRBC Automated 0.0 per 100 WBC Normal 0.0 [facility] Comment on above: Performed By: #### C DP, HCG, ALCB, BMPX, LIPR, GLYHGB #### [address] [address] Portal Architect: Dheeraj Garcia MD Platelet mean volume (Bld) [Entitic vol] 10.6 fL Normal 8.1-13.5 [facility] Comment on above: Performed By: #### C DP, HCG, ALCB, BMPX, LIPR, GLYHGB #### [address] [address] Portal Architect: Dheeraj Garcia MD Platelets (Bld) [#/Vol] 251 10*3/uL Normal 138-453 [facility] Comment on above: Performed By: #### C DP, HCG, ALCB, BMPX, LIPR, GLYHGB #### [address] [address] Portal Architect: Dheeraj Garcia MD RBC (Bld) [#/Vol] 4.52 10*6/uL Normal 3.95-5.11 [facility] Comment on above: Performed By: #### C DP, HCG, ALCB, BMPX, LIPR, GLYHGB #### [address] [address] Portal Architect: Dheeraj Garcia MD WBC (Bld) [#/Vol] 9.4 10*3/uL Normal 3.5-11.3 [facility] Comment on above: Performed By: #### C DP, HCG, ALCB, BMPX, LIPR, GLYHGB #### [address] [address] Portal Architect: Dheeraj Garcia MD Auto Diff Performed NOT REPORTED Normal [facility] Comment on above: Performed By: #### C DP, HCG, ALCB, BMPX, LIPR, GLYHGB #### [address] [address] Portal Architect: Dheeraj Garcia MD Platelets (Bld) [#/Vol] NOT REPORTED Normal [facility] Comment on above: Performed By: #### C DP, HCG, ALCB, BMPX, LIPR, GLYHGB #### [address] [address] Portal Architect: Dheeraj Garcia MD RBC morphology finding Nom (Bld) NOT REPORTED Normal [facility] Comment on above: Performed By: #### C DP, HCG, ALCB, BMPX, LIPR, GLYHGB #### [facility] [address] [place], [place] [id number] Portal Architect: Dheeraj Garcia MD WBC Morphology NOT REPORTED Normal [facility] Comment on above: Performed By: #### C DP, HCG, ALCB, BMPX, LIPR, GLYHGB #### [facility] [address] [place] [address] Portal Architect: Dheeraj Garcia MD Echo Completeon 09-01-2020 [facility] Incoming C ardio Results From Cpacs/Ge - 09/01/2020 3:37 PM EDT Transthoracic Echocardiography Report (TTE) Patient Name DENDINGER Date of Study 09/01/2020 JESSI Date of 1955 Gender Female Age 64 year(s) Race Room Number 0234 Height: 65 inch, 165.1 cm Corporate ID [id number] Weight: 232 pounds, 105.2 kg # Patient Acct [id number] BSA: 2.11 m^2 BMI: 38.61 # kg/m^2 MR # [id number] Material Requirements Planning Manager Pérez Lao Interpreting Physician Abundio Aguilar Fellow Referring Nurse Practitioner Interpreting Referring Physician Moisés Rodríguez Fellow Type of Study TTE procedure:2D Echocardiogram, M-Mode, Doppler, Color Doppler, Bubble Study. Procedure Date Date: 09/01/2020 Start: 07:38 AM Study Location: [facility] Technical Quality: Fair visualization Comments:Syncope, [...] Wall E' velocity:0.07 m/s Lateral Wall E/E':8.8 [facility] [place] Transthoracic Echocardiography Report (TTE) Patient Name DENDINGER Date of Study 09/01/2020 JESSI Date of 1955 Gender Female Age 64 year(s) Race Room Number 0234 Height: 65 inch, 165.1 cm Corporate ID [id number] Weight: 232 pounds, 105.2 kg # Patient Acct [id number] BSA: 2.11 m^2 BMI: 38.61 # kg/m^2 MR # [id number] Material Requirements Planning Manager Pérez Lao Interpreting Physician Abundio Aguilar Fellow Referring Nurse Practitioner Interpreting Referring Physician Moisés Rodríguez Fellow Type of Study TTE procedure:2D Echocardiogram, M-Mode, Doppler, Color Doppler, Bubble Study. Procedure Date Date: 09/01/2020 Start: 07:38 AM Study Location: [facility] Technical Quality: Fair visualization Comments:Syncope, [...] Wall E' velocity:0.07 m/s Lateral Wall E/E':8.8 [place] Ethanolon 09-01-2020 Ethanol [Mass/Vol] mg/dL <10 mg/dL [place] Ethanol percent <0.010 <0.010 % [place] Ethanol Alcoholon 09-01-2020 Ethanol [Mass/Vol] mg/dL Normal <10 [facility] Comment on above: Performed By: #### E RTPF #### [address] [id number] Portal Architect: Dheeraj Garcia MD Ethanol percent <0.010 Normal <0.010 [facility] Comment on above: Performed By: #### E RTPF #### [address] [address]2008 Portal Architect: Dheeraj Garcia MD HCG Qualitative, Serumon hCG Qual Negative NEGATIVE [place] Comment on above: Specimens with hCG l evels near the threshold of the test (25 mIU/mL) may give a negative or indeterminate result. In such cases, another test should be performed with a new specimen in 48-72 hours. If early is suspected clinically in this setting, correlation with quantitative serum b-hCG level is suggested. [facility] has confirmed the use of plasma for this test. This has not been cleared or approved by the U.S. Food and Drug Administration. The FDA has determined that such clearance is not necessary. HCG Screen, Bloodon 09-01-20 20 HCG Qn Negative Normal NEG [facility] Comment on above: Result Comment: Spec imens with hCG levels near the threshold of the test (25 mIU/mL) may give a negative or indeterminate result. In such cases, another test should be performed with a new specimen in 48-72 hours. If early is suspected clinically in this setting, correlation with quantitative serum b-hCG level is suggested. [facility] has confirmed the use of plasma for this test. This has not been cleared or approved by the U.S. Food and Drug Administration. The FDA has determined that such clearance is not necessary. Performed By: #### E RTPF #### [facility] [address] [place], [place] [id number] Portal Architect: Dheeraj Garcia MD Hematologyon 09-01-2020 WBC (Bld) [#/Vol] DUPLICATE ORDER per 100 WBC [place] Hemoglobin A1Con 09-01-2020 HbA1c (Bld) [Mass fraction] 151 mg/dL Normal [facility] Comment on above: Result Comment: The ADA and AACC recommend providing the estimated average glucose result to permit better patient understanding of their HBA1c result. Performed By: #### E RTPF #### [address] [id number] Portal Architect: Dheeraj Garcia MD HbA1c (Bld) [Mass fraction] 6.9 % High 4.0-6.0 [facility] Comment on above: Performed By: #### E RTPF #### [facility] [place], [place] [id number] Portal Architect: Dheeraj Garcia MD Hemoglobin A1con 09-01-2020 Glucose [Mass/Vol] 151 mg/dL [place] Comment on above: The ADA and AACC rec ommend providing the estimated average glucose result to permit better patient understanding of their HBA1c result. HbA1c (Bld) [Mass fraction] 6.9 % High 4 - 6 % [place] Interpretation and review of laboratory results Abnormal [place] Lipid Profileon 09-01-2020 Cholesterol [Mass/Vol] 123 mg/dL Normal <200 [facility] Comment on above: Result Comment: Cholesterol Guidelines: <200 Desirable 200-240 Borderline >240 Undesirable Performed By: #### E RTPF #### [address] [address] Portal Architect: Dheeraj Garcia MD Cholesterol in HDL [Mass/Vol] 43 mg/dL Normal >40 [facility] Comment on above: Result Comment: HDL Guidelines: <40 Undesirable 40-59 Borderline >59 Desirable Performed By: #### E RTPF #### [address] [address] Portal Architect: Dheeraj Garcia MD Cholesterol in LDL [Mass/Vol] 50 mg/dL Normal 0-130 [facility] Comment on above: Result Comment: LDL Guidelines: <100 Desirable 100-129 Near to/above Desirable 130-159 Borderline >159 Undesirable Direct (measured) LDL and calculated LDL are not interchangeable tests. Performed By: #### E RTPF #### [address] [address] Portal Architect: Dheeraj Garcia MD Cholesterol.total/Ch olesterol in HDL [Mass ratio] 2.9 {ratio} Normal <5 [facility] Comment on above: Performed By: #### E RTPF #### [facility] [address] [place] [address] Portal Architect: Dheeraj Garcia MD Triglyceride [Mass/Vol] 149 mg/dL Normal <150 [facility] Comment on above: Result Comment: Triglyceride Guidelines: <150 Desirable 150-199 Borderline 200-499 High >499 Very high Based on AHA Guidelines for fasting triglyceride, August 2012. Performed By: #### E RTPF #### [facility] [address] [place] [address] Portal Architect: Dheeraj Garcia MD Cholesterol in VLDL [Mass/Vol] NOT REPORTED Normal 1-30 [facility] Comment on above: Performed By: #### E RTPF #### [facility] [address] [place], [place] [id number] Portal Architect: Dheeraj Garcia MD Lipid panel - fastingon 08-17 Cholesterol [Mass/Vol] 123 mg/dL <200 [place] Comment on above: Cholesterol Guidelines: <200 Desirable 200-240 Borderline >240 Undesirable Cholesterol in HDL [Mass/Vol] 43 mg/dL >40 [place] Comment on above: HDL Guidelines: <40 Undesirable 40-59 Borderline >59 Desirable Cholesterol in LDL [Mass/Vol] 50 mg/dL 0 - 130 mg/dL [place] Comment on above: LDL Guidelines: <100 Desirable 100-129 Near to/above Desirable 130-159 Borderline >159 Undesirable Direct (measured) LDL and calculated LDL are not interchangeable tests. Cholesterol in VLDL [Mass/Vol] NOT REPORTED 1 - 30 mg/dL [place] Cholesterol.total/Ch olesterol in HDL [Mass ratio] 2.9 {ratio} <5 [place] Triglyceride [Mass/Vol] 149 mg/dL <150 [place] Comment on above: Triglyceride Guidelines: <150 Desirable 150-199 Borderline 200-499 High >499 Very high Based on AHA Guidelines for fasting triglyceride, August 2012. Metabolic Panelon 09-01-2020 GFR/1.73 sq M predicted among non-blacks MDRD (S/P/Bld) [Vol rate/Area] DUPLICATE ORDER [place] TRAUMA PANELon 09-01-2020 Hubert Test NOT REPORTED [place] Anion gap [Moles/Vol] DUPLICATE ORDER mmol/L [place] aPTT Coag (Bld) [Time] 27.5 s [place] Comment on above: IV Heparin Therapy Range: 48.6-77.8 aPTT Coag (Bld) [Time] 37.0 s [place] Blood Bank Specimen BILL FOR SERVICES PERFORMED [place] Carboxyhemoglobin 0.6 % 0 - 5 % [place] Comment on above: Reference Range: Non-Smokers 0-2% Average Smoker 2-4% Heavy Smoker <10% Chloride [Moles/Vol] DUPLICATE ORDER mmol/L [place] CO2 [Moles/Vol] DUPLICATE ORDER mmol/L [place] Creatinine [Mass/Vol] DUPLICATE ORDER mg/dL [place] Erythrocyte distribution width (RBC) [Ratio] DUPLICATE ORDER % [place] Ethanol [Mass/Vol] Order moved to [facility] draw time. [id number] mg/dL [place] Ethanol percent Order moved to [facility] draw time. [id number] % [place] FIO2 UNKNOWN [place] GFR DUPLICATE ORDER >60 mL/min [place] GFR Non- DUPLICATE ORDER >60 mL/min [place] Glucose [Mass/Vol] DUPLICATE ORDER mg/dL [place] hCG Qual Order moved to [facility] draw time. [id number] NEGATIVE [place] HCO3, Venous 27.6 mmol/L 24 - 30 mmol/L [place] Hematocrit (Bld) [Volume fraction] DUPLICATE ORDER % [place] Hemoglobin (Bld) [Mass/Vol] DUPLICATE ORDER g/dL [place] INR Coag (PPP) [Relative time] 1.0 {INR} [place] Comment on above: Therapeutic Range: Moderate Anticoagulant Intensity: INR = 2.0-3.0 High Anticoagulant Intensity: INR = 2.5-3.5 Interpretation and review of laboratory results Abnormal [place] MCH (RBC) [Entitic mass] DUPLICATE ORDER pg [place] MCHC (RBC) [Mass/Vol] DUPLICATE ORDER g/dL [place] MCV (RBC) [Entitic vol] DUPLICATE ORDER fL [place] Methemoglobin NOT REPORTED 0 - 1.5 % [place] Mode NOT REPORTED [place] Negative Base Excess, Christo NOT REPORTED 0 - 2 mmol/L [place] NOTIFICATION NOT REPORTED [place] NOTIFICATION TIME NOT REPORTED [place] O2 Device/Flow/% NOT REPORTED [place] Oxygen saturation in Blood 43.1 % Low 60 - 85 % [place] Oxyhemoglobin NOT REPORTED 95 - 98 % [place] pCO2, Christo 48.8 [place] pCO2, Christo, Temp Adj NOT REPORTED [place] Peep/Cpap NOT REPORTED [place] pH, Christo 7.371 [place] pH, Christo, Temp Adj NOT REPORTED [place] Platelet mean volume (Bld) [Entitic vol] DUPLICATE ORDER fL [place] Platelets (Bld) [#/Vol] DUPLICATE ORDER k/uL [place] pO2, Christo 23.6 Low [place] pO2, Christo, Temp Adj NOT REPORTED [place] Positive Base Excess, Christo 2.1 mmol/L High 0 - 2 mmol/L [place] Potassium [Moles/Vol] DUPLICATE ORDER mmol/L [place] PSV NOT REPORTED [place] PT Coag (PPP) [Time] 10.4 s [place] Pt. Position NOT REPORTED [place] RBC (Bld) [#/Vol] DUPLICATE ORDER m/uL [place] Sample Site NOT REPORTED [place] Set Rate NOT REPORTED [place] Sodium [Moles/Vol] DUPLICATE ORDER mmol/L [place] Text for Respiratory NOT REPORTED [place] Total Hb NOT REPORTED 12 - 16 g/dl [place] Total Rate NOT REPORTED [place] Urea nitrogen [Mass/Vol] DUPLICATE ORDER mg/dL [place] VT NOT REPORTED [place] Trauma Profileon 09-01-2020 aPTT Coag (Bld) [Time] 27.5 s Normal 20.5-30.5 [facility] Comment on above: Result Comment: IV Heparin Therapy Range: 48.6-77.8 Performed By: #### E RTPF #### [facility] [address] [place] [address] Portal Architect: Dheeraj Garcia MD INR Coag (PPP) [Relative time] 1.0 {INR} Normal [facility] Comment on above: Result Comment: Therapeutic Range: Moderate Anticoagulant Intensity: INR = 2.0-3.0 High Anticoagulant Intensity: INR = 2.5-3.5 Performed By: #### E RTPF #### [address] [address] Portal Architect: Dheeraj Garcia MD PT Coag (PPP) [Time] 10.4 s Normal 9.0-12.0 [facility] Comment on above: Performed By: #### E RTPF #### [address] [address] Portal Architect: Dheeraj Garcia MD Body Temp. 37.0 [facility] Comment on above: Performed By: #### E RTPF #### [address] [address] Portal Architect: Dheeraj Garcia MD Carboxy Hgb 0.6 % Normal 0-5 [facility] Comment on above: Result Comment: Reference Range: Non-Smokers 0-2% Average Smoker 2-4% Heavy Smoker <10% Performed By: #### E RTPF #### [address] [address] Portal Architect: Dheeraj Garcia MD FIO2 UNKNOWN Normal [facility] Comment on above: Performed By: #### E RTPF #### [address] [address] Portal Architect: Dheeraj Garcia MD HCO3 (Bld) [Moles/Vol] 27.6 mmol/L Normal 24-30 [facility] Comment on above: Performed By: #### E RTPF #### [address] [address] Portal Architect: Dheeraj Garcia MD Oxygen (Bld) [Partial pressure] 23.6 mm[Hg] Low 30-50 [facility] Comment on above: Performed By: #### E RTPF #### [address] [address] Portal Architect: Dheeraj Garcia MD Oxygen saturation in Blood 43.1 % Low 60.0-85.0 [facility] Comment on above: Performed By: #### E RTPF #### [address] [address] Portal Architect: Dheeraj Garcia MD pCO2 48.8 Normal 39-55 [facility] Comment on above: Performed By: #### E RTPF #### [address] [address] Portal Architect: Dheeraj Garcia MD pH (Bld) 7.371 [pH] Normal 7.320-7.42 0 [facility] Comment on above: Performed By: #### E RTPF #### [address] [address] Portal Architect: Dheeraj Garcia MD Positive Base Excess 2.1 mmol/L High 0.0-2.0 [facility] Comment on above: Performed By: #### E RTPF #### [address] [address] Portal Architect: Dheeraj Garcia MD Hubert Test NOT REPORTED Normal [facility] Comment on above: Performed By: #### E RTPF #### [address] [address] Portal Architect: Dheeraj Garcia MD Methemoglobin NOT REPORTED Normal 0.0-1.5 [facility] Comment on above: Performed By: #### E RTPF #### [address] [address] Portal Architect: Dheeraj Garcia MD Mode NOT REPORTED Normal [facility] Comment on above: Performed By: #### E RTPF #### [address] [address] Portal Architect: Dheeraj Garcia MD Negative Base Excess NOT REPORTED Normal 0.0-2.0 [facility] Comment on above: Performed By: #### E RTPF #### [address] [address] Portal Architect: Dheeraj Garcia MD Notification Time NOT REPORTED Normal [facility] Comment on above: Performed By: #### E RTPF #### [address] [address] Portal Architect: Dheeraj Garcia MD Notification: NOT REPORTED Normal [facility] Comment on above: Performed By: #### E RTPF #### [address] [address] Portal Architect: Dheeraj Garcia MD O2 Device/Flow/% NOT REPORTED Normal [facility] Comment on above: Performed By: #### E RTPF #### [address] [address] Portal Architect: Dheeraj Garcia MD Oxyhemoglobin NOT REPORTED Normal 95.0-98.0 [facility] Comment on above: Performed By: #### E RTPF #### [facility] [address] [place] [address] Portal Architect: Dheeraj Garcia MD Pco2 Adj'd for Temp. NOT REPORTED Normal 39-55 [facility] Comment on above: Performed By: #### E RTPF #### [address] [address] Portal Architect: Dheeraj Garcia MD PEEP/CPAP NOT REPORTED Normal [facility] Comment on above: Performed By: #### E RTPF #### [address] [address] Portal Architect: Dheeraj Garcia MD pH Adjst'd for Temp. NOT REPORTED Normal 7.320-7 .42 0 [facility] Comment on above: Performed By: #### E RTPF #### [address] [address] Portal Architect: Dheeraj Garcia MD pO2 Adj'd for Temp. NOT REPORTED Normal 30-50 [facility] Comment on above: Performed By: #### E RTPF #### [address] [address] Portal Architect: Dheeraj Garcia MD PSV NOT REPORTED Normal [facility] Comment on above: Performed By: #### E RTPF #### [address] [address] Portal Architect: Dheeraj Garcia MD Pt. Position NOT REPORTED Normal [facility] Comment on above: Performed By: #### E RTPF #### [address] [address] Portal Architect: Dheeraj Garcia MD Set Rate NOT REPORTED Normal [facility] Comment on above: Performed By: #### E RTPF #### [address] [address] Portal Architect: Dheeraj Garcia MD Site Drawn NOT REPORTED Normal [facility] Comment on above: Performed By: #### E RTPF #### [address] [address] Portal Architect: Dheeraj Garcia MD Text for Respiratory NOT REPORTED Normal [facility] Comment on above: Performed By: #### E RTPF #### [facility] [place] [address] Portal Architect: Dheeraj Garcia MD Total Hb NOT REPORTED Normal 12.0-16.0 [facility] Comment on above: Performed By: #### E RTPF #### [address] [address] Portal Architect: Dheeraj Garcia MD Total Rate NOT REPORTED Normal [facility] Comment on above: Performed By: #### E RTPF #### [address] [address] Portal Architect: Dheeraj Garcia MD VT NOT REPORTED Normal [facility] Comment on above: Performed By: #### E RTPF #### [address] [address] Portal Architect: Dheeraj Garcia MD Blood Bank BILL FOR SERVICES PERFORMED Normal [facility] Comment on above: Performed By: #### E RTPF #### [address] [address] Portal Architect: Dheeraj Garcia MD CT CERVICAL SPINE WO [...] Krishna Martell DO 08/30/20 Final result Normal [facility] CT CHEST ABDOMEN PELVIS W CO [...] Brenda Sheldon MD 08/30/20 Final result Normal [facility] CT LUMBAR SPINE TRAUMA RECON STRUCTIONon [...] Krishna Martell DO 08/30/20 Final result Normal [facility] CT THORACIC SPINE TRAUMA REC ONSTRUCTIONon [...] Krishna Martell DO 08/30/20 Final result Normal [facility] CTA HEAD NECK W CONTRASTon 1 [...] Dom Zhong MD 08/30/20 Final result Normal [facility] MRI LIMITED BRAINon 08-31-20 20 MRI [...] Hector Martinez MD 08/31/20 Final result Normal [facility] Incoming R adiant Results From [facility]/Pacs - 08/31/2020 11:56 AM EDT EXAMINATION: MRI [...] chronic microvascular disease without acute intracranial abnormality. [facility] [place] Minimal chronic microvascular disease without acute intracranial abnormality. [place] EXAMINATION: MRI OF THE BRAIN WITHOUT [...] The soft tissues demonstrate no acute abnormality. [place] Trauma Profileon 08-31-2020 Erythrocyte distribution width (RBC) [Ratio] 14.1 % Normal 11.8-14.4 [facility] Comment on above: Performed By: #### E RTPF #### [facility] [address] [place] [id number] Portal Architect: Dheeraj Garcia MD Hematocrit (Bld) [Volume fraction] 38.2 % Normal 36.3-47.1 [facility] Comment on above: Performed By: #### E RTPF #### [facility] [place] [address] Portal Architect: Dheeraj Garcia MD Hemoglobin (Bld) [Mass/Vol] 12.3 g/dL Normal 11.9-15.1 [facility] Comment on above: Performed By: #### E RTPF #### [facility] [address] [place] [id number] Portal Architect: Dheeraj Garcia MD MCH (RBC) [Entitic mass] 28.9 pg Normal 25.2-33.5 [facility] Comment on above: Performed By: #### E RTPF #### [address] [address] Portal Architect: Dheeraj Garcia MD MCHC (RBC) [Mass/Vol] 32.2 g/dL Normal 28.4-34.8 [facility] Comment on above: Performed By: #### E RTPF #### [address] [address] Portal Architect: Dheeraj Garcia MD MCV (RBC) [Entitic vol] 89.7 fL Normal 82.6-102.9 [facility] Comment on above: Performed By: #### E RTPF #### [address] [address] Portal Architect: Dheeraj Garcia MD NRBC Automated 0.0 per 100 WBC Normal 0.0 [facility] Comment on above: Performed By: #### E RTPF #### [address] [address] Portal Architect: Dheeraj Garcia MD Platelet mean volume (Bld) [Entitic vol] 10.6 fL Normal 8.1-13.5 [facility] Comment on above: Performed By: #### E RTPF #### [address] [address] Portal Architect: Dheeraj Garcia MD Platelets (Bld) [#/Vol] 268 10*3/uL Normal 138-453 [facility] Comment on above: Performed By: #### E RTPF #### [address] [address] Portal Architect: Dheeraj Garcia MD RBC (Bld) [#/Vol] 4.26 10*6/uL Normal 3.95-5.11 [facility] Comment on above: Performed By: #### E RTPF #### [address] [address] Portal Architect: Dheeraj Garcia MD WBC (Bld) [#/Vol] 8.7 10*3/uL Normal 3.5-11.3 [facility] Comment on above: Performed By: #### E RTPF #### [address] [address] Portal Architect: Dheeraj Garcia MD (cont.) [facility] Comment on above: Result Comment: Aver age GFR for 60-69 years old: 85 mL/min/1.73sq m Chronic Kidney Disease: <60 mL/min/1.73sq m Kidney failure: <15 mL/min/1.73sq m eGFR calculated using average adult body mass. Additional eGFR calculator available at: http://www.[employer]/multiple_crcl_2012.htm Performed By: #### E RTPF #### [address] [address] Portal Architect: Dheeraj Garcia MD Anion gap [Moles/Vol] 10 mmol/L Normal 9-17 [facility] Comment on above: Performed By: #### E RTPF #### [address] [address] Portal Architect: Dheeraj Garcia MD Chloride [Moles/Vol] 106 mmol/L Normal 98-107 [facility] Comment on above: Performed By: #### E RTPF #### [address] [address] Portal Architect: Dheeraj Garcia MD CO2 [Moles/Vol] 23 mmol/L Normal 20-31 [facility] Comment on above: Performed By: #### E RTPF #### [address] [place] [address] Portal Architect: Dheeraj Garcia MD Creatinine [Mass/Vol] 0.62 mg/dL Normal 0.50-0.90 [facility] Comment on above: Performed By: #### E RTPF #### [address] [address] Portal Architect: Dheeraj Garcia MD Ethanol [Mass/Vol] mg/dL Normal <10 [facility] Comment on above: Performed By: #### E RTPF #### [address] [address] Portal Architect: Dheeraj Garcia MD Ethanol percent <0.010 Normal <0.010 [facility] Comment on above: Performed By: #### E RTPF #### [address] [address] Portal Architect: Dheeraj Garcia MD GFR, Amer >60 Normal >60 [facility] Comment on above: Performed By: #### E RTPF #### [address] [address] Portal Architect: Dheeraj Garcia MD GFR,non Amer >60 Normal >60 [facility] Comment on above: Performed By: #### E RTPF #### [address] [address] Portal Architect: Dheeraj Garcia MD Glucose [Mass/Vol] 186 mg/dL High 70-99 [facility] Comment on above: Performed By: #### E RTPF #### [address] [address] Portal Architect: Dheeraj Garcia MD Potassium [Moles/Vol] 3.5 mmol/L Low 3.7-5.3 [facility] Comment on above: Performed By: #### E RTPF #### [address] [address] Portal Architect: Dheeraj Garcia MD Sodium [Moles/Vol] 139 mmol/L Normal 135-144 [facility] Comment on above: Performed By: #### E RTPF #### [address] [address] Portal Architect: Dheeraj Garcia MD Urea nitrogen [Mass/Vol] 11 mg/dL Normal 8-23 [facility] Comment on above: Performed By: #### E RTPF #### [address] [address] Portal Architect: Dheeraj Garcia MD aPTT Coag (Bld) [Time] 24.4 s Normal 20.5-30.5 [facility] Comment on above: Result Comment: IV Heparin Therapy Range: 48.6-77.8 Performed By: #### E RTPF #### [address] [address] Portal Architect: Dheeraj Garcia MD INR Coag (PPP) [Relative time] 1.0 {INR} Normal [facility] Comment on above: Result Comment: Therapeutic Range: Moderate Anticoagulant Intensity: INR = 2.0-3.0 High Anticoagulant Intensity: INR = 2.5-3.5 Performed By: #### E RTPF #### [address] [address] Portal Architect: Dheeraj Garcia MD PT Coag (PPP) [Time] 10.5 s Normal 9.0-12.0 [facility] Comment on above: Performed By: #### E RTPF #### [address] [address] Portal Architect: Dheeraj Garcia MD Body Temp. 37.0 Normal [facility] Comment on above: Performed By: #### E RTPF #### [address] [address] Portal Architect: Dheeraj Garcia MD Carboxy Hgb 2.2 % Normal 0-5 [facility] Comment on above: Result Comment: Reference Range: Non-Smokers 0-2% Average Smoker 2-4% Heavy Smoker <10% Performed By: #### E RTPF #### [address] [address] Portal Architect: Dheeraj Garcia MD FIO2 INFORMATION NOT PROVIDED Normal [facility] Comment on above: Performed By: #### E RTPF #### [address] [address] Portal Architect: Dheeraj Garcia MD HCO3 (Bld) [Moles/Vol] 23.6 mmol/L Low 24-30 [facility] Comment on above: Performed By: #### E RTPF #### [address] [address] Portal Architect: Dheeraj Garcia MD Negative Base Excess 0.8 mmol/L Normal 0.0-2.0 [facility] Comment on above: Performed By: #### E RTPF #### [address] [address] Portal Architect: Dheeraj Garcia MD Oxygen (Bld) [Partial pressure] 143.0 mm[Hg] High 30-50 [facility] Comment on above: Performed By: #### E RTPF #### [address] [address] Portal Architect: Dheeraj Garcia MD Oxygen saturation in Blood 98.6 % High 60.0-85.0 [facility] Comment on above: Performed By: #### E RTPF #### [address] [address] Portal Architect: Dheeraj Garcia MD pCO2 40.6 Normal 39-55 [facility] Comment on above: Performed By: #### E RTPF #### [facility] [address] [place] [address] Portal Architect: Dheeraj Garcia MD pH (Bld) 7.383 [pH] Normal 7.320-7.42 0 [facility] Comment on above: Performed By: #### E RTPF #### [facility] [address] [place] [address] Portal Architect: Dheeraj Garcia MD Blood Bank BILL FOR SERVICES PERFORMED Normal [facility] Comment on above: Performed By: #### E RTPF #### [address] [address] Portal Architect: Dheeraj Garcia MD Hubert Test NOT REPORTED Normal [facility] Comment on above: Performed By: #### E RTPF #### [address] [address] Portal Architect: Dheeraj Garcia MD Methemoglobin NOT REPORTED Normal 0.0-1.5 [facility] Comment on above: Performed By: #### E RTPF #### [address] [address] Portal Architect: Dheeraj Garcia MD Mode NOT REPORTED Normal [facility] Comment on above: Performed By: #### E RTPF #### [facility] [address] [place] [address] Portal Architect: Dheeraj Garcia MD Notification Time NOT REPORTED Normal [facility] Comment on above: Performed By: #### E RTPF #### [facility] [address] [place] [address] Portal Architect: Dheeraj Garcia MD Notification: NOT REPORTED Normal [facility] Comment on above: Performed By: #### E RTPF #### [address] [address] Portal Architect: Dheeraj Garcia MD O2 Device/Flow/% NOT REPORTED Normal [facility] Comment on above: Performed By: #### E RTPF #### [address] [address] Portal Architect: Dheeraj Garcia MD Oxyhemoglobin NOT REPORTED Normal 95.0-98.0 [facility] Comment on above: Performed By: #### E RTPF #### [address] [address] Portal Architect: Dheeraj Garcia MD Pco2 Adj'd for Temp. NOT REPORTED Normal 39-55 [facility] Comment on above: Performed By: #### E RTPF #### [address] [address] Portal Architect: Dheeraj Garcia MD PEEP/CPAP NOT REPORTED Normal [facility] Comment on above: Performed By: #### E RTPF #### [address] [address] Portal Architect: Dheeraj Garcia MD pH Adjst'd for Temp. NOT REPORTED Normal 7.320-7 .42 0 [facility] Comment on above: Performed By: #### E RTPF #### [address] [address] Portal Architect: Dheeraj Garcia MD pO2 Adj'd for Temp. NOT REPORTED Normal 30-50 [facility] Comment on above: Performed By: #### E RTPF #### [address] [address] Portal Architect: Dheeraj Garcia MD Positive Base Excess NOT REPORTED Normal 0.0-2.0 [facility] Comment on above: Performed By: #### E RTPF #### [address] [address] Portal Architect: Dheeraj Garcia MD PSV NOT REPORTED Normal [facility] Comment on above: Performed By: #### E RTPF #### [address] [address] Portal Architect: Dheeraj Garcia MD Pt. Position NOT REPORTED Normal [facility] Comment on above: Performed By: #### E RTPF #### [address] [address] Portal Architect: Dheeraj Garcia MD Set Rate NOT REPORTED Normal [facility] Comment on above: Performed By: #### E RTPF #### [address] [address] Portal Architect: Dheeraj Garcia MD Site Drawn NOT REPORTED Normal [facility] Comment on above: Performed By: #### E RTPF #### [address] [address] Portal Architect: Dheeraj Garcia MD Staging: NOT REPORTED Normal [facility] Comment on above: Performed By: #### E RTPF #### [address] [address] Portal Architect: Dheeraj Garcia MD Text for Respiratory NOT REPORTED Normal [facility] Comment on above: Performed By: #### E RTPF #### [address] [address] Portal Architect: Dheeraj Garcia MD Total Hb NOT REPORTED Normal 12.0-16.0 [facility] Comment on above: Performed By: #### E RTPF #### [address] [address] Portal Architect: Dheeraj Garcia MD Total Rate NOT REPORTED Normal [facility] Comment on above: Performed By: #### E RTPF #### [facility] [address] [place] [address] Portal Architect: Dheeraj Garcia MD VT NOT REPORTED Normal [facility] Comment on above: Performed By: #### E RTPF #### [facility] [address] [place] [address] Portal Architect: Dheeraj Garcia MD Type + Screenon 08-31-2020 Type + Screen Sample Expiration 09/02/2020,2359 Arm Band Number BE [id number] ABO/Rh(D) O POSITIVE Antibody Screen NEGATIVE Normal [facility] Comment on above: Performed By: #### T YS #### [address] [address] Portal Architect: Dheeraj Garcia MD XR SHOULDER LEFT (MIN [...] Delmis Adams MD 08/31/20 Final result Normal [facility] EXAMINATION: TWO XRA Y VIEWS OF THE LEFT SHOULDER 08/31/2020 8:25 am COMPARISON: None. HISTORY: ORDERING SYSTEM PROVIDED HISTORY: trauma TECHNOLOGIST PROVIDED HISTORY: trauma Reason for Exam: trauma Acuity: Acute Type of Exam: Initial FINDINGS: The bones and joints are unremarkable without definite fracture, dislocation, abnormal soft tissue calcification or bony destructive lesion [facility] [place] Unremarkable three v iew left shoulder series [place], [facility] Incoming R adiant Results From [employer] - 08/31/2020 8:46 AM EDT EXAMINATION: TWO [...] IMPRESSION: Unremarkable three view left shoulder series [place] CERVICAL SPINE WO CONTRAS Ton 08-30-2020 No evidence of an ac elsie fracture or traumatic malalignment involving the cervical spine [place] EXAMINATION: CT OF T HE CERVICAL [...] There is no prevertebral soft tissue swelling. [place] Incoming R adiant Results From [facility] - 08/30/2020 11:01 PM EDT EXAMINATION: CT [...] or traumatic malalignment involving the cervical spine [place] CHEST ABDOMEN PELVIS W CO [...] aorta. Bones/Soft Tissues: No acute osseous abnormality. [facility], [place], [facility] Incoming R adiant Results From [facility] - 08/30/2020 11:25 PM EDT EXAMINATION: CT [...] could provide further information as clinically indicated. [place] 1. No acute or traum atic intrathoracic abnormality. 2. No acute or traumatic intra-abdominal abnormality. 3. Dilation of the main pulmonary artery, suggestive of pulmonary artery hypertension. 4. Hepatic steatosis. 5. 1.6 cm left upper pole renal lesion is indeterminate, possibly a cyst. Renal protocol CT or MRI could provide further information as clinically indicated. [place] LUMBAR SPINE TRAUMA RECON STRUCTIONon [...] the upper pole of the left kidney. [place] Incoming R adiant Results From [employer] - 08/30/2020 11:26 PM EDT EXAMINATION: CT [...] or traumatic malalignment involving the lumbar spine. [place] No evidence of an ac elsie fracture or traumatic malalignment involving the lumbar spine. [place] THORACIC SPINE TRAUMA REC ONSTRUCTIONon [...] the lung bases. No pneumothorax is noted. [facility] [place], [facility] Incoming R adiant Results From [employer] - 08/30/2020 11:29 PM EDT EXAMINATION: CT [...] or traumatic malalignment involving the thoracic spine [place] No evidence of an ac elsie fracture or traumatic malalignment involving the thoracic spine [place] CTA HEAD NECK W CONTRASTon 1 Unremarkable CTA of the neck. 50% stenosis left intracranial ICA, otherwise unremarkable CTA head. [place], [facility] Incoming R adiant Results From [employer] - 08/30/2020 11:48 PM EDT EXAMINATION: CTA [...] left intracranial ICA, otherwise unremarkable CTA head. [place] EXAMINATION: CTA OF THE HEAD AND [...] fluid collection. The durán-white differentiation is maintained. [place] TYPE AND SCREENon 08-30-2020 ABO/Rh Positive [place], [place] Arm Band Number BE [id number] [place] Expiration Date 09/02/2020,2354 [place] Trauma Panelon 08-30-2020 Hubert Test NOT REPORTED [place] Anion gap [Moles/Vol] 10 mmol/L 9 - 17 mmol/L [place] aPTT Coag (Bld) [Time] 37.0 s [place] aPTT Coag (Bld) [Time] 24.4 s [place] Comment on above: IV Heparin Therapy Range: 48.6-77.8 Blood Bank Specimen BILL FOR SERVICES PERFORMED [place] Carboxyhemoglobin 2.2 % 0 - 5 % [place] Comment on above: Reference Range: Non-Smokers 0-2% Average Smoker 2-4% Heavy Smoker <10% Chloride [Moles/Vol] 106 mmol/L 98 - 10 7 mmol/L [place] CO2 [Moles/Vol] 23 mmol/L 20 - 31 mmol/L [place] Creatinine [Mass/Vol] 0.62 mg/dL 0.5 - 0.9 mg/dL [place] Erythrocyte distribution width (RBC) [Ratio] 14.1 % 11.8 - 14.4 % [place] Ethanol [Mass/Vol] mg/dL <10 mg/dL [place] Ethanol percent <0.010 <0.010 % [place] FIO2 INFORMATION NOT PROVIDED [place] GFR >60 >60 mL/min [place] GFR Non- >60 >60 mL/min [place] GFR/1.73 sq M predicted among non-blacks MDRD (S/P/Bld) [Vol rate/Area] [place] Comment on above: Average GFR for 60-6 9 years old: 85 mL/min/1.73sq m Chronic Kidney Disease: <60 mL/min/1.73sq m Kidney failure: <15 mL/min/1.73sq m eGFR calculated using average adult body mass. Additional eGFR calculator available at: http://www.[employer]/multiple_crcl_2012.htm GFR/1.73 sq M predicted among non-blacks MDRD (S/P/Bld) [Vol rate/Area] NOT REPORTED [place] Glucose [Mass/Vol] 186 mg/dL High 70 - 99 mg/dL [place] hCG Qual CANCELLED PER ED NEGATIVE [place] HCO3, Venous 23.6 mmol/L Low 24 - 30 mmol/L [place] Hematocrit (Bld) [Volume fraction] 38.2 % 36.3 - 47.1 % [place] Hemoglobin (Bld) [Mass/Vol] 12.3 g/dL 11.9 - 15.1 g/dL [place] INR Coag (PPP) [Relative time] 1.0 {INR} [place] Comment on above: Therapeutic Range: Moderate Anticoagulant Intensity: INR = 2.0-3.0 High Anticoagulant Intensity: INR = 2.5-3.5 Interpretation and review of laboratory results Abnormal [place] MCH (RBC) [Entitic mass] 28.9 pg 25.2 - 33.5 pg [place] MCHC (RBC) [Mass/Vol] 32.2 g/dL 28.4 - 34.8 g/dL [place] MCV (RBC) [Entitic vol] 89.7 fL 82.6 - 102.9 fL [place] Methemoglobin NOT REPORTED 0 - 1.5 % [place] Mode NOT REPORTED [place] Negative Base Excess, Christo 0.8 mmol/L 0 - 2 mmol/L [place] NOTIFICATION NOT REPORTED [place] NOTIFICATION TIME NOT REPORTED [place] O2 Device/Flow/% NOT REPORTED [place] Oxygen saturation in Blood 98.6 % High 60 - 85 % [place] Oxyhemoglobin NOT REPORTED 95 - 98 % [place] pCO2, Christo 40.6 [place] pCO2, Christo, Temp Adj NOT REPORTED [place] Peep/Cpap NOT REPORTED [place] pH, Christo 7.383 [place] pH, Christo, Temp Adj NOT REPORTED [place] Platelet mean volume (Bld) [Entitic vol] 10.6 fL 8.1 - 13.5 fL [place] Platelets (Bld) [#/Vol] 268 10*3/uL [place] pO2, Christo 143.0 High [place] pO2, Christo, Temp Adj NOT REPORTED [place] Positive Base Excess, Christo NOT REPORTED 0 - 2 mmol/L [place] Potassium [Moles/Vol] 3.5 mmol/L Low 3.7 - 5.3 mmol/L [place] PSV NOT REPORTED [place] PT Coag (PPP) [Time] 10.5 s [place] Pt. Position NOT REPORTED [place] RBC (Bld) [#/Vol] 4.26 10*6/uL 3.95 - 5.11 m/uL [place] Sample Site NOT REPORTED [place] Set Rate NOT REPORTED [place] Sodium [Moles/Vol] 139 mmol/L 135 - 144 mmol/L [place] Text for Respiratory NOT REPORTED [place] Total Hb NOT REPORTED 12 - 16 g/dl [place] Total Rate NOT REPORTED [place] Urea nitrogen [Mass/Vol] 11 mg/dL 8 - 23 mg/dL [place] NOT REPORTED [facility] [#/Vol] 0.0 10*3/uL 0.0 per 100 WBC [facility] W[facility] (Bld) [#/Vol] 8.7 10*3/uL [facility] PRO[facility] 03-24-2019 Protein mass conc HNO ID: [id number] Author: Kamilah Jean) Kyle Service: ? Author Type: Physician Window Decorator Type: Progress Notes Filed: 03/25/2019 10:38 AM Note Text: [facility] NOTE NAME: SHEMAR AVILA NO.: [id number] DATE OF SERVICE: 03/24/2019 [facility] DATE OF : 1955 CHIEF COMPLAINT: Skilled followup visit for discharge. Also complains of a cyst on her back. SUBJECTIVE FINDINGS: The patient was seen in her room today at [facility]. She is tentatively scheduled for discharge [...] DICTATED BY: Kamilah Wright PA-C PG/Niharika JOB# [id number] cc:[facility] Normal [facility] PROGRESSon 03-22-2019 Protein mass conc HNO ID: [id number] Author: Kamilah Wright (Pa) Service: ? Author Type: Physician Window Decorator Type: Progress Notes Filed: 03/23/2019 11:37 AM Note Text: [facility] NOTE NAME: SHEMAR AVILA NO.: [id number] DATE OF SERVICE: 03/22/2019 [facility] DATE OF : 1955 CHIEF COMPLAINT: Skilled followup visit for stroke; today complaining of heartburn. SUBJECTIVE FINDINGS: The patient was seen in the therapy department at [facility]. She reports that overall she is [...] DICTATED BY: Kamilah Wright PA-C PG/Niharika JOB# [id number] cc:Viviana Mota Normal [facility] PROGRESSon 03-19-2019 Protein mass conc HNO ID: [id number] Author: Kamilah Jean) Kyle Service: ? Author Type: Physician Window Decorator Type: Progress Notes Filed: 03/22/2019 12:17 PM Note Text: [facility] NOTE NAME: SHEMAR AVILA NO.: [id number] DATE OF SERVICE: 03/19/2019 [facility] DATE OF : 1955 CHIEF COMPLAINT: Follow up for stroke and weakness. SUBJECTIVE FINDINGS: The patient was seen in her room at [facility]. She is complaining of a headache [...] DICTATED BY: Kamilah Wright PA-C PG/Niharika JOB# [id number] cc:[facility] Normal [facility] PROGRESSon 03-17-2019 Protein mass conc HNO ID: [id number] Author: Kamilah Wright (Pa) Service: ? Author Type: Physician Window Decorator Type: Progress Notes Filed: 03/18/2019 10:28 AM Note Text: [facility] NOTE NAME: SHEMAR AVILA NO.: [id number] DATE OF SERVICE: 03/17/2019 [facility] DATE OF : 1955 CHIEF COMPLAINT: Follow up for stroke and weakness. SUBJECTIVE FINDINGS: The patient was seen in the therapy department at [facility]. She is doing very well with [...] resides with her . DICTATED BY: Kamilah Wrgiht PA-C PG/Niharika JOB# [id number] cc:Viviana Mota Normal [facility] PROGRESSon 03-15-2019 Protein mass conc HNO ID: [id number] Author: Kyra Butler Service: ? Author Type: Physician Type: Progress Notes Filed: 03/18/2019 5:07 PM Note Text: [facility] INTERMEDIATE NOTE NAME: JESSI AVILA COLEEN NO.: [id number] DATE OF SERVICE: 03/15/2019 Viviana Mota DATE OF : 1955 New Patient History and Physical HISTORY OF PRESENT ILLNESS: The patient is a 63-year-old female was admitted to us from [facility] in [place] with the diagnoses of complicated headache syndrome [...] She was then transferred to [facility] where repeat CT scan along with MRI [...] therapy. DICTATED BY: MD NELIDA Larose/Niharika JOB# [id number] cc:[facility] Normal [facility] Vital Signs Date Time Vital Sign Value Performing Clinician Facility 05-13-2024 10:43-0400 Blood Pressure Location Dom ANDREA [facility] 05-13-2024 10:43-0400 Diastolic blood pressure 75 mm[Hg] Dom MENDEZ [facility] 05-13-2024 10:43-0400 Heart rate 64 /min Dom MENDEZ [facility] 05-13-2024 10:43-0400 Respiratory rate 16 /min Dom MENDEZ [facility] 05-13-2024 10:43-0400 Systolic blood pressure 117 mm[Hg] Dom NILL [facility] 07-13-2023 11:32-0400 Body temperature 97.88 [degF] [facility] 07-13-2023 11:32-0400 Diastolic blood pressure 85 mm[Hg] [facility] 07-13-2023 11:32-0400 Heart rate 76 /min [facility] 07-13-2023 11:32-0400 Respiratory rate 18 /min [facility] 07-13-2023 11:32-0400 SaO2% (BldA) [Mass fraction] 97 % [facility] 07-13-2023 11:32-0400 Systolic blood pressure 147 mm[Hg] [facility] 02-24-2023 13:08-0400 Promise to Return Ronobir FELICIA [facility] 02-24-2023 12:00-0400 Hourly Rounding Ronobir FELICIA [facility] 02-24-2023 12:00-0400 Promise to Return Ronobir FELICIA [facility] 02-24-2023 11:56-0400 Heart rate 62 /min Ronobir FELICIA [facility] 02-24-2023 11:56-0400 SaO2% (BldA) [Mass fraction] 97 % Ronobir FELICIA [facility] 02-24-2023 11:54-0400 Diastolic blood pressure 67 mm[Hg] Ronobir FELICIA [facility] 02-24-2023 11:54-0400 Mean blood pressure 88 mm[Hg] Ronobir FELICIA [facility] 02-24-2023 11:54-0400 Systolic blood pressure 130 mm[Hg] Ronobir FELICIA [facility] 02-24-2023 11:54-0400 Body temperature 97.88 [degF] Ronobir FELICIA [facility] 02-24-2023 11:11-0400 Hourly Rounding Ronobir FELICIA [facility] 02-24-2023 11:11-0400 Promise to Return Ronobir FELICIA [facility] 02-24-2023 11:00-0400 Hourly Rounding Ronobir FELICIA [facility] 02-24-2023 07:50-0400 SaO2% (BldA) [Mass fraction] 98 % Ronobir FELICIA [facility] 02-24-2023 07:43-0400 Heart rate 61 /min Ronobir FELICIA [facility] 02-24-2023 07:43-0400 SaO2% (BldA) [Mass fraction] 98 % Ronobir FELICIA [facility] 02-24-2023 07:41-0400 Body temperature 98.06 [degF] Ronobir FELICIA [facility] 02-24-2023 07:41-0400 Diastolic blood pressure 74 mm[Hg] Ronobir FELICIA [facility] 02-24-2023 07:41-0400 Mean blood pressure 92 mm[Hg] Ronobir FELICIA [facility] 02-24-2023 07:41-0400 Systolic blood pressure 128 mm[Hg] Ronobir FELICIA [facility] 02-24-2023 03:47-0400 Blood Pressure Location Ronobir FELICIA [facility] 02-24-2023 03:47-0400 Body temperature 97.52 [degF] Ronobir FELICIA [facility] 02-24-2023 03:47-0400 Diastolic blood pressure 70 mm[Hg] Ronobir FELICIA [facility] 02-24-2023 03:47-0400 Heart rate 57 /min Ronobir FELICIA [facility] 02-24-2023 03:47-0400 Mean blood pressure 87 mm[Hg] Ronobir FELICIA [facility] 02-24-2023 03:47-0400 Respiratory rate 17 /min Ronobir FELICIA [facility] 02-24-2023 03:47-0400 Systolic blood pressure 120 mm[Hg] Ronobir FELICIA [facility] 02-24-2023 03:06-0400 Mean blood pressure 77 mm[Hg] Ronobir FELICIA [facility] 02-24-2023 03:06-0400 Respiratory rate 16 /min Ronobir FELICIA [facility] 02-24-2023 02:49-0400 Respiratory rate 16 /min Ronobir FELICIA [facility] 02-24-2023 02:04-0400 Body temperature 96.8 [degF] Ronobir FELICIA [facility] 02-24-2023 02:04-0400 Mean blood pressure 68 mm[Hg] Ronobir FELICIA [facility] 02-24-2023 01:09-0400 Body temperature 96.62 [degF] Ronobir FELICIA [facility] 02-24-2023 00:21-0400 Heart rate 58 /min Ronobir FELICIA [facility] 02-24-2023 00:06-0400 gluc 139 mg/dL Ronobir FELICIA [facility] 02-24-2023 00:06-0400 Heart rate 61 /[facility] 02-18-2022 13:50-0400 Body height 165.1 cm MD Shaikh Hernandez Work Phone: [facility] 02-18-2022 13:50-0400 Body weight 104.32 kg MD Shaikh Hernandez Work Phone: [facility] 09-01-2020 16:00-0400 BP Diastolic 85 mm[Hg] [place] 09-01-2020 16:00-0400 BP Systolic 158 mm[Hg] [facility] [place] [facility] [place] 09-01-2020 14:12-0400 Pulse (Heart Rate) 72 /min [place] 09-01-2020 13:30-0400 Respiratory rate NOT REPORTED [place] 09-01-2020 12:27-0400 Body Temperature 97.7 [degF] [place], [place] 09-01-2020 12:27-0400 Pulse Oximetry 94 % [place] 09-01-2020 07:15-0400 Respiratory rate NOT REPORTED HERM[facility]INDO [facility] [facility] Comment on above: Performed By: #### ERTPF #### [facility] [address] [place] [address] Portal Architect: Dheeraj Garcia MD 09-01-2020 04:45-0400 Respiratory Rate 15 /min Dank Rodgers [facility] [place] 08-31-2020 18:45-0400 BMI (Body Mass Index) 38.72 kg/m2 Dank Rodgers [facility] [place], [place] 08-31-2020 18:45-0400 Body weight 105.55 kg Dank Rodgers [facility] [place] , [place] 08-31-2020 18:45-0400 Height 165.1 cm Dank Rodgers [facility] , [place] 08-31-2020 00:34-0400 Respiratory rate NOT REPORTED HERMELINDO ADKINS [facility] Comment on above: Performed By: #### ERTPF #### [facility] [address] [place] [address] Portal Architect: Dheeraj Garcia MD 08-30-2020 23:08-0400 Respiratory rate NOT REPORTED Dank Rodgers [facility], [place] Encounters Encounter Date Encounter Type Care Provider Facility Start: 08-28-2026 ambulatory Arturo DOLAN Facili ty:[facility] Start: 08-26-2025 End: 08-26-2025 ambulatory Arturo DOLAN Facility:[facility] Start: 08-26-2025 End: 08-26-2025 Patient encounter procedure [facility] Start: 03-30-2025 End: 03-30-2025 ambulatory [facility] Start: 02-22-2025 End: 02-22-2025 ambulatory Arturo DOLAN Facility:[facility] Start: 02-22-2025 End: 02-22-2025 Patient encounter procedure Artuor DOLAN [facility] Start: 02-21-2025 End: 02-21-2025 ambulatory Arturo DOLAN Facility:[facility] Start: 02-07-2025 End: 02-07-2025 ambulatory Arturo DOLAN Facility:[facility] Start: 05-13-2024 End: 05-13-2024 Patient encounter procedure Dom Bates [facility] [place] Start: 12-30-2023 End: 12-30-2023 Patient encounter procedure Arturo DOLAN [facility] Start: 07-13-2023 End: 07-13-2023 Emergency department patient visit Zaki Muñoz [facility] Start: 04-15-2023 End: 04-15-[address] ROBIN PONCE . Facility:[facility] Start: 04-01-2023 End: 04-01-[address] DANK JOHNSON Facility:[facility] Start: 04-01-2023 End: 04-02-[address] DOCTOR CASTELLON Facility:[facility] Start: 03-24-2023 End: 03-25-[address] DOCTOR CASTELLON Facility:[facility] Start: 02-24-2023 End: 02-24-2023 Observation Sunshine DUARTE [facility] Start: 02-14-2023 End: 02-14-[address] ROBIN PONCE . Facility:[facility] Start: 10-05-2022 End: 10-05-[address] ZELALEM STACY Facility:[facility] Start: 09-23-2022 ambulatory SHAIKH Enio HERNANDEZ Facilit y:[facility] Start: 02-18-2022 End: 02-18-2022 Patient encounter procedure MD Shaikh Hernandez Work Phone: [facility] [place] Start: 02-18-2022 End: 02-18-2022 ambulatory Ese Tan Facility:[facility] Start: 03-21-2021 End: 03-22-2021 ambulatory REBEKA PARDO Facility:[facility] Start: 08-31-2020 End: 09-01-2020 Evaluation and management of inpatient HERMELINDO ADKINS [facility] Start: 08-30-2020 End: 09-01-2020 Evaluation and [...] CHEMICAL VTE PROPHYLAXIS HERMELINDO ADKINS Start: 08-31-2020 KNOT TIER EVAL AND TREAT HERMELINDO ADKINS Start: 08-31-2020 TOBACCO CESSATION EDUCATION HERMELINDO ADKINS Start: 08-31-2020 VITAL SIGNS HERMELINDO LUCILLE Start: 08-31-2020 VITAL SIGNS - NOTIFY HERMELINDO LUCILLE Start: 08-31-2020 PATIENT STATUS (FROM [...] Start: 11-17-2011 Angioplasty of blood vessel Dom MENDEZ Abdominal hysterectomy Fredo DUARTE Appendectomy Sunshine DUARTE [...] Start: 09-01-2021 Creatinine measurement Creatinine mo [place]itoring [place], [place] Start: 09-01-2021 HbA1c (Bld) [Mass fraction] A1C test (Diabetic or Prediabetic) [place] Start: 09-01-2021 Lipid panel Lipid screen [place], [place] Start: 09-01-2021 Potassium monitoring Potassium monit [place]ing [place] Start: 08-31-2020 Annual Wellness Visi t (AWV) Annual Wellness Visit (AWV) [place] Start: 07-18-2020 Influenza vaccination Flu vaccine (# 1) [place] Start: 2007 Screening for malign ant neoplasm of breast Breast cancer screen [place] Start: 2007 Screening for malign ant neoplasm of colon Colon cancer screen colonoscopy [place] Start: 2007 Shingles Vaccine (1 of 2) Shingles V accine (1 of 2) [place] Start: 1978 Screening for malign ant neoplasm of cervix Cervical cancer screen [place] Start: 1976 DTaP/Tdap/Td vaccine (1 - Tdap) DTaP/Tdap/Td vaccine (1 - Tdap) [place] Start: 1975 Diabetic microalbumi betzy test Diabetic microalbuminuria test [place] Start: 1972 HIV screening HIV screen [facility] [place], [place] Start: 1967 Diabetic foot examination Diabetic f [place]ot exam [place] Start: 1967 Diabetic retinal exam Diabetic retin al exam [place] Start: 1957 Hepatitis C screening Hepatitis C sc reen [place] Oxygen therapy [[facility] Data Set] Initiate Oxygen Therapy Protocol Respiratory Care Routine Daily until discontinued starting 08/31/2020 [place] Comment on above: Daily until disconti nued starting 08/31/2020 End: 08-31-2020 Speech and language therapy regime [place] Comment on above: One Time for 1 Occur rences starting 08/31/2020 until 08/31/2020 Immunizations Immunization Date Immunization Notes Care Provider Ronny pathak 09-18-2024 influenza virus vacc ine, unspecified formulation Arturo DOLAN [facility] 09-18-2024 pneumococcal 20-jeff nt conjugate vaccine Arturo DOLAN [facility] 12-30-2023 influenza virus vacc ine, unspecified formulation Dom MENDEZ [facility] 09-13-2021 influenza virus vacc ine, unspecified formulation Arturo DOLAN [facility] 08-17-2021 influenza virus vacc ine, unspecified formulation Sunshine DUARTE [facility] 04-19-2021 SARS-CoV-2 (COVID-19 ) mRNA-1273 vaccine Dom MENDEZ [facility] 02-15-2021 SARS-CoV-2 (COVID-19 ) Ad26 vaccine, recombinant Ronobir FELICIA [facility] 02-15-2021 SARS-CoV-2 (COVID-19 ) mRNA BNT-162b2 vax Dom NILL [facility] [place] 01-25-2021 SARS-CoV-2 (COVID-19 ) mRNA BNT-162b2 vax Dom NILL [facility] [place] 01-15-2021 SARS-CoV-2 (COVID-19 ) Ad26 vaccine, recombinant Ronobir FELICIA [facility] 09-19-2017 influenza virus vacc ine, unspecified formulation Arturo DOLAN [facility] 09-19-2017 pneumococcal conjuga te vaccine, 13 valent Arturo DOLAN [facility] 08-21-2016 influenza virus vacc ine, unspecified formulation Arturo DOLAN [facility] 08-21-2016 pneumococcal polysaccharide vaccine, 23 valent Arturo DOLAN [facility] Payers Date Payer Category Payer Medicare [id number] 2024 Medicare [id number] 2022 Self-pay [id number] 1959 Medicare [id number] 1.2.8 [id number] 1959 Self-pay [id number] 1957 Unknown [id number] 2.16.8 [id number] 1957 Unknown [id number] 2.16.8 40.1.296363.3.579.2.647 1957 Unknown [id number] 2.16.84 0.1.330807.3.579.2.593 1957 Unknown [id number] 2.16.84 0.1.469731.3.579.2.593 1957 Unknown [id number] 2.16.84 0.1.257676.3.579.2.593 1957 Unknown [id number] 2.16.84 0.1.158366.3.579.2.593 1957 Unknown [id number] 2.16.84 0.1.257887.3.579.2.593 1957 Unknown [id number] 2.16.84 0.1.355150.3.579.2.593 1957 Unknown [id number] 2.16.84 0.1.438438.3.579.2.593 1957 Unknown [id number] 2.16.8 40.1.736206.3.579.2.727 1957 Unknown [id number] 2.16.8 40.1.098188.3.579.2.727 1957 Unknown [id number] 2.16.8 40.1.552478.3.579.2.727 1957 Unknown [id number] 2.16.8 40.1.749155.3.579.2.727 1957 Unknown [id number] 2.16.8 40.1.760434.3.579.2.727 Unknown [id number] 2.16.8 40.1.994365.3.579.2.531 Social History Date Type Detail Facility [facility] ever smoked [place] Sex Assigned At Not on file [place] Start: 03-19-2021 Tobacco smoking stat NHIS Ex-smoker (finding) [facility] Start: 1955 Sex Assigned At Female Diamond [facility] Start: 02-24-2023 End: 08-26-2025 Tobacco smoking status Heavy tobacco smoker (finding) [facility] Comment on above: 1 pack a day Sex Assigned At Female [facility] Tobacco smoking status Never [facility] Comment on above: 1 pack a day Sexual Orientation [facility] Start: 08-22-2010 Sex Female (finding) [facility] Functional Status Date Assessment Result Facility 02-22-2025 Functional Status N/A [facility] 05-13-2024 Functional Status N/A [facility] [place] 12-30-2023 Functional Status N/A [facility] 07-13-2023 Functional Status N/A [facility] 02-24-2023 Functional Status No [facility] 02-24-2023 Functional Status [facility] Clinical Notes 02-24-2023 to 08-26-2025 Note [...] include: ?8 oz (237 mL) of milk, ugzzwpo-prwuuzkujxvt-yftej milk, and calcium-fortifiedfruit juice. Calcium-fortified means that [...] ?Spinach (cooked), rhubarb, beets, sweet potatoes, and Singaporean chard. ?Peanuts. ?Potato chips, malawian fries, and baked potatoes with skin on. ?Nuts and nut products. ?Chocolate. If you regularly take a diuretic medicine, make sure to eat at least 1 or 2 servings of fruits or vegetables that are high in potassium each day. These include: ?Avocado. ?Banana. ?Stone, prune, carrot, or tomato juice. ?Baked potato. [...] magnesium, fish oil, or vitamin B6. Take pywh-ija-aaomqcv and prescription medicines only as told by [...] Casseroles. Pizza. Lasagna. Frozen meals. Potato chips. Kittitian fries. The items listed above may not [...] provider. Document Revised: 02/13/2023 Document Reviewed: 02/13/2023 [employer] Patient Education 2023 [employer]. Follow Up Care 02/22/2025 15:10:10 With:MAGDALENO PRADO, Arturo Bates, URL Address: [facility] [address], [place] [address]- When: Unknown [facility] 08-26-2025 Note Patient Education Nephrology Dietary Guidelines [...] ? 8 oz (237 mL) of milk, jkkbaev-gcpqnvkmxhsc-zclrl milk, and calcium-fortifiedfruit juice. Calcium-fortified means that [...] Spinach (cooked), rhubarb, beets, sweet potatoes, and Singaporean chard. ? Peanuts. ? Potato chips, malawian fries, and baked potatoes with skin on. ? Nuts and nut products. ? Chocolate. ??? If you regularly take a diuretic medicine, make sure to eat at least 1 or 2 servings of fruits or vegetables that are high in potassium each day. These include: ? Avocado. ? Banana. ? Stone, prune, carrot, or tomato juice. ? Baked [...] fish oil, or vitamin B6. ??? Take wsea-ltc-iytgvdw and prescription medicines only as told by your health (more content not included)... [facility] 03-30-2025 Note [facility] Note Chief Complaint: Patient here [...] Iodinated contrast media, Aspirin, Atorvastatin, Cat/feline products, Moraga, Topiramate, Blue dye, Iodine, and Lisinopril Medications [...] Investigations: Echocardiogram : (more content not included)... [facility] 02-22-2025 Hospital Discharge instructions Patient Education 02/22/2025 [...] Up Care 02/21/2025 14:28:09 With:Arturo DOLAN Address: [address] [place], [place] [id number] Business (1) When:08/24/2025 14:55:23 [facility] 02-22-2025 Note Patient Education Custom Cystoscopy [...] you have a fever over 100 degrees [facility] 02-21-2025 Note Patient Education Pulmonary Medicine [...] require a prescription. You can also purchase ttlw-tre-kzqggfd medicines. Medicines may have nicotine in them [...] and encouragement. Call telephone quitlines, such as 5-864-NXPS-NOW, reach out to support groups, or work [...] away, not s (more content not included)... [facility] 12-30-2023 Hospital Discharge instructions [...] Address: [facility] [address] [place] [address] Business (1) When:03/29/2024 11:56:00 Comments:With a stone metabolic workup [facility] 07-13-2023 Hospital Discharge instructions Patient Education [...] to strengthen the arm. General instructions Take nlrg-jzb-lsgrngo and prescription medicines only as told by [...] provider. Document Revised: 07/19/2022 Document Reviewed: 07/19/2022 [employer]play Patient Education 2022 [employer]. 07/13/2023 12:19:06 Muscle Strain Muscle Strain A [...] is not too tight. General instructions Take vqzn-dyv-sxrdgki and prescription medicines only as told by [...] provider. Document Revised: 01/21/2022 Document Reviewed: 01/21/2022 [employer]2play Patient Education 2022 [employer]. Follow Up Care 07/13/2023 11:23:52 With:Robin Kris Address: [address] [place], [place] [id number] Business (1) When:07/16/2023 12:02:34 [facility] 07-13-2023 Evaluation + Plan note Extrac sherita from: Title:ED Note Author:Mathew Montana PA-C te:07/13/23 Shoulder pain (M25.519: Pain in unspecified shoulder) Ordered: acetaminophen-oxycodone, 1 tab(s), Oral, q6hr as needed for pain for 3 day(s), 15 tab(s), Refill(s) 0, [id number], 165, cm, 07/13/23 11:34:00 EDT, Height/Length Dosing, 95.5, kg, 07/13/23 11:34:00 EDT, Weight Dosing [facility]04-10-2023 Evaluation + Plan noteExtracted from: Title:Discharge [...] PRN With When Contact Information Robin Ponce [address] [place] [address]- Business (1) Additional Instructions: Office is closed for lunch between Noon and 1 p.m. Please contact office for follow up appointment. Thank you! SHAIKH MARY Within 5 to [address] days [address] [place] [address] Business (1) Additional Instructions: Not a patient. Syncope, Cbwl-ou-Jsgt Extracted from: Title:APSO Note Author:Leann GUNTER MD [...] heart monitor. Check orthostatic vital signs. Ordered: [facility] Care/Day Moderate 35 Minutes 50075 2. RAMA (acute kidney injury) (N17.9: Acute kidney failure, unspecified) Acute kidney injury secondary to ATN from dehydration and antihypertensives. Resolved. Treated with IV fluid. Ordered: [facility] Care/Day Moderate 35 Minutes 70575 3. Hypokalemia (E87.6: Hypokalemia) Secondary to poor oral intake. Potassium level improving to 3.4. We will give patient additional potassium chloride. Ordered: potassium chloride, 40 mEq = 2 tab(s), Tab-ER, Oral, Once, Stop date 02/24/23 10:00:00 EDT, Routine, Start date 02/24/23 10:00:00 EDT, 02/24/23 9:46:00 EDT [facility] Care/Day Moderate 35 Minutes 83502 4. Diabetes mellitus (E11.9: Type 2 diabetes mellitus without complications) Continue sliding scale insulin. Ordered: [facility] Care/Day Moderate 35 Minutes 86206 5. High cholesterol (E78.00: Pure hypercholesterolemia, unspecified) On Lipitor at home. Ordered: [facility] Care/Day Moderate 35 Minutes 62915 6. Hypertension (I10: Essential (primary) hypertension) Blood pressure on the low side of normal. 7. CAD (coronary artery disease) (I25.10: Atherosclerotic heart disease of [place] coronary artery without angina pectoris) Continue on aspirin, Plavix. 8. Aortic aneurysm (I71.9: Aortic aneurysm of unspecified site, without rupture) Status post surgery. 9. Obese (E66.9: Obesity, unspecified) Recommend therapeutic lifestyle modification changes. 10. On deep vein thrombosis (DVT) prophylaxis (Z79.899: Other oysterman (current) drug therapy) Heparin. Disposition: Home soon pending physical therapy evaluation. I discussed the diagnosis and plan of care with the patient at the bedside. Moderate level of MDM based on addressing above issues. This documentation was transcribed using voice recognition software. Several attempts were made to ensure accuracy. However inadvertent computerized clinical professor errors may be present. Leann Gunter. Hospitalist. [...] deep vein thrombosis (DVT) prophylaxis (Z79.899: Other group home (current) drug therapy) SCD, heparin Orders: [...] XR Spine Lumbosacral 2 or 3 Views [facility]04-10[facility]23 Hospital Discharge instructions Patient Education 02/24/2023 11:49:54 Syncope, Ebsx-in-Txag Syncope Syncope is when you pass out [...] pee (urine) pale yellow. General instructions Take uspa-lpx-ofxjxcx and prescription medicines only as told by [...] 04/21/2009 Document Revised: 12/16/2018 Document Reviewed: 12/16/2018 [employer] Patient Education 2019 [employer]. Follow Up Care 02/24/2023 00:01:37 With:Robin Ponce Address: [facility] [place] [address]- Business (1) When: Unknown Comments:Office is closed for lunch between Noon and 1 p.m. Please contact office for follow up appointment.Thank you! With:SHAIKH MARY Address: [address] [place] [address] Business (1) When:5 to 7 days Comments:Not a patient. [facility] Future Appointments Appointment Date:08/26/2025 09:30:00 AM Scheduled Provider:Arturo DOLAN MD Location:[facility] Appointment Type:URO Office Visit [facility] Evaluation + Plan note Future Appointments Appointment Date:08/28/2026 12:15:00 PM Scheduled Provider:Arturo DOLAN MD Location:[facility] Appointment Type:URO Office Visit [facility] evaluation noteNo assessment information available [facility] Work Phone: Hospital course Narrative No data available for this section [facility] No data available for this section [facility] [place] note No data available for this section [facility] Summary Purpose Family History No [...] Assisted Dressing Independent Toileting Assisted Feeding Independent Loan Examiner Independent Med Delivery whole Wound Care Documentation [...] Readmission: 9 Discharging to Facility/ Agency Name: [facility] FAX [address] [place] [address] Address: Phone: Fax: Dialysis Facility (if applicable) Name: Address: Dialysis Schedule: Phone: Fax: International Trade Specialist/Occupational Therapy Technician signature: EDT PHYSICIAN SECTION Prognosis: Good Condition at Discharge: Stable Rehab Potential (if transferring to Rehab): {Prognosis:[id number]} Recommended Labs or Other Treatments After Discharge: [...] called to the trauma nurse line at [phone] and please leave a message. Trauma is a life-threatening condition. Your doctor will want to closely monitor you. Be sure to goto all of your appointments. * Attachments The following attachments cannot be sent through Care Everywhere. * Fall Prevention (Iraqi) * Falls: Get Up Safely Instruction (Iraqi) * Vasovagal Syncope (Iraqi) documented in this encounter History of Present [...] 4 wheeled walker, Cane, Quad cane, Crutches, Bush And Vine Fruit Crop Farmer, Sock aid(pt reported no use of DME at baseline) ADL Assistance: Independent Homemaking Assistance: Independent Homemaking Responsibilities: Yes Meal Prep Responsibility: Primary Laundry Responsibility: Primary Cleaning Responsibility: Primary Ambulation Assistance: Independent Transfer Assistance: Independent Active Solvent Mixer: Yes Mode of Transportation: Car Occupation: Retired [...] LE was going to [facility] functional mobility. pt with no LOB [...] L LE. pt unable to identify when engineering technical writer was touching L UE (on elbow [...] activity in order to increase coordination and inspector precision strength to L hand Short term goal 6: dem SBA during functional transfers/functional mobility with LRD, as needed Therapy Time Individual Concurrent Group Co-treatment Time In 1316 Time Out 1404 Minutes 48 Variance: 40 Debi Marques OTR/L * Taya Bergeron, KNOT TIER - 09/01/2020 11:39 AM EDT Speech Language Pathology Facility/Department: [address] ORTHO/MED SURG Initial Speech/Language/Cognitive Assessment NAME: [...] who fell upon standing from the toilet carrier [employer], upon which she hit her head on the bathtub. +LOC, on Plavix. Taken to [place] where a stroke alert was initiated. CT head at 6pm today at [place] did not show intracranial bleed. Transferred to [place] for trauma and neurology work-up. Upon arrival, Pt without neurological deficit, GCS 15, c/o REYNA. Pt deemed hemodynamically stable and was sent to CT. Pain: Pain Assessment Pain Assessment: Faces Pain Level: 0 Assessment: Pt presents with mild-moderate cognitive deficits characterized by difficulty with immediate and short-term memory, verbal reasoning skills, and word associations. Pt. RESIGHINI, which may haveaffected results of evaluation. Multiple repetitions provided throughout evaluation. Pt. Presents with no dysarthria, no O/M deficits at this time. ST to follow up and provide treatment to address noted deficits. Education provided. Recommendations: Requires KNOT TIER Intervention: Yes Duration/Frequency of Treatment: 3-5X/week D/C [...] 1126 Minutes 12 Completed by: Debi Andrade Pinion Staker Clinician Cosigned By: Taya Bergeron M.A.CCC/KNOT TIER 09/01/2020 11:40 AM * Caleb Jefferson MD [...] MD 09/01/2020 4:00 PM * Nader Petit, LICENSED LOAN OFFICER - 09/01/2020 10:02 AM EDT Physical Therapy Facility/Department: [address] ORTHO/MED SURG Daily Treatment Note NAME: [...] Safe use of RW Barriers to Learning: RESIGHINI REQUIRES PT FOLLOW UP: Yes Activity Tolerance [...] 44 Timed Code Treatment Minutes: 40 Minutes LICENSED LOAN OFFICER returned to pt's room to have her attempt stair management, to return home safely Individual Individual Time In 1140 Time Out 1205 Minutes 25 Timed Code Treatment Minutes: 9 Minutes (a doctor interrupted PT, to assess the pt) Nader Petit, LICENSED LOAN OFFICER * Debi Marques OT - 09/01/2020 8:34 [...] [facility] Initial Assessment NAME: Jessi [...] Ambulation Assistance: Independent Transfer Assistance: Independent Active Solvent Mixer: Yes Mode of Transportation: Car Occupation: Retired [...] AUTHOR 04/06/2019 [facility] DATE CREATED AUTHOR AUTHOR'S ORGANIZ ATION 09/12/2020 [facility] DATE CREATED AUTHOR AUTHOR'S ORGANIZ ATION 03/28/2021 [facility] DATE CREATED AUTHOR AUTHOR'S ORGANIZ ATION 04/25/2023 [facility] DATE CREATED AUTHOR AUTHOR'S ORGANIZ ATION 07/04/2024 [facility] DATE CREATED AUTHOR AUTHOR'S ORGANIZ ATION 04/04/2025 [facility] DATE CREATED AUTHOR AUTHOR'S ORGANIZ ATION 08/28/2025 [facility] Reason for Visit (unrecogniz ed section and content) Reason Comments Fall Trauma Status Reason Specialty Diagnoses / Procedures Referre d By Contact Referred To Contact Diagnoses Syncope and collapse Procedures Syncope and collapse Hermelindo Adkins MD [address] [address], [address] [place] [address] [facility] Care Teams (unrecognized sec tion [...] BE BASED ON THE PRIMARY CLINICAL RECORDS. [facility] [employer] [facility]. provides no warranty or guarantee of the accuracy or completeness of information in this document.
--- NOTE | 2025-09-01 10:38 | XR_ITS ---
The [address] [address] Patient Name: MARTHA AVILA MRN: [id number] date: 1955 Sex: F Assigned Patient Location: [facility] Current Patient Location: [facility] Accession/Order Number: [id number] Exam Date: 09/01/2025 10:30 Report Date: 09/01/2025 11:41 At the request of: KALYN DOLAN MD Procedure: XR abdomen 1V SINGLE VIEW ABDOMEN COMPARISON: CT 04/21/2024 CLINICAL DATA: Follow-up kidney stones. Supine views of the abdomen and pelvis were obtained. There is air and stool along the colon. There is also small bowel air, without disproportionate distention. Both kidneys are partially obscured. No obvious radiopaque renal or ureteral stones are identified. No soft tissue masses are seen. There is subtle levoscoliotic curvature and degenerative changes at the spine. XR/XR abdomen 1V IMPRESSION: NO DEFINITE RADIOPAQUE STONES. Impression dictated by: Dona Bernal M.D. 09/01/2025 11:41 AM Dictation Location: [place] [address] Electronically authenticated by: [id number] Y Date: 09/01/2025 11:41
== END 2025-09-01 10:17 | disposition home or self-care (01) ==
LOC: RAD 10:18
PROVIDERS: PCP Family Medicine; Visit Provider Urology
DX: Z12.31 Encounter for screening mammogram for malignant neoplasm of breast (principal); Z80.3 Family history of malignant neoplasm of breast; N20.0 Calculus of kidney
CPT/HCPCS: 74018; 77063; 77067